=== PATIENT | female | born 1955 | race Caucasian/White ===

== ENCOUNTER 2023-08-06 17:51 | Emergency (ER) | payer MEDICARE, BC, SELFPAY ==
[2023-08-06] VITALS (32 sets, daily range): BP systolic 104–113; BP diastolic 44–69; PULSE 46–150; TEMP 36.8; O2SAT 97; BMI 22.3
--- NOTE | 2023-08-06 17:57 | XR_ITS ---
The [address] [address] Patient Name: HILARIO CHARLES MRN: [id number] date: 1955 Sex: F Assigned Patient Location: ER Current Patient Location: ER Accession/Order Number: [id number] Exam Date: 08/06/2023 19:10 Report Date: 08/06/2023 20:01 At the request of: ROMARIO LEVIN Procedure: XR chest 1V EXAM: XR chest 1V HISTORY: SOB COMPARISON: None. TECHNIQUE: Single AP radiograph of the chest FINDINGS: No pneumothorax or effusion. Patchy opacity at the right lower lobe could reflect an infectious process versus atelectasis. Normal heart size. No acute osseous abnormality. XR/XR chest 1V IMPRESSION: Patchy opacity of the right lower lobe may reflect developing infectious process or atelectasis. Electronically authenticated by: MADDY MARTINEZ Date: 08/06/2023 20:01
--- NOTE | 2023-08-06 17:57 | ECG_ITS ---
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
--- NOTE | 2023-08-06 18:01 | ED.GENADUL1 ---
HPI HPI - General Adult General Chief complaint: Upper Respiratory Infection Stated complaint: SOB Time Seen by Provider: 08/06/23 17:57 Source: patient and caregiver Mode of arrival: ambulance Limitations: no limitations History of Present Illness HPI narrative: Patient is a 68-year-old female with a history of COPD, diabetes who presents from the [facility] with concerns of altered mental status, hypotension. Patient states she lives at home until she developed a urinary tract infection and difficulty breathing. Patient reports being hospitalized at [facility] before being transferred to the [place]. Patient reports no pain or discomfort, states she is chronically short of breath. [facility] group home staff became concerned when her blood pressure was 80 systolic. Patient admits to harsh cough. She denies measurable fever. Patient is on oxygen 2 L/min chronically and has been up to 3 to To help with hypoxia. She had a ? Chest x-ray today showing multifocal infiltrates possibly viral and patient had lab work drawn but has not yet resulted. Patient is pleasant, alert and oriented to person and place and time and recent events, her blood pressure is improved after receiving a 500 mL bolus from the group home staff prior to transfer.Patient has no other concerns, reports she has a granddaughter graduating from [employer] this week. Onset (ago): day(s) Related Data Home Medications ?Medication ?Instructions ?Recorded ?Confirmed albuterol sulfate 90 mcg/actuation inhalation 08/06/23 aerosol inhaler (Ventolin HFA) alpha lipoic acid 600 mg capsule 600 mg PO DAILY 08/06/23 08/06/23 amantadine HCl 100 mg tablet mg 08/06/23 aspirin 81 mg capsule 81 mg PO DAILY 08/06/23 08/06/23 atorvastatin 40 mg tablet mg 08/06/23 calcium carbonate 600 mg-vitamin 1 tab PO DAILY 08/06/23 08/06/23 D3 5 mcg (200 unit) tablet (Calcium 600 + D(3)) cetirizine 10 mg tablet (24Hour 10 mg PO DAILY PRN allergy symptoms 08/06/23 08/06/23 Allergy) cholecalciferol (vitamin D3) 25 25 mcg PO DAILY 08/06/23 08/06/23 mcg (1,000 unit) capsule (Vitamin D3) cyclobenzaprine 10 mg tablet 10 mg PO DAILY 08/06/23 08/06/23 fluticasone fur. 100 mcg-umeclid 1 inh inhalation DAILY 08/06/23 08/06/23 62.5 mcg-vilant 25 mcg inhalat.powder (Trelegy Ellipta) furosemide 40 mg tablet 40 mg PO BID 08/06/23 08/06/23 furosemide 40 mg tablet (Lasix) 40 mg PO DAILY 08/06/23 08/06/23 hydrocodone-homatropine 5 mg-1.5 1 tab PO Q6H PRN pain 08/06/23 08/06/23 mg tablet insulin lispro 100 unit/mL 1 sliding scale dose subcut 08/06/23 08/06/23 subcutaneous pen (Humalog KwikPen USEASDIRECTD (U-100) Insulin) levetiracetam 250 mg tablet 250 mg PO BID 08/06/23 08/06/23 (Keppra) levothyroxine 150 mcg capsule 150 mcg PO DAILY 08/06/23 08/06/23 lisinopril 5 mg tablet 5 mg PO DAILY 08/06/23 08/06/23 loratadine 10 mg tablet (Allergy 10 mg PO DAILY 08/06/23 08/06/23 Relief (loratadine)) omega-3 fatty acids 1,000 mg PO DAILY 08/06/23 08/06/23 oxcarbazepine 300 mg tablet 300 mg PO TID 08/06/23 08/06/23 potassium chloride 20 mEq 20 meq PO DAILY 08/06/23 08/06/23 tablet,extended release (K-Tab) prednisone 20 mg tablet 20 mg PO DAILY 08/06/23 08/06/23 pregabalin 200 mg capsule (Lyrica) 200 mg PO TID 08/06/23 08/06/23 ropinirole 1 mg tablet 1 mg PO DAILY 08/06/23 08/06/23 umeclidinium 62.5 mcg-vilanterol 1 inh inhalation DAILY 08/06/23 08/06/23 25 mcg/actuation powdr for inhalation (Anoro Ellipta) Allergies Allergy/AdvReac Type Severity Reaction Status Date / Time Penicillins Allergy Severe Verified 08/06/23 17:57 Sulfa (Sulfonamide AdvReac Unknown Verified 08/06/23 19:01 Antibiotics) Opioid HPI Opioid Management Most Recent Opioid Data: No Data to Display Review of Systems ROS Constitutional Denies: fever or chills Eyes Denies: change in vision Ears, nose, mouth, and throat Denies: throat pain or neck pain Cardiovascular Denies: chest pain or palpitations Respiratory Reports: shortness of breath, cough and wheezing Gastrointestinal Denies: abdominal pain, nausea or vomiting Genitourinary Denies: painful urination or urinary frequency Musculoskeletal Denies: back pain, neck pain or extremity pain Integumentary/Breast Denies: rash, itching or redness Neurological Denies: headache or numbness in extremities Endocrine Denies: excessive urination Allergic/Immunologic Denies: hives Exam Narrative Exam Narrative: Nurses notes and vital signs reviewed and patient is not hypoxic on 3lpm Nasal canula. General: The patient appears well and in no apparent distress.Speaking in full sentences Patient is resting comfortably on cart. Skin: Warm, dry, no pallor noted. Head: Normocephalic, atraumatic Neck: Supple, trachea mid-line, no tenderness, no lymphadenopathy Eye: Pupils are equal, round and reactive to light, EOMI Ears, Nose, Mouth, and Throat: TM are clear, normal light reflex, oral mucosa is moist, no posterior oropharynx erythema or hypertrophy, uvula is mid-line Cardiovascular: Regular Rate and Rhythm Respiratory: Patient is in no distress, no accessory muscle use, lungs With slight expiratory wheeze , rhonci bilateral bases. Chest Wall: no tenderness, Denies pleuritic pain. Back: non-tender, no CVA tenderness Musculoskeletal: normal ROM, no tenderness, no swelling, Edema, Charcot foot noted GI: Normal bowel sounds, no tenderness to palpation, no masses appreciated. No rebound, guarding, or rigidity noted. Neurological: A&O x4 Psychiatric: Cooperative Constitutional Vital Signs, click to edit/add: Last Vital Signs Temp 98.3 F 08/06/23 17:52 Pulse 60 08/06/23 20:00 Resp 23 H 08/06/23 20:00 BP 113/54 08/06/23 18:00 Pulse Ox 97 08/06/23 18:20 O2 Del Method Nasal Cannula 08/06/23 18:15 O2 Flow Rate 2 08/06/23 18:15 Course Vital Signs Vital signs: Vital Signs Temperature 98.3 F 08/06/23 17:52 Pulse Rate 59 L 08/06/23 17:52 Respiratory Rate 20 08/06/23 17:52 Blood Pressure 104/49 08/06/23 17:52 Pulse Oximetry 97 08/06/23 17:52 Oxygen Delivery Method Room Air 08/06/23 17:52 Temperature 98.3 F 08/06/23 17:52 Pulse Rate 60 08/06/23 20:00 Respiratory Rate 23 H 08/06/23 20:00 Blood Pressure 113/54 08/06/23 18:00 Pulse Oximetry 97 08/06/23 18:20 Oxygen Delivery Method Nasal Cannula 08/06/23 18:15 Oxygen Delivery Flow Rate 2 08/06/23 18:15 Medical Decision Making MDM Narrative Medical decision making narrative: Patient presents with group home staff concerned about hypotension and bradycardia, patient's heart rate mid to upper 50s and occasionally 60. Blood pressure has improved after 500 mL IV fluid bolus. Patient is not hypoxic at current time and does not appear altered mentally. Given her recent history a sepsis lab evaluation will be checked. Patient is a full code.Patient reports she quit smoking with recent illness a few weeks ago. , She is in no distress resting semirecumbent. She denies feeling short of breath, her vitals have been stable. Unfortunately patient's kidney function appears worsened from her prior hospitalization and her calcium level appears extremely high. We are suspicious with her smoking history that there may be an underlying malignancy. Patient given 1 L IV fluids here, we repeating calcium level. Discussed case with hospitalist 8pm. who would like her calcium level improved prior to admission however I do not feel we will be able to lower it substantially just with IV hydration in the ER given her prior history of flash pulmonary edema and she may require additional long-term therapies. Patient agreeable with transfer back to [facility] and I have reached out to the hospitalist as they may be able to do dialysis or other treatments to help with her electrolyte dysfunction and further work up metabolically Spoke with Dr. AZEVEDO At [facility]. We discussed patient's elevated calcium, infiltrate on chest x-ray, IV antibiotics. Agreeable to transfer for further treatment and continuity of care. Medical Records Medical records reviewed: Yes I reviewed the patient's medical records Medical records narrative: Patient was admitted to [facility] on 07/25 and discharged on 07/29,Patient was admitted there with sepsis, COPD exacerbation, acute kidney failure, urinary retention,Achieved 3 days of IV ceftriaxone, IV Solu-Medrol, Hanson catheter, Which was able to be removed with voiding trial Was discharged to skilled facility on prednisone taper, Vital signs at discharge were pulse of 60, blood pressure 107/62. Pulse ox 94% 5.3, hemoglobin 10.7, platelets were 158. Sodium 137, potassium 3.8, carbon dioxide was 37, anion gap 8.8, BUN 24, creatinine 0.97. Lab Data Lab results reviewed: Yes I reviewed the patient's lab results Labs: Lab Results 08/06/23 08/06/23 08/06/23 Range/Units 18:19 18:21 20:12 WBC 13.7 H (4.0-11.0) 10^3/uL RBC 4.69 (4.20-5.40) 10^6/uL Hgb 13.7 (12.0-16.0) g/dL Hct 42.7 (36.0-48.0) % MCV 91.0 (81.0-99.0) fL MCH 29.2 (26.7-34.0) pg MCHC 32.1 (29.9-35.2) g/dL RDW 12.8 (11.0-15.0) % Plt Count 328 (150-450) 10^3/uL MPV 10.2 (9.5-13.5) fL Neut % (Auto) 86.5 H (43.0-75.0) % Lymph % (Auto) 7.7 L (20.5-60.0) % [place] % (Auto) 4.2 (1.7-12.0) % Eos % (Auto) 0.7 L (0.9-7.0) % Baso % (Auto) 0.4 (0.2-2.0) % Neut # (Auto) 11.8 H (1.4-6.5) 10^3/uL Lymph # (Auto) 1.1 L (1.2-3.8) 10^3/uL [place] # (Auto) 0.6 (0.3-0.8) 10^3/uL Eos # (Auto) 0.1 (0.0-0.7) 10^3/uL Baso # (Auto) 0.1 (0.0-0.1) 10^3/uL Abs Immat Gran (auto) 0.07 H (0.00-0.03) 10^3/uL Imm/Tot Granulo (auto) 0.5 (0.0-0.5) % PT 10.7 (9.0-11.6) sec INR 1.01 APTT 23.5 (22.3-36.2) sec VBG pH 7.401 (7.330-7.430) VBG pCO2 57.9 H (40.0-52.0) mmHg Sodium 133 L (136-145) mmol/L Potassium 4.5 (3.5-5.1) mmol/L Chloride 93 L (98-107) mmol/L Carbon Dioxide 35.8 H (21.0-32.0) mmol/L Anion Gap 8.7 BUN 67.0 H (7.0-18.0) mg/dL Creatinine 2.24 H (0.55-1.02) mg/dL Est GFR ( Amer) 26 L (>=60) Est GFR (Non-Af Amer) 22 L (>=60) BUN/Creatinine Ratio 29.9 Glucose 83 (74-106) mg/dL Lactate 1.4 (0.4-2.0) mmol/L Calcium 14.3 H* 12.8 H (8.5-10.1) mg/dL Total Bilirubin 0.5 (0.2-1.0) mg/dL AST 41 H (15-37) U/L ALT 96 H (14-59) U/L Alkaline Phosphatase 180 H (46-116) U/L Troponin I High Sens 34.0 (4.0-51.3) pg/mL NT-Pro-B Natriuret Pep 1103.0 H (<=900.0) pg/mL Total Protein 7.5 (6.4-8.2) g/dL Albumin 3.3 L (3.4-5.0) g/dL Globulin 4.2 g/dL Albumin/Globulin Ratio 0.8 Procalcitonin 0.08 (0.00-0.50) ng/mL Adenovirus (PCR) Not detected (NOT DETECTE) B. pertussis DNA (PCR) Not detected (NOT DETECTE) B.parapertussis DNA PCR Not detected (NOT DETECTE) C. pneumoniae DNA (PCR) Not detected (NOT DETECTE) Coronavirus Type OC43 Not detected (NOT DETECTE) Coronavirus Type HKU1 Not detected (NOT DETECTE) Coronavirus Type 229E Not detected (NOT DETECTE) Coronavirus Type NL63 Not detected (NOT DETECTE) Human Metapneumovir PCR Not detected (NOT DETECTE) Influenza Type A (PCR) Not detected (NOT DETECTE) Influenza Type B (PCR) Not detected (NOT DETECTE) M. pneumoniae (PCR) Not detected (NOT DETECTE) Parainfluenza PCR Not detected (NOT DETECTE) Parainfluenza 2 (PCR) Not detected (NOT DETECTE) Parainfluenza 3 (PCR) Not detected (NOT DETECTE) Parainfluenza 4 (PCR) Not detected (NOT DETECTE) RSV (RT-PCR) Not detected (NOT DETECTE) Entero/Rhino (PCR) Not detected (NOT DETECTE) SARS-CoV-2 (PCR) Not detected (NOT DETECTE) Imaging Data Chest x-ray: Radiologist's impression: ITS Impressions Chest X-Ray 08/06/23 17:57 IMPRESSION: Patchy opacity of the right lower lobe may reflect developing infectious process or atelectasis. Electronically authenticated by: MADDY MARTINEZ Date: 08/06/2023 20:01 ECG Data Attestation: I personally reviewed and interpreted this ECG as follows: Interpretation: EKG interpretation: Emergency Department physician interpretation, Sinus bradycardia 47, no ectopy, no ST segment elevation, normal axis. Discharge Plan Discharge Chief Complaint: Upper Respiratory Infection Clinical Impression: Acute kidney injury, COPD (chronic obstructive pulmonary disease), Hypercalcemia, Right lower lobe pneumonia, Hypotension Patient Disposition: Hospice - Medical Facility Time of Disposition Decision: 20:52 Discharge Location: [facility] Condition: Good Mode of Transportation: EMS Prescriptions / Home Meds: No Action amantadine HCl 100 mg tablet atorvastatin 40 mg tablet albuterol sulfate [Ventolin HFA] 90 mcg/actuation HFA aerosol inhaler INHALATION alpha lipoic acid 600 mg capsule 600 mg PO DAILY aspirin 81 mg capsule 81 mg PO DAILY calcium carbonate-vitamin D3 [Calcium 600 + D(3)] 600 mg-5 mcg (200 unit) tablet 1 tab PO DAILY cyclobenzaprine 10 mg tablet 10 mg PO DAILY furosemide 40 mg tablet 40 mg PO BID insulin lispro [Humalog KwikPen Insulin] 100 unit/mL insulin pen 1 sliding scale dose subcut USEASDIRECTD levetiracetam [Keppra] 250 mg tablet 250 mg PO BID levothyroxine 150 mcg capsule 150 mcg PO DAILY lisinopril 5 mg tablet 5 mg PO DAILY loratadine [Allergy Relief (loratadine)] 10 mg tablet 10 mg PO DAILY omega-3 fatty acids Capsule 1,000 mg PO DAILY oxcarbazepine 300 mg tablet 300 mg PO TID potassium chloride [K-Tab] 20 mEq tablet extended release 20 meq PO DAILY prednisone 20 mg tablet 20 mg PO DAILY Rx Instructions: days 11-21 of therapy pregabalin [Lyrica] 200 mg capsule 200 mg PO TID ropinirole 1 mg tablet 1 mg PO DAILY Trelegy Ellipta 100-62.5-25 mcg blister with device 1 inh inhalation DAILY cholecalciferol (vitamin D3) [Vitamin D3] 25 mcg (1,000 unit) capsule 25 mcg PO DAILY Anoro Ellipta 62.5-25 mcg/actuation blister with device 1 inh inhalation DAILY cetirizine [24Hour Allergy] 10 mg tablet 10 mg PO DAILY PRN (Reason: allergy symptoms) furosemide [Lasix] 40 mg tablet 40 mg PO DAILY hydrocodone-homatropine 5-1.5 mg tablet 1 tab PO Q6H PRN (Reason: pain) Print Language: Kazakh Referrals: SONG DICKENS DO [Primary Care Provider] - 1 week
[2023-08-06] MEDS: IPRATROPIUM/ALBUTEROL SULFATE 3 ML AMPUL.NEB IH (18:14)
[2023-08-06] MEDS: ALBUTEROL SULFATE 2.5 MG/3 ML VIAL NEB IH (18:15)
[2023-08-06] MEDS: 0.9 % SODIUM CHLORIDE 1,000 ML 999 ML IV (18:26)
[2023-08-06 18:40] LABS: Adenovirus NOT DETECTED (NOT DETECTE); Bordetella parapertussis NOT DETECTED (NOT DETECTE); Coronavirus 229E NOT DETECTED (NOT DETECTE); Coronavirus HKU1 NOT DETECTED (NOT DETECTE); Coronavirus NL63 NOT DETECTED (NOT DETECTE); Coronavirus OC43 NOT DETECTED (NOT DETECTE); Human Metapneumovirus NOT DETECTED (NOT DETECTE); Human Rhinovirus/Enterovirus NOT DETECTED (NOT DETECTE); Influenza A NOT DETECTED (NOT DETECTE); Influenza B NOT DETECTED (NOT DETECTE); Mycoplasma pneumoniae NOT DETECTED (NOT DETECTE); Parainfluenza Virus 1 NOT DETECTED (NOT DETECTE); Parainfluenza Virus 2 NOT DETECTED (NOT DETECTE); Parainfluenza Virus 3 NOT DETECTED (NOT DETECTE); Parainfluenza Virus 4 NOT DETECTED (NOT DETECTE); Respiratory Syncytial Virus NOT DETECTED (NOT DETECTE); SARS-CoV-2 NOT DETECTED (NOT DETECTE)
[2023-08-06 18:40] LABS: PCO2 VBG 57.9 mmHg (40.0-52.0); pH VBG 7.401 (7.330-7.430)
[2023-08-06 18:43] LABS: Basophils Absolute Auto 0.1 10^3/uL (0.0-0.1); Basophils Percent Auto 0.4 % (0.2-2.0); Eosinophils Absolute Auto 0.1 10^3/uL (0.0-0.7); Eosinophils Percent Auto 0.7 % (0.9-7.0); Hematocrit 42.7 % (36.0-48.0); Hemoglobin 13.7 g/dL (12.0-16.0); Immature Granulocytes Abs Auto 0.07 10^3/uL (0.00-0.03); Immature Granulocytes Pct Auto 0.5 % (0.0-0.5); Lymphocytes Absolute Auto 1.1 10^3/uL (1.2-3.8); Lymphocytes Percent Auto 7.7 % (20.5-60.0); Mean Corpuscular HGB Conc 32.1 g/dL (29.9-35.2); Mean Corpuscular Hemoglobin 29.2 pg (26.7-34.0); Mean Platelet Volume 10.2 fL (9.5-13.5); Monocytes Absolute Auto 0.6 10^3/uL (0.3-0.8); Monocytes Percent Auto 4.2 % (1.7-12.0); Neutrophils Absolute Auto 11.8 10^3/uL (1.4-6.5); Neutrophils Percent Auto 86.5 % (43.0-75.0); Platelet Count 328 10^3/uL (150-450); Red Blood Count 4.69 10^6/uL (4.20-5.40); Red Cell Distribution Width 12.8 % (11.0-15.0); White Blood Count 13.7 10^3/uL (4.0-11.0)
[2023-08-06 19:00] LABS: INR 1.01; Partial Thromboplastin Time 23.5 sec (22.3-36.2); Prothrombin Time 10.7 sec (9.0-11.6)
[2023-08-06 19:02] LABS: Lactate/Lactic Acid 1.4 mmol/L (0.4-2.0)
[2023-08-06 19:08] LABS: Alanine Aminotransferase 96 U/L (14-59); Albumin Globulin Ratio 0.8; Albumin Level 3.3 g/dL (3.4-5.0); Alkaline Phosphatase 180 U/L (46-116); Anion Gap 8.7; Aspartate Amino Transferase 41 U/L (15-37); BUN Creatinine Ratio 29.9; Bilirubin Total 0.5 mg/dL (0.2-1.0); Carbon Dioxide 35.8 mmol/L (21.0-32.0); Chloride 93 mmol/L (98-107); Estimated GFR (African America 26 (>=60); Estimated GFR (Non-African Ame 22 (>=60); Globulin 4.2 g/dL; Glucose 83 mg/dL (74-106); Potassium 4.5 mmol/L (3.5-5.1); Sodium 133 mmol/L (136-145); Total Protein 7.5 g/dL (6.4-8.2)
[2023-08-06 19:11] LABS: Calcium 14.3 mg/dL (8.5-10.1)
[2023-08-06 19:24] LABS: PROCALCITONIN 0.08 ng/mL (0.00-0.50)
[2023-08-06 20:28] LABS: Calcium 12.8 mg/dL (8.5-10.1)
[2023-08-06] MEDS: CEFTRIAXONE 1,000 MG in 0.9 % SODIUM CHLORIDE 50 ML 100 MG IV (21:10)
[2023-08-06] MEDS: AZITHROMYCIN 500 MG in 0.9 % SODIUM CHLORIDE 250 ML 250 MG IV (21:48)
== END 2023-08-06 22:35 | disposition short-term general hospital (02) ==
PROVIDERS: Personal Emergency Response Attendant; Emergency Provider Emergency Medicine; PCP Family Medicine
DX: J18.9 Pneumonia, unspecified organism (principal); N17.9 Acute kidney failure, unspecified; J44.0 Chronic obstructive pulmonary disease with (acute) lower respiratory infection; I95.9 Hypotension, unspecified; E83.52 Hypercalcemia; Z99.81 Dependence on supplemental oxygen; Z87.891 Personal history of nicotine dependence; Z20.822 Contact with and (suspected) exposure to COVID-19
CPT/HCPCS: 0202U; 36415; 71045; 80053; 82310; 82330; 82800; 83605; 83880; 84145; 84484; 85025; 85610; 85730; 87040; 93005; 94640; 96361; 96365; 96367; 99285; J0456

== ENCOUNTER 2023-09-13 14:58 | Outpatient (OUT) | payer MEDICARE, BC, SELFPAY ==
--- NOTE | 2023-09-13 15:06 | CT_ITS ---
The [address] [address] Patient Name: HILARIO CHARLES MRN: [id number] date: 1955 Sex: F Assigned Patient Location: CT Current Patient Location: Accession/Order Number: [id number] Exam Date: 09/13/2023 15:17 Report Date: 09/14/2023 07:32 At the request of: SONG DICKENS Procedure: CT chest wo con EXAMINATION: CT chest wo con HISTORY: Acute and Chronic Respiratory Failure With Hypoxia COMPARISON: No relevant comparison available. TECHNIQUE: Multi-planar CT images were created with IV contrast. Axial, Coronal, and Sagittal images. Dose reduction techniques were achieved by using automated exposure control and/or adjustment of mA and/or kV according to patient size and/or use of iterative reconstruction technique. FINDINGS: LUNGS: Tracheobronchial calcifications. Moderate diffuse bilateral centrilobular emphysema. Areas of soft tissue attenuation in both lung apices right greater than left. Pleural parenchymal scarring is favored. Scattered punctate pulmonary nodules, subcentimeter in size, nonspecific. PLEURA: No mass, effusion, or pneumothorax. VASCULATURE: No abnormality. NICOLE: Small calcified right hilar lymph nodes MEDIASTINUM: No pathologic lymphadenopathy CARDIAC: No enlargement or pericardial effusion Coronary arteries: Heavy calcifications AORTA: No aortic aneurysm. Moderate calcific atherosclerosis CHEST WALL: No mass or axillary adenopathy. BONES: No bone lesion or fracture. Exaggerated thoracic kyphosis. Mild diffuse degenerative changes LIMITED ABDOMEN: No suspicious findings. Limited images of the upper abdomen. OTHER: Negative. CT/CT chest wo con IMPRESSION: Moderate diffuse centrilobular emphysema Scattered subcentimeter pulmonary nodules and biapical pleural parenchymal scarring, nonspecific Electronically authenticated by: WILLIAN SWAIN Date: 09/14/2023 07:32
== END 2023-09-13 14:59 | disposition home or self-care (01) ==
LOC: CT 14:59
PROVIDERS: PCP Family Medicine; Visit Provider Family Medicine
DX: J96.21 Acute and chronic respiratory failure with hypoxia (principal); J44.1 Chronic obstructive pulmonary disease with (acute) exacerbation; J43.2 Centrilobular emphysema; R91.8 Other nonspecific abnormal finding of lung field
CPT/HCPCS: 71250

== ENCOUNTER 2023-09-15 18:51 | Inpatient (IN) | payer MEDICARE, BC, SELFPAY ==
[2023-09-15] VITALS (31 sets, daily range): BP systolic 112–141; BP diastolic 42–66; PULSE 57–131; TEMP 36.4–39.4; O2SAT 83–100; BMI 26.6; BMI 30.7
--- NOTE | 2023-09-15 18:55 | XR_ITS ---
The [place] [id number] Patient Name: HILARIO CHARLES MRN: [id number] date: 1955 Sex: F Assigned Patient Location: ED.MAIN Current Patient Location: ER Accession/Order Number: [id number] Exam Date: 09/15/2023 19:05 Report Date: 09/15/2023 19:48 At the request of: ISACC JOHNSON Procedure: XR chest 1V ONE-VIEW CHEST RADIOGRAPH, 09/15/2023 7:05 PM EDT COMPARISON: Chest, 08/06/2023. CLINICAL HISTORY: shortness of breath Findings and impression: 1. Changes of COPD with some crowding of bronchopulmonary vasculature in the mid to lower lung zones bilaterally. Minimal atelectasis seen in the left lung base. 2. Normal heart size. 3. No acute osseous abnormality. Electronically authenticated by: Ap BERNSTEIN Date: 09/15/2023 19:48
--- NOTE | 2023-09-15 18:55 | ECG_ITS ---
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
--- NOTE | 2023-09-15 18:57 | ED.SOB1 ---
HPI - SOB/Dyspnea General Chief Complaint: Fever Stated Complaint: respiratory d/t covid Time Seen by Provider: 09/15/23 18:55 Mode of arrival: ambulance History of Present Illness HPI Narrative: 68-year-old female to the emergency department chief complaint of shortness of breath. She is a resident at [facility]. She has a history of COPD. COVID-positive in the last 48 hours. She had fever today and rigors. They did not give her any antipyretics. She is normally on 3 L nasal cannula. She was saturating in the 80s on 4 L nasal cannula prompting her ED visit. EMS gave a DuoNeb treatment and Solu-Medrol in or out. Related Data Home Medications ?Medication ?Instructions ?Recorded ?Confirmed albuterol sulfate 90 mcg/actuation inhalation 08/06/23 aerosol inhaler (Ventolin HFA) alpha lipoic acid 600 mg capsule 600 mg PO DAILY 08/06/23 08/06/23 amantadine HCl 100 mg tablet mg 08/06/23 aspirin 81 mg capsule 81 mg PO DAILY 08/06/23 08/06/23 atorvastatin 40 mg tablet mg 08/06/23 calcium carbonate 600 mg-vitamin 1 tab PO DAILY 08/06/23 08/06/23 D3 5 mcg (200 unit) tablet (Calcium 600 + D(3)) cetirizine 10 mg tablet (24Hour 10 mg PO DAILY PRN allergy symptoms 08/06/23 08/06/23 Allergy) cholecalciferol (vitamin D3) 25 25 mcg PO DAILY 08/06/23 08/06/23 mcg (1,000 unit) capsule (Vitamin D3) cyclobenzaprine 10 mg tablet 10 mg PO DAILY 08/06/23 08/06/23 fluticasone fur. 100 mcg-umeclid 1 inh inhalation DAILY 08/06/23 08/06/23 62.5 mcg-vilant 25 mcg inhalat.powder (Trelegy Ellipta) furosemide 40 mg tablet 40 mg PO BID 08/06/23 08/06/23 furosemide 40 mg tablet (Lasix) 40 mg PO DAILY 08/06/23 08/06/23 hydrocodone-homatropine 5 mg-1.5 1 tab PO Q6H PRN pain 08/06/23 08/06/23 mg tablet insulin lispro 100 unit/mL 1 sliding scale dose subcut 08/06/23 08/06/23 subcutaneous pen (Humalog KwikPen USEASDIRECTD (U-100) Insulin) levetiracetam 250 mg tablet 250 mg PO BID 08/06/23 08/06/23 (Keppra) levothyroxine 150 mcg capsule 150 mcg PO DAILY 08/06/23 08/06/23 lisinopril 5 mg tablet 5 mg PO DAILY 08/06/23 08/06/23 loratadine 10 mg tablet (Allergy 10 mg PO DAILY 08/06/23 08/06/23 Relief (loratadine)) omega-3 fatty acids 1,000 mg PO DAILY 08/06/23 08/06/23 oxcarbazepine 300 mg tablet 300 mg PO TID 08/06/23 08/06/23 potassium chloride 20 mEq 20 meq PO DAILY 08/06/23 08/06/23 tablet,extended release (K-Tab) prednisone 20 mg tablet 20 mg PO DAILY 08/06/23 08/06/23 pregabalin 200 mg capsule (Lyrica) 200 mg PO TID 08/06/23 08/06/23 ropinirole 1 mg tablet 1 mg PO DAILY 08/06/23 08/06/23 umeclidinium 62.5 mcg-vilanterol 1 inh inhalation DAILY 08/06/23 08/06/23 25 mcg/actuation powdr for inhalation (Anoro Ellipta) Allergies Allergy/AdvReac Type Severity Reaction Status Date / Time Penicillins Allergy Severe Verified 08/06/23 17:57 Sulfa (Sulfonamide AdvReac Unknown Verified 08/06/23 19:01 Antibiotics) Review of Systems ROS Status of ROS 10 or more systems reviewed and unremarkable except as noted in history and below Exam Narrative Exam Narrative: VITALS: I have reviewed the triage vital signs. GENERAL: Elderly chronically ill-appearing adult female NEURO: Alert and oriented. Moves all extremities. Face is symmetric and expressive. EYES: PERRL. No scleral icterus or conjunctival injection. No discharge. HENT: Normocephalic, atraumatic. Hearing is grossly intact. Nares grossly patent and without discharge. Mucous membranes moist. NECK: No JVD. Patient moves neck without restriction. CARDIO: Rhythm regular. Normal rate. No murmur, rub, or gallop. Pulses equal bilaterally in the upper and lower extremity. No lower extremity edema. PULM: Wheezing. Rhonchi. Moderate conversational dyspnea. Mild increased work of breathing. GI/: Abdomen is soft and non-tender. Normoactive bowel sounds. EXTREMITIES: Symmetric muscle bulk. No joint swelling. No clubbing, cyanosis, or deformity. SKIN: Warm and dry. Normal turgor. No rash or lesions appreciated. PSYCH: Mood, affect, and interaction is appropriate to the setting. Constitutional Vital Signs, click to edit/add: Last Vital Signs Temp 103.0 F H 09/15/23 18:52 Pulse 88 09/15/23 18:52 Resp 18 09/15/23 18:52 BP 139/66 09/15/23 18:52 Pulse Ox 95 09/15/23 18:52 O2 Del Method Nasal Cannula 09/15/23 18:52 O2 Flow Rate 4 09/15/23 18:52 Course Vital Signs Vital signs: Vital Signs Temperature 103.0 F H 09/15/23 18:52 Pulse Rate 88 09/15/23 18:52 Respiratory Rate 18 09/15/23 18:52 Blood Pressure 139/66 09/15/23 18:52 Pulse Oximetry 95 09/15/23 18:52 Oxygen Delivery Method Nasal Cannula 09/15/23 18:52 Oxygen Delivery Flow Rate 4 09/15/23 18:52 Temperature 103.0 F H 09/15/23 18:52 Pulse Rate 88 09/15/23 18:52 Respiratory Rate 18 09/15/23 18:52 Blood Pressure 139/66 09/15/23 18:52 Pulse Oximetry 95 09/15/23 18:52 Oxygen Delivery Method Nasal Cannula 09/15/23 18:52 Oxygen Delivery Flow Rate 4 09/15/23 18:52 MDM - SOB/Dyspnea MDM Narrative Medical decision making narrative: 68-year-old female to the emergency department chief complaint of hypoxia, COVID-positive. Febrile, otherwise stable vitals. DuoNeb treatment is ordered for the patient. Septic workup is initiated. Care was signed out to Dr. Edward. Medical Records Attestation: I reviewed the patient's medical records. Discharge Plan Discharge Chief Complaint: Fever Clinical Impression: COPD (chronic obstructive pulmonary disease), Respiratory failure, COVID Patient Disposition: Still a Patient Prescriptions / Home Meds: No Action amantadine HCl 100 mg tablet atorvastatin 40 mg tablet albuterol sulfate [Ventolin HFA] 90 mcg/actuation HFA aerosol inhaler INHALATION alpha lipoic acid 600 mg capsule 600 mg PO DAILY aspirin 81 mg capsule 81 mg PO DAILY calcium carbonate-vitamin D3 [Calcium 600 + D(3)] 600 mg-5 mcg (200 unit) tablet 1 tab PO DAILY cyclobenzaprine 10 mg tablet 10 mg PO DAILY furosemide 40 mg tablet 40 mg PO BID insulin lispro [Humalog KwikPen Insulin] 100 unit/mL insulin pen 1 sliding scale dose subcut USEASDIRECTD levetiracetam [Keppra] 250 mg tablet 250 mg PO BID levothyroxine 150 mcg capsule 150 mcg PO DAILY lisinopril 5 mg tablet 5 mg PO DAILY loratadine [Allergy Relief (loratadine)] 10 mg tablet 10 mg PO DAILY omega-3 fatty acids Capsule 1,000 mg PO DAILY oxcarbazepine 300 mg tablet 300 mg PO TID potassium chloride [K-Tab] 20 mEq tablet extended release 20 meq PO DAILY prednisone 20 mg tablet 20 mg PO DAILY Rx Instructions: days 11-21 of therapy pregabalin [Lyrica] 200 mg capsule 200 mg PO TID ropinirole 1 mg tablet 1 mg PO DAILY Trelegy Ellipta 100-62.5-25 mcg blister with device 1 inh inhalation DAILY cholecalciferol (vitamin D3) [Vitamin D3] 25 mcg (1,000 unit) capsule 25 mcg PO DAILY Anoro Ellipta 62.5-25 mcg/actuation blister with device 1 inh inhalation DAILY cetirizine [24Hour Allergy] 10 mg tablet 10 mg PO DAILY PRN (Reason: allergy symptoms) furosemide [Lasix] 40 mg tablet 40 mg PO DAILY hydrocodone-homatropine 5-1.5 mg tablet 1 tab PO Q6H PRN (Reason: pain) Print Language: [place] Referrals: SONG DICKENS DO [Primary Care Provider] - 1 week
[2023-09-15 19:12] LABS: Basophils Percent Auto 0.3 % (0.2-2.0); Eosinophils Percent Auto 0.8 % (0.9-7.0); Hematocrit 32.2 % (36.0-48.0); Hemoglobin 10.3 g/dL (12.0-16.0); Immature Granulocytes Abs Auto 0.02 10^3/uL (0.00-0.03); Immature Granulocytes Pct Auto 0.6 % (0.0-0.5); Lymphocytes Absolute Auto 0.5 10^3/uL (1.2-3.8); Lymphocytes Percent Auto 12.9 % (20.5-60.0); Mean Corpuscular Hemoglobin 29.9 pg (26.7-34.0); Mean Corpuscular Volume 93.6 fL (81.0-99.0); Mean Platelet Volume 9.9 fL (9.5-13.5); Monocytes Absolute Auto 0.4 10^3/uL (0.3-0.8); Monocytes Percent Auto 11.5 % (1.7-12.0); Neutrophils Absolute Auto 2.6 10^3/uL (1.4-6.5); Neutrophils Percent Auto 73.9 % (43.0-75.0); Platelet Count 157 10^3/uL (150-450); Red Blood Count 3.44 10^6/uL (4.20-5.40); Red Cell Distribution Width 15.2 % (11.0-15.0); White Blood Count 3.6 10^3/uL (4.0-11.0)
[2023-09-15] MEDS: KETOROLAC TROMETHAMINE 30 MG/ML VIAL 15 MG IVP (19:18)
[2023-09-15] MEDS: ACETAMINOPHEN 325 MG TABLET 650 MG PO (19:18)
[2023-09-15 19:21] LABS: Alanine Aminotransferase 49 U/L (14-59); Albumin Globulin Ratio 0.9; Albumin Level 3.1 g/dL (3.4-5.0); Alkaline Phosphatase 124 U/L (46-116); Aspartate Amino Transferase 44 U/L (15-37); BUN Creatinine Ratio 22.1; Bilirubin Total 0.4 mg/dL (0.2-1.0); Calcium 7.9 mg/dL (8.5-10.1); Carbon Dioxide 33.9 mmol/L (21.0-32.0); Chloride 101 mmol/L (98-107); Estimated GFR (African America 49 (>=60); Estimated GFR (Non-African Ame 40 (>=60); Globulin 3.4 g/dL; Glucose 113 mg/dL (74-106); Potassium 3.9 mmol/L (3.5-5.1); Sodium 139 mmol/L (136-145); Total Protein 6.5 g/dL (6.4-8.2)
[2023-09-15 19:24] LABS: INR 1.01; Prothrombin Time 10.7 sec (9.0-11.6)
[2023-09-15 19:29] LABS: Troponin I High Sensitivity 21.3 pg/mL (4.0-51.3)
[2023-09-15] MEDS: IPRATROPIUM/ALBUTEROL SULFATE 3 ML AMPUL.NEB IH (19:45)
[2023-09-15 20:20] LABS: Bilirubin Urine NEGATIVE (NEGATIVE); Blood Urine NEGATIVE (NEGATIVE); Clarity Urine CLEAR (CLEAR); Color Urine LT. YELLOW (YELLOW); Glucose Urine UA NEGATIVE (NEGATIVE); Ketones Urine NEGATIVE (NEGATIVE); Leukocyte Esterase Urine NEGATIVE (NEGATIVE); Nitrite Urine NEGATIVE (NEGATIVE); Protein Urine NEGATIVE (NEG/TRACE); Urobilinogen Urine 0.2 EU/dL (0.2-1.0)
[2023-09-15 20:23] LABS: Urine Microscopic Indicated NO
--- NOTE | 2023-09-15 20:33 | PC.NURSE ---
Pulse Ox. 98-99% on 6 LPM via simple mask. Placed back on oxygen at 3 LPM/NC (home oxygen order) and pulse ox. 92%.
[2023-09-15 23:34] LABS: Lactate Dehydrogenase 251 U/L (81-234)
[2023-09-15 23:37] LABS: PROCALCITONIN 0.17 ng/mL (0.00-0.50)
[2023-09-15 23:45] LABS: C Reactive Protein 3.76 mg/dL (<=0.50)
[2023-09-15] MEDS: ALBUTEROL SULFATE 200 PUFF/6.7 GM INHALER IH (23:55)
[2023-09-16] VITALS (10 sets, daily range): BP systolic 109–130; BP diastolic 54–64; PULSE 47–75; TEMP 36–36.7; O2SAT 91–100
--- NOTE | 2023-09-16 00:27 | CT_ITS ---
[address] [address] Patient Name: HILARIO CHARLES MRN: [id number] date: 1955 Sex: F Assigned Patient Location: Current Patient Location: Accession/Order Number: [id number] Exam Date: 09/16/2023 02:18 Report Date: 09/16/2023 03:33 At the request of: MELITA MCNAIR Procedure: CT angio chest EXAM: CT angio chest HISTORY: Cold with positive. Acute hypoxic resp failure; Elev d-dimer r/o PE COMPARISON: None. TECHNIQUE: Precontrast images obtained for establishing contrast bolus. Postcontrast imaging obtained from thoracic inlet to upper abdomen with coronal and sagittal reformatted images. MIP (maximum intensity projection) images or 3D post processing was performed. On a separate workstation, 3-D reconstructions obtained of the thoracic aorta. Dose reduction techniques were achieved by using automated exposure control and/or adjustment of mA and/or kV according to patient size and/or use of iterative reconstruction technique. TECHNIQUE: 100 mL Omnipaque 350 IV. FINDINGS: Bolus opacification of the pulmonary arteries was adequate for purposes of diagnosis. There is no central, lobar, or segmental pulmonary arterial filling defect to suggest pulmonary embolus. The thoracic aorta is normal in caliber. No aneurysm or dissection. There is moderate scattered calcific plaque throughout the aortic arch scattered throughout of the descending thoracic aorta to a lesser degree extending to the upper abdominal aorta. Bilateral lung hyperinflation. COPD changes with scattered pulmonary emphysematous disease with emphysematous blebs throughout the upper lobes mostly centrilobular in nature with a few paraseptal blebs. There is biapical pleural thickening and scarring and bibasilar lung scarring with some dependent bibasilar lung atelectasis. No acute pulmonary consolidation or acute lung infiltrate. No mass or nodule. No pneumothorax or pleural effusion. There is some mild chronic interstitial changes at lung bases. No hilar or mediastinal lymphadenopathy. Cardiac chambers are normal in size. No pericardial effusion. Calcifications of mitral valve and annulus noted. Mild calcification of aortic valve. Minor scattered coronary artery calcific disease. Age-related tracheobronchial wall calcifications. No overt pulmonary venous congestion. No acute upper abdominal findings. Small hiatal hernia. No acute osseous findings. Old healed sternal body fracture. No acute fracture. No lytic or blastic bone lesion. CT/CT angio chest IMPRESSION: 1. Negative for acute PE. 2. Atherosclerotic changes of the thoracic aorta without dissection or aneurysm. 3. COPD and pulmonary emphysematous blebs with hyperinflation of lung. Dependent atelectasis. No acute consolidation or other acute or concerning lung parenchymal abnormality. Correlate for acute COPD exacerbation. 4. Other chronic findings as discussed. Electronically authenticated by: MYRON GOETZ Date: 09/16/2023 03:33
[2023-09-16] MEDS: ACETAMINOPHEN 325 MG TABLET 650 MG PO (01:00)
[2023-09-16] MEDS: 0.9 % SODIUM CHLORIDE 1,000 ML 100 ML IV (01:01)
[2023-09-16] MEDS: DEXAMETHASONE 4 MG TABLET 6 MG PO ×2 (01:02→09:42)
[2023-09-16 01:33] LABS: Adenovirus NOT DETECTED (NOT DETECTE); Bordetella parapertussis NOT DETECTED (NOT DETECTE); Coronavirus 229E NOT DETECTED (NOT DETECTE); Coronavirus HKU1 NOT DETECTED (NOT DETECTE); Coronavirus NL63 NOT DETECTED (NOT DETECTE); Coronavirus OC43 NOT DETECTED (NOT DETECTE); Human Metapneumovirus NOT DETECTED (NOT DETECTE); Human Rhinovirus/Enterovirus NOT DETECTED (NOT DETECTE); Influenza A NOT DETECTED (NOT DETECTE); Influenza B NOT DETECTED (NOT DETECTE); Mycoplasma pneumoniae NOT DETECTED (NOT DETECTE); Parainfluenza Virus 1 NOT DETECTED (NOT DETECTE); Parainfluenza Virus 2 NOT DETECTED (NOT DETECTE); Parainfluenza Virus 3 NOT DETECTED (NOT DETECTE); Parainfluenza Virus 4 NOT DETECTED (NOT DETECTE); Respiratory Syncytial Virus NOT DETECTED (NOT DETECTE)
[2023-09-16] MEDS: ROPINIROLE HCL 1 MG TABLET PO (01:43)
[2023-09-16] MEDS: PREGABALIN 100 MG CAPSULE PO ×2 (01:43→10:06)
[2023-09-16] MEDS: OXcarbazepine 150 MG TABLET PO (01:43)
[2023-09-16 02:15] LABS: SARS-CoV-2 DETECTED (NOT DETECTE)
[2023-09-16] MEDS: REMDESIVIR 200 MG in 0.9 % SODIUM CHLORIDE 250 ML 250 MG IV (02:45)
[2023-09-16 06:16] LABS: Hemoglobin 10.6 g/dL (12.0-16.0); Immature Granulocytes Abs Auto 0.01 10^3/uL (0.00-0.03); Immature Granulocytes Pct Auto 0.4 % (0.0-0.5); Lymphocytes Absolute Auto 0.5 10^3/uL (1.2-3.8); Lymphocytes Percent Auto 17.3 % (20.5-60.0); Mean Corpuscular HGB Conc 32.1 g/dL (29.9-35.2); Mean Corpuscular Hemoglobin 30.1 pg (26.7-34.0); Mean Corpuscular Volume 93.8 fL (81.0-99.0); Mean Platelet Volume 9.8 fL (9.5-13.5); Monocytes Absolute Auto 0.1 10^3/uL (0.3-0.8); Monocytes Percent Auto 4.5 % (1.7-12.0); Neutrophils Absolute Auto 2.1 10^3/uL (1.4-6.5); Neutrophils Percent Auto 77.8 % (43.0-75.0); Platelet Count 161 10^3/uL (150-450); Red Blood Count 3.52 10^6/uL (4.20-5.40); White Blood Count 2.7 10^3/uL (4.0-11.0)
[2023-09-16 06:32] LABS: PCO2 VBG 53.1 mmHg (40.0-52.0); pH VBG 7.377 (7.330-7.430)
[2023-09-16] MEDS: LEVOTHYROXINE SODIUM 75 MCG TABLET 150 MCG PO (06:33)
[2023-09-16 06:49] LABS: Troponin I High Sensitivity 18.6 pg/mL (4.0-51.3)
[2023-09-16 06:50] LABS: Alanine Aminotransferase 46 U/L (14-59); Albumin Globulin Ratio 0.9; Albumin Level 3.2 g/dL (3.4-5.0); Alkaline Phosphatase 121 U/L (46-116); Anion Gap 9.8; Aspartate Amino Transferase 45 U/L (15-37); BUN Creatinine Ratio 26.3; Bilirubin Total 0.3 mg/dL (0.2-1.0); Calcium 8.1 mg/dL (8.5-10.1); Chloride 99 mmol/L (98-107); Estimated GFR (African America 48 (>=60); Estimated GFR (Non-African Ame 39 (>=60); Globulin 3.6 g/dL; Glucose 147 mg/dL (74-106); Potassium 3.8 mmol/L (3.5-5.1); Sodium 137 mmol/L (136-145); Total Protein 6.8 g/dL (6.4-8.2)
--- NOTE | 2023-09-16 09:36 | SWNOTE1 ---
SW reached out to Carmen at [facility] and pt is there skilled. SHARON let doctor know.
[2023-09-16] MEDS: ALBUTEROL SULFATE 200 PUFF/6.7 GM INHALER IH (09:39)
[2023-09-16] MEDS: BUDESONIDE 0.5 MG/2 ML AMPULE NEB IH (09:39)
[2023-09-16] MEDS: ASPIRIN 81 MG TABLET.DR PO (09:43)
[2023-09-16] MEDS: LEVETIRACETAM 250 MG TABLET PO (09:43)
[2023-09-16] MEDS: ENOXAPARIN SODIUM 30 MG/0.3 ML SYRINGE SUBQ (09:43)
[2023-09-16] MEDS: CETIRIZINE HCL 10 MG TABLET PO (09:44)
[2023-09-16] MEDS: ATORVASTATIN CALCIUM 40 MG TABLET PO (09:44)
[2023-09-16] MEDS: TIZANIDINE HCL 4 MG TABLET PO (09:44)
[2023-09-16] MEDS: AMANTADINE HCL 100 MG CAPSULE PO (09:44)
[2023-09-16] MEDS: OXcarbazepine 300 MG TABLET 150 MG PO (10:08)
--- NOTE | 2023-09-16 10:42 | SWNOTE1 ---
SW met with pt to discuss dc needs. Pt is from [facility]. She voiced she has been there for about 7/8 weeks. She stated she just had a home visit done by [facility] and was close to discharging. She now has had a set back due to covid. She voiced she has to go back and get stronger. Pt used a wheelchair and a walker. At [facility] she has been walking with walker. Pt does wear 2 liters of oxygen at home and has an inogen. At this time pt's discharge plan is to return to [facility] once medically stable for discharge. SW to follow as needed. Important Message from Medicare reviewed and discussed with patient. Pt. verbalized understanding and signed the form. Original given to patient and copy placed in patient?s chart.
--- NOTE | 2023-09-16 10:47 | SWNOTE1 ---
Correction to previous note, pt wears 3 liters at home.
--- NOTE | 2023-09-16 11:03 | SWNOTE1 ---
SHARON spoke with case management and pt will be discharged back to [facility] today. SHARON sent email to Carmen at [facility] in regards to transport, waiting to hear back if [facility] can trasnport pt.
--- NOTE | 2023-09-16 11:20 | PM.HP ---
HPI H&P: HPI History of Present Illness Chief complaint: respiratory d/t covid Narrative: 68 y/o female to ER with SOB. History of COPD on 3 LPM currently at SNF. Recent fever and increased WOB. Positive for covid few days ago and started oral medication. Noticed increased work of breathing and SpO2 in 80s on 3 LPM and to ER. Temp 103. Respiratory panel positive for covid. Initially improved on 4 LPM then developed worsening hypoxia and placed on 6 LPM. CTA negative for PE and no infiltrate, showed chronic COPD changes. Admitted for treatment. Started remdesivir, decadron, and DuoNeb. Resumed home medication. Feels much improved this am. Chest not as tight and feels back to baseline. Back to usual 3 LPM. Opioid HPI Opioid Management Most Recent Pain and Opioid Data: Last Pain Scale 1 09/16/23 02:25 Last Pain Assessment 09/16/23 10:00 Last MAR Pain Assessment 09/16/23 02:25 Last ORT Total Score 0 09/15/23 23:48 Last ORT Risk Category Low Risk 09/15/23 23:48 Review of Systems ROS Constitutional Reports: fever, chills and fatigue Cardiovascular Denies: chest pain, palpitations or edema Respiratory Reports: shortness of breath and cough; Denies: wheezing Gastrointestinal Denies: abdominal pain, nausea, vomiting or diarrhea Genitourinary Denies: painful urination [facility] Medical History (Updated 09/16/23 @ 09:23 by Aleksandar Becerra MD) Chronic hypoxic respiratory failure ?J96.11 - Chronic respiratory failure with hypoxia (ICD-10) Acute kidney injury ?N17.9 - Acute kidney failure, unspecified (ICD-10) COPD (chronic obstructive pulmonary disease) ?J44.9 - Chronic obstructive pulmonary disease, unspecified (ICD-10) Hypercalcemia ?E83.52 - Hypercalcemia (ICD-10) Right lower lobe pneumonia ?J18.9 - Pneumonia, unspecified organism (ICD-10) Hypotension ?I95.9 - Hypotension, unspecified (ICD-10) Respiratory failure ?J96.90 - Respiratory failure, unspecified, unspecified whether with hypoxia or hypercapnia (ICD-10) Nonrheumatic aortic (valve) insufficiency ?I35.1 - Nonrheumatic aortic (valve) insufficiency (ICD-10) Nausea ?R11.0 - Nausea (ICD-10) Weakness ?R53.1 - Weakness (ICD-10) Cough ?R05.9 - Cough, unspecified (ICD-10) Wheezing ?R06.2 - Wheezing (ICD-10) Shortness of breath ?R06.02 - Shortness of breath (ICD-10) Urinary retention ?R33.9 - Retention of urine, unspecified (ICD-10) Acute respiratory distress ?R06.03 - Acute respiratory distress (ICD-10) Sleep apnea ?G47.30 - Sleep apnea, unspecified (ICD-10) Vitamin D deficiency ?E55.9 - Vitamin D deficiency, unspecified (ICD-10) Hyperlipidemia ?E78.5 - Hyperlipidemia, unspecified (ICD-10) Hypothyroidism ?E03.9 - Hypothyroidism, unspecified (ICD-10) Neuropathy ?G62.9 - Polyneuropathy, unspecified (ICD-10) Myocardial infarction type 2 ?I21.A1 - Myocardial infarction type 2 (ICD-10) Acute kidney failure ?N17.9 - Acute kidney failure, unspecified (ICD-10) Pneumonia ?J18.9 - Pneumonia, unspecified organism (ICD-10) Acute cystitis without hematuria ?N30.00 - Acute cystitis without hematuria (ICD-10) Sepsis ?A41.9 - Sepsis, unspecified organism (ICD-10) Family History (Updated 09/16/23 @ 00:14 by Johanny Berry) Mother Family history of CHF (congestive heart failure) Family history of COPD (chronic obstructive pulmonary disease) Family history of cancer Family history of hypertension Family history of myocardial infarction Social History (Updated 09/16/23 @ 00:15 by Johanny Berry) Within the past year, how often did you have a drink containing alcohol: never Score interpretation: A score less than 3 is consistent with normal alcohol consumption. Smoking status: Former smoker Non-prescribed substance use: denies use Previous occupational history: retired Highest level of school completed/degree received: some college, no degree Are you now , , , , never or living with a partner: In a typical week, how many times do you talk on the telephone with family, friends, or neighbors: 3 or more times per week How often do you get together with friends or relatives: 3 or more times per week How often do you attend taoism or church services: never Do you belong to any clubs or organizations such as taoism groups unions, fraternal or athletic groups, or school groups: no Total score: 1 Score interpretation: A score of less than or equal to 1 indicates the most socially isolated. Little interest or pleasure in doing things: not at all Feeling down, depressed, or hopeless: not at all Feel stressed/tense/nervous/anxious/difficulty sleeping: not at all Do you think of yourself as: straight/heterosexual Gender Identity: female Meds Home Medications and Allergies Home Medications ?Medication ?Instructions ?Recorded ?Confirmed ?Type albuterol sulfate 90 mcg/actuation 1 inh inhalation Q8H 08/06/23 09/15/23 History aerosol inhaler (Ventolin HFA) alpha lipoic acid 600 mg capsule 600 mg PO TID 08/06/23 09/15/23 History amantadine HCl 100 mg tablet 100 mg PO DAILY 08/06/23 09/15/23 History aspirin 81 mg capsule 81 mg PO DAILY 08/06/23 09/15/23 History atorvastatin 40 mg tablet 40 mg PO DAILY 08/06/23 09/15/23 History cetirizine 10 mg tablet (24Hour 10 mg PO DAILY allergy symptoms 08/06/23 09/15/23 History Allergy) fluticasone fur. 100 mcg-umeclid 1 inh inhalation DAILY 08/06/23 09/15/23 History 62.5 mcg-vilant 25 mcg inhalat.powder (Trelegy Ellipta) furosemide 40 mg tablet 40 mg PO BID 08/06/23 09/15/23 History furosemide 40 mg tablet (Lasix) 40 mg PO DAILY 08/06/23 09/15/23 History hydrocodone-homatropine 5 mg-1.5 1 tab PO Q6H PRN pain 08/06/23 09/15/23 History mg tablet levetiracetam 250 mg tablet 250 mg PO BID 08/06/23 09/15/23 History (Keppra) levothyroxine 150 mcg capsule 150 mcg PO DAILY 08/06/23 09/15/23 History omega-3 fatty acids 1,000 mg PO DAILY 08/06/23 09/15/23 History oxcarbazepine 300 mg tablet 150 mg PO TID 08/06/23 09/15/23 History potassium chloride 20 mEq 20 meq PO BID 08/06/23 09/15/23 History tablet,extended release (K-Tab) ropinirole 1 mg tablet 1 mg PO .q hs 08/06/23 09/16/23 History guaifenesin 600 mg tablet, 600 mg PO BID PRN cough 09/15/23 09/15/23 History extended release 12 hr (Mucinex) pregabalin 100 mg capsule (Lyrica) 100 mg PO TID 09/15/23 09/15/23 History tizanidine 4 mg capsule (Zanaflex) 4 mg PO DAILY 09/15/23 09/15/23 History acetaminophen 325 mg tablet (Aphen) 650 mg PO Q6H PRN pain 09/16/23 09/16/23 History amlodipine 5 mg tablet 5 mg PO .q am 09/16/23 09/16/23 History insulin lispro 100 unit/mL 1 sliding scale dose subcut ACHS 09/16/23 09/16/23 History subcutaneous pen (Humalog KwikPen (U-100) Insulin) molnupiravir 200 mg capsule (EUA) 800 mg PO Q12H 09/16/23 09/16/23 History (Lagevrio) prednisone 10 mg tablets in a dose 10 mg PO DAILY #39 ea 09/16/23 Rx pack Allergies Allergy/AdvReac Type Severity Reaction Status Date / Time Penicillins Allergy Severe Verified 08/06/23 17:57 Sulfa (Sulfonamide AdvReac Unknown Verified 08/06/23 19:01 Antibiotics) Exam Constitutional Vital Signs, click to edit/add: Last Vital Signs Temp 98.0 F 09/16/23 08:00 Pulse 61 09/16/23 10:00 Resp 18 09/16/23 09:40 BP 117/54 09/16/23 08:00 Pulse Ox 97 09/16/23 09:40 O2 Del Method Nasal Cannula 09/16/23 09:40 O2 Flow Rate 3 09/16/23 09:40 Documenting provider has reviewed patient's vital signs: yes Common normals: no apparent distress, oriented x3 and alert HENMT Common normals: normocephalic Eye Common normals: PERRL and EOMs intact bilaterally Respiratory Common normals: normal respiratory effort Auscultation: wheezes scattered wheezes and diminished lung sounds bilateral Cardio Common normals: regular rate, regular rhythm, no gallops, no murmurs and no rub GI Common normals: Normal to inspection, nondistended, normoactive bowel sounds present and non-tender Extremity Common normals: no pedal edema Results Labs Labs: Short CBC 09/15/23 09/16/23 Range/Units 18:52 05:59 WBC 3.6 L 2.7 L (4.0-11.0) 10^3/uL Hgb 10.3 L 10.6 L (12.0-16.0) g/dL Hct 32.2 L 33.0 L (36.0-48.0) % Plt Count 157 161 (150-450) 10^3/uL BMP 09/15/23 09/16/23 18:52 05:59 Sodium 139 137 Potassium 3.9 3.8 Chloride 101 99 Carbon Dioxide 33.9 H 32.0 BUN 29.0 H 35.0 H Creatinine 1.31 H 1.33 H Glucose 113 H 147 H Calcium 7.9 L 8.1 L Liver Function 09/15/23 09/16/23 Range/Units 18:52 05:59 Total Bilirubin 0.4 0.3 (0.2-1.0) mg/dL AST 44 H 45 H (15-37) U/L ALT 49 46 (14-59) U/L Alkaline Phosphatase 124 H 121 H (46-116) U/L Albumin 3.1 L 3.2 L (3.4-5.0) g/dL Urine 09/15/23 Range/Units 20:10 Urine Color Lt. yellow (YELLOW) Urine Clarity Clear (CLEAR) Urine pH 6.0 (5.0-9.0) Ur Specific [place] 1.010 (1.005-1.025) Urine Protein Negative (NEG/TRACE) mg/dL Urine Glucose (UA) Negative (NEGATIVE) mg/dL ABG ABG results: 09/16/23 05:59 VBG pH 7.377 VBG pCO2 53.1 H Assessment and Plan Assessment and Plan (1) COVID: (2) COPD with exacerbation: (3) Acute and chronic respiratory failure with hypoxia: (4) Type 2 diabetes mellitus: (5) Hypertension: (6) CKD stage 3b, GFR 30-44 ml/min: (7) CAD (coronary artery disease): Plan Presented with acute on chronic respiratory failure and COPD exacerbation. Patient recovered faster than anticipated. SOB much improved and back to baseline. Back to usual 3 LPM. Discharge back to SNF. Will resume medication as directed. Add prednisone tapered over 12 days. Will need to monitor BS and SpO2. Resume PT.
--- NOTE | 2023-09-16 11:22 | SWNOTE1 ---
[facility] does not have transport today. [facility] will not transport due to covid positive pt. SHARON called [facility] and pt would have to pay up front for wheelchair van. With covid and oxygen pt can go by stretcher. SHARON set up [facility] stretcher for 1:30pm. SHARON completed paperwork. SHARON let [facility] and nursing know time. SHARON sent over dc med rec to [facility] and took packet to the floor.
--- NOTE | 2023-09-16 11:23 | SWNOTE1 ---
Pt is returning to [facility] skilled.
--- NOTE | 2023-09-16 11:30 | CM.NOTE ---
10:[address] Becerra. Dr. Becerra discussed labs and CT scan results with Conchis. Conchis is currently at [facility] and on O2 at [address] Becerra asked Conchis if she feels like she is back to her baseline and she said yes and Ok with discharge back to [facility]. Plan is for discharge back to [facility] today on po steroids and resume covid med.
[2023-09-16 12:16] LABS: Glucometer 115 mg/dL (74-106)
== END 2023-09-16 14:17 | DRG 189 ==
LOC: ER 20:21 → MS 09-16 07:04
PROVIDERS: Registered Nurse; Student in an Organized Health Care Education/Training Program; Admitting Provider Family Medicine; Emergency Provider Internal Medicine; PCP Family Medicine; Visit Provider Family Medicine
DX: J96.21 Acute and chronic respiratory failure with hypoxia (principal); U07.1 COVID-19; J44.1 Chronic obstructive pulmonary disease with (acute) exacerbation; Z99.81 Dependence on supplemental oxygen; E03.9 Hypothyroidism, unspecified; E78.5 Hyperlipidemia, unspecified; I12.9 Hypertensive chronic kidney disease with stage 1 through stage 4 chronic kidney disease, or unspecified chronic kidney disease; E11.22 Type 2 diabetes mellitus with diabetic chronic kidney disease; R91.8 Other nonspecific abnormal finding of lung field; I25.2 Old myocardial infarction; Z87.01 Personal history of pneumonia (recurrent); E11.40 Type 2 diabetes mellitus with diabetic neuropathy, unspecified; N18.32 Chronic kidney disease, stage 3b; I25.10 Atherosclerotic heart disease of native coronary artery without angina pectoris; Z87.891 Personal history of nicotine dependence; Z79.82 Long term (current) use of aspirin; Z79.4 Long term (current) use of insulin; Z79.890 Hormone replacement therapy
CPT/HCPCS: 0202U; 36415; 71045; 71250; 71275; 80053; 81003; 82728; 82800; 83605; 83615; 83880; 84145; 84484; 85025; 85378; 85610; 85730; 86140; 87040; 93005; 94640; 94761; 96361; 96365; 96372; 96375; 99284; G0328; J0248; J1650; J1885; J8540; Q9967

== ENCOUNTER 2023-09-17 13:05 | Inpatient (IN) | payer MEDICARE, BC, SELFPAY ==
[2023-09-17] VITALS (23 sets, daily range): BP systolic 101–204; BP diastolic 55–111; PULSE 53–102; RESP 16; TEMP 36.5–37.3; O2SAT 84–98; BMI 30.2; BMI 23.5
--- NOTE | 2023-09-17 13:10 | XR_ITS ---
The [address] [address] Patient Name: HILARIO CHARLES MRN: [id number] date: 1955 Sex: F Assigned Patient Location: ED.MAIN Current Patient Location: ED.MAIN Accession/Order Number: [id number] Exam Date: 09/17/2023 13:22 Report Date: 09/17/2023 15:07 At the request of: SHAYY BURTON Procedure: XR chest 1V EXAM: XR chest 1V REASON FOR EXAM: sob. TECHNIQUE: Single portable view the chest. COMPARISON: [facility], most recent 09/15/2023. FINDINGS: Interval progression of bibasilar opacities, could be pneumonia or edema. Heart size is stable. No pleural effusion or pneumothorax. XR/XR chest 1V IMPRESSION: Progression of bibasilar opacities, could be edema or pneumonia Electronically authenticated by: GODWIN CHUN Date: 09/17/2023 15:07
--- NOTE | 2023-09-17 13:10 | ECG_ITS ---
The [facility] Test Date: 2023-09-17 Pat Name: HILARIO CHARLES Department: Room: - Gender: Female Acds Block 1 Operator: : 1955 Requested By: SONG DICKENS Order Number: [id number] Reading MD: ANGÉLICA LEDESMA Measurements Intervals Trilla Rate: 89 P: 90 NH: 164 QRS: 205 QRSD: 110 T: 90 QT: 348 QTc: 395 Interpretive Statements 1100 Sinus rhythm Possible lateral wall ischemia Electronically Signed On 09-18-2023 6:55:33 EDT by ANGÉLICA LEDESMA
--- NOTE | 2023-09-17 13:17 | ED.SOB1 ---
HPI - SOB/Dyspnea General Chief Complaint: Shortness of Breath/Dyspnea Stated Complaint: SHORTNESS OF BREATH Time Seen by Provider: 09/17/23 13:10 Mode of arrival: ambulance History of Present Illness HPI Narrative: The patient diagnosed with COVID-19 on Tuesday which is almost 4 days ago is coming to us with shortness of breath that has been getting worse over the last few days. The patient was found to have respiratory distress and was placed on a non rebreather by EMS ----the patient it was noted that he was just discharged yesterday from the hospital after being admitted for respiratory distress The patient also have a cough and she have a history of COPD The patient in respiratory distress upon arrival and she is tachypneic which will limit our history of present illness at the moment Related Data Home Medications ?Medication ?Instructions ?Recorded ?Confirmed albuterol sulfate 90 mcg/actuation 1 inh inhalation Q8H 08/06/23 09/15/23 aerosol inhaler (Ventolin HFA) alpha lipoic acid 600 mg capsule 600 mg PO TID 08/06/23 09/15/23 amantadine HCl 100 mg tablet 100 mg PO DAILY 08/06/23 09/15/23 aspirin 81 mg capsule 81 mg PO DAILY 08/06/23 09/15/23 atorvastatin 40 mg tablet 40 mg PO DAILY 08/06/23 09/15/23 cetirizine 10 mg tablet (24Hour 10 mg PO DAILY allergy symptoms 08/06/23 09/15/23 Allergy) fluticasone fur. 100 mcg-umeclid 1 inh inhalation DAILY 08/06/23 09/15/23 62.5 mcg-vilant 25 mcg inhalat.powder (Trelegy Ellipta) furosemide 40 mg tablet 40 mg PO BID 08/06/23 09/15/23 furosemide 40 mg tablet (Lasix) 40 mg PO DAILY 08/06/23 09/15/23 hydrocodone-homatropine 5 mg-1.5 1 tab PO Q6H PRN pain 08/06/23 09/15/23 mg tablet levetiracetam 250 mg tablet 250 mg PO BID 08/06/23 09/15/23 (Keppra) levothyroxine 150 mcg capsule 150 mcg PO DAILY 08/06/23 09/15/23 omega-3 fatty acids 1,000 mg PO DAILY 08/06/23 09/15/23 oxcarbazepine 300 mg tablet 150 mg PO TID 08/06/23 09/15/23 potassium chloride 20 mEq 20 meq PO BID 08/06/23 09/15/23 tablet,extended release (K-Tab) ropinirole 1 mg tablet 1 mg PO .q hs 08/06/23 09/16/23 guaifenesin 600 mg tablet, 600 mg PO BID PRN cough 09/15/23 09/15/23 extended release 12 hr (Mucinex) pregabalin 100 mg capsule (Lyrica) 100 mg PO TID 09/15/23 09/15/23 tizanidine 4 mg capsule (Zanaflex) 4 mg PO DAILY 09/15/23 09/15/23 acetaminophen 325 mg tablet (Aphen) 650 mg PO Q6H PRN pain 09/16/23 09/16/23 amlodipine 5 mg tablet 5 mg PO .q am 09/16/23 09/16/23 insulin lispro 100 unit/mL 1 sliding scale dose subcut ACHS 09/16/23 09/16/23 subcutaneous pen (Humalog KwikPen (U-100) Insulin) molnupiravir 200 mg capsule (EUA) 800 mg PO Q12H 09/16/23 09/16/23 (Lagevrio) Previous Rx's ?Medication ?Instructions ?Recorded prednisone 10 mg tablets in a dose 10 mg PO DAILY #39 ea 09/16/23 pack Allergies Allergy/AdvReac Type Severity Reaction Status Date / Time Penicillins Allergy Severe Verified 08/06/23 17:57 Sulfa (Sulfonamide AdvReac Unknown Verified 08/06/23 19:01 Antibiotics) Review of Systems ROS Status of ROS 10 or more systems reviewed and unremarkable except as noted in history and below PFSH [facility] Medical History (Updated 09/17/23 @ 15:13 by Mili Garcia MD) CKD stage 3b, GFR 30-44 ml/min ?N18.32 - Chronic kidney disease, stage 3b (ICD-10) CAD (coronary artery disease) ?I25.10 - Atherosclerotic heart disease of [place] coronary artery without angina pectoris (ICD-10) Hypertension ?I10 - Essential (primary) hypertension (ICD-10) Type 2 diabetes mellitus ?E11.9 - Type 2 diabetes mellitus without complications (ICD-10) Chronic hypoxic respiratory failure ?J96.11 - Chronic respiratory failure with hypoxia (ICD-10) Acute kidney injury ?N17.9 - Acute kidney failure, unspecified (ICD-10) COPD (chronic obstructive pulmonary disease) ?J44.9 - Chronic obstructive pulmonary disease, unspecified (ICD-10) Hypercalcemia ?E83.52 - Hypercalcemia (ICD-10) Right lower lobe pneumonia ?J18.9 - Pneumonia, unspecified organism (ICD-10) Hypotension ?I95.9 - Hypotension, unspecified (ICD-10) Respiratory failure ?J96.90 - Respiratory failure, unspecified, unspecified whether with hypoxia or hypercapnia (ICD-10) Nonrheumatic aortic (valve) insufficiency ?I35.1 - Nonrheumatic aortic (valve) insufficiency (ICD-10) Nausea ?R11.0 - Nausea (ICD-10) Weakness ?R53.1 - Weakness (ICD-10) Cough ?R05.9 - Cough, unspecified (ICD-10) Wheezing ?R06.2 - Wheezing (ICD-10) Shortness of breath ?R06.02 - Shortness of breath (ICD-10) Urinary retention ?R33.9 - Retention of urine, unspecified (ICD-10) Acute respiratory distress ?R06.03 - Acute respiratory distress (ICD-10) Sleep apnea ?G47.30 - Sleep apnea, unspecified (ICD-10) Vitamin D deficiency ?E55.9 - Vitamin D deficiency, unspecified (ICD-10) Hyperlipidemia ?E78.5 - Hyperlipidemia, unspecified (ICD-10) Hypothyroidism ?E03.9 - Hypothyroidism, unspecified (ICD-10) Neuropathy ?G62.9 - Polyneuropathy, unspecified (ICD-10) Myocardial infarction type 2 ?I21.A1 - Myocardial infarction type 2 (ICD-10) Acute kidney failure ?N17.9 - Acute kidney failure, unspecified (ICD-10) Pneumonia ?J18.9 - Pneumonia, unspecified organism (ICD-10) Acute cystitis without hematuria ?N30.00 - Acute cystitis without hematuria (ICD-10) Sepsis ?A41.9 - Sepsis, unspecified organism (ICD-10) Family History (Updated 09/16/23 @ 00:14 by Johanny Berry) Mother Family history of CHF (congestive heart failure) Family history of COPD (chronic obstructive pulmonary disease) Family history of cancer Family history of hypertension Family history of myocardial infarction Social History (Updated 09/16/23 @ 00:15 by Johanny Berry) Within the past year, how often did you have a drink containing alcohol: never Score interpretation: A score less than 3 is consistent with normal alcohol consumption. Smoking status: Former smoker Non-prescribed substance use: denies use Previous occupational history: retired Highest level of school completed/degree received: some college, no degree Are you now , , , , never or living with a partner: In a typical week, how many times do you talk on the telephone with family, friends, or neighbors: 3 or more times per week How often do you get together with friends or relatives: 3 or more times per week How often do you attend orthodoxy or samaritan services: never Do you belong to any clubs or organizations such as orthodoxy groups unions, [employer] or athletic groups, or school groups: no Total score: 1 Score interpretation: A score of less than or equal to 1 indicates the most socially isolated. Little interest or pleasure in doing things: not at all Feeling down, depressed, or hopeless: not at all Feel stressed/tense/nervous/anxious/difficulty sleeping: not at all Do you think of yourself as: straight/heterosexual Gender Identity: female Exam Narrative Exam Narrative: Nurses notes and vital signs reviewed and patient is not hypoxic. General: Well-appearing and in no apparent distress. Skin: Warm, dry, no pallor noted. No rash. Head: Normocephalic, atraumatic. Neck: Supple, non-tender. Eye: Pupils are equal, round and EOMI. No scleral icterus. Ears, Nose, Mouth, and Throat: TM are clear, no nasal mucosal hypertrophy. Oral mucosa is moist, no posterior oropharynx erythema, uvula is mid-line Cardiovascular: Regular Rate and Rhythm without murmur, gallop or rub. Lungs decreased air entry bilaterally and distant breathing sounds with rhonchi heard in both lower lung field The patient is leaning forward using accessory muscles Chest Wall: no tenderness Back: No midline thoracic or lumbar vertebral tenderness. No CVA tenderness Musculoskeletal: normal ROM, no calf or popliteal tenderness, no lower extremity edema/swelling GI: Abdomen is soft, non-distended. Normal bowel sounds. No masses appreciated. No tenderness to palpation. No rebound, guarding, or rigidity noted. Neurological: A&O x4. No cranial nerve dysfunction observed. No truncal ataxia. Moves all extremities. Sensation intact. Psychiatric: Cooperative and interactive. Normal mood and affect. Constitutional Vital Signs, click to edit/add: Last Vital Signs Temp 98.7 F 09/17/23 13:08 Pulse 58 L 09/17/23 15:10 Resp 17 09/17/23 15:10 BP 101/65 09/17/23 14:31 Pulse Ox 94 L 09/17/23 15:10 O2 Del Method BIPAP 09/17/23 13:40 FiO2 30 09/17/23 13:40 Course Vital Signs Vital signs: Vital Signs Temperature 98.7 F 09/17/23 13:08 Pulse Rate 102 H 09/17/23 13:08 Respiratory Rate 34 H 09/17/23 13:08 Blood Pressure 204/85 H 09/17/23 13:08 Pulse Oximetry 93 L 09/17/23 13:08 Oxygen Delivery Method Nonrebreather 09/17/23 13:08 Temperature 98.7 F 09/17/23 13:08 Pulse Rate 58 L 09/17/23 15:10 Respiratory Rate 17 09/17/23 15:10 Blood Pressure 101/65 09/17/23 14:31 Pulse Oximetry 94 L 09/17/23 15:10 Oxygen Delivery Method BIPAP 09/17/23 13:40 Fraction of Inspired Oxygen 30 09/17/23 13:40 MDM - SOB/Dyspnea MDM Narrative Medical decision making narrative: Patient EKG showed sinus rhythm with a heart rate of [address] elevation The patient CBC showed no acute pathology she is presenting to us right now again with respiratory distress she was placed on the BiPAP upon arrival The patient was feeling much better after she was on the BiPAP and she received a breathing treatment insulin withdrawal Patient had a blood culture obtained she was started on azithromycin and doxycycline The patient chest x-ray shows possible infiltrate and even with her history of COPD exacerbation she will be covered with antibiotic The patient as she is feeling much better she was changed to Vapotherm The patient case was discussed with Dr. Ray and he agrees on the above mentioned plan Patient was switched to Vapotherm 40 L at 30% and she is doing well with no distress Lab Data Labs: Lab Results 07/13/24 Range/Units 13:29 WBC 6.1 (4.0-11.0) 10^3/uL RBC 3.66 L (4.20-5.40) 10^6/uL Hgb 10.9 L (12.0-16.0) g/dL Hct 33.8 L (36.0-48.0) % MCV 92.3 (81.0-99.0) fL MCH 29.8 (26.7-34.0) pg MCHC 32.2 (29.9-35.2) g/dL RDW 14.9 (11.0-15.0) % Plt Count 188 (150-450) 10^3/uL MPV 9.7 (9.5-13.5) fL Neut % (Auto) 87.4 H (43.0-75.0) % Lymph % (Auto) 7.2 L (20.5-60.0) % [place] % (Auto) 4.7 (1.7-12.0) % Eos % (Auto) 0.0 L (0.9-7.0) % Baso % (Auto) 0.2 (0.2-2.0) % Neut # (Auto) 5.4 (1.4-6.5) 10^3/uL Lymph # (Auto) 0.4 L (1.2-3.8) 10^3/uL [place] # (Auto) 0.3 (0.3-0.8) 10^3/uL Eos # (Auto) 0.0 (0.0-0.7) 10^3/uL Baso # (Auto) 0.0 (0.0-0.1) 10^3/uL Abs Immat Gran (auto) 0.03 (0.00-0.03) 10^3/uL Imm/Tot Granulo (auto) 0.5 (0.0-0.5) % PT 10.3 (9.0-11.6) sec INR 0.97 D-Dimer 0.88 H* (<=0.59) mg/L FEU Sodium 139 (136-145) mmol/L Potassium 4.0 (3.5-5.1) mmol/L Chloride 102 (98-107) mmol/L Carbon Dioxide 28.4 (21.0-32.0) mmol/L Anion Gap 12.6 BUN 34.0 H (7.0-18.0) mg/dL Creatinine 1.23 H (0.55-1.02) mg/dL Est GFR ( Amer) 52 L (>=60) Est GFR (Non-Af Amer) 43 L (>=60) BUN/Creatinine Ratio 27.6 Glucose 124 H (74-106) mg/dL Lactate 1.4 (0.4-2.0) mmol/L Calcium 8.4 L (8.5-10.1) mg/dL Total Bilirubin 0.4 (0.2-1.0) mg/dL AST 43 H (15-37) U/L ALT 44 (14-59) U/L Alkaline Phosphatase 117 H (46-116) U/L Troponin I High Sens 43.5 (4.0-51.3) pg/mL NT-Pro-B Natriuret Pep 857.0 (<=900.0) pg/mL Total Protein 6.9 (6.4-8.2) g/dL Albumin 3.4 (3.4-5.0) g/dL Globulin 3.5 g/dL Albumin/Globulin Ratio 1.0 Discharge Plan Discharge Chief Complaint: Shortness of Breath/Dyspnea Clinical Impression: COVID-19, Asthma exacerbation in COPD, Acute respiratory distress Pneumonia Qualifiers: Pneumonia type: due to unspecified organism Laterality: bilateral Lung location: unspecified part of lung Qualified Code(s): J18.9 - Pneumonia, unspecified organism Patient Disposition: Admitted As Inpatient Time of Disposition Decision: 14:48
[2023-09-17 13:36] LABS: Basophils Percent Auto 0.2 % (0.2-2.0); Hematocrit 33.8 % (36.0-48.0); Hemoglobin 10.9 g/dL (12.0-16.0); Immature Granulocytes Abs Auto 0.03 10^3/uL (0.00-0.03); Immature Granulocytes Pct Auto 0.5 % (0.0-0.5); Lymphocytes Absolute Auto 0.4 10^3/uL (1.2-3.8); Lymphocytes Percent Auto 7.2 % (20.5-60.0); Mean Corpuscular HGB Conc 32.2 g/dL (29.9-35.2); Mean Corpuscular Hemoglobin 29.8 pg (26.7-34.0); Mean Corpuscular Volume 92.3 fL (81.0-99.0); Mean Platelet Volume 9.7 fL (9.5-13.5); Monocytes Absolute Auto 0.3 10^3/uL (0.3-0.8); Monocytes Percent Auto 4.7 % (1.7-12.0); Neutrophils Absolute Auto 5.4 10^3/uL (1.4-6.5); Neutrophils Percent Auto 87.4 % (43.0-75.0); Platelet Count 188 10^3/uL (150-450); Red Blood Count 3.66 10^6/uL (4.20-5.40); Red Cell Distribution Width 14.9 % (11.0-15.0); White Blood Count 6.1 10^3/uL (4.0-11.0)
[2023-09-17] MEDS: IPRATROPIUM/ALBUTEROL SULFATE 3 ML AMPUL.NEB IH ×2 (13:38→22:47)
[2023-09-17 13:53] LABS: INR 0.97; Prothrombin Time 10.3 sec (9.0-11.6)
[2023-09-17 13:57] LABS: Lactate/Lactic Acid 1.4 mmol/L (0.4-2.0)
[2023-09-17 14:03] LABS: Alanine Aminotransferase 44 U/L (14-59); Albumin Level 3.4 g/dL (3.4-5.0); Alkaline Phosphatase 117 U/L (46-116); Anion Gap 12.6; Aspartate Amino Transferase 43 U/L (15-37); BUN Creatinine Ratio 27.6; Bilirubin Total 0.4 mg/dL (0.2-1.0); Calcium 8.4 mg/dL (8.5-10.1); Carbon Dioxide 28.4 mmol/L (21.0-32.0); Chloride 102 mmol/L (98-107); Estimated GFR (African America 52 (>=60); Estimated GFR (Non-African Ame 43 (>=60); Globulin 3.5 g/dL; Glucose 124 mg/dL (74-106); Sodium 139 mmol/L (136-145); Total Protein 6.9 g/dL (6.4-8.2); Troponin I High Sensitivity 43.5 pg/mL (4.0-51.3)
[2023-09-17] MEDS: METHYLPREDNISOLONE SOD SUCC PF 125 MG/2 ML VIAL IVP ×2 (14:15→22:04)
[2023-09-17 14:16] LABS: D Dimer 0.88 mg/L FEU (<=0.59)
[2023-09-17] MEDS: DOXYCYCLINE HYCLATE 100 MG in 0.9 % SODIUM CHLORIDE 100 ML IV (14:46)
[2023-09-17 15:16] LABS: ABG PCO2 41.3 mmHg (35.0-45.0); Allen Test POS (POSITIVE); Base Excess ABG 1.7 mmol/L (-2.0-2.0); HCO3 ABG 26.3 mmol/L (22.0-26.0); Oxygen Saturation ABG 95.8 %; pH ABG 7.413 (7.350-7.450)
[2023-09-17 15:17] LABS: BIPAP Pressure 14/6; Fractionated Inspired Oxygen 30 %; O2 Mode BIPAP; Puncture Site R RADIAL
[2023-09-17] MEDS: AZITHROMYCIN 500 MG in 0.9 % SODIUM CHLORIDE 250 ML 250 MG IV (15:35)
--- NOTE | 2023-09-17 16:18 | P.HP_ITS ---
HPI H&P: HPI History of Present Illness Chief complaint: SOB, PNEUMONIA, COVID, RESPIRATORY DISTRESS Narrative: Patient was seen and discharged with acute COVID pneumonia recently. Patient had increasing shortness of breath. Saturations were less than 80 as reported by long term, in ER had to be placed on BiPAP to improve oxygenation. O2 saturation documented 84%. Improved on BiPAP. Rest of workup was unremarkable other than the bilateral COVID-19 pneumonia progression on chest x-ray. BNP and HST negative. I saw the patient up on the medical surgical floor, she was resting fairly comfortably in bed, cough throughout the evaluation, some mild conversational dyspnea. Patient states the cough is productive. Denies fever or chills. She does have shortness of breath with any activity. Some mild loose stools which she thinks is from the antiviral medicine she was given. Otherwise no specific complaints Opioid HPI Opioid Management Most Recent Pain and Opioid Data: Last Pain Scale 1 09/16/23 02:25 Last Pain Assessment 09/17/23 19:20 Last ORT Total Score 7 09/17/23 16:04 Last ORT Risk Category Moderate Risk 09/17/23 16:04 Review of Systems ROS Status of ROS 10 or more systems reviewed and unremark able except as noted in history and below [facility] Medical History (Updated 09/17/23 @ 15:13 by Mili Garcia MD) CKD stage 3b, GFR 30-44 ml/min ?N18.32 - Chronic kidney disease, stage 3b (ICD-10) CAD (coronary artery disease) ?I25.10 - Atherosclerotic heart disease of [place] coronary artery without angina pectoris (ICD-10) Hypertension ?I10 - Essential (primary) hypertension (ICD-10) Type 2 diabetes mellitus ?E11.9 - Type 2 diabetes mellitus without complications (ICD-10) Chronic hypoxic respiratory failure ?J96.11 - Chronic respiratory failure with hypoxia (ICD-10) Acute kidney injury ?N17.9 - Acute kidney failure, unspecified (ICD-10) COPD (chronic obstructive pulmonary disease) ?J44.9 - Chronic obstructive pulmonary disease, unspecified (ICD-10) Hypercalcemia ?E83.52 - Hypercalcemia (ICD-10) Right lower lobe pneumonia ?J18.9 - Pneumonia, unspecified organism (ICD-10) Hypotension ?I95.9 - Hypotension, unspecified (ICD-10) Respiratory failure ?J96.90 - Respiratory failure, unspecified, unspecified whether with hypoxia or hypercapnia (ICD-10) Nonrheumatic aortic (valve) insufficiency ?I35.1 - Nonrheumatic aortic (valve) insufficiency (ICD-10) Nausea ?R11.0 - Nausea (ICD-10) Weakness ?R53.1 - Weakness (ICD-10) Cough ?R05.9 - Cough, unspecified (ICD-10) Wheezing ?R06.2 - Wheezing (ICD-10) Shortness of breath ?R06.02 - Shortness of breath (ICD-10) Urinary retention ?R33.9 - Retention of urine, unspecified (ICD-10) Acute respiratory distress ?R06.03 - Acute respiratory distress (ICD-10) Sleep apnea ?G47.30 - Sleep apnea, unspecified (ICD-10) Vitamin D deficiency ?E55.9 - Vitamin D deficiency, unspecified (ICD-10) Hyperlipidemia ?E78.5 - Hyperlipidemia, unspecified (ICD-10) Hypothyroidism ?E03.9 - Hypothyroidism, unspecified (ICD-10) Neuropathy ?G62.9 - Polyneuropathy, unspecified (ICD-10) Myocardial infarction type 2 ?I21.A1 - Myocardial infarction type 2 (ICD-10) Acute kidney failure ?N17.9 - Acute kidney failure, unspecified (ICD-10) Pneumonia ?J18.9 - Pneumonia, unspecified organism (ICD-10) Acute cystitis without hematuria ?N30.00 - Acute cystitis without hematuria (ICD-10) Sepsis ?A41.9 - Sepsis, unspecified organism (ICD-10) Surgical History (Updated 09/17/23 @ 16:03 by Beatrice Hi) Hx of cholecystectomy ?Z90.49 - Acquired absence of other specified parts of digestive tract (ICD- 10) H/O foot surgery ?Z98.890 - Other specified postprocedural states (ICD-10) H/O right heart catheterization ?Z98.890 - Other specified postprocedural states (ICD-10) H/O: hysterectomy ?Z90.710 - Acquired absence of both cervix and uterus (ICD-10) Previous back surgery ?Z98.890 - Other specified postprocedural states (ICD-10) History of hip surgery ?Z98.890 - Other specified postprocedural states (ICD-10) Family History (Updated 09/16/23 @ 00:14 by Johanny Berry) Mother Family history of CHF (congestive heart failure) Family history of COPD (chronic obstructive pulmonary disease) Family history of cancer Family history of hypertension Family history of myocardial infarction Social History (Updated 09/16/23 @ 00:15 by Johanny Berry) Within the past year, how often did you have a drink containing alcohol: never Score interpretation: A score less than 3 is consistent with normal alcohol consumption. Smoking status: Former smoker Non-prescribed substance use: denies use Previous occupational history: retired Highest level of school completed/degree received: some college, no degree Are you now , , , , never or living with a partner: In a typical week, how many times do you talk on the telephone with family, friends, or neighbors: 3 or more times per week How often do you get together with friends or relatives: 3 or more times per week How often do you attend congregational or mosque services: never Do you belong to any clubs or organizations such as congregational groups unions, [employer] or athletic groups, or school groups: no Total score: 1 Score interpretation: A score of less than or equal to 1 indicates the most socially isolated. Little interest or pleasure in doing things: not at all Feeling down, depressed, or hopeless: not at all Feel stressed/tense/nervous/anxious/difficulty sleeping: not at all Do you think of yourself as: straight/heterosexual Gender Identity: female Meds Home Medications and Allergies Home Medications ?Medication ?Instructions ?Recorded ?Confirmed ?Type albuterol sulfate 90 mcg/actuation 1 inh inhalation Q8H 08/06/23 09/17/23 History aerosol inhaler (Ventolin HFA) alpha lipoic acid 600 mg capsule 600 mg PO TID 08/06/23 09/17/23 History amantadine HCl 100 mg tablet 100 mg PO DAILY 08/06/23 09/17/23 History aspirin 81 mg capsule 81 mg PO DAILY 08/06/23 09/17/23 History atorvastatin 40 mg tablet 40 mg PO DAILY 08/06/23 09/17/23 History cetirizine 10 mg tablet (24Hour 10 mg PO DAILY allergy symptoms 08/06/23 09/17/23 History Allergy) fluticasone fur. 100 mcg-umeclid 1 inh inhalation DAILY 08/06/23 09/17/23 History 62.5 mcg-vilant 25 mcg inhalat.powder (Trelegy Ellipta) furosemide 40 mg tablet 40 mg PO BID 08/06/23 09/17/23 History furosemide 40 mg tablet (Lasix) 40 mg PO DAILY 08/06/23 09/17/23 History hydrocodone-homatropine 5 mg-1.5 1 tab PO Q6H PRN pain 08/06/23 09/17/23 History mg tablet levetiracetam 250 mg tablet 250 mg PO BID 08/06/23 09/17/23 History (Keppra) levothyroxine 150 mcg capsule 150 mcg PO DAILY 08/06/23 09/17/23 History omega-3 fatty acids 1,000 mg PO DAILY 08/06/23 09/17/23 History oxcarbazepine 300 mg tablet 150 mg PO TID 08/06/23 09/17/23 History potassium chloride 20 mEq 20 meq PO BID 08/06/23 09/17/23 History tablet,extended release (K-Tab) ropinirole 1 mg tablet 1 mg PO .q hs 08/06/23 09/17/23 History guaifenesin 600 mg tablet, 600 mg PO BID PRN cough 09/15/23 09/17/23 History extended release 12 hr (Mucinex) pregabalin 100 mg capsule (Lyrica) 100 mg PO TID 09/15/23 09/17/23 History tizanidine 4 mg capsule (Zanaflex) 4 mg PO DAILY 09/15/23 09/17/23 History acetaminophen 325 mg tablet (Aphen) 650 mg PO Q6H PRN pain 09/16/23 09/17/23 History amlodipine 5 mg tablet 5 mg PO .q am 09/16/23 09/17/23 History insulin lispro 100 unit/mL 1 sliding scale dose subcut ACHS 09/16/23 09/17/23 History subcutaneous pen (Humalog KwikPen (U-100) Insulin) molnupiravir 200 mg capsule (EUA) 800 mg PO Q12H 09/16/23 09/17/23 History (Lagevrio) prednisone 10 mg tablets in a dose 10 mg PO DAILY #39 ea 09/16/23 09/17/23 Rx pack Allergies Allergy/AdvReac Type Severity Reaction Status Date / Time Penicillins Allergy Severe Verified 08/06/23 17:57 Sulfa (Sulfonamide AdvReac Unknown Verified 08/06/23 19:01 Antibiotics) Exam Constitutional Vital Signs, click to edit/add: Last Vital Signs Temp 99.2 F 09/17/23 16:04 Pulse 71 09/17/23 16:04 Resp 20 09/17/23 16:04 BP 132/62 09/17/23 16:04 Pulse Ox 98 09/17/23 16:04 O2 Del Method Vapotherm 09/17/23 16:04 O2 Flow Rate 40 09/17/23 16:04 FiO2 30 09/17/23 16:04 Documenting provider has reviewed patient's vital signs: yes Common normals: apparent distress (Mild conversational dyspnea) Chest Common normals: inspection of chest normal Respiratory Common normals: abnormal respiratory effort (Mild conversational dyspnea) Effort & inspection: abnormal respiratory pattern Auscultation: rhonchi and wheezes Cardio Common normals: no JVD, regular rate and regular rhythm GI Common normals: Normal to inspection, nondistended, normoactive bowel sounds present Extremity Common normals: normal to inspection, full ROM and no clubbing, cyanosis or edema Results Labs Labs: Short CBC 09/17/23 Range/Units 13:29 WBC 6.1 (4.0-11.0) 10^3/uL Hgb 10.9 L (12.0-16.0) g/dL Hct 33.8 L (36.0-48.0) % Plt Count 188 (150-450) 10^3/uL BMP 09/17/23 13:29 Sodium 139 Potassium 4.0 Chloride 102 Carbon Dioxide 28.4 BUN 34.0 H Creatinine 1.23 H Glucose 124 H Calcium 8.4 L Liver Function 09/17/23 Range/Units 13:29 Total Bilirubin 0.4 (0.2-1.0) mg/dL AST 43 H (15-37) U/L ALT 44 (14-59) U/L Alkaline Phosphatase 117 H (46-116) U/L Albumin 3.4 (3.4-5.0) g/dL ABG ABG results: 09/17/23 15:10 ABG pH 7.413 ABG pCO2 41.3 ABG pO2 75.0 L ABG HCO3 26.3 H ABG O2 Saturation 95.8 ABG Base Excess 1.7 Assessment and Plan Assessment and Plan (1) Pneumonia: Qualifiers: Laterality: bilateral Lung location: unspecified part of lung Pneumonia type: due to unspecified organism Qualified Code(s): J18.9 - Pneumonia, unspecified organism (2) Acute respiratory distress: (3) Asthma exacerbation in COPD: Plan Findings on admission: Sinus tachycardia, respiratory distress, uncontrolled hypertension, acute hypoxia with O2 saturation of 84% requiring BiPAP to improve O2 saturations to 90% which is resulted in acute hypoxic respiratory failure causing an acute exacerbation of COPD.. That improved throughout the breathing treatments to 94 on BiPAP. This is due to bilateral pneumonia secondary to COVID-19, white blood cell count normal but with significant left shift suggesting bacterial pattern. Bilateral pneumonia secondary to [id number], steroids, aerosol treatments, Zyrtec, Pepcid. She has been improving down to the Vapotherm, will see if she is able to maintain that overnight. Diabetes mellitus-insulin sliding scale. Likely to be elevated secondary to COVID-19 and treatment for COVID-19 Acute kidney injury persisting, baseline creatinine of 0.9, creatinine on admission 1.22 which would be 135.5% above baseline. Gentle IV fluids. Hypomagnesemia-supplement Iron deficiency anemia-monitor daily Elevated liver function test likely secondary to [id number] daily, patient without abdominal pain. She does have some loose stools. Acute diarrhea-May need treatment with Imodium, will try Levsin initially. Hypercholesterolemia-diet management and medications Hypothyroidism-TSH slightly suppressed. Continue with current dosing. Diabetic peripheral neuropathy-continue with current medications Back pain with muscle spasm-continue with home medications Admission status: Patient with failed outpatient treatment of acute COVID-19 with progressive pneumonia with bilateral infiltrates, significant hypoxia to the degree of acute hypoxic respiratory failure requiring BiPAP. Medically necessary treatment will span 2 midnights. Inpatient status.
[2023-09-17 16:41] LABS: Lactate/Lactic Acid 1.6 mmol/L (0.4-2.0)
[2023-09-17 16:46] LABS: Magnesium 1.7 mg/dL (1.8-2.4); Thyroid Stimulating Hormone 0.089 uIU/mL (0.358-3.740)
[2023-09-17] MEDS: ENOXAPARIN SODIUM 40 MG/0.4 ML SYRINGE SUBQ (17:59)
[2023-09-17] MEDS: CLINDAMYCIN PHOS 300 MG/50 ML PIGGYBACK 100 MG IV (18:00)
[2023-09-17] MEDS: INSULIN ASPART 300 UNIT/3 ML PEN SUBQ (18:19)
[2023-09-17 18:27] LABS: Glucometer 285 mg/dL (74-106)
[2023-09-17] MEDS: REMDESIVIR 200 MG in 0.9 % SODIUM CHLORIDE 250 ML 250 MG IV (19:04)
[2023-09-17] MEDS: CEFTAZIDIME 1,000 MG in 0.9 % SODIUM CHLORIDE 50 ML 100 MG IV (20:11)
[2023-09-17] MEDS: LACTATED RINGER'S SOLUTION 1,000 ML 50 ML IV (20:16)
[2023-09-17] MEDS: LEVOFLOXACIN IN DEXTROSE 5 % 750 MG/150 ML IV.SOLN 100 MG IV (20:51)
[2023-09-17] MEDS: ROPINIROLE HCL 1 MG TABLET PO (22:03)
[2023-09-17] MEDS: FAMOTIDINE/PF 20 MG/2 ML VIAL 40 MG IV (22:04)
[2023-09-17] MEDS: POTASSIUM CHLORIDE 10 MEQ ER TABLET 20 MEQ PO (22:04)
[2023-09-17] MEDS: LEVETIRACETAM 250 MG TABLET PO (22:04)
[2023-09-17] MEDS: OXcarbazepine 300 MG TABLET 150 MG PO (22:04)
[2023-09-17] MEDS: PREGABALIN 100 MG CAPSULE PO (22:04)
[2023-09-17 22:18] LABS: Glucometer 116 mg/dL (74-106)
--- NOTE | 2023-09-17 23:23 | RESP.RT ---
Titrated to 40% FiO2
[2023-09-18] VITALS (26 sets, daily range): BP systolic 118–144; BP diastolic 44–73; PULSE 50–70; TEMP 36.3–36.7; O2SAT 85–99
[2023-09-18] MEDS: MAGNESIUM OXIDE 400 MG TABLET PO ×3 (00:08→20:04)
[2023-09-18] MEDS: ALPRAZOLAM 0.5 MG TABLET PO ×3 (00:08→22:39)
[2023-09-18] MEDS: CLINDAMYCIN PHOS 300 MG/50 ML PIGGYBACK 100 MG IV ×5 (00:08→23:48)
[2023-09-18] MEDS: METHYLPREDNISOLONE SOD SUCC PF 125 MG/2 ML VIAL IVP ×4 (03:35→20:06)
[2023-09-18] MEDS: IPRATROPIUM/ALBUTEROL SULFATE 3 ML AMPUL.NEB IH ×4 (05:23→22:45)
[2023-09-18] MEDS: OXcarbazepine 300 MG TABLET 150 MG PO ×2 (05:47→13:57)
[2023-09-18] MEDS: LEVOTHYROXINE SODIUM 75 MCG TABLET 150 MCG PO (05:47)
[2023-09-18] MEDS: PREGABALIN 100 MG CAPSULE PO ×3 (05:47→22:40)
[2023-09-18 05:49] LABS: Hematocrit 34.2 % (36.0-48.0); Hemoglobin 10.9 g/dL (12.0-16.0); Immature Granulocytes Abs Auto 0.02 10^3/uL (0.00-0.03); Immature Granulocytes Pct Auto 0.5 % (0.0-0.5); Lymphocytes Absolute Auto 0.5 10^3/uL (1.2-3.8); Lymphocytes Percent Auto 13.7 % (20.5-60.0); Mean Corpuscular HGB Conc 31.9 g/dL (29.9-35.2); Mean Corpuscular Hemoglobin 29.5 pg (26.7-34.0); Mean Corpuscular Volume 92.7 fL (81.0-99.0); Mean Platelet Volume 10.3 fL (9.5-13.5); Monocytes Absolute Auto 0.1 10^3/uL (0.3-0.8); Monocytes Percent Auto 2.6 % (1.7-12.0); Neutrophils Absolute Auto 3.2 10^3/uL (1.4-6.5); Neutrophils Percent Auto 83.2 % (43.0-75.0); Platelet Count 183 10^3/uL (150-450); Red Blood Count 3.69 10^6/uL (4.20-5.40); Red Cell Distribution Width 14.8 % (11.0-15.0); White Blood Count 3.9 10^3/uL (4.0-11.0)
--- NOTE | 2023-09-18 06:10 | RESP.RT ---
Titrated to 30%
--- NOTE | 2023-09-18 06:11 | RESP.RT ---
Titrated to 30%
[2023-09-18 06:19] LABS: Alanine Aminotransferase 40 U/L (14-59); Albumin Globulin Ratio 0.9; Albumin Level 3.2 g/dL (3.4-5.0); Alkaline Phosphatase 99 U/L (46-116); Anion Gap 14.8; Aspartate Amino Transferase 36 U/L (15-37); BUN Creatinine Ratio 26.7; Bilirubin Total 0.3 mg/dL (0.2-1.0); Calcium 8.1 mg/dL (8.5-10.1); Carbon Dioxide 28.2 mmol/L (21.0-32.0); Chloride 103 mmol/L (98-107); Estimated GFR (African America 54 (>=60); Estimated GFR (Non-African Ame 44 (>=60); Globulin 3.7 g/dL; Glucose 148 mg/dL (74-106); Sodium 142 mmol/L (136-145); Total Protein 6.9 g/dL (6.4-8.2); Troponin I High Sensitivity 41.5 pg/mL (4.0-51.3)
[2023-09-18] MEDS: AMLODIPINE BESYLATE 5 MG TABLET PO (08:32)
[2023-09-18] MEDS: BENZONATATE 100 MG CAPSULE 200 MG PO ×2 (08:36→23:47)
[2023-09-18] MEDS: POTASSIUM CHLORIDE 10 MEQ ER TABLET 20 MEQ PO ×2 (08:36→20:04)
[2023-09-18] MEDS: FISH OIL 1,000 MG CAPSULE 1000 MG PO (08:36)
[2023-09-18] MEDS: CETIRIZINE HCL 10 MG TABLET PO (08:37)
[2023-09-18] MEDS: ACETAMINOPHEN 500 MG TABLET 1000 MG PO ×2 (08:37→23:47)
[2023-09-18] MEDS: ENOXAPARIN SODIUM 40 MG/0.4 ML SYRINGE SUBQ (08:38)
[2023-09-18] MEDS: FUROSEMIDE 40 MG/4 ML VIAL IVP (08:38)
[2023-09-18] MEDS: LEVETIRACETAM 250 MG TABLET PO ×2 (08:38→20:06)
[2023-09-18] MEDS: TIZANIDINE HCL 4 MG TABLET PO (08:38)
[2023-09-18] MEDS: FAMOTIDINE/PF 20 MG/2 ML VIAL 40 MG IV ×2 (08:38→20:06)
[2023-09-18] MEDS: AMANTADINE HCL 100 MG CAPSULE PO (08:40)
[2023-09-18] MEDS: ASPIRIN 81 MG TABLET.DR PO (08:40)
[2023-09-18] MEDS: ATORVASTATIN CALCIUM 40 MG TABLET PO (08:40)
[2023-09-18] MEDS: CEFTAZIDIME 1,000 MG in 0.9 % SODIUM CHLORIDE 50 ML 100 MG IV ×2 (08:47→20:02)
--- NOTE | 2023-09-18 09:20 | P.PN_ITS ---
Progress Note: Subjective Subjective Interval history: Patient seems generalized anxious, seems fairly comfortable with her breathing this morning. Exam Constitutional Vital Signs, click to edit/add: Last Vital Signs Temp 97.6 F 09/18/23 03:40 Pulse 50 L 09/18/23 07:45 Resp 18 09/18/23 05:23 BP 140/46 L 09/18/23 08:38 Pulse Ox 95 09/18/23 07:45 O2 Del Method Vapotherm 09/18/23 05:23 O2 Flow Rate 40 09/18/23 05:23 FiO2 40 09/18/23 05:23 Documenting provider has reviewed patient's vital signs: yes Common normals: apparent distress (Mild conversational dyspnea) Chest Common normals: inspection of chest normal Respiratory Common normals: abnormal respiratory effort (Mild conversational dyspnea persisting) Effort & inspection: abnormal respiratory pattern Auscultation: rhonchi (Persisting but somewhat better air movement) and wheezes (Improved today but just had breathing treatment) Cardio Common normals: no JVD, regular rate and regular rhythm GI Common normals: Normal to inspection, nondistended, normoactive bowel sounds present Extremity Common normals: normal to inspection and full ROM; clubbing, cyanosis or edema (Trace edema this morning) Progress Note: Objective Labs Labs: Short CBC 09/17/23 09/18/23 Range/Units 13:29 05:17 WBC 6.1 3.9 L (4.0-11.0) 10^3/uL Hgb 10.9 L 10.9 L (12.0-16.0) g/dL Hct 33.8 L 34.2 L (36.0-48.0) % Plt Count 188 183 (150-450) 10^3/uL BMP 09/17/23 09/18/23 13:29 05:17 Sodium 139 142 Potassium 4.0 4.0 Chloride 102 103 Carbon Dioxide 28.4 28.2 BUN 34.0 H 32.0 H Creatinine 1.23 H 1.20 H Glucose 124 H 148 H Calcium 8.4 L 8.1 L Liver Function 09/17/23 09/18/23 Range/Units 13:29 05:17 Total Bilirubin 0.4 0.3 (0.2-1.0) mg/dL AST 43 H 36 (15-37) U/L ALT 44 40 (14-59) U/L Alkaline Phosphatase 117 H 99 (46-116) U/L Albumin 3.4 3.2 L (3.4-5.0) g/dL Progress Note: A&P Assessment and Plan (1) Pneumonia: Qualifiers: Laterality: bilateral Lung location: unspecified part of lung Pneumonia type: due to unspecified organism Qualified Code(s): J18.9 - Pneumonia, unspecified organism (2) Acute respiratory distress: (3) Asthma exacerbation in COPD: Plan Findings on admission: Sinus tachycardia, respiratory distress, uncontrolled hypertension, acute hypoxia with O2 saturation of 84% requiring BiPAP to improve O2 saturations to 90% which is resulted in acute hypoxic respiratory failure causing an acute exacerbation of COPD.. That improved throughout the breathing treatments to 94 on BiPAP. This is due to bilateral pneumonia secondary to COVID-19, white blood cell count normal but with significant left shift suggesting bacterial pattern. Bilateral pneumonia secondary to [id number], steroids, aerosol treatments, Zyrtec, Pepcid. Able on Vapotherm overnight, will try to wean this morning. Diabetes mellitus-insulin sliding scale. Likely to be elevated secondary to COVID-19 and treatment for COVID-19 Acute kidney injury persisting, baseline creatinine of 0.9, creatinine on admission 1.22 which would be 135.5% above baseline. BNP now elevated so will saline lock. Hypomagnesemia-supplement Iron deficiency anemia-monitor daily stable today Elevated liver function test likely secondary to [id number] daily, patient without abdominal pain. Improved today Acute diarrhea-May need treatment with Imodium, will try Levsin initially. Hypercholesterolemia-diet management and medications Hypothyroidism-TSH slightly suppressed. Continue with current dosing. Diabetic peripheral neuropathy-continue with current medications Back pain with muscle spasm-continue with home medications History of chronic combined congestive heart failure-BNP is elevated today, give 1 dose of IV Lasix today. And saline lock. Admission status: Patient with failed outpatient treatment of acute COVID-19 with progressive pneumonia with bilateral infiltrates, significant hypoxia to the degree of acute hypoxic respiratory failure requiring BiPAP. Medically necessary treatment will span 2 midnights. Inpatient status. Likely here 2-3 more days
[2023-09-18] MEDS: BUDESONIDE 0.5 MG/2 ML AMPULE NEB IH ×2 (10:11→22:45)
[2023-09-18 10:57] LABS: Glucometer 284 mg/dL (74-106)
[2023-09-18] MEDS: INSULIN ASPART 300 UNIT/3 ML PEN SUBQ ×2 (11:30→22:36)
[2023-09-18] MEDS: OXcarbazepine 300 MG TABLET 450 MG PO (15:05)
[2023-09-18 15:56] LABS: Glucometer 127 mg/dL (74-106)
[2023-09-18] MEDS: 0.9 % SODIUM CHLORIDE 250 ML 10 ML IV (17:25)
[2023-09-18] MEDS: REMDESIVIR 100 MG in 0.9 % SODIUM CHLORIDE 100 ML 200 MG IV (18:12)
[2023-09-18 20:40] LABS: Glucometer 256 mg/dL (74-106)
[2023-09-18] MEDS: ROPINIROLE HCL 1 MG TABLET PO (22:40)
[2023-09-19] VITALS (20 sets, daily range): BP systolic 128–201; BP diastolic 67–90; PULSE 50–83; TEMP 36.3–36.9; O2SAT 77–99
[2023-09-19] MEDS: METHYLPREDNISOLONE SOD SUCC PF 125 MG/2 ML VIAL IVP (03:04)
[2023-09-19] MEDS: CLINDAMYCIN PHOS 300 MG/50 ML PIGGYBACK 100 MG IV ×3 (05:00→17:01)
[2023-09-19] MEDS: PREGABALIN 100 MG CAPSULE PO ×3 (05:01→23:36)
[2023-09-19] MEDS: IPRATROPIUM/ALBUTEROL SULFATE 3 ML AMPUL.NEB IH ×4 (05:11→23:16)
[2023-09-19 05:31] LABS: Hematocrit 29.7 % (36.0-48.0); Hemoglobin 9.6 g/dL (12.0-16.0); Immature Granulocytes Abs Auto 0.05 10^3/uL (0.00-0.03); Immature Granulocytes Pct Auto 1.5 % (0.0-0.5); Lymphocytes Absolute Auto 0.5 10^3/uL (1.2-3.8); Lymphocytes Percent Auto 16.3 % (20.5-60.0); Mean Corpuscular HGB Conc 32.3 g/dL (29.9-35.2); Mean Corpuscular Hemoglobin 29.9 pg (26.7-34.0); Mean Corpuscular Volume 92.5 fL (81.0-99.0); Mean Platelet Volume 10.1 fL (9.5-13.5); Monocytes Absolute Auto 0.2 10^3/uL (0.3-0.8); Monocytes Percent Auto 6.3 % (1.7-12.0); Neutrophils Absolute Auto 2.5 10^3/uL (1.4-6.5); Neutrophils Percent Auto 75.9 % (43.0-75.0); Platelet Count 155 10^3/uL (150-450); Red Blood Count 3.21 10^6/uL (4.20-5.40); Red Cell Distribution Width 14.8 % (11.0-15.0); White Blood Count 3.3 10^3/uL (4.0-11.0)
[2023-09-19 06:00] LABS: Alanine Aminotransferase 30 U/L (14-59); Albumin Globulin Ratio 0.9; Albumin Level 2.9 g/dL (3.4-5.0); Alkaline Phosphatase 76 U/L (46-116); Anion Gap 11.7; Aspartate Amino Transferase 30 U/L (15-37); BUN Creatinine Ratio 28.7; Bilirubin Total 0.3 mg/dL (0.2-1.0); Calcium 7.8 mg/dL (8.5-10.1); Carbon Dioxide 29.6 mmol/L (21.0-32.0); Chloride 105 mmol/L (98-107); Estimated GFR (African America >60 (>=60); Estimated GFR (Non-African Ame 50 (>=60); Globulin 3.2 g/dL; Glucose 166 mg/dL (74-106); Potassium 4.3 mmol/L (3.5-5.1); Sodium 142 mmol/L (136-145); Total Protein 6.1 g/dL (6.4-8.2); Troponin I High Sensitivity 25.7 pg/mL (4.0-51.3)
[2023-09-19] MEDS: LEVOTHYROXINE SODIUM 75 MCG TABLET 150 MCG PO (06:34)
--- NOTE | 2023-09-19 06:37 | P.PN_ITS ---
Progress Note: Subjective Subjective Interval history: Patient just returned from the bathroom when I saw her, significant conversational dyspnea, gradually recovered throughout the evaluation Exam Constitutional Vital Signs, click to edit/add: Last Vital Signs Temp 97.9 F 09/19/23 05:00 Pulse 55 L 09/19/23 06:00 Resp 18 09/19/23 05:12 BP 128/67 09/19/23 05:00 Pulse Ox 97 09/19/23 06:00 O2 Del Method Nasal Cannula 09/19/23 05:12 O2 Flow Rate 4 09/19/23 05:12 FiO2 30 09/18/23 10:13 Documenting provider has reviewed patient's vital signs: yes Common normals: apparent distress (Moderate conversational dyspnea, improved during evaluation) Chest Common normals: inspection of chest normal Respiratory Common normals: abnormal respiratory effort (Mild conversational dyspnea persisting) Effort & inspection: abnormal respiratory pattern (Tachypneic) Auscultation: rhonchi (Persisting rhonchi today unchanged from previous day) and wheezes (Improved today but just had breathing treatment) Cardio Common normals: no JVD, regular rate and regular rhythm GI Common normals: Normal to inspection, nondistended, normoactive bowel sounds present Extremity Common normals: normal to inspection and full ROM; clubbing, cyanosis or edema (Trace edema this morning) Progress Note: Objective Labs Labs: Short CBC 09/19/23 Range/Units 05:11 WBC 3.3 L (4.0-11.0) 10^3/uL Hgb 9.6 L (12.0-16.0) g/dL Hct 29.7 L (36.0-48.0) % Plt Count 155 (150-450) 10^3/uL BMP 09/18/23 09/19/23 05:17 05:11 Sodium 142 142 Potassium 4.0 4.3 Chloride 103 105 Carbon Dioxide 28.2 29.6 BUN 32.0 H 31.0 H Creatinine 1.20 H 1.08 H Glucose 148 H 166 H Calcium 8.1 L 7.8 L Liver Function 09/18/23 09/19/23 Range/Units 05:17 05:11 Total Bilirubin 0.3 0.3 (0.2-1.0) mg/dL AST 36 30 (15-37) U/L ALT 40 30 (14-59) U/L Alkaline Phosphatase 99 76 (46-116) U/L Albumin 3.2 L 2.9 L (3.4-5.0) g/dL Progress Note: A&P Assessment and Plan (1) Pneumonia: Qualifiers: Laterality: bilateral Lung location: unspecified part of lung Pneumonia type: due to unspecified organism Qualified Code(s): J18.9 - Pneumonia, unspecified organism (2) Acute respiratory distress: (3) Asthma exacerbation in COPD: Plan Findings on admission: Sinus tachycardia, respiratory distress, uncontrolled hypertension, acute hypoxia with O2 saturation of 84% requiring BiPAP to improve O2 saturations to 90% which is resulted in acute hypoxic respiratory failure causing an acute exacerbation of COPD.. That improved throughout the breathing treatments to 94 on BiPAP. This is due to bilateral pneumonia secondary to COVID-19, white blood cell count normal but with significant left shift suggesting bacterial pattern. Bilateral pneumonia secondary to [id number], steroids, aerosol treatments, Zyrtec, Pepcid. Patient has been able to be titrated down to 6 L by nasal cannula and will work on titrating that further down today. Overall improved, still with very significant dyspnea with any activity just walking to the bathroom about 15 feet, will wean steroids today Diabetes mellitus-insulin sliding scale. Likely to be elevated secondary to COVID-19 and treatment for COVID-19 Acute kidney injury persisting, baseline creatinine of 0.9, creatinine on admission 1.22 which would be 135.5% above baseline. Continues to improve, Hypomagnesemia-supplement Iron deficiency anemia-monitor daily stable today Elevated liver function test likely secondary to [id number] daily, patient without abdominal pain. Improved today Acute diarrhea-May need treatment with Imodium, will try Levsin initially. Hypercholesterolemia-diet management and medications Hypothyroidism-TSH slightly suppressed. Continue with current dosing. Diabetic peripheral neuropathy-continue with current medications Back pain with muscle spasm-continue with home medications History of chronic combined congestive heart failure-BNP is elevated today, give 1 dose of IV Lasix today. And saline lock. Admission status: Patient with failed outpatient treatment of acute COVID-19 with progressive pneumonia with bilateral infiltrates, significant hypoxia to the degree of acute hypoxic respiratory failure requiring BiPAP. Medically necessary treatment will span 2 midnights. Inpatient status. Hopeful for discharge tomorrow
[2023-09-19 07:26] LABS: Glucometer 180 mg/dL (74-106)
--- NOTE | 2023-09-19 08:06 | PM.PN ---
Progress Note: Subjective Subjective Interval history: Patient seems generalized anxious, seems fairly comfortable with her breathing this morning. Exam Constitutional Vital Signs, click to edit/add: Last Vital Signs Temp 98.0 F 09/19/23 07:33 Pulse 58 L 09/19/23 07:51 Resp 20 09/19/23 07:33 BP 182/90 H 09/19/23 07:33 Pulse Ox 89 L 09/19/23 07:33 O2 Del Method Nasal Cannula 09/19/23 05:12 O2 Flow Rate 4 09/19/23 05:12 FiO2 30 09/18/23 10:13 Progress Note: Objective Labs Labs: Short CBC 09/19/23 Range/Units 05:11 WBC 3.3 L (4.0-11.0) 10^3/uL Hgb 9.6 L (12.0-16.0) g/dL Hct 29.7 L (36.0-48.0) % Plt Count 155 (150-450) 10^3/uL BMP 09/19/23 05:11 Sodium 142 Potassium 4.3 Chloride 105 Carbon Dioxide 29.6 BUN 31.0 H Creatinine 1.08 H Glucose 166 H Calcium 7.8 L Liver Function 09/19/23 Range/Units 05:11 Total Bilirubin 0.3 (0.2-1.0) mg/dL AST 30 (15-37) U/L ALT 30 (14-59) U/L Alkaline Phosphatase 76 (46-116) U/L Albumin 2.9 L (3.4-5.0) g/dL Progress Note: A&P Assessment and Plan (1) Pneumonia: Qualifiers: Laterality: bilateral Lung location: unspecified part of lung Pneumonia type: due to unspecified organism Qualified Code(s): J18.9 - Pneumonia, unspecified organism (2) Acute respiratory distress: (3) Asthma exacerbation in COPD:
[2023-09-19] MEDS: FAMOTIDINE/PF 20 MG/2 ML VIAL 40 MG IV ×2 (08:45→21:00)
[2023-09-19] MEDS: INSULIN ASPART 300 UNIT/3 ML PEN SUBQ ×2 (08:45→12:13)
[2023-09-19] MEDS: ENOXAPARIN SODIUM 40 MG/0.4 ML SYRINGE SUBQ (08:45)
[2023-09-19] MEDS: METHYLPREDNISOLONE SOD SUCC PF 125 MG/2 ML VIAL 60 MG IVP ×3 (08:45→20:59)
[2023-09-19] MEDS: POTASSIUM CHLORIDE 10 MEQ ER TABLET 20 MEQ PO ×2 (08:46→21:00)
[2023-09-19] MEDS: AMANTADINE HCL 100 MG CAPSULE PO (08:46)
[2023-09-19] MEDS: FISH OIL 1,000 MG CAPSULE 1000 MG PO (08:46)
[2023-09-19] MEDS: LEVETIRACETAM 250 MG TABLET PO ×2 (08:46→21:00)
[2023-09-19] MEDS: ATORVASTATIN CALCIUM 40 MG TABLET PO (08:46)
[2023-09-19] MEDS: MAGNESIUM OXIDE 400 MG TABLET PO ×2 (08:46→21:00)
[2023-09-19] MEDS: TIZANIDINE HCL 4 MG TABLET PO (08:46)
[2023-09-19] MEDS: ASPIRIN 81 MG TABLET.DR PO (08:46)
[2023-09-19] MEDS: AMLODIPINE BESYLATE 5 MG TABLET PO (08:46)
[2023-09-19] MEDS: CETIRIZINE HCL 10 MG TABLET PO (08:46)
[2023-09-19] MEDS: FUROSEMIDE 40 MG/4 ML VIAL IVP (08:47)
[2023-09-19] MEDS: CEFTAZIDIME 1,000 MG in 0.9 % SODIUM CHLORIDE 50 ML 100 MG IV ×2 (08:48→20:57)
--- NOTE | 2023-09-19 08:59 | CM.NOTE ---
Rounds made with Dr. Ray. Conchis states currently uses oxygen at home- currently at [facility]. Continue with current treatment plan.
[2023-09-19] MEDS: BUDESONIDE 0.5 MG/2 ML AMPULE NEB IH ×2 (11:16→23:16)
[2023-09-19 11:18] LABS: Glucometer 263 mg/dL (74-106)
--- NOTE | 2023-09-19 11:22 | SWNOTE1 ---
SW met with pt to discuss dc needs. Pt was just discharged from hospital on Tuesday and returned. Pt voiced she was having a hard time breathing, but is feeling better right now. Pt wears chronic home oxygen, 3 liters. Pt plans on returning to [facility] at discharge and acknowledges she needs to be stronger before returning home. Pt is NOT a precert to return. SW faxed over updates to the [facility]. Important Message from Medicare reviewed and discussed with patient. Pt. verbalized understanding and signed the form. Original given to patient and copy placed in patient?s chart.
[2023-09-19] MEDS: OXcarbazepine 150 MG TABLET 450 MG PO ×2 (13:11→23:36)
[2023-09-19 16:22] LABS: Glucometer 141 mg/dL (74-106)
[2023-09-19] MEDS: 0.9 % SODIUM CHLORIDE 250 ML 10 ML IV (17:02)
[2023-09-19] MEDS: REMDESIVIR 100 MG in 0.9 % SODIUM CHLORIDE 100 ML 200 MG IV (17:28)
[2023-09-19] MEDS: GUAIFENESIN 600 MG TAB.ER.12H PO (21:00)
[2023-09-19] MEDS: ALPRAZOLAM 0.5 MG TABLET PO (21:00)
[2023-09-19] MEDS: BENZONATATE 100 MG CAPSULE 200 MG PO (21:00)
[2023-09-19] MEDS: LEVOFLOXACIN IN DEXTROSE 5 % 750 MG/150 ML IV.SOLN 50 MG IV (21:01)
[2023-09-19 21:19] LABS: Glucometer 230 mg/dL (74-106)
[2023-09-19] MEDS: ALPHA LIPOIC ACID 600 MG 600 EACH PO (23:39)
[2023-09-19] MEDS: ROPINIROLE HCL 1 MG TABLET PO (23:40)
[2023-09-20] VITALS (7 sets, daily range): BP systolic 137–182; BP diastolic 56–74; PULSE 18–69; TEMP 36.5–36.6; O2SAT 86–95
[2023-09-20] MEDS: CLINDAMYCIN PHOS 300 MG/50 ML PIGGYBACK 100 MG IV ×2 (00:34→05:07)
[2023-09-20] MEDS: METHYLPREDNISOLONE SOD SUCC PF 125 MG/2 ML VIAL 60 MG IVP (02:19)
[2023-09-20] MEDS: OXcarbazepine 150 MG TABLET 450 MG PO (05:07)
[2023-09-20] MEDS: ACETAMINOPHEN 500 MG TABLET 1000 MG PO (05:07)
[2023-09-20] MEDS: PREGABALIN 100 MG CAPSULE PO (05:07)
[2023-09-20] MEDS: ALPHA LIPOIC ACID 600 MG 600 EACH PO (05:08)
[2023-09-20] MEDS: IPRATROPIUM/ALBUTEROL SULFATE 3 ML AMPUL.NEB IH (05:12)
[2023-09-20] MEDS: LEVOTHYROXINE SODIUM 75 MCG TABLET 150 MCG PO (05:54)
[2023-09-20 08:08] LABS: Glucometer 179 mg/dL (74-106)
--- NOTE | 2023-09-20 08:15 | PC.NURSE ---
Access called for PICC 09/20/23 0801 MM
[2023-09-20] MEDS: INSULIN ASPART 300 UNIT/3 ML PEN SUBQ (08:31)
--- NOTE | 2023-09-20 08:38 | P.DS_ITS ---
DS: Providers Provider Date of admission: 09/17/23 15:40 Primary care physician: SONG DICKENS DO Consults: 09/17/23 15:56 Consult to Pharmacy Routine Consulting Provider: Reason for consultation: Please [place] me when Med Rec is Updated Has provider been notified: No Occupational Therapy Eval and Treat Routine Reason for consultation: Only if needed for Rehab Has provider been notified: No Physical Therapy Eval and Treat Routine Reason for consultation: Eval and Treat Has provider been notified: No DS: Diagnosis Discharge Diagnosis (1) Pneumonia: Qualifiers: Laterality: bilateral Lung location: unspecified part of lung Pneumonia type: due to unspecified organism Qualified Code(s): J18.9 - Pneumonia, unspecified organism (2) Acute respiratory distress: (3) Asthma exacerbation in COPD: Plan Findings on admission: Sinus tachycardia, respiratory distress, uncontrolled hypertension, acute hypoxia with O2 saturation of 84% requiring BiPAP to improve O2 saturations to 90% which is resulted in acute hypoxic respiratory failure causing an acute exacerbation of COPD.. Overall improving, not quite back to baseline, still requiring 4 L Bilateral pneumonia secondary to [id number], steroids, aerosol treatments, Zyrtec, Pepcid. Patient has been able to be titrated down to 6 L by nasal cannula and will work on titrating that further down today. Improving at time of discharge Diabetes mellitus-insulin sliding scale. Stable at the time of discharge Acute kidney injury persisting, baseline creatinine of 0.9, creatinine on admission 1.22 which would be 135.5% above baseline. Labs pending at the time of discharge Hypomagnesemia-supplement Iron deficiency anemia-monitor daily stable today L Elevated liver function test likely secondary to [id number] daily, patient without abdominal pain. Improved today Acute diarrhea-May need treatment with Imodium, will try Levsin initially. Hypercholesterolemia-diet management and medications Hypothyroidism-TSH slightly suppressed. Continue with current dosing. Diabetic peripheral neuropathy-continue with current medications Back pain with muscle spasm-continue with home medications History of chronic combined congestive heart failure-BNP is elevated today, give 1 dose of IV Lasix today. And saline lock. Admission status: Patient with failed outpatient treatment of acute COVID-19 with progressive pneumonia with bilateral infiltrates, significant hypoxia to the degree of acute hypoxic respiratory failure requiring BiPAP. Medically necessary treatment will span 2 midnights. Inpatient status. Hopeful for discharge tomorrow DS: Summary Hospital Course Hospital Course: Patient was initially treated as an inpatient for pneumonia and then developed COVID. They attempted to treat as an outpatient. Oral medications were ineffective and she became severely hypoxic, presented to emergency room with bilateral pulmonary infiltrates consistent with acute COVID-19 pneumonia but with a left shift consistent with a bacterial process. Patient was placed on IV antibiotics, IV remdesivir, steroids. Initially placed on high flow nasal cannula O2 now she is down to 4 L. This is above her baseline of 3 L. At this point she is medically stable for returning back to her rehab facility. Labs are pending this morning. But assuming no unusual findings with the labs she will be discharged to rehab today. Medications see list. Follow-up with her PCP after discharge from rehab. Status at Discharge Overall status at discharge: patient is not back to baseline Time Spent with Patient Time attestation: Total time spent providing and/or coordinating discharge services: Time spent: greater than 30 minutes Exam Constitutional Vital Signs, click to edit/add: Last Vital Signs Temp 97.7 F 09/20/23 04:00 Pulse 63 09/20/23 08:00 Resp 20 09/20/23 05:12 BP 182/74 H 09/20/23 04:00 Pulse Ox 95 09/20/23 08:00 O2 Del Method Nasal Cannula 09/20/23 04:00 O2 Flow Rate 4 09/20/23 04:00 FiO2 30 09/18/23 10:13 Documenting provider has reviewed patient's vital signs: yes Common normals: apparent distress (Moderate conversational dyspnea, improved during evaluation) Chest Common normals: inspection of chest normal Respiratory Common normals: abnormal respiratory effort (Breathing much more comfortable) Effort & inspection: normal respiratory pattern (Tachypnea resolved) Auscultation: rhonchi (Minimal rhonchi today); no wheezes Cardio Common normals: no JVD, regular rate and regular rhythm GI Common normals: Normal to inspection, nondistended, normoactive bowel sounds present Extremity Common normals: normal to inspection and full ROM; clubbing, cyanosis or edema (Trace edema this morning) DS: Data Data Completed and Pending Labs on day of discharge: Labs from last 24 hours 09/20/23 09/19/23 09/19/23 08:06 21:07 16:21 POC Glucose 179 H 230 H 141 H 09/19/23 11:16 POC Glucose 263 H Preliminary micro results at discharge 09/17/23 13:53 - Preliminary Blood NO GROWTH AT 36-48 HOURS. FINAL TO FOLLOW. 09/17/23 13:44 Blood Culture Result 1 - Preliminary Blood NO GROWTH AT 36-48 HOURS. FINAL TO FOLLOW. Discharge Plan Discharge Disposition: Xfer [facility] Discharge Medications: New cefdinir 300 mg capsule 600 mg PO DAILY 5 Days Qty: 10 0RF clindamycin HCl 300 mg capsule 300 mg PO Q6H 5 Days Qty: 20 0RF prednisone 10 mg tablet 40 mg PO DAILY Qty: 32 0RF Rx Instructions: 4/day for 3 days, 3/day for 3 days, 2/day for 3 days, 1/day for 3 days, 1/2 /day for 4 days Continued amantadine HCl 100 mg tablet 100 mg PO DAILY atorvastatin 40 mg tablet 40 mg PO DAILY alpha lipoic acid 600 mg capsule 600 mg PO TID aspirin 81 mg capsule 81 mg PO DAILY levetiracetam [Keppra] 250 mg tablet 250 mg PO BID levothyroxine 150 mcg capsule 150 mcg PO DAILY omega-3 fatty acids Capsule 1,000 mg PO DAILY oxcarbazepine 300 mg tablet 450 mg PO TID potassium chloride [K-Tab] 20 mEq tablet extended release 20 meq PO BID cetirizine [24Hour Allergy] 10 mg tablet 10 mg PO DAILY furosemide [Lasix] 40 mg tablet 40 mg PO DAILY pregabalin [Lyrica] 100 mg capsule 200 mg PO TID guaifenesin [Mucinex] 600 mg tablet extended release 12hr 600 mg PO BID PRN (Reason: cough) acetaminophen [Aphen] 325 mg tablet 650 mg PO Q6H PRN (Reason: pain) insulin lispro [Humalog KwikPen Insulin] 100 unit/mL insulin pen 1 sliding scale dose subcut ACHS Rx Instructions: 150-200=3units; 201-250=5units; 251-300=8 units; 31-350=10units; 351- 400=12units; if greater than give 15 units and call MD Print Language: Citizen [place] [employer] 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
--- NOTE | 2023-09-20 08:40 | CM.NOTE ---
Rounds made with Dr. Ray. Discharge to [facility] as before.
[2023-09-20] MEDS: ENOXAPARIN SODIUM 40 MG/0.4 ML SYRINGE SUBQ (08:46)
[2023-09-20] MEDS: ATORVASTATIN CALCIUM 40 MG TABLET PO (08:46)
[2023-09-20] MEDS: FISH OIL 1,000 MG CAPSULE 1000 MG PO (08:46)
[2023-09-20] MEDS: TIZANIDINE HCL 4 MG TABLET PO (08:46)
[2023-09-20] MEDS: ASPIRIN 81 MG TABLET.DR PO (08:46)
[2023-09-20] MEDS: CETIRIZINE HCL 10 MG TABLET PO (08:46)
[2023-09-20] MEDS: LEVETIRACETAM 250 MG TABLET PO (08:46)
[2023-09-20] MEDS: AMLODIPINE BESYLATE 5 MG TABLET PO (08:46)
[2023-09-20] MEDS: MAGNESIUM OXIDE 400 MG TABLET PO (08:46)
[2023-09-20] MEDS: POTASSIUM CHLORIDE 10 MEQ ER TABLET 20 MEQ PO (08:46)
[2023-09-20] MEDS: AMANTADINE HCL 100 MG CAPSULE PO (08:46)
[2023-09-20] MEDS: PREDNISONE 20 MG TABLET 40 MG PO (09:19)
[2023-09-20] MEDS: FAMOTIDINE 20 MG TABLET 40 MG PO (09:19)
--- NOTE | 2023-09-20 09:50 | SWNOTE1 ---
Pt is ready for discharge today. Updates sent to [facility] and will send dc med rec once completed. SW called [facility] and they are able to transport pt at 10:30am. SW called and confirmed with nurse. [facility] will be here at 10:30am. Pt is returning to [facility] skilled.
--- NOTE | 2023-09-20 09:51 | REH.PTDLY ---
Physical Therapy Daily Note PT Daily Note/Assess Start: 09/19/23 13:04 Freq: Status: Active Protocol: Document 09/20/23 09:50 NEAL (Rec: 09/20/23 09:51 NEAL [id number]) Visit Not Completed Visit Not Completed Due to: Pt refusing Other Reason Visit Not Completed Pt gathering her things into bag on bedside table. States she gets to go back to [facility] today. When asked about participating in therapy pt states I would rather wait until I get back, I do not have shoes here and I am more comfortable walking and doing exs with shoes on Physical Therapy Daily Note/Assessment Time In 09:45 Time Out 09:47
[2023-09-20 10:01] LABS: Alanine Aminotransferase 37 U/L (14-59); Albumin Level 3.4 g/dL (3.4-5.0); Alkaline Phosphatase 89 U/L (46-116); Anion Gap 12.9; Aspartate Amino Transferase 31 U/L (15-37); BUN Creatinine Ratio 26.3; Bilirubin Total 0.4 mg/dL (0.2-1.0); Calcium 8.2 mg/dL (8.5-10.1); Carbon Dioxide 27.6 mmol/L (21.0-32.0); Chloride 105 mmol/L (98-107); Estimated GFR (African America 57 (>=60); Estimated GFR (Non-African Ame 47 (>=60); Globulin 3.5 g/dL; Glucose 173 mg/dL (74-106); Potassium 4.5 mmol/L (3.5-5.1); Sodium 141 mmol/L (136-145); Total Protein 6.9 g/dL (6.4-8.2)
[2023-09-20 10:06] LABS: Hematocrit 32.1 % (36.0-48.0); Hemoglobin 10.2 g/dL (12.0-16.0); Mean Corpuscular HGB Conc 31.8 g/dL (29.9-35.2); Mean Corpuscular Hemoglobin 29.7 pg (26.7-34.0); Mean Corpuscular Volume 93.3 fL (81.0-99.0); Mean Platelet Volume 10.2 fL (9.5-13.5); Platelet Count 192 10^3/uL (150-450); Red Blood Count 3.44 10^6/uL (4.20-5.40); Red Cell Distribution Width 14.8 % (11.0-15.0); White Blood Count 4.9 10^3/uL (4.0-11.0)
[2023-09-20] MEDS: FUROSEMIDE 40 MG TABLET 80 MG PO (10:14)
[2023-09-20 10:26] LABS: Band Neutrophils Absolute 0.1 10^3/uL (0.0-0.3); Lymphocytes Absolute Manual 0.44 10^3/uL (1.20-3.80); Segmented Neut Absolute Manual 4.16 10^3/uL (1.4-6.5)
[2023-09-20 10:27] LABS: Anisocytosis 1+; Metamyelocytes Absolute Manual 0.09; Monocytes Absolute Manual 0.04 10^3/uL (0.30-0.80); Ovalocytes 1+
== END 2023-09-20 11:10 | DRG 177 ==
LOC: ER 14:48 → MS 15:44
PROVIDERS: Admitting Provider Family Medicine; Emergency Provider Emergency Medicine; PCP Family Medicine; Visit Provider Family Medicine
DX: U07.1 COVID-19 (principal); J12.82 Pneumonia due to coronavirus disease 2019; J96.01 Acute respiratory failure with hypoxia; N17.9 Acute kidney failure, unspecified; J44.1 Chronic obstructive pulmonary disease with (acute) exacerbation; J45.901 Unspecified asthma with (acute) exacerbation; J44.0 Chronic obstructive pulmonary disease with (acute) lower respiratory infection; I50.42 Chronic combined systolic (congestive) and diastolic (congestive) heart failure; I13.0 Hypertensive heart and chronic kidney disease with heart failure and stage 1 through stage 4 chronic kidney disease, or unspecified chronic kidney disease; R00.0 Tachycardia, unspecified; E83.42 Hypomagnesemia; D50.9 Iron deficiency anemia, unspecified; R79.89 Other specified abnormal findings of blood chemistry; R19.7 Diarrhea, unspecified; E78.00 Pure hypercholesterolemia, unspecified; E03.9 Hypothyroidism, unspecified; E11.42 Type 2 diabetes mellitus with diabetic polyneuropathy; M54.9 Dorsalgia, unspecified; M62.830 Muscle spasm of back; Z87.891 Personal history of nicotine dependence; N18.32 Chronic kidney disease, stage 3b; I25.10 Atherosclerotic heart disease of native coronary artery without angina pectoris; E11.22 Type 2 diabetes mellitus with diabetic chronic kidney disease; I25.2 Old myocardial infarction; Z90.49 Acquired absence of other specified parts of digestive tract; Z90.710 Acquired absence of both cervix and uterus; Z79.4 Long term (current) use of insulin; Z79.82 Long term (current) use of aspirin
CPT/HCPCS: 36415; 36600; 71045; 80053; 82805; 82948; 83605; 83735; 83880; 84436; 84443; 84484; 85007; 85025; 85027; 85378; 85610; 87040; 87045; 87046; 87070; 87205; 87427; 87493; 93005; 94640; 94660; 94667; 94668; 94761; 94799; 96361; 96365; 96366; 96367; 96368; 96372; 96375; 96376; 97161; 97165; 99291; 99292; G0328; J0248; J0456; J0713; J1650; J1940; J2919; J7512

== ENCOUNTER 2024-04-29 12:01 | Emergency (ER) | payer MEDICARE, BC, SELFPAY ==
[2024-04-29] VITALS (10 sets, daily range): BP systolic 125–172; BP diastolic 51–78; PULSE 56–85; TEMP 36.8; O2SAT 93–98; BMI 31.4
--- NOTE | 2024-04-29 12:08 | ECG_ITS ---
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
[2024-04-29 12:10] LABS: Glucometer 109 mg/dL (74-106)
--- OUTSIDE RECORDS SUMMARY | 2024-04-29 12:17 | XMS_ITS | CCD ---
Author Organization [facility] Care Team Providers Care Sales And Catering Coordinator Name Role Phone DR ANA CRISTINA HI Admitting Unavailable JAVIER, DR ANA CRISTINA Garcia Consulting Unavailable DR ANA CRISTINA HI Attending Unavailable DR NETO ARAUZ Primary Care Unavailable Buster Ramirez Consulting Unavailable Neto Arauz Unavailable DO Neto Arauz Primary Care Provider MD Nirnajan Hi Emergency Provider [phone] DO Lucian Bruno Admit Provider [phone] DO Lucian Bruno Attending Provider DO Neto Arauz Primary Care Provider [phone] MD Niranjan Hi Emergency Provider DO Lucian Bruno Admit Provider [phone] MD Ferdinand Norris Other Provider MD José Luis Fuentes Attending Provider Dr. Ferdinand Galdamez Attending Unava ilable DO Que Cam Emergency Provider [phone] DO Neto Arauz Primary Care Provider DO Neto Arauz Attending Provider Unavailable Primary Care Provider UnavailDO Neto Russell Primary Care Provider MD Saturnino Cortés Emergency Provider MD Mejia Aaron Admit Provider MD Mejia Aaron Attending Provider [phone] DO Jaylan Child Attending Provider MD Frank Hudson Admit Provider MD Frank Hudson Attending Provider MD Herrera Kern Other Provider Neto Arauz DO Primary Care Provider DO Adán Arthur Primary Care Provider [phone] DO Adán Arthur Attending Provider [phone] DO Neto Arauz Attending Provider SUSAN REYES Attending Unavailable SUSAN REYES Attending Unavailable DO Neto Arauz Primary Care Provider DO Sandor Mcduffie Emergency Provider UnaMD Mejia Jarrett Admit Provider MD Mejia Aaron Attending Provider MD Yaakov Garcia Attending Provider [phone] MD Niranjan Hi Emergency Provider Neto Arauz DO Primary Care Provider [phone] JESSICA HI Attending Unavailable NETO ARAUZ Primary Care Unavailable FERDINAND GALDAMEZ Attending Unavailable NETO ARAUZ Primary Care Unavailable Sandor Mcduffie DO Emergency Provider Unavai Neto Avila DO Primary Care Provider Mejia Aaron MD Admit Provider Yaakov Garcia MD Attending Provider Adán Arthur DO Primary Care Provider [phone] Niranjan Hi MD Emergency Provider Neto Arauz DO Attending Provider [phone] KALEIGH NATION Referring Unavailable Neto Arauz DO Primary Care Provider Kaleigh Nation APRN Attending Provider Anderson Gould DO Emergency Provider Jenny Matias DOopher Admit Provider Clarence Matias DO Attending Provider [phone] Roberto Singh MD [facility] Emergency Provider Jus Perla MD Attending Provider Anderson Carlson MD Other Provider NETO ARAUZ Primary Care Physician Neto Arauz DO Primary Care Provider Neto Arauz DO Attending Provider [phone] Kaleigh Nation APRN Attending Provider [facility], Anderson Lerma Emergency Provider Clarence Matias DO Admit Provider Clarence Matias DO Attending Provider Roberto Singh MD Other Provider [phone] [facility] Emergency Provider Jus Perla MD Attending Provider Anderson Carlson MD Other Provider Jose Min PA-C Emergency Provider Adán Arthur DO Primary Care Provider Mejia Aaron MD Admit Provider Mejia Aaron MD Attending Provider KAELYN ROY Attending Unavailable Yaakov Garcia MD Attending Provider Kaleigh Nation Admitting Unavailable Kaleigh Nation Attending Unavailable Neto Arauz Primary Care Unavailable Adán Arthur Attending Unavailable Adán Arthur Primary Care Unavailable Adán Arthur Admitting Unavailable Neto Arauz Attending Unavailable Neto Arauz Primary Care Unavailable Neto Arauz Admitting Unavailable Chela, Neto Admitting Unavailable Neto Arauz Attending Unavailable Chela, Neto Primary Care Unavailable Anna Child Consulting Unavailable Yaakov Garcia Attending Unavailable Doamekpor, Mejia E Admitting Unavailab le Kuns, Neto Primary Care Unavailable Amy Damian Consulting Unavailable Yaakov Garcia Attending Unavailable Docarlos albertoor, Mejia E Admitting Unavailab Adán Carrera Primary Care Unavailable Ciro Galdamez Consulting Unavailable Nicole, Juliana Consulting Unavailable Ferdinand Norris Consulting Unavail able Tasha Kidd Consulting Unavailable Ranjit Christianson Consulting Unavailab Jessica Alberto Consulting Unavailable Karen Johnson Consulting Unavailable Cayetano, Charlee Najeeb Consulting Unavailab emily Ferguson, Tarek Consulting Unavailable Rita Garcia Consulting Unavailable Jaylan Child Attending Unavailable Amy Damian Consulting Unavailable Mariaelenaor, Mejia E Admitting Unavailab le Chela, Neto Primary Care Unavailable Ciro Galdamez Consulting Unavailable Juliana Rivera Consulting Unavailable Ferdinand Norris Consulting Unavail able Tasha Kidd Consulting Unavailable Ranjit Christianson Consulting Unavailab Jessica Alberto Consulting Unavailable Karen Johnson Consulting Unavailable Cayetano, Charlee Najeeb Consulting Unavailab emily Ferguson, Tarek Consulting Unavailable Rita Garcia Consulting Unavailable Abbie Dumas Consulting Unavailable Frank Hudson Attending Unavailable Frank Hudson Admitting Unavailable Keena Kern Consulting Unavailable Chela, Neto Primary Care Unavailable Lindclementoom, Clarence Admitting Unavailabl e Mariah Matiaser Attending Unavailabl e Roberto Singh Consulting Unavaila ble Chela, Neto Primary Care Unavailable Jus Perla Attending Unavailable Anderson Carlson Consulting Unavailable Lindbloom, Clarence Admitting Unavailabl e Bahmans, Neto Primary Care Unavailable Niranjan Hi Admitting Unavailable Niranjan Hi Attending Unavailable Adán Arthur Primary Care Unavailable Allergies Allergy Classification Reported Allergen(s) Allergy Type Date of Onset Reaction(s) Facility Penicillins (antibiotic) (1 source) Penicillins Drug Allergy 08-18-19 24 Unknown Reaction [facility] Sulfonamides (antibiotic) (1 source) Sulfamethoxazole Drug Allergy 08-18-19 24 [facility] (19 sources) Penicillins; Translations: [PENICILLINS] Drug allergy (disorder) 01-22-20 14 Unknown Reaction [facility] Rep[facility] (1 source) Sulfonamides (Antibiotic) Drug allergy (disorder) 01-22-20 14 [facility] Repository (20 sources) Penicillin; Translations: [penicillin] Drug Allergy Unknown (qualifier value) [facility] (20 sources) Sulfamethoxazole Drug Allergy 07-25-19 24 [facility] (2 sources) Penicillins Drug Allergy 08-29-19 23 [facility] (3 sources) Sulfanilamide; Translations: [SULFANILAMIDE] Drug Allergy 06-29-19 24 [facility] Work Phone: (1 source) Penicillins Drug Allergy 08-29-19 23 [facility] (1 source) Sulfanilamide Allergy to substance 06-29-19 24 [facility] (2 sources) Sulfonamide; Translations: [sulfonamides] Drug allergy Unknown (qualifier value) [facility] (1 source) Penicillins Drug allergy (disorder) 03-15-19 25 [facility] Repository (1 source) Sulfamethoxazole Drug Allergy 03-15-19 25 [facility] Repository Medications Current Medications Medication Drug Class(es) Dates Sig (Normalized) Sig (Original) 30 ACTUAT fluticasone furoate 0.2 MG/ACTUAT / umeclidinium 0.0625 MG/ACTUAT / vilanterol 0.025 MG/ACTUAT Dry Powder Inhaler [Trelegy] (14 sources) Start: 11-18-2020 take 1 puff(s) by inhalation once daily Trelegy Ellipta 200-62.5-25 MCG/INH 1 puff Inhalation Once a day samples 14 Nov, 2020 Active Adult Aerosol Mask - (1 source) Start: 03-04-2023 Adult Aerosol Mask - 3-4 times a day with albuterol nebulizer treatment inhalation mask daily as directed for 90 days Feb, Active Albuterol (20 sources) beta2-Adrenergic Agonist Start: 03-22-2024 albuterol 90 mcg, Inhalation, Refills(s) 0 Start Date: 03/22/24 Status: Ordered Start: 11-18-2023 take 1 puff(s) by in halation every eight hours as needed for wheezing Albuterol Sulfate 90 mcg/actuation HFA aerosol inhaler Active 2 PUFF INHALATION Every 8 hours as needed for shortness of breath or wheezing November 17, 2023 11:00pm Start: 08-11-2023 take 2.5 mg by inhal ation every three hours as needed Albuterol Sulfate 2.5 mg /3 mL (0.083 %) Solution For Nebulization Active 2.5 MG INHALATION Q3H as needed for Shortness Of Breath 0 August 10, 2023 11:00pm Start: 06-24-2023 albuterol 90 m cg/actuation inhaler 3 times a day. 06/24/2023 Active Start: 06-24-2023 End: 10-11-2023 take 3 mL by inhalation three times daily Albuterol Sulfate 2.5 mg /3 mL (0.083 %) solution for nebulization Discontinued 2.5 MG INHALATION Three times daily June 23, 2023 11:00pm October 11, 2023 8:27am FreeTextSi ml Inhalation every 8 hrs; Note: Source Status: Refill; Refills: 1; Qty: 810 ml; Provider: Chela Arguello Start: 06-24-2023 take 3 mL by inhalat ion every eight hours Albuterol Sulfate Active 2.5 MG INHALATION Every 8 hours June 24, 2023 12:00am FreeTextSi ml Inhalation every 8 hrs; Note: Source Status: Refill; Refills: 1; Qty: 810 ml; Provider: Chela Arguello Start: 06-24-2023 take 3 mL by inhalat ion every eight hours Albuterol Sulfate Active MG INHALATION June 24, 2023 12:00am FreeTextSi ml Inhalation every 8 hrs; Note: Source Status: Refill; Refills: 1; Qty: 810 ml; Provider: Chela Arguello Start: 06-24-2023 End: 08-07-2023 Albuterol Sulfate (Proair Hf a) 90 mcg/actuation HFA aerosol inhaler Discontinued 1 INH INHALATION Every 6 hours June 23, 2023 11:00pm August 06, 2023 11:09pm Start: 08-28-2022 End: 11-18-2023 Start: 08-28-2022 End: 11-18-2023 take 1 puff(s) by inhalation every four hours as needed for wheezing Albuterol Sulfate 90 mcg/actuation HFA aerosol inhaler Discontinued 1 PUFF INHALATION Every 4 hours as needed for shortness of breath or wheezing June 23, 2023 11:00pm November 08, 2023 9:07am FreeTextSi puff as needed Inhalation every 4 hrs; Note: Source Status: Taking; Refills: 5; Provider: Chela Arguello Start: 06-29-2022 take 1 puff(s) by in halation every four hours as needed Albuterol Sulfate HFA 108 (90 Base) MCG/ACT 1 puff as needed Inhalation every 4 hrs Jun, Active Start: 06-29-2022 take 1 puff(s) by in halation every four hours as needed Albuterol Sulfate HFA 108 (90 Base) MCG/ACT 1 puff as needed Inhalation every 4 hrs Jun, Active Start: 06-29-2022 take 1 puff(s) by in halation every four hours as needed Albuterol Sulfate HFA 108 (90 Base) MCG/ACT 1 puff as needed Inhalation every 4 hrs Jun, Active Start: 12-31-2021 take 1 puff(s) by in halation every four hours as needed ProAir RespiClick 108 (90 Base) MCG/ACT *CATERINA* 1 puff as needed Inhalation every 4 hrs *CATERINA* Dec, Active Start: 07-19-2017 End: 06-24-2023 take 1.25 mg by inhalation every four hours as needed for wheezing Albuterol Sulfate 2.5 mg /3 mL (0.083 %) solution for nebulization Discontinued 1.25 MG INHALATION Q4H as needed for shortness of breath or wheezing July 18, 2017 11:00pm June 24, 2023 1:24pm Start: 07-19-2017 End: 08-08-2018 take 2.5 mg by inhalation four times daily Albuterol Sulfate 2.5 mg /3 mL (0.083 %) Solution For Nebulization Discontinued 2.5 MG INHALATION Four times daily - Respiratory 0 July 18, 2017 11:00pm August 08, 2018 3:34pm Start: 07-17-2017 End: 10-11-2023 Start: 07-17-2017 End: 07-19-2017 Albuterol Sulfate 2.5 mg /3 mL (0.083 %) Solution For Nebulization Discontinued 1 INH INHALATION Twice daily as needed for Shortness Of Breath July 16, 2017 11:00pm July 19, 2017 12:05pm Start: 07-17-2017 End: 08-28-2022 take 1 puff(s) by inhalation every four to six hours Albuterol Sulfate Discontinued 1 - 2 PUFF INHALATION EVERY 4-6 HOURS July 17, 2017 12:00am August 28, 2022 3:50pm albuterol (2.5 M G/3ML) 0.083% nebulizer solution every 6 (six) hours Active Albuterol Sulfat e (2.5 MG/3ML) 0.083% 3 ml Inhalation every 8 hrs for 90 days Active Albuterol Sulfat e (2.5 MG/3ML) 0.083% 3 ml as needed Inhalation every 8 hrs Active Albuterol 90 MCG/ACT (15 sources) take 1 puff(s) by in halation every four hours as needed Albuterol 90 MCG/ACT 1 puff Inhalation every 4 hrs prn for 90 days Active take 1 puff(s) by in halation every four hours as needed Albuterol 90 MCG/ACT 1 puff Inhalation every 4 hrs prn Active Alpha Lipoic Acid (1 source) Start: 03-22-2024 take 100 mg by mouth once daily Alpha Lipoic Acid 100 mg, Oral, Daily, Refills(s) 0 Start Date: 03/22/24 Status: Ordered Alpha Lipoic Acid 200 MG (7 sources) take 3 capsules by mouth three times daily Alpha Lipoic Acid 200 MG 3 capsules orally tid Active Anoro Ellipta (1 source) Start: 03-22-2024 Anoro Ellipta 1 inh, Inhalation, Refill(s) 0 Start Date: 03/22/24 Status: Ordered Anoro Ellipta 62.5-25 MCG/INH (20 sources) take 1 puff(s) by inhalation once daily Anoro Ellipta 62.5-25 MCG/INH 1 puff Inhalation Once a day for 90 days Active take 1 puff(s) by inhalation onc e daily Anoro Ellipta 62.5-25 MCG/INH 1 puff Inhalation Once a day Samples provided Active take 1 puff(s) by inhalation onc e daily Anoro Ellipta 62.5-25 MCG/INH 1 puff Inhalation Once a day Active Artificial Saliva (Biotene Dry Mouth) lozenge (1 source) Artificial Saliv a (Biotene Dry Mouth) lozenge as directed Mouth/Throat Active Aspirin (20 sources) Platelet Aggregation Inhibitor, Nonsteroidal Anti-inflammatory Drug Start: 03-22-2024 aspirin 81 mg, Chewed, Refills(s) 0 Start Date: 03/22/24 Status: Ordered Start: 07-17-2017 End: 06-24-2023 Biotene Dry Mouth - (20 sources) Biotene Dry Mout h - as directed Mouth/Throat Not-Taking Biotene Dry Mout h - as directed Mouth/Throat Active carvedilol 3.125 mg oral tablet (1 source) alpha-Adrenergic Sohail, beta-Adrenergic Sohail Start: 03-28-2024 clonazePAM 1 mg oral tablet (1 source) Benzodiazepine Start: 09-01-2022 take 1 tablet by mouth every twelve hours clonazePAM 1 MG 1 tablet Orally Twice a day for 7 days pt will use the [employer] rx card Aug, Active cyclobenzaprine hydrochloride 10 mg oral tablet (20 sources) Muscle Relaxant Start: 01-25-2024 Start: 06-24-2023 End: 08-18-2023 Start: 07-17-2017 End: 08-29-2022 12 hr dextromethorphan hydrobromide 60 mg / guaiFENesin 1200 mg extended release oral tablet (20 sources) Uncompetitive K-dqqpbl-M-aspartate Receptor Antagonist, Sigma-1 Agonist Start: 03-24-2024 Start: 06-24-2023 End: 08-07-2023 Start: 06-24-2023 End: 08-07-2023 take 1 tablet by mouth once daily as needed for cough Dextromethorphan-Guaifenesin 30-600 mg tablet extended release 12 hr Discontinued 1 TAB PO Daily as needed for cough June 23, 2023 11:00pm August 06, 2023 11:11pm FreeTextSi tablet as needed Orally dly; Note: Source Status: Taking; Provider: Chela Duque ( ) dextromethorphan -guaiFENesin (Mucinex DM) 30-600 MG 12 hr tablet every 12 (twelve) hours Active Mucinex DM 30-60 0 MG 1 tablet as needed Orally dly Active take 1 tablet by kevin th every twelve hours Mucinex DM 30-600 MG 1 tablet as needed Orally every 12 hrs Active 30 actuat fluticasone furoate 0.1 mg/actuat / umeclidinium 0.0625 mg/actuat / vilanterol 0.025 mg/actuat dry powder inhaler (18 sources) Anticholinergic, Corticosteroid, beta2-Adrenergic Agonist Start: 08-07-2023 take 1 puff(s) by inhalation once daily rhkobiolwbh-fjrtkvikw-kubkbwsk (TRELEGY-ELLIPTA) 100-62.5-25 mcg blister with device Inhale 1 puff once daily. 08/07/2023 Active Start: 08-07-2023 End: 10-05-2023 Start: 08-07-2023 End: 10-05-2023 Mvluztyufbr-Tsujbedgk-Zntjvd er (Trelegy Ellipta) 100-62.5-25 mcg blister with device Discontinued 1 INH INHALATION Daily August 06, 2023 11:00pm October 05, 2023 2:49pm Start: 08-07-2023 End: 10-05-2023 Mhybqniiign-Dwytpkobj-Vmjjyu er (Trelegy Ellipta) 100-62.5-25 mcg blister with device Discontinued 1 INH INHALATION Daily August 07, 2023 12:00am October 05, 2023 3:49pm Start: 08-07-2023 Fluticasone-Um eclidin-Vilanter (Trelegy Ellipta) 100-62.5-25 mcg blister with device Active 1 INH INHALATION Daily August 07, 2023 12:00am furosemide 40 mg oral tablet (20 sources) Loop Diuretic Start: 03-28-2024 Start: 03-24-2024 End: 03-28-2024 Start: 10-11-2023 End: 03-18-2024 Start: 06-24-2023 End: 08-18-2023 take 1 tablet by mouth twice daily Furosemide 40 mg tablet Discontinued 40 MG PO Twice daily June 23, 2023 11:00pm August 18, 2023 12:57pm On Hold: hold until follow with nephrology Start: 07-17-2017 End: 08-18-2023 Start: 07-17-2017 End: 06-24-2023 take 2 tablets by mouth once daily Furosemide (Lasix) 40 mg tablet Discontinued 80 MG PO Daily May 19, 2023 7:34am June 24, 2023 1:24pm Start: 02-14-2017 take 1 tablet by kevin th every twelve hours Furosemide 40 mg 1 tablet Orally BID for 90 days Feb, Active guaiFENesin (20 sources) Start: 03-22-2024 take 1 tablet by kevin th every twelve hours Mucinex DM 1 tab(s), Oral, q12hr, Refill(s) 0 Start Date: 03/22/24 Status: Ordered Start: 08-11-2023 End: 11-18-2023 take 1 tablet by mouth twice daily as needed for congestion, then take 1 tablet by mouth every twelve hours as needed for congestion Guaifenesin (Mucinex) 600 mg Tablet Extended Release 12hr Discontinued 600 MG PO Twice daily as needed for Congestion 0 August 10, 2023 11:00pm November 18, 2023 10:31am Start: 07-19-2017 End: 08-08-2018 HYDROcodone-Homatropine 5-1. 5 MG/5ML (20 sources) Start: 06-26-2021 HYDROcodone-Ho matropine 5-1.5 MG/5ML 5 ml Orally every 6 hrs prn Jun, Active Start: 06-26-2021 HYDROcodone-Ho matropine 5-1.5 MG/5ML 5 ml as needed Orally every 6 hrs Jun, Active Inogen Battery (8 sources) Start: 10-20-2023 Inogen Battery Active 0 .Route .MEDSUPPLY October 19, 2023 11:00pm oxygen concentrator battery Start: 10-20-2023 Inogen Battery Active 0 .Route .MEDSUPPLY October 20, 2023 12:00am oxygen concentrator battery 3 ml insulin lispro 100 unt/ml pen injector (2 sources) Insulin Analog insulin lispro ( HumaLOG KwikPen Insulin) 100 unit/mL injection Inject under the skin 3 times daily (morning, midday, late afternoon). Take as directed per insulin instructions. Active levETIRAcetam 250 mg oral tablet (20 sources) Start: 07-26-2023 End: 02-15-2024 Start: 07-26-2023 Levetiracetam Active MG PO July 26, 2023 12:00am levoFLOXacin 750 mg oral tab let (20 sources) Quinolone Antimicrobial Start: 03-28-2024 Start: 11-21-2023 End: 01-25-2024 Start: 08-11-2023 End: 08-18-2023 Start: 08-11-2023 End: 08-18-2023 Levofloxacin 750 mg tablet Discontinued 750 MG PO Every 48 hours 2 4 August 10, 2023 11:00pm August 18, 2023 12:58pm Start: 10-05-2020 End: 08-28-2022 Start: 10-05-2020 End: 08-28-2022 take 1 tablet by mouth every twenty-four hours Levofloxacin 500 mg Tablet Discontinued 500 MG PO Q24H October 04, 2020 11:00pm August 28, 2022 2:54pm Start: 07-19-2017 End: 07-24-2017 levothyroxine (20 sources) l-Thyroxine Start: 03-22-2024 take 150 ug by mouth once daily levothyroxine 150 mcg, Oral, Daily, Refills(s) 0 Start Date: 03/22/24 Status: Ordered Start: 10-16-2018 End: 06-24-2023 Start: 10-16-2018 take 1 tablet by kevin th once daily in the morning Levothyroxine Sodium 150 MCG 1 tablet on an empty stomach in the morning Orally Once a day for 90 days Oct, Active Start: 07-17-2017 End: 08-28-2022 loratadine 10 mg oral tablet (19 sources) Start: 03-22-2024 Start: 08-07-2023 End: 08-18-2023 LORazepam 0.5 mg oral tablet (12 sources) Benzodiazepine Start: 03-22-2024 End: 03-28-2024 Start: 01-09-2024 End: 03-18-2024 Start: 01-09-2024 End: 03-18-2024 take 1 tablet by mouth once daily as needed for anxiety Lorazepam 0.5 mg tablet Discontinued 0.5 MG PO Daily as needed for anxiety January 09, 2024 12:00am March 18, 2024 3:13pm take 2 tablets by mo uth every eight hours as needed LORazepam (Ativan) 0.5 mg tablet Take 2 tablets (1 mg) by mouth every 8 hours if needed for anxiety. Active 24 hr metFORMIN hydrochloride 500 mg extended release oral tablet (20 sources) Biguanide Start: 12-17-2019 take 1 tablet by mouth every twenty-four hours metFORMIN HCl 500 MG 1 tablet with a meal Orally Once a day for 90 days Jan, Active Start: 07-17-2017 End: 08-28-2022 Miscellaneous Medical Supply misc (5 sources) Start: 02-06-2024 Miscellaneous Medical Supply misc Active 0 .Route February 06, 2024 12:00am As directed Start: 01-25-2024 Miscellaneous Medical Supply misc Active 0 .Route January 25, 2024 12:00am As directed Nebulizer Accessories (Adult Aerosol Mask) misc (16 sources) Start: 06-24-2023 Nebulizer Acce ssories (Adult Aerosol Mask) misc Active 0 .Route June 23, 2023 11:00pm nebulizer Start: 06-24-2023 Nebulizer Acce ssories (Adult Aerosol Mask) misc Active 0 .Route June 24, 2023 12:00am nebulizer Start: 06-24-2023 Nebulizer Acce ssories (Adult Aerosol Mask) misc Active 0 .ROUTE June 24, 2023 12:00am Nebulizer Machine & Supplies (20 sources) Start: 05-31-2017 Nebulizer Mach ine & Supplies As directed May, Active Concho 3 1000 MG (20 sources) Concho 3 1000 MG as directed Orally Once a day Active omega 9-pit-lqi-fish oil (Fish OiL) 1,000 mg (120 mg-180 mg) capsule (2 sources) take 1 capsule by mouth once daily omega 3-cxe-mwk-fish oil (Fish OiL) 1,000 mg (120 mg-180 mg) capsule Take 1 capsule (1,000 mg) by mouth once daily. Active omega-3 acid ethyl esters (retirement) 1000 mg oral capsule (1 source) Start: 03-22-2024 omega-3 polyunsaturated fatty acids ethyl esters 1000 mg Cap 1,000 mg = 1 cap(s), Oral, Refills(s) 0 Start Date: 03/22/24 Status: Ordered Concho-3 Fatty Acids (11 sources) Start: 06-24-2023 take 1000 mg by mouth once daily Concho-3 Fatty Acids Active 1000 MG PO Daily June 24, 2023 12:00am Concho-3 Fatty Acids 1,000 mg capsule (5 sources) Start: 06-24-2023 take 1 capsule by mouth once daily Concho-3 Fatty Acids 1,000 mg capsule Active 1000 MG PO Daily June 23, 2023 11:00pm OXcarbazepine 150 mg oral tablet (20 sources) Anti-epilept ic Agent Start: 03-22-2024 take 150 mg by mouth twice daily oxcarbazepine 150 mg, Oral, BID, Refills(s) 0 Start Date: 03/22/24 Status: Ordered Start: 12-21-2023 take 1 tablet by kevin th in the morning, then take 2 tablets by mouth at bedtime OXcarbazepine (Trileptal) 300 MG tablet Indications: Neuropathy TAKE 1 AND 1/2 TABLETS BY MOUTH IN THE MORNING AND IN THE EVENING AND 2 TABLETS BY MOUTH AT BEDTIME 450 tablet 3 12/21/2023 Active Start: 08-28-2022 End: 06-24-2023 take 450 mg by mouth three times daily Oxcarbazepine Discontinued 450 MG PO Three times daily August 28, 2022 12:00am June 24, 2023 2:24pm Start: 07-17-2017 End: 06-24-2023 Start: 07-17-2017 End: 12-21-2023 Start: 07-17-2017 End: 06-24-2023 Oxcarbazepine 300 mg tablet Discontinued 450 MG PO Three times daily August 27, 2022 11:00pm June 24, 2023 1:24pm take 1.5 tablets by mouth every twenty-four hours Trileptal 300 MG 1.5 tablets Orally daily Active Oxygen (20 sources) Start: 10-11-2023 Oxygen Active 0 .Route October 11, 2023 9:39am 4L Inogen and she gets her supplies with them also Start: 10-11-2023 End: 10-11-2023 Oxygen Discontinued 0 .Route October 11, 2023 9:31am October 11, 2023 9:40am 4L Start: 10-05-2023 End: 10-11-2023 Oxygen Discontinued 0 .Route October 05, 2023 3:47pm October 11, 2023 9:32am 4L Start: 06-24-2023 End: 10-05-2023 Oxygen Discontinued 0 .Route June 24, 2023 12:00am October 05, 2023 3:49pm 2L Start: 06-24-2023 Oxygen Active 0 .ROUTE June 24, 2023 12:00am 2L oxygen 2 L per n mee canula qhs and prn Active oxygen (O2) gas therapy (2 sources) oxygen (O2) gas therapy Inhale 1 each continuously. 3 - 3.5 LP)M Active Oxygen unit (20 sources) Start: 10-11-2023 Oxygen unit Ac tive 0 .Route October 11, 2023 8:39am 4L Inogen and she gets her supplies with them also Start: 10-11-2023 End: 10-11-2023 Oxygen unit Discontinued 0 . Route October 11, 2023 8:31am October 11, 2023 8:40am 4L Start: 10-05-2023 End: 10-11-2023 Oxygen unit Discontinued 0 . Route October 05, 2023 2:47pm October 11, 2023 8:32am 4L Start: 06-24-2023 End: 10-05-2023 Oxygen unit Discontinued 0 . Route June 23, 2023 11:00pm October 05, 2023 2:49pm 2L pregabalin 200 mg oral capsule (20 sources) Start: 03-22-2024 take 200 mg by mouth three times daily Lyrica 200 mg, Oral, TID, Refills(s) 0 Start Date: 03/22/24 Status: Ordered Start: 10-11-2023 End: 01-25-2024 take 1 capsule by mouth three times daily Pregabalin (Lyrica) 200 mg capsule Active 200 MG PO Three times daily 270 90 January 25, 2024 11:27am Start: 10-11-2023 take 1 capsule by mo uth every eight hours Pregabalin (Lyrica) 200 mg capsule Active 200 MG PO Every 8 hours October 11, 2023 12:00am Start: 08-11-2023 take 1 capsule by mo uth every eight hours pregabalin (Lyrica) 100 mg capsule 1 capsule (100 mg) every 8 hours. 08/11/2023 Active Start: 08-11-2023 End: 10-11-2023 take 1 capsule by mouth three times daily Pregabalin 100 mg Capsule Discontinued 100 MG PO Three times daily 0 August 10, 2023 11:00pm October 11, 2023 8:26am Start: 07-17-2017 End: 08-11-2023 take 1 capsule by mouth three times daily Pregabalin 200 mg capsule Discontinued 200 MG PO Three times daily June 23, 2023 11:00pm August 11, 2023 12:53pm saccharomyces boulardii 250 mg oral capsule (5 sources) Start: 03-03-2024 thioctic acid 200 mg oral capsule (20 sources) Start: 08-18-2023 take 600 mg by mouth three times daily Alpha Lipoic Acid Active 600 MG PO Three times daily August 18, 2023 1:49pm Start: 06-24-2023 End: 08-18-2023 Start: 06-24-2023 End: 08-18-2023 alpha lipoic acid 200 mg cap trinity Three times daily 08/18/2023 Active Start: 06-24-2023 End: 08-18-2023 take 3 capsules by mouth three times daily Alpha Lipoic Acid 200 mg capsule Discontinued 200 MG PO Three times daily June 23, 2023 11:00pm August 18, 2023 12:59pm [employer] capsules orally tid; Note: Source Status: Continue; Provider: Chela Duque ( ) Start: 06-24-2023 take 3 capsules by m out three times daily Alpha Lipoic Acid Active 600 MG PO Three times daily June 24, 2023 12:00am [employer] capsules orally tid; Note: Source Status: Continue; Provider: Chela Duque ( ) Alpha Lipoic Aci d 200 MG capsule every 12 (twelve) hours Active take 3 capsules by m outh every eight hours Alpha Lipoic Acid 200 MG 3 capsules orally tid Active 30 actuat umeclidinium 0.0625 mg/actuat / vilanterol 0.025 mg/actuat dry powder inhaler (20 sources) Anticholinergic, beta2-Adrenergic Agonist Start: 06-24-2023 take 1 puff(s) by inhalation once daily umeclidinium-vilanteroL (Anoro Ellipta) 62.5-25 mcg/actuation blister with device Inhale 1 puff once daily. 06/24/2023 Active Start: 06-24-2023 Start: 06-24-2023 Umeclidinium-V ilanterol (Anoro Ellipta) 62.5-25 mcg/actuation blister with device Active 1 INH INHALATION Daily June 23, 2023 11:00pm Start: 05-31-2023 End: 06-24-2023 Start: 05-31-2023 End: 06-24-2023 Umeclidinium-Vilanterol (Ano ro Ellipta) 62.5-25 mcg/actuation blister with device Discontinued 1 INH INHALATION As Directed May 31, 2023 8:31am June 24, 2023 1:24pm Start: 05-31-2023 End: 06-24-2023 Umeclidinium-Vilanterol (Ano ro Ellipta) 62.5-25 mcg/actuation blister with device Discontinued 1 INH INHALATION As Directed May 31, 2023 9:31am June 24, 2023 2:24pm Start: 08-28-2022 Umeclidinium-V ilanterol 62.5-25 MCG/ACT aerosol powder As Directed 08/28/2022 Active Start: 08-28-2022 End: 05-31-2023 take 1 puff(s) by in halation once daily Anoro Ellipta 62.5-25 MCG/INH 1 puff Inhalation Once a day Active Vitamin D-3 5000 UNIT (20 sources) take 1 capsule by mo uth once daily Vitamin D-3 5000 UNIT 1 soft gel capsule Orally Once a day Active (20 sources) Start: 02-06-2024 Start: 01-25-2024 Start: 01-25-2024 Start: 01-25-2024 Start: 10-20-2023 Start: 10-11-2023 Start: 10-11-2023 End: 10-11-2023 Start: 10-11-2023 End: 01-25-2024 Start: 10-05-2023 End: 10-11-2023 Start: 08-18-2023 End: 11-18-2023 Start: 08-11-2023 End: 10-11-2023 Start: 08-11-2023 End: 11-18-2023 Start: 08-07-2023 End: 10-05-2023 Start: 07-30-2023 End: 08-07-2023 Start: 06-24-2023 Start: 06-24-2023 End: 08-11-2023 Start: 06-24-2023 End: 10-05-2023 Start: 06-24-2023 End: 08-18-2023 Start: 06-24-2023 End: 01-25-2024 Start: 06-20-2023 End: 06-24-2023 Start: 06-20-2023 End: 06-24-2023 Start: 09-02-2022 End: 06-20-2023 Start: 08-30-2022 End: 06-24-2023 Start: 08-28-2022 End: 06-20-2023 Start: 07-17-2017 End: 06-24-2023 Start: 07-17-2017 End: 08-28-2022 Start: 07-17-2017 End: 08-28-2022 Start: 07-17-2017 End: 10-05-2020 Completed/Discontinued Medications Medication Drug Class(es) Dates Sig (Normalized) Sig (Original) acetaminophen 325 mg oral capsule (17 sources) Start: 08-18-2023 End: 11-18-2023 Start: 08-18-2023 End: 11-18-2023 take 2 capsules by mouth every six hours as needed Acetaminophen 325 mg capsule Discontinued 650 MG PO Every 6 hours as needed August 17, 2023 11:00pm November 18, 2023 10:31am Start: 08-18-2023 End: 11-18-2023 take 650 mg by mouth every six hours Acetaminophen Discontinued 650 MG PO Every 6 hours August 18, 2023 12:00am November 18, 2023 11:31am acetaminophen 325 mg / HYDROcodone bitartrate 7.5 mg oral tablet (20 sources) Opioid Agonist Start: 07-17-2017 End: 10-05-2020 Albuterol Sulfate 90 mcg/actuation Hfa Aerosol Inhaler (5 sources) Start: 07-17-2017 End: 08-28-2022 take 1 puff(s) by inhalation every four to six hours as needed Albuterol Sulfate 90 mcg/actuation Hfa Aerosol Inhaler Discontinued 1 - 2 PUFF INHALATION EVERY 4-6 HOURS as needed for Shortness Of Breath July 16, 2017 11:00pm August 28, 2022 2:50pm amantadine hydrochloride 100 mg oral tablet (20 sources) Influenza A M2 Protein Inhibitor Start: 07-08-2023 End: 10-18-2023 amLODIPine 5 mg oral tablet (20 sources) Dihydropyridine Calcium Channel Sohail Start: 08-11-2023 End: 03-28-2024 Start: 07-17-2017 End: 10-05-2020 atorvastatin 40 mg oral tablet (20 sources) HMG-CoA Reductase Inhibitor Start: 08-30-2022 End: 01-25-2024 azithromycin 250 mg oral tablet (4 sources) Macrolide Antimicrobial Start: 03-03-2024 End: 03-15-2024 B-12 - up to 1000 mcg (20 sources) Start: 08-14-2013 B-12 - up to 1000 mcg Aug, 1 mL calcium carbonate 1500 mg oral tablet (20 sources) Start: 07-17-2017 End: 06-24-2023 calcium carbonate 1500 mg / cholecalciferol 200 unt oral tablet (20 sources) Vitamin D Start: 06-24-2023 End: 08-18-2023 Start: 06-24-2023 End: 08-18-2023 take 1 tablet by mouth twice daily Calcium Carbonate-Vitamin D3 600 mg-5 mcg (200 unit) tablet Discontinued 1 TAB PO Twice daily June 23, 2023 11:00pm August 18, 2023 12:57pm On Hold: Continue to hold until follow with nephrology take 1 tablet by kevin th twice daily Calcium + D 600-200 MG-UNIT 1 tablet Orally BID Active take 2 tablets by mo uth once daily Calcium + D 600-200 MG-UNIT 2 tablets Orally Once a day Active take 2 tablets by mo uth every twenty-four hours Calcium + D 600-200 MG-UNIT 2 tablets Orally Once a day Active cephalexin 500 mg oral capsu le (20 sources) Cephalosporin Antibacterial Start: 03-03-2024 End: 03-15-2024 Start: 08-10-2018 End: 10-05-2020 Start: 08-10-2018 End: 10-05-2020 take 1 capsule by mouth twice daily Cephalexin (Keflex) 500 mg capsule Discontinued 500 MG PO Twice daily 10 August 09, 2018 11:00pm October 05, 2020 3:15pm cetirizine hydrochloride 10 mg oral tablet (20 sources) Histamine-1 Receptor Antagonist Start: 06-24-2023 End: 03-24-2024 Start: 07-17-2017 End: 06-24-2023 take 1 tablet by kevin th every twenty-four hours ZyrTEC Allergy 10 MG 1 tablet Orally Once a day Active cholecalciferol 0.025 mg ora l capsule (20 sources) Vitamin D Start: 06-24-2023 End: 08-18-2023 Start: 07-17-2017 End: 06-24-2023 ciprofloxacin 500 mg oral tablet (13 sources) Quinolone Antimicrobial Start: 10-05-2023 End: 10-14-2023 Estroven (4 sources) Estroven Not-Taking Fish Gop-Jbyxa-3-Vit C-Vit E (15 sources) Start: 07-17-2017 End: 06-24-2023 take 1 tablet by mouth once daily Fish Lek-Fbpju-9-Vit C-Vit E Discontinued 1 TAB PO Daily July 17, 2017 12:00am June 24, 2023 2:24pm Start: 07-17-2017 take 1 tablet by kevin th once daily Fish Uuj-Mqqmy-8-Vit C-Vit E Active 1 TAB PO Daily July 17, 2017 12:00am Fish Lfh-Sxfdz-2-Vit C-Vit E 2,000-650-12 mg/2.5 gram Emulsion In Packet (5 sources) Start: 07-17-2017 End: 06-24-2023 take 1 tablet by mouth once daily Fish Klh-Scdkx-1-Vit C-Vit E 2,000-650-12 mg/2.5 gram Emulsion In Packet Discontinued 1 TAB PO Daily July 16, 2017 11:00pm June 24, 2023 1:24pm homatropine methylbromide 0.3 mg/ml / HYDROcodone bitartrate 1 mg/ml oral solution (20 sources) Opioid Agonist, Cholinergic Muscarinic Agonist Start: 01-25-2024 End: 03-15-2024 Start: 01-25-2024 End: 03-15-2024 Hydrocodone-Homatropine 5-1. 5 mg/5 mL syrup Discontinued 5 ML PO Every 6 hours as needed for cough 60 January 25, 2024 March 15, 2024 9:55pm Start: 10-18-2023 End: 11-21-2023 Start: 10-18-2023 End: 11-21-2023 Hydrocodone-Homatropine 5-1. 5 mg/5 mL syrup Discontinued 5 ML PO Every 6 hours as needed for cough 60 3 October 18, 2023 November 21, 2023 11:00am Start: 06-24-2023 End: 10-14-2023 Start: 06-24-2023 End: 10-14-2023 Hydrocodone-Homatropine 5-1. 5 mg/5 mL syrup Discontinued 5 ML PO Every 6 hours as needed for cough 60 July 30, 2023 October 14, 2023 9:27am Start: 03-03-2023 HYDROcodone Bi t-Homatrop MBr 5-1.5 MG/5ML 5 mL as needed Orally every 6 hrs Feb, Active Start: 06-26-2021 HYDROcodone-Ho matropine 5-1.5 MG/5ML 5 ml Orally every 6 hrs prn Jun, Active Start: 03-09-2021 HYDROcodone-Ho matropine 5-1.5 MG/5ML 5 ml Orally every 6 hrs prn Mar, Active Start: 02-19-2021 take 5 mL by mouth e very four to six hours as needed Hycodan Syrup 5mg/1.5 mg 5ml po q 4-6 hr s prn Feb, Active Start: 10-29-2019 take 5 mL by mouth e very six hours as needed Hycodan Syrup 5mg/1.5 mg 5ml po q 6 hrs prn prn Oct, Active Insulin Lispro (Humalog Kwikpen Insulin) 100 unit/mL insulin pen (14 sources) Start: 08-07-2023 End: 10-05-2023 inject 1 dose by subcutaneous injection at bedtime Insulin Lispro (Humalog Kwikpen Insulin) 100 unit/mL insulin pen Discontinued 0 sliding scale dose SUBCUT Before meals and at bedtime August 06, 2023 11:00pm October 05, 2023 2:51pm Please contact the information source for Protocol details. Start: 08-07-2023 End: 10-05-2023 inject 1 dose by subcutaneous injection at bedtime Insulin Lispro (Humalog Kwikpen Insulin) 100 unit/mL insulin pen Discontinued 0 sliding scale dose SUBCUT Before meals and at bedtime August 07, 2023 12:00am October 05, 2023 3:51pm Start: 08-07-2023 inject 1 dose by sub cutaneous injection at bedtime Insulin Lispro (Humalog Kwikpen Insulin) 100 unit/mL insulin pen Active 0 sliding scale dose SUBCUT Before meals and at bedtime August 07, 2023 12:00am lisinopril 5 mg oral tablet (20 sources) Angiotensin Converting Enzyme Inhibitor Start: 09-14-2018 End: 08-18-2023 Start: 07-17-2017 End: 08-28-2022 Start: 07-17-2017 End: 08-28-2022 take 5 mg by mouth at bedtime Lisinopril (Prinivil) 20 mg tablet Discontinued 5 MG PO Bedtime July 16, 2017 11:00pm August 28, 2022 2:54pm lovastatin 20 mg oral tablet (20 sources) HMG-CoA Reductase Inhibitor Start: 07-17-2017 End: 08-30-2022 morphine sulfate 30 mg exten ded release oral tablet (20 sources) Opioid Agonist Start: 07-17-2017 End: 10-05-2020 potassium chloride 20 meq ex tended release oral tablet (20 sources) Start: 05-11-2023 End: 03-18-2024 Start: 05-11-2023 take 1 tablet by kevin th once daily potassium chloride CR (K-Tab) 20 MEQ ER tablet Take 20 mEq by mouth Daily 05/11/2023 Active Start: 07-17-2017 End: 06-24-2023 Start: 06-27-2017 take 1 tablet by kevin th every twelve hours Potassium Chloride ER 20 MEQ 1 tablet with food Orally Twice a day Jun, Active predniSONE 10 mg oral tablet (20 sources) Start: 03-03-2024 End: 03-18-2024 Start: 11-21-2023 End: 01-25-2024 Start: 08-11-2023 End: 10-05-2023 Start: 08-11-2023 End: 10-05-2023 Prednisone 10 mg tablet Disc ontinued 10 MG PO As Directed August 10, 2023 11:00pm October 05, 2023 2:47pm see taper instructions Take 20 mg ( 2 tabs) for 3 days then Take 10 mg ( 1 tab) for 3 days to finish Start: 07-30-2023 End: 08-11-2023 Start: 07-30-2023 End: 08-07-2023 take 2 tablets by mouth once daily Prednisone 20 mg Tablet Discontinued 40 MG PO Daily July 29, 2023 11:00pm August 06, 2023 11:17pm Please contact the information source for Taper Schedule details. Start: 07-30-2023 End: 08-07-2023 take 40 mg by mouth once daily Prednisone Discontinued 40 MG PO Daily July 30, 2023 12:00am August 07, 2023 12:17am Start: 07-19-2017 End: 08-08-2018 Start: 07-19-2017 End: 08-08-2018 Prednisone 10 mg tablet Disc ontinued 10 MG PO Daily July 18, 2017 11:00pm August 08, 2018 3:34pm 4tabs x3 days, then 3tabs x3 days, then 2 tabs x3 days, then 1 tab x 3 days, then dc rOPINIRole 1 mg oral tablet (20 sources) Nonergot Dopamine Agonist Start: 07-17-2017 End: 01-25-2024 Rx Discharge Order Notice (15 sources) Start: 07-30-2023 End: 08-07-2023 Rx Discharge Order Notice Discontinued 1 EACH MISCELLANE Once July 29, 2023 11:00pm August 07, 2023 7:20am Start: 07-30-2023 End: 08-07-2023 Rx Discharge Order Notice Di scontinued 1 EACH MISCELLANE Once July 30, 2023 12:00am August 07, 2023 8:20am Start: 07-30-2023 Rx Discharge O rder Notice Active 1 EACH MISCELLANE Once July 30, 2023 12:00am Saliva Substitute Combo No.9 (Biotene Dry Mouth Oral Rinse) mouthwash (20 sources) Start: 08-18-2023 End: 11-18-2023 Saliva Substitute Combo No.9 (Biotene Dry Mouth Oral Rinse) mouthwash Discontinued 15 ML MUCOUS MEM 3 to 4 times per day as needed August 17, 2023 11:00pm November 18, 2023 10:31am swish for 15-30 secs , then spit out; do not swallow Start: 08-18-2023 End: 11-18-2023 Saliva Substitute Combo No.9 (Biotene Dry Mouth Oral Rinse) mouthwash Discontinued 15 ML MUCOUS MEM 3 to 4 times per day August 18, 2023 12:00am November 18, 2023 11:31am swish for 15-30 secs , then spit out; do not swallow Start: 08-18-2023 Saliva Substit [place] Combo No.9 (Biotene Dry Mouth Oral Rinse) mouthwash Active 15 ML MUCOUS MEM 3 to 4 times per day August 18, 2023 12:00am swish for 15-30 secs , then spit out; do not swallow Start: 06-24-2023 End: 08-18-2023 Saliva Substitute Combo No.9 (Biotene Dry Mouth Oral Rinse) mouthwash Discontinued 15 ML MUCOUS MEM 2-4 TIMES PER DAY as needed for dry mouth June 23, 2023 11:00pm August 18, 2023 12:58pm swish for 15-30 secs , then spit out; do not swallow Start: 06-24-2023 End: 08-18-2023 Saliva Substitute Combo No.9 (Biotene Dry Mouth Oral Rinse) mouthwash Discontinued 15 ML MUCOUS MEM 2-4 TIMES PER DAY June 24, 2023 12:00am August 18, 2023 1:58pm swish for 15-30 secs , then spit out; do not swallow Start: 04-19-2024 Saliva Substit [place] Combo No.9 (Biotene Dry Mouth Oral Rinse) mouthwash Active 15 ML MUCOUS MEM 2-4 TIMES PER DAY June 24, 2023 12:00am swish for 15-30 secs , then spit out; do not swallow Soy Isofla-Blk Coh[place]-Mag Bark (Estroven) 155 mg Capsule (20 sources) Start: 07-17-2017 End: 10-05-2020 take 1 capsule by mouth once daily Soy Isofla-Blk [place]-Mag Bark (Estroven) 155 mg Capsule Discontinued 155 MG PO Daily July 16, 2017 11:00pm October 05, 2020 3:16pm Start: 07-17-2017 End: 10-05-2020 take 1 capsule by mouth once daily Soy Isofla-Blk [place]-Mag Bark (Estroven) 155 mg Capsule Discontinued 155 MG PO Daily July 17, 2017 12:00am October 05, 2020 4:16pm tiZANidine 4 mg oral tablet (17 sources) Central alpha-2 Adrenergic Agonist Start: 08-18-2023 End: 11-18-2023 Varenicline (Chantix Starting ) 0.5 mg (11)- 1 mg (42) tablets,dose pack (17 sources) Start: 08-30-2022 End: 06-24-2023 take 1 tablet by mouth once Varenicline (Chantix Starting ) 0.5 mg (11)- 1 mg (42) tablets,dose pack Discontinued 0 PO .COMPLEX 53 August 29, 2022 11:00pm June 24, 2023 1:24pm orally per package directions Start: 08-30-2022 End: 06-24-2023 take 1 tablet by mouth once Varenicline (Chantix Start ) 0.5 mg (11)- 1 mg (42) tablets,dose pack Discontinued 0 PO .COMPLEX August 30, 2022 12:00am June 24, 2023 2:24pm orally per package directions Start: 08-30-2022 take 1 tablet by mouth once Va renicline (Chantix Starting ) 0.5 mg (11)- 1 mg (42) tablets,dose pack Active 0 PO .[facility] 53 August 30, 2022 12:00am orally per package directions Varenicline Tartrate (Chantix Starting Month Box) 0.5 mg (11)- 1 mg (42) tablets,dose pack (2 sources) Start: 08-30-2022 End: 06-24-2023 take 1 tablet by mouth once Varenicline Tartrate (Chantix Starting Box) 0.5 mg (11)- 1 mg (42) tablets,dose pack Discontinued 0 PO .COMPLEX 53 August 29, 2022 11:00pm June 24, 2023 1:24pm orally per package directions Problems Active Problems Problem Classification Problem Date Documented Da te Episodic/Chronic Abdominal pain (8 sources) Right flank pain; Translations: [Unspecified abdominal pain] 03-15-2024 Episodic Acute myocardial infarction (20 sources) Acute non-ST segment elevation myocardial infarction; Translations: [Non-ST elevation (NSTEMI) myocardial infarction] Onset: 10-17-2023 07-26-2023 Chronic Anxiety disorders (20 sources) Anxiety; Translations: [Anxiety disorder, unspecified] Onset: 06-29-2023 09-02-2022 Chronic Cardiac dysrhythmias (5 sources) Tachycardia, unspecified; Translations: [Tachycardia, unspecified] Onset: 02-29-2024 03-04-2024 Episodic Cataract (20 sources) Unspecified cataract; Translations: [Cataract] Onset: 01-15-2021 Resolved: 01-15-2021 Chronic Chronic obstructive pulmonary disease and bronchiectasis (20 sources) Chronic obstructive pulmonary disease, unspecified; Translations: [Chronic bronchitis] Onset: 12-30-2020 Resolved: 09-17-2021 Chronic Congestive heart failure; nonhypertensive (7 sources) Heart failure, unspecified; Translations: [Congestive heart failure, unspecified] 03-04-2024 Chronic Coronary atherosclerosis and other heart disease (20 sources) Coronary arteriosclerosis; Translations: [Atherosclerotic heart disease of [place] coronary artery without angina pectoris] Onset: 06-29-2023 Resolved: 01-06-2024 08-29-2022 Chronic Diabetes mellitus without complication (20 sources) Type 2 diabetes mellitus without complications; Translations: [Diabetes mellitus] Onset: 12-30-2020 Resolved: 09-17-2021 Chronic Diseases of white blood cells (20 sources) Leukocytosis; Translations: [Elevated white blood cell count, unspecified] Onset: 06-29-2023 07-17-2017 Chronic Disorders of lipid metabolism (20 sources) Hyperlipidemia; Translations: [Hyperlipidemia, unspecified] Onset: 12-30-2020 Resolved: 09-17-2021 Chronic E Codes: Fall (1 source) Unspecified fall, initial encounter Episodic Epilepsy; convulsions (20 sources) Seizure disorder; Translations: [Epilepsy, unspecified, not intractable, without status epilepticus] Onset: 09-17-2021 Resolved: 09-17-2021 Chronic Essential hypertension (20 sources) Essential (primary) hypertension; Translations: [Hypertensive disorder] Onset: 03-07-2008 Resolved: 09-17-2021 Chronic Immunizations and screening for infectious disease (20 sources) Needs influenza immunization; Translations: [Encounter for immunization] Onset: 12-30-2020 Resolved: 12-30-2020 Episodic Malaise and fatigue (14 sources) Weakness; Translations: [Asthenia] Onset: 12-30-2020 Resolved: 09-17-2021 Episodic Menopausal disorders (20 sources) Menopausal and female climacteric states; Translations: [Menopausal state] Onset: 10-17-2023 06-24-2023 Chronic Nutritional deficiencies (20 sources) Vitamin D deficiency; Translations: [Vitamin D deficiency, unspecified] Onset: 10-17-2023 Chronic Other aftercare (1 source) retirement (current) use of aspirin; Translations: [ACTIVITIES CONCIERGE CURRENT USE OF ASPIRIN] Onset: 03-24-2021 Episodic Other aftercare (1 source) Other shelter (current) drug therapy; Translations: [OTH ACTIVITIES CONCIERGE CURRENT DRUG THERAPY] Onset: 03-24-2021 Episodic Other aftercare (1 source) 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; Translations: [CUSTODIAL USE ORAL HYPOGLYCEMIC DX] Onset: 03-24-2021 Episodic Other aftercare (2 sources) 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; Translations: [retirement (current) use of insulin (Multi)] Onset: 01-06-2024 Episodic Other connective tissue disease (1 source) Rupture of Achilles tendon 03-22-2024 Episodic Other diseases of bladder and urethra (3 sources) Disorder of bladder; Translations: [Bladder-neck obstruction] 03-16-2024 Chronic Other diseases of bladder and urethra (4 sources) Bladder-neck obstruction; Translations: [Bladder neck obstruction] Onset: 03-15-2024 03-18-2024 Chronic Other diseases of kidney and ureters (20 sources) Renal insufficiency; Translations: [Disorder of kidney and ureter, unspecified] Episodic Other diseases of kidney and ureters (7 sources) Disorder of kidney and ureter, unspecified; Translations: [Unspecified disorder of kidney and ureter] Onset: 09-17-2021 Resolved: 09-17-2021 Episodic Other diseases of kidney and ureters (19 sources) Renal impairment; Translations: [Disorder of kidney and ureter, unspecified] Onset: 10-17-2023 06-24-2023 Episodic Other gastrointestinal disorders (20 sources) Constipation; Translations: [Constipation, unspecified] Episodic Other gastrointestinal disorders (1 source) Diarrhea, unspecified Episodic Other hematologic conditions (3 sources) Raised cardiac enzyme or marker; Translations: [Other specified abnormalities of plasma proteins] 08-28-2022 Episodic Other hematologic conditions (4 sources) Other specified abnormalities of plasma proteins; Translations: [Other abnormal blood chemistry] Onset: 02-29-2024 08-28-2022 Episodic Other hereditary and degenerative nervous system conditions (1 source) Restless legs; Translations: [Restless legs syndrome] Onset: 04-11-2023 04-11-2023 Chronic Other injuries and conditions due to external causes (20 sources) Injury of head; Translations: [Unspecified injury of head, initial encounter] Onset: 06-29-2023 10-05-2020 Episodic Other lower respiratory disease (20 sources) Hypoxia; Translations: [Hypoxemia] Onset: 10-17-2023 06-24-2023 Episodic Other lower respiratory disease (1 source) Hypoxemia Episodic Other lower respiratory disease (2 sources) Dyspnea; Translations: [Shortness of breath] 11-18-2023 Episodic Other nervous system disorders (20 sources) Neuropathy; Translations: [Polyneuropathy, unspecified] 06-20-2023 Chronic Other nervous system disorders (20 sources) Chronic pain; Translations: [Other chronic pain] Onset: 06-29-2023 09-02-2022 Chronic Other nervous system disorders (20 sources) Polyneuropathy, unspecified; Translations: [Mononeuritis of unspecified site] Onset: 12-30-2020 Resolved: 09-17-2021 Chronic Other nervous system disorders (1 source) Peripheral nerve disease ; Translations: [Polyneuropathy, unspecified] Onset: 04-11-2023 04-11-2023 Chronic Other nervous system disorders (4 sources) Unable to walk; Translations: [Difficulty in walking, not elsewhere classified] 03-15-2024 Chronic Other nervous system disorders (5 sources) Difficulty in walking, not elsewhere classified; Translations: [Difficulty in walking] Onset: 03-15-2024 03-15-2024 Chronic Other nervous system disorders (1 source) Other chronic pain; Translations: [Other chronic pain] Onset: 08-06-2023 Chronic Other nervous system disorders (2 sources) Unspecified abnormalities of gait and mobility Onset: 06-02-2021 Resolved: 06-02-2021 Episodic Other nervous system disorders (2 sources) Other abnormalities of gait and mobility; Translations: [Balance disorder] Episodic Other nervous system disorders (19 sources) Impairment of balance; Translations: [Other abnormalities of gait and mobility] Onset: 10-17-2023 06-24-2023 Episodic Other non-traumatic joint disorders (1 source) Charcot's joint of foot 03-22-2024 Chronic Other nutritional; endocrine; and metabolic disorders (18 sources) Hypercalcemia; Translations: [Hypercalcemia] Onset: 10-17-2023 08-07-2023 Chronic Other nutritional; endocrine; and metabolic disorders (12 sources) Hypercalcemia; Translations: [Hypercalcemia] Onset: 08-06-2023 08-11-2023 Chronic Other nutritional; endocrine; and metabolic disorders (5 sources) Overweight in adulthood with body mass index of 25 or more but less than 30; Translations: [Body mass index (BMI) 27.0-27.9, adult] Onset: 08-22-2023 08-22-2023 Episodic Other nutritional; endocrine; and metabolic disorders (2 sources) Body mass index (BMI) 29.0-29.9, adult; Translations: [Body mass index (BMI) 29.0-29.9, adult] Onset: 01-06-2024 Episodic Other screening for suspected conditions (not mental disorders or infectious disease) (20 sources) Abnormal arterial blood gas; Translations: [Abnormal blood-gas level] Onset: 09-17-2021 Resolved: 09-17-2021 Episodic Other upper respiratory disease (4 sources) Epistaxis; Translations: [EPISTAXIS] Onset: 03-22-2021 Episodic Residual codes; unclassified (20 sources) Sleep apnea; Translations: [Sleep apnea, unspecified] Onset: 10-17-2023 06-24-2023 Chronic Residual codes; unclassified (15 sources) Sleep apnea, unspecified; Translations: [Unspecified sleep apnea] Onset: 07-26-2023 07-30-2023 Chronic Residual codes; unclassified (19 sources) Altered mental status; Translations: [Altered mental status, unspecified] Onset: 06-29-2023 08-08-2018 Episodic Residual codes; unclassified (19 sources) Colonoscopy refused; Translations: [Procedure and treatment not carried out because of patient's decision for unspecified reasons] Onset: 10-17-2023 06-24-2023 Episodic Comment on above: 2019 Residual codes; unclassified (17 sources) History of parathyroidectomy; Translations: [Other specified postprocedural states] Onset: 10-17-2023 08-07-2023 Episodic Residual codes; unclassified (5 sources) Altered mental status, unspecified; Translations: [Altered mental status] Onset: 02-29-2024 03-04-2024 Episodic Respiratory failure; insufficiency; arrest (adult) (20 sources) Dependence on supplemental oxygen; Translations: [Dependence on supplemental oxygen] Onset: 03-24-2021 Chronic Substance-related disorders (20 sources) Tobacco user; Translations: [Nicotine dependence, cigarettes, uncomplicated] Onset: 09-17-2021 Resolved: 09-17-2021 Chronic Superficial injury; contusion (1 source) Contusion of left lower leg, initial encounter Episodic Thyroid disorders (20 sources) Hypothyroidism, unspecified; Translations: [Hypothyroidism] Onset: 02-19-2021 Resolved: 09-17-2021 Chronic Unclassified (1 source) Cough, unspecified; Translations: [Cough, unspecified] Onset: 07-26-2023 Urinary tract infections (20 sources) Urinary tract infectious disease; Translations: [Urinary tract infection, site not specified] Onset: 07-26-2023 07-26-2023 Episodic Viral infection (18 sources) COVID-19; Translations: [Pneumonia due to COVID-19 virus] Onset: 10-17-2023 10-14-2023 Episodic Past or Other Problems Problem Classification Problem Date Documented Da te Episodic/Chronic Acute and unspecified renal failure (20 sources) Injury of kidney; Translations: [Acute kidney failure, unspecified] Onset: 06-29-2023 08-08-2018 Episodic Chronic obstructive pulmonary disease and bronchiectasis (2 sources) Bronchitis, not specified as acute or chronic Onset: 02-19-2021 Resolved: 06-26-2021 Episodic Genitourinary symptoms and ill-defined conditions (20 sources) Retention of urine; Translations: [Retention of urine, unspecified] Onset: 07-26-2023 07-26-2023 Episodic Nonspecific chest pain (20 sources) Chest pain; Translations: [Chest pain, unspecified] Onset: 06-29-2023 08-28-2022 Episodic Other gastrointestinal disorders (1 source) Constipation, unspecified; Translations: [Constipation, unspecified constipation type K59.00] Onset: 12-30-2020 Resolved: 12-30-2020 Episodic Other lower respiratory disease (6 sources) Shortness of breath; Translations: [Shortness of breath] Onset: 11-18-2023 11-21-2023 Episodic Other nervous system disorders (7 sources) Nervous system symptoms; Translations: [Other abnormalities of gait and mobility] Episodic Other nervous system disorders (20 sources) Abnormal gait; Translations: [Unspecified abnormalities of gait and mobility] Onset: 04-11-2023 04-11-2023 Episodic Other nervous system disorders (1 source) Skin sensation disturbance; Translations: [Unspecified disturbances of skin sensation] Onset: 04-11-2023 04-11-2023 Episodic Other nutritional; endocrine; and metabolic disorders (2 sources) Body mass index (BMI) 27.0-27.9, adult; Translations: [Body mass index (BMI) 27.0-27.9, adult] Onset: 08-22-2023 Episodic Pneumonia (except that caused by tuberculosis or sexually transmitted disease) (20 sources) Pneumonia; Translations: [Pneumonia, unspecified organism] Onset: 10-17-2023 08-07-2023 Episodic Residual codes; unclassified (3 sources) Other specified postprocedural states; Translations: [Other postprocedural status] Onset: 08-06-2023 08-11-2023 Episodic Residual codes; unclassified (1 source) Acquired absence of other organs; Translations: [Acquired absence of other organs] Onset: 08-06-2023 Episodic Respiratory failure; insufficiency; arrest (adult) (1 source) Respiratory failure, unspecified, unspecified whether with hypoxia or hypercapnia; Translations: [Respiratory failure, unspecified, unspecified whether with hypoxia or hypercapnia] Onset: 09-26-2023 Episodic Screening and history of mental health and substance abuse codes (8 sources) Personal history of nicotine dependence; Translations: [Ex-smoker] Onset: 03-24-2021 08-22-2023 Episodic Septicemia (except in labor) (20 sources) Sepsis; Translations: [Sepsis, unspecified organism] Onset: 07-26-2023 07-26-2023 Episodic Unclassified (2 sources) Onset: 08-22-2023 Resolved: 01-06-2024 08-22-2023 Results Test Name Value Interpretation Reference Range Facility Aerobic Cultureon 03-26-2024 Aerobic Culture Normal [facility] Comment on above: Performed By: #### A ALVINA, ####[address] [place] [address] [facility] Anti-Xa UF Heparinon 025 Anti-Xa UF Heparin 0.16 [IU]/mL Low 0.30-0.70 [facility] Comment on above: Result Comment: Use the aPTT protocol when triglycerides are > 800 mg/dL, total bilirubin is > 20 mg/dL and/or patient has received a DOAC, Fondaparinux or LMWH within 72 hours AND baseline anti-Xa level is > 0.7 units/mLPERFORMED BY:[address] [place], [place] [id number] MEDICAL DIRECTORDOROTHY MENA M.D. Performed By: #### [facility] ####[address] [address] [facility] Bacteria identified Aer cx N om (Unsp spec)Ordered By: Mejia Aaron on 03-26-2024 Aerobic culture Abnormal [facility] Basic Metabolic Panelon 03-08 Anion gap [Moles/Vol] 8.5 mmol/L Normal 6.0-15.0 [facility] Comment on above: Performed By: #### C BC, BMP ####[address] [address] [facility] Calcium [Mass/Vol] 8.5 mg/dL Low 8.6-10.3 [facility] Comment on above: Performed By: #### C BC, BMP ####[address] [address] [facility] Chloride [Moles/Vol] 99 mmol/L Normal 98-107 [facility] Comment on above: Performed By: #### C BC, BMP ####[address] [address] [facility] CO2 [Moles/Vol] 38.6 mmol/L High 21.0-31.0 [facility] Comment on above: Performed By: #### C BC, BMP ####[address] [address] [facility] Creatinine [Mass/Vol] 0.96 mg/dL Normal 0.60-1.20 [facility] Comment on above: Performed By: #### C BC, BMP ####[address] [address] [facility] Creatinine Clr Calc Pharmacy 56.09 Normal [facility] Comment on above: Result Comment: PERF ORMED BY:[address] [place], [place] [phone] MEDICAL DIRECTORDOROTHY MENA M.D. Performed By: #### C BC, BMP ####[address] [address] [facility] GFR/1.73 sq M.predicted MDRD (S/P/Bld) [Vol rate/Area] mL/min/{1.73_m2} Normal [facility] Comment on above: Performed By: #### C BC, BMP ####[address] [address] [facility] Glucose [Mass/Vol] 112 mg/dL High 70-100 [facility] Comment on above: Result Comment: [facility] Glucose Reference Range is dependent on time and content of last meal. Glucose of more than 200 mg/dL in a nonstressed, ambulatory subject supports the diagnosis of Diabetes Mellitus. ADA recommended reference range Performed By: #### C LEEANN, BMP ####[facility] [address] [place] [address] [facility] Potassium [Moles/Vol] 3.1 mmol/L Low 3.5-5.1 [facility] Comment on above: Performed By: #### C LEEANN, BMP ####[facility] [place] [address] [facility] Sodium [Moles/Vol] 143 mmol/L Normal 136-145 [facility] Comment on above: Performed By: #### C LEEANN, BMP ####[facility] [place] [address] [facility] Urea nitrogen [Mass/Vol] 14 mg/dL Normal 7-25 [facility] Comment on above: Performed By: #### C LEEANN, BMP ####[facility] [id number] [facility] Basophils Auto (Bld) [#/Vol] Ordered By: Mejia Aaron on 03-26-2024 Basophils (Bld) [#/Vol] Automated basophil count 0.0-0.2 [facility] Basophils/100 WBC Auto (Bld) Ordered By: Mejia Aaron on 03-26-2024 Basophils/100 WBC (Bld) Automated basophil % . [facility] Calcium [Mass/volume] in Ser um or PlasmaOrdered By: Mejia Aaron on 03-26-2024 Calcium [Mass/Vol] Calcium [Mass/volume ] in Serum or Plasma Low 8.6-10.3 [facility] Carbon dioxide, total [Moles /volume] in Serum or PlasmaOrdered By: Mejia Aaron on 03-26-2024 CO2 [Moles/Vol] Carbon dioxide, tota l [Moles/volume] in Serum or Plasma High 21.0-31.0 [facility] Chloride [Moles/volume] in S cait or PlasmaOrdered By: Mejia Aaron on 03-26-2024 Chloride [Moles/Vol] Chloride [Moles/vol ume] in Serum or Plasma 98-107 [facility] Complete Blood Count Auto Di ffon 03-26-2024 Basophils (Bld) [#/Vol] 0.1 10*3/uL Normal 0.0-0.2 [facility] Comment on above: Result Comment: PERF ORMED BY:[address] [place], [place] [phone] MEDICAL DIRECTORDOROTHY MENA M.D. Performed By: #### C LEEANN, BMP ####[address] Basophils/100 WBC (Bld) 0.9 % Normal . [facility] Comment on above: Performed By: #### C LEEANN, BMP ####[address] Eosinophils (Bld) [#/Vol] 0.3 10*3/uL Normal 0.0-0.45 [facility] Comment on above: Performed By: #### C LEEANN, BMP ####[address] Eosinophils/100 WBC (Bld) 4.1 % Normal . [facility] Comment on above: Performed By: #### C LEEANN, BMP ####[address] Erythrocyte distribution width (RBC) [Ratio] 14.8 % Normal 11.9-15.3 [facility] Comment on above: Performed By: #### C BC, BMP ####[id number] [facility] Hematocrit (Bld) [Volume fraction] 31.5 % Low 34.0-46.4 [facility] Comment on above: Performed By: #### C BC, BMP ####[address] Hemoglobin (Bld) [Mass/Vol] 10.3 g/dL Low 11.8-15.4 [facility] Comment on above: Performed By: #### C BC, BMP ####[address] Lymphocytes (Bld) [#/Vol] 1.7 10*3/uL Normal 1.00-4.8 [facility] Comment on above: Performed By: #### C BC, BMP ####[address] Lymphocytes/100 WBC (Bld) 27.6 % Normal . [facility] Comment on above: Performed By: #### C BC, BMP ####[address] MCH (RBC) [Entitic mass] 28.2 pg Normal 24.7-34.3 [facility] Comment on above: Performed By: #### C BC, BMP ####[address] MCV (RBC) [Entitic vol] 86.2 fL Normal 80-100 [facility] Comment on above: Performed By: #### C BC, BMP ####[address] Mean Corpuscular HGB Conc 32.6 g/dL Normal 32.0-35.0 [facility] Comment on above: Performed By: #### C BC, BMP ####[address] Monocytes (Bld) [#/Vol] 0.5 10*3/uL Normal 0.0-0.8 [facility] Comment on above: Performed By: #### C BC, BMP ####[address] Monocytes/100 WBC (Bld) 7.9 % Normal . [facility] Comment on above: Performed By: #### C BC, BMP ####[address] Neutrophils (Bld) [#/Vol] 3.8 10*3/uL Normal 1.8-7.7 [facility] Comment on above: Performed By: #### C BC, BMP ####[address] [address] [facility] Neutrophils/100 WBC (Bld) 59.5 % Normal . [facility] Comment on above: Performed By: #### C BC, BMP ####[address] [place] [address] [facility] NRBC% 0.1 /100{WBC} Normal 0-0.5 [facility] Comment on above: Performed By: #### C BC, BMP ####[address] [address] [facility] Platelet mean volume (Bld) [Entitic vol] 7.4 fL Normal 6.3-10.7 [facility] Comment on above: Performed By: #### C BC, BMP ####[address] [address] [facility] Platelets (Bld) [#/Vol] 205 10*3/uL Normal 150-450 [facility] Comment on above: Performed By: #### C BC, BMP ####[address] [address] [facility] RBC (Bld) [#/Vol] 3.65 10*6/uL Normal 3.60-5.00 [facility] Comment on above: Performed By: #### C BC, BMP ####[address] [address] [facility] WBC (Bld) [#/Vol] 6.3 10*3/uL Normal 3.8-11.6 [facility] Comment on above: Performed By: #### C BC, BMP ####[id number] [facility] Creatinine [Mass/volume] in Serum or PlasmaOrdered By: Mejia Aaron on 03-26-2024 Creatinine [Mass/Vol] Creatinine [Mass/v olume] in Serum or Plasma 0.60-1.20 [facility] ECH echo transthoracicon ECH echo transthoracic Normal Th e [facility] Eosinophils Auto (Bld) [#/Vo l]Ordered By: Mejia Aaron on 03-26-2024 Eosinophils (Bld) [#/Vol] Automated eosinophil count 0.0-0.45 [facility] Eosinophils/100 WBC Auto (Bl d)Ordered By: Mejia Aaron on 03-26-2024 Eosinophils/100 WBC (Bld) Automated eosinophil % . [facility] Erythrocyte distribution wid th Auto (RBC) [Ratio]Ordered By: Mejia Aaron on 03-26-2024 Erythrocyte distribution width (RBC) [Ratio] Erythrocyte distribution width [Ratio] by Automated count 11.9-15.3 [facility] Glucose [Mass/volume] in Ser um or PlasmaOrdered By: Mejia Aaron on 03-26-2024 Glucose [Mass/Vol] Glucose [Mass/volume ] in Serum or Plasma High 70-100 [facility] Gram Stainon 03-26-2024 Microscopic observation Gram stain Nom (Unsp spec) Normal [facility] Comment on above: Performed By: #### A [facility], [facility] ####[facility] [id number] Gram stain microscopyOrdered By: Mejia Aaron on 03-26-2024 Microscopic observation Gram stain Nom (Unsp spec) Gram stain microscopy [facility] Hematocrit Auto (Bld) [Volum e fraction]Ordered By: Mejia Aaron on 03-26-2024 Hematocrit (Bld) [Volume fraction] Hematocrit [Volume Fraction] of Blood by Automated count Low 34.0-46.4 [facility] Hemoglobin [Mass/volume] in BloodOrdered By: Mejia Aaron on 03-26-2024 Hemoglobin (Bld) [Mass/Vol] Hemoglobin [Mass/volume] in Blood Low 11.8-15.4 [facility] Heparin anti-Xa unfractionat edOrdered By: Mejia Aaron on 03-26-2024 Heparin unfractionated Chromogenic method Qn (PPP) Heparin anti-Xa unfractionated Low 0.30-0.70 [facility] Leukocytes [#/volume] correc hugh for nucleated erythrocytes in Blood by Automated counOrdered By: Mejia Aaron on 03-26-2024 WBC corrected for nucl RBC Auto (Bld) [#/Vol] Leukocytes [#/volume] corrected for nucleated erythrocytes in Blood by Automated coun 3.8-11.6 [facility] Lymphocytes Auto (Bld) [#/Vo l]Ordered By: Mejia Aaron on 03-26-2024 Lymphocytes (Bld) [#/Vol] Lymphocytes [#/volume] in Blood by Automated count 1.00-4.8 [facility] Lymphocytes/100 WBC Auto (Bl d)Ordered By: Mejia Aaron on 03-26-2024 Lymphocytes/100 WBC (Bld) Lymphocytes/100 leukocytes in Blood by Automated count . [facility] MCH Auto (RBC) [Entitic mass ]Ordered By: Mejia Aaron on 03-26-2024 MCH (RBC) [Entitic mass] MCH [Entitic mass] by Automated count 24.7-34.3 [facility] MCHC Auto (RBC) [Mass/Vol]Or dered By: Mejia Aaron on 03-26-2024 MCHC (RBC) [Mass/Vol] MCHC [Mass/volume] by Automated count 32.0-35.0 [facility] MCV Auto (RBC) [Entitic vol] Ordered By: Mejia Aaron on 03-26-2024 MCV (RBC) [Entitic vol] MCV [Entitic volume] by Automated count 80-100 [facility] Monocytes Auto (Bld) [#/Vol] Ordered By: Mejia Aaron on 03-26-2024 Monocytes (Bld) [#/Vol] Automated blood monocyte count 0.0-0.8 [facility] Monocytes/100 WBC Auto (Bld) Ordered By: Mejia Aaron on 03-26-2024 Monocytes/100 WBC (Bld) Automated monocyte % . [facility] Neutrophils Auto (Bld) [#/Vo l]Ordered By: Mejia Aaron on 03-26-2024 Neutrophils (Bld) [#/Vol] Neutrophils [#/volume] in Blood by Automated count 1.8-7.7 [facility] Neutrophils/100 WBC Auto (Bl d)Ordered By: Mejia Aaron on 03-26-2024 Neutrophils/100 WBC (Bld) Automated neutrophil % . [facility] No Panel InformationOrdered By: Mejia Aaron on 03-26-2024 > 60.0 mL/Min [facility] 56.09 [facility] Nucleated erythrocytes [Pres ence] in Blood by Automated countOrdered By: Mejia Aaron on 03-26-2024 Nucleated RBC Auto Ql (Bld) Nucleated erythrocytes [Presence] in Blood by Automated count 0-0.5 [facility] Platelet mean volume Auto (B ld) [Entitic vol]Ordered By: Mejia Aaron on 03-26-2024 Platelet mean volume (Bld) [Entitic vol] Platelet mean volume [Entitic volume] in Blood by Automated count 6.3-10.7 [facility] Platelets Auto (Bld) [#/Vol] Ordered By: Mejia Aaron on 03-26-2024 Platelets (Bld) [#/Vol] Platelets [#/volume] in Blood by Automated count 150-450 [facility] Potassium [Moles/volume] in Serum or PlasmaOrdered By: Mejia Aaron on 03-26-2024 Potassium [Moles/Vol] Potassium [Moles/v olume] in Serum or Plasma Low 3.5-5.1 [facility] RBC Auto (Bld) [#/Vol]Ordere d By: Mejia Aaron on 03-26-2024 RBC (Bld) [#/Vol] Erythrocytes [#/volu me] in Blood by Automated count 3.60-5.00 [facility] Serum or plasma anion gap de terminationOrdered By: Mejia Aaron on 03-26-2024 Anion gap [Moles/Vol] Serum or plasma an ion gap determination 6.0-15.0 [facility] Sodium [Moles/volume] in Ser um or PlasmaOrdered By: Mejia Aaron on 03-26-2024 Sodium [Moles/Vol] Sodium [Moles/volume ] in Serum or Plasma 136-145 [facility] Urea nitrogen [Mass/volume] in Serum or PlasmaOrdered By: Mejia Aaron on 03-26-2024 Urea nitrogen [Mass/Vol] Urea nitrogen [Mass/volume] in Serum or Plasma 09-28 [facility] WBC Auto (Bld) [#/Vol]Ordere d By: Mejia Aaron on 03-26-2024 WBC (Bld) [#/Vol] Leukocytes [#/volume ] in Blood by Automated count 3.8-11.6 [facility] A1C with Estimated Average G pricilan 2024 Glucose [Mass/Vol] 120 mg/dL Normal [facility] Comment on above: Result Comment: PERF ORMED BY:[address] [place], [place] [phone] MEDICAL DIRECTORDOROTHY MENA M.D. Performed By: #### A 1C [facility] eA ####[address] [place] [address] [facility] HbA1c (Bld) [Mass fraction] 5.8 % High 4.3-5.6 [facility] Comment on above: Result Comment: Incr eased risk for diabetes: 5.7 - 6.4 diabetes: >6.4 glycemic control for adults with diabetes: <7.0 Performed By: #### A 1C [facility] eA ####[address] [address] [facility] Alanine aminotransferase [En zymatic activity/volume] in Serum or PlasmaOrdered By: Mejia Aaron on 2024 ALT [Catalytic activity/Vol] Alanine aminotransferase [Enzymatic activity/volume] in Serum or Plasma [facility] Albumin [Mass/volume] in Ser um or Plasma by Bromocresol green (BCG) dye binding methoOrdered By: Mejia Aaron on 2024 Albumin BCG dye [Mass/Vol] Albumin [Mass/volume] in Serum or Plasma by Bromocresol green (BCG) dye binding metho 3.5-5.7 [facility] Alkaline phosphatase [Enzyma tic activity/volume] in Serum or PlasmaOrdered By: Mejia Aaron on 2024 ALP [Catalytic activity/Vol] Alkaline phosphatase [Enzymatic activity/volume] in Serum or Plasma High 34-104 [facility] Anti-Xa UF Heparinon 025 Anti-Xa UF Heparin 0.31 [IU]/mL Normal 0.30-0.70 [facility] Comment on above: Result Comment: Use the aPTT protocol when triglycerides are > 800 mg/dL, total bilirubin is > 20 mg/dL and/or patient has received a DOAC, Fondaparinux or LMWH within 72 hours AND baseline anti-Xa level is > 0.7 units/mLPERFORMED BY:[address] [address] [place], [place] [phone] MEDICAL DIRECTORDOROTHY MENA M.D. Performed By: #### [facility] ####[address] [place] [address] [facility] Anti-Xa UF Heparin 0.24 [IU]/mL Low 0.30-0.70 [facility] Comment on above: Result Comment: Use the aPTT protocol when triglycerides are > 800 mg/dL, total bilirubin is > 20 mg/dL and/or patient has received a DOAC, Fondaparinux or LMWH within 72 hours AND baseline anti-Xa level is > 0.7 units/mLPERFORMED BY:[address] [place], [place] [phone] MEDICAL DIRECTORDOROTHY MENA M.D. Performed By: #### [facility] ####[address] [address] [facility] Aspartate aminotransferase [ Enzymatic activity/volume] in Serum or PlasmaOrdered By: Mejia Aaron on 2024 AST [Catalytic activity/Vol] Aspartate aminotransferase [Enzymatic activity/volume] in Serum or Plasma 13-39 [facility] Bilirubin.total [Mass/volume ] in Serum or PlasmaOrdered By: Mejia Aaron on 01-19-2025 Bilirubin [Mass/Vol] Bilirubin.total [Mass/volume] in Serum or Plasma 0.3-1.0 [facility] Blood estimated average gluc ose determination by estimation from glycated hemoglobinOrdered By: Mejia Aaron on 2024 Average glucose Estimated from glycated hemoglobin (Bld) [Mass/Vol] Glucose mean value [Mass/volume] in Blood Estimated from glycated hemoglobin [facility] Cholesterol [Mass/volume] in Serum or PlasmaOrdered By: Mejia Aaron on 2024 Cholesterol [Mass/Vol] Cholesterol [Mass /volume] in Serum or Plasma 140-200 [facility] Cholesterol in HDL [Mass/vol ume] in Serum or PlasmaOrdered By: Mejiasanegeta Aaron on 2024 Cholesterol in HDL [Mass/Vol] Serum or plasma high density lipoprotein (HDL) cholesterol measurement 23-92 [facility] Cholesterol in LDL Calc [Mas s/Vol]Ordered By: Mejia Aaron on 2024 Cholesterol in LDL [Mass/Vol] Cholesterol in LDL [Mass/volume] in Serum or Plasma by calculation 0-100 [facility] Cholesterol in VLDL Calc [Ma ss/Vol]Ordered By: Mejiasangeeta Aaron on 2024 Cholesterol in VLDL [Mass/Vol] Cholesterol in VLDL [Mass/volume] in Serum or Plasma by calculation [facility] Complete Blood Count Auto Di ffon 2024 Basophils (Bld) [#/Vol] 0.1 10*3/uL Normal 0.0-0.2 [facility] Comment on above: Result Comment: PERF ORMED BY:[address] [place], [place] [phone] MEDICAL DIRECTORDOROTHY MENA M.D. Performed By: #### C BC, PTT, PT ####[address] Basophils/100 WBC (Bld) 0.9 % Normal . [facility] Comment on above: Performed By: #### C BC, PTT, PT ####[address] [place] Eosinophils (Bld) [#/Vol] 0.0 10*3/uL Normal 0.0-0.45 [facility] Comment on above: Performed By: #### C BC, PTT, PT ####[address] Eosinophils/100 WBC (Bld) 0.4 % Normal . [facility] Comment on above: Performed By: #### C BC, PTT, PT ####[address] Erythrocyte distribution width (RBC) [Ratio] 15.0 % Normal 11.9-15.3 [facility] Comment on above: Performed By: #### C BC, PTT, PT ####[address] Hematocrit (Bld) [Volume fraction] 33.5 % Low 34.0-46.4 [facility] Comment on above: Performed By: #### C BC, PTT, PT ####[address] Hemoglobin (Bld) [Mass/Vol] 11.2 g/dL Low 11.8-15.4 [facility] Comment on above: Performed By: #### C BC, PTT, PT ####[address] Lymphocytes (Bld) [#/Vol] 1.3 10*3/uL Normal 1.00-4.8 [facility] Comment on above: Performed By: #### C BC, PTT, PT ####[address] Lymphocytes/100 WBC (Bld) 19.0 % Normal . [facility] Comment on above: Performed By: #### C BC, PTT, PT ####[address] MCH (RBC) [Entitic mass] 29.3 pg Normal 24.7-34.3 The [facility] Comment on above: Performed By: #### C BC, PTT, PT ####[place] [id number] [facility] MCV (RBC) [Entitic vol] 87.5 fL Normal 80-100 The [facility] Comment on above: Performed By: #### C BC, PTT, PT ####[place] [id number] [facility] Mean Corpuscular HGB Conc 33.4 g/dL Normal 32.0-35.0 The [facility] Comment on above: Performed By: #### C BC, PTT, PT ####[place] [id number] [facility] Monocytes (Bld) [#/Vol] 0.5 10*3/uL Normal 0.0-0.8 The [facility] Comment on above: Performed By: #### C BC, PTT, PT ####[place] [phone] [facility] Monocytes/100 WBC (Bld) 7.3 % Normal . The [facility] Comment on above: Performed By: #### C BC, PTT, PT ####[address] Neutrophils (Bld) [#/Vol] 5.1 10*3/uL Normal 1.8-7.7 The [facility] Comment on above: Performed By: #### C BC, PTT, PT ####[place] [id number] [facility] Neutrophils/100 WBC (Bld) 72.4 % Normal . The [facility] Comment on above: Performed By: #### C BC, PTT, PT ####[place] [id number] [facility] NRBC% 0.1 /100{WBC} Normal 0-0.5 The [facility] Comment on above: Performed By: #### C BC, PTT, PT ####[place] [phone] [facility] Platelet mean volume (Bld) [Entitic vol] 8.0 fL Normal 6.3-10.7 The [facility] Comment on above: Performed By: #### C BC, PTT, PT ####[place] [phone] [facility] Platelets (Bld) [#/Vol] 205 10*3/uL Normal 150-450 The [facility] Comment on above: Performed By: #### C BC, PTT, PT ####[place] [phone] [facility] RBC (Bld) [#/Vol] 3.83 10*6/uL Normal 3.60-5.00 The [facility] Comment on above: Performed By: #### C BC, PTT, PT ####[place] [phone] [facility] WBC (Bld) [#/Vol] 7.0 10*3/uL Normal 3.8-11.6 The [facility] Comment on above: Performed By: #### C BC, PTT, PT ####[address] Comprehensive Metabolic Pane lelia 2024 Albumin [Mass/Vol] 3.7 g/dL Normal 3.5-5.7 The [facility] Comment on above: Order Comment: FASTI NG Y Performed By: #### L IPID, CMP ####[address] Albumin/Globulin [Mass ratio] 1.5 {ratio} Normal The [facility] Comment on above: Order Comment: FASTI NG Y Performed By: #### L IPID, CMP ####[place] [id number] [facility] ALP [Catalytic activity/Vol] 125 U/L High 34-104 The [facility] Comment on above: Order Comment: FASTI NG Y Performed By: #### L IPID, CMP ####[address] ALT [Catalytic activity/Vol] 25 U/L Normal 7-52 The [facility] Comment on above: Order Comment: FASTI NG Y Performed By: #### L IPID, CMP ####[place] [address] [place] [id number] [facility] Anion gap [Moles/Vol] 10.5 mmol/L Normal 6.0-15.0 Th e [facility] Comment on above: Order Comment: FASTI NG Y Performed By: #### L IPID, CMP ####[place] [id number] [facility] AST [Catalytic activity/Vol] 23 U/L Normal 13-39 The [facility] Comment on above: Order Comment: FASTI NG Y Performed By: #### L IPID, CMP ####[place] [id number] [facility] Bilirubin [Mass/Vol] 0.4 mg/dL Normal 0.3-1.0 The [facility] Comment on above: Order Comment: FASTI NG Y Performed By: #### L IPID, CMP ####[place] [phone] [facility] Calcium [Mass/Vol] 8.7 mg/dL Normal 8.6-10.3 The [facility] Comment on above: Order Comment: FASTI NG Y Performed By: #### L IPID, CMP ####[place] [phone] [facility] Chloride [Moles/Vol] 99 mmol/L Normal 98-107 The [facility] Comment on above: Order Comment: FASTI NG Y Performed By: #### L IPID, CMP ####[place] [phone] [facility] CO2 [Moles/Vol] 38.2 mmol/L High 21.0-31.0 The [facility] Comment on above: Order Comment: FASTI NG Y Performed By: #### L IPID, CMP ####[place] [phone] [facility] Creatinine [Mass/Vol] 0.95 mg/dL Normal 0.60-1.20 The [facility] Comment on above: Order Comment: FASTI NG Y Performed By: #### L IPID, CMP ####[address] [address] [facility] Creatinine Clr Calc Pharmacy 56.88 Normal The [facility] Comment on above: Order Comment: FASTI NG Y Performed By: #### L IPID, CMP ####[place] [id number] [facility] GFR/1.73 sq M.predicted MDRD (S/P/Bld) [Vol rate/Area] mL/min/{1.73_m2} Normal The [facility] Comment on above: Order Comment: FASTI NG Y Performed By: #### L IPID, CMP ####[address] [address] [facility] Globulin (S) [Mass/Vol] 2.4 g/dL Normal The [facility] Comment on above: Order Comment: FASTI NG Y Performed By: #### L IPID, CMP ####[address] Glucose [Mass/Vol] 106 mg/dL High 70-100 The [facility] Comment on above: Order Comment: FASTI NG Y Result Comment: [facility] Glucose Reference Range is dependent on time and content of last meal. Glucose of more than 200 mg/dL in a nonstressed, ambulatory subject supports the diagnosis of Diabetes Mellitus. ADA recommended reference range Performed By: #### L IPID, CMP ####[place] [id number] [facility] Potassium [Moles/Vol] 3.7 mmol/L Normal 3.5-5.1 The [facility] Comment on above: Order Comment: FASTI NG Y Performed By: #### L IPID, CMP ####[address] [address] [facility] Protein [Mass/Vol] 6.1 g/dL Low 6.4-8.9 The [facility] Comment on above: Order Comment: FASTI NG Y Performed By: #### L IPID, CMP ####[place] [id number] [facility] Sodium [Moles/Vol] 144 mmol/L Normal 136-145 The [facility] Comment on above: Order Comment: FASTI NG Y Performed By: #### L IPID, CMP ####[facility] [id number] [place] [address] [facility] Urea nitrogen [Mass/Vol] 17 mg/dL Normal 7-25 The [facility] Comment on above: Order Comment: FASTI NG Y Performed By: #### L IPID, CMP ####[place] [address] [place] [address] [facility] ECG 12 lead ECGon 2024 ECG 12 lead ECG Normal The [facility] Globulin Calc (S) [Mass/Vol] Ordered By: Mejia Aaron on 2024 Globulin (S) [Mass/Vol] Serum globulin measurement by calculation (mass/volume) [facility] Hemoglobin A1c/Hemoglobin.to claudia in BloodOrdered By: Mejia Aaron on 2024 HbA1c (Bld) [Mass fraction] Hemoglobin A1c percentage High 4.3-5.6 [facility] INR in Platelet poor plasma by Coagulation assayOrdered By: Mejia Aaron on 2024 INR Coag (PPP) [Relative time] INR in Platelet poor plasma by Coagulation assay [facility] Lipid Panelon 2024 Cholesterol [Mass/Vol] 158 mg/dL Normal 140-200 Th e [facility] Comment on above: Order Comment: FASTI NG Y Result Comment: Chol less than 200 mg/dl low risk Chol 201-239 mg/dl borderline risk Chol 240 mg/dl and greater high risk Performed By: #### L IPID, CMP ####[facility] [place] [id number] [facility] Cholesterol in HDL [Mass/Vol] 60 mg/dL Normal 23-92 The [facility] Comment on above: Order Comment: FASTI NG Y Result Comment: HDL CHOL ATP-III CLASSIFICATION Cardiovascular Risk HDL > or equal to 60 mg/dL LOW HDL < 40 mg/dL HIGH Performed By: #### L IPID, CMP ####[facility] [id number] [place] [address] [facility] Cholesterol.total/Chol esterol in HDL [Mass ratio] 2.6 {ratio} Normal <5.0 The [facility] Comment on above: Order Comment: FASTI NG Y Result Comment: PERF ORMED BY:[address] [place], [place] [phone] MEDICAL DIRECTORDOROTHY MENA M.D. Performed By: #### L IPID, CMP ####[place] [id number] [facility] LDL Cholesterol,Calculated 77 mg/dL Normal 0-100 The [facility] Comment on above: Order Comment: FASTI NG Y Result Comment: LDL ATP III CLASSIFICATION LDL less than 100 mg/dL Optimal LDL 100-129 mg/dL Near or above optimal LDL 130-159 mg/dL Borderline high LDL 160-189 mg/dL High LDL greater than 189 mg/dL Very high Performed By: #### L IPID, CMP ####[place] [id number] [facility] Triglyceride w/Reflex 104 mg/dL Normal 0-149 The [facility] Comment on above: Order Comment: FASTI NG Y Result Comment: TRIG ATP III CLASSIFICATION TRIG less than 150 mg/dL Normal TRIG 150-199 mg/dL Borderline high TRIG 200-500 mg/dL High TRIG greater than 500 mg/dL Very high Standard traceable to the Center for Disease Conrtrol and Prevention (CDC) test method. Performed By: #### L IPID, CMP ####[place] [id number] [facility] VLDL CHOLESTEROL 20 mg/dL Normal The [facility] Comment on above: Order Comment: FASTI NG Y Performed By: #### L IPID, CMP ####[facility] [place] [address] [place] Partial Thromboplastin Timeo n 2024 aPTT Coag (Bld) [Time] 44.0 s High 25.1-36.5 Th e [facility] Comment on above: Result Comment: A he matocrit value greater than 55% may lead to inaccurate results in coagulation testing. Patients having hematocrit values >55% require a special collection tube for coagulation studies. Please contact the laboratory at [phone] for redraw instructions.PERFORMED BY:[facility] [place], [place] [phone] MEDICAL DIRECTORDOROTHY MENA M.D. Performed By: #### C BC, PTT, PT ####[facility] [place] [address] [facility] Protein [Mass/volume] in Ser um or PlasmaOrdered By: Mejia Aaron on 2024 Protein [Mass/Vol] Protein [Mass/volume ] in Serum or Plasma Low 6.4-8.9 [facility] Prothrombin Time INRon 03-25 INR Coag (PPP) [Relative time] 1.0 {INR} Normal The [facility] Comment on above: Result Comment: INR Therapeutic Range A) Pre- and Peroperative OAT started two weeks before surgery. NOT HIP SURGERY: 1.5 - 2.5 HIP SURGERY: 2 - 3 B) Primary and secondary prevention of venous THROMBOSIS: 2 - 3 C) Active venous thrombosis, pulmonary embolism and prevention of recurrent venous thrombosis: 2 - 3 D) Prevention of arterial thromboembolism including patients with mechanical heart valves: 3 - 4.5 Performed By: #### C BC, PTT, PT ####[place] [address] [place] [address] [facility] PT Coag (PPP) [Time] 11.8 s Normal 9.0-12.9 The [facility] Comment on above: Result Comment: A he matocrit value greater than 55% may lead to inaccurate results in coagulation testing. Patients having hematocrit values >55% require a special collection tube for coagulation studies. Please contact the laboratory at [phone] for redraw instructions. Performed By: #### C BC, PTT, PT ####[facility] [place] [address] [facility] Prothrombin time (PT)Ordered By: Mejia Aaron on 2024 PT Coag (PPP) [Time] Prothrombin time (PT) 9.0- 12.9 [facility] Serum or plasma albumin/glob ulin mass ratioOrdered By: Mejia Aaron on 01-19-2025 Albumin/Globulin [Mass ratio] Serum or plasma albumin/globulin mass ratio [facility] Serum or plasma total choles terol/high density lipoprotein (HDL) cholesterol mass ratOrdered By: Mejia Aaron on 2024 Cholesterol.total/Chol esterol in HDL [Mass ratio] Serum or plasma total cholesterol/high density lipoprotein (HDL) cholesterol mass rat <5.0 [facility] Triglyceride [Mass/volume] i n Serum or PlasmaOrdered By: Mejia Aaron on 2024 Triglyceride [Mass/Vol] Triglyceride [Mass/volume] in Serum or Plasma 0-149 [facility] Troponin I High Sensitivityo n 2024 Troponin I High Sensitivity 801 Off scale high 0-15 The [facility] Comment on above: Result Comment: Rosit ical Result : Called to and read back by: RODERICK HA at: 2024 06:07:32 by:[id number] The Troponin units of report have been changed to meet the Chest Pain Accreditation requirement, element EC5.M1l2. Troponin units are changed from pg/ml to ng/L. Also, the decimal is removed and results are in whole numbers.PERFORMED BY:[facility] [place] [address] [place], [place] [phone] MEDICAL DIRECTORDOROTHY MENA M.D. Performed By: #### H S TROP ####[facility] [place] [address] [facility] Troponin I.cardiac [Mass/vol ume] in Serum or Plasma by Detection limit <= 0.01 ng/Ordered By: Mejia Aaron on 2024 Troponin I.cardiac DL <= 0.01 ng/mL [Mass/Vol] Troponin I.cardiac [Mass/volume] in Serum or Plasma by Detection limit <= 0.01 ng/ Critically high 0-15 [facility] aPTT in Platelet poor plasma by Coagulation assayOrdered By: Mejia Aaron on 2024 aPTT Coag (PPP) [Time] Activated partial thromboplastin time (aPTT) in platelet poor plasma by coagulation a High 25.1-36.5 [facility] Alanine aminotransferase [En zymatic activity/volume] in Serum or PlasmaOrdered By: Jose Min on 03-24-2024 ALT [Catalytic activity/Vol] Alanine aminotransferase [Enzymatic activity/volume] in Serum or Plasma 7-52 [facility] Albumin [Mass/volume] in Ser um or Plasma by Bromocresol green (BCG) dye binding methoOrdered By: Jose Min on 03-24-2024 Albumin BCG dye [Mass/Vol] Albumin [Mass/volume] in Serum or Plasma by Bromocresol green (BCG) dye binding metho 3.5-5.7 [facility] Alkaline phosphatase [Enzyma tic activity/volume] in Serum or PlasmaOrdered By: Jose Min on 03-24-2024 ALP [Catalytic activity/Vol] Alkaline phosphatase [Enzymatic activity/volume] in Serum or Plasma High 34-104 [facility] Anti-Xa UF Heparinon 025 Anti-Xa UF Heparin 0.55 [IU]/mL Normal 0.30-0.70 The [facility] Comment on above: Result Comment: Use the aPTT protocol when triglycerides are > 800 mg/dL, total bilirubin is > 20 mg/dL and/or patient has received a DOAC, Fondaparinux or LMWH within 72 hours AND baseline anti-Xa level is > 0.7 units/mLPERFORMED BY:[place] [address] [address] [place], [place] [phone] MEDICAL DIRECTORDOROTHY MENA M.D. Performed By: #### U [facility] ####[address] [address] [facility] Anti-Xa UF Heparin <0.04 Low 0.30-0.70 [facility] Comment on above: Result Comment: Use the aPTT protocol when triglycerides are > 800 mg/dL, total bilirubin is > 20 mg/dL and/or patient has received a DOAC, Fondaparinux or LMWH within 72 hours AND baseline anti-Xa level is > 0.7 units/mLPERFORMED BY:[place] [address] [address] [place], [place] [phone] MEDICAL DIRECTORMOBRIANNA Lerma.D. Performed By: #### U FHEP ####[facility] [id number] [place] [id number] [facility] Arterial Blood Gason 025 ABG Base Excess 6.2 mmol/L High -3.0-3.0 The [facility] Comment on above: Performed By: #### A BG ####Point of Care testing, ABG Frac Inspired O2 44 % Normal The [facility] Comment on above: Performed By: #### A BG ####Point of Care testing, ABG Oxygen Content 7.1 mmol/L Normal 6.6-9.7 [facility] Comment on above: Performed By: #### A BG ####Point of Care testing, ABG Oxygen Saturation 95.9 % Normal 95.0-100.0 The [facility] Comment on above: Performed By: #### A BG ####Point of Care testing, ABG PCO2 44.6 mm[Hg] Normal 35.0-45.0 The [facility] Comment on above: Performed By: #### A BG ####Point of Care testing, ABG PH 7.46 High 7.35-7.45 The [facility] Comment on above: Performed By: #### A BG ####Point of Care testing, ABG PO2 76.9 mm[Hg] Low 80.0-100.0 The [facility] Comment on above: Performed By: #### A BG ####Point of Care testing, CO2 [Moles/Vol] 32.2 mmol/L High 23.0-27.0 [facility] Comment on above: Performed By: #### A BG ####Point of Care testing, HCO3 (Bld) [Moles/Vol] 30.8 mmol/L High 23.0-29.0 T he [facility] Comment on above: Performed By: #### A BG ####Point of Care testing, Oxygen Device Nasal Cannula Normal [facility] Comment on above: Performed By: #### A BG ####Point of Care testing, Respiratory Critical Normal [facility] Comment on above: Result Comment: Crit ical Value called on: 03/24/2024 at 14:06PERFORMED BY:[address] [place], [place] [phone] MEDICAL DIRECTORDOROTHY MENA M.D. Performed By: #### A BG ####Point of Care testing, VBG Draw Site Left Radial Normal The [facility] Comment on above: Performed By: #### A BG ####Point of Care testing, Aspartate aminotransferase [ Enzymatic activity/volume] in Serum or PlasmaOrdered By: Jose Min on 03-24-2024 AST [Catalytic activity/Vol] Aspartate aminotransferase [Enzymatic activity/volume] in Serum or Plasma 13-39 [facility] B-Type Natriuretic Peptideon 03-24-2024 Natriuretic peptide B (Bld) [Mass/Vol] 1865.0 pg/mL High 5-100 [facility] Comment on above: Result Comment: PERF ORMED BY:[address] [place]Z[place], [place] [phone] MEDICAL DIRECTORDOROTHY MENA M.D. Performed By: #### B MILITARY COMMUNICATIONS SPECIALIST, PTT, CUBLD, PT, CBC, HS TROP, CMP, CK ####[facility] [id number] [place] [address] [facility] Basophils Auto (Bld) [#/Vol] Ordered By: Jose Min on 03-24-2024 Basophils (Bld) [#/Vol] Automated basophil count 0.0-0.2 [facility] Basophils/100 WBC Auto (Bld) Ordered By: Jose Min on 03-24-2024 Basophils/100 WBC (Bld) Automated basophil % . [facility] Bilirubin.total [Mass/volume ] in Serum or PlasmaOrdered By: Jose Min on 03-24-2024 Bilirubin [Mass/Vol] Bilirubin.total [Mass/volume] in Serum or Plasma 0.3-1.0 [facility] BioFire Not Detectedon 03-24 BioFire Not Detected Not detected Normal Not Detecte The [facility] Comment on above: Result Comment: This is a duplicate RP2.1 COVID (PCR) result to be used for statistical tracking purpose only.PERFORMED BY:[address], [place] [phone] MEDICAL DIRECTORDOROTHY MENA M.D. Performed By: #### R PATY PANEL UPP., BIOFIRECOVNOTDE ####[place] [id number] [facility] Blood Cultureon 03-24-2024 Bacteria identified Cx Nom (Bld) NO GROWTH 5 DAYS PERFORMED BY: [place] [id number] PATHOLOGIST IMMIGRATION OFFICER DOROTHY MENA M.D. Normal The [facility] Comment on above: Performed By: #### B MILITARY COMMUNICATIONS SPECIALIST, PTT, CUBLD, PT, CBC, HS TROP, CMP, CK ####[place] [phone] [facility] Bacteria identified Cx Nom (Bld) NO GROWTH 5 DAYS PERFORMED BY: [address] [address] PATHOLOGIST IMMIGRATION OFFICER DOROTHY MENA M.D. Normal The [facility] Comment on above: Performed By: #### B MILITARY COMMUNICATIONS SPECIALIST, PTT, CUBLD, PT, CBC, HS TROP, CMP, CK ####[place] [phone] [facility] COVID-19 Detected/Not Detect edOrdered By: Jose Min on 03-24-2024 SARS-CoV-2 (COVID-19) RNA MITCHELL+non-probe Ql (Nph) Not detected Not Detecte [facility] CT angio chest PE protocolon 03-24-2024 CT angio chest PE protocol Normal [facility] Calcium [Mass/volume] in Ser um or PlasmaOrdered By: Jose Min on 03-24-2024 Calcium [Mass/Vol] Calcium [Mass/volume ] in Serum or Plasma Low 8.6-10.3 [facility] Carbon dioxide, total [Moles /volume] in Serum or PlasmaOrdered By: Jose Min on 03-24-2024 CO2 [Moles/Vol] Carbon dioxide, tota l [Moles/volume] in Serum or Plasma High 21.0-31.0 [facility] Chloride [Moles/volume] in S cait or PlasmaOrdered By: Jose Min on 03-24-2024 Chloride [Moles/Vol] Chloride [Moles/vol ume] in Serum or Plasma 98-107 [facility] Complete Blood Count Auto Di ffon 03-24-2024 Basophils (Bld) [#/Vol] 0.0 10*3/uL Normal 0.0-0.2 [facility] Comment on above: Result Comment: PERF ORMED BY:[address] [place], [place] [phone] MEDICAL DIRECTORDOROTHY MENA M.D. Performed By: #### B MILITARY COMMUNICATIONS SPECIALIST, PTT, CUBLD, PT, CBC, HS TROP, CMP, CK ####[address] Basophils/100 WBC (Bld) 0.7 % Normal . [facility] Comment on above: Performed By: #### B MILITARY COMMUNICATIONS SPECIALIST, PTT, CUBLD, PT, CBC, HS TROP, CMP, CK ####[address] Eosinophils (Bld) [#/Vol] 0.3 10*3/uL Normal 0.0-0.45 [facility] Comment on above: Performed By: #### B MILITARY COMMUNICATIONS SPECIALIST, PTT, CUBLD, PT, CBC, HS TROP, CMP, CK ####[place] [phone] [facility] Eosinophils/100 WBC (Bld) 4.6 % Normal . [facility] Comment on above: Performed By: #### B MILITARY COMMUNICATIONS SPECIALIST, PTT, CUBLD, PT, CBC, HS TROP, CMP, CK ####[address] Erythrocyte distribution width (RBC) [Ratio] 15.1 % Normal 11.9-15.3 [facility] Comment on above: Performed By: #### B MILITARY COMMUNICATIONS SPECIALIST, PTT, CUBLD, PT, CBC, HS TROP, CMP, CK ####[address] Hematocrit (Bld) [Volume fraction] 33.2 % Low 34.0-46.4 [facility] Comment on above: Performed By: #### B MILITARY COMMUNICATIONS SPECIALIST, PTT, CUBLD, PT, CBC, HS TROP, CMP, CK ####[address] Hemoglobin (Bld) [Mass/Vol] 11.0 g/dL Low 11.8-15.4 [facility] Comment on above: Performed By: #### B MILITARY COMMUNICATIONS SPECIALIST, PTT, CUBLD, PT, CBC, HS TROP, CMP, CK ####[address] Lymphocytes (Bld) [#/Vol] 0.7 10*3/uL Low 1.00-4.8 [facility] Comment on above: Performed By: #### B MILITARY COMMUNICATIONS SPECIALIST, PTT, CUBLD, PT, CBC, HS TROP, CMP, CK ####[address] Lymphocytes/100 WBC (Bld) 9.6 % Normal . [facility] Comment on above: Performed By: #### B MILITARY COMMUNICATIONS SPECIALIST, PTT, CUBLD, PT, CBC, HS TROP, CMP, CK ####[address] MCH (RBC) [Entitic mass] 28.5 pg Normal 24.7-34.3 [facility] Comment on above: Performed By: #### B MILITARY COMMUNICATIONS SPECIALIST, PTT, CUBLD, PT, CBC, HS TROP, CMP, CK ####[address] MCV (RBC) [Entitic vol] 86.5 fL Normal 80-100 [facility] Comment on above: Performed By: #### B MILITARY COMMUNICATIONS SPECIALIST, PTT, CUBLD, PT, CBC, HS TROP, CMP, CK ####[address] Mean Corpuscular HGB Conc 33.0 g/dL Normal 32.0-35.0 [facility] Comment on above: Performed By: #### B MILITARY COMMUNICATIONS SPECIALIST, PTT, CUBLD, PT, CBC, HS TROP, CMP, CK ####[address] Monocytes (Bld) [#/Vol] 0.4 10*3/uL Normal 0.0-0.8 [facility] Comment on above: Performed By: #### B MILITARY COMMUNICATIONS SPECIALIST, PTT, CUBLD, PT, CBC, HS TROP, CMP, CK ####[address] Monocytes/100 WBC (Bld) 17.25 % Normal 0.00-20.00 [facility] Comment on above: Performed By: #### B MILITARY COMMUNICATIONS SPECIALIST, PTT, CUBLD, PT, CBC, HS TROP, CMP, CK ####[address] Monocytes/100 WBC (Bld) 5.2 % Normal . [facility] Comment on above: Performed By: #### B MILITARY COMMUNICATIONS SPECIALIST, PTT, CUBLD, PT, CBC, HS TROP, CMP, CK ####[address] Neutrophils (Bld) [#/Vol] 5.8 10*3/uL Normal 1.8-7.7 [facility] Comment on above: Performed By: #### B MILITARY COMMUNICATIONS SPECIALIST, PTT, CUBLD, PT, CBC, HS TROP, CMP, CK ####[address] Neutrophils/100 WBC (Bld) 79.9 % Normal . [facility] Comment on above: Performed By: #### B MILITARY COMMUNICATIONS SPECIALIST, PTT, CUBLD, PT, CBC, HS TROP, CMP, CK ####[address] NRBC% 0.0 /100{WBC} Normal 0-0.5 [facility] Comment on above: Performed By: #### B MILITARY COMMUNICATIONS SPECIALIST, PTT, CUBLD, PT, CBC, HS TROP, CMP, CK ####[address] Platelet mean volume (Bld) [Entitic vol] 7.8 fL Normal 6.3-10.7 [facility] Comment on above: Performed By: #### B MILITARY COMMUNICATIONS SPECIALIST, PTT, CUBLD, PT, CBC, HS TROP, CMP, CK ####[address] Platelets (Bld) [#/Vol] 209 10*3/uL Normal 150-450 [facility] Comment on above: Performed By: #### B MILITARY COMMUNICATIONS SPECIALIST, PTT, CUBLD, PT, CBC, HS TROP, CMP, CK ####[address] RBC (Bld) [#/Vol] 3.84 10*6/uL Normal 3.60-5.00 [facility] Comment on above: Performed By: #### B MILITARY COMMUNICATIONS SPECIALIST, PTT, CUBLD, PT, CBC, HS TROP, CMP, CK ####[address] WBC (Bld) [#/Vol] 7.3 10*3/uL Normal 3.8-11.6 [facility] Comment on above: Performed By: #### B MILITARY COMMUNICATIONS SPECIALIST, PTT, CUBLD, PT, CBC, HS TROP, CMP, CK ####[address] Comprehensive Metabolic Pane lelia 03-24-2024 Albumin [Mass/Vol] 3.7 g/dL Normal 3.5-5.7 [facility] Comment on above: Performed By: #### B MILITARY COMMUNICATIONS SPECIALIST, PTT, CUBLD, PT, CBC, HS TROP, CMP, CK ####[address] Albumin/Globulin [Mass ratio] 1.4 {ratio} Normal [facility] Comment on above: Performed By: #### B MILITARY COMMUNICATIONS SPECIALIST, PTT, CUBLD, PT, CBC, HS TROP, CMP, CK ####[address] ALP [Catalytic activity/Vol] 135 U/L High 34-104 [facility] Comment on above: Performed By: #### B MILITARY COMMUNICATIONS SPECIALIST, PTT, CUBLD, PT, CBC, HS TROP, CMP, CK ####[address] ALT [Catalytic activity/Vol] 27 U/L Normal 7-52 [facility] Comment on above: Performed By: #### B MILITARY COMMUNICATIONS SPECIALIST, PTT, CUBLD, PT, CBC, HS TROP, CMP, CK ####[address] Anion gap [Moles/Vol] 8.3 mmol/L Normal 6.0-15.0 [facility] Comment on above: Performed By: #### B MILITARY COMMUNICATIONS SPECIALIST, PTT, CUBLD, PT, CBC, HS TROP, CMP, CK ####[address] AST [Catalytic activity/Vol] 27 U/L Normal 13-39 [facility] Comment on above: Performed By: #### B MILITARY COMMUNICATIONS SPECIALIST, PTT, CUBLD, PT, CBC, HS TROP, CMP, CK ####[address] Bilirubin [Mass/Vol] 0.5 mg/dL Normal 0.3-1.0 [facility] Comment on above: Performed By: #### B MILITARY COMMUNICATIONS SPECIALIST, PTT, CUBLD, PT, CBC, HS TROP, CMP, CK ####[address] Calcium [Mass/Vol] 8.3 mg/dL Low 8.6-10.3 [facility] Comment on above: Performed By: #### B MILITARY COMMUNICATIONS SPECIALIST, PTT, CUBLD, PT, CBC, HS TROP, CMP, CK ####[address] Chloride [Moles/Vol] 100 mmol/L Normal 98-107 [facility] Comment on above: Performed By: #### B MILITARY COMMUNICATIONS SPECIALIST, PTT, CUBLD, PT, CBC, HS TROP, CMP, CK ####[place] [id number] [place] [id number] [facility] CO2 [Moles/Vol] 37.6 mmol/L High 21.0-31.0 The [facility] Comment on above: Performed By: #### B MILITARY COMMUNICATIONS SPECIALIST, PTT, CUBLD, PT, CBC, HS TROP, CMP, CK ####[place] [address] Creatinine [Mass/Vol] 0.94 mg/dL Normal 0.60-1.20 [facility] Comment on above: Performed By: #### B MILITARY COMMUNICATIONS SPECIALIST, PTT, CUBLD, PT, CBC, HS TROP, CMP, CK ####[place] [address] Creatinine Clr Calc Pharmacy 58.85 Normal [facility] Comment on above: Result Comment: PERF ORMED BY:[address] [place], [place] [phone] MEDICAL DIRECTORDOROTHY MENA M.D. Performed By: #### B MILITARY COMMUNICATIONS SPECIALIST, PTT, CUBLD, PT, CBC, HS TROP, CMP, CK ####[place] [id number] [facility] GFR/1.73 sq M.predicted MDRD (S/P/Bld) [Vol rate/Area] mL/min/{1.73_m2} Normal [facility] Comment on above: Performed By: #### B MILITARY COMMUNICATIONS SPECIALIST, PTT, CUBLD, PT, CBC, HS TROP, CMP, CK ####[place] [id number] [facility] Globulin (S) [Mass/Vol] 2.7 g/dL Normal [facility] Comment on above: Performed By: #### B MILITARY COMMUNICATIONS SPECIALIST, PTT, CUBLD, PT, CBC, HS TROP, CMP, CK ####[place] [id number] [facility] Glucose [Mass/Vol] 100 mg/dL Normal 70-100 [facility] Comment on above: Result Comment: [place] Glucose Reference Range is dependent on time and content of last meal. Glucose of more than 200 mg/dL in a nonstressed, ambulatory subject supports the diagnosis of Diabetes Mellitus. ADA recommended reference range Performed By: #### B MILITARY COMMUNICATIONS SPECIALIST, PTT, CUBLD, PT, CBC, HS TROP, CMP, CK ####[address] Potassium [Moles/Vol] 3.9 mmol/L Normal 3.5-5.1 [facility] Comment on above: Performed By: #### B MILITARY COMMUNICATIONS SPECIALIST, PTT, CUBLD, PT, CBC, HS TROP, CMP, CK ####[address] Protein [Mass/Vol] 6.4 g/dL Normal 6.4-8.9 [facility] Comment on above: Performed By: #### B MILITARY COMMUNICATIONS SPECIALIST, PTT, CUBLD, PT, CBC, HS TROP, CMP, CK ####[address] Sodium [Moles/Vol] 142 mmol/L Normal 136-145 [facility] Comment on above: Performed By: #### B MILITARY COMMUNICATIONS SPECIALIST, PTT, CUBLD, PT, CBC, HS TROP, CMP, CK ####[address] Urea nitrogen [Mass/Vol] 12 mg/dL Normal 7-25 [facility] Comment on above: Performed By: #### B MILITARY COMMUNICATIONS SPECIALIST, PTT, CUBLD, PT, CBC, HS TROP, CMP, CK ####[address] Creatine Kinaseon 03-24-2024 CK [Catalytic activity/Vol] 167 U/L Normal 30-223 [facility] Comment on above: Performed By: #### B MILITARY COMMUNICATIONS SPECIALIST, PTT, CUBLD, PT, CBC, HS TROP, CMP, CK ####[address] Creatine kinase [Enzymatic a ctivity/volume] in Serum or PlasmaOrdered By: Jose Min on 03-24-2024 CK [Catalytic activity/Vol] Creatine kinase [Enzymatic activity/volume] in Serum or Plasma 30-223 [facility] Creatinine [Mass/volume] in Serum or PlasmaOrdered By: Jose Min on 03-24-2024 Creatinine [Mass/Vol] Creatinine [Mass/v olume] in Serum or Plasma 0.60-1.20 [facility] ECG 12 lead ECGon 03-24-2024 ECG 12 lead ECG Normal [facility] Eosinophils Auto (Bld) [#/Vo l]Ordered By: Jose iMn on 03-24-2024 Eosinophils (Bld) [#/Vol] Automated eosinophil count 0.0-0.45 [facility] Eosinophils/100 WBC Auto (Bl d)Ordered By: Jose Min on 03-24-2024 Eosinophils/100 WBC (Bld) Automated eosinophil % . [facility] Erythrocyte distribution wid th Auto (RBC) [Ratio]Ordered By: Jose Min on 03-24-2024 Erythrocyte distribution width (RBC) [Ratio] Erythrocyte distribution width [Ratio] by Automated count 11.9-15.3 [facility] Globulin Calc (S) [Mass/Vol] Ordered By: Jose Min on 03-24-2024 Globulin (S) [Mass/Vol] Serum globulin measurement by calculation (mass/volume) [facility] Glucose [Mass/volume] in Ser um or PlasmaOrdered By: Jose Min on 03-24-2024 Glucose [Mass/Vol] Glucose [Mass/volume ] in Serum or Plasma 70-100 [facility] Hematocrit Auto (Bld) [Volum e fraction]Ordered By: Jose Min on 03-24-2024 Hematocrit (Bld) [Volume fraction] Hematocrit [Volume Fraction] of Blood by Automated count Low 34.0-46.4 [facility] Hemoglobin [Mass/volume] in BloodOrdered By: Jose Min 03-24-2024 Hemoglobin (Bld) [Mass/Vol] Hemoglobin [Mass/volume] in Blood Low 11.8-15.4 [facility] Heparin anti-Xa unfractionat edOrdered By: Jose Min on 03-24-2024 Heparin unfractionated Chromogenic method Qn (PPP) Heparin anti-Xa unfractionated Low 0.30-0.70 [facility] INR in Platelet poor plasma by Coagulation assayOrdered By: Jose Min on 03-24-2024 INR Coag (PPP) [Relative time] INR in Platelet poor plasma by Coagulation assay [facility] Leukocytes [#/volume] correc hugh for nucleated erythrocytes in Blood by Automated counOrdered By: Jose Min on 03-24-2024 WBC corrected for nucl RBC Auto (Bld) [#/Vol] Leukocytes [#/volume] corrected for nucleated erythrocytes in Blood by Automated coun 3.8-11.6 [facility] Lymphocytes Auto (Bld) [#/Vo l]Ordered By: Jose Min on 03-24-2024 Lymphocytes (Bld) [#/Vol] Lymphocytes [#/volume] in Blood by Automated count Low 1.00-4.8 [facility] Lymphocytes/100 WBC Auto (Bl d)Ordered By: Jose Min on 03-24-2024 Lymphocytes/100 WBC (Bld) Lymphocytes/100 leukocytes in Blood by Automated count . [facility] MCH Auto (RBC) [Entitic mass ]Ordered By: Jose Min on 03-24-2024 MCH (RBC) [Entitic mass] MCH [Entitic mass] by Automated count 24.7-34.3 [facility] MCHC Auto (RBC) [Mass/Vol]Or dered By: Jose Min on 03-24-2024 MCHC (RBC) [Mass/Vol] MCHC [Mass/volume] by Automated count 32.0-35.0 [facility] MCV Auto (RBC) [Entitic vol] Ordered By: Jose Min on 03-24-2024 MCV (RBC) [Entitic vol] MCV [Entitic volume] by Automated count 80-100 [facility] Monocyte distribution width [Entitic volume] in Blood by AutomatedOrdered By: Jose Min on 03-24-2024 Monocyte distribution width Auto (Bld) [Entitic vol] Monocyte distribution width [Entitic volume] in Blood by Automated 0.00-20.00 [facility] Monocytes Auto (Bld) [#/Vol] Ordered By: Jose Min on 03-24-2024 Monocytes (Bld) [#/Vol] Automated blood monocyte count 0.0-0.8 [facility] Monocytes/100 WBC Auto (Bld) Ordered By: Jose Min on 03-24-2024 Monocytes/100 WBC (Bld) Automated monocyte % . [facility] Natriuretic peptide B [Mass/ Vol]Ordered By: Jose Min on 03-24-2024 Natriuretic peptide B (Bld) [Mass/Vol] BNP ser/plas High 5-100 [facility] Neutrophils Auto (Bld) [#/Vo l]Ordered By: Jose Min on 03-24-2024 Neutrophils (Bld) [#/Vol] Neutrophils [#/volume] in Blood by Automated count 1.8-7.7 [facility] Neutrophils/100 WBC Auto (Bl d)Ordered By: Jose Min on 03-24-2024 Neutrophils/100 WBC (Bld) Automated neutrophil % . [facility] No Panel InformationOrdered By: Jose Min on 03-24-2024 > 60.0 mL/Min [facility] 58.85 [facility] 7.46 High 7.35-7.45 [facility] 44.6 mm[Hg] 35.0-45.0 [facility] 76.9 mm[Hg] Low 80.0-100.0 [facility] 30.8 mmol/L High 23.0-29.0 [facility] 6.2 mmol/L High -3.0-3.0 [facility] 95.9 % 95.0-100.0 [facility] 7.1 mmol/L 6.6-9.7 [facility] 32.2 mmol/L High 23.0-27.0 [facility] 44 % [facility] Left radial [facility] Nasal cannula [facility] See comment [facility] Nucleated erythrocytes [Pres ence] in Blood by Automated countOrdered By: Jose Min on 03-24-2024 Nucleated RBC Auto Ql (Bld) Nucleated erythrocytes [Presence] in Blood by Automated count 0-0.5 [facility] Partial Thromboplastin Timeo n 03-24-2024 aPTT Coag (Bld) [Time] 28.4 s Normal 25.1-36.5 [facility] Comment on above: Result Comment: A he matocrit value greater than 55% may lead to inaccurate results in coagulation testing. Patients having hematocrit values >55% require a special collection tube for coagulation studies. Please contact the laboratory at [phone] for redraw instructions.PERFORMED BY:[facility]ÁN[place], [place] [phone] MEDICAL DIRECTORDOROTHY MENA M.D. Performed By: #### B MILITARY COMMUNICATIONS SPECIALIST, PTT, CUBLD, PT, CBC, HS TROP, CMP, CK ####[facility] [place] [address] [facility] Platelet mean volume Auto (B ld) [Entitic vol]Ordered By: Jose Min on 03-24-2024 Platelet mean volume (Bld) [Entitic vol] Platelet mean volume [Entitic volume] in Blood by Automated count 6.3-10.7 [facility] Platelets Auto (Bld) [#/Vol] Ordered By: Jose Min on 03-24-2024 Platelets (Bld) [#/Vol] Platelets [#/volume] in Blood by Automated count 150-450 [facility] Potassium [Moles/volume] in Serum or PlasmaOrdered By: Jose Min on 03-24-2024 Potassium [Moles/Vol] Potassium [Moles/v olume] in Serum or Plasma 3.5-5.1 [facility] Protein [Mass/volume] in Ser um or PlasmaOrdered By: Jose Min on 03-24-2024 Protein [Mass/Vol] Protein [Mass/volume ] in Serum or Plasma 6.4-8.9 [facility] Prothrombin Time INRon 03-24 INR Coag (PPP) [Relative time] 1.0 {INR} Normal [facility] Comment on above: Result Comment: INR Therapeutic Range A) Pre- and Peroperative OAT started two weeks before surgery. NOT HIP SURGERY: 1.5 - 2.5 HIP SURGERY: 2 - 3 B) Primary and secondary prevention of venous THROMBOSIS: 2 - 3 C) Active venous thrombosis, pulmonary embolism and prevention of recurrent venous thrombosis: 2 - 3 D) Prevention of arterial thromboembolism including patients with mechanical heart valves: 3 - 4.5 Performed By: #### B MILITARY COMMUNICATIONS SPECIALIST, PTT, CUBLD, PT, CBC, HS TROP, CMP, CK ####[facility] [id number] [place] [address] [facility] PT Coag (PPP) [Time] 11.4 s Normal 9.0-12.9 [facility] Comment on above: Result Comment: A he matocrit value greater than 55% may lead to inaccurate results in coagulation testing. Patients having hematocrit values >55% require a special collection tube for coagulation studies. Please contact the laboratory at [phone] for redraw instructions. Performed By: #### B MILITARY COMMUNICATIONS SPECIALIST, PTT, CUBLD, PT, CBC, HS TROP, CMP, CK ####[facility] [place] [address] [facility] Prothrombin time (PT)Ordered By: Jose Min on 03-24-2024 PT Coag (PPP) [Time] Prothrombin time (PT) 9.0- 12.9 [facility] RBC Auto (Bld) [#/Vol]Ordere d By: Jose Min on 03-24-2024 RBC (Bld) [#/Vol] Erythrocytes [#/volu me] in Blood by Automated count 3.60-5.00 [facility] Respiratory (Upper) Panel, P CRon 03-24-2024 Respiratory (Upper) Panel, PCR Normal [facility] Comment on above: Performed By: #### R PATY PANEL UPP., BIOFIRECOVNOTDE ####[facility] [place] [address] [facility] Respiratory pathogens DNA an d RNA panel - Nasopharynx by MITCHELL with non-probe detectionOrdered By: Jose iMn on 03-24-2024 Respiratory pathogens DNA and RNA panel MITCHELL+non-probe (Nph) Respiratory pathogens DNA and RNA panel - Nasopharynx by MITCHELL with non-probe detection [facility] Serum or plasma albumin/glob ulin mass ratioOrdered By: Jose Min on 03-24-2024 Albumin/Globulin [Mass ratio] Serum or plasma albumin/globulin mass ratio [facility] Serum or plasma anion gap de terminationOrdered By: Jose Min on 03-24-2024 Anion gap [Moles/Vol] Serum or plasma an ion gap determination 6.0-15.0 [facility] Sodium [Moles/volume] in Ser um or PlasmaOrdered By: Jose Min on 03-24-2024 Sodium [Moles/Vol] Sodium [Moles/volume ] in Serum or Plasma 136-145 [facility] Troponin I High Sensitivityo n 03-24-2024 Troponin I High Sensitivity 1245 Off scale high 0-15 [facility] Comment on above: Result Comment: Crit ical Result : Called to and read back by: NIR YOUSIF at: 03/24/2024 16:01:59 by:[id number] The Troponin units of report have been changed to meet the Chest Pain Accreditation requirement, element EC5.M1l2. Troponin units are changed from pg/ml to ng/L. Also, the decimal is removed and results are in whole numbers.PERFORMED BY:[facility] [place], [place] [phone] MEDICAL DIRECTORDOROTHY MENA M.D. Performed By: #### B MILITARY COMMUNICATIONS SPECIALIST, PTT, CUBLD, PT, CBC, HS TROP, CMP, CK ####[facility] [place] [address] [facility] Troponin I.cardiac [Mass/vol ume] in Serum or Plasma by Detection limit <= 0.01 ng/Ordered By: Jose Min on 03-24-2024 Troponin I.cardiac DL <= 0.01 ng/mL [Mass/Vol] Troponin I.cardiac [Mass/volume] in Serum or Plasma by Detection limit <= 0.01 ng/ Critically high 0-15 [facility] Urea nitrogen [Mass/volume] in Serum or PlasmaOrdered By: Jose Min on 03-24-2024 Urea nitrogen [Mass/Vol] Urea nitrogen [Mass/volume] in Serum or Plasma 7-25 [facility] WBC Auto (Bld) [#/Vol]Ordere d By: Jose Min on 03-24-2024 WBC (Bld) [#/Vol] Leukocytes [#/volume ] in Blood by Automated count 3.8-11.6 [facility] X-ray reportOrdered By: Yomi Simon on 03-24-2024 Study report [facility] Work Phone: XR chest 1V portableon 03-24 XR chest 1V portable Normal [facility] aPTT in Platelet poor plasma by Coagulation assayOrdered By: Jose Min on 03-24-2024 aPTT Coag (PPP) [Time] Activated partial thromboplastin time (aPTT) in platelet poor plasma by coagulation a 25.1-36.5 [facility] Ambulatory Visit Summaryon 0 03-22-2024 Ambulatory Visit Summary Ambulatory Visit Summary CONCHIS CHARLES :1955 Visit Date:03/22/2024 Ambulatory Visit Instructions Your Diagnosis Urinary retention Your Care Team Attending Physician - KAELYN ROY PA-C Primary Care Physician - NETO ARAUZ DO This Is Your Medications List albuterol alpha-lipoic acid (Alpha Lipoic Acid) amantadine amlodipine aspirin atorvastatin cyclobenzaprine dextromethorphan-guaifene sin (Mucinex DM) levetiracetam levothyroxine loratadine lorazepam (Ativan) omega-3 polyunsaturated fatty acids (omega-3 polyunsaturated fatty acids ethyl esters 1000 mg Cap) oxcarbazepine pregabalin (Lyrica) ropinirole saccharomyces boulardii lyo umeclidinium-vilanterol (Anoro Ellipta) Procedures Performed Bilateral cataracts, Charcot joint of foot, History of hip surgery, Parathyroidectomy, Partial hysterectomy, Post-surgery back pain. Discharge Vitals Temperature (Oral) 37 ???C Heart Rate (Peripheral) 70 Respiratory Rate 18 Blood Pressure 125/77 Height 163 cm Height 64 in Weight 80 kg Weight 176.37 lb BMI 30.11 Medications What How Much When Instructions Unchanged albuterol 90 Microgram Inhalation Unchanged alpha-lipoic acid (Alpha Lipoic Acid) 100 Milligram By Mouth Every day Unchanged amantadine 100 Milligram By Mouth Every day Unchanged amlodipine 5 Milligram By Mouth Every day Unchanged aspirin 81 Milligram Chewed Unchanged atorvastatin 40 Milligram By Mouth Every day Unchanged cyclobenzaprine 10 Milligram By Mouth Unchanged dextromethorphan-guaifene sin (Mucinex DM) 1 Tablets By Mouth Every 12 hours Unchanged levetiracetam 250 Milligram By Mouth 2 times a day Unchanged levothyroxine 150 Microgram By Mouth Every day Unchanged loratadine 10 Milligram By Mouth Every day Unchanged lorazepam (Ativan) 0.5 Milligram By Mouth 2 times a day Unchanged omega-3 polyunsaturated fatty acids (omega-3 polyunsaturated fatty acids ethyl esters 1000 mg Cap) 1 Capsules By Mouth Unchanged oxcarbazepine 150 Milligram By Mouth 2 times a day Unchanged pregabalin (Lyrica) 200 Milligram By Mouth 3 times a day Unchanged ropinirole 1 Milligram By Mouth Every day Unchanged saccharomyces boulardii lyo 250 Milligram By Mouth 2 times a day Unchanged umeclidinium-vilanterol (Anoro Ellipta) 1 Inhalation Inhalation Allergies penicillin (Unknown) sulfonamides (Unknown) Problems Ongoing - Any problem that you are currently receiving treatment for. Charcot joint of foot Chronic hypoxic respiratory failure COPD mixed type Diabetes Hypercalcemia Hyperlipidemia Hypothyroid Neuropathy Rupture Achilles tendon Patient Survey You may receive a survey via text or e-mail asking about your office visit. Please share your experience with us by completing your survey. We appreciate your feedback and thank you for choosing us for your care. Normal [facility] Urology Office/Clinic Noteon 03-22-2024 Urology Office/Clinic Note Urology Office/Clinic Note Chief Complaint urinary retention HPI Staff 68yr old female pt here for hospital f/u for urinary retention. Hx bladder sling by PRW 'many' years ago. [facility] 02/29/24-03/04/24 for E Coli UTI w acute metabolic encephalopathy. [facility] 03/15/24-03/18/24 with c/o inability to pass urine for 24hrs. Hanson catheter was placed due to high PVR 800mL of urine. CT wo con 03/15/24 - kidneys/ureters/bladder WNL. Dc'd to [facility] for rehab. Was in [facility] last summer too. Lived at home w in between. Has a lot of family around for help. Not sure how long she will be a [facility] this time, thinks at least a month. Pt would like hanson removed MATTHIAS. No hx patricia retention. But says for the past 1-2 mos she has noticed it taking her a lot longer to empty bladder. Will lean fwd/bend to make sure it's empty. Denies issues w baseline frequency, urgency, or leakage. Review of Systems PHQ Score Initial Depression Screen Score: 0 SCORE no fever, chills. no rash/lesions. no chest pain. no abdominal pain, nausea, vomiting. no gross hematuria. Physical Exam Vitals & Measurements T: 37 ???C(Oral) HR: 70(Peripheral) RR: 18 BP: 125/77 HT: 64 in HT: 163 cm WT: 80 kg WT: 176.37 lb BMI: 30.11 General: nontoxic, NAD Mouth: moist mucosa Lungs: on portable O2 but nonlabored breathing Cardio: regular rate, good distal perfusion Abdomen: nondistended, no suprapubic distention or tenderness, no CVA tenderness Neurologic: Grossly normal Skin: No rashes or suspicious lesions Assessment/Plan 1. Urinary retention (R33.9: Retention of urine, unspecified) Dc hanson at [facility] today. Prompt to void q2-3 hrs while awake. Document output. Perform PVR. If >300ml, perform CIC to empty bladder (pt prefers this to re-inserting the Hanson). Results for me review in 3 days. If no retention, can f/u in a few mos. Discussed importance of timed voiding during day and continuing double void maneuvers. If retention persists, will need to consider Cysto/Uros. Spoke about this today briefly but not in great detail. Would want to bring her back to go over details before scheduling. Ordered: Body Mass Index (BMI) documented 3008F Current tobacco non-user 1036F Depression Screening Negative 3352F E&M of New Patient Moderate 45-59 Min 87845 Influenza immunization status assessed 1030F Medication list documented in medical record 1159F Most recent diastolic blood pressure <80 mm Hg 3078F Patient screen for fall risk: no falls in last year or 1 fall with no injury in last year 1101F Review of all meds by a prescribing practitioner or clinical pharmacist documented in EHR 1160F Systolic BP <130 mm Hg (Most Recent) 3074F Follow-up With When Contact Information MANUELA SESAY, KAELYN Cantrell, URL [address] [place] [address] Business (1) Additional Instructions: pending results of imaging/testing, will call with next steps Patient Education Acute Urinary Retention, Female Problem List/Past Medical History Ongoing Charcot joint of foot Chronic hypoxic respiratory failure COPD mixed type Diabetes Hypercalcemia Hyperlipidemia Hypothyroid Neuropathy Rupture Achilles tendon Historical No qualifying data Procedure/Surgical History Bilateral cataracts, Charcot joint of foot, History of hip surgery, Parathyroidectomy, Partial hysterectomy, Post-surgery back pain. Medications albuterol, 90 mcg, Inhalation Alpha Lipoic Acid, 100 mg, Oral, Daily amantadine, 100 mg, Oral, Daily amlodipine, 5 mg, Oral, Daily Anoro Ellipta, 1 inh, Inhalation aspirin, 81 mg, Chewed Ativan, 0.5 mg, Oral, BID atorvastatin, 40 mg, Oral, Daily cyclobenzaprine, 10 mg, Oral levetiracetam, 250 mg, Oral, BID levothyroxine, 150 mcg, Oral, Daily loratadine, 10 mg, Oral, Daily Lyrica, 200 mg, Oral, TID Mucinex DM, 1 tab(s), Oral, q12hr omega-3 polyunsaturated fatty acids ethyl esters 1000 mg Cap, 1000 mg= 1 cap(s), Oral oxcarbazepine, 150 mg, Oral, BID ropinirole, 1 mg, Oral, Daily saccharomyces boulardii lyo, 250 mg, Oral, BID Allergies penicillin (Unknown) sulfonamides (Unknown) Social History Tobacco Former smoker, quit more than 30 days ago Tobacco Use:. Never Smokeless Tobacco Use:. Cigarettes, 03/22/2024 Family History Cancer - unknown origin: Mother and Grandparent. Diabetes mellitus type 2: Grandparent. Glaucoma: Negative: Grandparent. Heart attack: Grandparent. Heart disease: Grandparent. Liver disease: Grandparent. Immunizations Vaccine Date Status Comments influenza virus vaccine, inactivated 12/30/2020 Recorded SARS-CoV-2 (COVID-19) mRNA-1273 vaccine 07/11/2020 Recorded 2024-03-22: TPV65 SARS-CoV-2 (COVID-19) mRNA-1273 vaccine 06/13/2020 Recorded 2024-03-22: TPV65 influenza virus vaccine, inactivated 01/07/2020 Recorded influenza virus vaccine, inactivated 12/02/2015 Recorded influenza virus vaccine, inactivated 12/03/2014 Recorded pneumococcal 23-grecia (more content not included)... Normal [facility] Comment on above: Result Comment: Elec tronically Signed By: KAELYN ROY PA-C\Date and Time Signed: 03/22/24 14:16 EST Glucose Glucometer (BldC) [M ass/Vol]Ordered By: Jus Perla on 03-17-2024 Glucose [Mass/Vol] Capillary blood gluc ose measurement by glucometer (mass/volume) [facility] Glucose Poct Glucometerson 0 03-17-2024 Glucose [Mass/Vol] 118 mg/dL Normal [facility] Comment on above: Result Comment: [place] Glucose Reference Range is dependent on time and content of last meal. Glucose of more than 200 mg/dL in a nonstressed, ambulatory subject supports the diagnosis of Diabetes Mellitus.PERFORMED BY:[address] [address] [place], [place] [phone] MEDICAL DIRECTORDOROTHY MENA M.D. Performed By: #### G DOMINIC ####Point of Care testing, Basic Metabolic Panelon 03-07 Anion gap [Moles/Vol] Not performed Normal 6.0-15.0 [facility] Comment on above: Performed By: #### C BC, BMP ####[address] [address] [facility] Calcium [Mass/Vol] 8.2 mg/dL Low 8.6-10.3 [facility] Comment on above: Performed By: #### C BC, BMP ####[address] [address] [facility] Chloride [Moles/Vol] 96 mmol/L Low 98-107 [facility] Comment on above: Performed By: #### C BC, BMP ####[address] [address] [facility] CO2 [Moles/Vol] 37.3 mmol/L High 21.0-31.0 [facility] Comment on above: Performed By: #### C BC, BMP ####[address] [address] [facility] Creatinine [Mass/Vol] 1.08 mg/dL Normal 0.60-1.20 [facility] Comment on above: Performed By: #### C BC, BMP ####[address] [address] [facility] Creatinine Clr Calc Pharmacy 49.60 Normal [facility] Comment on above: Result Comment: PERF ORMED BY:[address] [place], [place] [phone] MEDICAL DIRECTORDOROTHY MENA M.D. Performed By: #### C BC, BMP ####[address] [address] [facility] Estimated GFR 55.259 mL/Min Normal [facility] Comment on above: Performed By: #### C BC, BMP ####[place] [id number] [facility] Glucose [Mass/Vol] 105 mg/dL High 70-100 [facility] Comment on above: Result Comment: [place] Glucose Reference Range is dependent on time and content of last meal. Glucose of more than 200 mg/dL in a nonstressed, ambulatory subject supports the diagnosis of Diabetes Mellitus. ADA recommended reference range Performed By: #### C BC, BMP ####[place] [id number] [facility] Potassium Normal 3.5-5.1 [facility] Comment on above: Result Comment: Spec imen hemolyzed, redraw requested Performed By: #### C BC, BMP ####[place] [id number] [facility] Sodium [Moles/Vol] 140 mmol/L Normal 136-145 [facility] Comment on above: Performed By: #### C BC, BMP ####[place] [id number] [facility] Urea nitrogen [Mass/Vol] 26 mg/dL High 7-25 [facility] Comment on above: Performed By: #### C BC, BMP ####[address] [address] [facility] Basophils Auto (Bld) [#/Vol] Ordered By: Clarence Matias on 03-16-2024 Basophils (Bld) [#/Vol] Automated basophil count 0.0-0.2 [facility] Basophils/100 WBC Auto (Bld) Ordered By: Clarence Matias on 03-16-2024 Basophils/100 WBC (Bld) Automated basophil % . [facility] Calcium [Mass/volume] in Ser um or PlasmaOrdered By: Clarence Matias on 03-16-2024 Calcium [Mass/Vol] Calcium [Mass/volume ] in Serum or Plasma Low 8.6-10.3 [facility] Carbon dioxide, total [Moles /volume] in Serum or PlasmaOrdered By: Clarence Matias on 03-16-2024 CO2 [Moles/Vol] Carbon dioxide, tota l [Moles/volume] in Serum or Plasma High 21.0-31.0 [facility] Chloride [Moles/volume] in S cait or PlasmaOrdered By: Clarence Matias on 03-16-2024 Chloride [Moles/Vol] Chloride [Moles/vol ume] in Serum or Plasma Low 98-107 [facility] Complete Blood Count Auto Di ffon 03-16-2024 Basophils (Bld) [#/Vol] 0.1 10*3/uL Normal 0.0-0.2 [facility] Comment on above: Result Comment: PERF ORMED BY:[address] [place], [place] [phone] MEDICAL DIRECTORDOROTHY MENA M.D. Performed By: #### C LEEANN, BMP ####[address] [place] [address] [facility] Basophils/100 WBC (Bld) 0.9 % Normal . [facility] Comment on above: Performed By: #### C BC, BMP ####[facility] [place] [address] [facility] Eosinophils (Bld) [#/Vol] 0.2 10*3/uL Normal 0.0-0.45 [facility] Comment on above: Performed By: #### C BC, BMP ####[place] [id number] [facility] Eosinophils/100 WBC (Bld) 2.4 % Normal . [facility] Comment on above: Performed By: #### C BC, BMP ####[place] [id number] [facility] Erythrocyte distribution width (RBC) [Ratio] 15.2 % Normal 11.9-15.3 [facility] Comment on above: Performed By: #### C BC, BMP ####[place] [id number] [facility] Hematocrit (Bld) [Volume fraction] 31.3 % Low 34.0-46.4 [facility] Comment on above: Performed By: #### C BC, BMP ####[place] [phone] [facility] Hemoglobin (Bld) [Mass/Vol] 10.4 g/dL Low 11.8-15.4 [facility] Comment on above: Performed By: #### C BC, BMP ####[address] Lymphocytes (Bld) [#/Vol] 1.3 10*3/uL Normal 1.00-4.8 [facility] Comment on above: Performed By: #### C BC, BMP ####[place] [phone] [facility] Lymphocytes/100 WBC (Bld) 17.2 % Normal . [facility] Comment on above: Performed By: #### C BC, BMP ####[place] [phone] [facility] MCH (RBC) [Entitic mass] 28.6 pg Normal 24.7-34.3 [facility] Comment on above: Performed By: #### C BC, BMP ####[place] [phone] [facility] MCV (RBC) [Entitic vol] 85.9 fL Normal 80-100 [facility] Comment on above: Performed By: #### C BC, BMP ####[address] [address] [facility] Mean Corpuscular HGB Conc 33.3 g/dL Normal 32.0-35.0 [facility] Comment on above: Performed By: #### C BC, BMP ####[address] [address] [facility] Monocytes (Bld) [#/Vol] 0.5 10*3/uL Normal 0.0-0.8 [facility] Comment on above: Performed By: #### C BC, BMP ####[address] [address] [facility] Monocytes/100 WBC (Bld) 6.5 % Normal . [facility] Comment on above: Performed By: #### C BC, BMP ####[address] [address] [facility] Neutrophils (Bld) [#/Vol] 5.6 10*3/uL Normal 1.8-7.7 [facility] Comment on above: Performed By: #### C BC, BMP ####[address] [address] [facility] Neutrophils/100 WBC (Bld) 73.0 % Normal . [facility] Comment on above: Performed By: #### C BC, BMP ####[address] [address] [facility] NRBC% 0.0 /100{WBC} Normal 0-0.5 [facility] Comment on above: Performed By: #### C BC, BMP ####[address] [address] [facility] Platelet mean volume (Bld) [Entitic vol] 7.7 fL Normal 6.3-10.7 [facility] Comment on above: Performed By: #### C BC, BMP ####[address] [address] [facility] Platelets (Bld) [#/Vol] 177 10*3/uL Normal 150-450 [facility] Comment on above: Performed By: #### C BC, BMP ####[facility] [id number] [place] [address] [facility] RBC (Bld) [#/Vol] 3.64 10*6/uL Normal 3.60-5.00 [facility] Comment on above: Performed By: #### C BC, BMP ####[facility] [id number] [place] [address] [facility] WBC (Bld) [#/Vol] 7.7 10*3/uL Normal 3.8-11.6 [facility] Comment on above: Performed By: #### C BC, BMP ####[facility] [place] [address] [facility] Creatinine [Mass/volume] in Serum or PlasmaOrdered By: Clarence Matias on 03-16-2024 Creatinine [Mass/Vol] Creatinine [Mass/v olume] in Serum or Plasma 0.60-1.20 [facility] Eosinophils Auto (Bld) [#/Vo l]Ordered By: Clarence Matias on 03-16-2024 Eosinophils (Bld) [#/Vol] Automated eosinophil count 0.0-0.45 [facility] Eosinophils/100 WBC Auto (Bl d)Ordered By: Clarence Matias on 03-16-2024 Eosinophils/100 WBC (Bld) Automated eosinophil % . [facility] Erythrocyte distribution wid th Auto (RBC) [Ratio]Ordered By: Clarence Matias on 03-16-2024 Erythrocyte distribution width (RBC) [Ratio] Erythrocyte distribution width [Ratio] by Automated count 11.9-15.3 [facility] Glucose [Mass/volume] in Ser um or PlasmaOrdered By: Clarence Matias on 03-16-2024 Glucose [Mass/Vol] Glucose [Mass/volume ] in Serum or Plasma High 70-100 [facility] Comment on above: ADA recommended refe rence rangeRandom Glucose Reference Range is dependent on time and content of last meal. Glucose of more than 200 mg/dL in a nonstressed, ambulatory subject supports the diagnosis of Diabetes Mellitus. Hematocrit Auto (Bld) [Volum e fraction]Ordered By: Clarence Matias on 03-16-2024 Hematocrit (Bld) [Volume fraction] Hematocrit [Volume Fraction] of Blood by Automated count Low 34.0-46.4 [facility] Hemoglobin [Mass/volume] in BloodOrdered By: Clarence Matias on 03-16-2024 Hemoglobin (Bld) [Mass/Vol] Hemoglobin [Mass/volume] in Blood Low 11.8-15.4 [facility] Leukocytes [#/volume] correc hugh for nucleated erythrocytes in Blood by Automated counOrdered By: Clarence Matias on 03-16-2024 WBC corrected for nucl RBC Auto (Bld) [#/Vol] Leukocytes [#/volume] corrected for nucleated erythrocytes in Blood by Automated coun 3.8-11.6 [facility] Lymphocytes Auto (Bld) [#/Vo l]Ordered By: Clarence Matias on 03-16-2024 Lymphocytes (Bld) [#/Vol] Lymphocytes [#/volume] in Blood by Automated count 1.00-4.8 [facility] Lymphocytes/100 WBC Auto (Bl d)Ordered By: Clarence Matias on 03-16-2024 Lymphocytes/100 WBC (Bld) Lymphocytes/100 leukocytes in Blood by Automated count . [facility] MCH Auto (RBC) [Entitic mass ]Ordered By: Clarence Matias on 03-16-2024 MCH (RBC) [Entitic mass] MCH [Entitic mass] by Automated count 24.7-34.3 [facility] MCHC Auto (RBC) [Mass/Vol]Or dered By: Clarence Matias on 03-16-2024 MCHC (RBC) [Mass/Vol] MCHC [Mass/volume] by Automated count 32.0-35.0 [facility] MCV Auto (RBC) [Entitic vol] Ordered By: Clarence Matias on 03-16-2024 MCV (RBC) [Entitic vol] MCV [Entitic volume] by Automated count 80-100 [facility] Monocytes Auto (Bld) [#/Vol] Ordered By: Clarence Matias on 03-16-2024 Monocytes (Bld) [#/Vol] Automated blood monocyte count 0.0-0.8 [facility] Monocytes/100 WBC Auto (Bld) Ordered By: Clarence Matias on 03-16-2024 Monocytes/100 WBC (Bld) Automated monocyte % . [facility] Neutrophils Auto (Bld) [#/Vo l]Ordered By: Clarence Matias on 03-16-2024 Neutrophils (Bld) [#/Vol] Neutrophils [#/volume] in Blood by Automated count 1.8-7.7 [facility] Neutrophils/100 WBC Auto (Bl d)Ordered By: Clarence Matias on 03-16-2024 Neutrophils/100 WBC (Bld) Automated neutrophil % . [facility] No Panel InformationOrdered By: Clarence Matias on 03-16-2024 Estimated GFR (CKD-EPI) 55.259 mL/Min [facility] Creatinine Clearance (Chem 49.60 [facility] 55.259 mL/Min [facility] 49.60 [facility] Nucleated erythrocytes [Pres ence] in Blood by Automated countOrdered By: Clarence Matias on 03-16-2024 Nucleated RBC Auto Ql (Bld) Nucleated erythrocytes [Presence] in Blood by Automated count 0-0.5 [facility] Platelet mean volume Auto (B ld) [Entitic vol]Ordered By: Clarence Matias on 03-16-2024 Platelet mean volume (Bld) [Entitic vol] Platelet mean volume [Entitic volume] in Blood by Automated count 6.3-10.7 [facility] Platelets Auto (Bld) [#/Vol] Ordered By: Clarence Matias on 03-16-2024 Platelets (Bld) [#/Vol] Platelets [#/volume] in Blood by Automated count 150-450 [facility] Potassium [Moles/volume] in Serum or PlasmaOrdered By: Neto Arauz on 03-16-2024 Potassium [Moles/Vol] Potassium [Moles/v olume] in Serum or Plasma 3.5-5.1 [facility] Comment on above: Hemolysis is present at a level that could interfere with the result.Contact lab if redraw is required RBC Auto (Bld) [#/Vol]Ordere d By: Clarence Matias on 03-16-2024 RBC (Bld) [#/Vol] Erythrocytes [#/volu me] in Blood by Automated count 3.60-5.00 [facility] Redraw Potassiumon Potassium [Moles/Vol] 4.1 mmol/L Normal 3.5-5.1 [facility] Comment on above: Result Comment: Hemo lysis is present at a level that could interfere with the result. Contact lab if redraw is requiredPERFORMED BY:[facility] [place], [place] [phone] MEDICAL DIRECTORDOROTHY MENA M.D. Performed By: #### R MEGHAN Cheek ####[facility] [place] [address] [facility] Serum or plasma anion gap de terminationOrdered By: Clarence Matias on 03-16-2024 Anion gap [Moles/Vol] Serum or plasma an ion gap determination [facility] Comment on above: Test not performed Sodium [Moles/volume] in Ser um or PlasmaOrdered By: Clarence Matias on 03-16-2024 Sodium [Moles/Vol] Sodium [Moles/volume ] in Serum or Plasma 136-145 [facility] Urea nitrogen [Mass/volume] in Serum or PlasmaOrdered By: Clarence Matias on 03-16-2024 Urea nitrogen [Mass/Vol] Urea nitrogen [Mass/volume] in Serum or Plasma High 7-25 [facility] WBC Auto (Bld) [#/Vol]Ordere d By: Clarence Matias on 03-16-2024 WBC (Bld) [#/Vol] Leukocytes [#/volume ] in Blood by Automated count 3.8-11.6 [facility] Alanine aminotransferase [En zymatic activity/volume] in Serum or PlasmaOrdered By: Jm Almaguer on 03-15-2024 ALT [Catalytic activity/Vol] Alanine aminotransferase [Enzymatic activity/volume] in Serum or Plasma 7-52 [facility] Albumin [Mass/volume] in Ser um or Plasma by Bromocresol green (BCG) dye binding methoOrdered By: Jm Almaguer on 03-15-2024 Albumin BCG dye [Mass/Vol] Albumin [Mass/volume] in Serum or Plasma by Bromocresol green (BCG) dye binding metho 3.5-5.7 [facility] Alkaline phosphatase [Enzyma tic activity/volume] in Serum or PlasmaOrdered By: Jm Almaguer on 03-15-2024 ALP [Catalytic activity/Vol] Alkaline phosphatase [Enzymatic activity/volume] in Serum or Plasma High 34-104 [facility] Appearance of UrineOrdered B y: Jm Almaguer on 03-15-2024 Appearance (U) Urine appearance Clear [facility] Aspartate aminotransferase [ Enzymatic activity/volume] in Serum or PlasmaOrdered By: Jm Almaguer on 03-15-2024 AST [Catalytic activity/Vol] Aspartate aminotransferase [Enzymatic activity/volume] in Serum or Plasma 13-39 [facility] Bacteria [Presence] in Urine by AutomatedOrdered By: Jm Almaguer on 03-15-2024 Bacteria Auto Ql (U) Bacteria [Presence] in Urine by Automated None Seen [facility] Basophils Auto (Bld) [#/Vol] Ordered By: Jm Almaguer on 03-15-2024 Basophils (Bld) [#/Vol] Automated basophil count 0.0-0.2 [facility] Basophils/100 WBC Auto (Bld) Ordered By: Jm Almaguer on 03-15-2024 Basophils/100 WBC (Bld) Automated basophil % . [facility] Bilirubin Test strip Ql (U)O rdered By: Jm Almaguer on 03-15-2024 Bilirubin Ql (U) Bilirubin.total [Presence] in Urine by Test strip Negative [facility] Bilirubin.total [Mass/volume ] in Serum or PlasmaOrdered By: Jm Almaguer on 03-15-2024 Bilirubin [Mass/Vol] Bilirubin.total [Mass/volume] in Serum or Plasma 0.3-1.[address] [facility] [address] abdomen pelvis wo conon 0 03-15-2024 CT abdomen pelvis wo con Normal [facility] Calcium [Mass/volume] in Ser um or PlasmaOrdered By: Jm Almaguer on 03-15-2024 Calcium [Mass/Vol] Calcium [Mass/volume ] in Serum or Plasma Low 8.6-10.3 [facility] Carbon dioxide, total [Moles /volume] in Serum or PlasmaOrdered By: Jm Almaguer on 03-15-2024 CO2 [Moles/Vol] Carbon dioxide, tota l [Moles/volume] in Serum or Plasma High 21.0-31.0 [facility] Chloride [Moles/volume] in S cait or PlasmaOrdered By: Jm Almaguer on 03-15-2024 Chloride [Moles/Vol] Chloride [Moles/vol ume] in Serum or Plasma Low 98-107 [facility] Color Auto (U)Ordered By: Matt Almaguer on 03-15-2024 Color (U) Color of Urine by Auto [facility] Blood Count Auto Di ffon 03-15-2024 Basophils (Bld) [#/Vol] 0.1 10*3/uL Normal 0.0-0.2 [facility] Comment on above: Result Comment: PERF ORMED BY:[address] [place], [place] [phone] MEDICAL DIRECTORDOROTHY MENA M.D. Performed By: #### C BC ####[address] Basophils/100 WBC (Bld) 0.6 % Normal . [facility] Comment on above: Performed By: #### C BC ####[address] Eosinophils (Bld) [#/Vol] 0.2 10*3/uL Normal 0.0-0.45 [facility] Comment on above: Performed By: #### C BC ####[address] Eosinophils/100 WBC (Bld) 1.8 % Normal . [facility] Comment on above: Performed By: #### C BC ####[address] [place] [address] [place] Erythrocyte distribution width (RBC) [Ratio] 15.1 % Normal 11.9-15.3 [facility] Comment on above: Performed By: #### C BC ####[address] Hematocrit (Bld) [Volume fraction] 35.0 % Normal 34.0-46.4 [facility] Comment on above: Performed By: #### C BC ####[address] Hemoglobin (Bld) [Mass/Vol] 11.5 g/dL Low 11.8-15.4 [facility] Comment on above: Performed By: #### C BC ####[address] Lymphocytes (Bld) [#/Vol] 1.3 10*3/uL Normal 1.00-4.8 [facility] Comment on above: Performed By: #### C BC ####[address] Lymphocytes/100 WBC (Bld) 13.6 % Normal . [facility] Comment on above: Performed By: #### C BC ####[address] MCH (RBC) [Entitic mass] 28.3 pg Normal 24.7-34.3 [facility] Comment on above: Performed By: #### C BC ####[address] MCV (RBC) [Entitic vol] 86.4 fL Normal 80-100 [facility] Comment on above: Performed By: #### C BC ####[address] Mean Corpuscular HGB Conc 32.8 g/dL Normal 32.0-35.0 [facility] Comment on above: Performed By: #### C BC ####[address] Monocytes (Bld) [#/Vol] 0.5 10*3/uL Normal 0.0-0.8 [facility] Comment on above: Performed By: #### C BC ####[address] Monocytes/100 WBC (Bld) 18.64 % Normal 0.00-20.00 [facility] Comment on above: Performed By: #### C BC ####[address] Monocytes/100 WBC (Bld) 5.2 % Normal . [facility] Comment on above: Performed By: #### C BC ####[address] Neutrophils (Bld) [#/Vol] 7.8 10*3/uL High 1.8-7.7 [facility] Comment on above: Performed By: #### C BC ####[address] Neutrophils/100 WBC (Bld) 78.8 % Normal . [facility] Comment on above: Performed By: #### C BC ####[address] NRBC% 0.0 /100{WBC} Normal 0-0.5 [facility] Comment on above: Performed By: #### C BC ####[address] Platelet mean volume (Bld) [Entitic vol] 7.6 fL Normal 6.3-10.7 [facility] Comment on above: Performed By: #### C BC ####[address] Platelets (Bld) [#/Vol] 199 10*3/uL Normal 150-450 [facility] Comment on above: Performed By: #### C BC ####[address] RBC (Bld) [#/Vol] 4.05 10*6/uL Normal 3.60-5.00 [facility] Comment on above: Performed By: #### C BC ####[address] WBC (Bld) [#/Vol] 9.9 10*3/uL Normal 3.8-11.6 [facility] Comment on above: Performed By: #### C BC ####[address] Comprehensive Metabolic Pane lelia 03-15-2024 Albumin [Mass/Vol] 3.9 g/dL Normal 3.5-5.7 [facility] Comment on above: Performed By: #### L IPASE, CMP ####[address] Albumin/Globulin [Mass ratio] 1.6 {ratio} Normal [facility] Comment on above: Performed By: #### L IPASE, CMP ####[address] ALP [Catalytic activity/Vol] 133 U/L High 34-104 [facility] Comment on above: Performed By: #### L IPASE, CMP ####[address] ALT [Catalytic activity/Vol] 43 U/L Normal 7-52 [facility] Comment on above: Performed By: #### L IPASE, CMP ####[address] Anion gap [Moles/Vol] 9.3 mmol/L Normal 6.0-15.0 [facility] Comment on above: Performed By: #### L IPASE, CMP ####[address] AST [Catalytic activity/Vol] 27 U/L Normal 13-39 [facility] Comment on above: Performed By: #### L IPASE, CMP ####[address] Bilirubin [Mass/Vol] 0.4 mg/dL Normal 0.3-1.0 [facility] Comment on above: Performed By: #### L IPASE, CMP ####[address] Calcium [Mass/Vol] 8.2 mg/dL Low 8.6-10.3 [facility] Comment on above: Performed By: #### L IPASE, CMP ####[address] Chloride [Moles/Vol] 97 mmol/L Low 98-107 [facility] Comment on above: Performed By: #### L IPASE, CMP ####[place] [id number] [facility] CO2 [Moles/Vol] 37.4 mmol/L High 21.0-31.0 [facility] Comment on above: Performed By: #### L IPASE, CMP ####[address] Creatinine [Mass/Vol] 1.34 mg/dL High 0.60-1.20 [facility] Comment on above: Performed By: #### L IPASE, CMP ####[address] Creatinine Clr Calc Pharmacy 39.26 Normal [facility] Group Comment on above: Performed By: #### L IPASE, CMP ####[place] [id number] [facility] Estimated GFR 42.657 mL/Min Normal [facility] Comment on above: Performed By: #### L IPASE, CMP ####[place] [id number] [facility] Globulin (S) [Mass/Vol] 2.4 g/dL Normal [facility] Comment on above: Performed By: #### L IPASE, CMP ####[place] [id number] [facility] Glucose [Mass/Vol] 92 mg/dL Normal 70-100 [facility] Comment on above: Result Comment: [place] Glucose Reference Range is dependent on time and content of last meal. Glucose of more than 200 mg/dL in a nonstressed, ambulatory subject supports the diagnosis of Diabetes Mellitus. ADA recommended reference range Performed By: #### L IPASE, CMP ####[place] [id number] Potassium [Moles/Vol] 3.7 mmol/L Normal 3.5-5.1 [facility] Comment on above: Performed By: #### L IPASE, CMP ####[address] Protein [Mass/Vol] 6.3 g/dL Low 6.4-8.9 [facility] Comment on above: Performed By: #### L IPASE, CMP ####[address] Sodium [Moles/Vol] 140 mmol/L Normal 136-145 [facility] Comment on above: Performed By: #### L IPASE, CMP ####[address] Urea nitrogen [Mass/Vol] 30 mg/dL High 7-25 [facility] Comment on above: Performed By: #### L IPASE, CMP ####[address] Creatinine [Mass/volume] in Serum or PlasmaOrdered By: Jm Almaguer on 03-15-2024 Creatinine [Mass/Vol] Creatinine [Mass/v olume] in Serum or Plasma High 0.60-1.20 [facility] Dipstick and Microscopicon 0 03-15-2024 Appearance (U) Clear Normal Clear The [facility] Comment on above: Order Comment: Name Collection Type:: Clean-Voided Midstream Performed By: #### A DDONUAPLUS ####[address] Bacteria,Urine Rare Normal None Seen [facility] Comment on above: Order Comment: Name Collection Type:: Clean-Voided Midstream Performed By: #### A DDONUAPLUS ####[address] [address] [facility] Bilirubin,Urine Negative Normal Negative [facility] Comment on above: Order Comment: Name Collection Type:: Clean-Voided Midstream Performed By: #### A DDONUAPLUS ####[address] [address] [facility] Color (U) Light-Yellow Normal Yellow The [facility] Comment on above: Order Comment: Name Collection Type:: Clean-Voided Midstream Performed By: #### A DDONUAPLUS ####[address] [address] [facility] Glucose Ql (U) Normal Normal Normal [facility] Comment on above: Order Comment: Name Collection Type:: Clean-Voided Midstream Performed By: #### A DDONUAPLUS ####[address] [address] [facility] Hyaline Casts,Urine 0 [LPF] Normal 0-8 [facility] Comment on above: Order Comment: Name Collection Type:: Clean-Voided Midstream Performed By: #### A DDONUAPLUS ####[address] [address] [facility] Ketones Ql (U) Negative Normal Negative [facility] Comment on above: Order Comment: Name Collection Type:: Clean-Voided Midstream Performed By: #### A DDONUAPLUS ####[address] [address] [facility] Leukocyte esterase Test strip Ql (U) 1+ High Negative [facility] Comment on above: Order Comment: Name Collection Type:: Clean-Voided Midstream Performed By: #### A DDONUAPLUS ####[address] [address] [facility] Mucus,Urine Rare Normal [facility] Comment on above: Order Comment: Name Collection Type:: Clean-Voided Midstream Result Comment: PERF ORMED BY:[address] [place], [place] [id number] MEDICAL DIRECTORDOROTHY MENA M.D. Performed By: #### A DDONUAPLUS ####[address] [address] [facility] Nitrite,Urine Negative Normal Negative The [facility] Comment on above: Order Comment: Name Collection Type:: Clean-Voided Midstream Performed By: #### A DDONUAPLUS ####[address] [address] [facility] Occult Blood,Urine Negative Normal Negative [facility] Comment on above: Order Comment: Name Collection Type:: Clean-Voided Midstream Result Comment: PERF ORMED BY:[address] [place], [place] [id number] MEDICAL DIRECTORDOROTHY MENA M.D. Performed By: #### A DDONUAPLUS ####[address] [address] [facility] pH (U) 5.5 [pH] Normal 5.0-9.0 [facility] Comment on above: Order Comment: Name Collection Type:: Clean-Voided Midstream Performed By: #### A DDONUAPLUS ####[address] [address] [facility] Protein,Urine Negative Normal Negative [facility] Comment on above: Order Comment: Name Collection Type:: Clean-Voided Midstream Performed By: #### A DDONUAPLUS ####[address] [address] [facility] RBC,Urine 1 [HPF] Normal 0-4 [facility] Comment on above: Order Comment: Name Collection Type:: Clean-Voided Midstream Performed By: #### A DDONUAPLUS ####[address] [address] [facility] Specificy [place],Urine 1.012 Normal 1.001-1.03 0 [facility] Comment on above: Order Comment: Name Collection Type:: Clean-Voided Midstream Performed By: #### A DDONUAPLUS ####[address] [place] [address] Squamous Epithelial Cell,Urine 1 [HPF] Normal 0-2 [facility] Comment on above: Order Comment: Name Collection Type:: Clean-Voided Midstream Performed By: #### A DDONUAPLUS ####[place] [address] Urobilinogen,Urine Normal Normal Normal [facility] Comment on above: Order Comment: Name Collection Type:: Clean-Voided Midstream Performed By: #### A DDONUAPLUS ####[place] [address] WBC CLUMP, Urine Occasional High None Seen [facility] Comment on above: Order Comment: Name Collection Type:: Clean-Voided Midstream Performed By: #### A DDONUAPLUS ####[place] [address] WBC,Urine 3 [HPF] Normal 0-4 [facility] Comment on above: Order Comment: Name Collection Type:: Clean-Voided Midstream Performed By: #### A DDONUAPLUS ####[place] [id number] [facility] ECG 12 lead ECGon 03-15-2024 ECG 12 lead ECG Normal [facility] Eosinophils Auto (Bld) [#/Vo l]Ordered By: Jm Almaguer on 03-15-2024 Eosinophils (Bld) [#/Vol] Automated eosinophil count 0.0-0.45 [facility] Eosinophils/100 WBC Auto (Bl d)Ordered By: Jm Almaguer on 03-15-2024 Eosinophils/100 WBC (Bld) Automated eosinophil % . [facility] Epithelial cells.squamous [# /area] in Urine sediment by Automated countOrdered By: Jm Almaguer on 03-15-2024 Epithelial cells.squamous Auto (Urine sed) [#/Area] Epithelial cells.squamous [#/area] in Urine sediment by Automated count 0-2 [facility] Erythrocyte distribution wid th Auto (RBC) [Ratio]Ordered By: Jm Almaguer on 03-15-2024 Erythrocyte distribution width (RBC) [Ratio] Erythrocyte distribution width [Ratio] by Automated count 11.9-15.3 [facility] Erythrocytes [#/area] in Uri ne sediment by Automated countOrdered By: Jm Almaguer on 03-15-2024 RBC Auto (Urine sed) [#/Area] Erythrocytes [#/area] in Urine sediment by Automated count 0-4 [facility] Globulin Calc (S) [Mass/Vol] Ordered By: Jm Almaguer on 03-15-2024 Globulin (S) [Mass/Vol] Serum globulin measurement by calculation (mass/volume) [facility] Glucose [Mass/volume] in Ser um or PlasmaOrdered By: Jm Almaguer on 03-15-2024 Glucose [Mass/Vol] Glucose [Mass/volume ] in Serum or Plasma 70-100 [facility] Comment on above: ADA recommended refe rence rangeRandom Glucose Reference Range is dependent on time and content of last meal. Glucose of more than 200 mg/dL in a nonstressed, ambulatory subject supports the diagnosis of Diabetes Mellitus. Glucose [Mass/volume] in Uri ne by Test stripOrdered By: Jm Almaguer on 03-15-2024 Glucose Test strip (U) [Mass/Vol] Glucose [Mass/volume] in Urine by Test strip Normal [facility] Hematocrit Auto (Bld) [Volum e fraction]Ordered By: Jm Almaguer on 03-15-2024 Hematocrit (Bld) [Volume fraction] Hematocrit [Volume Fraction] of Blood by Automated count 34.0-46.4 [facility] Hemoglobin Test strip Ql (U) Ordered By: Jm Almaguer on 03-15-2024 Hemoglobin Ql (U) Hemoglobin [Presence ] in Urine by Test strip Negative [facility] Hemoglobin [Mass/volume] in BloodOrdered By: Jm Almaguer on 03-15-2024 Hemoglobin (Bld) [Mass/Vol] Hemoglobin [Mass/volume] in Blood Low 11.8-15.4 [facility] Hyaline casts [#/area] in Ur ine sediment by Automated countOrdered By: Jm Almaguer on 03-15-2024 Hyaline casts Auto (Urine sed) [#/Area] Hyaline casts [#/area] in Urine sediment by Automated count 0-8 [facility] Ketones Test strip Ql (U)Ord ered By: Jm Almaguer on 03-15-2024 Ketones Ql (U) Ketones [Presence] i n Urine by Test strip Negative [facility] Leukocyte clumps [Presence] in Urine by AutomatedOrdered By: Jm Almaguer on 03-15-2024 Leukocyte clumps Auto Ql (U) Leukocyte clumps [Presence] in Urine by Automated High None Seen [facility] Leukocyte esterase [Presence ] in Urine by Test stripOrdered By: Jm Almaguer on 03-15-2024 Leukocyte esterase Test strip Ql (U) Leukocyte esterase [Presence] in Urine by Test strip High Negative [facility] Leukocytes [#/area] in Urine sediment by Automated countOrdered By: Jm Almaguer on 03-15-2024 WBC Auto (Urine sed) [#/Area] Leukocytes [#/area] in Urine sediment by Automated count 0-4 [facility] Leukocytes [#/volume] correc hugh for nucleated erythrocytes in Blood by Automated counOrdered By: Jm Almaguer on 03-15-2024 WBC corrected for nucl RBC Auto (Bld) [#/Vol] Leukocytes [#/volume] corrected for nucleated erythrocytes in Blood by Automated coun 3.8-11.6 [facility] Lipaseon 03-15-2024 Lipase [Catalytic activity/Vol] 27.0 U/L Normal 11.0-82.0 [facility] Comment on above: Result Comment: PERF ORMED BY:[address] [place], [place] [phone] MEDICAL DIRECTORDOROTHY MENA M.D. Performed By: #### L IPASE, CMP ####[address] [address] [facility] Lipase [Enzymatic activity/v olume] in Serum or PlasmaOrdered By: mJ Almaguer on 03-15-2024 Lipase [Catalytic activity/Vol] Lipase [Enzymatic activity/volume] in Serum or Plasma 11.0-82.0 [facility] Lymphocytes Auto (Bld) [#/Vo l]Ordered By: Jm Almaguer on 03-15-2024 Lymphocytes (Bld) [#/Vol] Lymphocytes [#/volume] in Blood by Automated count 1.00-4.8 [facility] Lymphocytes/100 WBC Auto (Bl d)Ordered By: Jm Almaguer on 03-15-2024 Lymphocytes/100 WBC (Bld) Lymphocytes/100 leukocytes in Blood by Automated count . [facility] MCH Auto (RBC) [Entitic mass ]Ordered By: Jm Almaguer on 03-15-2024 MCH (RBC) [Entitic mass] MCH [Entitic mass] by Automated count 24.7-34.3 [facility] MCHC Auto (RBC) [Mass/Vol]Or dered By: Jm Almaguer on 03-15-2024 MCHC (RBC) [Mass/Vol] MCHC [Mass/volume] by Automated count 32.0-35.0 [facility] MCV Auto (RBC) [Entitic vol] Ordered By: Jm Almaguer on 03-15-2024 MCV (RBC) [Entitic vol] MCV [Entitic volume] by Automated count 80-100 [facility] Monocyte distribution width [Entitic volume] in Blood by AutomatedOrdered By: Jm Almaguer on 03-15-2024 Monocyte distribution width Auto (Bld) [Entitic vol] Monocyte distribution width [Entitic volume] in Blood by Automated 0.00-20.00 [facility] Monocytes Auto (Bld) [#/Vol] Ordered By: Jm Almaguer on 03-15-2024 Monocytes (Bld) [#/Vol] Automated blood monocyte count 0.0-0.8 [facility] Monocytes/100 WBC Auto (Bld) Ordered By: Jm Almaguer on 03-15-2024 Monocytes/100 WBC (Bld) Automated monocyte % . [facility] Mucus [Presence] in Urine by AutomatedOrdered By: Jm Almaguer on 03-15-2024 Mucus Auto Ql (U) Mucus [Presence] in Urine by Automated [facility] Neutrophils Auto (Bld) [#/Vo l]Ordered By: Jm Almaguer on 03-15-2024 Neutrophils (Bld) [#/Vol] Neutrophils [#/volume] in Blood by Automated count High 1.8-7.7 [facility] Neutrophils/100 WBC Auto (Bl d)Ordered By: Jm Almaguer on 03-15-2024 Neutrophils/100 WBC (Bld) Automated neutrophil % . [facility] Nitrite Test strip Ql (U)Ord ered By: Jm Almaguer on 03-15-2024 Nitrite Ql (U) Nitrite [Presence] i n Urine by Test strip Negative [facility] No Panel InformationOrdered By: Jm Almaguer on 03-15-2024 Estimated GFR (CKD-EPI) 42.657 mL/Min [facility] Creatinine Clearance (Chem 39.26 [facility] Nucleated erythrocytes [Pres ence] in Blood by Automated countOrdered By: Jm Almaguer on 03-15-2024 Nucleated RBC Auto Ql (Bld) Nucleated erythrocytes [Presence] in Blood by Automated count 0-0.5 [facility] Platelet mean volume Auto (B ld) [Entitic vol]Ordered By: Jm Almaguer on 03-15-2024 Platelet mean volume (Bld) [Entitic vol] Platelet mean volume [Entitic volume] in Blood by Automated count 6.3-10.7 [facility] Platelets Auto (Bld) [#/Vol] Ordered By: Jm Almaguer on 03-15-2024 Platelets (Bld) [#/Vol] Platelets [#/volume] in Blood by Automated count 150-450 [facility] Potassium [Moles/volume] in Serum or PlasmaOrdered By: Jm Almaguer on 03-15-2024 Potassium [Moles/Vol] Potassium [Moles/v olume] in Serum or Plasma 3.5-5.1 [facility] Protein Test strip (U) [Mass /Vol]Ordered By: Jm Almaguer on 03-15-2024 Protein (U) [Mass/Vol] Protein [Mass/vol ume] in Urine by Test strip Negative [facility] Protein [Mass/volume] in Ser um or PlasmaOrdered By: Jm Almaguer on 03-15-2024 Protein [Mass/Vol] Protein [Mass/volume ] in Serum or Plasma Low 6.4-8.9 [facility] RBC Auto (Bld) [#/Vol]Ordere d By: Jm Almaguer on 03-15-2024 RBC (Bld) [#/Vol] Erythrocytes [#/volu me] in Blood by Automated count 3.60-5.00 [facility] Serum or plasma albumin/glob ulin mass ratioOrdered By: Jm Almaguer on 03-15-2024 Albumin/Globulin [Mass ratio] Serum or plasma albumin/globulin mass ratio [facility] Serum or plasma anion gap de terminationOrdered By: Jm Almaguer on 03-15-2024 Anion gap [Moles/Vol] Serum or plasma an ion gap determination 6.0-15.0 [facility] Sodium [Moles/volume] in Ser um or PlasmaOrdered By: Jm Almaguer on 03-15-2024 Sodium [Moles/Vol] Sodium [Moles/volume ] in Serum or Plasma 136-145 [facility] Specific gravity Test strip (U) [Rel density]Ordered By: Jm Almaguer on 03-15-2024 Specific gravity (U) [Rel density] Specific gravity of Urine by Test strip 1.001-1.03 0 [facility] Urea nitrogen [Mass/volume] in Serum or PlasmaOrdered By: Jm Almaguer on 03-15-2024 Urea nitrogen [Mass/Vol] Urea nitrogen [Mass/volume] in Serum or Plasma High 7-25 [facility] Urine Cultureon 03-15-2024 Bacteria identified Cx Nom (U) Normal [facility] Comment on above: Performed By: #### C UU ####[facility] [id number] [place] [id number] [facility] Urine cultureOrdered By: More Almaguer on 03-15-2024 Bacteria identified Cx Nom (U) Urine culture [facility] Urobilinogen Test strip (U) [Mass/Vol]Ordered By: Jm Almaguer on 03-15-2024 Urobilinogen (U) [Mass/Vol] Urobilinogen [Mass/volume] in Urine by Test strip Normal [facility] WBC Auto (Bld) [#/Vol]Ordere d By: Jm Almaguer on 03-15-2024 WBC (Bld) [#/Vol] Leukocytes [#/volume ] in Blood by Automated count 3.8-11.6 [facility] pH Test strip (U)Ordered By: Jm Almaguer on 03-15-2024 pH (U) pH of Urine by Test strip 5.0-9.0 [facility] Basic Metabolic Panelon 12-2 Anion gap [Moles/Vol] 12.7 mmol/L Normal 6.0-15.0 [facility] Comment on above: Performed By: #### S CAN CBC, BMP ####[place] [address] [place] [address] [facility] Calcium [Mass/Vol] 8.9 mg/dL Normal 8.6-10.3 [facility] Comment on above: Performed By: #### S CAN CBC, BMP ####[place] [address] [place] [address] [facility] Chloride [Moles/Vol] 100 mmol/L Normal 98-107 [facility] Comment on above: Performed By: #### S CAN CBC, BMP ####[place] [address] [place] [address] [facility] CO2 [Moles/Vol] 32.6 mmol/L High 21.0-31.0 [facility] Comment on above: Performed By: #### S CAN CBC, BMP ####[place] [id number] [facility] Creatinine [Mass/Vol] 1.15 mg/dL Normal 0.60-1.20 [facility] Comment on above: Performed By: #### S CAN CBC, BMP ####[address] [address] [facility] Creatinine Clr Calc Pharmacy 46.78 Normal [facility] Comment on above: Result Comment: PERF ORMED BY:[address] [place], [place] [id number] MEDICAL DIRECTORDOROTHY MENA M.D. Performed By: #### S CAN CBC, BMP ####[address] [address] [facility] Estimated GFR 51.248 mL/Min Normal [facility] Comment on above: Performed By: #### S CAN CBC, BMP ####[address] [address] [facility] Glucose [Mass/Vol] 105 mg/dL High 70-100 [facility] Comment on above: Result Comment: [place] Glucose Reference Range is dependent on time and content of last meal. Glucose of more than 200 mg/dL in a nonstressed, ambulatory subject supports the diagnosis of Diabetes Mellitus. ADA recommended reference range Performed By: #### S CAN CBC, BMP ####[facility] [id number] Potassium [Moles/Vol] 4.3 mmol/L Normal 3.5-5.1 [facility] Comment on above: Performed By: #### S CAN CBC, BMP ####[facility] [id number] Sodium [Moles/Vol] 141 mmol/L Normal 136-145 [facility] Comment on above: Performed By: #### S CAN CBC, BMP ####[facility] [id number] Urea nitrogen [Mass/Vol] 26 mg/dL High 7-25 [facility] Comment on above: Performed By: #### S CAN CBC, BMP ####[facility] [id number] Basophils Auto (Bld) [#/Vol] Ordered By: Clarence Matias on 03-04-2024 Basophils (Bld) [#/Vol] Automated basophil count 0.0-0.2 [facility] Basophils/100 WBC Auto (Bld) Ordered By: Clarence Matias on 03-04-2024 Basophils/100 WBC (Bld) Automated basophil % . [facility] Calcium [Mass/volume] in Ser um or PlasmaOrdered By: Clarence Matias on 03-04-2024 Calcium [Mass/Vol] Calcium [Mass/volume ] in Serum or Plasma 8.6-10.3 [facility] Carbon dioxide, total [Moles /volume] in Serum or PlasmaOrdered By: Clarence Matias on 03-04-2024 CO2 [Moles/Vol] Carbon dioxide, tota l [Moles/volume] in Serum or Plasma High 21.0-31.0 [facility] Chloride [Moles/volume] in S cait or PlasmaOrdered By: Clarence Matias on 03-04-2024 Chloride [Moles/Vol] Chloride [Moles/vol ume] in Serum or Plasma 98-107 [facility] Creatinine [Mass/volume] in Serum or PlasmaOrdered By: Clarence Matias on 03-04-2024 Creatinine [Mass/Vol] Creatinine [Mass/v olume] in Serum or Plasma 0.60-1.20 [facility] Eosinophils Auto (Bld) [#/Vo l]Ordered By: Clarence Matias on 03-04-2024 Eosinophils (Bld) [#/Vol] Automated eosinophil count 0.0-0.45 [facility] Eosinophils/100 WBC Auto (Bl d)Ordered By: Clarence Matias on 03-04-2024 Eosinophils/100 WBC (Bld) Automated eosinophil % . [facility] Erythrocyte distribution wid th Auto (RBC) [Ratio]Ordered By: Clarence Matias on 03-04-2024 Erythrocyte distribution width (RBC) [Ratio] Erythrocyte distribution width [Ratio] by Automated count 11.9-15.3 [facility] Erythrocyte morphology findi ng [Identifier] in BloodOrdered By: Clarence Matias on 03-04-2024 RBC morphology finding Nom (Bld) RBC morphology Normal [facility] Glucose Glucometer (BldC) [M ass/Vol]Ordered By: lCarence Matias on 03-04-2024 Glucose [Mass/Vol] Capillary blood gluc ose measurement by glucometer (mass/volume) [facility] Comment on above: Random Glucose Refer ence Range is dependent on time and content of last meal. Glucose of more than 200 mg/dL in a nonstressed, ambulatory subject supports the diagnosis of Diabetes Mellitus. Glucose Poct Glucometerson 1 05-05-2023 Commemt1 Glu2: Cleaned Meter Normal [facility] Comment on above: Result Comment: PERF ORMED BY:[place] [id number] [place] [id number] MEDICAL DIRECTORDOROTHY MENA M.D. Performed By: #### G DOMINIC ####Point of Care testing, Glucose [Mass/Vol] 208 mg/dL Normal [facility] Comment on above: Result Comment: [place] om Glucose Reference Range is dependent on time and content of last meal. Glucose of more than 200 mg/dL in a nonstressed, ambulatory subject supports the diagnosis of Diabetes Mellitus. Performed By: #### G LULS ####Point of Care testing, Commemt1 Glu2: Cleaned Meter Normal [facility] Comment on above: Result Comment: PERF ORMED BY:[facility] [place], [place] [id number] MEDICAL DIRECTORDOROTHY MENA M.D. Performed By: #### G LULS ####Point of Care testing, Glucose [Mass/Vol] 100 mg/dL Normal [facility] Comment on above: Result Comment: [place] om Glucose Reference Range is dependent on time and content of last meal. Glucose of more than 200 mg/dL in a nonstressed, ambulatory subject supports the diagnosis of Diabetes Mellitus. Performed By: #### G LULS ####Point of Care testing, Glucose [Mass/volume] in Ser um or PlasmaOrdered By: Clarence Matias on 03-04-2024 Glucose [Mass/Vol] Glucose [Mass/volume ] in Serum or Plasma High 70-100 [facility] Comment on above: ADA recommended refe rence rangeRandom Glucose Reference Range is dependent on time and content of last meal. Glucose of more than 200 mg/dL in a nonstressed, ambulatory subject supports the diagnosis of Diabetes Mellitus. Hematocrit Auto (Bld) [Volum e fraction]Ordered By: Clarence Matias on 03-04-2024 Hematocrit (Bld) [Volume fraction] Hematocrit [Volume Fraction] of Blood by Automated count Low 34.0-46.4 [facility] Hemoglobin [Mass/volume] in BloodOrdered By: Clarence Matias on 03-04-2024 Hemoglobin (Bld) [Mass/Vol] Hemoglobin [Mass/volume] in Blood Low 11.8-15.4 [facility] Leukocytes [#/volume] correc hugh for nucleated erythrocytes in Blood by Automated counOrdered By: Clarence Matias on 03-04-2024 WBC corrected for nucl RBC Auto (Bld) [#/Vol] Leukocytes [#/volume] corrected for nucleated erythrocytes in Blood by Automated coun 3.8-11.6 [facility] Lymphocytes Auto (Bld) [#/Vo l]Ordered By: Clarence Matias on 03-04-2024 Lymphocytes (Bld) [#/Vol] Lymphocytes [#/volume] in Blood by Automated count 1.00-4.8 [facility] Lymphocytes/100 WBC Auto (Bl d)Ordered By: Clarence Matias on 03-04-2024 Lymphocytes/100 WBC (Bld) Lymphocytes/100 leukocytes in Blood by Automated count . [facility] MCH Auto (RBC) [Entitic mass ]Ordered By: Clarence Matias on 03-04-2024 MCH (RBC) [Entitic mass] MCH [Entitic mass] by Automated count 24.7-34.3 [facility] MCHC Auto (RBC) [Mass/Vol]Or dered By: Clarence Matias on 03-04-2024 MCHC (RBC) [Mass/Vol] MCHC [Mass/volume] by Automated count 32.0-35.0 [facility] MCV Auto (RBC) [Entitic vol] Ordered By: Clarence Matias on 03-04-2024 MCV (RBC) [Entitic vol] MCV [Entitic volume] by Automated count 80-100 [facility] Monocytes Auto (Bld) [#/Vol] Ordered By: Clarence Matias on 03-04-2024 Monocytes (Bld) [#/Vol] Automated blood monocyte count 0.0-0.8 [facility] Monocytes/100 WBC Auto (Bld) Ordered By: Clarence Matias on 03-04-2024 Monocytes/100 WBC (Bld) Automated monocyte % . [facility] Neutrophils Auto (Bld) [#/Vo l]Ordered By: Clarence Matias on 03-04-2024 Neutrophils (Bld) [#/Vol] Neutrophils [#/volume] in Blood by Automated count 1.8-7.7 [facility] Neutrophils/100 WBC Auto (Bl d)Ordered By: Clarence Matias on 03-04-2024 Neutrophils/100 WBC (Bld) Automated neutrophil % . [facility] No Panel InformationOrdered By: Clarence Matias on 03-04-2024 Bedside Glucose Comment Glu2: cleaned meter [facility] Glu2: cleaned meter [facility] Estimated GFR (CKD-EPI) 51.248 mL/Min [facility] Creatinine Clearance (Chem 46.78 [facility] 51.248 mL/Min [facility] 46.78 [facility] Nucleated erythrocytes [Pres ence] in Blood by Automated countOrdered By: Clarence Matias on 03-04-2024 Nucleated RBC Auto Ql (Bld) Nucleated erythrocytes [Presence] in Blood by Automated count 0-0.5 [facility] Platelet adequacy [Presence] in Blood by Light microscopyOrdered By: Clarence Matias on 03-04-2024 Platelets LM Ql (Bld) Platelet adequacy [Presence] in Blood by Light microscopy Normal [facility] Platelet mean volume Auto (B ld) [Entitic vol]Ordered By: Clarence Matias on 03-04-2024 Platelet mean volume (Bld) [Entitic vol] Platelet mean volume [Entitic volume] in Blood by Automated count 6.3-10.7 [facility] Platelet morphology finding [Identifier] in BloodOrdered By: Clarence Matias on 03-04-2024 Platelet morphology finding Nom (Bld) Platelet morphology finding [Identifier] in Blood Normal [facility] Platelets Auto (Bld) [#/Vol] Ordered By: Clarence Matias on 03-04-2024 Platelets (Bld) [#/Vol] Platelets [#/volume] in Blood by Automated count 150-450 [facility] Potassium [Moles/volume] in Serum or PlasmaOrdered By: Clarence Matias on 03-04-2024 Potassium [Moles/Vol] Potassium [Moles/v olume] in Serum or Plasma 3.5-5.1 [facility] RBC Auto (Bld) [#/Vol]Ordere d By: Clarence Matias on 03-04-2024 RBC (Bld) [#/Vol] Erythrocytes [#/volu me] in Blood by Automated count 3.60-5.00 [facility] Scan and CBCon 03-04-2024 Basophils (Bld) [#/Vol] 0.0 10*3/uL Normal 0.0-0.2 [facility] Comment on above: Performed By: #### S CAN CBC, BMP ####[address] Basophils/100 WBC (Bld) 0.3 % Normal . [facility] Comment on above: Performed By: #### S CAN CBC, BMP ####[address] Eosinophils (Bld) [#/Vol] 0.0 10*3/uL Normal 0.0-0.45 [facility] Comment on above: Performed By: #### S CAN CBC, BMP ####[address] Eosinophils/100 WBC (Bld) 0.1 % Normal . [facility] Comment on above: Performed By: #### S CAN CBC, BMP ####[address] Erythrocyte distribution width (RBC) [Ratio] 14.4 % Normal 11.9-15.3 [facility] Comment on above: Performed By: #### S CAN CBC, BMP ####[address] Hematocrit (Bld) [Volume fraction] 33.7 % Low 34.0-46.4 [facility] Comment on above: Performed By: #### S CAN CBC, BMP ####[address] Hemoglobin (Bld) [Mass/Vol] 11.0 g/dL Low 11.8-15.4 [facility] Comment on above: Performed By: #### S CAN CBC, BMP ####[address] [place] [address] [place] Lymphocytes (Bld) [#/Vol] 1.5 10*3/uL Normal 1.00-4.8 [facility] Comment on above: Performed By: #### S CAN CBC, BMP ####[address] Lymphocytes/100 WBC (Bld) 18.1 % Normal . [facility] Comment on above: Performed By: #### S CAN CBC, BMP ####[address] MCH (RBC) [Entitic mass] 27.9 pg Normal 24.7-34.3 [facility] Comment on above: Performed By: #### S CAN CBC, BMP ####[address] MCV (RBC) [Entitic vol] 85.9 fL Normal 80-100 [facility] Comment on above: Performed By: #### S CAN CBC, BMP ####[address] Mean Corpuscular HGB Conc 32.5 g/dL Normal 32.0-35.0 [facility] Comment on above: Performed By: #### S CAN CBC, BMP ####[address] Monocytes (Bld) [#/Vol] 0.6 10*3/uL Normal 0.0-0.8 [facility] Comment on above: Performed By: #### S CAN CBC, BMP ####[address] Monocytes/100 WBC (Bld) 7.7 % Normal . [facility] Comment on above: Performed By: #### S CAN CBC, BMP ####[address] Neutrophils (Bld) [#/Vol] 6.2 10*3/uL Normal 1.8-7.7 [facility] Comment on above: Performed By: #### S CAN CBC, BMP ####[address] [place] [address] [facility] Neutrophils/100 WBC (Bld) 73.8 % Normal . [facility] Comment on above: Performed By: #### S CAN CBC, BMP ####[address] [place] [address] [facility] NRBC% 0.1 /100{WBC} Normal 0-0.5 [facility] Comment on above: Performed By: #### S CAN CBC, BMP ####[address] [address] [facility] Platelet Estimate Normal Normal Normal [facility] Comment on above: Performed By: #### S CAN CBC, BMP ####[address] [place] [id number] [facility] Platelet mean volume (Bld) [Entitic vol] 8.0 fL Normal 6.3-10.7 [facility] Comment on above: Performed By: #### S CAN CBC, BMP ####[place] [id number] [facility] Platelet Morphology Normal Normal Normal [facility] Comment on above: Result Comment: PERF ORMED BY:[address] [place], [place] [phone] MEDICAL DIRECTORMOBRIANNA MENA M.D. Performed By: #### S CAN CBC, BMP ####[address] [address] [facility] Platelets (Bld) [#/Vol] 195 10*3/uL Normal 150-450 [facility] Comment on above: Performed By: #### S CAN CBC, BMP ####[address] [address] [facility] RBC (Bld) [#/Vol] 3.92 10*6/uL Normal 3.60-5.00 [facility] Comment on above: Performed By: #### S CAN CBC, BMP ####[place] [id number] [facility] RBC morphology finding Nom (Bld) Normal Normal Normal [facility] Comment on above: Performed By: #### S CAN CBC, BMP ####[facility] [address]wi[address] Toxic Vacuolation Slight Normal [facility] Comment on above: Performed By: #### S CAN CBC, BMP ####[facility] [id number] [place] [id number] [facility] WBC (Bld) [#/Vol] 8.4 10*3/uL Normal 3.8-11.6 [facility] Comment on above: Performed By: #### S CAN CBC, BMP ####[facility] [id number] Serum or plasma anion gap de terminationOrdered By: Clarence Matias on 03-04-2024 Anion gap [Moles/Vol] Serum or plasma an ion gap determination 6.0-15.0 [facility] Sodium [Moles/volume] in Ser um or PlasmaOrdered By: Clarence Matias on 03-04-2024 Sodium [Moles/Vol] Sodium [Moles/volume ] in Serum or Plasma 136-145 [facility] Toxic leukocyte vacuolation detectionOrdered By: Clarence Matias on 03-04-2024 Leukocyte toxic vacuoles LM Ql (Bld) Toxic leukocyte vacuolation detection [facility] Urea nitrogen [Mass/volume] in Serum or PlasmaOrdered By: Clarence Matias on 03-04-2024 Urea nitrogen [Mass/Vol] Urea nitrogen [Mass/volume] in Serum or Plasma High 7-25 [facility] WBC Auto (Bld) [#/Vol]Ordere d By: Clarence Matias on 03-04-2024 WBC (Bld) [#/Vol] Leukocytes [#/volume ] in Blood by Automated count 3.8-11.6 [facility] Anisocytosis LM Ql (Bld)Orde red By: Clarence Matias on 03-03-2024 Anisocytosis Ql (Bld) Anisocytosis [Pres ence] in Blood by Light microscopy [facility] Basic Metabolic Panelon 02-05 Anion gap [Moles/Vol] 12.8 mmol/L Normal 6.0-15.0 [facility] Comment on above: Performed By: #### S CAN CBC, BMP ####[address] Calcium [Mass/Vol] 9.0 mg/dL Normal 8.6-10.3 [facility] Comment on above: Performed By: #### S CAN CBC, BMP ####[address] Chloride [Moles/Vol] 101 mmol/L Normal 98-107 [facility] Comment on above: Performed By: #### S CAN CBC, BMP ####[address] CO2 [Moles/Vol] 30.8 mmol/L Normal 21.0-31.0 [facility] Comment on above: Performed By: #### S CAN CBC, BMP ####[address] Creatinine [Mass/Vol] 1.27 mg/dL High 0.60-1.20 [facility] Comment on above: Performed By: #### S CAN CBC, BMP ####[address] Creatinine Clr Calc Pharmacy 42.23 Normal [facility] Comment on above: Result Comment: PERF ORMED BY:[address] [place], [place] [phone] MEDICAL DIRECTORDOROTHY MENA M.D. Performed By: #### S CAN CBC, BMP ####[phone] [facility] Estimated GFR 45.494 mL/Min Normal [facility] Comment on above: Performed By: #### S CAN CBC, BMP ####[place] [phone] [facility] Potassium [Moles/Vol] 4.6 mmol/L Normal 3.5-5.1 [facility] Comment on above: Performed By: #### S CAN CBC, BMP ####[facility] [place] [address] [facility] Sodium [Moles/Vol] 140 mmol/L Normal 136-145 [facility] Comment on above: Performed By: #### S CAN CBC, BMP ####[facility] [place] [address] [facility] Urea nitrogen [Mass/Vol] 35 mg/dL High 7-25 [facility] Comment on above: Performed By: #### S CAN CBC, BMP ####[facility] [place] [address] [facility] Glucose Poct Glucometerson 1 05-04-2023 Glucose [Mass/Vol] 180 mg/dL Normal [facility] Comment on above: Result Comment: [place] om Glucose Reference Range is dependent on time and content of last meal. Glucose of more than 200 mg/dL in a nonstressed, ambulatory subject supports the diagnosis of Diabetes Mellitus.PERFORMED BY:[address] [address], [place] [phone] MEDICAL DIRECTORDOROTHY MENA M.D. Performed By: #### G LULS ####Point of Care testing, Commemt1 Glu2: Cleaned Meter Normal [facility] Comment on above: Result Comment: PERF ORMED BY:[address] [place], [place] [phone] MEDICAL DIRECTORMOBRIANNA MENA M.D. Performed By: #### G LULS ####Point of Care testing, Glucose [Mass/Vol] 151 mg/dL High 70-100 [facility] Comment on above: Result Comment: [place] [facility] Glucose Reference Range is dependent on time and content of last meal. Glucose of more than 200 mg/dL in a nonstressed, ambulatory subject supports the diagnosis of Diabetes Mellitus. Performed By: #### G LULS ####Point of Care testing, Result Comment: [place] [facility] Glucose Reference Range is dependent on time and content of last meal. Glucose of more than 200 mg/dL in a nonstressed, ambulatory subject supports the diagnosis of Diabetes Mellitus. ADA recommended reference range Performed By: #### S CAN CBC, BMP ####[address] [address] [facility] Glucose [Mass/Vol] 222 mg/dL Normal [facility] Comment on above: Result Comment: [place] [facility] Glucose Reference Range is dependent on time and content of last meal. Glucose of more than 200 mg/dL in a nonstressed, ambulatory subject supports the diagnosis of Diabetes Mellitus.PERFORMED BY:[address] [place], [place] [phone] MEDICAL DIRECTORDOROTHY MENA M.D. Performed By: #### G LULS ####Point of Care testing, Glucose [Mass/Vol] 139 mg/dL Normal [facility] Comment on above: Result Comment: [place] [facility] Glucose Reference Range is dependent on time and content of last meal. Glucose of more than 200 mg/dL in a nonstressed, ambulatory subject supports the diagnosis of Diabetes Mellitus.PERFORMED BY:[address] [place], [place] [phone] MEDICAL DIRECTORDOROTHY MENA M.D. Performed By: #### G LULS ####Point of Care testing, Microcytes LM Ql (Bld)Ordere d By: Clarence Matias on 03-03-2024 Microcytes Ql (Bld) Microcytes [Presence ] in Blood by Light microscopy [facility] Ovalocytes [Presence] in Blo od by Light microscopyOrdered By: Clarence Matias on 03-03-2024 Ovalocytes LM Ql (Bld) Ovalocyte detection [facility] Poikilocytosis [Presence] in Blood by Light microscopyOrdered By: Clarence Matias on 03-03-2024 Poikilocytosis LM Ql (Bld) Poikilocytosis [Presence] in Blood by Light microscopy [facility] Polychromasia [Presence] in Blood by Light microscopyOrdered By: Clarence Matias on 03-03-2024 Polychromasia LM Ql (Bld) Polychromasia [Presence] in Blood by Light microscopy [facility] Scan and CBCon 03-03-2024 Anisocytosis Ql (Bld) Moderate Normal [facility] Comment on above: Performed By: #### S CAN CBC, BMP ####[address] Basophils (Bld) [#/Vol] 0.0 10*3/uL Normal 0.0-0.2 [facility] Comment on above: Performed By: #### S CAN CBC, BMP ####[place] [id number] [facility] Basophils/100 WBC (Bld) 0.2 % Normal . [facility] Comment on above: Performed By: #### S CAN CBC, BMP ####[address] Eosinophils (Bld) [#/Vol] 0.0 10*3/uL Normal 0.0-0.45 [facility] Comment on above: Performed By: #### S CAN CBC, BMP ####[address] Eosinophils/100 WBC (Bld) 0.0 % Normal . [facility] Comment on above: Performed By: #### S CAN CBC, BMP ####[address] Erythrocyte distribution width (RBC) [Ratio] 14.7 % Normal 11.9-15.3 [facility] Comment on above: Performed By: #### S CAN CBC, BMP ####[phone] [facility] Hematocrit (Bld) [Volume fraction] 32.4 % Low 34.0-46.4 [facility] Comment on above: Performed By: #### S CAN CBC, BMP ####[place] [phone] [facility] Hemoglobin (Bld) [Mass/Vol] 10.6 g/dL Low 11.8-15.4 [facility] Comment on above: Performed By: #### S CAN CBC, BMP ####[address] Lymphocytes (Bld) [#/Vol] 0.7 10*3/uL Low 1.00-4.8 [facility] Comment on above: Performed By: #### S CAN CBC, BMP ####[address] Lymphocytes/100 WBC (Bld) 6.3 % Normal . [facility] Comment on above: Performed By: #### S CAN CBC, BMP ####[address] MCH (RBC) [Entitic mass] 27.5 pg Normal 24.7-34.3 [facility] Comment on above: Performed By: #### S CAN CBC, BMP ####[address] MCV (RBC) [Entitic vol] 84.5 fL Normal 80-100 [facility] Comment on above: Performed By: #### S CAN CBC, BMP ####[address] Mean Corpuscular HGB Conc 32.6 g/dL Normal 32.0-35.0 [facility] Comment on above: Performed By: #### S CAN CBC, BMP ####[address] Microcytosis Moderate Normal [facility] Comment on above: Performed By: #### S CAN CBC, BMP ####[address] Monocytes (Bld) [#/Vol] 0.5 10*3/uL Normal 0.0-0.8 [facility] Comment on above: Performed By: #### S CAN CBC, BMP ####[address] Monocytes/100 WBC (Bld) 4.9 % Normal . [facility] Comment on above: Performed By: #### S CAN CBC, BMP ####[address] [place] [address] [facility] Neutrophils (Bld) [#/Vol] 9.9 10*3/uL High 1.8-7.7 [facility] Comment on above: Performed By: #### S CAN CBC, BMP ####[address] [place] [address] [facility] Neutrophils/100 WBC (Bld) 88.6 % Normal . [facility] Comment on above: Performed By: #### S CAN CBC, BMP ####[address] [address] [facility] NRBC% 0.1 /100{WBC} Normal 0-0.5 [facility] Comment on above: Performed By: #### S CAN CBC, BMP ####[address] [address] [facility] Ovalocytes Slight Normal [facility] Comment on above: Performed By: #### S CAN CBC, BMP ####[address] [address] [facility] Platelet Estimate Normal Normal Normal [facility] Comment on above: Performed By: #### S CAN CBC, BMP ####[address] [address] [facility] Platelet mean volume (Bld) [Entitic vol] 8.2 fL Normal 6.3-10.7 [facility] Comment on above: Performed By: #### S CAN CBC, BMP ####[address] [address] [facility] Platelet Morphology Normal Normal Normal [facility] Comment on above: Result Comment: PERF ORMED BY:[address] [place], [place] [phone] MEDICAL DIRECTORDOROTHY MENA M.D. Performed By: #### S CAN CBC, BMP ####[address] [address] [facility] Platelets (Bld) [#/Vol] 225 10*3/uL Normal 150-450 [facility] Comment on above: Performed By: #### S CAN CBC, BMP ####[address] [address] [facility] Poikilocytosis Slight Normal [facility] Comment on above: Performed By: #### S CAN CBC, BMP ####[facility] [place] [address] [facility] Polychromasia Slight Normal [facility] Comment on above: Performed By: #### S CAN CBC, BMP ####[address] [address] [facility] RBC (Bld) [#/Vol] 3.83 10*6/uL Normal 3.60-5.00 [facility] Comment on above: Performed By: #### S CAN CBC, BMP ####[address] [address] [facility] WBC (Bld) [#/Vol] 11.2 10*3/uL Normal 3.8-11.6 [facility] Comment on above: Performed By: #### S CAN CBC, BMP ####[address] [address] [facility] Basic Metabolic Panelon 12-2 Anion gap [Moles/Vol] 11.3 mmol/L Normal 6.0-15.0 [facility] Comment on above: Performed By: #### B MP, [id number] ####[address] [address] [facility] Calcium [Mass/Vol] 8.9 mg/dL Normal 8.6-10.3 [facility] Comment on above: Performed By: #### B MP, [id number] ####[address] [address] [facility] Chloride [Moles/Vol] 99 mmol/L Normal 98-107 [facility] Comment on above: Performed By: #### B MP, [id number] ####[address] [address] [facility] CO2 [Moles/Vol] 32.6 mmol/L High 21.0-31.0 [facility] Comment on above: Performed By: #### B DIANNE, [id number] ####[place] [phone] [facility] Creatinine [Mass/Vol] 1.46 mg/dL High 0.60-1.20 [facility] Comment on above: Performed By: #### B DIANNE, [id number] ####[place] [phone] [facility] Creatinine Clr Calc Pharmacy 36.73 Normal [facility] Comment on above: Performed By: #### B DIANNE, [id number] ####[address] [address] [facility] Estimated GFR 38.485 mL/Min Normal [facility] Comment on above: Performed By: #### B DIANNE, [id number] ####[place] [phone] [facility] Glucose [Mass/Vol] 157 mg/dL High 70-100 [facility] Comment on above: Result Comment: [facility] Glucose Reference Range is dependent on time and content of last meal. Glucose of more than 200 mg/dL in a nonstressed, ambulatory subject supports the diagnosis of Diabetes Mellitus. ADA recommended reference range Performed By: #### B DIANNE, [id number] ####[place] [phone] [facility] Potassium [Moles/Vol] 4.9 mmol/L Significan t change down 3.5-5.1 [facility] Comment on above: Performed By: #### B DIANNE, [id number] ####[address] [address] [facility] Sodium [Moles/Vol] 138 mmol/L Normal 136-145 [facility] Comment on above: Performed By: #### B DIANNE, [id number] ####[address] [address] [facility] Urea nitrogen [Mass/Vol] 36 mg/dL High 7-25 [facility] Comment on above: Performed By: #### B DIANNE, [id number] ####[address] [address] [facility] Complete Blood Count Auto Di ffon 03-02-2024 Basophils (Bld) [#/Vol] 0.0 10*3/uL Normal 0.0-0.2 [facility] Comment on above: Result Comment: PERF ORMED BY:[address] [place], [place] [phone] MEDICAL DIRECTORDOROTHY MENA M.D. Performed By: #### C BC ####[place] [phone] [facility] Basophils/100 WBC (Bld) 0.0 % Normal . [facility] Comment on above: Performed By: #### C BC ####[address] Eosinophils (Bld) [#/Vol] 0.0 10*3/uL Normal 0.0-0.45 [facility] Comment on above: Performed By: #### C BC ####[place] [phone] [facility] Eosinophils/100 WBC (Bld) 0.0 % Normal . [facility] Comment on above: Performed By: #### C BC ####[place] [phone] [facility] Erythrocyte distribution width (RBC) [Ratio] 14.9 % Normal 11.9-15.3 [facility] Comment on above: Performed By: #### C BC ####[place] [phone] [facility] Hematocrit (Bld) [Volume fraction] 30.5 % Low 34.0-46.4 [facility] Comment on above: Performed By: #### C BC ####[place] [phone] [facility] Hemoglobin (Bld) [Mass/Vol] 10.2 g/dL Low 11.8-15.4 [facility] Comment on above: Performed By: #### C BC ####[address] Lymphocytes (Bld) [#/Vol] 0.8 10*3/uL Low 1.00-4.8 [facility] Comment on above: Performed By: #### C BC ####[address] Lymphocytes/100 WBC (Bld) 6.0 % Normal . [facility] Comment on above: Performed By: #### C BC ####[address] MCH (RBC) [Entitic mass] 28.4 pg Normal 24.7-34.3 [facility] Comment on above: Performed By: #### C BC ####[address] MCV (RBC) [Entitic vol] 85.0 fL Normal 80-100 [facility] Comment on above: Performed By: #### C BC ####[address] Mean Corpuscular HGB Conc 33.4 g/dL Normal 32.0-35.0 [facility] Comment on above: Performed By: #### C BC ####[address] Monocytes (Bld) [#/Vol] 0.4 10*3/uL Normal 0.0-0.8 [facility] Comment on above: Performed By: #### C BC ####[address] Monocytes/100 WBC (Bld) 2.6 % Normal . [facility] Comment on above: Performed By: #### C BC ####[address] Neutrophils (Bld) [#/Vol] 12.1 10*3/uL High 1.8-7.7 [facility] Comment on above: Performed By: #### C BC ####[address] Neutrophils/100 WBC (Bld) 91.4 % Normal . [facility] Comment on above: Performed By: #### C BC ####[address] [address] [facility] NRBC% 0.0 /100{WBC} Normal 0-0.5 [facility] Comment on above: Performed By: #### C BC ####[address] [address] [facility] Platelet mean volume (Bld) [Entitic vol] 8.1 fL Normal 6.3-10.7 The [facility] Comment on above: Performed By: #### C BC ####[address] [address] [facility] Platelets (Bld) [#/Vol] 182 10*3/uL Normal 150-450 [facility] Comment on above: Performed By: #### C BC ####[place] [id number] [facility] RBC (Bld) [#/Vol] 3.59 10*6/uL Low 3.60-5.00 The [facility] Comment on above: Performed By: #### C BC ####[place] [id number] [facility] WBC (Bld) [#/Vol] 13.3 10*3/uL High 3.8-11.6 The [facility] Comment on above: Performed By: #### C BC ####[address] [address] [facility] Glucose Poct Glucometerson 1 05-03-2023 Glucose [Mass/Vol] 168 mg/dL Normal The [facility] Comment on above: Result Comment: [place] Glucose Reference Range is dependent on time and content of last meal. Glucose of more than 200 mg/dL in a nonstressed, ambulatory subject supports the diagnosis of Diabetes Mellitus.PERFORMED BY:[address] [place], [place] [phone] MEDICAL DIRECTORDOROTHY MENA M.D. Performed By: #### G LULS ####Point of Care testing, Glucose [Mass/Vol] 232 mg/dL Normal The [facility] Comment on above: Result Comment: [place] om Glucose Reference Range is dependent on time and content of last meal. Glucose of more than 200 mg/dL in a nonstressed, ambulatory subject supports the diagnosis of Diabetes Mellitus.PERFORMED BY:[place] [address] [address] H[place]ÁN[place]ZWH[place], [place] [phone] MEDICAL DIRECTORLASHAWNMUSC HEALTH FLORENCE MEDICAL CENTERAMANDA Guerrier Performed By: #### G LULS ####Point of Care testing, Glucose [Mass/Vol] 201 mg/dL Normal The [facility] Comment on above: Result Comment: [place] om Glucose Reference Range is dependent on time and content of last meal. Glucose of more than 200 mg/dL in a nonstressed, ambulatory subject supports the diagnosis of Diabetes Mellitus.PERFORMED BY:[address] HERNÁNDEZWHITEFACE, [place] [phone] MEDICAL DIRECTORLASHAWNMUSC HEALTH FLORENCE MEDICAL CENTERAMANDA Guerrier Performed By: #### G LULS ####Point of Care testing, Glucose [Mass/Vol] 146 mg/dL Normal The [facility] Comment on above: Result Comment: [place] om Glucose Reference Range is dependent on time and content of last meal. Glucose of more than 200 mg/dL in a nonstressed, ambulatory subject supports the diagnosis of Diabetes Mellitus.PERFORMED BY:[address] [address] [place] [place], [place] [phone] MEDICAL DIRECTORLASHAWNMUSC HEALTH FLORENCE MEDICAL CENTERAMANDA Guerrier Performed By: #### G LULS ####Point of Care testing, Troponin I High Sensitivityo n 03-02-2024 Troponin I High Sensitivity 81.5 pg/mL Off scale high 0.0-15.0 The [facility] Comment on above: Result Comment: Crit ical Result : Called to and read back by: APOLLO STUBBS at: 03/02/2024 06:13:38 by:GONZALOERFORMED BY:[address] [address] [address] [place], [place] [phone] MEDICAL DIRECTORDOROTHY MENA M.D. Performed By: #### H S TROP ####[address] [address] [place] [address] [facility] Troponin I.cardiac [Mass/vol ume] in Serum or Plasma by Detection limit <= 0.01 ng/Ordered By: Clarence Matias on 03-02-2024 Troponin I.cardiac DL <= 0.01 ng/mL [Mass/Vol] Troponin I.cardiac [Mass/volume] in Serum or Plasma by Detection limit <= 0.01 ng/ Critically high 0.0-15.0 [facility] Comment on above: Critical Result : Ca lled to and read back by: APOLLO STUBBS at: 03/02/2024 06:13:38 by:MLG Vitamin D 25 Hydroxy Totalon 03-02-2024 Vitamin D 25 Hydroxy Total 53.5 ng/mL Normal 30-100 The [facility] Comment on above: Result Comment: ADRI MIN D STATUS 25([place])VITAMIN D RANGE (ng/mL) Deficient <20 Insufficient 20 to <30 Sufficient 30 to 100 Reference: Frannie BAIN,Oumar NC, Radha MCGOWAN, et al. Evaluation,treatment, and prevention of vitamin D deficiency; an Endocrine Society clinical practice guideline. JCEM. 2010; 96(7):1911-30.PERFORMED BY:[address] [address] [address] [place]NDEZROB[place], [place] [phone] MEDICAL DIRECTORDOROTHY MENA M.D. Performed By: #### B MP, [id number] ####[address] [place] [address] [facility] Vitamin D+Metabolites [Mass/ volume] in Serum or PlasmaOrdered By: Clarence Matias on 03-02-2024 Vitamin D+Metabolites [Mass/Vol] Vitamin D+Metabolites [Mass/volume] in Serum or Plasma 30-100 [facility] Comment on above: VITAMIN D STATUS 25( [place])VITAMIN D RANGE (ng/mL) Deficient <20 Insufficient 20 to <30Sufficient 30 to 100Reference: Frannie MF,Oumar NC, Radha MCGOWAN, et al. Evaluation,treatment, and prevention of vitamin D deficiency; an Endocrine Society clinical practice guideline. JCEM. 2010; 96(7):1911-30. Basic Metabolic Panelon 12-2 Anion gap [Moles/Vol] 16.1 mmol/L High 6.0-15.0 Th e [facility] Comment on above: Performed By: #### H S TROP, MG, BMP, CBC ####[place] [phone] [facility] Calcium [Mass/Vol] 8.7 mg/dL Normal 8.6-10.3 The [facility] Comment on above: Performed By: #### H S TROP, MG, BMP, CBC ####[place] [phone] [facility] Chloride [Moles/Vol] 97 mmol/L Low 98-107 [facility] Comment on above: Performed By: #### H S TROP, MG, BMP, CBC ####[place] [phone] [facility] CO2 [Moles/Vol] 31.3 mmol/L High 21.0-31.0 The [facility] Comment on above: Performed By: #### H S TROP, MG, BMP, CBC ####[address] [address] [facility] Creatinine [Mass/Vol] 1.39 mg/dL High 0.60-1.20 The [facility] Comment on above: Performed By: #### H S TROP, MG, BMP, CBC ####[address] [address] [facility] Creatinine Clr Calc Pharmacy 38.30 Normal The [facility] Comment on above: Performed By: #### H S TROP, MG, BMP, CBC ####[address] [address] [facility] Estimated GFR 40.823 mL/Min Normal The [facility] Comment on above: Performed By: #### H S TROP, MG, BMP, CBC ####[place] [address] Glucose [Mass/Vol] 163 mg/dL High 70-100 The [facility] Comment on above: Result Comment: [place] Glucose Reference Range is dependent on time and content of last meal. Glucose of more than 200 mg/dL in a nonstressed, ambulatory subject supports the diagnosis of Diabetes Mellitus. ADA recommended reference range Performed By: #### H S TROP, MG, BMP, CBC ####[address] Potassium [Moles/Vol] 3.4 mmol/L Low 3.5-5.1 The [facility] Comment on above: Performed By: #### H S TROP, MG, BMP, CBC ####[address] Sodium [Moles/Vol] 141 mmol/L Normal 136-145 [facility] Comment on above: Performed By: #### H S TROP, MG, BMP, CBC ####[address] Urea nitrogen [Mass/Vol] 24 mg/dL Normal 7-25 [facility] Comment on above: Performed By: #### H S TROP, MG, BMP, CBC ####[address] Complete Blood Count Auto Di ffon 03-01-2024 Basophils (Bld) [#/Vol] 0.1 10*3/uL Normal 0.0-0.2 The [facility] Comment on above: Result Comment: PERF ORMED BY:[address] [place], [place] [phone] MEDICAL DIRECTORDOROTHY MENA M.D. Performed By: #### H S TROP, MG, BMP, CBC ####[address] Basophils/100 WBC (Bld) 0.4 % Normal . [facility] Comment on above: Performed By: #### H S TROP, MG, BMP, CBC ####[address] Eosinophils (Bld) [#/Vol] 0.0 10*3/uL Normal 0.0-0.45 [facility] Comment on above: Performed By: #### H S TROP, MG, BMP, CBC ####[address] Eosinophils/100 WBC (Bld) 0.0 % Normal . The [facility] Comment on above: Performed By: #### H S TROP, MG, BMP, CBC ####[address] Erythrocyte distribution width (RBC) [Ratio] 15.0 % Normal 11.9-15.3 The [facility] Comment on above: Performed By: #### H S TROP, MG, BMP, CBC ####[address] Hematocrit (Bld) [Volume fraction] 35.1 % Normal 34.0-46.4 The [facility] Comment on above: Performed By: #### H S TROP, MG, BMP, CBC ####[address] Hemoglobin (Bld) [Mass/Vol] 11.4 g/dL Low 11.8-15.4 The [facility] Comment on above: Performed By: #### H S TROP, MG, BMP, CBC ####[address] Lymphocytes (Bld) [#/Vol] 0.7 10*3/uL Low 1.00-4.8 [facility] Comment on above: Performed By: #### H S TROP, MG, BMP, CBC ####[address] Lymphocytes/100 WBC (Bld) 3.7 % Normal . [facility] Comment on above: Performed By: #### H S TROP, MG, BMP, CBC ####[address] MCH (RBC) [Entitic mass] 27.9 pg Normal 24.7-34.3 [facility] Comment on above: Performed By: #### H S TROP, MG, BMP, CBC ####[address] MCV (RBC) [Entitic vol] 85.8 fL Normal 80-100 [facility] Comment on above: Performed By: #### H S TROP, MG, BMP, CBC ####[address] Mean Corpuscular HGB Conc 32.5 g/dL Normal 32.0-35.0 [facility] Comment on above: Performed By: #### H S TROP, MG, BMP, CBC ####[address] Monocytes (Bld) [#/Vol] 0.8 10*3/uL Normal 0.0-0.8 [facility] Comment on above: Performed By: #### H S TROP, MG, BMP, CBC ####[address] Monocytes/100 WBC (Bld) 3.9 % Normal . [facility] Comment on above: Performed By: #### H S TROP, MG, BMP, CBC ####[address] Neutrophils (Bld) [#/Vol] 18.4 10*3/uL High 1.8-7.7 [facility] Comment on above: Performed By: #### H S TROP, MG, BMP, CBC ####[address] Neutrophils/100 WBC (Bld) 92.0 % Normal . [facility] Comment on above: Performed By: #### H S TROP, MG, BMP, CBC ####[address] NRBC% 0.0 /100{WBC} Normal 0-0.5 The [facility] Comment on above: Performed By: #### H S TROP, MG, BMP, CBC ####[place] [id number] [facility] Platelet mean volume (Bld) [Entitic vol] 7.9 fL Normal 6.3-10.7 The [facility] Comment on above: Performed By: #### H S TROP, MG, BMP, CBC ####[place] [phone] [facility] Platelets (Bld) [#/Vol] 204 10*3/uL Normal 150-450 [facility] Comment on above: Performed By: #### H S TROP, MG, BMP, CBC ####[address] RBC (Bld) [#/Vol] 4.09 10*6/uL Normal 3.60-5.00 The [facility] Comment on above: Performed By: #### H S TROP, MG, BMP, CBC ####[place] [phone] [facility] WBC (Bld) [#/Vol] 20.0 10*3/uL High 3.8-11.6 The [facility] Comment on above: Performed By: #### H S TROP, MG, BMP, CBC ####[place] [phone] [facility] ECG 12 lead ECGon 03-01-2024 ECG 12 lead ECG Normal The [facility] Glucose Poct Glucometerson 1 05-02-2023 Glucose [Mass/Vol] 147 mg/dL Normal The [facility] Comment on above: Result Comment: [facility] Glucose Reference Range is dependent on time and content of last meal. Glucose of more than 200 mg/dL in a nonstressed, ambulatory subject supports the diagnosis of Diabetes Mellitus.PERFORMED BY:[address] [place], [place] [phone] MEDICAL DIRECTORDOROTHY MENA M.D. Performed By: #### G LULS ####Point of Care testing, Commemt1 Glu2: Cleaned Meter Normal The [facility] Comment on above: Result Comment: PERF ORMED BY:[address] [place]YÓscarCecyR[place], [place] [phone] MEDICAL DIRECTORDOROTHY MENA M.D. Performed By: #### G LULS ####Point of Care testing, Glucose [Mass/Vol] 178 mg/dL Normal [facility] Comment on above: Result Comment: [place] om Glucose Reference Range is dependent on time and content of last meal. Glucose of more than 200 mg/dL in a nonstressed, ambulatory subject supports the diagnosis of Diabetes Mellitus. Performed By: #### G LULS ####Point of Care testing, Commemt1 Glu2: Cleaned Meter Normal [facility] Comment on above: Result Comment: PERF ORMED BY:[address] [place], [place] [phone] MEDICAL DIRECTORMOBRIANNA MENA M.D. Performed By: #### G LULS ####Point of Care testing, Glucose [Mass/Vol] 153 mg/dL Normal [facility] Comment on above: Result Comment: [place] om Glucose Reference Range is dependent on time and content of last meal. Glucose of more than 200 mg/dL in a nonstressed, ambulatory subject supports the diagnosis of Diabetes Mellitus. Performed By: #### G LULS ####Point of Care testing, Magnesiumon 03-01-2024 Magnesium [Mass/Vol] 1.4 mg/dL Low 1.9-2.7 [facility] Comment on above: Result Comment: PERF ORMED BY:[address] [place], [place] [phone] MEDICAL DIRECTORDOROTHY MENA M.D. Performed By: #### H S TROP, MG, BMP, CBC ####[address] [address] [facility] Magnesium [Mass/volume] in S cait or PlasmaOrdered By: Clarence Matias on 03-01-2024 Magnesium [Mass/Vol] Magnesium [Mass/vol ume] in Serum or Plasma Low 1.9-2.7 [facility] Troponin I High Sensitivityo n 03-01-2024 Troponin I High Sensitivity 149.6 pg/mL Off scale high 0.0-15.0 [facility] Comment on above: Result Comment: Crit ical Result : Called to and read back by: PRECIOUS DOUGLAS at: 03/01/2024 14:00:35 by:MLGPERFORMED BY:[address] [place], [place] [phone] MEDICAL DIRECTORDOROTHY MENA M.D. Performed By: #### H S TROP ####[place] [place] [address] [facility] Troponin I High Sensitivity 205.3 pg/mL Off scale high 0.0-15.0 [facility] Comment on above: Result Comment: Crit ical Result : Called to and read back by: APOLLO STUBBS at: 03/01/2024 06:38:06 by:DHPERFORMED BY:[address] [place], [place] [phone] MEDICAL DIRECTORDOROTHY MENA M.D. Performed By: #### H S TROP, MG, BMP, CBC ####[address] [address] [facility] XR chest 2V*on 03-01-2024 XR chest 2V* Normal [facility] Appearance of UrineOrdered B y: Anderson Gould on 02-29-2024 Appearance (U) Urine appearance Abnormal Clear [facility] Arterial Blood Gason 024 ABG Base Excess 5.5 mmol/L High -3.0-3.0 The [facility] Comment on above: Performed By: #### A BG ####Point of Care testing, ABG Frac Inspired O2 100 % Normal [facility] Comment on above: Performed By: #### A BG ####Point of Care testing, ABG Oxygen Content 8.7 mmol/L Normal 6.6-9.7 [facility] Comment on above: Performed By: #### A BG ####Point of Care testing, ABG Oxygen Saturation 99.1 % Normal 95.0-100.0 [facility] Comment on above: Performed By: #### A BG ####Point of Care testing, ABG PCO2 51.0 mm[Hg] Off scale high 35.0-45.0 The [facility] Comment on above: Performed By: #### A BG ####Point of Care testing, ABG PH 7.41 Normal 7.35-7.45 [facility] Comment on above: Performed By: #### A BG ####Point of Care testing, ABG PO2 162.2 mm[Hg] Off scale high 80.0-100.0 The [facility] Comment on above: Performed By: #### A BG ####Point of Care testing, Respiratory Critical Normal [facility] Comment on above: Result Comment: Crit ical Value called on: 02/29/2024 at 17:56PERFORMED BY:[facility] [place], [place] [phone] MEDICAL DIRECTORDOROTHY MENA M.D. Performed By: #### A BG ####Point of Care testing, VBG Draw Site Right Brachial Normal The [facility] Comment on above: Performed By: #### A BG ####Point of Care testing, Arterial Blood GasOrdered By : Anderson Gould on 02-29-2024 CO2 [Moles/Vol] 32.9 mmol/L High 23.0-27.0 [facility] Comment on above: Performed By: #### A BG ####Point of Care testing, HCO3 (Bld) [Moles/Vol] 31.4 mmol/L High 23.0-29.0 [facility] Comment on above: Performed By: #### A BG ####Point of Care testing, B-Type Natriuretic Peptideon 02-29-2024 Natriuretic peptide B (Bld) [Mass/Vol] 77.0 pg/mL Normal 5-100 [facility] Comment on above: Result Comment: PERF ORMED BY:[address] [place], [place] [phone] MEDICAL DIRECTORDOROTHY MENA M.D. Performed By: #### C UBLD, LACTIC, CK, HS TROP, BNP, CBC, PT, BMP ####[place] [phone] [facility] Bacteria [Presence] in Urine by AutomatedOrdered By: Anderson Gould on 02-29-2024 Bacteria Auto Ql (U) Bacteria [Presence] in Urine by Automated High None Seen [facility] Basic Metabolic Panelon 02-05 Anion gap [Moles/Vol] 13.4 mmol/L Normal 6.0-15.0 [facility] e [facility] Comment on above: Performed By: #### C UBLD, LACTIC, CK, HS TROP, BNP, CBC, PT, BMP ####[address] Calcium [Mass/Vol] 8.8 mg/dL Normal 8.6-10.3 [facility] Comment on above: Performed By: #### C UBLD, LACTIC, CK, HS TROP, BNP, CBC, PT, BMP ####[address] Chloride [Moles/Vol] 97 mmol/L Low 98-107 [facility] Comment on above: Performed By: #### C UBLD, LACTIC, CK, HS TROP, BNP, CBC, PT, BMP ####[place] [phone] [facility] CO2 [Moles/Vol] 34.4 mmol/L High 21.0-31.0 [facility] Comment on above: Performed By: #### C UBLD, LACTIC, CK, HS TROP, BNP, CBC, PT, BMP ####[place] [phone] [facility] Creatinine [Mass/Vol] 1.15 mg/dL Normal 0.60-1.20 [facility] Comment on above: Performed By: #### C UBLD, LACTIC, CK, HS TROP, BNP, CBC, PT, BMP ####[place] [place] [address] [facility] Creatinine Clr Calc Pharmacy 48.78 Normal [facility] Comment on above: Result Comment: PERF ORMED BY:[address] HERNÁNDEZWH[place], [place] [phone] MEDICAL DIRECTORDOROTHY MENA M.D. Performed By: #### C UBLD, LACTIC, CK, HS TROP, BNP, CBC, PT, BMP ####[address] [address] [facility] Estimated GFR 51.248 mL/Min Normal [facility] Comment on above: Performed By: #### C UBLD, LACTIC, CK, HS TROP, BNP, CBC, PT, BMP ####[place] [phone] [facility] Glucose [Mass/Vol] 191 mg/dL High 70-100 [facility] Comment on above: Result Comment: [place] Glucose Reference Range is dependent on time and content of last meal. Glucose of more than 200 mg/dL in a nonstressed, ambulatory subject supports the diagnosis of Diabetes Mellitus. ADA recommended reference range Performed By: #### C UBLD, LACTIC, CK, HS TROP, BNP, CBC, PT, BMP ####[address] [address] [facility] Potassium [Moles/Vol] 3.8 mmol/L Normal 3.5-5.1 [facility] Comment on above: Performed By: #### C UBLD, LACTIC, CK, HS TROP, BNP, CBC, PT, BMP ####[address] [address] [facility] Sodium [Moles/Vol] 141 mmol/L Normal 136-145 [facility] Comment on above: Performed By: #### C UBLD, LACTIC, CK, HS TROP, BNP, CBC, PT, BMP ####[place] [phone] [facility] Urea nitrogen [Mass/Vol] 15 mg/dL Normal 7-25 [facility] Comment on above: Performed By: #### C UBLD, LACTIC, CK, HS TROP, BNP, CBC, PT, BMP ####[address] Bilirubin Test strip Ql (U)O rdered By: Anderson Gould on 02-29-2024 Bilirubin Ql (U) Bilirubin.total [Presence] in Urine by Test strip Negative [facility] Blood Cultureon 02-29-2024 Bacteria identified Cx Nom (Bld) NO GROWTH 5 DAYS PERFORMED BY: [place] [address] PATHOLOGIST IMMIGRATION OFFICER DOROTHY MENA M.D. Normal [facility] Comment on above: Performed By: #### C UBLD, LACTIC, CK, HS TROP, BNP, CBC, PT, BMP ####[address] Bacteria identified Cx Nom (Bld) NO GROWTH 5 DAYS PERFORMED BY: [place] [address] PATHOLOGIST IMMIGRATION OFFICER DOROTHY MENA M.D. Normal [facility] Comment on above: Performed By: #### C UBLD, LACTIC, CK, HS TROP, BNP, CBC, PT, BMP ####[place] [phone] [facility] COVID Cepheid NegativeOrdere d By: Anderson Gould on 02-29-2024 SARS-CoV-2 (COVID-19) Ab IA Ql COVID Cepheid Negative [facility] Comment on above: This is a duplicate Cepheid Xpert Xpress CoV-2/Flu/RSV Plus RNA by RT-PCR result to be used for statistical tracking purpose only. SARS-CoV-2 (COVID-19) RNA MITCHELL+probe Ql (Unsp spec) COVID Cepheid Negative [facility] COVID-19 / Flu A/B / RSV PCR on 02-29-2024 SARS-CoV-2 (COVID-19) RNA MITCHELL+probe Ql (Unsp spec) Normal [facility] Comment on above: Performed By: #### C OVID19 FLU RSV, CEPHEID NEG ####[place] [phone] [facility] Cepheid COVID PCR Negativeon 02-29-2024 SARS-CoV-2 (COVID-19) RNA MITCHELL+probe Ql (Unsp spec) Negative Normal Negative [facility] Comment on above: Result Comment: This is a duplicate Cepheid Xpert Xpress CoV-2/Flu/RSV Plus RNA by RT-PCR result to be used for statistical tracking purpose only.PERFORMED BY:[address] [place], [place] [phone] MEDICAL DIRECTORDOROTHY MENA M.D. Performed By: #### C OVID19 FLU RSV, CEPHEID NEG ####[address] Color Auto (U)Ordered By: Daniel Gould on 02-29-2024 Color (U) Color of Urine by Auto Yellow [facility] Complete Blood Count Auto Di ffon 02-29-2024 Basophils (Bld) [#/Vol] 0.1 10*3/uL Normal 0.0-0.2 [facility] Comment on above: Result Comment: PERF ORMED BY:[address] [place], [place] [phone] MEDICAL DIRECTORDOROTHY MENA M.D. Performed By: #### C UBLD, LACTIC, CK, HS TROP, BNP, CBC, PT, BMP ####[place] [phone] [facility] Basophils/100 WBC (Bld) 0.3 % Normal . [facility] Comment on above: Performed By: #### C UBLD, LACTIC, CK, HS TROP, BNP, CBC, PT, BMP ####[address] Eosinophils (Bld) [#/Vol] 0.1 10*3/uL Normal 0.0-0.45 [facility] Comment on above: Performed By: #### C UBLD, LACTIC, CK, HS TROP, BNP, CBC, PT, BMP ####[address] Eosinophils/100 WBC (Bld) 0.4 % Normal . [facility] Comment on above: Performed By: #### C UBLD, LACTIC, CK, HS TROP, BNP, CBC, PT, BMP ####[address] Erythrocyte distribution width (RBC) [Ratio] 14.7 % Normal 11.9-15.3 [facility] Comment on above: Performed By: #### C UBLD, LACTIC, CK, HS TROP, BNP, CBC, PT, BMP ####[address] Hematocrit (Bld) [Volume fraction] 38.7 % Normal 34.0-46.4 [facility] Comment on above: Performed By: #### C UBLD, LACTIC, CK, HS TROP, BNP, CBC, PT, BMP ####[address] Hemoglobin (Bld) [Mass/Vol] 12.7 g/dL Normal 11.8-15.4 [facility] Comment on above: Performed By: #### C UBLD, LACTIC, CK, HS TROP, BNP, CBC, PT, BMP ####[address] Lymphocytes (Bld) [#/Vol] 1.0 10*3/uL Normal 1.00-4.8 [facility] [facility] Comment on above: Performed By: #### C UBLD, LACTIC, CK, HS TROP, BNP, CBC, PT, BMP ####[address] Lymphocytes/100 WBC (Bld) 5.4 % Normal . [facility] Comment on above: Performed By: #### C UBLD, LACTIC, CK, HS TROP, BNP, CBC, PT, BMP ####[address] MCH (RBC) [Entitic mass] 27.9 pg Normal 24.7-34.3 [facility] Comment on above: Performed By: #### C UBLD, LACTIC, CK, HS TROP, BNP, CBC, PT, BMP ####[address] MCV (RBC) [Entitic vol] 85.0 fL Normal 80-100 [facility] Comment on above: Performed By: #### C UBLD, LACTIC, CK, HS TROP, BNP, CBC, PT, BMP ####[address] Mean Corpuscular HGB Conc 32.8 g/dL Normal 32.0-35.0 [facility] Comment on above: Performed By: #### C UBLD, LACTIC, CK, HS TROP, BNP, CBC, PT, BMP ####[address] Monocytes (Bld) [#/Vol] 0.6 10*3/uL Normal 0.0-0.8 [facility] Comment on above: Performed By: #### C UBLD, LACTIC, CK, HS TROP, BNP, CBC, PT, BMP ####[address] Monocytes/100 WBC (Bld) 19.81 % Normal 0.00-20.00 [facility] Comment on above: Performed By: #### C UBLD, LACTIC, CK, HS TROP, BNP, CBC, PT, BMP ####[address] Monocytes/100 WBC (Bld) 3.5 % Normal . [facility] Comment on above: Performed By: #### C UBLD, LACTIC, CK, HS TROP, BNP, CBC, PT, BMP ####[address] Neutrophils (Bld) [#/Vol] 15.8 10*3/uL High 1.8-7.7 [facility] Comment on above: Performed By: #### C UBLD, LACTIC, CK, HS TROP, BNP, CBC, PT, BMP ####[address] Neutrophils/100 WBC (Bld) 90.4 % Normal . [facility] Comment on above: Performed By: #### C UBLD, LACTIC, CK, HS TROP, BNP, CBC, PT, BMP ####[address] NRBC% 0.0 /100{WBC} Normal 0-0.5 [facility] Comment on above: Performed By: #### C UBLD, LACTIC, CK, HS TROP, BNP, CBC, PT, BMP ####[address] Platelet mean volume (Bld) [Entitic vol] 7.7 fL Normal 6.3-10.7 [facility] Comment on above: Performed By: #### C UBLD, LACTIC, CK, HS TROP, BNP, CBC, PT, BMP ####[address] Platelets (Bld) [#/Vol] 247 10*3/uL Normal 150-450 [facility] Comment on above: Performed By: #### C UBLD, LACTIC, CK, HS TROP, BNP, CBC, PT, BMP ####[address] RBC (Bld) [#/Vol] 4.56 10*6/uL Normal 3.60-5.00 The [facility] Comment on above: Performed By: #### C UBLD, LACTIC, CK, HS TROP, BNP, CBC, PT, BMP ####[address] WBC (Bld) [#/Vol] 17.5 10*3/uL High 3.8-11.6 [facility] Comment on above: Performed By: #### C UBLD, LACTIC, CK, HS TROP, BNP, CBC, PT, BMP ####[place] [address] [facility] Creatine Kinaseon 02-29-2024 CK [Catalytic activity/Vol] 266 U/L High 30-223 [facility] Comment on above: Performed By: #### C UBLD, LACTIC, CK, HS TROP, BNP, CBC, PT, BMP ####[address] [place] [address] [facility] Creatine kinase [Enzymatic a ctivity/volume] in Serum or PlasmaOrdered By: Anderson Gould on 02-29-2024 CK [Catalytic activity/Vol] Creatine kinase [Enzymatic activity/volume] in Serum or Plasma High 30-223 [facility] Dipstick and Microscopicon 1 05-01-2023 Appearance (U) Cloudy Critically abnormal Clear [facility] Comment on above: Order Comment: Name Collection Type:: Straight Catheter Performed By: #### A DDONUAPLUS, CUU ####[address] [place] [address] [facility] Bacteria,Urine 2+ High None Seen The [facility] Comment on above: Order Comment: Name Collection Type:: Straight Catheter Performed By: #### A DDONUAPLUS, CUU ####[address] [place] [address] [place] Bilirubin,Urine Negative Normal Negative The [facility] Comment on above: Order Comment: Name Collection Type:: Straight Catheter Performed By: #### A DDONUAPLUS, CUU ####[address] [address] [facility] Color (U) Light-Yellow Normal Yellow [facility] Comment on above: Order Comment: Name Collection Type:: Straight Catheter Performed By: #### A DDONUAPLUS, CUU ####[address] [place] [address] [place] Glucose Ql (U) Normal Normal Normal [facility] Comment on above: Order Comment: Name Collection Type:: Straight Catheter Performed By: #### A DDONUAPLUS, CUU ####[address] [place] [address] [place] Hyaline Casts,Urine None Normal 0-8 [facility] Comment on above: Order Comment: Name Collection Type:: Straight Catheter Performed By: #### A DDONUAPLUS, CUU ####[address] [address] [facility] Ketones Ql (U) Negative Normal Negative [facility] Comment on above: Order Comment: Name Collection Type:: Straight Catheter Performed By: #### A DDONUAPLUS, CUU ####[address] [address] [facility] Leukocyte esterase Test strip Ql (U) 4+ High Negative [facility] Comment on above: Order Comment: Name Collection Type:: Straight Catheter Performed By: #### A DDONUAPLUS, CUU ####[address] [address] [facility] Mucus,Urine Rare Normal [facility] Comment on above: Order Comment: Name Collection Type:: Straight Catheter Result Comment: PERF ORMED BY:[place] [address] [place] [id number] MEDICAL DIRECTORDOROTHY MENA M.D. Performed By: #### A DDONUAPLUS, CUU ####[address] [address] [facility] Nitrite,Urine Positive High Negative The [facility] Comment on above: Order Comment: Name Collection Type:: Straight Catheter Performed By: #### A DDONUAPLUS, CUU ####[address] [address] [facility] Occult Blood,Urine 1+ High Negative [facility] Comment on above: Order Comment: Name Collection Type:: Straight Catheter Result Comment: PERF ORMED BY:[address] [address] [place] [id number] MEDICAL DIRECTORDOROTHY MENA M.D. Performed By: #### A DDONUAPLUS, CUU ####[address] [address] [facility] pH (U) 6.5 [pH] Normal 5.0-9.0 [facility] Comment on above: Order Comment: Name Collection Type:: Straight Catheter Performed By: #### A DDONUAPLUS, CUU ####[address] [address] [facility] Protein (U) [Mass/Vol] 70 mg/dL High Negative Th e [facility] Comment on above: Order Comment: Name Collection Type:: Straight Catheter Performed By: #### A DDONUAPLUS, CUU ####[address] [address] [facility] RBC,Urine 10 [HPF] High 0-4 [facility] Comment on above: Order Comment: Name Collection Type:: Straight Catheter Performed By: #### A DDONUAPLUS, CUU ####[address] [address] [facility] Specificy [place],Urine 1.009 Normal 1.001-1.03 0 [facility] Comment on above: Order Comment: Name Collection Type:: Straight Catheter Performed By: #### A DDONUAPLUS, CUU ####[address] [address] [facility] Squamous Epithelial Cell,Urine 1 [HPF] Normal 0-2 [facility] Comment on above: Order Comment: Name Collection Type:: Straight Catheter Performed By: #### A DDONUAPLUS, CUU ####[address] [address] [facility] Urobilinogen,Urine Normal Normal Normal [facility] Comment on above: Order Comment: Name Collection Type:: Straight Catheter Performed By: #### A DDONUAPLUS, CUU ####[address] [address] [facility] WBC CLUMP, Urine Many High None Seen The [facility] Comment on above: Order Comment: Name Collection Type:: Straight Catheter Performed By: #### A DDONUAPLUS, CUU ####[address] [address] [facility] WBC,Urine Innumerable High 0-4 [facility] Comment on above: Order Comment: Name Collection Type:: Straight Catheter Performed By: #### A DDONUAPLUS, CUU ####[facility] [id number] [id number] [facility] ECG 12 lead ECGon 02-29-2024 ECG 12 lead ECG Normal [facility] ECG 12 lead ECG Normal [facility] ECG 12 lead ECG Normal [facility] ECG 12 lead ECG Normal [facility] Epithelial cells.squamous [# /area] in Urine sediment by Automated countOrdered By: Anderson Gould on 02-29-2024 Epithelial cells.squamous Auto (Urine sed) [#/Area] Epithelial cells.squamous [#/area] in Urine sediment by Automated count 0-2 [facility] Erythrocytes [#/area] in Uri ne sediment by Automated countOrdered By: Anderson Gould on 02-29-2024 RBC Auto (Urine sed) [#/Area] Erythrocytes [#/area] in Urine sediment by Automated count High 0-4 [facility] Glucose [Mass/volume] in Uri ne by Test stripOrdered By: Anderson Gould on 02-29-2024 Glucose Test strip (U) [Mass/Vol] Glucose [Mass/volume] in Urine by Test strip Normal [facility] Hemoglobin Test strip Ql (U) Ordered By: Anderson Gould on 02-29-2024 Hemoglobin Ql (U) Hemoglobin [Presence ] in Urine by Test strip High Negative [facility] Hyaline casts [#/area] in Ur ine sediment by Automated countOrdered By: Anderson Gould on 02-29-2024 Hyaline casts Auto (Urine sed) [#/Area] Hyaline casts [#/area] in Urine sediment by Automated count 0-8 [facility] INR in Platelet poor plasma by Coagulation assayOrdered By: Anderson Gould on 02-29-2024 INR Coag (PPP) [Relative time] INR in Platelet poor plasma by Coagulation assay [facility] Comment on above: INR Therapeutic Rang e A) Pre- and Peroperative OAT started two weeks before surgery. NOT HIP SURGERY: 1.5 - 2.5 HIP SURGERY: 2 - 3B) Primary and secondary prevention of venous THROMBOSIS: 2 - 3C) Active venous thrombosis, pulmonary embolismand prevention of recurrent venous thrombosis: 2 - 3D) Prevention of arterial thromboembolismincluding patients with mechanical heart valves: 3 - 4.5 Ketones Test strip Ql (U)Ord ered By: Anderson Gould on 02-29-2024 Ketones Ql (U) Ketones [Presence] i n Urine by Test strip Negative [facility] Laboratory - Microbiology an d Antimicrobial susceptibilityOrdered By: Anderson Gould on 02-29-2024 Bacteria identified Cx Nom (Bld) NO GROWTH 5 DAYS [facility] Bacteria identified Cx Nom (Bld) NO GROWTH 5 DAYS [facility] Lactate [Moles/volume] in Se rum or PlasmaOrdered By: Anderson Gould on 02-29-2024 Lactate [Moles/Vol] Lactate [Moles/volum e] in Serum or Plasma Critically high 0.5-2.2 [facility] Comment on above: Critical Result : Ca lled to and read back by: APOLLO STUBBS at: 02/29/2024 22:53:47 by: Lactic Acidon 02-29-2024 Lactate [Moles/Vol] 2.2 mmol/L Off scale high 0.5-2.2 [facility] Comment on above: Result Comment: Crit ical Result : Called to and read back by: DIXON FELICIANO at: 02/29/2024 18:29:55 by:[id number] BY:[address] [address] [place], [place] [phone] MEDICAL DIRECTORDOROTHY MENA M.D. Performed By: #### C UBLD, LACTIC, CK, HS TROP, BNP, CBC, PT, BMP ####[address] [address] [facility] Lactic Acid Reflexon Lactic Acid Reflex 2.4 mmol/L Off scale high 0.5-2.2 [facility] Comment on above: Result Comment: Crit ical Result : Called to and read back by: APOLLO STUBBS at: 02/29/2024 22:53:47 by:DHPERFORMED BY:[address] [address] [place], [place] [phone] MEDICAL DIRECTORMOHAMED M EL-FAKHARANY M.D. Performed By: #### L ACTIC RFX ####[facility] [address] [facility] Leukocyte clumps [Presence] in Urine by AutomatedOrdered By: Anderson Gould on 02-29-2024 Leukocyte clumps Auto Ql (U) Leukocyte clumps [Presence] in Urine by Automated High None Seen [facility] Leukocyte esterase [Presence ] in Urine by Test stripOrdered By: Anderson Gould on 02-29-2024 Leukocyte esterase Test strip Ql (U) Leukocyte esterase [Presence] in Urine by Test strip High Negative [facility] Leukocytes [#/area] in Urine sediment by Automated countOrdered By: Anderson Gould on 02-29-2024 WBC Auto (Urine sed) [#/Area] Leukocytes [#/area] in Urine sediment by Automated count High 0-4 [facility] Monocyte distribution width [Entitic volume] in Blood by AutomatedOrdered By: Anderson Gould on 02-29-2024 Monocyte distribution width Auto (Bld) [Entitic vol] Monocyte distribution width [Entitic volume] in Blood by Automated 0.00-20.00 [facility] Mucus [Presence] in Urine by AutomatedOrdered By: Anderson Gould on 02-29-2024 Mucus Auto Ql (U) Mucus [Presence] in Urine by Automated [facility] Natriuretic peptide B [Mass/ Vol]Ordered By: Anderson Gould on 02-29-2024 Natriuretic peptide B (Bld) [Mass/Vol] BNP ser/plas 5-100 [facility] Nitrite Test strip Ql (U)Ord ered By: Anderson Gould on 02-29-2024 Nitrite Ql (U) Nitrite [Presence] i n Urine by Test strip High Negative [facility] No Panel InformationOrdered By: Anderson Gould on 02-29-2024 NO GROWTH 5 DAYS [facility] Arterial Blood Base Excess 5.5 mmol/L High -3.0-3.0 [facility] Arterial Blood Oxygen Content 8.7 mmol/L 6.6-9.7 [facility] Arterial Blood Oxygen Saturation 99.1 % 95.0-100.0 [facility] Arterial Blood Partial Pressure CO2 51.0 mm[Hg] Critically high 35.0-45.0 [facility] Arterial Blood Partial Pressure O2 162.2 mm[Hg] Critically high 80.0-100.0 [facility] Arterial Blood pH 7.41 7.35-7.45 [facility] Blood Gas Critical Value See comment [facility] Comment on above: Critical Value lopez d on: 02/29/2024 at 17:56 Blood Gas Sample Site Right brachial [facility] FiO2 100 % [facility] 7.41 7.35-7.45 [facility] 51.0 mm[Hg] Critically high 35.0-45.0 [facility] 162.2 mm[Hg] Critically high 80.0-100.0 [facility] 31.4 mmol/L High 23.0-29.0 [facility] 5.5 mmol/L High -3.0-3.0 [facility] 99.1 % 95.0-100.0 [facility] 8.7 mmol/L 6.6-9.7 [facility] 32.9 mmol/L High 23.0-27.0 [facility] 100 % [facility] Right brachial [facility] See comment [facility] NO GROWTH 5 DAYS [facility] Protein Test strip (U) [Mass /Vol]Ordered By: Anderson Gould on 02-29-2024 Protein (U) [Mass/Vol] Protein [Mass/vol ume] in Urine by Test strip High Negative [facility] Prothrombin Time INRon 02-28 INR Coag (PPP) [Relative time] 1.1 {INR} Normal [facility] Comment on above: Result Comment: INR Therapeutic Range A) Pre- and Peroperative OAT started two weeks before surgery. NOT HIP SURGERY: 1.5 - 2.5 HIP SURGERY: 2 - 3 B) Primary and secondary prevention of venous THROMBOSIS: 2 - 3 C) Active venous thrombosis, pulmonary embolism and prevention of recurrent venous thrombosis: 2 - 3 D) Prevention of arterial thromboembolism including patients with mechanical heart valves: 3 - 4.5PERFORMED BY:[id number] [place], [place] [phone] MEDICAL DIRECTORDOROTHY MENA M.D. Performed By: #### C UBLD, LACTIC, CK, HS TROP, BNP, CBC, PT, BMP ####[facility] [place] [address] [facility] PT Coag (PPP) [Time] 12.2 s Normal 9.0-12.9 [facility] Comment on above: Result Comment: A he matocrit value greater than 55% may lead to inaccurate results in coagulation testing. Patients having hematocrit values >55% require a special collection tube for coagulation studies. Please contact the laboratory at [phone] for redraw instructions. Performed By: #### C UBLD, LACTIC, CK, HS TROP, BNP, CBC, PT, BMP ####[facility] [place] [address] [facility] Prothrombin time (PT)Ordered By: Anderson Gould on 02-29-2024 PT Coag (PPP) [Time] Prothrombin time (PT) 9.0- 12.9 [facility] Comment on above: A hematocrit value g reater than 55% may lead to inaccurate results in coagulation testing. Patients having hematocrit values >55% require a special collection tube for coagulation studies. Please contact the laboratory at [phone] for redraw instructions. Respiratory specimen influen za A virus, influenza B virus, respiratory syncytical virOrdered By: Anderson Gould on 02-29-2024 SARS-CoV-2 (COVID-19) RNA MITCHELL+probe Ql (Unsp spec) Respiratory specimen influenza A virus, influenza B virus, respiratory syncytical vir [facility] Specific gravity Test strip (U) [Rel density]Ordered By: Anderson Gould on 02-29-2024 Specific gravity (U) [Rel density] Specific gravity of Urine by Test strip 1.001-1.03 0 [facility] Troponin I High Sensitivityo n 02-29-2024 Troponin I High Sensitivity 122.9 pg/mL Off scale high 0.0-15.0 [facility] Comment on above: Result Comment: Crit ical Result : Called to and read back by: PAMELA CHOUDHURY at: 02/29/2024 19:36:14 by:[id number] BY:[facility] [place], [place] [phone] MEDICAL DIRECTORDOROTHY MENA M.D. Performed By: #### C UBLD, LACTIC, CK, HS TROP, BNP, CBC, PT, BMP ####[facility] [id number] [place] [address] [facility] Urine Cultureon 02-29-2024 Bacteria identified Cx Nom (U) Normal [facility] Comment on above: Performed By: #### A DDONUAPLUS, CUU ####[facility] [id number] [place] [address] [facility] Urine cultureOrdered By: Corina Gould on 02-29-2024 Bacteria identified Cx Nom (U) Escherichia coli Abnormal [facility] Escherichia coli Escherichia coli Abnormal [facility] Urobilinogen Test strip (U) [Mass/Vol]Ordered By: Anderson Gould on 02-29-2024 Urobilinogen (U) [Mass/Vol] Urobilinogen [Mass/volume] in Urine by Test strip Normal [facility] XR chest 1V portableon 02-28 XR chest 1V portable Normal [facility] pH Test strip (U)Ordered By: Anderson Gould on 02-29-2024 pH (U) pH of Urine by Test strip 5.0-9.0 [facility] Arterial Blood Gason 024 ABG Base Excess 7.2 mmol/L High -3.0-3.0 [facility] Comment on above: Performed By: #### A BG ####Point of Care testing, ABG Frac Inspired O2 40 % Normal [facility] Comment on above: Performed By: #### A BG ####Point of Care testing, ABG Liter Flow 5 Normal [facility] Comment on above: Performed By: #### A BG ####Point of Care testing, ABG Oxygen Content 6.9 mmol/L Normal 6.6-9.7 [facility] Comment on above: Performed By: #### A BG ####Point of Care testing, ABG Oxygen Saturation 89.9 % Low 95.0-100.0 [facility] Comment on above: Performed By: #### A BG ####Point of Care testing, ABG PCO2 55.2 mm[Hg] Off scale high 35.0-45.0 [facility] Comment on above: Performed By: #### A BG ####Point of Care testing, ABG PH 7.40 Normal 7.35-7.45 [facility] Comment on above: Performed By: #### A BG ####Point of Care testing, ABG PO2 55.5 mm[Hg] Low 80.0-100.0 [facility] Comment on above: Performed By: #### A BG ####Point of Care testing, Oxygen Device Nasal Cannula Normal [facility] Comment on above: Performed By: #### A BG ####Point of Care testing, Respiratory Critical Normal [facility] Comment on above: Result Comment: Crit ical Value called on: 01/30/2024 at 13:53PERFORMED BY:[place] [id number] [place], [place] [phone] MEDICAL DIRECTORDOROTHY MENA M.D. Performed By: #### A BG ####Point of Care testing, VBG Draw Site Right Radial Normal [facility] Comment on above: Performed By: #### A BG ####Point of Care testing, Arterial Blood GasOrdered By : Kaleigh Nation on 01-30-2024 CO2 [Moles/Vol] 35.2 mmol/L High 23.0-27.0 [facility] Comment on above: Performed By: #### A BG ####Point of Care testing, HCO3 (Bld) [Moles/Vol] 33.5 mmol/L High 23.0-29.0 [facility] Comment on above: Performed By: #### A BG ####Point of Care testing, No Panel InformationOrdered By: Kaleigh Nation on 01-30-2024 Arterial Blood Base Excess 7.2 mmol/L High -3.0-3.0 [facility] Arterial Blood Oxygen Content 6.9 mmol/L 6.6-9.7 [facility] Arterial Blood Oxygen Saturation 89.9 % Low 95.0-100.0 [facility] Arterial Blood Partial Pressure CO2 55.2 mm[Hg] Critically high 35.0-45.0 [facility] Arterial Blood Partial Pressure O2 55.5 mm[Hg] Low 80.0-100.0 [facility] Arterial Blood pH 7.40 7.35-7.45 [facility] Blood Gas Critical Value See comment [facility] Comment on above: Critical Value lopez d on: 01/30/2024 at 13:53 Blood Gas Liter Flow 5 L/min [facility] Blood Gas Sample Site Right radial [facility] FiO2 40 % [facility] Oxygen Delivery Device Nasal cannula [facility] 7.40 7.35-7.45 [facility] 55.2 mm[Hg] Critically high 35.0-45.0 [facility] 55.5 mm[Hg] Low 80.0-100.0 [facility] 33.5 mmol/L High 23.0-29.0 [facility] 7.2 mmol/L High -3.0-3.0 [facility] 89.9 % Low 95.0-100.0 [facility] 6.9 mmol/L 6.6-9.7 [facility] 35.2 mmol/L High 23.0-27.0 [facility] 40 % [facility] 5 L/min [facility] Right radial [facility] Nasal cannula [facility] See comment [facility] HbA1c HPLC (Bld) [Mass fract ion]on 01-25-2024 HbA1c (Bld) [Mass fraction] Hemoglobin A1c/Hemoglobin.total in Blood by HPLC [facility] A1C with Estimated Average G melissa 01-23-2024 Glucose [Mass/Vol] 120 mg/dL Normal [facility] Comment on above: Result Comment: PERF ORMED BY:[facility] [place] [phone] MEDICAL DIRECTORDOROTHY MENA M.D. Performed By: #### L IPID, CMP, URMA, T4F, CBC, TSH3, A1C WT eA ####[facility] [place] [id number] [facility] HbA1c (Bld) [Mass fraction] 5.8 % High 4.3-5.6 [facility] Comment on above: Result Comment: Incr eased risk for diabetes: 5.7 - 6.4 diabetes: >6.4 glycemic control for adults with diabetes: <7.0 Performed By: #### L IPID, CMP, URMA, T4F, CBC, TSH3, A1C WT eA ####[facility] [id number] [place] [id number] [facility] Alanine aminotransferase [En zymatic activity/volume] in Serum or PlasmaOrdered By: Neto Arauz on 01-23-2024 ALT [Catalytic activity/Vol] Alanine aminotransferase [Enzymatic activity/volume] in Serum or Plasma 7-52 [facility] Albumin [Mass/volume] in Ser um or Plasma by Bromocresol green (BCG) dye binding methoOrdered By: Neto Arauz on 01-23-2024 Albumin BCG dye [Mass/Vol] Albumin [Mass/volume] in Serum or Plasma by Bromocresol green (BCG) dye binding metho 3.5-5.7 [facility] Alkaline phosphatase [Enzyma tic activity/volume] in Serum or PlasmaOrdered By: Neto Arauz on 01-23-2024 ALP [Catalytic activity/Vol] Alkaline phosphatase [Enzymatic activity/volume] in Serum or Plasma High 34-104 [facility] Aspartate aminotransferase [ Enzymatic activity/volume] in Serum or PlasmaOrdered By: Neto Arauz on 01-23-2024 AST [Catalytic activity/Vol] Aspartate aminotransferase [Enzymatic activity/volume] in Serum or Plasma 13-39 [facility] Basophils Auto (Bld) [#/Vol] Ordered By: Neto Arauz on 01-23-2024 Basophils (Bld) [#/Vol] Automated basophil count 0.0-0.2 [facility] Basophils/100 WBC Auto (Bld) Ordered By: Neto Arauz on 01-23-2024 Basophils/100 WBC (Bld) Automated basophil % . [facility] Bilirubin.total [Mass/volume ] in Serum or PlasmaOrdered By: Neto Arauz on 01-23-2024 Bilirubin [Mass/Vol] Bilirubin.total [Mass/volume] in Serum or Plasma 0.3-1.0 [facility] Blood estimated average gluc ose determination by estimation from glycated hemoglobinOrdered By: Neto Arauz on 01-23-2024 Average glucose Estimated from glycated hemoglobin (Bld) [Mass/Vol] Glucose mean value [Mass/volume] in Blood Estimated from glycated hemoglobin [facility] Calcium [Mass/volume] in Ser um or PlasmaOrdered By: Neto Arauz on 01-23-2024 Calcium [Mass/Vol] Calcium [Mass/volume ] in Serum or Plasma 8.6-10.3 [facility] Carbon dioxide, total [Moles /volume] in Serum or PlasmaOrdered By: Neto rAauz on 01-23-2024 CO2 [Moles/Vol] Carbon dioxide, tota l [Moles/volume] in Serum or Plasma High 21.0-31.0 [facility] Chloride [Moles/volume] in S cait or PlasmaOrdered By: Neto Arauz on 01-23-2024 Chloride [Moles/Vol] Chloride [Moles/vol ume] in Serum or Plasma 98-107 [facility] Cholesterol [Mass/volume] in Serum or PlasmaOrdered By: Neto Arauz on 01-23-2024 Cholesterol [Mass/Vol] Cholesterol [Mass /volume] in Serum or Plasma 140-200 [facility] Comment on above: Chol less than 200 m g/dl low riskChol 201-239 mg/dl borderline riskChol 240 mg/dl and greater high risk Cholesterol in HDL [Mass/vol ume] in Serum or PlasmaOrdered By: Neto Arauz on 01-23-2024 Cholesterol in HDL [Mass/Vol] Serum or plasma high density lipoprotein (HDL) cholesterol measurement 23-92 [facility] Comment on above: HDL CHOL ATP-III CLA SSIFICATION Cardiovascular RiskHDL > or equal to 60 mg/dL LOWHDL < 40 mg/dL HIGH Cholesterol in LDL Calc [Mas s/Vol]Ordered By: Neto Arauz on 01-23-2024 Cholesterol in LDL [Mass/Vol] Cholesterol in LDL [Mass/volume] in Serum or Plasma by calculation 0-100 [facility] Comment on above: LDL ATP III CLASSIFI CATIONLDL less than 100 mg/dL OptimalLDL 100-129 mg/dL Near or above optimalLDL 130-159 mg/dL Borderline highLDL 160-189 mg/dL HighLDL greater than 189 mg/dL Very high Cholesterol in VLDL Calc [Ma ss/Vol]Ordered By: Neto Arauz on 01-23-2024 Cholesterol in VLDL [Mass/Vol] Cholesterol in VLDL [Mass/volume] in Serum or Plasma by calculation [facility] Complete Blood Count Auto Di ffon 01-23-2024 Basophils (Bld) [#/Vol] 0.1 10*3/uL Normal 0.0-0.2 [facility] Comment on above: Result Comment: PERF ORMED BY:[address] [place], [place] [id number] MEDICAL DIRECTORDOROTHY MENA M.D. Performed By: #### L IPID, CMP, URMA, T4F, CBC, TSH3, A1C [facility] eA ####[address] Basophils/100 WBC (Bld) 0.9 % Normal . [facility] Comment on above: Performed By: #### L IPID, CMP, URMA, T4F, CBC, TSH3, A1C [facility] eA ####[address] Eosinophils (Bld) [#/Vol] 0.2 10*3/uL Normal 0.0-0.45 [facility] Comment on above: Performed By: #### L IPID, CMP, URMA, T4F, CBC, TSH3, A1C [facility] eA ####[place] [address] [place] Eosinophils/100 WBC (Bld) 2.9 % Normal . [facility] Comment on above: Performed By: #### L IPID, CMP, URMA, T4F, CBC, TSH3, A1C [facility] eA ####[address] Erythrocyte distribution width (RBC) [Ratio] 14.7 % Normal 11.9-15.3 [facility] Comment on above: Performed By: #### L IPID, CMP, URMA, T4F, CBC, TSH3, A1C [facility] eA ####[address] Hematocrit (Bld) [Volume fraction] 37.0 % Normal 34.0-46.4 [facility] Comment on above: Performed By: #### L IPID, CMP, URMA, T4F, CBC, TSH3, A1C [facility] eA ####[address] Hemoglobin (Bld) [Mass/Vol] 12.1 g/dL Normal 11.8-15.4 [facility] Comment on above: Performed By: #### L IPID, CMP, URMA, T4F, CBC, TSH3, A1C [facility] eA ####[address] Lymphocytes (Bld) [#/Vol] 1.6 10*3/uL Normal 1.00-4.8 [facility] Comment on above: Performed By: #### L IPID, CMP, URMA, T4F, CBC, TSH3, A1C [facility] eA ####[address] Lymphocytes/100 WBC (Bld) 19.4 % Normal . [facility] Comment on above: Performed By: #### L IPID, CMP, URMA, T4F, CBC, TSH3, A1C [facility] eA ####[address] MCH (RBC) [Entitic mass] 28.1 pg Normal 24.7-34.3 [facility] Comment on above: Performed By: #### L IPID, CMP, URMA, T4F, CBC, TSH3, A1C [facility] eA ####[address] MCV (RBC) [Entitic vol] 86.0 fL Normal 80-100 [facility] Comment on above: Performed By: #### L IPID, CMP, URMA, T4F, CBC, TSH3, A1C [facility] eA ####[address] Mean Corpuscular HGB Conc 32.7 g/dL Normal 32.0-35.0 [facility] Comment on above: Performed By: #### L IPID, CMP, URMA, T4F, CBC, TSH3, A1C [facility] eA ####[address] Monocytes (Bld) [#/Vol] 0.6 10*3/uL Normal 0.0-0.8 [facility] Comment on above: Performed By: #### L IPID, CMP, URMA, T4F, CBC, TSH3, A1C [facility] eA ####[address] Monocytes/100 WBC (Bld) 7.7 % Normal . [facility] Comment on above: Performed By: #### L IPID, CMP, URMA, T4F, CBC, TSH3, [address] eA ####[address] Neutrophils (Bld) [#/Vol] 5.7 10*3/uL Normal 1.8-7.7 [facility] Comment on above: Performed By: #### L IPID, CMP, URMA, T4F, CBC, TSH3, A1C [facility] eA ####[address] Neutrophils/100 WBC (Bld) 69.1 % Normal . [facility] Comment on above: Performed By: #### L IPID, CMP, URMA, T4F, CBC, TSH3, A1C [facility] eA ####[address] NRBC% 0.1 /100{WBC} Normal 0-0.5 [facility] Comment on above: Performed By: #### L IPID, CMP, URMA, T4F, CBC, TSH3, A1C [facility] eA ####[address] [address] [facility] Platelet mean volume (Bld) [Entitic vol] 8.1 fL Normal 6.3-10.7 [facility] Comment on above: Performed By: #### L IPID, CMP, URMA, T4F, CBC, TSH3, A1C [facility] eA ####[address] [address] [facility] Platelets (Bld) [#/Vol] 252 10*3/uL Normal 150-450 [facility] Comment on above: Performed By: #### L IPID, CMP, URMA, T4F, CBC, TSH3, A1C [facility] eA ####[address] [address] [facility] RBC (Bld) [#/Vol] 4.30 10*6/uL Normal 3.60-5.00 [facility] Comment on above: Performed By: #### L IPID, CMP, URMA, T4F, CBC, TSH3, A1C [facility] eA ####[address] [address] [facility] WBC (Bld) [#/Vol] 8.3 10*3/uL Normal 3.8-11.6 [facility] Comment on above: Performed By: #### L IPID, CMP, URMA, T4F, CBC, TSH3, A1C [facility] eA ####[address] [address] [facility] Comprehensive Metabolic Pane lelia 01-23-2024 Albumin [Mass/Vol] 4.0 g/dL Normal 3.5-5.7 [facility] Comment on above: Performed By: #### L IPID, CMP, URMA, T4F, CBC, TSH3, A1C [facility] eA ####[address] [place] [address] Albumin/Globulin [Mass ratio] 1.7 {ratio} Normal [facility] Comment on above: Performed By: #### L IPID, CMP, URMA, T4F, CBC, TSH3, A1C [facility] eA ####[place] [id number] [facility] ALP [Catalytic activity/Vol] 157 U/L High 34-104 [facility] Comment on above: Performed By: #### L IPID, CMP, URMA, T4F, CBC, TSH3, A1C WT eA ####[place] [id number] [facility] ALT [Catalytic activity/Vol] 19 U/L Normal 7-52 [facility] Comment on above: Performed By: #### L IPID, CMP, URMA, T4F, CBC, TSH3, A1C WT eA ####[address] Anion gap [Moles/Vol] 12.5 mmol/L Normal 6.0-15.0 [facility] Comment on above: Performed By: #### L IPID, CMP, URMA, T4F, CBC, TSH3, A1C [facility] eA ####[address] AST [Catalytic activity/Vol] 19 U/L Normal 13-39 [facility] Comment on above: Performed By: #### L IPID, CMP, URMA, T4F, CBC, TSH3, A1C [facility] eA ####[address] Bilirubin [Mass/Vol] 0.5 mg/dL Normal 0.3-1.0 [facility] Comment on above: Performed By: #### L IPID, CMP, URMA, T4F, CBC, TSH3, A1C [facility] eA ####[place] [id number] [facility] Calcium [Mass/Vol] 9.3 mg/dL Normal 8.6-10.3 [facility] Comment on above: Performed By: #### L IPID, CMP, URMA, T4F, CBC, TSH3, A1C [facility] eA ####[address] Chloride [Moles/Vol] 98 mmol/L Normal 98-107 [facility] Comment on above: Performed By: #### L IPID, CMP, URMA, T4F, CBC, TSH3, A1C [facility] eA ####[address] CO2 [Moles/Vol] 35.5 mmol/L High 21.0-31.0 [facility] Comment on above: Performed By: #### L IPID, CMP, URMA, T4F, CBC, TSH3, A1C [facility] eA ####[address] Creatinine [Mass/Vol] 1.06 mg/dL Normal 0.60-1.20 [facility] Comment on above: Performed By: #### L IPID, CMP, URMA, T4F, CBC, TSH3, A1C [facility] eA ####[address] Estimated GFR 56.514 mL/Min Normal [facility] Comment on above: Performed By: #### L IPID, CMP, URMA, T4F, CBC, TSH3, A1C [facility] eA ####[place] [id number] [facility] Globulin (S) [Mass/Vol] 2.4 g/dL Normal [facility] Comment on above: Performed By: #### L IPID, CMP, URMA, T4F, CBC, TSH3, A1C [facility] eA ####[place] [id number] [facility] Glucose [Mass/Vol] 118 mg/dL High 70-100 [facility] Comment on above: Result Comment: [place] Glucose Reference Range is dependent on time and content of last meal. Glucose of more than 200 mg/dL in a nonstressed, ambulatory subject supports the diagnosis of Diabetes Mellitus. ADA recommended reference range Performed By: #### L IPID, CMP, URMA, T4F, CBC, TSH3, A1C WT eA ####[place] [address] [place] [id number] [facility] Potassium [Moles/Vol] 4.0 mmol/L Normal 3.5-5.1 [facility] Comment on above: Performed By: #### L IPID, CMP, URMA, T4F, CBC, TSH3, A1C [facility] eA ####[place] [id number] [facility] Protein [Mass/Vol] 6.4 g/dL Normal 6.4-8.9 [facility] Comment on above: Performed By: #### L IPID, CMP, URMA, T4F, CBC, TSH3, A1C WT eA ####[place] [phone] [facility] Sodium [Moles/Vol] 142 mmol/L Normal 136-145 [facility] Comment on above: Performed By: #### L IPID, CMP, URMA, T4F, CBC, TSH3, A1C WT eA ####[place] [phone] [facility] Urea nitrogen [Mass/Vol] 16 mg/dL Normal 7-25 [facility] Comment on above: Performed By: #### L IPID, CMP, URMA, T4F, CBC, TSH3, A1C WT eA ####[place] [phone] [facility] Creatinine [Mass/volume] in Serum or PlasmaOrdered By: Neto Arauz on 01-23-2024 Creatinine [Mass/Vol] Creatinine [Mass/v olume] in Serum or Plasma 0.60-1.20 [facility] Eosinophils Auto (Bld) [#/Vo l]Ordered By: Neto Arauz on 01-23-2024 Eosinophils (Bld) [#/Vol] Automated eosinophil count 0.0-0.45 [facility] Eosinophils/100 WBC Auto (Bl d)Ordered By: Neto Arauz on 01-23-2024 Eosinophils/100 WBC (Bld) Automated eosinophil % . [facility] Erythrocyte distribution wid th Auto (RBC) [Ratio]Ordered By: Neto Arauz on 01-23-2024 Erythrocyte distribution width (RBC) [Ratio] Erythrocyte distribution width [Ratio] by Automated count 11.9-15.3 [facility] Free T4 (Free Thyroxine)on 03-24-2023 Free T4 [Mass/Vol] 0.67 ng/dL Normal 0.61-1.12 [facility] Comment on above: Performed By: #### L IPID, CMP, URMA, T4F, CBC, TSH3, [facility]C [facility] ####[facility] [id number] [place] [address] [facility] Globulin Calc (S) [Mass/Vol] Ordered By: Neto Arauz on 01-23-2024 Globulin (S) [Mass/Vol] Serum globulin measurement by calculation (mass/volume) [facility] Glucose [Mass/volume] in Ser um or PlasmaOrdered By: Neto Arauz on 01-23-2024 Glucose [Mass/Vol] Glucose [Mass/volume ] in Serum or Plasma High 70-100 [facility] Comment on above: ADA recommended refe rence rangeRandom Glucose Reference Range is dependent on time and content of last meal. Glucose of more than 200 mg/dL in a nonstressed, ambulatory subject supports the diagnosis of Diabetes Mellitus. Hematocrit Auto (Bld) [Volum e fraction]Ordered By: Neto Arauz on 01-23-2024 Hematocrit (Bld) [Volume fraction] Hematocrit [Volume Fraction] of Blood by Automated count 34.0-46.4 [facility] Hemoglobin A1c/Hemoglobin.to claudia in BloodOrdered By: Neto Arauz on 01-23-2024 HbA1c (Bld) [Mass fraction] Hemoglobin A1c percentage High 4.3-5.6 [facility] Comment on above: Increased risk for d iabetes: 5.7 - 6.4diabetes: >6.4glycemic control for adults with diabetes: <7.0 Hemoglobin [Mass/volume] in BloodOrdered By: Neto Arauz on 01-23-2024 Hemoglobin (Bld) [Mass/Vol] Hemoglobin [Mass/volume] in Blood 11.8-15.4 [facility] Leukocytes [#/volume] correc hugh for nucleated erythrocytes in Blood by Automated counOrdered By: Neto Arauz on 01-23-2024 WBC corrected for nucl RBC Auto (Bld) [#/Vol] Leukocytes [#/volume] corrected for nucleated erythrocytes in Blood by Automated coun 3.8-11.6 [facility] Lipid Panelon 01-23-2024 Cholesterol [Mass/Vol] 155 mg/dL Normal 140-200 [facility] Comment on above: Result Comment: Chol less than 200 mg/dl low risk Chol 201-239 mg/dl borderline risk Chol 240 mg/dl and greater high risk Performed By: #### L IPID, CMP, URMA, T4F, CBC, TSH3, A1C WT eA ####[facility] [place] [address] [facility] Cholesterol in HDL [Mass/Vol] 66 mg/dL Normal 23-92 [facility] Comment on above: Result Comment: HDL CHOL ATP-III CLASSIFICATION Cardiovascular Risk HDL > or equal to 60 mg/dL LOW HDL < 40 mg/dL HIGH Performed By: #### L IPID, CMP, URMA, T4F, CBC, TSH3, A1C WT eA ####[facility] [place] [address] [facility] Cholesterol.total/Chol esterol in HDL [Mass ratio] 2.3 {ratio} Normal <5.0 [facility] Comment on above: Performed By: #### L IPID, CMP, URMA, T4F, CBC, TSH3, A1C WT eA ####[facility] [place] [address] [facility] LDL Cholesterol,Calculated 67 mg/dL Normal 0-100 [facility] Comment on above: Result Comment: LDL ATP III CLASSIFICATION LDL less than 100 mg/dL Optimal LDL 100-129 mg/dL Near or above optimal LDL 130-159 mg/dL Borderline high LDL 160-189 mg/dL High LDL greater than 189 mg/dL Very high Performed By: #### L IPID, CMP, URMA, T4F, CBC, TSH3, A1C [facility] eA ####[facility] [place] [address] [facility] Triglyceride w/Reflex 110 mg/dL Normal 0-149 [facility] Comment on above: Result Comment: TRIG ATP III CLASSIFICATION TRIG less than 150 mg/dL Normal TRIG 150-199 mg/dL Borderline high TRIG 200-500 mg/dL High TRIG greater than 500 mg/dL Very high Standard traceable to the Center for Disease Conrtrol and Prevention (CDC) test method. Performed By: #### L IPID, CMP, URMA, T4F, CBC, TSH3, A1C [facility] eA ####[facility] [id number] VLDL CHOLESTEROL 22 mg/dL Normal [facility] Comment on above: Performed By: #### L IPID, CMP, URMA, T4F, CBC, TSH3, A1C [facility] eA ####[facility] [id number] Lymphocytes Auto (Bld) [#/Vo l]Ordered By: Neto Arauz on 01-23-2024 Lymphocytes (Bld) [#/Vol] Lymphocytes [#/volume] in Blood by Automated count 1.00-4.8 [facility] Lymphocytes/100 WBC Auto (Bl d)Ordered By: Neto Arauz on 01-23-2024 Lymphocytes/100 WBC (Bld) Lymphocytes/100 leukocytes in Blood by Automated count . [facility] MCH Auto (RBC) [Entitic mass ]Ordered By: Neto Arauz on 01-23-2024 MCH (RBC) [Entitic mass] MCH [Entitic mass] by Automated count 24.7-34.3 [facility] MCHC Auto (RBC) [Mass/Vol]Or dered By: Neto Arauz on 01-23-2024 MCHC (RBC) [Mass/Vol] MCHC [Mass/volume] by Automated count 32.0-35.0 [facility] MCV Auto (RBC) [Entitic vol] Ordered By: Neto Arauz on 01-23-2024 MCV (RBC) [Entitic vol] MCV [Entitic volume] by Automated count 80-100 [facility] Microalbumin [Mass/volume] i n UrineOrdered By: Neto Arauz on 01-23-2024 Albumin DL <= 20 mg/L (U) [Mass/Vol] Microalbumin [Mass/volume] in Urine High 0.0-1.8 [facility] Microalbumin, Urine (Random) on 01-23-2024 Albumin DL <= 20 mg/L (U) [Mass/Vol] 10.1 mg/dL High 0.0-1.8 [facility] Comment on above: Result Comment: PERF ORMED BY:[facility] [place], [place] [id number] MEDICAL DIRECTORDOROTHY MENA M.D. Performed By: #### L IPID, CMP, URMA, T4F, CBC, TSH3, A1C [facility] eA ####[facility] [place] [address] [facility] Monocytes Auto (Bld) [#/Vol] Ordered By: Neto Arauz on 01-23-2024 Monocytes (Bld) [#/Vol] Automated blood monocyte count 0.0-0.8 [facility] Monocytes/100 WBC Auto (Bld) Ordered By: Neto Arauz on 01-23-2024 Monocytes/100 WBC (Bld) Automated monocyte % . [facility] Neutrophils Auto (Bld) [#/Vo l]Ordered By: Neto Arauz on 01-23-2024 Neutrophils (Bld) [#/Vol] Neutrophils [#/volume] in Blood by Automated count 1.8-7.7 [facility] Neutrophils/100 WBC Auto (Bl d)Ordered By: Neto Arauz on 01-23-2024 Neutrophils/100 WBC (Bld) Automated neutrophil % . [facility] No Panel InformationOrdered By: Neto Arauz on 01-23-2024 Estimated GFR (CKD-EPI) 56.514 mL/Min [facility] Creatinine Clearance (Chem N/A [facility] 56.514 mL/Min [facility] N/A [facility] Nucleated erythrocytes [Pres ence] in Blood by Automated countOrdered By: Neto Arauz on 01-23-2024 Nucleated RBC Auto Ql (Bld) Nucleated erythrocytes [Presence] in Blood by Automated count 0-0.5 [facility] Platelet mean volume Auto (B ld) [Entitic vol]Ordered By: Neto Arauz on 01-23-2024 Platelet mean volume (Bld) [Entitic vol] Platelet mean volume [Entitic volume] in Blood by Automated count 6.3-10.7 [facility] Platelets Auto (Bld) [#/Vol] Ordered By: Neto Arauz on 01-23-2024 Platelets (Bld) [#/Vol] Platelets [#/volume] in Blood by Automated count 150-450 [facility] Potassium [Moles/volume] in Serum or PlasmaOrdered By: Neto Arauz on 01-23-2024 Potassium [Moles/Vol] Potassium [Moles/v olume] in Serum or Plasma 3.5-5.1 [facility] Protein [Mass/volume] in Ser um or PlasmaOrdered By: Neto Arauz on 01-23-2024 Protein [Mass/Vol] Protein [Mass/volume ] in Serum or Plasma 6.4-8.9 [facility] RBC Auto (Bld) [#/Vol]Ordere d By: Neto Arauz on 01-23-2024 RBC (Bld) [#/Vol] Erythrocytes [#/volu me] in Blood by Automated count 3.60-5.00 [facility] Serum or plasma albumin/glob ulin mass ratioOrdered By: Neto Arauz on 01-23-2024 Albumin/Globulin [Mass ratio] Serum or plasma albumin/globulin mass ratio [facility] Serum or plasma anion gap de terminationOrdered By: Neto Arauz on 01-23-2024 Anion gap [Moles/Vol] Serum or plasma an ion gap determination 6.0-15.0 [facility] Serum or plasma total choles terol/high density lipoprotein (HDL) cholesterol mass ratOrdered By: Neto Arauz on 01-23-2024 Cholesterol.total/Chol esterol in HDL [Mass ratio] Serum or plasma total cholesterol/high density lipoprotein (HDL) cholesterol mass rat <5.0 [facility] Sodium [Moles/volume] in Ser um or PlasmaOrdered By: Neto Arauz on 01-23-2024 Sodium [Moles/Vol] Sodium [Moles/volume ] in Serum or Plasma 136-145 [facility] Thyroid Stimulating Hormoneo n 01-23-2024 TSH Qn 0.47 m[IU]/L Normal 0.45-5.33 [facility] Comment on above: Result Comment: PERF ORMED BY:[facility] [place] [id number] MEDICAL DIRECTORDOROTHY MENA M.D. Performed By: #### L IPID, CMP, URMA, T4F, CBC, TSH3, A1C WT eA ####[facility] [place] [address] [facility] Thyrotropin [Units/volume] i n Serum or PlasmaOrdered By: Neto Arauz on 01-23-2024 TSH Qn Thyrotropin [Units/volume] in Serum or Plasma 0.45-5.33 [facility] Thyroxine (T4) free [Mass/vo lume] in Serum or PlasmaOrdered By: Neto Arauz on 01-23-2024 Free T4 [Mass/Vol] Thyroxine (T4) free [Mass/volume] in Serum or Plasma 0.61-1.12 [facility] Triglyceride [Mass/volume] i n Serum or PlasmaOrdered By: Neto Arauz on 01-23-2024 Triglyceride [Mass/Vol] Triglyceride [Mass/volume] in Serum or Plasma 0-149 [facility] Comment on above: TRIG ATP III CLASSIF ICATIONTRIG less than 150 mg/dL NormalTRIG 150-199 mg/dL Borderline highTRIG 200-500 mg/dL High TRIG greater than 500 mg/dL Very highStandard traceable to the Center for Disease Conrtrol and Prevention (CDC) test method. Urea nitrogen [Mass/volume] in Serum or PlasmaOrdered By: Neto Arauz on 01-23-2024 Urea nitrogen [Mass/Vol] Urea nitrogen [Mass/volume] in Serum or Plasma 7-25 [facility] WBC Auto (Bld) [#/Vol]Ordere d By: Neto Arauz on 01-23-2024 WBC (Bld) [#/Vol] Leukocytes [#/volume ] in Blood by Automated count 3.8-11.6 [facility] Automated basophil %Ordered By: Niranjan Hi on 11-23-2023 Basophils/100 WBC (Bld) 0.4 % Normal . [facility] Comment on above: Performed By: #### S CAN CBC, CK, BNP ####[address] Automated basophil countOrde red By: Niranjan Hi on 11-23-2023 Basophils (Bld) [#/Vol] 0.0 10*3/uL Normal 0.0-0.2 [facility] Comment on above: Performed By: #### S CAN CBC, CK, BNP ####[address] Automated blood monocyte cou ntOrdered By: Niranjan Hi on 11-23-2023 Monocytes (Bld) [#/Vol] 0.8 10*3/uL Normal 0.0-0.8 [facility] Comment on above: Performed By: #### S CAN CBC, CK, BNP ####[address] Automated eosinophil %Ordere d By: Niranjan Hi on 11-23-2023 Eosinophils/100 WBC (Bld) 1.1 % Normal . [facility] Comment on above: Performed By: #### S CAN CBC, CK, BNP ####[address] Automated eosinophil countOr dered By: Niranjan Hi on 11-23-2023 Eosinophils (Bld) [#/Vol] 0.1 10*3/uL Normal 0.0-0.45 [facility] Comment on above: Performed By: #### S CAN CBC, CK, BNP ####[address] Automated monocyte %Ordered By: Niranjan Hi on 11-23-2023 Monocytes/100 WBC (Bld) 9.1 % Normal . [facility] Comment on above: Performed By: #### S CAN CBC, CK, BNP ####[address] Automated neutrophil %Ordere d By: Niranjan Hi on 11-23-2023 Neutrophils/100 WBC (Bld) 74.7 % Normal . [facility] Comment on above: Performed By: #### S CAN CBC, CK, BNP ####[place] [address] [place] [address] [facility] BNP ser/plasOrdered By: Niranjan Hi on 11-23-2023 Natriuretic peptide B (Bld) [Mass/Vol] 114.0 pg/mL High 5-100 [facility] Comment on above: Result Comment: PERF ORMED BY:[address] [place], [place] [id number] MEDICAL DIRECTORARIE ROJO M.D. Performed By: #### S CAN CBC, CK, BNP ####[address] [place] [address] [facility] Basic Metabolic Panelon 11-05 Creatinine Clr Calc Pharmacy 48.10 Normal [facility] Comment on above: Result Comment: PERF ORMED BY:[address] [place], [place] [id number] MEDICAL DIRECTORARIE ROJO M.D. Performed By: #### B MP, HS TROP ####[address] [address] [facility] GFR/1.73 sq M.predicted MDRD (S/P/Bld) [Vol rate/Area] 54.056 mL/min/{1.73_m2} Normal [facility] Comment on above: Performed By: #### B MP, HS TROP ####[address] [address] [facility] Basophils Auto (Bld) [#/Vol] Ordered By: Niranjan Hi on 11-23-2023 Basophils (Bld) [#/Vol] Automated basophil count 0.0-0.2 [facility] Basophils/100 WBC Auto (Bld) Ordered By: Niranjan Hi on 11-23-2023 Basophils/100 WBC (Bld) Automated basophil % . [facility] Calcium [Mass/volume] in Ser um or PlasmaOrdered By: Niranjan Hi on 11-23-2023 Calcium [Mass/Vol] 7.5 mg/dL Low 8.6-10.3 [facility] Comment on above: Performed By: #### B MP, HS TROP ####[address] [place] [address] [facility] Calcium [Mass/Vol] Calcium [Mass/volume ] in Serum or Plasma Low 8.6-10.3 [facility] Carbon dioxide, total [Moles /volume] in Serum or PlasmaOrdered By: Niranjan Hi on 11-23-2023 CO2 [Moles/Vol] 30.0 mmol/L Normal 21.0-31.0 [facility] Comment on above: Performed By: #### B MP, HS TROP ####[address] [place] [address] [facility] CO2 [Moles/Vol] Carbon dioxide, tota l [Moles/volume] in Serum or Plasma 21.0-31.0 [facility] Chloride [Moles/volume] in S cait or PlasmaOrdered By: Niranjan Hi on 11-23-2023 Chloride [Moles/Vol] 102 mmol/L Normal 98-107 [facility] Comment on above: Performed By: #### B MP, HS TROP ####[address] [place] [address] [facility] Chloride [Moles/Vol] Chloride [Moles/vol ume] in Serum or Plasma 98-107 [facility] Creatine kinase [Enzymatic a ctivity/volume] in Serum or PlasmaOrdered By: Niranjan Hi on 11-23-2023 CK [Catalytic activity/Vol] 55 U/L Normal [address] [facility] Comment on above: Result Comment: PERF ORMED BY:[address] [place], [place] [phone] MEDICAL DIRECTORARIE ROJO M.D. Performed By: #### S CAN CBC, CK, BNP ####[address] [place] [address] [facility] CK [Catalytic activity/Vol] Creatine kinase [Enzymatic activity/volume] in Serum or Plasma 30- [facility] Creatinine [Mass/volume] in Serum or PlasmaOrdered By: Niranjan Hi on 11-23-2023 Creatinine [Mass/Vol] 1.10 mg/dL Normal 0.60-1.20 [facility] Comment on above: Performed By: #### B MP, HS TROP ####[facility] [id number] Creatinine [Mass/Vol] Creatinine [Mass/v olume] in Serum or Plasma 0.60-1.20 [facility] ECG 12 lead ECGon 11-23-2023 ECG 12 lead ECG Normal [facility] Eosinophils Auto (Bld) [#/Vo l]Ordered By: Niranjan Hi on 11-23-2023 Eosinophils (Bld) [#/Vol] Automated eosinophil count 0.0-0.45 [facility] Eosinophils/100 WBC Auto (Bl d)Ordered By: Niranjan Hi on 11-23-2023 Eosinophils/100 WBC (Bld) Automated eosinophil % . [facility] Erythrocyte distribution wid th Auto (RBC) [Ratio]Ordered By: Niranjan Hi on 11-23-2023 Erythrocyte distribution width (RBC) [Ratio] Erythrocyte distribution width [Ratio] by Automated count 11.9-15.3 [facility] Erythrocyte distribution wid th [Ratio] by Automated countOrdered By: Niranjan Hi on 11-23-2023 Erythrocyte distribution width (RBC) [Ratio] 13.8 % Normal 11.9-15.3 [facility] Comment on above: Performed By: #### S CAN CBC, CK, BNP ####[facility] [id number] [facility] Erythrocyte morphology findi ng [Identifier] in BloodOrdered By: Niranjan Hi on 11-23-2023 RBC morphology finding Nom (Bld) RBC morphology Normal [facility] Erythrocytes [#/volume] in B lood by Automated countOrdered By: Niranjan Hi on 11-23-2023 RBC (Bld) [#/Vol] 4.10 10*6/uL Normal 3.60-5.00 [facility] Comment on above: Performed By: #### S CAN CBC, CK, BNP ####[facility] [id number] [facility] Glucose [Mass/volume] in Ser um or PlasmaOrdered By: Niranjan Hi on 11-23-2023 Glucose [Mass/Vol] 122 mg/dL High 70-100 [facility] Comment on above: ADA recommended refe rence rangeRandom Glucose Reference Range is dependent on time and content of last meal. Glucose of more than 200 mg/dL in a nonstressed, ambulatory subject supports the diagnosis of Diabetes Mellitus. Result Comment: [place] om Glucose Reference Range is dependent on time and content of last meal. Glucose of more than 200 mg/dL in a nonstressed, ambulatory subject supports the diagnosis of Diabetes Mellitus. ADA recommended reference range Performed By: #### B MP, HS TROP ####[address] Glucose [Mass/Vol] Glucose [Mass/volume ] in Serum or Plasma [facility] 70-100 [facility] Comment on above: ADA recommended refe rence rangeRandom Glucose Reference Range is dependent on time and content of last meal. Glucose of more than 200 mg/dL in a nonstressed, ambulatory subject supports the diagnosis of Diabetes Mellitus. Hematocrit Auto (Bld) [Volum e fraction]Ordered By: Niranjan Hi on 11-23-2023 Hematocrit (Bld) [Volume fraction] Hematocrit [Volume Fraction] of Blood by Automated count 34.0-46.4 [facility] Hematocrit [Volume Fraction] of Blood by Automated countOrdered By: Niranjan Hi on 11-23-2023 Hematocrit (Bld) [Volume fraction] 36.1 % Normal 34.0-46.4 [facility] Comment on above: Performed By: #### S CAN CBC, CK, BNP ####[address] [place] [address] [facility] Hemoglobin [Mass/volume] in BloodOrdered By: Niranjan Hi on 11-23-2023 Hemoglobin (Bld) [Mass/Vol] 11.9 g/dL Normal 11.8-15.4 [facility] Comment on above: Performed By: #### S CAN CBC, CK, BNP ####[facility] [facility] Hemoglobin (Bld) [Mass/Vol] Hemoglobin [Mass/volume] in Blood 11.8-15.4 [facility] Leukocytes [#/volume] correc hugh for nucleated erythrocytes in Blood by Automated counOrdered By: Niranjan Hi on 11-23-2023 WBC corrected for nucl RBC Auto (Bld) [#/Vol] 8.9 10*3/uL 3.8-11.6 [facility] WBC corrected for nucl RBC Auto (Bld) [#/Vol] Leukocytes [#/volume] corrected for nucleated erythrocytes in Blood by Automated coun 3.8-11.6 [facility] Leukocytes [#/volume] in Blo od by Automated countOrdered By: Niranjan Hi on 11-23-2023 WBC (Bld) [#/Vol] 8.9 10*3/uL Normal 3.8-11.6 [facility] Comment on above: Performed By: #### S CAN CBC, CK, BNP ####[facility] Anq[address] Lymphocytes Auto (Bld) [#/Vo l]Ordered By: Niranjan Hi on 11-23-2023 Lymphocytes (Bld) [#/Vol] Lymphocytes [#/volume] in Blood by Automated count 1.00-4.8 [facility] Lymphocytes [#/volume] in Bl ood by Automated countOrdered By: Niranjan Hi on 11-23-2023 Lymphocytes (Bld) [#/Vol] 1.3 10*3/uL Normal 1.00-4.8 [facility] Comment on above: Performed By: #### S CAN CBC, CK, BNP ####[facility] [id number] Lymphocytes/100 WBC Auto (Bl d)Ordered By: Niranjan Hi on 11-23-2023 Lymphocytes/100 WBC (Bld) Lymphocytes/100 leukocytes in Blood by Automated count . [facility] Lymphocytes/100 leukocytes i n Blood by Automated countOrdered By: Niranjan Hi on 11-23-2023 Lymphocytes/100 WBC (Bld) 14.7 % Normal . [facility] Comment on above: Performed By: #### S CAN CBC, CK, BNP ####[facility] [id number] MCH Auto (RBC) [Entitic mass ]Ordered By: Niranjan Hi on 11-23-2023 MCH (RBC) [Entitic mass] MCH [Entitic mass] by Automated count 24.7-34.3 [facility] MCH [Entitic mass] by Automa hugh countOrdered By: Niranjan Hi on 11-23-2023 MCH (RBC) [Entitic mass] 29.1 pg Normal 24.7-34.3 [facility] Comment on above: Performed By: #### S CAN CBC, CK, BNP ####[address] MCHC Auto (RBC) [Mass/Vol]Or dered By: Niranjan Hi on 11-23-2023 MCHC (RBC) [Mass/Vol] 33.1 g/dL 32.0-35.0 [facility] MCHC (RBC) [Mass/Vol] MCHC [Mass/volume] by Automated count 32.0-35.0 [facility] MCV Auto (RBC) [Entitic vol] Ordered By: Niranjan Hi on 11-23-2023 MCV (RBC) [Entitic vol] MCV [Entitic volume] by Automated count 80-100 [facility] MCV [Entitic volume] by Auto mated countOrdered By: Niranjan Hi on 11-23-2023 MCV (RBC) [Entitic vol] 88.0 fL Normal 80-100 [facility] Comment on above: Performed By: #### S CAN CBC, CK, BNP ####[address] Monocyte distribution width [Entitic volume] in Blood by AutomatedOrdered By: Niranjan Hi on 11-23-2023 Monocyte distribution width Auto (Bld) [Entitic vol] 20.05 % High 0.00-20.00 [facility] Comment on above: For adults in ED, MD W > 20.0 may be associated with a higher risk of sepsis during the first 12 hrs of hospital admissionThe predictive value of MDW for identifying sepsis in patients with hematological abnormalities has not been established Monocyte distribution width Auto (Bld) [Entitic vol] Monocyte distribution width [Entitic volume] in Blood by Automated High 0.00-20.00 [facility] Comment on above: For adults in ED, MD W > 20.0 may be associated with a higher risk of sepsis during the first 12 hrs of hospital admissionThe predictive value of MDW for identifying sepsis in patients with hematological abnormalities has not been established Monocytes Auto (Bld) [#/Vol] Ordered By: Niranjan Hi on 11-23-2023 Monocytes (Bld) [#/Vol] Automated blood monocyte count 0.0-0.8 [facility] Monocytes/100 WBC Auto (Bld) Ordered By: Niranjan Hi on 11-23-2023 Monocytes/100 WBC (Bld) Automated monocyte % . [facility] Natriuretic peptide B [Mass/ Vol]Ordered By: Niranjan Hi on 11-23-2023 Natriuretic peptide B (Bld) [Mass/Vol] BNP ser/plas High 5-100 [facility] Neutrophils Auto (Bld) [#/Vo l]Ordered By: Niranjan Hi on 11-23-2023 Neutrophils (Bld) [#/Vol] Neutrophils [#/volume] in Blood by Automated count 1.8-7.7 [facility] Neutrophils [#/volume] in Bl ood by Automated countOrdered By: Niranjan Hi on 11-23-2023 Neutrophils (Bld) [#/Vol] 6.7 10*3/uL Normal 1.8-7.7 [facility] Comment on above: Performed By: #### S CAN CBC, CK, BNP ####[facility] [id number] [facility] Neutrophils/100 WBC Auto (Bl d)Ordered By: Niranjan Hi on 11-23-2023 Neutrophils/100 WBC (Bld) Automated neutrophil % . [facility] No Panel InformationOrdered By: Niranjan Hi on 11-23-2023 Estimated GFR (CKD-EPI) 54.056 mL/Min [facility] Creatinine Clearance (Chem 48.10 [facility] Nucleated erythrocytes [Pres ence] in Blood by Automated countOrdered By: Niranjan Hi on 11-23-2023 Nucleated RBC Auto Ql (Bld) 0.2 /100{WBC} 0-0.5 [facility] Nucleated RBC Auto Ql (Bld) Nucleated erythrocytes [Presence] in Blood by Automated count 0-0.5 [facility] Platelet adequacy [Presence] in Blood by Light microscopyOrdered By: Niranjan Hi on 11-23-2023 Platelets LM Ql (Bld) Normal Normal [facility] Platelets LM Ql (Bld) Platelet adequacy [Presence] in Blood by Light microscopy Normal [facility] Platelet mean volume Auto (B ld) [Entitic vol]Ordered By: Niranjan Hi on 11-23-2023 Platelet mean volume (Bld) [Entitic vol] Platelet mean volume [Entitic volume] in Blood by Automated count 6.3-10.7 [facility] Platelet mean volume [Entiti c volume] in Blood by Automated countOrdered By: Niranjan Hi on 11-23-2023 Platelet mean volume (Bld) [Entitic vol] 8.6 fL Normal 6.3-10.7 [facility] Comment on above: Performed By: #### S CAN CBC, CK, BNP ####[facility] [id number] [facility] Platelet morphology finding [Identifier] in BloodOrdered By: Niranjan Hi on 11-23-2023 Platelet morphology finding Nom (Bld) Normal Normal [facility] Platelet morphology finding Nom (Bld) Platelet morphology finding [Identifier] in Blood Normal [facility] Platelets Auto (Bld) [#/Vol] Ordered By: Niranjan Hi on 11-23-2023 Platelets (Bld) [#/Vol] Platelets [#/volume] in Blood by Automated count 150-450 [facility] Platelets [#/volume] in Bloo d by Automated countOrdered By: Niranjan Hi on 11-23-2023 Platelets (Bld) [#/Vol] 230 10*3/uL Normal 150-450 [facility] Comment on above: Performed By: #### S CAN CBC, CK, BNP ####[facility] [place] [address] [facility] Potassium [Moles/volume] in Serum or PlasmaOrdered By: Niranjan Hi on 11-23-2023 Potassium [Moles/Vol] 3.8 mmol/L Normal 3.5-5.1 [facility] Comment on above: Performed By: #### B MP, HS TROP ####[facility] [place] [address] [facility] Potassium [Moles/Vol] Potassium [Moles/v olume] in Serum or Plasma 3.5-5.1 [facility] RBC Auto (Bld) [#/Vol]Ordere d By: Niranjan Hi on 11-23-2023 RBC (Bld) [#/Vol] Erythrocytes [#/volu me] in Blood by Automated count 3.60-5.00 [facility] RBC morphologyOrdered By: Orly Hi on 11-23-2023 RBC morphology finding Nom (Bld) Normal Normal Normal [facility] Comment on above: Performed By: #### S CAN CBC, CK, BNP ####[address] [place] [address] [facility] Scan and CBCon 11-23-2023 Mean Corpuscular HGB Conc 33.1 g/dL Normal 32.0-35.0 [facility] Comment on above: Performed By: #### S CAN CBC, CK, BNP ####[id number] [facility] Monocytes/100 WBC (Bld) 20.05 % High 0.00-20.00 [facility] Comment on above: Result Comment: For adults in ED, MDW > 20.0 may be associated with a higher risk of sepsis during the first 12 hrs of hospital admission The predictive value of MDW for identifying sepsis in patients with hematological abnormalities has not been established Performed By: #### S CAN CBC, CK, BNP ####[address] [place] [address] [facility] NRBC% 0.2 /100{WBC} Normal 0-0.5 [facility] Comment on above: Performed By: #### S CAN CBC, CK, BNP ####[address] [place] [address] [facility] Platelet Estimate Normal Normal Normal [facility] Comment on above: Performed By: #### S CAN CBC, CK, BNP ####[address] [place] [address] [facility] Platelet Morphology Normal Normal Normal [facility] Comment on above: Result Comment: PERF ORMED BY:[address] [place], [place] [phone] MEDICAL DIRECTORARIE ROJO M.D. Performed By: #### S CAN CBC, CK, BNP ####[address] [place] [address] [facility] Serum or plasma anion gap de terminationOrdered By: Niranjan Hi on 11-23-2023 Anion gap [Moles/Vol] 12.8 mmol/L Normal 6.0-15.0 [facility] Comment on above: Performed By: #### B MP, HS TROP ####[address] [address] [facility] Anion gap [Moles/Vol] Serum or plasma an ion gap determination 6.0-15.0 [facility] Sodium [Moles/volume] in Ser um or PlasmaOrdered By: Niranjan Hi on 11-23-2023 Sodium [Moles/Vol] 141 mmol/L Normal 136-145 [facility] Comment on above: Performed By: #### B MP, HS TROP ####[address] [address] [facility] Sodium [Moles/Vol] Sodium [Moles/volume ] in Serum or Plasma 136-145 [facility] Troponin I High Sensitivityo n 11-23-2023 Troponin I High Sensitivity 16.1 pg/mL High 0.0-15.0 [facility] Comment on above: Result Comment: PERF ORMED BY:[address] [place] [place], [place] [phone] MEDICAL DIRECTORARIE ROJO M.D. Performed By: #### B MP, HS TROP ####[address] [address] [facility] Troponin I.cardiac [Mass/vol ume] in Serum or Plasma by Detection limit <= 0.01 ng/Ordered By: Niranjan Hi on 11-23-2023 Troponin I.cardiac DL <= 0.01 ng/mL [Mass/Vol] 16.1 pg/mL High 0.0-15.0 [facility] Troponin I.cardiac DL <= 0.01 ng/mL [Mass/Vol] Troponin I.cardiac [Mass/volume] in Serum or Plasma by Detection limit <= 0.01 ng/ High 0.0-15.0 [facility] Urea nitrogen [Mass/volume] in Serum or PlasmaOrdered By: Niranjan Hi on 11-23-2023 Urea nitrogen [Mass/Vol] 20 mg/dL Normal 09-28 [facility] Comment on above: Performed By: #### B MP, HS TROP ####[facility] [id number] [place] [address] [facility] Urea nitrogen [Mass/Vol] Urea nitrogen [Mass/volume] in Serum or Plasma 09-28 [facility] WBC Auto (Bld) [#/Vol]Ordere d By: Niranjan Hi on 11-23-2023 WBC (Bld) [#/Vol] Leukocytes [#/volume ] in Blood by Automated count 3.8-11.6 [facility] XR chest 1V portableon 11-22 XR chest 1V portable Normal [facility] Automated basophil %Ordered By: Mejia Aaron on 11-21-2023 Basophils/100 WBC (Bld) 0.3 % Normal . [facility] Comment on above: Performed By: #### B MP, CBC ####[facility] [address] [place] [address] [facility] Automated basophil countOrde red By: Mejia Aaron on 11-21-2023 Basophils (Bld) [#/Vol] 0.0 10*3/uL Normal 0.0-0.2 [facility] Comment on above: Result Comment: PERF ORMED BY:[address] [place], [place] [phone] MEDICAL DIRECTORARIE ROJO M.D. Performed By: #### B MP, CBC ####[facility] [address] [place] [address] [facility] Automated blood monocyte cou ntOrdered By: Mejia Aaron on 11-21-2023 Monocytes (Bld) [#/Vol] 0.3 10*3/uL Normal 0.0-0.8 [facility] Comment on above: Performed By: #### B MP, CBC ####[facility] [place] [address] [facility] Automated eosinophil %Ordere d By: Mejia Galen on 11-21-2023 Eosinophils/100 WBC (Bld) 0.1 % Normal . [facility] Comment on above: Performed By: #### B MP, CBC ####[address] [id number] [facility] Automated eosinophil countOr dered By: Mejia Galen on 11-21-2023 Eosinophils (Bld) [#/Vol] 0.0 10*3/uL Normal 0.0-0.45 [facility] Comment on above: Performed By: #### B MP, CBC ####[address] Automated monocyte %Ordered By: Mjeia Weldonpriya on 11-21-2023 Monocytes/100 WBC (Bld) 4.4 % Normal . [facility] Comment on above: Performed By: #### B MP, CBC ####[id number] [facility] Automated neutrophil %Ordere d By: Mejia Galen on 11-21-2023 Neutrophils/100 WBC (Bld) 84.5 % Normal . [facility] Comment on above: Performed By: #### B MP, CBC ####[place] [id number] [facility] Basic Metabolic Panelon 11-05 Creatinine Clr Calc Pharmacy 52.81 Normal [facility] Comment on above: Result Comment: PERF ORMED BY:[address] [place], [place] [phone] MEDICAL BIANCA ROJO M.D. Performed By: #### B MP, CBC ####[place] [id number] [facility] GFR/1.73 sq M.predicted MDRD (S/P/Bld) [Vol rate/Area] 57.160 mL/min/{1.73_m2} Normal [facility] Comment on above: Performed By: #### B MP, CBC ####[address] [place] [address] [place] Basophils Auto (Bld) [#/Vol] Ordered By: Mejia Aaron on 11-21-2023 Basophils (Bld) [#/Vol] Automated basophil count 0.0-0.2 [facility] Basophils/100 WBC Auto (Bld) Ordered By: Mejia Aaron on 11-21-2023 Basophils/100 WBC (Bld) Automated basophil % . [facility] Calcium [Mass/volume] in Ser um or PlasmaOrdered By: Mejia Aaron on 11-21-2023 Calcium [Mass/Vol] 8.7 mg/dL Normal 8.6-10.3 [facility] Comment on above: Performed By: #### B DIANNE, CBC ####[facility] [id number] [place] [address] [facility] Calcium [Mass/Vol] Calcium [Mass/volume ] in Serum or Plasma 8.6-10.3 [facility] Carbon dioxide, total [Moles /volume] in Serum or PlasmaOrdered By: Mejia Aaron on 11-21-2023 CO2 [Moles/Vol] 31.4 mmol/L High 21.0-31.0 [facility] Comment on above: Performed By: #### B MP, CBC ####[facility] [id number] [place] [address] [facility] CO2 [Moles/Vol] Carbon dioxide, tota l [Moles/volume] in Serum or Plasma High 21.0-31.0 [facility] Chloride [Moles/volume] in S cait or PlasmaOrdered By: Mejia Aaron on 11-21-2023 Chloride [Moles/Vol] 102 mmol/L Normal 98-107 [facility] Comment on above: Performed By: #### B MP, CBC ####[facility] [id number] [place] [address] [facility] Chloride [Moles/Vol] Chloride [Moles/vol ume] in Serum or Plasma 98-107 [facility] Complete Blood Count Auto Di ffon 11-21-2023 Mean Corpuscular HGB Conc 32.9 g/dL Normal 32.0-35.0 [facility] Comment on above: Performed By: #### B MP, CBC ####[facility] [id number] [place] [address] [facility] NRBC% 0.1 /100{WBC} Normal 0-0.5 [facility] Comment on above: Performed By: #### B MP, CBC ####[facility] [id number] [place] [id number] [facility] Creatinine [Mass/volume] in Serum or PlasmaOrdered By: Mejia Aaron on 11-21-2023 Creatinine [Mass/Vol] 1.05 mg/dL Normal 0.60-1.20 [facility] Comment on above: Performed By: #### B MP, CBC ####[address] Creatinine [Mass/Vol] Creatinine [Mass/v olume] in Serum or Plasma 0.60-1.20 [facility] Eosinophils Auto (Bld) [#/Vo l]Ordered By: Mejia Aaron on 11-21-2023 Eosinophils (Bld) [#/Vol] Automated eosinophil count 0.0-0.45 [facility] Eosinophils/100 WBC Auto (Bl d)Ordered By: Mejia Aaron on 11-21-2023 Eosinophils/100 WBC (Bld) Automated eosinophil % . [facility] Erythrocyte distribution wid th Auto (RBC) [Ratio]Ordered By: Mejia Aaron on 11-21-2023 Erythrocyte distribution width (RBC) [Ratio] Erythrocyte distribution width [Ratio] by Automated count 11.9-15.3 [facility] Erythrocyte distribution wid th [Ratio] by Automated countOrdered By: Mejia Aaron on 11-21-2023 Erythrocyte distribution width (RBC) [Ratio] 14.0 % Normal 11.9-15.3 [facility] Comment on above: Performed By: #### B MP, CBC ####[facility] [id number] [place] [address] [facility] Erythrocytes [#/volume] in B lood by Automated countOrdered By: Mejia Aaron on 11-21-2023 RBC (Bld) [#/Vol] 3.83 10*6/uL Normal 3.60-5.00 [facility] Comment on above: Performed By: #### B MP, CBC ####[facility] [id number] [place] [address] [facility] Glucose [Mass/volume] in Ser um or PlasmaOrdered By: Mejia Aaron on 11-21-2023 Glucose [Mass/Vol] 146 mg/dL High 70-100 [facility] Comment on above: ADA recommended refe rence rangeRandom Glucose Reference Range is dependent on time and content of last meal. Glucose of more than 200 mg/dL in a nonstressed, ambulatory subject supports the diagnosis of Diabetes Mellitus. Result Comment: [place] om Glucose Reference Range is dependent on time and content of last meal. Glucose of more than 200 mg/dL in a nonstressed, ambulatory subject supports the diagnosis of Diabetes Mellitus. ADA recommended reference range Performed By: #### B MP, CBC ####[facility] [id number] [place] [address] [facility] Glucose [Mass/Vol] Glucose [Mass/volume ] in Serum or Plasma High 70-100 [facility] Comment on above: ADA recommended refe rence rangeRandom Glucose Reference Range is dependent on time and content of last meal. Glucose of more than 200 mg/dL in a nonstressed, ambulatory subject supports the diagnosis of Diabetes Mellitus. Hematocrit Auto (Bld) [Volum e fraction]Ordered By: Mejia Aaron on 11-21-2023 Hematocrit (Bld) [Volume fraction] Hematocrit [Volume Fraction] of Blood by Automated count 34.0-46.4 [facility] Hematocrit [Volume Fraction] of Blood by Automated countOrdered By: Mejia Aaron on 11-21-2023 Hematocrit (Bld) [Volume fraction] 34.1 % Normal 34.0-46.4 [facility] Comment on above: Performed By: #### B MP, CBC ####[facility] [id number] [place] [id number] [facility] Hemoglobin [Mass/volume] in BloodOrdered By: Mejia Aaron on 11-21-2023 Hemoglobin (Bld) [Mass/Vol] 11.2 g/dL Low 11.8-15.4 [facility] Comment on above: Performed By: #### B MP, CBC ####[place] [id number] [facility] Hemoglobin (Bld) [Mass/Vol] Hemoglobin [Mass/volume] in Blood Low 11.8-15.4 [facility] Leukocytes [#/volume] correc hugh for nucleated erythrocytes in Blood by Automated counOrdered By: Mejia Aaron on 11-21-2023 WBC corrected for nucl RBC Auto (Bld) [#/Vol] 6.8 10*3/uL 3.8-11.6 [facility] WBC corrected for nucl RBC Auto (Bld) [#/Vol] Leukocytes [#/volume] corrected for nucleated erythrocytes in Blood by Automated coun 3.8-11.6 [facility] Leukocytes [#/volume] in Blo od by Automated countOrdered By: Mejia Aaron on 11-21-2023 WBC (Bld) [#/Vol] 6.8 10*3/uL Normal 3.8-11.6 [facility] Comment on above: Performed By: #### B MP, CBC ####[place] [id number] [facility] Lymphocytes Auto (Bld) [#/Vo l]Ordered By: Mejia Aaron on 11-21-2023 Lymphocytes (Bld) [#/Vol] Lymphocytes [#/volume] in Blood by Automated count Low 1.00-4.8 [facility] Lymphocytes [#/volume] in Bl ood by Automated countOrdered By: Mejia Aaron on 11-21-2023 Lymphocytes (Bld) [#/Vol] 0.7 10*3/uL Low 1.00-4.8 [facility] Comment on above: Performed By: #### B MP, CBC ####[facility] Lymphocytes/100 WBC Auto (Bl d)Ordered By: Mejia Aaron on 11-21-2023 Lymphocytes/100 WBC (Bld) Lymphocytes/100 leukocytes in Blood by Automated count . [facility] Lymphocytes/100 leukocytes i n Blood by Automated countOrdered By: Mejia Aaron on 11-21-2023 Lymphocytes/100 WBC (Bld) 10.7 % Normal . [facility] Comment on above: Performed By: #### B MP, CBC ####[facility] [id number] [place] [address] MCH Auto (RBC) [Entitic mass ]Ordered By: Mejia Aaron on 11-21-2023 MCH (RBC) [Entitic mass] MCH [Entitic mass] by Automated count 24.7-34.3 [facility] MCH [Entitic mass] by Automa hugh countOrdered By: Mejia Aaron on 11-21-2023 MCH (RBC) [Entitic mass] 29.2 pg Normal 24.7-34.3 [facility] Comment on above: Performed By: #### B MP, CBC ####[address] MCHC Auto (RBC) [Mass/Vol]Or dered By: Mejia Aaron on 11-21-2023 MCHC (RBC) [Mass/Vol] 32.9 g/dL 32.0-35.0 [facility] MCHC (RBC) [Mass/Vol] MCHC [Mass/volume] by Automated count 32.0-35.0 [facility] MCV Auto (RBC) [Entitic vol] Ordered By: Mejia Aaron on 11-21-2023 MCV (RBC) [Entitic vol] MCV [Entitic volume] by Automated count 80-100 [facility] MCV [Entitic volume] by Auto mated countOrdered By: Mejia Aaron on 11-21-2023 MCV (RBC) [Entitic vol] 89.0 fL Normal 80-100 [facility] Comment on above: Performed By: #### B MP, CBC ####[facility] [id number] [place] [address] [facility] Monocytes Auto (Bld) [#/Vol] Ordered By: Mejia Aaron on 11-21-2023 Monocytes (Bld) [#/Vol] Automated blood monocyte count 0.0-0.8 [facility] Monocytes/100 WBC Auto (Bld) Ordered By: Mejia Aaron on 11-21-2023 Monocytes/100 WBC (Bld) Automated monocyte % . [facility] Neutrophils Auto (Bld) [#/Vo l]Ordered By: Mejia Aaron on 11-21-2023 Neutrophils (Bld) [#/Vol] Neutrophils [#/volume] in Blood by Automated count 1.8-7.7 [facility] Neutrophils [#/volume] in Bl ood by Automated countOrdered By: Mejia Aaron on 11-21-2023 Neutrophils (Bld) [#/Vol] 5.8 10*3/uL Normal 1.8-7.7 [facility] Comment on above: Performed By: #### B MP, CBC ####[facility] [id number] [place] [id number] [facility] Neutrophils/100 WBC Auto (Bl d)Ordered By: Mejia Aaron on 11-21-2023 Neutrophils/100 WBC (Bld) Automated neutrophil % . [facility] No Panel InformationOrdered By: Mejia Aaron on 11-21-2023 Estimated GFR (CKD-EPI) 57.160 mL/Min [facility] Creatinine Clearance (Chem 52.81 [facility] Nucleated erythrocytes [Pres ence] in Blood by Automated countOrdered By: Mejia Aaron on 11-21-2023 Nucleated RBC Auto Ql (Bld) 0.1 /100{WBC} 0-0.5 [facility] Nucleated RBC Auto Ql (Bld) Nucleated erythrocytes [Presence] in Blood by Automated count 0-0.5 [facility] Platelet mean volume Auto (B ld) [Entitic vol]Ordered By: Mejia Aaron on 11-21-2023 Platelet mean volume (Bld) [Entitic vol] Platelet mean volume [Entitic volume] in Blood by Automated count 6.3-10.7 [facility] Platelet mean volume [Entiti c volume] in Blood by Automated countOrdered By: Mejia Aaron on 11-21-2023 Platelet mean volume (Bld) [Entitic vol] 8.8 fL Normal 6.3-10.7 [facility] Comment on above: Performed By: #### B MP, CBC ####[facility] [id number] [place] [id number] [facility] Platelets Auto (Bld) [#/Vol] Ordered By: Mejia Aaron on 11-21-2023 Platelets (Bld) [#/Vol] Platelets [#/volume] in Blood by Automated count 150-450 [facility] Platelets [#/volume] in Bloo d by Automated countOrdered By: Mejia Aaron on 11-21-2023 Platelets (Bld) [#/Vol] 204 10*3/uL Normal 150-450 [facility] Comment on above: Performed By: #### B MP, CBC ####[facility] [id number] [place] [id number] [facility] Potassium [Moles/volume] in Serum or PlasmaOrdered By: Mejia Aaron on 11-21-2023 Potassium [Moles/Vol] 4.3 mmol/L Normal 3.5-5.1 [facility] Comment on above: Performed By: #### B MP, CBC ####[facility] [id number] [place], [place] [id number] [facility] Potassium [Moles/Vol] Potassium [Moles/v olume] in Serum or Plasma 3.5-5.1 [facility] RBC Auto (Bld) [#/Vol]Ordere d By: Mejia Aaron on 11-21-2023 RBC (Bld) [#/Vol] Erythrocytes [#/volu me] in Blood by Automated count 3.60-5.00 [facility] Serum or plasma anion gap de terminationOrdered By: Mejia Aaron on 11-21-2023 Anion gap [Moles/Vol] 12.9 mmol/L Normal 6.0-15.0 [facility] Comment on above: Performed By: #### B MP, CBC ####[facility] [id number] [place] [id number] [facility] Anion gap [Moles/Vol] Serum or plasma an ion gap determination 6.0-15.0 [facility] Sodium [Moles/volume] in Ser um or PlasmaOrdered By: Mejia Aaron on 11-21-2023 Sodium [Moles/Vol] 142 mmol/L Normal 136-145 [facility] Comment on above: Performed By: #### B MP, CBC ####[facility] [id number] [place] [address] [facility] Sodium [Moles/Vol] Sodium [Moles/volume ] in Serum or Plasma 136-145 [facility] Urea nitrogen [Mass/volume] in Serum or PlasmaOrdered By: Mejia Aaron on 11-21-2023 Urea nitrogen [Mass/Vol] 30 mg/dL [address] Comment on above: Performed By: #### B MP, CBC ####[facility] [id number] [place] [address] [facility] Urea nitrogen [Mass/Vol] Urea nitrogen [Mass/volume] in Serum or Plasma [address] WBC Auto (Bld) [#/Vol]Ordere d By: Mejia Aaron on 11-21-2023 WBC (Bld) [#/Vol] Leukocytes [#/volume ] in Blood by Automated count 3.8-11.6 [facility] Activated partial thrombopla stin time (aPTT) in platelet poor plasma by coagulation aOrdered By: Mejia Aaron on 11-19-2023 aPTT Coag (PPP) [Time] 29.8 s 25.1-36.5 [facility] Comment on above: A hematocrit value g reater than 55% may lead to inaccurate results in coagulation testing. Patients having hematocrit values >55% require a special collection tube for coagulation studies. Please contact the laboratory at [phone] for redraw instructions. Alanine aminotransferase [En zymatic activity/volume] in Serum or PlasmaOrdered By: Mejia Aaron on 11-19-2023 ALT [Catalytic activity/Vol] 44 U/L Normal [facility] Comment on above: Order Comment: pt in therapy Performed By: #### C DIANNE, MG ####[place] [address] [place] [id number] [facility] ALT [Catalytic activity/Vol] Alanine aminotransferase [Enzymatic activity/volume] in Serum or Plasma [facility] Albumin [Mass/volume] in Ser um or Plasma by Bromocresol green (BCG) dye binding methoOrdered By: Mejia Aaron on 11-19-2023 Albumin BCG dye [Mass/Vol] 3.6 g/dL 3.5-5.7 [facility] Albumin BCG dye [Mass/Vol] Albumin [Mass/volume] in Serum or Plasma by Bromocresol green (BCG) dye binding metho 3.5-5.7 [facility] Alkaline phosphatase [Enzyma tic activity/volume] in Serum or PlasmaOrdered By: Mejia Aaron on 11-19-2023 ALP [Catalytic activity/Vol] 73 U/L Normal 34-104 [facility] Comment on above: Order Comment: pt in therapy Performed By: #### C DIANNE, MG ####[place] [id number] [facility] ALP [Catalytic activity/Vol] Alkaline phosphatase [Enzymatic activity/volume] in Serum or Plasma 34-104 [facility] Aspartate aminotransferase [ Enzymatic activity/volume] in Serum or PlasmaOrdered By: Mejia Aaron on 11-19-2023 AST [Catalytic activity/Vol] 67 U/L High 13- [facility] Comment on above: Order Comment: pt in therapy Performed By: #### C DIANNE, MG ####[place] [id number] [facility] AST [Catalytic activity/Vol] Aspartate aminotransferase [Enzymatic activity/volume] in Serum or Plasma High [address] Bilirubin.total [Mass/volume ] in Serum or PlasmaOrdered By: Mejia Aaron on 11-19-2023 Bilirubin [Mass/Vol] 0.4 mg/dL Normal 0.3-1.0 [facility] Comment on above: Order Comment: pt in therapy Performed By: #### C MP, MG ####[place] [id number] [facility] Bilirubin [Mass/Vol] Bilirubin.total [Mass/volume] in Serum or Plasma 0.3-1.0 [facility] Complete Blood Count Auto Di ffon 11-19-2023 Basophils (Bld) [#/Vol] 0.0 10*3/uL Normal 0.0-0.2 [facility] Comment on above: Order Comment: pt in therapy Result Comment: PERF ORMED BY:[address] [place], [place] [phone] MEDICAL DIRECTORARIE ROJO M.D. Performed By: #### P T, PTT, CBC ####[address] Basophils/100 WBC (Bld) 0.1 % Normal . [facility] Comment on above: Order Comment: pt in therapy Performed By: #### P T, PTT, CBC ####[place] [id number] [facility] Eosinophils (Bld) [#/Vol] 0.0 10*3/uL Normal 0.0-0.45 [facility] Comment on above: Order Comment: pt in therapy Performed By: #### P T, PTT, CBC ####[place] [id number] [facility] Eosinophils/100 WBC (Bld) 0.0 % Normal . [facility] Comment on above: Order Comment: pt in therapy Performed By: #### P T, PTT, CBC ####[place] [id number] [facility] Erythrocyte distribution width (RBC) [Ratio] 14.1 % Normal 11.9-15.3 [facility] Comment on above: Order Comment: pt in therapy Performed By: #### P T, PTT, CBC ####[facility] [address] Hematocrit (Bld) [Volume fraction] 34.5 % Normal 34.0-46.4 [facility] Comment on above: Order Comment: pt in therapy Performed By: #### P T, PTT, CBC ####[address] Hemoglobin (Bld) [Mass/Vol] 11.3 g/dL Low 11.8-15.4 [facility] Comment on above: Order Comment: pt in therapy Performed By: #### P T, PTT, CBC ####[address] Lymphocytes (Bld) [#/Vol] 0.7 10*3/uL Low 1.00-4.8 [facility] Comment on above: Order Comment: pt in therapy Performed By: #### P T, PTT, CBC ####[address] Lymphocytes/100 WBC (Bld) 5.5 % Normal . [facility] Comment on above: Order Comment: pt in therapy Performed By: #### P T, PTT, CBC ####[address] MCH (RBC) [Entitic mass] 29.2 pg Normal 24.7-34.3 [facility] Comment on above: Order Comment: pt in therapy Performed By: #### P T, PTT, CBC ####[address] MCV (RBC) [Entitic vol] 89.1 fL Normal 80-100 [facility] Comment on above: Order Comment: pt in therapy Performed By: #### P T, PTT, CBC ####[address] Mean Corpuscular HGB Conc 32.8 g/dL Normal 32.0-35.0 [facility] Comment on above: Order Comment: pt in therapy Performed By: #### P T, PTT, CBC ####[place] [address] [place] Monocytes (Bld) [#/Vol] 0.4 10*3/uL Normal 0.0-0.8 [facility] Comment on above: Order Comment: pt in therapy Performed By: #### P T, PTT, CBC ####[address] Monocytes/100 WBC (Bld) 3.4 % Normal . [facility] Comment on above: Order Comment: pt in therapy Performed By: #### P T, PTT, CBC ####[address] Neutrophils (Bld) [#/Vol] 11.9 10*3/uL High 1.8-7.7 [facility] Comment on above: Order Comment: pt in therapy Performed By: #### P T, PTT, CBC ####[address] Neutrophils/100 WBC (Bld) 91.0 % Normal . [facility] Comment on above: Order Comment: pt in therapy Performed By: #### P T, PTT, CBC ####[address] NRBC% 0.0 /100{WBC} Normal 0-0.5 [facility] Comment on above: Order Comment: pt in therapy Performed By: #### P T, PTT, CBC ####[address] Platelet mean volume (Bld) [Entitic vol] 8.7 fL Normal 6.3-10.7 [facility] Comment on above: Order Comment: pt in therapy Performed By: #### P T, PTT, CBC ####[place] [id number] [facility] Platelets (Bld) [#/Vol] 168 10*3/uL Normal 150-450 [facility] Comment on above: Order Comment: pt in therapy Performed By: #### P T, PTT, CBC ####[address] RBC (Bld) [#/Vol] 3.87 10*6/uL Normal 3.60-5.00 [facility] Comment on above: Order Comment: pt in therapy Performed By: #### P T, PTT, CBC ####[place] [id number] [facility] WBC (Bld) [#/Vol] 13.0 10*3/uL High 3.8-11.6 [facility] Comment on above: Order Comment: pt in therapy Performed By: #### P T, PTT, CBC ####[place] [id number] [facility] Comprehensive Metabolic Pane lelia 11-19-2023 Albumin [Mass/Vol] 3.6 g/dL Normal 3.5-5.7 [facility] Comment on above: Order Comment: pt in therapy Performed By: #### C MP, MG ####[address] Anion gap [Moles/Vol] 14.3 mmol/L Normal 6.0-15.0 [facility] Comment on above: Order Comment: pt in therapy Performed By: #### C MP, MG ####[address] Calcium [Mass/Vol] 8.8 mg/dL Normal 8.6-10.3 [facility] Comment on above: Order Comment: pt in therapy Performed By: #### C MP, MG ####[place] [id number] [facility] Chloride [Moles/Vol] 103 mmol/L Normal 98-107 [facility] Comment on above: Order Comment: pt in therapy Performed By: #### C MP, MG ####[place] [id number] [facility] CO2 [Moles/Vol] 30.6 mmol/L Normal 21.0-31.0 [facility] Comment on above: Order Comment: pt in therapy Performed By: #### C MP, MG ####[place] [id number] [place] Creatinine [Mass/Vol] 1.08 mg/dL Normal 0.60-1.20 [facility] Comment on above: Order Comment: pt in therapy Performed By: #### C MP, MG ####[place] [address] [place] [address]70 [facility] Creatinine Clr Calc Pharmacy 50.15 Normal [facility] Comment on above: Order Comment: pt in therapy Performed By: #### C MP, MG ####[place] [id number] [facility] GFR/1.73 sq M.predicted MDRD (S/P/Bld) [Vol rate/Area] 55.259 mL/min/{1.73_m2} Normal [facility] Comment on above: Order Comment: pt in therapy Performed By: #### C MP, MG ####[address] Glucose [Mass/Vol] 158 mg/dL High 70-100 [facility] Comment on above: Order Comment: pt in therapy Result Comment: [facility] Glucose Reference Range is dependent on time and content of last meal. Glucose of more than 200 mg/dL in a nonstressed, ambulatory subject supports the diagnosis of Diabetes Mellitus. ADA recommended reference range Performed By: #### C MP, MG ####[address] Potassium [Moles/Vol] 3.9 mmol/L Normal 3.5-5.1 [facility] Comment on above: Order Comment: pt in therapy Performed By: #### C MP, MG ####[address] Sodium [Moles/Vol] 144 mmol/L Normal 136-145 [facility] Comment on above: Order Comment: pt in therapy Performed By: #### C MP, MG ####[place] [id number] [facility] Urea nitrogen [Mass/Vol] 33 mg/dL High 7-25 [facility] Comment on above: Order Comment: pt in therapy Performed By: #### C MP, MG ####[facility] [id number] [place] [address] [facility] Globulin Calc (S) [Mass/Vol] Ordered By: Mejia Aaron on 11-19-2023 Globulin (S) [Mass/Vol] Serum globulin measurement by calculation (mass/volume) [facility] INR in Platelet poor plasma by Coagulation assayOrdered By: Mejia Aaron on 11-19-2023 INR Coag (PPP) [Relative time] 1.0 {INR} Normal [facility] Comment on above: INR Therapeutic Rang e A) Pre- and Peroperative OAT started two weeks before surgery. NOT HIP SURGERY: 1.5 - 2.5 HIP SURGERY: 2 - 3B) Primary and secondary prevention of venous THROMBOSIS: 2 - 3C) Active venous thrombosis, pulmonary embolismand prevention of recurrent venous thrombosis: 2 - 3D) Prevention of arterial thromboembolismincluding patients with mechanical heart valves: 3 - 4.5 Order Comment: pt in therapy Result Comment: INR Therapeutic Range A) Pre- and Peroperative OAT started two weeks before surgery. NOT HIP SURGERY: 1.5 - 2.5 HIP SURGERY: 2 - 3 B) Primary and secondary prevention of venous THROMBOSIS: 2 - 3 C) Active venous thrombosis, pulmonary embolism and prevention of recurrent venous thrombosis: 2 - 3 D) Prevention of arterial thromboembolism including patients with mechanical heart valves: 3 - 4.5 Performed By: #### P T, PTT, CBC ####[facility] [address] [place] [address] [facility] INR Coag (PPP) [Relative time] INR in Platelet poor plasma by Coagulation assay [facility] Comment on above: INR Therapeutic Rang e A) Pre- and Peroperative OAT started two weeks before surgery. NOT HIP SURGERY: 1.5 - 2.5 HIP SURGERY: 2 - 3B) Primary and secondary prevention of venous THROMBOSIS: 2 - 3C) Active venous thrombosis, pulmonary embolismand prevention of recurrent venous thrombosis: 2 - 3D) Prevention of arterial thromboembolismincluding patients with mechanical heart valves: 3 - 4.5 Magnesium [Mass/volume] in S cait or PlasmaOrdered By: Mejia Aaron on 11-19-2023 Magnesium [Mass/Vol] 2.2 mg/dL Normal 1.9-2.7 [facility] Comment on above: Order Comment: pt in therapy Result Comment: PERF ORMED BY:[place] [address] [place], [place] [phone] MEDICAL DIRECTORARIE ROJO M.D. Performed By: #### C MP, MG ####[place] [address] [place] [address] [facility] Magnesium [Mass/Vol] Magnesium [Mass/vol ume] in Serum or Plasma 1.9-2.7 [facility] Partial Thromboplastin Timeo n 11-19-2023 aPTT Coag (Bld) [Time] 29.8 s Normal 25.1-36.5 [facility] Comment on above: Order Comment: pt in therapy Result Comment: A he matocrit value greater than 55% may lead to inaccurate results in coagulation testing. Patients having hematocrit values >55% require a special collection tube for coagulation studies. Please contact the laboratory at [phone] for redraw instructions.PERFORMED BY:[place] [address] [address] [place] [phone] MEDICAL DIRECTORARIE ROJO M.D. Performed By: #### P T, PTT, CBC ####[address] [address] [facility] Protein [Mass/volume] in Ser um or PlasmaOrdered By: Mejia Aaron on 11-19-2023 Protein [Mass/Vol] 5.9 g/dL Low 6.4-8.9 [facility] Comment on above: Order Comment: pt in therapy Performed By: #### C MP, MG ####[address] [address] [facility] Protein [Mass/Vol] Protein [Mass/volume ] in Serum or Plasma Low 6.4-8.9 [facility] Prothrombin time (PT)Ordered By: Mejia Aaron on 11-19-2023 PT Coag (PPP) [Time] 12.1 s Normal 9.0-12.9 [facility] Comment on above: A hematocrit value g reater than 55% may lead to inaccurate results in coagulation testing. Patients having hematocrit values >55% require a special collection tube for coagulation studies. Please contact the laboratory at [phone] for redraw instructions. Order Comment: pt in therapy Result Comment: A he matocrit value greater than 55% may lead to inaccurate results in coagulation testing. Patients having hematocrit values >55% require a special collection tube for coagulation studies. Please contact the laboratory at [phone] for redraw instructions. Performed By: #### P T, PTT, CBC ####[place] [address] PT Coag (PPP) [Time] Prothrombin time (PT) 9.0- 12.9 [facility] Comment on above: A hematocrit value g reater than 55% may lead to inaccurate results in coagulation testing. Patients having hematocrit values >55% require a special collection tube for coagulation studies. Please contact the laboratory at [phone] for redraw instructions. Serum globulin measurement b y calculation (mass/volume)Ordered By: Mejia Aaron on 11-19-2023 Globulin (S) [Mass/Vol] 2.3 g/dL [facility] Comment on above: Order Comment: pt in therapy Performed By: #### C MP, MG ####[place] [address] Serum or plasma albumin/glob ulin mass ratioOrdered By: Mejia Aaron on 11-19-2023 Albumin/Globulin [Mass ratio] 1.6 {ratio} [facility] Comment on above: Order Comment: pt in therapy Performed By: #### C MP, MG ####[place] [address] [place] [id number] [facility] Albumin/Globulin [Mass ratio] Serum or plasma albumin/globulin mass ratio [facility] Troponin I High Sensitivityo n 11-19-2023 Troponin I High Sensitivity 204.7 pg/mL Off scale high 0.0-15.0 [facility] Comment on above: Order Comment: pt in therapy Result Comment: Crit ical Result : Called to and read back by: ZAINA MARLOW at: 11/19/2023 13:33:41 by:MLGPERFORMED BY:[facility] [place] [place], [place] [phone] MEDICAL DIRECTORARIE ROJO M.D. Performed By: #### H S TROP ####[facility] [address] [place] [address] [facility] Troponin I.cardiac [Mass/vol ume] in Serum or Plasma by Detection limit <= 0.01 ng/Ordered By: Mejia Aaron on 11-19-2023 Troponin I.cardiac DL <= 0.01 ng/mL [Mass/Vol] 204.7 pg/mL High 0.0-15.0 [facility] Comment on above: Critical Result : Ca lled to and read back by: ZAINA MARLOW at: 11/19/2023 13:33:41 by:[place] Troponin I.cardiac DL <= 0.01 ng/mL [Mass/Vol] Troponin I.cardiac [Mass/volume] in Serum or Plasma by Detection limit <= 0.01 ng/ Critically high 0.0-15.0 [facility] Comment on above: Critical Result : Ca lled to and read back by: ZAINA MARLOW at: 11/19/2023 13:33:41 by:[place] aPTT in Platelet poor plasma by Coagulation assayOrdered By: Mejia Aaron on 11-19-2023 aPTT Coag (PPP) [Time] Activated partial thromboplastin time (aPTT) in platelet poor plasma by coagulation a 25.1-36.5 [facility] Comment on above: A hematocrit value g reater than 55% may lead to inaccurate results in coagulation testing. Patients having hematocrit values >55% require a special collection tube for coagulation studies. Please contact the laboratory at [phone] for redraw instructions. Activated partial thrombopla stin time (aPTT) in platelet poor plasma by coagulation aOrdered By: Sandor Mcduffie on 11-18-2023 aPTT Coag (PPP) [Time] 31.3 s 25.1-36.5 [facility] Comment on above: A hematocrit value g reater than 55% may lead to inaccurate results in coagulation testing. Patients having hematocrit values >55% require a special collection tube for coagulation studies. Please contact the laboratory at [phone] for redraw instructions. Aerobic Cultureon 11-18-2023 Aerobic Culture Normal [facility] Comment on above: Performed By: #### G S, AERC ####[place] [address] [place] [id number] [facility] Aerobic cultureOrdered By: Adamaris rich Galen on 11-18-2023 Bacteria identified Aer cx Nom (Unsp spec) Aerobic culture [facility] Automated basophil %Ordered By: Sandor Mcduffie on 11-18-2023 Basophils/100 WBC (Bld) 0.3 % Normal . [facility] Comment on above: Performed By: #### B ILIT, PTT, CUBLD, BMP, CBC, LACTIC, PT ####[place] [phone] [facility] Automated basophil countOrde red By: Sandor Mcduffie on 11-18-2023 Basophils (Bld) [#/Vol] 0.1 10*3/uL Normal 0.0-0.2 [facility] Comment on above: Result Comment: PERF ORMED BY:[address] [place], [place] [phone] MEDICAL DIRECTORARIE ROJO M.D. Performed By: #### B ILIT, PTT, CUBLD, BMP, CBC, LACTIC, PT ####[place] [id number] [facility] Automated blood monocyte cou ntOrdered By: Sandor Mcduffie on 11-18-2023 Monocytes (Bld) [#/Vol] 1.3 10*3/uL High 0.0-0.8 [facility] Comment on above: Performed By: #### B ILIT, PTT, CUBLD, BMP, CBC, LACTIC, PT ####[place] [id number] [facility] Automated eosinophil %Ordere d By: Sandor Mcduffie on 11-18-2023 Eosinophils/100 WBC (Bld) 0.0 % Normal . [facility] Comment on above: Performed By: #### B ILIT, PTT, CUBLD, BMP, CBC, LACTIC, PT ####[place] [address] Automated eosinophil countOr dered By: Sandor Mcduffie on 11-18-2023 Eosinophils (Bld) [#/Vol] 0.0 10*3/uL Normal 0.0-0.45 [facility] Comment on above: Performed By: #### B ILIT, PTT, CUBLD, BMP, CBC, LACTIC, PT ####[place] [address] [place] [id number] [facility] Automated monocyte %Ordered By: Sandor Mcduffie on 11-18-2023 Monocytes/100 WBC (Bld) 6.4 % Normal . [facility] Comment on above: Performed By: #### B ILIT, PTT, CUBLD, BMP, CBC, LACTIC, PT ####[address] Automated neutrophil %Ordere d By: Sandor Mcduffie on 11-18-2023 Neutrophils/100 WBC (Bld) 89.3 % Normal . [facility] Comment on above: Performed By: #### B ILIT, PTT, CUBLD, BMP, CBC, LACTIC, PT ####[place] [address] [place] [id number] [facility] BNP ser/plasOrdered By: Tristen Mcduffie on 11-18-2023 Natriuretic peptide B (Bld) [Mass/Vol] 418.0 pg/mL High 5-100 [facility] Comment on above: Result Comment: PERF ORMED BY:[address] [place], [place] [phone] MEDICAL BIANCA ROJO M.D. Performed By: #### B MILITARY COMMUNICATIONS SPECIALIST, HS TROP ####[place] [phone] [facility] Bacterial blood cultureOrder ed By: Sandor Mcduffie on 11-18-2023 Bacteria identified Cx Nom (Bld) Bacterial blood culture [facility] Bacteria identified Cx Nom (Bld) Bacterial blood culture [facility] Bacteria identified Cx Nom (Bld) NO GROWTH 5 DAYS [facility] Bacteria identified Cx Nom (Bld) NO GROWTH 5 DAYS [facility] Basic Metabolic Panelon 11-05 Creatinine Clr Calc Pharmacy 41.24 Normal [facility] Comment on above: Performed By: #### B ILIT, PTT, CUBLD, BMP, CBC, LACTIC, PT ####[facility] [place] [address] [facility] GFR/1.73 sq M.predicted MDRD (S/P/Bld) [Vol rate/Area] 43.042 mL/min/{1.73_m2} Normal [facility] Comment on above: Performed By: #### B ILIT, PTT, CUBLD, BMP, CBC, LACTIC, PT ####[facility] [place] [address] [facility] Bilirubin.total [Mass/volume ] in Serum or PlasmaOrdered By: Sandor Mcduffie on 11-18-2023 Bilirubin [Mass/Vol] 1.3 mg/dL High 0.3-1.0 [facility] Comment on above: Samples from patient s who have taken Naproxen have shown spurious elevation in Total Bilirubin levels. A metabolite of Naproxen, O-desmethylnaproxen, has been shown to interfere with the Jendrassik-Grof method for measuring Total Bilirubin. Result Comment: Samp les from patients who have taken Naproxen have shown spurious elevation in Total Bilirubin levels. A metabolite of Naproxen, O-desmethylnaproxen, has been shown to interfere with the Jendrassik-Grof method for measuring Total Bilirubin.PERFORMED BY:[facility] [place], [place] [phone] MEDICAL DIRECTORARIE ROJO M.D. Performed By: #### B ILIT, PTT, CUBLD, BMP, CBC, LACTIC, PT ####[facility] [address] [place] [address] [facility] Blood Cultureon 11-18-2023 Bacteria identified Cx Nom (Bld) NO GROWTH 5 DAYS PERFORMED BY: [facility] [address] [place] [id number] PATHOLOGIST IMMIGRATION OFFICER ARIE ROJO M.D. Normal [facility] Comment on above: Performed By: #### B ILIT, PTT, CUBLD, BMP, CBC, LACTIC, PT ####[place] [address] Bacteria identified Cx Nom (Bld) NO GROWTH 5 DAYS PERFORMED BY: [facility] [address] [facility] [place] [address] PATHOLOGIST IMMIGRATION OFFICER ARIE ROJO M.D. Normal [facility] Comment on above: Performed By: #### B ILIT, PTT, CUBLD, BMP, CBC, LACTIC, PT ####[address] COVID CepheidOrdered By: Gen Mcduffie on 11-18-2023 SARS-CoV-2 (COVID-19) Ab IA Ql Negative Negative [facility] Comment on above: This is a duplicate Cepheid Xpert Xpress CoV-2/Flu/RSV Plus RNA by RT-PCR result to be used for statistical tracking purpose only. SARS-CoV-2 (COVID-19) RNA MITCHELL+probe Ql (Unsp spec) Normal [facility] Comment on above: Performed By: #### C EPHEID NEG, COVID19 FLU RSV ####[address] COVID Cepheid NegativeOrdere d By: Sandor Mcduffie on 11-18-2023 SARS-CoV-2 (COVID-19) Ab IA Ql COVID Cepheid Negative [facility] Comment on above: This is a duplicate Cepheid Xpert Xpress CoV-2/Flu/RSV Plus RNA by RT-PCR result to be used for statistical tracking purpose only. Calcium [Mass/volume] in Ser um or PlasmaOrdered By: Sandor Mcduffie on 11-18-2023 Calcium [Mass/Vol] 9.2 mg/dL Normal 8.6-10.3 [facility] Comment on above: Performed By: #### B ILIT, PTT, CUBLD, BMP, CBC, LACTIC, PT ####[address] [address] [facility] Carbon dioxide, total [Moles /volume] in Serum or PlasmaOrdered By: Sandor Mcduffie on 11-18-2023 CO2 [Moles/Vol] 28.7 mmol/L Normal 21.0-31.0 [facility] Comment on above: Performed By: #### B ILIT, PTT, CUBLD, BMP, CBC, LACTIC, PT ####[place] [phone] [facility] Cepheid COVID PCR Negativeon 11-18-2023 SARS-CoV-2 (COVID-19) RNA MITCHELL+probe Ql (Unsp spec) Negative Normal Negative [facility] Comment on above: Result Comment: This is a duplicate Cepheid Xpert Xpress CoV-2/Flu/RSV Plus RNA by RT-PCR result to be used for statistical tracking purpose only.PERFORMED BY:[address] [place], [place] [phone] MEDICAL DIRECTORARIE ROJO M.D. Performed By: #### C EPHEID NEG, COVID19 FLU RSV ####[place] [phone] [facility] Chloride [Moles/volume] in S cait or PlasmaOrdered By: Sandor Mcduffie on 11-18-2023 Chloride [Moles/Vol] 101 mmol/L Normal 98-107 [facility] Comment on above: Performed By: #### B ILIT, PTT, CUBLD, BMP, CBC, LACTIC, PT ####[place] [phone] [facility] Complete Blood Count Auto Di ffon 11-18-2023 Mean Corpuscular HGB Conc 32.7 g/dL Normal 32.0-35.0 [facility] Comment on above: Performed By: #### B ILIT, PTT, CUBLD, BMP, CBC, LACTIC, PT ####[place] [phone] [facility] Monocytes/100 WBC (Bld) 25.52 % High 0.00-20.00 [facility] Comment on above: Result Comment: For adults in ED, MDW > 20.0 may be associated with a higher risk of sepsis during the first 12 hrs of hospital admission Performed By: #### B ILIT, PTT, CUBLD, BMP, CBC, LACTIC, PT ####[place] [address] NRBC% 0.1 /100{WBC} Normal 0-0.5 [facility] Comment on above: Performed By: #### B ILIT, PTT, CUBLD, BMP, CBC, LACTIC, PT ####[place] [address] Creatinine [Mass/volume] in Serum or PlasmaOrdered By: Sandor Mcduffie on 11-18-2023 Creatinine [Mass/Vol] 1.33 mg/dL High 0.60-1.20 [facility] Comment on above: Performed By: #### B ILIT, PTT, CUBLD, BMP, CBC, LACTIC, PT ####[address] ECG 12 lead ECGon 11-18-2023 ECG 12 lead ECG Normal [facility] ECG 12 lead ECG Normal [facility] Erythrocyte distribution wid th [Ratio] by Automated countOrdered By: Sandor Mcduffie on 11-18-2023 Erythrocyte distribution width (RBC) [Ratio] 14.5 % Normal 11.9-15.3 [facility] Comment on above: Performed By: #### B ILIT, PTT, CUBLD, BMP, CBC, LACTIC, PT ####[address] Erythrocytes [#/volume] in B lood by Automated countOrdered By: Sandor Mcduffie on 11-18-2023 RBC (Bld) [#/Vol] 4.26 10*6/uL Normal 3.60-5.00 [facility] Comment on above: Performed By: #### B ILIT, PTT, CUBLD, BMP, CBC, LACTIC, PT ####[address] [place] [address] [facility] Glucose [Mass/volume] in Ser um or PlasmaOrdered By: Sandor Mcduffie on 11-18-2023 Glucose [Mass/Vol] 146 mg/dL High 70-100 [facility] Comment on above: ADA recommended refe rence rangeRandom Glucose Reference Range is dependent on time and content of last meal. Glucose of more than 200 mg/dL in a nonstressed, ambulatory subject supports the diagnosis of Diabetes Mellitus. Result Comment: [place] om Glucose Reference Range is dependent on time and content of last meal. Glucose of more than 200 mg/dL in a nonstressed, ambulatory subject supports the diagnosis of Diabetes Mellitus. ADA recommended reference range Performed By: #### B ILIT, PTT, CUBLD, BMP, CBC, LACTIC, PT ####[address] [address] [facility] Gram Stainon 11-18-2023 Microscopic observation Gram stain Nom (Unsp spec) Gram Stain Result Gram Positive Cocci RARE EPITHELIAL CELLS 2+ WHITE BLOOD CELLS PERFORMED BY: [facility] [address] [place] [address] PATHOLOGIST IMMIGRATION OFFICER ARIE ROJO M.D. Normal [facility] Comment on above: Performed By: #### G S, AERC ####[address] [address] [facility] Gram stain for investigation of transfusion reactionOrdered By: Mejia Aaron on 11-18-2023 Microscopic observation Gram stain Nom (Unsp spec) [facility] Gram stain microscopyOrdered By: Mejia Aaron on 11-18-2023 Microscopic observation Gram stain Nom (Unsp spec) Gram stain microscopy [facility] Hematocrit [Volume Fraction] of Blood by Automated countOrdered By: Sandor Mcduffie on 11-18-2023 Hematocrit (Bld) [Volume fraction] 37.6 % Normal 34.0-46.4 [facility] Comment on above: Performed By: #### B ILIT, PTT, CUBLD, BMP, CBC, LACTIC, PT ####[address] [address] [facility] Hemoglobin [Mass/volume] in BloodOrdered By: Sandor Mcduffie on 11-18-2023 Hemoglobin (Bld) [Mass/Vol] 12.3 g/dL Normal 11.8-15.4 [facility] Comment on above: Performed By: #### B ILIT, PTT, CUBLD, BMP, CBC, LACTIC, PT ####[place] [address] [place] [address] [facility] INR in Platelet poor plasma by Coagulation assayOrdered By: Sandor Mcduffie on 11-18-2023 INR Coag (PPP) [Relative time] 1.2 {INR} Normal [facility] Comment on above: INR Therapeutic Rang e A) Pre- and Peroperative OAT started two weeks before surgery. NOT HIP SURGERY: 1.5 - 2.5 HIP SURGERY: 2 - 3B) Primary and secondary prevention of venous THROMBOSIS: 2 - 3C) Active venous thrombosis, pulmonary embolismand prevention of recurrent venous thrombosis: 2 - 3D) Prevention of arterial thromboembolismincluding patients with mechanical heart valves: 3 - 4.5 Result Comment: INR Therapeutic Range A) Pre- and Peroperative OAT started two weeks before surgery. NOT HIP SURGERY: 1.5 - 2.5 HIP SURGERY: 2 - 3 B) Primary and secondary prevention of venous THROMBOSIS: 2 - 3 C) Active venous thrombosis, pulmonary embolism and prevention of recurrent venous thrombosis: 2 - 3 D) Prevention of arterial thromboembolism including patients with mechanical heart valves: 3 - 4.5 Performed By: #### B ILIT, PTT, CUBLD, BMP, CBC, LACTIC, PT ####[place] [address] [place] [address] [facility] Lactate [Moles/volume] in Se rum or PlasmaOrdered By: Sandor Mcduffie on 11-18-2023 Lactate [Moles/Vol] 1.6 mmol/L Normal 0.5-2.2 [facility] Comment on above: Result Comment: PERF ORMED BY:[address] [place], [place] [phone] MEDICAL BIANCA ROJO M.D. Performed By: #### B ILIT, PTT, CUBLD, BMP, CBC, LACTIC, PT ####[place] [address] [place] [id number] [facility] Lactate [Moles/Vol] Lactate [Moles/volum e] in Serum or Plasma 0.5-2.2 [facility] Leukocytes [#/volume] correc hugh for nucleated erythrocytes in Blood by Automated counOrdered By: Sandor Mcduffie on 11-18-2023 WBC corrected for nucl RBC Auto (Bld) [#/Vol] 20.1 10*3/uL High 3.8-11.6 [facility] Leukocytes [#/volume] in Blo od by Automated countOrdered By: Sandor Mcduffie on 11-18-2023 WBC (Bld) [#/Vol] 20.1 10*3/uL High 3.8-11.6 [facility] Comment on above: Performed By: #### B ILIT, PTT, CUBLD, BMP, CBC, LACTIC, PT ####[place] [id number] [facility] Lymphocytes [#/volume] in Bl ood by Automated countOrdered By: Sandor Mcduffie on 11-18-2023 Lymphocytes (Bld) [#/Vol] 0.8 10*3/uL Low 1.00-4.8 [facility] Comment on above: Performed By: #### B ILIT, PTT, CUBLD, BMP, CBC, LACTIC, PT ####[place] [id number] [facility] Lymphocytes/100 leukocytes i n Blood by Automated countOrdered By: Sandor Mcduffie on 11-18-2023 Lymphocytes/100 WBC (Bld) 4.0 % Normal . [facility] Comment on above: Performed By: #### B ILIT, PTT, CUBLD, BMP, CBC, LACTIC, PT ####[place] [id number] [facility] MCH [Entitic mass] by Automa hugh countOrdered By: Sandor Mcduffie on 11-18-2023 MCH (RBC) [Entitic mass] 28.9 pg Normal 24.7-34.3 [facility] Comment on above: Performed By: #### B ILIT, PTT, CUBLD, BMP, CBC, LACTIC, PT ####[place] [address] MCHC Auto (RBC) [Mass/Vol]Or dered By: Sandor Mcduffie on 11-18-2023 MCHC (RBC) [Mass/Vol] 32.7 g/dL 32.0-35.0 [facility] MCV [Entitic volume] by Auto mated countOrdered By: Sandor Mcduffie on 11-18-2023 MCV (RBC) [Entitic vol] 88.2 fL Normal 80-100 [facility] Comment on above: Performed By: #### B ILIT, PTT, CUBLD, BMP, CBC, LACTIC, PT ####[place] [address] Monocyte distribution width [Entitic volume] in Blood by AutomatedOrdered By: Sandor Mcduffie on 11-18-2023 Monocyte distribution width Auto (Bld) [Entitic vol] 25.52 % High 0.00-20.00 [facility] Comment on above: For adults in ED, MD W > 20.0 may be associated with a higher risk of sepsis during the first 12 hrs of hospital admission Monocyte distribution width Auto (Bld) [Entitic vol] Monocyte distribution width [Entitic volume] in Blood by Automated High 0.00-20.00 [facility] Comment on above: For adults in ED, MD W > 20.0 may be associated with a higher risk of sepsis during the first 12 hrs of hospital admission Natriuretic peptide B [Mass/ Vol]Ordered By: Sandor Mcduffie on 11-18-2023 Natriuretic peptide B (Bld) [Mass/Vol] BNP ser/plas High 5-100 [facility] Neutrophils [#/volume] in Bl ood by Automated countOrdered By: Sandor Mcduffie on 11-18-2023 Neutrophils (Bld) [#/Vol] 18.0 10*3/uL High 1.8-7.7 [facility] Comment on above: Performed By: #### B ILIT, PTT, CUBLD, BMP, CBC, LACTIC, PT ####[address] No Panel InformationOrdered By: Sandor Mcduffie on 11-18-2023 Estimated GFR (CKD-EPI) 43.042 mL/Min [facility] Creatinine Clearance (Chem 41.24 [facility] Nucleated erythrocytes [Pres ence] in Blood by Automated countOrdered By: Sandor Mcduffie on 11-18-2023 Nucleated RBC Auto Ql (Bld) 0.1 /100{WBC} 0-0.5 [facility] Partial Thromboplastin Timeo n 11-18-2023 aPTT Coag (Bld) [Time] 31.3 s Normal 25.1-36.5 [facility] Comment on above: Result Comment: A he matocrit value greater than 55% may lead to inaccurate results in coagulation testing. Patients having hematocrit values >55% require a special collection tube for coagulation studies. Please contact the laboratory at [phone] for redraw instructions.PERFORMED BY:[place] [address] [place], [place] [phone] MEDICAL DIRECTORARIE ROJO M.D. Performed By: #### B ILIT, PTT, CUBLD, BMP, CBC, LACTIC, PT ####[place] [id number] [facility] Platelet mean volume [Entiti c volume] in Blood by Automated countOrdered By: Sandor Mcduffie on 11-18-2023 Platelet mean volume (Bld) [Entitic vol] 8.3 fL Normal 6.3-10.7 [facility] Comment on above: Performed By: #### B ILIT, PTT, CUBLD, BMP, CBC, LACTIC, PT ####[place] [id number] [facility] Platelets [#/volume] in Bloo d by Automated countOrdered By: Sandor Mcduffie on 11-18-2023 Platelets (Bld) [#/Vol] 193 10*3/uL Normal 150-450 [facility] Comment on above: Performed By: #### B ILIT, PTT, CUBLD, BMP, CBC, LACTIC, PT ####[place] [id number] [facility] Potassium [Moles/volume] in Serum or PlasmaOrdered By: Sandor Mcduffie on 11-18-2023 Potassium [Moles/Vol] 3.3 mmol/L Low 3.5-5.1 [facility] Comment on above: Performed By: #### B ILIT, PTT, CUBLD, BMP, CBC, LACTIC, PT ####[place] [address] [place] [address] [facility] Prothrombin time (PT)Ordered By: Sandor Mcduffie on 11-18-2023 PT Coag (PPP) [Time] 14.3 s High 9.0-12.9 [facility] Comment on above: A hematocrit value g reater than 55% may lead to inaccurate results in coagulation testing. Patients having hematocrit values >55% require a special collection tube for coagulation studies. Please contact the laboratory at [phone] for redraw instructions. Result Comment: A he matocrit value greater than 55% may lead to inaccurate results in coagulation testing. Patients having hematocrit values >55% require a special collection tube for coagulation studies. Please contact the laboratory at [phone] for redraw instructions. Performed By: #### B ILIT, PTT, CUBLD, BMP, CBC, LACTIC, PT ####[place] [address] [place] [address] [facility] Respiratory specimen influen za A virus, influenza B virus, respiratory syncytical virOrdered By: Sandor Mcduffie on 11-18-2023 SARS-CoV-2 (COVID-19) RNA MITCHELL+probe Ql (Unsp spec) Respiratory specimen influenza A virus, influenza B virus, respiratory syncytical vir [facility] Serum or plasma anion gap de terminationOrdered By: Sandor Mcduffie on 11-18-2023 Anion gap [Moles/Vol] 16.6 mmol/L High 6.0-15.0 [facility] Comment on above: Performed By: #### B ILIT, PTT, CUBLD, BMP, CBC, LACTIC, PT ####[place] [address] [place] [address] [facility] Sodium [Moles/volume] in Ser um or PlasmaOrdered By: Sandor Mcduffie on 11-18-2023 Sodium [Moles/Vol] 143 mmol/L Normal 136-145 [facility] Comment on above: Performed By: #### B ILIT, PTT, CUBLD, BMP, CBC, LACTIC, PT ####[address] [address] [facility] Troponin I High Sensitivityo n 11-18-2023 Troponin I High Sensitivity 421.1 pg/mL Off scale high 0.0-15.0 [facility] Comment on above: Result Comment: Crit ical Result : Called to and read back by: EJ JOHNSON at: 11/18/2023 19:49:36 by:LFMPERFORMED BY:[address] ERNANDEZROB[place], [place] [phone] MEDICAL DIRECTORARIE ROJO M.D. Performed By: #### H S TROP ####[address] [address] [facility] Troponin I High Sensitivity 500.7 pg/mL Off scale high 0.0-15.0 [facility] Comment on above: Result Comment: Crit ical Result : Called to and read back by: CADENCE ALEXANDER at: 11/18/2023 13:19:45 by:RGPERFORMED BY:[place] [address] [address] [place], [place] [phone] MEDICAL DIRECTORARIE ROJO M.D. Performed By: #### H S TROP ####[address] [address] [facility] Troponin I High Sensitivity 311.7 pg/mL Off scale high 0.0-15.0 [facility] Comment on above: Result Comment: Crit ical Result : Called to and read back by: CHRISTOPHER NUÑEZ at: 11/18/2023 11:46:30 by:RGPERFORMED BY:[address] ERNANDEZROBERT, [place] [phone] MEDICAL DIRECTORARIE ROJO M.D. Performed By: #### B MILITARY COMMUNICATIONS SPECIALIST, HS TROP ####[place] [address] [place] [address] [facility] Troponin I.cardiac [Mass/vol ume] in Serum or Plasma by Detection limit <= 0.01 ng/Ordered By: Sandor Mcduffie on 11-18-2023 Troponin I.cardiac DL <= 0.01 ng/mL [Mass/Vol] 500.7 pg/mL High 0.0-15.0 [facility] Comment on above: Critical Result : Ca lled to and read back by: CADENCE ALEXANDER at: 11/18/2023 13:19:45 by:MARJORIE Urea nitrogen [Mass/volume] in Serum or PlasmaOrdered By: Sandor Mcduffie on 11-18-2023 Urea nitrogen [Mass/Vol] 24 mg/dL Normal 09-28 [facility] Comment on above: Performed By: #### B ILIT, PTT, CUBLD, BMP, CBC, LACTIC, PT ####[address] [address] [facility] XR chest 2V*on 11-18-2023 XR chest 2V* Normal [facility] A1C with Estimated Average G luon 10-14-2023 Glucose [Mass/Vol] 108 mg/dL Normal [facility] Comment on above: Result Comment: PERF ORMED BY:[address] [place], [place] [phone] MEDICAL DIRECTORARIE ROJO M.D. Performed By: #### C MP, LIPID, CBC, A1C WTH eA, TSH3, BNP, PTH ####[address] [place] [place] [address] [facility] Alanine aminotransferase [En zymatic activity/volume] in Serum or PlasmaOrdered By: Neto Arauz on 10-14-2023 ALT [Catalytic activity/Vol] 27 U/L Normal [facility] Comment on above: Performed By: #### C MP, LIPID, CBC, A1C WTH eA, TSH3, BNP, PTH ####[address] [address] [facility] Albumin [Mass/volume] in Ser um or Plasma by Bromocresol green (BCG) dye binding methoOrdered By: Neto Arauz on 10-14-2023 Albumin BCG dye [Mass/Vol] 4.2 g/dL 3.5-5.7 [facility] Alkaline phosphatase [Enzyma tic activity/volume] in Serum or PlasmaOrdered By: Neto Arauz on 10-14-2023 ALP [Catalytic activity/Vol] 132 U/L High 34-104 [facility] Comment on above: Performed By: #### C MP, LIPID, CBC, A1C WTH eA, TSH3, BNP, PTH ####[place] [address] Aspartate aminotransferase [ Enzymatic activity/volume] in Serum or PlasmaOrdered By: Neto Arauz on 10-14-2023 AST [Catalytic activity/Vol] 28 U/L Normal 13-39 [facility] Comment on above: Performed By: #### C MP, LIPID, CBC, A1C WTH eA, TSH3, BNP, PTH ####[address] Automated basophil %Ordered By: Neto Arauz on 10-14-2023 Basophils/100 WBC (Bld) 0.8 % Normal . [facility] Comment on above: Performed By: #### C MP, LIPID, CBC, A1C WTH eA, TSH3, BNP, PTH ####[address] Automated basophil countOrde red By: Neto Arauz on 10-14-2023 Basophils (Bld) [#/Vol] 0.0 10*3/uL Normal 0.0-0.2 [facility] Comment on above: Result Comment: PERF ORMED BY:[address] [place], [place] [phone] MEDICAL DIRECTORARIE ROJO M.D. Performed By: #### C MP, LIPID, CBC, A1C WTH eA, TSH3, BNP, PTH ####[place] [id number] [facility] Automated blood monocyte cou ntOrdered By: Neto Arauz on 10-14-2023 Monocytes (Bld) [#/Vol] 0.5 10*3/uL Normal 0.0-0.8 [facility] Comment on above: Performed By: #### C MP, LIPID, CBC, A1C WTH eA, TSH3, BNP, PTH ####[address] Automated eosinophil %Ordere d By: Neto Arauz on 10-14-2023 Eosinophils/100 WBC (Bld) 7.0 % Normal . [facility] Comment on above: Performed By: #### C MP, LIPID, CBC, A1C WTH eA, TSH3, BNP, PTH ####[address] Automated eosinophil countOr dered By: Neto Arauz on 10-14-2023 Eosinophils (Bld) [#/Vol] 0.3 10*3/uL Normal 0.0-0.45 [facility] Comment on above: Performed By: #### C MP, LIPID, CBC, A1C WTH eA, TSH3, BNP, PTH ####[address] Automated monocyte %Ordered By: Neto Arauz on 10-14-2023 Monocytes/100 WBC (Bld) 11.9 % Normal . [facility] Comment on above: Performed By: #### C MP, LIPID, CBC, A1C WTH eA, TSH3, BNP, PTH ####[address] Automated neutrophil %Ordere d By: Neto Arauz on 10-14-2023 Neutrophils/100 WBC (Bld) 59.9 % Normal . [facility] Comment on above: Performed By: #### C MP, LIPID, CBC, A1C WTH eA, TSH3, BNP, PTH ####[address] BNP ser/plasOrdered By: Lata Arauz on 10-14-2023 Natriuretic peptide B (Bld) [Mass/Vol] 31.0 pg/mL Normal 5-100 [facility] Comment on above: Result Comment: PERF ORMED BY:[address] HERNÁNDEZWH[place], [place] [phone] MEDICAL DIRECTORARIE ROJO M.D. Performed By: #### C MP, LIPID, CBC, A1C WTH eA, TSH3, BNP, PTH ####[address] [address] [facility] Bilirubin.total [Mass/volume ] in Serum or PlasmaOrdered By: Neto Arauz on 10-14-2023 Bilirubin [Mass/Vol] 0.5 mg/dL Normal 0.3-1.0 [facility] Comment on above: Performed By: #### C MP, LIPID, CBC, A1C WTH eA, TSH3, BNP, PTH ####[address] [address] [facility] Calcium [Mass/volume] in Ser um or PlasmaOrdered By: Neto Arauz on 10-14-2023 Calcium [Mass/Vol] 8.9 mg/dL Normal 8.6-10.3 [facility] Comment on above: Performed By: #### C MP, LIPID, CBC, A1C WTH eA, TSH3, BNP, PTH ####[place] [id number] [facility] Carbon dioxide, total [Moles /volume] in Serum or PlasmaOrdered By: Neto Arauz on 10-14-2023 CO2 [Moles/Vol] 35.5 mmol/L High 21.0-31.0 [facility] Comment on above: Performed By: #### C MP, LIPID, CBC, A1C WTH eA, TSH3, BNP, PTH ####[address] [address] [place] Chloride [Moles/volume] in S cait or PlasmaOrdered By: Neto Arauz on 10-14-2023 Chloride [Moles/Vol] 99 mmol/L Normal 98-107 [facility] Comment on above: Performed By: #### C MP, LIPID, CBC, A1C WTH eA, TSH3, BNP, PTH ####[address] [address] [facility] Cholesterol [Mass/volume] in Serum or PlasmaOrdered By: Neto Arauz on 10-14-2023 Cholesterol [Mass/Vol] 173 mg/dL Normal 140-200 [facility] Comment on above: Chol less than 200 m g/dl low riskChol 201-239 mg/dl borderline riskChol 240 mg/dl and greater high risk Result Comment: Chol less than 200 mg/dl low risk Chol 201-239 mg/dl borderline risk Chol 240 mg/dl and greater high risk Performed By: #### C MP, LIPID, CBC, A1C WTH eA, TSH3, BNP, PTH ####[facility] [id number] [place] [address] [facility] Cholesterol in LDL Calc [Mas s/Vol]Ordered By: Neto Arauz on 10-14-2023 Cholesterol in LDL [Mass/Vol] 91 mg/dL 0-100 [facility] Comment on above: LDL ATP III CLASSIFI CATIONLDL less than 100 mg/dL OptimalLDL 100-129 mg/dL Near or above optimalLDL 130-159 mg/dL Borderline highLDL 160-189 mg/dL HighLDL greater than 189 mg/dL Very high Cholesterol in VLDL Calc [Ma ss/Vol]Ordered By: Neto Arauz on 10-14-2023 Cholesterol in VLDL [Mass/Vol] 17 mg/dL [facility] Complete Blood Count Auto Di ffon 10-14-2023 Mean Corpuscular HGB Conc 32.6 g/dL Normal 32.0-35.0 [facility] Comment on above: Performed By: #### C MP, LIPID, CBC, A1C WTH eA, TSH3, BNP, PTH ####[facility] [id number] [place] [address] [facility] NRBC% 0.2 /100{WBC} Normal 0-0.5 [facility] Comment on above: Performed By: #### C MP, LIPID, CBC, A1C WTH eA, TSH3, BNP, PTH ####[facility] [place] [address] [facility] Comprehensive Metabolic Pane lelia 10-14-2023 Albumin [Mass/Vol] 4.2 g/dL Normal 3.5-5.7 [facility] Comment on above: Performed By: #### C MP, LIPID, CBC, A1C WTH eA, TSH3, BNP, PTH ####[place] [id number] [facility] GFR/1.73 sq M.predicted MDRD (S/P/Bld) [Vol rate/Area] 50.199 mL/min/{1.73_m2} Normal [facility] Comment on above: Performed By: #### C MP, LIPID, CBC, A1C WTH eA, TSH3, BNP, PTH ####[address] [address] [facility] Creatinine [Mass/volume] in Serum or PlasmaOrdered By: Neto Arauz on 10-14-2023 Creatinine [Mass/Vol] 1.17 mg/dL Normal 0.60-1.20 [facility] Comment on above: Performed By: #### C MP, LIPID, CBC, A1C WTH eA, TSH3, BNP, PTH ####[place] [id number] [facility] Erythrocyte distribution wid th [Ratio] by Automated countOrdered By: Neto Arauz on 10-14-2023 Erythrocyte distribution width (RBC) [Ratio] 16.7 % High 11.9-15.3 [facility] Comment on above: Performed By: #### C MP, LIPID, CBC, A1C WTH eA, TSH3, BNP, PTH ####[place] [id number] [facility] Erythrocytes [#/volume] in B lood by Automated countOrdered By: Neto Arauz on 10-14-2023 RBC (Bld) [#/Vol] 3.82 10*6/uL Normal 3.60-5.00 [facility] Comment on above: Performed By: #### C MP, LIPID, CBC, A1C WTH eA, TSH3, BNP, PTH ####[place] [phone] [facility] Glucose [Mass/volume] in Ser um or PlasmaOrdered By: Neto Arauz on 10-14-2023 Glucose [Mass/Vol] 97 mg/dL Normal 70-100 [facility] Comment on above: ADA recommended refe rence rangeRandom Glucose Reference Range is dependent on time and content of last meal. Glucose of more than 200 mg/dL in a nonstressed, ambulatory subject supports the diagnosis of Diabetes Mellitus. Result Comment: [place] om Glucose Reference Range is dependent on time and content of last meal. Glucose of more than 200 mg/dL in a nonstressed, ambulatory subject supports the diagnosis of Diabetes Mellitus. ADA recommended reference range Performed By: #### C MP, LIPID, CBC, A1C WTH eA, TSH3, BNP, PTH ####[facility] [place] [address] [facility] Glucose mean value [Mass/vol ume] in Blood Estimated from glycated hemoglobinOrdered By: Neto Arauz on 10-14-2023 Average glucose Estimated from glycated hemoglobin (Bld) [Mass/Vol] 108 mg/dL [facility] Hematocrit [Volume Fraction] of Blood by Automated countOrdered By: Neto Arauz on 10-14-2023 Hematocrit (Bld) [Volume fraction] 35.4 % Normal 34.0-46.4 [facility] Comment on above: Performed By: #### C MP, LIPID, CBC, A1C WTH eA, TSH3, BNP, PTH ####[place] [address] [place] [id number] [facility] Hemoglobin A1c percentageOrd ered By: Neto Arauz on 10-14-2023 HbA1c (Bld) [Mass fraction] 5.4 % Normal 4.3-5.6 [facility] Comment on above: Increased risk for d iabetes: 5.7 - 6.4diabetes: >6.4glycemic control for adults with diabetes: <7.0 Result Comment: Incr eased risk for diabetes: 5.7 - 6.4 diabetes: >6.4 glycemic control for adults with diabetes: <7.0 Performed By: #### C MP, LIPID, CBC, A1C WTH eA, TSH3, BNP, PTH ####[place] [address] [place] [address] [facility] Hemoglobin [Mass/volume] in BloodOrdered By: Neto Arauz on 10-14-2023 Hemoglobin (Bld) [Mass/Vol] 11.5 g/dL Low 11.8-15.4 [facility] Comment on above: Performed By: #### C MP, LIPID, CBC, A1C WTH eA, TSH3, BNP, PTH ####[facility] [id number] [place] [id number] [facility] Leukocytes [#/volume] correc hugh for nucleated erythrocytes in Blood by Automated counOrdered By: Neto Arauz on 10-14-2023 WBC corrected for nucl RBC Auto (Bld) [#/Vol] 4.3 10*3/uL 3.8-11.6 [facility] Leukocytes [#/volume] in Blo od by Automated countOrdered By: Neto Arauz on 10-14-2023 WBC (Bld) [#/Vol] 4.3 10*3/uL Normal 3.8-11.6 [facility] Comment on above: Performed By: #### C MP, LIPID, CBC, A1C WTH eA, TSH3, BNP, PTH ####[facility] [id number] [place] [id number] [facility] Lipid Panelon 10-14-2023 LDL Cholesterol,Calculated 91 mg/dL Normal 0-100 [facility] Comment on above: Result Comment: LDL ATP III CLASSIFICATION LDL less than 100 mg/dL Optimal LDL 100-129 mg/dL Near or above optimal LDL 130-159 mg/dL Borderline high LDL 160-189 mg/dL High LDL greater than 189 mg/dL Very high Performed By: #### C MP, LIPID, CBC, A1C WTH eA, TSH3, BNP, PTH ####[facility] [id number] [place] [id number] [facility] Triglyceride w/Reflex 85 mg/dL Normal 0-149 [facility] Comment on above: Result Comment: TRIG ATP III CLASSIFICATION TRIG less than 150 mg/dL Normal TRIG 150-199 mg/dL Borderline high TRIG 200-500 mg/dL High TRIG greater than 500 mg/dL Very high Standard traceable to the Center for Disease Conrtrol and Prevention (CDC) test method. Performed By: #### C MP, LIPID, CBC, A1C WTH eA, TSH3, BNP, PTH ####[facility] VLDL CHOLESTEROL 17 mg/dL Normal [facility] Comment on above: Performed By: #### C MP, LIPID, CBC, A1C WTH eA, TSH3, BNP, PTH ####[place] [address] Lymphocytes [#/volume] in Bl ood by Automated countOrdered By: Neto Arauz on 10-14-2023 Lymphocytes (Bld) [#/Vol] 0.9 10*3/uL Low 1.00-4.8 [facility] Comment on above: Performed By: #### C MP, LIPID, CBC, A1C WTH eA, TSH3, BNP, PTH ####[place] [address] Lymphocytes/100 leukocytes i n Blood by Automated countOrdered By: Neto Arauz on 10-14-2023 Lymphocytes/100 WBC (Bld) 20.4 % Normal . [facility] Comment on above: Performed By: #### C MP, LIPID, CBC, A1C WTH eA, TSH3, BNP, PTH ####[place] [address] MCH [Entitic mass] by Automa hugh countOrdered By: Neto Arauz on 10-14-2023 MCH (RBC) [Entitic mass] 30.2 pg Normal 24.7-34.3 [facility] Comment on above: Performed By: #### C MP, LIPID, CBC, A1C WTH eA, TSH3, BNP, PTH ####[address] MCHC Auto (RBC) [Mass/Vol]Or dered By: Neto Arauz on 10-14-2023 MCHC (RBC) [Mass/Vol] 32.6 g/dL 32.0-35.0 [facility] MCV [Entitic volume] by Auto mated countOrdered By: Neto Arauz on 10-14-2023 MCV (RBC) [Entitic vol] 92.6 fL Normal 80-100 [facility] Comment on above: Performed By: #### C MP, LIPID, CBC, A1C WTH eA, TSH3, BNP, PTH ####[place] [address] [place] [id number] [facility] Neutrophils [#/volume] in Bl ood by Automated countOrdered By: Neto Arauz on 10-14-2023 Neutrophils (Bld) [#/Vol] 2.6 10*3/uL Normal 1.8-7.7 [facility] Comment on above: Performed By: #### C MP, LIPID, CBC, A1C WTH eA, TSH3, BNP, PTH ####[place] [phone] [facility] No Panel InformationOrdered By: eNto Arauz on 10-14-2023 Estimated GFR (CKD-EPI) 50.199 mL/Min [facility] Creatinine Clearance (Chem N/A [facility] Nucleated erythrocytes [Pres ence] in Blood by Automated countOrdered By: Neto Arauz on 10-14-2023 Nucleated RBC Auto Ql (Bld) 0.2 /100{WBC} 0-0.5 [facility] Parathyrin.intact [Mass/volu me] in Serum or PlasmaOrdered By: Neto Arauz on 10-14-2023 Parathyrin.intact [Mass/Vol] 69.7 pg/mL [facility] Parathyroid Hormone Intacton 10-14-2023 Parathyroid Hormone Intact 69.7 pg/mL Normal [facility] Comment on above: Result Comment: PERF ORMED BY:[address] [place], [place] [phone] MEDICAL DIRECTORARIE ROJO M.D. Performed By: #### C MP, LIPID, CBC, A1C WTH eA, TSH3, BNP, PTH ####[place] [phone] [facility] Platelet mean volume [Entiti c volume] in Blood by Automated countOrdered By: Neto Arauz on 10-14-2023 Platelet mean volume (Bld) [Entitic vol] 8.1 fL Normal 6.3-10.7 [facility] Comment on above: Performed By: #### C MP, LIPID, CBC, A1C WTH eA, TSH3, BNP, PTH ####[place] [phone] [facility] Platelets [#/volume] in Bloo d by Automated countOrdered By: Neto Arauz on 10-14-2023 Platelets (Bld) [#/Vol] 191 10*3/uL Normal 150-450 [facility] Comment on above: Performed By: #### C MP, LIPID, CBC, A1C WTH eA, TSH3, BNP, PTH ####[place] [phone] [facility] Potassium [Moles/volume] in Serum or PlasmaOrdered By: Neto Arauz on 10-14-2023 Potassium [Moles/Vol] 3.6 mmol/L Normal 3.5-5.1 [facility] Comment on above: Performed By: #### C MP, LIPID, CBC, A1C WTH eA, TSH3, BNP, PTH ####[address] Protein [Mass/volume] in Ser um or PlasmaOrdered By: Neto Arauz on 10-14-2023 Protein [Mass/Vol] 6.3 g/dL Low 6.4-8.9 [facility] Comment on above: Performed By: #### C MP, LIPID, CBC, A1C WTH eA, TSH3, BNP, PTH ####[place] [phone] [facility] Serum globulin measurement b y calculation (mass/volume)Ordered By: Neto Arauz on 10-14-2023 Globulin (S) [Mass/Vol] 2.1 g/dL [facility] Comment on above: Performed By: #### C MP, LIPID, CBC, A1C WTH eA, TSH3, BNP, PTH ####[place] [phone] [facility] Serum or plasma albumin/glob ulin mass ratioOrdered By: Neto Arauz on 10-14-2023 Albumin/Globulin [Mass ratio] 2.0 {ratio} [facility] Comment on above: Performed By: #### C MP, LIPID, CBC, A1C WTH eA, TSH3, BNP, PTH ####[place] [address] Serum or plasma anion gap de terminationOrdered By: Neto Arauz on 10-14-2023 Anion gap [Moles/Vol] 11.1 mmol/L Normal 6.0-15.0 [facility] Comment on above: Performed By: #### C MP, LIPID, CBC, A1C WTH eA, TSH3, BNP, PTH ####[place] [address] Serum or plasma high density lipoprotein (HDL) cholesterol measurementOrdered By: Neto Aaruz on 10-14-2023 Cholesterol in HDL [Mass/Vol] 65 mg/dL Normal 23-92 [facility] Comment on above: HDL CHOL ATP-III CLA SSIFICATION Cardiovascular RiskHDL > or equal to 60 mg/dL LOWHDL < 40 mg/dL HIGH Result Comment: HDL CHOL ATP-III CLASSIFICATION Cardiovascular Risk HDL > or equal to 60 mg/dL LOW HDL < 40 mg/dL HIGH Performed By: #### C MP, LIPID, CBC, A1C WTH eA, TSH3, BNP, PTH ####[place] [address] Serum or plasma total choles terol/high density lipoprotein (HDL) cholesterol mass ratOrdered By: Neto Arauz on 10-14-2023 Cholesterol.total/Chol esterol in HDL [Mass ratio] 2.7 {ratio} Normal <5.0 [facility] Comment on above: Performed By: #### C MP, LIPID, CBC, A1C WTH eA, TSH3, BNP, PTH ####[address] Sodium [Moles/volume] in Ser um or PlasmaOrdered By: Neto Arauz on 10-14-2023 Sodium [Moles/Vol] 142 mmol/L Normal 136-145 [facility] Comment on above: Performed By: #### C MP, LIPID, CBC, A1C WTH eA, TSH3, BNP, PTH ####[facility] [place] [address] [facility] Thyrotropin [Units/volume] i n Serum or PlasmaOrdered By: Neto Arauz on 10-14-2023 TSH Qn 0.66 m[IU]/L Normal 0.45-5.33 [facility] Comment on above: Result Comment: PERF ORMED BY:[address] [place], [place] [phone] MEDICAL DIRECTORARIE ROJO M.D. Performed By: #### C MP, LIPID, CBC, A1C WTH eA, TSH3, BNP, PTH ####[place] [address] [place] [address] [facility] Triglyceride [Mass/volume] i n Serum or PlasmaOrdered By: Neto Arauz on 10-14-2023 Triglyceride [Mass/Vol] 85 mg/dL 0-149 [facility] Comment on above: TRIG ATP III CLASSIF ICATIONTRIG less than 150 mg/dL NormalTRIG 150-199 mg/dL Borderline highTRIG 200-500 mg/dL High TRIG greater than 500 mg/dL Very highStandard traceable to the Center for Disease Conrtrol and Prevention (CDC) test method. Urea nitrogen [Mass/volume] in Serum or PlasmaOrdered By: Neto Arauz on 10-14-2023 Urea nitrogen [Mass/Vol] 15 mg/dL Normal 7-25 [facility] Comment on above: Performed By: #### C MP, LIPID, CBC, A1C WTH eA, TSH3, BNP, PTH ####[place] [address] [place] [address] [facility] Vitamin D 25 Hydroxy Totalon 10-14-2023 Vitamin D 25 Hydroxy Total 65.2 ng/mL Normal 30-100 [facility] Comment on above: Order Comment: Reaso n for Exam Vitamin D deficiency Result Comment: ADRI MIN D STATUS 25([place])VITAMIN D RANGE (ng/mL) Deficient <20 Insufficient 20 to <30 Sufficient 30 to 100 Reference: Frannie MF,Oumar NC, Radha MCGOWAN, et al. Evaluation,treatment, and prevention of vitamin D deficiency; an Endocrine Society clinical practice guideline. JCEM. 2010; 96(7):191-.PERFORMED BY:[address] [place], [place] [phone] MEDICAL DIRECTORARIE ROJO M.D. Performed By: #### V [id number] ####[facility] [place] [address] [facility] Vitamin D+Metabolites [Mass/ volume] in Serum or PlasmaOrdered By: Neto Arauz on 10-14-2023 Vitamin D+Metabolites [Mass/Vol] 65.2 ng/mL 30-100 [facility] Comment on above: VITAMIN D STATUS 25( [place])VITAMIN D RANGE (ng/mL) Deficient <20 Insufficient 20 to <30Sufficient 30 to 100Reference: Frannie MF,Oumar JOHNSON, Radha MCGOWAN, et al. Evaluation,treatment, and prevention of vitamin D deficiency; an Endocrine Society clinical practice guideline. JCEM. 2010; 96(7):1911-. Albumin [Mass/volume] in Ser um or Plasma by Bromocresol green (BCG) dye binding methoOrdered By: Keena Kern on 08-11-2023 Albumin BCG dye [Mass/Vol] 3.5 g/dL 3.5-5.7 [facility] Calcium [Mass/volume] in Ser um or PlasmaOrdered By: Keena Kern on 08-11-2023 Calcium [Mass/Vol] 9.4 mg/dL Normal 8.6-10.3 [facility] Comment on above: Performed By: #### R ENAL ####[place] [address] [place] [address] [facility] Capillary blood glucose dilia urement by glucometer (mass/volume)Ordered By: Frank Hudson on 08-11-2023 Glucose [Mass/Vol] 91 mg/dL Normal [facility] Comment on above: Random Glucose Refer ence Range is dependent on time and content of last meal. Glucose of more than 200 mg/dL in a nonstressed, ambulatory subject supports the diagnosis of Diabetes Mellitus. Result Comment: [place] om Glucose Reference Range is dependent on time and content of last meal. Glucose of more than 200 mg/dL in a nonstressed, ambulatory subject supports the diagnosis of Diabetes Mellitus. Performed By: #### G LULS ####Point of Care testing, Carbon dioxide, total [Moles /volume] in Serum or PlasmaOrdered By: Keena Kern on 08-11-2023 CO2 [Moles/Vol] 28.1 mmol/L Normal 21.0-31.0 [facility] Comment on above: Performed By: #### R ENAL ####[address] Chloride [Moles/volume] in S cait or PlasmaOrdered By: Keena Kern on 08-11-2023 Chloride [Moles/Vol] 103 mmol/L Normal 98-107 [facility] Comment on above: Performed By: #### R ENAL ####[place] [phone] [facility] Creatinine [Mass/volume] in Serum or PlasmaOrdered By: Keena Kern on 08-11-2023 Creatinine [Mass/Vol] 1.11 mg/dL Normal 0.60-1.20 [facility] Comment on above: Performed By: #### R ENAL ####[place] [phone] [facility] Erythrocyte distribution wid th [Ratio] by Automated countOrdered By: Frank Handyr on 08-11-2023 Erythrocyte distribution width (RBC) [Ratio] 13.5 % Normal 11.9-15.3 [facility] Comment on above: Performed By: #### C BCNO ####[place] [phone] [facility] Erythrocytes [#/volume] in B lood by Automated countOrdered By: Obdarryldagood Daromar on 08-11-2023 RBC (Bld) [#/Vol] 3.55 10*6/uL Low 3.60-5.00 [facility] Comment on above: Performed By: #### C BCNO ####[place] [phone] [facility] Glucose Poct Glucometerson 0 08-11-2023 Commemt1 Glu2: Cleaned Meter Normal [facility] Comment on above: Result Comment: PERF ORMED BY:[facility] [place], [place] [phone] MEDICAL DIRECTORARIE ROJO M.D. Performed By: #### G LULS ####Point of Care testing, Commemt1 Glu2: Cleaned Meter Normal [facility] Comment on above: Result Comment: PERF ORMED BY:[place] [address] [place], [place] [phone] MEDICAL DIRECTORARIE ROJO M.D. Performed By: #### G LULS ####Point of Care testing, Glucose [Mass/Vol] 73 mg/dL Normal [facility] Comment on above: Result Comment: [place] om Glucose Reference Range is dependent on time and content of last meal. Glucose of more than 200 mg/dL in a nonstressed, ambulatory subject supports the diagnosis of Diabetes Mellitus. Performed By: #### G LULS ####Point of Care testing, Glucose [Mass/volume] in Ser um or PlasmaOrdered By: Keena Kern on 08-11-2023 Glucose [Mass/Vol] 73 mg/dL Normal 70-100 [facility] Comment on above: ADA recommended refe rence rangeRandom Glucose Reference Range is dependent on time and content of last meal. Glucose of more than 200 mg/dL in a nonstressed, ambulatory subject supports the diagnosis of Diabetes Mellitus. Result Comment: [place] Glucose Reference Range is dependent on time and content of last meal. Glucose of more than 200 mg/dL in a nonstressed, ambulatory subject supports the diagnosis of Diabetes Mellitus. ADA recommended reference range Performed By: #### R ENAL ####[facility] [address] [place] [address] [facility] Hematocrit [Volume Fraction] of Blood by Automated countOrdered By: Frank Hudson on 08-11-2023 Hematocrit (Bld) [Volume fraction] 31.3 % Low 34.0-46.4 [facility] Comment on above: Performed By: #### C BCNO ####[place] [address] Hemoglobin [Mass/volume] in BloodOrdered By: Frank Freemanomar on 08-11-2023 Hemoglobin (Bld) [Mass/Vol] 10.6 g/dL Low 11.8-15.4 [facility] Comment on above: Performed By: #### C BCNO ####[address] Hemogram CBC Without Diffon 08-11-2023 Mean Corpuscular HGB Conc 33.9 g/dL Normal 32.0-35.0 [facility] Comment on above: Performed By: #### C BCNO ####[address] WBC (Bld) [#/Vol] 7.9 10*3/uL Normal 3.8-11.6 [facility] Comment on above: Performed By: #### C BCNO ####[address] Leukocytes [#/volume] correc hugh for nucleated erythrocytes in Blood by Automated counOrdered By: Frank Freemanomar on 08-11-2023 WBC corrected for nucl RBC Auto (Bld) [#/Vol] 7.9 10*3/uL 3.8-11.6 [facility] MCH [Entitic mass] by Automa hugh countOrdered By: Frank Freemanomar on 08-11-2023 MCH (RBC) [Entitic mass] 29.9 pg Normal 24.7-34.3 [facility] Comment on above: Performed By: #### C BCNO ####[address] MCHC Auto (RBC) [Mass/Vol]Or dered By: Obdarryldagood Freemanomar on 08-11-2023 MCHC (RBC) [Mass/Vol] 33.9 g/dL 32.0-35.0 [facility] MCV [Entitic volume] by Auto mated countOrdered By: Shaunadagood Freemanomar on 08-11-2023 MCV (RBC) [Entitic vol] 88.2 fL Normal 80-100 [facility] Comment on above: Performed By: #### C BCNO ####[address] [address] [facility] No Panel InformationOrdered By: Frank Hudson on 08-11-2023 Bedside Glucose Comment Glu2: cleaned meter [facility] No Panel InformationOrdered By: Keena Kern on 08-11-2023 Estimated GFR (CKD-EPI) 53.472 mL/Min [facility] Creatinine Clearance (Chem 46.83 [facility] Phosphate [Mass/volume] in S cait or PlasmaOrdered By: Keena Kern on 08-11-2023 Phosphate [Mass/Vol] 2.4 mg/dL Low 2.5-4.5 [facility] Comment on above: Performed By: #### R ENAL ####[place] [id number] [facility] Platelet mean volume [Entiti c volume] in Blood by Automated countOrdered By: Frank Hudson on 08-11-2023 Platelet mean volume (Bld) [Entitic vol] 8.9 fL Normal 6.3-10.7 [facility] Comment on above: Result Comment: PERF ORMED BY:[address] [place], [place] [phone] MEDICAL DIRECTORARIE ROJO M.D. Performed By: #### C BCNO ####[place] [id number] [facility] Platelets [#/volume] in Bloo d by Automated countOrdered By: Frank Hudson on 08-11-2023 Platelets (Bld) [#/Vol] 168 10*3/uL Normal 150-450 [facility] Comment on above: Performed By: #### C BCNO ####[place] [id number] [facility] Potassium [Moles/volume] in Serum or PlasmaOrdered By: Keena Kern on 08-11-2023 Potassium [Moles/Vol] 3.7 mmol/L Normal 3.5-5.1 [facility] Comment on above: Performed By: #### R ENAL ####[address] [address] [facility] Renal Function Panelon 08-10 Albumin [Mass/Vol] 3.5 g/dL Normal 3.5-5.7 [facility] Comment on above: Performed By: #### R ENAL ####[place] [id number] [facility] Creatinine Clr Calc Pharmacy 46.83 Normal [facility] Comment on above: Result Comment: PERF ORMED BY:[address] [place], [place] [id number] MEDICAL DIRECTORARIE ROJO M.D. Performed By: #### R ENAL ####[address] [address] [facility] GFR/1.73 sq M.predicted MDRD (S/P/Bld) [Vol rate/Area] 53.472 mL/min/{1.73_m2} Normal [facility] Comment on above: Performed By: #### R ENAL ####[place] [id number] [facility] Serum or plasma anion gap de terminationOrdered By: Keena Kern on 08-11-2023 Anion gap [Moles/Vol] 9.6 mmol/L Normal 6.0-15.0 [facility] Comment on above: Performed By: #### R ENAL ####[address] [address] [facility] Sodium [Moles/volume] in Ser um or PlasmaOrdered By: Keena Kern on 08-11-2023 Sodium [Moles/Vol] 137 mmol/L Normal 136-145 [facility] Comment on above: Performed By: #### R ENAL ####[address] [address] [facility] Urea nitrogen [Mass/volume] in Serum or PlasmaOrdered By: Keena Kern on 08-11-2023 Urea nitrogen [Mass/Vol] 24 mg/dL Normal 7-25 [facility] Comment on above: Performed By: #### R ENAL ####[place] [phone] [facility] Alanine aminotransferase [En zymatic activity/volume] in Serum or PlasmaOrdered By: Luke Mcguire on 08-10-2023 ALT [Catalytic activity/Vol] 54 U/L High 7-52 [facility] Comment on above: Performed By: #### M G, RENAL, CMP ####[place] [phone] [facility] Alkaline phosphatase [Enzyma tic activity/volume] in Serum or PlasmaOrdered By: Luke Mcguire on 08-10-2023 ALP [Catalytic activity/Vol] 99 U/L Normal 34-104 [facility] Comment on above: Performed By: #### M G, RENAL, CMP ####[place] [phone] [facility] Aspartate aminotransferase [ Enzymatic activity/volume] in Serum or PlasmaOrdered By: Luke Mcguire on 08-10-2023 AST [Catalytic activity/Vol] 33 U/L Normal 13-39 [facility] Comment on above: Performed By: #### M G, RENAL, CMP ####[place] [phone] [facility] Automated basophil %Ordered By: Luke Mcguire on 08-10-2023 Basophils/100 WBC (Bld) 0.5 % Normal . [facility] Comment on above: Performed By: #### C BC ####[place] [phone] [facility] Automated basophil countOrde red By: Luke Mcguire on 08-10-2023 Basophils (Bld) [#/Vol] 0.0 10*3/uL Normal 0.0-0.2 [facility] Comment on above: Result Comment: PERF ORMED BY:[address] [place], [place] [phone] MEDICAL DIRECTORARIE ROJO M.D. Performed By: #### C BC ####[address] Automated blood monocyte cou ntOrdered By: Luke Mcguire on 08-10-2023 Monocytes (Bld) [#/Vol] 0.5 10*3/uL Normal 0.0-0.8 [facility] Comment on above: Performed By: #### C BC ####[address] Automated eosinophil %Ordere d By: Luke Mcguire on 08-10-2023 Eosinophils/100 WBC (Bld) 1.4 % Normal . [facility] Comment on above: Performed By: #### C BC ####[address] Automated eosinophil countOr dered By: Luke Mcguire on 08-10-2023 Eosinophils (Bld) [#/Vol] 0.1 10*3/uL Normal 0.0-0.45 [facility] Comment on above: Performed By: #### C BC ####[address] Automated monocyte %Ordered By: Luke Mcguire on 08-10-2023 Monocytes/100 WBC (Bld) 7.1 % Normal . [facility] Comment on above: Performed By: #### C BC ####[address] Automated neutrophil %Ordere d By: Luke Mcugire on 08-10-2023 Neutrophils/100 WBC (Bld) 67.7 % Normal . [facility] Comment on above: Performed By: #### C BC ####[address] Bilirubin.total [Mass/volume ] in Serum or PlasmaOrdered By: Luke Mcguire on 08-10-2023 Bilirubin [Mass/Vol] 0.5 mg/dL Normal 0.3-1.0 [facility] Comment on above: Performed By: #### M G, RENAL, CMP ####[address] chest wo conon 08-10-2023 CT chest wo con Normal [facility] Complete Blood Count Auto Di ffon 08-10-2023 Erythrocyte distribution width (RBC) [Ratio] 13.4 % Normal 11.9-15.3 [facility] Comment on above: Performed By: #### C BC ####[place] [phone] [facility] Hematocrit (Bld) [Volume fraction] 33.0 % Low 34.0-46.4 [facility] Comment on above: Performed By: #### C BC ####[place] [phone] [facility] Hemoglobin (Bld) [Mass/Vol] 10.8 g/dL Low 11.8-15.4 [facility] Comment on above: Performed By: #### C BC ####[place] [phone] [facility] MCH (RBC) [Entitic mass] 29.2 pg Normal 24.7-34.3 [facility] Comment on above: Performed By: #### C BC ####[place] [phone] [facility] MCV (RBC) [Entitic vol] 89.2 fL Normal 80-100 [facility] Comment on above: Performed By: #### C BC ####[place] [phone] [facility] Mean Corpuscular HGB Conc 32.8 g/dL Normal 32.0-35.0 [facility] Comment on above: Performed By: #### C BC ####[place] [phone] [facility] NRBC% 0.1 /100{WBC} Normal 0-0.5 [facility] Comment on above: Performed By: #### C BC ####[place] [phone] [facility] Platelet mean volume (Bld) [Entitic vol] 8.6 fL Normal 6.3-10.7 [facility] Comment on above: Performed By: #### C BC ####[address] [address] [facility] Platelets (Bld) [#/Vol] 203 10*3/uL Normal 150-450 [facility] Comment on above: Performed By: #### C BC ####[place] [address] [place] [address] [facility] RBC (Bld) [#/Vol] 3.70 10*6/uL Normal 3.60-5.00 [facility] Comment on above: Performed By: #### C BC ####[address] [address] [facility] Comprehensive Metabolic Pane lelia 08-10-2023 Albumin [Mass/Vol] 3.7 g/dL Normal 3.5-5.7 [facility] Comment on above: Performed By: #### M G, RENAL, CMP ####[place] [phone] [facility] Anion gap [Moles/Vol] 10.4 mmol/L Normal 6.0-15.0 [facility] Comment on above: Performed By: #### M G, RENAL, CMP ####[place] [phone] [facility] Calcium [Mass/Vol] 10.1 mg/dL Normal 8.6-10.3 [facility] Comment on above: Performed By: #### M G, RENAL, CMP ####[place] [phone] [facility] Chloride [Moles/Vol] 104 mmol/L Normal 98-107 [facility] Comment on above: Performed By: #### M G, RENAL, CMP ####[place] [phone] [facility] CO2 [Moles/Vol] 27.1 mmol/L Normal 21.0-31.0 [facility] Comment on above: Performed By: #### M G, RENAL, CMP ####[place] [phone] [facility] Creatinine [Mass/Vol] 1.06 mg/dL Normal 0.60-1.20 [facility] Comment on above: Performed By: #### M G, RENAL, CMP ####[place] [address] [place] [address] [facility] Creatinine Clr Calc Pharmacy 48.94 Normal [facility] Comment on above: Performed By: #### M G, RENAL, CMP ####[place] [address] [place] [address] [place] GFR/1.73 sq M.predicted MDRD (S/P/Bld) [Vol rate/Area] 56.514 mL/min/{1.73_m2} Normal [facility] Comment on above: Performed By: #### M Fabiana, RENAL, CMP ####[place] [address] [place] [address] [facility] Glucose [Mass/Vol] 80 mg/dL Normal 70-100 [facility] Comment on above: Result Comment: [place] Glucose Reference Range is dependent on time and content of last meal. Glucose of more than 200 mg/dL in a nonstressed, ambulatory subject supports the diagnosis of Diabetes Mellitus. ADA recommended reference range Performed By: #### M G, RENAL, CMP ####[address] [address] [facility] Potassium [Moles/Vol] 4.5 mmol/L Normal 3.5-5.1 [facility] Comment on above: Performed By: #### M G, RENAL, CMP ####[address] [address] [facility] Sodium [Moles/Vol] 137 mmol/L Normal 136-145 [facility] Comment on above: Performed By: #### M G, RENAL, CMP ####[place] [address] [place] [address] [facility] Urea nitrogen [Mass/Vol] 26 mg/dL High 7-25 [facility] Comment on above: Performed By: #### M G, RENAL, CMP ####[place] [address] [place] [address] [facility] Glucose Poct Glucometerson 0 08-10-2023 Glucose [Mass/Vol] 95 mg/dL Normal [facility] Comment on above: Result Comment: [place] om Glucose Reference Range is dependent on time and content of last meal. Glucose of more than 200 mg/dL in a nonstressed, ambulatory subject supports the diagnosis of Diabetes Mellitus.PERFORMED BY:[place] [address] [place], [place] [phone] MEDICAL DIRECTORARIE ROJO M.D. Performed By: #### G LULS ####Point of Care testing, Commemt1 Glu2: Cleaned Meter Normal [facility] Comment on above: Result Comment: PERF ORMED BY:[address] [place], [place] [id number] MEDICAL DIRECTORARIE ROJO M.D. Performed By: #### G LULS ####Point of Care testing, Glucose [Mass/Vol] 161 mg/dL Normal [facility] Comment on above: Result Comment: [place] om Glucose Reference Range is dependent on time and content of last meal. Glucose of more than 200 mg/dL in a nonstressed, ambulatory subject supports the diagnosis of Diabetes Mellitus. Performed By: #### G LULS ####Point of Care testing, Commemt1 Glu2: Cleaned Meter Normal [facility] Comment on above: Result Comment: PERF ORMED BY:[place] [address] [place], [place] [phone] MEDICAL DIRECTORARIE ROJO M.D. Performed By: #### G LULS ####Point of Care testing, Glucose [Mass/Vol] 116 mg/dL Normal [facility] Comment on above: Result Comment: [place] om Glucose Reference Range is dependent on time and content of last meal. Glucose of more than 200 mg/dL in a nonstressed, ambulatory subject supports the diagnosis of Diabetes Mellitus. Performed By: #### G LULS ####Point of Care testing, Leukocytes [#/volume] in Blo od by Automated countOrdered By: Luke Mcguire on 08-10-2023 WBC (Bld) [#/Vol] 7.6 10*3/uL Normal 3.8-11.6 [facility] Comment on above: Performed By: #### C BC ####[address] [address] [facility] Lymphocytes [#/volume] in Bl ood by Automated countOrdered By: Luke Mcguire on 08-10-2023 Lymphocytes (Bld) [#/Vol] 1.8 10*3/uL Normal 1.00-4.8 [facility] Comment on above: Performed By: #### C BC ####[place] [phone] [facility] Lymphocytes/100 leukocytes i n Blood by Automated countOrdered By: Luke Mcguire on 08-10-2023 Lymphocytes/100 WBC (Bld) 23.3 % Normal . [facility] Comment on above: Performed By: #### C BC ####[place] [phone] [facility] Magnesium [Mass/volume] in S cait or PlasmaOrdered By: Luke Mcguire on 08-10-2023 Magnesium [Mass/Vol] 1.7 mg/dL Low 1.9-2.7 [facility] Comment on above: Result Comment: PERF ORMED BY:[address] [place], [place] [id number] MEDICAL DIRECTORARIE ROJO M.D. Performed By: #### M G, RENAL, CMP ####[place] [phone] [facility] Neutrophils [#/volume] in Bl ood by Automated countOrdered By: Luke Mcguire on 08-10-2023 Neutrophils (Bld) [#/Vol] 5.2 10*3/uL Normal 1.8-7.7 [facility] Comment on above: Performed By: #### C BC ####[place] [phone] [facility] Nucleated erythrocytes [Pres ence] in Blood by Automated countOrdered By: Luke Mcguire on 08-10-2023 Nucleated RBC Auto Ql (Bld) 0.1 /100{WBC} 0-0.5 [facility] Protein [Mass/volume] in Ser um or PlasmaOrdered By: Luke Mcguire on 08-10-2023 Protein [Mass/Vol] 6.3 g/dL Low 6.4-8.9 [facility] Comment on above: Performed By: #### M Fabiana, RENAL, CMP ####[address] Renal Function Panelon 08-09 Phosphate [Mass/Vol] 3.0 mg/dL Normal 2.5-4.5 [facility] Comment on above: Performed By: #### M Fabiana, RENAL, CMP ####[address] Serum globulin measurement b y calculation (mass/volume)Ordered By: Luke Mcguire on 08-10-2023 Globulin (S) [Mass/Vol] 2.6 g/dL Normal [facility] Comment on above: Performed By: #### M Fabiana, RENAL, CMP ####[address] Serum or plasma albumin/glob ulin mass ratioOrdered By: Luke Mcguire on 08-10-2023 Albumin/Globulin [Mass ratio] 1.4 {ratio} Normal [facility] Comment on above: Performed By: #### M Fabiana, RENAL, CMP ####[address] Complete Blood Count Auto Di ffon 08-09-2023 Basophils (Bld) [#/Vol] 0.0 10*3/uL Normal 0.0-0.2 [facility] Comment on above: Result Comment: PERF ORMED BY:[address] [place], [place] [phone] MEDICAL DIRECTORARIE ROJO M.D. Performed By: #### C BC ####[address] Basophils/100 WBC (Bld) 0.3 % Normal . [facility] Comment on above: Performed By: #### C BC ####[address] Eosinophils (Bld) [#/Vol] 0.1 10*3/uL Normal 0.0-0.45 [facility] Comment on above: Performed By: #### C BC ####[address] Eosinophils/100 WBC (Bld) 0.7 % Normal . [facility] Comment on above: Performed By: #### C BC ####[address] Erythrocyte distribution width (RBC) [Ratio] 13.2 % Normal 11.9-15.3 [facility] Comment on above: Performed By: #### C BC ####[address] Hematocrit (Bld) [Volume fraction] 31.1 % Low 34.0-46.4 [facility] Comment on above: Performed By: #### C BC ####[address] Hemoglobin (Bld) [Mass/Vol] 10.4 g/dL Low 11.8-15.4 [facility] Comment on above: Performed By: #### C BC ####[address] Lymphocytes (Bld) [#/Vol] 1.5 10*3/uL Normal 1.00-4.8 [facility] Comment on above: Performed By: #### C BC ####[address] Lymphocytes/100 WBC (Bld) 17.7 % Normal . [facility] Comment on above: Performed By: #### C BC ####[address] MCH (RBC) [Entitic mass] 29.7 pg Normal 24.7-34.3 [facility] Comment on above: Performed By: #### C BC ####[address] MCV (RBC) [Entitic vol] 88.8 fL Normal 80-100 [facility] Comment on above: Performed By: #### C BC ####[address] Mean Corpuscular HGB Conc 33.5 g/dL Normal 32.0-35.0 [facility] Comment on above: Performed By: #### C BC ####[address] Monocytes (Bld) [#/Vol] 0.5 10*3/uL Normal 0.0-0.8 [facility] Comment on above: Performed By: #### C BC ####[address] Monocytes/100 WBC (Bld) 6.3 % Normal . [facility] Comment on above: Performed By: #### C BC ####[address] Neutrophils (Bld) [#/Vol] 6.2 10*3/uL Normal 1.8-7.7 [facility] Comment on above: Performed By: #### C BC ####[place] [phone] [facility] Neutrophils/100 WBC (Bld) 75.0 % Normal . [facility] Comment on above: Performed By: #### C BC ####[address] NRBC% 0.0 /100{WBC} Normal 0-0.5 [facility] Comment on above: Performed By: #### C BC ####[place] [phone] [facility] Platelet mean volume (Bld) [Entitic vol] 8.7 fL Normal 6.3-10.7 [facility] Comment on above: Performed By: #### C BC ####[place] [phone] [facility] Platelets (Bld) [#/Vol] 222 10*3/uL Normal 150-450 [facility] Comment on above: Performed By: #### C BC ####[address] RBC (Bld) [#/Vol] 3.51 10*6/uL Low 3.60-5.00 [facility] Comment on above: Performed By: #### C BC ####[place] [phone] [facility] WBC (Bld) [#/Vol] 8.2 10*3/uL Normal 3.8-11.6 [facility] Comment on above: Performed By: #### C BC ####[address] Comprehensive Metabolic Pane lelia 08-09-2023 Albumin [Mass/Vol] 3.6 g/dL Normal 3.5-5.7 [facility] Comment on above: Performed By: #### R ENAL, CMP, MG ####[address] Albumin/Globulin [Mass ratio] 1.6 {ratio} Normal [facility] Comment on above: Performed By: #### R ENAL, CMP, MG ####[address] ALP [Catalytic activity/Vol] 100 U/L Normal 34-104 [facility] Comment on above: Performed By: #### R ENAL, CMP, MG ####[address] ALT [Catalytic activity/Vol] 46 U/L Normal 7-52 [facility] Comment on above: Performed By: #### R ENAL, CMP, MG ####[address] Anion gap [Moles/Vol] 11.3 mmol/L Normal 6.0-15.0 [facility] Comment on above: Performed By: #### R ENAL, CMP, MG ####[address] AST [Catalytic activity/Vol] 25 U/L Normal 13-39 [facility] Comment on above: Performed By: #### R ENAL, CMP, MG ####[address] Bilirubin [Mass/Vol] 0.4 mg/dL Normal 0.3-1.0 [facility] Comment on above: Performed By: #### R ENAL, CMP, MG ####[address] Calcium [Mass/Vol] 11.0 mg/dL High 8.6-10.3 [facility] Comment on above: Performed By: #### R ENAL CMP, MG ####[address] Chloride [Moles/Vol] 102 mmol/L Normal 98-107 [facility] Comment on above: Performed By: #### R ENAL, CMP, MG ####[address] CO2 [Moles/Vol] 28.9 mmol/L Normal 21.0-31.0 [facility] Comment on above: Performed By: #### R ENAL CMP, MG ####[address] Creatinine [Mass/Vol] 1.09 mg/dL Normal 0.60-1.20 [facility] Comment on above: Performed By: #### R ENAL, CMP, MG ####[address] Creatinine Clr Calc Pharmacy 47.63 Normal [facility] Comment on above: Performed By: #### R ENAL, CMP, MG ####[address] GFR/1.73 sq M.predicted MDRD (S/P/Bld) [Vol rate/Area] 54.652 mL/min/{1.73_m2} Normal [facility] Comment on above: Performed By: #### R ENAL, CMP, MG ####[address] [place] [address] [place] Globulin (S) [Mass/Vol] 2.3 g/dL Normal [facility] Comment on above: Performed By: #### Jose SERRANO CMP, MG ####[address] Glucose [Mass/Vol] 83 mg/dL Normal 70-100 [facility] Comment on above: Result Comment: [place] om Glucose Reference Range is dependent on time and content of last meal. Glucose of more than 200 mg/dL in a nonstressed, ambulatory subject supports the diagnosis of Diabetes Mellitus. ADA recommended reference range Performed By: #### R ALLIE SERRANO, MG ####[address] Potassium [Moles/Vol] 4.2 mmol/L Normal 3.5-5.1 [facility] Comment on above: Performed By: #### Jose SERRANO CMP, MG ####[address] Protein [Mass/Vol] 5.9 g/dL Low 6.4-8.9 [facility] Comment on above: Performed By: #### Jose SERRANO CMP, MG ####[place] [phone] [facility] Sodium [Moles/Vol] 138 mmol/L Normal 136-145 [facility] Comment on above: Performed By: #### Jose SERRANO CMP, MG ####[place] [phone] [facility] Urea nitrogen [Mass/Vol] 35 mg/dL High 7-25 [facility] Comment on above: Performed By: #### R ALLIE SERRANO, MG ####[place] [phone] [facility] Glucose Poct Glucometerson 0 08-09-2023 Glucose [Mass/Vol] 114 mg/dL Normal [facility] Comment on above: Result Comment: [place] om Glucose Reference Range is dependent on time and content of last meal. Glucose of more than 200 mg/dL in a nonstressed, ambulatory subject supports the diagnosis of Diabetes Mellitus.PERFORMED BY:[address] [address] [address] [place], [place] [phone] MEDICAL DIRECTORARIE ROJO M.D. Performed By: #### G LULS ####Point of Care testing, Glucose [Mass/Vol] 129 mg/dL Normal [facility] Comment on above: Result Comment: [facility] Glucose Reference Range is dependent on time and content of last meal. Glucose of more than 200 mg/dL in a nonstressed, ambulatory subject supports the diagnosis of Diabetes Mellitus.PERFORMED BY:[address] HERNÁNDEZWH[place], [place] [phone] MEDICAL DIRECTORARIE ROJO M.D. Performed By: #### G LULS ####Point of Care testing, Glucose [Mass/Vol] 92 mg/dL Normal [facility] Comment on above: Result Comment: [facility] Glucose Reference Range is dependent on time and content of last meal. Glucose of more than 200 mg/dL in a nonstressed, ambulatory subject supports the diagnosis of Diabetes Mellitus.PERFORMED BY:[address] [place], [place] [phone] MEDICAL BIANCA ROJO M.D. Performed By: #### G LULS ####Point of Care testing, Glucose [Mass/Vol] 82 mg/dL Normal [facility] Comment on above: Result Comment: [facility] Glucose Reference Range is dependent on time and content of last meal. Glucose of more than 200 mg/dL in a nonstressed, ambulatory subject supports the diagnosis of Diabetes Mellitus.PERFORMED BY:[address] [place], [place] [phone] MEDICAL BIANCA ROJO M.D. Performed By: #### G LULS ####Point of Care testing, Magnesiumon 08-09-2023 Magnesium [Mass/Vol] 2.0 mg/dL Normal 1.9-2.7 [facility] Comment on above: Result Comment: PERF ORMED BY:[address], [place] [phone] MEDICAL DIRECTORARIE ROJO M.D. Performed By: #### R ALLIE SERRANO, MG ####[place] [phone] [facility] Renal Function Panelon 08-08 Phosphate [Mass/Vol] 4.1 mg/dL Normal 2.5-4.5 [facility] Comment on above: Performed By: #### R ALLIE SERRANO, MG ####[place] [phone] [facility] Complete Blood Count Auto Di ffon 08-08-2023 Basophils (Bld) [#/Vol] 0.0 10*3/uL Normal 0.0-0.2 [facility] Comment on above: Result Comment: PERF ORMED BY:[address] [place], [place] [phone] MEDICAL DIRECTORARIE ROJO M.D. Performed By: #### C BC ####[address] Basophils/100 WBC (Bld) 0.3 % Normal . [facility] Comment on above: Performed By: #### C BC ####[address] [address] Eosinophils (Bld) [#/Vol] 0.0 10*3/uL Normal 0.0-0.45 [facility] Comment on above: Performed By: #### C BC ####[place] [id number] [facility] Eosinophils/100 WBC (Bld) 0.4 % Normal . [facility] Comment on above: Performed By: #### C BC ####[address] Erythrocyte distribution width (RBC) [Ratio] 13.3 % Normal 11.9-15.3 [facility] Comment on above: Performed By: #### C BC ####[place] [id number] [place] Hematocrit (Bld) [Volume fraction] 30.9 % Low 34.0-46.4 [facility] Comment on above: Performed By: #### C BC ####[address] Hemoglobin (Bld) [Mass/Vol] 10.4 g/dL Low 11.8-15.4 [facility] Comment on above: Performed By: #### C BC ####[address] Lymphocytes (Bld) [#/Vol] 1.0 10*3/uL Normal 1.00-4.8 [facility] Comment on above: Performed By: #### C BC ####[address] Lymphocytes/100 WBC (Bld) 13.7 % Normal . [facility] Comment on above: Performed By: #### C BC ####[address] MCH (RBC) [Entitic mass] 30.0 pg Normal 24.7-34.3 [facility] Comment on above: Performed By: #### C BC ####[address] MCV (RBC) [Entitic vol] 88.5 fL Normal 80-100 [facility] Comment on above: Performed By: #### C BC ####[address] Mean Corpuscular HGB Conc 33.9 g/dL Normal 32.0-35.0 [facility] Comment on above: Performed By: #### C BC ####[address] Monocytes (Bld) [#/Vol] 0.4 10*3/uL Normal 0.0-0.8 [facility] Comment on above: Performed By: #### C BC ####[address] Monocytes/100 WBC (Bld) 5.3 % Normal . [facility] Comment on above: Performed By: #### C BC ####[address] [address] [facility] Neutrophils (Bld) [#/Vol] 6.0 10*3/uL Normal 1.8-7.7 [facility] Comment on above: Performed By: #### C BC ####[address] [address] [facility] Neutrophils/100 WBC (Bld) 80.3 % Normal . [facility] Comment on above: Performed By: #### C BC ####[address] [address] [facility] NRBC% 0.0 /100{WBC} Normal 0-0.5 [facility] Comment on above: Performed By: #### C BC ####[address] [address] [facility] Platelet mean volume (Bld) [Entitic vol] 8.2 fL Normal 6.3-10.7 [facility] Comment on above: Performed By: #### C BC ####[address] [address] [facility] Platelets (Bld) [#/Vol] 238 10*3/uL Normal 150-450 [facility] Comment on above: Performed By: #### C BC ####[address] [address] [facility] RBC (Bld) [#/Vol] 3.49 10*6/uL Low 3.60-5.00 [facility] Comment on above: Performed By: #### C BC ####[address] [address] [facility] WBC (Bld) [#/Vol] 7.4 10*3/uL Normal 3.8-11.6 [facility] Comment on above: Performed By: #### C BC ####[address] [address] [facility] Comprehensive Metabolic Pane lelia 08-08-2023 Albumin [Mass/Vol] 3.5 g/dL Normal 3.5-5.7 [facility] Comment on above: Performed By: #### Maliha Jung RENAL, CMP ####[address] Albumin/Globulin [Mass ratio] 1.5 {ratio} Normal [facility] Comment on above: Performed By: #### M Fabiana, RENAL, CMP ####[place] [phone] [facility] ALP [Catalytic activity/Vol] 104 U/L Normal 34-104 [facility] Comment on above: Performed By: #### Maliha Jung RENAL, CMP ####[address] ALT [Catalytic activity/Vol] 50 U/L Normal 7-52 [facility] Comment on above: Performed By: #### Maliha Jung RENAL, CMP ####[address] Anion gap [Moles/Vol] 8.4 mmol/L Normal 6.0-15.0 [facility] Comment on above: Performed By: #### Maliha Jung RENAL, CMP ####[address] AST [Catalytic activity/Vol] 25 U/L Normal 13-39 [facility] Comment on above: Performed By: #### Maliha Jung, RENAL, CMP ####[place] [phone] [facility] Bilirubin [Mass/Vol] 0.4 mg/dL Normal 0.3-1.0 [facility] Comment on above: Performed By: #### Maliha Jung RENAL, CMP ####[place] [phone] [facility] Calcium [Mass/Vol] 11.7 mg/dL High 8.6-10.3 [facility] Comment on above: Performed By: #### Maliha Jung, RENAL, CMP ####[place] [phone] [facility] Chloride [Moles/Vol] 99 mmol/L Normal 98-107 [facility] Comment on above: Performed By: #### M Fabiana, RENAL, CMP ####[address] CO2 [Moles/Vol] 31.9 mmol/L High 21.0-31.0 [facility] Comment on above: Performed By: #### M Fabiana, RENAL, CMP ####[address] Creatinine [Mass/Vol] 1.53 mg/dL High 0.60-1.20 [facility] Comment on above: Performed By: #### M Fabiana RENAL, CMP ####[address] Creatinine Clr Calc Pharmacy 35.12 Normal [facility] Comment on above: Performed By: #### M Fabiana RENAL, CMP ####[address] GFR/1.73 sq M.predicted MDRD (S/P/Bld) [Vol rate/Area] 36.382 mL/min/{1.73_m2} Normal [facility] Comment on above: Performed By: #### M Fabiana RENAL, CMP ####[address] Globulin (S) [Mass/Vol] 2.4 g/dL Normal [facility] Comment on above: Performed By: #### M Fabiana, RENAL, CMP ####[address] Glucose [Mass/Vol] 89 mg/dL Normal 70-100 [facility] Comment on above: Result Comment: [place] Glucose Reference Range is dependent on time and content of last meal. Glucose of more than 200 mg/dL in a nonstressed, ambulatory subject supports the diagnosis of Diabetes Mellitus. ADA recommended reference range Performed By: #### M G, RENAL, CMP ####[address] Potassium [Moles/Vol] 4.3 mmol/L Normal 3.5-5.1 [facility] Comment on above: Performed By: #### M G, RENAL, CMP ####[place] [address] [place] [address] [facility] Protein [Mass/Vol] 5.9 g/dL Low 6.4-8.9 [facility] Comment on above: Performed By: #### M G, RENAL, CMP ####[place] [address] [place] [address] [facility] Sodium [Moles/Vol] 135 mmol/L Low 136-145 [facility] Comment on above: Performed By: #### M G, RENAL, CMP ####[place] [phone] [facility] Urea nitrogen [Mass/Vol] 43 mg/dL High 7-25 [facility] Comment on above: Performed By: #### M Fabiana, RENAL, CMP ####[address] [address] [facility] Glucose Poct Glucometerson 0 08-08-2023 Glucose [Mass/Vol] 138 mg/dL Normal [facility] Comment on above: Result Comment: [place] om Glucose Reference Range is dependent on time and content of last meal. Glucose of more than 200 mg/dL in a nonstressed, ambulatory subject supports the diagnosis of Diabetes Mellitus.PERFORMED BY:[place] [address] [place], [place] [phone] MEDICAL DIRECTORARIE ROJO M.D. Performed By: #### G LULS ####Point of Care testing, Commemt1 Glu2: Cleaned Meter Normal [facility] Comment on above: Result Comment: PERF ORMED BY:[place] [address] [place], [place] [phone] MEDICAL DIRECTORARIE ROJO M.D. Performed By: #### G LULS ####Point of Care testing, Glucose [Mass/Vol] 129 mg/dL Normal [facility] Comment on above: Result Comment: [place] om Glucose Reference Range is dependent on time and content of last meal. Glucose of more than 200 mg/dL in a nonstressed, ambulatory subject supports the diagnosis of Diabetes Mellitus. Performed By: #### G LULS ####Point of Care testing, Commemt1 Glu2: Cleaned Meter Normal [facility] Comment on above: Result Comment: PERF ORMED BY:[place] [address] [address] [place], [place] [phone] MEDICAL DIRECTORARIE ROJO M.D. Performed By: #### G LULS ####Point of Care testing, Glucose [Mass/Vol] 111 mg/dL Normal [facility] Comment on above: Result Comment: [place] om Glucose Reference Range is dependent on time and content of last meal. Glucose of more than 200 mg/dL in a nonstressed, ambulatory subject supports the diagnosis of Diabetes Mellitus. Performed By: #### G LULS ####Point of Care testing, Glucose [Mass/Vol] 84 mg/dL Normal [facility] Comment on above: Result Comment: [place] om Glucose Reference Range is dependent on time and content of last meal. Glucose of more than 200 mg/dL in a nonstressed, ambulatory subject supports the diagnosis of Diabetes Mellitus.PERFORMED BY:[address] [place]ec[place], [place] [phone] MEDICAL DIRECTORARIE ROJO M.D. Performed By: #### G LULS ####Point of Care testing, Magnesiumon 08-08-2023 Magnesium [Mass/Vol] 1.7 mg/dL Low 1.9-2.7 [facility] Comment on above: Result Comment: PERF ORMED BY:[address] [place], [place] [phone] MEDICAL DIRECTORARIE ROJO M.D. Performed By: #### M G, RENAL, CMP ####[facility] [id number] [place] [address] [facility] Parathyroid Hormone Related Pron 08-08-2023 Parathyroid Hormone Related Pr <2.0 Normal . [facility] Comment on above: Result Comment: This test was developed and its performance characteristics determined by [facility]. It has not been cleared or approved by the Food and Drug Administration. Reference Range: All Ages: <2.0 The PTHrP assay should not be used to exclude cancer or screen tumor patients for humoral hypercalcemia of malignancy (HHM). The results should always be assessed in conjunction with the patient's medical history, clinical examination, and other findings. If test results are clinically discordant, please contact the laboratory. Performed at: [facility] [address] [place], [place] [id number] Criminal Justice Lawyer: Eleuterio Tsai MD, Phone: [phone] BY:[facility] [place], [place] [phone] MEDICAL DIRECTORARIE ROJO M.D. Performed By: #### P THRP ####[facility] , Renal Function Panelon 08-07 Phosphate [Mass/Vol] 4.0 mg/dL Normal 2.5-4.5 [facility] Comment on above: Performed By: #### M G, RENAL, CMP ####[facility] [address] [place] [address] [facility] Serum or plasma parathyroid hormone related peptide (PTHrP) measurement (moles/volumeOrdered By: Keena Kern on 08-08-2023 Parathyrin related protein [Moles/Vol] <2.0 pmol/L . [facility] Comment on above: This test was develo ped and its performance characteristicsdetermined by [facility]. It has not been cleared or approvedby the Food and Drug Administration.Reference Range:All Ages: <2.0The PTHrP assay should not be used to exclude cancer orscreen tumor patients for humoral hypercalcemia ofmalignancy (HHM). The results should always be assessed inconjunction with the patient's medical history, clinicalexamination, and other findings. If test results areclinically discordant, please contact the laboratory.Performed at: [facility] [address] [place], [place] [id number] Director: Eleuterio Tsai MD, Phone: [phone] Aerobic Cultureon 08-07-2023 Aerobic Culture Normal [facility] Comment on above: Performed By: #### A ERC, GS ####[address] [address] [facility] Bilirubin Test strip Ql (U)O rdered By: Frank Hudson on 08-07-2023 Bilirubin Ql (U) Negative Negative [facility] COVID CepheidOrdered By: Alvin Hudson on 08-07-2023 SARS-CoV-2 (COVID-19) Ab IA Ql Negative Negative [facility] Comment on above: This is a duplicate Cepheid Xpert Xpress CoV-2/Flu/RSV Plus RNA by RT-PCR result to be used for statistical tracking purpose only. SARS-CoV-2 (COVID-19) RNA MITCHELL+probe Ql (Unsp spec) Normal [facility] Comment on above: Performed By: #### C OVID19 FLU RSV, CEPHEID NEG, UA ####[place] [phone] [facility] Cepheid COVID PCR Negativeon 08-07-2023 SARS-CoV-2 (COVID-19) RNA MITCHELL+probe Ql (Unsp spec) Negative Normal Negative [facility] Comment on above: Result Comment: This is a duplicate Cepheid Xpert Xpress CoV-2/Flu/RSV Plus RNA by RT-PCR result to be used for statistical tracking purpose only.PERFORMED BY:[address] [place], [place] [phone] MEDICAL BIANCA ROJO M.D. Performed By: #### C OVID19 FLU RSV, CEPHEID NEG, UA ####[place] [phone] [facility] Color of Urine by AutoOrdere d By: Frank Hudson on 08-07-2023 Color (U) Yellow Normal Yellow [facility] Comment on above: Order Comment: Name Collection Type:: Voided Performed By: #### C OVID19 FLU RSV, CEPHEID NEG, UA ####[place] [phone] [facility] Complete Blood Count Auto Di ffon 08-07-2023 Basophils (Bld) [#/Vol] 0.0 10*3/uL Normal 0.0-0.2 [facility] Comment on above: Result Comment: PERF ORMED BY:[address] [place], [place] [phone] MEDICAL DIRECTORARIE ROJO M.D. Performed By: #### C BC, CMP, MG ####[address] Basophils/100 WBC (Bld) 0.5 % Normal . [facility] Comment on above: Performed By: #### C BC, CMP, MG ####[address] Eosinophils (Bld) [#/Vol] 0.0 10*3/uL Normal 0.0-0.45 [facility] Comment on above: Performed By: #### C BC, CMP, MG ####[address] Eosinophils/100 WBC (Bld) 0.5 % Normal . [facility] Comment on above: Performed By: #### C BC, CMP, MG ####[address] Erythrocyte distribution width (RBC) [Ratio] 13.3 % Normal 11.9-15.3 [facility] Comment on above: Performed By: #### C BC, CMP, MG ####[address] Hematocrit (Bld) [Volume fraction] 34.1 % Normal 34.0-46.4 [facility] Comment on above: Performed By: #### C BC, CMP, MG ####[address] Hemoglobin (Bld) [Mass/Vol] 11.3 g/dL Low 11.8-15.4 [facility] Comment on above: Performed By: #### C BC, CMP, MG ####[address] Lymphocytes (Bld) [#/Vol] 0.7 10*3/uL Low 1.00-4.8 [facility] Comment on above: Performed By: #### C BC, CMP, MG ####[address] Lymphocytes/100 WBC (Bld) 7.6 % Normal . [facility] Comment on above: Performed By: #### C BC, CMP, MG ####[address] MCH (RBC) [Entitic mass] 29.3 pg Normal 24.7-34.3 [facility] Comment on above: Performed By: #### C BC, CMP, MG ####[address] MCV (RBC) [Entitic vol] 88.3 fL Normal 80-100 [facility] Comment on above: Performed By: #### C BC, CMP, MG ####[address] Mean Corpuscular HGB Conc 33.2 g/dL Normal 32.0-35.0 [facility] Comment on above: Performed By: #### C BC, CMP, MG ####[address] Monocytes (Bld) [#/Vol] 0.5 10*3/uL Normal 0.0-0.8 [facility] Comment on above: Performed By: #### C BC, CMP, MG ####[address] Monocytes/100 WBC (Bld) 5.4 % Normal . [facility] Comment on above: Performed By: #### C BC, CMP, MG ####[address] Neutrophils (Bld) [#/Vol] 8.4 10*3/uL High 1.8-7.7 [facility] Comment on above: Performed By: #### C BC, CMP, MG ####[place] [address] [place] [id number] [facility] Neutrophils/100 WBC (Bld) 86.0 % Normal . [facility] Comment on above: Performed By: #### C BC, CMP, MG ####[address] [address] [place] [address] [facility] NRBC% 0.0 /100{WBC} Normal 0-0.5 [facility] Comment on above: Performed By: #### C BC, CMP, MG ####[address] [place] [address] [facility] Platelet mean volume (Bld) [Entitic vol] 8.1 fL Normal 6.3-10.7 [facility] Comment on above: Performed By: #### C BC, CMP, MG ####[place] [phone] [facility] Platelets (Bld) [#/Vol] 302 10*3/uL Normal 150-450 [facility] Comment on above: Performed By: #### C BC, CMP, MG ####[place] [phone] [facility] RBC (Bld) [#/Vol] 3.86 10*6/uL Normal 3.60-5.00 [facility] Comment on above: Performed By: #### C BC, CMP, MG ####[address] [address] [facility] WBC (Bld) [#/Vol] 9.8 10*3/uL Normal 3.8-11.6 [facility] Comment on above: Performed By: #### C BC, CMP, MG ####[place] [phone] [facility] Comprehensive Metabolic Pane lelia 08-07-2023 Albumin [Mass/Vol] 3.4 g/dL Low 3.5-5.7 [facility] Comment on above: Performed By: #### C MP, TSH3 wRFLX ####[place] [phone] [facility] Albumin/Globulin [Mass ratio] 1.4 {ratio} Normal [facility] Comment on above: Performed By: #### C DIANNE, TSH3 wRFLX ####[address] ALP [Catalytic activity/Vol] 103 U/L Normal 34-104 [facility] Comment on above: Performed By: #### C DIANNE, TSH3 wRFLX ####[address] ALT [Catalytic activity/Vol] 50 U/L Normal 7-52 [facility] Comment on above: Performed By: #### C DIANNE, TSH3 wRFLX ####[address] Anion gap [Moles/Vol] 8.7 mmol/L Normal 6.0-15.0 [facility] Comment on above: Performed By: #### C DIANNE, TSH3 wRFLX ####[address] AST [Catalytic activity/Vol] 25 U/L Normal 13-39 [facility] Comment on above: Performed By: #### C DIANNE, TSH3 wRFLX ####[address] Bilirubin [Mass/Vol] 0.4 mg/dL Normal 0.3-1.0 [facility] Comment on above: Performed By: #### C DIANNE, TSH3 wRFLX ####[address] Calcium [Mass/Vol] 12.1 mg/dL High 8.6-10.3 [facility] Comment on above: Performed By: #### C DIANNE, TSH3 wRFLX ####[address] Chloride [Moles/Vol] 99 mmol/L Normal 98-107 [facility] Comment on above: Performed By: #### C DIANNE, TSH3 wRFLX ####[address] CO2 [Moles/Vol] 31.2 mmol/L High 21.0-31.0 [facility] Comment on above: Performed By: #### C DIANNE, TSH3 wRFLX ####[place] [phone] [facility] Creatinine [Mass/Vol] 1.59 mg/dL High 0.60-1.20 [facility] Comment on above: Performed By: #### C DIANNE, TSH3 wRFLX ####[place] [phone] [facility] Creatinine Clr Calc Pharmacy 33.79 Normal [facility] Comment on above: Result Comment: PERF ORMED BY:[address] [place], [place] [phone] MEDICAL DIRECTORARIE ROJO M.D. Performed By: #### C DIANNE, TSH3 wRFLX ####[place] [phone] [facility] GFR/1.73 sq M.predicted MDRD (S/P/Bld) [Vol rate/Area] 34.741 mL/min/{1.73_m2} Normal [facility] Comment on above: Performed By: #### C DIANNE TSH3 wRFLX ####[place] [phone] [facility] Globulin (S) [Mass/Vol] 2.5 g/dL Normal [facility] Comment on above: Performed By: #### C DIANNE, TSH3 wRFLX ####[place] [phone] [facility] Glucose [Mass/Vol] 72 mg/dL Normal 70-100 [facility] Comment on above: Result Comment: [place] Glucose Reference Range is dependent on time and content of last meal. Glucose of more than 200 mg/dL in a nonstressed, ambulatory subject supports the diagnosis of Diabetes Mellitus. ADA recommended reference range Performed By: #### C DIANNE, TSH3 wRFLX ####[place] [phone] [facility] Potassium [Moles/Vol] 3.9 mmol/L Normal 3.5-5.1 [facility] Comment on above: Performed By: #### C DIANNE, TSH3 wRFLX ####[address] Protein [Mass/Vol] 5.9 g/dL Low 6.4-8.9 [facility] Comment on above: Performed By: #### C DIANNE, TSH3 wRFLX ####[address] Sodium [Moles/Vol] 135 mmol/L Low 136-145 [facility] Comment on above: Performed By: #### C DIANNE, TSH3 wRFLX ####[address] Urea nitrogen [Mass/Vol] 52 mg/dL High 7-25 [facility] Comment on above: Performed By: #### C DIANNE, TSH3 wRFLX ####[address] Albumin [Mass/Vol] 3.4 g/dL Low 3.5-5.7 [facility] Comment on above: Performed By: #### C BC, CMP, MG ####[address] Albumin/Globulin [Mass ratio] 1.4 {ratio} Normal [facility] Comment on above: Performed By: #### C BC, CMP, MG ####[address] ALP [Catalytic activity/Vol] 109 U/L High 34-104 [facility] Comment on above: Performed By: #### C BC, CMP, MG ####[place] [phone] [facility] ALT [Catalytic activity/Vol] 55 U/L High 7-52 [facility] Comment on above: Performed By: #### C BC, CMP, MG ####[address] Anion gap [Moles/Vol] 10.4 mmol/L Normal 6.0-15.0 [facility] Comment on above: Performed By: #### C BC, CMP, MG ####[address] AST [Catalytic activity/Vol] 26 U/L Normal 13-39 [facility] Comment on above: Performed By: #### C BC, CMP, MG ####[address] Bilirubin [Mass/Vol] 0.4 mg/dL Normal 0.3-1.0 [facility] Comment on above: Performed By: #### C BC, CMP, MG ####[address] Calcium [Mass/Vol] 12.6 mg/dL High 8.6-10.3 [facility] Comment on above: Performed By: #### C BC, CMP, MG ####[address] Chloride [Moles/Vol] 98 mmol/L Normal 98-107 [facility] Comment on above: Performed By: #### C BC, CMP, MG ####[address] CO2 [Moles/Vol] 29.1 mmol/L Normal 21.0-31.0 [facility] Comment on above: Performed By: #### C BC, CMP, MG ####[address] Creatinine [Mass/Vol] 1.74 mg/dL High 0.60-1.20 [facility] Comment on above: Performed By: #### C BC, CMP, MG ####[address] Creatinine Clr Calc Pharmacy 29.61 Normal [facility] Comment on above: Performed By: #### C BC, CMP, MG ####[address] GFR/1.73 sq M.predicted MDRD (S/P/Bld) [Vol rate/Area] 31.179 mL/min/{1.73_m2} Normal [facility] Comment on above: Performed By: #### C BC, CMP, MG ####[address] Globulin (S) [Mass/Vol] 2.5 g/dL Normal [facility] Comment on above: Performed By: #### C BC, CMP, MG ####[address] Glucose [Mass/Vol] 97 mg/dL Normal 70-100 [facility] Comment on above: Result Comment: [facility] Glucose Reference Range is dependent on time and content of last meal. Glucose of more than 200 mg/dL in a nonstressed, ambulatory subject supports the diagnosis of Diabetes Mellitus. ADA recommended reference range Performed By: #### C BC, CMP, MG ####[address] Potassium [Moles/Vol] 4.5 mmol/L Normal 3.5-5.1 [facility] Comment on above: Performed By: #### C BC, CMP, MG ####[address] Protein [Mass/Vol] 5.9 g/dL Low 6.4-8.9 [facility] Comment on above: Performed By: #### C BC, CMP, MG ####[address] Sodium [Moles/Vol] 133 mmol/L Low 136-145 [facility] Comment on above: Performed By: #### C BC, CMP, MG ####[place] [id number] [facility] Urea nitrogen [Mass/Vol] 57 mg/dL High 7-25 [facility] Comment on above: Performed By: #### C BC, CMP, MG ####[address] Creatinine [Mass/volume] in UrineOrdered By: Obaydah Daromar on 08-07-2023 Creatinine (U) [Mass/Vol] 46.00 mg/dL [facility] Comment on above: No reference range e stablished Creatinine, Urine (Random)on 08-07-2023 Creatinine, Urine (Random) 46.00 mg/dL Normal [facility] Comment on above: Result Comment: No r eference range established Performed By: #### U CRERosa, DAREN ####[facility] [id number] [place] [id number] [facility] Glucose Poct Glucometerson 0 08-07-2023 Glucose [Mass/Vol] 153 mg/dL Normal [facility] Comment on above: Result Comment: [facility] Glucose Reference Range is dependent on time and content of last meal. Glucose of more than 200 mg/dL in a nonstressed, ambulatory subject supports the diagnosis of Diabetes Mellitus.PERFORMED BY:[address] [place], [place] [phone] MEDICAL DIRECTORARIE ROJO M.D. Performed By: #### G LULS ####Point of Care testing, Glucose [Mass/Vol] 153 mg/dL Normal [facility] Comment on above: Result Comment: [facility] Glucose Reference Range is dependent on time and content of last meal. Glucose of more than 200 mg/dL in a nonstressed, ambulatory subject supports the diagnosis of Diabetes Mellitus.PERFORMED BY:[address] [place], [place] [phone] MEDICAL BIANCA ROJO M.D. Performed By: #### G LULS ####Point of Care testing, Glucose [Mass/Vol] 105 mg/dL Normal [facility] Comment on above: Result Comment: [facility] Glucose Reference Range is dependent on time and content of last meal. Glucose of more than 200 mg/dL in a nonstressed, ambulatory subject supports the diagnosis of Diabetes Mellitus.PERFORMED BY:[address] [place], [place] [phone] MEDICAL DIRECTORARIE ROJO M.D. Performed By: #### G LULS ####Point of Care testing, Glucose [Mass/Vol] 116 mg/dL Normal [facility] Comment on above: Result Comment: [facility] Glucose Reference Range is dependent on time and content of last meal. Glucose of more than 200 mg/dL in a nonstressed, ambulatory subject supports the diagnosis of Diabetes Mellitus.PERFORMED BY:[place] [address], [place] [phone] MEDICAL DIRECTORARIE ROJO M.D. Performed By: #### G LULS ####Point of Care testing, Gram Stainon 08-07-2023 Microscopic observation Gram stain Nom (Unsp spec) Gram Stain Result 4+ Gram Positive Bacilli 2+ White Blood Cells 1+ Epithelial Cells PERFORMED BY: [facility] [address] [address] PATHOLOGIST IMMIGRATION OFFICER ARIE ROJO M.D. Normal [facility] Comment on above: Performed By: #### A ERC, GS ####[address] [address] [facility] Gram stain for investigation of transfusion reactionOrdered By: Frank Hudson on 08-07-2023 Microscopic observation Gram stain Nom (Unsp spec) Corynebacterium striatum group Abnormal [facility] Ketones Auto test strip (U) [Mass/Vol]Ordered By: Frank Freemanomar on 08-07-2023 Ketones (U) [Mass/Vol] Negative Negative [facility] Magnesiumon 08-07-2023 Magnesium [Mass/Vol] 1.7 mg/dL Low 1.9-2.7 [facility] Comment on above: Result Comment: PERF ORMED BY:[address] [place], [place] [phone] MEDICAL DIRECTORARIE ROJO M.D. Performed By: #### C BC, CMP, MG ####[address] [address] [facility] Nitrite Test strip Ql (U)Ord ered By: Frank Hudson on 08-07-2023 Nitrite Ql (U) Negative Negative [facility] Parathyrin.intact [Mass/volu me] in Serum or PlasmaOrdered By: Obdarryldagood Freemanomar on 08-07-2023 Parathyrin.intact [Mass/Vol] 3.6 pg/mL Low [facility] Parathyroid Hormone Intacton 08-07-2023 Parathyroid Hormone Intact 3.6 pg/mL Low [facility] Comment on above: Result Comment: PERF ORMED BY:[place] [address] [place], [place] [phone] MEDICAL DIRECTORARIE ROJO M.D. Performed By: #### P TH, [id number] ####[address] [address] [facility] Protein Auto test strip (U) [Mass/Vol]Ordered By: Frank Hudson on 08-07-2023 Protein (U) [Mass/Vol] Negative Negative [facility] Sodium [Moles/volume] in Uri neOrdered By: Frank Hudson on 08-07-2023 Sodium (U) [Moles/Vol] 47 mmol/L Normal [facility] Comment on above: No reference range e stablished Result Comment: No r eference range establishedPERFORMED BY:[place] [address] [place] [place], [place] [phone] MEDICAL DIRECTORARIE ROJO M.D. Performed By: #### U CREA, DAERN ####[address] [address] [facility] Specific gravity Auto test s trip (U) [Rel density]Ordered By: darryladventhealth PeteRedOwl Analytics on 08-07-2023 Specific gravity (U) [Rel density] 1.012 1.001-1.03 0 [facility] Thyroid Stim Hormone w/Rflxo n 08-07-2023 Thyroid Stim Hormone w/Rflx 1.97 u[iU]/mL Normal 0.45-5.33 [facility] Comment on above: Result Comment: PERF ORMED BY:[address] [place], [place] [phone] MEDICAL DIRECTORARIE ROJO M.D. Performed By: #### C MP, TSH3 wRFLX ####[address] Thyrotropin [Units/volume] i n Serum or PlasmaOrdered By: Frank Hudson on 08-07-2023 TSH Qn 1.97 m[IU]/L 0.45-5.33 [facility] US renal BIon 08-07-2023 US renal BI Normal [facility] Urinalysison 08-07-2023 Appearance (U) Clear Normal Clear [facility] Comment on above: Order Comment: Name Collection Type:: Voided Performed By: #### C OVID19 FLU RSV, CEPHEID NEG, UA ####[address] Bilirubin,Urine Negative Normal Negative [facility] Comment on above: Order Comment: Name Collection Type:: Voided Performed By: #### C OVID19 FLU RSV, CEPHEID NEG, UA ####[address] Glucose Ql (U) Normal Normal Normal [facility] Comment on above: Order Comment: Name Collection Type:: Voided Performed By: #### C OVID19 FLU RSV, CEPHEID NEG, UA ####[address] Ketones Ql (U) Negative Normal Negative [facility] Comment on above: Order Comment: Name Collection Type:: Voided Performed By: #### C OVID19 FLU RSV, CEPHEID NEG, UA ####[place] [id number] [facility] Leukocyte esterase Test strip Ql (U) Negative Normal Negative [facility] Comment on above: Order Comment: Name Collection Type:: Voided Performed By: #### C OVID19 FLU RSV, CEPHEID NEG, UA ####[place] [id number] [facility] Nitrite,Urine Negative Normal Negative [facility] Comment on above: Order Comment: Name Collection Type:: Voided Performed By: #### C OVID19 FLU RSV, CEPHEID NEG, UA ####[place] [id number] [facility] Occult Blood,Urine Negative Normal Negative [facility] Comment on above: Order Comment: Name Collection Type:: Voided Result Comment: PERF ORMED BY:[address] [place], [place] [phone] MEDICAL DIRECTORARIE ROJO M.D. Performed By: #### C OVID19 FLU RSV, CEPHEID NEG, UA ####[address] Protein,Urine Negative Normal Negative [facility] Comment on above: Order Comment: Name Collection Type:: Voided Performed By: #### C OVID19 FLU RSV, CEPHEID NEG, UA ####[address] Specificy [place],Urine 1.012 Normal 1.001-1.03 0 [facility] Comment on above: Order Comment: Name Collection Type:: Voided Performed By: #### C OVID19 FLU RSV, CEPHEID NEG, UA ####[place] [id number] [facility] Urobilinogen,Urine Normal Normal Normal [facility] Comment on above: Order Comment: Name Collection Type:: Voided Performed By: #### C OVID19 FLU RSV, CEPHEID NEG, UA ####[place] [id number] [facility] Urine clarity by refractomet ry automatedOrdered By: Frank Hudson on 08-07-2023 Clarity Refractometry automated (U) Clear Clear [facility] Urine glucose measurement by automated test strip (mass/volume)Ordered By: Frank Hudson on 08-07-2023 Glucose Auto test strip (U) [Mass/Vol] Normal mg/dL Normal [facility] Urine hemoglobin detection b y automated test stripOrdered By: Frank Handyr on 08-07-2023 Hemoglobin Auto test strip Ql (U) Negative Negative [facility] Urine leukocyte esterase det ection by automated test stripOrdered By: Frank Handyr on 08-07-2023 Leukocyte esterase Auto test strip Ql (U) Negative Negative [facility] Urine pH measurement by auto mated test stripOrdered By: Frank Handyr on 08-07-2023 pH (U) 6.5 [pH] Normal 5.0-9.0 [facility] Comment on above: Order Comment: Name Collection Type:: Voided Performed By: #### C OVID19 FLU RSV, CEPHEID NEG, UA ####[place] [address] [place] [address] [facility] Urobilinogen Auto test strip (U) [Mass/Vol]Ordered By: Frank Handyr on 08-07-2023 Urobilinogen (U) [Mass/Vol] Normal mg/dL Normal [facility] Vitamin D 25 Hydroxy Totalon 08-07-2023 Vitamin D 25 Hydroxy Total 97.1 ng/mL Normal 30-100 [facility] Comment on above: Result Comment: ADRI MIN D STATUS 25([place])VITAMIN D RANGE (ng/mL) Deficient <20 Insufficient 20 to <30 Sufficient 30 to 100 Reference: Frannie MF,Oumar NC, Radha MCGOWAN, et al. Evaluation,treatment, and prevention of vitamin D deficiency; an Endocrine Society clinical practice guideline. JCEM. 2010; 96(7):1911-30.PERFORMED BY:[facility] [place], [place] [phone] MEDICAL DIRECTORARIE ROJO M.D. Performed By: #### P TH, [id number] ####[address] [address] [facility] Vitamin D+Metabolites [Mass/ volume] in Serum or PlasmaOrdered By: Frank Hudson on 08-07-2023 Vitamin D+Metabolites [Mass/Vol] 97.1 ng/mL 30-100 [facility] Comment on above: VITAMIN D STATUS 25( [place])VITAMIN D RANGE (ng/mL) Deficient <20 Insufficient 20 to <30Sufficient 30 to 100Reference: Frannie MF,Oumar NC, Radha MCGOWAN, et al. Evaluation,treatment, and prevention of vitamin D deficiency; an Endocrine Society clinical practice guideline. JCEM. 2010; 96(7):1911-30. XR chest 1V portableon 08-06 XR chest 1V portable Normal [facility] Basic Metabolic Panelon 07-06 Creatinine Clr Calc Pharmacy 53.01 Normal [facility] Comment on above: Performed By: #### C BCJODY, BMP, MG ####[place] [address] [place] [address] [facility] GFR/1.73 sq M.predicted MDRD (S/P/Bld) [Vol rate/Area] mL/min/{1.73_m2} Normal [facility] Comment on above: Performed By: #### C BCJODY, BMP, MG ####[address] [address] [facility] Calcium [Mass/volume] in Ser um or PlasmaOrdered By: Jaylan Child on 07-30-2023 Calcium [Mass/Vol] 9.0 mg/dL Normal 8.6-10.3 [facility] Comment on above: Performed By: #### C BCJODY, BMP, MG ####[address] [address] [facility] Capillary blood glucose dilia urement by glucometer (mass/volume)Ordered By: Jaylan Child on 07-30-2023 Glucose [Mass/Vol] 124 mg/dL Normal [facility] Comment on above: Random Glucose Refer ence Range is dependent on time and content of last meal. Glucose of more than 200 mg/dL in a nonstressed, ambulatory subject supports the diagnosis of Diabetes Mellitus. Result Comment: [facility] Glucose Reference Range is dependent on time and content of last meal. Glucose of more than 200 mg/dL in a nonstressed, ambulatory subject supports the diagnosis of Diabetes Mellitus.PERFORMED BY:[address] [place], [place] [phone] MEDICAL DIRECTORARIE ROJO M.D. Performed By: #### G DOMINIC ####Point of Care testing, Carbon dioxide, total [Moles /volume] in Serum or PlasmaOrdered By: Jaylan Child on 07-30-2023 CO2 [Moles/Vol] 37.0 mmol/L High 21.0-31.0 [facility] Comment on above: Performed By: #### C BCNO, BMP, MG ####[place] [address] [place] [address]70 [facility] Chloride [Moles/volume] in S cait or PlasmaOrdered By: Jaylan Child on 07-30-2023 Chloride [Moles/Vol] 95 mmol/L Low 98-107 [facility] Comment on above: Performed By: #### C BCNO, BMP, MG ####[place] [phone] [facility] Creatinine [Mass/volume] in Serum or PlasmaOrdered By: Jaylan Child on 07-30-2023 Creatinine [Mass/Vol] 0.97 mg/dL Normal 0.60-1.20 [facility] Comment on above: Performed By: #### C BCNO, BMP, MG ####[place] [phone] [facility] Erythrocyte distribution wid th [Ratio] by Automated countOrdered By: Jaylan Child on 07-30-2023 Erythrocyte distribution width (RBC) [Ratio] 13.3 % Normal 11.9-15.3 [facility] Comment on above: Performed By: #### C BCNO, BMP, MG ####[place] [id number] [facility] Erythrocytes [#/volume] in B lood by Automated countOrdered By: Jaylan Child on 07-30-2023 RBC (Bld) [#/Vol] 3.60 10*6/uL Normal 3.60-5.00 [facility] Comment on above: Performed By: #### C BCNO, BMP, MG ####[address] [place] [address] [facility] Glucose Poct Glucometerson 0 07-30-2023 Glucose [Mass/Vol] 110 mg/dL Normal [facility] Comment on above: Result Comment: [facility] Glucose Reference Range is dependent on time and content of last meal. Glucose of more than 200 mg/dL in a nonstressed, ambulatory subject supports the diagnosis of Diabetes Mellitus.PERFORMED BY:[address] [place], [place] [phone] MEDICAL DIRECTORARIE ROJO M.D. Performed By: #### G DOMINIC ####Point of Care testing, Glucose [Mass/volume] in Ser um or PlasmaOrdered By: Jaylan Child on 07-30-2023 Glucose [Mass/Vol] 103 mg/dL High 70-100 [facility] Comment on above: ADA recommended refe rence rangeRandom Glucose Reference Range is dependent on time and content of last meal. Glucose of more than 200 mg/dL in a nonstressed, ambulatory subject supports the diagnosis of Diabetes Mellitus. Result Comment: [facility] Glucose Reference Range is dependent on time and content of last meal. Glucose of more than 200 mg/dL in a nonstressed, ambulatory subject supports the diagnosis of Diabetes Mellitus. ADA recommended reference range Performed By: #### C SARAH PARSON, MG ####[place] [address] [place] [id number] [facility] Hematocrit [Volume Fraction] of Blood by Automated countOrdered By: Jaylan Child on 07-30-2023 Hematocrit (Bld) [Volume fraction] 31.7 % Low 34.0-46.4 [facility] Comment on above: Performed By: #### C SARAH PARSON, MG ####[place] [id number] [facility] Hemoglobin [Mass/volume] in BloodOrdered By: Jaylan Child on 07-30-2023 Hemoglobin (Bld) [Mass/Vol] 10.7 g/dL Low 11.8-15.4 [facility] Comment on above: Performed By: #### C BLANK BMP, MG ####[address] Hemogram CBC Without Diffon 07-30-2023 Mean Corpuscular HGB Conc 33.9 g/dL Normal 32.0-35.0 [facility] Comment on above: Performed By: #### C BLANK, BMP, MG ####[address] WBC (Bld) [#/Vol] 5.3 10*3/uL Normal 3.8-11.6 [facility] Comment on above: Performed By: #### C BLANK, BMP, MG ####[address] Leukocytes [#/volume] correc hugh for nucleated erythrocytes in Blood by Automated counOrdered By: Jaylan Child on 07-30-2023 WBC corrected for nucl RBC Auto (Bld) [#/Vol] 5.3 10*3/uL 3.8-11.6 [facility] MCH [Entitic mass] by Automa hugh countOrdered By: Jaylan Child on 07-30-2023 MCH (RBC) [Entitic mass] 29.8 pg Normal 24.7-34.3 [facility] Comment on above: Performed By: #### C SARAH PARSON, MG ####[address] MCHC Auto (RBC) [Mass/Vol]Or dered By: Jaylan Child on 07-30-2023 MCHC (RBC) [Mass/Vol] 33.9 g/dL 32.0-35.0 [facility] MCV [Entitic volume] by Auto mated countOrdered By: Jaylan Child on 07-30-2023 MCV (RBC) [Entitic vol] 88.1 fL Normal 80-100 [facility] Comment on above: Performed By: #### C BCJODY, BMP, MG ####[address] Magnesium [Mass/volume] in S cait or PlasmaOrdered By: Jaylan Child on 07-30-2023 Magnesium [Mass/Vol] 1.4 mg/dL Low 1.9-2.7 [facility] Comment on above: Result Comment: PERF ORMED BY:[place] [address] [place] [place], [place] [phone] MEDICAL DIRECTORARIE ROJO M.D. Performed By: #### C BCNO, BMP, MG ####[place] [address] [place] [address] [facility] No Panel InformationOrdered By: Jaylan Child on 07-30-2023 Estimated GFR (CKD-EPI) > 60.0 mL/Min [facility] Creatinine Clearance (Chem 53.01 [facility] Platelet mean volume [Entiti c volume] in Blood by Automated countOrdered By: Jaylan Child on 07-30-2023 Platelet mean volume (Bld) [Entitic vol] 8.3 fL Normal 6.3-10.7 [facility] Comment on above: Result Comment: PERF ORMED BY:[place] [address] [place] [place], [place] [phone] MEDICAL DIRECTORARIE ROJO M.D. Performed By: #### C BCNO, BMP, MG ####[place] [phone] [facility] Platelets [#/volume] in Bloo d by Automated countOrdered By: Jaylan Child on 07-30-2023 Platelets (Bld) [#/Vol] 158 10*3/uL Normal 150-450 [facility] Comment on above: Performed By: #### C BCNO, BMP, MG ####[place] [id number] [facility] Potassium [Moles/volume] in Serum or PlasmaOrdered By: Jaylan Child on 07-30-2023 Potassium [Moles/Vol] 3.8 mmol/L Normal 3.5-5.1 [facility] Comment on above: Performed By: #### C BCNO, BMP, MG ####[place] [phone] [facility] Serum or plasma anion gap de terminationOrdered By: Jaylan Child on 07-30-2023 Anion gap [Moles/Vol] 8.8 mmol/L Normal 6.0-15.0 [facility] Comment on above: Performed By: #### C BLANK BMP, MG ####[address] [place] [address] [facility] Sodium [Moles/volume] in Ser um or PlasmaOrdered By: Jaylan Child on 07-30-2023 Sodium [Moles/Vol] 137 mmol/L Normal 136-145 [facility] Comment on above: Performed By: #### C BLANK, SARAH, MG ####[address] [address] [facility] Urea nitrogen [Mass/volume] in Serum or PlasmaOrdered By: Jaylan Child on 07-30-2023 Urea nitrogen [Mass/Vol] 24 mg/dL Normal 7-25 [facility] Comment on above: Performed By: #### C SARAH PARSON, MG ####[address] [address] [facility] BNP ser/plasOrdered By: Ari Aaron on 07-29-2023 Natriuretic peptide B (Bld) [Mass/Vol] 253.0 pg/mL High 5-100 [facility] Comment on above: Result Comment: PERF ORMED BY:[address] [place], [place] [phone] MEDICAL DIRECTORARIE ROJO M.D. Performed By: #### B MILITARY COMMUNICATIONS SPECIALIST ####[address] [address] [facility] Basic Metabolic Panelon 07-06 Anion gap [Moles/Vol] 12.3 mmol/L Normal 6.0-15.0 [facility] Comment on above: Performed By: #### M G BMP ####[address] [address] [facility] Calcium [Mass/Vol] 9.5 mg/dL Normal 8.6-10.3 [facility] Comment on above: Performed By: #### M G, BMP ####[address] [place] [address] [facility] Chloride [Moles/Vol] 97 mmol/L Low 98-107 [facility] Comment on above: Performed By: #### M G, BMP ####[address] [place] [address] [facility] CO2 [Moles/Vol] 32.4 mmol/L High 21.0-31.0 [facility] Comment on above: Performed By: #### M G, BMP ####[address] [address] [place] [address] [facility] Creatinine [Mass/Vol] 1.08 mg/dL Normal 0.60-1.20 [facility] Comment on above: Performed By: #### Maliha G, BMP ####[address] [address] [place] [address] [facility] Creatinine Clr Calc Pharmacy 47.61 Normal [facility] Comment on above: Performed By: #### Maliha G, BMP ####[address] [address] [facility] GFR/1.73 sq M.predicted MDRD (S/P/Bld) [Vol rate/Area] 55.259 mL/min/{1.73_m2} Normal [facility] Comment on above: Performed By: #### Maliha G, BMP ####[address] [address] [facility] Glucose [Mass/Vol] 98 mg/dL Normal 70-100 [facility] Comment on above: Result Comment: [place] Glucose Reference Range is dependent on time and content of last meal. Glucose of more than 200 mg/dL in a nonstressed, ambulatory subject supports the diagnosis of Diabetes Mellitus. ADA recommended reference range Performed By: #### M G, BMP ####[facility] [place] [address] [facility] Potassium [Moles/Vol] 4.7 mmol/L Normal 3.5-5.1 [facility] Comment on above: Performed By: #### Maliha G, BMP ####[facility] [place] [address] [facility] Sodium [Moles/Vol] 137 mmol/L Normal 136-145 [facility] Comment on above: Performed By: #### M Fabiana, BMP ####[facility] [place] [address] [facility] Urea nitrogen [Mass/Vol] 21 mg/dL Normal 7-25 [facility] Comment on above: Performed By: #### M Fabiana, BMP ####[facility] [place] [address] [facility] Glucose Poct Glucometerson 0 - Glucose [Mass/Vol] 179 mg/dL Normal [facility] Comment on above: Result Comment: [facility] Glucose Reference Range is dependent on time and content of last meal. Glucose of more than 200 mg/dL in a nonstressed, ambulatory subject supports the diagnosis of Diabetes Mellitus.PERFORMED BY:[address] [place], [place] [phone] MEDICAL BIANCA ROJO M.D. Performed By: #### G LULS ####Point of Care testing, Glucose [Mass/Vol] 157 mg/dL Normal [facility] Comment on above: Result Comment: [facility] Glucose Reference Range is dependent on time and content of last meal. Glucose of more than 200 mg/dL in a nonstressed, ambulatory subject supports the diagnosis of Diabetes Mellitus.PERFORMED BY:[address] [address] [place], [place] [phone] MEDICAL BIANCA RJOO M.D. Performed By: #### G LULS ####Point of Care testing, Glucose [Mass/Vol] 91 mg/dL Normal [facility] Comment on above: Result Comment: [facility] Glucose Reference Range is dependent on time and content of last meal. Glucose of more than 200 mg/dL in a nonstressed, ambulatory subject supports the diagnosis of Diabetes Mellitus.PERFORMED BY:[address] [place]ERN[place], [place] [phone] MEDICAL BIANCA ROJO M.D. Performed By: #### G DOMINIC ####Point of Care testing, Glucose [Mass/Vol] 75 mg/dL Normal [facility] Comment on above: Result Comment: [facility] Glucose Reference Range is dependent on time and content of last meal. Glucose of more than 200 mg/dL in a nonstressed, ambulatory subject supports the diagnosis of Diabetes Mellitus.PERFORMED BY:[address] [place]scar[place]ec[place], [place] [phone] MEDICAL DIRECTORARIE ROJO M.D. Performed By: #### G DOMINIC ####Point of Care testing, Hemogram CBC Without Diffon 07-29-2023 Erythrocyte distribution width (RBC) [Ratio] 13.6 % Normal 11.9-15.3 [facility] Comment on above: Performed By: #### C BCNO ####[place] [id number] [facility] Hematocrit (Bld) [Volume fraction] 36.9 % Normal 34.0-46.4 [facility] Comment on above: Performed By: #### C BCNO ####[address] [address] [facility] Hemoglobin (Bld) [Mass/Vol] 12.4 g/dL Normal 11.8-15.4 [facility] Comment on above: Performed By: #### C BCNO ####[place] [id number] [facility] MCH (RBC) [Entitic mass] 29.9 pg Normal 24.7-34.3 [facility] Comment on above: Performed By: #### C BCNO ####[address] [address] [facility] MCV (RBC) [Entitic vol] 89.2 fL Normal 80-100 [facility] Comment on above: Performed By: #### C BCNO ####[address] [address] [facility] Mean Corpuscular HGB Conc 33.5 g/dL Normal 32.0-35.0 [facility] Comment on above: Performed By: #### C BCNO ####[address] [address] [facility] Platelet mean volume (Bld) [Entitic vol] 9.2 fL Normal 6.3-10.7 [facility] Comment on above: Result Comment: PERF ORMED BY:[place] [address] [place], [place] [phone] MEDICAL DIRECTORARIE ROJO M.D. Performed By: #### C BCNO ####[address] [address] [facility] Platelets (Bld) [#/Vol] 155 10*3/uL Normal 150-450 [facility] Comment on above: Performed By: #### C BCNO ####[address] [address] [facility] RBC (Bld) [#/Vol] 4.14 10*6/uL Normal 3.60-5.00 [facility] Comment on above: Performed By: #### C BCNO ####[address] [address] [facility] WBC (Bld) [#/Vol] 6.3 10*3/uL Normal 3.8-11.6 [facility] Comment on above: Performed By: #### C BCNO ####[address] [address] [facility] Magnesiumon 07-29-2023 Magnesium [Mass/Vol] 1.6 mg/dL Low 1.9-2.7 [facility] Comment on above: Result Comment: PERF ORMED BY:[address] [address] [place], [place] [phone] MEDICAL DIRECTORARIE ROJO M.D. Performed By: #### M G, BMP ####[address] [address] [facility] XR chest 1V portableon 07-28 XR chest 1V portable Normal [facility] Basic Metabolic Panelon 07-06 Anion gap [Moles/Vol] 13.8 mmol/L Normal 6.0-15.0 [facility] Comment on above: Performed By: #### B MP, MG ####[address] Calcium [Mass/Vol] 9.1 mg/dL Normal 8.6-10.3 [facility] Comment on above: Performed By: #### B MP, MG ####[address] Chloride [Moles/Vol] 100 mmol/L Normal 98-107 [facility] Comment on above: Performed By: #### B MP, MG ####[address] CO2 [Moles/Vol] 30.4 mmol/L Normal 21.0-31.0 [facility] Comment on above: Performed By: #### B MP, MG ####[address] Creatinine [Mass/Vol] 1.32 mg/dL High 0.60-1.20 [facility] Comment on above: Performed By: #### B MP, MG ####[address] Creatinine Clr Calc Pharmacy 39.18 Normal [facility] Comment on above: Performed By: #### B MP, MG ####[address] GFR/1.73 sq M.predicted MDRD (S/P/Bld) [Vol rate/Area] 43.434 mL/min/{1.73_m2} Normal [facility] Comment on above: Performed By: #### B MP, MG ####[address] Glucose [Mass/Vol] 114 mg/dL High 70-100 [facility] Comment on above: Result Comment: [place] Glucose Reference Range is dependent on time and content of last meal. Glucose of more than 200 mg/dL in a nonstressed, ambulatory subject supports the diagnosis of Diabetes Mellitus. ADA recommended reference range Performed By: #### B MP, MG ####[address] [address] [place] [address] [facility] Potassium [Moles/Vol] 5.2 mmol/L High 3.5-5.1 [facility] Comment on above: Performed By: #### B MP, MG ####[address] [place] [address] [facility] Sodium [Moles/Vol] 139 mmol/L Normal 136-145 [facility] Comment on above: Performed By: #### B MP, MG ####[address] [place] [address] [facility] Urea nitrogen [Mass/Vol] 32 mg/dL High 7-25 [facility] Comment on above: Performed By: #### B MP, MG ####[address] [address] [facility] Glucose Poct Glucometerson 0 07-28-2023 Glucose [Mass/Vol] 138 mg/dL Normal [facility] Comment on above: Result Comment: [place] om Glucose Reference Range is dependent on time and content of last meal. Glucose of more than 200 mg/dL in a nonstressed, ambulatory subject supports the diagnosis of Diabetes Mellitus.PERFORMED BY:[address] [address] [place], [place] [phone] MEDICAL DIRECTORARIE ROJO M.D. Performed By: #### G LULS ####Point of Care testing, Commemt1 Glu2: Cleaned Meter Normal [facility] Comment on above: Result Comment: PERF ORMED BY:[address] [address] [place], [place] [phone] MEDICAL DIRECTORARIE ROJO M.D. Performed By: #### G LULS ####Point of Care testing, Glucose [Mass/Vol] 99 mg/dL Normal [facility] Comment on above: Result Comment: [place] om Glucose Reference Range is dependent on time and content of last meal. Glucose of more than 200 mg/dL in a nonstressed, ambulatory subject supports the diagnosis of Diabetes Mellitus. Performed By: #### G LULS ####Point of Care testing, Commemt1 Glu2: Cleaned Meter Normal [facility] Comment on above: Result Comment: PERF ORMED BY:[address] [address] [address] [place]Cecy[place], [place] [phone] MEDICAL DIRECTORARIE ROJO M.D. Performed By: #### G LULS ####Point of Care testing, Glucose [Mass/Vol] 127 mg/dL Normal [facility] Comment on above: Result Comment: [place] [facility] Glucose Reference Range is dependent on time and content of last meal. Glucose of more than 200 mg/dL in a nonstressed, ambulatory subject supports the diagnosis of Diabetes Mellitus. Performed By: #### G LULS ####Point of Care testing, Commemt1 Glu2: Cleaned Meter Normal [facility] Comment on above: Result Comment: PERF ORMED BY:[address] [place], [place] [phone] MEDICAL DIRECTORARIE ROJO M.D. Performed By: #### G LULS ####Point of Care testing, Glucose [Mass/Vol] 106 mg/dL Normal [facility] Comment on above: Result Comment: [place] om Glucose Reference Range is dependent on time and content of last meal. Glucose of more than 200 mg/dL in a nonstressed, ambulatory subject supports the diagnosis of Diabetes Mellitus. Performed By: #### G LULS ####Point of Care testing, Magnesiumon 07-28-2023 Magnesium [Mass/Vol] 1.7 mg/dL Low 1.9-2.7 [facility] Comment on above: Result Comment: PERF ORMED BY:[address] [place], [place] [phone] MEDICAL DIRECTORARIE ROJO M.D. Performed By: #### B MP, MG ####[address] [address] [facility] No Panel InformationOrdered By: Jaylan Child on 07-28-2023 Bedside Glucose Comment Glu2: cleaned meter [facility] Activated partial thrombopla stin time (aPTT) in platelet poor plasma by coagulation aOrdered By: Saturnino Cortés on 07-27-2023 aPTT Coag (PPP) [Time] 25.9 s 25.1-36.5 [facility] Comment on above: A hematocrit value g reater than 55% may lead to inaccurate results in coagulation testing. Patients having hematocrit values >55% require a special collection tube for coagulation studies. Please contact the laboratory at [phone] for redraw instructions. Automated basophil %Ordered By: Saturnino Cortés on 07-27-2023 Basophils/100 WBC (Bld) 0.3 % Normal . [facility] Comment on above: Performed By: #### P TT, CBC, PT ####[address] Automated basophil countOrde red By: Saturnino Cortés on 07-27-2023 Basophils (Bld) [#/Vol] 0.0 10*3/uL Normal 0.0-0.2 [facility] Comment on above: Result Comment: PERF ORMED BY:[address] [place], [place] [phone] MEDICAL DIRECTORARIE ROJO M.D. Performed By: #### P TT, CBC, PT ####[address] Automated blood monocyte cou ntOrdered By: Saturnino Cortés on 07-27-2023 Monocytes (Bld) [#/Vol] 0.4 10*3/uL Normal 0.0-0.8 [facility] Comment on above: Performed By: #### P TT, CBC, PT ####[address] Automated eosinophil %Ordere d By: Saturnino Cortés on 07-27-2023 Eosinophils/100 WBC (Bld) 0.3 % Normal . [facility] Comment on above: Performed By: #### P TT, CBC, PT ####[place] [address] [place] Automated eosinophil countOr dered By: Saturnino Cortés on 07-27-2023 Eosinophils (Bld) [#/Vol] 0.0 10*3/uL Normal 0.0-0.45 [facility] Comment on above: Performed By: #### P TT, CBC, PT ####[address] Automated monocyte %Ordered By: Saturnino Cortés on 07-27-2023 Monocytes/100 WBC (Bld) 7.0 % Normal . [facility] Comment on above: Performed By: #### P TT, CBC, PT ####[address] Automated neutrophil %Ordere d By: Saturnino Cortés on 07-27-2023 Neutrophils/100 WBC (Bld) 80.6 % Normal . [facility] Comment on above: Performed By: #### P TT, CBC, PT ####[address] Basic Metabolic Panelon 07-06 Anion gap [Moles/Vol] 5.8 mmol/L Low 6.0-15.0 [facility] Comment on above: Performed By: #### M Fabiana, BMP ####[address] Calcium [Mass/Vol] 8.1 mg/dL Low 8.6-10.3 [facility] Comment on above: Performed By: #### M G, BMP ####[address] Chloride [Moles/Vol] 102 mmol/L Normal 98-107 [facility] Comment on above: Performed By: #### M G, BMP ####[address] CO2 [Moles/Vol] 32.6 mmol/L High 21.0-31.0 [facility] Comment on above: Performed By: #### M G, BMP ####[place] [address] [place] Creatinine [Mass/Vol] 1.52 mg/dL High 0.60-1.20 [facility] Comment on above: Performed By: #### Maliha Jung, BMP ####[place] [id number] [facility] Creatinine Clr Calc Pharmacy 32.81 Normal [facility] Comment on above: Performed By: #### Maliha Jung, BMP ####[place] [address] [place] [address] [facility] GFR/1.73 sq M.predicted MDRD (S/P/Bld) [Vol rate/Area] 36.669 mL/min/{1.73_m2} Normal [facility] Comment on above: Performed By: #### Maliha Jung, BMP ####[address] Glucose [Mass/Vol] 132 mg/dL High 70-100 [facility] Comment on above: Result Comment: [place] Glucose Reference Range is dependent on time and content of last meal. Glucose of more than 200 mg/dL in a nonstressed, ambulatory subject supports the diagnosis of Diabetes Mellitus. ADA recommended reference range Performed By: #### Maliha Jung, BMP ####[address] Potassium [Moles/Vol] 4.4 mmol/L Normal 3.5-5.1 [facility] Comment on above: Performed By: #### Maliha Jung, BMP ####[address] Sodium [Moles/Vol] 136 mmol/L Normal 136-145 [facility] Comment on above: Performed By: #### Maliha Jung, BMP ####[place] [id number] [facility] Urea nitrogen [Mass/Vol] 41 mg/dL High 7-25 [facility] Comment on above: Performed By: #### Maliha Jung, BMP ####[place] [phone] [facility] Complete Blood Count Auto Di ffon 07-27-2023 Erythrocyte distribution width (RBC) [Ratio] 13.8 % Normal 11.9-15.3 [facility] Comment on above: Performed By: #### P TT, CBC, PT ####[address] Hematocrit (Bld) [Volume fraction] 32.7 % Low 34.0-46.4 [facility] Comment on above: Performed By: #### P TT, CBC, PT ####[address] Hemoglobin (Bld) [Mass/Vol] 11.2 g/dL Low 11.8-15.4 [facility] Comment on above: Performed By: #### P TT, CBC, PT ####[address] MCH (RBC) [Entitic mass] 30.1 pg Normal 24.7-34.3 [facility] Comment on above: Performed By: #### P TT, CBC, PT ####[address] MCV (RBC) [Entitic vol] 88.1 fL Normal 80-100 [facility] Comment on above: Performed By: #### P TT, CBC, PT ####[address] Mean Corpuscular HGB Conc 34.1 g/dL Normal 32.0-35.0 [facility] Comment on above: Performed By: #### P TT, CBC, PT ####[address] NRBC% 0.1 /100{WBC} Normal 0-0.5 [facility] Comment on above: Performed By: #### P TT, CBC, PT ####[address] Platelet mean volume (Bld) [Entitic vol] 9.1 fL Normal 6.3-10.7 [facility] Comment on above: Performed By: #### P TT, CBC, PT ####[facility] [place] [address] [facility] Platelets (Bld) [#/Vol] 119 10*3/uL Low 150-450 [facility] Comment on above: Performed By: #### P TT, CBC, PT ####[address] [place] [address] [facility] RBC (Bld) [#/Vol] 3.71 10*6/uL Normal 3.60-5.00 [facility] Comment on above: Performed By: #### P TT, CBC, PT ####[address] [address] [facility] Glucose Poct Glucometerson 0 07-27-2023 Glucose [Mass/Vol] 155 mg/dL Normal [facility] Comment on above: Result Comment: [place] Glucose Reference Range is dependent on time and content of last meal. Glucose of more than 200 mg/dL in a nonstressed, ambulatory subject supports the diagnosis of Diabetes Mellitus.PERFORMED BY:[address] [place], [place] [phone] MEDICAL DIRECTORARIE ROJO M.D. Performed By: #### G LULS ####Point of Care testing, Glucose [Mass/Vol] 119 mg/dL Normal [facility] Comment on above: Result Comment: [facility] Glucose Reference Range is dependent on time and content of last meal. Glucose of more than 200 mg/dL in a nonstressed, ambulatory subject supports the diagnosis of Diabetes Mellitus.PERFORMED BY:[address] [address] [address] [place], [place] [phone] MEDICAL BIANCA ROJO M.D. Performed By: #### G LULS ####Point of Care testing, Commemt1 Glu2: Cleaned Meter Normal [facility] Comment on above: Result Comment: PERF ORMED BY:[address] [address] [address] [place], [place] [phone] MEDICAL DIRECTORARIE ROJO M.D. Performed By: #### G LULS ####Point of Care testing, Glucose [Mass/Vol] 132 mg/dL Normal [facility] Comment on above: Result Comment: [place] om Glucose Reference Range is dependent on time and content of last meal. Glucose of more than 200 mg/dL in a nonstressed, ambulatory subject supports the diagnosis of Diabetes Mellitus. Performed By: #### G LULS ####Point of Care testing, Commemt1 Glu2: Cleaned Meter Normal [facility] Comment on above: Result Comment: PERF ORMED BY:[facility] [place] [place], [place] [phone] MEDICAL DIRECTORARIE ROJO M.D. Performed By: #### G LULS ####Point of Care testing, Glucose [Mass/Vol] 113 mg/dL Normal [facility] Comment on above: Result Comment: [place] om Glucose Reference Range is dependent on time and content of last meal. Glucose of more than 200 mg/dL in a nonstressed, ambulatory subject supports the diagnosis of Diabetes Mellitus. Performed By: #### G LULS ####Point of Care testing, INR in Platelet poor plasma by Coagulation assayOrdered By: Saturnino Cortés on 07-27-2023 INR Coag (PPP) [Relative time] 0.9 {INR} Normal [facility] Comment on above: INR Therapeutic Rang e A) Pre- and Peroperative OAT started two weeks before surgery. NOT HIP SURGERY: 1.5 - 2.5 HIP SURGERY: 2 - 3B) Primary and secondary prevention of venous THROMBOSIS: 2 - 3C) Active venous thrombosis, pulmonary embolismand prevention of recurrent venous thrombosis: 2 - 3D) Prevention of arterial thromboembolismincluding patients with mechanical heart valves: 3 - 4.5 Result Comment: INR Therapeutic Range A) Pre- and Peroperative OAT started two weeks before surgery. NOT HIP SURGERY: 1.5 - 2.5 HIP SURGERY: 2 - 3 B) Primary and secondary prevention of venous THROMBOSIS: 2 - 3 C) Active venous thrombosis, pulmonary embolism and prevention of recurrent venous thrombosis: 2 - 3 D) Prevention of arterial thromboembolism including patients with mechanical heart valves: 3 - 4.5 Performed By: #### P TT, CBC, PT ####[facility] [id number] [place] [id number] [facility] Leukocytes [#/volume] in Blo od by Automated countOrdered By: Saturnino Cortés on 07-27-2023 WBC (Bld) [#/Vol] 6.1 10*3/uL Normal 3.8-11.6 [facility] Comment on above: Performed By: #### P TT, CBC, PT ####[address] Lymphocytes [#/volume] in Bl ood by Automated countOrdered By: Saturnino Benedictland on 07-27-2023 Lymphocytes (Bld) [#/Vol] 0.7 10*3/uL Low 1.00-4.8 [facility] Comment on above: Performed By: #### P TT, CBC, PT ####[address] Lymphocytes/100 leukocytes i n Blood by Automated countOrdered By: Saturnino Cortés on 07-27-2023 Lymphocytes/100 WBC (Bld) 11.8 % Normal . [facility] Comment on above: Performed By: #### P TT, CBC, PT ####[address] Magnesiumon 07-27-2023 Magnesium [Mass/Vol] 1.9 mg/dL Normal 1.9-2.7 [facility] Comment on above: Result Comment: PERF ORMED BY:[address] [place], [place] [phone] MEDICAL BIANCA ROJO M.D. Performed By: #### M G, BMP ####[address] Neutrophils [#/volume] in Bl ood by Automated countOrdered By: Saturnino Cortés on 07-27-2023 Neutrophils (Bld) [#/Vol] 4.9 10*3/uL Normal 1.8-7.7 [facility] Comment on above: Performed By: #### P TT, CBC, PT ####[address] Nucleated erythrocytes [Pres ence] in Blood by Automated countOrdered By: Saturnino Cortés on 07-27-2023 Nucleated RBC Auto Ql (Bld) 0.1 /100{WBC} 0-0.5 [facility] Partial Thromboplastin Timeo n 07-27-2023 aPTT Coag (Bld) [Time] 25.9 s Normal 25.1-36.5 [facility] Comment on above: Result Comment: A he matocrit value greater than 55% may lead to inaccurate results in coagulation testing. Patients having hematocrit values >55% require a special collection tube for coagulation studies. Please contact the laboratory at [phone] for redraw instructions.PERFORMED BY:[address] [address] [address] [place], [place] [phone] MEDICAL DIRECTORARIE ROJO M.D. Performed By: #### P TT, CBC, PT ####[facility] [id number] [place] [address] [facility] Prothrombin time (PT)Ordered By: Saturnino Cortés on 07-27-2023 PT Coag (PPP) [Time] 10.7 s Normal 9.0-12.9 [facility] Comment on above: A hematocrit value g reater than 55% may lead to inaccurate results in coagulation testing. Patients having hematocrit values >55% require a special collection tube for coagulation studies. Please contact the laboratory at [phone] for redraw instructions. Result Comment: A he matocrit value greater than 55% may lead to inaccurate results in coagulation testing. Patients having hematocrit values >55% require a special collection tube for coagulation studies. Please contact the laboratory at [phone] for redraw instructions. Performed By: #### P TT, CBC, PT ####[facility] [id number] [place] [address] [facility] Activated partial thrombopla stin time (aPTT) in platelet poor plasma by coagulation aOrdered By: Saturnino Cortés on 07-26-2023 aPTT Coag (PPP) [Time] 29.6 s 25.1-36.5 [facility] Comment on above: A hematocrit value g reater than 55% may lead to inaccurate results in coagulation testing. Patients having hematocrit values >55% require a special collection tube for coagulation studies. Please contact the laboratory at [phone] for redraw instructions. Automated basophil %Ordered By: Veronicaana paula Cortés on 07-26-2023 Basophils/100 WBC (Bld) 1.1 % Normal . [facility] Comment on above: Performed By: #### P TT, PT, CBC ####[place] [id number] [facility] Automated basophil countOrde red By: Saturnino Cortés on 07-26-2023 Basophils (Bld) [#/Vol] 0.1 10*3/uL Normal 0.0-0.2 [facility] Comment on above: Result Comment: PERF ORMED BY:[address] [place], [place] [phone] MEDICAL DIRECTORARIE ROJO M.D. Performed By: #### P TT, PT, CBC ####[address] Automated blood monocyte cou ntOrdered By: Saturnino Cortés on 07-26-2023 Monocytes (Bld) [#/Vol] 0.2 10*3/uL Normal 0.0-0.8 [facility] Comment on above: Performed By: #### P TT, PT, CBC ####[place] [phone] [facility] Automated eosinophil %Ordere d By: Saturnino Cortés on 07-26-2023 Eosinophils/100 WBC (Bld) 0.0 % Normal . [facility] Comment on above: Performed By: #### P TT, PT, CBC ####[address] Automated eosinophil countOr dered By: Saturnino Cortés on 07-26-2023 Eosinophils (Bld) [#/Vol] 0.0 10*3/uL Normal 0.0-0.45 [facility] Comment on above: Performed By: #### P TT, PT, CBC ####[place] [phone] [place] Automated monocyte %Ordered By: Saturnino Cortés on 07-26-2023 Monocytes/100 WBC (Bld) 3.2 % Normal . [facility] Comment on above: Performed By: #### P TT, PT, CBC ####[address] Automated neutrophil %Ordere d By: Saturnino Cortés on 07-26-2023 Neutrophils/100 WBC (Bld) 92.5 % Normal . [facility] Comment on above: Performed By: #### P TT, PT, CBC ####[address] Bacteria [Presence] in Urine by AutomatedOrdered By: Saturnino Cortés on 07-26-2023 Bacteria Auto Ql (U) 3+ [HPF] High None Seen [facility] Bilirubin Test strip Ql (U)O rdered By: Saturnino Cortés on 07-26-2023 Bilirubin Ql (U) Negative Negative [facility] Color of Urine by AutoOrdere d By: Saturnino Cortés on 07-26-2023 Color (U) Yellow Normal Yellow [facility] Comment on above: Order Comment: Name Collection Type:: Hanson Catheter Performed By: #### A BRENDEN GARCIAU ####[address] Complete Blood Count Auto Di ffon 07-26-2023 Mean Corpuscular HGB Conc 33.6 g/dL Normal 32.0-35.0 [facility] Comment on above: Performed By: #### P TT, PT, CBC ####[address] Monocyte Distribution Width Not performed Normal 0.00-20.00 [facility] Comment on above: Result Comment: Unab le to calculate MDW because the Absolute Monocyte Count is <0.8. Performed By: #### P TT, PT, CBC ####[address] NRBC% 0.1 /100{WBC} Normal 0-0.5 [facility] Comment on above: Performed By: #### P TT, PT, CBC ####[address] [address] [facility] Dipstick and Microscopicon 0 07-26-2023 Appearance (U) Clear Normal Clear [facility] Comment on above: Order Comment: Name Collection Type:: Hanson Catheter Performed By: #### A DDONUAPLUS, CUU ####[address] [address] [facility] Bacteria,Urine 3+ High None Seen [facility] Comment on above: Order Comment: Name Collection Type:: Hanson Catheter Performed By: #### A DDONUAPLUS, CUU ####[address] [address] [facility] Bilirubin,Urine Negative Normal Negative [facility] Comment on above: Order Comment: Name Collection Type:: Hanson Catheter Performed By: #### A DDONUAPLUS, CUU ####[address] [address] [facility] Glucose Ql (U) Normal Normal Normal [facility] Comment on above: Order Comment: Name Collection Type:: Hanson Catheter Performed By: #### A DDONUAPLUS, CUU ####[address] [address] [facility] Hyaline Casts,Urine 0-8 Normal 0-8 [facility] Comment on above: Order Comment: Name Collection Type:: Hanson Catheter Result Comment: PERF ORMED BY:[address] [place]ES[place], [place] [phone] MEDICAL BIANCA ROJO M.D. Performed By: #### A DDONUAPLUS, CUU ####[address] [address] [facility] Ketones Ql (U) Negative Normal Negative [facility] Comment on above: Order Comment: Name Collection Type:: Hanson Catheter Performed By: #### A DDONUAPLUS, CUU ####[address] [address] [facility] Leukocyte esterase Test strip Ql (U) 3+ High Negative [facility] Comment on above: Order Comment: Name Collection Type:: Hanson Catheter Performed By: #### A DDONUAPLUS, CUU ####[address] [address] [facility] Nitrite,Urine Positive High Negative [facility] Comment on above: Order Comment: Name Collection Type:: Hanson Catheter Performed By: #### A DDONUAPLUS, CUU ####[address] [address] [facility] Occult Blood,Urine Negative Normal Negative [facility] Comment on above: Order Comment: Name Collection Type:: Hanson Catheter Result Comment: PERF ORMED BY:[address] [place], [place] [phone] MEDICAL DIRECTORARIE ROJO M.D. Performed By: #### A DDONUAPLUS, CUU ####[address] Protein,Urine Trace High Negative [facility] Comment on above: Order Comment: Name Collection Type:: Hanson Catheter Performed By: #### A DDONUAPLUS, CUU ####[place] [id number] [facility] RBC,Urine 1-2 Normal 0-4 [facility] Comment on above: Order Comment: Name Collection Type:: Hanson Catheter Performed By: #### A DDONUAPLUS, CUU ####[place] [id number] [facility] Specificy [place],Urine 1.014 Normal 1.001-1.03 0 [facility] Comment on above: Order Comment: Name Collection Type:: Hanson Catheter Performed By: #### A DDONUAPLUS, CUU ####[place] [id number] [facility] Squamous Epithelial Cell,Urine None Seen Normal 0-2 [facility] Comment on above: Order Comment: Name Collection Type:: Hanson Catheter Performed By: #### A DDONUAPLUS, CUU ####[facility] [address] [place] [address] [facility] Urobilinogen,Urine Normal Normal Normal [facility] Comment on above: Order Comment: Name Collection Type:: Hanson Catheter Performed By: #### A DDONUAPLUS, CUU ####[facility] [place] [address] [facility] WBC,Urine 20-49 High 0-4 [facility] Comment on above: Order Comment: Name Collection Type:: Hanson Catheter Performed By: #### A DDONUAPLUS, CUU ####[address] [place] [address] [facility] ECH echo transthoracicon ECH echo transthoracic Normal Th e [facility] Erythrocyte distribution wid th [Ratio] by Automated countOrdered By: Saturnino Cortés on 07-26-2023 Erythrocyte distribution width (RBC) [Ratio] 13.7 % Normal 11.9-15.3 [facility] Comment on above: Performed By: #### P TT, PT, CBC ####[place] [address] Erythrocytes [#/area] in Uri ne sediment by Automated countOrdered By: Saturnino Cortés on 07-26-2023 RBC Auto (Urine sed) [#/Area] 1-2 [HPF] 0-4 [facility] Erythrocytes [#/volume] in B lood by Automated countOrdered By: Saturnino Cortés on 07-26-2023 RBC (Bld) [#/Vol] 4.17 10*6/uL Normal 3.60-5.00 [facility] Comment on above: Performed By: #### P TT, PT, CBC ####[place] [address] [place] [address] [facility] Glucose Poct Glucometerson 0 07-26-2023 Glucose [Mass/Vol] 126 mg/dL Normal [facility] Comment on above: Result Comment: [place] om Glucose Reference Range is dependent on time and content of last meal. Glucose of more than 200 mg/dL in a nonstressed, ambulatory subject supports the diagnosis of Diabetes Mellitus.PERFORMED BY:[place] [address] [place] [place], [place] [phone] MEDICAL DIRECTORARIE ROJO M.D. Performed By: #### G LULS ####Point of Care testing, Commemt1 Glu2: Cleaned Meter Normal [facility] Comment on above: Result Comment: PERF ORMED BY:[place] [address] [address] AUDREYÓscarCecyROBERTSILOAM, [place] [phone] MEDICAL DIRECTORARIE ROJO M.D. Performed By: #### G LULS ####Point of Care testing, Glucose [Mass/Vol] 141 mg/dL Normal [facility] Comment on above: Result Comment: [place] om Glucose Reference Range is dependent on time and content of last meal. Glucose of more than 200 mg/dL in a nonstressed, ambulatory subject supports the diagnosis of Diabetes Mellitus. Performed By: #### G LULS ####Point of Care testing, Commemt1 Glu2: Cleaned Meter Normal [facility] Comment on above: Result Comment: PERF ORMED BY:[place] [address] [place] CARTERCecyROB[place], [place] [phone] MEDICAL DIRECTORARIE ROJO M.D. Performed By: #### G LULS ####Point of Care testing, Glucose [Mass/Vol] 141 mg/dL Normal [facility] Comment on above: Result Comment: [place] Glucose Reference Range is dependent on time and content of last meal. Glucose of more than 200 mg/dL in a nonstressed, ambulatory subject supports the diagnosis of Diabetes Mellitus. Performed By: #### G LULS ####Point of Care testing, Commemt1 Glu2: Cleaned Meter Normal [facility] Comment on above: Result Comment: PERF ORMED BY:[place] [address] [place], [place] [phone] MEDICAL BIANCA ROJO M.D. Performed By: #### G LULS ####Point of Care testing, Glucose [Mass/Vol] 162 mg/dL Normal [facility] Comment on above: Result Comment: [facility] Glucose Reference Range is dependent on time and content of last meal. Glucose of more than 200 mg/dL in a nonstressed, ambulatory subject supports the diagnosis of Diabetes Mellitus. Performed By: #### G DOMINIC ####Point of Care testing, Hematocrit [Volume Fraction] of Blood by Automated countOrdered By: Saturnino Cortés on 07-26-2023 Hematocrit (Bld) [Volume fraction] 36.9 % Normal 34.0-46.4 [facility] Comment on above: Performed By: #### P TT, PT, CBC ####[place] [id number] [facility] Hemoglobin [Mass/volume] in BloodOrdered By: Saturnino Cortés on 07-26-2023 Hemoglobin (Bld) [Mass/Vol] 12.4 g/dL Normal 11.8-15.4 [facility] Comment on above: Performed By: #### P TT, PT, CBC ####[place] [id number] [facility] INR in Platelet poor plasma by Coagulation assayOrdered By: Saturnino Cortés on 07-26-2023 INR Coag (PPP) [Relative time] 1.0 {INR} Normal [facility] Comment on above: INR Therapeutic Rang e A) Pre- and Peroperative OAT started two weeks before surgery. NOT HIP SURGERY: 1.5 - 2.5 HIP SURGERY: 2 - 3B) Primary and secondary prevention of venous THROMBOSIS: 2 - 3C) Active venous thrombosis, pulmonary embolismand prevention of recurrent venous thrombosis: 2 - 3D) Prevention of arterial thromboembolismincluding patients with mechanical heart valves: 3 - 4.5 Result Comment: INR Therapeutic Range A) Pre- and Peroperative OAT started two weeks before surgery. NOT HIP SURGERY: 1.5 - 2.5 HIP SURGERY: 2 - 3 B) Primary and secondary prevention of venous THROMBOSIS: 2 - 3 C) Active venous thrombosis, pulmonary embolism and prevention of recurrent venous thrombosis: 2 - 3 D) Prevention of arterial thromboembolism including patients with mechanical heart valves: 3 - 4.5 Performed By: #### P TT, PT, CBC ####[place] [id number] [facility] Ketones Auto test strip (U) [Mass/Vol]Ordered By: Saturnino Cortés on 07-26-2023 Ketones (U) [Mass/Vol] Negative Negative [facility] - UrinalysisOrder ed By: Saturnino Cortés on 07-26-2023 Hyaline casts LM Ql (Urine sed) 0-8 [LPF] 0-8 [facility] Leukocytes [#/area] in Urine sediment by Automated countOrdered By: Saturnino Cortés on 07-26-2023 WBC Auto (Urine sed) [#/Area] 20-49 [HPF] High 0-4 [facility] Leukocytes [#/volume] correc hugh for nucleated erythrocytes in Blood by Automated counOrdered By: Saturnino Cortés on 07-26-2023 WBC corrected for nucl RBC Auto (Bld) [#/Vol] 6.8 10*3/uL 3.8-11.6 [facility] Leukocytes [#/volume] in Blo od by Automated countOrdered By: Saturnino Cortés on 07-26-2023 WBC (Bld) [#/Vol] 6.8 10*3/uL Normal 3.8-11.6 [facility] Comment on above: Performed By: #### P TT, PT, CBC ####[facility] [address] [place] [address] Lymphocytes [#/volume] in Bl ood by Automated countOrdered By: Saturnino Cortés on 07-26-2023 Lymphocytes (Bld) [#/Vol] 0.2 10*3/uL Low 1.00-4.8 [facility] Comment on above: Performed By: #### P TT, PT, CBC ####[facility] [address] [place] [address] [facility] Lymphocytes/100 leukocytes i n Blood by Automated countOrdered By: Saturnino Cortés on 07-26-2023 Lymphocytes/100 WBC (Bld) 3.2 % Normal . [facility] Comment on above: Performed By: #### P TT, PT, CBC ####[facility] [id number] [place], [place] [id number] [place] MCH [Entitic mass] by Automa hugh countOrdered By: Saturnino Cortés on 07-26-2023 MCH (RBC) [Entitic mass] 29.8 pg Normal 24.7-34.3 [facility] Comment on above: Performed By: #### P TT, PT, CBC ####[facility] [id number] MCHC Auto (RBC) [Mass/Vol]Or dered By: Saturnino Cortés on 07-26-2023 MCHC (RBC) [Mass/Vol] 33.6 g/dL 32.0-35.0 [facility] MCV [Entitic volume] by Auto mated countOrdered By: Saturnino Cortés on 07-26-2023 MCV (RBC) [Entitic vol] 88.6 fL Normal 80-100 [facility] Comment on above: Performed By: #### P TT, PT, CBC ####[address] Monocyte distribution width [Entitic volume] in Blood by AutomatedOrdered By: Saturnino Cortés on 07-26-2023 Monocyte distribution width Auto (Bld) [Entitic vol] Test not performed % 0.00-20.00 [facility] Comment on above: Unable to calculate MDW because the Absolute Monocyte Count is <0.8. Neutrophils [#/volume] in Bl ood by Automated countOrdered By: Saturnino Cortés on 07-26-2023 Neutrophils (Bld) [#/Vol] 6.3 10*3/uL Normal 1.8-7.7 [facility] Comment on above: Performed By: #### P TT, PT, CBC ####[facility] [id number] Nitrite Test strip Ql (U)Ord ered By: Saturnino Cortés on 07-26-2023 Nitrite Ql (U) Positive High Negative [facility] Nucleated erythrocytes [Pres ence] in Blood by Automated countOrdered By: Saturnino Cortés on 07-26-2023 Nucleated RBC Auto Ql (Bld) 0.1 /100{WBC} 0-0.5 [facility] Partial Thromboplastin Timeo n 07-26-2023 aPTT Coag (Bld) [Time] 29.5 s Normal 25.1-36.5 [facility] Comment on above: Result Comment: A he matocrit value greater than 55% may lead to inaccurate results in coagulation testing. Patients having hematocrit values >55% require a special collection tube for coagulation studies. Please contact the laboratory at [phone] for redraw instructions.PERFORMED BY:[place] [address] [address] [place], [place] [phone] MEDICAL DIRECTORARIE ROJO M.D. Performed By: #### P TT ####[address] [address] [facility] aPTT Coag (Bld) [Time] 53.6 s High 25.1-36.5 [facility] Comment on above: Order Comment: Comme nt Pt on heparin drip List the anticoagulant: HEPARIN, UNFRACTIONATED Result Comment: A he matocrit value greater than 55% may lead to inaccurate results in coagulation testing. Patients having hematocrit values >55% require a special collection tube for coagulation studies. Please contact the laboratory at [phone] for redraw instructions.PERFORMED BY:[place] [address] [place] CARTERCecy[place]OB[place], [place] [phone] MEDICAL BIANCA ROJO M.D. Performed By: #### P TT ####[address] [address] [facility] aPTT Coag (Bld) [Time] 29.6 s Normal 25.1-36.5 [facility] Comment on above: Result Comment: A he matocrit value greater than 55% may lead to inaccurate results in coagulation testing. Patients having hematocrit values >55% require a special collection tube for coagulation studies. Please contact the laboratory at [phone] for redraw instructions.PERFORMED BY:[place] [address] [address] CAR[place]CecyROBERTS[place], [place] [phone] MEDICAL BIANCA ROJO M.D. Performed By: #### P TT, PT, CBC ####[address] [address] [facility] Platelet mean volume [Entiti c volume] in Blood by Automated countOrdered By: Saturnino Cortés on 07-26-2023 Platelet mean volume (Bld) [Entitic vol] 8.9 fL Normal 6.3-10.7 [facility] Comment on above: Performed By: #### P TT, PT, CBC ####[place] [address] [place] [address] [facility] Platelets [#/volume] in Bloo d by Automated countOrdered By: Saturnino Cortés on 07-26-2023 Platelets (Bld) [#/Vol] 105 10*3/uL Low 150-450 [facility] Comment on above: Performed By: #### P TT, PT, CBC ####[place] [address] [place] [address] [facility] Protein Auto test strip (U) [Mass/Vol]Ordered By: Saturnino Cortés on 07-26-2023 Protein (U) [Mass/Vol] Trace mg/dL High Negative [facility] Prothrombin time (PT)Ordered By: Saturnino Cortés on 07-26-2023 PT Coag (PPP) [Time] 11.4 s Normal 9.0-12.9 [facility] Comment on above: A hematocrit value g reater than 55% may lead to inaccurate results in coagulation testing. Patients having hematocrit values >55% require a special collection tube for coagulation studies. Please contact the laboratory at [phone] for redraw instructions. Result Comment: A he matocrit value greater than 55% may lead to inaccurate results in coagulation testing. Patients having hematocrit values >55% require a special collection tube for coagulation studies. Please contact the laboratory at [phone] for redraw instructions. Performed By: #### P TT, PT, CBC ####[place] [address] [place] [address] [facility] Specific gravity Auto test s trip (U) [Rel density]Ordered By: Saturnino Cortés on 07-26-2023 Specific gravity (U) [Rel density] 1.014 1.001-1.03 0 [facility] Squamous epithelial cells de tection in urine sediment by light microscopyOrdered By: Saturnino Cortés on 07-26-2023 Epithelial cells.squamous LM Ql (Urine sed) None seen [HPF] 0-2 [facility] Troponin I High Sensitivityo n 07-26-2023 Troponin I High Sensitivity 109.7 pg/mL Off scale high 0.0-15.0 [facility] Comment on above: Result Comment: Crit ical Result : Called to and read back by: TRISH LUBIN at: 07/26/2023 01:25:04 by:[id number] BY:[address] ERNANDEZAL[place], [place] [phone] MEDICAL DIRECTORARIE ROJO M.D. Performed By: #### H S TROP ####[facility] [id number] [place] [address] [facility] Troponin I.cardiac [Mass/vol ume] in Serum or Plasma by Detection limit <= 0.01 ng/Ordered By: Saturnino Cortés on 07-26-2023 Troponin I.cardiac DL <= 0.01 ng/mL [Mass/Vol] 109.7 pg/mL High 0.0-15.0 [facility] Comment on above: Critical Result : Ca lled to and read back by: TRISH LUBIN at: 07/26/2023 01:25:04 by:[id number] Urine Cultureon 07-26-2023 Bacteria identified Cx Nom (U) Normal [facility] Comment on above: Performed By: #### A DDONUAPLUS, CUU ####[address] [address] [facility] Urine clarity by refractomet ry automatedOrdered By: Saturnino Cortés on 07-26-2023 Clarity Refractometry automated (U) Clear Clear [facility] Urine culture routineOrdered By: Saturnino Cortés on 07-26-2023 Bacteria identified Cx Nom (U) Escherichia coli Abnormal [facility] Urine glucose measurement by automated test strip (mass/volume)Ordered By: Saturnino Cortés on 07-26-2023 Glucose Auto test strip (U) [Mass/Vol] Normal mg/dL Normal [facility] Urine hemoglobin detection b y automated test stripOrdered By: Saturnino Cortés on 07-26-2023 Hemoglobin Auto test strip Ql (U) Negative Negative [facility] Urine leukocyte esterase det ection by automated test stripOrdered By: Saturnino Cortés on 07-26-2023 Leukocyte esterase Auto test strip Ql (U) 3+ High Negative [facility] Urine pH measurement by auto mated test stripOrdered By: Saturnino Cortés on 07-26-2023 pH (U) 5.5 [pH] Normal 5.0-9.0 [facility] Comment on above: Order Comment: Name Collection Type:: Hanson Catheter Performed By: #### A DDONUAPLUS, CUU ####[place] [address] [place] [address] [facility] Urobilinogen Auto test strip (U) [Mass/Vol]Ordered By: Saturnino Cortés on 07-26-2023 Urobilinogen (U) [Mass/Vol] Normal mg/dL Normal [facility] XR chest 1V portableon 07-25 XR chest 1V portable Normal [facility] Bacterial blood cultureOrder ed By: Saturnino Cortés on 07-25-2023 Bacteria identified Cx Nom (Bld) NO GROWTH 5 DAYS [facility] Bacteria identified Cx Nom (Bld) NO GROWTH 5 DAYS [facility] Basic Metabolic Panelon 07-06 Creatinine Clr Calc Pharmacy 27.22 Normal [facility] Comment on above: Result Comment: PERF ORMED BY:[address] [place], [place] [phone] MEDICAL DIRECTORARIE ROJO M.D. Performed By: #### C BC, HS TROP, BMP ####[place] [address] [place] [address] [facility] GFR/1.73 sq M.predicted MDRD (S/P/Bld) [Vol rate/Area] 29.936 mL/min/{1.73_m2} Normal [facility] Comment on above: Performed By: #### C BC, HS TROP, BMP ####[place] [address] [place] [address] [facility] Blood Cultureon 07-25-2023 Bacteria identified Cx Nom (Bld) NO GROWTH 5 DAYS PERFORMED BY: [facility] [address] [place] [id number] PATHOLOGIST IMMIGRATION OFFICER ARIE ROJO M.D. Normal [facility] Comment on above: Performed By: #### C UBLD ####[place] [id number] [facility] Bacteria identified Cx Nom (Bld) NO GROWTH 5 DAYS PERFORMED BY: [facility] [address] [place] [address] PATHOLOGIST IMMIGRATION OFFICER ARIE ROJO M.D. Normal [facility] Comment on above: Performed By: #### C UBLD ####[address] COVID CepheidOrdered By: Lee Benedictland on 07-25-2023 SARS-CoV-2 (COVID-19) Ab IA Ql Negative Negative [facility] Comment on above: This is a duplicate Cepheid Xpert Xpress CoV-2/Flu/RSV Plus RNA by RT-PCR result to be used for statistical tracking purpose only. SARS-CoV-2 (COVID-19) RNA MITCHELL+probe Ql (Unsp spec) Normal [facility] Comment on above: Performed By: #### C OVID19 FLU RSV, CEPHEID NEG ####[address] Calcium [Mass/volume] in Ser um or PlasmaOrdered By: Saturnino Cortés on 07-25-2023 Calcium [Mass/Vol] 8.9 mg/dL Normal 8.6-10.3 [facility] Comment on above: Performed By: #### C BC, HS TROP, BMP ####[place] [phone] [facility] Carbon dioxide, total [Moles /volume] in Serum or PlasmaOrdered By: Saturnino Cortés on 07-25-2023 CO2 [Moles/Vol] 32.3 mmol/L High 21.0-31.0 [facility] Comment on above: Performed By: #### C BC, HS TROP, BMP ####[place] [address] [place] [address] [facility] Cepheid COVID PCR Negativeon 07-25-2023 SARS-CoV-2 (COVID-19) RNA MITCHELL+probe Ql (Unsp spec) Negative Normal Negative [facility] Comment on above: Result Comment: This is a duplicate Cepheid Xpert Xpress CoV-2/Flu/RSV Plus RNA by RT-PCR result to be used for statistical tracking purpose only.PERFORMED BY:[address] [address] [address] H[place]ÁN[place], [place] [phone] MEDICAL DIRECTORARIE ROJO M.D. Performed By: #### C OVID19 FLU RSV, CEPHEID NEG ####[address] Chloride [Moles/volume] in S ciat or PlasmaOrdered By: Saturnino Cortés on 07-25-2023 Chloride [Moles/Vol] 96 mmol/L Low 98-107 [facility] Comment on above: Performed By: #### C BC, HS TROP, BMP ####[place] [phone] [facility] Complete Blood Count Auto Di ffon 07-25-2023 Basophils (Bld) [#/Vol] 0.1 10*3/uL Normal 0.0-0.2 [facility] Comment on above: Result Comment: PERF ORMED BY:[address] [address] [address] [address] [place], [place] [phone] MEDICAL DIRECTORARIE ROJO M.D. Performed By: #### C BC, HS TROP, BMP ####[place] [phone] [facility] Basophils/100 WBC (Bld) 1.4 % Normal . [facility] Comment on above: Performed By: #### C BC, HS TROP, BMP ####[place] [phone] [facility] Eosinophils (Bld) [#/Vol] 0.1 10*3/uL Normal 0.0-0.45 [facility] Comment on above: Performed By: #### C BC, HS TROP, BMP ####[place] [phone] [facility] Eosinophils/100 WBC (Bld) 0.8 % Normal . [facility] Comment on above: Performed By: #### C BC, HS TROP, BMP ####[place] [address] [facility] Erythrocyte distribution width (RBC) [Ratio] 13.6 % Normal 11.9-15.3 [facility] Comment on above: Performed By: #### C BC, HS TROP, BMP ####[place] [phone] [facility] Hematocrit (Bld) [Volume fraction] 40.3 % Normal 34.0-46.4 [facility] Comment on above: Performed By: #### C BC, HS TROP, BMP ####[place] [phone] [facility] Hemoglobin (Bld) [Mass/Vol] 13.5 g/dL Normal 11.8-15.4 [facility] Comment on above: Performed By: #### C BC, HS TROP, BMP ####[place] [phone] [facility] Lymphocytes (Bld) [#/Vol] 0.8 10*3/uL Low 1.00-4.8 [facility] Comment on above: Performed By: #### C BC, HS TROP, BMP ####[place] [phone] [facility] Lymphocytes/100 WBC (Bld) 10.7 % Normal . [facility] Comment on above: Performed By: #### C BC, HS TROP, BMP ####[place] [phone] [facility] MCH (RBC) [Entitic mass] 29.9 pg Normal 24.7-34.3 [facility] Comment on above: Performed By: #### C BC, HS TROP, BMP ####[place] [phone] [facility] MCV (RBC) [Entitic vol] 89.3 fL Normal 80-100 [facility] Comment on above: Performed By: #### C BC, HS TROP, BMP ####[place] [phone] [facility] Mean Corpuscular HGB Conc 33.4 g/dL Normal 32.0-35.0 [facility] Comment on above: Performed By: #### C BC, HS TROP, BMP ####[place] [place] [id number] [facility] Monocytes (Bld) [#/Vol] 0.6 10*3/uL Normal 0.0-0.8 [facility] Comment on above: Performed By: #### C BC, HS TROP, BMP ####[place] [id number] [facility] Monocytes/100 WBC (Bld) 27.64 % High 0.00-20.00 [facility] Comment on above: Result Comment: For adults in ED, MDW > 20.0 may be associated with a higher risk of sepsis during the first 12 hrs of hospital admission Performed By: #### C BC, HS TROP, BMP ####[place] [id number] [facility] Monocytes/100 WBC (Bld) 8.0 % Normal . [facility] Comment on above: Performed By: #### C BC, HS TROP, BMP ####[place] [id number] [facility] Neutrophils (Bld) [#/Vol] 5.8 10*3/uL Normal 1.8-7.7 [facility] Comment on above: Performed By: #### C BC, HS TROP, BMP ####[place] [id number] [facility] Neutrophils/100 WBC (Bld) 79.1 % Normal . [facility] Comment on above: Performed By: #### C BC, HS TROP, BMP ####[place] [id number] [facility] NRBC% 0.1 /100{WBC} Normal 0-0.5 [facility] Comment on above: Performed By: #### C BC, HS TROP, BMP ####[facility] [place] [address] [facility] Platelet mean volume (Bld) [Entitic vol] 9.0 fL Normal 6.3-10.7 [facility] Comment on above: Performed By: #### C BC, HS TROP, BMP ####[facility] [place] [address] [facility] Platelets (Bld) [#/Vol] 112 10*3/uL Low 150-450 [facility] Comment on above: Performed By: #### C BC, HS TROP, BMP ####[facility] [place] [address] [facility] RBC (Bld) [#/Vol] 4.51 10*6/uL Normal 3.60-5.00 [facility] Comment on above: Performed By: #### C BC, HS TROP, BMP ####[place] [address] [place] [address] [facility] WBC (Bld) [#/Vol] 7.3 10*3/uL Normal 3.8-11.6 [facility] Comment on above: Performed By: #### C BC, HS TROP, BMP ####[place] [id number] [place] [id number] [facility] Creatinine [Mass/volume] in Serum or PlasmaOrdered By: Saturnino Cortés on 07-25-2023 Creatinine [Mass/Vol] 1.80 mg/dL High 0.60-1.20 [facility] Comment on above: Performed By: #### C BC, HS TROP, BMP ####[place] [address] [place] [address] [facility] ECG 12 lead ECGon 07-25-2023 ECG 12 lead ECG Normal [facility] Glucose [Mass/volume] in Ser um or PlasmaOrdered By: Saturnino Cortés on 07-25-2023 Glucose [Mass/Vol] 146 mg/dL High 70-100 [facility] Comment on above: ADA recommended refe rence rangeRandom Glucose Reference Range is dependent on time and content of last meal. Glucose of more than 200 mg/dL in a nonstressed, ambulatory subject supports the diagnosis of Diabetes Mellitus. Result Comment: [place] Glucose Reference Range is dependent on time and content of last meal. Glucose of more than 200 mg/dL in a nonstressed, ambulatory subject supports the diagnosis of Diabetes Mellitus. ADA recommended reference range Performed By: #### C BC, HS TROP, BMP ####[facility] [address] [place] [address] [facility] Lactate [Moles/volume] in Se rum or PlasmaOrdered By: Saturnino Cortés on 07-25-2023 Lactate [Moles/Vol] 1.0 mmol/L Normal 0.5-2.2 [facility] Comment on above: Result Comment: PERF ORMED BY:[address] [place], [place] [phone] MEDICAL DIRECTORARIE ROJO M.D. Performed By: #### L ACTIC ####[facility] [place] [address] [facility] No Panel InformationOrdered By: Saturnino Cortés on 07-25-2023 Blood Gas Critical Value See comment [facility] Comment on above: Critical Value lopez d on: 07/25/2023 at 22:50 Blood Gas Sample Site Venous Fir [facility] FiO2 32 % [facility] Venous Blood Base Excess 4.2 mmol/L High -3.0-3.0 [facility] Venous Blood Oxygen Content 8.4 mmol/L 6.6-9.7 [facility] Venous Blood Oxygen Saturation 97.4 % High 73.0-76.0 [facility] Venous Blood Partial Pressure CO2 37.7 mm[Hg] Low 38.0-50.0 [facility] Venous Blood Partial Pressure O2 92.0 mm[Hg] High 35.0-45.0 [facility] Venous Blood pH 7.48 High 7.32-7.43 [facility] Estimated GFR (CKD-EPI) 29.936 mL/Min [facility] Creatinine Clearance (Chem 27.22 [facility] Potassium [Moles/volume] in Serum or PlasmaOrdered By: Saturnino Cortés on 07-25-2023 Potassium [Moles/Vol] 4.7 mmol/L Normal 3.5-5.1 [facility] Comment on above: Performed By: #### C BC, HS TROP, BMP ####[place] [id number] [place] [id number] [facility] Serum or plasma anion gap de terminationOrdered By: Saturnino Cortés on 07-25-2023 Anion gap [Moles/Vol] 12.4 mmol/L Normal 6.0-15.0 [facility] Comment on above: Performed By: #### C BC, HS TROP, BMP ####[place] [address] [place] [id number] [facility] Sodium [Moles/volume] in Ser um or PlasmaOrdered By: Saturnino Cortés on 07-25-2023 Sodium [Moles/Vol] 136 mmol/L Normal 136-145 [facility] Comment on above: Performed By: #### C BC, HS TROP, BMP ####[place] [address] [place] [id number] [facility] Troponin I High Sensitivityo n 07-25-2023 Troponin I High Sensitivity 68.6 pg/mL Off scale high 0.0-15.0 [facility] Comment on above: Result Comment: Crit ical Result : Called to and read back by: HOMERO TAYLOR at: 07/25/2023 23:37:30 by:[id number] BY:[place] [address] [place] [place], [place] [phone] MEDICAL DIRECTORARIE ROJO M.D. Performed By: #### C BC, HS TROP, BMP ####[place] [address] [place] [id number] [facility] Urea nitrogen [Mass/volume] in Serum or PlasmaOrdered By: Saturnino Cortés on 07-25-2023 Urea nitrogen [Mass/Vol] 38 mg/dL High 7-25 [facility] Comment on above: Performed By: #### C BC, HS TROP, BMP ####[place] [id number] [place] [id number] [facility] Venous Blood GasOrdered By: Saturnino Cortés on 07-25-2023 CO2 [Moles/Vol] 28.9 mmol/L Normal 24.0-29.0 [facility] Comment on above: Performed By: #### V BG ####Point of Care testing, HCO3 (Bld) [Moles/Vol] 27.7 mmol/L Normal 23.0-29.0 [facility] Comment on above: Performed By: #### V BG ####Point of Care testing, Venous Blood Gason Respiratory Critical Normal [facility] Comment on above: Result Comment: Crit ical Value called on: 07/25/2023 at 22:50PERFORMED BY:[facility] [place] [place], [place] [phone] MEDICAL DIRECTORARIE ROJO M.D. Performed By: #### V BG ####Point of Care testing, VBG Base Excess 4.2 mmol/L High -3.0-3.0 [facility] Comment on above: Performed By: #### V BG ####Point of Care testing, VBG Draw Site Venous Normal [facility] Comment on above: Performed By: #### V BG ####Point of Care testing, VBG Frac Inspired O2 32 % Normal [facility] Comment on above: Performed By: #### V BG ####Point of Care testing, VBG O2 Content 8.4 mmol/L Normal 6.6-9.7 [facility] Comment on above: Performed By: #### V BG ####Point of Care testing, VBG Oxygen Saturation 97.4 % Off scale high 73.0-76.0 [facility] Comment on above: Performed By: #### V BG ####Point of Care testing, VBG PCO2 37.7 mm[Hg] Low 38.0-50.0 [facility] Comment on above: Performed By: #### V BG ####Point of Care testing, VBG PH Venous PH 7.48 High 7.32-7.43 [facility] Comment on above: Performed By: #### V BG ####Point of Care testing, VBG PO2 92.0 mm[Hg] Off scale high 35.0-45.0 [facility] Comment on above: Performed By: #### V BG ####Point of Care testing, A1C HEMOGLOBINon 03-03-2023 HbA1c (Bld) [Mass fraction] 5.3 % [employer] [facility] FAD ? IO Other HbA1c (Bld) [Mass fraction]o n 03-03-2023 A1C HEMOGLOBIN [facility] FAD ? IO Other Alanine aminotransferase [En zymatic activity/volume] in Serum or PlasmaOrdered By: Neto Arauz on 12-13-2022 ALT [Catalytic activity/Vol] 17 U/L 7-52 [facility] Albumin [Mass/volume] in Ser um or Plasma by Bromocresol green (BCG) dye binding methoOrdered By: Neto Arauz on 12-13-2022 Albumin BCG dye [Mass/Vol] 4.3 g/dL 3.5-5.7 [facility] Alkaline phosphatase [Enzyma tic activity/volume] in Serum or PlasmaOrdered By: Neto Arauz on 12-13-2022 ALP [Catalytic activity/Vol] 111 U/L 34-104 [facility] Aspartate aminotransferase [ Enzymatic activity/volume] in Serum or PlasmaOrdered By: Neto Arauz on 12-13-2022 AST [Catalytic activity/Vol] 19 U/L 13-39 [facility] Basophils Auto (Bld) [#/Vol] Ordered By: Neto Arauz on 12-13-2022 Basophils (Bld) [#/Vol] 0.1 10*3/uL 0.0-0.2 [facility] Basophils/100 WBC Auto (Bld) Ordered By: Neto Arauz on 12-13-2022 Basophils/100 WBC (Bld) 0.9 % . [facility] Bilirubin.total [Mass/volume ] in Serum or PlasmaOrdered By: Neto Arauz on 12-13-2022 Bilirubin [Mass/Vol] 0.5 mg/dL 0.3-1.0 [facility] Calcium [Mass/volume] in Ser um or PlasmaOrdered By: Neto Arauz on 12-13-2022 Calcium [Mass/Vol] 9.7 mg/dL 8.6-10.3 [facility] Carbon dioxide, total [Moles /volume] in Serum or PlasmaOrdered By: Neto Arauz on 12-13-2022 CO2 [Moles/Vol] 39.7 mmol/L 21.0-31.0 [facility] Chloride [Moles/volume] in S cait or PlasmaOrdered By: Neto Arauz on 12-13-2022 Chloride [Moles/Vol] 99 mmol/L 98-107 [facility] Cholesterol [Mass/volume] in Serum or PlasmaOrdered By: Neto Arauz on 12-13-2022 Cholesterol [Mass/Vol] 139 mg/dL 140-200 [facility] Comment on above: Chol less than 200 m g/dl low riskChol 201-239 mg/dl borderline riskChol 240 mg/dl and greater high risk Cholesterol in LDL Calc [Mas s/Vol]Ordered By: Neto Arauz on 12-13-2022 Cholesterol in LDL [Mass/Vol] 62 mg/dL 0-100 [facility] Comment on above: LDL ATP III CLASSIFI CATIONLDL less than 100 mg/dL OptimalLDL 100-129 mg/dL Near or above optimalLDL 130-159 mg/dL Borderline highLDL 160-189 mg/dL HighLDL greater than 189 mg/dL Very high Cholesterol in VLDL Calc [Ma ss/Vol]Ordered By: Neto Arauz on 12-13-2022 Cholesterol in VLDL [Mass/Vol] 14 mg/dL [facility] Creatinine [Mass/volume] in Serum or PlasmaOrdered By: Neto Arauz on 12-13-2022 Creatinine [Mass/Vol] 1.25 mg/dL 0.60-1.20 [facility] Eosinophils Auto (Bld) [#/Vo l]Ordered By: Neto Arauz on 12-13-2022 Eosinophils (Bld) [#/Vol] 0.1 10*3/uL 0.0-0.45 [facility] Eosinophils/100 WBC Auto (Bl d)Ordered By: Neto Arauz on 12-13-2022 Eosinophils/100 WBC (Bld) 1.4 % . [facility] Erythrocyte distribution wid th Auto (RBC) [Ratio]Ordered By: Neto Arauz on 12-13-2022 Erythrocyte distribution width (RBC) [Ratio] 14.4 % 11.9-15.3 [facility] Globulin Calc (S) [Mass/Vol] Ordered By: Neto Arauz on 12-13-2022 Globulin (S) [Mass/Vol] 2.6 g/dL [facility] Glucose [Mass/volume] in Ser um or PlasmaOrdered By: Neto Arauz on 12-13-2022 Glucose [Mass/Vol] 86 mg/dL 70-100 [facility] Comment on above: ADA recommended refe rence rangeRandom Glucose Reference Range is dependent on time and content of last meal. Glucose of more than 200 mg/dL in a nonstressed, ambulatory subject supports the diagnosis of Diabetes Mellitus. Glucose mean value [Mass/vol ume] in Blood Estimated from glycated hemoglobinOrdered By: Neto Arauz on 12-13-2022 Average glucose Estimated from glycated hemoglobin (Bld) [Mass/Vol] 111 mg/dL [facility] Hematocrit Auto (Bld) [Volum e fraction]Ordered By: Neto Arauz on 12-13-2022 Hematocrit (Bld) [Volume fraction] 46.1 % 34.0-46.4 [facility] Hemoglobin A1c percentageOrd ered By: Neto Arauz on 12-13-2022 HbA1c (Bld) [Mass fraction] 5.5 % 4.3-5.6 [facility] Comment on above: Increased risk for d iabetes: 5.7 - 6.4diabetes: >6.4glycemic control for adults with diabetes: <7.0 Hemoglobin [Mass/volume] in BloodOrdered By: Neto Arauz on 12-13-2022 Hemoglobin (Bld) [Mass/Vol] 14.9 g/dL 11.8-15.4 [facility] Leukocytes [#/volume] correc hugh for nucleated erythrocytes in Blood by Automated counOrdered By: Neto Arauz on 12-13-2022 WBC corrected for nucl RBC Auto (Bld) [#/Vol] 7.4 10*3/uL 3.8-11.6 [facility] Lymphocytes Auto (Bld) [#/Vo l]Ordered By: Neto Arauz on 12-13-2022 Lymphocytes (Bld) [#/Vol] 1.5 10*3/uL 1.00-4.8 [facility] Lymphocytes/100 WBC Auto (Bl d)Ordered By: Neto Arauz on 12-13-2022 Lymphocytes/100 WBC (Bld) 20.6 % . [facility] MCH Auto (RBC) [Entitic mass ]Ordered By: Neto Arauz on 12-13-2022 MCH (RBC) [Entitic mass] 29.6 pg 24.7-34.3 [facility] MCHC Auto (RBC) [Mass/Vol]Or dered By: Neto Arauz on 12-13-2022 MCHC (RBC) [Mass/Vol] 32.4 g/dL 32.0-35.0 [facility] MCV Auto (RBC) [Entitic vol] Ordered By: Neto Arauz on 12-13-2022 MCV (RBC) [Entitic vol] 91.3 fL 80-100 [facility] Monocytes Auto (Bld) [#/Vol] Ordered By: Neto Arauz on 12-13-2022 Monocytes (Bld) [#/Vol] 0.5 10*3/uL 0.0-0.8 [facility] Monocytes/100 WBC Auto (Bld) Ordered By: Neto Arauz on 12-13-2022 Monocytes/100 WBC (Bld) 6.2 % . [facility] Neutrophils Auto (Bld) [#/Vo l]Ordered By: Neto Arauz on 12-13-2022 Neutrophils (Bld) [#/Vol] 5.2 10*3/uL 1.8-7.7 [facility] Neutrophils/100 WBC Auto (Bl d)Ordered By: Neto Arauz on 12-13-2022 Neutrophils/100 WBC (Bld) 70.9 % . [facility] No Panel InformationOrdered By: Neto Arauz on 12-13-2022 Estimated GFR (CKD-EPI) 46.657 mL/Min [facility] Creatinine Clearance (Chem N/A [facility] Nucleated erythrocytes [Pres ence] in Blood by Automated countOrdered By: Neto Arauz on 12-13-2022 Nucleated RBC Auto Ql (Bld) 0.1 /100{WBC} 0-0.5 [facility] Platelet mean volume Auto (B ld) [Entitic vol]Ordered By: Neto Arauz on 12-13-2022 Platelet mean volume (Bld) [Entitic vol] 9.7 fL 6.3-10.7 [facility] Platelets Auto (Bld) [#/Vol] Ordered By: Neto Arauz on 12-13-2022 Platelets (Bld) [#/Vol] 193 10*3/uL 150-450 [facility] Potassium [Moles/volume] in Serum or PlasmaOrdered By: Neto Arauz on 12-13-2022 Potassium [Moles/Vol] 4.3 mmol/L 3.5-5.1 [facility] Protein [Mass/volume] in Ser um or PlasmaOrdered By: Neto Arauz on 12-13-2022 Protein [Mass/Vol] 6.9 g/dL 6.4-8.9 [facility] RBC Auto (Bld) [#/Vol]Ordere d By: Neto Arauz on 12-13-2022 RBC (Bld) [#/Vol] 5.05 10*6/uL 3.60-5.00 [facility] Serum or plasma albumin/glob ulin mass ratioOrdered By: Neto Arauz on 12-13-2022 Albumin/Globulin [Mass ratio] 1.7 {ratio} [facility] Serum or plasma anion gap de terminationOrdered By: Neto Arauz on 12-13-2022 Anion gap [Moles/Vol] 8.6 mmol/L 6.0-15.0 [facility] Serum or plasma high density lipoprotein (HDL) cholesterol measurementOrdered By: Neto Arauz on 12-13-2022 Cholesterol in HDL [Mass/Vol] 62 mg/dL 23-92 [facility] Comment on above: HDL CHOL ATP-III CLA SSIFICATION Cardiovascular RiskHDL > or equal to 60 mg/dL LOWHDL < 40 mg/dL HIGH Serum or plasma total choles terol/high density lipoprotein (HDL) cholesterol mass ratOrdered By: Neto Arauz on 12-13-2022 Cholesterol.total/Chol esterol in HDL [Mass ratio] 2.2 {ratio} <5.0 [facility] Sodium [Moles/volume] in Ser um or PlasmaOrdered By: Neto Arauz on 12-13-2022 Sodium [Moles/Vol] 143 mmol/L 136-145 [facility] Thyrotropin [Units/volume] i n Serum or PlasmaOrdered By: Neto Arauz on 12-13-2022 TSH Qn 0.12 m[IU]/L 0.45-5.33 [facility] Triglyceride [Mass/volume] i n Serum or PlasmaOrdered By: Neto Arauz on 12-13-2022 Triglyceride [Mass/Vol] 74 mg/dL 0-149 [facility] Comment on above: TRIG ATP III CLASSIF ICATIONTRIG less than 150 mg/dL NormalTRIG 150-199 mg/dL Borderline highTRIG 200-500 mg/dL High TRIG greater than 500 mg/dL Very highStandard traceable to the Center for Disease Conrtrol and Prevention (CDC) test method. Urea nitrogen [Mass/volume] in Serum or PlasmaOrdered By: Neto Arauz on 12-13-2022 Urea nitrogen [Mass/Vol] 26 mg/dL 09-28 [facility] WBC Auto (Bld) [#/Vol]Ordere d By: Neto Arauz on 12-13-2022 WBC (Bld) [#/Vol] 7.4 10*3/uL 3.8-11.6 [facility] Alanine aminotransferase [En zymatic activity/volume] in Serum or PlasmaOrdered By: Que Cam on 09-02-2022 ALT [Catalytic activity/Vol] 12 U/L [facility] Albumin [Mass/volume] in Ser um or Plasma by Bromocresol green (BCG) dye binding methoOrdered By: Que Cam on 09-02-2022 Albumin BCG dye [Mass/Vol] 4.2 g/dL 3.5-5.7 [facility] Alkaline phosphatase [Enzyma tic activity/volume] in Serum or PlasmaOrdered By: Que Cam on 09-02-2022 ALP [Catalytic activity/Vol] 100 U/L 34-104 [facility] Aspartate aminotransferase [ Enzymatic activity/volume] in Serum or PlasmaOrdered By: Que Cam on 09-02-2022 AST [Catalytic activity/Vol] 18 U/L 13-39 [facility] Basophils Auto (Bld) [#/Vol] Ordered By: Que Cam on 09-02-2022 Basophils (Bld) [#/Vol] 0.1 10*3/uL 0.0-0.2 [facility] Basophils/100 WBC Auto (Bld) Ordered By: Que Cam on 09-02-2022 Basophils/100 WBC (Bld) 1.5 % . [facility] Bilirubin.total [Mass/volume ] in Serum or PlasmaOrdered By: Que Cam on 09-02-2022 Bilirubin [Mass/Vol] 0.7 mg/dL 0.3-1.0 [facility] Calcium [Mass/volume] in Ser um or PlasmaOrdered By: Que Cam on 09-02-2022 Calcium [Mass/Vol] 9.1 mg/dL 8.6-10.3 [facility] Carbon dioxide, total [Moles /volume] in Serum or PlasmaOrdered By: Que Cam on 09-02-2022 CO2 [Moles/Vol] 31.2 mmol/L 21.0-31.0 [facility] Chloride [Moles/volume] in S cait or PlasmaOrdered By: Que Cam on 09-02-2022 Chloride [Moles/Vol] 96 mmol/L 98-107 [facility] Creatinine [Mass/volume] in Serum or PlasmaOrdered By: Que Cam on 09-02-2022 Creatinine [Mass/Vol] 1.01 mg/dL 0.60-1.20 [facility] Eosinophils Auto (Bld) [#/Vo l]Ordered By: Que Cam on 09-02-2022 Eosinophils (Bld) [#/Vol] 0.1 10*3/uL 0.0-0.45 [facility] Eosinophils/100 WBC Auto (Bl d)Ordered By: Que Cam on 09-02-2022 Eosinophils/100 WBC (Bld) 1.8 % . [facility] Erythrocyte distribution wid th Auto (RBC) [Ratio]Ordered By: Que Cam on 09-02-2022 Erythrocyte distribution width (RBC) [Ratio] 13.7 % 11.9-15.3 [facility] Ethanol [Mass/volume] in Ser um or PlasmaOrdered By: Que Cam on 09-02-2022 Ethanol [Mass/Vol] mg/dL [facility] Ethanol [Mass/Vol] TNP [facility] Comment on above: Test not performed Globulin Calc (S) [Mass/Vol] Ordered By: Que Cam on 09-02-2022 Globulin (S) [Mass/Vol] 3.0 g/dL [facility] Glucose [Mass/volume] in Ser um or PlasmaOrdered By: Que Cam on 09-02-2022 Glucose [Mass/Vol] 86 mg/dL 70-100 [facility] Comment on above: ADA recommended refe rence rangeRandom Glucose Reference Range is dependent on time and content of last meal. Glucose of more than 200 mg/dL in a nonstressed, ambulatory subject supports the diagnosis of Diabetes Mellitus. Hematocrit Auto (Bld) [Volum e fraction]Ordered By: Que Cam on 09-02-2022 Hematocrit (Bld) [Volume fraction] 41.7 % 34.0-46.4 [facility] Hemoglobin [Mass/volume] in BloodOrdered By: Que Cam on 09-02-2022 Hemoglobin (Bld) [Mass/Vol] 13.9 g/dL 11.8-15.4 [facility] Leukocytes [#/volume] correc hugh for nucleated erythrocytes in Blood by Automated counOrdered By: Que Cam on 09-02-2022 WBC corrected for nucl RBC Auto (Bld) [#/Vol] 7.5 10*3/uL 3.8-11.6 [facility] Lymphocytes Auto (Bld) [#/Vo l]Ordered By: Que Cam on 09-02-2022 Lymphocytes (Bld) [#/Vol] 1.8 10*3/uL 1.00-4.8 [facility] Lymphocytes/100 WBC Auto (Bl d)Ordered By: Que Cam on 09-02-2022 Lymphocytes/100 WBC (Bld) 24.6 % . [facility] MCH Auto (RBC) [Entitic mass ]Ordered By: Que Cam on 09-02-2022 MCH (RBC) [Entitic mass] 29.9 pg 24.7-34.3 [facility] MCHC Auto (RBC) [Mass/Vol]Or dered By: Que Cam on 09-02-2022 MCHC (RBC) [Mass/Vol] 33.2 g/dL 32.0-35.0 [facility] MCV Auto (RBC) [Entitic vol] Ordered By: uQe Cam on 09-02-2022 MCV (RBC) [Entitic vol] 90.2 fL 80-100 [facility] Monocyte distribution width [Entitic volume] in Blood by AutomatedOrdered By: Que Cam on 09-02-2022 Monocyte distribution width Auto (Bld) [Entitic vol] 18.71 % 0.00-20.00 [facility] Monocytes Auto (Bld) [#/Vol] Ordered By: Que Cam on 09-02-2022 Monocytes (Bld) [#/Vol] 0.7 10*3/uL 0.0-0.8 [facility] Monocytes/100 WBC Auto (Bld) Ordered By: Que Cam on 09-02-2022 Monocytes/100 WBC (Bld) 8.7 % . [facility] Neutrophils Auto (Bld) [#/Vo l]Ordered By: Que Cam on 09-02-2022 Neutrophils (Bld) [#/Vol] 4.7 10*3/uL 1.8-7.7 [facility] Neutrophils/100 WBC Auto (Bl d)Ordered By: Que Cam on 09-02-2022 Neutrophils/100 WBC (Bld) 63.4 % . [facility] No Panel InformationOrdered By: Que Cam on 09-02-2022 Estimated GFR (CKD-EPI) > 60.0 mL/Min [facility] Creatinine Clearance (Chem 45.40 [facility] Nucleated erythrocytes [Pres ence] in Blood by Automated countOrdered By: Que Cam on 09-02-2022 Nucleated RBC Auto Ql (Bld) 0.1 /100{WBC} 0-0.5 [facility] Platelet mean volume Auto (B ld) [Entitic vol]Ordered By: Que Cam on 09-02-2022 Platelet mean volume (Bld) [Entitic vol] 7.9 fL 6.3-10.7 [facility] Platelets Auto (Bld) [#/Vol] Ordered By: Que Cam on 09-02-2022 Platelets (Bld) [#/Vol] 252 10*3/uL 150-450 [facility] Potassium [Moles/volume] in Serum or PlasmaOrdered By: Que Cam on 09-02-2022 Potassium [Moles/Vol] 3.8 mmol/L 3.5-5.1 [facility] Protein [Mass/volume] in Ser um or PlasmaOrdered By: Que Cam on 09-02-2022 Protein [Mass/Vol] 7.2 g/dL 6.4-8.9 [facility] RBC Auto (Bld) [#/Vol]Ordere d By: Que Cam on 09-02-2022 RBC (Bld) [#/Vol] 4.63 10*6/uL 3.60-5.00 [facility] Serum or plasma albumin/glob ulin mass ratioOrdered By: Que Cam on 09-02-2022 Albumin/Globulin [Mass ratio] 1.4 {ratio} [facility] Serum or plasma anion gap de terminationOrdered By: Que Cam on 09-02-2022 Anion gap [Moles/Vol] TNP [facility] Comment on above: Test not performed Sodium [Moles/volume] in Ser um or PlasmaOrdered By: Que Cam on 09-02-2022 Sodium [Moles/Vol] 137 mmol/L 136-145 [facility] Urea nitrogen [Mass/volume] in Serum or PlasmaOrdered By: Que Cam on 09-02-2022 Urea nitrogen [Mass/Vol] 13 mg/dL 7-25 [facility] WBC Auto (Bld) [#/Vol]Ordere d By: Que Cam on 09-02-2022 WBC (Bld) [#/Vol] 7.5 10*3/uL 3.8-11.6 [facility] COVID-19 SOFIAOrdered By: Gm Norris on 08-29-2022 SARS-CoV+SARS-CoV-2 (COVID-19) Ag IA.rapid Ql (Resp) Negative Negative [facility] Comment on above: This is a duplicate Diya SARS Antigen ([facility]ONT) result to be used for statistical tracking purpose only. Creatine kinase [Enzymatic a ctivity/volume] in Serum or PlasmaOrdered By: Lucian Bruno on 08-29-2022 CK [Catalytic activity/Vol] 73 U/L 30 [facility] - Microbiology an d Antimicrobial susceptibilityon 08-29-2022 SARS-CoV-2 (COVID-19) RNA MITCHELL+probe Ql (Unsp spec) [facility] [facility] [address] DO Work Phone: No Panel InformationOrdered By: Ferdinand Norris on 08-29-2022 SARS Antigen (LFIA) [facility] Troponin I.cardiac [Mass/vol ume] in Serum or Plasma by Detection limit <= 0.01 ng/Ordered By: Lucian Bruno on 08-29-2022 Troponin I.cardiac DL <= 0.01 ng/mL [Mass/Vol] 30.8 pg/mL 0.0-15.0 [facility] Alanine aminotransferase [En zymatic activity/volume] in Serum or PlasmaOrdered By: Niranjan Hi on 08-28-2022 ALT [Catalytic activity/Vol] 10 U/L 7-52 [facility] Albumin [Mass/volume] in Ser um or Plasma by Bromocresol green (BCG) dye binding methoOrdered By: Niranjan Hi on 08-28-2022 Albumin BCG dye [Mass/Vol] 4.2 g/dL 3.5-5.7 [facility] Alkaline phosphatase [Enzyma tic activity/volume] in Serum or PlasmaOrdered By: Niranjan Hi on 08-28-2022 ALP [Catalytic activity/Vol] 104 U/L 34-104 [facility] Aspartate aminotransferase [ Enzymatic activity/volume] in Serum or PlasmaOrdered By: Niranjan Hi on 08-28-2022 AST [Catalytic activity/Vol] 15 U/L 13-39 [facility] Basophils Auto (Bld) [#/Vol] Ordered By: Niranjan Hi on 08-28-2022 Basophils (Bld) [#/Vol] 0.1 10*3/uL 0.0-0.2 [facility] Basophils/100 WBC Auto (Bld) Ordered By: Niranjan Hi on 08-28-2022 Basophils/100 WBC (Bld) 0.6 % . [facility] Bilirubin.direct [Mass/volum e] in Serum or PlasmaOrdered By: Niranjan Hi on 08-28-2022 Bilirubin.direct [Mass/Vol] 0.10 mg/dL 0.03-0.18 [facility] Bilirubin.total [Mass/volume ] in Serum or PlasmaOrdered By: Niranjan Hi on 08-28-2022 Bilirubin [Mass/Vol] 0.6 mg/dL 0.3-1.0 [facility] Calcium [Mass/volume] in Ser um or PlasmaOrdered By: Niranjan Hi on 08-28-2022 Calcium [Mass/Vol] 9.1 mg/dL 8.6-10.3 [facility] Carbon dioxide, total [Moles /volume] in Serum or PlasmaOrdered By: Niranjan Hi on 08-28-2022 CO2 [Moles/Vol] 35.9 mmol/L 21.0-31.0 [facility] Chloride [Moles/volume] in S cait or PlasmaOrdered By: Niranjan Hi on 08-28-2022 Chloride [Moles/Vol] 98 mmol/L 98-107 [facility] Creatine kinase [Enzymatic a ctivity/volume] in Serum or PlasmaOrdered By: Niranjan Hi on 08-28-2022 CK [Catalytic activity/Vol] 89 U/L 30-223 [facility] Creatinine [Mass/volume] in Serum or PlasmaOrdered By: Niranjan Hi on 08-28-2022 Creatinine [Mass/Vol] 1.00 mg/dL 0.60-1.20 [facility] Eosinophils Auto (Bld) [#/Vo l]Ordered By: Niranjan Hi on 08-28-2022 Eosinophils (Bld) [#/Vol] 0.0 10*3/uL 0.0-0.45 [facility] Eosinophils/100 WBC Auto (Bl d)Ordered By: Niranjan Hi on 08-28-2022 Eosinophils/100 WBC (Bld) 0.3 % . [facility] Erythrocyte distribution wid th Auto (RBC) [Ratio]Ordered By: Niranjan Hi on 08-28-2022 Erythrocyte distribution width (RBC) [Ratio] 14.0 % 11.9-15.3 [facility] Globulin Calc (S) [Mass/Vol] Ordered By: Niranjan Hi on 08-28-2022 Globulin (S) [Mass/Vol] 3.0 g/dL [facility] Glucose [Mass/volume] in Ser um or PlasmaOrdered By: Niranjan Hi on 08-28-2022 Glucose [Mass/Vol] 93 mg/dL 70-100 [facility] Comment on above: ADA recommended refe rence rangeRandom Glucose Reference Range is dependent on time and content of last meal. Glucose of more than 200 mg/dL in a nonstressed, ambulatory subject supports the diagnosis of Diabetes Mellitus. Hematocrit Auto (Bld) [Volum e fraction]Ordered By: Niranjan Hi on 08-28-2022 Hematocrit (Bld) [Volume fraction] 43.1 % 34.0-46.4 [facility] Hemoglobin [Mass/volume] in BloodOrdered By: Niranjan Hi on 08-28-2022 Hemoglobin (Bld) [Mass/Vol] 14.1 g/dL 11.8-15.4 [facility] Leukocytes [#/volume] correc hugh for nucleated erythrocytes in Blood by Automated counOrdered By: Niranjan Hi on 08-28-2022 WBC corrected for nucl RBC Auto (Bld) [#/Vol] 8.2 10*3/uL 3.8-11.6 [facility] Lipase [Enzymatic activity/v olume] in Serum or PlasmaOrdered By: Niranjan Hi on 08-28-2022 Lipase [Catalytic activity/Vol] 59.0 U/L 11.0-82.0 [facility] Lymphocytes Auto (Bld) [#/Vo l]Ordered By: Niranjan Hi on 08-28-2022 Lymphocytes (Bld) [#/Vol] 1.1 10*3/uL 1.00-4.8 [facility] Lymphocytes/100 WBC Auto (Bl d)Ordered By: Niranjan Hi on 08-28-2022 Lymphocytes/100 WBC (Bld) 13.8 % . [facility] MCH Auto (RBC) [Entitic mass ]Ordered By: Niranjan Hi on 08-28-2022 MCH (RBC) [Entitic mass] 29.9 pg 24.7-34.3 [facility] MCHC Auto (RBC) [Mass/Vol]Or dered By: Niranjan Hi on 08-28-2022 MCHC (RBC) [Mass/Vol] 32.8 g/dL 32.0-35.0 [facility] MCV Auto (RBC) [Entitic vol] Ordered By: Niranjan Hi on 08-28-2022 MCV (RBC) [Entitic vol] 91.3 fL 80-100 [facility] Monocyte distribution width [Entitic volume] in Blood by AutomatedOrdered By: Niranjan Hi on 08-28-2022 Monocyte distribution width Auto (Bld) [Entitic vol] 15.82 % 0.00-20.00 [facility] Monocytes Auto (Bld) [#/Vol] Ordered By: Niranjan Hi on 08-28-2022 Monocytes (Bld) [#/Vol] 0.6 10*3/uL 0.0-0.8 [facility] Monocytes/100 WBC Auto (Bld) Ordered By: Niranjan Hi on 08-28-2022 Monocytes/100 WBC (Bld) 7.2 % . [facility] Neutrophils Auto (Bld) [#/Vo l]Ordered By: Niranjan Hi on 08-28-2022 Neutrophils (Bld) [#/Vol] 6.4 10*3/uL 1.8-7.7 [facility] Neutrophils/100 WBC Auto (Bl d)Ordered By: Niranjan Hi on 08-28-2022 Neutrophils/100 WBC (Bld) 78.1 % . [facility] No Panel InformationOrdered By: Niranjan Hi on 08-28-2022 Estimated GFR (CKD-EPI) > 60.0 mL/Min [facility] Creatinine Clearance (Chem 45.85 [facility] Nucleated erythrocytes [Pres ence] in Blood by Automated countOrdered By: Niranjan Hi on 08-28-2022 Nucleated RBC Auto Ql (Bld) 0.1 /100{WBC} 0-0.5 [facility] Platelet mean volume Auto (B ld) [Entitic vol]Ordered By: Niranjan Hi on 08-28-2022 Platelet mean volume (Bld) [Entitic vol] 8.5 fL 6.3-10.7 [facility] Platelets Auto (Bld) [#/Vol] Ordered By: Niranjan Hi on 08-28-2022 Platelets (Bld) [#/Vol] 238 10*3/uL 150-450 [facility] Potassium [Moles/volume] in Serum or PlasmaOrdered By: Niranjan Hi on 08-28-2022 Potassium [Moles/Vol] 3.3 mmol/L 3.5-5.1 [facility] Protein [Mass/volume] in Ser um or PlasmaOrdered By: Niranjan Hi on 08-28-2022 Protein [Mass/Vol] 7.2 g/dL 6.4-8.9 [facility] RBC Auto (Bld) [#/Vol]Ordere d By: Niranjan Hi on 08-28-2022 RBC (Bld) [#/Vol] 4.72 10*6/uL 3.60-5.00 [facility] Serum or plasma albumin/glob ulin mass ratioOrdered By: Niranjan Hi on 08-28-2022 Albumin/Globulin [Mass ratio] 1.4 {ratio} [facility] Serum or plasma anion gap de terminationOrdered By: Niranjan Hi on 08-28-2022 Anion gap [Moles/Vol] 12.4 mmol/L 6.0-15.0 [facility] Serum or plasma non-glucuron idated bilirubin measurement (mass/volume)Ordered By: Niranjan Hi on 08-28-2022 Bilirubin.indirect [Mass/Vol] 0.5 mg/dL [facility] Sodium [Moles/volume] in Ser um or PlasmaOrdered By: Niranjan Hi on 08-28-2022 Sodium [Moles/Vol] 143 mmol/L 136-145 [facility] Troponin I.cardiac [Mass/vol ume] in Serum or Plasma by Detection limit <= 0.01 ng/Ordered By: Niranjan Hi on 08-28-2022 Troponin I.cardiac DL <= 0.01 ng/mL [Mass/Vol] 33.3 pg/mL 0.0-15.0 [facility] Urea nitrogen [Mass/volume] in Serum or PlasmaOrdered By: Niranjan Hi on 08-28-2022 Urea nitrogen [Mass/Vol] 17 mg/dL 09-28 [facility] WBC Auto (Bld) [#/Vol]Ordere d By: Niranjan Hi on 08-28-2022 WBC (Bld) [#/Vol] 8.2 10*3/uL 3.8-11.6 [facility] A1C HEMOGLOBINon 06-29-2022 HbA1c (Bld) [Mass fraction] 5.0 % [facility] Other HbA1c (Bld) [Mass fraction]o n 06-29-2022 A1C HEMOGLOBIN [facility] Other A1C HEMOGLOBINon 03-04-2022 HbA1c (Bld) [Mass fraction] 4.9 % [facility] Other HbA1c (Bld) [Mass fraction]o n 03-04-2022 A1C HEMOGLOBIN [facility] Other A1C HEMOGLOBINon 09-17-2021 HbA1c (Bld) [Mass fraction] 5.1 % [facility] Other HbA1c (Bld) [Mass fraction]o n 09-17-2021 A1C HEMOGLOBIN [facility] Other CBC AUTO DIFFon 03-22-2021 BASO # 0.0 103/ul Normal 0.0-0.1 [facility] Comment on above: Performed By: #### C BC #### [facility] [address] [place] [address] Dr. Buddy Palmer Basophils/100 WBC (Bld) 0.5 % Normal 0.2-2.0 [facility] Comment on above: Performed By: #### C BC #### [facility] [address] [place] [address] Dr. Buddy Palmer EO # 0.1 103/ul Normal 0.0-0.7 [facility] Comment on above: Performed By: #### C BC #### [facility] [address] [place] [address] Dr. Buddy Palmer Eosinophils/100 WBC (Bld) 1.3 % Normal 0.9-7.0 [facility] Comment on above: Performed By: #### C BC #### [facility] [address] [place] [address] Dr. Buddy Palmer Erythrocyte distribution width (RBC) [Ratio] 13.6 % Normal 11.0-15.0 [facility] Comment on above: Performed By: #### C BC #### [facility] [address] [place] [address] Dr. Buddy Palmer Hematocrit (Bld) [Volume fraction] 46.4 % Normal 36.0-48.0 [facility] Comment on above: Performed By: #### C BC #### [facility] [address] [place] [address] Dr. Buddy Palmer Hemoglobin (Bld) [Mass/Vol] 15.1 g/dL Normal 12.0-16.0 [facility] Comment on above: Performed By: #### C BC #### [facility] [address] [place] [address] Dr. Buddy Palmer IG # 0.02 10e3/ul Normal 0.00-0.03 [facility] Comment on above: Performed By: #### C BC #### [facility] [address] [place] [address] Dr. Buddy Palmer IG % 0.3 % Normal 0.0-0.5 [facility] Comment on above: Performed By: #### C BC #### [facility] [address] [place] [address] Dr. Buddy Palmer LYMPH # 2.4 103/ul Normal 1.2-3.8 [facility] Comment on above: Performed By: #### C BC #### [facility] [address] [place] [address] Dr. Buddy Palmer Lymphocytes/100 WBC (Bld) 32.1 % Normal 20.5-60.0 [facility] Comment on above: Performed By: #### C BC #### [facility] [address] [place] [address] Dr. Buddy Palmer MANUAL DIFF REQ NO Normal [facility] Comment on above: Performed By: #### C BC #### [facility] [address] [place] [address] Dr. Buddy Palmer MCH (RBC) [Entitic mass] 30.2 pg Normal 26.7-34.0 [facility] Comment on above: Performed By: #### C BC #### [facility] [address] [place] [address] Dr. Buddy Palmer MCHC (RBC) [Mass/Vol] 32.5 g/dL Normal 29.9-35.2 [facility] Comment on above: Performed By: #### C BC #### [facility] [address] [place] [address] Dr. Buddy Palmer MCV (RBC) [Entitic vol] 92.8 fL Normal 81.0-99.0 [facility] Comment on above: Performed By: #### C BC #### [facility] [address] [place] [address] Dr. Buddy Palmer MONO # 0.5 103/ul Normal 0.3-0.8 [facility] Comment on above: Performed By: #### C BC #### [facility] [address] [place] [address] Dr. Buddy Palmer Monocytes/100 WBC (Bld) 6.1 % Normal 1.7-12.0 [facility] Comment on above: Performed By: #### C BC #### [facility] [address] [place] [address] Dr. Buddy Palmer NEUT # 4.5 103/ul Normal 1.4-6.5 [facility] Comment on above: Performed By: #### C BC #### [facility] [address] [place] [address] Dr. Buddy Palmer Neutrophils/100 WBC (Bld) 59.7 % Normal 43.0-75.0 [facility] Comment on above: Performed By: #### C BC #### [facility] [address] [address] [address] Buddy Palmer Platelet mean volume (Bld) [Entitic vol] 10.9 fL Normal 9.5-13.5 [facility] Comment on above: Performed By: #### C BC #### [facility] [address] [address] [address] Buddy Palmer PLT 207 103/ul Normal 150-450 [facility] Comment on above: Performed By: #### C BC #### [facility] [address] [address] [address] Buddy Palmer RBC 5.00 106/ul Normal 4.20-5.40 [facility] Comment on above: Performed By: #### C BC #### [facility] [address] [address] [address] Buddy Palmer WBC 7.6 103/ul Normal 4.0-11.0 [facility] Comment on above: Performed By: #### C BC #### [facility] [address] [place], [place] [id number] Dr. Buddy Palmer CT HEAD WO CONon 03-22-2021 CT HEAD WO CON CT HEAD WO CON: 03/21 11:26 PM EST CLINICAL HISTORY: 65 years old Female with HEADACHE. TECHNIQUE: CT HEAD WO CON was performed without intravenous contrast administration. Axial CT images are obtained as well as sagittal and coronal reformations. Dose reduction techniques were achieved by using automated exposure control and/or adjustment of mA and/or kV according to patient size and/or use of iterative reconstruction technique. COMPARISON: None available. FINDINGS: No intracranial hemorrhage or extra-axial fluid collection is identified. Mild cortical volume loss with prominence of the sulci, ventricles and basal cisterns is seen. Confluent hypoattenuation of the periventricular deep white matter and centrum semiovale is present most compatible with chronic small vessel ischemic disease. The pham-white matter differentiation is preserved. There is no evidence of focal mass or midline shift. No focal areas of increased attenuation are seen within the cerebral or cerebellar hemispheres. No appreciable scalp soft tissue swelling or depressed skull fractures are seen. The paranasal sinuses and mastoid air cells are normally aerated. IMPRESSION: 1. Mild cortical volume loss most prominent in the frontal distribution and chronic small vessel ischemic changes. 2. No intracranial hemorrhage, mass effect or midline shift. Electronically authenticated by: BUSTER RAMIREZ Date: 2021-03-22 00:19 Normal [facility] PROF 14(COMP METB)on 022 Albumin [Mass/Vol] 4.0 g/dL Normal 3.5-5.0 [facility] Comment on above: Performed By: #### C MP #### [facility] [address] [place] [address] Dr. Buddy Palmer Albumin/Globulin [Mass ratio] 1.0 {ratio} Normal [facility] Comment on above: Performed By: #### C MP #### [facility] [address] [place] [address] Dr. Buddy Palmer ALP [Catalytic activity/Vol] 131 U/L Critically high 38-126 [facility] Comment on above: Performed By: #### C MP #### [facility] [address] [place] [address] Dr. Buddy Palmer ALT [Catalytic activity/Vol] 22 U/L Normal 9-52 [facility] Comment on above: Performed By: #### C MP #### [facility] [address] [place] [address] Dr. Buddy Palmer Anion gap [Moles/Vol] 9.9 mmol/L Normal [facility] Comment on above: Performed By: #### C MP #### [facility] [address] [place] [address] Dr. Buddy Palmer AST [Catalytic activity/Vol] 26 U/L Normal 14-36 [facility] Comment on above: Performed By: #### C MP #### [facility] [address] [place] [address] Dr. Buddy Palmer Bilirubin [Mass/Vol] 0.4 mg/dL Normal 0.2-1.3 [facility] Comment on above: Performed By: #### C MP #### [facility] [address] [address] [address] Buddy Palmer Calcium [Mass/Vol] 9.6 mg/dL Normal 8.4-10.2 [facility] Comment on above: Performed By: #### C MP #### [facility] [address] [place] [address] Dr. Buddy Palmer Chloride [Moles/Vol] 96 mmol/L Critically low 98-107 [facility] Comment on above: Performed By: #### C MP #### [facility] [address] [address] [address] Buddy Palmer CO2 [Moles/Vol] 34.4 mmol/L Critically high 22.0-30.0 [facility] Comment on above: Performed By: #### C MP #### [facility] [address] [place] [address] Dr. Buddy Palmer Creatinine [Mass/Vol] 1.46 mg/dL Critically high 0.52-1.04 [facility] Comment on above: Performed By: #### C MP #### [facility] [address] [place] [address] Dr. Buddy Palmer EGFR-AF [place] 43 mL/min/1.73m2 Critically low >=60 [facility] Comment on above: Performed By: #### C MP #### [facility] [address] [place] [address] Dr. Buddy Palmer EGFR-NON AF [place] 36 mL/min/1.73m2 Critically low >=60 [facility] Comment on above: Performed By: #### C MP #### [facility] [address] [place] [address] Dr. Buddy Palmer Globulin (S) [Mass/Vol] 4.0 g/dL Normal [facility] Comment on above: Performed By: #### C MP #### [facility] [address] [place] [address] Dr. Buddy Palmer Glucose [Mass/Vol] 100 mg/dL Normal 74-106 [facility] Comment on above: Performed By: #### C MP #### [facility] [address] [place] [address] Dr. Buddy Palmer Potassium [Moles/Vol] 4.3 mmol/L Normal 3.4-5.0 [facility] Comment on above: Performed By: #### C MP #### [facility] [address] [place] [address] Dr. Buddy Palmer Protein [Mass/Vol] 8.0 g/dL Normal 6.1-8.2 [facility] Comment on above: Performed By: #### C MP #### [facility] [address] [address] [address] Buddy Palmer Sodium [Moles/Vol] 136 mmol/L Critically low 137-145 [facility] Comment on above: Performed By: #### C MP #### [facility] [address] [place] [address] Dr. Buddy Palmer Urea nitrogen [Mass/Vol] 31.0 mg/dL Critically high 7.0-17.0 [facility] Comment on above: Performed By: #### C MP #### [facility] [address] [place] [address] Dr. Buddy Palmer Urea nitrogen/Creatinine [Mass ratio] 21.2 mg/mg Normal [facility] Comment on above: Performed By: #### C MP #### [facility] [address] [place] [address] Dr. Buddy Palmer PROTIMEon 03-22-2021 INR Coag (PPP) [Relative time] 0.98 {INR} Normal [facility] Comment on above: Performed By: #### P T, PTT #### [facility] [address] [place] [address] Dr. Buddy Palmer INR GUIDELINES SEE BELOW Normal [facility] Comment on above: Result Comment: KEITH RED INR: 2.0 - 3.0 CONDITIONS NOT LISTED BELOW 2.5 - 3.5 FOR PROSTHETIC HEART VALVE REPLACEMENT 2.5 - 3.5 RECURRENT THROMBOSIS Performed By: #### P T, PTT #### [facility] [address] [place] [address] Dr. Buddy Palmer PT Coag (PPP) [Time] 10.6 s Normal 9.0-11.6 [facility] Comment on above: Performed By: #### P T, PTT #### [facility] [address] [id number] Buddy Palmer PTTon 03-22-2021 aPTT Coag (Bld) [Time] 28.8 s Normal 22.3-36.2 Th e [facility] Comment on above: Performed By: #### P T, PTT #### [facility] [address] [address] [address] Buddy Palmer A1C HEMOGLOBINon 01-15-2021 HbA1c (Bld) [Mass fraction] 5.1 % [employer] [facility] FAD ? [place] Other HbA1c (Bld) [Mass fraction]o n 01-15-2021 A1C HEMOGLOBIN [facility] FAD ? IO Other Vital Signs Date Time Vital Sign Value Performing Clinician Facility 03-28-2024 16:00-0500 Inhaled oxygen flow rate 5 L/min Neto Arauz DO Work Phone: [facility] 03-28-2024 15:50-0500 Body temperature 97.6 [degF] Neto Ruggieros DO Work Phone: [facility] 03-28-2024 15:50-0500 Diastolic blood pressure 59 mm[Hg] Neto Ruggieros DO Work Phone: [facility] 03-28-2024 15:50-0500 Heart rate 76 /min Neto Ruggieros DO Work Phone: [facility] 03-28-2024 15:50-0500 Respiratory rate 18 /min Neto Ruggieros DO Work Phone: [facility] 03-28-2024 15:50-0500 SaO2% (BldA) [Mass fraction] 98 % Neto Ruggieros DO Work Phone: [facility] 03-28-2024 15:50-0500 Systolic blood pressure 125 mm[Hg] Neto Ruggieros DO Work Phone: [facility] 03-28-2024 04:51-0500 Body weight 83.1 kg Netobayron Ruggieros DO Work Phone: [facility] 2024 14:43-0500 Body height 162.56 cm Neto Bahmans DO Work Phone: [facility] 03-24-2024 19:36-0500 Diastolic blood pressure 81 mm[Hg] Neto Bahmans DO Work Phone: [facility] 03-24-2024 19:36-0500 Heart rate 74 /min Netobayron Ruggieros DO Work Phone: [facility] 03-24-2024 19:36-0500 Inhaled oxygen flow rate 6 L/min Neto Ruggieros DO Work Phone: [facility] 03-24-2024 19:36-0500 Respiratory rate 20 /min Neto Ruggieros DO Work Phone: [facility] 03-24-2024 19:36-0500 SaO2% (BldA) [Mass fraction] 94 % Netobayron Ruggieros DO Work Phone: [facility] 03-24-2024 19:36-0500 Systolic blood pressure 167 mm[Hg] Neto Ruggieros DO Work Phone: [facility] 03-24-2024 16:13-0500 Body temperature 98.3 [degF] Netobayron Ruggieros DO Work Phone: [facility] 03-24-2024 13:46-0500 Body height 162.56 cm Netobayron Ruggieros DO Work Phone: [facility] 03-24-2024 13:46-0500 Body weight 85.3 kg Netobayron Ruggieros DO Work Phone: [facility] 03-22-2024 11:27-0500 Blood Pressure Location KAELYN ROY [facility] 03-22-2024 11:27-0500 Body temperature 98.6 [degF] KAELYN MANUELA [facility] 03-22-2024 11:27-0500 Diastolic blood pressure 77 mm[Hg] KAELYN MANUELA [facility] 03-22-2024 11:27-0500 Heart rate 70 /min KAELYN MANUELA [facility] 03-22-2024 11:27-0500 Respiratory rate 18 /min KAELYN MANUELA [facility] 03-22-2024 11:27-0500 Systolic blood pressure 125 mm[Hg] KAELYN MANUELA [facility] 03-18-2024 12:04-0500 Diastolic blood pressure 69 mm[Hg] Neto Arauz DO Work Phone: [facility] 03-18-2024 12:04-0500 Heart rate 67 /min Neto Ruggieros DO Work Phone: [facility] 03-18-2024 12:04-0500 Inhaled oxygen flow rate 4 L/min Neto Ruggieros DO Work Phone: [facility] 03-18-2024 12:04-0500 Respiratory rate 18 /min Neto Ruggieros DO Work Phone: [facility] 03-18-2024 12:04-0500 SaO2% (BldA) [Mass fraction] 95 % Neto Ruggieros DO Work Phone: [facility] 03-18-2024 12:04-0500 Systolic blood pressure 166 mm[Hg] Neto Ruggieros DO Work Phone: [facility] 03-18-2024 08:05-0500 Body temperature 98.2 [degF] Neto Ruggieros DO Work Phone: [facility] 03-18-2024 06:00-0500 Body weight 80.4 kg Neto Ruggieros DO Work Phone: [facility] 03-16-2024 00:31-0500 Body height 162.56 cm Neto Ruggieros DO Work Phone: [facility] 03-15-2024 23:31-0500 Diastolic blood pressure 102 mm[Hg] Neto Ruggieros DO Work Phone: [facility] 03-15-2024 23:31-0500 Heart rate 69 /min Neto Ruggieros DO Work Phone: [facility] 03-15-2024 23:31-0500 Inhaled oxygen flow rate 6 L/min Neto Ruggieros DO Work Phone: [facility] 03-15-2024 23:31-0500 Respiratory rate 28 /min Neto Ruggieros DO Work Phone: [facility] 03-15-2024 23:31-0500 SaO2% (BldA) [Mass fraction] 92 % Neto Ruggieros DO Work Phone: [facility] 03-15-2024 23:31-0500 Systolic blood pressure 145 mm[Hg] Netobayron Ruggieros DO Work Phone: [facility] 03-15-2024 16:57-0500 Body height 162.56 cm Neto Ruggieros DO Work Phone: [facility] 03-15-2024 16:57-0500 Body weight 77.11 kg Neto Ruggieros DO Work Phone: [facility] 03-15-2024 16:56-0500 Body temperature 98.1 [degF] Netobayron Ruggieros DO Work Phone: [facility] 03-04-2024 12:34-0500 Heart rate 71 /min Neto Arauz DO Work Phone: [facility] 03-04-2024 12:34-0500 Respiratory rate 20 /min Neto Arauz DO Work Phone: [facility] 03-04-2024 12:00-0500 Body temperature 98.1 [degF] Neto Arauz DO Work Phone: [facility] 03-04-2024 12:00-0500 Diastolic blood pressure 56 mm[Hg] Neto Arauz DO Work Phone: [facility] 03-04-2024 12:00-0500 Inhaled oxygen flow rate 5 L/min Neto Arauz DO Work Phone: [facility] 03-04-2024 12:00-0500 SaO2% (BldA) [Mass fraction] 97 % Neto Arauz DO Work Phone: [facility] 03-04-2024 12:00-0500 Systolic blood pressure 119 mm[Hg] Neto Arauz DO Work Phone: [facility] 03-04-2024 06:00-0500 Body weight 81.3 kg eNto Arauz DO Work Phone: [facility] 03-02-2024 01:12-0500 Inhaled oxygen concentration 35 % Neto Arauz DO Work Phone: [facility] 03-01-2024 15:08-0500 Body height 162.56 cm Neto Arauz DO Work Phone: [facility] 01-25-2024 11:16-0500 Body height 162.56 cm Sandor Mcduffie [facility] 01-25-2024 11:16-0500 Body mass index (BMI) [Ratio] 29.7 kg/m2 Sandor Mcduffie [facility] 01-25-2024 11:16-0500 Body weight 78.47 kg Sandor Mcduffie [facility] 01-25-2024 11:16-0500 Diastolic blood pressure 58 mm[Hg] Sandor Mcduffie [facility] 01-25-2024 11:16-0500 Heart rate 70 /min Sandor Mcduffie [facility] 01-25-2024 11:16-0500 Inhaled oxygen flow rate 6 L/min Sandor Mcduffie [facility] 01-25-2024 11:16-0500 SaO2% (BldA) [Mass fraction] 94 % Sandor Mcduffie [facility] 01-25-2024 11:16-0500 Systolic blood pressure 130 mm[Hg] Sandor Mcduffie [facility] 01-24-2024 10:42-0500 Body height 162.56 cm Sandor Mcduffie [facility] 01-24-2024 10:42-0500 Body mass index (BMI) [Ratio] 29.7 kg/m2 Sandor Mcduffie [facility] 01-24-2024 10:42-0500 Body temperature 97.6 [degF] Sandor Mcduffie [facility] 01-24-2024 10:42-0500 Body weight 78.47 kg Sandor Mcduffie [facility] 01-24-2024 10:42-0500 Diastolic blood pressure 67 mm[Hg] Sandor Mcduffie [facility] 01-24-2024 10:42-0500 Heart rate 68 /min Sandor Mcduffie [facility] 01-24-2024 10:42-0500 Inhaled oxygen flow rate 5 L/min Sandor Mcduffie [facility] 01-24-2024 10:42-0500 Respiratory rate 20 /min Sandor Mcduffie [facility] 01-24-2024 10:42-0500 SaO2% (BldA) [Mass fraction] 95 % Sandor Mcduffie [facility] 01-24-2024 10:42-0500 Systolic blood pressure 124 mm[Hg] Sandor Mcduffie [facility] 01-06-2024 14:11-0400 Body height 162.6 cm Ferdinand Galdamez DO Work Phone: [facility] 01-06-2024 [id number] Body mass index (BMI) [Ratio] 29.87 kg/m2 Ferdinand Galdamez DO Work Phone: [facility] 01-06-2024 [id number]:[id number] Body weight 78.93 kg Ferdinand Galdamez DO Work Phone: [facility] 01-06-2024 [id number] Diastolic blood pressure 74 mm[Hg] Ferdinand Galdamez DO Work Phone: [facility] 01-06-2024 [id number] Heart rate 68 /min Ferdinand Galdamez DO Work Phone: [facility] 01-06-2024 [id number] Systolic blood pressure 150 mm[Hg] Ferdinand Galdamez DO Work Phone: [facility] 11-24-2023 00:20-0400 Diastolic blood pressure 76 mm[Hg] DO Adánkalyn Arthur Work Phone: [facility] 11-24-2023 00:20-0400 Heart rate 62 /min DO Adánkalyn Arthur Work Phone: [facility] 11-24-2023 00:20-0400 Inhaled oxygen flow rate 4 L/min DO Adán Arthur Work Phone: [facility] 11-24-2023 00:20-0400 Respiratory rate 21 /min DO Adán Newtonring Work Phone: [facility] 11-24-2023 00:20-0400 SaO2% (BldA) [Mass fraction] 98 % DO Adán Arthur Work Phone: [facility] 11-24-2023 00:20-0400 Systolic blood pressure 158 mm[Hg] DO Adán Arthur Work Phone: [facility] 11-23-2023 19:20-0400 Body temperature 98.1 [degF] DO Adán Arthur Work Phone: [facility] 11-23-2023 19:10-0400 Body height 162.56 cm DO Adán Arthur Work Phone: [facility] 11-23-2023 19:10-0400 Body weight 78 kg DO Adán Arthur Work Phone: [facility] 11-21-2023 11:37-0400 Body temperature 97.8 [degF] DO Adán Arthur Work Phone: [facility] 11-21-2023 11:37-0400 Diastolic blood pressure 56 mm[Hg] DO Adán Arthur Work Phone: [facility] 11-21-2023 11:37-0400 Heart rate 64 /min DO Adán Arthur Work Phone: [facility] 11-21-2023 11:37-0400 Inhaled oxygen flow rate 4 L/min DO Adán Arthur Work Phone: [facility] 11-21-2023 11:37-0400 Respiratory rate 18 /min DO Adán Arthur Work Phone: [facility] 11-21-2023 11:37-0400 SaO2% (BldA) [Mass fraction] 95 % DO Adán Arthur Work Phone: [facility] 11-21-2023 11:37-0400 Systolic blood pressure 117 mm[Hg] DO Adán Arthur Work Phone: [facility] 11-21-2023 04:01-0400 Body weight 78.8 kg DO Adán Arthur Work Phone: [facility] 11-18-2023 15:34-0400 Body height 167.64 cm DO Adán Arthur Work Phone: [facility] 11-18-2023 15:00-0400 Diastolic blood pressure 58 mm[Hg] DO Adán Arthur Work Phone: [facility] 11-18-2023 15:00-0400 Heart rate 84 /min DO Adán Arthur Work Phone: [facility] 11-18-2023 15:00-0400 Respiratory rate 16 /min DO Adán Arthur Work Phone: [facility] 11-18-2023 15:00-0400 Systolic blood pressure 117 mm[Hg] DO Adán Arthur Work Phone: [facility] 11-18-2023 13:30-0400 Inhaled oxygen flow rate 4 L/min DO Adán Arhtur Work Phone: [facility] 11-18-2023 13:30-0400 SaO2% (BldA) [Mass fraction] 96 % DO Adán Arthur Work Phone: [facility] 11-18-2023 12:55-0400 Body temperature 98.9 [degF] DO Adán Arthur Work Phone: [facility] 11-18-2023 10:17-0400 Body height 167.64 cm DO Adán Newtonring Work Phone: [facility] 11-18-2023 10:17-0400 Body weight 77 kg DO Adán Newtonring Work Phone: [facility] 10-14-2023 10:32-0400 Body height 162.56 cm DO Neto Arauz Work Phone: [facility] 10-14-2023 10:32-0400 Body mass index (BMI) [Ratio] 27.6 kg/m2 DO Neot Bahmans Work Phone: [facility] 10-14-2023 10:32-0400 Body weight 73.02 kg DO Neto Bahmans Work Phone: [facility] 10-14-2023 10:32-0400 Diastolic blood pressure 60 mm[Hg] DO Neto Bahmans Work Phone: [facility] 10-14-2023 10:32-0400 Heart rate 61 /min DO Neto Arauz Work Phone: [facility] 10-14-2023 10:32-0400 Inhaled oxygen flow rate 4 L/min DO Neto Ruggieros Work Phone: [facility] 10-14-2023 10:32-0400 Respiratory rate 20 /min DO Neto Arauz Work Phone: [facility] 10-14-2023 10:32-0400 SaO2% (BldA) [Mass fraction] 98 % DO Neto Arauz Work Phone: [facility] 10-14-2023 10:32-0400 Systolic blood pressure 118 mm[Hg] DO Neto Arauz Work Phone: [facility] 10-11-2023 09:34-0400 Body height 162.56 cm DO Neto Arauz Work Phone: [facility] 10-11-2023 09:34-0400 Body mass index (BMI) [Ratio] 27.6 kg/m2 DO Neto Arauz Work Phone: [facility] 10-11-2023 09:34-0400 Body temperature 96.6 [degF] DO Neto Arauz Work Phone: [facility] 10-11-2023 09:34-0400 Body weight 73.02 kg DO Neto Arauz Work Phone: [facility] 10-11-2023 09:34-0400 Diastolic blood pressure 60 mm[Hg] DO Netobayron Ruggieros Work Phone: [facility] 10-11-2023 09:34-0400 Heart rate 64 /min DO Netobayron Ruggieros Work Phone: [facility] 10-11-2023 09:34-0400 Inhaled oxygen flow rate 4 L/min DO Netobayron Ruggieros Work Phone: [facility] 10-11-2023 09:34-0400 Respiratory rate 20 /min DO Neto Arauz Work Phone: [facility] 10-11-2023 09:34-0400 SaO2% (BldA) [Mass fraction] 98 % DO Neto Arauz Work Phone: [facility] 10-11-2023 09:34-0400 Systolic blood pressure 143 mm[Hg] DO Neto Arauz Work Phone: [facility] 08-22-2023 15:37-0400 Body height 162.6 cm Jessica Hi [employer] Work Phone: [facility] 08-22-2023 15:37-0400 Body mass index (BMI) [Ratio] 27.19 kg/m2 Jessica Hi [employer] SUPER[employer] Work Phone: [facility] 08-22-2023 15:37-0400 Body weight 71.85 kg Jessica Hi [employer] SUPERVISOR[employer] IN[employer] Work Phone: [facility] 08-22-2023 15:37-0400 Diastolic blood pressure 56 mm[Hg] Jessica Hi [employer] SUPERVISOR[employer] IN[employer] Work Phone: [facility] 08-22-2023 15:37-0400 Heart rate 60 /min Jessica Hi [employer] SUPERVISOR[employer] IN[employer] Work Phone: [facility] 08-22-2023 15:37-0400 Systolic blood pressure 106 mm[Hg] Jessica Hi [employer] SUPERVISOR[employer] IN[employer] Work Phone: [facility] 08-18-2023 13:45-0400 Body height 162.56 cm DO Neto Arauz Work Phone: [facility] 08-18-2023 13:45-0400 Body mass index (BMI) [Ratio] 27.1 kg/m2 DO Neto Arauz Work Phone: [facility] 08-18-2023 13:45-0400 Body temperature 97.4 [degF] DO Neto Kuns Work Phone: [facility] 08-18-2023 13:45-0400 Body weight 71.66 kg DO Neto Kuns Work Phone: [facility] 08-18-2023 13:45-0400 Diastolic blood pressure 65 mm[Hg] DO Neto Kuns Work Phone: [facility] 08-18-2023 13:45-0400 Heart rate 66 /min DO Neto Kuns Work Phone: [facility] 08-18-2023 13:45-0400 Inhaled oxygen flow rate 4 L/min DO Neto Kuns Work Phone: [facility] 08-18-2023 13:45-0400 Respiratory rate 20 /min DO Neto Bahmans Work Phone: [facility] 08-18-2023 13:45-0400 SaO2% (BldA) [Mass fraction] 96 % DO Neto Kuns Work Phone: [facility] 08-18-2023 13:45-0400 Systolic blood pressure 128 mm[Hg] DO Neto Kuns Work Phone: [facility] 08-11-2023 12:35-0400 Diastolic blood pressure 74 mm[Hg] DO Neto Bahmans Work Phone: [facility] 08-11-2023 12:35-0400 Heart rate 56 /min DO Neto Kuns Work Phone: [facility] 08-11-2023 12:35-0400 Inhaled oxygen flow rate 2 L/min DO Neto Kuns Work Phone: [facility] 08-11-2023 12:35-0400 Respiratory rate 21 /min DO Neto Kuns Work Phone: [facility] 08-11-2023 12:35-0400 SaO2% (BldA) [Mass fraction] 92 % DO Neto Arauz Work Phone: [facility] 08-11-2023 12:35-0400 Systolic blood pressure 148 mm[Hg] DO Neto Arauz Work Phone: [facility] 08-11-2023 08:13-0400 Body temperature 97.6 [degF] DO Neto Arauz Work Phone: [facility] 08-11-2023 06:00-0400 Body weight 75.7 kg DO Neto Arauz Work Phone: [facility] 08-08-2023 20:00-0400 Inhaled oxygen concentration 2 % DO Neto Arauz Work Phone: [facility] 08-08-2023 16:38-0400 Body height 162.56 cm DO Neto Arauz Work Phone: [facility] 07-30-2023 12:00-0400 Body temperature 97.7 [degF] DO Neto Arauz Work Phone: [facility] 07-30-2023 12:00-0400 Diastolic blood pressure 62 mm[Hg] DO Neto Arauz Work Phone: [facility] 07-30-2023 12:00-0400 Heart rate 60 /min DO Neto Arauz Work Phone: [facility] 07-30-2023 12:00-0400 Inhaled oxygen flow rate 3 L/min DO Neto Arauz Work Phone: [facility] 07-30-2023 12:00-0400 Respiratory rate 17 /min DO Neto Arauz Work Phone: [facility] 07-30-2023 12:00-0400 SaO2% (BldA) [Mass fraction] 94 % DO Neto Arauz Work Phone: [facility] 07-30-2023 12:00-0400 Systolic blood pressure 107 mm[Hg] DO Neto Arauz Work Phone: [facility] 07-30-2023 06:00-0400 Body weight 72.8 kg DO Neto Arauz Work Phone: [facility] 07-29-2023 12:17-0400 Inhaled oxygen concentration 45 % DO Neto Ruggieros Work Phone: [facility] 07-26-2023 16:17-0400 Body height 162.56 cm DO Neto Arauz Work Phone: [facility] 07-26-2023 03:44-0400 Body height 162.56 cm DO Neto Arauz Work Phone: [facility] 07-26-2023 03:44-0400 Body temperature 97.9 [degF] DO Neto Arauz Work Phone: [facility] 07-26-2023 03:44-0400 Body weight 68.8 kg DO Neto Arauz Work Phone: [facility] 07-26-2023 03:44-0400 Diastolic blood pressure 53 mm[Hg] DO Neto Arauz Work Phone: [facility] 07-26-2023 03:44-0400 Heart rate 54 /min DO Neto Arauz Work Phone: [facility] 07-26-2023 03:44-0400 Inhaled oxygen flow rate 5 L/min DO Neto Arauz Work Phone: [facility] 07-26-2023 03:44-0400 Respiratory rate 20 /min DO Neto Ruggieros Work Phone: [facility] 07-26-2023 03:44-0400 SaO2% (BldA) [Mass fraction] 97 % DO Neto Ruggieros Work Phone: [facility] 07-26-2023 03:44-0400 Systolic blood pressure 101 mm[Hg] DO Neto Arauz Work Phone: [facility] 03-03-2023 15:00-0500 Body height 162.56 cm Neto Arauz Other [employer] Other 03-03-2023 15:00-0500 Body mass index (BMI) [Ratio] 25.74 kg/m2 Neto Arauz Other [employer] Other 03-03-2023 15:00-0500 Body weight 68.04 kg Neto Arauz Other [employer] Other 03-03-2023 15:00-0500 Diastolic blood pressure 70 mm[Hg] Neto Arauz Other [employer] Other 03-03-2023 15:00-0500 Respiratory rate 16 /min Neto Arauz Other [employer] Other 03-03-2023 15:00-0500 SaO2% (BldA) [Mass fraction] 89 % Neto Arauz Other [employer] Other 03-03-2023 15:00-0500 Systolic blood pressure 116 mm[Hg] Neto Arauz Other [employer] Other 09-02-2022 20:00-0400 Diastolic blood pressure 67 mm[Hg] DO Neto Arauz Work Phone: [facility] 09-02-2022 20:00-0400 Heart rate 55 /min DO Neto Ruggieros Work Phone: [facility] 09-02-2022 20:00-0400 Inhaled oxygen flow rate 2 L/min DO Neto Arauz Work Phone: [facility] 09-02-2022 20:00-0400 SaO2% (BldA) [Mass fraction] 98 % DO Neto Kuns Work Phone: [facility] 09-02-2022 20:00-0400 Systolic blood pressure 150 mm[Hg] DO Neto Kuns Work Phone: [facility] 09-02-2022 19:00-0400 Respiratory rate 16 /min DO Neto Kuns Work Phone: [facility] 09-02-2022 16:21-0400 Body height 162.56 cm DO Neto Kuns Work Phone: [facility] 09-02-2022 16:21-0400 Body temperature 98 [degF] DO Neto Kuns Work Phone: [facility] 09-02-2022 16:21-0400 Body weight 64.86 kg DO Neto Kuns Work Phone: [facility] 08-30-2022 20:07-0400 Body temperature 97.7 [degF] DO Neto Kuns Work Phone: [facility] 08-30-2022 20:07-0400 Diastolic blood pressure 71 mm[Hg] DO Neto Kuns Work Phone: [facility] 08-30-2022 20:07-0400 Heart rate 57 /min DO Neto Kuns Work Phone: [facility] 08-30-2022 20:07-0400 Respiratory rate 20 /min DO Neto Kuns Work Phone: [facility] 08-30-2022 20:07-0400 SaO2% (BldA) [Mass fraction] 94 % DO Neto Kuns Work Phone: [facility] 08-30-2022 20:07-0400 Systolic blood pressure 117 mm[Hg] DO Neto Kuns Work Phone: [facility] 08-30-2022 19:55-0400 Inhaled oxygen flow rate 2 L/min DO Neto Bahmans Work Phone: [facility] 08-30-2022 05:12-0400 Body weight 65.9 kg DO Neto Kuns Work Phone: [facility] 08-28-2022 16:47-0400 Body height 162.56 cm DO Neto Kuns Work Phone: [facility] 08-28-2022 16:30-0400 Diastolic blood pressure 60 mm[Hg] DO Neto Kuns Work Phone: [facility] 08-28-2022 16:30-0400 Heart rate 58 /min DO Neto Kuns Work Phone: [facility] 08-28-2022 16:30-0400 Inhaled oxygen flow rate 2 L/min DO Neto Bahmans Work Phone: [facility] 08-28-2022 16:30-0400 Respiratory rate 20 /min DO Neto Bahmans Work Phone: [facility] 08-28-2022 16:30-0400 SaO2% (BldA) [Mass fraction] 99 % DO Neto Kuns Work Phone: [facility] 08-28-2022 16:30-0400 Systolic blood pressure 128 mm[Hg] DO Neto Kuns Work Phone: [facility] 08-28-2022 13:39-0400 Body temperature 97.6 [degF] DO Neto Kuns Work Phone: [facility] 08-28-2022 12:25-0400 Body height 162.56 cm DO Neto Kuns Work Phone: [facility] 08-28-2022 12:25-0400 Body weight 64.86 kg DO Neto Kuns Work Phone: [facility] 06-29-2022 15:15-0400 Body height 162.56 cm Neto Chela Other [employer] Other 06-29-2022 15:15-0400 Diastolic blood pressure 48 mm[Hg] Neto Arauz Other [employer] Other 06-29-2022 15:15-0400 Respiratory rate 20 /min Neto Arauz Other [employer] Other 06-29-2022 15:15-0400 SaO2% (BldA) [Mass fraction] 86 % Neto Arauz Other [employer] Other 06-29-2022 15:15-0400 Systolic blood pressure 108 mm[Hg] Neto Arauz Other [employer] Other 03-04-2022 15:45-0500 Body height 162.56 cm Neto Arauz Other [employer] Other 03-04-2022 15:45-0500 Body mass index (BMI) [Ratio] 24.71 kg/m2 Neto Arauz Other [employer] Other 03-04-2022 15:45-0500 Body weight 65.32 kg Neto Arauz Other [employer] Other 03-04-2022 15:45-0500 Diastolic blood pressure 56 mm[Hg] Neto Arauz Other [employer] Other 03-04-2022 15:45-0500 Respiratory rate 16 /min Neto Arauz Other [employer] Other 03-04-2022 15:45-0500 SaO2% (BldA) [Mass fraction] 91 % Neto Bahmanduyen Other [employer] Other 03-04-2022 15:45-0500 Systolic blood pressure 126 mm[Hg] Neto Arauz Other [employer] Other 12-31-2021 15:15-0400 Body height 162.56 cm Neto Arauz Other [employer] Other 12-31-2021 15:15-0400 Diastolic blood pressure 74 mm[Hg] Neto Arauz Other [employer] Other 12-31-2021 15:15-0400 Respiratory rate 16 /min Neto Arauz Other [employer] Other 12-31-2021 15:15-0400 SaO2% (BldA) [Mass fraction] 85 % Neto Bahmanduyen Other [employer] Other 12-31-2021 15:15-0400 Systolic blood pressure 118 mm[Hg] Neto Arauz Other [employer] Other 09-17-2021 15:45-0400 Body height 162.56 cm Neto Arauz Other [employer] Other 09-17-2021 15:45-0400 Body mass index (BMI) [Ratio] 25.06 kg/m2 Neto Arauz Other [employer] Other 09-17-2021 15:45-0400 Body weight 66.23 kg Neto Arauz Other [employer] Other 09-17-2021 15:45-0400 Diastolic blood pressure 60 mm[Hg] Neto Arauz Other [employer] Other 09-17-2021 15:45-0400 Respiratory rate 18 /min Neto Arauz Other [employer] Other 09-17-2021 15:45-0400 SaO2% (BldA) [Mass fraction] 87 % Neto Arauz Other [employer] Other 09-17-2021 15:45-0400 Systolic blood pressure 112 mm[Hg] Neto Arauz Other [employer] Other 06-02-2021 16:00-0400 Body height 162.56 cm Neto Arauz Other [employer] Other 06-02-2021 16:00-0400 Body mass index (BMI) [Ratio] 25.74 kg/m2 Neto Arauz Other [employer] Other 06-02-2021 16:00-0400 Body weight 68.04 kg Neto Arauz Other [employer] Other 06-02-2021 16:00-0400 Diastolic blood pressure 70 mm[Hg] Neto Arauz Other [employer] Other 06-02-2021 16:00-0400 Respiratory rate 16 /min Neto Arauz Other [employer] Other 06-02-2021 16:00-0400 SaO2% (BldA) [Mass fraction] 85 % Neto Arauz Other [employer] Other 06-02-2021 16:00-0400 Systolic blood pressure 110 mm[Hg] Neto Arauz Other [employer] Other 02-19-2021 15:45-0500 Body height 162.56 cm Neto Arauz Other [employer] Other 02-19-2021 15:45-0500 Body mass index (BMI) [Ratio] 25.74 kg/m2 Neto Arauz Other [employer] Other 02-19-2021 15:45-0500 Body weight 68.04 kg Neto Arauz Other [employer] Other 02-19-2021 15:45-0500 Diastolic blood pressure 66 mm[Hg] Neto Arauz Other [employer] Other 02-19-2021 15:45-0500 Respiratory rate 20 /min Neto Arauz Other [employer] Other 02-19-2021 15:45-0500 SaO2% (BldA) [Mass fraction] 92 % Neto Arauz Other [employer] Other 02-19-2021 15:45-0500 Systolic blood pressure 110 mm[Hg] Neto Arauz Other [employer] Other 01-15-2021 15:15-0500 Body height 162.56 cm Neto Arauz Other [employer] Other 01-15-2021 15:15-0500 Body mass index (BMI) [Ratio] 26.09 kg/m2 Neto Arauz Other [employer] Other 01-15-2021 15:15-0500 Body weight 68.95 kg Neto Arauz Other [employer] Other 01-15-2021 15:15-0500 Diastolic blood pressure 70 mm[Hg] Neto Chela Other [employer] Other 01-15-2021 15:15-0500 Respiratory rate 16 /min Neto Chela Other [employer] Other 01-15-2021 15:15-0500 SaO2% (BldA) [Mass fraction] 91 % Neto Arauz Other [employer] Other 01-15-2021 15:15-0500 Systolic blood pressure 114 mm[Hg] Netobayron Arauz Other [employer] Other 12-30-2020 16:00-0400 Body height Neto Arauz Other [employer] Other 12-30-2020 16:00-0400 Body mass index (BMI) [Ratio] 25.98 kg/m2 Netobayron Ruggieroduyen Other [employer] Other 12-30-2020 16:00-0400 Body weight 68.68 kg Netoabyron Arauz Other [employer] Other 12-30-2020 16:00-0400 Diastolic blood pressure 58 mm[Hg] Neto Ruggieros Other [employer] Other 12-30-2020 16:00-0400 Respiratory rate 20 /min Neto Arauz Other [employer] [facility] ? [facility] Other 12-30-2020 16:00-0400 SaO2% (BldA) [Mass fraction] 88 % Neto Arauz Other [employer] Other 12-30-2020 16:00-0400 Systolic blood pressure 110 mm[Hg] Neto Arauz Other [facility] ? [facility] Other Encounters Encounter Date Encounter Type Care Provider Facility Start: 03-24-2024 End: 03-28-2024 Evaluation and management of inpatient Neto Arauz DO Work Phone: [facility] Work Phone: Start: 03-24-2024 End: 03-28-2024 Neto Arauz DO Work Phone: [facility] [place] [facility] Work Phone: Start: 03-22-2024 End: 03-22-2024 ambulatory KAELYN ROY Facility:[facility] Start: 03-22-2024 End: 03-22-2024 Patient encounter procedure KAELYN ROY [facility] Start: 03-21-2024 ambulatory KAELYN ROY Facility : [facility] Start: 03-15-2024 End: 03-18-2024 ambulatory Jus Perla Facility:[facility] Start: 03-15-2024 End: 03-18-2024 Evaluation and management of inpatient Neto Arauz DO Work Phone: [facility] [place] [facility] Work Phone: Start: 03-15-2024 End: 03-18-2024 observation encounter Neto Arauz DO Work Phone: [facility] Work Phone: Start: 03-15-2024 End: 03-18-2024 Neto Arauz DO Work Phone: [facility] [place] [facility] Work Phone: Start: 03-01-2024 Non-patient / Non-visit Neto Arauz DO Work Phone[facility] Work Phone: Start: 03-01-2024 Neto Arauz DO Work Phone: [facility] Work Phone: Start: 02-29-2024 End: 03-04-2024 Evaluation and management of inpatient Neto Arauz DO Work Phone: [facility] [place] [facility] Work Phone: Start: 02-29-2024 End: 03-04-2024 Neto Arauz DO Work Phone: [facility] [place] [facility] Work Phone: Start: 02-03-2024 ambulatory KALEIGH Lerma RIOS [facility] Start: 01-30-2024 End: 01-30-2024 Patient encounter procedure Neto Arauz DO Work Phone: [facility] [employer] Work Phone: Start: 01-30-2024 End: 01-30-2024 Neto Arauz DO Work Phone: [facility] [employer] Work Phone: Start: 01-30-2024 End: 01-30-2024 ambulatory Kaleigh Rios Facility:[facility] Start: 01-25-2024 End: 01-25-2024 ambulatory Sandor Mcduffie DO [facility] Work Phone: Start: 01-25-2024 End: 01-25-2024 Patient encounter procedure Sandor Mcduffie DO [facility] Work Phone: Start: 01-25-2024 End: 01-25-2024 Neto Arauz DO Work Phone: [facility] Work Phone: Start: 01-24-2024 End: 01-24-2024 ambulatory Sandor Mcduffie DO [facility] Work Phone: Start: 01-24-2024 End: 01-24-2024 Patient encounter procedure Sandor Mcduffie DO [facility] Pulmonary Disease Work Phone: Start: 01-24-2024 End: 01-24-2024 Neto Arauz DO Work Phone: [facility] Work Phone: Start: 01-23-2024 End: 01-23-2024 Patient encounter procedure Sandor Mcduffie DO [facility] Work Phone: Start: 01-23-2024 End: 01-23-2024 Neto Arauz DO Work Phone: [facility] Work Phone: Start: 01-23-2024 End: 01-23-2024 ambulatory Sandor Mcduffie DO [facility] Work Phone: Start: 01-16-2024 Non-patient / Non-visit Neto Arauz DO Work Phone: [facility] Medicine T[facility] Work Phone: Start: 01-16-2024 Neto Arauz DO Work Phone: [facility] Family Medicine T[facility] Work Phone: Start: 01-06-2024 End: 01-06-2024 Office outpatient visit 15 minutes Ferdinand Galdamez DO Work Phone: [facility] Comment on above: Essential hypertensi on; Mixed hyperlipidemia; Chronic obstructive pulmonary disease, unspecified COPD type (Multi); Type 2 diabetes mellitus without complication, with long-term current use of insulin (Multi); BMI 29.0-29.9,adult; Former smoker Start: 01-06-2024 End: 01-06-2024 ambulatory [facility] Ambulatory Start: 12-20-2023 End: 12-21-2023 Refill Nicole Sparks MILITARY COMMUNICATIONS SPECIALIST Work Phone: [facility] [address] Comment on above: Neuropathy Start: 11-23-2023 End: 11-24-2023 Emergency department patient visit DO Adán Arthur Work Phone: [facility] Work Phone: Start: 11-23-2023 Non-patient / Non-visit DO Robert iel Arthur Work Phone: [facility] Work Phone: Start: 11-19-2023 Non-patient / Non-visit DO Robert iel Arthur Work Phone: [facility] Work Phone: Start: 11-18-2023 End: 11-21-2023 Evaluation and management of inpatient DO Adán Arthur Work Phone: [facility] [place] [facility] Work Phone: Start: 10-27-2023 Non-patient / Non-visit DO Robert iel Arthur Work Phone: [facility] Work Phone: Start: 10-18-2023 Non-patient / Non-visit DO Robert iel Arthur Work Phone: [facility] Work Phone: Start: 10-17-2023 End: 10-17-2023 ambulatory SUSAN REYES Not Available Start: 10-14-2023 End: 10-14-2023 Patient encounter procedure DO Neto Arauz Work Phone: [facility] Work Phone: Start: 10-14-2023 End: 10-14-2023 ambulatory DO Neto Arauz Work Phone: [facility] Work Phone: Start: 10-14-2023 End: 10-14-2023 ambulatory DO Neto Arauz Work Phone: [facility] Work Phone: Start: 10-14-2023 End: 10-14-2023 Patient encounter procedure DO Neto Arauz Work Phone: [facility] T[facility] Work Phone: Start: 10-11-2023 End: 10-11-2023 ambulatory DO Neto Arauz Work Phone: [facility] Work Phone: Start: 10-11-2023 End: 10-11-2023 Patient encounter procedure DO Neto Arauz Work Phone: [facility] Pul[facility] Disease Work Phone: Start: 10-05-2023 Non-patient / Non-visit DO José Ruggieros Work Phone: [facility] Work Phone: Start: 09-26-2023 Non-patient / Non-visit DO José Ruggieros Work Phone: [facility] Pul[facility] Disease Work Phone: Start: 09-26-2023 End: 09-26-2023 Patient encounter procedure DO Neto Arauz Work Phone: [facility]-Respiratory Therapy Work Phone: Start: 09-26-2023 End: 09-26-2023 ambulatory DO Neto Arauz Work Phone: [facility] Work Phone: Start: 08-22-2023 End: 08-22-2023 Office outpatient visit 15 minutes Jessica Hi MEAT SUPERVISOR-ELECTRONICS INSTALLER Work Phone: [facility] Comment on above: Coronary artery dise ase involving [place] coronary artery of [place] heart without angina pectoris (Primary Dx); Essential hypertension; Mixed hyperlipidemia; Diabetes mellitus type II, non insulin dependent (Multi); BMI 27.0-27.9,adult; Chronic obstructive pulmonary disease, unspecified COPD type (Multi); Former smoker Start: 08-22-2023 End: 08-22-2023 ambulatory JESSICA [facility] Ambulatory Start: 08-18-2023 End: 08-18-2023 ambulatory DO Neto Arauz Work Phone: [facility] Work Phone: Start: 08-18-2023 End: 08-18-2023 Patient encounter procedure DO Neto Arauz Work Phone: [facility] Work Phone: Start: 08-07-2023 End: 08-11-2023 Non-patient / Non-visit DO Neto Arauz Work Phone: [facility] Work Phone: Start: 08-06-2023 End: 08-11-2023 Evaluation and management of inpatient DO Neto Arauz Work Phone: [facility] [place] [facility] Work Phone: Start: 07-26-2023 End: 07-30-2023 Evaluation and management of inpatient DO Neto Arauz Work Phone: [facility] [place] [facility] Work Phone: Start: 06-29-2023 End: 06-29-2023 ambulatory SUSAN REYES Not Available Start: 06-24-2023 Non-patient / Non-visit DO José Arauz Work Phone: [facility] [employer] Work Phone: Start: 04-10-2023 Chart abstracting Susan stovall MD Work Phone: [facility] 210 Start: 03-03-2023 End: 03-03-2023 ambulatory Neto Arauz Other [employer] Other Start: 03-03-2023 Office outpatient vi sit 25 minutes Netobayron Arauz [facility] Start: 03-03-2023 Telephone encounter Neto Arauz [facility] Start: 02-22-2023 End: 02-22-2023 ambulatory Neto Arauz Other [facility] ? [facility] Other Start: 02-22-2023 Telephone encounter Neto Arauz [facility] Start: 02-15-2023 End: 02-15-2023 ambulatory Neto Arauz Other [employer] [employer] Other Start: 02-15-2023 Telephone encounter Neto Arauz [facility] Start: 01-03-2023 End: 01-03-2023 ambulatory Neto Arauz Other [employer] [employer] Other Start: 01-03-2023 Telephone encounter Neto Arauz [facility] Start: 12-13-2022 End: 12-13-2022 ambulatory DO Neto Arauz Work Phone: [facility] Work Phone: Start: 12-13-2022 End: 12-13-2022 Patient encounter procedure DO Neto Arauz Work Phone: [facility] Work Phone: Start: 09-02-2022 Chart Update Ferdinand garcia MD Work Phone: [facility] [address] DO Work Phone: Start: 09-02-2022 End: 09-02-2022 Emergency department patient visit DO Neto Arauz Work Phone: [facility] Work Phone: Start: 09-01-2022 End: 09-01-2022 ambulatory Neto Arauz Other [facility] ? [facility] Other Start: 09-01-2022 Telephone encounter Neto Bahmanduyen [facility] Medicine T[facility] Start: 08-31-2022 End: 08-31-2022 ambulatory Netobayron Arauz Other [facility] ? [facility] Other Start: 08-31-2022 Telephone encounter Neto Chela [facility] Tiller Start: 08-30-2022 Telephone encounter Neto Bahmanduyen [facility] Tiller Start: 08-30-2022 End: 08-30-[address] Galdamez [facility] ? IO Other Start: 08-29-[address] Ferdinand Galdamez [facility]:[id number] Start: 08-28-2022 End: 08-30-2022 Evaluation and management of inpatient DO Neto Arauz Work Phone: [facility] [place] [facility] Work Phone: Start: 08-28-2022 Evaluation and management of inpatient DO Neto Arauz Work Phone: [facility] [place] [facility] Work Phone: Start: 08-28-2022 observation encounter DO Neto Arauz Work Phone: [facility] Work Phone: Start: 08-25-2022 End: 08-25-2022 ambulatory Neto Arauz Other [facility] ? IO Other Start: 08-25-2022 Telephone encounter Netobayron Arauz [facility] Start: 08-11-2022 End: 08-11-2022 ambulatory Netobayron Arauz Other [employer] Other Start: 08-11-2022 Telephone encounter Neto Arauz [facility] Start: 06-29-2022 End: 06-29-2022 ambulatory Netobayron Arauz Other [employer] Other Start: 06-29-2022 Office outpatient vi sit 25 minutes Neto Arauz [facility] Start: 06-24-2022 End: 06-24-2022 ambulatory Netobayron Arauz Other [employer] Other Start: 06-24-2022 Telephone encounter Netobayron Arauz [facility] Start: 06-18-2022 End: 06-18-2022 ambulatory Netobayron Arauz Other [employer] Other Start: 06-18-2022 Telephone encounter Neto Arauz [facility] Start: 03-23-2022 End: 03-23-2022 ambulatory Netobayron Arauz Other [employer] Other Start: 03-23-2022 Telephone encounter Netobayron Arauz [facility] Start: 03-19-2022 End: 03-19-2022 ambulatory Netobayron Arauz Other [employer] Other Start: 03-19-2022 Telephone encounter Neto Arauz [facility] Start: 03-15-2022 End: 03-15-2022 ambulatory Netobayron Arauz Other [employer] Other Start: 03-15-2022 Telephone encounter Netobayron Arauz [facility] Start: 03-12-2022 End: 03-12-2022 ambulatory Neto Ruggieros Other [employer] Other Start: 03-12-2022 Telephone encounter Neto Ruggieros [facility] Start: 03-08-2022 End: 03-08-2022 ambulatory Netobayron Ruggieros Other [employer] Other Start: 03-08-2022 Telephone encounter Netobayron Ruggieros [facility] Start: 03-04-2022 End: 03-04-2022 ambulatory Neto aBhmans Other [employer] Other Start: 03-04-2022 Office outpatient vi sit 25 minutes Neto Bahmans [facility] Start: 02-18-2022 End: 02-18-2022 ambulatory Neto Bahmans Other [employer] Other Start: 02-18-2022 Telephone encounter Neto Ruggieros [facility] Start: 01-22-2022 End: 01-22-2022 ambulatory Netobayron Ruggieros Other [employer] Other Start: 01-22-2022 Telephone encounter Neto Ruggieros [facility] Start: 12-31-2021 End: 12-31-2021 ambulatory Neotbayron Ruggieros Other [employer] Other Start: 12-31-2021 Office outpatient vi sit 25 minutes Neto Bahmans [facility] Start: 12-07-2021 End: 12-07-2021 ambulatory Netobayron Ruggieros Other [employer] Other Start: 12-07-2021 Telephone encounter Netobayron Ruggieros [facility] Start: 09-23-2021 End: 09-23-2021 ambulatory Netobayron Ruggieros Other [employer] Other Start: 09-23-2021 Telephone encounter Neto Ruggieros [facility] Start: 09-17-2021 End: 09-17-2021 ambulatory Neto Ruggieros Other [employer] Other Start: 09-17-2021 Office outpatient vi sit 25 minutes Netobayron Ruggieros [facility] Start: 09-08-2021 End: 09-08-2021 ambulatory Neto Ruggieros Other [employer] Other Start: 09-08-2021 Telephone encounter Neto Ruggieros [facility] Start: 06-26-2021 End: 06-26-2021 ambulatory Netobayron Ruggieros Other [employer] Other Start: 06-26-2021 Telephone encounter Neto Ruggieros [facility] Start: 06-19-2021 End: 06-19-2021 ambulatory Netobayron Ruggieros Other [employer] Other Start: 06-19-2021 Telephone encounter Netobayron Ruggieros [facility] Start: 06-02-2021 End: 06-02-2021 ambulatory Netobayron Ruggieros Other [employer] Other Start: 06-02-2021 Office outpatient vi sit 25 minutes Netobayron Ruggieros [facility] Start: 05-08-2021 End: 05-08-2021 ambulatory Netobayron Ruggieros Other [employer] Other Start: 05-08-2021 Telephone encounter Netobayron Ruggieros [facility] Start: 03-22-2021 End: 03-22-[address] ANA CRISTINA [facility] Facility: Start: 02-19-2021 End: 02-19-2021 ambulatory Neto Arauz Other [employer] Other Start: 02-19-2021 Office outpatient vi sit 25 minutes Neto Arauz [facility] Tiller Start: 01-26-2021 End: 01-26-2021 ambulatory Neto Arauz Other [employer] Other Start: 01-26-2021 Telephone encounter Neto Arauz [facility] Start: 01-15-2021 End: 01-15-2021 ambulatory Neto Arauz Other [employer] Other Start: 01-15-2021 Office outpatient vi sit 25 minutes Neto Arauz [facility] Tiller Start: 12-30-2020 Office outpatient vi sit 25 minutes Neto Arauz [facility] Tiller Start: 12-30-2020 Telephone encounter Neto Arauz [facility] Procedures Date Procedure Procedure Detail Performing Clinician Start: 03-26-2024 Aerobic microbial culture Neto Arauz DO Work Phone: Start: 03-26-2024 Gram stain microscopy B danyel Arauz DO Work Phone: Start: 03-24-2024 CT angiography of thorax Neto Arauz DO Work Phone: Start: 03-24-2024 Respiratory pathogen s DNA and RNA panel - Nasopharynx by MITCHELL with non-probe detection Neto Arauz DO Work Phone: Start: 03-24-2024 Plain chest X-ray Neto Arauz DO Work Phone: Start: 03-15-2024 CT of abdomen and pe lvis without contrast Neto Arauz DO Work Phone: Start: 03-15-2024 Urine culture Neto geller DO Work Phone: Start: 03-01-2024 Plain chest X-ray Neto Arauz DO Work Phone: Start: 02-29-2024 Plain chest X-ray Neto Arauz DO Work Phone: Start: 02-29-2024 Bacteria identified in Blood by Culture Neto Arauz DO Work Phone: Start: 02-29-2024 Urine culture Neto geller DO Work Phone: Start: 02-29-2024 End: 02-29-2024 Viral nucleic acid assay Neto Arauz DO Work Phone: Start: 02-29-2024 Neto Arauz DO Work Phone: Start: 11-23-2023 Plain chest X-ray DO Amos Arthur Work Phone: Start: 11-18-2023 Aerobic microbial culture Sandor Mcduffie DO Start: 11-18-2023 Blood culture for ba cteria, including anaerobic screen DO Adán Arthur Work Phone: Start: 11-18-2023 Gram stain microscopy Maliha lucio Reta DO Start: 11-18-2023 Investigation of tra nsfusion reaction DO Adán Arthur Work Phone: Start: 11-18-2023 SARS-CoV-2, Influenz a & RSV (PCR) DO Adán Arthur Work Phone: Start: 11-18-2023 Viral nucleic acid assay Sandor Mcduffie DO Start: 11-18-2023 Plain chest X-ray DO Amos Arthur Work Phone: Start: 08-10-2023 CT of chest without contrast DO Neto Arauz Work Phone: Start: 08-07-2023 Investigation of tra nsfusion reaction DO Neto Arauz Work Phone: Start: 08-07-2023 SARS-CoV-2, Influenz a & RSV (PCR) DO Neto Arauz Work Phone: Start: 08-07-2023 Ultrasonography of b ilateral kidneys DO Neto Arauz Work Phone: Start: 08-07-2023 Plain chest X-ray DO Clark Arauz Work Phone: Start: 07-29-2023 Plain chest X-ray DO Clark Arauz Work Phone: Start: 07-26-2023 Urine culture DO Neto Arauz Work Phone: Start: 07-25-2023 Plain chest X-ray DO Clark Arauz Work Phone: Start: 07-25-2023 Blood culture for ba cteria, including anaerobic screen DO Neto Arauz Work Phone: Start: 07-25-2023 SARS-CoV-2, Influenz a & RSV (PCR) DO Neto Arauz Work Phone: Start: 08-30-2022 [facility] COR Angio DO Marco Arauz Work Phone: Start: 08-29-2022 SARS Antigen (LFIA) DO Neto Arauz Work Phone: Start: 08-28-2022 Plain chest X-ray DO Clark Arauz Work Phone: Bilateral cataracts (disorder) KAELYN ROY Charcot's joint of f oot (disorder) KAELYN ROY History of operative procedure on hip KAELYNFELICIA ROY Parathyroidectomy KAELYN JOHNSON Partial hysterectomy CAROLINA SAWYERRY Post-surgery back pa in (finding) KAELYN ROY Plan of Treatment Date Care Activity Detail Author Start: 03-28-2024 [facility] Start: 2024 aPTT in Platelet poor plasma by Coagulation assay [facility] Start: 2024 Comprehensive metabolic 2000 panel - Serum or Plasma [facility] Start: 2024 End: 2024 [facility] Start: 03-24-2024 [facility] Start: 03-24-2024 Physical therapy procedure [facility] Start: 03-24-2024 Referral to storage architect [facility] Start: 03-24-2024 Referral to occupational therapist [facility] Start: 03-24-2024 [facility] Start: 03-24-2024 Hospital admission [facility] Start: 03-24-2024 End: 03-24-2024 [facility] Start: 03-18-2024 [facility] Start: 03-16-2024 Referral to urologist [facility] Start: 03-16-2024 End: 03-16-2024 [facility] Start: 03-15-2024 Hospital admission [facility] Start: 03-15-2024 [facility] Start: 03-15-2024 Referral to urologist [facility] Start: 03-15-2024 Urine culture [facility] Start: 03-15-2024 Bacteria identified in Urine by Culture Urine Culture [facility] Start: 03-04-2024 [facility] Start: 03-02-2024 [facility] Start: 02-29-2024 Consultation [facility] Start: 02-29-2024 Hospital admission [facility] Start: 02-13-2024 End: 02-13-2024 Patient encounter procedure 02/13/2024 10:40 AM EST Office Visit [facility] [address] [place] [address] Susan Reyes MD [address] [place] [address] [facility] Start: 11-21-2023 [facility] Start: 11-18-2023 Bacteria identified in Blood by Culture [facility] Start: 11-18-2023 Blood culture for bacteria, including anaerobic screen Blood Culture [facility] Start: 11-18-2023 Hospital admission [facility] Start: 11-06-2023 COVID-19 Vaccine () COVID-19 Vaccine () [facility] Start: 11-06-2023 Influenza vaccination [facility] Start: 10-14-2023 Comprehensive metabolic 2000 panel - Serum or Plasma [facility] Start: 10-14-2023 [facility] Start: 08-11-2023 [facility] Start: 08-07-2023 Hospital admission [facility] Start: 08-07-2023 Referral to first aid trainer [facility] Start: 07-30-2023 [facility] Start: 07-29-2023 [facility] Start: 07-28-2023 [facility] Start: 07-27-2023 aPTT in Platelet poor plasma by Coagulation assay [facility] Start: 07-27-2023 [facility] Start: 07-26-2023 [facility] Start: 07-26-2023 Physical therapy procedure [facility] Start: 07-26-2023 Referral to occupational therapist [facility] Start: 07-26-2023 Referral to speech and language therapy service [facility] Start: 07-26-2023 [facility] Start: 07-26-2023 Sleep disorder assessment [facility] Start: 07-26-2023 End: 07-26-2023 [facility] Start: 07-26-2023 Hospital admission [facility] Start: 07-25-2023 Plain chest X-ray XR chest 1V portable [facility] Start: 07-25-2023 XR Chest Single view [facility] Start: 07-25-2023 Bacteria identified in Blood by Culture Blood Culture [facility] Start: 07-25-2023 Blood culture for bacteria, including anaerobic screen Blood Culture [facility] Start: 04-11-2023 End: 04-11-2023 Patient encounter procedure 04/11/2023 1:40 PM EST Office Visit [facility] [address] [place] [address] Susan Reyes MD [address], [place] [address] [facility] Start: 11-05-2022 COVID-19 Vaccine ( season) COVID-19 Vaccine ( season) [facility] Start: 11-05-2022 Influenza vaccination Influenza Vaccine (#1) [facility] Start: 08-30-2022 [facility] Start: 08-29-2022 [facility] Start: 08-29-2022 Referral to storage architect [facility] Start: 08-29-2022 [facility] Start: 08-28-2022 [facility] Start: 08-28-2022 Hospital admission [facility] Start: 08-28-2022 End: 08-28-2022 [facility] Start: 11-19-2021 Pneumococcal Vaccine: 65+ Years (2 - PCV) Pneumococcal Vaccine: 65+ Years (2 - PCV) [facility] Start: 11-19-2021 Pneumococcal Vaccine: 65+ Years (2 of 2 - PCV) Pneumococcal Vaccine: 65+ Years (2 of 2 - PCV) [facility] Start: 10-06-2015 Pneumococcal Vaccine: 65+ Years (2 of 2 - PCV) Pneumococcal Vaccine: 65+ Years (2 of 2 - PCV) [facility] Start: 2013 RSV High Risk: (Elderly (60+) or Population) (1 - Risk 60-74 years 1-dose series) RSV High Risk: (Elderly (60+) or Population) (1 - Risk 60-74 years 1-dose series) [facility] Start: 2013 RSV patients and/or patients aged 60+ years (1 - 1-dose 60+ series) RSV patients and/or patients aged 60+ years (1 - 1-dose 60+ series) [facility] Start: 2003 Zoster Vaccines (1 of 2) Zoster Vaccines (1 of 2) [facility] Start: 1993 Screening for malignant neoplasm of breast Mammogram [facility] Start: 1975 DTaP/Tdap/Td Vaccines (1 - Tdap) DTaP/Tdap/Td Vaccines (1 - Tdap) [facility] Start: 1972 Urine screening for protein Diabetes: Urine Protein Screening [facility] Start: 1971 Hepatitis C screening Hepatitis C Screening [facility] Start: 1963 Diabetic foot examination Diabetes: Foot Exam [facility] Start: 1963 Glaucoma screening Diabetes: Retinopathy Screening [facility] Start: 1953 Hemoglobin A1c measurement Diabetes: Hemoglobin A1C [facility] Start: 1953 Lipid panel Lipid Panel [facility] Start: 1953 Medicare Annual Wellness Visit Medicare Annual Wellness Visit (AWV) [facility] Start: 1953 Screening for malignant neoplasm of colon [facility] Start: 1953 Screening for osteoporosis Bone Density Scan [facility] Start: 1953 Thyroid stimulating hormone measurement TSH Level [facility] Albumin/Globulin ratio [facility] Anion gap measurement [facility] Anion gap measurement [facility] Basophils [#/volume] in Blood by Automated count [facility] Basophils [#/volume] in Blood by Automated count [facility] Basophils/100 leukoc ytes in Blood by Automated count [facility] Basophils/100 leukoc ytes in Blood by Automated count [facility] Calculated LDL cholesterol level [facility] Cholesterol.total/Ch olest martine in HDL [Mass Ratio] in Serum or Plasma [facility] Eosinophils/100 leukocytes in Blood by Automated count [facility] Eosinophils/100 leukocytes in Blood by Automated count [facility] Erythrocyte distribu tion width [Ratio] by Automated count [facility] Erythrocyte distribu tion width [Ratio] by Automated count [facility] Erythrocytes [#/volu me] in Blood [facility] Erythrocytes [#/volu me] in Blood [facility] Gas panel - Arterial blood [facility] Globulin [Mass/volum e] in Serum [facility] Glucose measurement estimated from glycated hemoglobin [facility] Hematocrit [Volume Fraction] of Blood [facility] Hematocrit [Volume Fraction] of Blood [facility] Hemoglobin [Mass/vol ume] in Blood [facility] Hemoglobin [Mass/vol ume] in Blood [facility] Leukocytes [#/volume ] corrected for nucleated erythrocytes in Blood by Automated coun [facility] Leukocytes [#/volume ] corrected for nucleated erythrocytes in Blood by Automated coun [facility] Leukocytes [#/volume ] in Blood [facility] Leukocytes [#/volume ] in Blood [facility] Lymphocytes [#/volum e] in Blood by Automated count [facility] Lymphocytes [#/volum e] in Blood by Automated count [facility] Lymphocytes/100 leukocytes in Blood by Automated count [facility] Lymphocytes/100 leukocytes in Blood by Automated count [facility] MCH [Entitic mass] b y Automated count [facility] MCH [Entitic mass] b y Automated count [facility] MCHC [Mass/volume] b y Automated count [facility] MCHC [Mass/volume] b y Automated count [facility] MCV [Entitic volume] by Automated count [facility] MCV [Entitic volume] by Automated count [facility] Monocytes [#/volume] in Blood by Automated count [facility] Monocytes [#/volume] in Blood by Automated count [facility] Monocytes/100 leukoc ytes in Blood by Automated count [facility] Monocytes/100 leukoc ytes in Blood by Automated count [facility] Neutrophils [#/volum e] in Blood by Automated count [facility] Neutrophils [#/volum e] in Blood by Automated count [facility] Neutrophils/100 leukocytes in Blood by Automated count [facility] Neutrophils/100 leukocytes in Blood by Automated count [facility] Nucleated erythrocyt es [Presence] in Blood by Automated count [facility] Nucleated erythrocyt es [Presence] in Blood by Automated count [facility] Parathyrin related protein [Moles/volume] in Serum or Plasma [facility] Patient Education [facility] Work Phone: Patient referral [facility] Work Phone: Platelet mean volume [Entitic volume] in Blood by Automated count [facility] Platelet mean volume [Entitic volume] in Blood by Automated count [facility] Platelets [#/volume] in Blood [facility] Platelets [#/volume] in Blood [facility] Urine culture [facility] VLDL cholesterol measurement [facility] Immunizations Immunization Date Immunization Notes Care Provider Fa cility 01-20-2022 influenza virus vaccine, unspecified formulation Susan Reyes MD Work Phone: [facility] 12-30-2020 influenza, high dose seasonal, preservative-free Neto Bahmans Other [facility] ? [place] Other 12-30-2020 influenza virus vaccine, unspecified formulation DO Neto Arauz Work Phone: [facility] 07-11-2020 SARS-CoV-2 (COVID-19 ) mRNA-1273 vaccine KAELYN ROY [facility] Comment on above: Result Comment: 2024: [id number] 06-13-2020 SARS-CoV-2 (COVID-19 ) mRNA-1273 vaccine KAELYN ROY [facility] Comment on above: Result Comment: 2024: [id number] 01-07-2020 influenza, high dose seasonal, preservative-free Ento Kuns Other [facility] ? [place] Other 01-07-2020 influenza virus vaccine, unspecified formulation DO Neto Arauz Work Phone: [facility] 12-02-2015 influenza, injectabl e, quadrivalent, contains preservative Neto Kuns Other [facility] ? [place] Other 12-02-2015 influenza virus vaccine, unspecified formulation KAELYN ROY [facility] 12-02-2015 influenza, injectabl e, quadrivalent, preservative free DO Neto Arauz Work Phone: [facility] 12-03-2014 influenza, high dose seasonal, preservative-free Neto Arauz Other [employer] [facility] ? [place] Other 12-03-2014 influenza virus vaccine, unspecified formulation DO Neto Arauz Work Phone: [facility] 10-05-2014 pneumococcal polysaccharide vaccine, 23 valent Neto Arauz Other [facility] 08-14-2013 B-12 - up to 1000 mcg Neto Arauz Other [facility] ? [place] Other Payers Date Payer Category Payer Self-pay [id number] 2019 [facility] Subscriber Plan / Payer (Effective 2019-Present) Name: Conchis Charles Relation to Subscriber: Self Name: Conchis Charles Payer ID: Not on file Type: Not on file Address: [address] [place] [id number] 2019 [facility] [id number] 2019 Unknown 2019 [facility] [id number] 2005 Medicare [id number] [id number] 1959 Medicare [id number] 1959 Unknown [id number] 1953 Unknown [id number] 2.16.840.1.120538.3.57 9.2.593 1953 Unknown [id number] 2.16.840.1.549820.3.57 9.2.356 1953 Unknown [id number] 2.16.840.1.441831.3.57 9.2.356 1953 Unknown [id number] 2.16.840.1.098421.3.57 9.2.1259 1953 Unknown [id number] 2.16.840.1.314906.3.57 9.2.1259 1953 Unknown [id number] 2.16.840.1.080447.3.57 9.2.1244 1953 Unknown [id number] 2.16.840.1.966448.3.57 9.2.1244 1953 Unknown [id number] 2.16.840.1.006090.3.57 9.2.727 Medicare Medicare Nonpatient [id number] 2A [id number] Medicare [id number] Private Health Insurance [employer] MCR PFFS [id number] Unknown HCAP/HFA/FAP Active [id number] 2 [id number] Unknown [id number] 2.16.840.1.192263.3.57 9.2.531 Unknown [id number] 2.16.840.1.143034.3.57 9.2.531 Unknown [id number] 2.16.840.1.407037.3.57 9.2.531 Unknown [id number] 2.16.840.1.101002.3.57 9.2.531 Unknown [id number] 2.16.840.1.462288.3.57 9.2.531 Unknown [id number] 2.16.840.1.772918.3.57 9.2.531 Unknown [id number] 2.16.840.1.049533.3.57 9.2.531 Unknown [id number] 2.16.840.1.641210.3.57 9.2.531 Unknown [id number] 2.16.840.1.471856.3.57 9.2.531 Unknown [id number] 2.16.840.1.245494.3.57 9.2.531 Unknown [id number] 2.16.840.1.099821.3.57 9.2.531 Social History Date Type Detail Facility Unknown if ever smoked [facility] Other Start: 08-22-2023 End: 01-06-2024 Sex Assigned At [facility] Start: 08-28-2022 End: 07-26-2023 Tobacco smoking status MAIS Smoker (finding) [facility] Start: 1955 Sex Assigned At Female F [facility] Start: 04-11-2023 Tobacco smoking stat us RUST Smokes tobacco daily [facility] History of tobacco use Cigarette Smoker [facility] Start: 04-11-2023 Tobacco Comment 11-20 cigarettes a d ay [facility] Start: 1955 Sex Assigned At Not on file [facility] Start: 08-07-2023 End: 2024 Tobacco smoking status MAIS Ex-smoker (finding) [facility] Start: 08-22-2023 Tobacco use and exposure Smokeless tobacco non-user [facility] Work Phone: Start: 08-22-2023 End: 01-06-2024 Alcoholic beverage intake Lifetime non-drinker (finding) [facility] Work Phone: Start: 08-22-2023 End: 01-06-2024 History of Social function [facility] Work Phone: Start: 08-12-2023 End: 01-06-2024 Exposure to SARS-CoV-2 (event) Not sure [facility] Start: 06-29-2023 Gender identity Identifies as female gender (finding) [facility] Start: 01-24-2024 End: 03-28-2024 Sex Female (finding) [facility] Tobacco smoking status Never [facility] Medical Equipment Procedure Code Equipment Code Equipment Origin al Text Equipment Identifier Dates Start: 09-14-2012 Blood Sugar Diagnostic (Blood Glucose Test) strip Start: 06-24-2023 Blood Sugar Diagnostic (Blood Glucose Test) strip Start: 06-24-2023 Blood Sugar Diagnostic (Blood Glucose Test) strip Start: 06-24-2023 Blood Sugar Diagnostic (Blood Glucose Test) strip Start: 06-24-2023 Blood Sugar Diagnostic (Blood Glucose Test) strip Start: 06-24-2023 Blood Sugar Diagnostic (Blood Glucose Test) strip Start: 06-24-2023 Blood Sugar Diagnostic (Blood Glucose Test) strip Start: 06-24-2023 Blood Sugar Diagnostic (Blood Glucose Test) strip Start: 06-24-2023 Blood Sugar Diagnostic (Blood Glucose Test) strip Start: 06-24-2023 Blood Sugar Diagnostic (Blood Glucose Test) strip Start: 06-24-2023 Blood Sugar Diagnostic (Blood Glucose Test) strip Start: 06-24-2023 Blood Sugar Diagnostic (Blood Glucose Test) strip Start: 06-24-2023 Blood Sugar Diagnostic (Blood Glucose Test) strip Start: 06-24-2023 Blood Sugar Diagnostic (Blood Glucose Test) strip Start: 01-25-2024 Blood Sugar Diagnostic (Blood Glucose Test) strip Start: 06-24-2023 End: 01-25-2024 Blood Sugar Diagnostic (Blood Glucose Test) strip Start: 01-25-2024 Blood Sugar Diagnostic (Blood Glucose Test) strip Start: 06-24-2023 End: 01-25-2024 Blood Sugar Diagnostic (Blood Glucose Test) strip Start: 01-25-2024 Blood Sugar Diagnostic (Blood Glucose Test) strip Start: 06-24-2023 End: 01-25-2024 Goals Date Patient Goal Desired Activity /State Functional Status Date Assessment Result Facility 03-28-2024 Functional status Patient is Pro gressing Toward [facility] Work Phone: 03-22-2024 Functional Status N/A [facility] 03-18-2024 Functional status Patient is Pro gressing Toward [facility] Work Phone: 03-04-2024 Functional status Patient at Baseline [facility] Work Phone: 11-21-2023 Functional status Patient at Baseline [facility] Work Phone: 08-06-2023 Functional status Patient is Pro gressing Toward [facility] Work Phone: 07-30-2023 Functional status Patient is Pro gressing Toward [facility] Work Phone: 07-26-2023 Functional status Patient is Pro gressing Toward [facility] Work Phone: 08-30-2022 Functional status Patient at Baseline [facility] Work Phone: Mental Status Date Assessment Result Facility 03-28-2024 Cognitive function Patient at Baseline [facility] Work Phone: 03-18-2024 Cognitive function Patient is Pr ogressing Toward [facility] Work Phone: 03-04-2024 Cognitive function Patient at Baseline [facility] Work Phone: 11-21-2023 Cognitive function Cognitive Sta tus Patient at Baseline [facility] Work Phone: 08-06-2023 Cognitive function Cognitive Sta tus Patient is Progressing Toward [facility] Work Phone: 07-30-2023 Cognitive function Cognitive Sta tus Patient at Baseline [facility] Work Phone: 07-26-2023 Cognitive function Cognitive Sta tus Patient is Progressing Toward [facility] Work Phone: 08-30-2022 Cognitive function Cognitive Sta tus Patient at Baseline [facility] Work Phone: Clinical Notes 08-01-2013 to 03-28-2024 Note Date & Type Note Facility 03-28-2024 Progress note Note Date/Time March 28, 2024 12:00am [facility] [address] [place] [address] Hospitalist Progress Note Signed Patient: Conchis Charles MR#: [id number] 826 : 1955 Acct:[id number] Age/Sex: 69 / F Adm Date: 5 Loc: Room: [address] [place] [address] Type: ADM IN Attending Dr: Yaakov Garcia MD Copies to: ~ Date of Service: 03/27/2024 Subjective Subjective Narrative: Assessment And Plan 68F PMH of COPD on chronic 5 L nasal cannula O2, DM, hypothyroidism, who presents with shortness of breath and increased swelling in her legs. Volume Overload Acute HFrEF takotsubo cardiomyopathy BNP up to 1800 Echo shows EF 40%, mild diastolic dysfunction.moderate to severe degree of hypokinesis of the mid to distal anteroseptal wall apex and distal inferolateral wall. Regional motion abnormality suspicious of stress cardiomyopathy or apical ballooning syndrome she was started on IV Lasix then switched to oral i called the RN that work with cardiology team and updated about echo results who said cardiology sign off the patient type II WA NSTEMI ruled out She was started on heparin drip; She was evaluated by cardiology Elevated troponin is likely type II WA given the patient's fairly negative cath only 2 years Acute on chronic hypoxic respiratory failure COPD Hypoxia at baseline, she has cough which also chronic for her The patient is afebrile with no leukocytosis . She required up to 6L of O2 . ABG shows no hypercapnia . metabolic acidosis appear to be chronic blood culture negative so far Septum Cx negative so far Chest CTA is negative for central to segmental branch pulmonary emboli. chronicemphysematous changes with scattered bronchial wall thickening, , small effusions, greatest in the right with bibasilar atelectasis. mild interstitial edema may suggest point of interstitial pulmonary edema. hiatal hernia. Hypoxia is likely due to HF rather to be due to COPD exacerbation continue breathing Tx Bacterial respiratory infection Today her sputum culture came back GNR. this may contribute to her HF exacerbation Favor starting Levaquin PO (PNC allergy) for now LINTERVAL HPI: As Above, Pt resting in bed. feeling the same . chroic cough Denies any chest pain. still having SOB Chronic diseases: Unless mentioned Above, Essential home medications have been continued. DVT Px: Addressed Disposition: To be determined Plan of care Discussed with: the medical team, the patient L Exam Physical Exam Vital Signs: Temp Pulse Resp BP Pulse Ox O2 Del Method O2 Flow Rate 36.9 C 78 20 119/58 L 99 Nasal Cannula 4 03/27/24 08:00 03/27/24 12:05 03/27/24 12:05 03/27/24 08:00 03/27/24 08:00 03/27/24 08:00 03/27/24 08:00 Narrative: GEN: NAD, Cooperative NECK: ? JVD LUNGS: diminished breathing sounds no wheezing or crackles . normal respiratoryeffort CV: nl S1 S2; no M/R/G ABD: Soft, ND, NT, + BS EXT: No peripheral edema, No calf muscle tenderness NEURO: ? FND. PSYCH: nl affect, AOx3 Objective Lab Results 03/26/24 05:20 03/26/24 05:20 Microbiology Results Microbiology 03/26/24 10:50 Sputum - Expectorated Aerobic Culture - Preliminary Gram Negative Bacilli 03/26/24 10:50 Sputum - Expectorated Gram Stain - Final 03/24/24 14:24 Blood - Left Antecubital Blood Culture - Preliminary No Growth 2 Days 03/24/24 14:31 Blood - Right Antecubital Blood Culture - Preliminary No Growth 2 Days Meds Allergies and Active Meds Allergies Penicillins Allergy (Unknown, Verified 03/15/24 16:57) Unknown Reaction sulfamethoxazole Allergy (Unknown, Verified 03/15/24 16:57) hives Active Meds: Active Medications Generic Name Dose Route Start Last Admin Trade Name Freq PRN Reason Stop Dose Admin Acetaminophen 650 mg 03/24/24 19:07 Acetaminophen 325 Mg Tablet PO 03/24/25 19:06 Q6HR PRN Pain Scale 1 - 3 or fever Albuterol 2.5 mg 03/24/24 21:44 03/26/24 02:58 Albuterol Neb 2.5 Mg/3 Ml Vial.Neb INHALATION 03/24/25 21:43 2.5 mg Q3H PRN Administration Shortness Of Breath Albuterol/Ipratropium 3 ml 03/24/24 22:30 03/27/24 12:05 Ipratropium/Albuterol 0.5-3 Mg 3 Ml Ampul.Neb INHALATION 03/24/25 22:29 3 ml QID.RESP ANUSHA Administration Amantadine HCl 100 mg 03/25/24 09:00 03/27/24 08:18 Amantadine 100 Mg Capsule PO 03/25/25 08:59 100 mg DAILY ANUSHA Administration Amlodipine Besylate 5 mg 03/24/24 22:30 03/26/24 22:41 Amlodipine 5 Mg Tablet PO 03/24/25 22:29 5 mg HS ANUSHA Administration Aspirin 81 mg 03/25/24 09:00 03/27/24 08:18 Aspirin 81 Mg Tab.Chew PO 03/25/25 08:59 81 mg DAILY ANUSHA Administration Atorvastatin Calcium 40 mg 03/24/24 22:00 03/26/24 22:42 Atorvastatin 40 Mg Tablet PO 03/24/25 21:59 40 mg HS ANUSHA Administration Budesonide 0.5 mg 03/26/24 09:00 03/27/24 07:41 Budesonide 0.5 Mg/2 Ml Ampul.Neb INHALATION 03/26/25 08:59 0.5 mg BID ANUSHA Administration Furosemide 20 mg 03/27/24 08:00 03/27/24 08:18 Furosemide 40 Mg/4 Ml Vial IV-PUSH 03/27/25 07:59 20 mg BID@0800,1600 ANUSHA Administration Guaifenesin 600 mg 03/26/24 21:00 03/27/24 08:18 Guaifenesin 600 Mg Tab.Er.12h PO 03/26/25 20:59 600 mg BID ANUSHA Administration Magnesium Sulfate 2 gm in 50 mls @ 25 mls/hr 03/24/24 19:07 Magnesium Sulf 2gm-*Swfi* IV 03/24/25 19:06 DAILY PRN Magnesium Level < 1.7 Levetiracetam 250 mg 03/24/24 22:30 03/27/24 08:18 Levetiracetam 250 Mg Tablet PO 03/24/25 22:29 250 mg BID ANUSHA Administration Levothyroxine Sodium 150 mcg 03/25/24 06:30 03/27/24 05:45 Levothyroxine 150 Mcg Tablet PO 03/25/25 06:29 150 mcg DAILY.0630 ANUSHA Administration Loratadine 10 mg 03/25/24 09:00 03/27/24 08:18 Loratadine 10 Mg Tablet PO 03/25/25 08:59 10 mg DAILY ANUSHA Administration Lorazepam 0.5 mg 03/24/24 21:44 03/24/24 23:47 Lorazepam 0.5 Mg Tablet PO 09/20/24 21:43 0.5 mg BID PRN Administration anxiety Ondansetron HCl 4 mg 03/24/24 19:07 Ondansetron 4 Mg/2 Ml Vial IV-PUSH 03/24/25 19:06 Q6H PRN Nausea And Vomiting Oxcarbazepine 450 mg 03/25/24 16:45 03/27/24 08:18 Oxcarbazepine 150 Mg Tablet PO 03/25/25 16:44 450 mg TID ANUSHA Administration Potassium Chloride 40 meq 03/24/24 19:07 Potassium Chloride Er 20 Meq Tab.Er.Prt PO 03/24/25 19:06 DAILY PRN Hypokalemia Pregabalin 200 mg 03/25/24 09:00 03/27/24 08:18 Pregabalin 100 Mg Capsule PO 09/21/24 08:59 200 mg TID ANUSHA Administration Ropinirole HCl 1 mg 03/24/24 22:30 03/26/24 22:41 Ropinirole 1 Mg Tablet PO 03/24/25 22:29 1 mg QHS ANUSHA Administration Saccharomyces Boulardii 250 mg 03/25/24 08:00 03/27/24 08:18 Saccharomyces Boulardii 250 Mg Capsule PO 03/25/25 07:59 250 mg BID.WITH.MEALS ANUSHA Administration Sodium Chloride 0 ml 03/24/24 13:52 03/24/24 17:41 Sodium Chloride 0.9 % 10 Ml Syringe IV-PUSH 03/24/25 13:51 10 ml PRN PRN Administration Flush A&P - Hospitalist Assessment/Plan (1) Acute on chronic respiratory failure: Plan Documented By: Yaakov Garcia MD 03/27/24 1223 Signed By: <Electronically signed by Yaakov Garcia MD> 03/28/24 0000 [facility] Work Phone: 1(200) 938-595601-21-2025 Progress note Author Yaakov Garcia [facility] Note Date/Time March 27, 2024 2 :24am [facility] [address] [place] [address] Hospitalist Progress Note Signed Patient: Conchis Charles MR#: [id number] 826 : 1955 Acct:[id number] Age/Sex: 69 / F Adm Date: 5 Loc: Room: [address] [place] [address] Type: ADM IN Attending Dr: Yaakov Garcia MD Copies to: ~ Date of Service: 03/26/2024 Subjective Subjective Narrative: Assessment And Plan 68F PMH of COPD on chronic 5 L nasal cannula O2, DM, hypothyroidism, who presents with shortness of breath and increased swelling in her legs. Volume Overload Acute HFrEF BNP up to 1800 Echo shows EF 40%, mild diastolic dysfunction.moderate to severe degree of hypokinesis of the mid to distal anteroseptal wall apex and distal inferolateral wall. Regional motion abnormality suspicious of stress cardiomyopathy or apical ballooning syndrome IV Lasix to 20 mg BID Strict intake and output and daily weights cardiology recommendation appreciated Elevated troponin, Likely type II WA Higher suspicion for type II WA given the patient's fairly negative cath only 2 years ago. Discontinue heparin drip Acute on chronic hypoxic respiratory failure COPD Hypoxia at baseline, she has cough which also chronic for her The patient is afebrile with no leukocytosis . She required up to 6L of O2 . ABG shows no hypercapnia . metabolic acidosis appear to be chronic blood culture negative so far Septum Cx negative so far Chest CTA is negative for central to segmental branch pulmonary emboli. chronicemphysematous changes with scattered bronchial wall thickening, , small effusions, greatest in the right with bibasilar atelectasis. mild interstitial edema may suggest point of interstitial pulmonary edema. hiatal hernia. Hypoxia is likely due to HF rather to be due to COPD exacerbation continue breathing Tx LINTERVAL HPI: As Above, Pt resting in bed. feeling the same . Denies any chest pain. still having SOB , leg swelling is better Chronic diseases: Unless mentioned Above, Essential home medications have been continued. DVT Px: Addressed Disposition: To be determined Plan of care Discussed with: the medical team, the patient L Exam Physical Exam Vital Signs: Temp Pulse Resp BP Pulse Ox O2 Del Method O2 Flow Rate 36.8 C 69 20 130/63 96 Nasal Cannula 4 03/26/24 12:00 03/26/24 16:08 03/26/24 16:08 03/26/24 12:00 03/26/24 12:00 03/26/24 16:09 03/26/24 16:09 Narrative: GEN: NAD, Cooperative NECK: ? JVD LUNGS: diminished breathing sounds no wheezing or crackles . normal respiratoryeffort CV: nl S1 S2; no M/R/G ABD: Soft, ND, NT, + BS EXT: No peripheral edema, No calf muscle tenderness NEURO: ? FND. PSYCH: nl affect, AOx3 Objective Lab Results 03/26/24 05:20 03/26/24 05:20 Microbiology Results Microbiology 03/24/24 14:24 Blood - Left Antecubital Blood Culture - Preliminary No Growth 2 Days 03/24/24 14:31 Blood - Right Antecubital Blood Culture - Preliminary No Growth 2 Days 03/26/24 10:50 Sputum - Expectorated Gram Stain - Final Meds Allergies and Active Meds Allergies Penicillins Allergy (Unknown, Verified 03/15/24 16:57) Unknown Reaction sulfamethoxazole Allergy (Unknown, Verified 03/15/24 16:57) hives Active Meds: Active Medications Generic Name Dose Route Start Last Admin Trade Name Freq PRN Reason Stop Dose Admin Acetaminophen 650 mg 03/24/24 19:07 Acetaminophen 325 Mg Tablet PO 03/24/25 19:06 Q6HR PRN Pain Scale 1 - 3 or fever Albuterol 2.5 mg 03/24/24 21:44 03/26/24 02:58 Albuterol Neb 2.5 Mg/3 Ml Vial.Neb INHALATION 03/24/25 21:43 2.5 mg Q3H PRN Administration Shortness Of Breath Albuterol/Ipratropium 3 ml 03/24/24 22:30 03/26/24 16:07 Ipratropium/Albuterol 0.5-3 Mg 3 Ml Ampul.Neb INHALATION 03/24/25 22:29 3 ml QID.RESP ANUSHA Administration Amantadine HCl 100 mg 03/25/24 09:00 03/26/24 10:40 Amantadine 100 Mg Capsule PO 03/25/25 08:59 100 mg DAILY ANUSHA Administration Amlodipine Besylate 5 mg 03/24/24 22:30 03/25/24 21:57 Amlodipine 5 Mg Tablet PO 03/24/25 22:29 5 mg HS ANUSHA Administration Aspirin 81 mg 03/25/24 09:00 03/26/24 10:39 Aspirin 81 Mg Tab.Chew PO 03/25/25 08:59 81 mg DAILY ANUSHA Administration Atorvastatin Calcium 40 mg 03/24/24 22:00 03/25/24 21:57 Atorvastatin 40 Mg Tablet PO 03/24/25 21:59 40 mg HS ANUSHA Administration Budesonide 0.5 mg 03/26/24 09:00 03/26/24 08:36 Budesonide 0.5 Mg/2 Ml Ampul.Neb INHALATION 03/26/25 08:59 0.5 mg BID ANUSHA Administration Furosemide 40 mg 03/25/24 08:00 03/26/24 10:40 Furosemide 40 Mg/4 Ml Vial IV-PUSH 03/25/25 07:59 40 mg BID@0800,1600 ANUSHA Administration Heparin Sodium (Porcine) 2,000 unit 03/24/24 16:29 Heparin *Protocol Bolus* 5,000 Unit/Ml Vial IV-PUSH 03/24/25 16:28 PROTOCOL PRN Anti-Xa < 0.1 or aPTT < 40 Heparin Sodium/Sodium Chloride 25,000 unit in 250 mls @ 9.98 mls/hr 03/24/24 16:30 03/26/24 10:42 Heparin IV 03/24/25 16:29 15.7 unit/kg/hr .Q24H ANUSHA 13.39 mls/hr Titration Protocol 11.7 UNIT/KG/HR Magnesium Sulfate 2 gm in 50 mls @ 25 mls/hr 03/24/24 19:07 Magnesium Sulf 2gm-*Swfi* IV 03/24/25 19:06 DAILY PRN Magnesium Level < 1.7 Levetiracetam 250 mg 03/24/24 22:30 03/26/24 10:39 Levetiracetam 250 Mg Tablet PO 03/24/25 22:29 250 mg BID ANUSHA Administration Levothyroxine Sodium 150 mcg 03/25/24 06:30 03/26/24 05:49 Levothyroxine 150 Mcg Tablet PO 03/25/25 06:29 150 mcg DAILY.0630 ANUSHA Administration Loratadine 10 mg 03/25/24 09:00 03/26/24 10:40 Loratadine 10 Mg Tablet PO 03/25/25 08:59 10 mg DAILY ANUSHA Administration Lorazepam 0.5 mg 03/24/24 21:44 03/24/24 23:47 Lorazepam 0.5 Mg Tablet PO 09/20/24 21:43 0.5 mg BID PRN Administration anxiety Miscellaneous Information 1 each 03/24/24 16:29 Consult To Pharmacy MISCELLANE 03/24/25 16:28 .PHACONSULT PRN ZEdson.Pharmacy Consult Protocol Ondansetron HCl 4 mg 03/24/24 19:07 Ondansetron 4 Mg/2 Ml Vial IV-PUSH 03/24/25 19:06 Q6H PRN Nausea And Vomiting Oxcarbazepine 450 mg 03/25/24 16:45 03/26/24 13:50 Oxcarbazepine 150 Mg Tablet PO 03/25/25 16:44 450 mg TID ANUSHA Administration Potassium Chloride 40 meq 03/24/24 19:07 Potassium Chloride Er 20 Meq Tab.Er.Prt PO 03/24/25 19:06 DAILY PRN Hypokalemia Pregabalin 200 mg 03/25/24 09:00 03/26/24 13:50 Pregabalin 100 Mg Capsule PO 09/21/24 08:59 200 mg TID ANUSHA Administration Ropinirole HCl 1 mg 03/24/24 22:30 03/25/24 21:57 Ropinirole 1 Mg Tablet PO 03/24/25 22:29 1 mg QHS ANUSHA Administration Saccharomyces Boulardii 250 mg 03/25/24 08:00 03/26/24 10:40 Saccharomyces Boulardii 250 Mg Capsule PO 03/25/25 07:59 250 mg BID.WITH.MEALS ANUSHA Administration Sodium Chloride 0 ml 03/24/24 13:52 03/24/24 17:41 Sodium Chloride 0.9 % 10 Ml Syringe IV-PUSH 01/18/26 13:51 10 ml PRN PRN Administration Flush A&P - Hospitalist Assessment/Plan (1) Acute on chronic respiratory failure: Plan Documented By: Yaakov Garcia MD 03/26/24 1630 Signed By: <Electronically signed by Yaakov Garcia MD> 03/27/24 0224 [facility] Work Phone: 1(401) 632-722301-20-2025 Progress note Author Mejia Aaron [facility] Note Date/Time 2024 1 0:36pm [facility] [address] [place] [address] Hospitalist Progress Note Signed Patient: Conchis Charles MR#: [id number] : 1955 Acct:[id number] Age/Sex: 69 / F Adm Date: 5 Loc: Room: [address] [place] [address] Type: ADM IN Attending Dr: Mejia Aaron MD Copies to: ~ Date of Service: 2024 Subjective Subjective Narrative: No acute events noted overnight. Patient does remain on 6 L nasal cannula oxygen. Breathing reasonably comfortably at this time. Denies any fever/chills, chest pain, nausea/vomiting or other symptoms. Exam Physical Exam Vital Signs: Temp Pulse Resp BP Pulse Ox O2 Del Method O2 Flow Rate 97.7 F 65 18 168/70 H 100 Nasal Cannula 5 03/25/24 20:00 03/25/24 20:00 03/25/24 20:00 03/25/24 20:00 03/25/24 20:00 03/25/24 20:00 03/25/24 20:00 Narrative: Constitutional: Elderly, obese WF, resting in chair at bedside, breathing reasonably comfortably HEENT: Moist mucous membranes, neck supple Cardiovascular: RRR, no M/R/G, normal S1 and S2, no JVD Respiratory: Lungs clear to auscultation bilaterally, no wheezes, rales or rhonchi. Extremely diminished throughout GI: Soft, NTND, normoactive bowel sounds : Deferred Neuro: AAO x3, no focal deficits. CN III-XII grossly intact, Strength 5/5 throughout Extremities: No clubbing, cyanosis or edema Psych: Patient calm, cooperative and conversant Objective Lab Results 03/25/24 05:17 03/25/24 05:17 Microbiology Results Microbiology 03/24/24 14:31 Blood - Right Antecubital Blood Culture - Preliminary No Growth 1 Day 03/24/24 14:24 Blood - Left Antecubital Blood Culture - Preliminary No Growth 1 Day Meds Allergies and Active Meds Allergies Penicillins Allergy (Unknown, Verified 03/15/24 16:57) Unknown Reaction sulfamethoxazole Allergy (Unknown, Verified 03/15/24 16:57) hives Active Meds: Active Medications Generic Name Dose Route Start Last Admin Trade Name Freq PRN Reason Stop Dose Admin Acetaminophen 650 mg 03/24/24 19:07 Acetaminophen 325 Mg Tablet PO 03/24/25 19:06 Q6HR PRN Pain Scale 1 - 3 or fever Albuterol 2.5 mg 03/24/24 21:44 Albuterol Neb 2.5 Mg/3 Ml Vial.Neb INHALATION 03/24/25 21:43 Q3H PRN Shortness Of Breath Albuterol/Ipratropium 3 ml 03/24/24 22:30 03/25/24 19:02 Ipratropium/Albuterol 0.5-3 Mg 3 Ml Ampul.Neb INHALATION 03/24/25 22:29 3 ml QID.RESP ANUSHA Administration Amantadine HCl 100 mg 03/25/24 09:00 03/25/24 09:52 Amantadine 100 Mg Capsule PO 03/25/25 08:59 100 mg DAILY ANUSHA Administration Amlodipine Besylate 5 mg 03/24/24 22:30 03/25/24 21:57 Amlodipine 5 Mg Tablet PO 03/24/25 22:29 5 mg HS ANUSHA Administration Aspirin 81 mg 03/25/24 09:00 03/25/24 09:52 Aspirin 81 Mg Tab.Chew PO 03/25/25 08:59 81 mg DAILY ANUSHA Administration Atorvastatin Calcium 40 mg 03/24/24 22:00 03/25/24 21:57 Atorvastatin 40 Mg Tablet PO 03/24/25 21:59 40 mg HS ANUSHA Administration Furosemide 40 mg 03/25/24 08:00 03/25/24 16:42 Furosemide 40 Mg/4 Ml Vial IV-PUSH 03/25/25 07:59 40 mg BID@0800,1600 ANUSHA Administration Heparin Sodium (Porcine) 2,000 unit 03/24/24 16:29 Heparin *Protocol Bolus* 5,000 Unit/Ml Vial IV-PUSH 03/24/25 16:28 PROTOCOL PRN Anti-Xa < 0.1 or aPTT < 40 Heparin Sodium/Sodium Chloride 25,000 unit in 250 mls @ 9.98 mls/hr 03/24/24 16:30 03/25/24 19:40 Heparin IV 03/24/25 16:29 12.7 unit/kg/hr .Q24H ANUSHA 10.83 mls/hr Administration Protocol 11.7 UNIT/KG/HR Magnesium Sulfate 2 gm in 50 mls @ 25 mls/hr 03/24/24 19:07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 (21.0-31.0) H 03/24/24 14:31 Anion Gap 8.3 mEq/L (6.0-15.0) 03/24/24 14:31 BUN 12 mg/dL (7-25) 03/24/24 14:31 Creatinine 0.94 mg/dL (0.60-1.20) 03/24/24 14:31 Est GFR (CKD-EPI) > 60.0 mL/Min 03/24/24 14:31 Glucose 100 mg/dL (70-100) 03/24/24 14:31 Calcium 8.3 mg/dL (8.6-10.3) L 03/24/24 14:31 Total Bilirubin 0.5 mg/dl (0.3-1.0) 03/24/24 14:31 AST 27 U/L (13-39) 03/24/24 14:31 ALT 27 U/L (7-52) 03/24/24 14:31 Alkaline Phosphatase 135 U/L (34-104) H 03/24/24 14:31 Total Creatine Kinase 167 U/L (30-223) 03/24/24 14:31 Troponin I High Sens 1245 ng/L (0-15) H* 03/24/24 14:31 B-Natriuretic Peptide 1865.0 pg/mL (5-100) H 03/24/24 14:31 Total Protein 6.4 gm/dL (6.4-8.9) 03/24/24 14:31 Albumin 3.7 gm/dL (3.5-5.7) 03/24/24 14:31 Globulin 2.7 gm/dL 03/24/24 14:31 Albumin/Globulin Ratio 1.4 03/24/24 14:31 COVID-19 Clin Com Not detected (Not Detecte) 03/24/24 14:16 Microbiology Results Micro: Microbiology - Results from entire visit 03/24/24 14:16 Nasopharyngeal Respiratory Panel (PCR) - Final ABG Interpretation ABG results: 03/24/24 14:04 ABG pH 7.46 H ABG pCO2 44.6 ABG pO2 76.9 L ABG HCO3 30.8 H ABG Total CO2 32.2 H ABG O2 Saturation 95.9 ABG O2 Content 7.1 ABG Base Excess 6.2 H Assessment & Plan Assessment/Plan (1) Acute on chronic respiratory failure: Plan Elevated troponin Acute coronary syndrome versus type II WA Volume overload Patient presents with T wave inversions in inferior lateral leads. She has beenat longterm over the past 5 days after recent hospitalization here and has been so hypoxic that she has had to complete her physical therapy in her room as opposed to the separate PT workspace at the facility. Lasix was stoppedduring last hospitalization due to UMM. She did have cardiac catheterization [id number] which showed only very minimal coronary artery disease. She also had admissions in the past with her pulmonary issues causing elevated troponins. I suspect that patient had her furosemide stopped during last hospitalization, andthis may have put her into a volume overloaded and more hypoxic state now. She is demonstrated as 5 kg above previous weight chest few days ago. -Diuresis with IV Lasix twice daily 40 mg -Consult cardiology for their assessment, trend troponin and EKGs -Monitor on progressive care unit -Strict intake and output and daily weights Acute on chronic hypoxic respiratory failure COPD on chronic 5 L nasal cannula O2 Likely OHS Respiratory status already somewhat improved on the time of my assessment. Patient had received 1 dose of IV Lasix. Story does not sound quite consistent with exacerbation of her COPD. Sounds more consistent with volume overload. Chest CT does demonstrate evidence of interstitial edema -Diuresis as above -Wean O2 back down to baseline if tolerated -Hold on further antibiotic therapy at this time; focus on attempting to make patient more euvolemic Other chronic medical conditions noted below, continue home regimens unless otherwise specified: DM type II Obesity Hypothyroidism Previous bladder sling operation and recent hospitalization for urinary retention CODE STATUS: Full code IP vs OBS Justification Based on differential dx, clinical care plan, and risk of adverse events, if untreated, in my clinical judgement this patient requires an acute care setting as: INPATIENT because of an expectation of an over 2 midnight stay. Estimated length of stay (# of days): 3 Documented By: Mejia Aaron MD 5 [id number] Signed By: <Electronically signed by Mejia Aaron MD> 03/24/24 2142 [facility] Work Phone: [phone] 105-814201-18-2025 [facility] Work Phone: [phone] 298-192001-16-2025 Hospital Discharge instructions Patient Education 03/22/2024 14:15:20 Acute Urinary Retention, Female Acute Urinary Retention, Female Acute urinary retention is a condition in which a person is unable to pass urine or can only pass alittle urine. This condition can happen suddenly and last for a short time. If left untreated, it can become long-term (chronic) and result in kidney damage or other serious complications. What are the causes? This condition may be caused by: Obstruction or narrowing of the tube that drains the bladder (urethra). This may be caused by surgery, problems with nearby organs, or injury to the bladder or urethra. Problems with the nerves in the bladder. Pelvic organ prolapse. Tumors in the area of the pelvis, bladder, or urethra. Vaginal childbirth. Bladder or urinary tract infection. Constipation. Certain medicines. What increases the risk? This condition is more likely to develop in women over age 50. Other chronic health conditions can increase the risk of acute urinary retention. These include: Diseases such as multiple sclerosis. Spinal cord injuries. Diabetes. Degenerative cognitive conditions, such as delirium or dementia. Psychological conditions. A woman may hold her urine due to trauma or because she does not want to use the bathroom. History of preexisting urinary retention. History of prior pelvic surgery, incontinence surgery, or radical pelvic surgery. What are the signs or symptoms? Symptoms of this condition include: Trouble urinating. Pain in the lower abdomen. How is this diagnosed? This condition is diagnosed based on a physical exam and your medical history. You may also have other tests, including: An ultrasound of the bladder or kidneys or both. Blood tests. A urine analysis. Additional tests may be needed, such as a CT scan, MRI, and kidney or bladder function tests. How is this treated? Treatment for this condition may include: Medicines. Placing a thin, sterile tube (catheter) into the bladder to drain urine out of the body. This is called an indwelling urinary catheter. After it is inserted, the catheter is held in place with a small balloon that is filled with sterile water. Urine drains from the catheter into a collection bag outside of the body. Behavioral therapy. Treatment for other conditions. If needed, you may be treated in the hospital for kidney function problems or to manage other complications. Follow these instructions at home: Medicines Take tdmq-hqf-fatbnox and prescription medicines only as told by your health care provider. Avoid certain medicines, such as decongestants, antihistamines, and some prescription medicines. Do not take any medicine unless your health care provider approves. If you were prescribed an antibiotic medicine, take it as told by your health care provider. Do notstop using the antibiotic even if you start to feel better. General instructions Do not use any products that contain nicotine or tobacco. These products include cigarettes, chewing tobacco, and vaping devices, such as e-cigarettes. If you need help quitting, ask your health careprovider. Drink enough fluid to keep your urine pale yellow. If you have an indwelling urinary catheter, follow the instructions from your health care provider. Monitor any changes in your symptoms. Tell your health care provider about any changes. If instructed, monitor your blood pressure at home. Report changes as told by your health care provider. Keep all follow-up visits. This is important. Contact a health care provider if: You have uncomfortable bladder contractions that you cannot control (spasms). You leak urine with the spasms. Get help right away if: You have chills or a fever. You have blood in your urine. You have a catheter and the following happens: ?Your catheter stops draining urine. ?Your catheter falls out. Summary Acute urinary retention is a condition in which a person is unable to pass urine or can only pass alittle urine. If left untreated, this can result in kidney damage or other serious complications. One cause of this condition may be obstruction or narrowing of the tube that drains the bladder (urethra). This may be caused by surgery, problems with nearby organs, or injury to the bladder or urethra. Treatment may include medicines and placement of an indwelling urinary catheter. Monitor any changes in your symptoms. Tell your health care provider about any changes. This information is not intended to replace advice given to you by your health care provider. Make sure you discuss any questions you have with your health care provider. Document Revised: 11/12/2020 Document Reviewed: 11/12/2020 [employer] Patient Education 2023 [employer]. Follow Up Care 03/21/2024 15:25:20 With:MANUELA SESAY, KAELYN Cantrell, URL Address: [address] [place] [address] Business (1) When: Unknown Comments:pending results of imaging/testing, will call with next steps [facility] 01-16-2025 NotePatient Education Obstetrics and Gynecology Acute Urinary Retention, Female Acute urinary retention is a condition in which a person is unable to pass urine or can only pass alittle urine. This condition can happen suddenly and last for a short time. If left untreated, it can become long-term (chronic) and result in kidney damage or other serious complications. What are the causes? This condition may be caused by: ??? Obstruction or narrowing of the tube that drains the bladder (urethra). This may be caused by surgery, problems with nearby organs, or injury to the bladder or urethra. ??? Problems with the nerves in the bladder. ??? Pelvic organ prolapse. ??? Tumors in the area of the pelvis, bladder, or urethra. ??? Vaginal childbirth. ??? Bladder or urinary tract infection. ??? Constipation. ??? Certain medicines. What increases the risk? This condition is more likely to develop in women over age 50. Other chronic health conditions can increase the risk of acute urinary retention. These include: ??? Diseases such as multiple sclerosis. ??? Spinal cord injuries. ??? Diabetes. ??? Degenerative cognitive conditions, such as delirium or dementia. ??? Psychological conditions. A woman may hold her urine due to trauma or because she does not wantto use the bathroom. ??? History of preexisting urinary retention. ??? History of prior pelvic surgery, incontinence surgery, or radical pelvic surgery. What are the signs or symptoms? Symptoms of this condition include: ??? Trouble urinating. ??? Pain in the lower abdomen. How is this diagnosed? This condition is diagnosed based on a physical exam and your medical history. You may also have other tests, including: ??? An ultrasound of the bladder or kidneys or both. ??? Blood tests. ??? A urine analysis. ??? Additional tests may be needed, such as a CT scan, MRI, and kidney or bladder function tests. How is this treated? Treatment for this condition may include: ??? Medicines. ??? Placing a thin, sterile tube (catheter) into the bladder to drain urine out of the body. This is called an indwelling urinary catheter. After it is inserted, the catheter is held in place with a small balloon that is filled with sterile water. Urine drains from the catheter into a collection bag outside of the body. ??? Behavioral therapy. ??? Treatment for other conditions. If needed, you may be treated in the hospital for kidney function problems or to manage other complications. Follow these instructions at home: Medicines ??? Take dtht-kda-ocqqwtc and prescription medicines only as told by your health care provider. Avoid certain medicines, such as decongestants, antihistamines, and some prescription medicines. Do nottake any medicine unless your health care provider approves. ??? If you were prescribed an antibiotic medicine, take it as told by your health care provider. Donot stop using the antibiotic even if you start to feel better. General instructions ??? Do not use any products that contain nicotine or tobacco. These products include cigarettes, chewing tobacco, and vaping devices, such as e-cigarettes. If you need help quitting, ask your health care provider. ??? Drink enough fluid to keep your urine pale yellow. ??? If you have an indwelling urinary catheter, follow the instructions from your health care provider. ??? Monitor any changes in your symptoms. Tell your health care provider about any changes. ??? If instructed, monitor your blood pressure at home. Report changes as told by your health care provider. ??? Keep all follow-up visits. This is important. Contact a health care provider if: ??? You have uncomfortable bladder contractions that you cannot control (spasms). ??? You leak urine with the spasms. Get help right away if: ??? You have chills or a fever. ??? You have blood in your urine. ??? You have a catheter and the following happens: ? Your catheter stops draining urine. ? Your catheter falls out. Summary ??? Acute urinary retention is a condition in which a person is unable to pass urine or can only pass a little urine. If left untreated, this can result in kidney damage or other serious complications. ??? One cause of this condition may be obstruction or narrowing of the tube that drains the bladder(urethra). This may be caused by surgery, problems with nearby organs, or injury to the bladder or urethra. ??? Treatment may include medicines and placement of an indwelling urinary catheter. ??? Monitor any changes in your symptoms. Tell your health care provider about any changes. This information is not intended to replace advice given to you by your health care provider. Make sure you discuss any questions you have with your health care provider. Document Revised: 11/12/2020 Document Reviewed: 11/12/2020 [employer] Patient Education ? 2023 [employer] 03-18-2024 Hospital Discharge instructions Additional Instructions Shelter Facility to manage care: - Full code - PT/OT eval and treat - Routine vital signs - Oxygen at 4-5L per nasal cannula, titrate as needed to keep pox > 90% - Maintain indwelling hanson catheter to drainage or leg bag, routine care per protocol dx acute urinary retention - will need Urology follow-up within 3-[address] Carlson - Daily weight in AM - Built up utensils with every meal [facility] Work Phone: 1(450) 889-511701-11-2025 Progress note Author Jus Perla [facility] Note Date/Time March 17, 2024 9 :51pm [facility] [address] [place], [place] [id number] Hospitalist Progress Note Signed Patient: Conchis Charles MR#: [id number] 826 : 1955 Acct:[id number] Age/Sex: 68 / F Adm Date: 5 Loc: Room: [address] [place] [address] Type: ADM INOo Attending Dr: Jus Perla MD Copies to: ~ Date of Service: 03/17/2024 Subjective Subjective Narrative: Hanson catheter remains in place, no complaints at this time, open to placement to SNF. Exam Physical Exam Vital Signs: Temp Pulse Resp BP Pulse Ox O2 Del Method O2 Flow Rate 98.5 F 68 18 125/67 95 Nasal Cannula 5 03/17/24 08:34 03/17/24 08:51 03/17/24 08:51 03/17/24 08:34 03/17/24 08:34 03/17/24 08:34 03/17/24 08:34 Narrative: General: cooperative and comfortable Orientation: alert, awake and oriented x3 Head: normal to inspection Neck: normal visual inspection Cardio: no JVD, regular rate, regular rhythm Chest palpation & inspection: normal inspection of the chest Resp Effort & Inspection: normal respiratory effort Abd: soft, non-tender, non-distended, hanson catheter in place Extremities: Warm well perfused, no edema Objective Lab Results 03/16/24 05:11 03/16/24 08:34 Meds Allergies and Active Meds Allergies Penicillins Allergy (Unknown, Verified 03/15/24 16:57) Unknown Reaction sulfamethoxazole Allergy (Unknown, Verified 03/15/24 16:57) hives Active Meds: Active Medications Generic Name Dose Route Start Last Admin Trade Name Freq PRN Reason Stop Dose Admin Acetaminophen 650 mg 03/15/24 21:53 Acetaminophen 325 Mg Tablet PO 03/15/25 21:52 Q4H PRN Pain Scale 1 - 3 or fever Albuterol 2.5 mg 03/15/24 21:53 Albuterol Neb 2.5 Mg/3 Ml Vial.Neb INHALATION 03/15/25 21:52 Q3H PRN Cough/Wheeze Albuterol/Ipratropium 3 ml 03/16/24 08:00 03/17/24 08:49 Ipratropium/Albuterol 0.5-3 Mg 3 Ml Ampul.Neb INHALATION 03/16/25 07:59 3 ml QID.RESP ANUSHA Administration Amantadine HCl 100 mg 03/16/24 09:00 03/17/24 08:38 Amantadine 100 Mg Capsule PO 03/16/25 08:59 100 mg DAILY ANUSHA Administration Amlodipine Besylate 5 mg 03/16/24 01:30 03/16/24 22:01 Amlodipine 5 Mg Tablet PO 03/16/25 01:29 5 mg HS ANUSHA Administration Atorvastatin Calcium 40 mg 03/16/24 01:30 03/16/24 22:02 Atorvastatin 40 Mg Tablet PO 03/16/25 01:29 40 mg HS ANUSHA Administration Cyclobenzaprine HCl 10 mg 03/16/24 00:44 03/16/24 01:38 Cyclobenzaprine 10 Mg Tablet PO 03/16/25 00:43 10 mg QHS PRN Administration Spasms Enoxaparin Sodium 40 mg 03/16/24 10:00 03/16/24 10:28 Enoxaparin 40 Mg/0.4 Ml Syringe SUBCUT 03/16/25 09:59 40 mg DAILY@10 ANUSHA Administration Levetiracetam 250 mg 03/16/24 01:30 03/17/24 08:38 Levetiracetam 250 Mg Tablet PO 03/16/25 01:29 250 mg BID ANUSHA Administration Levothyroxine Sodium 150 mcg 03/16/24 06:30 03/17/24 06:04 Levothyroxine 150 Mcg Tablet PO 03/16/25 06:29 150 mcg DAILY.0630 ANUSHA Administration Lorazepam 0.5 mg 03/16/24 00:45 Lorazepam 0.5 Mg Tablet PO 09/12/24 00:44 DAILY PRN anxiety Oxcarbazepine 450 mg 03/16/24 01:30 03/17/24 08:38 Oxcarbazepine 150 Mg Tablet PO 03/16/25 01:29 450 mg TID ANUSHA Administration Potassium Chloride 20 meq 03/15/24 21:53 Potassium Chloride Er 20 Meq Tab.Er.Prt PO 03/15/25 21:52 DAILY PRN Hypokalemia Potassium Chloride 40 meq 03/15/24 21:53 Potassium Chloride Er 20 Meq Tab.Er.Prt PO 03/15/25 21:52 DAILY PRN Hypokalemia Prednisone 10 mg 03/16/24 09:00 03/17/24 08:38 Prednisone 10 Mg Tablet PO 03/18/24 08:59 10 mg DAILY ANUSHA Administration Pregabalin 100 mg 03/16/24 01:30 03/17/24 08:38 Pregabalin 100 Mg Capsule PO 09/12/24 01:29 100 mg TID ANUSHA Administration Ropinirole HCl 1 mg 03/16/24 01:30 03/16/24 22:02 Ropinirole 1 Mg Tablet PO 03/16/25 01:29 1 mg QHS ANUSHA Administration Sodium Chloride 0 ml 03/15/24 16:55 Sodium Chloride 0.9 % 10 Ml Syringe IV-PUSH 03/15/25 16:54 PRN PRN Flush A&P - Hospitalist Assessment/Plan (1) Bladder obstruction: (2) Inability to walk: (3) Smoker: (4) Sleep apnea: (5) COPD (chronic obstructive pulmonary disease): (6) Diabetes: (7) Hypothyroidism: (8) Chronic hypoxic respiratory failure: Plan Assessment: Acute bladder retention/inability to void urine. The etiology of the retention of urine in her bladder somewhat unclear. Recent E. coli complicated urinary tract infection, diagnosed and treated beginning 02/29/2024; considered to be fully treated Long-term problems: COPD. Chronic hypoxic respiratory failure on 4 to 5 L nasal cannula at baseline Diabetes mellitus type 2, with good control with hemoglobin A1c of 5.8, Tobacco use disorder. Hypothyroidism. Sleep apnea. Plan: Placement of patient in observation status. Consult to urology remains in place given remaining inpatient for placement She is finishing a prednisone taper and needs about 2 more days of 10 mg and then she has done with her prednisone taper for her recent COPD exacerbation. Diet: regular Daily Labs: CBC, BMP Lines/Drains: PIV, hanson d1 DVT ppx: Lovenox Code status: Full Status: observation/inpatient --> TBD Discussed with patient at bedside. All questions answered. In agreement with theabove plan. Jus Perla MD Internal Medicine Hospitalist Attending Physician Documented By: Jus Perla MD 03/17/24 0977 Signed By: <Electronically signed by Jus Perla MD> 03/17/24 3531 [facility] Work Phone: 1(614) 164-711801-11-[address] [address] Hospitalist Progress Note Signed Patient: Conchis Charles MR#: [id number] 826 : 1955 Acct:[id number] Age/Sex: 68 / F Adm Date: 5 Loc: 3T Room: [address] [place] [address] Type: ADM INOo Attending Dr: Jus Perla MD Copies to: ~ Date of Service: 03/17/2024 Subjective Subjective Narrative: Hanson catheter remains in place, no complaints at this time, open to placement to SNF. Exam Physical Exam Vital Signs: Temp Pulse Resp BP Pulse Ox O2 Del Method O2 Flow Rate 98.5 F 68 18 125/67 95 Nasal Cannula 5 03/17/24 08:34 03/17/24 08:51 03/17/24 08:51 03/17/24 08:34 03/17/24 08:34 03/17/24 08:34 03/17/24 08:34 Narrative: General: cooperative and comfortable Orientation: alert, awake and oriented x3 Head: normal to inspection Neck: normal visual inspection Cardio: no JVD, regular rate, regular rhythm Chest palpation & inspection: normal inspection of the chest Resp Effort & Inspection: normal respiratory effort Abd: soft, non-tender, non-distended, hanson catheter in place Extremities: Warm well perfused, no edema Objective Lab Results 03/16/24 05:11 03/16/24 08:34 Meds Allergies and Active Meds Allergies Penicillins Allergy (Unknown, Verified 03/15/24 16:57) Unknown Reaction sulfamethoxazole Allergy (Unknown, Verified 03/15/24 16:57) hives Active Meds: Active Medications Generic Name Dose Route Start Last Admin Trade Name Freq PRN Reason Stop Dose Admin Acetaminophen 650 mg 03/15/24 21:53 Acetaminophen 325 Mg Tablet PO 03/15/25 21:52 Q4H PRN Pain Scale 1 - 3 or fever Albuterol 2.5 mg 03/15/24 21:53 Albuterol Neb 2.5 Mg/3 Ml Vial.Neb INHALATION 03/15/25 21:52 Q3H PRN Cough/Wheeze Albuterol/Ipratropium 3 ml 03/16/24 08:00 03/17/24 08:49 Ipratropium/Albuterol 0.5-3 Mg 3 Ml Ampul.Neb INHALATION 03/16/25 07:59 3 ml QID.RESP ANUSHA Administration Amantadine HCl 100 mg 03/16/24 09:00 03/17/24 08:38 Amantadine 100 Mg Capsule PO 03/16/25 08:59 100 mg DAILY ANUSHA Administration Amlodipine Besylate 5 mg 03/16/24 01:30 03/16/24 22:01 Amlodipine 5 Mg Tablet PO 03/16/25 01:29 5 mg HS ANUSHA Administration Atorvastatin Calcium 40 mg 03/16/24 01:30 03/16/24 22:02 Atorvastatin 40 Mg Tablet PO 03/16/25 01:29 40 mg HS ANUSHA Administration Cyclobenzaprine HCl 10 mg 03/16/24 00:44 03/16/24 01:38 Cyclobenzaprine 10 Mg Tablet PO 03/16/25 00:43 10 mg QHS PRN Administration Spasms Enoxaparin Sodium 40 mg 03/16/24 10:00 03/16/24 10:28 Enoxaparin 40 Mg/0.4 Ml Syringe SUBCUT 03/16/25 09:59 40 mg DAILY@10 ANUSHA Administration Levetiracetam 250 mg 03/16/24 01:30 03/17/24 08:38 Levetiracetam 250 Mg Tablet PO 03/16/25 01:29 250 mg BID ANUSHA Administration Levothyroxine Sodium 150 mcg 03/16/24 06:30 03/17/24 06:04 Levothyroxine 150 Mcg Tablet PO 03/16/25 06:29 150 mcg DAILY.0630 ANUSHA Administration Lorazepam 0.5 mg 03/16/24 00:45 Lorazepam 0.5 Mg Tablet PO 09/12/24 00:44 DAILY PRN anxiety Oxcarbazepine 450 mg 03/16/24 01:30 03/17/24 08:38 Oxcarbazepine 150 Mg Tablet PO 03/16/25 01:29 450 mg TID ANUSHA Administration Potassium Chloride 20 meq 03/15/24 21:53 Potassium Chloride Er 20 Meq Tab.Er.Prt PO 03/15/25 21:52 DAILY PRN Hypokalemia Potassium Chloride 40 meq 03/15/24 21:53 Potassium Chloride Er 20 Meq Tab.Er.Prt PO 03/15/25 21:52 DAILY PRN Hypokalemia Prednisone 10 mg 03/16/24 09:00 03/17/24 08:38 Prednisone 10 Mg Tablet PO 03/18/24 08:59 10 mg DAILY ANUSHA Administration Pregabalin 100 mg 03/16/24 01:30 03/17/24 08:38 Pregabalin 100 Mg Capsule PO 09/12/24 01:29 100 mg TID ANUSHA Administration Ropinirole HCl 1 mg 03/16/24 01:30 03/16/24 22:02 Ropinirole 1 Mg Tablet PO 03/16/25 01:29 1 mg QHS ANUSHA Administration Sodium Chloride 0 ml 03/15/24 16:55 Sodium Chloride 0.9 % 10 Ml Syringe IV-PUSH 03/15/25 16:54 PRN PRN Flush A&P - Hospitalist Assessment/Plan (1) Bladder obstruction: (2) Inability to walk: (3) Smoker: (4) Sleep apnea: (5) COPD (chronic obstructive pulmonary disease): (6) Diabetes: (7) Hypothyroidism: (8) Chronic hypoxic respiratory failure: Plan Assessment: Acute bladder retention/inability to void urine. The etiology of the retention of urine in her bladder somewhat unclear. Recent E. coli complicated urinary tract infection, diagnosed and treated beginning 02/29/2024; considered to be fully treated Long-term problems: COPD. Chronic hypoxic respiratory failure on 4 to 5 L nasal cannula at baseline Diabetes mellitus type 2, with good control with hemoglobin A1c of 5.8, Tobacco use disorder. Hypothyroidism. Sleep apnea. Plan: Placement of patient in observation status. Consult to urology remains in place given remaining inpatient for placement She is finishing a prednisone taper and needs about 2 more days of 10 mg and then she has done withher prednisone taper for her recent COPD exacerbation. Diet: regular Daily Labs: CBC, BMP Lines/Drains: PIV, hanson d1 DVT ppx: Lovenox Code status: Full Status: observation/inpatient --> TBD Discussed with patient at bedside. All questions answered. In agreement with theabove plan. Jus Perla MD Internal Medicine Hospitalist Attending Physician Documented By: Jus Perla MD 03/17/24 0959 Signed By: 03/17/24 2151 [facility]01-10-2025 Progress note Author Jus Perla [facility] Note Date/Time March 16, 2024 4 :13pm [facility] [address] [place] [address] Hospitalist Progress Note Signed Patient: Conchis Charles MR#: [id number] 826 : 1955 Acct:[id number] Age/Sex: 68 / F Adm Date: 5 Loc: 3T Room: [address] [place] [address] Type: ADM INOo Attending Dr: Jus Perla MD Copies to: ~ Date of Service: 03/16/2024 Subjective Subjective Narrative: Admitted overnight for urinary retention, feels improved at present, no complaints, no shortness of breath. Exam Physical Exam Vital Signs: Temp Pulse Resp BP Pulse Ox O2 Del Method O2 Flow Rate 97.7 F 53 L 18 118/66 100 Nasal Cannula 5 03/16/24 08:00 03/16/24 08:00 03/16/24 08:00 03/16/24 08:00 03/16/24 08:00 03/16/24 08:27 03/16/24 08:27 Narrative: General: cooperative and comfortable Orientation: alert, awake and oriented x3 Head: normal to inspection Neck: normal visual inspection Cardio: no JVD, regular rate, regular rhythm Chest palpation & inspection: normal inspection of the chest Resp Effort & Inspection: normal respiratory effort Abd: soft, non-tender, non-distended, hanson catheter in place Extremities: Warm well perfused, no edema Objective Lab Results 03/16/24 05:11 03/16/24 08:34 Meds Allergies and Active Meds Allergies Penicillins Allergy (Unknown, Verified 03/15/24 16:57) Unknown Reaction sulfamethoxazole Allergy (Unknown, Verified 03/15/24 16:57) hives Active Meds: Active Medications Generic Name Dose Route Start Last Admin Trade Name Freq PRN Reason Stop Dose Admin Acetaminophen 650 mg 03/15/24 21:53 Acetaminophen 325 Mg Tablet PO 03/15/25 21:52 Q4H PRN Pain Scale 1 - 3 or fever Albuterol 2.5 mg 03/15/24 21:53 Albuterol Neb 2.5 Mg/3 Ml Vial.Neb INHALATION 03/15/25 21:52 Q3H PRN Cough/Wheeze Albuterol/Ipratropium 3 ml 03/16/24 08:00 03/16/24 09:26 Ipratropium/Albuterol 0.5-3 Mg 3 Ml Ampul.Neb INHALATION 03/16/25 07:59 3 ml QID.RESP ANUSHA Administration Amantadine HCl 100 mg 03/16/24 09:00 03/16/24 08:07 Amantadine 100 Mg Capsule PO 03/16/25 08:59 100 mg DAILY ANUSHA Administration Amlodipine Besylate 5 mg 03/16/24 01:30 03/16/24 01:39 Amlodipine 5 Mg Tablet PO 03/16/25 01:29 5 mg HS ANUSHA Administration Atorvastatin Calcium 40 mg 03/16/24 01:30 03/16/24 01:40 Atorvastatin 40 Mg Tablet PO 03/16/25 01:29 40 mg HS ANUSHA Administration Cyclobenzaprine HCl 10 mg 03/16/24 00:44 03/16/24 01:38 Cyclobenzaprine 10 Mg Tablet PO 03/16/25 00:43 10 mg QHS PRN Administration Spasms Enoxaparin Sodium 40 mg 03/16/24 10:00 Enoxaparin 40 Mg/0.4 Ml Syringe SUBCUT 03/16/25 09:59 DAILY@10 ANUSHA Levetiracetam 250 mg 03/16/24 01:30 03/16/24 08:07 Levetiracetam 250 Mg Tablet PO 03/16/25 01:29 250 mg BID ANUSHA Administration Levothyroxine Sodium 150 mcg 03/16/24 06:30 03/16/24 05:32 Levothyroxine 150 Mcg Tablet PO 03/16/25 06:29 150 mcg DAILY.0630 ANUSHA Administration Lorazepam 0.5 mg 03/16/24 00:45 Lorazepam 0.5 Mg Tablet PO 09/12/24 00:44 DAILY PRN anxiety Oxcarbazepine 450 mg 03/16/24 01:30 03/16/24 08:07 Oxcarbazepine 150 Mg Tablet PO 03/16/25 01:29 450 mg TID ANUSHA Administration Potassium Chloride 20 meq 03/15/24 21:53 Potassium Chloride Er 20 Meq Tab.Er.Prt PO 03/15/25 21:52 DAILY PRN Hypokalemia Potassium Chloride 40 meq 03/15/24 21:53 Potassium Chloride Er 20 Meq Tab.Er.Prt PO 03/15/25 21:52 DAILY PRN Hypokalemia Prednisone 10 mg 03/16/24 09:00 03/16/24 08:07 Prednisone 10 Mg Tablet PO 03/18/24 08:59 10 mg DAILY ANUSHA Administration Pregabalin 100 mg 03/16/24 01:30 03/16/24 08:07 Pregabalin 100 Mg Capsule PO 09/12/24 01:29 100 mg TID NAUSHA Administration Ropinirole HCl 1 mg 03/16/24 01:30 03/16/24 01:38 Ropinirole 1 Mg Tablet PO 03/16/25 01:29 1 mg QHS ANUSHA Administration Sodium Chloride 0 ml 03/15/24 16:55 Sodium Chloride 0.9 % 10 Ml Syringe IV-PUSH 03/15/25 16:54 PRN PRN Flush A&P - Hospitalist Assessment/Plan (1) Bladder obstruction: (2) Inability to walk: (3) Smoker: (4) Sleep apnea: (5) COPD (chronic obstructive pulmonary disease): (6) Diabetes: (7) Hypothyroidism: (8) Chronic hypoxic respiratory failure: Plan Assessment: Acute bladder retention/inability to void urine. The etiology of the retention of urine in her bladder somewhat unclear. Recent E. coli complicated urinary tract infection, diagnosed and treated beginning 02/29/2024; I consider this to be fully treated and I doubt that she has a new urinary tract infection at this time. Long-term problems: COPD. Chronic hypoxic respiratory failure on 4 to 5 L nasal cannula at baseline Diabetes mellitus type 2, with good control with hemoglobin A1c of 5.8, Tobacco use disorder. Hypothyroidism. Sleep apnea. Plan: Placement of patient in observation status. Consult to urology. She is finishing a prednisone taper and needs about 2 more days of 10 mg and then she has done with her prednisone taper for her recent COPD exacerbation. Diet: regular Daily Labs: CBC, BMP Lines/Drains: PIV, hanson d1 DVT ppx: Lovenox Code status: Full Status: observation/inpatient --> TBD Discussed with patient at bedside. All questions answered. In agreement with theabove plan. Jus Perla MD Internal Medicine Hospitalist Attending Physician Documented By: Jus Perla MD 03/16/24 0942 Signed By: <Electronically signed by Jus Perla MD> 03/16/24 2564 [facility] Work Phone: [phone]) 424-645001-10-2025 [place] [address] Hospitalist Progress Note Signed Patient: Conchis Charles MR#: [id number] 826 : 1955 Acct:[id number] Age/Sex: 68 / F Adm Date: 5 Loc: 3T Room: [address] [place] [address] Type: ADM INOo Attending Dr: Jus Perla MD Copies to: ~ Date of Service: 03/16/2024 Subjective Subjective Narrative: Admitted overnight for urinary retention, feels improved at present, no complaints, no shortness ofbreath. Exam Physical Exam Vital Signs: Temp Pulse Resp BP Pulse Ox O2 Del Method O2 Flow Rate 97.7 F 53 L 18 118/66 100 Nasal Cannula 5 03/16/24 08:00 03/16/24 08:00 03/16/24 08:00 03/16/24 08:00 03/16/24 08:00 03/16/24 08:27 03/16/24 08:27 Narrative: General: cooperative and comfortable Orientation: alert, awake and oriented x3 Head: normal to inspection Neck: normal visual inspection Cardio: no JVD, regular rate, regular rhythm Chest palpation & inspection: normal inspection of the chest Resp Effort & Inspection: normal respiratory effort Abd: soft, non-tender, non-distended, hanson catheter in place Extremities: Warm well perfused, no edema Objective Lab Results 03/16/24 05:11 03/16/24 08:34 Meds Allergies and Active Meds Allergies Penicillins Allergy (Unknown, Verified 03/15/24 16:57) Unknown Reaction sulfamethoxazole Allergy (Unknown, Verified 03/15/24 16:57) hives Active Meds: Active Medications Generic Name Dose Route Start Last Admin Trade Name Freq PRN Reason Stop Dose Admin Acetaminophen 650 mg 03/15/24 21:53 Acetaminophen 325 Mg Tablet PO 03/15/25 21:52 Q4H PRN Pain Scale 1 - 3 or fever Albuterol 2.5 mg 03/15/24 21:53 Albuterol Neb 2.5 Mg/3 Ml Vial.Neb INHALATION 03/15/25 21:52 Q3H PRN Cough/Wheeze Albuterol/Ipratropium 3 ml 03/16/24 08:00 03/16/24 09:26 Ipratropium/Albuterol 0.5-3 Mg 3 Ml Ampul.Neb INHALATION 03/16/25 07:59 3 ml QID.RESP ANUSHA Administration Amantadine HCl 100 mg 03/16/24 09:00 03/16/24 08:07 Amantadine 100 Mg Capsule PO 03/16/25 08:59 100 mg DAILY ANUSHA Administration Amlodipine Besylate 5 mg 03/16/24 01:30 03/16/24 01:39 Amlodipine 5 Mg Tablet PO 03/16/25 01:29 5 mg HS ANUSHA Administration Atorvastatin Calcium 40 mg 03/16/24 01:30 03/16/24 01:40 Atorvastatin 40 Mg Tablet PO 03/16/25 01:29 40 mg HS ANUSHA Administration Cyclobenzaprine HCl 10 mg 03/16/24 00:44 03/16/24 01:38 Cyclobenzaprine 10 Mg Tablet PO 03/16/25 00:43 10 mg QHS PRN Administration Spasms Enoxaparin Sodium 40 mg 03/16/24 10:00 Enoxaparin 40 Mg/0.4 Ml Syringe SUBCUT 03/16/25 09:59 DAILY@10 ANUSHA Levetiracetam 250 mg 03/16/24 01:30 03/16/24 08:07 Levetiracetam 250 Mg Tablet PO 03/16/25 01:29 250 mg BID ANUSHA Administration Levothyroxine Sodium 150 mcg 03/16/24 06:30 03/16/24 05:32 Levothyroxine 150 Mcg Tablet PO 03/16/25 06:29 150 mcg DAILY.0630 ANUSHA Administration Lorazepam 0.5 mg 03/16/24 00:45 Lorazepam 0.5 Mg Tablet PO 09/12/24 00:44 DAILY PRN anxiety Oxcarbazepine 450 mg 03/16/24 01:30 03/16/24 08:07 Oxcarbazepine 150 Mg Tablet PO 03/16/25 01:29 450 mg TID ANUSHA Administration Potassium Chloride 20 meq 03/15/24 21:53 Potassium Chloride Er 20 Meq Tab.Er.Prt PO 03/15/25 21:52 DAILY PRN Hypokalemia Potassium Chloride 40 meq 03/15/24 21:53 Potassium Chloride Er 20 Meq Tab.Er.Prt PO 03/15/25 21:52 DAILY PRN Hypokalemia Prednisone 10 mg 03/16/24 09:00 03/16/24 08:07 Prednisone 10 Mg Tablet PO 03/18/24 08:59 10 mg DAILY ANUSHA Administration Pregabalin 100 mg 03/16/24 01:30 03/16/24 08:07 Pregabalin 100 Mg Capsule PO 09/12/24 01:29 100 mg TID ANUSHA Administration Ropinirole HCl 1 mg 03/16/24 01:30 03/16/24 01:38 Ropinirole 1 Mg Tablet PO 03/16/25 01:29 1 mg QHS ANUSHA Administration Sodium Chloride 0 ml 03/15/24 16:55 Sodium Chloride 0.9 % 10 Ml Syringe IV-PUSH 03/15/25 16:54 PRN PRN Flush A&P - Hospitalist Assessment/Plan (1) Bladder obstruction: (2) Inability to walk: (3) Smoker: (4) Sleep apnea: (5) COPD (chronic obstructive pulmonary disease): (6) Diabetes: (7) Hypothyroidism: (8) Chronic hypoxic respiratory failure: Plan Assessment: Acute bladder retention/inability to void urine. The etiology of the retention of urine in her bladder somewhat unclear. Recent E. coli complicated urinary tract infection, diagnosed and treated beginning 02/29/2024; I consider this to be fully treated and I doubt that she has a new urinary tract infection at this time. Long-term problems: COPD. Chronic hypoxic respiratory failure on 4 to 5 L nasal cannula at baseline Diabetes mellitus type 2, with good control with hemoglobin A1c of 5.8, Tobacco use disorder. Hypothyroidism. Sleep apnea. Plan: Placement of patient in observation status. Consult to urology. She is finishing a prednisone taper and needs about 2 more days of 10 mg and then she has done withher prednisone taper for her recent COPD exacerbation. Diet: regular Daily Labs: CBC, BMP Lines/Drains: PIV, hanson d1 DVT ppx: Lovenox Code status: Full Status: observation/inpatient --> TBD Discussed with patient at bedside. All questions answered. In agreement with theabove plan. Jus Perla MD Internal Medicine Hospitalist Attending Physician Documented By: Jus Perla MD 03/16/24 0942 Signed By: 03/16/24 1613 [facility]01-10-2025 History and physical note Author Clarence Matias [facility] Note Date/Time March 16, 2024 1 2:54am [facility] [address] [place] [address] Hospitalist H&P Signed Patient: Conchis Charles MR#: [id number] 826 : 1955 Acct:[id number] Age/Sex: 68 / F Adm Date: 5 Loc: Room: 0X8859-2 Type: ADM INOo Attending Dr: Clarence Matias DO Copies to: Neto Arauz,DO Clarence Matias, DO~ HPI DATE OF EXAMINATION: 03/15/24 CHIEF COMPLAINT: Unable to pass urine HISTORY OF PRESENT ILLNESS: This is a 68-year-old woman who came to the emergency room on the evening of March 15, with report that she was been unable to pass urine for about 24 hours. She began noticing problems the evening before when she went togo sit on the toilet and could not pass any urine. She went to bed at nighttime. She woke up this morning having pain in the right lower quadrant. She tried to get up out of bed and was so weak that she could barely walk around. She was lying down flat and told her that something was wrong and that she would need to get medical attention and so EMS was summoned and brought her to the hospital at about 5 PM. In the emergency room on lab work her creatinine is gone up a little bit going from 1.15 up to 1.34. A bladder scan showed high volume of urine in the bladderso Hanson catheter was placed. After that she had a good release of about 800 mLof urine which is clear and yellow and not purulent and not having any blood. Because of her complaints of abdominal pain a CT scan of her abdomen pelvis was done to rule out pyelonephritis and this came back showing no acute changes. The patient was recently hospitalized from February 28 through March 04 (under my care) where she presented to the hospital with 24 hours of encephalopathy and she did not remember anything there had been going on for 24 hours and she was found to have a urinary tract infection. Secondary problem was that she had an exacerbation of her chronic obstructive pulmonary disease. At baseline she needs 4 to 5 L of oxygen nasal cannula and chest turns up to 6 Lby nasal cannula with any physical activity. At home she been getting a very minimal amount of physical activity, needing her to push her in a wheelchair to the edge of the step so she can go up and down a couple steps and then use a wheelchair to get her to the door of the car. The patient reports that after getting out of the hospital a couple weeks ago her breathing did gradually get better. She completed antibiotics with urinary tract infection; at that time she grew E. coli which was multidrug sensitive. She is on the last couple days of a prednisone taper, taking just 10 mg prednisone for her COPD. She says that her breathing has been good. At home she was having a mild amount of diarrhea from the antibiotics and she denies anyproblems with constipation. Before these episodes she really did not have any problems with urinary tract infections. She says that many years ago urology with Dr. Carlson treated her with a bladder sling operation. Review of Systems Review of Systems Review of systems: 10 systems are reviewed and are negative except as mentioned elsewhere in the documentation. [facility] Medical History (Updated 03/16/24 @ 00:52 by Clarence Matias DO) Chronic hypoxic respiratory failure Charcot joint of foot Bilateral Hypercalcemia Hypothyroidism Hyperlipidemia Rupture Achilles tendon Left foot rupture with repair Right foot Achilles cut due to charcot foot Feeling of incomplete bladder emptying COPD (chronic obstructive pulmonary disease) Neuropathy Diabetes Surgical History Previous back surgery History of parathyroidectomy Status post right foot surgery Charcot foot Status post laser cataract surgery of both eyes History of hip surgery H/O thyroidectomy H/O: hysterectomy still has ovaries Family History Father Pneumonia Grandparent Liver disease Maternal Grand Father Maternal Grand Father Grandparent Cancer Maternal Grand Mother Maternal Grand Mother Grandparent Myocardial infarction Legacy FamHx Relation: Paternal Grand Father Paternal Grand Father Heart disease Paternal Grand Father Grandparent Paternal Grand Mother Diabetes Paternal Grand Mother Mother Cancer Legacy FamHx Problem: Diagnosed with Cancer Social History Smoking Status: Former smoker Tobacco Type: cigarettes Substance Use Type: None Substance Abuse Comment: denies illegal drug use. 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 and Allergies Allergies Penicillins Allergy (Unknown, Verified 03/15/24 16:57) Unknown Reaction sulfamethoxazole Allergy (Unknown, Verified 03/15/24 16:57) hives Home Medications aspirin 81 mg chewable tablet 1 tab PO DAILY 06/24/23 [History Confirmed 03/15/24] cetirizine 10 mg tablet (Zyrtec) 10 mg PO DAILY 06/24/23 [History Confirmed 03/15/24] levothyroxine 150 mcg tablet 150 mcg PO DAILY 06/24/23 [History Confirmed 03/15/24] nebulizer accessories (Adult Aerosol Mask) 06/24/23 [History Confirmed 01/24/24] omega-3 fatty acids 1,000 mg capsule 1,000 mg PO DAILY 06/24/23 [History Confirmed 03/15/24] oxcarbazepine 300 mg tablet (Trileptal) 450 mg PO TID 06/24/23 [History Confirmed 03/15/24] umeclidinium 62.5 mcg-vilanterol 25 mcg/actuation powdr for inhalation (Anoro Ellipta) 1 inh inhalation HS 06/24/23 [History Confirmed 03/16/24] albuterol sulfate 2.5 mg/3 mL (0.083 %) solution for nebulization 2.5 mg (3 mL) inhalation Q3H PRN Shortness Of Breath #0 mL 08/11/23 [Rx Confirmed 03/15/24] alpha lipoic acid 200 mg capsule 200 mg PO DAILY 08/18/23 [History Confirmed 03/15/24] Oxygen 10/11/23 [History Confirmed 01/24/24] amantadine HCl 100 mg tablet 100 mg PO DAILY #90 tabs 10/18/23 [Rx Confirmed 03/15/24] furosemide 40 mg tablet 40 mg PO DAILY #90 tabs 10/18/23 [Rx Confirmed 03/15/24] potassium chloride 20 mEq tablet,extended release 20 meq PO BID 90 days #180 tabs 10/18/23 [Rx Confirmed 03/15/24] Inogen Battery #1 ea 10/20/23 [Rx Confirmed 01/24/24] albuterol sulfate 90 mcg/actuation aerosol inhaler 2 puff inhalation Q8HR PRN shortness of breath or wheezing 11/18/23 [History Confirmed 03/15/24] lorazepam 0.5 mg tablet 0.5 mg PO DAILY PRN anxiety 30 days #30 tabs 01/09/24 [Rx Confirmed 03/15/24] atorvastatin 40 mg tablet 40 mg PO HS #90 tabs 01/25/24 [Rx Confirmed 03/15/24] blood sugar diagnostic (Blood Glucose Test strips) #50 ea 01/25/24 [Rx Confirmed 01/25/24] cyclobenzaprine 10 mg tablet 10 mg PO QHS PRN Spasms 90 days #90 tabs 01/25/24 [Rx Confirmed 03/15/24] miscellaneous medical supply #1 ea 01/25/24 [Rx Confirmed 01/25/24] pregabalin 200 mg capsule (Lyrica) 200 mg PO TID 90 days #270 caps 01/25/24 [Rx Confirmed 03/16/24] ropinirole 1 mg tablet 1 mg PO QHS 90 days #90 tabs 01/25/24 [Rx Confirmed 03/16/24] miscellaneous medical supply #1 ea 02/06/24 [Rx] levetiracetam 250 mg tablet 250 mg PO BID 30 days #60 tabs 02/15/24 [Rx Confirmed 03/15/24] amlodipine 5 mg tablet 5 mg PO HS 02/29/24 [History Confirmed 03/15/24] Saccharomyces boulardii 250 mg capsule 250 mg PO BID.WITH.MEALS 15 days #30 caps03/03/24 [Rx Confirmed 03/16/24] prednisone 10 mg tablet See Taper PO DAILY #17 tabs 03/03/24 [Rx Confirmed 03/15/24] Exam Physical Exam Vital Signs: Temp Pulse Resp BP Pulse Ox O2 Del Method O2 Flow Rate 98.3 F 69 20 170/73 H 95 Nasal Cannula 5 03/16/24 00:31 03/16/24 00:31 03/16/24 00:31 03/16/24 00:31 03/16/24 00:31 03/16/24 00:03/16/24 00:31 Narrative: GEN: Awake, alert, oriented x 3. Head: Normal Cephalic, Atraumatic. Eyes: Conjunctiva and sclera clear bilaterally. Nose: External nose and nares normal bilaterally. Mouth: Lips and tongue normal. Neck: No JVD. No thyromegaly. No lymphadenopathy. Lungs: Clear to auscultation bilaterally, no wheezing, no crackles. Heart: Regular rate and rhythm, no murmurs, rubs, or gallops. Abdomen: Soft, normal bowel sounds, no rigidity, guarding, or acute peritoneal signs. Extremities: No swelling or cords in the calves bilaterally, no edema in the ankles bilaterally. Skin: No systemic rashes or lesions. Psychiatric: Calm. Conversant. Cooperative. Urine in the Hanson collection system is clear and yellow. No blood at all. No signs of purulence. Very good volume of urine in the Hanson collection system (my estimation is 900 mL to 1000 mL.) Results - Hospitalist H&P Lab Results Labs: Laboratory Last Values Corrected WBC 9.9 X10E3/uL (3.8-11.6) 03/15/24 20:23 Uncorrected WBC Count 9.9 x10E3/uL (3.8-11.6) 03/15/24 20:23 RBC 4.05 x10E6/uL (3.60-5.00) 03/15/24 20:23 Hgb 11.5 g/dL (11.8-15.4) L 03/15/24 20:23 Hct 35.0 % (34.0-46.4) 03/15/24 20:23 MCV 86.4 fl (80-100) 03/15/24 20:23 MCH 28.3 pg (24.7-34.3) 03/15/24 20:23 MCHC 32.8 g/dL (32.0-35.0) 03/15/24 20:23 RDW 15.1 % (11.9-15.3) 03/15/24 20:23 Plt Count 199 x10E3/uL (150-450) 03/15/24 20:23 MPV 7.6 fl (6.3-10.7) 03/15/24 20:23 Neut % (Auto) 78.8 % (.) 03/15/24 20:23 Lymph % (Auto) 13.6 % (.) 03/15/24 20:23 Toole % (Auto) 5.2 % (.) 03/15/24 20:23 Eos % (Auto) 1.8 % (.) 03/15/24 20: Baso % (Auto) 0.6 % (.) 03/15/24 20:23 Nucleat RBC Rel Count 0.0 /100 WBC (0-0.5) 03/15/24 20:23 Neut # (Auto) 7.8 x10E3/uL (1.8-7.7) H 03/15/24 20:23 Lymph # (Auto) 1.3 x10E3/uL (1.00-4.8) 03/15/24 20:23 Toole # (Auto) 0.5 x10E3/uL (0.0-0.8) 03/15/24 20:23 Eos # (Auto) 0.2 x10E3/uL (0.0-0.45) 03/15/24 20:23 Baso # (Auto) 0.1 x10E3/uL (0.0-0.2) 03/15/24 20:23 Monocyte Dist Width 18.64 % (0.00-20.00) 03/15/24 20:23 PHA Creatinine Clear 39.26 03/15/24 20:20 Sodium 140 mmol/L (136-145) 03/15/24 20:20 Potassium 3.7 mmol/L (3.5-5.1) 03/15/24 20:20 Chloride 97 mmol/L (98-107) L 03/15/24 20:20 Carbon Dioxide 37.4 mmol/L (21.0-31.0) H 03/15/24 20:20 Anion Gap 9.3 mEq/L (6.0-15.0) 03/15/24 20:20 BUN 30 mg/dL (7-25) H 03/15/24 20:20 Creatinine 1.34 mg/dL (0.60-1.20) H 03/15/24 20:20 Est GFR (CKD-EPI) 42.657 mL/Min 03/15/24 20:20 Glucose 92 mg/dL (70-100) 03/15/24 20:20 Calcium 8.2 mg/dL (8.6-10.3) L 03/15/24 20:20 Total Bilirubin 0.4 mg/dl (0.3-1.0) 03/15/24 20:20 AST 27 U/L (13-39) 03/15/24 20:20 ALT 43 U/L (7-52) 03/15/24 20:20 Alkaline Phosphatase 133 U/L (34-104) H 03/15/24 20:20 Total Protein 6.3 gm/dL (6.4-8.9) L 03/15/24 20:20 Albumin 3.9 gm/dL (3.5-5.7) 03/15/24 20:20 Globulin 2.4 gm/dL 03/15/24 20:20 Albumin/Globulin Ratio 1.6 03/15/24 20:20 Lipase 27.0 U/L (11.0-82.0) 03/15/24 20:20 Urine Color Light-yellow (Yellow) 03/15/24 18:10 Urine Appearance Clear (Clear) 03/15/24 18:10 Urine pH 5.5 (5.0-9.0) 03/15/24 18:10 Ur Specific [place] 1.012 (1.001-1.030) 03/15/24 18:10 Urine Protein Negative mg/dL (Negative) 03/15/24 18:10 Urine Glucose (UA) Normal mg/dL (Normal) 03/15/24 18:10 Urine Ketones Negative (Negative) 03/15/24 18:10 Urine Occult Blood Negative (Negative) 03/15/24 18:10 Urine Nitrite Negative (Negative) 03/15/24 18:10 Urine Bilirubin Negative (Negative) 03/15/24 18:10 Urine Urobilinogen Normal mg/dL (Normal) 03/15/24 18:10 Ur Leukocyte Esterase 1+ (Negative) H 03/15/24 18:10 Urine RBC 1-2 /HPF (0-4) 03/15/24 18:10 Urine WBC 3-4 /HPF (0-4) 03/15/24 18:10 Urine WBC Clumps Occasional /LPF (None Seen) H 03/15/24 18:10 Ur Squamous Epith Cells 1-2 /HPF (0-2) 03/15/24 18:10 Urine Bacteria Rare /HPF (None Seen) 03/15/24 18:10 Hyaline Casts 0-8 /LPF (0-8) 03/15/24 18:10 Urine Mucus Rare /LPF 03/15/24 18:10 Assessment & Plan Assessment/Plan (1) Bladder obstruction: (2) Inability to walk: (3) Smoker: (4) Sleep apnea: (5) COPD (chronic obstructive pulmonary disease): (6) Diabetes: (7) Hypothyroidism: (8) Chronic hypoxic respiratory failure: Plan Assessment: Acute bladder retention/inability to void urine. The etiology of the retention of urine in her bladder somewhat unclear. Recent E. coli complicated urinary tract infection, diagnosed and treated beginning 02/29/2024; I consider this to be fully treated and I doubt that she has a new urinary tract infection at this time. Long-term problems: COPD. Chronic hypoxic respiratory failure on 4 to 5 L oxamide nasal cannula at the time. Diabetes mellitus type 2, with good control with hemoglobin A1c of 5.8, Tobacco use disorder. Hypothyroidism. Sleep apnea. Plan: Placement of patient in observation status. Consult to urology. She is finishing a prednisone taper and needs about 2 more days of 10 mg and then she has done with her prednisone taper for her recent COPD exacerbation. A consult to physical therapy and Occupational Therapy in the morning. She was already working on getting started with home health services and home physical therapy to strengthen her at home. IP vs OBS Justification Based on differential dx, clinical care plan, and risk of adverse events, if untreated, in my clinical judgement this patient requires an acute care setting as: OBSERVATION because of an expectation of an under 2 midnight stay. Estimated length of stay (# of days): 2 Documented By: Clarence Matias DO [id number] Signed By: <Electronically signed by Clarence Matias DO> 03/16/24 0054 [facility] Work Phone: 1(676) 832-481401-10-2025 History and physical [place] [id number] Hospitalist H&P Signed Patient: Conchis Charles MR#: [id number] : 1955 Acct:[id number] Age/Sex: 68 / F Adm Date: 5 Loc: Room: [address] [place] [address] Type: ADM INOo Attending Dr: Clarence Matias DO Copies to: DO Clarence Monzon DO~ HPI DATE OF EXAMINATION: 03/15/24 CHIEF COMPLAINT: Unable to pass urine HISTORY OF PRESENT ILLNESS: This is a 68-year-old woman who came to the emergency room on the evening of March 15, with report that she was been unable to pass urine for about 24 hours. She began noticing problems the evening before when she went togo sit on the toilet and could not pass any urine. She went to bed at nighttime. She woke up this morning having pain in the right lower quadrant. She tried to get up out of bed and was so weak that she could barely walk around. She was lying down flat and told her that something was wrong and that she would need to get medical attention and so EMS was summoned and brought her to the hospital at about 5 PM. In the emergency room on lab work her creatinine is gone up a little bit going from 1.15 up to 1.34. A bladder scan showed high volume of urine in the bladderso Hanson catheter was placed. After that she had a good release of about 800 mLof urine which is clear and yellow and not purulent and not having any blood. Because of her complaints of abdominal pain a CT scan of her abdomen pelvis was doneto rule out pyelonephritis and this came back showing no acute changes. The patient was recently hospitalized from February 28 through March 04 (under my care) where she presented to the hospital with 24 hours of encephalopathy and she did not remember anything there had been going on for 24 hours and she was found to have a urinary tract infection. Secondary problem was that she had an exacerbation of her chronic obstructive pulmonary disease. At baseline she needs 4 to 5 L of oxygen nasal cannula and chest turns up to 6 Lby nasal cannula with any physical activity. At home she been getting a very minimal amount of physical activity, needing her to push her in a wheelchair to the edge of the step so she can go up and down a couple steps and then usea wheelchair to get her to the door of the car. The patient reports that after getting out of the hospital a couple weeks ago her breathing did gradually get better. She completed antibiotics with urinary tract infection; at that time she grew E. coli which was multidrug sensitive. She is on the last couple days of a prednisone taper, taking just 10 mg prednisone for her COPD. She says that her breathing has been good. At home she was having amild amount of diarrhea from the antibiotics and she denies anyproblems with constipation. Before these episodes she really did not have any problems with urinary tract infections. She says that many years ago urology with Dr. Carlson treated her with a bladder sling operation. Review of Systems Review of Systems Review of systems: 10 systems are reviewed and are negative except as mentioned elsewhere in the documentation. PMFSH Medical History (Updated 03/16/24 @ 00:52 by Clarence Matias DO) Chronic hypoxic respiratory failure Charcot joint of foot Bilateral Hypercalcemia Hypothyroidism Hyperlipidemia Rupture Achilles tendon Left foot rupture with repair Right foot Achilles cut due to charcot foot Feeling of incomplete bladder emptying COPD (chronic obstructive pulmonary disease) Neuropathy Diabetes Surgical History Previous back surgery History of parathyroidectomy Status post right foot surgery Charcot foot Status post laser cataract surgery of both eyes History of hip surgery H/O thyroidectomy H/O: hysterectomy still has ovaries Family History Father Pneumonia Grandparent Liver disease Maternal Grand Father Maternal Grand Father Grandparent Cancer Maternal Grand Mother Maternal Grand Mother Grandparent Myocardial infarction Legacy FamHx Relation: Paternal Grand Father Paternal Grand Father Heart disease Paternal Grand Father Grandparent Paternal Grand Mother Diabetes Paternal Grand Mother Mother Cancer Legacy FamHx Problem: Diagnosed with Cancer Social History Smoking Status: Former smoker Tobacco Type: cigarettes Substance Use Type: None Substance Abuse Comment: denies illegal drug use. 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 and Allergies Allergies Penicillins Allergy (Unknown, Verified 03/15/24 16:57) Unknown Reaction sulfamethoxazole Allergy (Unknown, Verified 03/15/24 16:57) hives Home Medications aspirin 81 mg chewable tablet 1 tab PO DAILY 06/24/23 [History Confirmed 03/15/24] cetirizine 10 mg tablet (Zyrtec) 10 mg PO DAILY 06/24/23 [History Confirmed 03/15/24] levothyroxine 150 mcg tablet 150 mcg PO DAILY 06/24/23 [History Confirmed 03/15/24] nebulizer accessories (Adult Aerosol Mask) 06/24/23 [History Confirmed 01/24/24] omega-3 fatty acids 1,000 mg capsule 1,000 mg PO DAILY 06/24/23 [History Confirmed 03/15/24] oxcarbazepine 300 mg tablet (Trileptal) 450 mg PO TID 06/24/23 [History Confirmed 03/15/24] umeclidinium 62.5 mcg-vilanterol 25 mcg/actuation powdr for inhalation (Anoro Ellipta) 1 inh inhalation HS 06/24/23 [History Confirmed 03/16/24] albuterol sulfate 2.5 mg/3 mL (0.083 %) solution for nebulization 2.5 mg (3 mL) inhalation Q3H PRN Shortness Of Breath #0 mL 08/11/23 [Rx Confirmed 03/15/24] alpha lipoic acid 200 mg capsule 200 mg PO DAILY 08/18/23 [History Confirmed 03/15/24] Oxygen 10/11/23 [History Confirmed 01/24/24] amantadine HCl 100 mg tablet 100 mg PO DAILY #90 tabs 10/18/23 [Rx Confirmed 03/15/24] furosemide 40 mg tablet 40 mg PO DAILY #90 tabs 10/18/23 [Rx Confirmed 03/15/24] potassium chloride 20 mEq tablet,extended release 20 meq PO BID 90 days #180 tabs 10/18/23 [Rx Confirmed 03/15/24] Inogen Battery #1 ea 10/20/23 [Rx Confirmed 01/24/24] albuterol sulfate 90 mcg/actuation aerosol inhaler 2 puff inhalation Q8HR PRN shortness of breath or wheezing 11/18/23 [History Confirmed 03/15/24] lorazepam 0.5 mg tablet 0.5 mg PO DAILY PRN anxiety 30 days #30 tabs 01/09/24 [Rx Confirmed 03/15/24] atorvastatin 40 mg tablet 40 mg PO HS #90 tabs 01/25/24 [Rx Confirmed 03/15/24] blood sugar diagnostic (Blood Glucose Test strips) #50 ea 01/25/24 [Rx Confirmed 01/25/24] cyclobenzaprine 10 mg tablet 10 mg PO QHS PRN Spasms 90 days #90 tabs 01/25/24 [Rx Confirmed 03/15/24] miscellaneous medical supply #1 ea 01/25/24 [Rx Confirmed 01/25/24] pregabalin 200 mg capsule (Lyrica) 200 mg PO TID 90 days #270 caps 01/25/24 [Rx Confirmed 03/16/24] ropinirole 1 mg tablet 1 mg PO QHS 90 days #90 tabs 01/25/24 [Rx Confirmed 03/16/24] miscellaneous medical supply #1 ea 02/06/24 [Rx] levetiracetam 250 mg tablet 250 mg PO BID 30 days #60 tabs 02/15/24 [Rx Confirmed 03/15/24] amlodipine 5 mg tablet 5 mg PO HS 02/29/24 [History Confirmed 03/15/24] Saccharomyces boulardii 250 mg capsule 250 mg PO BID.WITH.MEALS 15 days #30 caps03/03/24 [Rx Confirmed 03/16/24] prednisone 10 mg tablet See Taper PO DAILY #17 tabs 03/03/24 [Rx Confirmed 03/15/24] Exam Physical Exam Vital Signs: Temp Pulse Resp BP Pulse Ox O2 Del Method O2 Flow Rate 98.3 F 69 20 170/73 H 95 Nasal Cannula 5 03/16/24 00:31 03/16/24 00:31 03/16/24 00:31 03/16/24 00:31 03/16/24 00:31 03/16/24 00:31 03/16/24 00:31 Narrative: GEN: Awake, alert, oriented x 3. Head: Normal Cephalic, Atraumatic. Eyes: Conjunctiva and sclera clear bilaterally. Nose: External nose and nares normal bilaterally. Mouth: Lips and tongue normal. Neck: No JVD. No thyromegaly. No lymphadenopathy. Lungs: Clear to auscultation bilaterally, no wheezing, no crackles. Heart: Regular rate and rhythm, no murmurs, rubs, or gallops. Abdomen: Soft, normal bowel sounds, no rigidity, guarding, or acute peritoneal signs. Extremities: No swelling or cords in the calves bilaterally, no edema in the ankles bilaterally. Skin: No systemic rashes or lesions. Psychiatric: Calm. Conversant. Cooperative. Urine in the Hanson collection system is clear and yellow. No blood at all. No signs of purulence. Very good volume of urine in the Hanson collection system (my estimation is 900 mL to 1000 mL.) Results - Hospitalist H&P Lab Results Labs: Laboratory Last Values Corrected WBC 9.9 X10E3/uL (3.8-11.6) 03/15/24 20:23 Uncorrected WBC Count 9.9 x10E3/uL (3.8-11.6) 03/15/24 20:23 RBC 4.05 x10E6/uL (3.60-5.00) 03/15/24 20:23 Hgb 11.5 g/dL (11.8-15.4) L 03/15/24 20: Hct 35.0 % (34.0-46.4) 03/15/24 20: MCV 86.4 fl (80-100) 03/15/24 20: MCH 28.3 pg (24.7-34.3) 03/15/24 20: MCHC 32.8 g/dL (32.0-35.0) 03/15/24 20: RDW 15.1 % (11.9-15.3) 03/15/24 20: Plt Count 199 x10E3/uL (150-450) 03/15/24: MPV 7.6 fl (6.3-10.7) 03/15/24 20: Neut % (Auto) 78.8 % (.) 03/15/24 20: Lymph % (Auto) 13.6 % (.) 03/15/24 20: [place]ole % (Auto) 5.2 % (.) 03/15/24 20: Eos % (Auto) 1.8 % (.) 03/15/24 20: Baso % (Auto) 0.6 % (.) 03/15/24: Nucleat RBC Rel Count 0.0 /100 WBC (0-0.5) 03/15/24: Neut # (Auto) 7.8 x10E3/uL (1.8-7.7) H 03/15/24 20: Lymph # (Auto) 1.3 x10E3/uL (1.00-4.8) 03/15/24 20: [place]ole # (Auto) 0.5 x10E3/uL (0.0-0.8) 03/15/24 20: Eos # (Auto) 0.2 x10E3/uL (0.0-0.45) 03/15/24: Baso # (Auto) 0.1 x10E3/uL (0.0-0.2) 03/15/24 20: Monocyte Dist Width 18.64 % (0.00-20.00) 03/15/24 20: PHA Creatinine Clear 39.26 03/15/24 20:20 Sodium 140 mmol/L (136-145) 03/15/24 20:20 Potassium 3.7 mmol/L (3.5-5.1) 03/15/24 20:20 Chloride 97 mmol/L (98-107) L 03/15/24 20:20 Carbon Dioxide 37.4 mmol/L (21.0-31.0) H 03/15/24 20:20 Anion Gap 9.3 mEq/L (6.0-15.0) 03/15/24 20:20 BUN 30 mg/dL (7-25) H 03/15/24 20:20 Creatinine 1.34 mg/dL (0.60-1.20) H 03/15/24 20:20 Est GFR (CKD-EPI) 42.657 mL/Min 03/15/24 20:20 Glucose 92 mg/dL (70-100) 03/15/24 20:20 Calcium 8.2 mg/dL (8.6-10.3) L 03/15/24 20:20 Total Bilirubin 0.4 mg/dl (0.3-1.0) 03/15/24 20:20 AST 27 U/L (13-39) 03/15/24 20:20 ALT 43 U/L (7-52) 03/15/24 20:20 Alkaline Phosphatase 133 U/L (34-104) H 03/15/24 20:20 Total Protein 6.3 gm/dL (6.4-8.9) L 03/15/24 20:20 Albumin 3.9 gm/dL (3.5-5.7) 03/15/24 20:20 Globulin 2.4 gm/dL 03/15/24 20:20 Albumin/Globulin Ratio 1.6 03/15/24 20:20 Lipase 27.0 U/L (11.0-82.0) 03/15/24 20:20 Urine Color Light-yellow (Yellow) 03/15/24 18:10 Urine Appearance Clear (Clear) 03/15/24 18:10 Urine pH 5.5 (5.0-9.0) 03/15/24 18:10 Ur Specific [place] 1.012 (1.001-1.030) 03/15/24 18:10 Urine Protein Negative mg/dL (Negative) 03/15/24 18:10 Urine Glucose (UA) Normal mg/dL (Normal) 03/15/24 18:10 Urine Ketones Negative (Negative) 03/15/24 18:10 Urine Occult Blood Negative (Negative) 03/15/24 18:10 Urine Nitrite Negative (Negative) 03/15/24 18:10 Urine Bilirubin Negative (Negative) 03/15/24 18:10 Urine Urobilinogen Normal mg/dL (Normal) 03/15/24 18:10 Ur Leukocyte Esterase 1+ (Negative) H 03/15/24 18:10 Urine RBC 1-2 /HPF (0-4) 03/15/24 18:10 Urine WBC 3-4 /HPF (0-4) 03/15/24 18:10 Urine WBC Clumps Occasional /LPF (None Seen) H 03/15/24 18:10 Ur Squamous Epith Cells 1-2 /HPF (0-2) 03/15/24 18:10 Urine Bacteria Rare /HPF (None Seen) 03/15/24 18:10 Hyaline Casts 0-8 /LPF (0-8) 03/15/24 18:10 Urine Mucus Rare /LPF 03/15/24 18:10 Assessment & Plan Assessment/Plan (1) Bladder obstruction: (2) Inability to walk: (3) Smoker: (4) Sleep apnea: (5) COPD (chronic obstructive pulmonary disease): (6) Diabetes: (7) Hypothyroidism: (8) Chronic hypoxic respiratory failure: Plan Assessment: Acute bladder retention/inability to void urine. The etiology of the retention of urine in her bladder somewhat unclear. Recent E. coli complicated urinary tract infection, diagnosed and treated beginning 02/29/2024; I consider this to be fully treated and I doubt that she has a new urinary tract infection at this time. Long-term problems: COPD. Chronic hypoxic respiratory failure on 4 to 5 L oxamide nasal cannula at the time. Diabetes mellitus type 2, with good control with hemoglobin A1c of 5.8, Tobacco use disorder. Hypothyroidism. Sleep apnea. Plan: Placement of patient in observation status. Consult to urology. She is finishing a prednisone taper and needs about 2 more days of 10 mg and then she has done withher prednisone taper for her recent COPD exacerbation. A consult to physical therapy and Occupational Therapy in the morning. She was already working on getting started with home health services and home physical therapy to strengthen her at home. IP vs OBS Justification Based on differential dx, clinical care plan, and risk of adverse events, if untreated, in my clinical judgement this patient requires an acute care setting as: OBSERVATION because of an expectation of an under 2 midnight stay. Estimated length of stay (# of days): 2 Documented By: Clarence Matias DO 2129 Signed By: 03/16/24 0054 [facility]01-09-2025 Radiology Diagnostic study note [facility] [employer] [address] [place] [address] CT Scan Report Signed Patient: Conchis Charles MR#: [id number] : 1955 Acct:[id number] Age/Sex: 68 / F ADM Date: 5 Loc: ER Room: Type: [facility] ER Attending Dr: Copies to: Jm Almaguer DO~ Ordering Provider: Jm Almaguer DO Date of Service: 03/15/24 CT/CT abdomen pelvis wo con: r flank pain CT abdomen pelvis wo con 03/15/2024 7:09 PM SIGNS AND SYMPTOMS: Right flank pain with difficulty urinating TECHNIQUE: Multidetector ct axial images of the abdomen and pelvis were obtainedwithout IV contrast. Multiplanar reformats were performed and reviewed to further define anatomy and possible pathology. CT was performed with one or more of the following dose reduction techniques: Automated exposure control, adjustment of the mA and/or kV according to patient size, or use of iterative reconstructiontechnique. COMPARISON: None. FINDINGS: Lower Chest: Emphysematous changes are noted with interstitial prominence. Dependent atelectasis orscarring is also noted. ABDOMEN: Liver: Within normal limits. Bile Ducts: Normal caliber. Gallbladder: '. Pancreas: Within normal limits. Spleen: Within normal limits. Adrenals: Within normal limits. Kidneys: Within normal limits. Pelvis: Reproductive Organs: No pelvic masses. Ureters: Within normal limits. Bladder: Within normal limits. Bowel: Normal caliber. There is a normal appendix in the right lower quadrant. Mesenteric Lymph Nodes: No enlarged mesenteric lymph nodes. Peritoneum: No ascites or free air, no fluid collection. Vessels: Atherosclerotic changes are noted in the abdominal aorta and its branches. Retroperitoneum: Within normal limits. Abdominal Wall: Within normal limits. Bones: Degenerative changes are noted in the thoracolumbar spine with a dextro convex curvature. Degenerative changes are noted in the hips. CT/CT abdomen pelvis wo con IMPRESSION: No bowel obstruction or obstructive uropathy. No free fluid or free air. There is a normal appendix in the right lower quadrant. Impression dictated by: Ana Cristina Hathaway M.D.03/15/2024 7:46 PM Dictation Location: RADIO-PC-17 Transcribed By: GUILLERMINA 03/15/241945 Dictated By: Ana Cristina Hathaway II, MD 03/15/241935 Signed By: 03/15/241945 [facility] Work Phone: [phone]) 845-869311-20-2024 Evaluation note* Author [facility] Authored January 25, 2024 12:19pm 3 months, Sooner if needed, ER if concerns. The above note was written by Nova Rucker LPN, acting as human recorder, note dictated by Dr. Neto Arauz. [facility] Work Phone: 1(873) 204-648211-01-2024 History of Present illness Narrative* Ferdinand Galdamez, DO - 01/06/2024 2:10 PM EDT Subjective Conchis Charles is a 68 y.o. female Chief Complaint Follow-up 68-year-old female returns after hospitalization for noncardiac related issues at [facility], primarily for COPD exacerbation and chest discomfort. Heart catheterization from a year ago and current echocardiogram are reviewed and noted to have minimal coronary disease and normal left ventricular function. She has underlying severe COPD, oxygen dependent, has quit tobacco use now x 6 months but still exposed to secondhand smoke from her . She has hypertension now on amlodipine only (lisinopril discontinued by primary care). She has insulin requiring diabetes, ambulates primarily via motorized scooter due to her COPD. There is no previous true myocardial infarction, no history of revascularization. Recommendations: Continue routine primary care follow-up, cardiology be available as needed Review of Systems Cardiovascular: Positive for chest pain and leg swelling. All other systems reviewed and are negative. Vitals: 01/06/24 1411 BP: 150/74 BP Location: Left arm Patient Position: Sitting Pulse: 68 Weight: 78.9 kg (174 lb) Height: 1.626 m (5' 4 ) Objective Physical Exam Constitutional: Appearance: Normal appearance. HENT: Nose: Nose normal. Neck: Vascular: No carotid bruit. Cardiovascular: Rate and Rhythm: Normal rate. Pulses: Normal pulses. Heart sounds: Normal heart sounds. Pulmonary: Effort: Pulmonary effort is normal. Breath sounds: Wheezing present. Abdominal: General: Bowel sounds are normal. Palpations: Abdomen is soft. Musculoskeletal: General: Normal range of motion. Cervical back: Normal range of motion. Right lower leg: No edema. Left lower leg: No edema. Skin: General: Skin is warm and dry. Neurological: General: No focal deficit present. Mental Status: She is alert. Psychiatric: Mood and Affect: Mood normal. Behavior: Behavior normal. Thought Content: Thought content normal. Judgment: Judgment normal. Allergies Penicillins and Sulfanilamide Current Medications Current Outpatient Medications: acetaminophen (Tylenol) 325 mg capsule, 1 capsule (325 mg) every 6 hours if needed., Disp: , Rfl: albuterol 2.5 mg /3 mL (0.083 %) nebulizer solution, every 4 hours if needed., Disp: , Rfl: albuterol 90 mcg/actuation inhaler, 3 times a day., Disp: , Rfl: alpha lipoic acid 200 mg capsule, Three times daily, Disp: , Rfl: amantadine (Symmetrel) 100 mg tablet, 1 tablet (100 mg)., Disp: , Rfl: amLODIPine (Norvasc) 5 mg tablet, 1 tablet (5 mg) once daily., Disp: , Rfl: aspirin 81 mg chewable tablet, 1 tablet (81 mg) once daily., Disp: , Rfl: atorvastatin (Lipitor) 40 mg tablet, 1 tablet (40 mg) once daily., Disp: , Rfl: cetirizine (ZyrTEC) 10 mg tablet, 1 tablet (10 mg) once daily., Disp: , Rfl: mvwpllnzdvf-ikimlsbef-zwwpexlb (TRELEGY-ELLIPTA) 100-62.5-25 mcg blister with device, Inhale 1 puffonce daily., Disp: , Rfl: furosemide (Lasix) 40 mg tablet, Take 1 tablet (40 mg) by mouth once daily., Disp: , Rfl: guaiFENesin (Mucinex) 600 mg 12 hr tablet, Take 1 tablet (600 mg) by mouth 2 times a day. Do not crush, chew, or split., Disp: , Rfl: hydrocodone-homatropine (Hycodan) 5-1.5 mg/5 mL syrup, Take 5 mL by mouth if needed for cough., Disp: , Rfl: insulin lispro (HumaLOG KwikPen Insulin) 100 unit/mL injection, Inject under the skin 3 times daily(morning, midday, late afternoon). Take as directed per insulin instructions., Disp: , Rfl: levETIRAcetam (Keppra) 250 mg tablet, 1 tablet (250 mg) 2 times a day., Disp: , Rfl: levothyroxine (Synthroid, Levoxyl) 150 mcg tablet, 1 tablet (150 mcg) early in the morning.., Disp:, Rfl: lisinopril 5 mg tablet, Take 1 tablet (5 mg) by mouth if needed., Disp: , Rfl: LORazepam (Ativan) 0.5 mg tablet, Take 2 tablets (1 mg) by mouth every 8 hours if needed for anxiety., Disp: , Rfl: omega 4-tep-ytd-fish oil (Fish OiL) 1,000 mg (120 mg-180 mg) capsule, Take 1 capsule (1,000 mg) by mouth once daily., Disp: , Rfl: OXcarbazepine (Trileptal) 300 mg tablet, Three times daily, Disp: , Rfl: oxygen (O2) gas therapy, Inhale 1 each continuously. 3 - 3.5 LP)M, Disp: , Rfl: potassium chloride CR 20 mEq ER tablet, 1 tablet (20 mEq) 2 times a day., Disp: , Rfl: pregabalin (Lyrica) 100 mg capsule, 1 capsule (100 mg) every 8 hours., Disp: , Rfl: rOPINIRole (Requip) 1 mg tablet, 1 tablet (1 mg) once daily at bedtime., Disp: , Rfl: tiZANidine (Zanaflex) 4 mg tablet, 1 tablet (4 mg) once daily at bedtime., Disp: , Rfl: umeclidinium-vilanteroL (Anoro Ellipta) 62.5-25 mcg/actuation blister with device, Inhale 1 puff once daily., Disp: , Rfl: Assessment/Plan 1. Essential hypertension 2. Mixed hyperlipidemia 3. Chronic obstructive pulmonary disease, unspecified COPD type (Multi) 4. Type 2 diabetes mellitus without complication, with long-term current use of insulin (Multi) 5. BMI 29.0-29.9,adult 6. Former smoker Scribe Attestation By signing my name below, I, Shana Galvez LPN , Scribe attest that this documentation has been prepared under the direction and in the presence of Wilfredo Galdamez DO. Provider Attestation - Scribe documentation All medical record entries made by the Scribe were at my direction and personally dictated by me. Ihave reviewed the chart and agree that the record accurately reflects my personal performance of the history, physical exam, discussion and plan. documented in [facility] [place] Work Phone: 1(363) 771-993711-01-2024 Instructions* Patient Instructions* Shana Stinson LPN - 01/06/2024 2:10 PM EDT Please bring all medicines, vitamins, and herbal supplements with you when you come to the office. Prescriptions will not be filled unless you are compliant with your follow up appointments or have a follow up appointment scheduled as per instruction of your physician. Refills should be requested at the time of your visit. BMI was above normal measurement. Current weight: 78.9 kg (174 lb) Weight change since last visit (-) denotes wt loss 15.6 lbs Weight loss needed to achieve BMI 25: 28.7 Lbs Weight loss needed to achieve BMI 30: -0.4 Lbs Provided instructions on dietary changes Provided instructions on exercise. Follow up ordered as needed only * Attachments The following attachments cannot be sent through Care Everywhere. * DASH Diet (Ukrainian) documented in this [facility] Work Phone: [phone] Progress note Author Mejia Aaron [facility] November 20, 2023 2:14pm Note Date/Time November 20, 2023 12:52pm [facility] [address] [place] [address] Hospitalist Progress Note Signed Patient: Conchis Charles MR#: [id number] 826 : 1955 Acct:[id number] Age/Sex: 68 / F Adm Date: 4 Loc: Room: [address] [place] [address] Type: ADM IN Attending Dr: Mejia Aaron MD Copies to: ~ Date of Service: 11/20/2023 Subjective Subjective Narrative: Patient states she is feeling better today. She is tolerating her PT/OT, eating , and sleeping well. She is breathing comfortably, still complains of productivecough. She states she takes Anoro and cough syrup at home which helps with nightcoughs. Exam Physical Exam Vital Signs: Temp Pulse Resp BP Pulse Ox O2 Del Method O2 Flow Rate 97.8 F 66 18 116/68 96 Nasal Cannula 4 11/20/23 08:00 11/20/23 10:06 11/20/23 10:06 11/20/23 08:00 11/20/23 10:06 11/20/23 10:06 11/20/23 10:06 Narrative: GENERAL: Alert, oriented, appears stated age, mildly uncomfortable HEENT: NC/AT, EOMI, PERRL, conjunctiva clear CARDIOVASCULAR: Regular rate and regular rhythm, no murmurs/rubs/gallops RESPIRATORY: 4L via NC, scattered wheezing ABDOMEN: Soft, non-tender, non-distended, normal bowel sounds BACK: No midline or paraspinal tenderness EXTREMITIES: moving all extremities well. Well-perfused. Sensation intact. No edema SKIN: Intact, no rash, no trauma NEURO: Cranial nerves grossly intact, no focal neurologic signs PSYCHIATRIC: Good eye contact, appropriate mood and affect, cooperative Objective Lab Results 11/19/23 12:11 11/19/23 12:11 Microbiology Results Microbiology 11/18/23 10:50 Blood - Right Forearm Blood Culture - Preliminary No Growth 2 Days 11/18/23 10:24 Blood - Right Antecubital Blood Culture - Preliminary No Growth 2 Days 11/18/23 21:30 Sputum - Expectorated Aerobic Culture - Preliminary 11/18/23 21:30 Sputum - Expectorated Gram Stain - Final Meds Allergies and Active Meds Allergies Penicillins Allergy (Unknown, Verified 11/18/23 16:01) Unknown Reaction sulfamethoxazole Allergy (Unknown, Verified 11/18/23 16:01) hives Active Meds: Active Medications Generic Name Dose Route Start Last Admin Trade Name Freq PRN Reason Stop Dose Admin Acetaminophen 650 mg 11/18/23 17:10 Acetaminophen 325 Mg Tablet PO 11/17/24 17:09 Q6HR PRN Pain Scale 1 - 3 or fever Hydrocodone Bitart/Acetaminophen 1 tab 11/18/23 17:18 Hydrocodone/Acetaminophen 5-325 Mg Tablet PO Q8H PRN Pain Albuterol/Ipratropium 3 ml 11/18/23 20:00 11/20/23 10:04 Ipratropium/Albuterol 0.5-3 Mg 3 Ml Ampul.Neb INHALATION 11/17/24 19:59 3 ml QID.RESP ANUSHA Administration Alprazolam 0.25 mg 11/18/23 22:04 11/18/23 22:54 Alprazolam 0.25 Mg Tablet PO 05/16/24 22:03 0.25 mg Q6H PRN Administration Anxiety Amantadine HCl 100 mg 11/19/23 09:00 11/20/23 09:29 Amantadine 100 Mg Capsule PO 11/18/24 08:59 100 mg DAILY ANUSHA Administration Amlodipine Besylate 5 mg 11/19/23 09:00 11/20/23 09:30 Amlodipine 5 Mg Tablet PO 11/18/24 08:59 5 mg DAILY ANUSHA Administration Aspirin 81 mg 11/19/23 09:00 11/20/23 09:30 Aspirin 81 Mg Tab.Chew PO 11/18/24 08:59 81 mg DAILY ANUSHA Administration Atorvastatin Calcium 40 mg 11/18/23 22:00 11/19/23 21:22 Atorvastatin 40 Mg Tablet PO 11/17/24 21:59 Not Given HS [facility] Enoxaparin Sodium 40 mg 11/19/23 11:15 11/20/23 09:30 Enoxaparin 40 Mg/0.4 Ml Syringe SUBCUT 11/18/24 11:14 40 mg DAILY@1000 ANUSHA Administration Furosemide 40 mg 11/19/23 09:00 11/20/23 09:30 Furosemide 40 Mg Tablet PO 11/18/24 08:59 40 mg DAILY ANUSHA Administration Magnesium Sulfate 2 gm in 50 mls @ 25 mls/hr 11/18/23 17:14 Magnesium Sulf 2gm-*Swfi* IV 11/17/24 17:13 DAILY PRN Magnesium Level < 1.7 Levetiracetam 250 mg 11/18/23 21:00 11/20/23 09:30 Levetiracetam 250 Mg Tablet PO 11/17/24 20:59 250 mg BID ANUSHA Administration Levofloxacin 750 mg 11/20/23 09:00 11/20/23 09:30 Levofloxacin 750 Mg Tablet PO 750 mg Q48HR ANUSHA Administration Levothyroxine Sodium 150 mcg 11/19/23 09:00 11/20/23 09:30 Levothyroxine 150 Mcg Tablet PO 11/18/24 08:59 150 mcg DAILY ANUSHA Administration Loratadine 10 mg 11/19/23 09:00 11/20/23 09:29 Loratadine 10 Mg Tablet PO 11/18/24 08:59 10 mg DAILY ANUSHA Administration Methylprednisolone Sodium Succinate 40 mg 11/18/23 22:00 11/20/23 05:49 Methylprednisolone Sod Succ/Pf 40 Mg/Ml (1ml) Vial IV-PUSH 11/17/24 21:59 40 mg Q8HR ANUSHA Administration Ondansetron HCl 4 mg 11/18/23 17:14 Ondansetron 4 Mg/2 Ml Vial IV-PUSH 11/17/24 17:13 Q6H PRN Nausea And Vomiting Oxcarbazepine 450 mg 11/18/23 22:00 11/20/23 09:30 Oxcarbazepine 150 Mg Tablet PO 11/17/24 21:59 450 mg TID ANUSHA Administration Potassium Chloride 40 meq 11/18/23 17:14 11/18/23 21:54 Potassium Chloride Er 20 Meq Tab.Er.Prt PO 11/17/24 17:13 40 meq DAILY PRN Administration Hypokalemia Pregabalin 200 mg 11/18/23 22:11/20/23 09:30 Pregabalin 100 Mg Capsule PO 05/16/24 22:14 200 mg TID ANUSHA Administration Ropinirole HCl 1 mg 11/18/23 22:00 11/19/23 21:22 Ropinirole 1 Mg Tablet PO 11/17/24 21:59 Not Given QHS ANUSHA Sodium Chloride 0 ml 11/18/23 10:16 11/18/23 10:56 Sodium Chloride 0.9 % 10 Ml Syringe IV-PUSH 11/17/24 10:15 10 ml PRN PRN Administration Flush Sodium Chloride 0 ml 11/18/23 22:00 11/20/23 05:49 Sodium Chloride 0.9 % 10 Ml Syringe IV-PUSH 11/17/24 21:59 10 ml QSHIFT ANUSHA Administration A&P - Hospitalist Assessment/Plan (1) COPD (chronic obstructive pulmonary disease): (2) Shortness of breath: (3) Diabetes: (4) Oxygen dependent: (5) Elevated troponin: Plan # COPD exacerbation # Community-Acquired Pneumonia # Sepsis -Respiratory status shows continued improvement. Patient has been weaned down close to her level of nasal cannula O2. WBC, neutrophils trending down. Chest x-ray does demonstrate interstitial prominence and hazy airspace opacities bilaterally -Continue Levaquin for pneumonia coverage, bronchodilators -Monitor CBC closely -Blood cultures show no growth. -Follow-up sputum culture, acapella, breathing treatments -Maintain on 4 L nasal cannula oxygen # Elevated troponin - Concern for type 2 demand ischemia vs ACS. Much higher suspicion for demand ischemia given patient's hypoxia and likely infection. Troponin down trended - EKG 1 LAFB, J point in AVL, rate related diffuse ST depressions. EKG [address] - Appreciate cardiology input, no concern for ACS. # Peripheral neuropathy - Continue Lyrica # Physical deconditioning- Plan for PT/OT assessment Other chronic medical conditions noted below, continue home regimens unless otherwise specified: Hypothyroidism Hyperlipidemia CODE STATUS: Full code DVT prophylaxis: Lovenox Dr. Aaron Attestation: Patient was personally seen by me on the day of encounter. I reviewed her history and performed galvan elements of exam and formulated the plan of care and confirmed the resident's note above. Plan of care reflects my direct input. Documented By: Mejia Aaron MD 4 1059 Signed By: <Electronically signed by Mejia Aaron MD> 11/20/23 1414 <Electronically signed by RES Meng Eng> 11/20/23 [address] [facility] Work Phone: [phone]) [phone] Consult note Author Anna Child [facility] November 19, 2023 6:50pm Note Date/Time November 19, 2023 6:51pm [facility] [address] [place] [address] Cardiology Consult Note Signed Patient: Conchis Charles MR#: [id number] 826 : 1955 Acct:[id number] Age/Sex: 68 / F Adm Date: 4 Loc: Room: [address] [place] [address] Type: ADM IN Attending Dr: Mejia Aaron MD Copies to: DO Mejia Monzon MD Linda Njoroge, MD~ Cardiology HPI History of Present Illness Consult Date: 11/19/23 Reason for Consult: Elevated troponin HPI: Ms. Charles is a 68 year old female with past medical history significant for COPD,DM 2, hyperlipidemia who presented with 2-day history of worsening dyspnea and was found to have community-acquired pneumonia. Cardiology was consulted for elevated troponin: 500--421--204. EKG on arrival showed sinus tachycardia with first-degree AV block with diffuse ST depressions in the setting of hypoxia. Repeat EKG today shows normal sinus rhythm with no ischemic changes. She complains of chest pain that is pleuritic and related to her cough. Notably shehad similar presentation in July 2023 as well as August 2022 at which point she hada left heart cath that showed minimal coronary artery disease. Review of Systems Review of Systems All other systems reviewed & are negative unless noted below or in HPI [facility] Medical History (Updated 11/18/23 @ 16:43 by Meng Eng DO, RES) Charcot joint of foot Bilateral Pneumonia Hypercalcemia Hypothyroidism Hyperlipidemia Rupture Achilles tendon Left foot rupture with repair Right foot Achilles cut due to charcot foot Feeling of incomplete bladder emptying COPD (chronic obstructive pulmonary disease) Neuropathy Diabetes Surgical History (Updated 09/13/24 @ 16:06 by Elizabeth Bowles RN) History of parathyroidectomy Status post right foot surgery Charcot foot Status post laser cataract surgery of both eyes History of hip surgery H/O thyroidectomy H/O: hysterectomy Family History Father Pneumonia Grandparent Liver disease Maternal Grand Father Maternal Grand Father Grandparent Cancer Maternal Grand Mother Maternal Grand Mother Grandparent Myocardial infarction Legacy FamHx Relation: Paternal Grand Father Paternal Grand Father Heart disease Paternal Grand Father Grandparent Paternal Grand Mother Diabetes Paternal Grand Mother Mother Cancer Legacy FamHx Problem: Diagnosed with Cancer Social History Smoking Status: Former smoker Tobacco Type: cigarettes Substance Use Type: None Substance Abuse Comment: denies illegal drug use. 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 and Allergies Allergies Penicillins Allergy (Unknown, Verified 11/18/23 16:01) Unknown Reaction sulfamethoxazole Allergy (Unknown, Verified 11/18/23 16:01) hives Home Medications aspirin 81 mg chewable tablet 1 tab PO DAILY 06/24/23 [History Confirmed 11/18/23] blood sugar diagnostic (Blood Glucose Test strips) 06/24/23 [History Confirmed 11/18/23] cetirizine 10 mg tablet (Zyrtec) 10 mg PO DAILY 06/24/23 [History Confirmed 11/18/23] levothyroxine 150 mcg tablet 150 mcg PO DAILY 06/24/23 [History Confirmed 11/18/23] nebulizer accessories (Adult Aerosol Mask) 06/24/23 [History Confirmed 11/18/23] omega-3 fatty acids 1,000 mg capsule 1,000 mg PO DAILY 06/24/23 [History Confirmed 11/18/23] oxcarbazepine 300 mg tablet (Trileptal) 450 mg PO TID 06/24/23 [History Confirmed 11/18/23] umeclidinium 62.5 mcg-vilanterol 25 mcg/actuation powdr for inhalation (Anoro Ellipta) 1 inh inhalation DAILY 06/24/23 [History Confirmed 11/18/23] levetiracetam 250 mg tablet 250 mg PO BID 07/26/23 [History Confirmed 11/18/23] albuterol sulfate 2.5 mg/3 mL (0.083 %) solution for nebulization 2.5 mg (3 mL) inhalation Q3H PRN Shortness Of Breath #0 mL 08/11/23 [Rx Confirmed 11/18/23] ropinirole 1 mg tablet 1 mg PO QHS #14 tabs 08/11/23 [Rx Confirmed 11/18/23] alpha lipoic acid 200 mg capsule 600 mg PO TID 08/18/23 [History Confirmed 11/18/23] Oxygen 10/11/23 [History Confirmed 11/18/23] pregabalin 200 mg capsule (Lyrica) 200 mg PO TID 10/11/23 [History Confirmed 11/18/23] amantadine HCl 100 mg tablet 100 mg PO DAILY #90 tabs 10/18/23 [Rx Confirmed 11/18/23] amlodipine 5 mg tablet 5 mg PO DAILY #90 tabs 10/18/23 [Rx Confirmed 11/18/23] furosemide 40 mg tablet 40 mg PO DAILY #90 tabs 10/18/23 [Rx Confirmed 11/18/23] hydrocodone-homatropine 5 mg-1.5 mg/5 mL oral syrup 5 ml PO Q6HR PRN cough 3 days #60 mL 10/18/23 [Rx Confirmed 11/18/23] potassium chloride 20 mEq tablet,extended release 20 meq PO BID 90 days #180 tabs 10/18/23 [Rx Confirmed 11/18/23] Inogen Battery #1 ea 10/20/23 [Rx Confirmed 11/18/23] atorvastatin 40 mg tablet 40 mg PO HS #90 tabs 11/08/23 [Rx Confirmed 11/18/23] albuterol sulfate 90 mcg/actuation aerosol inhaler 2 puff inhalation Q8HR PRN shortness of breath or wheezing 11/18/23 [History Confirmed 11/18/23] Exam Physical Exam Vital Signs: Temp Pulse Resp BP Pulse Ox O2 Del Method O2 Flow Rate 97.7 F 63 18 120/75 97 Nasal Cannula 4 11/19/23 18:36 11/19/23 18:36 11/19/23 18:36 11/19/23 18:36 11/19/23 18:36 11/19/23 18:36 11/19/23 16:13 Narrative: GEN: AAOx3. No acute distress. Neck: No JVD. Lungs: Scattered rhonchi bilaterally Heart: Regular rate and rhythm. Normal S1 and S2. No murmurs or rubs appreciated. Abdomen: Soft, nontender, nondistended, bowel sounds present. Extremities: No BLE edema. Neuro: AAOx3. No focal deficits. Results - Cardiology Labs 11/19/23 12:11 11/19/23 12:11 Lab results: Cardiac Enzymes 11/19/23 Range/Units 12:11 AST 67 H (13-39) U/L CBC 11/19/23 Range/Units 12:11 RBC 3.87 (3.60-5.00) X10E6/uL Hgb 11.3 L (11.8-15.4) g/dL Hct 34.5 (34.0-46.4) % Plt Count 168 (150-450) x10E3/uL Neut # (Auto) 11.9 H (1.8-7.7) x10E3/uL Lymph # (Auto) 0.7 L (1.00-4.8) x10E3/uL Toole # (Auto) 0.4 (0.0-0.8) x10E3/uL Eos # (Auto) 0.0 (0.0-0.45) x10E3/uL Baso # (Auto) 0.0 (0.0-0.2) x10E3/uL Comprehensive Metabolic Panel 11/19/23 Range/Units 12:11 Sodium 144 (136-145) mmol/L Potassium 3.9 (3.5-5.1) mmol/L Chloride 103 (98-107) mmol/L Carbon Dioxide 30.6 (21.0-31.0) mmol/L BUN 33 H (7-25) mg/dL Creatinine 1.08 (0.60-1.20) mg/dL Glucose 158 H (70-100) mg/dL Calcium 8.8 (8.6-10.3) mg/dL AST 67 H (13-39) U/L ALT 44 (7-52) U/L Alkaline Phosphatase 73 (34-104) U/L Total Protein 5.9 L (6.4-8.9) gm/dL Albumin 3.6 (3.5-5.7) gm/dL Intake and Output 11/19/23 11/19/23 11/19/23 07:59 15:59 23:59 Intake Total 250 / 250 Output Total 0 / 0 Balance 250 / 250 Intake: Oral 250 / 250 Output: Stool 0 / 0 Other: # Incontinent Voids 3 # Bowel Movements 0 Weight 74.9 kg Date of Last Bowel Movement 11/18/23 11/18/23 Patient Weight 11/19/23 23:59 Weight 74.9 kg Lab 11/18/23 11/19/23 10:24 12:11 PT 14.3 H 12.1 INR 1.2 1.0 APTT 31.3 29.8 A&P - Cardiology (1) Pneumonia: Code(s): J18.9 - Pneumonia, unspecified organism (2) Shortness of breath: Code(s): R06.02 - Shortness of breath (3) Acute exacerbation of chronic obstructive pulmonary disease: Code(s): J44.1 - Chronic obstructive pulmonary disease with (acute) exacerbation (4) Elevated troponin: Code(s): R79.89 - Other specified abnormal findings of blood chemistry (5) COPD (chronic obstructive pulmonary disease): Qualifiers: COPD type: emphysema Emphysema type: unspecified Qualified Code(s): J43.9 - Emphysema, unspecified Code(s): J44.9 - Chronic obstructive pulmonary disease, unspecified (6) CAP (community acquired pneumonia): Code(s): J18.9 - Pneumonia, unspecified organism Plan Assessment: Non-ACS troponin elevation in the setting of pneumonia Community-acquired pneumonia COPD Recommendations: -No concern for ACS. Ischemic changes are likely in the setting of hypoxia which have now resolved. No indication for ischemic evaluation. -Continue management of pneumonia per primary team. -Follow-up with [facility] cardiology as scheduled -Will sign off. Please call with questions. Documented By: Anna Child MD 11/19/23 3133 Signed By: <Electronically signed by Anna Child MD> 11/19/23 [address] [facility] Work Phone: [phone] 198-787209-14-2024 Progress note Author Mejia Aaron [facility] November 19, 2023 11:18am Note Date/Time November 19, 2023 10:57am [facility] [address] [place] [address] Hospitalist Progress Note Signed Patient: Conchis Charles MR#: [id number] 826 : 1955 Acct:[id number] Age/Sex: 68 / F Adm Date: 4 Loc: 3T Room: [address] [place] [address] Type: ADM IN Attending Dr: Mejia Aaron MD Copies to: ~ Date of Service: 11/19/2023 Subjective Subjective Narrative: Respiratory status significantly improved today. Patient denies any fever/chillovernight. She is breathing comfortably on her home level of nasal cannula O2. She does still have cough with sputum production, but the sputum is clearing up. Exam Physical Exam Vital Signs: Temp Pulse Resp BP Pulse Ox O2 Del Method O2 Flow Rate 98.6 F 56 L 20 116/67 100 Nasal Cannula 4 11/19/23 08:00 11/19/23 08:00 11/19/23 08:00 11/19/23 08:00 11/19/23 08:00 11/19/23 08:00 11/19/23 08:00 Narrative: Constitutional: Frail, elderly WF, resting in bed in no acute distress HEENT: Moist mucous membranes, neck supple, no JVD Cardiovascular: RRR, no M/R/G, normal S1 and S2 Respiratory: Diminished throughout, no wheezes, rales or rhonchi GI: Soft, NTND, NABS : Deferred Extremities: No clubbing, cyanosis or edema Neuro: AO x 3, no focal deficits Skin: No rashes or lesions noted upon anterior inspection Psych: Calm, cooperative and conversant Objective Lab Results 11/18/23 10:24 11/18/23 10:24 Microbiology Results Microbiology 11/18/23 10:50 Blood - Right Forearm Blood Culture - Preliminary No Growth 1 Day 11/18/23 10:24 Blood - Right Antecubital Blood Culture - Preliminary No Growth 1 Day 11/18/23 21:30 Sputum - Expectorated Gram Stain - Final 11/18/23 11:13 Nasopharyngeal SARS-CoV-2, Influenza & RSV (PCR) - Final Meds Allergies and Active Meds Allergies Penicillins Allergy (Unknown, Verified 11/18/23 16:01) Unknown Reaction sulfamethoxazole Allergy (Unknown, Verified 11/18/23 16:01) hives Active Meds: Active Medications Generic Name Dose Route Start Last Admin Trade Name Freq PRN Reason Stop Dose Admin Acetaminophen 650 mg 11/18/23 17:10 Acetaminophen 325 Mg Tablet PO 11/17/24 17:09 Q6HR PRN Pain Scale 1 - 3 or fever Hydrocodone Bitart/Acetaminophen 1 tab 11/18/23 17:18 Hydrocodone/Acetaminophen 5-325 Mg Tablet PO Q8H PRN Pain Albuterol/Ipratropium 3 ml 11/18/23 20:00 11/19/23 07:46 Ipratropium/Albuterol 0.5-3 Mg 3 Ml Ampul.Neb INHALATION 11/17/24 19:59 3 ml QID.RESP ANUSHA Administration Alprazolam 0.25 mg 11/18/23 22:04 11/18/23 22:54 Alprazolam 0.25 Mg Tablet PO 05/16/24 22:03 0.25 mg Q6H PRN Administration Anxiety Amantadine HCl 100 mg 11/19/23 09:00 11/19/23 09:41 Amantadine 100 Mg Capsule PO 11/18/24 08:59 100 mg DAILY ANUSHA Administration Amlodipine Besylate 5 mg 11/19/23 09:00 11/19/23 09:41 Amlodipine 5 Mg Tablet PO 11/18/24 08:59 5 mg DAILY ANUSHA Administration Aspirin 81 mg 11/19/23 09:00 11/19/23 09:41 Aspirin 81 Mg Tab.Chew PO 11/18/24 08:59 81 mg DAILY ANUSHA Administration Atorvastatin Calcium 40 mg 11/18/23 22:00 11/18/23 21:39 Atorvastatin 40 Mg Tablet PO 11/17/24 21:59 40 mg HS ANUSHA Administration Furosemide 40 mg 11/19/23 09:00 11/19/23 09:41 Furosemide 40 Mg Tablet PO 11/18/24 08:59 40 mg DAILY ANUSHA Administration Magnesium Sulfate 2 gm in 50 mls @ 25 mls/hr 11/18/23 17:14 Magnesium Sulf 2gm-*Swfi* IV 11/17/24 17:13 DAILY PRN Magnesium Level < 1.7 Levetiracetam 250 mg 11/18/23 21:00 11/19/23 09:41 Levetiracetam 250 Mg Tablet PO 11/17/24 20:59 250 mg BID ANUSHA Administration Levofloxacin 750 mg 11/20/23 09:00 Levofloxacin 750 Mg Tablet PO Q48HR ANUSHA Levothyroxine Sodium 150 mcg 11/19/23 09:00 11/19/23 09:41 Levothyroxine 150 Mcg Tablet PO 11/18/24 08:59 150 mcg DAILY ANUSHA Administration Loratadine 10 mg 11/19/23 09:00 11/19/23 09:41 Loratadine 10 Mg Tablet PO 11/18/24 08:59 10 mg DAILY ANUSHA Administration Methylprednisolone Sodium Succinate 40 mg 11/18/23 22:00 11/19/23 05:17 Methylprednisolone Sod Succ/Pf 40 Mg/Ml (1ml) Vial IV-PUSH 11/17/24 21:59 40 mg Q8HR ANUSHA Administration Ondansetron HCl 4 mg 11/18/23 17:14 Ondansetron 4 Mg/2 Ml Vial IV-PUSH 11/17/24 17:13 Q6H PRN Nausea And Vomiting Oxcarbazepine 450 mg 11/18/23 22:00 11/19/23 09:41 Oxcarbazepine 150 Mg Tablet PO 11/17/24 21:59 450 mg TID ANUSHA Administration Potassium Chloride 40 meq 11/18/23 17:14 11/18/23 21:54 Potassium Chloride Er 20 Meq Tab.Er.Prt PO 11/17/24 17:13 40 meq DAILY PRN Administration Hypokalemia Pregabalin 200 mg 11/18/23 22:15 11/19/23 09:41 Pregabalin 100 Mg Capsule PO 05/16/24 22:14 200 mg TID ANUSHA Administration Ropinirole HCl 1 mg 11/18/23 22:00 11/18/23 21:38 Ropinirole 1 Mg Tablet PO 11/17/24 21:59 1 mg QHS ANUSHA Administration Sodium Chloride 0 ml 11/18/23 10:16 11/18/23 10:56 Sodium Chloride 0.9 % 10 Ml Syringe IV-PUSH 11/17/24 10:15 10 ml PRN PRN Administration Flush Sodium Chloride 0 ml 11/18/23 22:00 11/19/23 05:18 Sodium Chloride 0.9 % 10 Ml Syringe IV-PUSH 11/17/24 21:59 20 ml QSHIFT ANUSHA Administration A&P - Hospitalist Assessment/Plan (1) COPD (chronic obstructive pulmonary disease): (2) Shortness of breath: (3) Diabetes: (4) Oxygen dependent: (5) Elevated troponin: Plan # COPD exacerbation # Community-Acquired Pneumonia # Sepsis Respiratory status significantly improved. Patient has been weaned down close to her level of nasal cannula O2. Labs pending at the time of my assessment. Chest x- ray does demonstrate interstitial prominence and hazy airspace opacitiesbilaterally -Continue Levaquin for pneumonia coverage, bronchodilators -Monitor CBC closely -Follow-up sputum culture, acapella, breathing treatments -Maintain on 4 L nasal cannula oxygen # Elevated troponin - Concern for type 2 demand ischemia vs ACS. Much higher suspicion for demand ischemia given patient's hypoxia and likely infection. Troponin down trended - EKG 1 LAFB, J point in AVL, rate related diffuse ST depressions. EKG [address] -Continue to trend troponins -Consult cardiology given the level of troponin elevation, but will continue treatment for pneumonia and COPD exacerbation # Peripheral neuropathy - Continue Lyrica # Physical deconditioning- Plan for PT/OT assessment Other chronic medical conditions noted below, continue home regimens unless otherwise specified: Hypothyroidism Hyperlipidemia CODE STATUS: Full code DVT prophylaxis: Lovenox Documented By: Mejia Aaron MD 4 1056 Signed By: <Electronically signed by Mejia Aaron MD> 11/19/23 4[address] [facility] Work Phone: [phone] 449-668909-13-2024 History and physical note Author Mejia Aaron [facility] November 18, 2023 9:23pm Note Date/Time November 18, 2023 6:26pm [facility] [address] [place] [address] Hospitalist H&P Signed with Addenda Patient: Conchis Charles MR#: [id number] 826 : 1955 Acct:[id number] Age/Sex: 68 / F Adm Date: 4 Loc: Room: [address] [place] [address] Type: ADM IN Attending Dr: Mejia Aaron MD Copies to: DO Mejia Monzon MD~ ADDENDUM1 Dr. Aaron Attestation: Patient was personally seen by me on the day of encounter. I reviewed her history and performed galvan elements of exam and formulated the plan of care and confirmed the resident's note below. Plan of care reflects my direct input. Continue with DuoNebs, steroids, Levaquin. Monitor respiratory status closely. Continue home medications otherwise and wean down to home level of O2 Addendum Documented By: Mejia Aaron MD 11/18/232122 Addendum Signed By: <Electronically signed by Mejia Aaron MD> 11/18/232122 HPI DATE OF EXAMINATION: 11/18/23 CHIEF COMPLAINT: SOB HISTORY OF PRESENT ILLNESS: Patient is 68-year-old female with history of COPD, diabetes, hyperlipidemia presenting with 2 days of worsening shortness of breath. She states it is present at baseline. She reports that she has a chronic cough that has recently worsened and changed colors from green to brown. She also reports 1 episode of diarrhea last night in bed. She has been in and out of the hospital and to [facility] in [place] for the past 2 and half months, she has also been hospitalized for COVID-related pneumonia. She has also been admitted previouslyfor COPD exacerbations. For her COPD, she does 2-3 nebulizer treatments per day and Anoro at bedtime, but she has not taken her medication in 2 days. She says she has not smoked in 17 weeks. She does not report any improvement with the steroids, antibiotics, and breathing treatment performed in the ER, but was weaned from a 10 L mask down to her home 4 L nasal cannula oxygen. Review of Systems Constitutional Constitutional: Reports malaise Eyes Eyes: Reports system reviewed and no additional complaints, except as documented ENT Ears, Nose, Mouth, and Throat: Reports system reviewed and no additional complaints, except as documented Cardiovascular Cardiovascular: Denies chest pain and Denies leg edema Respiratory Respiratory: Reports change in phlegm color (green to brown), Reports cough and Reports dyspnea Gastrointestinal Gastrointestinal: Reports loose stools Genitourinary Genitourinary: Reports system reviewed and no additional complaints, except as documented Musculoskeletal Musculoskeletal: Reports system reviewed and no additional complaints, except asdocumented Integumentary/Breasts Skin/Breast: Reports system reviewed and no additional complaints, except as documented Neurologic Neurologic: Reports system reviewed and no additional complaints, except as documented Psychiatric Psychiatric: Reports system reviewed and no additional complaints, except as documented Endocrine Endocrine: Reports system reviewed and no additional complaints, except as documented Hematologic/Lymphatic Hematologic/Lymphatic: Reports system reviewed and no additional complaints, except as documented Allergic/Immunologic Allergic/Immunologic: Reports system reviewed and no additional complaints, except as documented [facility] Medical History (Updated 11/18/23 @ 16:43 by Meng Eng DO, RES) Charcot joint of foot Bilateral Pneumonia Hypercalcemia Hypothyroidism Hyperlipidemia Rupture Achilles tendon Left foot rupture with repair Right foot Achilles cut due to charcot foot Feeling of incomplete bladder emptying COPD (chronic obstructive pulmonary disease) Neuropathy Diabetes Surgical History (Updated 11/18/23 @ 16:06 by Elizabeth Bowles RN) History of parathyroidectomy Status post right foot surgery Charcot foot Status post laser cataract surgery of both eyes History of hip surgery H/O thyroidectomy H/O: hysterectomy Family History Father Pneumonia Grandparent Liver disease Maternal Grand Father Maternal Grand Father Grandparent Cancer Maternal Grand Mother Maternal Grand Mother Grandparent Myocardial infarction Legacy FamHx Relation: Paternal Grand Father Paternal Grand Father Heart disease Paternal Grand Father Grandparent Paternal Grand Mother Diabetes Paternal Grand Mother Mother Cancer Legacy FamHx Problem: Diagnosed with Cancer Social History Smoking Status: Former smoker Tobacco Type: cigarettes Substance Use Type: None Substance Abuse Comment: denies illegal drug use. 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 and Allergies Allergies Penicillins Allergy (Unknown, Verified 11/18/23 16:01) Unknown Reaction sulfamethoxazole Allergy (Unknown, Verified 11/18/23 16:01) hives Home Medications aspirin 81 mg chewable tablet 1 tab PO DAILY 06/24/23 [History Confirmed 11/18/23] blood sugar diagnostic (Blood Glucose Test strips) 06/24/23 [History Confirmed 11/18/23] cetirizine 10 mg tablet (Zyrtec) 10 mg PO DAILY 06/24/23 [History Confirmed 11/18/23] levothyroxine 150 mcg tablet 150 mcg PO DAILY 06/24/23 [History Confirmed 11/18/23] nebulizer accessories (Adult Aerosol Mask) 06/24/23 [History Confirmed 11/18/23] omega-3 fatty acids 1,000 mg capsule 1,000 mg PO DAILY 06/24/23 [History Confirmed 11/18/23] oxcarbazepine 300 mg tablet (Trileptal) 450 mg PO TID 06/24/23 [History Confirmed 11/18/23] umeclidinium 62.5 mcg-vilanterol 25 mcg/actuation powdr for inhalation (Anoro Ellipta) 1 inh inhalation DAILY 06/24/23 [History Confirmed 11/18/23] levetiracetam 250 mg tablet 250 mg PO BID 07/26/23 [History Confirmed 11/18/23] albuterol sulfate 2.5 mg/3 mL (0.083 %) solution for nebulization 2.5 mg (3 mL) inhalation Q3H PRN Shortness Of Breath #0 mL 08/11/23 [Rx Confirmed 11/18/23] ropinirole 1 mg tablet 1 mg PO QHS #14 tabs 08/11/23 [Rx Confirmed 11/18/23] alpha lipoic acid 200 mg capsule 600 mg PO TID 08/18/23 [History Confirmed 11/18/23] Oxygen 10/11/23 [History Confirmed 11/18/23] pregabalin 200 mg capsule (Lyrica) 200 mg PO Q8HR 10/11/23 [History Confirmed 11/18/23] amantadine HCl 100 mg tablet 100 mg PO DAILY #90 tabs 10/18/23 [Rx Confirmed 11/18/23] amlodipine 5 mg tablet 5 mg PO DAILY #90 tabs 10/18/23 [Rx Confirmed 11/18/23] furosemide 40 mg tablet 40 mg PO DAILY #90 tabs 10/18/23 [Rx Confirmed 11/18/23] hydrocodone-homatropine 5 mg-1.5 mg/5 mL oral syrup 5 ml PO Q6HR PRN cough 3 days #60 mL 10/18/23 [Rx Confirmed 11/18/23] potassium chloride 20 mEq tablet,extended release 20 meq PO BID 90 days #180 tabs 10/18/23 [Rx Confirmed 11/18/23] Inogen Battery #1 ea 10/20/23 [Rx Confirmed 11/18/23] atorvastatin 40 mg tablet 40 mg PO HS #90 tabs 11/08/23 [Rx Confirmed 11/18/23] albuterol sulfate 90 mcg/actuation aerosol inhaler 2 puff inhalation Q8HR PRN shortness of breath or wheezing 11/18/23 [History Confirmed 11/18/23] Exam Physical Exam Vital Signs: Temp Pulse Resp BP Pulse Ox O2 Del Method O2 Flow Rate 98.3 F 77 18 122/73 98 Nasal Cannula 4 11/18/23 15:34 11/18/23 15:34 11/18/23 15:34 11/18/23 15:34 11/18/23 15:34 11/18/23 15:34 11/18/23 15:34 Narrative: GENERAL: Alert, oriented, appears stated age, in moderate distress HEENT: NC/AT, EOMI, PERRL, conjunctiva clear CARDIOVASCULAR: Regular rate and regular rhythm, no murmurs/rubs/gallops RESPIRATORY: 4L via NC, scattered wheezing ABDOMEN: Soft, non-tender, non-distended, normal bowel sounds BACK: No midline or paraspinal tenderness EXTREMITIES: moving all extremities well. Well-perfused. Sensation intact. No edema SKIN: Intact, no rash, no trauma NEURO: Cranial nerves grossly intact, no focal neurologic signs PSYCHIATRIC: Good eye contact, appropriate mood and affect, cooperative Results - Hospitalist H&P Lab Results Labs: Laboratory Last Values Corrected WBC 20.1 X10E3/uL (3.8-11.6) H 11/18/23 10:24 Uncorrected WBC Count 20.1 x10E3/uL (3.8-11.6) H 11/18/23 10:24 RBC 4.26 X10E6/uL (3.60-5.00) 11/18/23 10:24 Hgb 12.3 g/dL (11.8-15.4) 11/18/23 10:24 Hct 37.6 % (34.0-46.4) 11/18/23 10:24 MCV 88.2 fl (80-100) 11/18/23 10:24 MCH 28.9 pg (24.7-34.3) 11/18/23 10:24 MCHC 32.7 g/dL (32.0-35.0) 11/18/23 10:24 RDW 14.5 % (11.9-15.3) 11/18/23 10:24 Plt Count 193 x10E3/uL (150-450) 11/18/23 10:24 MPV 8.3 fl (6.3-10.7) 11/18/23 10:24 Neut % (Auto) 89.3 % (.) 11/18/23 10:24 Lymph % (Auto) 4.0 % (.) 11/18/23 10:24 Toole % (Auto) 6.4 % (.) 11/18/23 10:24 Eos % (Auto) 0.0 % (.) 11/18/23 10:24 Baso % (Auto) 0.3 % (.) 11/18/23 10:24 Nucleat RBC Rel Count 0.1 /100 WBC (0-0.5) 11/18/23 10:24 Neut # (Auto) 18.0 x10E3/uL (1.8-7.7) H 11/18/23 10:24 Lymph # (Auto) 0.8 x10E3/uL (1.00-4.8) L 11/18/23 10:24 Toole # (Auto) 1.3 x10E3/uL (0.0-0.8) H 11/18/23 10:24 Eos # (Auto) 0.0 x10E3/uL (0.0-0.45) 11/18/23 10:24 Baso # (Auto) 0.1 x10E3/uL (0.0-0.2) 11/18/23 10:24 Monocyte Dist Width 25.52 % (0.00-20.00) H 11/18/23 10:24 PT 14.3 Seconds (9.0-12.9) H 11/18/23 10:24 INR 1.2 11/18/23 10:24 APTT 31.3 Seconds (25.1-36.5) 11/18/23 10:24 PHA Creatinine Clear 41.24 11/18/23 10:24 Sodium 143 mmol/L (136-145) 11/18/23 10:24 Potassium 3.3 mmol/L (3.5-5.1) L 11/18/23 10:24 Chloride 101 mmol/L (98-107) 11/18/23 10:24 Carbon Dioxide 28.7 mmol/L (21.0-31.0) 11/18/23 10:24 Anion Gap 16.6 mEq/L (6.0-15.0) H 11/18/23 10:24 BUN 24 mg/dL (7-25) 11/18/23 10:24 Creatinine 1.33 mg/dL (0.60-1.20) H 11/18/23 10:24 Est GFR (CKD-EPI) 43.042 mL/Min 11/18/23 10:24 Glucose 146 mg/dL (70-100) H 11/18/23 10:24 Lactic Acid 1.6 mmol/L (0.5-2.2) 11/18/23 10:24 Calcium 9.2 mg/dL (8.6-10.3) 11/18/23 10:24 Total Bilirubin 1.3 mg/dl (0.3-1.0) H 11/18/23 10:24 Troponin I High Sens 500.7 pg/mL (0.0-15.0) H* 11/18/23 12:35 B-Natriuretic Peptide 418.0 pg/mL (5-100) H 11/18/23 10:24 SARS-CoV-2 Rap RNA(RT-PCR) Negative (Negative) 11/18/23 11:13 Microbiology Results Micro: Microbiology - Results from entire visit 11/18/23 11:13 Nasopharyngeal SARS-CoV-2, Influenza & RSV (PCR) - Final Assessment & Plan Assessment/Plan (1) COPD (chronic obstructive pulmonary disease): (2) Shortness of breath: (3) Diabetes: (4) Oxygen dependent: (5) Elevated troponin: Plan # COPD exacerbation # Community-Acquired Pneumonia - Concern for pneumonia vs COPD exacerbation - In the ER the patient received fluids, Tylenol for fever, Levaquin for pneumonia coverage, 2 breathing treatments. COVID negative. - WBC 20.1, Neutrophils 18, BNP 418 - Chest x-ray shows chronic interstitial prominence with hazy airspace opacitiesbilaterally. No acute cardiopulmonary pathology noted. - Continue levaquin - Ordered sputum culture, acapella, breathing treatments # Elevated troponin - Concern for type 2 demand ischemia vs ACS. Much higher suspicion for demand ischemia given patient's hypoxia and likely infection. - Initial troponin 311.7, redraw 2 hours later was 500.7 - EKG 1 LAFB, jpoint in AVL, rate related diffuse ST depressions. EKG [address] depressions. # Peripheral neuropathy - Continue Lyrica Other chronic medical conditions noted below, continue home regimens unless otherwise specified: Hypothyroidism Hyperlipidemia Diabetes mellitus type 2 CODE STATUS: Full code IP vs OBS Justification Based on differential dx, clinical care plan, and risk of adverse events, if untreated, in my clinical judgement this patient requires an acute care setting as: INPATIENT because of an expectation of an over 2 midnight stay. Estimated length of stay (# of days): 2 Documented By: Mejia Aaron MD [id number] Signed By: <Electronically signed by Mejia Aaron MD> 11/18/230 <Electronically signed by DO ELZA Eng> 11/18/23 1825 [facility] Work Phone: 1(534) 227-497809-13-2024 Evaluation note* Diagnosis Onset Date Resolution Status Admit Date Acute exacerbation of chroni c obstructive pulmonary disease acute Se ptember 2023 2:31pm CAP (community acquired pneumonia) acute November 18, 2023 2:31pm COPD (chronic obstructive pulmonary disease) acute November 2:31pm Diabetes acute November 2:31pm Elevated troponin acute Septemb er 2023 2:31pm Oxygen dependent acute Septembe r 2023 2:31pm Sepsis resolved November 2:31pm Pneumonia deleted November 2:31pm Shortness of breath deleted Septe mber 2023 2:31pm [facility] Work Phone: 1([phone]) 185-932409-13-2024 Evaluation note* Diagnosis Onset Date Resolution Status Admit Date Acute exacerbation of chroni c obstructive pulmonary disease acute Se ptember 2023 2:31pm CAP (community acquired pneumonia) acute November 18, 2023 2:31pm COPD (chronic obstructive pulmonary disease) acute November 2:31pm Diabetes acute November 2:31pm Elevated troponin acute Septemb er 2023 2:31pm Oxygen dependent acute Septembe r 2023 2:31pm Sepsis resolved November 2:31pm Pneumonia deleted November 2:31pm Shortness of breath deleted Septe mber 2023 2:31pm COPD (chronic obstructive pulmonary disease) acute January 10:39am Oxygen dependent acute January 24, 2024 10:39am [facility] Work Phone: 1(502) 480-952309-13-2024 Evaluation note* Diagnosis Onset Date Resolution Status Admit Date Acute exacerbation of chroni c obstructive pulmonary disease acute Se ptember 2023 2:31pm CAP (community acquired pneumonia) acute November 18, 2023 2:31pm COPD (chronic obstructive pulmonary disease) acute November 2:31pm Diabetes acute November 2:31pm Elevated troponin acute Septemb er 2023 2:31pm Oxygen dependent acute Septembe r 2023 2:31pm Sepsis resolved November 2:31pm Pneumonia deleted November 2:31pm Shortness of breath deleted Sept mber 2023 2:31pm Chronic respiratory failure with hypoxia, on home O2 therapy acute January 23, 2 024 10:39am COPD (chronic obstructive pulmonary disease) acute January 10:39am Oxygen dependent acute January 24, 2024 10:39am Chronic respiratory failure with hypoxia, on home O2 therapy acute January 24, 024 10:32am COPD (chronic obstructive pulmonary disease) acute January 10:32am Diabetes acute January 25, 2024 10:32am Neuropathy acute January 25, 2024 10:32am Nicotine dependence acute 2023 10:32am Oxygen dependent acute January 25, 2024 10:32am [facility] Work Phone: 1(465) 370-816806-17-2024 Evaluation + Plan note* Assessment & Plan Note - MADELINE Coates - 08/22/2023 3:53 PM EDTAssociated Problem(s): Former smoker Has been able to abstain for 5 weeks [facility] Work Phone: [phone]) 737-525406-17-2024 Miscellaneous Notes* Assessment & Plan Note - MADELINE Coates - 08/22/2023 3:53 PM EDTAssociated Problem(s): Former smoker Has been able to abstain for 5 weeks [facility] [place] Work Phone: 1([phone]) 290-913706-17-2024 History of Present illness Narrative* MADELINE Coates - 08/22/2023 3:30 PM EDT Chief Complaint I am slowly recovering Reason for Visit Patient presents to the office today for outpatient follow-up for hospital follow-up. This is initial in clinic evaluation at [facility]. Presents today in wheelchair for ease of transport, is currently at SNF undergoing physical therapy. Accompanied by spouse History of Present Illness Patient was recently hospitalized at [facility]. The patient was seen in Cardiology consult with subsequent cardiovascular management by [facility]. Hospitalization records have been reviewed. Reason for Cardiology Consultation: Trivial elevated troponin in the setting of COPD, sepsis Consulting Social Psychologist: Dr. Galdamez Cardiovascular testing: Unremarkable echocardiogram Changes to cardiovascular medical regimen at time of discharge: No changes to cardiovascular medication Discharge disposition: SNF for comprehensive rehabilitation program. Patient is a very pleasant 68-year-old female who presents to the office today in a wheelchair, utilizing oxygen treatment. She is completing a comprehensive rehabilitation program at [facility] and reportedly was up ambulating for the first time yesterday. She is making slow but steady recovery. Her recent hospitalization was due to COPD, cystitis, sepsis and UMM. She was felt to have a type II non-STEMI in the setting of myocardial mismatch. She was then readmitted due to UMM, reportedly saw nephrology as an outpatient last week and creatinine was down to 0.9. From a cardiovascular standpoint August 2022 cardiac cath with minimal coronary artery disease, LVEF 65%. Her July 2023 inpatient echocardiogram showed LVEF 60 to 65% with no evidence of wall motion abnormality. She has no history of arrhythmia. There is no indication for additional cardiovascular testing or workup at recent hospital discharge. From a risk factor standpoint blood pressure is optimally controlled, treated hyperlipidemia and reports currently is only on insulin due to steroid use. She has a trace of left lower extremity edema due to history of Charcot. Patient reports that overall has no complaint(s) of chest pain, chest pressure/discomfort, exertional chest pressure/discomfort, and near-syncope Review of Systems Constitutional: Positive for malaise/fatigue. Cardiovascular: Negative for chest pain, dyspnea on exertion, irregular heartbeat, leg swelling, near-syncope, orthopnea, palpitations, paroxysmal nocturnal dyspnea and syncope. Respiratory: Positive for cough. Visit Vitals BP 106/56 (BP Location: Left arm, Patient Position: Sitting) Pulse 60 Ht 1.626 m (5' 4 ) Wt 71.8 kg (158 lb 6.4 oz) BMI 27.19 kg/m Smoking Status Former BSA 1.8 m Physical Exam Vitals and nursing note reviewed. HENT: Head: Normocephalic. Cardiovascular: Rate and Rhythm: Normal rate and regular rhythm. Heart sounds: Normal heart sounds. Comments: Trace edema left ankle Pulmonary: Effort: Pulmonary effort is normal. Breath sounds: Examination of the left-lower field reveals rhonchi. Rhonchi present. Abdominal: Palpations: Abdomen is soft. Musculoskeletal: Right lower leg: No edema. Left lower leg: No edema. Skin: General: Skin is warm and dry. Neurological: General: No focal deficit present. Mental Status: She is alert. Psychiatric: Mood and Affect: Mood normal. Behavior: Behavior normal. Allergies Allergen Reactions Penicillins Unknown Other Reaction(s): Unknown, Unknown Reaction Sulfanilamide Rash Other Reaction(s): Unknown Current Outpatient Medications Medication Instructions acetaminophen (TYLENOL) 325 mg, Every 6 hours PRN albuterol 2.5 mg /3 mL (0.083 %) nebulizer solution Every 4 hours PRN albuterol 90 mcg/actuation inhaler 3 times daily RT alpha lipoic acid 200 mg capsule Three times daily amantadine (SYMMETREL) 100 mg amLODIPine (NORVASC) 5 mg, Daily aspirin 81 mg chewable tablet 1 tablet, Daily atorvastatin (LIPITOR) 40 mg, Daily cetirizine (ZYRTEC) 10 mg, Daily jbipwigzpqi-bfbvzizpg-rzhjmhml (TRELEGY-ELLIPTA) 100-62.5-25 mcg blister with device 1 puff, inhalation, Daily furosemide (LASIX) 40 mg, oral, Daily guaiFENesin (MUCINEX) 600 mg, oral, 2 times daily, Do not crush, chew, or split. hydrocodone-homatropine (Hycodan) 5-1.5 mg/5 mL syrup 5 mL, oral, As needed insulin lispro (HumaLOG KwikPen Insulin) 100 unit/mL injection subcutaneous, 3 times daily (morning, midday, late afternoon), Take as directed per insulin instructions. levETIRAcetam (KEPPRA) 250 mg, 2 times daily levothyroxine (SYNTHROID, LEVOXYL) 150 mcg, Daily lisinopril 5 mg, oral, As needed omega 2-ymt-smd-fish oil (Fish OiL) 1,000 mg (120 mg-180 mg) capsule 1 capsule, oral, Daily OXcarbazepine (Trileptal) 300 mg tablet Three times daily oxygen (O2) gas therapy 1 each, inhalation, Continuous, 3 - 3.5 LP)M potassium chloride CR 20 mEq ER tablet 20 mEq, 2 times daily pregabalin (Lyrica) 100 mg capsule 1 capsule, Every 8 hours rOPINIRole (REQUIP) 1 mg, Nightly tiZANidine (ZANAFLEX) 4 mg, Nightly umeclidinium-vilanteroL (Anoro Ellipta) 62.5-25 mcg/actuation blister with device 1 puff, inhalation, Daily Assessment: A 68-year-old female with minimal coronary artery disease, normal LVEF remains stable from a cardiovascular standpoint. Noncardiac hospitalization with incidental finding type II NSTEMI due to myocardial mismatch. No indication for additional testing at this time. Problem List Items Addressed This Visit Coronary artery disease involving [place] coronary artery of [place] heart without angina pectoris - Primary Relevant Medications amLODIPine (Norvasc) 5 mg tablet Essential hypertension Mixed hyperlipidemia Diabetes mellitus type II, non insulin dependent (Multi) COPD (chronic obstructive pulmonary disease) (Multi) Former smoker Has been able to abstain for 5 weeks BMI 27.0-27.9,adult Plan: Through informed decision making process incorporating patients unique circumstances, the followingtreatment plan will be initiated: 1. Prescription drug management of cardiovascular medication for efficacy, adherence to treatment, side effect assessment and polypharmacy. Current treatment clinically warranted and to continue without modifications. 2. Return for follow-up; in the interim, contact the office if new symptoms arise. NOHC as needed Jessica Hi MSN, MEAT SUPERVISOR-ELECTRONICS INSTALLER, PMHNP-[facility] Please excuse any errors in grammar or translation related to this dictation. Voice recognition software was utilized to prepare this document. documented in [facility] encounter[facility] [place] Work Phone: [phone]) 151-574806-17-2024 Instructions* Patient Instructions* MADELINE Coates - 08/22/2023 3:30 PM EDT Please bring all medicines, vitamins, and herbal supplements with you when you come to the office. Prescriptions will not be filled unless you are compliant with your follow up appointments or have a follow up appointment scheduled as per instruction of your physician. Refills should be requested at the time of your visit. Fall Prevention Education Given PLAN: Through informed decision making process incorporating patients unique circumstances, the followingtreatment plan will be initiated: 1. Prescription drug management of cardiovascular medication for efficacy, adherence to treatment, side effect assessment and polypharmacy. Current treatment clinically warranted and to continue without modifications. 2. Return for follow-up; in the interim, contact the office if new symptoms arise. NOHC as needed [facility] Work Phone: [phone]) 251-279006-05-2024 Progress note Author Frank Hudson [facility] August 10, 2023 3:30pm Note Date/Time August 10, 2023 3:25p maliha [facility] [address] [place] [address] Hospitalist Progress Note Signed Patient: Conchis Charles MR#: [id number] : 1955 Acct:[id number] Age/Sex: 68 / F Adm Date: 4 Loc: 4 Room: 2R5755-5 Type: ADM IN Attending Dr: Frank Hudson MD Copies to: ~ Date of Service: 08/10/2023 Subjective Subjective Narrative: Patient was seen and evaluated at bedside. She reports cough with sputum production greenish color as also told nephrology team. Afebrile here, no leukocytosis, hemoglobin stable. Calcium level is stable at 10.1. Kidney function improving. Sputum culture positive noted and reviewed. switched AB to Levaquin for better coverage. Denies chest pain, nausea, vomiting or diarrhea. Gets anxious per staff, added Xanax to help with her anxiety in acute inpatient settings. She still on oxygen 4 L here, usually on 2 L chronically at home. weanoff as tolerated. Exam Physical Exam Vital Signs: Temp Pulse Resp BP Pulse Ox O2 Del Method O2 Flow Rate 98.1 F 62 16 139/77 96 Nasal Cannula 4 08/10/23 15:06 08/10/23 15:06 08/10/23 15:06 08/10/23 15:08/10/23 15:08/10/23 15:08/10/23 15:06 FiO2 2 08/08/23 20:00 Narrative: Const General: cooperative HEENT normal oropharyngeal mucosa without any ulcers or exudates Eyes: Conjunctiva normal Pulmonary Auscultation: Diminished breath sounds on lung bases , no crackles, no wheezes Cardiovascular Rate: normal Rhythm: regular rhythm Heart Sounds: S1 normal, S2 normal and no murmurs GI Inspection: non-distended Palpation: soft, not firm and nontender. No rigidity or rebound. Deferred Neuro General: alert, awake and oriented x3. No obvious new focal deficit Musculoskeletal: normal range of motion Extrem General: no cyanosis, no pedal edema Psych Appearance: appropriate affect. Grossly normal Objective Lab Results 08/10/23 05:51 08/10/23 05:51 Meds Allergies and Active Meds Allergies Penicillins Allergy (Unknown, Verified 07/25/23 21:44) Unknown Reaction sulfamethoxazole Allergy (Unknown, Verified 07/25/23 21:44) hives Active Meds: Active Medications Generic Name Dose Route Start Last Admin Trade Name Freq PRN Reason Stop Dose Admin Acetaminophen 650 mg 08/07/23 00:37 08/09/23 23:44 Acetaminophen 325 Mg Tablet PO 08/06/24 00:36 650 mg Q6HR PRN Administration Pain Scale 1 - 3 or fever Albuterol 1 puff 08/07/23 00:41 08/10/23 02:23 Albuterol Hfa 60 Puff/8 Gram Inhaler INHALATION 08/06/24 00:40 1 puff Q4HR PRN Administration shortness of breath or wheezing Albuterol 2.5 mg 08/10/23 12:31 Albuterol Neb 2.5 Mg/3 Ml Vial.Neb INHALATION 08/09/24 12:30 Q3H PRN Shortness Of Breath Albuterol/Ipratropium 3 ml 08/07/23 08:00 08/10/23 11:52 Ipratropium/Albuterol 0.5-3 Mg 3 Ml Ampul.Neb INHALATION 08/06/24 07:59 3 ml QID.RESP ANUSHA Administration Alprazolam 0.5 mg 08/10/23 11:18 Alprazolam 0.5 Mg Tablet PO 02/06/24 11:17 Q8H PRN anxiety Amantadine HCl 100 mg 08/07/23 09:00 08/10/23 08:07 Amantadine 100 Mg Capsule PO 08/06/24 08:59 100 mg DAILY ANUSHA Administration Amlodipine Besylate 5 mg 08/08/23 11:40 08/10/23 08:07 Amlodipine 5 Mg Tablet PO 08/07/24 11:39 5 mg DAILY ANUSHA Administration Aspirin 81 mg 08/07/23 09:00 08/10/23 08:06 Aspirin 81 Mg Tab.Chew PO 08/06/24 08:59 81 mg DAILY ANUSHA Administration Atorvastatin Calcium 40 mg 08/07/23 09:00 08/10/23 08:07 Atorvastatin 40 Mg Tablet PO 08/06/24 08:59 40 mg DAILY ANUSHA Administration Dextrose 0 gm 08/07/23 00:43 Dextrose 50% In Water 25 Gm/50 Ml Syringe IV-PUSH 08/06/24 00:42 PRN PRN Hypoglycemia Glucose 0 gm 08/07/23 00:43 Dextrose 40% Gel 15 Gm Tube PO 08/06/24 00:42 PRN PRN Hypoglycemia Guaifenesin 600 mg 08/10/23 11:18 Guaifenesin 600 Mg Tab.Er.12h PO 08/09/24 11:17 BID PRN Congestion Heparin Sodium (Porcine) 5,000 unit 08/07/23 06:00 08/10/23 13:24 Heparin 5,000 Unit/Ml Vial SUBCUT 08/06/24 05:59 5,000 unit Q8HR ANUSHA Administration Levofloxacin 750 mg in 150 mls @ 100 mls/hr 08/10/23 11:30 08/10/23 12:43 Levaquin IV 100 mls/hr Q48H ANUSHA Administration Insulin Aspart 0 units 08/07/23 08:00 08/10/23 12:47 Insulin Aspart 300 Units/3 Ml Insuln.Pen SUBCUT 08/06/24 07:59 Not Given TID.WM.HS [facility] Protocol Levetiracetam 250 mg 08/07/23 09:00 08/10/23 08:11 Levetiracetam 250 Mg Tablet PO 08/06/24 08:59 250 mg BID ANUSHA Administration Levothyroxine Sodium 150 mcg 08/07/23 06:30 08/10/23 06:15 Levothyroxine 150 Mcg Tablet PO 08/06/24 06:29 150 mcg DAILY@0630 ANUSHA Administration Oxcarbazepine 450 mg 08/07/23 09:00 08/10/23 13:24 Oxcarbazepine 150 Mg Tablet PO 08/06/24 08:59 450 mg TID ANUSHA Administration Prednisone 30 mg 08/07/23 09:00 08/10/23 08:07 Prednisone 20 Mg Tablet PO 08/21/23 08:59 30 mg DAILY ANUSHA Administration Taper Pregabalin 100 mg 08/08/23 14:00 08/10/23 13:24 Pregabalin 100 Mg Capsule PO 02/04/24 13:59 100 mg TID ANUSHA Administration Prochlorperazine Edisylate 5 mg 08/07/23 00:37 Prochlorperazine Edisylate 10 Mg/2 Ml Vial IV-PUSH 08/06/24 00:36 Q4H PRN Nausea And Vomiting Ropinirole HCl 1 mg 08/10/23 22:00 Ropinirole 1 Mg Tablet PO 08/09/24 21:59 QHS [facility] A&P - Hospitalist Assessment/Plan (1) UMM (acute kidney injury): Plan: Acute kidney injury is improving along with hypercalcemia improving Nephrology input noted and appreciated Calcium is down to 10.1 TSH is within normal limits PTH RP pending Fluid/diuretics management per nephro (2) Hypercalcemia: Plan: Hypercalcemia has improved to 10.1 Continue to monitor Repeat labs for tomorrow order (3) Pneumonia: Plan: Bacterial pneumonia with acute COPD exacerbation present on admission Sputum culture noted for corynebacterium striatum. Patient allergic to penicillin hence we switch to Levaquin for better coverage. On prednisone taper, DuoNebs, Albuterol, for COPD exacerbation Continue with breathing treatment and wean O2 as tolerated On baseline 2 L nasal cannula Breathing treatment CT chest wo contrast ordered. Will follow. (4) COPD exacerbation: Plan: On prednisone taper, DuoNebs, Albuterol PRN, for COPD exacerbation added Mucinex as needed Plan Plan discussed with patient at bedside. All questions answered. Documented By: Frank Hudson MD 08/10/23 15 16 Signed By: <Electronically signed by Frank Hudson MD> 08/10/23 [address] [facility] Work Phone: [phone] 840-815106-05-2024 Progress note Author Joni Davila [facility] August 10, 2023 1:46pm Note Date/Time August 10, 2023 1:46p [facility] ENTER [address] [place] [address] Nephrology Progress Note Signed Patient: Conchis Charles MR#: [id number] 826 : 1955 Acct:[id number] Age/Sex: 68 / F Adm Date: 4 Loc: Room: [address] [place] [address] Type: ADM IN Attending Dr: Frank Hudson MD Copies to: ~ Date of Service: 08/10/2023 Subjective Subjective Narrative: Ms. Charles is a 68-year-old white male was transferred from [facility] for UMM and hypercalcemia creatinine 2.2, BUN 67 and calcium 14.2 mg/dL. Patient has baseline creatinine around 1 mg/dL. The patient was just discharged from [facility] on July 29 after short admission for COPD exacerbation and pneumonia. During that admission she had UMM related to urine retention that improved after insertion of Hanson catheter that was removed at the time of discharge withsuccessful void trial. Initially she was on IV fluid however it was complicatedby CHF and she was given furosemide before discharge. [facility] 0.9 and calcium 9 mg/dL. Patient presented to [place] with generalized weakness, general compartments, shortness of breath and suspected pneumonia. Chest x-ray was concerning for infiltrate for which she was treated with Rocephin and azithromycin. Creatinine was found to be 2.2 mg/dL and calcium was elevated 14.2 as stated above. Patient has been on calcium and vitamin D supplements s/p parathyroidectomy that was held on admission. Patient was started on IV fluid normal saline. Today calcium is down to 12.1 mg/dL and creatinine is down to 1.59 mg/dL. Nephrology was consulted for hypercalcemia and UMM. Chart was reviewed. Patient has intermittent episodes of hypo and hypercalcemiasince 2018. She has thyroidectomy with parathyroidectomy and she has been on calcium and vitamin D. 25-hydroxy vitamin D on admission was in the upper rangeof normal 98 and intact PTH low at 3.6 pg/mL reflecting the parathyroidectomy. Patient stated that she still has generalized weakness. No shortness of breath. No cough, fever or chills. No nausea or vomiting. Lab today showed WBCs count 9.8, Hemoglobin 11.3, sodium 135, potassium 3.9, carbon oxide 31.2, BUN 52 and creatinine down to 1.59 mg/dL. Calcium 12.1 and magnesium 1.7. Albumin 3.4 g/dL. Urine analysis showed clear urine. COVID-19 was negative on admission. Bilateral kidney ultrasound showed no evidence of hydronephrosis or kidney stones. Chest x-ray showed improving airspace opacities with no infiltrate or congestion. Interval history: Patient was seen and examined in her room. Patient is complaining of breathing difficulty and cough productive of greenish sputum. Nasal cannula is up to 5 L/min. Patient continues to be on normal saline 75 cc/h Patient is being treated for COPD exacerbation with antibiotics and prednisone. Blood pressure is slightly better this morning. Remains on Norvasc 5 mg p.o. daily yesterday. Home lisinopril and Lasix remain on hold due to UMM at admission Lab from this morning revealed stable serum creatinine around 1.0 mg deciliter, calcium down to 10.1 milligrams deciliter Last echocardiogram revealed normal ejection fraction 60 to 65% Denied chest pain. No nausea no vomiting Exam Physical Exam Vital Signs: Temp Pulse Resp BP Pulse Ox O2 Del Method O2 Flow Rate 98.0 F 52 L 16 125/61 93 L Nasal Cannula 4 08/10/23 12:46 08/10/23 12:46 08/10/23 12:46 08/10/23 12:46 08/10/23 12:46 08/10/23 12:46 08/10/23 12:46 FiO2 2 08/08/23 20:00 Narrative: General: No acute distress Head :atraumatic normocephalic Eyes: PERRLA. Neck: no JVD no bruit. Heart: S1-S2. RRR Respiratory: Decreased breath sounds over both lung bases. No wheezing. No crackles Abdomen: Soft, positive bowel sounds,no tenderness. Neurology: Awake alert oriented x3. No focal deficits Extremity. No cyanosis. No edema Skin: No skin rash Objective Intake and Output I&O: Intake & Output 08/07/23 08/08/23 08/09/23 08/10/23 23:59 23:59 23:59 23:59 Intake Total 3650 / 3650 4250 / 4250 2009 1550 / 1550 Output Total 1200 / 1200 650 / 650 Balance 2450 / 2450 3600 / 3600 2009 1550 / 1550 Weight 177 lb 7.554 oz 165 lb 5.547 oz 165 lb 2.02 oz 165 lb 12.602 oz Meds and Allergies Meds: Active Medications Acetaminophen (Acetaminophen 325 Mg Tablet) 650 mg PO Q6HR PRN PRN Reason: Pain Scale 1 - 3 or fever Stop: 08/06/24 00:36 Last Admin: 08/09/23 23:44 Dose: 650 mg Albuterol (Albuterol Hfa 60 Puff/8 Gram Inhaler) 1 puff INHALATION Q4HR PRN PRN Reason: shortness of breath or wheezing Stop: 08/06/24 00:40 Last Admin: 08/10/23 02:23 Dose: 1 puff Albuterol (Albuterol Neb 2.5 Mg/3 Ml Vial.Neb) 2.5 mg INHALATION Q3H PRN PRN Reason: Shortness Of Breath Stop: 08/09/24 12:30 Albuterol/Ipratropium (Ipratropium/Albuterol 0.5-3 Mg 3 Ml Ampul.Neb) 3 ml INHALATION QID.RESP ANUSHA Stop: 08/06/24 07:59 Last Admin: 08/10/23 11:52 Dose: 3 ml Alprazolam (Alprazolam 0.5 Mg Tablet) 0.5 mg PO Q8H PRN PRN Reason: anxiety Stop: 02/06/24 11:17 Amantadine HCl (Amantadine 100 Mg Capsule) 100 mg PO DAILY [facility] Stop: 08/06/24 08:59 Last Admin: 08/10/23 08:07 Dose: 100 mg Amlodipine Besylate (Amlodipine 5 Mg Tablet) 5 mg PO DAILY [facility] Stop: 08/07/24 11:39 Last Admin: 08/10/23 08:07 Dose: 5 mg Aspirin (Aspirin 81 Mg Tab.Chew) 81 mg PO DAILY [facility] Stop: 08/06/24 08:59 Last Admin: 08/10/23 08:06 Dose: 81 mg Atorvastatin Calcium (Atorvastatin 40 Mg Tablet) 40 mg PO DAILY [facility] Stop: 08/06/24 08:59 Last Admin: 08/10/23 08:07 Dose: 40 mg Dextrose (Dextrose 50% In Water 25 Gm/50 Ml Syringe) 0 gm IV-PUSH PRN PRN PRN Reason: Hypoglycemia Stop: 08/06/24 00:42 Glucose (Dextrose 40% Gel 15 Gm Tube) 0 gm PO PRN PRN PRN Reason: Hypoglycemia Stop: 08/06/24 00:42 Guaifenesin (Guaifenesin 600 Mg Tab.Er.12h) 600 mg PO BID PRN PRN Reason: Congestion Stop: 08/09/24 11:17 Heparin Sodium (Porcine) (Heparin 5,000 Unit/Ml Vial) 5,000 unit SUBCUT Q8HR [facility] Stop: 08/06/24 05:59 Last Admin: 08/10/23 13:24 Dose: 5,000 unit Levofloxacin (Levaquin) 750 mg in 150 mls @ 100 mls/hr IV Q48H [facility] Last Admin: 08/10/23 12:43 Dose: 100 mls/hr Insulin Aspart (Insulin Aspart 300 Units/3 Ml Insuln.Pen) 0 units SUBCUT TID..[facility]; Protocol Stop: 08/06/24 07:59 Last Admin: 08/10/23 12:47 Dose: Not Given Levetiracetam (Levetiracetam 250 Mg Tablet) 250 mg PO BID [facility] Stop: 08/06/24 08:59 Last Admin: 08/10/23 08:11 Dose: 250 mg Levothyroxine Sodium (Levothyroxine 150 Mcg Tablet) 150 mcg PO DAILY@0630 [facility] Stop: 08/06/24 06:29 Last Admin: 08/10/23 06:15 Dose: 150 mcg Oxcarbazepine (Oxcarbazepine 150 Mg Tablet) 450 mg PO TID [facility] Stop: 08/06/24 08:59 Last Admin: 08/10/23 13:24 Dose: 450 mg Prednisone (Prednisone 20 Mg Tablet) 30 mg PO DAILY [facility]; Taper Stop: 08/21/23 08:59 Last Admin: 08/10/23 08:07 Dose: 30 mg Pregabalin (Pregabalin 100 Mg Capsule) 100 mg PO TID [facility] Stop: 02/04/24 13:59 Last Admin: 08/10/23 13:24 Dose: 100 mg Prochlorperazine Edisylate (Prochlorperazine Edisylate 10 Mg/2 Ml Vial) 5 mg IV- PUSH Q4H PRN PRN Reason: Nausea And Vomiting Stop: 08/06/24 00:36 Ropinirole HCl (Ropinirole 1 Mg Tablet) 1 mg PO QHS [facility] Stop: 08/09/24 21:59 Allergies Penicillins Allergy (Unknown, Verified 07/25/23 21:44) Unknown Reaction sulfamethoxazole Allergy (Unknown, Verified 07/25/23 21:44) hives Results - Nephrology Labs 08/10/23 05:51 08/10/23 05:51 Labs: 08/10/23 05:51 BUN 26 H Creatinine 1.06 Phosphorus 3.0 Albumin 3.7 Radiology Impressions Impressions - last 24 hours: Any impression(s) listed above is documentation that was entered by the reading physician into a diagnostic report(s) for Conchis Charles. I have reviewed the report(s) and am incorporating any findings in the treatment plan of this patient where applicable. A&P - Nephrology Assessment/Plan (1) Hypercalcemia: Assessment/Problem Details: Patient presented with hypercalcemia 40 mg/dL while she was on vitamin D and calcium supplement. 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 Although the patient has COPD, chest x-ray showed no evidence of masses. She has no significant weight loss or hemoptysis to suggest cancer. Patient had episodes of hypercalcemia and hypercalcemia in the past. (2) UMM (acute kidney injury): Assessment/Problem Details: Patient had UMM with admission possibly related to decreased oral intake after recent hospitalization and not feeling well. She denies any nausea or vomiting. Patient has been on furosemide this currently on hold. (3) COPD (chronic obstructive pulmonary disease): Assessment/Problem Details: Patient has a history of COPD on oxygen, prednisone and inhalers at home. Patient is a former smoker. (4) History of parathyroidectomy: Assessment/Problem Details: Patient initial parathyroidectomy possibly inadvertent removal at the time of thyroidectomy for thyrotoxicosis. Patient has been on calcium and vitamin D supplement. Plan * Kidney function and total calcium level continues to improve with holding home calcium and vitamin D supplements and with intravascular volume expansion with normal saline. TSH is within normal limit. PTH related peptide still pending * Will stop IV fluid and give the patient 1 dose of Lasix 20 mg IV for worsening breathing and hypoxia. Will do CT chest without contrast * Continue holding home lisinopril. Continue amlodipine 5 mg p.o. daily. Might have to increase the dose to 10 mg p.o. daily with higher blood pressure * Patient currently on ceftriaxone and doxycycline for presumed pneumonia. Patient also on prednisone for COPD exacerbation * Monitor renal panel daily to adjust treatment as indicated. . Documented By: Joni Davila MD 08/10/231343 Signed By: <Electronically signed by Joni Davila MD> 08/10/23 [address] [facility] Work Phone: [phone] Progress note Author Luke Mcguire [facility] August 09, 2023 2:19pm Note Date/Time August 09, 2023 2:16p m [facility] ENTER [address] [place] [address] Hospitalist Progress Note Signed Patient: Conchis Charles MR#: [id number] 826 : 1955 Acct:[id number] Age/Sex: 68 / F Adm Date: 4 Loc: 4P Room: [address] [place] [address] Type: ADM IN Attending Dr: Luke Mcguire MD Copies to: ~ Date of Service: 08/09/2023 Subjective Subjective Narrative: Patient reports around 12:30 AM she got short of breath and woke up and requireda breathing treatment. Oxygen bumped up to 3 L. Calcium level improved to 11. No swelling noted. Getting short of breath with minimal exertion. Sputum culture positive and antibiotic switched to oral Doxy Exam Physical Exam Vital Signs: Temp Pulse Resp BP Pulse Ox O2 Del Method O2 Flow Rate 36.2 C L 65 24 159/64 H 95 Nasal Cannula 4 08/09/23 11:57 08/09/23 11:57 08/09/23 11:57 08/09/23 11:57 08/09/23 11:57 08/09/23 11:57 08/09/23 11:57 FiO2 2 08/08/23 20:00 Narrative: General: In mild distress, alert. On 3 L nasal cannula HEENT: PERRLA, and intact and normocephalic Neck: Normal to inspection Lungs: Mildly increased work of breathing and bilateral expiratory wheezing noted Cardiac: Regular rate and rhythm Abdomen: Soft, nontender, positive bowel sounds Genitourinary: Deferred Skin: Intact Hematology: No petechiae or excessive ecchymosis Musculoskeletal: Without significant trauma Neurological: Alert awake oriented, no focal deficit, cranial nerves grossly intact Psych: No suicidal ideation or homicidal ideation Objective Lab Results 08/09/23 04:57 08/09/23 04:57 Microbiology Results Microbiology 08/07/23 01:50 Sputum - Expectorated Aerobic Culture - Final Corynebacterium striatum group 08/07/23 01:50 Sputum - Expectorated Gram Stain - Final Meds Allergies and Active Meds Allergies Penicillins Allergy (Unknown, Verified 07/25/23 21:44) Unknown Reaction sulfamethoxazole Allergy (Unknown, Verified 07/25/23 21:44) hives Active Meds: Active Medications Generic Name Dose Route Start Last Admin Trade Name Freq PRN Reason Stop Dose Admin Acetaminophen 650 mg 08/07/23 00:37 08/09/23 08:49 Acetaminophen 325 Mg Tablet PO 08/06/24 00:36 650 mg Q6HR PRN Administration Pain Scale 1 - 3 or fever Albuterol 1 puff 08/07/23 00:41 08/09/23 10:59 Albuterol Hfa 60 Puff/8 Gram Inhaler INHALATION 08/06/24 00:40 1 puff Q4HR PRN Administration shortness of breath or wheezing Albuterol/Ipratropium 3 ml 08/07/23 08:00 08/09/23 11:32 Ipratropium/Albuterol 0.5-3 Mg 3 Ml Ampul.Neb INHALATION 08/06/24 07:59 3 ml QID.RESP ANUSHA Administration Amantadine HCl 100 mg 08/07/23 09:00 08/09/23 08:45 Amantadine 100 Mg Capsule PO 08/06/24 08:59 100 mg DAILY ANUSHA Administration Amlodipine Besylate 5 mg 08/08/23 11:40 08/09/23 08:49 Amlodipine 5 Mg Tablet PO 08/07/24 11:39 5 mg DAILY ANUSHA Administration Aspirin 81 mg 08/07/23 09:00 08/09/23 08:46 Aspirin 81 Mg Tab.Chew PO 08/06/24 08:59 81 mg DAILY ANUSHA Administration Atorvastatin Calcium 40 mg 08/07/23 09:00 08/09/23 08:46 Atorvastatin 40 Mg Tablet PO 08/06/24 08:59 40 mg DAILY ANUSHA Administration Dextrose 0 gm 08/07/23 00:43 Dextrose 50% In Water 25 Gm/50 Ml Syringe IV-PUSH 08/06/24 00:42 PRN PRN Hypoglycemia Doxycycline Hyclate 100 mg 08/09/23 21:00 Doxycycline Hyclate 100 Mg Tablet PO 08/14/23 20:59 BID ANUSHA Glucose 0 gm 08/07/23 00:43 Dextrose 40% Gel 15 Gm Tube PO 08/06/24 00:42 PRN PRN Hypoglycemia Heparin Sodium (Porcine) 5,000 unit 08/07/23 06:00 08/09/23 09:03 Heparin 5,000 Unit/Ml Vial SUBCUT 08/06/24 05:59 5,000 unit Q8HR ANUSHA Administration Sodium Chloride 1,000 mls @ 75 mls/hr 08/07/23 03:15 08/09/23 02:23 0.9% Sodium Chloride 1,000 Ml IV 08/06/24 03:14 75 mls/hr .[id number] ANUSHA Administration Insulin Aspart 0 units 08/07/23 08:00 08/09/23 12:00 Insulin Aspart 300 Units/3 Ml Insuln.Pen SUBCUT 08/06/24 07:59 Not Given TID.WM.HS [facility] Protocol Levetiracetam 250 mg 08/07/23 09:00 08/09/23 08:49 Levetiracetam 250 Mg Tablet PO 08/06/24 08:59 250 mg BID ANUSHA Administration Levothyroxine Sodium 150 mcg 08/07/23 06:30 08/09/23 06:00 Levothyroxine 150 Mcg Tablet PO 08/06/24 06:29 150 mcg DAILY@0630 ANUSHA Administration Oxcarbazepine 450 mg 08/07/23 09:00 08/09/23 08:47 Oxcarbazepine 150 Mg Tablet PO 08/06/24 08:59 450 mg TID ANUSHA Administration Prednisone 30 mg 08/07/23 09:00 08/09/23 08:47 Prednisone 20 Mg Tablet PO 08/21/23 08:59 30 mg DAILY ANUSHA Administration Taper Pregabalin 100 mg 08/08/23 14:00 08/09/23 08:46 Pregabalin 100 Mg Capsule PO 02/04/24 13:59 100 mg TID ANUSHA Administration Prochlorperazine Edisylate 5 mg 08/07/23 00:37 Prochlorperazine Edisylate 10 Mg/2 Ml Vial IV-PUSH 08/06/24 00:36 Q4H PRN Nausea And Vomiting Ropinirole HCl 1 mg 08/08/23 15:00 08/09/23 08:49 Ropinirole 1 Mg Tablet PO 08/07/24 14:59 1 mg DAILY ANUSHA Administration A&P - Hospitalist Assessment/Plan (1) UMM (acute kidney injury): Plan: Acute kidney injury is improving along with hypercalcemia improving Nephrology consultation is noted and appreciated Calcium is down to 11 Will continue with fluids for 1 more day TSH is within normal limits PTH RP pending Continue with fluids at 75 cc an hour (2) Hypercalcemia: Plan: Hypercalcemia has improved to 11.0 Will continue with IV fluids Will monitor Continue to hold Lasix for now Repeat labs for tomorrow order (3) Pneumonia: Plan: Bacterial pneumonia with COPD exacerbation present on admission Sputum culture noted for corynebacterium striatum. Patient allergic to penicillin hence we will do doxycycline for 5 more days On prednisone taper for COPD exacerbation Continue with breathing treatment and wean O2 as tolerated On baseline 2 L nasal cannula Breathing treatment Plan Plan discussed with patient at bedside High Level of MDM based on above issue and discussing plan This note is created using voice recognition software. All efforts were made tominimize errors, if they are is due to touch up carver. Luke Mcguire MD Hospitalist Documented By: Luke Mcguire MD 08/09/231413 Signed By: <Electronically signed by Luke Mcguire MD> 08/09/23 [address] [facility] Work Phone: 1(273) 233-238606-04-2024 Progress note Author Joni Davila [facility] August 09, 2023 11:08am Note Date/Time August 09, 2023 11:08 am [facility] [address] [place] [address] Nephrology Progress Note Signed Patient: Conchis Charles MR#: [id number] 826 : 1955 Acct:[id number] Age/Sex: 68 / F Adm Date: 4 Loc: Room: [address] [place] [address] Type: ADM IN Attending Dr: Luke Mcguire MD Copies to: ~ Date of Service: 08/09/2023 Subjective Subjective Narrative: Ms. Charles is a 68-year-old white male was transferred from [facility] for UMM and hypercalcemia creatinine 2.2, BUN 67 and calcium 14.2 mg/dL. Patient has baseline creatinine around 1 mg/dL. The patient was just discharged from [facility] on July 29 after short admission for COPD exacerbation and pneumonia. During that admission she had UMM related to urine retention that improved after insertion of Hanson catheter that was removed at the time of discharge withsuccessful void trial. Initially she was on IV fluid however it was complicatedby CHF and she was given furosemide before discharge. [facility] 0.9 and calcium 9 mg/dL. Patient presented to [place] with generalized weakness, general compartments, shortness of breath and suspected pneumonia. Chest x-ray was concerning for infiltrate for which she was treated with Rocephin and azithromycin. Creatinine was found to be 2.2 mg/dL and calcium was elevated 14.2 as stated above. Patient has been on calcium and vitamin D supplements s/p parathyroidectomy that was held on admission. Patient was started on IV fluid normal saline. Today calcium is down to 12.1 mg/dL and creatinine is down to 1.59 mg/dL. Nephrology was consulted for hypercalcemia and UMM. Chart was reviewed. Patient has intermittent episodes of hypo and hypercalcemiasince 2018. She has thyroidectomy with parathyroidectomy and she has been on calcium and vitamin D. 25-hydroxy vitamin D on admission was in the upper rangeof normal 98 and intact PTH low at 3.6 pg/mL reflecting the parathyroidectomy. Patient stated that she still has generalized weakness. No shortness of breath. No cough, fever or chills. No nausea or vomiting. Lab today showed WBCs count 9.8, Hemoglobin 11.3, sodium 135, potassium 3.9, carbon oxide 31.2, BUN 52 and creatinine down to 1.59 mg/dL. Calcium 12.1 and magnesium 1.7. Albumin 3.4 g/dL. Urine analysis showed clear urine. COVID-19 was negative on admission. Bilateral kidney ultrasound showed no evidence of hydronephrosis or kidney stones. Chest x-ray showed improving airspace opacities with no infiltrate or congestion. Interval history: Patient was seen and examined in her room. Nasal cannula is up to 4 L/min. Patient is being treated for COPD exacerbation with antibiotics and prednisone. Noted high blood pressure. Patient started onNorvasc 5 mg p.o. daily yesterday. Home lisinopril and Lasix remain on hold dueto UMM at admission Remains on normal saline 75 cc/h. Lab from this morning revealed serum creatinine down to 1.09 mg deciliter, calcium down to 11.0 mg/dL. Magnesium level is up to normal at 2.0 mg deciliter after 2 g magnesium sulfate IV yesterday Last echocardiogram revealed normal ejection fraction 60 to 65% Denied chest pain. No nausea no vomiting Exam Physical Exam Vital Signs: Temp Pulse Resp BP Pulse Ox O2 Del Method O2 Flow Rate 97.0 F L 61 20 158/70 H 97 Nasal Cannula 4 08/09/23 08:00 08/09/23 09:56 08/09/23 09:56 08/09/23 08:00 08/09/23 09:56 08/09/23 09:56 08/09/23 09:56 FiO2 2 08/08/23 20:00 Narrative: General: No acute distress Head :atraumatic normocephalic Eyes: PERRLA. Neck: no JVD no bruit. Heart: S1-S2. RRR Respiratory: Decreased breath sounds over both lung bases. No wheezing. No crackles Abdomen: Soft, positive bowel sounds,no tenderness. Neurology: Awake alert oriented x3. No focal deficits Extremity. No cyanosis. No edema Skin: No skin rash Objective Intake and Output I&O: Intake & Output 08/06/23 08/07/23 08/08/23 08/09/23 23:59 23:59 23:59 23:59 Intake Total 3650 / 3650 4250 / 4250 340 / 340 Output Total 1200 / 1200 650 / 650 Balance 2450 / 2450 3600 / 3600 340 / 340 Weight 162 lb 11.218 oz 177 lb 7.554 oz 165 lb 5.547 oz 165 lb 2.02 oz Meds and Allergies Meds: Active Medications Acetaminophen (Acetaminophen 325 Mg Tablet) 650 mg PO Q6HR PRN PRN Reason: Pain Scale 1 - 3 or fever Stop: 08/06/24 00:36 Last Admin: 08/09/23 08:49 Dose: 650 mg Albuterol (Albuterol Hfa 60 Puff/8 Gram Inhaler) 1 puff INHALATION Q4HR PRN PRN Reason: shortness of breath or wheezing Stop: 08/06/24 00:40 Last Admin: 08/09/23 10:59 Dose: 1 puff Albuterol/Ipratropium (Ipratropium/Albuterol 0.5-3 Mg 3 Ml Ampul.Neb) 3 ml INHALATION QID.RESP ANUSHA Stop: 08/06/24 07:59 Last Admin: 08/09/23 08:14 Dose: 3 ml Amantadine HCl (Amantadine 100 Mg Capsule) 100 mg PO DAILY [facility] Stop: 08/06/24 08:59 Last Admin: 08/09/23 08:45 Dose: 100 mg Amlodipine Besylate (Amlodipine 5 Mg Tablet) 5 mg PO DAILY [facility] [facility] Stop: 08/07/24 11:39 Last Admin: 08/09/23 08:49 Dose: 5 mg Aspirin (Aspirin 81 Mg Tab.Chew) 81 mg PO DAILY [facility] Stop: 08/06/24 08:59 Last Admin: 08/09/23 08:46 Dose: 81 mg Atorvastatin Calcium (Atorvastatin 40 Mg Tablet) 40 mg PO DAILY [facility] Stop: 08/06/24 08:59 Last Admin: 08/09/23 08:46 Dose: 40 mg Dextrose (Dextrose 50% In Water 25 Gm/50 Ml Syringe) 0 gm IV-PUSH PRN PRN PRN Reason: Hypoglycemia Stop: 08/06/24 00:42 Glucose (Dextrose 40% Gel 15 Gm Tube) 0 gm PO PRN PRN PRN Reason: Hypoglycemia Stop: 08/06/24 00:42 Heparin Sodium (Porcine) (Heparin 5,000 Unit/Ml Vial) 5,000 unit SUBCUT Q8HR [facility] Stop: 08/06/24 05:59 Last Admin: 08/09/23 09:03 Dose: 5,000 unit Ceftriaxone Sodium (Rocephin) 1 gm in 50 mls @ 100 mls/hr IV Q24H [facility] Last Admin: 08/09/23 09:10 Dose: 100 mls/hr Doxycycline Hyclate (Doxy 100) 100 mg in 100 mls @ 100 mls/hr IV Q12H [facility] Last Admin: 08/09/23 09:45 Dose: 100 mls/hr Sodium Chloride (0.9% Sodium Chloride 1,000 Ml) 1,000 mls @ 75 mls/hr IV .[id number] [facility] Stop: 08/06/24 03:14 Last Admin: 08/09/23 02:23 Dose: 75 mls/hr Insulin Aspart (Insulin Aspart 300 Units/3 Ml Insuln.Pen) 0 units SUBCUT TID.[facility]; Protocol Stop: 08/06/24 07:59 Last Admin: 08/09/23 08:44 Dose: Not Given Levetiracetam (Levetiracetam 250 Mg Tablet) 250 mg PO BID [facility] Stop: 08/06/24 08:59 Last Admin: 08/09/23 08:49 Dose: 250 mg Levothyroxine Sodium (Levothyroxine 150 Mcg Tablet) 150 mcg PO DAILY@0630 [facility] Stop: 08/06/24 06:29 Last Admin: 08/09/23 06:00 Dose: 150 mcg Oxcarbazepine (Oxcarbazepine 150 Mg Tablet) 450 mg PO TID [facility] Stop: 08/06/24 08:59 Last Admin: 08/09/23 08:47 Dose: 450 mg Prednisone (Prednisone 20 Mg Tablet) 30 mg PO DAILY [facility]; Taper Stop: 08/21/23 08:59 Last Admin: 08/09/23 08:47 Dose: 30 mg Pregabalin (Pregabalin 100 Mg Capsule) 100 mg PO TID [facility] Stop: 02/04/24 13:59 Last Admin: 08/09/23 08:46 Dose: 100 mg Prochlorperazine Edisylate (Prochlorperazine Edisylate 10 Mg/2 Ml Vial) 5 mg IV- PUSH Q4H PRN PRN Reason: Nausea And Vomiting Stop: 08/06/24 00:36 Ropinirole HCl (Ropinirole 1 Mg Tablet) 1 mg PO DAILY [facility] Stop: 08/07/24 14:59 Last Admin: 08/09/23 08:49 Dose: 1 mg Allergies Penicillins Allergy (Unknown, Verified 07/25/23 21:44) Unknown Reaction sulfamethoxazole Allergy (Unknown, Verified 07/25/23 21:44) hives Results - Nephrology Labs 08/09/23 04:57 08/09/23 04:57 Labs: 08/09/23 04:57 BUN 35 H Creatinine 1.09 Phosphorus 4.1 Albumin 3.6 Radiology Impressions Impressions - last 24 hours: Any impression(s) listed above is documentation that was entered by the reading physician into a diagnostic report(s) for Conchis Charles. I have reviewed the report(s) and am incorporating any findings in the treatment plan of this patient where applicable. A&P - Nephrology Assessment/Plan (1) Hypercalcemia: Assessment/Problem Details: Patient presented with hypercalcemia 40 mg/dL while she was on vitamin D and calcium supplement. 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 Although the patient has COPD, chest x-ray showed no evidence of masses. She has no significant weight loss or hemoptysis to suggest cancer. Patient had episodes of hypercalcemia and hypercalcemia in the past. (2) UMM (acute kidney injury): Assessment/Problem Details: Patient had UMM with admission possibly related to decreased oral intake after recent hospitalization and not feeling well. She denies any nausea or vomiting. Patient has been on furosemide this currently on hold. (3) COPD (chronic obstructive pulmonary disease): Assessment/Problem Details: Patient has a history of COPD on oxygen, prednisone and inhalers at home. Patient is a former smoker. (4) History of parathyroidectomy: Assessment/Problem Details: Patient initial parathyroidectomy possibly inadvertent removal at the time of thyroidectomy for thyrotoxicosis. Patient has been on calcium and vitamin D supplement. Plan * Kidney function and total calcium level continues to improve with holding home calcium and vitamin D supplements and with intravascular volume expansion with normal saline. TSH is within normal limit. PTH related peptide still pending * Will continue IV fluid at 75 cc/h. Continue holding home Lasix * Continue holding home lisinopril. Continue amlodipine 5 mg p.o. daily. Might have to increase the dose to 10 mg p.o. daily with higher blood pressure * Patient currently on ceftriaxone and doxycycline for presumed pneumonia. Patient also on prednisone for COPD exacerbation * Monitor renal panel daily to adjust IV fluid and diuretics as indicated. . Documented By: Joni Davila MD 08/09/23 110 Signed By: <Electronically signed by Joni Davila MD> 08/09/23 1108 [facility] Work Phone: 1(819) 824-162306-03-2024 Progress note Author Luke Mcguire [facility] August 08, 2023 2:59pm Note Date/Time August 08, 2023 3:00p [facility] ENTER [address] [place] [address] Hospitalist Progress Note Signed Patient: Conchis Charles MR#: [id number] 826 : 1955 Acct:[id number] Age/Sex: 68 / F Adm Date: 4 Loc: 4 Room: 8V5740-0 Type: ADM IN Attending Dr: Luke Mcguire MD Copies to: ~ Date of Service: 08/08/2023 Subjective Subjective Narrative: Patient had finality 3 bowel movement yesterday and 2 since midnight. Feeling better. Down to 2 L nasal cannula. Calcium is down to 11.7 Exam Physical Exam Vital Signs: Temp Pulse Resp BP Pulse Ox O2 Del Method O2 Flow Rate 36.7 C 59 L 17 145/72 H 97 Nasal Cannula 2 08/08/23 12:00 08/08/23 12:08/08/23 12:00 08/08/23 12:00 08/08/23 12:00 08/08/23 12:00 08/08/23 12:00 FiO2 2 08/08/23 08:00 Narrative: General: Not in acute distress, alert. On 2 L nasal cannula HEENT: PERRLA, and intact and normocephalic Neck: Normal to inspection Lungs: Clear to auscultation, work of breathing within normal limit Cardiac: Regular rate and rhythm Abdomen: Soft, nontender, positive bowel sounds Genitourinary: Deferred Skin: Intact Hematology: No petechiae or excessive ecchymosis Musculoskeletal: Without significant trauma Neurological: Alert awake oriented, no focal deficit, cranial nerves grossly intact Psych: No suicidal ideation or homicidal ideation Objective Lab Results 08/08/23 04:35 08/08/23 04:35 Microbiology Results Microbiology 08/07/23 01:50 Sputum - Expectorated Aerobic Culture - Preliminary Corynebacterium striatum group 08/07/23 01:50 Sputum - Expectorated Gram Stain - Final Imaging I have reviewed the image and/or report and agree with the impression Meds Allergies and Active Meds Allergies Penicillins Allergy (Unknown, Verified 07/25/23 21:44) Unknown Reaction sulfamethoxazole Allergy (Unknown, Verified 07/25/23 21:44) hives Active Meds: Active Medications Generic Name Dose Route Start Last Admin Trade Name Freq PRN Reason Stop Dose Admin Acetaminophen 650 mg 08/07/23 00:37 08/08/23 01:18 Acetaminophen 325 Mg Tablet PO 08/06/24 00:36 650 mg Q6HR PRN Administration Pain Scale 1 - 3 or fever Albuterol 1 puff 08/07/23 00:41 Albuterol Hfa 60 Puff/8 Gram Inhaler INHALATION 08/06/24 00:40 Q4HR PRN shortness of breath or wheezing Albuterol/Ipratropium 3 ml 08/07/23 08:00 08/08/23 11:11 Ipratropium/Albuterol 0.5-3 Mg 3 Ml Ampul.Neb INHALATION 08/06/24 07:59 3 ml QID.RESP [facility] Administration Amantadine HCl 100 mg 08/07/23 09:00 08/08/23 08:13 Amantadine 100 Mg Capsule PO 08/06/24 08:59 100 mg DAILY [facility] Administration Amlodipine Besylate 5 mg 08/08/23 11:40 08/08/23 12:37 Amlodipine 5 Mg Tablet PO 08/07/24 11:39 5 mg DAILY [facility] Administration Aspirin 81 mg 08/07/23 09:00 08/08/23 08:12 Aspirin 81 Mg Tab.Chew PO 08/06/24 08:59 81 mg DAILY [facility] Administration Atorvastatin Calcium 40 mg 08/07/23 09:00 08/08/23 08:12 Atorvastatin 40 Mg Tablet PO 08/06/24 08:59 40 mg DAILY [facility] Administration Dextrose 0 gm 08/07/23 00:43 Dextrose 50% In Water 25 Gm/50 Ml Syringe IV-PUSH 08/06/24 00:42 PRN PRN Hypoglycemia Glucose 0 gm 08/07/23 00:43 Dextrose 40% Gel 15 Gm Tube PO 08/06/24 00:42 PRN PRN Hypoglycemia Heparin Sodium (Porcine) 5,000 unit 08/07/23 06:00 08/08/23 13:55 Heparin 5,000 Unit/Ml Vial SUBCUT 08/06/24 05:59 5,000 unit Q8HR [facility] Administration Ceftriaxone Sodium 1 gm in 50 mls @ 100 mls/hr 08/07/23 10:00 08/08/23 09:24 Rocephin IV 100 mls/hr Q24H [facility] Administration Doxycycline Hyclate 100 mg in 100 mls @ 100 mls/hr 08/07/23 10:30 08/08/23 10:32 Doxy 100 IV 100 mls/hr Q12H [facility] Administration Sodium Chloride 1,000 mls @ 75 mls/hr 08/07/23 03:15 08/08/23 09:11 0.9% Sodium Chloride 1,000 Ml IV 08/06/24 03:14 75 mls/hr .[id number] [facility] Administration Insulin Aspart 0 units 08/07/23 08:00 08/08/23 12:04 Insulin Aspart 300 Units/3 Ml Insuln.Pen SUBCUT 08/06/24 07:59 Not Given TID.WM.HS [facility] Protocol Levetiracetam 250 mg 08/07/23 09:00 08/08/23 08:13 Levetiracetam 250 Mg Tablet PO 08/06/24 08:59 250 mg BID [facility] Administration Levothyroxine Sodium 150 mcg 08/07/23 06:30 08/08/23 06:11 Levothyroxine 150 Mcg Tablet PO 08/06/24 06:29 Not Given DAILY@0630 [facility] Oxcarbazepine 450 mg 08/07/23 09:00 08/08/23 13:54 Oxcarbazepine 150 Mg Tablet PO 08/06/24 08:59 450 mg TID [facility] Administration Prednisone 40 mg 08/07/23 09:00 08/08/23 08:11 Prednisone 20 Mg Tablet PO 08/21/23 08:59 40 mg DAILY [facility] Administration Taper Pregabalin 100 mg 08/08/23 14:00 08/08/23 14:03 Pregabalin 100 Mg Capsule PO 02/04/24 13:59 100 mg TID [facility] Administration Prochlorperazine Edisylate 5 mg 08/07/23 00:37 Prochlorperazine Edisylate 10 Mg/2 Ml Vial IV-PUSH 08/06/24 00:36 Q4H PRN Nausea And Vomiting Ropinirole HCl 1 mg 08/08/23 15:00 Ropinirole 1 Mg Tablet PO 08/07/24 14:59 DAILY [facility] A&P - Hospitalist Assessment/Plan (1) UMM (acute kidney injury): Plan: Acute kidney injury is improving along with hypercalcemia improving Nephrology consultation is noted and appreciated TSH is within normal limits PTH RP pending Continue with fluids at 75 cc an hour (2) Hypercalcemia: Plan: Hypercalcemia has improved to 11.7 Will continue with IV fluids Will monitor Continue to hold Lasix for now Repeat labs for tomorrow order (3) Pneumonia: Plan: On 2 L nasal cannula with history of chronic hypoxemic respiratory failure. Wason 4 L nasal cannula consistent with acute on chronic hypercapnic respiratory failure Continue with doxycycline and ceftriaxone for suspected bacterial pneumonia Breathing treatment Plan Discharge planning Documented By: Luke Mcguire MD 08/08/23 1456 Signed By: <Electronically signed by Luke Mcguire MD> 08/08/23 1459 [facility] Work Phone: 1(322) 691-838506-03-2024 Progress note Author Joni Davila [facility] August 08, 2023 11:38am Note Date/Time August 08, 2023 11:38 am [facility] [address] [place], [place] [id number] Nephrology Progress Note Signed Patient: Conchis Charles MR#: [id number] 826 : 1955 Acct:[id number] Age/Sex: 68 / F Adm Date: 4 Loc: 4 Room: 2Y5974-8 Type: ADM IN Attending Dr: Luke Mcguire MD Copies to: ~ Date of Service: 08/08/2023 Subjective Subjective Narrative: Ms. Charles is a 68-year-old white male was transferred from [facility] for UMM and hypercalcemia creatinine 2.2, BUN 67 and calcium 14.2 mg/dL. Patient has baseline creatinine around 1 mg/dL. The patient was just discharged from [facility] on July 29 after short admission for COPD exacerbation and pneumonia. During that admission she had UMM related to urine retention that improved after insertion of Hanson catheter that was removed at the time of discharge withsuccessful void trial. Initially she was on IV fluid however it was complicatedby CHF and she was given furosemide before discharge. [facility] 0.9 and calcium 9 mg/dL. Patient presented to [place] with generalized weakness, general compartments, shortness of breath and suspected pneumonia. Chest x-ray was concerning for infiltrate for which she was treated with Rocephin and azithromycin. Creatinine was found to be 2.2 mg/dL and calcium was elevated 14.2 as stated above. Patient has been on calcium and vitamin D supplements s/p parathyroidectomy that was held on admission. Patient was started on IV fluid normal saline. Today calcium is down to 12.1 mg/dL and creatinine is down to 1.59 mg/dL. Nephrology was consulted for hypercalcemia and UMM. Chart was reviewed. Patient has intermittent episodes of hypo and hypercalcemiasince 2018. She has thyroidectomy with parathyroidectomy and she has been on calcium and vitamin D. 25-hydroxy vitamin D on admission was in the upper rangeof normal 98 and intact PTH low at 3.6 pg/mL reflecting the parathyroidectomy. Patient stated that she still has generalized weakness. No shortness of breath. No cough, fever or chills. No nausea or vomiting. Lab today showed WBCs count 9.8, Hemoglobin 11.3, sodium 135, potassium 3.9, carbon oxide 31.2, BUN 52 and creatinine down to 1.59 mg/dL. Calcium 12.1 and magnesium 1.7. Albumin 3.4 g/dL. Urine analysis showed clear urine. COVID-19 was negative on admission. Bilateral kidney ultrasound showed no evidence of hydronephrosis or kidney stones. Chest x-ray showed improving airspace opacities with no infiltrate or congestion. Interval history: Patient was seen and examined in her room. She started to have diarrhea this morning. Denied worsening breathing. Continues to be on 2 L nasal cannula. Remains on normal saline 75 cc/h. Lab from this morning revealed serum creatinine down to 1.5 mg deciliter, calcium down to 11.7 mg/dL. Patient is about 2.3 L negative and fluid balance. Patient made 1.2 L urine output yesterday. Home Lasix remains on hold. Last echocardiogram revealed normal ejection fraction 60 to 65% Denied chest pain. No cough. No nausea no vomiting Exam Physical Exam Vital Signs: Temp Pulse Resp BP Pulse Ox O2 Del Method O2 Flow Rate 98.1 F 52 L 20 168/70 H 95 Nasal Cannula 2 08/08/23 08:14 08/08/23 11:19 08/08/23 11:19 08/08/23 08:14 08/08/23 08:14 08/08/23 08:14 08/08/23 08:14 FiO2 2 08/08/23 08:00 Narrative: General: No acute distress Head :atraumatic normocephalic Eyes: PERRLA. Neck: no JVD no bruit. Heart: S1-S2. RRR Respiratory: Decreased breath sounds over both lung bases. No wheezing. No crackles Abdomen: Soft, positive bowel sounds,no tenderness. Neurology: Awake alert oriented x3. No focal deficits Extremity. No cyanosis. No edema Skin: No skin rash Objective Intake and Output I&O: Intake & Output 08/05/23 08/06/23 08/07/23 08/08/23 23:59 23:59 23:59 23:59 Intake Total 3650 / 3650 2400 / 2400 Output Total 1200 / 1200 650 / 650 Balance 2450 / 2450 1750 / 1750 Weight 162 lb 11.218 oz 177 lb 7.554 oz 165 lb 5.547 oz Meds and Allergies Meds: Active Medications Acetaminophen (Acetaminophen 325 Mg Tablet) 650 mg PO Q6HR PRN PRN Reason: Pain Scale 1 - 3 or fever Stop: 08/06/24 00:36 Last Admin: 08/08/23 01:18 Dose: 650 mg Albuterol (Albuterol Hfa 60 Puff/8 Gram Inhaler) 1 puff INHALATION Q4HR PRN PRN Reason: shortness of breath or wheezing Stop: 08/06/24 00:40 Albuterol/Ipratropium (Ipratropium/Albuterol 0.5-3 Mg 3 Ml Ampul.Neb) 3 ml INHALATION QID.RESP [facility] Stop: 08/06/24 07:59 Last Admin: 08/08/23 11:11 Dose: 3 ml Amantadine HCl (Amantadine 100 Mg Capsule) 100 mg PO DAILY [facility] Stop: 08/06/24 08:59 Last Admin: 08/08/23 08:13 Dose: 100 mg Aspirin (Aspirin 81 Mg Tab.Chew) 81 mg PO DAILY [facility] Stop: 08/06/24 08:59 Last Admin: 08/08/23 08:12 Dose: 81 mg Atorvastatin Calcium (Atorvastatin 40 Mg Tablet) 40 mg PO DAILY [facility] Stop: 08/06/24 08:59 Last Admin: 08/08/23 08:12 Dose: 40 mg Dextrose (Dextrose 50% In Water 25 Gm/50 Ml Syringe) 0 gm IV-PUSH PRN PRN PRN Reason: Hypoglycemia Stop: 08/06/24 00:42 Glucose (Dextrose 40% Gel 15 Gm Tube) 0 gm PO PRN PRN PRN Reason: Hypoglycemia Stop: 08/06/24 00:42 Heparin Sodium (Porcine) (Heparin 5,000 Unit/Ml Vial) 5,000 unit SUBCUT Q8HR [facility] Stop: 08/06/24 05:59 Last Admin: 08/08/23 05:21 Dose: 5,000 unit Ceftriaxone Sodium (Rocephin) 1 gm in 50 mls @ 100 mls/hr IV Q24H [facility] Last Admin: 08/08/23 09:24 Dose: 100 mls/hr Doxycycline Hyclate (Doxy 100) 100 mg in 100 mls @ 100 mls/hr IV Q12H [facility] Last Admin: 08/08/23 10:32 Dose: 100 mls/hr Sodium Chloride (0.9% Sodium Chloride 1,000 Ml) 1,000 mls @ 75 mls/hr IV .[id number] [facility] Stop: 08/06/24 03:14 Last Admin: 08/08/23 09:11 Dose: 75 mls/hr Insulin Aspart (Insulin Aspart 300 Units/3 Ml Insuln.Pen) 0 units SUBCUT TID.WM.HS [facility]; Protocol Stop: 08/06/24 07:59 Last Admin: 08/08/23 08:11 Dose: Not Given Levetiracetam (Levetiracetam 250 Mg Tablet) 250 mg PO BID [facility] Stop: 08/06/24 08:59 Last Admin: 08/08/23 08:13 Dose: 250 mg Levothyroxine Sodium (Levothyroxine 150 Mcg Tablet) 150 mcg PO DAILY@0630 [facility] Stop: 08/06/24 06:29 Last Admin: 08/08/23 06:11 Dose: Not Given Oxcarbazepine (Oxcarbazepine 150 Mg Tablet) 450 mg PO TID [facility] Stop: 08/06/24 08:59 Last Admin: 08/08/23 08:13 Dose: 450 mg Prednisone (Prednisone 20 Mg Tablet) 40 mg PO DAILY [facility]; Taper Stop: 08/21/23 08:59 Last Admin: 08/08/23 08:11 Dose: 40 mg Pregabalin (Pregabalin 100 Mg Capsule) 200 mg PO TID [facility] Stop: 08/06/24 21:59 Last Admin: 08/08/23 08:12 Dose: 200 mg Prochlorperazine Edisylate (Prochlorperazine Edisylate 10 Mg/2 Ml Vial) 5 mg IV- PUSH Q4H PRN PRN Reason: Nausea And Vomiting Stop: 08/06/24 00:36 Allergies Penicillins Allergy (Unknown, Verified 07/25/23 21:44) Unknown Reaction sulfamethoxazole Allergy (Unknown, Verified 07/25/23 21:44) hives Results - Nephrology Labs 08/08/23 04:35 08/08/23 04:35 Labs: 08/08/23 04:35 BUN 43 H Creatinine 1.53 H Phosphorus 4.0 Albumin 3.5 Radiology Impressions Impressions - last 24 hours: Any impression(s) listed above is documentation that was entered by the reading physician into a diagnostic report(s) for Conchis Charles. I have reviewed the report(s) and am incorporating any findings in the treatment plan of this patient where applicable. A&P - Nephrology Assessment/Plan (1) Hypercalcemia: Assessment/Problem Details: Patient presented with hypercalcemia 40 mg/dL while she was on vitamin D and calcium supplement. 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 Although the patient has COPD, chest x-ray showed no evidence of masses. She has no significant weight loss or hemoptysis to suggest cancer. Patient had episodes of hypercalcemia and hypercalcemia in the past. (2) UMM (acute kidney injury): Assessment/Problem Details: Patient had UMM with admission possibly related to decreased oral intake after recent hospitalization and not feeling well. She denies any nausea or vomiting. Patient has been on furosemide this currently on hold. (3) COPD (chronic obstructive pulmonary disease): Assessment/Problem Details: Patient has a history of COPD on oxygen, prednisone and inhalers at home. Patient is a former smoker. (4) History of parathyroidectomy: Assessment/Problem Details: Patient initial parathyroidectomy possibly inadvertent removal at the time of thyroidectomy for thyrotoxicosis. Patient has been on calcium and vitamin D supplement. Plan * Total calcium level continues to improve with holding home calcium and vitamin D supplements. * Will continue IV fluid at 75 cc/h. Continue holding home Lasix * Patient currently on ceftriaxone and doxycycline for presumed pneumonia. * Noted slightly elevated blood pressure. I will start amlodipine 5 mg p.o. daily * Will give the patient magnesium sulfate 2 g for magnesium level of 1.7 dL. Will avoid oral magnesium due to diarrhea. Check magnesium level in a.m. * TSH within normal limit. PTH related peptide is still pending. * Monitor renal panel daily to adjust IV fluid and diuretics as indicated. . Documented By: Joni Davila MD 08/08/23 113 Signed By: <Electronically signed by Joni Davila MD> 08/08/23 1131 [facility] Work Phone: 1(280) 958-787606-02-2024 Progress note Author Ash Alvarenga [facility] August 07, 2023 4:27pm Note Date/Time August 07, 2023 4:27p maliha [facility] [address] [place] [address] Hospitalist Progress Note Signed Patient: Conchis Charles MR#: [id number] 826 : 1955 Acct:[id number] Age/Sex: 68 / F Adm Date: 4 Loc: 4 Room: [address] [place] [address] Type: ADM IN Attending Dr: Ash Alvarenga MD Copies to: ~ Date of Service: 08/07/2023 Subjective Subjective Narrative: Patient was seen at bedside. She was actually sitting on the couch comfortably. She has multiple areas of bruising because of IV insertion during immediate last admission plus now. She had tremor probably from hypercalcemia which is much better now. She is asking for pregabalin which she takes for her restless leg syndrome. ON ADMISSION: Patient is a 68 year old F who was transferred from [facility] here for UMM and hypercalcemia and suspected pneumonia. She was recently discharged from our facility after was treated for acute on chronic COPD exacerbation, she did have UMM and urinary retention on admission as well she was treated with 3 days of Rocephin IV Hanson catheter was placed initially for retention. 2 days later patient passed voiding trial and Hanson catheter remained out. Patient was discharged from our facility with normal kidney function. She is on DILMA inhibitor and Lasix at home. At [place], found to have BUN 67, Cr 2.2, Calcium elevated at 14.2. K around 4.5. Reported to have leukocytosis around 13 and their CXR showing concerns for infiltrates for which they treated with IV Rocephin and IV azithromycin. Since pt was recently discharged from here and patient preference, they transferred here for that and nephrology evaluation. BPstable on arrival 120s/50s, HR in 50s, patient appears coherent, AAOx3. She doesreport generalized weakness and jerky movements over the past 5 days, states shewas not able to reach her cup of water and hold it, however does not appear to have any focal weakness or neuro deficits. She does report nausea and poor appetite and not drinking enough water, she is on ACEI and Lasix from her med list. She does take vitamin D and Ca supplements since her parathyroid was removed in the past. Patient was admitted here for further evaluation and management. Exam Physical Exam Vital Signs: Temp Pulse Resp BP Pulse Ox O2 Del Method O2 Flow Rate 97.6 F 54 L 16 116/61 93 L Nasal Cannula 2 08/07/23 15:27 08/07/23 15:27 08/07/23 15:27 08/07/23 15:27 08/07/23 15:27 08/07/23 15:27 08/07/23 15:27 FiO2 2 08/07/23 08:00 Const General: cooperative and no acute distress Orientation: alert, awake and oriented x3 HEENT Head: normocephalic and atraumatic Face and sinus: normal facial exam and sinuses nontender Mouth: oral mucosae normal Eyes Conjunctivae: conjunctivae normal Sclera: sclerae normal Neck Thyroid: thyroid normal Carotids: normal carotid upstroke Lymphatic: no lymphadenopathy noted Resp Effort & Inspection: normal respiratory effort, able to speak in complete sentences and symmetric chest movement Auscultation: clear to auscultation bilaterally Cardio Palpation: normal PMI Rate: regular rate Rhythm: regular rhythm Heart Sounds: S1 normal and S2 normal Pulses: dorsalis pedis present GI Palpation: soft and no hepatosplenomegaly Auscultation: normal bowel sounds Objective Lab Results 08/07/23 00:58 08/07/23 08:42 Microbiology Results Microbiology 08/07/23 01:50 Nasopharyngeal SARS-CoV-2, Influenza & RSV (PCR) - Final 08/07/23 01:50 Sputum - Expectorated Gram Stain - Final Meds Allergies and Active Meds Allergies Penicillins Allergy (Unknown, Verified 07/25/23 21:44) Unknown Reaction sulfamethoxazole Allergy (Unknown, Verified 07/25/23 21:44) hives Active Meds: Active Medications Generic Name Dose Route Start Last Admin Trade Name Freq PRN Reason Stop Dose Admin Acetaminophen 650 mg 08/07/23 00:37 08/07/23 04:15 Acetaminophen 325 Mg Tablet PO 08/06/24 00:36 650 mg Q6HR PRN Administration Pain Scale 1 - 3 or fever Albuterol 1 puff 08/07/23 00:41 Albuterol Hfa 60 Puff/8 Gram Inhaler INHALATION 08/06/24 00:40 Q4HR PRN shortness of breath or wheezing Albuterol/Ipratropium 3 ml 08/07/23 08:00 08/07/23 13:23 Ipratropium/Albuterol 0.5-3 Mg 3 Ml Ampul.Neb INHALATION 08/06/24 07:59 3 ml QID.RESP ANUSHA Administration Amantadine HCl 100 mg 08/07/23 09:00 08/07/23 09:45 Amantadine 100 Mg Capsule PO 08/06/24 08:59 100 mg DAILY ANUSHA Administration Aspirin 81 mg 08/07/23 09:00 08/07/23 09:47 Aspirin 81 Mg Tab.Chew PO 08/06/24 08:59 81 mg DAILY ANUSHA Administration Atorvastatin Calcium 40 mg 08/07/23 09:00 08/07/23 09:47 Atorvastatin 40 Mg Tablet PO 08/06/24 08:59 40 mg DAILY ANUSHA Administration Dextrose 0 gm 08/07/23 00:43 Dextrose 50% In Water 25 Gm/50 Ml Syringe IV-PUSH 08/06/24 00:42 PRN PRN Hypoglycemia Glucose 0 gm 08/07/23 00:43 Dextrose 40% Gel 15 Gm Tube PO 08/06/24 00:42 PRN PRN Hypoglycemia Heparin Sodium (Porcine) 5,000 unit 08/07/23 06:00 08/07/23 13:46 Heparin 5,000 Unit/Ml Vial SUBCUT 08/06/24 05:59 5,000 unit Q8HR ANUSHA Administration Ceftriaxone Sodium 1 gm in 50 mls @ 100 mls/hr 08/07/23 10:00 08/07/23 09:48 Rocephin IV 100 mls/hr Q24H AUNSHA Administration Doxycycline Hyclate 100 mg in 100 mls @ 100 mls/hr 08/07/23 10:30 08/07/23 10:44 Doxy 100 IV 100 mls/hr Q12H ANUSHA Administration Sodium Chloride 1,000 mls @ 75 mls/hr 08/07/23 03:15 08/07/23 13:45 0.9% Sodium Chloride 1,000 Ml IV 08/06/24 03:14 75 mls/hr .[id number] ANUSHA Administration Insulin Aspart 0 units 08/07/23 08:00 08/07/23 13:28 Insulin Aspart 300 Units/3 Ml Insuln.Pen SUBCUT 08/06/24 07:59 Not Given TID.WM.HS [facility] Protocol Levetiracetam 250 mg 08/07/23 09:00 08/07/23 09:46 Levetiracetam 250 Mg Tablet PO 08/06/24 08:59 250 mg BID ANUSHA Administration Levothyroxine Sodium 150 mcg 08/07/23 06:30 08/07/23 06:01 Levothyroxine 150 Mcg Tablet PO 08/06/24 06:29 150 mcg DAILY@0630 ANUSHA Administration Oxcarbazepine 450 mg 08/07/23 09:00 08/07/23 13:46 Oxcarbazepine 150 Mg Tablet PO 08/06/24 08:59 450 mg TID ANUSHA Administration Prednisone 40 mg 08/07/23 09:00 08/07/23 09:45 Prednisone 20 Mg Tablet PO 08/21/23 08:59 40 mg DAILY ANUSHA Administration Taper Prochlorperazine Edisylate 5 mg 08/07/23 00:37 Prochlorperazine Edisylate 10 Mg/2 Ml Vial IV-PUSH 08/06/24 00:36 Q4H PRN Nausea And Vomiting A&P - Hospitalist Assessment/Plan (1) UMM (acute kidney injury): (2) Hypercalcemia: (3) Pneumonia: Plan PLAN FOR TODAY: 08/07/2023 UMM likely secondary to volume depletion due to poor oral intake and being on diuretics Hypercalcemia in the setting of UMM and being on Ca and Vit D supplements (Hx ofparathyroidectomy) -Afebrile here -Check repeat CBC, CMP now and repeat in am. -Cr at [place] 2.2, BUN 67, Ca 14.2. K 4.5. -Check UA -Gentle IV hydration as directed -Avoid ACEI, ARB for now -Hold Vit D and Ca supplements -Check kidney and bladder ultrasound -Optimized electrolytes to keep K>4, Mg>2, P>3 -Insulin sliding scare for her DM. -Avoid nephrotoxic medications -Appreciate consult recommendation by nephrology Suspected pneumonia -Continue antibiotics for now with IV Rocephin and IV doxy Home medications resumed as appropriate: Added pregabalin Diet: carb consistent DVT ppx: SCD, heparin Code status: Full Documented By: Ash Alvarnega MD 08/07/23 1620 Signed By: <Electronically signed by Ash Alvarenga MD> 08/07/23 1627 [facility] Work Phone: 1([phone] 293-380706-02-2024 Consult note Author Keena Kern [facility] August 07, 2023 12:43pm Note Date/Time August 07, 2023 12:20 pm [facility] [address] [place], [place] [id number] Nephrology Consult Note Signed Patient: Conchis Charles MR#: [id number] : 1955 Acct:[id number] Age/Sex: 68 / F Adm Date: 4 Loc: Room: [address] [place] [address] Type: ADM IN Attending Dr: Ash Alvarenga MD Copies to: DO Keena Monzon MD Mushtaq Mahmood, MD~ Providers Consult Date: 08/07/23 Requesting Provider: Ash Alvarenga MD Primary Care Provider: Neto Arauz DO HPI Reason for Consult: Hypercalcemia and UMM on admission History of Present Illness: Ms. Charles is a 68-year-old white male was transferred from [facility] for UMM and hypercalcemia creatinine 2.2, BUN 67 and calcium 14.2 mg/dL. Patient has baseline creatinine around 1 mg/dL. The patient was just discharged from [facility] on July 29 after short admission for COPD exacerbation and pneumonia. During that admission she had UMM related to urine retention that improved after insertion of Hanson catheter that was removed at the time of discharge withsuccessful void trial. Initially she was on IV fluid however it was complicatedby CHF and she was given furosemide before discharge. [facility] 0.9 and calcium 9 mg/dL. Patient presented to [facility] with generalized weakness, general compartments, shortness of breath and suspected pneumonia. Chest x-ray was concerning for infiltrate for which she was treated with Rocephin and azithromycin. Creatinine was found to be 2.2 mg/dL and calcium was elevated 14.2 as stated above. Patient has been on calcium and vitamin D supplements s/p parathyroidectomy that was held on admission. Patient was started on IV fluid normal saline. Today calcium is down to 12.1 mg/dL and creatinine is down to 1.59 mg/dL. Nephrology was consulted for hypercalcemia and UMM. Chart was reviewed. Patient has intermittent episodes of hypo and hypercalcemiasince 2018. She has thyroidectomy with parathyroidectomy and she has been on calcium and vitamin D. 25-hydroxy vitamin D on admission was in the upper rangeof normal 98 and intact PTH low at 3.6 pg/mL reflecting the parathyroidectomy. Patient stated that she still has generalized weakness. No shortness of breath. No cough, fever or chills. No nausea or vomiting. Lab today showed WBCs count 9.8, Hemoglobin 11.3, sodium 135, potassium 3.9, carbon oxide 31.2, BUN 52 and creatinine down to 1.59 mg/dL. Calcium 12.1 and magnesium 1.7. Albumin 3.4 g/dL. Urine analysis showed clear urine. COVID-19 was negative on admission. Bilateral kidney ultrasound showed no evidence of hydronephrosis or kidney stones. Chest x-ray showed improving airspace opacities with no infiltrate or congestion. Review of Systems Review of Systems All other systems reviewed & are negative unless noted below or in HPI [facility] Medical History Diabetes Hypothyroidism Hyperlipidemia Rupture Achilles tendon both feet Feeling of incomplete bladder emptying Neuropathy Diabetes COPD (chronic obstructive pulmonary disease) Surgical History Status post right foot surgery Status post laser cataract surgery of both eyes History of hip surgery H/O thyroidectomy H/O: hysterectomy Family History Father Pneumonia Grandparent Liver disease Legacy FamHx Relation: Maternal Grand Father Legacy FamHx Relation: Maternal Grand Father Grandparent Cancer Legacy FamHx Relation: Maternal Grand Mother; Legacy FamHx Problem: Diagnosed with Cancer Legacy FamHx Relation: Maternal Grand Mother Grandparent Myocardial infarction Legacy FamHx Relation: Paternal Grand Father Legacy FamHx Relation: Paternal Grand Father Heart disease Legacy FamHx Relation: Paternal Grand Father Grandparent Legacy FamHx Relation: Paternal Grand Mother Diabetes Legacy FamHx Relation: Paternal Grand Mother Grandparent Cancer Legacy FamHx Relation: Maternal Grand Mother Grandparent Diabetes Legacy FamHx Relation: Paternal Grand Mother Mother Cancer Legacy FamHx Problem: Diagnosed with Cancer Social History Smoking Status: Former smoker Tobacco Type: cigars Substance Use Type: None Substance Abuse Comment: denies illegal drug use. 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 & Allergies Allergies Penicillins Allergy (Unknown, Verified 07/25/23 21:44) Unknown Reaction sulfamethoxazole Allergy (Unknown, Verified 07/25/23 21:44) hives Home Medications Oxygen 06/24/23 [History Confirmed 08/07/23] albuterol sulfate 2.5 mg/3 mL (0.083 %) solution for nebulization 2.5 mg inhalation TID 06/24/23 [History Confirmed 08/07/23] albuterol sulfate 90 mcg/actuation aerosol inhaler 1 puff inhalation Q4HR PRN shortness of breath or wheezing 06/24/23 [History Confirmed 08/07/23] alpha lipoic acid 200 mg capsule 200 mg PO TID 06/24/23 [History Confirmed 08/07/23] aspirin 81 mg chewable tablet 1 tab PO DAILY 06/24/23 [History Confirmed 08/07/23] atorvastatin 40 mg tablet 40 mg PO HS 06/24/23 [History Confirmed 08/07/23] blood sugar diagnostic (Blood Glucose Test strips) 06/24/23 [History Confirmed 08/07/23] calcium carbonate 600 mg-vitamin D3 5 mcg (200 unit) tablet 1 tab PO BID 06/24/23 [History Confirmed 08/07/23] cetirizine 10 mg tablet (Zyrtec) 10 mg PO DAILY 06/24/23 [History Confirmed 08/07/23] cholecalciferol (vitamin D3) 25 mcg (1,000 unit) capsule 1,000 unit PO DAILY 06/24/23 [History Confirmed 08/07/23] cyclobenzaprine 10 mg tablet 10 mg PO HS muscle spasm 06/24/23 [History Confirmed 08/07/23] furosemide 40 mg tablet 40 mg PO BID 06/24/23 [History Confirmed 08/07/23] levothyroxine 150 mcg tablet 150 mcg PO DAILY 06/24/23 [History Confirmed 08/07/23] lisinopril 5 mg tablet 5 mg PO DAILY 06/24/23 [History Confirmed 08/07/23] nebulizer accessories (Adult Aerosol Mask) 06/24/23 [History Confirmed 08/07/23] omega-3 fatty acids 1,000 mg capsule 1,000 mg PO DAILY 06/24/23 [History Confirmed 08/07/23] oxcarbazepine 300 mg tablet (Trileptal) 450 mg PO TID 06/24/23 [History Confirmed 08/07/23] potassium chloride 20 mEq tablet,extended release 20 meq PO BID 06/24/23 [History Confirmed 08/07/23] pregabalin 200 mg capsule 200 mg PO TID 06/24/23 [History Confirmed 08/07/23] ropinirole 1 mg tablet 1 mg PO DAILY 06/24/23 [History Confirmed 08/07/23] saliva substitute combo no.9 (Biotene Dry Mouth Oral Rinse mouthwash) 15 ml mucous membrane BID-QID PRN dry mouth 06/24/23 [History Confirmed 08/07/23] umeclidinium 62.5 mcg-vilanterol 25 mcg/actuation powdr for inhalation (Anoro Ellipta) 1 inh inhalation DAILY 06/24/23 [History Confirmed 08/07/23] amantadine HCl 100 mg tablet 100 mg PO DAILY 07/26/23 [History Confirmed 08/07/23] levetiracetam 250 mg tablet 250 mg PO BID 07/26/23 [History Confirmed 08/07/23] hydrocodone-homatropine 5 mg-1.5 mg/5 mL oral syrup 5 ml PO Q6HR PRN cough 3 days #60 mL 07/30/23 [Rx Confirmed 08/07/23] fluticasone fur. 100 mcg-umeclid 62.5 mcg-vilant 25 mcg inhalat.powder (Trelegy Ellipta) 1 inh inhalation DAILY 08/07/23 [History Confirmed 08/07/23] insulin lispro 100 unit/mL subcutaneous pen (Humalog KwikPen (U-100) Insulin) See Protocol subcut ACHS 08/07/23 [History Confirmed 08/07/23] loratadine 10 mg capsule 10 mg PO DAILY 08/07/23 [History Confirmed 08/07/23] prednisone 20 mg tablet 20 mg PO DAILY 08/07/23 [History Confirmed 08/07/23] Active Medications: Active Medications Acetaminophen (Acetaminophen 325 Mg Tablet) 650 mg PO Q6HR PRN PRN Reason: Pain Scale 1 - 3 or fever Stop: 08/06/24 00:36 Last Admin: 08/07/23 04:15 Dose: 650 mg Albuterol (Albuterol Hfa 60 Puff/8 Gram Inhaler) 1 puff INHALATION Q4HR PRN PRN Reason: shortness of breath or wheezing Stop: 08/06/24 00:40 Albuterol/Ipratropium (Ipratropium/Albuterol 0.5-3 Mg 3 Ml Ampul.Neb) 3 ml INHALATION QID.RESP ANUSHA Stop: 08/06/24 07:59 Last Admin: 08/07/23 08:18 Dose: 3 ml Amantadine HCl (Amantadine 100 Mg Capsule) 100 mg PO DAILY ANUSHA Stop: 08/06/24 08:59 Last Admin: 08/07/23 09:45 Dose: 100 mg Aspirin (Aspirin 81 Mg Tab.Chew) 81 mg PO DAILY [facility] Stop: 08/06/24 08:59 Last Admin: 08/07/23 09:47 Dose: 81 mg Atorvastatin Calcium (Atorvastatin 40 Mg Tablet) 40 mg PO DAILY [facility] Stop: 08/06/24 08:59 Last Admin: 08/07/23 09:47 Dose: 40 mg Dextrose (Dextrose 50% In Water 25 Gm/50 Ml Syringe) 0 gm IV-PUSH PRN PRN PRN Reason: Hypoglycemia Stop: 08/06/24 00:42 Glucose (Dextrose 40% Gel 15 Gm Tube) 0 gm PO PRN PRN PRN Reason: Hypoglycemia Stop: 08/06/24 00:42 Heparin Sodium (Porcine) (Heparin 5,000 Unit/Ml Vial) 5,000 unit SUBCUT Q8HR [facility] Stop: 08/06/24 05:59 Last Admin: 08/07/23 06:01 Dose: 5,000 unit Ceftriaxone Sodium (Rocephin) 1 gm in 50 mls @ 100 mls/hr IV Q24H [facility] Last Admin: 08/07/23 09:48 Dose: 100 mls/hr Doxycycline Hyclate (Doxy 100) 100 mg in 100 mls @ 100 mls/hr IV Q12H [facility] Last Admin: 08/07/23 10:44 Dose: 100 mls/hr Sodium Chloride (0.9% Sodium Chloride 1,000 Ml) 1,000 mls @ 100 mls/hr IV .[id number] Stop: 08/06/24 03:14 Last Admin: 08/07/23 04:05 Dose: 100 mls/hr Insulin Aspart (Insulin Aspart 300 Units/3 Ml Insuln.Pen) 0 units SUBCUT TID..[facility]; Protocol Stop: 08/06/24 07:59 Last Admin: 08/07/23 09:44 Dose: Not Given Levetiracetam (Levetiracetam 250 Mg Tablet) 250 mg PO BID [facility] Stop: 08/06/24 08:59 Last Admin: 08/07/23 09:46 Dose: 250 mg Levothyroxine Sodium (Levothyroxine 150 Mcg Tablet) 150 mcg PO DAILY@0630 [facility] Stop: 08/06/24 06:29 Last Admin: 08/07/23 06:01 Dose: 150 mcg Oxcarbazepine (Oxcarbazepine 150 Mg Tablet) 450 mg PO TID [facility] Stop: 08/06/24 08:59 Last Admin: 08/07/23 09:47 Dose: 450 mg Prednisone (Prednisone 20 Mg Tablet) 40 mg PO DAILY [facility]; Taper Stop: 08/21/23 08:59 Last Admin: 08/07/23 09:45 Dose: 40 mg Prochlorperazine Edisylate (Prochlorperazine Edisylate 10 Mg/2 Ml Vial) 5 mg IV- PUSH Q4H PRN PRN Reason: Nausea And Vomiting Stop: 08/06/24 00:36 Exam Physical Exam Vital Signs: Temp Pulse Resp BP Pulse Ox O2 Del Method O2 Flow Rate 36.4 C L 54 L 12 102/44 L 93 L Nasal Cannula 2 08/07/23 11:15 08/07/23 11:15 08/07/23 11:15 08/07/23 11:15 08/07/23 11:15 08/07/23 11:15 08/07/23 11:15 FiO2 2 08/07/23 08:00 Narrative: Constitutional: Appears comfortable and not in distress HEENT: No pallor or Jaundice Cardiovascular: RRR, normal S1-S2, no gallop or rub, No JVD Respiratory: Good bilateral air entry no wheezing or crackles Gastrointestinal: Soft, non tender, positive bowel sounds Extremities: No edema Skin: No rashes or bruises Musculoskeletal: No joints swellings or inflammation Neurology: Awake, alert, oriented ?3, No focal motor or sensory deficits Psych: Normal mood and affect Results - Nephrology Labs 08/07/23 00:58 08/07/23 08:42 Labs: 08/07/23 08/07/23 08/07/23 00:58 01:50 08:42 BUN 57 H 52 H Creatinine 1.74 H 1.59 H Albumin 3.4 L 3.4 L 25-OH Vitamin D Total 97.1 PTH Intact 3.6 L Urine Color Yellow Urine Appearance Clear Urine pH 6.5 Ur Specific [place] 1.012 Urine Protein Negative Urine Glucose (UA) Normal Urine Ketones Negative Urine Occult Blood Negative Urine Nitrite Negative Ur Leukocyte Esterase Negative Abnormal lab results 3 08/07/23 08/07/23 Range/Units 00:58 08:42 Hgb 11.3 L (11.8-15.4) g/dL Neut # (Auto) 8.4 H (1.8-7.7) x10E3/uL Lymph # (Auto) 0.7 L (1.00-4.8) x10E3/uL Sodium 133 L 135 L (136-145) mmol/L Carbon Dioxide 31.2 H (21.0-31.0) mmol/L BUN 57 H 52 H (7-25) mg/dL Creatinine 1.74 H 1.59 H (0.60-1.20) mg/dL Calcium 12.6 H 12.1 H (8.6-10.3) mg/dL Magnesium 1.7 L (1.9-2.7) mg/dL ALT 55 H (7-52) U/L Alkaline Phosphatase 109 H (34-104) U/L Total Protein 5.9 L 5.9 L (6.4-8.9) gm/dL Albumin 3.4 L 3.4 L (3.5-5.7) gm/dL PTH Intact 3.6 L (12-88) pg/mL Radiology Impressions Impressions - last 24 hours: Impressions Chest X-Ray 08/07/23 00:45 IMPRESSION: Improving airspace opacities are noted near the lung bases. Impression dictated by: Ana Cristina Hathaway M.D.08/07/2023 8:17 AM Dictation Location: [place] [address] Renal Ultrasound 08/07/23 05:00 IMPRESSION: No hydronephrosis or mass. Impression dictated by: Ana Cristina Hathaway M.D.08/07/2023 10:27 AM Dictation Location: [place] [address] Any impression(s) listed above is documentation that was entered by the reading physician into a diagnostic report(s) for Conchis Charles. I have reviewed the report(s) and am incorporating any findings in the treatment plan of this patient where applicable. A&P - Nephrology Assessment/Plan (1) Hypercalcemia: Assessment/Problem Details: Patient presented with hypercalcemia 40 mg/dL while she was on vitamin D and calcium supplement. 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 Although the patient has COPD, chest x-ray showed no evidence of masses. She has no significant weight loss or hemoptysis to suggest cancer. Patient had episodes of hypercalcemia and hypercalcemia in the past. (2) UMM (acute kidney injury): Assessment/Problem Details: Patient had UMM with admission possibly related to decreased oral intake after recent hospitalization and not feeling well. She denies any nausea or vomiting. Patient has been on furosemide this currently on hold. (3) COPD (chronic obstructive pulmonary disease): Assessment/Problem Details: Patient has a history of COPD on oxygen, prednisone and inhalers at home. Patient is a former smoker. (4) History of parathyroidectomy: Assessment/Problem Details: Patient initial parathyroidectomy possibly inadvertent removal at the time of thyroidectomy for thyrotoxicosis. Patient has been on calcium and vitamin D supplement. Plan * Vitamin D and calcium supplements are on hold on admission. * Will decrease IV fluid normal saline to 75 cc/h and will hold after 24 hours since patient developed pulmonary edema during last admission. Oral furosemide still on hold that can be restarted later on after resolution of UMM. * Patient currently on ceftriaxone and doxycycline for presumed pneumonia. * To complete the workup of hypercalcemia, I am going to check TSH, T3 and T4 at the patient currently on thyroxine and hyper hyroidism can cause hypercalcemia. Will also check intact PTH?RP for possibility of occult malignancy considering her history of COPD. * Monitor renal panel daily to adjust IV fluid and diuretics as indicated. I appreciate this consultation and will be happy to follow the patient with you during hospital stay. This document was dictated utilizing computerized voice recognition technology. Errors in grammar, spelling, and or syntax may be noted. The creator of this document does not proofread for this. Documented By: Keena Kern MD 08/07/23 1218 Signed By: <Electronically signed by MD Keena Kern> 08/07/23 3160 [facility] Work Phone: 1(494) 336-162806-02-2024 History and physical note Author Frank Hudson [facility] August 07, 2023 1:15am Note Date/Time August 07, 2023 12:45 am [facility] [address] [place] [address] Hospitalist H&P Signed Patient: Conchis Charles MR#: [id number] : 1955 Acct:[id number] Age/Sex: 68 / F Adm Date: 4 Loc: Room: [address] [place] [address] Type: ADM IN Attending Dr: Frank Hudson MD Copies to: Neto Arauz,DO Frank Hudson MD~ HPI DATE OF EXAMINATION: 08/07/23 CHIEF COMPLAINT: Weakness HISTORY OF PRESENT ILLNESS: Patient is a 68 year old F who was transferred from [facility] here for UMM and hypercalcemia and suspected pneumonia. She was recently discharged from our facility after was treated for acute on chronic COPD exacerbation, she did have UMM and urinary retention on admission as well she was treated with 3 days of Rocephin IV Hanson catheter was placed initially for retention. 2 days later patient passed voiding trial and Hanson catheter remained out. Patient was discharged from our facility with normal kidney function. She is on DILMA inhibitor and Lasix at home. At [place], found to have BUN 67, Cr 2.2, Calcium elevated at 14.2. K around 4.5. Reported to have leukocytosis around 13 and their CXR showing concerns for infiltrates for which they treated with IV Rocephin and IV azithromycin. Since pt was recently discharged from here and patient preference, they transferred here for that and nephrology evaluation. BPstable on arrival 120s/50s, HR in 50s, patient appears coherent, AAOx3. She doesreport generalized weakness and jerky movements over the past 5 days, states shewas not able to reach her cup of water and hold it, however does not appear to have any focal weakness or neuro deficits. She does report nausea and poor appetite and not drinking enough water, she is on ACEI and Lasix from her med list. She does take vitamin D and Ca supplements since her parathyroid was removed in the past. Patient was admitted here for further evaluation and management. Review of Systems Review of Systems Review of systems: 10 systems are reviewed and are negative except as mentioned elsewhere in the documentation [facility] Medical History Diabetes Hypothyroidism Hyperlipidemia Rupture Achilles tendon both feet Feeling of incomplete bladder emptying Neuropathy Diabetes COPD (chronic obstructive pulmonary disease) Surgical History Status post right foot surgery Status post laser cataract surgery of both eyes History of hip surgery H/O thyroidectomy H/O: hysterectomy Family History Father Pneumonia Grandparent Liver disease Legacy FamHx Relation: Maternal Grand Father Legacy FamHx Relation: Maternal Grand Father Grandparent Cancer Legacy FamHx Relation: Maternal Grand Mother; Legacy FamHx Problem: Diagnosed with Cancer Legacy FamHx Relation: Maternal Grand Mother Grandparent Myocardial infarction Legacy FamHx Relation: Paternal Grand Father Legacy FamHx Relation: Paternal Grand Father Heart disease Legacy FamHx Relation: Paternal Grand Father Grandparent Legacy FamHx Relation: Paternal Grand Mother Diabetes Legacy FamHx Relation: Paternal Grand Mother Grandparent Cancer Legacy FamHx Relation: Maternal Grand Mother Grandparent Diabetes Legacy FamHx Relation: Paternal Grand Mother Mother Cancer Legacy FamHx Problem: Diagnosed with Cancer Social History Smoking Status: Former smoker Tobacco Type: cigars Substance Use Type: None Substance Abuse Comment: denies illegal drug use. 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 and Allergies Allergies Penicillins Allergy (Unknown, Verified 07/25/23 21:44) Unknown Reaction sulfamethoxazole Allergy (Unknown, Verified 07/25/23 21:44) hives Home Medications Oxygen 06/24/23 [History Confirmed 08/07/23] albuterol sulfate 2.5 mg/3 mL (0.083 %) solution for nebulization 2.5 mg inhalation Q8HR 06/24/23 [History Confirmed 08/07/23] albuterol sulfate 90 mcg/actuation aerosol inhaler 1 puff inhalation Q4HR PRN shortness of breath or wheezing 06/24/23 [History Confirmed 08/07/23] alpha lipoic acid 200 mg capsule 200 mg PO DAILY 06/24/23 [History Confirmed 08/07/23] aspirin 81 mg chewable tablet 1 tab PO DAILY 06/24/23 [History Confirmed 08/07/23] atorvastatin 40 mg tablet 40 mg PO DAILY 06/24/23 [History Confirmed 08/07/23] blood sugar diagnostic (Blood Glucose Test strips) 06/24/23 [History Confirmed 08/07/23] calcium carbonate 600 mg-vitamin D3 5 mcg (200 unit) tablet 1 tab PO BID 06/24/23 [History Confirmed 08/07/23] cetirizine 10 mg tablet (Zyrtec) 10 mg PO DAILY 06/24/23 [History Confirmed 08/07/23] cholecalciferol (vitamin D3) 25 mcg (1,000 unit) capsule 1,000 unit PO DAILY 06/24/23 [History Confirmed 08/07/23] cyclobenzaprine 10 mg tablet 10 mg PO .PRN PRN muscle spasm 06/24/23 [History Confirmed 08/07/23] furosemide 40 mg tablet 40 mg PO BID 06/24/23 [History Confirmed 08/07/23] levothyroxine 150 mcg tablet 150 mcg PO DAILY 06/24/23 [History Confirmed 08/07/23] lisinopril 5 mg tablet 5 mg PO DAILY 06/24/23 [History Confirmed 08/07/23] nebulizer accessories (Adult Aerosol Mask) 06/24/23 [History Confirmed 08/07/23] omega-3 fatty acids 1,000 mg capsule 1,000 mg PO DAILY 06/24/23 [History Confirmed 08/07/23] oxcarbazepine 300 mg tablet (Trileptal) 450 mg PO TID 06/24/23 [History Confirmed 08/07/23] potassium chloride 20 mEq tablet,extended release 20 meq PO BID 06/24/23 [History Confirmed 08/07/23] pregabalin 200 mg capsule 200 mg PO TID 06/24/23 [History Confirmed 08/07/23] ropinirole 1 mg tablet 1 mg PO DAILY 06/24/23 [History Confirmed 08/07/23] saliva substitute combo no.9 (Biotene Dry Mouth Oral Rinse mouthwash) 15 ml mucous membrane BID-QID PRN dry mouth 06/24/23 [History Confirmed 08/07/23] umeclidinium 62.5 mcg-vilanterol 25 mcg/actuation powdr for inhalation (Anoro Ellipta) 1 inh inhalation DAILY 06/24/23 [History Confirmed 08/07/23] amantadine HCl 100 mg tablet 100 mg PO DAILY 07/26/23 [History Confirmed 08/07/23] levetiracetam 250 mg tablet 250 mg PO BID 07/26/23 [History Confirmed 08/07/23] Rx Discharge Order Notice 1 ea miscellaneous ONCE #1 100 g 07/30/23 [Rx] hydrocodone-homatropine 5 mg-1.5 mg/5 mL oral syrup 5 ml PO Q6HR PRN cough 3 days #60 mL 07/30/23 [Rx Confirmed 08/07/23] insulin lispro 100 unit/mL subcutaneous pen (Humalog KwikPen (U-100) Insulin) 1 sliding scale dose subcut DIRECTED 08/07/23 [History Confirmed 08/07/23] prednisone 20 mg tablet 20 mg PO DAILY 08/07/23 [History Confirmed 08/07/23] Exam Physical Exam Vital Signs: Temp Pulse Resp BP Pulse Ox O2 Del Method O2 Flow Rate 97.7 F 51 L 16 122/56 L 99 Nasal Cannula 2 08/06/23 23:43 08/06/23 23:43 08/06/23 23:43 08/06/23 23:43 08/06/23 23:43 08/07/23 00:40 08/07/23 00:40 Narrative: Const General: cooperative, appears volume depleted HEENT dry oropharyngeal mucosa without any ulcers or exudates Eyes: Conjunctiva normal Pulmonary Auscultation: Diminished breath sounds, no crackles, no wheezes Cardiovascular Rate: Bradycardic Rhythm: regular rhythm Heart Sounds: S1 normal, S2 normal and no murmurs GI Inspection: non-distended Palpation: soft, not firm and nontender. No rigidity or rebound. Deferred Neuro General: alert, awake and oriented x3. No obvious new focal deficit Musculoskeletal: normal range of motion Extrem General: no cyanosis, no pedal edema, dry skin Psych Appearance: appropriate affect. Grossly normal Assessment & Plan Assessment/Plan (1) UMM (acute kidney injury): (2) Hypercalcemia: (3) Pneumonia: Plan UMM likely secondary to volume depletion due to poor oral intake and being on diuretics Hypercalcemia in the setting of UMM and being on Ca and Vit D supplements (Hx ofparathyroidectomy) -Afebrile here -Check repeat CBC, CMP now and repeat in am. -Cr at [place] 2.2, BUN 67, Ca 14.2. K 4.5. -Check UA -Gentle IV hydration as directed -Avoid ACEI, ARB for now -Hold Vit D and Ca supplements -Check urine electrolytes -Calculate FENa -Check kidney and bladder ultrasound -Check bladder scan, Had urinary retention on previous admission and required Hanson. If retaining, Hanson will be inserted. -Optimized electrolytes to keep K>4, Mg>2, P>3 -Insulin sliding scare for her DM. -Avoid nephrotoxic medications -Nephrology consult Suspected pneumonia -Pt reports some cough but minimal sputum production, mostly at night. -Repeat CXR here -Sputum cx -Continue antibiotics for now with IV Rocephin and IV doxy Home medications resumed as appropriate Diet: carb consistent DVT ppx: SCD, heparin Code status: Full Status: inpatient Discussed with patient at bedside. All questions answered. In agreement with theabove plan Frank Chu MD Internal Medicine Hospitalist Attending Physician IP vs OBS Justification Based on differential dx, clinical care plan, and risk of adverse events, if untreated, in my clinical judgement this patient requires an acute care setting as: INPATIENT because of an expectation of an over 2 midnight stay. Estimated length of stay (# of days): 3 Documented By: Frank Hudson MD 08/07/23 00 45 Signed By: <Electronically signed by Frank Hudson MD> 08/07/23 0115 [facility] Work Phone: 1(420) 964-467305-24-2024 Progress note Author Jaylan Child [facility] July 29, 2023 1:09pm Note Date/Time July 29, 2023 1:09p maliha [facility] [address] [place] [address] Hospitalist Progress Note Signed Patient: Conchis Charles MR#: [id number] 826 : 1955 Acct:[id number] Age/Sex: 68 / F Adm Date: 4 Loc: Room: [address] [place] [address] Type: ADM IN Attending Dr: Jaylan Child DO Copies to: ~ Date of Service: 07/29/2023 Subjective Subjective Narrative: Seen and evaluated, patient currently sitting up in the bed. Overnight events reviewed, patient went into flash pulmonary edema in middle the night due to herLasix being held for UMM and dehydration on admission. Patient was placed on high flow nasal cannula and this was titrated down to 4 L nasal cannula, patientis currently below her baseline as far as her respiration status goes. Exam Physical Exam Vital Signs: Temp Pulse Resp BP Pulse Ox O2 Del Method O2 Flow Rate 98.4 F 59 L 22 128/64 98 High Flow 35 07/29/23 11:25 07/29/23 12:17 07/29/23 12:17 07/29/23 11:25 07/29/23 12:17 07/29/23 11:25 07/29/23 12:17 FiO2 45 07/29/23 12:17 Narrative: General: Awake alert, no acute distress HEENT: head atraumatic, normocephalic, moist mucous membranes Neck: supple no masses, no lymphadenopathy CVS: regular rate and rhythm, no murmurs or gallops Respiratory: Coarse breath sounds heard throughout GI: soft, nondistended, nontender, positive bowel sounds with no organomegaly Extremity: moves all extremities, no restrictions of movements, no calf tenderness, no edema Neuro: AOx3, CN II-VII intact. Moves all extremities in all planes of motion. Skin: dry, intact no rashes or lesions Objective Lab Results 07/29/23 05:21 07/29/23 05:21 Microbiology Results Microbiology 07/25/23 23:07 Blood - Left Hand Blood Culture - Preliminary No Growth 3 Days 07/25/23 21:57 Blood - Right Antecubital Blood Culture - Preliminary No Growth 3 Days Meds Allergies and Active Meds Allergies Penicillins Allergy (Unknown, Verified 07/25/23 21:44) Unknown Reaction sulfamethoxazole Allergy (Unknown, Verified 07/25/23 21:44) hives Active Meds: Active Medications Generic Name Dose Route Start Last Admin Trade Name Freq PRN Reason Stop Dose Admin Acetaminophen 650 mg 07/26/23 05:16 07/28/23 00:36 Acetaminophen 325 Mg Tablet PO 07/25/24 05:15 650 mg Q6HR PRN Administration Pain Scale 1 - 3 or fever Albuterol 1 puff 07/26/23 12:55 Albuterol Hfa 60 Puff/8 Gram Inhaler INHALATION 07/25/24 12:54 Q4HR PRN shortness of breath or wheezing Albuterol/Ipratropium 3 ml 07/26/23 08:00 07/29/23 12:17 Ipratropium/Albuterol 0.5-3 Mg 3 Ml Ampul.Neb INHALATION 07/25/24 07:59 3 ml QID.RESP ANUSHA Administration Amantadine HCl 100 mg 07/27/23 09:00 07/29/23 09:46 Amantadine 100 Mg Capsule PO 07/26/24 08:59 100 mg DAILY ANUSHA Administration Aspirin 81 mg 07/27/23 09:00 07/29/23 09:47 Aspirin 81 Mg Tab.Chew PO 07/26/24 08:59 81 mg DAILY ANUSHA Administration Atorvastatin Calcium 40 mg 07/26/23 22:00 07/28/23 21:18 Atorvastatin 40 Mg Tablet PO 07/25/24 21:59 40 mg QHS ANUSHA Administration Calcium Carbonate 1 tab 07/26/23 21:00 07/29/23 09:46 Calcium Carbonate/Vitamin D3 500 Mg/200 Unit Tablet PO 07/25/24 20:59 1 tab BID ANUSHA Administration Cyclobenzaprine HCl 10 mg 07/26/23 22:00 07/28/23 21:18 Cyclobenzaprine 10 Mg Tablet PO 07/25/24 21:59 10 mg QHS ANUSHA Administration Dextrose 0 gm 07/26/23 07:58 Dextrose 50% In Water 25 Gm/50 Ml Syringe IV-PUSH 07/25/24 07:57 PRN PRN Hypoglycemia Fish Oil 1,000 mg 07/27/23 09:00 07/29/23 09:46 Concho-3/Fish Oil 1,000 Mg Capsule PO 07/26/24 08:59 1,000 mg DAILY ANUSHA Administration Furosemide 20 mg 07/29/23 15:00 Furosemide 20 Mg/2 Ml Vial IV-PUSH 07/29/23 15:01 ONCE ONE Furosemide 40 mg 07/29/23 21:00 Furosemide 40 Mg Tablet PO 07/28/24 20:59 BID ANUSHA Glucose 0 gm 07/26/23 07:58 Dextrose 40% Gel 15 Gm Tube PO 07/25/24 07:57 PRN PRN Hypoglycemia Guaifenesin/Dextromethorphan 1 tab 07/26/23 12:55 Guaif/Dextromethorphan 600-30mg Tab.Er.12h PO 07/25/24 12:54 DAILY PRN cough Hydrocodone Bit/Homatropine Methylb 5 ml 07/26/23 12:55 Hydrocodone/Homatropine Syrup 5 Ml Syrup PO Q6HR PRN cough Insulin Aspart 0 units 07/26/23 08:00 07/29/23 12:47 Insulin Aspart 300 Units/3 Ml Insuln.Pen SUBCUT 07/25/24 07:59 Not Given TID.WM.[facility] Protocol Levetiracetam 250 mg 07/26/23 21:00 07/29/23 09:46 Levetiracetam 250 Mg Tablet PO 07/25/24 20:59 250 mg BID ANUSHA Administration Levothyroxine Sodium 150 mcg 07/27/23 06:30 07/29/23 05:43 Levothyroxine 150 Mcg Tablet PO 07/26/24 06:29 150 mcg DAILY@0630 ANUSHA Administration Lisinopril 5 mg 07/30/23 09:00 Lisinopril 5 Mg Tablet PO 07/29/24 08:59 DAILY ANUSHA Loratadine 10 mg 07/27/23 09:00 07/29/23 09:47 Loratadine 10 Mg Tablet PO 07/26/24 08:59 10 mg DAILY ANUSHA Administration Alpha Lipoic Acid 600 mg 07/26/23 14:00 07/29/23 08:54 200 Mg Capsule PO 07/25/24 13:59 Not Given TID ANUSHA Ondansetron HCl 4 mg 07/26/23 05:16 Ondansetron 4 Mg/2 Ml Vial IV-PUSH 07/25/24 05:15 Q8H PRN Nausea And Vomiting Oxcarbazepine 450 mg 07/26/23 14:00 07/29/23 09:51 Oxcarbazepine 150 Mg Tablet PO 07/25/24 13:59 450 mg TID ANUSHA Administration Potassium Chloride 20 meq 07/26/23 21:00 07/29/23 09:58 Potassium Chloride Er 20 Meq Tab.Er.Prt PO 07/25/24 20:59 Not Given BID ANUSHA Prednisone 40 mg 07/29/23 09:00 07/29/23 09:47 Prednisone 20 Mg Tablet PO 08/14/23 08:59 40 mg DAILY ANUSHA Administration Taper Pregabalin 100 mg 07/29/23 13:05 Pregabalin 100 Mg Capsule PO 01/23/24 13:59 TID ANUSHA Ropinirole HCl 1 mg 07/26/23 22:00 07/28/23 21:17 Ropinirole 1 Mg Tablet PO 07/25/24 21:59 1 mg QHS ANUSHA Administration Sodium Chloride 0 ml 07/25/23 21:43 07/28/23 10:19 Sodium Chloride 0.9 % 10 Ml Syringe IV-PUSH 07/24/24 21:42 10 ml PRN PRN Administration Flush Sodium Chloride 0 ml 07/26/23 06:00 07/29/23 05:43 Sodium Chloride 0.9 % 10 Ml Syringe IV-PUSH 07/25/24 05:59 Not Given QSHIFT ANUSHA Vitamin D 25 mcg 07/27/23 09:00 07/29/23 09:47 Cholecalciferol 25 Mcg (1,000 Units) Tablet PO 07/26/24 08:59 25 mcg DAILY ANUSHA Administration A&P - Hospitalist Assessment/Plan (1) Sepsis: (2) COPD exacerbation: (3) Acute kidney failure: (4) Urinary retention: (5) Type 2 WA (myocardial infarction): (6) Smoker: (7) Sleep apnea: (8) Hypothyroidism: (9) Hyperlipidemia: Plan Flash pulmonary edema ? Patient received 1 dose of IV Lasix 40 mg this morning at 4 AM, her hyponasal cannula was quickly titrated down to nasal cannula and she is currently saturating well on 4 L ? Her baseline is 2 L ? Will have another dose of 20 mg IV push Lasix this afternoon with plans to resume her normal dose of 40 mg p.o. twice daily starting tomorrow Sepsis Acute cystitis Etiology appears to be UTI versus respiratory infection -Will need 3 days total of ceftriaxone ?She has been afebrile since admission -Urine culture shows pansensitive E. coli ?Resolved COPD exacerbation Acute on chronic hypoxic respiratory failure -Initiate prednisone taper ?40 mg for 4 days, titrate down 10 mg every 4 days until 0 -Supplemental O2 as needed -DuoNejulianna scheduled -Vp Site on smoking cessation UMM ? Held home dose of Lasix and lisinopril, creatinine has trended and is now normal ? UMM resolved ? Continue Lyrica at her home dose of 200 mg 3 times daily, resume home dose of Lasix 40 twice daily and lisinopril 5 mg daily tomorrow Troponin elevation ?Discontinue heparin GTT, troponin elevation likely secondary to sepsis and demand ischemia -Echocardiogram shows EF of 65% with trivial valvular arctic stenosis -No intervention per cardiology Urinary retention Found upon admission to the medical floor. Hanson catheter placed -Hanson catheter removed on July 26 CODE STATUS: Full code Anticipate discharge to SNF tomorrow, this was explained to the patient and she is agreeable to the plan Documented By: Jaylan Child DO 07/29/23 1306 Signed By: <Electronically signed by Jaylan Child DO> 07/29/23 1309 [facility] Work Phone: 1(291) 762-289505-23-2024 Progress note Author Jaylan Child [facility] July 28, 2023 12:06pm Note Date/Time July 28, 2023 12:03 pm [facility] [address] [place] [address] Hospitalist Progress Note Signed Patient: Conchis Charles MR#: [id number] 826 : 1955 Acct:[id number] Age/Sex: 68 / F Adm Date: 4 Loc: Room: [address] [place] [address] Type: ADM IN Attending Dr: Jaylan Child DO Copies to: ~ Date of Service: 07/28/2023 Subjective Subjective Narrative: Seen and evaluated, patient currently laying in bed, she sits up and states she is still feeling a little bit weak but overall feels she is breathing back to her baseline. Exam Physical Exam Vital Signs: Temp Pulse Resp BP Pulse Ox O2 Del Method O2 Flow Rate 97.5 F L 60 18 114/58 L 93 L Nasal Cannula 3 07/28/23 11:26 07/28/23 11:26 07/28/23 11:07/28/23 11:07/28/23 11:07/28/23 11:07/28/23 11:26 FiO2 5 07/26/23 04:00 Narrative: General: Awake alert, no acute distress HEENT: head atraumatic, normocephalic, moist mucous membranes Neck: supple no masses, no lymphadenopathy CVS: regular rate and rhythm, no murmurs or gallops Respiratory: Diffuse expiratory wheezes noted, rhonchi noted on the right upper lobe GI: soft, nondistended, nontender, positive bowel sounds with no organomegaly Extremity: moves all extremities, no restrictions of movements, no calf tenderness, no edema Neuro: AOx3, CN II-VII intact. Moves all extremities in all planes of motion. Skin: dry, intact no rashes or lesions Objective Lab Results 07/27/23 05:18 07/28/23 04:50 Microbiology Results Microbiology 07/26/23 04:29 Urine - Hanson Catheter Urine Culture - Final Escherichia coli 07/25/23 23:07 Blood - Left Hand Blood Culture - Preliminary No Growth 2 Days 07/25/23 21:57 Blood - Right Antecubital Blood Culture - Preliminary No Growth 2 Days Meds Allergies and Active Meds Allergies Penicillins Allergy (Unknown, Verified 07/25/23 21:44) Unknown Reaction sulfamethoxazole Allergy (Unknown, Verified 07/25/23 21:44) hives Active Meds: Active Medications Generic Name Dose Route Start Last Admin Trade Name Jakobq PRN Reason Stop Dose Admin Acetaminophen 650 mg 07/26/23 05:16 07/28/23 00:36 Acetaminophen 325 Mg Tablet PO 07/25/24 05:15 650 mg Q6HR PRN Administration Pain Scale 1 - 3 or fever Albuterol 1 puff 07/26/23 12:55 Albuterol Hfa 60 Puff/8 Gram Inhaler INHALATION 07/25/24 12:54 Q4HR PRN shortness of breath or wheezing Albuterol/Ipratropium 3 ml 07/26/23 08:00 07/28/23 11:51 Ipratropium/Albuterol 0.5-3 Mg 3 Ml Ampul.Neb INHALATION 07/25/24 07:59 3 ml QID.RESP ANUSHA Administration Amantadine HCl 100 mg 07/27/23 09:00 07/28/23 08:18 Amantadine 100 Mg Capsule PO 07/26/24 08:59 100 mg DAILY ANUSHA Administration Aspirin 81 mg 07/27/23 09:00 07/28/23 08:16 Aspirin 81 Mg Tab.Chew PO 07/26/24 08:59 81 mg DAILY ANUSHA Administration Atorvastatin Calcium 40 mg 07/26/23 22:00 07/27/23 21:13 Atorvastatin 40 Mg Tablet PO 07/25/24 21:59 Not Given QHS ANUSHA Calcium Carbonate 1 tab 07/26/23 21:00 07/28/23 08:16 Calcium Carbonate/Vitamin D3 500 Mg/200 Unit Tablet PO 07/25/24 20:59 1 tab BID ANUSHA Administration Cyclobenzaprine HCl 10 mg 07/26/23 22:00 07/27/23 21:13 Cyclobenzaprine 10 Mg Tablet PO 07/25/24 21:59 Not Given QHS ANUSHA Dextrose 0 gm 07/26/23 07:58 Dextrose 50% In Water 25 Gm/50 Ml Syringe IV-PUSH 07/25/24 07:57 PRN PRN Hypoglycemia Fish Oil 1,000 mg 07/27/23 09:00 07/28/23 08:16 Concho-3/Fish Oil 1,000 Mg Capsule PO 07/26/24 08:59 1,000 mg DAILY ANUSHA Administration Glucose 0 gm 07/26/23 07:58 Dextrose 40% Gel 15 Gm Tube PO 07/25/24 07:57 PRN PRN Hypoglycemia Guaifenesin/Dextromethorphan 1 tab 07/26/23 12:55 Guaif/Dextromethorphan 600-30mg Tab.Er.12h PO 07/25/24 12:54 DAILY PRN cough Hydrocodone Bit/Homatropine Methylb 5 ml 07/26/23 12:55 Hydrocodone/Homatropine Syrup 5 Ml Syrup PO Q6HR PRN cough Ceftriaxone Sodium 1 gm in 50 mls @ 100 mls/hr 07/26/23 22:00 07/27/23 21:38 Rocephin IV 07/28/23 22:29 Infused Q24H ANUSHA Infusion Azithromycin 500 mg in 250 mls @ 250 mls/hr 07/26/23 09:00 07/28/23 09:54 Zithromax IV 07/29/23 09:59 Infused Q24H ANUSHA Infusion Insulin Aspart 0 units 07/26/23 08:00 07/28/23 09:08 Insulin Aspart 300 Units/3 Ml Insuln.Pen SUBCUT 07/25/24 07:59 Not Given TID.WM.[facility] Protocol Levetiracetam 250 mg 07/26/23 21:00 07/28/23 08:18 Levetiracetam 250 Mg Tablet PO 07/25/24 20:59 250 mg BID ANUSHA Administration Levothyroxine Sodium 150 mcg 07/27/23 06:30 07/28/23 05:45 Levothyroxine 150 Mcg Tablet PO 07/26/24 06:29 Not Given DAILY@0630 ANUSHA Loratadine 10 mg 07/27/23 09:00 07/28/23 08:17 Loratadine 10 Mg Tablet PO 07/26/24 08:59 10 mg DAILY ANUSHA Administration Methylprednisolone Sodium Succinate 20 mg 07/26/23 09:00 07/28/23 08:18 Methylprednisolone Sod Succ/Pf 40 Mg/Ml (1ml) Vial IV-PUSH 07/25/24 08:59 20 mg Q12HR ANUSHA Administration Alpha Lipoic Acid 600 mg 07/26/23 14:00 07/28/23 09:09 200 Mg Capsule PO 07/25/24 13:59 Not Given TID ANUSHA Ondansetron HCl 4 mg 07/26/23 05:16 Ondansetron 4 Mg/2 Ml Vial IV-PUSH 07/25/24 05:15 Q8H PRN Nausea And Vomiting Oxcarbazepine 450 mg 07/26/23 14:00 07/28/23 08:17 Oxcarbazepine 150 Mg Tablet PO 07/25/24 13:59 450 mg TID ANUSHA Administration Potassium Chloride 20 meq 07/26/23 21:00 07/28/23 09:09 Potassium Chloride Er 20 Meq Tab.Er.Prt PO 07/25/24 20:59 Not Given BID ANUSHA Pregabalin 100 mg 07/27/23 14:00 07/28/23 08:18 Pregabalin 100 Mg Capsule PO 01/23/24 13:59 100 mg TID ANUSHA Administration Ropinirole HCl 1 mg 07/26/23 22:00 07/27/23 20:59 Ropinirole 1 Mg Tablet PO 07/25/24 21:59 1 mg QHS ANUSHA Administration Sodium Chloride 0 ml 07/25/23 21:43 07/28/23 10:19 Sodium Chloride 0.9 % 10 Ml Syringe IV-PUSH 07/24/24 21:42 10 ml PRN PRN Administration Flush Sodium Chloride 0 ml 07/26/23 06:00 07/28/23 05:45 Sodium Chloride 0.9 % 10 Ml Syringe IV-PUSH 07/25/24 05:59 Not Given QSHIFT ANUSHA Vitamin D 25 mcg 07/27/23 09:00 07/28/23 08:16 Cholecalciferol 25 Mcg (1,000 Units) Tablet PO 07/26/24 08:59 25 mcg DAILY ANUSHA Administration A&P - Hospitalist Assessment/Plan (1) Sepsis: (2) COPD exacerbation: (3) Acute kidney failure: (4) Urinary retention: (5) Type 2 WA (myocardial infarction): (6) Smoker: (7) Sleep apnea: (8) Hypothyroidism: (9) Hyperlipidemia: Plan Sepsis Acute cystitis Etiology appears to be UTI versus respiratory infection -Will need 3 days total of ceftriaxone ?She has been afebrile since admission -Urine culture shows pansensitive E. coli COPD exacerbation Acute on chronic hypoxic respiratory failure -Initiate prednisone taper ?40 mg for 4 days, titrate down 10 mg every 4 days until 0 -Supplemental O2 as needed -DuoNebs scheduled -Vp Site on smoking cessation Troponin elevation ?Discontinue heparin GTT, troponin elevation likely secondary to sepsis and demand ischemia -Echocardiogram shows EF of 65% with trivial valvular arctic stenosis -No intervention per cardiology Urinary retention Found upon admission to the medical floor. Hanson catheter placed -Hanson catheter removed on July 26 CODE STATUS: Full code Documented By: Jaylan Child DO 07/28/23 1200 Signed By: <Electronically signed by Jaylan Child DO> 07/28/23 1206 [facility] Work Phone: 1(479) 286-429105-22-2024 Progress note Author Jaylan Child [facility] July 27, 2023 12:42pm Note Date/Time July 27, 2023 12:42 pm [facility] [address] [place] [address] Hospitalist Progress Note Signed Patient: Best,Conchis M MR#: [id number] 826 : 1955 Acct:[id number] Age/Sex: 68 / F Adm Date: 4 Loc: 4 Room: [address] [place] [address] Type: ADM IN Attending Dr: Jaylan Child DO Copies to: ~ Date of Service: 07/27/2023 Subjective Subjective Narrative: Seen and evaluated, patient currently sitting up in bed and does endorse feelingmuch better though she still feels quite weak Exam Physical Exam Vital Signs: Temp Pulse Resp BP Pulse Ox O2 Del Method O2 Flow Rate 97.7 F 49 L 16 99/61 L 100 Nasal Cannula 2 07/27/23 07:52 07/27/23 08:17 07/27/23 08:17 07/27/23 07:52 07/27/23 08:00 07/27/23 08:00 07/27/23 08:21 FiO2 5 07/26/23 04:00 Narrative: General: Awake alert, no acute distress HEENT: head atraumatic, normocephalic, moist mucous membranes Neck: supple no masses, no lymphadenopathy CVS: regular rate and rhythm, no murmurs or gallops Respiratory: Diffuse expiratory wheezes noted, rhonchi noted on the right upper lobe GI: soft, nondistended, nontender, positive bowel sounds with no organomegaly Extremity: moves all extremities, no restrictions of movements, no calf tenderness, no edema Neuro: AOx3, CN II-VII intact. Moves all extremities in all planes of motion. Skin: dry, intact no rashes or lesions Objective Lab Results 07/27/23 05:18 07/27/23 05:18 Microbiology Results Microbiology 07/26/23 04:29 Urine - Hanson Catheter Urine Culture - Preliminary Gram Negative Bacilli 07/25/23 23:07 Blood - Left Hand Blood Culture - Preliminary No Growth 1 Day 07/25/23 21:57 Blood - Right Antecubital Blood Culture - Preliminary No Growth 1 Day Meds Allergies and Active Meds Allergies Penicillins Allergy (Unknown, Verified 07/25/23 21:44) Unknown Reaction sulfamethoxazole Allergy (Unknown, Verified 07/25/23 21:44) hives Active Meds: Active Medications Generic Name Dose Route Start Last Admin Trade Name Freq PRN Reason Stop Dose Admin Acetaminophen 650 mg 07/26/23 05:16 Acetaminophen 325 Mg Tablet PO 07/25/24 05:15 Q6HR PRN Pain Scale 1 - 3 or fever Albuterol 1 puff 07/26/23 12:55 Albuterol Hfa 60 Puff/8 Gram Inhaler INHALATION 07/25/24 12:54 Q4HR PRN shortness of breath or wheezing Albuterol/Ipratropium 3 ml 07/26/23 08:00 07/27/23 08:17 Ipratropium/Albuterol 0.5-3 Mg 3 Ml Ampul.Neb INHALATION 07/25/24 07:59 3 ml QID.RESP ANUSHA Administration Amantadine HCl 100 mg 07/27/23 09:00 07/27/23 08:35 Amantadine 100 Mg Capsule PO 07/26/24 08:59 100 mg DAILY ANUSHA Administration Aspirin 81 mg 07/27/23 09:00 07/27/23 08:34 Aspirin 81 Mg Tab.Chew PO 07/26/24 08:59 81 mg DAILY ANUSHA Administration Atorvastatin Calcium 40 mg 07/26/23 22:00 07/26/23 21:49 Atorvastatin 40 Mg Tablet PO 07/25/24 21:59 40 mg QHS ANUSHA Administration Calcium Carbonate 1 tab 07/26/23 21:00 07/27/23 08:34 Calcium Carbonate/Vitamin D3 500 Mg/200 Unit Tablet PO 07/25/24 20:59 1 tab BID ANUSHA Administration Cyclobenzaprine HCl 10 mg 07/26/23 22:00 07/27/23 06:37 Cyclobenzaprine 10 Mg Tablet PO 07/25/24 21:59 Not Given QHS ANUSHA Dextrose 0 gm 07/26/23 07:58 Dextrose 50% In Water 25 Gm/50 Ml Syringe IV-PUSH 07/25/24 07:57 PRN PRN Hypoglycemia Fish Oil 1,000 mg 07/27/23 09:00 07/27/23 08:35 Concho-3/Fish Oil 1,000 Mg Capsule PO 07/26/24 08:59 1,000 mg DAILY ANUSHA Administration Glucose 0 gm 07/26/23 07:58 Dextrose 40% Gel 15 Gm Tube PO 07/25/24 07:57 PRN PRN Hypoglycemia Guaifenesin/Dextromethorphan 1 tab 07/26/23 12:55 Guaif/Dextromethorphan 600-30mg Tab.Er.12h PO 07/25/24 12:54 DAILY PRN cough Hydrocodone Bit/Homatropine Methylb 5 ml 07/26/23 12:55 Hydrocodone/Homatropine Syrup 5 Ml Syrup PO Q6HR PRN cough Ceftriaxone Sodium 1 gm in 50 mls @ 100 mls/hr 07/26/23 22:00 07/26/23 22:00 Rocephin IV Infused Q24H ANUSHA Infusion Azithromycin 500 mg in 250 mls @ 250 mls/hr 07/26/23 09:00 07/27/23 09:35 Zithromax IV Infused Q24H ANUSHA Infusion Insulin Aspart 0 units 07/26/23 08:00 07/27/23 12:17 Insulin Aspart 300 Units/3 Ml Insuln.Pen SUBCUT 07/25/24 07:59 Not Given TID.WM.HS ANUSHA Protocol Levetiracetam 250 mg 07/26/23 21:00 07/27/23 08:40 Levetiracetam 250 Mg Tablet PO 07/25/24 20:59 250 mg BID ANUSHA Administration Levothyroxine Sodium 150 mcg 07/27/23 06:30 07/27/23 06:43 Levothyroxine 150 Mcg Tablet PO 07/26/24 06:29 150 mcg DAILY@0630 ANUSHA Administration Loratadine 10 mg 07/27/23 09:00 07/27/23 08:35 Loratadine 10 Mg Tablet PO 07/26/24 08:59 10 mg DAILY ANUSHA Administration Methylprednisolone Sodium Succinate 20 mg 07/26/23 09:00 07/27/23 08:34 Methylprednisolone Sod Succ/Pf 40 Mg/Ml (1ml) Vial IV-PUSH 07/25/24 08:59 20 mg Q12HR ANUSHA Administration Alpha Lipoic Acid 600 mg 07/26/23 14:00 07/27/23 08:33 200 Mg Capsule PO 07/25/24 13:59 Not Given TID ANUSHA Ondansetron HCl 4 mg 07/26/23 05:16 Ondansetron 4 Mg/2 Ml Vial IV-PUSH 07/25/24 05:15 Q8H PRN Nausea And Vomiting Oxcarbazepine 450 mg 07/26/23 14:00 07/27/23 08:35 Oxcarbazepine 150 Mg Tablet PO 07/25/24 13:59 450 mg TID ANUSHA Administration Potassium Chloride 20 meq 07/26/23 21:00 07/27/23 08:35 Potassium Chloride Er 20 Meq Tab.Er.Prt PO 07/25/24 20:59 20 meq BID ANUSHA Administration Pregabalin 200 mg 07/26/23 18:00 07/27/23 08:35 Pregabalin 100 Mg Capsule PO 07/25/24 17:59 200 mg TID ANUSHA Administration Ropinirole HCl 1 mg 07/26/23 22:00 07/26/23 21:49 Ropinirole 1 Mg Tablet PO 07/25/24 21:59 1 mg QHS ANUSHA Administration Sodium Chloride 0 ml 07/25/23 21:43 07/27/23 08:36 Sodium Chloride 0.9 % 10 Ml Syringe IV-PUSH 07/24/24 21:42 10 ml PRN PRN Administration Flush Sodium Chloride 0 ml 07/26/23 06:00 07/27/23 06:43 Sodium Chloride 0.9 % 10 Ml Syringe IV-PUSH 07/25/24 05:59 10 ml QSHIFT ANUSHA Administration Vitamin D 25 mcg 07/27/23 09:00 07/27/23 08:35 Cholecalciferol 25 Mcg (1,000 Units) Tablet PO 07/26/24 08:59 25 mcg DAILY ANUSHA Administration A&P - Hospitalist Assessment/Plan (1) Sepsis: (2) COPD exacerbation: (3) Acute kidney failure: (4) Urinary retention: (5) Type 2 WA (myocardial infarction): (6) Smoker: (7) Sleep apnea: (8) Hypothyroidism: (9) Hyperlipidemia: Plan Sepsis Acute cystitis Etiology appears to be UTI versus respiratory infection -Will need 3 days total of ceftriaxone ?She has been afebrile since admission -Urine culture shows gram-negative bacilli, species pending COPD exacerbation Acute on chronic hypoxic respiratory failure -Initiate prednisone taper ?40 mg for 4 days, titrate down 10 mg every 4 days until 0 -Supplemental O2 as needed -DuoNebs scheduled -Vp Site on smoking cessation Troponin elevation ?Discontinue heparin GTT, troponin elevation likely secondary to sepsis and demand ischemia -Echocardiogram shows EF of 65% with trivial valvular arctic stenosis -No intervention per cardiology Urinary retention Found upon admission to the medical floor. Hanson catheter placed -Plan to attempt trial of void today CODE STATUS: Full code Documented By: Jaylan Child DO 07/27/23 1238 Signed By: <Electronically signed by Jyalan Child DO> 07/27/23 1242 [facility] Work Phone: 1([phone]) 290-361605-21-2024 Consult note Author Ciro Galdamez [facility] July 26, 2023 12:58pm Note Date/Time July 26, 2023 12:17 pm [facility] [address] [place] [address] Cardiology Consult Note Signed Patient: Conchis Charles MR#: [id number] 826 : 1955 Acct:[id number] Age/Sex: 68 / F Adm Date: 4 Loc: Room: [address] [place] [address] Type: ADM IN Attending Dr: Jaylan Child DO Copies to: DO Jaylan Monzon DO W Scott Sheldon, DO~ Cardiology HPI History of Present Illness Consult Date: 07/26/23 Reason for Consult: Elevated troponins HPI: Ms. Charles is a 68 year old female seen in cardiology consultation at request the hospitalist and in conjunction with first-year medical safety director Dr. Ramsey for mildly elevated troponin., We have evaluated, examined and interviewed the patient concurrently, I agree with her interpretation of data, and current management and review of the echocardiogram at bedside as well as catheterization performed 11 months ago. Patient states that she felt and was unable to get up with assistance, so she called for help. She states she has been having severe shortness of breath for the past few months, states it has been worse during the past week. Patient is currently on home oxygen, she states she has dyspnea with very mild exertion currently. Patient currently denies any chest pain, arm pain. She endorses dyspnea with exertion. Patient is current smoker. Cardiac catheterization most recently was done on 08/30/22, which showed minimal coronary artery disease, normal L ventricular function, and EF of 65%. 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 Initial troponin was 68.6, this morning at 109.7. Pressures are soft. She is satting comfortably on NC 2L O2. Echo was reviewed at bedside which revealed normal L/R ventricular function. Given current non-cardiac issues including COPD, acute cystitis, etiology of slightly elevated troponin appears to be likely type 2 event secondary to demandischemia. Thank you for the consult will be signing off. There is no evidence of true ACS, minor troponin elevation is likely secondary to noncardiac issues with minimal troponin elevation. Review of Systems Review of Systems All other systems reviewed & are negative unless noted below or in HPI [facility] Medical History (Updated 07/26/23 @ 12:57 by Ciro Galdamez DO) Rupture Achilles tendon both feet Feeling of incomplete bladder emptying Neuropathy Diabetes COPD (chronic obstructive pulmonary disease) Surgical History Status post right foot surgery Status post laser cataract surgery of both eyes History of hip surgery H/O thyroidectomy H/O: hysterectomy Family History Father Pneumonia Grandparent Liver disease Legacy FamHx Relation: Maternal Grand Father Legacy FamHx Relation: Maternal Grand Father Grandparent Cancer Legacy FamHx Relation: Maternal Grand Mother; Legacy FamHx Problem: Diagnosed with Cancer Legacy FamHx Relation: Maternal Grand Mother Grandparent Myocardial infarction Legacy FamHx Relation: Paternal Grand Father Legacy FamHx Relation: Paternal Grand Father Heart disease Legacy FamHx Relation: Paternal Grand Father Grandparent Legacy FamHx Relation: Paternal Grand Mother Diabetes Legacy FamHx Relation: Paternal Grand Mother Grandparent Cancer Legacy FamHx Relation: Maternal Grand Mother Grandparent Diabetes Legacy FamHx Relation: Paternal Grand Mother Mother Cancer Legacy FamHx Problem: Diagnosed with Cancer Social History Smoking Status: Current every day smoker Tobacco Type: cigarettes Substance Use Type: None Substance Abuse Comment: denies illegal drug use. 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 and Allergies Allergies Penicillins Allergy (Unknown, Verified 07/25/23 21:44) Unknown Reaction sulfamethoxazole Allergy (Unknown, Verified 07/25/23 21:44) hives Home Medications Oxygen 06/24/23 [History Confirmed 07/26/23] albuterol sulfate 2.5 mg/3 mL (0.083 %) solution for nebulization 2.5 mg inhalation Q8HR 06/24/23 [History Confirmed 07/26/23] albuterol sulfate 90 mcg/actuation aerosol inhaler 1 puff inhalation Q4HR PRN shortness of breath or wheezing 06/24/23 [History Confirmed 07/26/23] albuterol sulfate 90 mcg/actuation aerosol inhaler (ProAir HFA) 1 inh [id number] 06/24/23 [History Confirmed 07/26/23] alpha lipoic acid 200 mg capsule 600 mg PO TID 06/24/23 [History Confirmed 07/26/23] aspirin 81 mg chewable tablet 1 tab PO DAILY 06/24/23 [History Confirmed 07/26/23] atorvastatin 40 mg tablet 40 mg PO DAILY 06/24/23 [History Confirmed 07/26/23] blood sugar diagnostic (Blood Glucose Test strips) 06/24/23 [History Confirmed 07/26/23] calcium carbonate 600 mg-vitamin D3 5 mcg (200 unit) tablet 1 tab PO BID 06/24/23 [History Confirmed 07/26/23] cetirizine 10 mg tablet (Zyrtec) 10 mg PO DAILY 06/24/23 [History Confirmed 07/26/23] cholecalciferol (vitamin D3) 25 mcg (1,000 unit) capsule 1,000 unit PO DAILY 06/24/23 [History Confirmed 07/26/23] cyclobenzaprine 10 mg tablet 10 mg PO QHS 06/24/23 [History Confirmed 07/26/23] dextromethorphan-guaifenesin 30 mg-600 mg tablet extended [id number] hr 1 tab PO DAILY PRN cough 06/24/23 [History Confirmed 07/26/23] furosemide 40 mg tablet 40 mg PO BID 06/24/23 [History Confirmed 07/26/23] hydrocodone-homatropine 5 mg-1.5 mg/5 mL oral syrup 5 ml PO Q6HR PRN cough 06/24/23 [History Confirmed 07/26/23] levothyroxine 150 mcg tablet 150 mcg PO DAILY 06/24/23 [History Confirmed 07/26/23] lisinopril 5 mg tablet 5 mg PO DAILY 06/24/23 [History Confirmed 07/26/23] nebulizer accessories (Adult Aerosol Mask) 06/24/23 [History Confirmed 07/26/23] omega-3 fatty acids 1,000 mg capsule 1,000 mg PO DAILY 06/24/23 [History Confirmed 07/26/23] oxcarbazepine 300 mg tablet (Trileptal) 450 mg PO TID 06/24/23 [History Confirmed 07/26/23] potassium chloride 20 mEq tablet,extended release 20 meq PO BID 06/24/23 [History Confirmed 07/26/23] pregabalin 200 mg capsule 200 mg PO TID 06/24/23 [History Confirmed 07/26/23] ropinirole 1 mg tablet 1 mg PO DAILY 06/24/23 [History Confirmed 07/26/23] saliva substitute combo no.9 (Biotene Dry Mouth Oral Rinse mouthwash) 15 ml mucous membrane BID-QID PRN dry mouth 06/24/23 [History Confirmed 07/26/23] umeclidinium 62.5 mcg-vilanterol 25 mcg/actuation powdr for inhalation (Anoro Ellipta) 1 inh inhalation DAILY 06/24/23 [History Confirmed 07/26/23] amantadine HCl 100 mg tablet 100 mg PO DAILY 07/26/23 [History Confirmed 07/26/23] levetiracetam 250 mg tablet 250 mg PO DAILY 07/26/23 [History Confirmed 07/26/23] Exam Physical Exam Vital Signs: Temp Pulse Resp BP Pulse Ox O2 Del Method O2 Flow Rate 97.5 F L 46 L 18 96/61 L 96 Nasal Cannula 2 07/26/23 07:40 07/26/23 08:44 07/26/23 08:44 07/26/23 07:40 07/26/23 08:40 07/26/23 08:40 07/26/23 08:40 FiO2 5 07/26/23 04:00 Const General: cooperative and frail appearing Nutritional Appearance: average body habitus Neck Neck: full ROM Chest Chest palpation & inspection: normal inspection of the chest Resp Effort & Inspection: able to speak in complete sentences and symmetric chest movement Cardio Rate: regular rate Rhythm: regular rhythm AGAPITO Risk Score AGAPITO Risk Score Predictor Historical: Age > 65 Years Old and 3 or more Risk Factors: FHx,HTN,elevated cholesterol,DM,active smoker Presentation: Increased Cardiac Marker Score Risk Score (0-7): 3 Results: 3 Results - Cardiology Labs 07/26/23 02:02 07/25/23 21:54 Lab results: CBC 05/20/24 05/21/24 Range/Units 21:54 02:02 RBC 4.51 4.17 (3.60-5.00) X10E6/uL Hgb 13.5 12.4 (11.8-15.4) g/dL Hct 40.3 36.9 (34.0-46.4) % Plt Count 112 L 105 L (150-450) x10E3/uL Neut # (Auto) 5.8 6.3 (1.8-7.7) x10E3/uL Lymph # (Auto) 0.8 L 0.2 L (1.00-4.8) x10E3/uL Toole # (Auto) 0.6 0.2 (0.0-0.8) x10E3/uL Eos # (Auto) 0.1 0.0 (0.0-0.45) x10E3/uL Baso # (Auto) 0.1 0.1 (0.0-0.2) x10E3/uL Comprehensive Metabolic Panel 07/25/23 Range/Units 21:54 Sodium 136 (136-145) mmol/L Potassium 4.7 (3.5-5.1) mmol/L Chloride 96 L (98-107) mmol/L Carbon Dioxide 32.3 H (21.0-31.0) mmol/L BUN 38 H (7-25) mg/dL Creatinine 1.80 H (0.60-1.20) mg/dL Glucose 146 H (70-100) mg/dL Calcium 8.9 (8.6-10.3) mg/dL Intake and Output 07/25/23 07/26/23 07/26/23 23:59 07:59 15:59 Intake Total 1100 / 1100 0 / 0 Output Total 950 / 950 Balance 1100 / 1100 -950 / -950 Intake: IV 1100 / 1100 Magnesium Sulf 2Gm-*Swfi* 2 gm 50 / 50 In 50 ml @ 200 mls/hr IV ONCE ONE Rx#:[id number] Sodium Chloride 0.9% 1,000 ml 1 1000 / 1000 ,000 ml @ 999 mls/hr IV .Q1H1M ONE Rx#:[id number] cefTRIAXone 2GM-*NS* 2 gm In 50 50 / 50 ml @ 100 mls/hr IV ONCE ONE Rx #:[id number] Oral 0 / 0 Output: Urine Amount (Catheter) 950 / 950 Urethral (Hanson) 950 / 950 Other: Weight 70.7 kg 68.8 kg Patient Weight 07/26/23 23:59 Weight 68.8 kg Lab 07/26/23 07/26/23 02:02 08:13 PT 11.4 INR 1.0 APTT 29.6 53.6 H EKG Interpretations EKG EKG results cardiology: sinus rhythm Blocks, axis, hypertrophy, ST abn AV and intraventricular conduction: intraventricular conduction delay A&P - Cardiology (1) Type 2 WA (myocardial infarction): Code(s): I21.A1 - Myocardial infarction type 2 (2) COPD exacerbation: Code(s): J44.1 - Chronic obstructive pulmonary disease with (acute) exacerbation (3) Smoker: Code(s): F17.200 - Nicotine dependence, unspecified, uncomplicated (4) Diabetes: Code(s): E11.9 - Type 2 diabetes mellitus without complications (5) Acute kidney failure: Code(s): N17.9 - Acute kidney failure, unspecified (6) UTI (urinary tract infection): Code(s): N39.0 - Urinary tract infection, site not specified Plan See above Documented By: Ciro Galdamez DO 07/26/23 1003 Signed By: <Electronically signed by Ciro Galdamez DO> 07/26/23 0030 [facility] Work Phone: 1(443) 391-503805-21-2024 Progress note Author Jaylan Child [facility] July 26, 2023 12:37pm Note Date/Time July 26, 2023 12:37 pm [facility] [address] [place] [address] Hospitalist Progress Note Signed Patient: Conchis Charles MR#: [id number] 826 : 1955 Acct:[id number] Age/Sex: 68 / F Adm Date: 4 Loc: Room: [address] [place] [address] Type: ADM IN Attending Dr: Jaylan Child DO Copies to: ~ Date of Service: 07/26/2023 Subjective Subjective Narrative: Seen and evaluated, patient currently sitting up in the chair and she is alert and oriented by 3 right now. She does recall being quite confused as yesterday and says this has been happening for a while now where she had a lot of confusion. I did let her know that she has a urinary tract infection and likelyCOPD this patient, there is always a possibility for pneumonia but on exam she is quite wheezy and I am favoring UTI with COPD at this point in time. Therapy has been ordered, patient states she is not interested in going to a SNF at thispoint in time and says that she does have help at home, I did encourage her to reconsider throughout her admission. Exam Physical Exam Vital Signs: Temp Pulse Resp BP Pulse Ox O2 Del Method O2 Flow Rate 97.5 F L 46 L 18 96/61 L 96 Nasal Cannula 2 07/26/23 07:40 07/26/23 08:44 07/26/23 08:44 07/26/23 07:40 07/26/23 08:40 07/26/23 08:40 07/26/23 08:40 FiO2 5 07/26/23 04:00 Narrative: General: Awake alert, no acute distress HEENT: head atraumatic, normocephalic, moist mucous membranes Neck: supple no masses, no lymphadenopathy CVS: regular rate and rhythm, no murmurs or gallops Respiratory: Diffuse expiratory wheezes noted, rhonchi noted on the right upper lobe GI: soft, nondistended, nontender, positive bowel sounds with no organomegaly Extremity: moves all extremities, no restrictions of movements, no calf tenderness, no edema Neuro: AOx3, CN II-VII intact. Moves all extremities in all planes of motion. Skin: dry, intact no rashes or lesions Objective Lab Results 07/26/23 02:02 07/25/23 21:54 Microbiology Results Microbiology 07/25/23 21:50 Nasopharyngeal SARS-CoV-2, Influenza & RSV (PCR) - Final Meds Allergies and Active Meds Allergies Penicillins Allergy (Unknown, Verified 07/25/23 21:44) Unknown Reaction sulfamethoxazole Allergy (Unknown, Verified 07/25/23 21:44) hives Active Meds: Active Medications Generic Name Dose Route Start Last Admin Trade Name Freq PRN Reason Stop Dose Admin Acetaminophen 650 mg 07/26/23 05:16 Acetaminophen 325 Mg Tablet PO 07/25/24 05:15 Q6HR PRN Pain Scale 1 - 3 or fever Albuterol/Ipratropium 3 ml 07/26/23 08:00 07/26/23 11:37 Ipratropium/Albuterol 0.5-3 Mg 3 Ml Ampul.Neb INHALATION 07/25/24 07:59 3 ml QID.RESP ANUSHA Administration Dextrose 0 gm 07/26/23 07:58 Dextrose 50% In Water 25 Gm/50 Ml Syringe IV-PUSH 07/25/24 07:57 PRN PRN Hypoglycemia Glucose 0 gm 07/26/23 07:58 Dextrose 40% Gel 15 Gm Tube PO 07/25/24 07:57 PRN PRN Hypoglycemia Ceftriaxone Sodium 1 gm in 50 mls @ 100 mls/hr 07/26/23 22:00 Rocephin IV Q24H ANUSHA Azithromycin 500 mg in 250 mls @ 250 mls/hr 07/26/23 09:00 07/26/23 08:45 Zithromax IV 250 mls/hr Q24H ANUSHA Administration Insulin Aspart 0 units 07/26/23 08:00 07/26/23 12:16 Insulin Aspart 300 Units/3 Ml Insuln.Pen SUBCUT 07/25/24 07:59 Not Given TID.WM.HS [facility] Protocol Methylprednisolone Sodium Succinate 20 mg 07/26/23 09:00 07/26/23 08:45 Methylprednisolone Sod Succ/Pf 40 Mg/Ml (1ml) Vial IV-PUSH 07/25/24 08:59 20 mg Q12HR ANUSHA Administration Ondansetron HCl 4 mg 07/26/23 05:16 Ondansetron 4 Mg/2 Ml Vial IV-PUSH 07/25/24 05:15 Q8H PRN Nausea And Vomiting Potassium Chloride 40 meq 07/26/23 05:16 Potassium Chloride Er 20 Meq Tab.Er.Prt PO 07/25/24 05:15 DAILY PRN Hypokalemia Sodium Chloride 0 ml 07/25/23 21:43 Sodium Chloride 0.9 % 10 Ml Syringe IV-PUSH 07/24/24 21:42 PRN PRN Flush Sodium Chloride 0 ml 07/26/23 06:00 07/26/23 07:55 Sodium Chloride 0.9 % 10 Ml Syringe IV-PUSH 07/25/24 05:59 Not Given QSHIFT [facility] A&P - Hospitalist Assessment/Plan (1) Sepsis: (2) COPD exacerbation: (3) Acute kidney failure: (4) Urinary retention: (5) Type 2 WA (myocardial infarction): (6) Smoker: (7) Sleep apnea: (8) Hypothyroidism: (9) Hyperlipidemia: Plan Sepsis Acute cystitis Etiology appears to be UTI versus respiratory infection -Start IV ceftriaxone ?She has been afebrile since admission -Follow-up urine, blood cultures COPD exacerbation Acute on chronic hypoxic respiratory failure -IV Solu-Medrol -Supplemental O2 as needed -DuoNebs scheduled -Vp Site on smoking cessation Troponin elevation ?Discontinue heparin GTT, troponin elevation likely secondary to sepsis and demand ischemia -Check echocardiogram -Consult cardiology for their assessment Urinary retention Found upon admission to the medical floor. Hanson catheter placed -Maintain Hanson for now, plan for trial of void tomorrow CODE STATUS: Full code Documented By: Jaylan Child DO 07/26/23 1234 Signed By: <Electronically signed by Jaylan Child DO> 07/26/23 1237 [facility] Work Phone: 1(955) 706-717305-21-2024 History and physical note Author Mejia Aaron [facility] July 26, 2023 8:13am Note Date/Time July 26, 2023 7:44a m [facility] [address] [place] [address] Hospitalist H&P Signed Patient: Conchis Charles MR#: [id number] 826 : 1955 Acct:[id number] Age/Sex: 68 / F Adm Date: 4 Loc: Room: [address] [place] [address] Type: ADM IN Attending Dr: Jaylan Child DO Copies to: DO Mejia Monzon MD Shawn J Warner, ~ HPI DATE OF EXAMINATION: 07/26/23 CHIEF COMPLAINT: Shortness of breath HISTORY OF PRESENT ILLNESS: Ms. Charles is a 76-year-old female with PMH of COPD, tobacco abuse, DM type II, HTN, peripheral neuropathy, cognitive impairment at baseline who presents to theemergency department with shortness of breath x 1 week. History obtained largely via physician and nursing signout, given patient unable to appropriatelyanswer questions on my assessment at bedside. Patient normally wears 2 L nasal cannula oxygen at home, but has been increasing it to 4 L, but patient was still short of breath. She has been having somewhat more productive cough as well. Patient presented in respiratory distress. Lab work was noteworthy for UMM with creatinine of 1.8 from previous 1.2, troponin elevation from 68 up to 109.7. Patient was recommended for hospitalization per ED attending. Patient did spike temperature of up to 103.1 in the ED. She was started on IV ceftriaxone. Case was discussed between myself and ED attending and patient wasadmitted to hospitalist service for further management. Upon arrival to the progressive care unit, bladder scan performed and patient had greater than 1 L of urine present in the bladder upon Hanson insertion. Review of Systems Review of Systems Review of systems: 10 point ROS reviewed and is negative except for that which is noted above in [facility] Medical History (Updated 07/26/23 @ 08:06 by Mejia Aaron MD) Rupture Achilles tendon both feet Feeling of incomplete bladder emptying Neuropathy Diabetes COPD (chronic obstructive pulmonary disease) Surgical History Status post right foot surgery Status post laser cataract surgery of both eyes History of hip surgery H/O thyroidectomy H/O: hysterectomy Family History Father Pneumonia Grandparent Liver disease Legacy FamHx Relation: Maternal Grand Father Legacy FamHx Relation: Maternal Grand Father Grandparent Cancer Legacy FamHx Relation: Maternal Grand Mother; Legacy FamHx Problem: Diagnosed with Cancer Legacy FamHx Relation: Maternal Grand Mother Grandparent Myocardial infarction Legacy FamHx Relation: Paternal Grand Father Legacy FamHx Relation: Paternal Grand Father Heart disease Legacy FamHx Relation: Paternal Grand Father Grandparent Legacy FamHx Relation: Paternal Grand Mother Diabetes Legacy FamHx Relation: Paternal Grand Mother Grandparent Cancer Legacy FamHx Relation: Maternal Grand Mother Grandparent Diabetes Legacy FamHx Relation: Paternal Grand Mother Mother Cancer Legacy FamHx Problem: Diagnosed with Cancer Social History Smoking Status: Current every day smoker Tobacco Type: cigarettes Substance Use Type: None Substance Abuse Comment: denies illegal drug use. 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 and Allergies Allergies Penicillins Allergy (Unknown, Verified 07/25/23 21:44) Unknown Reaction sulfamethoxazole Allergy (Unknown, Verified 07/25/23 21:44) hives Home Medications Oxygen 06/24/23 [History Confirmed 06/24/23] albuterol sulfate 2.5 mg/3 mL (0.083 %) solution for nebulization mg inhalation 06/24/23 [History Confirmed 06/24/23] albuterol sulfate 90 mcg/actuation aerosol inhaler 1 puff inhalation Q4HR 06/24/23 [History Confirmed 06/24/23] albuterol sulfate 90 mcg/actuation aerosol inhaler (ProAir HFA) 1 inh [id number] 06/24/23 [History Confirmed 06/24/23] alpha lipoic acid 200 mg capsule mg PO 06/24/23 [History Confirmed 06/24/23] aspirin 81 mg chewable tablet 1 tab PO DAILY 06/24/23 [History Confirmed 06/24/23] atorvastatin 40 mg tablet 40 mg PO DAILY 06/24/23 [History Confirmed 07/26/23] blood sugar diagnostic (Blood Glucose Test strips) 06/24/23 [History Confirmed 06/24/23] calcium carbonate 600 mg-vitamin D3 5 mcg (200 unit) tablet 1 tab PO BID 06/24/23 [History Confirmed 06/24/23] cetirizine 10 mg tablet (Zyrtec) 10 mg PO DAILY 06/24/23 [History Confirmed 06/24/23] cholecalciferol (vitamin D3) 25 mcg (1,000 unit) capsule 1,000 unit PO DAILY 06/24/23 [History Confirmed 06/24/23] cyclobenzaprine 10 mg tablet 10 mg PO QHS 06/24/23 [History Confirmed 06/24/23] dextromethorphan-guaifenesin 30 mg-600 mg tablet extended [id number] hr tab PO 06/24/23 [History Confirmed 06/24/23] furosemide 40 mg tablet 40 mg PO BID 06/24/23 [History Confirmed 07/26/23] hydrocodone-homatropine 5 mg-1.5 mg/5 mL oral syrup 5 ml PO Q6HR 06/24/23 [History Confirmed 06/24/23] levothyroxine 150 mcg tablet 150 mcg PO DAILY 06/24/23 [History Confirmed 07/26/23] lisinopril 5 mg tablet 5 mg PO DAILY 06/24/23 [History Confirmed 07/26/23] nebulizer accessories (Adult Aerosol Mask) 06/24/23 [History Confirmed 06/24/23] omega-3 fatty acids 1,000 mg capsule 1,000 mg PO DAILY 06/24/23 [History Confirmed 06/24/23] oxcarbazepine 300 mg tablet (Trileptal) 300 mg PO 06/24/23 [History Confirmed 06/24/23] potassium chloride 20 mEq tablet,extended release 20 meq PO BID 06/24/23 [History Confirmed 06/24/23] pregabalin 200 mg capsule 200 mg PO TID 06/24/23 [History Confirmed 07/26/23] ropinirole 1 mg tablet 1 mg PO DAILY 06/24/23 [History Confirmed 06/24/23] saliva substitute combo no.9 (Biotene Dry Mouth Oral Rinse mouthwash) 15 ml mucous membrane BID-QID PRN 06/24/23 [History Confirmed 06/24/23] umeclidinium 62.5 mcg-vilanterol 25 mcg/actuation powdr for inhalation (Anoro Ellipta) 1 inh inhalation DAILY 06/24/23 [History Confirmed 07/26/23] amantadine HCl 100 mg tablet 100 mg PO DAILY 07/26/23 [History Confirmed 07/26/23] levetiracetam 250 mg tablet mg PO 07/26/23 [History] Exam Physical Exam Vital Signs: Temp Pulse Resp BP Pulse Ox O2 Del Method O2 Flow Rate 97.5 F L 49 L 17 96/61 L 93 L Nasal Cannula 2 07/26/23 07:40 07/26/23 07:40 07/26/23 07:40 07/26/23 07:40 07/26/23 07:40 07/26/23 07:40 07/26/23 07:40 Narrative: Constitutional: Elderly WF, resting in bed, mainly snoring during my assessment HEENT: Dry mucous membranes, neck supple Cardiovascular: RRR, no M/R/G Respiratory: Diminished throughout GI: Soft, NTND, NABS : Deferred Extremities: No clubbing, cyanosis or edema Neuro: AAO x 0. Patient is significantly sleepy during my assessment and cannot awaken easily to follow commands Skin: No rashes or lesions noted upon anterior inspection Psych: Difficult to arouse and sleepy during my assessment Results - Hospitalist H&P Lab Results Labs: Laboratory Last Values Corrected WBC 6.8 X10E3/uL (3.8-11.6) 07/26/23 02:02 Uncorrected WBC Count 6.8 x10E3/uL (3.8-11.6) 07/26/23 02:02 RBC 4.17 X10E6/uL (3.60-5.00) 07/26/23 02:02 Hgb 12.4 g/dL (11.8-15.4) 07/26/23 02:02 Hct 36.9 % (34.0-46.4) 07/26/23 02:02 MCV 88.6 fl (80-100) 07/26/23 02:02 MCH 29.8 pg (24.7-34.3) 07/26/23 02:02 MCHC 33.6 g/dL (32.0-35.0) 07/26/23 02:02 RDW 13.7 % (11.9-15.3) 07/26/23 02:02 Plt Count 105 x10E3/uL (150-450) L 07/26/23 02:02 MPV 8.9 fl (6.3-10.7) 07/26/23 02:02 Neut % (Auto) 92.5 % (.) 07/26/23 02:02 Lymph % (Auto) 3.2 % (.) 07/26/23 02:02 Toole % (Auto) 3.2 % (.) 07/26/23 02:02 Eos % (Auto) 0.0 % (.) 07/26/23 02:02 Baso % (Auto) 1.1 % (.) 07/26/23 02:02 Nucleat RBC Rel Count 0.1 /100 WBC (0-0.5) 07/26/23 02:02 Neut # (Auto) 6.3 x10E3/uL (1.8-7.7) 07/26/23 02:02 Lymph # (Auto) 0.2 x10E3/uL (1.00-4.8) L 07/26/23 02:02 Toole # (Auto) 0.2 x10E3/uL (0.0-0.8) 07/26/23 02:02 Eos # (Auto) 0.0 x10E3/uL (0.0-0.45) 07/26/23 02:02 Baso # (Auto) 0.1 x10E3/uL (0.0-0.2) 07/26/23 02:02 Monocyte Dist Width Test not performed % (0.00-20.00) 07/26/23 02:02 PT 11.4 Seconds (9.0-12.9) 07/26/23 02:02 INR 1.0 07/26/23 02:02 APTT 29.6 Seconds (25.1-36.5) 07/26/23 02:02 Sample Site Venous 07/25/23 22:48 VBG pH 7.48 (7.32-7.43) H 07/25/23 22:48 VBG pCO2 37.7 mmHg (38.0-50.0) L 07/25/23 22:48 VBG pO2 92.0 mmHg (35.0-45.0) H* 07/25/23 22:48 VBG HCO3 27.7 mmol/L (23.0-29.0) 07/25/23 22:48 VBG Total CO2 28.9 mmol/L (24.0-29.0) 07/25/23 22:48 VBG O2 Saturation 97.4 % (73.0-76.0) H* 07/25/23 22:48 VBG O2 Content 8.4 mmol/L (6.6-9.7) 07/25/23 22:48 VBG Base Excess 4.2 mmol/L (-3.0-3.0) H 07/25/23 22:48 FiO2 32 % 07/25/23 22:48 Critical Value 07/25/23 22:48 PHA Creatinine Clear 27.22 07/25/23 21:54 Sodium 136 mmol/L (136-145) 07/25/23 21:54 Potassium 4.7 mmol/L (3.5-5.1) 07/25/23 21:54 Chloride 96 mmol/L (98-107) L 07/25/23 21:54 Carbon Dioxide 32.3 mmol/L (21.0-31.0) H 07/25/23 21:54 Anion Gap 12.4 mEq/L (6.0-15.0) 07/25/23 21:54 BUN 38 mg/dL (7-25) H 07/25/23 21:54 Creatinine 1.80 mg/dL (0.60-1.20) H 07/25/23 21:54 Est GFR (CKD-EPI) 29.936 mL/Min 07/25/23 21:54 Glucose 146 mg/dL (70-100) H 07/25/23 21:54 Lactic Acid 1.0 mmol/L (0.5-2.2) 07/25/23 23:02 Calcium 8.9 mg/dL (8.6-10.3) 07/25/23 21:54 Troponin I High Sens 109.7 pg/mL (0.0-15.0) H* 07/26/23 00:25 Urine Color Yellow (Yellow) 07/26/23 04:29 Urine Appearance Clear (Clear) 07/26/23 04:29 Urine pH 5.5 (5.0-9.0) 07/26/23 04:29 Ur Specific [place] 1.014 (1.001-1.030) 07/26/23 04:29 Urine Protein Trace mg/dL (Negative) H 07/26/23 04:29 Urine Glucose (UA) Normal mg/dL (Normal) 07/26/23 04:29 Urine Ketones Negative (Negative) 07/26/23 04:29 Urine Occult Blood Negative (Negative) 07/26/23 04:29 Urine Nitrite Positive (Negative) H 07/26/23 04:29 Urine Bilirubin Negative (Negative) 07/26/23 04:29 Urine Urobilinogen Normal mg/dL (Normal) 07/26/23 04:29 Ur Leukocyte Esterase 3+ (Negative) H 07/26/23 04:29 Urine RBC 1-2 /HPF (0-4) 07/26/23 04:29 Urine WBC 20-49 /HPF (0-4) H 07/26/23 04:29 Ur Squamous Epith Cells None seen /HPF (0-2) 07/26/23 04:29 Urine Bacteria 3+ /HPF (None Seen) H 07/26/23 04:29 Hyaline Casts 0-8 /LPF (0-8) 07/26/23 04:29 SARS-CoV-2 Rap RNA(RT-PCR) Negative (Negative) 07/25/23 21:50 Microbiology Results Micro: Microbiology - Results from entire visit 07/25/23 21:50 Nasopharyngeal SARS-CoV-2, Influenza & RSV (PCR) - Final ABG Interpretation ABG results: 07/25/23 22:48 VBG pH 7.48 H VBG pCO2 37.7 L VBG pO2 92.0 H* VBG HCO3 27.7 VBG Total CO2 28.9 VBG O2 Saturation 97.4 H* VBG Base Excess 4.2 H Assessment & Plan Assessment/Plan (1) Sepsis: (2) COPD exacerbation: (3) Acute kidney failure: (4) Urinary retention: (5) Type 2 WA (myocardial infarction): (6) Smoker: (7) Sleep apnea: (8) Hypothyroidism: (9) Hyperlipidemia: Plan Sepsis Acute cystitis Etiology appears to be UTI versus respiratory infection -Start IV ceftriaxone and azithromycin -Monitor fever curve, WBC, other sepsis parameters -Follow-up urine, blood cultures COPD exacerbation Acute on chronic hypoxic respiratory failure -IV Solu-Medrol -Supplemental O2 as needed -Janie scheduled -Vp Site on smoking cessation Troponin elevation ED staff concern for NSTEMI and placed on heparin drip. May be more of demand ischemia related to patient's sepsis and acute on chronic respiratory issues -Check echocardiogram -Holding on IV diuretics at this time -Consult cardiology for their assessment -Maintaining heparin drip at this time Urinary retention Found upon admission to the medical floor. Hanson catheter placed -Maintain Hanson for now CODE STATUS: Full code IP vs OBS Justification Based on differential dx, clinical care plan, and risk of adverse events, if untreated, in my clinical judgement this patient requires an acute care setting as: INPATIENT because of an expectation of an over 2 midnight stay. Estimated length of stay (# of days): 3 Documented By: Mejia Aaron MD 4 [id number] Signed By: <Electronically signed by Mejia Aaron MD> 07/26/23 0813 [facility] Work Phone: 1(357) 872-610312-28-2023 Evaluation note* Encounter Date Diagnosis Assessment Notes Treatment Notes Treatment Clinical Notes Feb, COPD exacerbation (ICD-10 - J44.1) [facility] Other 12-28-2023 Evaluation note* Encounter Date Diagnosis Assessment Notes Treatment Notes Treatment Clinical Notes Feb, Hypertension (ICD-10 - I10) Labs reviewed with patient, continue with the above medications. Feb, Hypothyroidism (ICD-10 - E03.9) Feb, Other hyperlipidemia (ICD-10 - E78.49) Feb, COPD exacerbation (ICD-10 - J44.1) Oxygen saturation at 89% at rest on 2L. She states that it does drop into the low 80's and 70's when she is ambulating. She complains of severe fatigue. She appears cyanotic. Current COPD treatment includes her oxygen, Anoro, albuterol nebs and albuterol HFA. Wheezing auscultated today and she does have a cough however that is not . Discussed the severity of her lung disease as she appears to be more and more cyanotic every visit. I stongly encouraged smoking cessation. I also would like her to start doing breathing treatments up to 2-3 times a day, she states that she has not been doing these on a regular basis only occasionally. She admits to increased confusion intermittently. Spouse states that he will find her at their kitchen table asleep without her 02, she will be confused and mumbling, 02 will be in the 70's. Will arrange for her to use the mask for her nebulizer vs tubing as she states that she can inhale the treatment better. To be sure she is getting the most out of her treatments I did provide her with a new machine today as hers is very old. Again strongly reiterated smoking cessation, increase breathing treatments as discussed and offered referral to rabbet operator. She declined the referral. Feb, Diarrhea, unspecified type (ICD-10 - R19.7) Encouraged patient to call if persists. Feb, Fall, initial encounter (ICD-10 - W19.XXXA) Large area of echymosis noted all down her left leg. She states that she was walking with her walker, tripped and her legs turned to jello . Feb, Traumatic ecchymosis of multiple sites of left lower extremity, initial encounter (ICD-10 - S80.12XA) She does have stages of bruising on her left leg. Range of motion is good, she is able to bear weight and walk but does spend most of her time in her wheelchair. Feb, Diabetes (ICD-10 - E11.9) Last a1c was 5.5% however patient states that her sugars have increased to 160's. A1c today was 5.3%. Has been off the metformin for months. She is to remain off of the metformin, however still strongly encouraged her to continue monitoring her blood sugars daily. Feb, Renal insufficiency (ICD-10 - N28.9) Encouraged patient to increase her water intake. She states that she drinks one bottle of water a day therefore encouraged her to double that. Feb, Oxygen dependent (ICD-10 - Z99.81) Encouraged patient to continue wearing o2 at all times. Offered referral to rabbet operator however she refused. Feb, Cigarette nicotine dependence with nicotine-induced disorder (ICD-10 - F17.219) Feb, Weakness (ICD-10 - R53.1) Patient encouraged to continue working with physical therapy. She admits that she does not do the exercises that are recommended, therefore strongly encouraged her to do these on the days that therapist is not there. Feb, Vitamin D deficiency (ICD-10 - E55.9) Lab ordered Feb, Hypoxia (ICD-10 - R09.02) Discussed at length with patient that her weakness and episodes of confusion are most definitely multifactorial. Her neurological condition, medications and hypoxia all can affect her mental status. Feb, Neuropathy (ICD-10 - G62.9) Has scheduled follow up with neurolgist in March. Long standing history of diabetic neuropathy. Currently blood glucose levels are controlled and A1c is stable. Feb, Seizure disorder (ICD-10 - G40.909) Follows with neurologist. [facility] Other 12-19-2023 Evaluation note* Encounter Date Diagnosis Assessment Notes Treatment Notes Treatment Clinical Notes Feb, Chronic obstructive pulmonary disease, unspecified COPD type (ICD-10 - J44.9) [facility] Other 12-12-2023 Evaluation note* Encounter Date Diagnosis Assessment Notes Treatment Notes Treatment Clinical Notes Feb, Hypertension (ICD-10 - I10) CancelRx Response got Denied on 2023-02-15 16:12:39 for 'Potassium Chloride ER 20 MEQ Tablet Extended Release'Pharmacy Notes: Prescription not found. Contact Pharmacy by other means [facility] [place] Other 10-30-2023 Evaluation note* Encounter Date Diagnosis Assessment Notes Treatment Notes Treatment Clinical Notes Dec, Hypothyroidism (ICD-10 - E03.9) [facility] [place] Other 06-28-2023 Evaluation note* Encounter Date Diagnosis Assessment Notes Treatment Notes Treatment Clinical Notes Aug, Neuropathy (ICD-10 - G62.9) [facility] [place] Other [facility] Progress note Author José Luis Fuentes [facility] August 30, 2022 1:33pm Note Date/Time August 30, 2022 1:34 pm [facility] [address] [place] [address] Hospitalist Progress Note Signed Patient: Conchis Charles MR#: [id number] 826 : 1955 Acct:[id number] Age/Sex: 67 / F Adm Date: 3 Loc: Room: [address] [place] [address] Type: ADM IN Attending Dr: José Luis Fuentes MD Copies to: ~ Date of Service: 08/30/2022 Subjective Subjective Narrative: Patient is resting in bed. She has no complaints. She had a little bit of chest pain earlier this morning. None at the moment. Lungs diminished bilaterally. No wheezing. Heart is regular Abdomen soft Neurological nonfocal Assessment and plan: 1. Chest pain rule out ACS Patient was seen by cardiology, will undergo coronary angiogram today. Discussed at length the importance of tobacco cessation. Patient stated that she was held by some purple pill in the past. We will attempt to identify whether this was Chantix or some other drug. Will prescribe at time of discharge along with nicotine patches. Chronic problems COPD Chronic neuropathy Hypertension Diabetes Exam Physical Exam Vital Signs: Temp Pulse Resp BP Pulse Ox O2 Del Method O2 Flow Rate 97.8 F 50 L 17 94/52 L 99 Nasal Cannula 2 08/30/22 11:49 08/30/22 11:49 08/30/22 11:49 08/30/22 11:49 08/30/22 11:49 08/30/22 11:49 08/30/22 11:49 Objective Lab Results 08/28/22 14:08 08/28/22 14:08 Microbiology Results Microbiology 08/29/22 19:00 Nasal SARS Antigen (LFIA) - Final Meds Allergies and Active Meds Allergies Penicillins Allergy (Verified 08/28/22 12:22) Unknown Reaction Active Meds: Active Medications Generic Name Dose Route Start Last Admin Trade Name Chitra PRN Reason Stop Dose Admin Albuterol 1.25 mg 08/28/22 18:39 Albuterol Neb 2.5 Mg/3 Ml Vial.Neb INHALATION 08/28/23 18:38 Q4H PRN shortness of breath or wheezing Albuterol 1 puff 08/28/22 18:39 Albuterol Hfa 60 Puff/8 Gram Inhaler INHALATION 08/28/23 18:38 Q4H PRN shortness of breath Albuterol/Ipratropium 3 ml 08/28/22 20:00 08/30/22 11:42 Ipratropium/Albuterol 0.5-3 Mg 3 Ml Ampul.Neb INHALATION 08/28/23 19:59 3 ml QID.RESP ANUSHA Administration Aspirin 81 mg 08/29/22 09:00 08/30/22 06:35 Aspirin 81 Mg Tab.Chew PO 08/29/23 08:59 81 mg DAILY ANUSHA Administration Atorvastatin Calcium 5 mg 08/29/22 09:00 08/29/22 08:48 Atorvastatin 10 Mg Tablet PO 08/29/23 08:59 5 mg DAILY ANUSHA Administration Calcium Carbonate 500 mg 08/28/22 21:00 08/29/22 21:31 Calcium Carbonate 500 Mg Tablet PO 08/28/23 20:59 500 mg BID ANUSHA Administration Enoxaparin Sodium 40 mg 08/29/22 10:00 08/29/22 08:49 Enoxaparin 40 Mg/0.4 Ml Syringe SUBCUT 08/29/23 09:59 40 mg DAILY@10 ANUSHA Administration Fish Oil 1,000 mg 08/29/22 09:00 08/29/22 08:48 [place]cho-3/Fish Oil 1,000 Mg Capsule PO 08/29/23 08:59 1,000 mg DAILY ANUSHA Administration Furosemide 80 mg 08/29/22 09:00 08/29/22 08:49 Furosemide 80 Mg Tablet PO 08/29/23 08:59 80 mg DAILY ANUSHA Administration Levothyroxine Sodium 150 mcg 08/29/22 06:30 08/30/22 06:35 Levothyroxine 150 Mcg Tablet PO 08/29/23 06:29 150 mcg DAILY@0630 ANUSHA Administration Lisinopril 5 mg 08/28/22 22:00 08/29/22 21:31 Lisinopril 5 Mg Tablet PO 08/28/23 21:59 5 mg HS ANUSHA Administration Loratadine 10 mg 08/29/22 09:00 08/30/22 06:34 Loratadine 10 Mg Tablet PO 08/29/23 08:59 10 mg DAILY ANUSHA Administration Miscellaneous Information 1 each 08/29/22 16:12 Consult To Pharmacy MISCELLANE 08/29/23 16:11 .JESÚS BRASHER.Pharmacy Consult Protocol Oxcarbazepine 450 mg 08/28/22 22:00 08/30/22 06:35 Oxcarbazepine 150 Mg Tablet PO 08/28/23 21:59 450 mg TID ANUSHA Administration Potassium Chloride 20 meq 08/28/22 21:00 08/30/22 06:35 Potassium Chloride Er 20 Meq Tab.Er.Prt PO 08/28/23 20:59 20 meq BID ANUSHA Administration Potassium Chloride 40 meq 08/29/22 16:12 Potassium Chloride Er 20 Meq Tab.Er.Prt PO STAT PRN Hypokalemia Pregabalin 100 mg 08/28/22 22:00 08/30/22 06:35 Pregabalin 100 Mg Capsule PO 08/28/23 21:59 100 mg TID ANUSHA Administration Ropinirole HCl 1 mg 08/28/22 22:00 08/29/22 21:31 Ropinirole 0.5 Mg Tablet PO 08/28/23 21:59 1 mg HS ANUSHA Administration Sodium Chloride 0 ml 08/28/22 12:22 Sodium Chloride 0.9 % 10 Ml Syringe IV-PUSH 08/28/23 12:21 PRN PRN Flush Sodium Chloride 0 ml 08/29/22 16:12 Sodium Chloride 0.9 % 10 Ml Syringe IV-PUSH 08/29/23 16:11 PRN PRN Flush Vitamin D 125 mcg 08/29/22 09:00 08/29/22 08:49 Cholecalciferol 125 Mcg (5,000 Units) Capsule PO 08/29/23 08:59 125 mcg DAILY ANUSHA Administration Documented By: José Luis Fuentes MD 08/30/22 1331 Signed By: <Electronically signed by José Luis Fuentes MD> 08/30/223 [facility] Work Phone: 1(264) 350-911906-26-2023 Evaluation note* Encounter Date Diagnosis Assessment Notes Treatment Notes Treatment Clinical Notes Aug, Neuropathy (ICD-10 - G62.9) [facility] Other 06-26-2023 Hospital Discharge instructionsAmbulatory Orders* Initiate Home Health Time Frame: 08/30/22, Location: Determined By Patient Additional Instructions Continue use of oxygen as per chronic orders. PT to eval and treat. DISCHARGE INSTRUCTIONS FOR CARDIAC CEMENT FITTINGS MAKER PHONE NUMBER OF YOUR PHYSICIAN: [phone] PROCEDURE: Heart Cath The following instructions have been prepared to help you care for yourself, or be cared for upon your return home. 1. You were given conscious sedation. Do not operate a vehicle, power tools, make important decisions, or drink alcohol for 24 hours. You might be drowsy or light headed. Return to the Emergency Room if you have trouble breathing, walking or nausea and vomiting. 2. FOR BLEEDING: Apply continuous pressure to the site and call 911. 3. Operative Site Care: Keep the dressing clean and dry. You may change the dressing only if soiled or wet. You may remove the dressing the following morning. You may wash over the puncture site in the shower. If the puncture site is at the wrist no soaking for 3 days. Some bruising or slight swelling may be present. -Signs of infection are redness, warmth, swelling, getting more sore, colored drainage, fever or chills. -Should the arm or leg become cold, numb, blue or white, call the storage architect immediately. 4. ACTIVITY: You are advised to go directly home from the hospital. Restrict your activities for the rest of the day. Resume light or normal activities tomorrow. Do not engage in any activity that will stress the puncture site. Avoid heavy lifting (over 15 lbs.), straining or bending at the catheter site for 48 hours after discharge. If the puncture site is at the wrist do not manipulate wrist for 24 hours and no lifting more than 3 lbs for 3 days. 5. DIET:You may eat your regular diet when you desire. 6. MEDICATIONS: Resume your daily prescription schedule. Prescriptions may be sent with you if needed. Use as directed. When taking pain medications, you may experience dizziness or drowsiness. Do not drink alcohol or drive when taking pain medications. 7. If you should experience episodes of angina e.g. chest discomfort, heaviness, tightness, pressure, burning, with or without radiation to the neck, jaws, arms, or back- Use 1 Nitrostat under your tongue every 5-10 minutes, and up to 3 tablets. If no relief- Call 911 and go to the nearest Emergency Room. -Notify the office for recurrent angina, chest pain or other concerns. You may NOT drive yourself home! Follow the medication instructions provided on your discharge. If the dosages and instructions on this sheet differ from the dosage and instructions on the bottle, follow the instructions on the bottle. [facility] is not responsible for incorrect prescription information provided by the patient during their visit. Do not stop your medications without consulting your health care provider. Please take the list with you to your next doctor's appointment.[facility] Work Phone: [phone]) 936-253706-25-2023 Consult note Author Ferdinand Norris [facility] August 29, 2022 4:12pm Note Date/Time August 29, 2022 4:12 pm [facility] [address] [place] [address] Cardiology Consult Note Signed Patient: Conchis Charles MR#: [id number] 826 : 1955 Acct:[id number] Age/Sex: 67 / F Adm Date: 3 Loc: Room: [address] [place] [address] Type: ADM INOo Attending Dr: Lucian Bruno DO Copies to: DO Lucian Monzon DO William Patrick McGuinn, MD~ Cardiology HPI History of Present Illness Consult Date: 08/29/22 Reason for Consult: Abnormal EKG, troponin elevation HPI: Ms. Charles is a 67 year old female seen for the above She is individual came to the hospital for noncardiac complaints. They revolve around pain management and peripheral neuropathy. She was found, though, have significant ST-T wave changes suggesting inferolateral ischemia. Concomitant with that there were troponin elevations. The patient had an angiogram about 17 or 18 years ago. At that time she did have single-vessel coronary disease. Over the ensuing 18 years she continues tosmoke and was not seen by a storage architect on a regular basis. Risk factor management was suboptimal. She is significantly limited by her neuropathy. She can only walk from room to room and even that is with difficulty. Because of this she does not develop significant aerobic workload to precipitate reliable cardiac symptomatology. She does acknowledge shortness of breath with mild exertion which she thought was predominantly due to COPD She has a history of tobacco use, hyperlipidemia, diabetes, but no elevated blood pressure. Family history is vague. Review of Systems Review of Systems All other systems reviewed & are negative unless noted below or in HPI Constitutional Constitutional: Reports system reviewed and no additional complaints, except as documented Eyes Eyes: Reports system reviewed and no additional complaints, except as documented ENT Ears, Nose, Mouth, and Throat: Reports system reviewed and no additional complaints, except as documented Cardiovascular Cardiovascular: Reports as per HPI Respiratory Respiratory: Reports system reviewed and no additional complaints, except as documented Gastrointestinal Gastrointestinal: Reports system reviewed and no additional complaints, except as documented Genitourinary Genitourinary: Reports system reviewed and no additional complaints, except as documented Musculoskeletal Musculoskeletal: Reports system reviewed and no additional complaints, except asdocumented Integumentary/Breasts Skin/Breast: Reports system reviewed and no additional complaints, except as documented Neurologic Neurologic: Reports system reviewed and no additional complaints, except as documented Psychiatric Psychiatric: Reports system reviewed and no additional complaints, except as documented Endocrine Endocrine: Reports system reviewed and no additional complaints, except as documented Hematologic/Lymphatic Hematologic/Lymphatic: Reports system reviewed and no additional complaints, except as documented Allergic/Immunologic Allergic/Immunologic: Reports system reviewed and no additional complaints, except as documented PMFSH Vaccinated for COVID-19?: Yes Medical History (Updated 08/29/22 @ 16:11 by Ferdinand Norris MD) COPD (chronic obstructive pulmonary disease) Diabetes Neuropathy Surgical History H/O thyroidectomy H/O: hysterectomy History of hip surgery Social History Smoking Status: Current every day smoker Tobacco Type: cigars Substance Use Type: None Substance Abuse Comment: denies illegal drug use. 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 and Allergies Allergies Penicillins Allergy (Verified 08/28/22 12:22) Unknown Reaction Home Medications aspirin 81 mg chewable tablet 81 mg PO DAILY 07/17/17 [History Confirmed 08/28/22] calcium carbonate 600 mg calcium (1,500 mg) tablet (Calcium) 600 mg PO BID 07/17/17 [History Confirmed 08/28/22] cetirizine 10 mg capsule (Zyrtec) 10 mg PO DAILY 07/17/17 [History Confirmed 08/28/22] fish [id number] C-vit E 2,000 mg-650 mg-12 mg/2.5 g emulsion packt 1 tab PO DAILY 07/17/17 [History Confirmed 08/28/22] furosemide 40 mg tablet (Lasix) 80 mg PO DAILY 07/17/17 [History Confirmed 08/28/22] potassium chloride 20 mEq tablet,extended release(part/cryst) 20 meq PO BID 07/17/17 [History Confirmed 08/28/22] ropinirole 1 mg tablet 1 mg PO HS 07/17/17 [History Confirmed 08/28/22] albuterol sulfate 2.5 mg/3 mL (0.083 %) solution for nebulization 1.25 mg (1.5 mL) inhalation Q4H PRN shortness of breath or wheezing #1 mL 07/19/17 [Rx Confirmed 08/28/22] cholecalciferol (vitamin D3) 125 mcg (5,000 unit) tablet (Vitamin D3) 5,000 unitPO DAILY ##0 07/19/17 [Rx Confirmed 08/28/22] albuterol sulfate 90 mcg/actuation aerosol inhaler (Ventolin HFA) 1 puff inhalation Q4H PRN shortness of breath 08/28/22 [History Confirmed 08/28/22] levothyroxine 150 mcg tablet 150 mcg PO DAILY 08/28/22 [History Confirmed 08/28/22] lisinopril 5 mg tablet 5 mg PO HS 08/28/22 [History Confirmed 08/28/22] lovastatin 20 mg tablet 20 mg PO DAILY 08/28/22 [History Confirmed 08/28/22] oxcarbazepine 300 mg tablet 450 mg PO TID 08/28/22 [History Confirmed 08/28/22] pregabalin 200 mg capsule 200 mg PO TID 08/28/22 [History Confirmed 08/28/22] umeclidinium 62.5 mcg-vilanterol 25 mcg/actuation powdr for inhalation (Anoro Ellipta) 1 inh inhalation DIRECTED 08/28/22 [History Confirmed 08/28/22] Exam Physical Exam Vital Signs: Temp Pulse Resp BP Pulse Ox O2 Del Method O2 Flow Rate 97.6 F 54 L 16 100/56 L 96 Nasal Cannula 2 08/29/22 08:00 08/29/22 12:10 08/29/22 12:10 08/29/22 12:00 08/29/22 12:00 08/29/22 12:00 08/29/22 12:00 HEENT Head: normal to inspection Ears: hearing grossly normal bilaterally Nose: external nose normal and nares normal Face and sinus: normal facial exam Mouth: oral mucosae normal and tongue normal Eyes Conjunctivae: conjunctivae normal Sclera: sclerae normal Neck Neck: normal visual inspection Carotids: normal carotid upstroke Lymphatic: no lymphadenopathy noted Chest Chest palpation & inspection: normal inspection of the chest Resp Effort & Inspection: normal respiratory effort Auscultation: clear to auscultation bilaterally Cardio Rate: regular rate Rhythm: regular rhythm Heart Sounds: S1 normal and S2 normal GI Inspection: normal to inspection Palpation: soft Skin General: no rashes or lesions noted Neuro General: patient alert, patient awake and patient oriented x3 Cognition: normal cognition Motor: muscle tone normal throughout Sensory Exam: no sensory deficits noted Results Labs 08/28/22 14:08 08/28/22 14:08 Lab results: Cardiac Enzymes 08/28/22 08/28/22 08/29/22 Range/Units 17:01 23:25 07:49 Total Creatine Kinase 92 87 73 (30-223) U/L Intake and Output 08/29/22 08/29/22 08/29/22 07:59 15:59 23:59 Intake Total 700 / 1200 500 / 1200 Balance 700 / 1200 500 / 1200 Intake: Oral 700 / 1200 500 / 1200 Other: # Unmeasured Voids 1 1 Weight 65.8 kg Date of Last Bowel Movement 08/27/22 08/27/22 Patient Weight 08/29/22 23:59 Weight 65.8 kg A&P - Cardiology (1) Coronary artery disease: Assessment/Problem Details: Patient had proven coronary disease and angiogram about 17 or 18 years ago. There is significant potential for progression particularly in view of the fact she has had poor risk factor modification. Code(s): I25.10 - Atherosclerotic heart disease of [place] coronary artery without angina pectoris (2) Anginal equivalent: Assessment/Problem Details: An element of her dyspnea could in fact be anginal equivalent dyspnea. Because of this I believe further evaluation is warranted. Code(s): I20.8 - Other forms of angina pectoris (3) Elevated troponin: Assessment/Problem Details: Bone elevation suggest underlying ischemia. Code(s): R77.8 - Other specified abnormalities of plasma proteins (4) Abnormal EKG: Assessment/Problem Details: EKG is significantly changed from 2 years ago. She now has inferolateral changes suggestive of ischemia. Code(s): R94.31 - Abnormal electrocardiogram [ECG] [EKG] Plan N.p.o. after midnight except for meds. We will anticipate and plan for cardiac catheterization Tuesday with Dr. Galdamez. Documented By: Ferdinand Norris MD [id number] Signed By: <Electronically signed by MD Ferdinand Norris> 08/29/22 9[address] [facility] Work Phone: 1(638) 523-919506-25-2023 Progress note Author Lucian Bruno [facility] August 29, 2022 2:42pm Note Date/Time August 29, 2022 2:42 pm [facility] [address] [place] [address] Hospitalist Progress Note Signed Patient: Conchis Charles MR#: [id number] 826 : 1955 Acct:[id number] Age/Sex: 67 / F Adm Date: 3 Loc: Room: [address] [place] [address] Type: ADM INOo Attending Dr: Lucian Bruno DO Copies to: ~ Date of Service: 08/29/2022 Subjective Subjective Narrative: I personally saw and examined the patient at the bedside this afternoon. She isalert and oriented x3 and remains on 2 L nasal cannula. Troponin levels have remained flat. Physical Examination: GENERAL APPEARANCE: Alert, up in bed AAOx3, frail newly female with, pulmonary cachexia apparent HEENT: NCAT, MMM NECK: Neck soft w/o masses, no JVD CARDIAC: Normal S1 and S2. No S3, S4 or murmurs. LUNGS: Clear to auscultation bilaterally. no wheeze/rhonchi/rales ABDOMEN: Positive bowel sounds. Soft, nontender. No guarding or signs of an acute abdomen MUSCULOSKELETAL: No joint erythema or tenderness. EXTREMITIES: No clubbing, cyanosis or edema PSYCHIATRIC: Appropriate mood and affect Assessment and plan: 1. Chest pain rule out ACS Patient's troponin levels remained low level elevated but not increasing. An EKG performed this afternoon when compared to yesterday's shows some continued Twave inversion in the anterior, inferior and lateral leads. This is somewhat changed in appearance from yesterday's EKG and that the depth of T wave inversions has improved. Echocardiogram could not be performed today and patient expresses significant concern regarding family history of CAD. She does report some exertional chest discomfort and tachycardia. Given the scenario we will keep the patient overnight, she will remain on telemetry and echocardiogramcan be performed tomorrow. We will have cardiology evaluate the patient prior to likely discharge. 2. Chronic neuropathy Resume the patient's home Trileptal and Lyrica 3. COPD Continue 2 L nasal cannula that she is on at baseline. Exam Physical Exam Vital Signs: Temp Pulse Resp BP Pulse Ox O2 Del Method O2 Flow Rate 97.6 F 54 L 16 100/56 L 96 Nasal Cannula 2 08/29/22 08:00 08/29/22 12:10 08/29/22 12:10 08/29/22 12:00 08/29/22 12:00 08/29/22 12:00 08/29/22 12:00 Objective Lab Results 08/28/22 14:08 08/28/22 14:08 Meds Allergies and Active Meds Allergies Penicillins Allergy (Verified 08/28/22 12:22) Unknown Reaction Active Meds: Active Medications Generic Name Dose Route Start Last Admin Trade Name Freq PRN Reason Stop Dose Admin Albuterol 1.25 mg 08/28/22 18:39 Albuterol Neb 2.5 Mg/3 Ml Vial.Neb INHALATION 08/28/23 18:38 Q4H PRN shortness of breath or wheezing Albuterol 1 puff 08/28/22 18:39 Albuterol Hfa 60 Puff/8 Gram Inhaler INHALATION 08/28/23 18:38 Q4H PRN shortness of breath Albuterol/Ipratropium 3 ml 08/28/22 20:00 08/29/22 12:11 Ipratropium/Albuterol 0.5-3 Mg 3 Ml Ampul.Neb INHALATION 08/28/23 19:59 3 ml QID.RESP ANUSHA Administration Aspirin 81 mg 08/29/22 09:00 08/29/22 08:49 Aspirin 81 Mg Tab.Chew PO 08/29/23 08:59 81 mg DAILY ANUSHA Administration Atorvastatin Calcium 5 mg 08/29/22 09:00 08/29/22 08:48 Atorvastatin 10 Mg Tablet PO 08/29/23 08:59 5 mg DAILY ANUSHA Administration Calcium Carbonate 500 mg 08/28/22 21:00 08/29/22 08:46 Calcium Carbonate 500 Mg Tablet PO 08/28/23 20:59 500 mg BID ANUSHA Administration Cyclobenzaprine HCl 10 mg 08/28/22 19:03 Cyclobenzaprine 10 Mg Tablet PO 08/28/23 19:02 DAILY PRN Sleep Enoxaparin Sodium 40 mg 08/29/22 10:00 08/29/22 08:49 Enoxaparin 40 Mg/0.4 Ml Syringe SUBCUT 08/29/23 09:59 40 mg DAILY@10 ANUSHA Administration Fish Oil 1,000 mg 08/29/22 09:00 08/29/22 08:48 [place]-3/Fish Oil 1,000 Mg Capsule PO 08/29/23 08:59 1,000 mg DAILY ANUSHA Administration Furosemide 80 mg 08/29/22 09:00 08/29/22 08:49 Furosemide 80 Mg Tablet PO 08/29/23 08:59 80 mg DAILY ANUSHA Administration Levothyroxine Sodium 150 mcg 08/29/22 06:30 08/29/22 05:45 Levothyroxine 150 Mcg Tablet PO 08/29/23 06:29 150 mcg DAILY@0630 ANUSHA Administration Lisinopril 5 mg 08/28/22 22:00 08/28/22 21:05 Lisinopril 5 Mg Tablet PO 08/28/23 21:59 5 mg HS ANUSHA Administration Loratadine 10 mg 08/29/22 09:00 08/29/22 08:49 Loratadine 10 Mg Tablet PO 08/29/23 08:59 10 mg DAILY ANUSHA Administration Oxcarbazepine 450 mg 08/28/22 22:00 08/29/22 13:55 Oxcarbazepine 150 Mg Tablet PO 08/28/23 21:59 450 mg TID ANUSHA Administration Potassium Chloride 20 meq 08/28/22 21:00 08/29/22 08:48 Potassium Chloride Er 20 Meq Tab.Er.Prt PO 08/28/23 20:59 20 meq BID ANUSHA Administration Pregabalin 100 mg 08/28/22 22:00 08/29/22 13:55 Pregabalin 100 Mg Capsule PO 08/28/23 21:59 100 mg TID ANUSHA Administration Ropinirole HCl 1 mg 08/28/22 22:00 08/28/22 21:06 Ropinirole 0.5 Mg Tablet PO 08/28/23 21:59 1 mg HS ANUSHA Administration Sodium Chloride 0 ml 08/28/22 12:22 Sodium Chloride 0.9 % 10 Ml Syringe IV-PUSH 08/28/23 12:21 PRN PRN Flush Vitamin D 125 mcg 08/29/22 09:00 08/29/22 08:49 Cholecalciferol 125 Mcg (5,000 Units) Capsule PO 08/29/23 08:59 125 mcg DAILY ANUSHA Administration Documented By: Lucian Bruno DO 08/29/22 14 34 Signed By: <Electronically signed by Lucian Bruno DO> 08/29/22 1442 [facility] Work Phone: [phone]) 392-914606-24-2023 History and physical note Author Lucian Bruno [facility] August 28, 2022 7:39pm Note Date/Time August 28, 2022 7:32 pm [facility] [address] [place] [address] Hospitalist H&P Signed Patient: Conchis Charles MR#: [id number] 826 : 1955 Acct:[id number] Age/Sex: 67 / F Adm Date: 3 Loc: Room: [address] [place] [address] Type: ADM INOo Attending Dr: Lucian Bruno DO Copies to: DO Lucian Monzon DO~ HPI DATE OF EXAMINATION: 08/28/22 CHIEF COMPLAINT: Chronic pain HISTORY OF PRESENT ILLNESS: This patient is a very pleasant 67-year-old female with a history of neuropathy but she reports being diagnosed with almost 20 years ago. She takes Lyrica 3 times daily but states her prescription ran out and she has not due for refill until September 08. She has had progressing generalized neuropathic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 Confirmed 07/26/23] albuterol sulfate 2.5 mg/3 mL (0.083 %) solution for nebulization 2.5 mg inhalation Q8HR 06/24/23 [History Confirmed 07/26/23] albuterol sulfate 90 mcg/actuation aerosol inhaler 1 puff inhalation Q4HR PRN shortness of breath or wheezing 06/24/23 [History Confirmed 07/26/23] albuterol sulfate 90 mcg/actuation aerosol inhaler (ProAir HFA) 1 inh [id number] 06/24/23 [History Confirmed 07/26/23] alpha lipoic acid 200 mg capsule 600 mg PO TID 06/24/23 [History Confirmed 07/26/23] aspirin 81 mg chewable tablet 1 tab PO DAILY 06/24/23 [History Confirmed 07/26/23] atorvastatin 40 mg tablet 40 mg PO DAILY 06/24/23 [History Confirmed 07/26/23] blood sugar diagnostic (Blood Glucose Test strips) 06/24/23 [History Confirmed 07/26/23] calcium carbonate 600 mg-vitamin D3 5 mcg (200 unit) tablet 1 tab PO BID 06/24/23 [History Confirmed 07/26/23] cetirizine 10 mg tablet (Zyrtec) 10 mg PO DAILY 06/24/23 [History Confirmed 07/26/23] cholecalciferol (vitamin D3) 25 mcg (1,000 unit) capsule 1,000 unit PO DAILY 06/24/23 [History Confirmed 07/26/23] cyclobenzaprine 10 mg tablet 10 mg PO QHS 06/24/23 [History Confirmed 07/26/23] dextromethorphan-guaifenesin 30 mg-600 mg tablet extended [id number] hr 1 tab PO DAILY PRN cough 06/24/23 [History Confirmed 07/26/23] furosemide 40 mg tablet 40 mg PO BID 06/24/23 [History Confirmed 07/26/23] hydrocodone-homatropine 5 mg-1.5 mg/5 mL oral syrup 5 ml PO Q6HR PRN cough 06/24/23 [History Confirmed 07/26/23] levothyroxine 150 mcg tablet 150 mcg PO DAILY 06/24/23 [History Confirmed 07/26/23] lisinopril 5 mg tablet 5 mg PO DAILY 06/24/23 [History Confirmed 07/26/23] nebulizer accessories (Adult Aerosol Mask) 06/24/23 [History Confirmed 07/26/23] omega-3 fatty acids 1,000 mg capsule 1,000 mg PO DAILY 06/24/23 [History Confirmed 07/26/23] oxcarbazepine 300 mg tablet (Trileptal) 450 mg PO TID 06/24/23 [History Confirmed 07/26/23] potassium chloride 20 mEq tablet,extended release 20 meq PO BID 06/24/23 [History Confirmed 07/26/23] pregabalin 200 mg capsule 200 mg PO TID 06/24/23 [History Confirmed 07/26/23] ropinirole 1 mg tablet 1 mg PO DAILY 06/24/23 [History Confirmed 07/26/23] saliva substitute combo no.9 (Biotene Dry Mouth Oral Rinse mouthwash) 15 ml mucous membrane BID-QID PRN dry mouth 06/24/23 [History Confirmed 07/26/23] umeclidinium 62.5 mcg-vilanterol 25 mcg/actuation powdr for inhalation (Anoro Ellipta) 1 inh inhalation DAILY 06/24/23 [History Confirmed 07/26/23] amantadine HCl 100 mg tablet 100 mg PO DAILY 07/26/23 [History Confirmed 07/26/23] levetiracetam 250 mg tablet 250 mg PO DAILY 07/26/23 [History Confirmed 07/26/23] Exam Physical Exam Vital Signs: Temp Pulse Resp BP Pulse Ox O2 Del Method O2 Flow Rate 97.5 F L 46 L 18 96/61 L 96 Nasal Cannula 2 07/26/23 07:40 07/26/23 08:44 07/26/23 08:44 07/26/23 07:40 07/26/23 08:40 07/26/23 08:40 07/26/23 08:40 FiO2 5 07/26/23 04:00 Const General: cooperative and frail appearing Nutritional Appearance: average body habitus Neck Neck: full ROM Chest Chest palpation & inspection: normal inspection of the chest Resp Effort & Inspection: able to speak in complete sentences and symmetric chest movement Cardio Rate: regular rate Rhythm: regular rhythm AGAPITO Risk Score AGAPITO Risk Score Predictor Historical: Age > 65 Years Old and 3 or more Risk Factors: FHx,HTN,elevated cholesterol,DM,active smoker Presentation: Increased Cardiac Marker Score Risk Score (0-7): 3 Results: 3 Results - Cardiology Labs 07/26/23 02:02 07/25/23 21:54 Lab results: CBC 07/25/23 07/26/23 Range/Units 21:54 02:02 RBC 4.51 4.17 (3.60-5.00) X10E6/uL Hgb 13.5 12.4 (11.8-15.4) g/dL Hct 40.3 36.9 (34.0-46.4) % Plt Count 112 L 105 L (150-450) x10E3/uL Neut # (Auto) 5.8 6.3 (1.8-7.7) x10E3/uL Lymph # (Auto) 0.8 L 0.2 L (1.00-4.8) x10E3/uL Toole # (Auto) 0.6 0.2 (0.0-0.8) x10E3/uL Eos # (Auto) 0.1 0.0 (0.0-0.45) x10E3/uL Baso # (Auto) 0.1 0.1 (0.0-0.2) x10E3/uL Comprehensive Metabolic Panel 07/25/23 Range/Units 21:54 Sodium 136 (136-145) mmol/L Potassium 4.7 (3.5-5.1) mmol/L Chloride 96 L (98-107) mmol/L Carbon Dioxide 32.3 H (21.0-31.0) mmol/L BUN 38 H (7-25) mg/dL Creatinine 1.80 H (0.60-1.20) mg/dL Glucose 146 H (70-100) mg/dL Calcium 8.9 (8.6-10.3) mg/dL Intake and Output 07/25/23 07/26/23 07/26/23 23:59 07:59 15:59 Intake Total 1100 / 1100 0 / 0 Output Total 950 / 950 Balance 1100 / 1100 -950 / -950 Intake: IV 1100 / 1100 Magnesium Sulf 2Gm-*Swfi* 2 gm 50 / 50 In 50 ml @ 200 mls/hr IV ONCE ONE Rx#:[id number] Sodium Chloride 0.9% 1,000 ml 1 1000 / 1000 ,000 ml @ 999 mls/hr IV .Q1H1M ONE Rx#:[id number] cefTRIAXone 2GM-*NS* 2 gm In 50 50 / 50 ml @ 100 mls/hr IV ONCE ONE Rx #:[id number] Oral 0 / 0 Output: Urine Amount (Catheter) 950 / 950 Urethral (Hanson) 950 / 950 Other: Weight 70.7 kg 68.8 kg Patient Weight 07/26/23 23:59 Weight 68.8 kg Lab 07/26/23 07/26/23 02:02 08:13 PT 11.4 INR 1.0 APTT 29.6 53.6 H EKG Interpretations EKG EKG results cardiology: sinus rhythm Blocks, axis, hypertrophy, ST abn AV and intraventricular conduction: intraventricular conduction delay A&P - Cardiology (1) Type 2 WA (myocardial infarction): Code(s): I21.A1 - Myocardial infarction type 2 (2) COPD exacerbation: Code(s): J44.1 - Chronic obstructive pulmonary disease with (acute) exacerbation (3) Smoker: Code(s): F17.200 - Nicotine dependence, unspecified, uncomplicated (4) Diabetes: Code(s): E11.9 - Type 2 diabetes mellitus without complications (5) Acute kidney failure: Code(s): N17.9 - Acute kidney failure, unspecified (6) UTI (urinary tract infection): Code(s): N39.0 - Urinary tract infection, site not specified Plan See above Documented By: Ciro Galdamez DO 07/26/23 1003 Signed By: <Electronically signed by Ciro Galdamez, > 07/26/23 1258 [facility] Work Phone: Evaluation + Plan note No data available for this section [facility] evaluation noteNo InformationNort [employer] Other Evaluation note* Diagnosis Onset Date Resolution Status Acute electrocardiogram changes acute Chest pain acute Elevated troponin acute [facility] Work Phone: Evaluation note* Diagnosis Onset Date Resolution Status Abnormal EKG acute Acute electrocardiogram changes acute Anginal equivalent acute Chest pain acute Coronary artery disease acut e Elevated troponin acute [facility] Work Phone: Evaluation noteNo assessment information available [facility] Work Phone: Evaluwggmu note* Diagnosis Onset Date Resolution Status Acute exacerbation of chroni c obstructive pulmonary disease acute Acute kidney failure acute Acute non-ST elevation myocardial infarction (NSTEMI) acute [facility] Work Phone: Evaluation note* Diagnosis Onset Date Resolution Status COPD exacerbation acute Acute kidney failure acute Acute non-ST elevation myocardial infarction (NSTEMI) acute Diabetes acute Hyperlipidemia acute Hypothyroidism acute Sepsis acute Sleep apnea acute Smoker acute Type 2 WA (myocardial infarction) acute Urinary retention acute UTI (urinary tract infection) acute [facility] Work Phone: Evaluation note* Diagnosis Onset Date Resolution Status Sleep apnea acute Smoker acute COPD exacerbation resolved Acute kidney failure resolve d Acute non-ST elevation myocardial infarction (NSTEMI) resolved Sepsis resolved Type 2 WA (myocardial infarction) resolved Urinary retention resolved UTI (urinary tract infection) resolved UMM (acute kidney injury) ac [place] COPD (chronic obstructive pulmonary disease) acute COPD exacerbation acute History of parathyroidectomy acute Hypercalcemia acute Pneumonia acute [facility] Work Phone: Evaluation note* Diagnosis Coronary artery disease involving [place] coronary artery of [place] heart without angina pectoris- Primary Essential hypertension Unspecified essential hypertension Mixed hyperlipidemia Diabetes mellitus type II, non insulin dependent (Multi) Type II or unspecified type diabetes mellitus without mention of complication, not stated as uncontrolled BMI 27.0-27.9,adult Chronic obstructive pulmonary disease, unspecified COPD type (Multi) Former smoker Personal history of tobacco use, presenting hazards to health documented in this encounter [facility] Work Phone: Evaluation note* Diagnosis Onset Date Resolution Status Sleep apnea acute Smoker acute COPD exacerbation resolved Acute kidney failure resolve d Acute non-ST elevation myocardial infarction (NSTEMI) resolved Sepsis resolved Type 2 WA (myocardial infarction) resolved Urinary retention resolved UTI (urinary tract infection) resolved UMM (acute kidney injury) re solved UMM (acute kidney injury) re solved [facility] Work Phone: Evaluation note* Diagnosis Onset Date Resolution Status Sleep apnea acute Smoker acute COPD exacerbation resolved Acute kidney failure resolve d Acute non-ST elevation myocardial infarction (NSTEMI) resolved Sepsis resolved Type 2 WA (myocardial infarction) resolved Urinary retention resolved UTI (urinary tract infection) resolved UMM (acute kidney injury) re solved UMM (acute kidney injury) re solved COPD (chronic obstructive pulmonary disease) acute Oxygen dependent acute [facility] Work Phone: Evaluation note* Diagnosis Onset Date Resolution Status Hypothyroidism acute Sleep apnea acute Smoker acute COPD exacerbation resolved Acute kidney failure resolve d Acute non-ST elevation myocardial infarction (NSTEMI) resolved Sepsis resolved Type 2 WA (myocardial infarction) resolved Urinary retention resolved UTI (urinary tract infection) resolved Hypercalcemia acute UMM (acute kidney injury) re solved Hypercalcemia acute UMM (acute kidney injury) re solved COPD (chronic obstructive pulmonary disease) acute Oxygen dependent acute COPD (chronic obstructive pulmonary disease) acute Hypercalcemia acute Hypothyroidism acute Other hyperlipidemia acute Pneumonia due to COVID-19 virus acute Renal insufficiency acute [facility] Work Phone: Evaluation note* Diagnosis Onset Date Resolution Status Hypothyroidism acute Sleep apnea acute Smoker acute COPD exacerbation resolved Acute kidney failure resolve d Acute non-ST elevation myocardial infarction (NSTEMI) resolved Sepsis resolved Type 2 WA (myocardial infarction) resolved Urinary retention resolved UTI (urinary tract infection) resolved Hypercalcemia acute UMM (acute kidney injury) re solved Hypercalcemia acute UMM (acute kidney injury) re solved COPD (chronic obstructive pulmonary disease) acute Oxygen dependent acute COPD (chronic obstructive pulmonary disease) acute Hypercalcemia acute Hypothyroidism acute Neuropathy acute Nicotine dependence acute Other hyperlipidemia acute Pneumonia due to COVID-19 virus acute Renal insufficiency acute [facility] Work Phone: Evaluation note* Diagnosis Onset Date Resolution Status COPD (chronic obstructive pulmonary disease) acute Oxygen dependent acute COPD (chronic obstructive pulmonary disease) acute Hypercalcemia acute Hypothyroidism acute Neuropathy acute Nicotine dependence acute Other hyperlipidemia acute Pneumonia due to COVID-19 virus acute Renal insufficiency acute Acute exacerbation of chroni c obstructive pulmonary disease acute CAP (community acquired pneumonia) acute Elevated troponin acute Sepsis acute [facility] Work Phone: Evaluation note* Diagnosis Onset Date Resolution Status COPD (chronic obstructive pulmonary disease) acute Oxygen dependent acute COPD (chronic obstructive pulmonary disease) acute Hypercalcemia acute Hypothyroidism acute Neuropathy acute Nicotine dependence acute Other hyperlipidemia acute Pneumonia due to COVID-19 virus acute Renal insufficiency acute Acute exacerbation of chroni c obstructive pulmonary disease acute CAP (community acquired pneumonia) acute COPD (chronic obstructive pulmonary disease) acute Diabetes acute Elevated troponin acute Oxygen dependent acute Pneumonia acute Sepsis acute Shortness of breath acute [facility] Work Phone: Evaluation note* Diagnosis Neuropathy Mononeuritis of unspecified site [facility] Diagnosis Coronary artery disease involving [place] coronary artery of [place] heart without angina pectoris- Primary Essential hypertension Unspecified essential hypertension Mixed hyperlipidemia Diabetes mellitus type II, non insulin dependent (Multi) Type II or unspecified type diabetes mellitus without mention of complication, not stated as uncontrolled BMI 27.0-27.9,adult Chronic obstructive pulmonary disease, unspecified COPD type (Multi) Former smoker Personal history of tobacco use, presenting hazards to health Essential hypertension Unspecified essential hypertension Mixed hyperlipidemia Chronic obstructive pulmonary disease, unspecified COPD type (Multi) Type 2 diabetes mellitus without complication, with long-term current use of insulin (Multi) BMI 29.0-29.9,adult Former smoker Personal history of tobacco use, presenting hazards to health documented in this encounter [facility] Work Phone: History and physical note Author Mejia Aaron [facility] July 26, 2023 8:13am Note Date/Time July 26, 2023 7:44a m [facility] [address] [place] [address] Hospitalist H&P Signed Patient: Conchis Charles MR#: [id number] 826 : 1955 Acct:[id number] Age/Sex: 68 / F Adm Date: 4 Loc: Room: [address] [place] [address] Type: ADM IN Attending Dr: Jaylan Child DO Copies to: DO Mejia Monzon MD Shawn J Warner, DO~ HPI DATE OF EXAMINATION: 07/26/23 CHIEF COMPLAINT: Shortness of breath HISTORY OF PRESENT ILLNESS: Ms. Charles is a 76-year-old female with PMH of COPD, tobacco abuse, DM type II, HTN, peripheral neuropathy, cognitive impairment at baseline who presents to theemergency department with shortness of breath x 1 week. History obtained largely via physician and nursing signout, given patient unable to appropriatelyanswer questions on my assessment at bedside. Patient normally wears 2 L nasal cannula oxygen at home, but has been increasing it to 4 L, but patient was still short of breath. She has been having somewhat more productive cough as well. Patient presented in respiratory distress. Lab work was noteworthy for UMM with creatinine of 1.8 from previous 1.2, troponin elevation from 68 up to 109.7. Patient was recommended for hospitalization per ED attending. Patient did spike temperature of up to 103.1 in the ED. She was started on IV ceftriaxone. Case was discussed between myself and ED attending and patient wasadmitted to hospitalist service for further management. Upon arrival to the progressive care unit, bladder scan performed and patient had greater than 1 L of urine present in the bladder upon Hanson insertion. Review of Systems Review of Systems Review of systems: 10 point ROS reviewed and is negative except for that which is noted above in [facility] Medical History (Updated 07/26/23 @ 08:06 by Mejia Aaron MD) Rupture Achilles tendon both feet Feeling of incomplete bladder emptying Neuropathy Diabetes COPD (chronic obstructive pulmonary disease) Surgical History Status post right foot surgery Status post laser cataract surgery of both eyes History of hip surgery H/O thyroidectomy H/O: hysterectomy Family History Father Pneumonia Grandparent Liver disease Legacy FamHx Relation: Maternal Grand Father Legacy FamHx Relation: Maternal Grand Father Grandparent Cancer Legacy FamHx Relation: Maternal Grand Mother; Legacy FamHx Problem: Diagnosed with Cancer Legacy FamHx Relation: Maternal Grand Mother Grandparent Myocardial infarction Legacy FamHx Relation: Paternal Grand Father Legacy FamHx Relation: Paternal Grand Father Heart disease Legacy FamHx Relation: Paternal Grand Father Grandparent Legacy FamHx Relation: Paternal Grand Mother Diabetes Legacy FamHx Relation: Paternal Grand Mother Grandparent Cancer Legacy FamHx Relation: Maternal Grand Mother Grandparent Diabetes Legacy FamHx Relation: Paternal Grand Mother Mother Cancer Legacy FamHx Problem: Diagnosed with Cancer Social History Smoking Status: Current every day smoker Tobacco Type: cigarettes Substance Use Type: None Substance Abuse Comment: denies illegal drug use. 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 and Allergies Allergies Penicillins Allergy (Unknown, Verified 07/25/23 21:44) Unknown Reaction sulfamethoxazole Allergy (Unknown, Verified 07/25/23 21:44) hives Home Medications Oxygen 06/24/23 [History Confirmed 06/24/23] albuterol sulfate 2.5 mg/3 mL (0.083 %) solution for nebulization mg inhalation 06/24/23 [History Confirmed 06/24/23] albuterol sulfate 90 mcg/actuation aerosol inhaler 1 puff inhalation Q4HR 06/24/23 [History Confirmed 06/24/23] albuterol sulfate 90 mcg/actuation aerosol inhaler (ProAir HFA) 1 inh [id number] 06/24/23 [History Confirmed 06/24/23] alpha lipoic acid 200 mg capsule mg PO 06/24/23 [History Confirmed 06/24/23] aspirin 81 mg chewable tablet 1 tab PO DAILY 06/24/23 [History Confirmed 06/24/23] atorvastatin 40 mg tablet 40 mg PO DAILY 06/24/23 [History Confirmed 07/26/23] blood sugar diagnostic (Blood Glucose Test strips) 06/24/23 [History Confirmed 06/24/23] calcium carbonate 600 mg-vitamin D3 5 mcg (200 unit) tablet 1 tab PO BID 06/24/23 [History Confirmed 06/24/23] cetirizine 10 mg tablet (Zyrtec) 10 mg PO DAILY 06/24/23 [History Confirmed 06/24/23] cholecalciferol (vitamin D3) 25 mcg (1,000 unit) capsule 1,000 unit PO DAILY 06/24/23 [History Confirmed 06/24/23] cyclobenzaprine 10 mg tablet 10 mg PO QHS 06/24/23 [History Confirmed 06/24/23] dextromethorphan-guaifenesin 30 mg-600 mg tablet extended [id number] hr tab PO 06/24/23 [History Confirmed 06/24/23] furosemide 40 mg tablet 40 mg PO BID 06/24/23 [History Confirmed 07/26/23] hydrocodone-homatropine 5 mg-1.5 mg/5 mL oral syrup 5 ml PO Q6HR 06/24/23 [History Confirmed 06/24/23] levothyroxine 150 mcg tablet 150 mcg PO DAILY 06/24/23 [History Confirmed 07/26/23] lisinopril 5 mg tablet 5 mg PO DAILY 06/24/23 [History Confirmed 07/26/23] nebulizer accessories (Adult Aerosol Mask) 06/24/23 [History Confirmed 06/24/23] omega-3 fatty acids 1,000 mg capsule 1,000 mg PO DAILY 06/24/23 [History Confirmed 06/24/23] oxcarbazepine 300 mg tablet (Trileptal) 300 mg PO 06/24/23 [History Confirmed 06/24/23] potassium chloride 20 mEq tablet,extended release 20 meq PO BID 06/24/23 [History Confirmed 06/24/23] pregabalin 200 mg capsule 200 mg PO TID 06/24/23 [History Confirmed 07/26/23] ropinirole 1 mg tablet 1 mg PO DAILY 06/24/23 [History Confirmed 06/24/23] saliva substitute combo no.9 (Biotene Dry Mouth Oral Rinse mouthwash) 15 ml mucous membrane BID-QID PRN 06/24/23 [History Confirmed 06/24/23] umeclidinium 62.5 mcg-vilanterol 25 mcg/actuation powdr for inhalation (Anoro Ellipta) 1 inh inhalation DAILY 06/24/23 [History Confirmed 07/26/23] amantadine HCl 100 mg tablet 100 mg PO DAILY 07/26/23 [History Confirmed 07/26/23] levetiracetam 250 mg tablet mg PO 07/26/23 [History] Exam Physical Exam Vital Signs: Temp Pulse Resp BP Pulse Ox O2 Del Method O2 Flow Rate 97.5 F L 49 L 17 96/61 L 93 L Nasal Cannula 2 07/26/23 07:40 07/26/23 07:40 07/26/23 07:40 07/26/23 07:40 07/26/23 07:40 07/26/23 07:40 07/26/23 07:40 Narrative: Constitutional: Elderly WF, resting in bed, mainly snoring during my assessment HEENT: Dry mucous membranes, neck supple Cardiovascular: RRR, no M/R/G Respiratory: Diminished throughout GI: Soft, NTND, NABS : Deferred Extremities: No clubbing, cyanosis or edema Neuro: AAO x 0. Patient is significantly sleepy during my assessment and cannot awaken easily to follow commands Skin: No rashes or lesions noted upon anterior inspection Psych: Difficult to arouse and sleepy during my assessment Results - Hospitalist H&P Lab Results Labs: Laboratory Last Values Corrected WBC 6.8 X10E3/uL (3.8-11.6) 07/26/23 02:02 Uncorrected WBC Count 6.8 x10E3/uL (3.8-11.6) 07/26/23 02:02 RBC 4.17 X10E6/uL (3.60-5.00) 07/26/23 02:02 Hgb 12.4 g/dL (11.8-15.4) 07/26/23 02:02 Hct 36.9 % (34.0-46.4) 07/26/23 02:02 MCV 88.6 fl (80-100) 07/26/23 02:02 MCH 29.8 pg (24.7-34.3) 07/26/23 02:02 MCHC 33.6 g/dL (32.0-35.0) 07/26/23 02:02 RDW 13.7 % (11.9-15.3) 07/26/23 02:02 Plt Count 105 x10E3/uL (150-450) L 07/26/23 02:02 MPV 8.9 fl (6.3-10.7) 07/26/23 02:02 Neut % (Auto) 92.5 % (.) 07/26/23 02:02 Lymph % (Auto) 3.2 % (.) 07/26/23 02:02 Toole % (Auto) 3.2 % (.) 07/26/23 02:02 Eos % (Auto) 0.0 % (.) 07/26/23 02:02 Baso % (Auto) 1.1 % (.) 07/26/23 02:02 Nucleat RBC Rel Count 0.1 /100 WBC (0-0.5) 07/26/23 02:02 Neut # (Auto) 6.3 x10E3/uL (1.8-7.7) 07/26/23 02:02 Lymph # (Auto) 0.2 x10E3/uL (1.00-4.8) L 07/26/23 02:02 Toole # (Auto) 0.2 x10E3/uL (0.0-0.8) 07/26/23 02:02 Eos # (Auto) 0.0 x10E3/uL (0.0-0.45) 07/26/23 02:02 Baso # (Auto) 0.1 x10E3/uL (0.0-0.2) 07/26/23 02:02 Monocyte Dist Width Test not performed % (0.00-20.00) 07/26/23 02:02 PT 11.4 Seconds (9.0-12.9) 07/26/23 02:02 INR 1.0 05/21/24 02:02 APTT 29.6 Seconds (25.1-36.5) 07/26/23 02:02 Sample Site Venous 07/25/23 22:48 VBG pH 7.48 (7.32-7.43) H 07/25/23 22:48 VBG pCO2 37.7 mmHg (38.0-50.0) L 07/25/23 22:48 VBG pO2 92.0 mmHg (35.0-45.0) H* 07/25/23 22:48 VBG HCO3 27.7 mmol/L (23.0-29.0) 07/25/23 22:48 VBG Total CO2 28.9 mmol/L (24.0-29.0) 07/25/23 22:48 VBG O2 Saturation 97.4 % (73.0-76.0) H* 07/25/23 22:48 VBG O2 Content 8.4 mmol/L (6.6-9.7) 07/25/23 22:48 VBG Base Excess 4.2 mmol/L (-3.0-3.0) H 07/25/23 22:48 FiO2 32 % 07/25/23 22:48 Critical Value 07/25/23 22:48 PHA Creatinine Clear 27.22 07/25/23 21:54 Sodium 136 mmol/L (136-145) 07/25/23 21:54 Potassium 4.7 mmol/L (3.5-5.1) 07/25/23 21:54 Chloride 96 mmol/L (98-107) L 07/25/23 21:54 Carbon Dioxide 32.3 mmol/L (21.0-31.0) H 07/25/23 21:54 Anion Gap 12.4 mEq/L (6.0-15.0) 07/25/23 21:54 BUN 38 mg/dL (7-25) H 07/25/23 21:54 Creatinine 1.80 mg/dL (0.60-1.20) H 07/25/23 21:54 Est GFR (CKD-EPI) 29.936 mL/Min 07/25/23 21:54 Glucose 146 mg/dL (70-100) H 07/25/23 21:54 Lactic Acid 1.0 mmol/L (0.5-2.2) 07/25/23 23:02 Calcium 8.9 mg/dL (8.6-10.3) 07/25/23 21:54 Troponin I High Sens 109.7 pg/mL (0.0-15.0) H* 07/26/23 00:25 Urine Color Yellow (Yellow) 07/26/23 04:29 Urine Appearance Clear (Clear) 07/26/23 04:29 Urine pH 5.5 (5.0-9.0) 07/26/23 04:29 Ur Specific [place] 1.014 (1.001-1.030) 07/26/23 04:29 Urine Protein Trace mg/dL (Negative) H 07/26/23 04:29 Urine Glucose (UA) Normal mg/dL (Normal) 07/26/23 04: Urine Ketones Negative (Negative) 07/26/23 04:29 Urine Occult Blood Negative (Negative) 07/26/23 04:29 Urine Nitrite Positive (Negative) H 07/26/23 04:29 Urine Bilirubin Negative (Negative) 07/26/23 04:29 Urine Urobilinogen Normal mg/dL (Normal) 07/26/23 04:29 Ur Leukocyte Esterase 3+ (Negative) H 07/26/23 04:29 Urine RBC 1-2 /HPF (0-4) 07/26/23 04:29 Urine WBC 20-49 /HPF (0-4) H 07/26/23 04:29 Ur Squamous Epith Cells None seen /HPF (0-2) 07/26/23 04:29 Urine Bacteria 3+ /HPF (None Seen) H 07/26/23 04:29 Hyaline Casts 0-8 /LPF (0-8) 07/26/23 04:29 SARS-CoV-2 Rap RNA(RT-PCR) Negative (Negative) 07/25/23 21:50 Microbiology Results Micro: Microbiology - Results from entire visit 07/25/23 21:50 Nasopharyngeal SARS-CoV-2, Influenza & RSV (PCR) - Final ABG Interpretation ABG results: 07/25/23 22:48 VBG pH 7.48 H VBG pCO2 37.7 L VBG pO2 92.0 H* VBG HCO3 27.7 VBG Total CO2 28.9 VBG O2 Saturation 97.4 H* VBG Base Excess 4.2 H Assessment & Plan Assessment/Plan (1) Sepsis: (2) COPD exacerbation: (3) Acute kidney failure: (4) Urinary retention: (5) Type 2 WA (myocardial infarction): (6) Smoker: (7) Sleep apnea: (8) Hypothyroidism: (9) Hyperlipidemia: Plan Sepsis Acute cystitis Etiology appears to be UTI versus respiratory infection -Start IV ceftriaxone and azithromycin -Monitor fever curve, WBC, other sepsis parameters -Follow-up urine, blood cultures COPD exacerbation Acute on chronic hypoxic respiratory failure -IV Solu-Medrol -Supplemental O2 as needed -DuoNebs scheduled -Vp Site on smoking cessation Troponin elevation ED staff concern for NSTEMI and placed on heparin drip. May be more of demand ischemia related to patient's sepsis and acute on chronic respiratory issues -Check echocardiogram -Holding on IV diuretics at this time -Consult cardiology for their assessment -Maintaining heparin drip at this time Urinary retention Found upon admission to the medical floor. Hanson catheter placed -Maintain Hanson for now CODE STATUS: Full code IP vs OBS Justification Based on differential dx, clinical care plan, and risk of adverse events, if untreated, in my clinical judgement this patient requires an acute care setting as: INPATIENT because of an expectation of an over 2 midnight stay. Estimated length of stay (# of days): 3 Documented By: Mejia Aaron MD 4 [id number] Signed By: <Electronically signed by Mejia Aaron MD> 07/26/23 0813 [facility] Work Phone: Hospital Discharge instructions Additional Instructions Follow-up with your primary care doctor Return to ED if develop worsening [facility] Work Phone: Hospital Discharge instructions Additional Instructions Shelter Facility to manage care: - Full code - PT/OT eval and treat - Routine vital signs - Fingerstick blood sugar ACHS - Intermittent feeding supervision - Oxygen at 3L per nasal cannula, titrate as needed to keep pox > 90% [facility] Work Phone: Hospital Discharge instructions Additional Instructions Continue current meds Follow-up with your private physician [facility] if [facility] are [facility] Work Phone: Hospital Discharge instructions Additional Instructions SNF TO MANAGE: PT/OT to eval and treat Monitor VS per protocol Monitor daily weights Monitor Respiratory and Cardiac assessments--Respiratory failure, COPD, CHF Monitor Cardiac assessment--Elevated troponin Oxygen currently at 5l per NC Maintain high risk fall precautions Please follow and provide education on CHF instructions [facility] Work [facility] Progress note Author Jaylan Child [facility] July 26, 2023 12:37pm Note Date/Time July 26, 2023 12:37 pm [facility] [address] [place] [address] Hospitalist Progress Note Signed Patient: Conchis Charles MR#: [id number] 826 : 1955 Acct:[id number] Age/Sex: 68 / F Adm Date: 4 Loc: Room: [address] [place] [address] Type: ADM IN Attending Dr: Jaylan Child DO Copies to: ~ Date of Service: 07/26/2023 Subjective Subjective Narrative: Seen and evaluated, patient currently sitting up in the chair and she is alert and oriented by 3 right now. She does recall being quite confused as yesterday and says this has been happening for a while now where she had a lot of confusion. I did let her know that she has a urinary tract infection and likelyCOPD this patient, there is always a possibility for pneumonia but on exam she is quite wheezy and I am favoring UTI with COPD at this point in time. Therapy has been ordered, patient states she is not interested in going to a SNF at thispoint in time and says that she does have help at home, I did encourage her to reconsider throughout her admission. Exam Physical Exam Vital Signs: Temp Pulse Resp BP Pulse Ox O2 Del Method O2 Flow Rate 97.5 F L 46 L 18 96/61 L 96 Nasal Cannula 2 07/26/23 07:40 07/26/23 08:44 07/26/23 08:44 07/26/23 07:40 07/26/23 08:40 07/26/23 08:40 07/26/23 08:40 FiO2 5 07/26/23 04:00 Narrative: General: Awake alert, no acute distress HEENT: head atraumatic, normocephalic, moist mucous membranes Neck: supple no masses, no lymphadenopathy CVS: regular rate and rhythm, no murmurs or gallops Respiratory: Diffuse expiratory wheezes noted, rhonchi noted on the right upper lobe GI: soft, nondistended, nontender, positive bowel sounds with no organomegaly Extremity: moves all extremities, no restrictions of movements, no calf tenderness, no edema Neuro: AOx3, CN II-VII intact. Moves all extremities in all planes of motion. Skin: dry, intact no rashes or lesions Objective Lab Results 07/26/23 02:02 07/25/23 21:54 Microbiology Results Microbiology 07/25/23 21:50 Nasopharyngeal SARS-CoV-2, Influenza & RSV (PCR) - Final Meds Allergies and Active Meds Allergies Penicillins Allergy (Unknown, Verified 07/25/23 21:44) Unknown Reaction sulfamethoxazole Allergy (Unknown, Verified 07/25/23 21:44) hives Active Meds: Active Medications Generic Name Dose Route Start Last Admin Trade Name Jakobq PRN Reason Stop Dose Admin Acetaminophen 650 mg 07/26/23 05:16 Acetaminophen 325 Mg Tablet PO 07/25/24 05:15 Q6HR PRN Pain Scale 1 - 3 or fever Albuterol/Ipratropium 3 ml 07/26/23 08:00 07/26/23 11:37 Ipratropium/Albuterol 0.5-3 Mg 3 Ml Ampul.Neb INHALATION 07/25/24 07:59 3 ml QID.RESP ANUSHA Administration Dextrose 0 gm 07/26/23 07:58 Dextrose 50% In Water 25 Gm/50 Ml Syringe IV-PUSH 07/25/24 07:57 PRN PRN Hypoglycemia Glucose 0 gm 07/26/23 07:58 Dextrose 40% Gel 15 Gm Tube PO 07/25/24 07:57 PRN PRN Hypoglycemia Ceftriaxone Sodium 1 gm in 50 mls @ 100 mls/hr 07/26/23 22:00 Rocephin IV Q24H ANUSHA Azithromycin 500 mg in 250 mls @ 250 mls/hr 07/26/23 09:00 07/26/23 08:45 Zithromax IV 250 mls/hr Q24H ANUSHA Administration Insulin Aspart 0 units 07/26/23 08:00 07/26/23 12:16 Insulin Aspart 300 Units/3 Ml Insuln.Pen SUBCUT 07/25/24 07:59 Not Given TID.WM.HS ANUSHA Protocol Methylprednisolone Sodium Succinate 20 mg 07/26/23 09:00 07/26/23 08:45 Methylprednisolone Sod Succ/Pf 40 Mg/Ml (1ml) Vial IV-PUSH 07/25/24 08:59 20 mg Q12HR ANUSHA Administration Ondansetron HCl 4 mg 07/26/23 05:16 Ondansetron 4 Mg/2 Ml Vial IV-PUSH 07/25/24 05:15 Q8H PRN Nausea And Vomiting Potassium Chloride 40 meq 07/26/23 05:16 Potassium Chloride Er 20 Meq Tab.Er.Prt PO 07/25/24 05:15 DAILY PRN Hypokalemia Sodium Chloride 0 ml 07/25/23 21:43 Sodium Chloride 0.9 % 10 Ml Syringe IV-PUSH 07/24/24 21:42 PRN PRN Flush Sodium Chloride 0 ml 07/26/23 06:00 07/26/23 07:55 Sodium Chloride 0.9 % 10 Ml Syringe IV-PUSH 07/25/24 05:59 Not Given QSHIFT ANUSHA A&P - Hospitalist Assessment/Plan (1) Sepsis: (2) COPD exacerbation: (3) Acute kidney failure: (4) Urinary retention: (5) Type 2 WA (myocardial infarction): (6) Smoker: (7) Sleep apnea: (8) Hypothyroidism: (9) Hyperlipidemia: Plan Sepsis Acute cystitis Etiology appears to be UTI versus respiratory infection -Start IV ceftriaxone ?She has been afebrile since admission -Follow-up urine, blood cultures COPD exacerbation Acute on chronic hypoxic respiratory failure -IV Solu-Medrol -Supplemental O2 as needed -DuoNebs scheduled -Vp Site on smoking cessation Troponin elevation ?Discontinue heparin GTT, troponin elevation likely secondary to sepsis and demand ischemia -Check echocardiogram -Consult cardiology for their assessment Urinary retention Found upon admission to the medical floor. Hanson catheter placed -Maintain Hanson for now, plan for trial of void tomorrow CODE STATUS: Full code Documented By: Jaylan Child DO 07/26/23 1234 Signed By: <Electronically signed by Jaylan Child, > 07/26/23 1237 [facility] Work Phone: Progress note Author Jaylan Child [facility] July 27, 2023 12:42pm Note Date/Time July 27, 2023 12:42 pm [facility] [address] [place] [address] Hospitalist Progress Note Signed Patient: Conchis Charles MR#: [id number] 826 : 1955 Acct:[id number] Age/Sex: 68 / F Adm Date: 4 Loc: Room: [address] [place] [address] Type: ADM IN Attending Dr: Jaylan Child DO Copies to: ~ Date of Service: 07/27/2023 Subjective Subjective Narrative: Seen and evaluated, patient currently sitting up in bed and does endorse feelingmuch better though she still feels quite weak Exam Physical Exam Vital Signs: Temp Pulse Resp BP Pulse Ox O2 Del Method O2 Flow Rate 97.7 F 49 L 16 99/61 L 100 Nasal Cannula 2 07/27/23 07:52 07/27/23 08:17 07/27/23 08:17 07/27/23 07:52 07/27/23 08:00 07/27/23 08:00 07/27/23 08:21 FiO2 5 07/26/23 04:00 Narrative: General: Awake alert, no acute distress HEENT: head atraumatic, normocephalic, moist mucous membranes Neck: supple no masses, no lymphadenopathy CVS: regular rate and rhythm, no murmurs or gallops Respiratory: Diffuse expiratory wheezes noted, rhonchi noted on the right upper lobe GI: soft, nondistended, nontender, positive bowel sounds with no organomegaly Extremity: moves all extremities, no restrictions of movements, no calf tenderness, no edema Neuro: AOx3, CN II-VII intact. Moves all extremities in all planes of motion. Skin: dry, intact no rashes or lesions Objective Lab Results 07/27/23 05:18 07/27/23 05:18 Microbiology Results Microbiology 07/26/23 04:29 Urine - Hanson Catheter Urine Culture - Preliminary Gram Negative Bacilli 07/25/23 23:07 Blood - Left Hand Blood Culture - Preliminary No Growth 1 Day 07/25/23 21:57 Blood - Right Antecubital Blood Culture - Preliminary No Growth 1 Day Meds Allergies and Active Meds Allergies Penicillins Allergy (Unknown, Verified 07/25/23 21:44) Unknown Reaction sulfamethoxazole Allergy (Unknown, Verified 07/25/23 21:44) hives Active Meds: Active Medications Generic Name Dose Route Start Last Admin Trade Name Freq PRN Reason Stop Dose Admin Acetaminophen 650 mg 07/26/23 05:16 Acetaminophen 325 Mg Tablet PO 07/25/24 05:15 Q6HR PRN Pain Scale 1 - 3 or fever Albuterol 1 puff 07/26/23 12:55 Albuterol Hfa 60 Puff/8 Gram Inhaler INHALATION 07/25/24 12:54 Q4HR PRN shortness of breath or wheezing Albuterol/Ipratropium 3 ml 07/26/23 08:00 07/27/23 08:17 Ipratropium/Albuterol 0.5-3 Mg 3 Ml Ampul.Neb INHALATION 07/25/24 07:59 3 ml QID.RESP ANUSHA Administration Amantadine HCl 100 mg 07/27/23 09:00 07/27/23 08:35 Amantadine 100 Mg Capsule PO 07/26/24 08:59 100 mg DAILY ANUSHA Administration Aspirin 81 mg 07/27/23 09:00 07/27/23 08:34 Aspirin 81 Mg Tab.Chew PO 07/26/24 08:59 81 mg DAILY ANUSHA Administration Atorvastatin Calcium 40 mg 07/26/23 22:00 07/26/23 21:49 Atorvastatin 40 Mg Tablet PO 07/25/24 21:59 40 mg QHS ANUSHA Administration Calcium Carbonate 1 tab 07/26/23 21:00 07/27/23 08:34 Calcium Carbonate/Vitamin D3 500 Mg/200 Unit Tablet PO 07/25/24 20:59 1 tab BID ANUSHA Administration Cyclobenzaprine HCl 10 mg 07/26/23 22:00 07/27/23 06:37 Cyclobenzaprine 10 Mg Tablet PO 07/25/24 21:59 Not Given QHS ANUSHA Dextrose 0 gm 07/26/23 07:58 Dextrose 50% In Water 25 Gm/50 Ml Syringe IV-PUSH 07/25/24 07:57 PRN PRN Hypoglycemia Fish Oil 1,000 mg 07/27/23 09:00 07/27/23 08:35 [place]-3/Fish Oil 1,000 Mg Capsule PO 07/26/24 08:59 1,000 mg DAILY ANUSHA Administration Glucose 0 gm 07/26/23 07:58 Dextrose 40% Gel 15 Gm Tube PO 07/25/24 07:57 PRN PRN Hypoglycemia Guaifenesin/Dextromethorphan 1 tab 07/26/23 12:55 Guaif/Dextromethorphan 600-30mg Tab.Er.12h PO 07/25/24 12:54 DAILY PRN cough Hydrocodone Bit/Homatropine Methylb 5 ml 07/26/23 12:55 Hydrocodone/Homatropine Syrup 5 Ml Syrup PO Q6HR PRN cough Ceftriaxone Sodium 1 gm in 50 mls @ 100 mls/hr 07/26/23 22:00 07/26/23 22:00 Rocephin IV Infused Q24H ANUSHA Infusion Azithromycin 500 mg in 250 mls @ 250 mls/hr 07/26/23 09:00 07/27/23 09:35 Zithromax IV Infused Q24H ANUSHA Infusion Insulin Aspart 0 units 07/26/23 08:00 07/27/23 12:17 Insulin Aspart 300 Units/3 Ml Insuln.Pen SUBCUT 07/25/24 07:59 Not Given TID.WM.HS ANUSHA Protocol Levetiracetam 250 mg 07/26/23 21:00 07/27/23 08:40 Levetiracetam 250 Mg Tablet PO 07/25/24 20:59 250 mg BID ANUSHA Administration Levothyroxine Sodium 150 mcg 07/27/23 06:30 07/27/23 06:43 Levothyroxine 150 Mcg Tablet PO 07/26/24 06:29 150 mcg DAILY@0630 ANUSHA Administration Loratadine 10 mg 07/27/23 09:00 07/27/23 08:35 Loratadine 10 Mg Tablet PO 07/26/24 08:59 10 mg DAILY ANUSHA Administration Methylprednisolone Sodium Succinate 20 mg 07/26/23 09:00 07/27/23 08:34 Methylprednisolone Sod Succ/Pf 40 Mg/Ml (1ml) Vial IV-PUSH 07/25/24 08:59 20 mg Q12HR ANUSHA Administration Alpha Lipoic Acid 600 mg 07/26/23 14:00 07/27/23 08:33 200 Mg Capsule PO 07/25/24 13:59 Not Given TID ANUSHA Ondansetron HCl 4 mg 07/26/23 05:16 Ondansetron 4 Mg/2 Ml Vial IV-PUSH 07/25/24 05:15 Q8H PRN Nausea And Vomiting Oxcarbazepine 450 mg 07/26/23 14:00 07/27/23 08:35 Oxcarbazepine 150 Mg Tablet PO 07/25/24 13:59 450 mg TID ANUSHA Administration Potassium Chloride 20 meq 07/26/23 21:00 07/27/23 08:35 Potassium Chloride Er 20 Meq Tab.Er.Prt PO 07/25/24 20:59 20 meq BID ANUSHA Administration Pregabalin 200 mg 07/26/23 18:00 07/27/23 08:35 Pregabalin 100 Mg Capsule PO 07/25/24 17:59 200 mg TID ANUSHA Administration Ropinirole HCl 1 mg 07/26/23 22:00 07/26/23 21:49 Ropinirole 1 Mg Tablet PO 07/25/24 21:59 1 mg QHS ANUSHA Administration Sodium Chloride 0 ml 07/25/23 21:43 07/27/23 08:36 Sodium Chloride 0.9 % 10 Ml Syringe IV-PUSH 07/24/24 21:42 10 ml PRN PRN Administration Flush Sodium Chloride 0 ml 07/26/23 06:00 07/27/23 06:43 Sodium Chloride 0.9 % 10 Ml Syringe IV-PUSH 07/25/24 05:59 10 ml QSHIFT ANUSHA Administration Vitamin D 25 mcg 07/27/23 09:00 07/27/23 08:35 Cholecalciferol 25 Mcg (1,000 Units) Tablet PO 07/26/24 08:59 25 mcg DAILY ANUSHA Administration A&P - Hospitalist Assessment/Plan (1) Sepsis: (2) COPD exacerbation: (3) Acute kidney failure: (4) Urinary retention: (5) Type 2 WA (myocardial infarction): (6) Smoker: (7) Sleep apnea: (8) Hypothyroidism: (9) Hyperlipidemia: Plan Sepsis Acute cystitis Etiology appears to be UTI versus respiratory infection -Will need 3 days total of ceftriaxone ?She has been afebrile since admission -Urine culture shows gram-negative bacilli, species pending COPD exacerbation Acute on chronic hypoxic respiratory failure -Initiate prednisone taper ?40 mg for 4 days, titrate down 10 mg every 4 days until 0 -Supplemental O2 as needed -Janie scheduled -Vp Site on smoking cessation Troponin elevation ?Discontinue heparin GTT, troponin elevation likely secondary to sepsis and demand ischemia -Echocardiogram shows EF of 65% with trivial valvular arctic stenosis -No intervention per cardiology Urinary retention Found upon admission to the medical floor. Hanson catheter placed -Plan to attempt trial of void today CODE STATUS: Full code Documented By: Jaylan Child DO 07/27/23 1238 Signed By: <Electronically signed by Jaylan Child DO> 07/27/23 1242 [facility] Work Phone: Progress note Author Jaylan Child [facility] July 28, 2023 12:06pm Note Date/Time July 28, 2023 12:03 pm [facility] [address] [place] [address] Hospitalist Progress Note Signed Patient: Conchis Charles MR#: [id number] 826 : 1955 Acct:[id number] Age/Sex: 68 / F Adm Date: 4 Loc: Room: [address] [place] [address] Type: ADM IN Attending Dr: Jaylan Child DO Copies to: ~ Date of Service: 07/28/2023 Subjective Subjective Narrative: Seen and evaluated, patient currently laying in bed, she sits up and states she is still feeling a little bit weak but overall feels she is breathing back to her baseline. Exam Physical Exam Vital Signs: Temp Pulse Resp BP Pulse Ox O2 Del Method O2 Flow Rate 97.5 F L 60 18 114/58 L 93 L Nasal Cannula 3 07/28/23 11:07/28/23 11:07/28/23 11:07/28/23 11:07/28/23 11:07/28/23 11:07/28/23 11: FiO2 5 07/26/23 04:00 Narrative: General: Awake alert, no acute distress HEENT: head atraumatic, normocephalic, moist mucous membranes Neck: supple no masses, no lymphadenopathy CVS: regular rate and rhythm, no murmurs or gallops Respiratory: Diffuse expiratory wheezes noted, rhonchi noted on the right upper lobe GI: soft, nondistended, nontender, positive bowel sounds with no organomegaly Extremity: moves all extremities, no restrictions of movements, no calf tenderness, no edema Neuro: AOx3, CN II-VII intact. Moves all extremities in all planes of motion. Skin: dry, intact no rashes or lesions Objective Lab Results 07/27/23 05:18 07/28/23 04:50 Microbiology Results Microbiology 07/26/23 04:29 Urine - Hanson Catheter Urine Culture - Final Escherichia coli 07/25/23 23:07 Blood - Left Hand Blood Culture - Preliminary No Growth 2 Days 07/25/23 21:57 Blood - Right Antecubital Blood Culture - Preliminary No Growth 2 Days Meds Allergies and Active Meds Allergies Penicillins Allergy (Unknown, Verified 07/25/23 21:44) Unknown Reaction sulfamethoxazole Allergy (Unknown, Verified 07/25/23 21:44) hives Active Meds: Active Medications Generic Name Dose Route Start Last Admin Trade Name Freq PRN Reason Stop Dose Admin Acetaminophen 650 mg 07/26/23 05:16 07/28/23 00:36 Acetaminophen 325 Mg Tablet PO 07/25/24 05:15 650 mg Q6HR PRN Administration Pain Scale 1 - 3 or fever Albuterol 1 puff 07/26/23 12:55 Albuterol Hfa 60 Puff/8 Gram Inhaler INHALATION 07/25/24 12:54 Q4HR PRN shortness of breath or wheezing Albuterol/Ipratropium 3 ml 07/26/23 08:00 07/28/23 11:51 Ipratropium/Albuterol 0.5-3 Mg 3 Ml Ampul.Neb INHALATION 07/25/24 07:59 3 ml QID.RESP ANUSHA Administration Amantadine HCl 100 mg 07/27/23 09:00 07/28/23 08:18 Amantadine 100 Mg Capsule PO 07/26/24 08:59 100 mg DAILY ANUSHA Administration Aspirin 81 mg 07/27/23 09:00 07/28/23 08:16 Aspirin 81 Mg Tab.Chew PO 07/26/24 08:59 81 mg DAILY ANUSHA Administration Atorvastatin Calcium 40 mg 07/26/23 22:00 07/27/23 21:13 Atorvastatin 40 Mg Tablet PO 07/25/24 21:59 Not Given QHS ANUSHA Calcium Carbonate 1 tab 07/26/23 21:00 07/28/23 08:16 Calcium Carbonate/Vitamin D3 500 Mg/200 Unit Tablet PO 07/25/24 20:59 1 tab BID ANUSHA Administration Cyclobenzaprine HCl 10 mg 07/26/23 22:00 07/27/23 21:13 Cyclobenzaprine 10 Mg Tablet PO 07/25/24 21:59 Not Given QHS ANUSHA Dextrose 0 gm 07/26/23 07:58 Dextrose 50% In Water 25 Gm/50 Ml Syringe IV-PUSH 07/25/24 07:57 PRN PRN Hypoglycemia Fish Oil 1,000 mg 07/27/23 09:00 07/28/23 08:16 Concho-3/Fish Oil 1,000 Mg Capsule PO 07/26/24 08:59 1,000 mg DAILY ANUSHA Administration Glucose 0 gm 07/26/23 07:58 Dextrose 40% Gel 15 Gm Tube PO 07/25/24 07:57 PRN PRN Hypoglycemia Guaifenesin/Dextromethorphan 1 tab 07/26/23 12:55 Guaif/Dextromethorphan 600-30mg Tab.Er.12h PO 07/25/24 12:54 DAILY PRN cough Hydrocodone Bit/Homatropine Methylb 5 ml 07/26/23 12:55 Hydrocodone/Homatropine Syrup 5 Ml Syrup PO Q6HR PRN cough Ceftriaxone Sodium 1 gm in 50 mls @ 100 mls/hr 07/26/23 22:00 07/27/23 21:38 Rocephin IV 07/28/23 22:29 Infused Q24H ANUSHA Infusion Azithromycin 500 mg in 250 mls @ 250 mls/hr 07/26/23 09:00 07/28/23 09:54 Zithromax IV 07/29/23 09:59 Infused Q24H ANUSHA Infusion Insulin Aspart 0 units 07/26/23 08:00 07/28/23 09:08 Insulin Aspart 300 Units/3 Ml Insuln.Pen SUBCUT 07/25/24 07:59 Not Given TID.WM.HS [facility] Protocol Levetiracetam 250 mg 07/26/23 21:00 07/28/23 08:18 Levetiracetam 250 Mg Tablet PO 07/25/24 20:59 250 mg BID ANUSHA Administration Levothyroxine Sodium 150 mcg 07/27/23 06:30 07/28/23 05:45 Levothyroxine 150 Mcg Tablet PO 07/26/24 06:29 Not Given DAILY@0630 ANUSHA Loratadine 10 mg 07/27/23 09:00 07/28/23 08:17 Loratadine 10 Mg Tablet PO 07/26/24 08:59 10 mg DAILY ANUSHA Administration Methylprednisolone Sodium Succinate 20 mg 07/26/23 09:00 07/28/23 08:18 Methylprednisolone Sod Succ/Pf 40 Mg/Ml (1ml) Vial IV-PUSH 07/25/24 08:59 20 mg Q12HR ANUSHA Administration Alpha Lipoic Acid 600 mg 07/26/23 14:00 07/28/23 09:09 200 Mg Capsule PO 07/25/24 13:59 Not Given TID ANUSHA Ondansetron HCl 4 mg 07/26/23 05:16 Ondansetron 4 Mg/2 Ml Vial IV-PUSH 07/25/24 05:15 Q8H PRN Nausea And Vomiting Oxcarbazepine 450 mg 07/26/23 14:00 07/28/23 08:17 Oxcarbazepine 150 Mg Tablet PO 07/25/24 13:59 450 mg TID ANUSHA Administration Potassium Chloride 20 meq 07/26/23 21:00 07/28/23 09:09 Potassium Chloride Er 20 Meq Tab.Er.Prt PO 07/25/24 20:59 Not Given BID ANUSHA Pregabalin 100 mg 07/27/23 14:00 07/28/23 08:18 Pregabalin 100 Mg Capsule PO 01/23/24 13:59 100 mg TID ANUSHA Administration Ropinirole HCl 1 mg 07/26/23 22:00 07/27/23 20:59 Ropinirole 1 Mg Tablet PO 07/25/24 21:59 1 mg QHS ANUSHA Administration Sodium Chloride 0 ml 07/25/23 21:43 07/28/23 10:19 Sodium Chloride 0.9 % 10 Ml Syringe IV-PUSH 07/24/24 21:42 10 ml PRN PRN Administration Flush Sodium Chloride 0 ml 07/26/23 06:00 07/28/23 05:45 Sodium Chloride 0.9 % 10 Ml Syringe IV-PUSH 07/25/24 05:59 Not Given QSHIFT ANUSHA Vitamin D 25 mcg 07/27/23 09:00 07/28/23 08:16 Cholecalciferol 25 Mcg (1,000 Units) Tablet PO 07/26/24 08:59 25 mcg DAILY ANUSHA Administration A&P - Hospitalist Assessment/Plan (1) Sepsis: (2) COPD exacerbation: (3) Acute kidney failure: (4) Urinary retention: (5) Type 2 WA (myocardial infarction): (6) Smoker: (7) Sleep apnea: (8) Hypothyroidism: (9) Hyperlipidemia: Plan Sepsis Acute cystitis Etiology appears to be UTI versus respiratory infection -Will need 3 days total of ceftriaxone ?She has been afebrile since admission -Urine culture shows pansensitive E. coli COPD exacerbation Acute on chronic hypoxic respiratory failure -Initiate prednisone taper ?40 mg for 4 days, titrate down 10 mg every 4 days until 0 -Supplemental O2 as needed -DuoNebs scheduled -Vp Site on smoking cessation Troponin elevation ?Discontinue heparin GTT, troponin elevation likely secondary to sepsis and demand ischemia -Echocardiogram shows EF of 65% with trivial valvular arctic stenosis -No intervention per cardiology Urinary retention Found upon admission to the medical floor. Hanson catheter placed -Hanson catheter removed on July 26 CODE STATUS: Full code Documented By: Jaylan Child DO 07/28/23 1200 Signed By: <Electronically signed by Jaylan Child DO> 07/28/23 1206 [facility] Work Phone: Progress note Author Jaylan Child [facility] July 29, 2023 1:09pm Note Date/Time July 29, 2023 1:09p maliha [facility] [address] [place] [address] Hospitalist Progress Note Signed Patient: Conchis Charles MR#: [id number] 826 : 1955 Acct:[id number] Age/Sex: 68 / F Adm Date: 4 Loc: Room: [address] [place] [address] Type: ADM IN Attending Dr: Jaylan Child DO Copies to: ~ Date of Service: 07/29/2023 Subjective Subjective Narrative: Seen and evaluated, patient currently sitting up in the bed. Overnight events reviewed, patient went into flash pulmonary edema in middle the night due to herLasix being held for UMM and dehydration on admission. Patient was placed on high flow nasal cannula and this was titrated down to 4 L nasal cannula, patientis currently below her baseline as far as her respiration status goes. Exam Physical Exam Vital Signs: Temp Pulse Resp BP Pulse Ox O2 Del Method O2 Flow Rate 98.4 F 59 L 22 128/64 98 High Flow 35 07/29/23 11:25 07/29/23 12:17 07/29/23 12:17 07/29/23 11:25 07/29/23 12:17 07/29/23 11:25 07/29/23 12:17 FiO2 45 07/29/23 12:17 Narrative: General: Awake alert, no acute distress HEENT: head atraumatic, normocephalic, moist mucous membranes Neck: supple no masses, no lymphadenopathy CVS: regular rate and rhythm, no murmurs or gallops Respiratory: Coarse breath sounds heard throughout GI: soft, nondistended, nontender, positive bowel sounds with no organomegaly Extremity: moves all extremities, no restrictions of movements, no calf tenderness, no edema Neuro: AOx3, CN II-VII intact. Moves all extremities in all planes of motion. Skin: dry, intact no rashes or lesions Objective Lab Results 07/29/23 05:21 07/29/23 05:21 Microbiology Results Microbiology 07/25/23 23:07 Blood - Left Hand Blood Culture - Preliminary No Growth 3 Days 07/25/23 21:57 Blood - Right Antecubital Blood Culture - Preliminary No Growth 3 Days Meds Allergies and Active Meds Allergies Penicillins Allergy (Unknown, Verified 07/25/23 21:44) Unknown Reaction sulfamethoxazole Allergy (Unknown, Verified 07/25/23 21:44) hives Active Meds: Active Medications Generic Name Dose Route Start Last Admin Trade Name Freq PRN Reason Stop Dose Admin Acetaminophen 650 mg 07/26/23 05:16 07/28/23 00:36 Acetaminophen 325 Mg Tablet PO 07/25/24 05:15 650 mg Q6HR PRN Administration Pain Scale 1 - 3 or fever Albuterol 1 puff 07/26/23 12:55 Albuterol Hfa 60 Puff/8 Gram Inhaler INHALATION 07/25/24 12:54 Q4HR PRN shortness of breath or wheezing Albuterol/Ipratropium 3 ml 07/26/23 08:00 07/29/23 12:17 Ipratropium/Albuterol 0.5-3 Mg 3 Ml Ampul.Neb INHALATION 07/25/24 07:59 3 ml QID.RESP ANUSHA Administration Amantadine HCl 100 mg 07/27/23 09:00 07/29/23 09:46 Amantadine 100 Mg Capsule PO 07/26/24 08:59 100 mg DAILY ANUSHA Administration Aspirin 81 mg 07/27/23 09:00 07/29/23 09:47 Aspirin 81 Mg Tab.Chew PO 07/26/24 08:59 81 mg DAILY ANUSHA Administration Atorvastatin Calcium 40 mg 07/26/23 22:00 07/28/23 21:18 Atorvastatin 40 Mg Tablet PO 07/25/24 21:59 40 mg QHS ANUSHA Administration Calcium Carbonate 1 tab 07/26/23 21:00 07/29/23 09:46 Calcium Carbonate/Vitamin D3 500 Mg/200 Unit Tablet PO 07/25/24 20:59 1 tab BID ANUHSA Administration Cyclobenzaprine HCl 10 mg 07/26/23 22:00 07/28/23 21:18 Cyclobenzaprine 10 Mg Tablet PO 07/25/24 21:59 10 mg QHS ANUSHA Administration Dextrose 0 gm 07/26/23 07:58 Dextrose 50% In Water 25 Gm/50 Ml Syringe IV-PUSH 07/25/24 07:57 PRN PRN Hypoglycemia Fish Oil 1,000 mg 07/27/23 09:00 07/29/23 09:46 Concho-3/Fish Oil 1,000 Mg Capsule PO 07/26/24 08:59 1,000 mg DAILY ANUSHA Administration Furosemide 20 mg 07/29/23 15:00 Furosemide 20 Mg/2 Ml Vial IV-PUSH 07/29/23 15:01 ONCE ONE Furosemide 40 mg 07/29/23 21:00 Furosemide 40 Mg Tablet PO 07/28/24 20:59 BID ANUSHA Glucose 0 gm 07/26/23 07:58 Dextrose 40% Gel 15 Gm Tube PO 07/25/24 07:57 PRN PRN Hypoglycemia Guaifenesin/Dextromethorphan 1 tab 07/26/23 12:55 Guaif/Dextromethorphan 600-30mg Tab.Er.12h PO 07/25/24 12:54 DAILY PRN cough Hydrocodone Bit/Homatropine Methylb 5 ml 07/26/23 12:55 Hydrocodone/Homatropine Syrup 5 Ml Syrup PO Q6HR PRN cough Insulin Aspart 0 units 07/26/23 08:00 07/29/23 12:47 Insulin Aspart 300 Units/3 Ml Insuln.Pen SUBCUT 07/25/24 07:59 Not Given TID.WM.HS [facility] Protocol Levetiracetam 250 mg 07/26/23 21:00 07/29/23 09:46 Levetiracetam 250 Mg Tablet PO 07/25/24 20:59 250 mg BID ANUSHA Administration Levothyroxine Sodium 150 mcg 07/27/23 06:30 07/29/23 05:43 Levothyroxine 150 Mcg Tablet PO 07/26/24 06:29 150 mcg DAILY@0630 ANUSHA Administration Lisinopril 5 mg 07/30/23 09:00 Lisinopril 5 Mg Tablet PO 07/29/24 08:59 DAILY ANUSHA Loratadine 10 mg 07/27/23 09:00 07/29/23 09:47 Loratadine 10 Mg Tablet PO 07/26/24 08:59 10 mg DAILY ANUSHA Administration Alpha Lipoic Acid 600 mg 07/26/23 14:00 07/29/23 08:54 200 Mg Capsule PO 07/25/24 13:59 Not Given TID ANUSHA Ondansetron HCl 4 mg 07/26/23 05:16 Ondansetron 4 Mg/2 Ml Vial IV-PUSH 07/25/24 05:15 Q8H PRN Nausea And Vomiting Oxcarbazepine 450 mg 07/26/23 14:00 07/29/23 09:51 Oxcarbazepine 150 Mg Tablet PO 07/25/24 13:59 450 mg TID ANUSHA Administration Potassium Chloride 20 meq 07/26/23 21:00 07/29/23 09:58 Potassium Chloride Er 20 Meq Tab.Er.Prt PO 07/25/24 20:59 Not Given BID ANUSHA Prednisone 40 mg 07/29/23 09:00 07/29/23 09:47 Prednisone 20 Mg Tablet PO 08/14/23 08:59 40 mg DAILY ANUSHA Administration Taper Pregabalin 100 mg 07/29/23 13:05 Pregabalin 100 Mg Capsule PO 01/23/24 13:59 TID ANUSHA Ropinirole HCl 1 mg 07/26/23 22:00 07/28/23 21:17 Ropinirole 1 Mg Tablet PO 07/25/24 21:59 1 mg QHS ANUSHA Administration Sodium Chloride 0 ml 07/25/23 21:43 07/28/23 10:19 Sodium Chloride 0.9 % 10 Ml Syringe IV-PUSH 07/24/24 21:42 10 ml PRN PRN Administration Flush Sodium Chloride 0 ml 07/26/23 06:00 07/29/23 05:43 Sodium Chloride 0.9 % 10 Ml Syringe IV-PUSH 07/25/24 05:59 Not Given QSHIFT ANUSHA Vitamin D 25 mcg 07/27/23 09:00 07/29/23 09:47 Cholecalciferol 25 Mcg (1,000 Units) Tablet PO 07/26/24 08:59 25 mcg DAILY ANUSHA Administration A&P - Hospitalist Assessment/Plan (1) Sepsis: (2) COPD exacerbation: (3) Acute kidney failure: (4) Urinary retention: (5) Type 2 WA (myocardial infarction): (6) Smoker: (7) Sleep apnea: (8) Hypothyroidism: (9) Hyperlipidemia: Plan Flash pulmonary edema ? Patient received 1 dose of IV Lasix 40 mg this morning at 4 AM, her hyponasal cannula was quickly titrated down to nasal cannula and she is currently saturating well on 4 L ? Her baseline is 2 L ? Will have another dose of 20 mg IV push Lasix this afternoon with plans to resume her normal dose of 40 mg p.o. twice daily starting tomorrow Sepsis Acute cystitis Etiology appears to be UTI versus respiratory infection -Will need 3 days total of ceftriaxone ?She has been afebrile since admission -Urine culture shows pansensitive E. coli ?Resolved COPD exacerbation Acute on chronic hypoxic respiratory failure -Initiate prednisone taper ?40 mg for 4 days, titrate down 10 mg every 4 days until 0 -Supplemental O2 as needed -Janie scheduled -Vp Site on smoking cessation UMM ? Held home dose of Lasix and lisinopril, creatinine has trended and is now normal ? UMM resolved ? Continue Lyrica at her home dose of 200 mg 3 times daily, resume home dose of Lasix 40 twice daily and lisinopril 5 mg daily tomorrow Troponin elevation ?Discontinue heparin GTT, troponin elevation likely secondary to sepsis and demand ischemia -Echocardiogram shows EF of 65% with trivial valvular arctic stenosis -No intervention per cardiology Urinary retention Found upon admission to the medical floor. Hanson catheter placed -Hanson catheter removed on July 26 CODE STATUS: Full code Anticipate discharge to SNF tomorrow, this was explained to the patient and she is agreeable to the plan Documented By: Jaylan Child DO 07/29/23 1306 Signed By: <Electronically signed by Jaylan Child, > 07/29/23 1309 [facility] Work Phone: Progress note Author Joni Garciaalva [facility] August 11, 2023 1:37pm Note Date/Time August 11, 2023 1:37p m [facility] [address] [place] [address] Nephrology Progress Note Signed Patient: Conchis Charles MR#: [id number] 826 : 1955 Acct:[id number] Age/Sex: 68 / F Adm Date: 4 Loc: Room: 6P0186-1 Type: ADM IN Attending Dr: Frank Hudson MD Copies to: ~ Date of Service: 08/11/2023 Subjective Subjective Narrative: Ms. Charles is a 68-year-old white male was transferred from [facility] for UMM and hypercalcemia creatinine 2.2, BUN 67 and calcium 14.2 mg/dL. Patient has baseline creatinine around 1 mg/dL. The patient was just discharged from [facility] on July 29 after short admission for COPD exacerbation and pneumonia. During that admission she had UMM related to urine retention that improved after insertion of Hanson catheter that was removed at the time of discharge withsuccessful void trial. Initially she was on IV fluid however it was complicatedby CHF and she was given furosemide before discharge. [facility] 0.9 and calcium 9 mg/dL. Patient presented to [place] with generalized weakness, general compartments, shortness of breath and suspected pneumonia. Chest x-ray was concerning for infiltrate for which she was treated with Rocephin and azithromycin. Creatinine was found to be 2.2 mg/dL and calcium was elevated 14.2 as stated above. Patient has been on calcium and vitamin D supplements s/p parathyroidectomy that was held on admission. Patient was started on IV fluid normal saline. Today calcium is down to 12.1 mg/dL and creatinine is down to 1.59 mg/dL. Nephrology was consulted for hypercalcemia and UMM. Chart was reviewed. Patient has intermittent episodes of hypo and hypercalcemiasince 2018. She has thyroidectomy with parathyroidectomy and she has been on calcium and vitamin D. 25-hydroxy vitamin D on admission was in the upper rangeof normal 98 and intact PTH low at 3.6 pg/mL reflecting the parathyroidectomy. Patient stated that she still has generalized weakness. No shortness of breath. No cough, fever or chills. No nausea or vomiting. Lab today showed WBCs count 9.8, Hemoglobin 11.3, sodium 135, potassium 3.9, carbon oxide 31.2, BUN 52 and creatinine down to 1.59 mg/dL. Calcium 12.1 and magnesium 1.7. Albumin 3.4 g/dL. Urine analysis showed clear urine. COVID-19 was negative on admission. Bilateral kidney ultrasound showed no evidence of hydronephrosis or kidney stones. Chest x-ray showed improving airspace opacities with no infiltrate or congestion. Interval history: Patient was seen and examined in her room. Patient stated her breathing is better but continues to have exertional dyspnea. Continues to require nasal cannula at 5 L/min Patient is being treated for COPD exacerbation with antibiotics and prednisone. Blood pressure is well-controlled. Remains on Norvasc 5 mg p.o. daily yesterday. Home lisinopril and Lasix remain on hold due to UMM at admission Patient was given 1 dose of Lasix yesterday. She noticed higher urine output Lab from this morning revealed stable serum creatinine around 1.0 mg deciliter, calcium down to 9.4 milligrams deciliter Last echocardiogram revealed normal ejection fraction 60 to 65% Denied chest pain. No nausea no vomiting Exam Physical Exam Vital Signs: Temp Pulse Resp BP Pulse Ox O2 Del Method O2 Flow Rate 97.6 F 58 L 19 152/65 H 99 Nasal Cannula 4 08/11/23 08:13 08/11/23 12:10 08/11/23 12:10 08/11/23 08:13 08/11/23 08:13 08/11/23 08:13 08/11/23 08:13 FiO2 2 08/08/23 20:00 Narrative: General: No acute distress Head :atraumatic normocephalic Eyes: PERRLA. Neck: no JVD no bruit. Heart: S1-S2. RRR Respiratory: Decreased breath sounds over both lung bases. No wheezing. No crackles Abdomen: Soft, positive bowel sounds,no tenderness. Neurology: Awake alert oriented x3. No focal deficits Extremity. No cyanosis. No edema Skin: No skin rash Objective Intake and Output I&O: Intake & Output 08/08/23 08/09/23 08/10/23 08/11/23 23:59 23:59 23:59 23:59 Intake Total 4250 / 4250 2009 1650 / 1650 Output Total 650 / 650 1475 / 1475 Balance 3600 / 3600 2009 175 / 175 Weight 165 lb 5.547 oz 165 lb 2.02 oz 165 lb 12.602 oz 166 lb 14.239 oz Meds and Allergies Meds: Active Medications Acetaminophen (Acetaminophen 325 Mg Tablet) 650 mg PO Q6HR PRN PRN Reason: Pain Scale 1 - 3 or fever Stop: 08/06/24 00:36 Last Admin: 08/10/23 16:54 Dose: 650 mg Albuterol (Albuterol Hfa 60 Puff/8 Gram Inhaler) 1 puff INHALATION Q4HR PRN PRN Reason: shortness of breath or wheezing Stop: 08/06/24 00:40 Last Admin: 08/10/23 02:23 Dose: 1 puff Albuterol (Albuterol Neb 2.5 Mg/3 Ml Vial.Neb) 2.5 mg INHALATION Q3H PRN PRN Reason: Shortness Of Breath Stop: 08/09/24 12:30 Last Admin: 08/11/23 00:38 Dose: 2.5 mg Albuterol/Ipratropium (Ipratropium/Albuterol 0.5-3 Mg 3 Ml Ampul.Neb) 3 ml INHALATION QID.RESP ANUSHA Stop: 08/06/24 07:59 Last Admin: 08/11/23 11:17 Dose: 3 ml Alprazolam (Alprazolam 0.5 Mg Tablet) 0.5 mg PO Q8H PRN PRN Reason: anxiety Stop: 02/06/24 11:17 Last Admin: 08/11/23 01:34 Dose: 0.5 mg Amantadine HCl (Amantadine 100 Mg Capsule) 100 mg PO DAILY ANUSHA Stop: 08/06/24 08:59 Last Admin: 08/11/23 09:52 Dose: 100 mg Amlodipine Besylate (Amlodipine 5 Mg Tablet) 5 mg PO DAILY [facility] Stop: 08/07/24 11:39 Last Admin: 08/11/23 09:52 Dose: 5 mg Aspirin (Aspirin 81 Mg Tab.Chew) 81 mg PO DAILY [facility] Stop: 08/06/24 08:59 Last Admin: 08/11/23 09:53 Dose: 81 mg Atorvastatin Calcium (Atorvastatin 40 Mg Tablet) 40 mg PO DAILY [facility] Stop: 08/06/24 08:59 Last Admin: 08/11/23 09:52 Dose: 40 mg Dextrose (Dextrose 50% In Water 25 Gm/50 Ml Syringe) 0 gm IV-PUSH PRN PRN PRN Reason: Hypoglycemia Stop: 08/06/24 00:42 Glucose (Dextrose 40% Gel 15 Gm Tube) 0 gm PO PRN PRN PRN Reason: Hypoglycemia Stop: 08/06/24 00:42 Guaifenesin (Guaifenesin 600 Mg Tab.Er.12h) 600 mg PO BID PRN PRN Reason: Congestion Stop: 08/09/24 11:17 Last Admin: 08/10/23 16:54 Dose: 600 mg Heparin Sodium (Porcine) (Heparin 5,000 Unit/Ml Vial) 5,000 unit SUBCUT Q8HR [facility] Stop: 08/06/24 05:59 Last Admin: 08/11/23 08:09 Dose: 5,000 unit Levofloxacin (Levaquin) 750 mg in 150 mls @ 100 mls/hr IV Q48H [facility] Last Admin: 08/10/23 12:43 Dose: 100 mls/hr Insulin Aspart (Insulin Aspart 300 Units/3 Ml Insuln.Pen) 0 units SUBCUT TID..[facility]; Protocol Stop: 08/06/24 07:59 Last Admin: 08/11/23 09:28 Dose: Not Given Levetiracetam (Levetiracetam 250 Mg Tablet) 250 mg PO BID [facility] Stop: 08/06/24 08:59 Last Admin: 08/11/23 09:53 Dose: 250 mg Levothyroxine Sodium (Levothyroxine 150 Mcg Tablet) 150 mcg PO DAILY@0630 [facility] Stop: 08/06/24 06:29 Last Admin: 08/11/23 08:07 Dose: 150 mcg Oxcarbazepine (Oxcarbazepine 150 Mg Tablet) 450 mg PO TID [facility] Stop: 08/06/24 08:59 Last Admin: 08/11/23 09:53 Dose: 450 mg Prednisone (Prednisone 20 Mg Tablet) 30 mg PO DAILY ANUSHA; Taper Stop: 08/21/23 08:59 Last Admin: 08/11/23 09:53 Dose: 30 mg Pregabalin (Pregabalin 100 Mg Capsule) 100 mg PO TID ANUSHA Stop: 02/06/24 21:59 Last Admin: 08/11/23 09:53 Dose: 100 mg Prochlorperazine Edisylate (Prochlorperazine Edisylate 10 Mg/2 Ml Vial) 5 mg IV- PUSH Q4H PRN PRN Reason: Nausea And Vomiting Stop: 08/06/24 00:36 Ropinirole HCl (Ropinirole 1 Mg Tablet) 1 mg PO QHS ANUSHA Stop: 08/09/24 21:59 Last Admin: 08/10/23 22:30 Dose: 1 mg Allergies Penicillins Allergy (Unknown, Verified 07/25/23 21:44) Unknown Reaction sulfamethoxazole Allergy (Unknown, Verified 07/25/23 21:44) hives Results - Nephrology Labs 08/11/23 04:50 08/11/23 04:50 Labs: 08/11/23 04:50 BUN 24 Creatinine 1.11 Phosphorus 2.4 L Albumin 3.5 Radiology Impressions Impressions - last 24 hours: Impressions Chest CT 08/10/23 09:22 IMPRESSION: Small bilateral pleural effusions are redemonstrated with dependent atelectasis. Emphysematous changes are noted. Additional chronic findings are noted as above. Impression dictated by: Ana Cristina Hathaway M.D.08/10/2023 5:45 PM Dictation Location: [place] [address] Any impression(s) listed above is documentation that was entered by the reading physician into a diagnostic report(s) for Conchis Charles. I have reviewed the report(s) and am incorporating any findings in the treatment plan of this patient where applicable. A&P - Nephrology Assessment/Plan (1) Hypercalcemia: Assessment/Problem Details: Patient presented with hypercalcemia 40 mg/dL while she was on vitamin D and calcium supplement. 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 Although the patient has COPD, chest x-ray showed no evidence of masses. She has no significant weight loss or hemoptysis to suggest cancer. Patient had episodes of hypercalcemia and hypercalcemia in the past. (2) UMM (acute kidney injury): Assessment/Problem Details: Patient had UMM with admission possibly related to decreased oral intake after recent hospitalization and not feeling well. She denies any nausea or vomiting. Patient has been on furosemide this currently on hold. (3) COPD (chronic obstructive pulmonary disease): Assessment/Problem Details: Patient has a history of COPD on oxygen, prednisone and inhalers at home. Patient is a former smoker. (4) History of parathyroidectomy: Assessment/Problem Details: Patient initial parathyroidectomy possibly inadvertent removal at the time of thyroidectomy for thyrotoxicosis. Patient has been on calcium and vitamin D supplement. Plan * Kidney function recovered to baseline. * Total calcium level improved to normal level with holding home calcium and vitamin D. Patient is currently off IV fluid. TSH is within normal limit. PTH related peptide still pendingt * Continue holding home lisinopril. Continue amlodipine 5 mg p.o. daily. It is expected for the blood pressure to improve with tapering dose of prednisone might have to increase the dose to 10 mg p.o. daily with higher blood pressure * Patient currently on ceftriaxone and doxycycline for presumed pneumonia. Patient also on prednisone for COPD exacerbation as per hospitalist team * Monitor renal panel daily to adjust treatment as indicated. . Documented By: Joni Davila MD 08/11/23 1334 Signed By: <Electronically signed by Joni Davila MD> 08/11/23 1337 [facility] Work Phone: Progress note No data available for this section [facility] Summary Purpose Family History No Family History Records Found Relationship Condition Age at Onset Recorded Date/T cl father Unknown Pneumonia Unknown grandparent Liver disease Unknown Unknown grandparent Malignant neoplasm Unknown grandparent Myocardial infarction Unknown Heart disease Unknown grandparent Unknown Diabetes mellitus Unknown grandparent Diabetes mellitus Unknown Not Specified Unknown Malignant neoplasm Unknown Relationship Condition Age at Onset Recorded Date/T cl father Unknown Pneumonia Unknown grandparent Liver disease Unknown Unknown grandparent Malignant neoplasm Unknown grandparent Myocardial infarction Unknown Heart disease Unknown grandparent Unknown Diabetes mellitus Unknown grandparent Diabetes mellitus Unknown mother Unknown Malignant neoplasm Unknown Relationship Condition Age at Onset Recorded Date/T cl father Unknown Pneumonia Unknown grandparent Liver disease Unknown Unknown grandparent Malignant neoplasm Unknown grandparent Myocardial infarction Unknown Heart disease Unknown grandparent Unknown Diabetes mellitus Unknown mother Unknown Malignant neoplasm Unknown Advance Directives No Advanced Directives Records Found Advance Directive Response Recorded Date/ Time Advance Directives Yes February 07, 2017 12:06pm Advance Directive Response Recorded Date/ Time Advance Directives Yes February 07, 2017 11:06am Chief Complaint and Reason for Visit Chief Complaint vomiting,confusion Reason for Visit Acute electrocardiog shay changes Chest pain Elevated troponin Chief Complaint vomiting,confusion Reason for Visit Abnormal EKG Acute electrocardiogram changes Anginal equivalent Chest pain Coronary artery disease Elevated troponin Chief Complaint vomiting,confusion pain and anxiety. Reason for Visit Abnormal EKG Acute electrocardiogram changes Anginal equivalent Chest pain Coronary artery disease Elevated troponin Chief Complaint g62.9 j44.9 e78.5 e1 1.9 Chief Complaint Amb Documentation sob Reason for Visit Acute exacerbation o f chronic obstructive pulmonary disease Acute kidney failure Acute non-ST elevation myocardial infarction (NSTEMI) Chief Complaint Amb Documentation sob Reason for Visit COPD exacerbation Acute kidney failure Acute non-ST elevation myocardial infarction (NSTEMI) Diabetes Hyperlipidemia Hypothyroidism Sepsis Sleep apnea Smoker Type 2 [place] (myocardial infarction) Urinary retention UTI (urinary tract infection) Chief Complaint Amb Documentation sob Hypercalcemia UMM pneumonia Hypercalcemia UMM pneumonia Reason for Visit Sleep apnea Smoker COPD exacerbation Acute kidney failure Acute non-ST elevation myocardial infarction (NSTEMI) Sepsis Type 2 [place] (myocardial infarction) Urinary retention UTI (urinary tract infection) UMM (acute kidney injury) COPD (chronic obstructive pulmonary disease) COPD exacerbation History of parathyroidectomy Hypercalcemia Pneumonia Chief Complaint Amb Documentation sob Hypercalcemia UMM pneumonia Hypercalcemia UMM pneumonia RENAL HOSP F/U Reason for Visit Sleep apnea Smoker COPD exacerbation Acute kidney failure Acute non-ST elevation myocardial infarction (NSTEMI) Sepsis Type 2 [place] (myocardial infarction) Urinary retention UTI (urinary tract infection) UMM (acute kidney injury) COPD (chronic obstructive pulmonary disease) COPD exacerbation History of parathyroidectomy Hypercalcemia Pneumonia Chief Complaint sob Hypercalcemia UMM pneumonia Hypercalcemia UMM pneumonia RENAL HOSP F/U j96.21 j44.1 j96.21 j44.1 Reason for Visit Sleep apnea Smoker COPD exacerbation Acute kidney failure Acute non-ST elevation myocardial infarction (NSTEMI) Sepsis Type 2 [place] (myocardial infarction) Urinary retention UTI (urinary tract infection) UMM (acute kidney injury) UMM (acute kidney injury) Chief Complaint sob Hypercalcemia UMM pneumonia Hypercalcemia UMM pneumonia RENAL HOSP F/U j96.21 j44.1 j96.21 j44.1 Amb Documentation Ref: Dr. Garcia COPD and SOB Reason for Visit Sleep apnea Smoker COPD exacerbation Acute kidney failure Acute non-ST elevation myocardial infarction (NSTEMI) Sepsis Type 2 [place] (myocardial infarction) Urinary retention UTI (urinary tract infection) UMM (acute kidney injury) UMM (acute kidney injury) COPD (chronic obstructive pulmonary disease) Oxygen dependent Chief Complaint sob Hypercalcemia UMM pneumonia Hypercalcemia UMM pneumonia RENAL HOSP F/U j96.21 j44.1 j96.21 j44.1 Amb Documentation Ref: Dr. Garcia COPD and SOB Hosp/SNF f/u Reason for Visit Hypothyroidism Sleep apnea Smoker COPD exacerbation Acute kidney failure Acute non-ST elevation myocardial infarction (NSTEMI) Sepsis Type 2 [place] (myocardial infarction) Urinary retention UTI (urinary tract infection) Hypercalcemia UMM (acute kidney injury) Hypercalcemia UMM (acute kidney injury) COPD (chronic obstructive pulmonary disease) Oxygen dependent COPD (chronic obstructive pulmonary disease) Hypercalcemia Hypothyroidism Other hyperlipidemia Pneumonia due to COVID-19 virus Renal insufficiency Chief Complaint sob Hypercalcemia UMM pneumonia Hypercalcemia UMM pneumonia RENAL HOSP F/U j96.21 j44.1 j96.21 j44.1 Amb Documentation Ref: Dr. Garcia COPD and SOB Hosp/SNF f/u E11.9 J44.9 N28.9 E78.49 I50.9 E55.9 Reason for Visit Hypothyroidism Sleep apnea Smoker COPD exacerbation Acute kidney failure Acute non-ST elevation myocardial infarction (NSTEMI) Sepsis Type 2 [place] (myocardial infarction) Urinary retention UTI (urinary tract infection) Hypercalcemia UMM (acute kidney injury) Hypercalcemia UMM (acute kidney injury) COPD (chronic obstructive pulmonary disease) Oxygen dependent COPD (chronic obstructive pulmonary disease) Hypercalcemia Hypothyroidism Neuropathy Nicotine dependence Other hyperlipidemia Pneumonia due to COVID-19 virus Renal insufficiency Chief Complaint j96.21 j44.1 j96.21 j44.1 Amb Documentation Ref: Dr. Garcia COPD and SOB Hosp/SNF f/u E11.9 J44.9 N28.9 E78.49 I50.9 E55.9 Amb Documentation Diff breathing Reason for Visit COPD (chronic obstru ctive pulmonary disease) Oxygen dependent COPD (chronic obstructive pulmonary disease) Hypercalcemia Hypothyroidism Neuropathy Nicotine dependence Other hyperlipidemia Pneumonia due to COVID-19 virus Renal insufficiency Acute exacerbation of chronic obstructive pulmonary disease CAP (community acquired pneumonia) Elevated troponin Sepsis Chief Complaint j96.21 j44.1 j96.21 j44.1 Amb Documentation Ref: Dr. Arthur- COPD and SOB Hosp/SNF f/u E11.9 J44.9 N28.9 E78.49 I50.9 E55.9 Amb Documentation Diff breathing Diff breathing Reason for Visit COPD (chronic obstru ctive pulmonary disease) Oxygen dependent COPD (chronic obstructive pulmonary disease) Hypercalcemia Hypothyroidism Neuropathy Nicotine dependence Other hyperlipidemia Pneumonia due to COVID-19 virus Renal insufficiency Acute exacerbation of chronic obstructive pulmonary disease CAP (community acquired pneumonia) COPD (chronic obstructive pulmonary disease) Diabetes Elevated troponin Oxygen dependent Pneumonia Sepsis Shortness of breath Chief Complaint j96.21 j44.1 j96.21 j44.1 Amb Documentation Ref: Dr. Arthur- COPD and SOB Hosp/SNF f/u E11.9 J44.9 N28.9 E78.49 I50.9 E55.9 Amb Documentation Diff breathing Diff breathing Amb Documentation sob Reason for Visit COPD (chronic obstru ctive pulmonary disease) Oxygen dependent COPD (chronic obstructive pulmonary disease) Hypercalcemia Hypothyroidism Neuropathy Nicotine dependence Other hyperlipidemia Pneumonia due to COVID-19 virus Renal insufficiency Acute exacerbation of chronic obstructive pulmonary disease CAP (community acquired pneumonia) COPD (chronic obstructive pulmonary disease) Diabetes Elevated troponin Oxygen dependent Pneumonia Sepsis Shortness of breath Chief Complaint Admit Date Diff breathing November 18, 2023 2:31pm Diff breathing November 19, 2023 6:43pm Amb Documentation November 23, 2023 1:46pm sob November 23, 2023 7:07pm Reason for Visit Admit Date Acute exacerbation of chroni c obstructive pulmonary disease November 18, 2023 2:31pm CAP (community acquired pneumonia) Septe mbmatt 2023 2:31pm COPD (chronic obstructive pulmonary dise ase) November 18, 2023 2:31pm Diabetes November 18, 2023 2:31pm Elevated troponin November 18, 2023 2:31pm Oxygen dependent November 18, 2023 2:31pm Sepsis November 18, 2023 2:31pm Pneumonia November 18, 2023 2:31pm Shortness of breath November 18, 2023 2:31pm Chief Complaint Admit Date Diff breathing November 18, 2023 2:31pm Diff breathing November 19, 2023 6:43pm Amb Documentation November 23, 2023 1:46pm sob November 23, 2023 7:07pm H mo f/u COPD January 24, 2024 10:39am Reason for Visit Admit Date Acute exacerbation of chroni c obstructive pulmonary disease November 18, 2023 2:31pm CAP (community acquired pneumonia) Septe mber 2023 2:31pm COPD (chronic obstructive pulmonary dise ase) November 18, 2023 2:31pm Diabetes November 18, 2023 2:31pm Elevated troponin November 18, 2023 2:31pm Oxygen dependent November 18, 2023 2:31pm Sepsis November 18, 2023 2:31pm Pneumonia November 18, 2023 2:31pm Shortness of breath November 18, 2023 2:31pm COPD (chronic obstructive pulmonary dise ase) January 24, 2024 10:39am Oxygen dependent January 24, 2024 10:39am Chief Complaint Admit Date Diff breathing November 18, 2023 2:31pm Diff breathing November 19, 2023 6:43pm Amb Documentation November 23, 2023 1:46pm sob November 23, 2023 7:07pm H mo f/u COPD January 24, 2024 10:39am Hosp/Romeo f/u/HOSP BED DOCUMENTATION January 25, 2024 10:32am Reason for Visit Admit Date Acute exacerbation of chroni c obstructive pulmonary disease November 18, 2023 2:31pm CAP (community acquired pneumonia) [facility] [place] 2023 2:31pm COPD (chronic obstructive pulmonary dise ase) November 18, 2023 2:31pm Diabetes November 18, 2023 2:31pm Elevated troponin November 18, 2023 2:31pm Oxygen dependent November 18, 2023 2:31pm Sepsis November 18, 2023 2:31pm Pneumonia November 18, 2023 2:31pm Shortness of breath November 18, 2023 2:31pm Chronic respiratory failure with hypoxia, on home O2 therapy January 24, 2024 10:39am COPD (chronic obstructive pulmonary dise ase) January 24, 2024 10:39am Oxygen dependent January 24, 2024 10:39am Chronic respiratory failure with hypoxia, on home O2 therapy January 25, 2024 10:32am COPD (chronic obstructive pulmonary dise ase) January 25, 2024 10:32am Diabetes January 25, 2024 10:32am Neuropathy January 25, 2024 10:32am Nicotine dependence January 25, 2024 10:32am Oxygen dependent January 25, 2024 10:32am Chief Complaint Admit Date E03.9 E78.49 E11.9 January 23, 2024 8:43am H mo f/u COPD January 24, 2024 10:39am Hosp/Romeo f/u/HOSP BED DOCUMENTATION January 25, 2024 10:32am j43.9 j96.11 z99.81 January 30, 2024 1:25pm ams, difficulty breathing February 29, 2024 8:18pm ams, difficulty breathing March 01, 2024 8:54am Trouble urinating March 15, 2024 9: 22pm Reason for Visit Admit Date Chronic respiratory failure with hypoxia, on home O2 therapy January 24, 2024 10:39am COPD (chronic obstructive pulmonary dise ase) January 24, 2024 10:39am Oxygen dependent January 24, 2024 10:39am Chronic respiratory failure with hypoxia, on home O2 therapy January 25, 2024 10:32am COPD (chronic obstructive pulmonary dise ase) January 25, 2024 10:32am Diabetes January 25, 2024 10:32am Neuropathy January 25, 2024 10:32am Nicotine dependence January 25, 2024 10:32am Oxygen dependent January 25, 2024 10:32am Chronic respiratory failure with hypoxia, on home O2 therapy February 29, 2024 8:18pm COPD (chronic obstructive pulmonary dise ase) February 29, 2024 8:18pm Diabetes February 29, 2024 8:18pm Sleep apnea February 29, 2024 8:18pm Smoker February 29, 2024 8:18pm HTN (hypertension) February 29, 2024 8:18pm Acute cystitis with positive culture, wi thout hematuria February 29, 2024 8:18pm Acute on chronic hypoxic respiratory ortega lure February 29, 2024 8:18pm Acute exacerbation of chroni c obstructive pulmonary disease February 29, 2024 8:18pm Acute UTI February 29, 2024 8:18pm Altered mental status, unspecified Decem 2023 8:18pm CAP (community acquired pneumonia) Decem 2023 8:18pm CHF (congestive heart failure) February 29, 2024 8:18pm Elevated troponin February 29, 2024 8:18pm Hyperthyroidism February 29, 2024 8:18pm Leukocytosis February 29, 2024 8:18pm Tachycardia February 29, 2024 8:18pm Acute kidney injury March 15, 2024 9: 22pm Inability to walk March 15, 2024 9: 22pm Right flank pain March 15, 2024 9: 22pm Weakness March 15, 2024 9: 22pm Reason for Visit Admit Date Chronic respiratory failure with hypoxia, on home O2 therapy January 24, 2024 10:39am COPD (chronic obstructive pulmonary dise ase) January 24, 2024 10:39am Oxygen dependent January 24, 2024 10:39am Chronic respiratory failure with hypoxia, on home O2 therapy January 25, 2024 10:32am COPD (chronic obstructive pulmonary dise ase) January 25, 2024 10:32am Diabetes January 25, 2024 10:32am Neuropathy January 25, 2024 10:32am Nicotine dependence January 25, 2024 10:32am Oxygen dependent January 25, 2024 10:32am Chronic respiratory failure with hypoxia, on home O2 therapy February 29, 2024 8:18pm COPD (chronic obstructive pulmonary dise ase) February 29, 2024 8:18pm Diabetes February 29, 2024 8:18pm Sleep apnea February 29, 2024 8:18pm Smoker February 29, 2024 8:18pm HTN (hypertension) February 29, 2024 8:18pm Acute cystitis with positive culture, [facility] hematuria February 29, 2024 8:18pm Acute on chronic hypoxic respiratory ortega lure February 29, 2024 8:18pm Acute exacerbation of chroni c obstructive pulmonary disease February 29, 2024 8:18pm Acute UTI February 29, 2024 8:18pm Altered mental status, unspecified Decem 2023 8:18pm CAP (community acquired pneumonia) Decem 2023 8:18pm CHF (congestive heart failure) February 29, 2024 8:18pm Elevated troponin Tom 25th, 2024 8:18pm Hyperthyroidism February 29, 2024 8:18pm Leukocytosis February 29, 2024 8:18pm Tachycardia February 29, 2024 8:18pm Acute kidney injury March 15, 2024 9: 22pm Bladder obstruction March 15, 2024 9: 22pm Chronic hypoxic respiratory failure Emanuel meraz 2024 9:22pm COPD (chronic obstructive pulmonary dise ase) March 15, 2024 9:22pm Diabetes March 15, 2024 9: 22pm Hypothyroidism March 15, 2024 9: 22pm Inability to walk March 15, 2024 9: 22pm Right flank pain March 15, 2024 9: 22pm Sleep apnea March 15, 2024 9: 22pm Smoker March 15, 2024 9: 22pm Weakness March 15, 2024 9: 22pm Chief Complaint Admit Date E03.9 E78.49 E11.9 January 23, 2024 8:43am H mo f/u COPD January 24, 2024 10:39am Hosp/Romeo f/u/HOSP BED DOCUMENTATION January 25, 2024 10:32am j43.9 j96.11 z99.81 January 30, 2024 1:25pm ams, difficulty breathing February 29, 2024 8:18pm ams, difficulty breathing March 01, 2024 8:54am Trouble urinating March 15, 2024 9: 22pm shortness of breath March 24, 2024 6 :20pm Reason for Visit Admit Date Chronic respiratory failure with hypoxia, on home O2 therapy January 24, 2024 10:39am COPD (chronic obstructive pulmonary dise ase) January 24, 2024 10:39am Oxygen dependent January 24, 2024 10:39am Chronic respiratory failure with hypoxia, on home O2 therapy January 25, 2024 10:32am COPD (chronic obstructive pulmonary dise ase) January 25, 2024 10:32am Diabetes January 25, 2024 10:32am Neuropathy January 25, 2024 10:32am Nicotine dependence January 25, 2024 10:32am Oxygen dependent January 25, 2024 10:32am Chronic respiratory failure with hypoxia, on home O2 therapy February 29, 2024 8:18pm COPD (chronic obstructive pulmonary dise ase) February 29, 2024 8:18pm Diabetes February 29, 2024 8:18pm HTN (hypertension) February 29, 2024 8:18pm Acute cystitis with positive culture, wi thout hematuria February 29, 2024 8:18pm Acute on chronic hypoxic respiratory ortega lure February 29, 2024 8:18pm Sleep apnea February 29, 2024 8:18pm Smoker February 29, 2024 8:18pm Acute exacerbation of chroni c obstructive pulmonary disease February 29, 2024 8:18pm Acute UTI February 29, 2024 8:18pm Altered mental status, unspecified Decem 2023 8:18pm CAP (community acquired pneumonia) Decem 2023 8:18pm CHF (congestive heart failure) February 29, 2024 8:18pm Elevated troponin February 29, 2024 8:18pm Hyperthyroidism February 29, 2024 8:18pm Leukocytosis February 29, 2024 8:18pm Tachycardia February 29, 2024 8:18pm Bladder obstruction March 15, 2024 9: 22pm Chronic hypoxic respiratory failure Emanuelparker meraz 2024 9:22pm COPD (chronic obstructive pulmonary dise ase) March 15, 2024 9:22pm Diabetes March 15, 2024 9: 22pm Hypothyroidism March 15, 2024 9: 22pm Acute kidney injury March 15, 2024 9: 22pm Inability to walk March 15, 2024 9: 22pm Right flank pain March 15, 2024 9: 22pm Sleep apnea March 15, 2024 9: 22pm Smoker March 15, 2024 9: 22pm Weakness March 15, 2024 9: 22pm Abnormal EKG March 24, 2024 6 :20pm Acute electrocardiogram changes March 24, 2024 6:20pm Acute exacerbation of CHF (congestive he art failure) March 24, 2024 6:20pm Acute non-ST elevation myocardial infarc tion (NSTEMI) March 24, 2024 6:20pm Acute on chronic respiratory failure Abram bahman 2024 6:20pm COPD exacerbation March 24, 2024 6 :20pm Coronary artery disease March 24 6:20pm Elevated troponin I level March 24, 2024 6:20pm HTN (hypertension) March 24, 2024 6 :20pm Additional Source Comments INFORMATION SOURCE (unrecogn ized section and content) DATE CREATED AUTHOR 03/24/2021 [facility] DATE CREATED AUTHOR AUTHOR'S ORGANIZ ATION 09/01/2022 [facility] DATE CREATED AUTHOR AUTHOR'S ORGANIZ ATION 10/18/2023 [facility] EPIC DATE CREATED AUTHOR AUTHOR'S ORGANIZ ATION 01/08/2024 [facility] DATE CREATED AUTHOR AUTHOR'S ORGANIZ ATION 02/05/2024 [facility] DATE CREATED AUTHOR AUTHOR'S ORGANIZ ATION 03/24/2024 [facility] ical Center DATE CREATED AUTHOR AUTHOR'S ORGANIZ ATION 03/30/2024 [facility] REASON FOR VISIT (unrecogniz ed section and content) Reason Comments Follow-up [facility] 07/27/23 Reason Comments Med Refill Reason Comments Follow-up [facility] 11/20 Care Teams (unrecognized sec tion and content) Team Status: Active Member Role Status Dates Adán Arthur , DO Primary Care Provider Active Team Status: Active Member Role Status Dates Neto Arauz DO Primary Care Provide r, Attending Provider Active Start: January 16, 2024 Team Status: Inactive Member Role Status Dates Neto Arauz DO Primary Care Provide r, Attending Provider Active Start: January 23, 2024 End: January 23, 2024 Team Status: Inactive Member Role Status Dates JESSE Rainey Attending Provider Active Start: January 24, 2024 End: January 24, 2024 Neto Arauz DO Primary Care Provider Active Sta rt: January 24, 2024 End: January 24, 2024 Team Status: Inactive Member Role Status Dates Neto Arauz DO Primary Care Provide r, Attending Provider Active Start: January 25, 2024 End: January 25, 2024 Team Status: Inactive Member Role Status Dates Neto Arauz DO Primary Care Provider Active Sta rt: January 30, 2024 End: January 30, 2024 JESSE Rainey Attending Provider Active Start: January 30, 2024 End: January 30, 2024 Team Status: Inactive Member Role Status Dates Anderson Gould DO Emergency Provider Active St art: February 29, 2024 End: March 04, 2024 Neto Arauz DO Primary Care Provider Active Sta rt: February 29, 2024 End: March 04, 2024 Clarence Matias , Admit Provider , Attending Provider Active Start: February 29, 2024 End: March 04, 2024 Roberto Singh MD Other Provider Active Start: February 29, 2024 End: March 04, 2024 Team Status: Active Member Role Status Dates Anderson Gould DO Emergency Provider Active St art: March 01, 2024 Neto Arauz DO Primary Care Provider Active Sta rt: March 01, 2024 Clarence Matias DO Admit Provider , Other Provider Active Start: March 01, 2024 Roberto Singh MD Attending Pr ovider, Other Provider Active Start: March 01, 2024 Team Status: Inactive Member Role Status Dates Neto Arauz DO Primary Care Provider Active Sta rt: March 15, 2024 End: March 18, 2024 Jm Almaguer DO Emergency Provider Active Sta rt: March 15, 2024 End: March 18, 2024 Clarence Matias DO Admit Provider Active Start: March 15, 2024 End: March 18, 2024 Jus Perla MD Attending Provider Active Star t: March 15, 2024 End: March 18, 2024 Anderson Carlson MD Other Provider Active Start: March 15, 2024 End: March 18, 2024 Team Status: Active Member Role Status Dates Jose Min PA-C Emergency Provider Active Start: March 24, 2024 Adán Arthur DO Primary Care Provider Active Start: March 24, 2024 Mejia Aaron MD Admit Provide r, Attending Provider Active Start: March 24, 2024 Team Status: Active Member Role Status Dates Neto Arauz DO Primary Care Provider Active Team Status: Active Member Role Status Dates Neto Arauz DO Primary Care Provide r, Attending Provider Active Start: October 27, 2023 Team Status: Inactive Member Role Status Dates Sandor Mcduffie DO Emergency Provider Active Start: November 18, 2023 End: November 21, 2023 Neto Arauz DO Primary Care Provider Active Sta rt: November 18, 2023 End: November 21, 2023 Martin Lemon DO RES Active Sta rt: November 18, 2023 End: November 21, 2023 Mejia Aaron MD Admit Provider Active Start: November 18, 2023 End: November 21, 2023 Yaakov Garcia MD Attending Provider Active St art: November 18, 2023 End: November 21, 2023 Team Status: Active Member Role Status Dates Sandor Mcduffie DO Emergency Provider Active Start: November 19, 2023 Neto Arauz DO Primary Care Provider Active Sta rt: November 19, 2023 Martin Lemon DO RES Active Sta rt: November 19, 2023 Mejia Aaron MD Admit Provide r, Other Provider Active Start: November 19, 2023 Anna Child MD Attending Provider Active Sta rt: November 19, 2023 Team Status: Active Member Role Status Dates Neto Arauz DO Primary Care Provider Active Sta rt: November 23, 2023 Nova Rucker LPN Attending Provider Active Sta rt: November 23, 2023 Team Status: Inactive Member Role Status Dates Adán Arthur DO Primary Care Provider Active Start: November 23, 2023 End: November 24, 2023 Niranjan Hi MD Emergency Provider Active Star t: November 23, 2023 End: November 24, 2023 Team Status: Inactive Member Role Status Dates Adán Arthur DO Primary Care Provi sal, Attending Provider Active Start: September 26, 2023 End: September 26, 2023 Team Status: Active Member Role Status Dates Adná Arthur DO Primary Care Provi sal, Other Provider Active Start: September 26, 2023 Roberto Singh MD Attending Provider Active Start: September 26, 2023 Team Status: Active Member Role Status Dates Adán Arthur DO Primary Care Provider Active Start: October 05, 2023 Nova Rucker LPN Attending Provider Active Sta rt: October 05, 2023 Team Status: Inactive Member Role Status Dates Kaleigh Nation APRN [facility] Attending Provider Active Start: October 11, 2023 End: October 11, 2023 Adán Arthur DO Referring Provider Active Start: October 11, 2023 End: October 11, 2023 Neto Arauz DO Primary Care Provider Active Sta rt: October 11, 2023 End: October 11, 2023 [employer] [facility] Active Start: October 102023 End: October 11, 2023 Team Status: Inactive Member Role Status Dates Neto Arauz DO Primary Care Provide r, Attending Provider Active Start: October 14, 2023 End: October 14, 2023 Team Status: Active Member Role Status Dates Neto Arauz DO Primary Care Provider Active Sta rt: October 18, 2023 ALEXANDRA King Attending Provider Active Start: October 18, 2023 Team Status: Inactive Member Role Status Dates Neto Arauz DO Primary Care Provider Active Sta rt: July 26, 2023 End: July 30, 2023 Saturnino Cortés MD Emergency Provider Active Start: July 26, 2023 End: July 30, 2023 Mejia Aaron MD Admit Provider Active Start: July 26, 2023 End: July 30, 2023 Jaylan Child DO Attending Provider Active St art: July 26, 2023 End: July 30, 2023 Team Status: Inactive Member Role Status Dates Neto Arauz DO Primary Care Provider Active Sta rt: August 06, 2023 End: August 11, 2023 Frank Hudson MD Admit Provider, A ttending Provider Active Start: August 06, 2023 End: August 11, 2023 Keena Kern MD Other Provider Active Start: 2023 End: August 11, 2023 Team Status: Active Member Role Status Dates Neto Arauz DO Primary Care Provider Active Sta rt: August 07, 2023 End: August 11, 2023 Frank Hudson MD Admit Provider Active Sta rt: August 07, 2023 End: August 11, 2023 Ash Alvarenga MD Other Provider Active Start : August 07, 2023 End: August 11, 2023 Keena Kern MD Attending Provider, Other Provider Active Start: August 07, 2023 End: August 11, 2023 Team Status: Inactive Member Role Status Dates Neto Arauz DO Primary Care Provider Active Sta rt: August 18, 2023 End: August 18, 2023 Keena Kern MD Attending Provider Active Star t: August 18, 2023 End: August 18, 2023 Team Status: Active Member Role Status Dates Neto Arauz DO Primary Care Provider Active Sta rt: June 24, 2023 Nova Veverka , [employer] Attending Provider Active Sta rt: June 24, 2023 Team Status: Active Member Role Status Dates Neto Arauz DO Primary Care Provider Active Sta rt: July 26, 2023 Saturnino Cortés MD Emergency Provider Active Start: July 26, 2023 Mejia Aaron MD Admit Provide r, Attending Provider Active Start: July 26, 2023 Team Status: Inactive Member Role Status Dates Neto Arauz DO Primary Care Provider Active Niranjan Hi MD Emergency Provider Active Lucian Bruno DO Admit Provider Active Ferdinand Norris MD Other Provider Active José Luis Fuentes MD Attending Provider Active Team Status: Active Member Role Status Dates Neto Arauz DO Primary Care Provider Active Niranjan Hi MD Emergency Provider Active Lucian Bruno , DO Admit Provider, Attending Provider Active Team Status: Inactive Member Role Status Dates Neto Arauz DO Primary Care Provider Active Que Cam , DO Emergency Provider Active Team Status: Inactive Member Role Status Dates Neto Arauz DO Primary Care Provider, Attending Provi sal Active Team Status: Active Member Role Status Dates Neto Arauz DO Primary Care Provider Active Sta rt: August 07, 2023 Frank Hudson MD Admit Provider Active Sta rt: August 07, 2023 Ash Alvarenga MD Other Provider Active Start : August 07, 2023 Keena Kern MD Attending Provider, Other Provider Active Start: August 07, 2023 Sales And Catering Coordinator Relationship Specialty Start Date End Date Neto Arauz DO [facility] [place] [address] [place] [address] PCP - General Family Medicine 08/22/23 Team Status: Active Member Role Status Dates Neto Arauz DO Primary Care Provide r, Attending Provider Active Start: October 14, 2023 Team Status: Active Member Role Status Dates Sandor Mcduffie DO Emergency Provider Active Start: November 18, 2023 Neto Arauz DO Primary Care Provider Active Sta rt: November 18, 2023 Martin Lemon DO RES Active Sta rt: November 18, 2023 Mejia Aaron MD Admit Provide r, Attending Provider Active Start: November 18, 2023 Sales And Catering Coordinator Relationship Specialty Start Date End Date Neto Arauz DO [address] [place] [address] PCP - General Family Medicine 08/22/23 Team Status: Active Member Role Status Dates Neto Arauz DO Primary Care Provider Active Sta rt: March 15, 2024 Jm Almaguer DO Emergency Provider Active Sta rt: March 15, 2024 Clarence Matias DO Admit Provider , Attending Provider Active Start: March 15, 2024 Team Status: Inactive Member Role Status Dates Jose Min PA-C Emergency Provider Active Start: March 24, 2024 End: March 28, 2024 Aádn Arthur DO Primary Care Provider Active Start: March 24, 2024 End: March 28, 2024 Mejia Aaron MD Admit Provider Active Start: March 24, 2024 End: March 28, 2024 Yaakov Garcia MD Attending Provider Active St art: March 24, 2024 End: March 28, 2024 Goals (unrecognized section and content) Goals may be documented in a n alternate section FOR RECORDS PERTAINING TO PATIENTS WHO ARE OR HAVE BEEN ENROLLED IN A CHEMICAL DEPENDENCY/SUBSTANCEABUSE PROGRAM, SOME INFORMATION MAY BE OMITTED. This clinical summary was aggregated from multiple sources. Caution should be exercised in using it in the provision of clinical care. This summary normalizes information from multiple sources, and as a consequence, information in this document may materially change the coding, format and clinical context of patient data. In addition, data may be omitted in some cases. CLINICAL DECISIONS SHOULD BE BASED ON THE PRIMARY CLINICAL RECORDS. [employer] [facility]. provides no warranty or guarantee of the accuracy or completeness of information in this document.
[2024-04-29 12:22] LABS: Basophils Absolute Auto 0.1 10^3/uL (0.0-0.1); Basophils Percent Auto 0.5 % (0.2-2.0); Eosinophils Absolute Auto 0.2 10^3/uL (0.0-0.7); Eosinophils Percent Auto 1.8 % (0.9-7.0); Hematocrit 36.9 % (36.0-48.0); Hemoglobin 11.9 g/dL (12.0-16.0); Immature Granulocytes Abs Auto 0.02 10^3/uL (0.00-0.03); Immature Granulocytes Pct Auto 0.2 % (0.0-0.5); Lymphocytes Absolute Auto 1.4 10^3/uL (1.2-3.8); Lymphocytes Percent Auto 14.4 % (20.5-60.0); Mean Corpuscular HGB Conc 32.2 g/dL (29.9-35.2); Mean Corpuscular Hemoglobin 28.9 pg (26.7-34.0); Mean Corpuscular Volume 89.6 fL (81.0-99.0); Mean Platelet Volume 9.5 fL (9.5-13.5); Monocytes Absolute Auto 0.9 10^3/uL (0.3-0.8); Monocytes Percent Auto 8.6 % (1.7-12.0); Neutrophils Absolute Auto 7.3 10^3/uL (1.4-6.5); Neutrophils Percent Auto 74.5 % (43.0-75.0); Platelet Count 267 10^3/uL (150-450); Red Blood Count 4.12 10^6/uL (4.20-5.40); Red Cell Distribution Width 13.3 % (11.0-15.0); White Blood Count 9.8 10^3/uL (4.0-11.0)
[2024-04-29 12:50] LABS: Anion Gap 7.4; BUN Creatinine Ratio 11.6; Calcium 8.8 mg/dL (8.5-10.1); Carbon Dioxide 35.8 mmol/L (21.0-32.0); Chloride 101 mmol/L (98-107); Estimated GFR (African America >60 (>=60 mL/min/1.73m^2); Estimated GFR (Non-African Ame 58 (>=60 mL/min/1.73m^2); Glucose 99 mg/dL (74-106); Potassium 3.2 mmol/L (3.5-5.1); Sodium 141 mmol/L (136-145); Troponin I High Sensitivity 34.1 pg/mL (4.0-51.3)
[2024-04-29] MEDS: ASPIRIN 81 MG TAB.CHEW PO (12:50)
[2024-04-29] MEDS: NITROGLYCERIN 0.4 MG BOTTLE PO (12:50)
[2024-04-29] MEDS: POTASSIUM CHLORIDE 10 MEQ ER TABLET 40 MEQ PO (13:42)
--- NOTE | 2024-04-29 13:49 | ED.CHESTPAI1 ---
HPI - Chest Pain General Chief Complaint: Shortness of Breath/Dyspnea Stated Complaint: WEAKNESS Time Seen by Provider: 04/29/24 12:08 Source: patient Mode of arrival: ambulance History of Present Illness HPI narrative: cc - chest pain and SOB Patient complained of chest pain and some increased shortness of breath after breakfast today. Patient normally wears 6 L/min nasal cannula oxygen due to her underlying diagnosis of COPD. She also has coronary artery disease and acute kidney disease. She complained of chest pain they sent her [facility] She told me that she is taking Cipro but is not sure what it is for. She thought that she might have had the flu or COVID but tested negative for both. She is not sure if the Cipro supposed take care of that Related Data Home Medications ?Medication ?Instructions ?Recorded ?Confirmed alpha lipoic acid 600 mg capsule 600 mg PO TID 08/06/23 09/17/23 amantadine HCl 100 mg tablet 100 mg PO DAILY 08/06/23 09/17/23 aspirin 81 mg capsule 81 mg PO DAILY 08/06/23 09/17/23 atorvastatin 40 mg tablet 40 mg PO DAILY 08/06/23 09/17/23 cetirizine 10 mg tablet (24Hour 10 mg PO DAILY allergy symptoms 08/06/23 09/17/23 Allergy) furosemide 40 mg tablet (Lasix) 40 mg PO DAILY 08/06/23 09/17/23 levetiracetam 250 mg tablet 250 mg PO BID 08/06/23 09/17/23 (Keppra) levothyroxine 150 mcg capsule 150 mcg PO DAILY 08/06/23 09/17/23 omega-3 fatty acids 1,000 mg PO DAILY 08/06/23 09/17/23 oxcarbazepine 300 mg tablet 450 mg PO TID 08/06/23 09/18/23 potassium chloride 20 mEq 20 meq PO BID 08/06/23 09/17/23 tablet,extended release (K-Tab) guaifenesin 600 mg tablet, 600 mg PO BID PRN cough 09/15/23 09/17/23 extended release 12 hr (Mucinex) pregabalin 100 mg capsule (Lyrica) 200 mg PO TID 09/15/23 09/18/23 acetaminophen 325 mg tablet (Aphen) 650 mg PO Q6H PRN pain 09/16/23 09/17/23 insulin lispro 100 unit/mL 1 sliding scale dose subcut ACHS 09/16/23 09/17/23 subcutaneous pen (Humalog KwikPen (U-100) Insulin) Previous Rx's ?Medication ?Instructions ?Recorded cefdinir 300 mg capsule 600 mg (2 x 300 mg) PO DAILY 5 09/20/23 days #10 caps clindamycin HCl 300 mg capsule 300 mg PO Q6H 5 days #20 caps 09/20/23 prednisone 10 mg tablet 40 mg (4 x 10 mg) PO DAILY #32 tabs 09/20/23 levofloxacin 750 mg tablet 750 mg PO DAILY 5 days #5 tabs 04/29/24 Allergies Allergy/AdvReac Type Severity Reaction Status Date / Time Penicillins Allergy Severe Verified 08/06/23 17:57 Sulfa (Sulfonamide AdvReac Unknown Verified 08/06/23 19:01 Antibiotics) [facility] Medical History (Updated 04/29/24 @ 13:53 by Cristino Sharma) Chronic kidney disease ?N18.9 - Chronic kidney disease, unspecified (ICD-10) Pneumonia ?J18.9 - Pneumonia, unspecified organism (ICD-10) Acute respiratory distress ?R06.03 - Acute respiratory distress (ICD-10) Asthma exacerbation in COPD ?J44.1 - Chronic obstructive pulmonary disease with (acute) exacerbation (ICD-10) ?J45.901 - Unspecified asthma with (acute) exacerbation (ICD-10) COVID-19 ?U07.1 - COVID-19 (ICD-10) CKD stage 3b, GFR 30-44 ml/min ?N18.32 - Chronic kidney disease, stage 3b (ICD-10) CAD (coronary artery disease) ?I25.10 - Atherosclerotic heart disease of [place] coronary artery without angina pectoris (ICD-10) Hypertension ?I10 - Essential (primary) hypertension (ICD-10) Type 2 diabetes mellitus ?E11.9 - Type 2 diabetes mellitus without complications (ICD-10) Chronic hypoxic respiratory failure ?J96.11 - Chronic respiratory failure with hypoxia (ICD-10) Acute kidney injury ?N17.9 - Acute kidney failure, unspecified (ICD-10) COPD (chronic obstructive pulmonary disease) ?J44.9 - Chronic obstructive pulmonary disease, unspecified (ICD-10) Hypercalcemia ?E83.52 - Hypercalcemia (ICD-10) Right lower lobe pneumonia ?J18.9 - Pneumonia, unspecified organism (ICD-10) Hypotension ?I95.9 - Hypotension, unspecified (ICD-10) Respiratory failure ?J96.90 - Respiratory failure, unspecified, unspecified whether with hypoxia or hypercapnia (ICD-10) Nonrheumatic aortic (valve) insufficiency ?I35.1 - Nonrheumatic aortic (valve) insufficiency (ICD-10) Nausea ?R11.0 - Nausea (ICD-10) Weakness ?R53.1 - Weakness (ICD-10) Cough ?R05.9 - Cough, unspecified (ICD-10) Wheezing ?R06.2 - Wheezing (ICD-10) Shortness of breath ?R06.02 - Shortness of breath (ICD-10) Urinary retention ?R33.9 - Retention of urine, unspecified (ICD-10) Acute respiratory distress ?R06.03 - Acute respiratory distress (ICD-10) Sleep apnea ?G47.30 - Sleep apnea, unspecified (ICD-10) Vitamin D deficiency ?E55.9 - Vitamin D deficiency, unspecified (ICD-10) Hyperlipidemia ?E78.5 - Hyperlipidemia, unspecified (ICD-10) Hypothyroidism ?E03.9 - Hypothyroidism, unspecified (ICD-10) Neuropathy ?G62.9 - Polyneuropathy, unspecified (ICD-10) Myocardial infarction type 2 ?I21.A1 - Myocardial infarction type 2 (ICD-10) Acute kidney failure ?N17.9 - Acute kidney failure, unspecified (ICD-10) Pneumonia ?J18.9 - Pneumonia, unspecified organism (ICD-10) Acute cystitis without hematuria ?N30.00 - Acute cystitis without hematuria (ICD-10) Sepsis ?A41.9 - Sepsis, unspecified organism (ICD-10) Surgical History (Updated 09/17/23 @ 16:03 by Beatrice Hi) Hx of cholecystectomy ?Z90.49 - Acquired absence of other specified parts of digestive tract (ICD-10) H/O foot surgery ?Z98.890 - Other specified postprocedural states (ICD-10) H/O right heart catheterization ?Z98.890 - Other specified postprocedural states (ICD-10) H/O: hysterectomy ?Z90.710 - Acquired absence of both cervix and uterus (ICD-10) Previous back surgery ?Z98.890 - Other specified postprocedural states (ICD-10) History of hip surgery ?Z98.890 - Other specified postprocedural states (ICD-10) Family History (Updated 09/16/23 @ 00:14 by Johanny Berry) Mother Family history of CHF (congestive heart failure) Family history of COPD (chronic obstructive pulmonary disease) Family history of cancer Family history of hypertension Family history of myocardial infarction Social History (Updated 09/16/23 @ 00:15 by Johanny Berry) Within the past year, how often did you have a drink containing alcohol: never Score interpretation: A score less than 3 is consistent with normal alcohol consumption. Smoking status: Former smoker Non-prescribed substance use: denies use Previous occupational history: retired Highest level of school completed/degree received: some college, no degree Are you now , , , , never or living with a partner: In a typical week, how many times do you talk on the telephone with family, friends, or neighbors: 3 or more times per week How often do you get together with friends or relatives: 3 or more times per week How often do you attend mandaeism or lutheran services: never Do you belong to any clubs or organizations such as mandaeism groups unions, fraNeedly or athletic groups, or school groups: no Total score: 1 Score interpretation: A score of less than or equal to 1 indicates the most socially isolated. Little interest or pleasure in doing things: not at all Feeling down, depressed, or hopeless: not at all Feel stressed/tense/nervous/anxious/difficulty sleeping: not at all Do you think of yourself as: straight/heterosexual Gender Identity: female Exam Narrative Exam Narrative: Nurses notes and vital signs reviewed and patient is not hypoxic. afebrile General: Well-appearing and in no apparent distress. Skin: Warm, dry, no pallor noted. No rash. Head: Normocephalic, atraumatic. Eye: Pupils are equal, round and EOMI. No scleral icterus. Ears, Nose, Mouth, and Throat: TM are not visible bilaterally due to cerumen. no posterior oropharynx erythema or nasal mucosal hypertrophy, uvula is mid-line Oral mucosa is moist Cardiovascular: Regular Rate and Rhythm without murmur, gallop or rub. Respiratory: No accessory muscle use or respiratory distress. Lungs with bibasilar rhonchi as well as right sided Rales Musculoskeletal: normal ROM, no calf or popliteal tenderness, no lower extremity edema/swelling GI: Abdomen is soft, non-distended. Normal bowel sounds. No tenderness to palpation. No rebound, guarding, or rigidity noted. Neurological: A&O x4. No cranial nerve dysfunction observed. No truncal ataxia. Moves all extremities. Sensation intact. Psychiatric: Cooperative and interactive. Normal mood and affect. Constitutional Vital Signs, click to edit/add: Last Vital Signs Temp 98.2 F 04/29/24 12:03 Pulse 64 04/29/24 13:00 Resp 19 04/29/24 13:00 BP 125/51 04/29/24 12:54 Pulse Ox 93 L 04/29/24 13:00 O2 Del Method Nasal Cannula 04/29/24 12:03 O2 Flow Rate 6 04/29/24 12:03 Course Vital Signs Vital signs: Vital Signs Temperature 98.2 F 04/29/24 12:03 Pulse Rate 85 04/29/24 12:03 Respiratory Rate 26 H 04/29/24 12:03 Blood Pressure 172/78 H 04/29/24 12:03 Pulse Oximetry 93 L 04/29/24 12:03 Oxygen Delivery Method Nasal Cannula 04/29/24 12:03 Oxygen Delivery Flow Rate 6 04/29/24 12:03 Temperature 98.2 F 04/29/24 12:03 Pulse Rate 64 04/29/24 13:00 Respiratory Rate 19 04/29/24 13:00 Blood Pressure 125/51 04/29/24 12:54 Pulse Oximetry 93 L 04/29/24 13:00 Oxygen Delivery Method Nasal Cannula 04/29/24 12:03 Oxygen Delivery Flow Rate 6 04/29/24 12:03 MDM - Chest Pain MDM Narrative Medical decision making narrative: Patient was placed on school lunch monitor and EKG obtained. Blood drawn and sent for evaluation. White blood cell count normal at 9.8. BMP is unremarkable except for minimally decreased potassium 3.2. Troponin negative at 34 and BNP negative at 762. X-ray per radiologist = diffuse bilateral interstitial infiltrates, more prominent on the right side. Suspicious for infectious processes etiology. Underlying CHF is suspected. Patient is allergic to penicillin and sulfa [facility] for Levaquin with the first dose being given in the emergency department before discharge. Lab Data Attestation: I reviewed the patient's lab results. Labs: Lab Results 04/29/24 04/29/24 Range/Units 12:08 12:10 WBC 9.8 (4.0-11.0) 10^3/uL RBC 4.12 L (4.20-5.40) 10^6/uL Hgb 11.9 L (12.0-16.0) g/dL Hct 36.9 (36.0-48.0) % MCV 89.6 (81.0-99.0) fL MCH 28.9 (26.7-34.0) pg MCHC 32.2 (29.9-35.2) g/dL RDW 13.3 (11.0-15.0) % Plt Count 267 (150-450) 10^3/uL MPV 9.5 (9.5-13.5) fL Neut % (Auto) 74.5 (43.0-75.0) % Lymph % (Auto) 14.4 L (20.5-60.0) % [place] % (Auto) 8.6 (1.7-12.0) % Eos % (Auto) 1.8 (0.9-7.0) % Baso % (Auto) 0.5 (0.2-2.0) % Neut # (Auto) 7.3 H (1.4-6.5) 10^3/uL Lymph # (Auto) 1.4 (1.2-3.8) 10^3/uL [place] # (Auto) 0.9 H (0.3-0.8) 10^3/uL Eos # (Auto) 0.2 (0.0-0.7) 10^3/uL Baso # (Auto) 0.1 (0.0-0.1) 10^3/uL Abs Immat Gran (auto) 0.02 (0.00-0.03) 10^3/uL Imm/Tot Granulo (auto) 0.2 (0.0-0.5) % Sodium 141 (136-145) mmol/L Potassium 3.2 L (3.5-5.1) mmol/L Chloride 101 (98-107) mmol/L Carbon Dioxide 35.8 H (21.0-32.0) mmol/L Anion Gap 7.4 BUN 11.0 (7.0-18.0) mg/dL Creatinine 0.95 (0.55-1.02) mg/dL Est GFR ( Amer) >60 (>=60 mL/min/1.73m^2) Est GFR (Non-Af Amer) 58 L (>=60 mL/min/1.73m^2) BUN/Creatinine Ratio 11.6 Glucose 99 (74-106) mg/dL Calcium 8.8 (8.5-10.1) mg/dL Troponin I High Sens 34.1 (4.0-51.3) pg/mL NT-Pro-B Natriuret Pep 762.0 (<=900.0) pg/mL POC Glucose 109 H (74-106) mg/dL ECG Data Attestation: I personally reviewed and interpreted this ECG as follows: Interpretation: EKG interpretation: Emergency Department physician interpretation. Normal sinus rhythm at 59bpm. Nonspecific ST-T wave changes. no ST segment elevation or depression. Discharge Plan Discharge Chief Complaint: Shortness of Breath/Dyspnea Clinical Impression: Bilateral interstitial pneumonia, Acute infective exacerbation of chronic obstructive airway disease Patient Disposition: Home, Self-Care Time of Disposition Decision: 13:53 Prescriptions / Home Meds: New levofloxacin 750 mg tablet 750 mg PO DAILY 5 Days Qty: 5 0RF No Action amantadine HCl 100 mg tablet 100 mg PO DAILY atorvastatin 40 mg tablet 40 mg PO DAILY alpha lipoic acid 600 mg capsule 600 mg PO TID aspirin 81 mg capsule 81 mg PO DAILY levetiracetam [Keppra] 250 mg tablet 250 mg PO BID levothyroxine 150 mcg capsule 150 mcg PO DAILY omega-3 fatty acids Capsule 1,000 mg PO DAILY oxcarbazepine 300 mg tablet 450 mg PO TID potassium chloride [K-Tab] 20 mEq tablet extended release 20 meq PO BID cetirizine [24Hour Allergy] 10 mg tablet 10 mg PO DAILY furosemide [Lasix] 40 mg tablet 40 mg PO DAILY pregabalin [Lyrica] 100 mg capsule 200 mg PO TID guaifenesin [Mucinex] 600 mg tablet extended release 12hr 600 mg PO BID PRN (Reason: cough) acetaminophen [Aphen] 325 mg tablet 650 mg PO Q6H PRN (Reason: pain) insulin lispro [Humalog KwikPen Insulin] 100 unit/mL insulin pen 1 sliding scale dose subcut ACHS Rx Instructions: 150-200=3units; 201-250=5units; 251-300=8 units; 31-350=10units; 351-400=12units; if greater than give 15 units and call cefdinir 300 mg capsule 600 mg PO DAILY 5 Days Qty: 10 0RF clindamycin HCl 300 mg capsule 300 mg PO Q6H 5 Days Qty: 20 0RF prednisone 10 mg tablet 40 mg PO DAILY Qty: 32 0RF Rx Instructions: 4/day for 3 days, 3/day for 3 days, 2/day for 3 days, 1/day for 3 days, 1/2 /day for 4 days Print Language: Serbian Instructions: COPD (Chronic Obstructive Pulmonary Disease) (ED), Bacterial Pneumonia (ED) Referrals: SONG DICKENS DO [Primary Care Provider] - 1 week
[2024-04-29 14:32] LABS: Troponin I High Sensitivity 39.2 pg/mL (4.0-51.3)
[2024-04-29] MEDS: IPRATROPIUM/ALBUTEROL SULFATE 3 ML AMPUL.NEB IH (16:20)
[2024-04-29] MEDS: ACETAMINOPHEN 500 MG TABLET 1000 MG PO (17:22)
== END 2024-04-29 17:47 | disposition home or self-care (01) ==
PROVIDERS: Emergency Provider Emergency Medicine; PCP Family Medicine
DX: J84.9 Interstitial pulmonary disease, unspecified (principal); J44.1 Chronic obstructive pulmonary disease with (acute) exacerbation; R07.89 Other chest pain; R06.02 Shortness of breath; Z99.81 Dependence on supplemental oxygen
CPT/HCPCS: 36415; 71045; 80048; 82948; 83880; 84484; 85025; 93005; 94640; 99285

== ENCOUNTER 2024-05-06 12:39 | Emergency (ER) | payer MEDICARE, BC, SELFPAY ==
[2024-05-06 12:39] VITALS: BP 166/54; PULSE 74; TEMP 37.1; O2SAT 93; BMI 30.7
--- NOTE | 2024-05-06 12:47 | CT_ITS ---
The [address] [address] Patient Name: HILARIO CHARLES MRN: [id number] date: 1955 Sex: F Assigned Patient Location: ER Current Patient Location: ER Accession/Order Number: [id number] Exam Date: 05/06/2024 13:24 Report Date: 05/06/2024 13:26 At the request of: NOÉ BLACKMAN Procedure: CT cervical spine wo con CT CERVICAL SPINE WITHOUT CONTRAST WITH 3D RECONSTRUCTIONS: CLINICAL HISTORY: Posterior Neck and shoulder pain for 2 days. No known injury. COMPARISON: None TECHNIQUE: Spiral axial unenhanced images were obtained through the cervical spine. Sagittal, coronal and 3D volume-rendered reconstructions were also reviewed. This CT exam was performed using one or more following dose reduction techniques: Automated exposure control, adjustment of the mA and/or kV according to patient size, or use of iterative reconstruction technique. FINDINGS: No fracture. Moderate severe spondylosis C4-T2 with associated scattered endplate, uncovertebral and facet joint degenerative changes. No prevertebral soft tissue swelling is seen. Visualized lung apices demonstrate emphysematous changes and bibasilar scarring. CT/CT cervical spine wo con IMPRESSION: NO CERVICAL SPINE FRACTURE. MODERATELY SEVERE SPONDYLOSIS C4-T2. EMPHYSEMA. Impression dictated by: Rizwan Crump Jr. DCecyOCecy05/06/2024 1:26 PM Dictation Location: [employer] Electronically authenticated by: [id number] Y Date: 05/06/2024 13:26
--- OUTSIDE RECORDS SUMMARY | 2024-05-06 12:47 | XMS_ITS | CCD ---
Author Organization [facility] Care Team Providers Care Inside Polisher Name Role Phone DR ANA CRISTINA HI Admitting Unavailable JAVIER, DR ANA CRISTINA Garcia Consulting Unavailable DR ANA CRISTINA HI Attending Unavailable DR NETO ARAUZ Primary Care Unavailable Buster Ramirez Consulting Unavailable Neto Arauz Unavailable DO Neto Arauz Primary Care Provider MD Niranjan Hi Emergency Provider DO Lucian Bruno Admit Provider DO Lucian Bruno Attending Provider [phone] DO Neto Arauz Primary Care Provider MD Niranjan Hi Emergency Provider [phone] DO Lucian Bruno Admit Provider MD Ferdinand Norris Other Provider MD José Luis Fuentes Attending Provider [phone] Dr. Ferdinand Galdamez Attending Unava ilable DO Que Cam Emergency Provider DO Neto Arauz Primary Care Provider DO Neto Arauz Attending Provider Unavailable Primary Care Provider Unavailmiles e DO Neto Arauz Primary Care Provider MD Saturnino Cortés Emergency Provider [phone] MD Mejia Aaron Admit Provider MD Mejia Aaron Attending Provider [phone] DO Jaylan Child Attending Provider [phone] MD Frank Hudson Admit Provider MD Frank Hudson Attending Provider MD Herrera Kern Other Provider Neto Arauz DO Primary Care Provider DO Adán Arthur Primary Care Provider [phone] DO Adán Arthur Attending Provider [phone] DO Neto Arauz Attending Provider [phone] SUSAN REYES Attending Unavailable SUSAN REYES Attending Unavailable DO Neto Arauz Primary Care Provider DO Sandor Mcduffie Emergency Provider UnaMD Mejia Jarrett Admit Provider MD Mejia Aaron Attending Provider MD Yaakov Garcia Attending Provider [phone] MD Niranjan Hi Emergency Provider Neto Arauz DO Primary Care Provider [phone] JESSICA HI Attending Unavailable NETO ARAUZ Primary Care Unavailable FERDINAND GALDAMEZ Attending Unavailable NETO ARAUZ Primary Care Unavailable Sandor Mcduffie DO Emergency Provider Unavai Neto Avila DO Primary Care Provider [phone] Mejia Aaron MD Admit Provider Yaakov Garcia MD Attending Provider Adán Arthur DO Primary Care Provider Niranjan Hi MD Emergency Provider Neto Arauz DO Attending Provider [phone] KALEIGH NATION Referring Unavailable Neto Arauz DO Primary Care Provider [phone] Kaleigh Nation APRN Attending Provider [phone] Anderson Gould DO Emergency Provider Jenny Matias DOopher Admit Provider Clarence Matias DO Attending Provider Roberto Singh MD Other Provider [phone] [facility] Jus Perla MD Attending Provider [phone] Anderson Carlson MD Other Provider NETO ARAUZ Primary Care Physician Neto Arauz DO Primary Care Provider Neto Arauz DO Attending Provider [phone] Kaleigh Nation APRN Attending Provider [phone] [facility] Anderson Lerma Emergency Provider Clarence Matias DO Admit Provider Clarence Matias DO Attending Provider Roberto Singh MD Other Provider [facility] Emergency Provider [phone] Jus Perla MD Attending Provider [phone] Anderson Carlson MD Other Provider [phone] Jose Min PA-C Emergency Provider [phone] Adán Arthur DO Primary Care Provider [phone] Mejia Aaron MD Admit Provider Mejia Aaron MD Attending Provider [phone] KAELYN ROY Attending Unavailable Yaakov Garcia MD Attending Provider Kaleigh Nation Admitting Unavailable Kaleigh Nation Attending Unavailable Neto Arauz Primary Care Unavailable dAán Arthur Attending Unavailable Adán Arthur Primary Care [...] Penicillins Drug Allergy 08-18-19 24 Unknown Reaction [facility] Sulfonamides (antibiotic) (1 source) Sulfamethoxazole Drug Allergy 08-18-19 24 [facility] (19 sources) Penicillins; Translations: [PENICILLINS] Drug allergy (disorder) 01-22-20 14 Unknown Reaction [facility] (1 source) Sulfonamides (Antibiotic) Drug allergy (disorder) 01-22-20 14 [facility] (20 sources) Penicillin; Translations: [penicillin] Drug Allergy Unknown (qualifier value) [facility] (20 sources) Sulfamethoxazole Drug Allergy 07-25-19 24 [facility] (2 sources) Penicillins Drug Allergy 08-29-19 23 [facility] (3 sources) Sulfanilamide; Translations: [SULFANILAMIDE] Drug Allergy 06-29-19 24 [facility] Work Phone: (1 source) Penicillins Drug Allergy 08-29-19 23 [facility] (1 source) Sulfanilamide Allergy to substance 06-29-19 24 [facility] (2 sources) Sulfonamide; Translations: [sulfonamides] Drug allergy Unknown (qualifier value) [facility] (1 source) Penicillins Drug allergy (disorder) 03-15-19 25 [facility] (1 source) Sulfamethoxazole Drug Allergy 03-15-19 25 [facility] Medications Current Medications Medication Drug Class(es) [...] for 7 days pt will use the [facility] rx card Aug, Active cyclobenzaprine hydrochloride 10 mg oral tablet (20 sources) Muscle Relaxant Start: 01-25-2024 Start: 06-24-2023 End: 08-18-2023 Start: 07-17-2017 End: 08-29-2022 12 hr dextromethorphan hydrobromide 60 mg / guaiFENesin 1200 mg extended release oral tablet (20 sources) Uncompetitive D-rqckyt-T-aspartate Receptor Antagonist, Sigma-1 Agonist Start: 03-24-2024 Start: [...] take 1 puff(s) by inhalation once daily qdpbhucsrpe-sokgwtvou-bxletcio (TRELEGY-ELLIPTA) 100-62.5-25 mcg blister with device Inhale 1 puff once daily. 08/07/2023 Active Start: 08-07-2023 End: 10-05-2023 Start: 08-07-2023 End: 10-05-2023 Aizzclssmmi-Zlvndqtcc-Vbwxzb er (Trelegy Ellipta) 100-62.5-25 mcg blister with device Discontinued 1 INH INHALATION Daily August 06, 2023 11:00pm October 05, 2023 2:49pm Start: 08-07-2023 End: 10-05-2023 Ucwndrzecca-Ddzrnedwf-Fxacgz er (Trelegy Ellipta) 100-62.5-25 mcg blister with [...] ine & Supplies As directed May, Active Pierz 3 1000 MG (20 sources) Pierz 3 1000 MG as directed Orally Once a day Active omega 2-paw-utc-fish oil (Fish OiL) 1,000 mg (120 mg-180 mg) capsule (2 sources) take 1 capsule by mouth once daily omega 6-eqp-rwe-fish oil (Fish OiL) 1,000 mg (120 mg-180 mg) capsule Take 1 capsule (1,000 mg) by mouth once daily. Active omega-3 acid ethyl esters (chcf) 1000 mg oral capsule (1 source) Start: 03-22-2024 omega-3 polyunsaturated fatty acids ethyl esters 1000 mg Cap 1,000 mg = 1 cap(s), Oral, Refills(s) 0 Start Date: 03/22/24 Status: Ordered Pierz-3 Fatty Acids (11 sources) Start: 06-24-2023 take 1000 mg by mouth once daily Pierz-3 Fatty Acids Active 1000 MG PO Daily June 24, 2023 12:00am Pierz-3 Fatty Acids 1,000 mg capsule (5 sources) Start: 06-24-2023 take 1 capsule by mouth once daily Pierz-3 Fatty Acids 1,000 mg capsule Active 1000 [...] 10-14-2023 Estroven (4 sources) Estroven Not-Taking Fish Xwf-Lthnk-6-Vit C-Vit E (15 sources) Start: 07-17-2017 End: 06-24-2023 take 1 tablet by mouth once daily Fish Izv-Mktar-5-Vit C-Vit E Discontinued 1 TAB PO Daily July 17, 2017 12:00am June 24, 2023 2:24pm Start: 07-17-2017 take 1 tablet by kevin th once daily Fish Cqq-Ooyjl-9-Vit C-Vit E Active 1 TAB PO Daily July 17, 2017 12:00am Fish Avl-Jtpbt-1-Vit C-Vit E 2,000-650-12 mg/2.5 gram Emulsion In Packet (5 sources) Start: 07-17-2017 End: 06-24-2023 take 1 tablet by mouth once daily Fish Noo-Lsxix-4-Vit C-Vit E 2,000-650-12 mg/2.5 gram Emulsion In [...] do not swallow Start: 08-18-2023 Saliva Substit kristofer Combo No.9 (Biotene Dry Mouth Oral Rinse) [...] do not swallow Start: 04-19-2024 Saliva Substit kristofer Combo No.9 (Biotene Dry Mouth Oral Rinse) [...] mg (42) tablets,dose pack Active 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] Onset: 03-24-2021 Episodic Other aftercare (1 source) [facility] (current) use of oral hypoglycemic drugs; Translations: [CORRECTION USE ORAL HYPOGLYCEMIC DX] Onset: 03-24-2021 Episodic Other aftercare (2 sources) 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; Translations: [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 (Multi)] Onset: 01-06-2024 [...] Aerobic Cultureon 03-26-2024 Aerobic Culture Normal [facility] Comment on above: Performed By: #### A ALVINA, ####[id number] [place] [address] [facility] Anti-Xa UF Heparinon 025 Anti-Xa UF Heparin 0.16 [IU]/mL Low 0.30-0.70 [facility] Comment on above: Result Comment: Use the aPTT protocol when triglycerides are > 800 mg/dL, total bilirubin is > 20 mg/dL and/or patient has received a DOAC, Fondaparinux or LMWH within 72 hours AND baseline anti-Xa level is > 0.7 units/mLPERFORMED BY:[address] [place], [place] [id number] MEDICAL DIRECTORDOROTHY MENA M.D. Performed By: #### [facility] ####[address] [address] [facility] Bacteria identified Aer cx N om (Unsp spec)Ordered By: Mejia Aaron on 03-26-2024 Aerobic culture Abnormal [facility] Basic Metabolic Panelon 03-08 Anion gap [Moles/Vol] 8.5 mmol/L Normal 6.0-15.0 [facility] Comment on above: Performed By: #### C BC, BMP ####[address] [address] [facility] Calcium [Mass/Vol] 8.5 mg/dL Low 8.6-10.3 [facility] Comment on above: Performed By: #### C BC, BMP ####[address] [address] [facility] Chloride [Moles/Vol] 99 mmol/L Normal 98-107 [facility] Comment on above: Performed By: #### C BC, BMP ####[address] [address] [facility] CO2 [Moles/Vol] 38.6 mmol/L High 21.0-31.0 The [facility] Comment on above: Performed By: #### C BC, BMP ####[address] [address] [facility] Creatinine [Mass/Vol] 0.96 mg/dL Normal 0.60-1.20 [facility] Comment on above: Performed By: #### C BC, BMP ####[address] [address] [facility] Creatinine Clr Calc Pharmacy 56.09 Normal [facility] Comment on above: Result Comment: PERF ORMED BY:[address] [place], [place] [phone] MEDICAL DIRECTORDOROTHY MENA M.D. Performed By: #### C BC, BMP ####[address] [address] [facility] GFR/1.73 sq M.predicted MDRD (S/P/Bld) [Vol rate/Area] mL/min/{1.73_m2} Normal [facility] Comment on above: Performed By: #### C BC, BMP ####[address] [address] [facility] Glucose [Mass/Vol] 112 mg/dL High 70-100 [facility] Comment on above: Result Comment: [facility] Glucose Reference Range is dependent on time and content of last meal. Glucose of more than 200 mg/dL in a nonstressed, ambulatory subject supports the diagnosis of Diabetes Mellitus. ADA recommended reference range Performed By: #### C LEEANN, BMP ####[facility] [address] [place] [address] [facility] Potassium [Moles/Vol] 3.1 mmol/L Low 3.5-5.1 [facility] Comment on above: Performed By: #### C LEEANN, BMP ####[facility] [place] [address] [facility] Sodium [Moles/Vol] 143 mmol/L Normal 136-145 [facility] Comment on above: Performed By: #### C LEEANN, BMP ####[facility] [place] [address] [facility] Urea nitrogen [Mass/Vol] 14 mg/dL Normal 7-25 [facility] Comment on above: Performed By: #### C LEEANN, BMP ####[facility] [id number] [facility] Basophils Auto (Bld) [#/Vol] Ordered By: Mejia Aaron on 03-26-2024 Basophils (Bld) [#/Vol] Automated basophil count 0.0-0.2 [facility] Basophils/100 WBC Auto (Bld) Ordered By: Mejia Aaron on 03-26-2024 Basophils/100 WBC (Bld) Automated basophil % . [facility] Calcium [Mass/volume] in Ser um or PlasmaOrdered By: Mejia Aaron on 03-26-2024 Calcium [Mass/Vol] Calcium [Mass/volume ] in Serum or Plasma Low 8.6-10.3 [facility] Carbon dioxide, total [Moles /volume] in Serum or PlasmaOrdered By: Mejia Aaron on 03-26-2024 CO2 [Moles/Vol] Carbon dioxide, tota l [Moles/volume] in Serum or Plasma High 21.0-31.0 [facility] Chloride [Moles/volume] in S cait or PlasmaOrdered By: Mejia Aaron on 03-26-2024 Chloride [Moles/Vol] Chloride [Moles/vol ume] in Serum or Plasma 98-107 [facility] Complete Blood Count Auto Di ffon 03-26-2024 Basophils (Bld) [#/Vol] 0.1 10*3/uL Normal 0.0-0.2 [facility] Comment on above: Result Comment: PERF ORMED BY:[address] [place], [place] [id number] MEDICAL DIRECTORDOROTHY MENA M.D. Performed By: #### C LEEANN, BMP ####[address] Basophils/100 WBC (Bld) 0.9 % Normal . [facility] Comment on above: Performed By: #### C LEEANN, BMP ####[address] Eosinophils (Bld) [#/Vol] 0.3 10*3/uL Normal 0.0-0.45 [facility] Comment on above: Performed By: #### C LEEANN, BMP ####[address] Eosinophils/100 WBC (Bld) 4.1 % Normal . [facility] Comment on above: Performed By: #### C LEEANN, BMP ####[address] Erythrocyte distribution width (RBC) [Ratio] 14.8 % Normal 11.9-15.3 [facility] Comment on above: Performed By: #### C BC, BMP ####[id number] [facility] Hematocrit (Bld) [Volume fraction] 31.5 % Low 34.0-46.4 [facility] Comment on above: Performed By: #### C BC, BMP ####[address] Hemoglobin (Bld) [Mass/Vol] 10.3 g/dL Low 11.8-15.4 [facility] Comment on above: Performed By: #### C BC, BMP ####[address] Lymphocytes (Bld) [#/Vol] 1.7 10*3/uL Normal 1.00-4.8 [facility] Comment on above: Performed By: #### C BC, BMP ####[address] Lymphocytes/100 WBC (Bld) 27.6 % Normal . [facility] Comment on above: Performed By: #### C BC, BMP ####[address] MCH (RBC) [Entitic mass] 28.2 pg Normal 24.7-34.3 [facility] Comment on above: Performed By: #### C BC, BMP ####[address] MCV (RBC) [Entitic vol] 86.2 fL Normal 80-100 [facility] Comment on above: Performed By: #### C BC, BMP ####[address] Mean Corpuscular HGB Conc 32.6 g/dL Normal 32.0-35.0 [facility] Comment on above: Performed By: #### C BC, BMP ####[address] Monocytes (Bld) [#/Vol] 0.5 10*3/uL Normal 0.0-0.8 [facility] Comment on above: Performed By: #### C BC, BMP ####[address] Monocytes/100 WBC (Bld) 7.9 % Normal . [facility] Comment on above: Performed By: #### C BC, BMP ####[address] Neutrophils (Bld) [#/Vol] 3.8 10*3/uL Normal 1.8-7.7 [facility] Comment on above: Performed By: #### C BC, BMP ####[address] [address] [facility] Neutrophils/100 WBC (Bld) 59.5 % Normal . [facility] Comment on above: Performed By: #### C BC, BMP ####[id number] [place] [address] [facility] NRBC% 0.1 /100{WBC} Normal 0-0.5 [facility] Comment on above: Performed By: #### C BC, BMP ####[address] [address] [facility] Platelet mean volume (Bld) [Entitic vol] 7.4 fL Normal 6.3-10.7 [facility] Comment on above: Performed By: #### C BC, BMP ####[address] [address] [facility] Platelets (Bld) [#/Vol] 205 10*3/uL Normal 150-450 [facility] Comment on above: Performed By: #### C BC, BMP ####[address] [address] [facility] RBC (Bld) [#/Vol] 3.65 10*6/uL Normal 3.60-5.00 [facility] Comment on above: Performed By: #### C BC, BMP ####[address] [address] [facility] WBC (Bld) [#/Vol] 6.3 10*3/uL Normal 3.8-11.6 [facility] Comment on above: Performed By: #### C BC, BMP ####[id number] [facility] Creatinine [Mass/volume] in Serum or PlasmaOrdered By: Mejia Aaron on 03-26-2024 Creatinine [Mass/Vol] Creatinine [Mass/v olume] in Serum or Plasma 0.60-1.20 [facility] ECH echo transthoracicon ECH echo transthoracic Normal Th e [facility] Eosinophils Auto (Bld) [#/Vo l]Ordered By: Mejia Aaron on 03-26-2024 Eosinophils (Bld) [#/Vol] Automated eosinophil count 0.0-0.45 [facility] Eosinophils/100 WBC Auto (Bl d)Ordered By: Mejia Aaron on 03-26-2024 Eosinophils/100 WBC (Bld) Automated eosinophil % . [facility] Erythrocyte distribution wid th Auto (RBC) [Ratio]Ordered By: Mejia Aaron on 03-26-2024 Erythrocyte distribution width (RBC) [Ratio] Erythrocyte distribution width [Ratio] by Automated count 11.9-15.3 [facility] Glucose [Mass/volume] in Ser um or PlasmaOrdered By: Mejia Aaron on 03-26-2024 Glucose [Mass/Vol] Glucose [Mass/volume ] in Serum or Plasma High 70-100 [facility] Gram Stainon 03-26-2024 Microscopic observation Gram stain Nom (Unsp spec) Normal [facility] Comment on above: Performed By: #### A BANNER, GS ####[facility] [id number] Gram stain microscopyOrdered By: Mejia Aaron on 03-26-2024 Microscopic observation Gram stain Nom (Unsp spec) Gram stain microscopy [facility] Hematocrit Auto (Bld) [Volum e fraction]Ordered By: Mejia Aaron on 03-26-2024 Hematocrit (Bld) [Volume fraction] Hematocrit [Volume Fraction] of Blood by Automated count Low 34.0-46.4 [facility] Hemoglobin [Mass/volume] in BloodOrdered By: Mejia Aaron on 03-26-2024 Hemoglobin (Bld) [Mass/Vol] Hemoglobin [Mass/volume] in Blood Low 11.8-15.4 [facility] Heparin anti-Xa unfractionat edOrdered By: Mejia Aaron on 03-26-2024 Heparin unfractionated Chromogenic method Qn (PPP) Heparin anti-Xa unfractionated Low 0.30-0.70 [facility] Leukocytes [#/volume] correc hugh for nucleated erythrocytes in Blood by Automated counOrdered By: Mejia Aaron on 03-26-2024 WBC corrected for nucl RBC Auto (Bld) [#/Vol] Leukocytes [#/volume] corrected for nucleated erythrocytes in Blood by Automated coun 3.8-11.6 [facility] Lymphocytes Auto (Bld) [#/Vo l]Ordered By: Mejia Aaron on 03-26-2024 Lymphocytes (Bld) [#/Vol] Lymphocytes [#/volume] in Blood by Automated count 1.00-4.8 [facility] Lymphocytes/100 WBC Auto (Bl d)Ordered By: Mejia Aaron on 03-26-2024 Lymphocytes/100 WBC (Bld) Lymphocytes/100 leukocytes in Blood by Automated count . [facility] MCH Auto (RBC) [Entitic mass ]Ordered By: Mejia Aaron on 03-26-2024 MCH (RBC) [Entitic mass] MCH [Entitic mass] by Automated count 24.7-34.3 [facility] MCHC Auto (RBC) [Mass/Vol]Or dered By: Mejia Aaron on 03-26-2024 MCHC (RBC) [Mass/Vol] MCHC [Mass/volume] by Automated count 32.0-35.0 [facility] MCV Auto (RBC) [Entitic vol] Ordered By: Mejia Aaron on 03-26-2024 MCV (RBC) [Entitic vol] MCV [Entitic volume] by Automated count 80-100 [facility] Monocytes Auto (Bld) [#/Vol] Ordered By: Mejia Aaron on 03-26-2024 Monocytes (Bld) [#/Vol] Automated blood monocyte count 0.0-0.8 [facility] Monocytes/100 WBC Auto (Bld) Ordered By: Mejia Aaron on 03-26-2024 Monocytes/100 WBC (Bld) Automated monocyte % . [facility] Neutrophils Auto (Bld) [#/Vo l]Ordered By: Mejia Aaron on 03-26-2024 Neutrophils (Bld) [#/Vol] Neutrophils [#/volume] in Blood by Automated count 1.8-7.7 [facility] Neutrophils/100 WBC Auto (Bl d)Ordered By: Mejia Aaron on 03-26-2024 Neutrophils/100 WBC (Bld) Automated neutrophil % . [facility] No Panel InformationOrdered By: Mejia Aaron on 03-26-2024 > 60.0 mL/Min [facility] 56.09 [facility] Nucleated erythrocytes [Pres ence] in Blood by Automated countOrdered By: Mejia Aaron on 03-26-2024 Nucleated RBC Auto Ql (Bld) Nucleated erythrocytes [Presence] in Blood by Automated count 0-0.5 [facility] Platelet mean volume Auto (B ld) [Entitic vol]Ordered By: Mejia Aaron on 03-26-2024 Platelet mean volume (Bld) [Entitic vol] Platelet mean volume [Entitic volume] in Blood by Automated count 6.3-10.7 [facility] Platelets Auto (Bld) [#/Vol] Ordered By: Mejia Aaron on 03-26-2024 Platelets (Bld) [#/Vol] Platelets [#/volume] in Blood by Automated count 150-450 [facility] Potassium [Moles/volume] in Serum or PlasmaOrdered By: Mejia Aaron on 03-26-2024 Potassium [Moles/Vol] Potassium [Moles/v olume] in Serum or Plasma Low 3.5-5.1 [facility] RBC Auto (Bld) [#/Vol]Ordere d By: Mejia Aaron on 03-26-2024 RBC (Bld) [#/Vol] Erythrocytes [#/volu me] in Blood by Automated count 3.60-5.00 [facility] Serum or plasma anion gap de terminationOrdered By: Mejia Aaron on 03-26-2024 Anion gap [Moles/Vol] Serum or plasma an ion gap determination 6.0-15.0 [facility] Sodium [Moles/volume] in Ser um or PlasmaOrdered By: Mejia Aaron on 03-26-2024 Sodium [Moles/Vol] Sodium [Moles/volume ] in Serum or Plasma 136-145 [facility] Urea nitrogen [Mass/volume] in Serum or PlasmaOrdered By: Mejia Aaron on 03-26-2024 Urea nitrogen [Mass/Vol] Urea nitrogen [Mass/volume] in Serum or Plasma 09-28 [facility] WBC Auto (Bld) [#/Vol]Ordere d By: Mejia Aaron on 03-26-2024 WBC (Bld) [#/Vol] Leukocytes [#/volume ] in Blood by Automated count 3.8-11.6 [facility] A1C with Estimated Average G pricilan 2024 Glucose [Mass/Vol] 120 mg/dL Normal [facility] Comment on above: Result Comment: PERF ORMED BY:[address] [place], [place] [id number] MEDICAL DIRECTORDOROTHY MENA M.D. Performed By: #### A [facility]C [facility] eA ####[id number] [place] [address] [facility] HbA1c (Bld) [Mass fraction] 5.8 % High 4.3-5.6 [facility] Comment on above: Result Comment: Incr eased risk for diabetes: 5.7 - 6.4 diabetes: >6.4 glycemic control for adults with diabetes: <7.0 Performed By: #### A 1C [facility] eA ####[address] [address] [facility] Alanine aminotransferase [En zymatic activity/volume] in Serum or PlasmaOrdered By: Mejia Aaron on 2024 ALT [Catalytic activity/Vol] Alanine aminotransferase [Enzymatic activity/volume] in Serum or Plasma [facility] Albumin [Mass/volume] in Ser um or Plasma by Bromocresol green (BCG) dye binding methoOrdered By: Mejia Aaron on 2024 Albumin BCG dye [Mass/Vol] Albumin [Mass/volume] in Serum or Plasma by Bromocresol green (BCG) dye binding metho 3.5-5.7 [facility] Alkaline phosphatase [Enzyma tic activity/volume] in Serum or PlasmaOrdered By: Mejia Aaron on 2024 ALP [Catalytic activity/Vol] Alkaline phosphatase [Enzymatic activity/volume] in Serum or Plasma High 34-104 [facility] Anti-Xa UF Heparinon 025 Anti-Xa UF Heparin 0.31 [IU]/mL Normal 0.30-0.70 [facility] Comment on above: Result Comment: Use the aPTT protocol when triglycerides are > 800 mg/dL, total bilirubin is > 20 mg/dL and/or patient has received a DOAC, Fondaparinux or LMWH within 72 hours AND baseline anti-Xa level is > 0.7 units/mLPERFORMED BY:[address] [address] [address] [place], [place] [phone] MEDICAL DIRECTORDOROTHY MENA M.D. Performed By: #### [facility] ####[id number] [place] [address] [facility] Anti-Xa UF Heparin 0.24 [IU]/mL Low 0.30-0.70 [facility] Comment on above: Result Comment: Use the aPTT protocol when triglycerides are > 800 mg/dL, total bilirubin is > 20 mg/dL and/or patient has received a DOAC, Fondaparinux or LMWH within 72 hours AND baseline anti-Xa level is > 0.7 units/mLPERFORMED BY:[address] [place], [place] [phone] MEDICAL DIRECTORDOROTHY MENA M.D. Performed By: #### [facility] ####[address] [address] [facility] Aspartate aminotransferase [ Enzymatic activity/volume] in Serum or PlasmaOrdered By: Mejia Aaron on 2024 AST [Catalytic activity/Vol] Aspartate aminotransferase [Enzymatic activity/volume] in Serum or Plasma 13-39 [facility] Bilirubin.total [Mass/volume ] in Serum or PlasmaOrdered By: Mejia Aaron on 01-19-2025 Bilirubin [Mass/Vol] Bilirubin.total [Mass/volume] in Serum or Plasma 0.3-1.0 [facility] Blood estimated average gluc ose determination by estimation from glycated hemoglobinOrdered By: Mejia Aaron on 2024 Average glucose Estimated from glycated hemoglobin (Bld) [Mass/Vol] Glucose mean value [Mass/volume] in Blood Estimated from glycated hemoglobin [facility] Cholesterol [Mass/volume] in Serum or PlasmaOrdered By: Mejia Aaron on 2024 Cholesterol [Mass/Vol] Cholesterol [Mass /volume] in Serum or Plasma 140-200 [facility] Cholesterol in HDL [Mass/vol ume] in Serum or PlasmaOrdered By: Mejiasangeeta Aaron on 2024 Cholesterol in HDL [Mass/Vol] Serum or plasma high density lipoprotein (HDL) cholesterol measurement 23-92 [facility] Cholesterol in LDL Calc [Mas s/Vol]Ordered By: Mejia Aaron on 2024 Cholesterol in LDL [Mass/Vol] Cholesterol in LDL [Mass/volume] in Serum or Plasma by calculation 0-100 [facility] Cholesterol in VLDL Calc [Ma ss/Vol]Ordered By: Mejiasangeeta Aaron on 2024 Cholesterol in VLDL [Mass/Vol] Cholesterol in VLDL [Mass/volume] in Serum or Plasma by calculation [facility] Complete Blood Count Auto Di ffon 2024 Basophils (Bld) [#/Vol] 0.1 10*3/uL Normal 0.0-0.2 [facility] Comment on above: Result Comment: PERF ORMED BY:[address] [place], [place] [phone] MEDICAL DIRECTORDOROTHY MENA M.D. Performed By: #### C BC, PTT, PT ####[address] Basophils/100 WBC (Bld) 0.9 % Normal . [facility] Comment on above: Performed By: #### C BC, PTT, PT ####[place] [address] [address] Eosinophils (Bld) [#/Vol] 0.0 10*3/uL Normal 0.0-0.45 [facility] Comment on above: Performed By: #### C BC, PTT, PT ####[address] Eosinophils/100 WBC (Bld) 0.4 % Normal . [facility] Comment on above: Performed By: #### C BC, PTT, PT ####[address] Erythrocyte distribution width (RBC) [Ratio] 15.0 % Normal 11.9-15.3 [facility] Comment on above: Performed By: #### C BC, PTT, PT ####[address] Hematocrit (Bld) [Volume fraction] 33.5 % Low 34.0-46.4 [facility] Comment on above: Performed By: #### C BC, PTT, PT ####[address] Hemoglobin (Bld) [Mass/Vol] 11.2 g/dL Low 11.8-15.4 [facility] Comment on above: Performed By: #### C BC, PTT, PT ####[address] Lymphocytes (Bld) [#/Vol] 1.3 10*3/uL Normal 1.00-4.8 [facility] Comment on above: Performed By: #### C BC, PTT, PT ####[address] Lymphocytes/100 WBC (Bld) 19.0 % Normal . [facility] Comment on above: Performed By: #### C BC, PTT, PT ####[address] MCH (RBC) [Entitic mass] 29.3 pg Normal 24.7-34.3 [facility] Comment on above: Performed By: #### C BC, PTT, PT ####[place] [id number] [facility] MCV (RBC) [Entitic vol] 87.5 fL Normal 80-100 [facility] Comment on above: Performed By: #### C BC, PTT, PT ####[place] [id number] [facility] Mean Corpuscular HGB Conc 33.4 g/dL Normal 32.0-35.0 [facility] Comment on above: Performed By: #### C BC, PTT, PT ####[place] [id number] [facility] Monocytes (Bld) [#/Vol] 0.5 10*3/uL Normal 0.0-0.8 [facility] Comment on above: Performed By: #### C BC, PTT, PT ####[place] [id number] [facility] Monocytes/100 WBC (Bld) 7.3 % Normal . [facility] Comment on above: Performed By: #### C BC, PTT, PT ####[address] Neutrophils (Bld) [#/Vol] 5.1 10*3/uL Normal 1.8-7.7 [facility] Comment on above: Performed By: #### C BC, PTT, PT ####[place] [id number] [facility] Neutrophils/100 WBC (Bld) 72.4 % Normal . [facility] Comment on above: Performed By: #### C BC, PTT, PT ####[place] [id number] [facility] NRBC% 0.1 /100{WBC} Normal 0-0.5 [facility] Comment on above: Performed By: #### C BC, PTT, PT ####[place] [id number] [facility] Platelet mean volume (Bld) [Entitic vol] 8.0 fL Normal 6.3-10.7 The [facility] Comment on above: Performed By: #### C BC, PTT, PT ####[place] [id number] [facility] Platelets (Bld) [#/Vol] 205 10*3/uL Normal 150-450 [facility] Comment on above: Performed By: #### C BC, PTT, PT ####[place] [id number] [facility] RBC (Bld) [#/Vol] 3.83 10*6/uL Normal 3.60-5.00 The [facility] Comment on above: Performed By: #### C BC, PTT, PT ####[place] [id number] [facility] WBC (Bld) [#/Vol] 7.0 10*3/uL Normal 3.8-11.6 [facility] Comment on above: Performed By: #### C BC, PTT, PT ####[address] Comprehensive Metabolic Pane lelia 2024 Albumin [Mass/Vol] 3.7 g/dL Normal 3.5-5.7 [facility] Comment on above: Order Comment: FASTI NG Y Performed By: #### L IPID, CMP ####[address] Albumin/Globulin [Mass ratio] 1.5 {ratio} Normal [facility] Comment on above: Order Comment: FASTI NG Y Performed By: #### L IPID, CMP ####[place] [id number] [facility] ALP [Catalytic activity/Vol] 125 U/L High 34-104 [facility] Comment on above: Order Comment: FASTI NG Y Performed By: #### L IPID, CMP ####[address] ALT [Catalytic activity/Vol] 25 U/L Normal 7-52 [facility] Comment on above: Order Comment: FASTI NG Y Performed By: #### L IPID, CMP ####[address] [place] [id number] [facility] Anion gap [Moles/Vol] 10.5 mmol/L Normal 6.0-15.0 Th e [facility] Comment on above: Order Comment: FASTI NG Y Performed By: #### L IPID, CMP ####[place] [id number] [facility] AST [Catalytic activity/Vol] 23 U/L Normal 13-39 [facility] Comment on above: Order Comment: FASTI NG Y Performed By: #### L IPID, CMP ####[place] [id number] [facility] Bilirubin [Mass/Vol] 0.4 mg/dL Normal 0.3-1.0 [facility] Comment on above: Order Comment: FASTI NG Y Performed By: #### L IPID, CMP ####[place] [id number] [facility] Calcium [Mass/Vol] 8.7 mg/dL Normal 8.6-10.3 [facility] Comment on above: Order Comment: FASTI NG Y Performed By: #### L IPID, CMP ####[place] [id number] [facility] Chloride [Moles/Vol] 99 mmol/L Normal 98-107 [facility] Comment on above: Order Comment: FASTI NG Y Performed By: #### L IPID, CMP ####[place] [id number] [facility] CO2 [Moles/Vol] 38.2 mmol/L High 21.0-31.0 The [facility] Comment on above: Order Comment: FASTI NG Y Performed By: #### L IPID, CMP ####[place] [id number] [facility] Creatinine [Mass/Vol] 0.95 mg/dL Normal 0.60-1.20 [facility] Comment on above: Order Comment: FASTI NG Y Performed By: #### L IPID, CMP ####[address] [address] [facility] Creatinine Clr Calc Pharmacy 56.88 Normal [facility] Comment on above: Order Comment: FASTI NG Y Performed By: #### L IPID, CMP ####[place] [id number] [facility] GFR/1.73 sq M.predicted MDRD (S/P/Bld) [Vol rate/Area] mL/min/{1.73_m2} Normal [facility] Comment on above: Order Comment: FASTI NG Y Performed By: #### L IPID, CMP ####[address] [address] [facility] Globulin (S) [Mass/Vol] 2.4 g/dL Normal [facility] Comment on above: Order Comment: FASTI NG Y Performed By: #### L IPID, CMP ####[address] Glucose [Mass/Vol] 106 mg/dL High 70-100 [facility] Comment on above: Order Comment: FASTI NG Y Result Comment: [facility] Glucose Reference Range is dependent on time and content of last meal. Glucose of more than 200 mg/dL in a nonstressed, ambulatory subject supports the diagnosis of Diabetes Mellitus. ADA recommended reference range Performed By: #### L IPID, CMP ####[place] [id number] [facility] Potassium [Moles/Vol] 3.7 mmol/L Normal 3.5-5.1 [facility] Comment on above: Order Comment: FASTI NG Y Performed By: #### L IPID, CMP ####[address] [address] [facility] Protein [Mass/Vol] 6.1 g/dL Low 6.4-8.9 [facility] Comment on above: Order Comment: FASTI NG Y Performed By: #### L IPID, CMP ####[place] [id number] [facility] Sodium [Moles/Vol] 144 mmol/L Normal 136-145 [facility] Comment on above: Order Comment: FASTI NG Y Performed By: #### L IPID, CMP ####[facility] [address] [place] [address] [facility] Urea nitrogen [Mass/Vol] 17 mg/dL Normal 7-25 [facility] Comment on above: Order Comment: FASTI NG Y Performed By: #### L IPID, CMP ####[address] [place] [address] [facility] ECG 12 lead ECGon 2024 ECG 12 lead ECG Normal The [facility] Globulin Calc (S) [Mass/Vol] Ordered By: Mejia Aaron on 2024 Globulin (S) [Mass/Vol] Serum globulin measurement by calculation (mass/volume) [facility] Hemoglobin A1c/Hemoglobin.to claudia in BloodOrdered By: Mejia Aaron on 2024 HbA1c (Bld) [Mass fraction] Hemoglobin A1c percentage High 4.3-5.6 [facility] INR in Platelet poor plasma by Coagulation assayOrdered By: Mejia Aaron on 2024 INR Coag (PPP) [Relative time] INR in Platelet poor plasma by Coagulation assay [facility] Lipid Panelon 2024 Cholesterol [Mass/Vol] 158 mg/dL Normal 140-200 [facility] Comment on above: Order Comment: FASTI NG Y Result Comment: Chol less than 200 mg/dl low risk Chol 201-239 mg/dl borderline risk Chol 240 mg/dl and greater high risk Performed By: #### L IPID, CMP ####[facility] [place] [id number] [facility] Cholesterol in HDL [Mass/Vol] 60 mg/dL Normal 23-92 [facility] Comment on above: Order Comment: FASTI NG Y Result Comment: HDL CHOL ATP-III CLASSIFICATION Cardiovascular Risk HDL > or equal to 60 mg/dL LOW HDL < 40 mg/dL HIGH Performed By: #### L IPID, CMP ####[facility] [address] [place] [address] [facility] Cholesterol.total/Chol esterol in HDL [Mass ratio] 2.6 {ratio} Normal <5.0 [facility] Comment on above: Order Comment: FASTI NG Y Result Comment: PERF ORMED BY:[address] [place], [place] [phone] MEDICAL DIRECTORDOROTHY MENA M.D. Performed By: #### L IPID, CMP ####[place] [id number] [facility] LDL Cholesterol,Calculated 77 mg/dL Normal 0-100 [facility] Comment on above: Order Comment: FASTI NG Y Result Comment: LDL ATP III CLASSIFICATION LDL less than 100 mg/dL Optimal LDL 100-129 mg/dL Near or above optimal LDL 130-159 mg/dL Borderline high LDL 160-189 mg/dL High LDL greater than 189 mg/dL Very high Performed By: #### L IPID, CMP ####[place] [id number] [facility] Triglyceride w/Reflex 104 mg/dL Normal 0-149 [facility] Comment on above: Order Comment: FASTI NG Y Result Comment: TRIG ATP III CLASSIFICATION TRIG less than 150 mg/dL Normal TRIG 150-199 mg/dL Borderline high TRIG 200-500 mg/dL High TRIG greater than 500 mg/dL Very high Standard traceable to the Center for Disease Conrtrol and Prevention (CDC) test method. Performed By: #### L IPID, CMP ####[place] [id number] [facility] VLDL CHOLESTEROL 20 mg/dL Normal [facility] Comment on above: Order Comment: FASTI NG Y Performed By: #### L IPID, CMP ####[facility] [place] [address] [place] Partial Thromboplastin Timeo n 2024 aPTT Coag (Bld) [Time] 44.0 s High 25.1-36.5 Th e [facility] Comment on above: Result Comment: A he matocrit value greater than 55% may lead to inaccurate results in coagulation testing. Patients having hematocrit values >55% require a special collection tube for coagulation studies. Please contact the laboratory at [phone] for redraw instructions.PERFORMED BY:[facility] [place], [place] [phone] MEDICAL DIRECTORDOROTHY MENA M.D. Performed By: #### C BC, PTT, PT ####[facility] [place] [address] [facility] Protein [Mass/volume] in Ser um or PlasmaOrdered By: Mejia Araon on 2024 Protein [Mass/Vol] Protein [Mass/volume ] in Serum or Plasma Low 6.4-8.9 [facility] Prothrombin Time INRon 03-25 INR Coag (PPP) [Relative time] 1.0 {INR} Normal [facility] Comment on above: Result Comment: [...] Performed By: #### C BC, PTT, PT ####[address] [place] [address] [facility] PT Coag (PPP) [Time] 11.8 s Normal 9.0-12.9 [facility] Comment on above: Result Comment: A he matocrit value greater than 55% may lead to inaccurate results in coagulation testing. Patients having hematocrit values >55% require a special collection tube for coagulation studies. Please contact the laboratory at [phone] for redraw instructions. Performed By: #### C BC, PTT, PT ####[facility] [place] [address] [facility] Prothrombin time (PT)Ordered By: Mejia Aaron on 2024 PT Coag (PPP) [Time] Prothrombin time (PT) 9.0- 12.9 [facility] Serum or plasma albumin/glob ulin mass ratioOrdered By: Mejia Aaron on 01-19-2025 Albumin/Globulin [Mass ratio] Serum or plasma albumin/globulin mass ratio [facility] Serum or plasma total choles terol/high density lipoprotein (HDL) cholesterol mass ratOrdered By: Mejia Aaron on 2024 Cholesterol.total/Chol esterol in HDL [Mass ratio] Serum or plasma total cholesterol/high density lipoprotein (HDL) cholesterol mass rat <5.0 [facility] Triglyceride [Mass/volume] i n Serum or PlasmaOrdered By: Mejia Aaron on 2024 Triglyceride [Mass/Vol] Triglyceride [Mass/volume] in Serum or Plasma 0-149 [facility] Troponin I High Sensitivityo n 2024 Troponin I High Sensitivity 801 Off scale high 0-15 [facility] Comment on above: Result Comment: Rosit ical Result : Called to and read back by: RODERICK HA at: 2024 06:07:32 by:[id number] The Troponin units of report have been changed to meet the Chest Pain Accreditation requirement, element EC5.M1l2. Troponin units are changed from pg/ml to ng/L. Also, the decimal is removed and results are in whole numbers.PERFORMED BY:[facility] [place] [address] [place], [place] [phone] MEDICAL DIRECTORDOROTHY MENA M.D. Performed By: #### H S TROP ####[facility] [place] [address] [facility] Troponin I.cardiac [Mass/vol ume] in Serum or Plasma by Detection limit <= 0.01 ng/Ordered By: Mejia Aaron on 2024 Troponin I.cardiac DL <= 0.01 ng/mL [Mass/Vol] Troponin I.cardiac [Mass/volume] in Serum or Plasma by Detection limit <= 0.01 ng/ Critically high 0-15 [facility] aPTT in Platelet poor plasma by Coagulation assayOrdered By: Mejia Aaron on 2024 aPTT Coag (PPP) [Time] Activated partial thromboplastin time (aPTT) in platelet poor plasma by coagulation a High 25.1-36.5 [facility] Alanine aminotransferase [En zymatic activity/volume] in Serum or PlasmaOrdered By: Jose Min on 03-24-2024 ALT [Catalytic activity/Vol] Alanine aminotransferase [Enzymatic activity/volume] in Serum or Plasma 7-52 [facility] Albumin [Mass/volume] in Ser um or Plasma by Bromocresol green (BCG) dye binding methoOrdered By: Jose Min on 03-24-2024 Albumin BCG dye [Mass/Vol] Albumin [Mass/volume] in Serum or Plasma by Bromocresol green (BCG) dye binding metho 3.5-5.7 [facility] Alkaline phosphatase [Enzyma tic activity/volume] in Serum or PlasmaOrdered By: Jose Min on 03-24-2024 ALP [Catalytic activity/Vol] Alkaline phosphatase [Enzymatic activity/volume] in Serum or Plasma High 34-104 [facility] Anti-Xa UF Heparinon 025 Anti-Xa UF Heparin 0.55 [IU]/mL Normal 0.30-0.70 [facility] Comment on above: Result Comment: Use the aPTT protocol when triglycerides are > 800 mg/dL, total bilirubin is > 20 mg/dL and/or patient has received a DOAC, Fondaparinux or LMWH within 72 hours AND baseline anti-Xa level is > 0.7 units/mLPERFORMED BY:[address] [place], [place] [phone] MEDICAL DIRECTORDOROTHY MENA M.D. Performed By: #### U [facility] ####[address] [address] [facility] Anti-Xa UF Heparin <0.04 Low 0.30-0.70 [facility] Comment on above: Result Comment: Use the aPTT protocol when triglycerides are > 800 mg/dL, total bilirubin is > 20 mg/dL and/or patient has received a DOAC, Fondaparinux or LMWH within 72 hours AND baseline anti-Xa level is > 0.7 units/mLPERFORMED BY:[address] [place], [place] [phone] MEDICAL DIRECTORMOBRIANNA Lerma.D. Performed By: #### U FHEP ####[facility] [id number] [place] [id number] [facility] Arterial Blood Gason 025 ABG Base Excess 6.2 mmol/L High -3.0-3.0 [facility] Comment on above: Performed By: #### A BG ####Point of Care testing, ABG Frac Inspired O2 44 % Normal [facility] Comment on above: Performed By: #### A BG ####Point of Care testing, ABG Oxygen Content 7.1 mmol/L Normal 6.6-9.7 [facility] Comment on above: Performed By: #### A BG ####Point of Care testing, ABG Oxygen Saturation 95.9 % Normal 95.0-100.0 [facility] Comment on above: Performed By: #### A BG ####Point of Care testing, ABG PCO2 44.6 mm[Hg] Normal 35.0-45.0 [facility] Comment on above: Performed By: #### A BG ####Point of Care testing, ABG PH 7.46 High 7.35-7.45 [facility] Comment on above: Performed By: #### A BG ####Point of Care testing, ABG PO2 76.9 mm[Hg] Low 80.0-100.0 [facility] Comment on above: Performed By: #### A BG ####Point of Care testing, CO2 [Moles/Vol] 32.2 mmol/L High 23.0-27.0 [facility] Comment on above: Performed By: #### A BG ####Point of Care testing, HCO3 (Bld) [Moles/Vol] 30.8 mmol/L High 23.0-29.0 T [facility] Comment on above: Performed By: #### A BG ####Point of Care testing, Oxygen Device Nasal Cannula Normal [facility] Comment on above: Performed By: #### A BG ####Point of Care testing, Respiratory Critical Normal [facility] Comment on above: Result Comment: Crit ical Value called on: 03/24/2024 at 14:06PERFORMED BY:[address] [place], [place] [phone] MEDICAL DIRECTORDOROTHY MENA M.D. Performed By: #### A BG ####Point of Care testing, VBG Draw Site Left Radial Normal [facility] Comment on above: Performed By: #### A BG ####Point of Care testing, Aspartate aminotransferase [ Enzymatic activity/volume] in Serum or PlasmaOrdered By: Jose Min on 03-24-2024 AST [Catalytic activity/Vol] Aspartate aminotransferase [Enzymatic activity/volume] in Serum or Plasma 13-39 [facility] B-Type Natriuretic Peptideon 03-24-2024 Natriuretic peptide B (Bld) [Mass/Vol] 1865.0 pg/mL High 5-100 [facility] Comment on above: Result Comment: PERF ORMED BY:[address] [place], [place] [phone] MEDICAL DIRECTORDOROTHY MENA M.D. Performed By: #### B PROCEDURES RN, PTT, CUBLD, PT, CBC, HS TROP, CMP, CK ####[facility] [address] [place] [address] [facility] Basophils Auto (Bld) [#/Vol] Ordered By: Jose Min on 03-24-2024 Basophils (Bld) [#/Vol] Automated basophil count 0.0-0.2 [facility] Basophils/100 WBC Auto (Bld) Ordered By: Jose Min on 03-24-2024 Basophils/100 WBC (Bld) Automated basophil % . [facility] Bilirubin.total [Mass/volume ] in Serum or PlasmaOrdered By: Jose Min on 03-24-2024 Bilirubin [Mass/Vol] Bilirubin.total [Mass/volume] in Serum or Plasma 0.3-1.0 [facility] BioFire Not Detectedon 03-24 BioFire Not Detected Not detected Normal Not Detecte [facility] Comment on above: Result Comment: This is a duplicate RP2.1 COVID (PCR) result to be used for statistical tracking purpose only.PERFORMED BY:[address]LE[address], [place] [phone] MEDICAL DIRECTORDOROTHY MENA M.D. Performed By: #### R PATY PANEL UPP., BIOFIRECOVNOTDE ####[place] [id number] [facility] Blood Cultureon 03-24-2024 Bacteria identified Cx Nom (Bld) NO GROWTH 5 DAYS PERFORMED BY: [place] [id number] PATHOLOGIST [employer]VERTISING [employer] WORKER DOROTHY MENA M.D. Normal [facility] Comment on above: Performed By: #### B PROCEDURES RN, PTT, CUBLD, PT, CBC, HS TROP, CMP, CK ####[place] [id number] [facility] Bacteria identified Cx Nom (Bld) NO GROWTH 5 DAYS PERFORMED BY: [address] [address] PATHOLOGIST ADVERTISING LAYOUT WORKER DOROTHY MENA M.D. Normal [facility] Comment on above: Performed By: #### B PROCEDURES RN, PTT, CUBLD, PT, CBC, HS TROP, CMP, CK ####[place] [id number] [facility] COVID-19 Detected/Not Detect edOrdered By: Jose Min on 03-24-2024 SARS-CoV-2 (COVID-19) RNA MITCHELL+non-probe Ql (Nph) Not detected Not Detecte [facility] CT angio chest PE protocolon 03-24-2024 CT angio chest PE protocol Normal [facility] Calcium [Mass/volume] in Ser um or PlasmaOrdered By: Jose Min on 03-24-2024 Calcium [Mass/Vol] Calcium [Mass/volume ] in Serum or Plasma Low 8.6-10.3 [facility] Carbon dioxide, total [Moles /volume] in Serum or PlasmaOrdered By: Jose Min on 03-24-2024 CO2 [Moles/Vol] Carbon dioxide, tota l [Moles/volume] in Serum or Plasma High 21.0-31.0 [facility] Chloride [Moles/volume] in S cait or PlasmaOrdered By: Jose Min on 03-24-2024 Chloride [Moles/Vol] Chloride [Moles/vol ume] in Serum or Plasma 98-107 [facility] Complete Blood Count Auto Di ffon 03-24-2024 Basophils (Bld) [#/Vol] 0.0 10*3/uL Normal 0.0-0.2 [facility] Comment on above: Result Comment: PERF ORMED BY:[address] [place], [place] [phone] MEDICAL DIRECTORDOROTHY MENA M.D. Performed By: #### B PROCEDURES RN, PTT, CUBLD, PT, CBC, HS TROP, CMP, CK ####[address] Basophils/100 WBC (Bld) 0.7 % Normal . [facility] Comment on above: Performed By: #### B PROCEDURES RN, PTT, CUBLD, PT, CBC, HS TROP, CMP, CK ####[address] Eosinophils (Bld) [#/Vol] 0.3 10*3/uL Normal 0.0-0.45 [facility] Comment on above: Performed By: #### B PROCEDURES RN, PTT, CUBLD, PT, CBC, HS TROP, CMP, CK ####[place] [id number] [facility] Eosinophils/100 WBC (Bld) 4.6 % Normal . [facility] Comment on above: Performed By: #### B PROCEDURES RN, PTT, CUBLD, PT, CBC, HS TROP, CMP, CK ####[address] Erythrocyte distribution width (RBC) [Ratio] 15.1 % Normal 11.9-15.3 [facility] Comment on above: Performed By: #### B PROCEDURES RN, PTT, CUBLD, PT, CBC, HS TROP, CMP, CK ####[address] Hematocrit (Bld) [Volume fraction] 33.2 % Low 34.0-46.4 [facility] Comment on above: Performed By: #### B PROCEDURES RN, PTT, CUBLD, PT, CBC, HS TROP, CMP, CK ####[address] Hemoglobin (Bld) [Mass/Vol] 11.0 g/dL Low 11.8-15.4 [facility] Comment on above: Performed By: #### B PROCEDURES RN, PTT, CUBLD, PT, CBC, HS TROP, CMP, CK ####[address] Lymphocytes (Bld) [#/Vol] 0.7 10*3/uL Low 1.00-4.8 [facility] Comment on above: Performed By: #### B PROCEDURES RN, PTT, CUBLD, PT, CBC, HS TROP, CMP, CK ####[address] Lymphocytes/100 WBC (Bld) 9.6 % Normal . [facility] Comment on above: Performed By: #### B PROCEDURES RN, PTT, CUBLD, PT, CBC, HS TROP, CMP, CK ####[address] MCH (RBC) [Entitic mass] 28.5 pg Normal 24.7-34.3 [facility] Comment on above: Performed By: #### B PROCEDURES RN, PTT, CUBLD, PT, CBC, HS TROP, CMP, CK ####[address] MCV (RBC) [Entitic vol] 86.5 fL Normal 80-100 [facility] Comment on above: Performed By: #### B PROCEDURES RN, PTT, CUBLD, PT, CBC, HS TROP, CMP, CK ####[address] Mean Corpuscular HGB Conc 33.0 g/dL Normal 32.0-35.0 [facility] Comment on above: Performed By: #### B PROCEDURES RN, PTT, CUBLD, PT, CBC, HS TROP, CMP, CK ####[address] Monocytes (Bld) [#/Vol] 0.4 10*3/uL Normal 0.0-0.8 [facility] Comment on above: Performed By: #### B PROCEDURES RN, PTT, CUBLD, PT, CBC, HS TROP, CMP, CK ####[address] Monocytes/100 WBC (Bld) 17.25 % Normal 0.00-20.00 [facility] Comment on above: Performed By: #### B PROCEDURES RN, PTT, CUBLD, PT, CBC, HS TROP, CMP, CK ####[address] Monocytes/100 WBC (Bld) 5.2 % Normal . [facility] Comment on above: Performed By: #### B PROCEDURES RN, PTT, CUBLD, PT, CBC, HS TROP, CMP, CK ####[address] Neutrophils (Bld) [#/Vol] 5.8 10*3/uL Normal 1.8-7.7 [facility] Comment on above: Performed By: #### B PROCEDURES RN, PTT, CUBLD, PT, CBC, HS TROP, CMP, CK ####[address] Neutrophils/100 WBC (Bld) 79.9 % Normal . [facility] Comment on above: Performed By: #### B PROCEDURES RN, PTT, CUBLD, PT, CBC, HS TROP, CMP, CK ####[address] NRBC% 0.0 /100{WBC} Normal 0-0.5 [facility] Comment on above: Performed By: #### B PROCEDURES RN, PTT, CUBLD, PT, CBC, HS TROP, CMP, CK ####[address] Platelet mean volume (Bld) [Entitic vol] 7.8 fL Normal 6.3-10.7 [facility] Comment on above: Performed By: #### B PROCEDURES RN, PTT, CUBLD, PT, CBC, HS TROP, CMP, CK ####[address] Platelets (Bld) [#/Vol] 209 10*3/uL Normal 150-450 [facility] Comment on above: Performed By: #### B PROCEDURES RN, PTT, CUBLD, PT, CBC, HS TROP, CMP, CK ####[address] RBC (Bld) [#/Vol] 3.84 10*6/uL Normal 3.60-5.00 [facility] Comment on above: Performed By: #### B PROCEDURES RN, PTT, CUBLD, PT, CBC, HS TROP, CMP, CK ####[address] WBC (Bld) [#/Vol] 7.3 10*3/uL Normal 3.8-11.6 [facility] Comment on above: Performed By: #### B PROCEDURES RN, PTT, CUBLD, PT, CBC, HS TROP, CMP, CK ####[address] Comprehensive Metabolic Pane lelia 03-24-2024 Albumin [Mass/Vol] 3.7 g/dL Normal 3.5-5.7 [facility] Comment on above: Performed By: #### B PROCEDURES RN, PTT, CUBLD, PT, CBC, HS TROP, CMP, CK ####[address] Albumin/Globulin [Mass ratio] 1.4 {ratio} Normal [facility] Comment on above: Performed By: #### B PROCEDURES RN, PTT, CUBLD, PT, CBC, HS TROP, CMP, CK ####[address] ALP [Catalytic activity/Vol] 135 U/L High 34-104 [facility] Comment on above: Performed By: #### B PROCEDURES RN, PTT, CUBLD, PT, CBC, HS TROP, CMP, CK ####[address] ALT [Catalytic activity/Vol] 27 U/L Normal 7-52 [facility] Comment on above: Performed By: #### B PROCEDURES RN, PTT, CUBLD, PT, CBC, HS TROP, CMP, CK ####[address] Anion gap [Moles/Vol] 8.3 mmol/L Normal 6.0-15.0 [facility] Comment on above: Performed By: #### B PROCEDURES RN, PTT, CUBLD, PT, CBC, HS TROP, CMP, CK ####[address] AST [Catalytic activity/Vol] 27 U/L Normal 13-39 [facility] Comment on above: Performed By: #### B PROCEDURES RN, PTT, CUBLD, PT, CBC, HS TROP, CMP, CK ####[address] Bilirubin [Mass/Vol] 0.5 mg/dL Normal 0.3-1.0 [facility] Comment on above: Performed By: #### B PROCEDURES RN, PTT, CUBLD, PT, CBC, HS TROP, CMP, CK ####[address] Calcium [Mass/Vol] 8.3 mg/dL Low 8.6-10.3 [facility] Comment on above: Performed By: #### B PROCEDURES RN, PTT, CUBLD, PT, CBC, HS TROP, CMP, CK ####[address] Chloride [Moles/Vol] 100 mmol/L Normal 98-107 [facility] Comment on above: Performed By: #### B PROCEDURES RN, PTT, CUBLD, PT, CBC, HS TROP, CMP, CK ####[place] [id number] [place] [id number] [facility] CO2 [Moles/Vol] 37.6 mmol/L High 21.0-31.0 [facility] Comment on above: Performed By: #### B PROCEDURES RN, PTT, CUBLD, PT, CBC, HS TROP, CMP, CK ####[place] [id number] Creatinine [Mass/Vol] 0.94 mg/dL Normal 0.60-1.20 [facility] Comment on above: Performed By: #### B PROCEDURES RN, PTT, CUBLD, PT, CBC, HS TROP, CMP, CK ####[place] [id number] Creatinine Clr Calc Pharmacy 58.85 Normal [facility] Comment on above: Result Comment: PERF ORMED BY:[address] [place], [place] [phone] MEDICAL DIRECTORDOROTHY MENA M.D. Performed By: #### B PROCEDURES RN, PTT, CUBLD, PT, CBC, HS TROP, CMP, CK ####[place] [id number] [facility] GFR/1.73 sq M.predicted MDRD (S/P/Bld) [Vol rate/Area] mL/min/{1.73_m2} Normal [facility] Comment on above: Performed By: #### B PROCEDURES RN, PTT, CUBLD, PT, CBC, HS TROP, CMP, CK ####[place] [id number] [facility] Globulin (S) [Mass/Vol] 2.7 g/dL Normal [facility] Comment on above: Performed By: #### B PROCEDURES RN, PTT, CUBLD, PT, CBC, HS TROP, CMP, CK ####[place] [id number] [facility] Glucose [Mass/Vol] 100 mg/dL Normal 70-100 [facility] Comment on above: Result Comment: [facility] Glucose Reference Range is dependent on time and content of last meal. Glucose of more than 200 mg/dL in a nonstressed, ambulatory subject supports the diagnosis of Diabetes Mellitus. ADA recommended reference range Performed By: #### B PROCEDURES RN, PTT, CUBLD, PT, CBC, HS TROP, CMP, CK ####[address] Potassium [Moles/Vol] 3.9 mmol/L Normal 3.5-5.1 [facility] Comment on above: Performed By: #### B PROCEDURES RN, PTT, CUBLD, PT, CBC, HS TROP, CMP, CK ####[address] Protein [Mass/Vol] 6.4 g/dL Normal 6.4-8.9 [facility] Comment on above: Performed By: #### B PROCEDURES RN, PTT, CUBLD, PT, CBC, HS TROP, CMP, CK ####[address] Sodium [Moles/Vol] 142 mmol/L Normal 136-145 [facility] Comment on above: Performed By: #### B PROCEDURES RN, PTT, CUBLD, PT, CBC, HS TROP, CMP, CK ####[address] Urea nitrogen [Mass/Vol] 12 mg/dL Normal 7-25 [facility] Comment on above: Performed By: #### B PROCEDURES RN, PTT, CUBLD, PT, CBC, HS TROP, CMP, CK ####[address] Creatine Kinaseon 03-24-2024 CK [Catalytic activity/Vol] 167 U/L Normal 30-223 [facility] Comment on above: Performed By: #### B PROCEDURES RN, PTT, CUBLD, PT, CBC, HS TROP, CMP, CK ####[address] Creatine kinase [Enzymatic a ctivity/volume] in Serum or PlasmaOrdered By: Jose Min on 03-24-2024 CK [Catalytic activity/Vol] Creatine kinase [Enzymatic activity/volume] in Serum or Plasma 30-223 [facility] Creatinine [Mass/volume] in Serum or PlasmaOrdered By: Jose Min on 03-24-2024 Creatinine [Mass/Vol] Creatinine [Mass/v olume] in Serum or Plasma 0.60-1.20 [facility] ECG 12 lead ECGon 03-24-2024 ECG 12 lead ECG Normal [facility] Eosinophils Auto (Bld) [#/Vo l]Ordered By: Jose Min on 03-24-2024 Eosinophils (Bld) [#/Vol] Automated eosinophil count 0.0-0.45 [facility] Eosinophils/100 WBC Auto (Bl d)Ordered By: Jose Min on 03-24-2024 Eosinophils/100 WBC (Bld) Automated eosinophil % . [facility] Erythrocyte distribution wid th Auto (RBC) [Ratio]Ordered By: Jose Min on 03-24-2024 Erythrocyte distribution width (RBC) [Ratio] Erythrocyte distribution width [Ratio] by Automated count 11.9-15.3 [facility] Globulin Calc (S) [Mass/Vol] Ordered By: Jose Min on 03-24-2024 Globulin (S) [Mass/Vol] Serum globulin measurement by calculation (mass/volume) [facility] Glucose [Mass/volume] in Ser um or PlasmaOrdered By: Jose Min on 03-24-2024 Glucose [Mass/Vol] Glucose [Mass/volume ] in Serum or Plasma 70-100 [facility] Hematocrit Auto (Bld) [Volum e fraction]Ordered By: Jose Min on 03-24-2024 Hematocrit (Bld) [Volume fraction] Hematocrit [Volume Fraction] of Blood by Automated count Low 34.0-46.4 [facility] Hemoglobin [Mass/volume] in BloodOrdered By: Jose Min 03-24-2024 Hemoglobin (Bld) [Mass/Vol] Hemoglobin [Mass/volume] in Blood Low 11.8-15.4 [facility] Heparin anti-Xa unfractionat edOrdered By: Jose Min on 03-24-2024 Heparin unfractionated Chromogenic method Qn (PPP) Heparin anti-Xa unfractionated Low 0.30-0.70 [facility] INR in Platelet poor plasma by Coagulation assayOrdered By: Jose Min on 03-24-2024 INR Coag (PPP) [Relative time] INR in Platelet poor plasma by Coagulation assay [facility] Leukocytes [#/volume] correc hugh for nucleated erythrocytes in Blood by Automated counOrdered By: Jose Min on 03-24-2024 WBC corrected for nucl RBC Auto (Bld) [#/Vol] Leukocytes [#/volume] corrected for nucleated erythrocytes in Blood by Automated coun 3.8-11.6 [facility] Lymphocytes Auto (Bld) [#/Vo l]Ordered By: Jose Min on 03-24-2024 Lymphocytes (Bld) [#/Vol] Lymphocytes [#/volume] in Blood by Automated count Low 1.00-4.8 [facility] Lymphocytes/100 WBC Auto (Bl d)Ordered By: Jose Min on 03-24-2024 Lymphocytes/100 WBC (Bld) Lymphocytes/100 leukocytes in Blood by Automated count . [facility] MCH Auto (RBC) [Entitic mass ]Ordered By: Jose Min on 03-24-2024 MCH (RBC) [Entitic mass] MCH [Entitic mass] by Automated count 24.7-34.3 [facility] MCHC Auto (RBC) [Mass/Vol]Or dered By: Jose Min on 03-24-2024 MCHC (RBC) [Mass/Vol] MCHC [Mass/volume] by Automated count 32.0-35.0 [facility] MCV Auto (RBC) [Entitic vol] Ordered By: Jose Min on 03-24-2024 MCV (RBC) [Entitic vol] MCV [Entitic volume] by Automated count 80-100 [facility] Monocyte distribution width [Entitic volume] in Blood by AutomatedOrdered By: Jose Min on 03-24-2024 Monocyte distribution width Auto (Bld) [Entitic vol] Monocyte distribution width [Entitic volume] in Blood by Automated 0.00-20.00 [facility] Monocytes Auto (Bld) [#/Vol] Ordered By: Jose Min on 03-24-2024 Monocytes (Bld) [#/Vol] Automated blood monocyte count 0.0-0.8 [facility] Monocytes/100 WBC Auto (Bld) Ordered By: Jose Min on 03-24-2024 Monocytes/100 WBC (Bld) Automated monocyte % . [facility] Natriuretic peptide B [Mass/ Vol]Ordered By: Jose Min on 03-24-2024 Natriuretic peptide B (Bld) [Mass/Vol] BNP ser/plas High 5-100 [facility] Neutrophils Auto (Bld) [#/Vo l]Ordered By: Jose Min on 03-24-2024 Neutrophils (Bld) [#/Vol] Neutrophils [#/volume] in Blood by Automated count 1.8-7.7 [facility] Neutrophils/100 WBC Auto (Bl d)Ordered By: Jose Min on 03-24-2024 Neutrophils/100 WBC (Bld) Automated neutrophil % . [facility] No Panel InformationOrdered By: Jose Min on 03-24-2024 > 60.0 mL/Min [facility] 58.85 [facility] 7.46 High 7.35-7.45 [facility] 44.6 mm[Hg] 35.0-45.0 [facility] 76.9 mm[Hg] Low 80.0-100.0 [facility] 30.8 mmol/L High 23.0-29.0 [facility] 6.2 mmol/L High -3.0-3.0 [facility] 95.9 % 95.0-100.0 [facility] 7.1 mmol/L 6.6-9.7 [facility] 32.2 mmol/L High 23.0-27.0 [facility] 44 % [facility] Left radial [facility] Nasal cannula [facility] See comment [facility] Nucleated erythrocytes [Pres ence] in Blood by Automated countOrdered By: Jose Min on 03-24-2024 Nucleated RBC Auto Ql (Bld) Nucleated erythrocytes [Presence] in Blood by Automated count 0-0.5 [facility] Partial Thromboplastin Timeo n 03-24-2024 aPTT Coag (Bld) [Time] 28.4 s Normal 25.1-36.5 [facility] Comment on above: Result Comment: A he matocrit value greater than 55% may lead to inaccurate results in coagulation testing. Patients having hematocrit values >55% require a special collection tube for coagulation studies. Please contact the laboratory at [phone] for redraw instructions.PERFORMED BY:[facility] [place], [place] [phone] MEDICAL DIRECTORDOROTHY MENA M.D. Performed By: #### B PROCEDURES RN, PTT, CUBLD, PT, CBC, HS TROP, CMP, CK ####[facility] [place] [address] [facility] Platelet mean volume Auto (B ld) [Entitic vol]Ordered By: Jose Min on 03-24-2024 Platelet mean volume (Bld) [Entitic vol] Platelet mean volume [Entitic volume] in Blood by Automated count 6.3-10.7 [facility] Platelets Auto (Bld) [#/Vol] Ordered By: Jose Min on 03-24-2024 Platelets (Bld) [#/Vol] Platelets [#/volume] in Blood by Automated count 150-450 [facility] Potassium [Moles/volume] in Serum or PlasmaOrdered By: Jose Min on 03-24-2024 Potassium [Moles/Vol] Potassium [Moles/v olume] in Serum or Plasma 3.5-5.1 [facility] Protein [Mass/volume] in Ser um or PlasmaOrdered By: Jose Min on 03-24-2024 Protein [Mass/Vol] Protein [Mass/volume ] in Serum or Plasma 6.4-8.9 [facility] Prothrombin Time INRon 03-24 INR Coag (PPP) [Relative time] 1.0 {INR} Normal [facility] Comment on above: Result Comment: [...] 3 - 4.5 Performed By: #### B PROCEDURES RN, PTT, CUBLD, PT, CBC, HS TROP, CMP, CK ####[facility] [address] [place] [address] [facility] PT Coag (PPP) [Time] 11.4 s Normal 9.0-12.9 [facility] Comment on above: Result Comment: A he matocrit value greater than 55% may lead to inaccurate results in coagulation testing. Patients having hematocrit values >55% require a special collection tube for coagulation studies. Please contact the laboratory at [phone] for redraw instructions. Performed By: #### B PROCEDURES RN, PTT, CUBLD, PT, CBC, HS TROP, CMP, CK ####[facility] [place] [address] [facility] Prothrombin time (PT)Ordered By: Jose Min on 03-24-2024 PT Coag (PPP) [Time] Prothrombin time (PT) 9.0- 12.9 [facility] RBC Auto (Bld) [#/Vol]Ordere d By: Jose Min on 03-24-2024 RBC (Bld) [#/Vol] Erythrocytes [#/volu me] in Blood by Automated count 3.60-5.00 [facility] Respiratory (Upper) Panel, P CRon 03-24-2024 Respiratory (Upper) Panel, PCR Normal [facility] Comment on above: Performed By: #### R PATY PANEL UPP., BIOFIRECOVNOTDE ####[facility] [place] [address] [facility] Respiratory pathogens DNA an d RNA panel - Nasopharynx by MITCHELL with non-probe detectionOrdered By: Jose Min on 03-24-2024 Respiratory pathogens DNA and RNA panel MITCHELL+non-probe (Nph) Respiratory pathogens DNA and RNA panel - Nasopharynx by MITCHELL with non-probe detection [facility] Serum or plasma albumin/glob ulin mass ratioOrdered By: Jose Min on 03-24-2024 Albumin/Globulin [Mass ratio] Serum or plasma albumin/globulin mass ratio [facility] Serum or plasma anion gap de terminationOrdered By: Jose Min on 03-24-2024 Anion gap [Moles/Vol] Serum or plasma an ion gap determination 6.0-15.0 [facility] Sodium [Moles/volume] in Ser um or PlasmaOrdered By: Jose Min on 03-24-2024 Sodium [Moles/Vol] Sodium [Moles/volume ] in Serum or Plasma 136-145 [facility] Troponin I High Sensitivityo n 03-24-2024 Troponin I High Sensitivity 1245 Off scale high 0-15 [facility] Comment on above: Result Comment: Crit ical Result : Called to and read back by: NIR YOUSIF at: 03/24/2024 16:01:59 by:[id number] The Troponin units of report have been changed to meet the Chest Pain Accreditation requirement, element EC5.M1l2. Troponin units are changed from pg/ml to ng/L. Also, the decimal is removed and results are in whole numbers.PERFORMED BY:[facility] [place], [place] [phone] MEDICAL DIRECTORDOROTHY MENA M.D. Performed By: #### B PROCEDURES RN, PTT, CUBLD, PT, CBC, HS TROP, CMP, CK ####[facility] [place] [address] [facility] Troponin I.cardiac [Mass/vol ume] in Serum or Plasma by Detection limit <= 0.01 ng/Ordered By: Jose Min on 03-24-2024 Troponin I.cardiac DL <= 0.01 ng/mL [Mass/Vol] Troponin I.cardiac [Mass/volume] in Serum or Plasma by Detection limit <= 0.01 ng/ Critically high 0-15 [facility] Urea nitrogen [Mass/volume] in Serum or PlasmaOrdered By: Jose Min on 03-24-2024 Urea nitrogen [Mass/Vol] Urea nitrogen [Mass/volume] in Serum or Plasma 7-25 [facility] WBC Auto (Bld) [#/Vol]Ordere d By: Jose Min on 03-24-2024 WBC (Bld) [#/Vol] Leukocytes [#/volume ] in Blood by Automated count 3.8-11.6 [facility] X-ray reportOrdered By: Yomi Simon on 03-24-2024 Study report [facility] Work Phone: XR chest 1V portableon 03-24 XR chest 1V portable Normal [facility] aPTT in Platelet poor plasma by Coagulation assayOrdered By: Jose Min on 03-24-2024 aPTT Coag (PPP) [Time] Activated partial thromboplastin time (aPTT) in platelet poor plasma by coagulation a 25.1-36.5 [facility] Ambulatory Visit Summaryon 0 03-22-2024 Ambulatory Visit [...] for choosing us for your care. Normal [facility] Urology Office/Clinic Noteon 03-22-2024 Urology Office/Clinic Note Urology Office/Clinic Note Chief Complaint urinary retention HPI Staff 68yr old female pt here for hospital f/u for urinary retention. Hx bladder sling by PRW 'many' years ago. [facility] 02/29/24-03/04/24 for E Coli UTI w acute metabolic encephalopathy. [facility] 03/15/24-03/18/24 with c/o inability to pass urine for 24hrs. Hanson catheter was placed due to high PVR 800mL of urine. CT wo con 03/15/24 - kidneys/ureters/bladder WNL. Dc'd to [facility] for rehab. Was in [facility] last summer too. Lived at home w in between. Has a lot of family around for help. Not sure how long she will be a [facility] this time, thinks at least a month. [...] E&M of New Patient Moderate 45-59 Min 14587 Influenza immunization status assessed 1030F Medication list [...] Contact Information MANUELA SESAY, KAELYN Cantrell, [address] [place] [address] Business (1) Additional Instructions: pending [...] pneumococcal 23-grecia (more content not included)... Normal [facility] Comment on above: Result Comment: Elec tronically Signed By: KAELYN ROY PA-C\Date and Time Signed: 03/22/24 14:16 EST Glucose Glucometer (BldC) [M ass/Vol]Ordered By: Jus Perla on 03-17-2024 Glucose [Mass/Vol] Capillary blood gluc ose measurement by glucometer (mass/volume) [facility] Glucose Poct Glucometerson 0 03-17-2024 Glucose [Mass/Vol] 118 mg/dL Normal [facility] Comment on above: Result Comment: [facility] Glucose Reference Range is dependent on time and content of last meal. Glucose of more than 200 mg/dL in a nonstressed, ambulatory subject supports the diagnosis of Diabetes Mellitus.PERFORMED BY:[place] [address] [place], [place] [phone] MEDICAL DIRECTORDOROTHY MENA M.D. Performed By: #### G DOMINIC ####Point of Care testing, Basic Metabolic Panelon 03-07 Anion gap [Moles/Vol] Not performed Normal 6.0-15.0 [facility] Comment on above: Performed By: #### C BC, BMP ####[address] [address] [facility] Calcium [Mass/Vol] 8.2 mg/dL Low 8.6-10.3 [facility] Comment on above: Performed By: #### C BC, BMP ####[address] [address] [facility] Chloride [Moles/Vol] 96 mmol/L Low 98-107 [facility] Comment on above: Performed By: #### C BC, BMP ####[address] [address] [facility] CO2 [Moles/Vol] 37.3 mmol/L High 21.0-31.0 [facility] Comment on above: Performed By: #### C BC, BMP ####[address] [address] [facility] Creatinine [Mass/Vol] 1.08 mg/dL Normal 0.60-1.20 [facility] Comment on above: Performed By: #### C BC, BMP ####[address] [address] [facility] Creatinine Clr Calc Pharmacy 49.60 Normal [facility] Comment on above: Result Comment: PERF ORMED BY:[address] [place], [place] [phone] MEDICAL DIRECTORDOROTHY MENA M.D. Performed By: #### C BC, BMP ####[address] [address] [facility] Estimated GFR 55.259 mL/Min Normal [facility] Comment on above: Performed By: #### C BC, BMP ####[place] [id number] [facility] Glucose [Mass/Vol] 105 mg/dL High 70-100 [facility] Comment on above: Result Comment: [facility] Glucose Reference Range is dependent on time and content of last meal. Glucose of more than 200 mg/dL in a nonstressed, ambulatory subject supports the diagnosis of Diabetes Mellitus. ADA recommended reference range Performed By: #### C BC, BMP ####[place] [id number] [facility] Potassium Normal 3.5-5.1 [facility] Comment on above: Result Comment: Spec imen hemolyzed, redraw requested Performed By: #### C BC, BMP ####[place] [id number] [facility] Sodium [Moles/Vol] 140 mmol/L Normal 136-145 [facility] Comment on above: Performed By: #### C BC, BMP ####[place] [id number] [facility] Urea nitrogen [Mass/Vol] 26 mg/dL High 7-25 [facility] Comment on above: Performed By: #### C BC, BMP ####[address] [address] [facility] Basophils Auto (Bld) [#/Vol] Ordered By: Clarence Matias on 03-16-2024 Basophils (Bld) [#/Vol] Automated basophil count 0.0-0.2 [facility] Basophils/100 WBC Auto (Bld) Ordered By: Clarence Matias on 03-16-2024 Basophils/100 WBC (Bld) Automated basophil % . [facility] Calcium [Mass/volume] in Ser um or PlasmaOrdered By: Clarence Matias on 03-16-2024 Calcium [Mass/Vol] Calcium [Mass/volume ] in Serum or Plasma Low 8.6-10.3 [facility] Carbon dioxide, total [Moles /volume] in Serum or PlasmaOrdered By: Clarence Matias on 03-16-2024 CO2 [Moles/Vol] Carbon dioxide, tota l [Moles/volume] in Serum or Plasma High 21.0-31.0 [facility] Chloride [Moles/volume] in S cait or PlasmaOrdered By: Clarence Matias on 03-16-2024 Chloride [Moles/Vol] Chloride [Moles/vol ume] in Serum or Plasma Low 98-107 [facility] Complete Blood Count Auto Di ffon 03-16-2024 Basophils (Bld) [#/Vol] 0.1 10*3/uL Normal 0.0-0.2 [facility] Comment on above: Result Comment: PERF ORMED BY:[address] [place], [place] [id number] MEDICAL DIRECTORDOROTHY MENA M.D. Performed By: #### C LEEANN, BMP ####[place] [id number] [place] [address] [facility] Basophils/100 WBC (Bld) 0.9 % Normal . [facility] Comment on above: Performed By: #### C BC, BMP ####[facility] [place] [address] [facility] Eosinophils (Bld) [#/Vol] 0.2 10*3/uL Normal 0.0-0.45 [facility] Comment on above: Performed By: #### C BC, BMP ####[place] [id number] [facility] Eosinophils/100 WBC (Bld) 2.4 % Normal . [facility] Comment on above: Performed By: #### C BC, BMP ####[place] [id number] [facility] Erythrocyte distribution width (RBC) [Ratio] 15.2 % Normal 11.9-15.3 [facility] Comment on above: Performed By: #### C BC, BMP ####[place] [id number] [facility] Hematocrit (Bld) [Volume fraction] 31.3 % Low 34.0-46.4 [facility] Comment on above: Performed By: #### C BC, BMP ####[place] [id number] [facility] Hemoglobin (Bld) [Mass/Vol] 10.4 g/dL Low 11.8-15.4 [facility] Comment on above: Performed By: #### C BC, BMP ####[address] Lymphocytes (Bld) [#/Vol] 1.3 10*3/uL Normal 1.00-4.8 [facility] Comment on above: Performed By: #### C BC, BMP ####[place] [id number] [facility] Lymphocytes/100 WBC (Bld) 17.2 % Normal . [facility] Comment on above: Performed By: #### C BC, BMP ####[place] [id number] [facility] MCH (RBC) [Entitic mass] 28.6 pg Normal 24.7-34.3 [facility] Comment on above: Performed By: #### C BC, BMP ####[place] [id number] [facility] MCV (RBC) [Entitic vol] 85.9 fL Normal 80-100 [facility] Comment on above: Performed By: #### C BC, BMP ####[address] [address] [facility] Mean Corpuscular HGB Conc 33.3 g/dL Normal 32.0-35.0 [facility] Comment on above: Performed By: #### C BC, BMP ####[address] [address] [facility] Monocytes (Bld) [#/Vol] 0.5 10*3/uL Normal 0.0-0.8 [facility] Comment on above: Performed By: #### C BC, BMP ####[address] [address] [facility] Monocytes/100 WBC (Bld) 6.5 % Normal . [facility] Comment on above: Performed By: #### C BC, BMP ####[address] [address] [facility] Neutrophils (Bld) [#/Vol] 5.6 10*3/uL Normal 1.8-7.7 [facility] Comment on above: Performed By: #### C BC, BMP ####[address] [address] [facility] Neutrophils/100 WBC (Bld) 73.0 % Normal . [facility] Comment on above: Performed By: #### C BC, BMP ####[address] [address] [facility] NRBC% 0.0 /100{WBC} Normal 0-0.5 [facility] Comment on above: Performed By: #### C BC, BMP ####[address] [address] [facility] Platelet mean volume (Bld) [Entitic vol] 7.7 fL Normal 6.3-10.7 [facility] Comment on above: Performed By: #### C BC, BMP ####[address] [address] [facility] Platelets (Bld) [#/Vol] 177 10*3/uL Normal 150-450 [facility] Comment on above: Performed By: #### C BC, BMP ####[facility] [address] [place] [address] [facility] RBC (Bld) [#/Vol] 3.64 10*6/uL Normal 3.60-5.00 [facility] Comment on above: Performed By: #### C BC, BMP ####[facility] [address] [place] [address] [facility] WBC (Bld) [#/Vol] 7.7 10*3/uL Normal 3.8-11.6 [facility] Comment on above: Performed By: #### C BC, BMP ####[facility] [place] [address] [facility] Creatinine [Mass/volume] in Serum or PlasmaOrdered By: Clarence Matias on 03-16-2024 Creatinine [Mass/Vol] Creatinine [Mass/v olume] in Serum or Plasma 0.60-1.20 [facility] Eosinophils Auto (Bld) [#/Vo l]Ordered By: Clarence Matias on 03-16-2024 Eosinophils (Bld) [#/Vol] Automated eosinophil count 0.0-0.45 [facility] Eosinophils/100 WBC Auto (Bl d)Ordered By: Clarence Matias on 03-16-2024 Eosinophils/100 WBC (Bld) Automated eosinophil % . [facility] Erythrocyte distribution wid th Auto (RBC) [Ratio]Ordered By: Clarence Matias on 03-16-2024 Erythrocyte distribution width (RBC) [Ratio] Erythrocyte distribution width [Ratio] by Automated count 11.9-15.3 [facility] Glucose [Mass/volume] in Ser um or PlasmaOrdered By: Clarence Matias on 03-16-2024 Glucose [Mass/Vol] Glucose [Mass/volume ] in Serum or Plasma High 70-100 [facility] Comment on above: ADA recommended refe rence rangeRandom Glucose Reference Range is dependent on time and content of last meal. Glucose of more than 200 mg/dL in a nonstressed, ambulatory subject supports the diagnosis of Diabetes Mellitus. Hematocrit Auto (Bld) [Volum e fraction]Ordered By: Clarence Matias on 03-16-2024 Hematocrit (Bld) [Volume fraction] Hematocrit [Volume Fraction] of Blood by Automated count Low 34.0-46.4 [facility] Hemoglobin [Mass/volume] in BloodOrdered By: Clarence Matias on 03-16-2024 Hemoglobin (Bld) [Mass/Vol] Hemoglobin [Mass/volume] in Blood Low 11.8-15.4 [facility] Leukocytes [#/volume] correc hugh for nucleated erythrocytes in Blood by Automated counOrdered By: Clarence Matias on 03-16-2024 WBC corrected for nucl RBC Auto (Bld) [#/Vol] Leukocytes [#/volume] corrected for nucleated erythrocytes in Blood by Automated coun 3.8-11.6 [facility] Lymphocytes Auto (Bld) [#/Vo l]Ordered By: Clarence Matias on 03-16-2024 Lymphocytes (Bld) [#/Vol] Lymphocytes [#/volume] in Blood by Automated count 1.00-4.8 [facility] Lymphocytes/100 WBC Auto (Bl d)Ordered By: Clarence Matias on 03-16-2024 Lymphocytes/100 WBC (Bld) Lymphocytes/100 leukocytes in Blood by Automated count . [facility] MCH Auto (RBC) [Entitic mass ]Ordered By: Clarence Matias on 03-16-2024 MCH (RBC) [Entitic mass] MCH [Entitic mass] by Automated count 24.7-34.3 [facility] MCHC Auto (RBC) [Mass/Vol]Or dered By: Clarence Matias on 03-16-2024 MCHC (RBC) [Mass/Vol] MCHC [Mass/volume] by Automated count 32.0-35.0 [facility] MCV Auto (RBC) [Entitic vol] Ordered By: Clarence Matias on 03-16-2024 MCV (RBC) [Entitic vol] MCV [Entitic volume] by Automated count 80-100 [facility] Monocytes Auto (Bld) [#/Vol] Ordered By: Clarence Matias on 03-16-2024 Monocytes (Bld) [#/Vol] Automated blood monocyte count 0.0-0.8 [facility] Monocytes/100 WBC Auto (Bld) Ordered By: Clarence Matias on 03-16-2024 Monocytes/100 WBC (Bld) Automated monocyte % . [facility] Neutrophils Auto (Bld) [#/Vo l]Ordered By: Clarence Matias on 03-16-2024 Neutrophils (Bld) [#/Vol] Neutrophils [#/volume] in Blood by Automated count 1.8-7.7 [facility] Neutrophils/100 WBC Auto (Bl d)Ordered By: Clarence Matias on 03-16-2024 Neutrophils/100 WBC (Bld) Automated neutrophil % . [facility] No Panel InformationOrdered By: Clarence Matias on 03-16-2024 Estimated GFR (CKD-EPI) 55.259 mL/Min [facility] Creatinine Clearance (Chem 49.60 [facility] 55.259 mL/Min [facility] 49.60 [facility] Nucleated erythrocytes [Pres ence] in Blood by Automated countOrdered By: Clarence Matias on 03-16-2024 Nucleated RBC Auto Ql (Bld) Nucleated erythrocytes [Presence] in Blood by Automated count 0-0.5 [facility] Platelet mean volume Auto (B ld) [Entitic vol]Ordered By: Clarence Matias on 03-16-2024 Platelet mean volume (Bld) [Entitic vol] Platelet mean volume [Entitic volume] in Blood by Automated count 6.3-10.7 [facility] Platelets Auto (Bld) [#/Vol] Ordered By: Clarence Matias on 03-16-2024 Platelets (Bld) [#/Vol] Platelets [#/volume] in Blood by Automated count 150-450 [facility] Potassium [Moles/volume] in Serum or PlasmaOrdered By: Neto Arauz on 03-16-2024 Potassium [Moles/Vol] Potassium [Moles/v olume] in Serum or Plasma 3.5-5.1 [facility] Comment on above: Hemolysis is present at a level that could interfere with the result.Contact lab if redraw is required RBC Auto (Bld) [#/Vol]Ordere d By: Clarence Matias on 03-16-2024 RBC (Bld) [#/Vol] Erythrocytes [#/volu me] in Blood by Automated count 3.60-5.00 [facility] Redraw Potassiumon Potassium [Moles/Vol] 4.1 mmol/L Normal 3.5-5.1 [facility] Comment on above: Result Comment: Hemo lysis is present at a level that could interfere with the result. Contact lab if redraw is requiredPERFORMED BY:[facility] [place], [place] [phone] MEDICAL DIRECTORDOROTHY MENA M.D. Performed By: #### R MEGHAN Cheek ####[facility] [place] [address] [facility] Serum or plasma anion gap de terminationOrdered By: Clarence Matias on 03-16-2024 Anion gap [Moles/Vol] Serum or plasma an ion gap determination [facility] Comment on above: Test not performed Sodium [Moles/volume] in Ser um or PlasmaOrdered By: Clarence Matias on 03-16-2024 Sodium [Moles/Vol] Sodium [Moles/volume ] in Serum or Plasma 136-145 [facility] Urea nitrogen [Mass/volume] in Serum or PlasmaOrdered By: Clarence Matias on 03-16-2024 Urea nitrogen [Mass/Vol] Urea nitrogen [Mass/volume] in Serum or Plasma High 7-25 [facility] WBC Auto (Bld) [#/Vol]Ordere d By: Clarence Matias on 03-16-2024 WBC (Bld) [#/Vol] Leukocytes [#/volume ] in Blood by Automated count 3.8-11.6 [facility] Alanine aminotransferase [En zymatic activity/volume] in Serum or PlasmaOrdered By: Jm Almaguer on 03-15-2024 ALT [Catalytic activity/Vol] Alanine aminotransferase [Enzymatic activity/volume] in Serum or Plasma 7-52 [facility] Albumin [Mass/volume] in Ser um or Plasma by Bromocresol green (BCG) dye binding methoOrdered By: Jm Almaguer on 03-15-2024 Albumin BCG dye [Mass/Vol] Albumin [Mass/volume] in Serum or Plasma by Bromocresol green (BCG) dye binding metho 3.5-5.7 [facility] Alkaline phosphatase [Enzyma tic activity/volume] in Serum or PlasmaOrdered By: Jm Almaguer on 03-15-2024 ALP [Catalytic activity/Vol] Alkaline phosphatase [Enzymatic activity/volume] in Serum or Plasma High 34-104 [facility] Appearance of UrineOrdered B y: Jm Almaguer on 03-15-2024 Appearance (U) Urine appearance Clear [facility] Aspartate aminotransferase [ Enzymatic activity/volume] in Serum or PlasmaOrdered By: Jm Almaguer on 03-15-2024 AST [Catalytic activity/Vol] Aspartate aminotransferase [Enzymatic activity/volume] in Serum or Plasma 13-39 [facility] Bacteria [Presence] in Urine by AutomatedOrdered By: Jm Almaguer on 03-15-2024 Bacteria Auto Ql (U) Bacteria [Presence] in Urine by Automated None Seen [facility] Basophils Auto (Bld) [#/Vol] Ordered By: Jm Almaguer on 03-15-2024 Basophils (Bld) [#/Vol] Automated basophil count 0.0-0.2 [facility] Basophils/100 WBC Auto (Bld) Ordered By: Jm Almaguer on 03-15-2024 Basophils/100 WBC (Bld) Automated basophil % . [facility] Bilirubin Test strip Ql (U)O rdered By: Jm Almaguer on 03-15-2024 Bilirubin Ql (U) Bilirubin.total [Presence] in Urine by Test strip Negative [facility] Bilirubin.total [Mass/volume ] in Serum or PlasmaOrdered By: Jm Almaguer on 03-15-2024 Bilirubin [Mass/Vol] Bilirubin.total [Mass/volume] in Serum or Plasma 0.3-1.[address] [facility] [address] abdomen pelvis wo conon 0 03-15-2024 CT abdomen pelvis wo con Normal [facility] Calcium [Mass/volume] in Ser um or PlasmaOrdered By: Jm Almaguer on 03-15-2024 Calcium [Mass/Vol] Calcium [Mass/volume ] in Serum or Plasma Low 8.6-10.3 [facility] Carbon dioxide, total [Moles /volume] in Serum or PlasmaOrdered By: Jm Almaguer on 03-15-2024 CO2 [Moles/Vol] Carbon dioxide, tota l [Moles/volume] in Serum or Plasma High 21.0-31.0 [facility] Chloride [Moles/volume] in S cait or PlasmaOrdered By: Jm Almaguer on 03-15-2024 Chloride [Moles/Vol] Chloride [Moles/vol ume] in Serum or Plasma Low 98-107 [facility] Color Auto (U)Ordered By: Matt Almaguer on 03-15-2024 Color (U) Color of Urine by Auto Yellow [facility] Blood Count Auto Di ffon 03-15-2024 Basophils (Bld) [#/Vol] 0.1 10*3/uL Normal 0.0-0.2 [facility] Comment on above: Result Comment: PERF ORMED BY:[address] [place], [place] [phone] MEDICAL DIRECTORDOROTHY MENA M.D. Performed By: #### C BC ####[address] Basophils/100 WBC (Bld) 0.6 % Normal . [facility] Comment on above: Performed By: #### C BC ####[address] Eosinophils (Bld) [#/Vol] 0.2 10*3/uL Normal 0.0-0.45 [facility] Comment on above: Performed By: #### C BC ####[address] Eosinophils/100 WBC (Bld) 1.8 % Normal . [facility] Comment on above: Performed By: #### C BC ####[address] [place] [address] [place] Erythrocyte distribution width (RBC) [Ratio] 15.1 % Normal 11.9-15.3 [facility] Comment on above: Performed By: #### C BC ####[address] Hematocrit (Bld) [Volume fraction] 35.0 % Normal 34.0-46.4 [facility] Comment on above: Performed By: #### C BC ####[address] Hemoglobin (Bld) [Mass/Vol] 11.5 g/dL Low 11.8-15.4 [facility] Comment on above: Performed By: #### C BC ####[address] Lymphocytes (Bld) [#/Vol] 1.3 10*3/uL Normal 1.00-4.8 [facility] Comment on above: Performed By: #### C BC ####[address] Lymphocytes/100 WBC (Bld) 13.6 % Normal . [facility] Comment on above: Performed By: #### C BC ####[address] MCH (RBC) [Entitic mass] 28.3 pg Normal 24.7-34.3 [facility] Comment on above: Performed By: #### C BC ####[address] MCV (RBC) [Entitic vol] 86.4 fL Normal 80-100 [facility] Comment on above: Performed By: #### C BC ####[address] Mean Corpuscular HGB Conc 32.8 g/dL Normal 32.0-35.0 [facility] Comment on above: Performed By: #### C BC ####[address] Monocytes (Bld) [#/Vol] 0.5 10*3/uL Normal 0.0-0.8 [facility] Comment on above: Performed By: #### C BC ####[address] Monocytes/100 WBC (Bld) 18.64 % Normal 0.00-20.00 [facility] Comment on above: Performed By: #### C BC ####[address] Monocytes/100 WBC (Bld) 5.2 % Normal . [facility] Comment on above: Performed By: #### C BC ####[address] Neutrophils (Bld) [#/Vol] 7.8 10*3/uL High 1.8-7.7 [facility] Comment on above: Performed By: #### C BC ####[address] Neutrophils/100 WBC (Bld) 78.8 % Normal . [facility] Comment on above: Performed By: #### C BC ####[address] NRBC% 0.0 /100{WBC} Normal 0-0.5 [facility] Comment on above: Performed By: #### C BC ####[address] Platelet mean volume (Bld) [Entitic vol] 7.6 fL Normal 6.3-10.7 [facility] Comment on above: Performed By: #### C BC ####[address] Platelets (Bld) [#/Vol] 199 10*3/uL Normal 150-450 [facility] Comment on above: Performed By: #### C BC ####[address] RBC (Bld) [#/Vol] 4.05 10*6/uL Normal 3.60-5.00 [facility] Comment on above: Performed By: #### C BC ####[address] WBC (Bld) [#/Vol] 9.9 10*3/uL Normal 3.8-11.6 [facility] Comment on above: Performed By: #### C BC ####[address] Comprehensive Metabolic Pane lelia 03-15-2024 Albumin [Mass/Vol] 3.9 g/dL Normal 3.5-5.7 [facility] Comment on above: Performed By: #### L IPASE, CMP ####[address] Albumin/Globulin [Mass ratio] 1.6 {ratio} Normal [facility] Comment on above: Performed By: #### L IPASE, CMP ####[address] ALP [Catalytic activity/Vol] 133 U/L High 34-104 [facility] Comment on above: Performed By: #### L IPASE, CMP ####[address] ALT [Catalytic activity/Vol] 43 U/L Normal 7-52 [facility] Comment on above: Performed By: #### L IPASE, CMP ####[address] Anion gap [Moles/Vol] 9.3 mmol/L Normal 6.0-15.0 [facility] Comment on above: Performed By: #### L IPASE, CMP ####[address] AST [Catalytic activity/Vol] 27 U/L Normal 13-39 [facility] Comment on above: Performed By: #### L IPASE, CMP ####[address] Bilirubin [Mass/Vol] 0.4 mg/dL Normal 0.3-1.0 [facility] Comment on above: Performed By: #### L IPASE, CMP ####[address] Calcium [Mass/Vol] 8.2 mg/dL Low 8.6-10.3 [facility] Comment on above: Performed By: #### L IPASE, CMP ####[address] Chloride [Moles/Vol] 97 mmol/L Low 98-107 [facility] Comment on above: Performed By: #### L IPASE, CMP ####[place] [id number] [facility] CO2 [Moles/Vol] 37.4 mmol/L High 21.0-31.0 [facility] Comment on above: Performed By: #### L IPASE, CMP ####[address] Creatinine [Mass/Vol] 1.34 mg/dL High 0.60-1.20 [facility] Comment on above: Performed By: #### L IPASE, CMP ####[address] Creatinine Clr Calc Pharmacy 39.26 Normal [facility] Comment on above: Performed By: #### L IPASE, CMP ####[place] [id number] [facility] Estimated GFR 42.657 mL/Min Normal [facility] Comment on above: Performed By: #### L IPASE, CMP ####[place] [id number] [facility] Globulin (S) [Mass/Vol] 2.4 g/dL Normal [facility] Comment on above: Performed By: #### L IPASE, CMP ####[place] [id number] [facility] Glucose [Mass/Vol] 92 mg/dL Normal 70-100 [facility] Comment on above: Result Comment: [facility] Glucose Reference Range is dependent on time and content of last meal. Glucose of more than 200 mg/dL in a nonstressed, ambulatory subject supports the diagnosis of Diabetes Mellitus. ADA recommended reference range Performed By: #### L IPASE, CMP ####[place] [id number] Potassium [Moles/Vol] 3.7 mmol/L Normal 3.5-5.1 [facility] Comment on above: Performed By: #### L IPASE, CMP ####[address] Protein [Mass/Vol] 6.3 g/dL Low 6.4-8.9 [facility] Comment on above: Performed By: #### L IPASE, CMP ####[address] Sodium [Moles/Vol] 140 mmol/L Normal 136-145 [facility] Comment on above: Performed By: #### L IPASE, CMP ####[address] Urea nitrogen [Mass/Vol] 30 mg/dL High 7-25 [facility] Comment on above: Performed By: #### L IPASE, CMP ####[address] Creatinine [Mass/volume] in Serum or PlasmaOrdered By: Jm Almaguer on 03-15-2024 Creatinine [Mass/Vol] Creatinine [Mass/v olume] in Serum or Plasma High 0.60-1.20 [facility] Dipstick and Microscopicon 0 03-15-2024 Appearance (U) Clear Normal Clear [facility] Comment on above: Order Comment: Name Collection Type:: Clean-Voided Midstream Performed By: #### A DDONUAPLUS ####[address] Bacteria,Urine Rare Normal None Seen [facility] Comment on above: Order Comment: Name Collection Type:: Clean-Voided Midstream Performed By: #### A DDONUAPLUS ####[address] [address] [facility] Bilirubin,Urine Negative Normal Negative [facility] Comment on above: Order Comment: Name Collection Type:: Clean-Voided Midstream Performed By: #### A DDONUAPLUS ####[address] [address] [facility] Color (U) Light-Yellow Normal Yellow [facility] Comment on above: Order Comment: Name Collection Type:: Clean-Voided Midstream Performed By: #### A DDONUAPLUS ####[address] [address] [facility] Glucose Ql (U) Normal Normal Normal [facility] Comment on above: Order Comment: Name Collection Type:: Clean-Voided Midstream Performed By: #### A DDONUAPLUS ####[address] [address] [facility] Hyaline Casts,Urine 0 [LPF] Normal 0-8 [facility] Comment on above: Order Comment: Name Collection Type:: Clean-Voided Midstream Performed By: #### A DDONUAPLUS ####[address] [address] [facility] Ketones Ql (U) Negative Normal Negative [facility] Comment on above: Order Comment: Name Collection Type:: Clean-Voided Midstream Performed By: #### A DDONUAPLUS ####[address] [address] [facility] Leukocyte esterase Test strip Ql (U) 1+ High Negative [facility] Comment on above: Order Comment: Name Collection Type:: Clean-Voided Midstream Performed By: #### A DDONUAPLUS ####[address] [address] [facility] Mucus,Urine Rare Normal [facility] [facility] Comment on above: Order Comment: Name Collection Type:: Clean-Voided Midstream Result Comment: PERF ORMED BY:[address] [place], [place] [id number] MEDICAL DIRECTORDOROTHY MENA M.D. Performed By: #### A DDONUAPLUS ####[address] [address] [facility] Nitrite,Urine Negative Normal Negative [facility] Comment on above: Order Comment: Name Collection Type:: Clean-Voided Midstream Performed By: #### A DDONUAPLUS ####[address] [address] [facility] Occult Blood,Urine Negative Normal Negative [facility] Comment on above: Order Comment: Name Collection Type:: Clean-Voided Midstream Result Comment: PERF ORMED BY:[address] [place], [place] [id number] MEDICAL DIRECTORDOROTHY MENA M.D. Performed By: #### A DDONUAPLUS ####[address] [address] [facility] pH (U) 5.5 [pH] Normal 5.0-9.0 [facility] Comment on above: Order Comment: Name Collection Type:: Clean-Voided Midstream Performed By: #### A DDONUAPLUS ####[address] [address] [facility] Protein,Urine Negative Normal Negative [facility] Comment on above: Order Comment: Name Collection Type:: Clean-Voided Midstream Performed By: #### A DDONUAPLUS ####[address] [address] [facility] RBC,Urine 1 [HPF] Normal 0-4 [facility] Comment on above: Order Comment: Name Collection Type:: Clean-Voided Midstream Performed By: #### A DDONUAPLUS ####[address] [address] [facility] Specificy Morton,Urine 1.012 Normal 1.001-1.03 0 [facility] Comment on above: Order Comment: Name Collection Type:: Clean-Voided Midstream Performed By: #### A DDONUAPLUS ####[address] [place] [address] Squamous Epithelial Cell,Urine 1 [HPF] Normal 0-2 [facility] Comment on above: Order Comment: Name Collection Type:: Clean-Voided Midstream Performed By: #### A DDONUAPLUS ####[place] [id number] Urobilinogen,Urine Normal Normal Normal [facility] Comment on above: Order Comment: Name Collection Type:: Clean-Voided Midstream Performed By: #### A DDONUAPLUS ####[place] [id number] WBC CLUMP, Urine Occasional High None Seen [facility] Comment on above: Order Comment: Name Collection Type:: Clean-Voided Midstream Performed By: #### A DDONUAPLUS ####[place] [id number] WBC,Urine 3 [HPF] Normal 0-4 [facility] Comment on above: Order Comment: Name Collection Type:: Clean-Voided Midstream Performed By: #### A DDONUAPLUS ####[place] [id number] [facility] ECG 12 lead ECGon 03-15-2024 ECG 12 lead ECG Normal The [facility] Eosinophils Auto (Bld) [#/Vo l]Ordered By: Jm Almaguer on 03-15-2024 Eosinophils (Bld) [#/Vol] Automated eosinophil count 0.0-0.45 [facility] Eosinophils/100 WBC Auto (Bl d)Ordered By: Jm Almaguer on 03-15-2024 Eosinophils/100 WBC (Bld) Automated eosinophil % . [facility] Epithelial cells.squamous [# /area] in Urine sediment by Automated countOrdered By: Jm Almaguer on 03-15-2024 Epithelial cells.squamous Auto (Urine sed) [#/Area] Epithelial cells.squamous [#/area] in Urine sediment by Automated count 0-2 [facility] Erythrocyte distribution wid th Auto (RBC) [Ratio]Ordered By: Jm Almaguer on 03-15-2024 Erythrocyte distribution width (RBC) [Ratio] Erythrocyte distribution width [Ratio] by Automated count 11.9-15.3 [facility] Erythrocytes [#/area] in Uri ne sediment by Automated countOrdered By: Jm Almaguer on 03-15-2024 RBC Auto (Urine sed) [#/Area] Erythrocytes [#/area] in Urine sediment by Automated count 0-4 [facility] Globulin Calc (S) [Mass/Vol] Ordered By: Jm Almaguer on 03-15-2024 Globulin (S) [Mass/Vol] Serum globulin measurement by calculation (mass/volume) [facility] Glucose [Mass/volume] in Ser um or PlasmaOrdered By: Jm Almaguer on 03-15-2024 Glucose [Mass/Vol] Glucose [Mass/volume ] in Serum or Plasma 70-100 [facility] Comment on above: ADA recommended refe rence rangeRandom Glucose Reference Range is dependent on time and content of last meal. Glucose of more than 200 mg/dL in a nonstressed, ambulatory subject supports the diagnosis of Diabetes Mellitus. Glucose [Mass/volume] in Uri ne by Test stripOrdered By: Jm Almaguer on 03-15-2024 Glucose Test strip (U) [Mass/Vol] Glucose [Mass/volume] in Urine by Test strip Normal [facility] Hematocrit Auto (Bld) [Volum e fraction]Ordered By: Jm Almaguer on 03-15-2024 Hematocrit (Bld) [Volume fraction] Hematocrit [Volume Fraction] of Blood by Automated count 34.0-46.4 [facility] Hemoglobin Test strip Ql (U) Ordered By: Jm Almaguer on 03-15-2024 Hemoglobin Ql (U) Hemoglobin [Presence ] in Urine by Test strip Negative [facility] Hemoglobin [Mass/volume] in BloodOrdered By: Jm Almaguer on 03-15-2024 Hemoglobin (Bld) [Mass/Vol] Hemoglobin [Mass/volume] in Blood Low 11.8-15.4 [facility] Hyaline casts [#/area] in Ur ine sediment by Automated countOrdered By: Jm Almaguer on 03-15-2024 Hyaline casts Auto (Urine sed) [#/Area] Hyaline casts [#/area] in Urine sediment by Automated count 0-8 [facility] Ketones Test strip Ql (U)Ord ered By: mJ Almaguer on 03-15-2024 Ketones Ql (U) Ketones [Presence] i n Urine by Test strip Negative [facility] Leukocyte clumps [Presence] in Urine by AutomatedOrdered By: Jm Almaguer on 03-15-2024 Leukocyte clumps Auto Ql (U) Leukocyte clumps [Presence] in Urine by Automated High None Seen [facility] Leukocyte esterase [Presence ] in Urine by Test stripOrdered By: Jm Almaguer on 03-15-2024 Leukocyte esterase Test strip Ql (U) Leukocyte esterase [Presence] in Urine by Test strip High Negative [facility] Leukocytes [#/area] in Urine sediment by Automated countOrdered By: Jm Almaguer on 03-15-2024 WBC Auto (Urine sed) [#/Area] Leukocytes [#/area] in Urine sediment by Automated count 0-4 [facility] Leukocytes [#/volume] correc hugh for nucleated erythrocytes in Blood by Automated counOrdered By: Jm Almaguer on 03-15-2024 WBC corrected for nucl RBC Auto (Bld) [#/Vol] Leukocytes [#/volume] corrected for nucleated erythrocytes in Blood by Automated coun 3.8-11.6 [facility] Lipaseon 03-15-2024 Lipase [Catalytic activity/Vol] 27.0 U/L Normal 11.0-82.0 [facility] Comment on above: Result Comment: PERF ORMED BY:[address] [place], [place] [phone] MEDICAL DIRECTORDOROTHY MENA M.D. Performed By: #### L IPASE, CMP ####[address] [address] [facility] Lipase [Enzymatic activity/v olume] in Serum or PlasmaOrdered By: Jm Almaguer on 03-15-2024 Lipase [Catalytic activity/Vol] Lipase [Enzymatic activity/volume] in Serum or Plasma 11.0-82.0 [facility] Lymphocytes Auto (Bld) [#/Vo l]Ordered By: Jm Almaguer on 03-15-2024 Lymphocytes (Bld) [#/Vol] Lymphocytes [#/volume] in Blood by Automated count 1.00-4.8 [facility] Lymphocytes/100 WBC Auto (Bl d)Ordered By: Jm Almageur on 03-15-2024 Lymphocytes/100 WBC (Bld) Lymphocytes/100 leukocytes in Blood by Automated count . [facility] MCH Auto (RBC) [Entitic mass ]Ordered By: Jm Almaguer on 03-15-2024 MCH (RBC) [Entitic mass] MCH [Entitic mass] by Automated count 24.7-34.3 [facility] MCHC Auto (RBC) [Mass/Vol]Or dered By: Jm Almaguer on 03-15-2024 MCHC (RBC) [Mass/Vol] MCHC [Mass/volume] by Automated count 32.0-35.0 [facility] MCV Auto (RBC) [Entitic vol] Ordered By: Jm Almaguer on 03-15-2024 MCV (RBC) [Entitic vol] MCV [Entitic volume] by Automated count 80-100 [facility] Monocyte distribution width [Entitic volume] in Blood by AutomatedOrdered By: Jm Almaguer on 03-15-2024 Monocyte distribution width Auto (Bld) [Entitic vol] Monocyte distribution width [Entitic volume] in Blood by Automated 0.00-20.00 [facility] Monocytes Auto (Bld) [#/Vol] Ordered By: Jm Almaguer on 03-15-2024 Monocytes (Bld) [#/Vol] Automated blood monocyte count 0.0-0.8 [facility] Monocytes/100 WBC Auto (Bld) Ordered By: Jm Almaguer on 03-15-2024 Monocytes/100 WBC (Bld) Automated monocyte % . [facility] Mucus [Presence] in Urine by AutomatedOrdered By: Jm Almaguer on 03-15-2024 Mucus Auto Ql (U) Mucus [Presence] in Urine by Automated [facility] Neutrophils Auto (Bld) [#/Vo l]Ordered By: Jm Almaguer on 03-15-2024 Neutrophils (Bld) [#/Vol] Neutrophils [#/volume] in Blood by Automated count High 1.8-7.7 [facility] Neutrophils/100 WBC Auto (Bl d)Ordered By: Jm Almaguer on 03-15-2024 Neutrophils/100 WBC (Bld) Automated neutrophil % . [facility] Nitrite Test strip Ql (U)Ord ered By: Jm Almaguer on 03-15-2024 Nitrite Ql (U) Nitrite [Presence] i n Urine by Test strip Negative [facility] No Panel InformationOrdered By: Jm Almaguer on 03-15-2024 Estimated GFR (CKD-EPI) 42.657 mL/Min [facility] Creatinine Clearance (Chem 39.26 [facility] Nucleated erythrocytes [Pres ence] in Blood by Automated countOrdered By: Jm Almaguer on 03-15-2024 Nucleated RBC Auto Ql (Bld) Nucleated erythrocytes [Presence] in Blood by Automated count 0-0.5 [facility] Platelet mean volume Auto (B ld) [Entitic vol]Ordered By: Jm Almaguer on 03-15-2024 Platelet mean volume (Bld) [Entitic vol] Platelet mean volume [Entitic volume] in Blood by Automated count 6.3-10.7 [facility] Platelets Auto (Bld) [#/Vol] Ordered By: Jm Almaguer on 03-15-2024 Platelets (Bld) [#/Vol] Platelets [#/volume] in Blood by Automated count 150-450 [facility] Potassium [Moles/volume] in Serum or PlasmaOrdered By: Jm Almaguer on 03-15-2024 Potassium [Moles/Vol] Potassium [Moles/v olume] in Serum or Plasma 3.5-5.1 [facility] Protein Test strip (U) [Mass /Vol]Ordered By: Jm Almaguer on 03-15-2024 Protein (U) [Mass/Vol] Protein [Mass/vol ume] in Urine by Test strip Negative [facility] Protein [Mass/volume] in Ser um or PlasmaOrdered By: Jm Almaguer on 03-15-2024 Protein [Mass/Vol] Protein [Mass/volume ] in Serum or Plasma Low 6.4-8.9 [facility] RBC Auto (Bld) [#/Vol]Ordere d By: Jm Almaguer on 03-15-2024 RBC (Bld) [#/Vol] Erythrocytes [#/volu me] in Blood by Automated count 3.60-5.00 [facility] Serum or plasma albumin/glob ulin mass ratioOrdered By: Jm Almaguer on 03-15-2024 Albumin/Globulin [Mass ratio] Serum or plasma albumin/globulin mass ratio [facility] Serum or plasma anion gap de terminationOrdered By: Jm Almaguer on 03-15-2024 Anion gap [Moles/Vol] Serum or plasma an ion gap determination 6.0-15.0 [facility] Sodium [Moles/volume] in Ser um or PlasmaOrdered By: Jm Almaguer on 03-15-2024 Sodium [Moles/Vol] Sodium [Moles/volume ] in Serum or Plasma 136-145 [facility] Specific gravity Test strip (U) [Rel density]Ordered By: Jm Almaguer on 03-15-2024 Specific gravity (U) [Rel density] Specific gravity of Urine by Test strip 1.001-1.03 0 [facility] Urea nitrogen [Mass/volume] in Serum or PlasmaOrdered By: Jm Almaguer on 03-15-2024 Urea nitrogen [Mass/Vol] Urea nitrogen [Mass/volume] in Serum or Plasma High 7-25 [facility] Urine Cultureon 03-15-2024 Bacteria identified Cx Nom (U) Normal [facility] Comment on above: Performed By: #### C UU ####[facility] [id number] [place] [id number] [facility] Urine cultureOrdered By: More Almaguer on 03-15-2024 Bacteria identified Cx Nom (U) Urine culture [facility] Urobilinogen Test strip (U) [Mass/Vol]Ordered By: Jm Almaguer on 03-15-2024 Urobilinogen (U) [Mass/Vol] Urobilinogen [Mass/volume] in Urine by Test strip Normal [facility] WBC Auto (Bld) [#/Vol]Ordere d By: Jm Almaguer on 03-15-2024 WBC (Bld) [#/Vol] Leukocytes [#/volume ] in Blood by Automated count 3.8-11.6 [facility] pH Test strip (U)Ordered By: Jm Almaguer on 03-15-2024 pH (U) pH of Urine by Test strip 5.0-9.0 [facility] Basic Metabolic Panelon 12-2 Anion gap [Moles/Vol] 12.7 mmol/L Normal 6.0-15.0 [facility] Comment on above: Performed By: #### S CAN CBC, BMP ####[place] [id number] [place] [address] [facility] Calcium [Mass/Vol] 8.9 mg/dL Normal 8.6-10.3 [facility] Comment on above: Performed By: #### S CAN CBC, BMP ####[place] [id number] [place] [address] [facility] Chloride [Moles/Vol] 100 mmol/L Normal 98-107 [facility] Comment on above: Performed By: #### S CAN CBC, BMP ####[place] [id number] [place] [address] [facility] CO2 [Moles/Vol] 32.6 mmol/L High 21.0-31.0 [facility] Comment on above: Performed By: #### S CAN CBC, BMP ####[place] [id number] [facility] Creatinine [Mass/Vol] 1.15 mg/dL Normal 0.60-1.20 [facility] Comment on above: Performed By: #### S CAN CBC, BMP ####[address] [address] [facility] Creatinine Clr Calc Pharmacy 46.78 Normal [facility] Comment on above: Result Comment: PERF ORMED BY:[address] [place], [place] [phone] MEDICAL DIRECTORDOROTHY MENA M.D. Performed By: #### S CAN CBC, BMP ####[address] [address] [facility] Estimated GFR 51.248 mL/Min Normal [facility] Comment on above: Performed By: #### S CAN CBC, BMP ####[address] [address] [facility] Glucose [Mass/Vol] 105 mg/dL High 70-100 [facility] Comment on above: Result Comment: [place] Glucose Reference Range is dependent on time and content of last meal. Glucose of more than 200 mg/dL in a nonstressed, ambulatory subject supports the diagnosis of Diabetes Mellitus. ADA recommended reference range Performed By: #### S CAN CBC, BMP ####[facility] [id number] Potassium [Moles/Vol] 4.3 mmol/L Normal 3.5-5.1 [facility] Comment on above: Performed By: #### S CAN CBC, BMP ####[facility] [id number] Sodium [Moles/Vol] 141 mmol/L Normal 136-145 [facility] Comment on above: Performed By: #### S CAN CBC, BMP ####[facility] [id number] Urea nitrogen [Mass/Vol] 26 mg/dL High 7-25 [facility] Comment on above: Performed By: #### S CAN CBC, BMP ####[facility] [id number] Basophils Auto (Bld) [#/Vol] Ordered By: Clarence Matias on 03-04-2024 Basophils (Bld) [#/Vol] Automated basophil count 0.0-0.2 [facility] Basophils/100 WBC Auto (Bld) Ordered By: Clarence Matias on 03-04-2024 Basophils/100 WBC (Bld) Automated basophil % . [facility] Calcium [Mass/volume] in Ser um or PlasmaOrdered By: Clarence Matias on 03-04-2024 Calcium [Mass/Vol] Calcium [Mass/volume ] in Serum or Plasma 8.6-10.3 [facility] Carbon dioxide, total [Moles /volume] in Serum or PlasmaOrdered By: Clarence Matias on 03-04-2024 CO2 [Moles/Vol] Carbon dioxide, tota l [Moles/volume] in Serum or Plasma High 21.0-31.0 [facility] Chloride [Moles/volume] in S cait or PlasmaOrdered By: Clarence Matias on 03-04-2024 Chloride [Moles/Vol] Chloride [Moles/vol ume] in Serum or Plasma 98-107 [facility] Creatinine [Mass/volume] in Serum or PlasmaOrdered By: Clarence Matias on 03-04-2024 Creatinine [Mass/Vol] Creatinine [Mass/v olume] in Serum or Plasma 0.60-1.20 [facility] Eosinophils Auto (Bld) [#/Vo l]Ordered By: Clarence Matias on 03-04-2024 Eosinophils (Bld) [#/Vol] Automated eosinophil count 0.0-0.45 [facility] Eosinophils/100 WBC Auto (Bl d)Ordered By: Clarence Matias on 03-04-2024 Eosinophils/100 WBC (Bld) Automated eosinophil % . [facility] Erythrocyte distribution wid th Auto (RBC) [Ratio]Ordered By: Clarence Matias on 03-04-2024 Erythrocyte distribution width (RBC) [Ratio] Erythrocyte distribution width [Ratio] by Automated count 11.9-15.3 [facility] Erythrocyte morphology findi ng [Identifier] in BloodOrdered By: Clarence Matias on 03-04-2024 RBC morphology finding Nom (Bld) RBC morphology Normal [facility] Glucose Glucometer (BldC) [M ass/Vol]Ordered By: Clarence Matias on 03-04-2024 Glucose [Mass/Vol] Capillary blood gluc ose measurement by glucometer (mass/volume) [facility] Comment on above: Random Glucose Refer ence Range is dependent on time and content of last meal. Glucose of more than 200 mg/dL in a nonstressed, ambulatory subject supports the diagnosis of Diabetes Mellitus. Glucose Poct Glucometerson 1 05-05-2023 Commemt1 Glu2: Cleaned Meter Normal [facility] Comment on above: Result Comment: PERF ORMED BY:[place] [address] [place], [place] [id number] MEDICAL DIRECTORDOROTHY MENA M.D. Performed By: #### G DOMINIC ####Point of Care testing, Glucose [Mass/Vol] 208 mg/dL Normal [facility] Comment on above: Result Comment: [facility] om Glucose Reference Range is dependent on time and content of last meal. Glucose of more than 200 mg/dL in a nonstressed, ambulatory subject supports the diagnosis of Diabetes Mellitus. Performed By: #### G LULS ####Point of Care testing, Commemt1 Glu2: Cleaned Meter Normal [facility] Comment on above: Result Comment: PERF ORMED BY:[facility] [place], [place] [phone] MEDICAL DIRECTORDOROTHY MENA M.D. Performed By: #### G LULS ####Point of Care testing, Glucose [Mass/Vol] 100 mg/dL Normal [facility] Comment on above: Result Comment: [place] om Glucose Reference Range is dependent on time and content of last meal. Glucose of more than 200 mg/dL in a nonstressed, ambulatory subject supports the diagnosis of Diabetes Mellitus. Performed By: #### G LULS ####Point of Care testing, Glucose [Mass/volume] in Ser um or PlasmaOrdered By: Clarence Matias on 03-04-2024 Glucose [Mass/Vol] Glucose [Mass/volume ] in Serum or Plasma High 70-100 [facility] Comment on above: ADA recommended refe rence rangeRandom Glucose Reference Range is dependent on time and content of last meal. Glucose of more than 200 mg/dL in a nonstressed, ambulatory subject supports the diagnosis of Diabetes Mellitus. Hematocrit Auto (Bld) [Volum e fraction]Ordered By: Clarence Matias on 03-04-2024 Hematocrit (Bld) [Volume fraction] Hematocrit [Volume Fraction] of Blood by Automated count Low 34.0-46.4 [facility] Hemoglobin [Mass/volume] in BloodOrdered By: Clarence Matias on 03-04-2024 Hemoglobin (Bld) [Mass/Vol] Hemoglobin [Mass/volume] in Blood Low 11.8-15.4 [facility] Leukocytes [#/volume] correc hugh for nucleated erythrocytes in Blood by Automated counOrdered By: Clarence Matias on 03-04-2024 WBC corrected for nucl RBC Auto (Bld) [#/Vol] Leukocytes [#/volume] corrected for nucleated erythrocytes in Blood by Automated coun 3.8-11.6 [facility] Lymphocytes Auto (Bld) [#/Vo l]Ordered By: Clarence Matias on 03-04-2024 Lymphocytes (Bld) [#/Vol] Lymphocytes [#/volume] in Blood by Automated count 1.00-4.8 [facility] Lymphocytes/100 WBC Auto (Bl d)Ordered By: Clarence Matias on 03-04-2024 Lymphocytes/100 WBC (Bld) Lymphocytes/100 leukocytes in Blood by Automated count . [facility] MCH Auto (RBC) [Entitic mass ]Ordered By: Clarence Mtaias on 03-04-2024 MCH (RBC) [Entitic mass] MCH [Entitic mass] by Automated count 24.7-34.3 [facility] MCHC Auto (RBC) [Mass/Vol]Or dered By: Clarence Matias on 03-04-2024 MCHC (RBC) [Mass/Vol] MCHC [Mass/volume] by Automated count 32.0-35.0 [facility] MCV Auto (RBC) [Entitic vol] Ordered By: Clarence Matias on 03-04-2024 MCV (RBC) [Entitic vol] MCV [Entitic volume] by Automated count 80-100 [facility] Monocytes Auto (Bld) [#/Vol] Ordered By: Clarence Matias on 03-04-2024 Monocytes (Bld) [#/Vol] Automated blood monocyte count 0.0-0.8 [facility] Monocytes/100 WBC Auto (Bld) Ordered By: Clarence Matias on 03-04-2024 Monocytes/100 WBC (Bld) Automated monocyte % . [facility] Neutrophils Auto (Bld) [#/Vo l]Ordered By: Clarence Matias on 03-04-2024 Neutrophils (Bld) [#/Vol] Neutrophils [#/volume] in Blood by Automated count 1.8-7.7 [facility] Neutrophils/100 WBC Auto (Bl d)Ordered By: Clarence Matias on 03-04-2024 Neutrophils/100 WBC (Bld) Automated neutrophil % . [facility] No Panel InformationOrdered By: Clarence Matias on 03-04-2024 Bedside Glucose Comment Glu2: cleaned meter [facility] Glu2: cleaned meter [facility] Estimated GFR (CKD-EPI) 51.248 mL/Min [facility] Creatinine Clearance (Chem 46.78 [facility] 51.248 mL/Min [facility] 46.78 [facility] Nucleated erythrocytes [Pres ence] in Blood by Automated countOrdered By: Clarence Matias on 03-04-2024 Nucleated RBC Auto Ql (Bld) Nucleated erythrocytes [Presence] in Blood by Automated count 0-0.5 [facility] Platelet adequacy [Presence] in Blood by Light microscopyOrdered By: Clarence Matias on 03-04-2024 Platelets LM Ql (Bld) Platelet adequacy [Presence] in Blood by Light microscopy Normal [facility] Platelet mean volume Auto (B ld) [Entitic vol]Ordered By: Clarence Matias on 03-04-2024 Platelet mean volume (Bld) [Entitic vol] Platelet mean volume [Entitic volume] in Blood by Automated count 6.3-10.7 [facility] Platelet morphology finding [Identifier] in BloodOrdered By: Clarence Matias on 03-04-2024 Platelet morphology finding Nom (Bld) Platelet morphology finding [Identifier] in Blood Normal [facility] Platelets Auto (Bld) [#/Vol] Ordered By: Clarence Matias on 03-04-2024 Platelets (Bld) [#/Vol] Platelets [#/volume] in Blood by Automated count 150-450 [facility] Potassium [Moles/volume] in Serum or PlasmaOrdered By: Clarence Matias on 03-04-2024 Potassium [Moles/Vol] Potassium [Moles/v olume] in Serum or Plasma 3.5-5.1 [facility] RBC Auto (Bld) [#/Vol]Ordere d By: Clarence Matias on 03-04-2024 RBC (Bld) [#/Vol] Erythrocytes [#/volu me] in Blood by Automated count 3.60-5.00 [facility] Scan and CBCon 03-04-2024 Basophils (Bld) [#/Vol] 0.0 10*3/uL Normal 0.0-0.2 [facility] Comment on above: Performed By: #### S CAN CBC, BMP ####[address] Basophils/100 WBC (Bld) 0.3 % Normal . [facility] Comment on above: Performed By: #### S CAN CBC, BMP ####[address] Eosinophils (Bld) [#/Vol] 0.0 10*3/uL Normal 0.0-0.45 [facility] Comment on above: Performed By: #### S CAN CBC, BMP ####[address] Eosinophils/100 WBC (Bld) 0.1 % Normal . [facility] Comment on above: Performed By: #### S CAN CBC, BMP ####[address] Erythrocyte distribution width (RBC) [Ratio] 14.4 % Normal 11.9-15.3 [facility] Comment on above: Performed By: #### S CAN CBC, BMP ####[address] Hematocrit (Bld) [Volume fraction] 33.7 % Low 34.0-46.4 [facility] Comment on above: Performed By: #### S CAN CBC, BMP ####[address] Hemoglobin (Bld) [Mass/Vol] 11.0 g/dL Low 11.8-15.4 [facility] Comment on above: Performed By: #### S CAN CBC, BMP ####[address] [place] [address] [place] Lymphocytes (Bld) [#/Vol] 1.5 10*3/uL Normal 1.00-4.8 [facility] Comment on above: Performed By: #### S CAN CBC, BMP ####[address] Lymphocytes/100 WBC (Bld) 18.1 % Normal . [facility] Comment on above: Performed By: #### S CAN CBC, BMP ####[address] MCH (RBC) [Entitic mass] 27.9 pg Normal 24.7-34.3 [facility] Comment on above: Performed By: #### S CAN CBC, BMP ####[address] MCV (RBC) [Entitic vol] 85.9 fL Normal 80-100 [facility] Comment on above: Performed By: #### S CAN CBC, BMP ####[address] Mean Corpuscular HGB Conc 32.5 g/dL Normal 32.0-35.0 [facility] Comment on above: Performed By: #### S CAN CBC, BMP ####[address] Monocytes (Bld) [#/Vol] 0.6 10*3/uL Normal 0.0-0.8 [facility] Comment on above: Performed By: #### S CAN CBC, BMP ####[address] Monocytes/100 WBC (Bld) 7.7 % Normal . [facility] Comment on above: Performed By: #### S CAN CBC, BMP ####[address] Neutrophils (Bld) [#/Vol] 6.2 10*3/uL Normal 1.8-7.7 [facility] Comment on above: Performed By: #### S CAN CBC, BMP ####[id number] [place] [address] [facility] Neutrophils/100 WBC (Bld) 73.8 % Normal . [facility] Comment on above: Performed By: #### S CAN CBC, BMP ####[id number] [place] [address] [facility] NRBC% 0.1 /100{WBC} Normal 0-0.5 The [facility] Comment on above: Performed By: #### S CAN CBC, BMP ####[address] [address] [facility] Platelet Estimate Normal Normal Normal The [facility] Comment on above: Performed By: #### S CAN CBC, BMP ####[id number] [place] [id number] [facility] Platelet mean volume (Bld) [Entitic vol] 8.0 fL Normal 6.3-10.7 The [facility] Comment on above: Performed By: #### S CAN CBC, BMP ####[address] [id number] [facility] Platelet Morphology Normal Normal Normal The [facility] Comment on above: Result Comment: PERF ORMED BY:[address] [place], [place] [phone] MEDICAL DIRECTORMOBRIANNA MENA M.D. Performed By: #### S CAN CBC, BMP ####[address] [address] [facility] Platelets (Bld) [#/Vol] 195 10*3/uL Normal 150-450 [facility] Comment on above: Performed By: #### S CAN CBC, BMP ####[address] [address] [facility] RBC (Bld) [#/Vol] 3.92 10*6/uL Normal 3.60-5.00 [facility] Comment on above: Performed By: #### S CAN CBC, BMP ####[id number] [facility] RBC morphology finding Nom (Bld) Normal Normal Normal [facility] Comment on above: Performed By: #### S CAN CBC, BMP ####[facility] Afs[address] Toxic Vacuolation Slight Normal [facility] Comment on above: Performed By: #### S CAN CBC, BMP ####[facility] Cnp8986 [place] [id number] [facility] WBC (Bld) [#/Vol] 8.4 10*3/uL Normal 3.8-11.6 The [facility] Comment on above: Performed By: #### S CAN CBC, BMP ####[facility] Apf8498 [address] Serum or plasma anion gap de terminationOrdered By: Clarence Matias on 03-04-2024 Anion gap [Moles/Vol] Serum or plasma an ion gap determination 6.0-15.0 [facility] Sodium [Moles/volume] in Ser um or PlasmaOrdered By: Clarence Matias on 03-04-2024 Sodium [Moles/Vol] Sodium [Moles/volume ] in Serum or Plasma 136-145 [facility] Toxic leukocyte vacuolation detectionOrdered By: Clarence Matias on 03-04-2024 Leukocyte toxic vacuoles LM Ql (Bld) Toxic leukocyte vacuolation detection [facility] Urea nitrogen [Mass/volume] in Serum or PlasmaOrdered By: Clarence Matias on 03-04-2024 Urea nitrogen [Mass/Vol] Urea nitrogen [Mass/volume] in Serum or Plasma High 7-25 [facility] WBC Auto (Bld) [#/Vol]Ordere d By: Clarence Matias on 03-04-2024 WBC (Bld) [#/Vol] Leukocytes [#/volume ] in Blood by Automated count 3.8-11.6 [facility] Anisocytosis LM Ql (Bld)Orde red By: Clarence Matias on 03-03-2024 Anisocytosis Ql (Bld) Anisocytosis [Pres ence] in Blood by Light microscopy [facility] Basic Metabolic Panelon 02-05 Anion gap [Moles/Vol] 12.8 mmol/L Normal 6.0-15.0 Th e [facility] Comment on above: Performed By: #### S CAN CBC, BMP ####[id number] Calcium [Mass/Vol] 9.0 mg/dL Normal 8.6-10.3 [facility] Comment on above: Performed By: #### S CAN CBC, BMP ####[address] Chloride [Moles/Vol] 101 mmol/L Normal 98-107 [facility] Comment on above: Performed By: #### S CAN CBC, BMP ####[address] CO2 [Moles/Vol] 30.8 mmol/L Normal 21.0-31.0 The [facility] Comment on above: Performed By: #### S CAN CBC, BMP ####[address] Creatinine [Mass/Vol] 1.27 mg/dL High 0.60-1.20 [facility] Comment on above: Performed By: #### S CAN CBC, BMP ####[address] Creatinine Clr Calc Pharmacy 42.23 Normal [facility] Comment on above: Result Comment: PERF ORMED BY:[address] [place], [place] [phone] MEDICAL DIRECTORDOROTHY MENA M.D. Performed By: #### S CAN CBC, BMP ####[address] [place] [id number] [facility] Estimated GFR 45.494 mL/Min Normal The [facility] Comment on above: Performed By: #### S CAN CBC, BMP ####[place] [id number] [facility] Potassium [Moles/Vol] 4.6 mmol/L Normal 3.5-5.1 [facility] Comment on above: Performed By: #### S CAN CBC, BMP ####[facility] [place] [address] [facility] Sodium [Moles/Vol] 140 mmol/L Normal 136-145 [facility] Comment on above: Performed By: #### S CAN CBC, BMP ####[facility] [place] [address] [facility] Urea nitrogen [Mass/Vol] 35 mg/dL High 7-25 [facility] Comment on above: Performed By: #### S CAN CBC, BMP ####[facility] [place] [address] [facility] Glucose Poct Glucometerson 1 05-04-2023 Glucose [Mass/Vol] 180 mg/dL Normal The [facility] Comment on above: Result Comment: [facility] om Glucose Reference Range is dependent on time and content of last meal. Glucose of more than 200 mg/dL in a nonstressed, ambulatory subject supports the diagnosis of Diabetes Mellitus.PERFORMED BY:[address] [address]REYÓscarCecyR[place], [place] [id number] MEDICAL DIRECTORDOROTHY MENA M.D. Performed By: #### G LULS ####Point of Care testing, Commemt1 Glu2: Cleaned Meter Normal The [facility] Comment on above: Result Comment: PERF ORMED BY:[address] [place], [place] [phone] MEDICAL DIRECTORMOBRIANNA MENA M.D. Performed By: #### G LULS ####Point of Care testing, Glucose [Mass/Vol] 151 mg/dL High 70-100 The [facility] Comment on above: Result Comment: [facility] om Glucose Reference Range is dependent on time and content of last meal. Glucose of more than 200 mg/dL in a nonstressed, ambulatory subject supports the diagnosis of Diabetes Mellitus. Performed By: #### G LULS ####Point of Care testing, Result Comment: [facility] om Glucose Reference Range is dependent on time and content of last meal. Glucose of more than 200 mg/dL in a nonstressed, ambulatory subject supports the diagnosis of Diabetes Mellitus. ADA recommended reference range Performed By: #### S CAN CBC, BMP ####[address] [address] [facility] Glucose [Mass/Vol] 222 mg/dL Normal The [facility] Comment on above: Result Comment: [facility] om Glucose Reference Range is dependent on time and content of last meal. Glucose of more than 200 mg/dL in a nonstressed, ambulatory subject supports the diagnosis of Diabetes Mellitus.PERFORMED BY:[address] [place], [place] [phone] MEDICAL DIRECTORDOROTHY MENA M.D. Performed By: #### G LULS ####Point of Care testing, Glucose [Mass/Vol] 139 mg/dL Normal The [facility] Comment on above: Result Comment: [facility] om Glucose Reference Range is dependent on time and content of last meal. Glucose of more than 200 mg/dL in a nonstressed, ambulatory subject supports the diagnosis of Diabetes Mellitus.PERFORMED BY:[address] [place], [place] [phone] MEDICAL DIRECTORDOROTHY MENA M.D. Performed By: #### G LULS ####Point of Care testing, Microcytes LM Ql (Bld)Ordere d By: Clarence Matias on 03-03-2024 Microcytes Ql (Bld) Microcytes [Presence ] in Blood by Light microscopy [facility] Ovalocytes [Presence] in Blo od by Light microscopyOrdered By: Clarence Matias on 03-03-2024 Ovalocytes LM Ql (Bld) Ovalocyte detection [facility] Poikilocytosis [Presence] in Blood by Light microscopyOrdered By: Clarence Matias on 03-03-2024 Poikilocytosis LM Ql (Bld) Poikilocytosis [Presence] in Blood by Light microscopy [facility] Polychromasia [Presence] in Blood by Light microscopyOrdered By: Clarence Matias on 03-03-2024 Polychromasia LM Ql (Bld) Polychromasia [Presence] in Blood by Light microscopy [facility] Scan and CBCon 03-03-2024 Anisocytosis Ql (Bld) Moderate Normal [facility] Comment on above: Performed By: #### S CAN CBC, BMP ####[address] Basophils (Bld) [#/Vol] 0.0 10*3/uL Normal 0.0-0.2 [facility] Comment on above: Performed By: #### S CAN CBC, BMP ####[address] [id number] [facility] Basophils/100 WBC (Bld) 0.2 % Normal . [facility] Comment on above: Performed By: #### S CAN CBC, BMP ####[address] Eosinophils (Bld) [#/Vol] 0.0 10*3/uL Normal 0.0-0.45 [facility] Comment on above: Performed By: #### S CAN CBC, BMP ####[address] Eosinophils/100 WBC (Bld) 0.0 % Normal . [facility] Comment on above: Performed By: #### S CAN CBC, BMP ####[address] Erythrocyte distribution width (RBC) [Ratio] 14.7 % Normal 11.9-15.3 [facility] Comment on above: Performed By: #### S CAN CBC, BMP ####[address] [id number] [facility] Hematocrit (Bld) [Volume fraction] 32.4 % Low 34.0-46.4 [facility] Comment on above: Performed By: #### S CAN CBC, BMP ####[address] [id number] [facility] Hemoglobin (Bld) [Mass/Vol] 10.6 g/dL Low 11.8-15.4 [facility] Comment on above: Performed By: #### S CAN CBC, BMP ####[address] Lymphocytes (Bld) [#/Vol] 0.7 10*3/uL Low 1.00-4.8 [facility] Comment on above: Performed By: #### S CAN CBC, BMP ####[address] Lymphocytes/100 WBC (Bld) 6.3 % Normal . [facility] Comment on above: Performed By: #### S CAN CBC, BMP ####[address] MCH (RBC) [Entitic mass] 27.5 pg Normal 24.7-34.3 [facility] Comment on above: Performed By: #### S CAN CBC, BMP ####[address] MCV (RBC) [Entitic vol] 84.5 fL Normal 80-100 [facility] Comment on above: Performed By: #### S CAN CBC, BMP ####[address] Mean Corpuscular HGB Conc 32.6 g/dL Normal 32.0-35.0 [facility] Comment on above: Performed By: #### S CAN CBC, BMP ####[address] Microcytosis Moderate Normal The [facility] Comment on above: Performed By: #### S CAN CBC, BMP ####[address] Monocytes (Bld) [#/Vol] 0.5 10*3/uL Normal 0.0-0.8 [facility] Comment on above: Performed By: #### S CAN CBC, BMP ####[address] Monocytes/100 WBC (Bld) 4.9 % Normal . [facility] Comment on above: Performed By: #### S CAN CBC, BMP ####[address] [place] [address] [facility] Neutrophils (Bld) [#/Vol] 9.9 10*3/uL High 1.8-7.7 [facility] Comment on above: Performed By: #### S CAN CBC, BMP ####[address] [place] [address] [facility] Neutrophils/100 WBC (Bld) 88.6 % Normal . [facility] Comment on above: Performed By: #### S CAN CBC, BMP ####[address] [address] [facility] NRBC% 0.1 /100{WBC} Normal 0-0.5 [facility] Comment on above: Performed By: #### S CAN CBC, BMP ####[address] [address] [facility] Ovalocytes Slight Normal [facility] Comment on above: Performed By: #### S CAN CBC, BMP ####[address] [address] [facility] Platelet Estimate Normal Normal Normal The [facility] Comment on above: Performed By: #### S CAN CBC, BMP ####[address] [address] [facility] Platelet mean volume (Bld) [Entitic vol] 8.2 fL Normal 6.3-10.7 The [facility] Comment on above: Performed By: #### S CAN CBC, BMP ####[address] [address] [facility] Platelet Morphology Normal Normal Normal The [facility] Comment on above: Result Comment: PERF ORMED BY:[address] [place], [place] [phone] MEDICAL DIRECTORDOROTHY MENA M.D. Performed By: #### S CAN CBC, BMP ####[address] [address] [facility] Platelets (Bld) [#/Vol] 225 10*3/uL Normal 150-450 [facility] Comment on above: Performed By: #### S CAN CBC, BMP ####[address] [address] [facility] Poikilocytosis Slight Normal The [facility] Comment on above: Performed By: #### S CAN CBC, BMP ####[facility] [place] [address] [facility] Polychromasia Slight Normal The [facility] Comment on above: Performed By: #### S CAN CBC, BMP ####[address] [address] [facility] RBC (Bld) [#/Vol] 3.83 10*6/uL Normal 3.60-5.00 The [facility] Comment on above: Performed By: #### S CAN CBC, BMP ####[address] [address] [facility] WBC (Bld) [#/Vol] 11.2 10*3/uL Normal 3.8-11.6 [facility] Comment on above: Performed By: #### S CAN CBC, BMP ####[address] [address] [facility] Basic Metabolic Panelon 12-2 Anion gap [Moles/Vol] 11.3 mmol/L Normal 6.0-15.0 [facility] Comment on above: Performed By: #### B MP, [id number] ####[address] [address] [facility] Calcium [Mass/Vol] 8.9 mg/dL Normal 8.6-10.3 [facility] Comment on above: Performed By: #### B MP, [id number] ####[address] [address] [facility] Chloride [Moles/Vol] 99 mmol/L Normal 98-107 [facility] Comment on above: Performed By: #### B MP, [id number] ####[address] [address] [facility] CO2 [Moles/Vol] 32.6 mmol/L High 21.0-31.0 The [facility] Comment on above: Performed By: #### B DIANNE, [id number] ####[place] [id number] [facility] Creatinine [Mass/Vol] 1.46 mg/dL High 0.60-1.20 [facility] Comment on above: Performed By: #### B DIANNE, [id number] ####[place] [id number] [facility] Creatinine Clr Calc Pharmacy 36.73 Normal [facility] Comment on above: Performed By: #### B DIANNE, [id number] ####[address] [address] [facility] Estimated GFR 38.485 mL/Min Normal The [facility] Comment on above: Performed By: #### B DIANNE, [id number] ####[address] [id number] [facility] Glucose [Mass/Vol] 157 mg/dL High 70-100 [facility] Comment on above: Result Comment: [facility] Glucose Reference Range is dependent on time and content of last meal. Glucose of more than 200 mg/dL in a nonstressed, ambulatory subject supports the diagnosis of Diabetes Mellitus. ADA recommended reference range Performed By: #### B DIANNE, [id number] ####[address] [id number] [facility] Potassium [Moles/Vol] 4.9 mmol/L Significan t change down 3.5-5.1 [facility] Comment on above: Performed By: #### B DIANNE, [id number] ####[address] [address] [facility] Sodium [Moles/Vol] 138 mmol/L Normal 136-145 [facility] Comment on above: Performed By: #### B DIANNE, [id number] ####[address] [address] [facility] Urea nitrogen [Mass/Vol] 36 mg/dL High 7-25 [facility] Comment on above: Performed By: #### B DIANNE, [id number] ####[address] [address] [facility] Complete Blood Count Auto Di ffon 03-02-2024 Basophils (Bld) [#/Vol] 0.0 10*3/uL Normal 0.0-0.2 [facility] Comment on above: Result Comment: PERF ORMED BY:[address] [place], [place] [phone] MEDICAL DIRECTORDOROTHY MENA M.D. Performed By: #### C BC ####[address] [id number] [facility] Basophils/100 WBC (Bld) 0.0 % Normal . [facility] Comment on above: Performed By: #### C BC ####[address] Eosinophils (Bld) [#/Vol] 0.0 10*3/uL Normal 0.0-0.45 [facility] Comment on above: Performed By: #### C BC ####[address] [id number] [facility] Eosinophils/100 WBC (Bld) 0.0 % Normal . [facility] Comment on above: Performed By: #### C BC ####[address] [id number] [facility] Erythrocyte distribution width (RBC) [Ratio] 14.9 % Normal 11.9-15.3 [facility] Comment on above: Performed By: #### C BC ####[place] [id number] [facility] Hematocrit (Bld) [Volume fraction] 30.5 % Low 34.0-46.4 [facility] Comment on above: Performed By: #### C BC ####[place] [id number] [facility] Hemoglobin (Bld) [Mass/Vol] 10.2 g/dL Low 11.8-15.4 [facility] Comment on above: Performed By: #### C BC ####[address] Lymphocytes (Bld) [#/Vol] 0.8 10*3/uL Low 1.00-4.8 [facility] Comment on above: Performed By: #### C BC ####[address] Lymphocytes/100 WBC (Bld) 6.0 % Normal . [facility] Comment on above: Performed By: #### C BC ####[address] MCH (RBC) [Entitic mass] 28.4 pg Normal 24.7-34.3 [facility] Comment on above: Performed By: #### C BC ####[address] MCV (RBC) [Entitic vol] 85.0 fL Normal 80-100 [facility] Comment on above: Performed By: #### C BC ####[address] Mean Corpuscular HGB Conc 33.4 g/dL Normal 32.0-35.0 [facility] Comment on above: Performed By: #### C BC ####[address] Monocytes (Bld) [#/Vol] 0.4 10*3/uL Normal 0.0-0.8 [facility] Comment on above: Performed By: #### C BC ####[address] Monocytes/100 WBC (Bld) 2.6 % Normal . [facility] Comment on above: Performed By: #### C BC ####[address] Neutrophils (Bld) [#/Vol] 12.1 10*3/uL High 1.8-7.7 [facility] Comment on above: Performed By: #### C BC ####[address] Neutrophils/100 WBC (Bld) 91.4 % Normal . [facility] Comment on above: Performed By: #### C BC ####[address] [address] [facility] NRBC% 0.0 /100{WBC} Normal 0-0.5 [facility] Comment on above: Performed By: #### C BC ####[address] [address] [facility] Platelet mean volume (Bld) [Entitic vol] 8.1 fL Normal 6.3-10.7 The [facility] Comment on above: Performed By: #### C BC ####[address] [address] [facility] Platelets (Bld) [#/Vol] 182 10*3/uL Normal 150-450 [facility] Comment on above: Performed By: #### C BC ####[place] [id number] [facility] RBC (Bld) [#/Vol] 3.59 10*6/uL Low 3.60-5.00 [facility] Comment on above: Performed By: #### C BC ####[place] [id number] [facility] WBC (Bld) [#/Vol] 13.3 10*3/uL High 3.8-11.6 [facility] Comment on above: Performed By: #### C BC ####[address] [address] [facility] Glucose Poct Glucometerson 1 05-03-2023 Glucose [Mass/Vol] 168 mg/dL Normal [facility] Comment on above: Result Comment: [facility] Glucose Reference Range is dependent on time and content of last meal. Glucose of more than 200 mg/dL in a nonstressed, ambulatory subject supports the diagnosis of Diabetes Mellitus.PERFORMED BY:[address] [place], [place] [phone] MEDICAL DIRECTORDOROTHY MENA M.D. Performed By: #### G LULS ####Point of Care testing, Glucose [Mass/Vol] 232 mg/dL Normal The [facility] Comment on above: Result Comment: [facility] om Glucose Reference Range is dependent on time and content of last meal. Glucose of more than 200 mg/dL in a nonstressed, ambulatory subject supports the diagnosis of Diabetes Mellitus.PERFORMED BY:[address] [address] [address] [place]ÁN[place], [place] [phone] MEDICAL DIRECTORLASHAWNFORMERLY SELF MEMORIAL HOSPITALAMANDA Guerrier Performed By: #### G LULS ####Point of Care testing, Glucose [Mass/Vol] 201 mg/dL Normal The [facility] Comment on above: Result Comment: [facility] om Glucose Reference Range is dependent on time and content of last meal. Glucose of more than 200 mg/dL in a nonstressed, ambulatory subject supports the diagnosis of Diabetes Mellitus.PERFORMED BY:[address] HERNÁNDEZNORTH ADAMS, [place] [phone] MEDICAL DIRECTORLASHAWNFORMERLY SELF MEMORIAL HOSPITALAMANDA Guerrier Performed By: #### G LULS ####Point of Care testing, Glucose [Mass/Vol] 146 mg/dL Normal The [facility] Comment on above: Result Comment: [facility] om Glucose Reference Range is dependent on time and content of last meal. Glucose of more than 200 mg/dL in a nonstressed, ambulatory subject supports the diagnosis of Diabetes Mellitus.PERFORMED BY:[address] [address] [address] [place]ER[place], [place] [phone] MEDICAL DIRECTORLASHAWNFORMERLY SELF MEMORIAL HOSPITALAMANDA Guerrier Performed By: #### G LULS ####Point of Care testing, Troponin I High Sensitivityo n 03-02-2024 Troponin I High Sensitivity 81.5 pg/mL Off scale high 0.0-15.0 [facility] Comment on above: Result Comment: Crit ical Result : Called to and read back by: APOLLO STUBBS at: 03/02/2024 06:13:38 by:GONZALOERFORMED BY:[address] [address] [address] HERRERADANIEL[place], [place] [phone] MEDICAL DIRECTORDOROTHY MENA M.D. Performed By: #### H S TROP ####[id number] [place] [address] [facility] Troponin I.cardiac [Mass/vol ume] in Serum or Plasma by Detection limit <= 0.01 ng/Ordered By: Clarence Matias on 03-02-2024 Troponin I.cardiac DL <= 0.01 ng/mL [Mass/Vol] Troponin I.cardiac [Mass/volume] in Serum or Plasma by Detection limit <= 0.01 ng/ Critically high 0.0-15.0 [facility] Comment on above: Critical Result : Ca lled to and read back by: APOLLO STUBBS at: 03/02/2024 06:13:38 by:MLG Vitamin D 25 Hydroxy Totalon 03-02-2024 Vitamin D 25 Hydroxy Total 53.5 ng/mL Normal 30-100 [facility] Comment on above: Result Comment: ADRI MIN D STATUS 25(OH)VITAMIN D RANGE (ng/mL) Deficient <20 Insufficient 20 to <30 Sufficient 30 to 100 Reference: Frannie BAIN,Oumar NC, Radha MCGOWAN, et al. Evaluation,treatment, and prevention of vitamin D deficiency; an Endocrine Society clinical practice guideline. JCEM. 2010; 96(7):1911-30.PERFORMED BY:[address] [place] [place], [place] [phone] MEDICAL DIRECTORDOROTHY MENA M.D. Performed By: #### B MP, [id number] ####[id number] [place] [address] [facility] Vitamin D+Metabolites [Mass/ volume] in Serum or PlasmaOrdered By: Clarence Matias on 03-02-2024 Vitamin D+Metabolites [Mass/Vol] Vitamin D+Metabolites [Mass/volume] in Serum or Plasma 30-100 [facility] Comment on above: VITAMIN D STATUS 25( [place])VITAMIN D RANGE (ng/mL) Deficient <20 Insufficient 20 to <30Sufficient 30 to 100Reference: Frannie MF,Oumar NC, Radha MCGOWAN, et al. Evaluation,treatment, and prevention of vitamin D deficiency; an Endocrine Society clinical practice guideline. JCEM. 2010; 96(7):1911-30. Basic Metabolic Panelon 12-2 Anion gap [Moles/Vol] 16.1 mmol/L High 6.0-15.0 [facility] e [facility] Comment on above: Performed By: #### H S TROP, MG, BMP, CBC ####[id number] [facility] Calcium [Mass/Vol] 8.7 mg/dL Normal 8.6-10.3 [facility] Comment on above: Performed By: #### H S TROP, MG, BMP, CBC ####[id number] [facility] Chloride [Moles/Vol] 97 mmol/L Low 98-107 [facility] Comment on above: Performed By: #### H S TROP, MG, BMP, CBC ####[id number] [facility] CO2 [Moles/Vol] 31.3 mmol/L High 21.0-31.0 [facility] Comment on above: Performed By: #### H S TROP, MG, BMP, CBC ####[address] [address] [facility] Creatinine [Mass/Vol] 1.39 mg/dL High 0.60-1.20 [facility] Comment on above: Performed By: #### H S TROP, MG, BMP, CBC ####[address] [address] [facility] Creatinine Clr Calc Pharmacy 38.30 Normal [facility] Comment on above: Performed By: #### H S TROP, MG, BMP, CBC ####[address] [address] [facility] Estimated GFR 40.823 mL/Min Normal [facility] Comment on above: Performed By: #### H S TROP, MG, BMP, CBC ####[address] Glucose [Mass/Vol] 163 mg/dL High 70-100 The [facility] Comment on above: Result Comment: [facility] Glucose Reference Range is dependent on time and content of last meal. Glucose of more than 200 mg/dL in a nonstressed, ambulatory subject supports the diagnosis of Diabetes Mellitus. ADA recommended reference range Performed By: #### H S TROP, MG, BMP, CBC ####[address] Potassium [Moles/Vol] 3.4 mmol/L Low 3.5-5.1 [facility] Comment on above: Performed By: #### H S TROP, MG, BMP, CBC ####[address] Sodium [Moles/Vol] 141 mmol/L Normal 136-145 [facility] Comment on above: Performed By: #### H S TROP, MG, BMP, CBC ####[address] Urea nitrogen [Mass/Vol] 24 mg/dL Normal 7-25 [facility] Comment on above: Performed By: #### H S TROP, MG, BMP, CBC ####[address] Complete Blood Count Auto Di ffon 03-01-2024 Basophils (Bld) [#/Vol] 0.1 10*3/uL Normal 0.0-0.2 [facility] Comment on above: Result Comment: PERF ORMED BY:[address] [place], [place] [phone] MEDICAL DIRECTORDOROTHY MENA M.D. Performed By: #### H S TROP, MG, BMP, CBC ####[address] Basophils/100 WBC (Bld) 0.4 % Normal . [facility] Comment on above: Performed By: #### H S TROP, MG, BMP, CBC ####[address] Eosinophils (Bld) [#/Vol] 0.0 10*3/uL Normal 0.0-0.45 [facility] Comment on above: Performed By: #### H S TROP, MG, BMP, CBC ####[address] Eosinophils/100 WBC (Bld) 0.0 % Normal . [facility] Comment on above: Performed By: #### H S TROP, MG, BMP, CBC ####[address] Erythrocyte distribution width (RBC) [Ratio] 15.0 % Normal 11.9-15.3 [facility] Comment on above: Performed By: #### H S TROP, MG, BMP, CBC ####[address] Hematocrit (Bld) [Volume fraction] 35.1 % Normal 34.0-46.4 [facility] Comment on above: Performed By: #### H S TROP, MG, BMP, CBC ####[address] Hemoglobin (Bld) [Mass/Vol] 11.4 g/dL Low 11.8-15.4 [facility] Comment on above: Performed By: #### H S TROP, MG, BMP, CBC ####[address] Lymphocytes (Bld) [#/Vol] 0.7 10*3/uL Low 1.00-4.8 [facility] Comment on above: Performed By: #### H S TROP, MG, BMP, CBC ####[address] Lymphocytes/100 WBC (Bld) 3.7 % Normal . [facility] Comment on above: Performed By: #### H S TROP, MG, BMP, CBC ####[address] MCH (RBC) [Entitic mass] 27.9 pg Normal 24.7-34.3 [facility] Comment on above: Performed By: #### H S TROP, MG, BMP, CBC ####[address] MCV (RBC) [Entitic vol] 85.8 fL Normal 80-100 [facility] Comment on above: Performed By: #### H S TROP, MG, BMP, CBC ####[address] Mean Corpuscular HGB Conc 32.5 g/dL Normal 32.0-35.0 [facility] Comment on above: Performed By: #### H S TROP, MG, BMP, CBC ####[address] Monocytes (Bld) [#/Vol] 0.8 10*3/uL Normal 0.0-0.8 [facility] Comment on above: Performed By: #### H S TROP, MG, BMP, CBC ####[address] Monocytes/100 WBC (Bld) 3.9 % Normal . [facility] Comment on above: Performed By: #### H S TROP, MG, BMP, CBC ####[address] Neutrophils (Bld) [#/Vol] 18.4 10*3/uL High 1.8-7.7 [facility] Comment on above: Performed By: #### H S TROP, MG, BMP, CBC ####[address] Neutrophils/100 WBC (Bld) 92.0 % Normal . [facility] Comment on above: Performed By: #### H S TROP, MG, BMP, CBC ####[address] NRBC% 0.0 /100{WBC} Normal 0-0.5 [facility] Comment on above: Performed By: #### H S TROP, MG, BMP, CBC ####[id number] [facility] Platelet mean volume (Bld) [Entitic vol] 7.9 fL Normal 6.3-10.7 The [facility] Comment on above: Performed By: #### H S TROP, MG, BMP, CBC ####[id number] [facility] Platelets (Bld) [#/Vol] 204 10*3/uL Normal 150-450 [facility] Comment on above: Performed By: #### H S TROP, MG, BMP, CBC ####[address] RBC (Bld) [#/Vol] 4.09 10*6/uL Normal 3.60-5.00 The [facility] Comment on above: Performed By: #### H S TROP, MG, BMP, CBC ####[id number] [facility] WBC (Bld) [#/Vol] 20.0 10*3/uL High 3.8-11.6 [facility] Comment on above: Performed By: #### H S TROP, MG, BMP, CBC ####[id number] [facility] ECG 12 lead ECGon 03-01-2024 ECG 12 lead ECG Normal The [facility] Glucose Poct Glucometerson 1 05-02-2023 Glucose [Mass/Vol] 147 mg/dL Normal The [facility] Comment on above: Result Comment: [facility] Glucose Reference Range is dependent on time and content of last meal. Glucose of more than 200 mg/dL in a nonstressed, ambulatory subject supports the diagnosis of Diabetes Mellitus.PERFORMED BY:[address] [place], [place] [phone] MEDICAL DIRECTORDOROTHY MENA M.D. Performed By: #### G LULS ####Point of Care testing, Commemt1 Glu2: Cleaned Meter Normal [facility] Comment on above: Result Comment: PERF ORMED BY:[address] [place]ec[place], [place] [phone] MEDICAL DIRECTORDOROTHY MENA M.D. Performed By: #### G LULS ####Point of Care testing, Glucose [Mass/Vol] 178 mg/dL Normal The [facility] Comment on above: Result Comment: [facility] om Glucose Reference Range is dependent on time and content of last meal. Glucose of more than 200 mg/dL in a nonstressed, ambulatory subject supports the diagnosis of Diabetes Mellitus. Performed By: #### G LULS ####Point of Care testing, Commemt1 Glu2: Cleaned Meter Normal [facility] Comment on above: Result Comment: PERF ORMED BY:[address] [place], [place] [phone] MEDICAL DIRECTORMOBRIANNA MENA M.D. Performed By: #### G LULS ####Point of Care testing, Glucose [Mass/Vol] 153 mg/dL Normal [facility] Comment on above: Result Comment: [facility] om Glucose Reference Range is dependent on time and content of last meal. Glucose of more than 200 mg/dL in a nonstressed, ambulatory subject supports the diagnosis of Diabetes Mellitus. Performed By: #### G LULS ####Point of Care testing, Magnesiumon 03-01-2024 Magnesium [Mass/Vol] 1.4 mg/dL Low 1.9-2.7 [facility] Comment on above: Result Comment: PERF ORMED BY:[address] [place], [place] [phone] MEDICAL DIRECTORDOROTHY MENA M.D. Performed By: #### H S TROP, MG, BMP, CBC ####[address] [address] [facility] Magnesium [Mass/volume] in S cait or PlasmaOrdered By: Clarence Matias on 03-01-2024 Magnesium [Mass/Vol] Magnesium [Mass/vol ume] in Serum or Plasma Low 1.9-2.7 [facility] Troponin I High Sensitivityo n 03-01-2024 Troponin I High Sensitivity 149.6 pg/mL Off scale high 0.0-15.0 [facility] Comment on above: Result Comment: Crit ical Result : Called to and read back by: PRECIOUS DOUGLAS at: 03/01/2024 14:00:35 by:MLGPERFORMED BY:[address] [place], [place] [phone] MEDICAL DIRECTORDOROTHY MENA M.D. Performed By: #### H S TROP ####[id number] [place] [address] [facility] Troponin I High Sensitivity 205.3 pg/mL Off scale high 0.0-15.0 [facility] Comment on above: Result Comment: Crit ical Result : Called to and read back by: APOLLO STUBBS at: 03/01/2024 06:38:06 by:DHPERFORMED BY:[address] [place], [place] [phone] MEDICAL DIRECTORDOROTHY MENA M.D. Performed By: #### H S TROP, MG, BMP, CBC ####[address] [address] [facility] XR chest 2V*on 03-01-2024 XR chest 2V* Normal The [facility] Appearance of UrineOrdered B y: Anderson Gould on 02-29-2024 Appearance (U) Urine appearance Abnormal Clear [facility] Arterial Blood Gason 024 ABG Base Excess 5.5 mmol/L High -3.0-3.0 The [facility] Comment on above: Performed By: #### A BG ####Point of Care testing, ABG Frac Inspired O2 100 % Normal [facility] Comment on above: Performed By: #### A BG ####Point of Care testing, ABG Oxygen Content 8.7 mmol/L Normal 6.6-9.7 [facility] Comment on above: Performed By: #### A BG ####Point of Care testing, ABG Oxygen Saturation 99.1 % Normal 95.0-100.0 [facility] Comment on above: Performed By: #### A BG ####Point of Care testing, ABG PCO2 51.0 mm[Hg] Off scale high 35.0-45.0 [facility] Comment on above: Performed By: #### A BG ####Point of Care testing, ABG PH 7.41 Normal 7.35-7.45 [facility] Comment on above: Performed By: #### A BG ####Point of Care testing, ABG PO2 162.2 mm[Hg] Off scale high 80.0-100.0 The [facility] Comment on above: Performed By: #### A BG ####Point of Care testing, Respiratory Critical Normal [facility] Comment on above: Result Comment: Crit ical Value called on: 02/29/2024 at 17:56PERFORMED BY:[facility] [place], [place] [phone] MEDICAL DIRECTORDOROTHY MENA M.D. Performed By: #### A BG ####Point of Care testing, VBG Draw Site Right Brachial Normal [facility] Comment on above: Performed By: #### A BG ####Point of Care testing, Arterial Blood GasOrdered By : Anderson Gould on 02-29-2024 CO2 [Moles/Vol] 32.9 mmol/L High 23.0-27.0 [facility] Comment on above: Performed By: #### A BG ####Point of Care testing, HCO3 (Bld) [Moles/Vol] 31.4 mmol/L High 23.0-29.0 [facility] Comment on above: Performed By: #### A BG ####Point of Care testing, B-Type Natriuretic Peptideon 02-29-2024 Natriuretic peptide B (Bld) [Mass/Vol] 77.0 pg/mL Normal 5-100 [facility] Comment on above: Result Comment: PERF ORMED BY:[address] [place], [place] [phone] MEDICAL DIRECTORDOROTHY MENA M.D. Performed By: #### C UBLD, LACTIC, CK, HS TROP, BNP, CBC, PT, BMP ####[id number] [facility] Bacteria [Presence] in Urine by AutomatedOrdered By: Anderson Gould on 02-29-2024 Bacteria Auto Ql (U) Bacteria [Presence] in Urine by Automated High None Seen [facility] Basic Metabolic Panelon 02-05 Anion gap [Moles/Vol] 13.4 mmol/L Normal 6.0-15.0 Th e [facility] Comment on above: Performed By: #### C UBLD, LACTIC, CK, HS TROP, BNP, CBC, PT, BMP ####[address] Calcium [Mass/Vol] 8.8 mg/dL Normal 8.6-10.3 [facility] Comment on above: Performed By: #### C UBLD, LACTIC, CK, HS TROP, BNP, CBC, PT, BMP ####[address] Chloride [Moles/Vol] 97 mmol/L Low 98-107 [facility] Comment on above: Performed By: #### C UBLD, LACTIC, CK, HS TROP, BNP, CBC, PT, BMP ####[id number] [facility] CO2 [Moles/Vol] 34.4 mmol/L High 21.0-31.0 [facility] Comment on above: Performed By: #### C UBLD, LACTIC, CK, HS TROP, BNP, CBC, PT, BMP ####[id number] [facility] Creatinine [Mass/Vol] 1.15 mg/dL Normal 0.60-1.20 [facility] Comment on above: Performed By: #### C UBLD, LACTIC, CK, HS TROP, BNP, CBC, PT, BMP ####[address] [place] [address] [facility] Creatinine Clr Calc Pharmacy 48.78 Normal [facility] Comment on above: Result Comment: PERF ORMED BY:[address] HERNÁNDEZNORTH [place], [place] [phone] MEDICAL DIRECTORDOROTHY MEAN M.D. Performed By: #### C UBLD, LACTIC, CK, HS TROP, BNP, CBC, PT, BMP ####[address] [address] [facility] Estimated GFR 51.248 mL/Min Normal The [facility] Comment on above: Performed By: #### C UBLD, LACTIC, CK, HS TROP, BNP, CBC, PT, BMP ####[id number] [facility] Glucose [Mass/Vol] 191 mg/dL High 70-100 [facility] Comment on above: Result Comment: [facility] Glucose Reference Range is dependent on time and content of last meal. Glucose of more than 200 mg/dL in a nonstressed, ambulatory subject supports the diagnosis of Diabetes Mellitus. ADA recommended reference range Performed By: #### C UBLD, LACTIC, CK, HS TROP, BNP, CBC, PT, BMP ####[address] [address] [facility] Potassium [Moles/Vol] 3.8 mmol/L Normal 3.5-5.1 [facility] Comment on above: Performed By: #### C UBLD, LACTIC, CK, HS TROP, BNP, CBC, PT, BMP ####[address] [address] [facility] Sodium [Moles/Vol] 141 mmol/L Normal 136-145 [facility] Comment on above: Performed By: #### C UBLD, LACTIC, CK, HS TROP, BNP, CBC, PT, BMP ####[id number] [facility] Urea nitrogen [Mass/Vol] 15 mg/dL Normal 7-25 [facility] Comment on above: Performed By: #### C UBLD, LACTIC, CK, HS TROP, BNP, CBC, PT, BMP ####[address] Bilirubin Test strip Ql (U)O rdered By: Anderson Gould on 02-29-2024 Bilirubin Ql (U) Bilirubin.total [Presence] in Urine by Test strip Negative [facility] Blood Cultureon 02-29-2024 Bacteria identified Cx Nom (Bld) NO GROWTH 5 DAYS PERFORMED BY: [place] [address] PATHOLOGIST [employer] DOROTHY MENA M.D. Normal [facility] Comment on above: Performed By: #### C UBLD, LACTIC, CK, HS TROP, BNP, CBC, PT, BMP ####[address] Bacteria identified Cx Nom (Bld) NO GROWTH 5 DAYS PERFORMED BY: [place] [address] PATHOLOGIST ADVERTISING LAY[employer] WORKER DOROTHY MENA M.D. Normal [facility] Comment on above: Performed By: #### C UBLD, LACTIC, CK, HS TROP, BNP, CBC, PT, BMP ####[id number] [facility] COVID Cepheid NegativeOrdere d By: Anderson Gould on 02-29-2024 SARS-CoV-2 (COVID-19) Ab IA Ql COVID Cepheid Negative [facility] Comment on above: This is a duplicate Cepheid Xpert Xpress CoV-2/Flu/RSV Plus RNA by RT-PCR result to be used for statistical tracking purpose only. SARS-CoV-2 (COVID-19) RNA MITCHELL+probe Ql (Unsp spec) COVID Cepheid Negative [facility] COVID-19 / Flu A/B / RSV PCR on 02-29-2024 SARS-CoV-2 (COVID-19) RNA MITCHELL+probe Ql (Unsp spec) Normal [facility] Comment on above: Performed By: #### C OVID19 FLU RSV, CEPHEID NEG ####[id number] [facility] Cepheid COVID PCR Negativeon 02-29-2024 SARS-CoV-2 (COVID-19) RNA MITCHELL+probe Ql (Unsp spec) Negative Normal Negative [facility] Comment on above: Result Comment: This is a duplicate Cepheid Xpert Xpress CoV-2/Flu/RSV Plus RNA by RT-PCR result to be used for statistical tracking purpose only.PERFORMED BY:[address] [place], [place] [phone] MEDICAL DIRECTORDOROTHY MENA M.D. Performed By: #### C OVID19 FLU RSV, CEPHEID NEG ####[address] Color Auto (U)Ordered By: Daniel Gould on 02-29-2024 Color (U) Color of Urine by Auto Yellow [facility] Complete Blood Count Auto Di ffon 02-29-2024 Basophils (Bld) [#/Vol] 0.1 10*3/uL Normal 0.0-0.2 [facility] Comment on above: Result Comment: PERF ORMED BY:[address] [place], [place] [phone] MEDICAL DIRECTORDOROTHY MENA M.D. Performed By: #### C UBLD, LACTIC, CK, HS TROP, BNP, CBC, PT, BMP ####[place] [id number] [facility] Basophils/100 WBC (Bld) 0.3 % Normal . [facility] Comment on above: Performed By: #### C UBLD, LACTIC, CK, HS TROP, BNP, CBC, PT, BMP ####[address] Eosinophils (Bld) [#/Vol] 0.1 10*3/uL Normal 0.0-0.45 [facility] Comment on above: Performed By: #### C UBLD, LACTIC, CK, HS TROP, BNP, CBC, PT, BMP ####[address] Eosinophils/100 WBC (Bld) 0.4 % Normal . [facility] Comment on above: Performed By: #### C UBLD, LACTIC, CK, HS TROP, BNP, CBC, PT, BMP ####[address] Erythrocyte distribution width (RBC) [Ratio] 14.7 % Normal 11.9-15.3 [facility] Comment on above: Performed By: #### C UBLD, LACTIC, CK, HS TROP, BNP, CBC, PT, BMP ####[address] Hematocrit (Bld) [Volume fraction] 38.7 % Normal 34.0-46.4 [facility] Comment on above: Performed By: #### C UBLD, LACTIC, CK, HS TROP, BNP, CBC, PT, BMP ####[address] Hemoglobin (Bld) [Mass/Vol] 12.7 g/dL Normal 11.8-15.4 [facility] Comment on above: Performed By: #### C UBLD, LACTIC, CK, HS TROP, BNP, CBC, PT, BMP ####[address] Lymphocytes (Bld) [#/Vol] 1.0 10*3/uL Normal 1.00-4.8 [facility] Comment on above: Performed By: #### C UBLD, LACTIC, CK, HS TROP, BNP, CBC, PT, BMP ####[address] Lymphocytes/100 WBC (Bld) 5.4 % Normal . [facility] Comment on above: Performed By: #### C UBLD, LACTIC, CK, HS TROP, BNP, CBC, PT, BMP ####[address] MCH (RBC) [Entitic mass] 27.9 pg Normal 24.7-34.3 [facility] Comment on above: Performed By: #### C UBLD, LACTIC, CK, HS TROP, BNP, CBC, PT, BMP ####[address] MCV (RBC) [Entitic vol] 85.0 fL Normal 80-100 [facility] Comment on above: Performed By: #### C UBLD, LACTIC, CK, HS TROP, BNP, CBC, PT, BMP ####[address] Mean Corpuscular HGB Conc 32.8 g/dL Normal 32.0-35.0 [facility] Comment on above: Performed By: #### C UBLD, LACTIC, CK, HS TROP, BNP, CBC, PT, BMP ####[address] Monocytes (Bld) [#/Vol] 0.6 10*3/uL Normal 0.0-0.8 [facility] Comment on above: Performed By: #### C UBLD, LACTIC, CK, HS TROP, BNP, CBC, PT, BMP ####[address] Monocytes/100 WBC (Bld) 19.81 % Normal 0.00-20.00 [facility] Comment on above: Performed By: #### C UBLD, LACTIC, CK, HS TROP, BNP, CBC, PT, BMP ####[address] Monocytes/100 WBC (Bld) 3.5 % Normal . [facility] Comment on above: Performed By: #### C UBLD, LACTIC, CK, HS TROP, BNP, CBC, PT, BMP ####[address] Neutrophils (Bld) [#/Vol] 15.8 10*3/uL High 1.8-7.7 [facility] Comment on above: Performed By: #### C UBLD, LACTIC, CK, HS TROP, BNP, CBC, PT, BMP ####[address] Neutrophils/100 WBC (Bld) 90.4 % Normal . [facility] Comment on above: Performed By: #### C UBLD, LACTIC, CK, HS TROP, BNP, CBC, PT, BMP ####[address] NRBC% 0.0 /100{WBC} Normal 0-0.5 [facility] Comment on above: Performed By: #### C UBLD, LACTIC, CK, HS TROP, BNP, CBC, PT, BMP ####[address] Platelet mean volume (Bld) [Entitic vol] 7.7 fL Normal 6.3-10.7 [facility] Comment on above: Performed By: #### C UBLD, LACTIC, CK, HS TROP, BNP, CBC, PT, BMP ####[address] Platelets (Bld) [#/Vol] 247 10*3/uL Normal 150-450 [facility] Comment on above: Performed By: #### C UBLD, LACTIC, CK, HS TROP, BNP, CBC, PT, BMP ####[address] RBC (Bld) [#/Vol] 4.56 10*6/uL Normal 3.60-5.00 [facility] Comment on above: Performed By: #### C UBLD, LACTIC, CK, HS TROP, BNP, CBC, PT, BMP ####[address] WBC (Bld) [#/Vol] 17.5 10*3/uL High 3.8-11.6 [facility] Comment on above: Performed By: #### C UBLD, LACTIC, CK, HS TROP, BNP, CBC, PT, BMP ####[place] [address] [facility] Creatine Kinaseon 02-29-2024 CK [Catalytic activity/Vol] 266 U/L High 30-223 [facility] Comment on above: Performed By: #### C UBLD, LACTIC, CK, HS TROP, BNP, CBC, PT, BMP ####[id number] [place] [address] [facility] [facility] Creatine kinase [Enzymatic a ctivity/volume] in Serum or PlasmaOrdered By: Anderson Gould on 02-29-2024 CK [Catalytic activity/Vol] Creatine kinase [Enzymatic activity/volume] in Serum or Plasma High 30-223 [facility] Dipstick and Microscopicon 1 05-01-2023 Appearance (U) Cloudy Critically abnormal Clear [facility] Comment on above: Order Comment: Name Collection Type:: Straight Catheter Performed By: #### A DDONUAPLUS, CUU ####[id number] [place] [address] [facility] Bacteria,Urine 2+ High None Seen The [facility] Comment on above: Order Comment: Name Collection Type:: Straight Catheter Performed By: #### A DDONUAPLUS, CUU ####[id number] [place] [address] [place] Bilirubin,Urine Negative Normal Negative The [facility] Comment on above: Order Comment: Name Collection Type:: Straight Catheter Performed By: #### A DDONUAPLUS, CUU ####[address] [address] [facility] Color (U) Light-Yellow Normal Yellow The [facility] Comment on above: Order Comment: Name Collection Type:: Straight Catheter Performed By: #### A DDONUAPLUS, CUU ####[address] [place] [address] [place] Glucose Ql (U) Normal Normal Normal [facility] Comment on above: Order Comment: Name Collection Type:: Straight Catheter Performed By: #### A DDONUAPLUS, CUU ####[address] [place] [address] [place] Hyaline Casts,Urine None Normal 0-8 [facility] Comment on above: Order Comment: Name Collection Type:: Straight Catheter Performed By: #### A DDONUAPLUS, CUU ####[address] [address] [facility] Ketones Ql (U) Negative Normal Negative [facility] Comment on above: Order Comment: Name Collection Type:: Straight Catheter Performed By: #### A DDONUAPLUS, CUU ####[address] [address] [facility] Leukocyte esterase Test strip Ql (U) 4+ High Negative [facility] Comment on above: Order Comment: Name Collection Type:: Straight Catheter Performed By: #### A DDONUAPLUS, CUU ####[address] [address] [facility] Mucus,Urine Rare Normal [facility] Comment on above: Order Comment: Name Collection Type:: Straight Catheter Result Comment: PERF ORMED BY:[address] [address] [place] [place] [id number] MEDICAL DIRECTORDOROTHY MENA M.D. Performed By: #### A DDONUAPLUS, CUU ####[address] [address] [facility] Nitrite,Urine Positive High Negative The [facility] Comment on above: Order Comment: Name Collection Type:: Straight Catheter Performed By: #### A DDONUAPLUS, CUU ####[address] [address] [facility] Occult Blood,Urine 1+ High Negative [facility] Comment on above: Order Comment: Name Collection Type:: Straight Catheter Result Comment: PERF ORMED BY:[address] [address] [place] [id number] MEDICAL DIRECTORDOROTHY MENA M.D. Performed By: #### A DDONUAPLUS, CUU ####[address] [address] [facility] pH (U) 6.5 [pH] Normal 5.0-9.0 [facility] Comment on above: Order Comment: Name Collection Type:: Straight Catheter Performed By: #### A DDONUAPLUS, CUU ####[address] [address] [facility] Protein (U) [Mass/Vol] 70 mg/dL High Negative Th e [facility] Comment on above: Order Comment: Name Collection Type:: Straight Catheter Performed By: #### A DDONUAPLUS, CUU ####[address] [address] [facility] RBC,Urine 10 [HPF] High 0-4 [facility] Comment on above: Order Comment: Name Collection Type:: Straight Catheter Performed By: #### A DDONUAPLUS, CUU ####[address] [address] [facility] Specificy Morton,Urine 1.009 Normal 1.001-1.03 0 [facility] Comment on above: Order Comment: Name Collection Type:: Straight Catheter Performed By: #### A DDONUAPLUS, CUU ####[address] [address] [facility] Squamous Epithelial Cell,Urine 1 [HPF] Normal 0-2 [facility] Comment on above: Order Comment: Name Collection Type:: Straight Catheter Performed By: #### A DDONUAPLUS, CUU ####[address] [address] [facility] Urobilinogen,Urine Normal Normal Normal The [facility] Comment on above: Order Comment: Name Collection Type:: Straight Catheter Performed By: #### A DDONUAPLUS, CUU ####[address] [address] [facility] WBC CLUMP, Urine Many High None Seen The [facility] Comment on above: Order Comment: Name Collection Type:: Straight Catheter Performed By: #### A DDONUAPLUS, CUU ####[address] [address] [facility] WBC,Urine Innumerable High 0-4 [facility] Comment on above: Order Comment: Name Collection Type:: Straight Catheter Performed By: #### A DDONUAPLUS, CUU ####[facility] [id number] [facility] ECG 12 lead ECGon 02-29-2024 [...] in Urine sediment by Automated count 0-2 [facility] Erythrocytes [#/area] in Uri ne sediment by Automated countOrdered By: Anderson Gould on 02-29-2024 RBC Auto (Urine sed) [#/Area] Erythrocytes [#/area] in Urine sediment by Automated count High 0-4 [facility] Glucose [Mass/volume] in Uri ne by Test stripOrdered By: Anderson Gould on 02-29-2024 Glucose Test strip (U) [Mass/Vol] Glucose [Mass/volume] in Urine by Test strip Normal [facility] Hemoglobin Test strip Ql (U) Ordered By: Anderson Gould on 02-29-2024 Hemoglobin Ql (U) Hemoglobin [Presence ] in Urine by Test strip High Negative [facility] Hyaline casts [#/area] in Ur ine sediment by Automated countOrdered By: Anderson Gould on 02-29-2024 Hyaline casts Auto (Urine sed) [#/Area] Hyaline casts [#/area] in Urine sediment by Automated count 0-8 [facility] INR in Platelet poor plasma by Coagulation assayOrdered By: Anderson Gould on 02-29-2024 INR Coag (PPP) [Relative time] INR in Platelet poor plasma by Coagulation assay [facility] Comment on above: INR Therapeutic Rang e [...] i n Urine by Test strip Negative [facility] Laboratory - Microbiology an d Antimicrobial susceptibilityOrdered By: Anderson Gould on 02-29-2024 Bacteria identified Cx Nom (Bld) NO GROWTH 5 DAYS [facility] Bacteria identified Cx Nom (Bld) NO GROWTH 5 DAYS [facility] Lactate [Moles/volume] in Se rum or PlasmaOrdered By: Anderson Gould on 02-29-2024 Lactate [Moles/Vol] Lactate [Moles/volum e] in Serum or Plasma Critically high 0.5-2.2 [facility] Comment on above: Critical Result : Ca lled to and read back by: APOLLO STUBBS at: 02/29/2024 22:53:47 by: Lactic Acidon 02-29-2024 Lactate [Moles/Vol] 2.2 mmol/L Off scale high 0.5-2.2 [facility] Comment on above: Result Comment: Crit ical Result : Called to and read back by: DIXON FELICIANO at: 02/29/2024 18:29:55 by:[id number] BY:[address] [address] [place], [place] [id number] MEDICAL DIRECTORDOROTHY MENA M.D. Performed By: #### C UBLD, LACTIC, CK, HS TROP, BNP, CBC, PT, BMP ####[address] [address] [facility] Lactic Acid Reflexon Lactic Acid Reflex 2.4 mmol/L Off scale high 0.5-2.2 [facility] Comment on above: Result Comment: Crit ical Result : Called to and read back by: APOLLO STUBBS at: 02/29/2024 22:53:47 by:DHPERFORMED BY:[address] [address] [place], [place] [id number] MEDICAL DIRECTORMOHAMED M EL-FAKHARANY M.D. Performed By: #### L ACTIC RFX ####[facility] [id number] [facility] Leukocyte clumps [Presence] in Urine by AutomatedOrdered By: Anderson Gould on 02-29-2024 Leukocyte clumps Auto Ql (U) Leukocyte clumps [Presence] in Urine by Automated High None Seen [facility] Leukocyte esterase [Presence ] in Urine by Test stripOrdered By: Anderson Gould on 02-29-2024 Leukocyte esterase Test strip Ql (U) Leukocyte esterase [Presence] in Urine by Test strip High Negative [facility] Leukocytes [#/area] in Urine sediment by Automated countOrdered By: Anderson Gould on 02-29-2024 WBC Auto (Urine sed) [#/Area] Leukocytes [#/area] in Urine sediment by Automated count High 0-4 [facility] Monocyte distribution width [Entitic volume] in Blood by AutomatedOrdered By: Anderson Gould on 02-29-2024 Monocyte distribution width Auto (Bld) [Entitic vol] Monocyte distribution width [Entitic volume] in Blood by Automated 0.00-20.00 [facility] Mucus [Presence] in Urine by AutomatedOrdered By: Anderson Gould on 02-29-2024 Mucus Auto Ql (U) Mucus [Presence] in Urine by Automated [facility] Natriuretic peptide B [Mass/ Vol]Ordered By: Anderson Gould on 02-29-2024 Natriuretic peptide B (Bld) [Mass/Vol] BNP ser/plas 5-100 [facility] Nitrite Test strip Ql (U)Ord ered By: Anderson Gould on 02-29-2024 Nitrite Ql (U) Nitrite [Presence] i n Urine by Test strip High Negative [facility] No Panel InformationOrdered By: Anderson Gould on 02-29-2024 NO GROWTH 5 DAYS [facility] Arterial Blood Base Excess 5.5 mmol/L High -3.0-3.0 [facility] Arterial Blood Oxygen Content 8.7 mmol/L 6.6-9.7 [facility] Arterial Blood Oxygen Saturation 99.1 % 95.0-100.0 [facility] Arterial Blood Partial Pressure CO2 51.0 mm[Hg] Critically high 35.0-45.0 [facility] Arterial Blood Partial Pressure O2 162.2 mm[Hg] Critically high 80.0-100.0 [facility] Arterial Blood pH 7.41 7.35-7.45 [facility] Blood Gas Critical Value See comment [facility] Comment on above: Critical Value lopez d on: 02/29/2024 at 17:56 Blood Gas Sample Site Right brachial [facility] FiO2 100 % [facility] 7.41 7.35-7.45 [facility] 51.0 mm[Hg] Critically high 35.0-45.0 [facility] 162.2 mm[Hg] Critically high 80.0-100.0 [facility] 31.4 mmol/L High 23.0-29.0 [facility] 5.5 mmol/L High -3.0-3.0 [facility] 99.1 % 95.0-100.0 [facility] 8.7 mmol/L 6.6-9.7 [facility] 32.9 mmol/L High 23.0-27.0 [facility] 100 % [facility] Right brachial [facility] See comment [facility] NO GROWTH 5 DAYS [facility] Protein Test strip (U) [Mass /Vol]Ordered By: Anderson Gould on 02-29-2024 Protein (U) [Mass/Vol] Protein [Mass/vol ume] in Urine by Test strip High Negative [facility] Prothrombin Time INRon 02-28 INR Coag (PPP) [Relative time] 1.1 {INR} Normal [facility] Comment on above: Result Comment: [...] with mechanical heart valves: 3 - 4.5PERFORMED BY:[address] [place] [place], [place] [phone] MEDICAL DIRECTORDOROTHY MENA M.D. Performed By: #### C UBLD, LACTIC, CK, HS TROP, BNP, CBC, PT, BMP ####[facility] [place] [address] [facility] PT Coag (PPP) [Time] 12.2 s Normal 9.0-12.9 [facility] Comment on above: Result Comment: A he matocrit value greater than 55% may lead to inaccurate results in coagulation testing. Patients having hematocrit values >55% require a special collection tube for coagulation studies. Please contact the laboratory at [phone] for redraw instructions. Performed By: #### C UBLD, LACTIC, CK, HS TROP, BNP, CBC, PT, BMP ####[facility] [place] [address] [facility] Prothrombin time (PT)Ordered By: Anderson Gould on 02-29-2024 PT Coag (PPP) [Time] Prothrombin time (PT) 9.0- 12.9 [facility] Comment on above: A hematocrit value g reater than 55% may lead to inaccurate results in coagulation testing. Patients having hematocrit values >55% require a special collection tube for coagulation studies. Please contact the laboratory at [phone] for redraw instructions. Respiratory specimen influen za A virus, influenza B virus, respiratory syncytical virOrdered By: Anderson Gould on 02-29-2024 SARS-CoV-2 (COVID-19) RNA MITCHELL+probe Ql (Unsp spec) Respiratory specimen influenza A virus, influenza B virus, respiratory syncytical vir [facility] Specific gravity Test strip (U) [Rel density]Ordered By: Anderosn Gould on 02-29-2024 Specific gravity (U) [Rel density] Specific gravity of Urine by Test strip 1.001-1.03 0 [facility] Troponin I High Sensitivityo n 02-29-2024 Troponin I High Sensitivity 122.9 pg/mL Off scale high 0.0-15.0 [facility] Comment on above: Result Comment: Crit ical Result : Called to and read back by: PAMELA CHOUDHURY at: 02/29/2024 19:36:14 by:[id number] BY:[facility] [place], [place] [id number] MEDICAL DIRECTORDOROTHY MENA M.D. Performed By: #### C UBLD, LACTIC, CK, HS TROP, BNP, CBC, PT, BMP ####[facility] [id number] [place] [address] [facility] Urine Cultureon 02-29-2024 Bacteria identified Cx Nom (U) Normal [facility] Comment on above: Performed By: #### A DDONUAPLUS, CUU ####[facility] [id number] [place] [address] [facility] Urine cultureOrdered By: Corina Gould on 02-29-2024 Bacteria identified Cx Nom (U) Escherichia coli Abnormal [facility] Escherichia coli Escherichia coli Abnormal [facility] Urobilinogen Test strip (U) [Mass/Vol]Ordered By: Anderson Gould on 02-29-2024 Urobilinogen (U) [Mass/Vol] Urobilinogen [Mass/volume] in Urine by Test strip Normal [facility] XR chest 1V portableon 02-28 XR chest 1V portable Normal [facility] pH Test strip (U)Ordered By: Anderson Gould on 02-29-2024 pH (U) pH of Urine by Test strip 5.0-9.0 [facility] Arterial Blood Gason 024 ABG Base Excess 7.2 mmol/L High -3.0-3.0 [facility] Comment on above: Performed By: #### A BG ####Point of Care testing, ABG Frac Inspired O2 40 % Normal [facility] Comment on above: Performed By: #### A BG ####Point of Care testing, ABG Liter Flow 5 Normal [facility] Comment on above: Performed By: #### A BG ####Point of Care testing, ABG Oxygen Content 6.9 mmol/L Normal 6.6-9.7 [facility] Comment on above: Performed By: #### A BG ####Point of Care testing, ABG Oxygen Saturation 89.9 % Low 95.0-100.0 [facility] Comment on above: Performed By: #### A BG ####Point of Care testing, ABG PCO2 55.2 mm[Hg] Off scale high 35.0-45.0 [facility] Comment on above: Performed By: #### A BG ####Point of Care testing, ABG PH 7.40 Normal 7.35-7.45 [facility] Comment on above: Performed By: #### A BG ####Point of Care testing, ABG PO2 55.5 mm[Hg] Low 80.0-100.0 [facility] Comment on above: Performed By: #### A BG ####Point of Care testing, Oxygen Device Nasal Cannula Normal [facility] Comment on above: Performed By: #### A BG ####Point of Care testing, Respiratory Critical Normal [facility] Comment on above: Result Comment: Crit ical Value called on: 01/30/2024 at 13:53PERFORMED BY:[address] [place] [place], [place] [id number] MEDICAL DIRECTORDOROTHY MENA M.D. Performed By: #### A BG ####Point of Care testing, VBG Draw Site Right Radial Normal [facility] Comment on above: Performed By: #### A BG ####Point of Care testing, Arterial Blood GasOrdered By : Kaleigh Nation on 01-30-2024 CO2 [Moles/Vol] 35.2 mmol/L High 23.0-27.0 [facility] Comment on above: Performed By: #### A BG ####Point of Care testing, HCO3 (Bld) [Moles/Vol] 33.5 mmol/L High 23.0-29.0 [facility] Comment on above: Performed By: #### A BG ####Point of Care testing, No Panel InformationOrdered By: Kaleigh Nation on 01-30-2024 Arterial Blood Base Excess 7.2 mmol/L High -3.0-3.0 [facility] Arterial Blood Oxygen Content 6.9 mmol/L 6.6-9.7 [facility] Arterial Blood Oxygen Saturation 89.9 % Low 95.0-100.0 [facility] Arterial Blood Partial Pressure CO2 55.2 mm[Hg] Critically high 35.0-45.0 [facility] Arterial Blood Partial Pressure O2 55.5 mm[Hg] Low 80.0-100.0 [facility] Arterial Blood pH 7.40 7.35-7.45 [facility] Blood Gas Critical Value See comment [facility] Comment on above: Critical Value lopez d on: 01/30/2024 at 13:53 Blood Gas Liter Flow 5 L/min [facility] Blood Gas Sample Site Right radial [facility] FiO2 40 % [facility] Oxygen Delivery Device Nasal cannula [facility] 7.40 7.35-7.45 [facility] 55.2 mm[Hg] Critically high 35.0-45.0 [facility] 55.5 mm[Hg] Low 80.0-100.0 [facility] 33.5 mmol/L High 23.0-29.0 [facility] 7.2 mmol/L High -3.0-3.0 [facility] 89.9 % Low 95.0-100.0 [facility] 6.9 mmol/L 6.6-9.7 [facility] 35.2 mmol/L High 23.0-27.0 [facility] 40 % [facility] 5 L/min [facility] Right radial [facility] Nasal cannula [facility] See comment [facility] HbA1c HPLC (Bld) [Mass fract ion]on 01-25-2024 HbA1c (Bld) [Mass fraction] Hemoglobin A1c/Hemoglobin.total in Blood by HPLC [facility] A1C with Estimated Average G melissa 01-23-2024 Glucose [Mass/Vol] 120 mg/dL Normal [facility] Comment on above: Result Comment: PERF ORMED BY:[facility] [place] [place] [phone] MEDICAL DIRECTORDOROTHY MENA M.D. Performed By: #### L IPID, CMP, URMA, T4F, CBC, TSH3, A1C WT eA ####[id number] [facility] HbA1c (Bld) [Mass fraction] 5.8 % High 4.3-5.6 [facility] Comment on above: Result Comment: Incr eased risk for diabetes: 5.7 - 6.4 diabetes: >6.4 glycemic control for adults with diabetes: <7.0 Performed By: #### L IPID, CMP, URMA, T4F, CBC, TSH3, A1C WT eA ####[facility] [id number] [id number] [facility] Alanine aminotransferase [En zymatic activity/volume] in Serum or PlasmaOrdered By: Neto Arauz on 01-23-2024 ALT [Catalytic activity/Vol] Alanine aminotransferase [Enzymatic activity/volume] in Serum or Plasma 7-52 [facility] Albumin [Mass/volume] in Ser um or Plasma by Bromocresol green (BCG) dye binding methoOrdered By: Neto Arauz on 01-23-2024 Albumin BCG dye [Mass/Vol] Albumin [Mass/volume] in Serum or Plasma by Bromocresol green (BCG) dye binding metho 3.5-5.7 [facility] Alkaline phosphatase [Enzyma tic activity/volume] in Serum or PlasmaOrdered By: Neto Arauz on 01-23-2024 ALP [Catalytic activity/Vol] Alkaline phosphatase [Enzymatic activity/volume] in Serum or Plasma High 34-104 [facility] Aspartate aminotransferase [ Enzymatic activity/volume] in Serum or PlasmaOrdered By: Neto Arauz on 01-23-2024 AST [Catalytic activity/Vol] Aspartate aminotransferase [Enzymatic activity/volume] in Serum or Plasma 13-39 [facility] Basophils Auto (Bld) [#/Vol] Ordered By: Neto Arauz on 01-23-2024 Basophils (Bld) [#/Vol] Automated basophil count 0.0-0.2 [facility] Basophils/100 WBC Auto (Bld) Ordered By: Neto Arauz on 01-23-2024 Basophils/100 WBC (Bld) Automated basophil % . [facility] Bilirubin.total [Mass/volume ] in Serum or PlasmaOrdered By: Neto Arauz on 01-23-2024 Bilirubin [Mass/Vol] Bilirubin.total [Mass/volume] in Serum or Plasma 0.3-1.0 [facility] Blood estimated average gluc ose determination by estimation from glycated hemoglobinOrdered By: Neto Arauz on 01-23-2024 Average glucose Estimated from glycated hemoglobin (Bld) [Mass/Vol] Glucose mean value [Mass/volume] in Blood Estimated from glycated hemoglobin [facility] Calcium [Mass/volume] in Ser um or PlasmaOrdered By: Neto Arauz on 01-23-2024 Calcium [Mass/Vol] Calcium [Mass/volume ] in Serum or Plasma 8.6-10.3 [facility] Carbon dioxide, total [Moles /volume] in Serum or PlasmaOrdered By: Neto Arauz on 01-23-2024 CO2 [Moles/Vol] Carbon dioxide, tota l [Moles/volume] in Serum or Plasma High 21.0-31.0 [facility] Chloride [Moles/volume] in S cait or PlasmaOrdered By: Neto Arauz on 01-23-2024 Chloride [Moles/Vol] Chloride [Moles/vol ume] in Serum or Plasma 98-107 [facility] Cholesterol [Mass/volume] in Serum or PlasmaOrdered By: Neto Arauz on 01-23-2024 Cholesterol [Mass/Vol] Cholesterol [Mass /volume] in Serum or Plasma 140-200 [facility] Comment on above: Chol less than 200 m g/dl low riskChol 201-239 mg/dl borderline riskChol 240 mg/dl and greater high risk Cholesterol in HDL [Mass/vol ume] in Serum or PlasmaOrdered By: Neto Arauz on 01-23-2024 Cholesterol in HDL [Mass/Vol] Serum or plasma high density lipoprotein (HDL) cholesterol measurement 23-92 [facility] Comment on above: HDL CHOL ATP-III CLA SSIFICATION Cardiovascular RiskHDL > or equal to 60 mg/dL LOWHDL < 40 mg/dL HIGH Cholesterol in LDL Calc [Mas s/Vol]Ordered By: Neto Arauz on 01-23-2024 Cholesterol in LDL [Mass/Vol] Cholesterol in LDL [Mass/volume] in Serum or Plasma by calculation 0-100 [facility] Comment on above: LDL ATP III CLASSIFI CATIONLDL less than 100 mg/dL OptimalLDL 100-129 mg/dL Near or above optimalLDL 130-159 mg/dL Borderline highLDL 160-189 mg/dL HighLDL greater than 189 mg/dL Very high Cholesterol in VLDL Calc [Ma ss/Vol]Ordered By: Neto Arauz on 01-23-2024 Cholesterol in VLDL [Mass/Vol] Cholesterol in VLDL [Mass/volume] in Serum or Plasma by calculation [facility] Complete Blood Count Auto Di ffon 01-23-2024 Basophils (Bld) [#/Vol] 0.1 10*3/uL Normal 0.0-0.2 [facility] Comment on above: Result Comment: PERF ORMED BY:[address] [place], [place] [id number] MEDICAL DIRECTORDOROTHY MENA M.D. Performed By: #### L IPID, CMP, URMA, T4F, CBC, TSH3, A1C [facility] eA ####[address] Basophils/100 WBC (Bld) 0.9 % Normal . [facility] Comment on above: Performed By: #### L IPID, CMP, URMA, T4F, CBC, TSH3, A1C [facility] eA ####[address] Eosinophils (Bld) [#/Vol] 0.2 10*3/uL Normal 0.0-0.45 [facility] Comment on above: Performed By: #### L IPID, CMP, URMA, T4F, CBC, TSH3, A1C [facility] eA ####[place] [address] [place] Eosinophils/100 WBC (Bld) 2.9 % Normal . [facility] Comment on above: Performed By: #### L IPID, CMP, URMA, T4F, CBC, TSH3, A1C [facility] eA ####[address] Erythrocyte distribution width (RBC) [Ratio] 14.7 % Normal 11.9-15.3 [facility] Comment on above: Performed By: #### L IPID, CMP, URMA, T4F, CBC, TSH3, A1C [facility] eA ####[address] Hematocrit (Bld) [Volume fraction] 37.0 % Normal 34.0-46.4 [facility] Comment on above: Performed By: #### L IPID, CMP, URMA, T4F, CBC, TSH3, A1C [facility] eA ####[address] Hemoglobin (Bld) [Mass/Vol] 12.1 g/dL Normal 11.8-15.4 [facility] Comment on above: Performed By: #### L IPID, CMP, URMA, T4F, CBC, TSH3, A1C [facility] eA ####[address] Lymphocytes (Bld) [#/Vol] 1.6 10*3/uL Normal 1.00-4.8 [facility] Comment on above: Performed By: #### L IPID, CMP, URMA, T4F, CBC, TSH3, A1C WTH eA ####[address] Lymphocytes/100 WBC (Bld) 19.4 % Normal . [facility] Comment on above: Performed By: #### L IPID, CMP, URMA, T4F, CBC, TSH3, A1C WT eA ####[address] MCH (RBC) [Entitic mass] 28.1 pg Normal 24.7-34.3 [facility] Comment on above: Performed By: #### L IPID, CMP, URMA, T4F, CBC, TSH3, A1C WTH eA ####[address] MCV (RBC) [Entitic vol] 86.0 fL Normal 80-100 [facility] Comment on above: Performed By: #### L IPID, CMP, URMA, T4F, CBC, TSH3, A1C [facility] eA ####[address] Mean Corpuscular HGB Conc 32.7 g/dL Normal 32.0-35.0 [facility] Comment on above: Performed By: #### L IPID, CMP, URMA, T4F, CBC, TSH3, A1C [facility] eA ####[address] Monocytes (Bld) [#/Vol] 0.6 10*3/uL Normal 0.0-0.8 [facility] Comment on above: Performed By: #### L IPID, CMP, URMA, T4F, CBC, TSH3, A1C [facility] eA ####[address] Monocytes/100 WBC (Bld) 7.7 % Normal . [facility] Comment on above: Performed By: #### L IPID, CMP, URMA, T4F, CBC, TSH3, [address] eA ####[address] Neutrophils (Bld) [#/Vol] 5.7 10*3/uL Normal 1.8-7.7 [facility] Comment on above: Performed By: #### L IPID, CMP, URMA, T4F, CBC, TSH3, A1C [facility] eA ####[address] Neutrophils/100 WBC (Bld) 69.1 % Normal . [facility] Comment on above: Performed By: #### L IPID, CMP, URMA, T4F, CBC, TSH3, A1C [facility] eA ####[address] NRBC% 0.1 /100{WBC} Normal 0-0.5 [facility] Comment on above: Performed By: #### L IPID, CMP, URMA, T4F, CBC, TSH3, A1C [facility] eA ####[address] [address] [facility] Platelet mean volume (Bld) [Entitic vol] 8.1 fL Normal 6.3-10.7 [facility] Comment on above: Performed By: #### L IPID, CMP, URMA, T4F, CBC, TSH3, A1C [facility] eA ####[address] [address] [facility] Platelets (Bld) [#/Vol] 252 10*3/uL Normal 150-450 [facility] Comment on above: Performed By: #### L IPID, CMP, URMA, T4F, CBC, TSH3, A1C WTH eA ####[address] [address] [facility] RBC (Bld) [#/Vol] 4.30 10*6/uL Normal 3.60-5.00 [facility] Comment on above: Performed By: #### L IPID, CMP, URMA, T4F, CBC, TSH3, A1C WTH eA ####[address] [address] [facility] WBC (Bld) [#/Vol] 8.3 10*3/uL Normal 3.8-11.6 [facility] Comment on above: Performed By: #### L IPID, CMP, URMA, T4F, CBC, TSH3, A1C WTH eA ####[address] [address] [facility] Comprehensive Metabolic Pane lelia 01-23-2024 Albumin [Mass/Vol] 4.0 g/dL Normal 3.5-5.7 [facility] Comment on above: Performed By: #### L IPID, CMP, URMA, T4F, CBC, TSH3, A1C WTH eA ####[address] [place] [address] Albumin/Globulin [Mass ratio] 1.7 {ratio} Normal [facility] Comment on above: Performed By: #### L IPID, CMP, URMA, T4F, CBC, TSH3, A1C [facility] eA ####[place] [id number] [facility] ALP [Catalytic activity/Vol] 157 U/L High 34-104 [facility] Comment on above: Performed By: #### L IPID, CMP, URMA, T4F, CBC, TSH3, A1C WT eA ####[place] [id number] [facility] ALT [Catalytic activity/Vol] 19 U/L Normal 7-52 [facility] Comment on above: Performed By: #### L IPID, CMP, URMA, T4F, CBC, TSH3, A1C WT eA ####[address] Anion gap [Moles/Vol] 12.5 mmol/L Normal 6.0-15.0 [facility] Comment on above: Performed By: #### L IPID, CMP, URMA, T4F, CBC, TSH3, A1C [facility] eA ####[address] AST [Catalytic activity/Vol] 19 U/L Normal 13-39 [facility] Comment on above: Performed By: #### L IPID, CMP, URMA, T4F, CBC, TSH3, A1C [facility] eA ####[address] Bilirubin [Mass/Vol] 0.5 mg/dL Normal 0.3-1.0 [facility] Comment on above: Performed By: #### L IPID, CMP, URMA, T4F, CBC, TSH3, A1C [facility] eA ####[place] [id number] [facility] Calcium [Mass/Vol] 9.3 mg/dL Normal 8.6-10.3 [facility] Comment on above: Performed By: #### L IPID, CMP, URMA, T4F, CBC, TSH3, A1C WTH eA ####[address] Chloride [Moles/Vol] 98 mmol/L Normal 98-107 [facility] Comment on above: Performed By: #### L IPID, CMP, URMA, T4F, CBC, TSH3, A1C WTH eA ####[address] CO2 [Moles/Vol] 35.5 mmol/L High 21.0-31.0 [facility] Comment on above: Performed By: #### L IPID, CMP, URMA, T4F, CBC, TSH3, A1C WTH eA ####[address] Creatinine [Mass/Vol] 1.06 mg/dL Normal 0.60-1.20 [facility] Comment on above: Performed By: #### L IPID, CMP, URMA, T4F, CBC, TSH3, A1C WTH eA ####[address] Estimated GFR 56.514 mL/Min Normal [facility] Comment on above: Performed By: #### L IPID, CMP, URMA, T4F, CBC, TSH3, A1C WTH eA ####[place] [id number] [facility] Globulin (S) [Mass/Vol] 2.4 g/dL Normal [facility] Comment on above: Performed By: #### L IPID, CMP, URMA, T4F, CBC, TSH3, A1C WTH eA ####[place] [id number] [facility] Glucose [Mass/Vol] 118 mg/dL High 70-100 [facility] Comment on above: Result Comment: [place] Glucose Reference Range is dependent on time and content of last meal. Glucose of more than 200 mg/dL in a nonstressed, ambulatory subject supports the diagnosis of Diabetes Mellitus. ADA recommended reference range Performed By: #### L IPID, CMP, URMA, T4F, CBC, TSH3, A1C WT eA ####[place] [id number] [place] [id number] [facility] Potassium [Moles/Vol] 4.0 mmol/L Normal 3.5-5.1 [facility] Comment on above: Performed By: #### L IPID, CMP, URMA, T4F, CBC, TSH3, A1C WTH eA ####[place] [id number] [facility] Protein [Mass/Vol] 6.4 g/dL Normal 6.4-8.9 [facility] Comment on above: Performed By: #### L IPID, CMP, URMA, T4F, CBC, TSH3, A1C WT eA ####[place] [id number] [facility] Sodium [Moles/Vol] 142 mmol/L Normal 136-145 [facility] Comment on above: Performed By: #### L IPID, CMP, URMA, T4F, CBC, TSH3, A1C WT eA ####[place] [id number] [facility] Urea nitrogen [Mass/Vol] 16 mg/dL Normal 7-25 [facility] Comment on above: Performed By: #### L IPID, CMP, URMA, T4F, CBC, TSH3, A1C WT eA ####[place] [id number] [facility] Creatinine [Mass/volume] in Serum or PlasmaOrdered By: Neto Arauz on 01-23-2024 Creatinine [Mass/Vol] Creatinine [Mass/v olume] in Serum or Plasma 0.60-1.20 [facility] Eosinophils Auto (Bld) [#/Vo l]Ordered By: Neto Arauz on 01-23-2024 Eosinophils (Bld) [#/Vol] Automated eosinophil count 0.0-0.45 [facility] Eosinophils/100 WBC Auto (Bl d)Ordered By: Neto Arauz on 01-23-2024 Eosinophils/100 WBC (Bld) Automated eosinophil % . [facility] Erythrocyte distribution wid th Auto (RBC) [Ratio]Ordered By: Neto Arauz on 01-23-2024 Erythrocyte distribution width (RBC) [Ratio] Erythrocyte distribution width [Ratio] by Automated count 11.9-15.3 [facility] Free T4 (Free Thyroxine)on 03-24-2023 Free T4 [Mass/Vol] 0.67 ng/dL Normal 0.61-1.12 [facility] Comment on above: Performed By: #### L IPID, CMP, URMA, T4F, CBC, TSH3, [facility] ####[facility] [id number] [place] [address] [facility] Globulin Calc (S) [Mass/Vol] Ordered By: Neto Arauz on 01-23-2024 Globulin (S) [Mass/Vol] Serum globulin measurement by calculation (mass/volume) [facility] Glucose [Mass/volume] in Ser um or PlasmaOrdered By: Neto Arauz on 01-23-2024 Glucose [Mass/Vol] Glucose [Mass/volume ] in Serum or Plasma High 70-100 [facility] Comment on above: ADA recommended refe rence rangeRandom Glucose Reference Range is dependent on time and content of last meal. Glucose of more than 200 mg/dL in a nonstressed, ambulatory subject supports the diagnosis of Diabetes Mellitus. Hematocrit Auto (Bld) [Volum e fraction]Ordered By: Neto Arauz on 01-23-2024 Hematocrit (Bld) [Volume fraction] Hematocrit [Volume Fraction] of Blood by Automated count 34.0-46.4 [facility] Hemoglobin A1c/Hemoglobin.to claudia in BloodOrdered By: Neto Arauz on 01-23-2024 HbA1c (Bld) [Mass fraction] Hemoglobin A1c percentage High 4.3-5.6 [facility] Comment on above: Increased risk for d iabetes: 5.7 - 6.4diabetes: >6.4glycemic control for adults with diabetes: <7.0 Hemoglobin [Mass/volume] in BloodOrdered By: Neto Arauz on 01-23-2024 Hemoglobin (Bld) [Mass/Vol] Hemoglobin [Mass/volume] in Blood 11.8-15.4 [facility] Leukocytes [#/volume] correc hugh for nucleated erythrocytes in Blood by Automated counOrdered By: Neto Arauz on 01-23-2024 WBC corrected for nucl RBC Auto (Bld) [#/Vol] Leukocytes [#/volume] corrected for nucleated erythrocytes in Blood by Automated coun 3.8-11.6 [facility] Lipid Panelon 01-23-2024 Cholesterol [Mass/Vol] 155 mg/dL Normal 140-200 Th [facility] Comment on above: Result Comment: Chol less than 200 mg/dl low risk Chol 201-239 mg/dl borderline risk Chol 240 mg/dl and greater high risk Performed By: #### L IPID, CMP, URMA, T4F, CBC, TSH3, A1C WT eA ####[facility] [place] [address] [facility] Cholesterol in HDL [Mass/Vol] 66 mg/dL Normal 23-92 [facility] Comment on above: Result Comment: HDL CHOL ATP-III CLASSIFICATION Cardiovascular Risk HDL > or equal to 60 mg/dL LOW HDL < 40 mg/dL HIGH Performed By: #### L IPID, CMP, URMA, T4F, CBC, TSH3, A1C WT eA ####[facility] [place] [address] [facility] Cholesterol.total/Chol esterol in HDL [Mass ratio] 2.3 {ratio} Normal <5.0 [facility] Comment on above: Performed By: #### L IPID, CMP, URMA, T4F, CBC, TSH3, A1C WT eA ####[facility] [place] [address] [facility] LDL Cholesterol,Calculated 67 mg/dL Normal 0-100 [facility] Comment on above: Result Comment: LDL ATP III CLASSIFICATION LDL less than 100 mg/dL Optimal LDL 100-129 mg/dL Near or above optimal LDL 130-159 mg/dL Borderline high LDL 160-189 mg/dL High LDL greater than 189 mg/dL Very high Performed By: #### L IPID, CMP, URMA, T4F, CBC, TSH3, A1C WTH eA ####[facility] [place] [address] [facility] Triglyceride w/Reflex 110 mg/dL Normal 0-149 [facility] Comment on above: Result Comment: TRIG ATP III CLASSIFICATION TRIG less than 150 mg/dL Normal TRIG 150-199 mg/dL Borderline high TRIG 200-500 mg/dL High TRIG greater than 500 mg/dL Very high Standard traceable to the Center for Disease Conrtrol and Prevention (CDC) test method. Performed By: #### L IPID, CMP, URMA, T4F, CBC, TSH3, A1C [facility] eA ####[facility] [id number] VLDL CHOLESTEROL 22 mg/dL Normal [facility] Comment on above: Performed By: #### L IPID, CMP, URMA, T4F, CBC, TSH3, A1C [facility] eA ####[facility] [id number] Lymphocytes Auto (Bld) [#/Vo l]Ordered By: Neto Arauz on 01-23-2024 Lymphocytes (Bld) [#/Vol] Lymphocytes [#/volume] in Blood by Automated count 1.00-4.8 [facility] Lymphocytes/100 WBC Auto (Bl d)Ordered By: Neto Arauz on 01-23-2024 Lymphocytes/100 WBC (Bld) Lymphocytes/100 leukocytes in Blood by Automated count . [facility] MCH Auto (RBC) [Entitic mass ]Ordered By: Neto Arauz on 01-23-2024 MCH (RBC) [Entitic mass] MCH [Entitic mass] by Automated count 24.7-34.3 [facility] MCHC Auto (RBC) [Mass/Vol]Or dered By: Neto Arauz on 01-23-2024 MCHC (RBC) [Mass/Vol] MCHC [Mass/volume] by Automated count 32.0-35.0 [facility] MCV Auto (RBC) [Entitic vol] Ordered By: Neto Arauz on 01-23-2024 MCV (RBC) [Entitic vol] MCV [Entitic volume] by Automated count 80-100 [facility] Microalbumin [Mass/volume] i n UrineOrdered By: Neto Arauz on 01-23-2024 Albumin DL <= 20 mg/L (U) [Mass/Vol] Microalbumin [Mass/volume] in Urine High 0.0-1.8 [facility] Microalbumin, Urine (Random) on 01-23-2024 Albumin DL <= 20 mg/L (U) [Mass/Vol] 10.1 mg/dL High 0.0-1.8 [facility] Comment on above: Result Comment: PERF ORMED BY:[facility] [place], [place] [id number] MEDICAL DIRECTORDOROTHY MENA M.D. Performed By: #### L IPID, CMP, URMA, T4F, CBC, TSH3, A1C WTH eA ####[facility] [place] [address] [facility] Monocytes Auto (Bld) [#/Vol] Ordered By: Neto Arauz on 01-23-2024 Monocytes (Bld) [#/Vol] Automated blood monocyte count 0.0-0.8 [facility] Monocytes/100 WBC Auto (Bld) Ordered By: Neto Arauz on 01-23-2024 Monocytes/100 WBC (Bld) Automated monocyte % . [facility] Neutrophils Auto (Bld) [#/Vo l]Ordered By: Neto Arauz on 01-23-2024 Neutrophils (Bld) [#/Vol] Neutrophils [#/volume] in Blood by Automated count 1.8-7.7 [facility] Neutrophils/100 WBC Auto (Bl d)Ordered By: Neto Arauz on 01-23-2024 Neutrophils/100 WBC (Bld) Automated neutrophil % . [facility] No Panel InformationOrdered By: Neto Arauz on 01-23-2024 Estimated GFR (CKD-EPI) 56.514 mL/Min [facility] Creatinine Clearance (Chem N/A [facility] 56.514 mL/Min [facility] N/A [facility] Nucleated erythrocytes [Pres ence] in Blood by Automated countOrdered By: Neto Arauz on 01-23-2024 Nucleated RBC Auto Ql (Bld) Nucleated erythrocytes [Presence] in Blood by Automated count 0-0.5 [facility] Platelet mean volume Auto (B ld) [Entitic vol]Ordered By: Neto Arauz on 01-23-2024 Platelet mean volume (Bld) [Entitic vol] Platelet mean volume [Entitic volume] in Blood by Automated count 6.3-10.7 [facility] Platelets Auto (Bld) [#/Vol] Ordered By: Neto Arauz on 01-23-2024 Platelets (Bld) [#/Vol] Platelets [#/volume] in Blood by Automated count 150-450 [facility] Potassium [Moles/volume] in Serum or PlasmaOrdered By: Neto Arauz on 01-23-2024 Potassium [Moles/Vol] Potassium [Moles/v olume] in Serum or Plasma 3.5-5.1 [facility] Protein [Mass/volume] in Ser um or PlasmaOrdered By: Neto Arauz on 01-23-2024 Protein [Mass/Vol] Protein [Mass/volume ] in Serum or Plasma 6.4-8.9 [facility] RBC Auto (Bld) [#/Vol]Ordere d By: Neto Arauz on 01-23-2024 RBC (Bld) [#/Vol] Erythrocytes [#/volu me] in Blood by Automated count 3.60-5.00 [facility] Serum or plasma albumin/glob ulin mass ratioOrdered By: Neto Arauz on 01-23-2024 Albumin/Globulin [Mass ratio] Serum or plasma albumin/globulin mass ratio [facility] Serum or plasma anion gap de terminationOrdered By: Neto Arauz on 01-23-2024 Anion gap [Moles/Vol] Serum or plasma an ion gap determination 6.0-15.0 [facility] Serum or plasma total choles terol/high density lipoprotein (HDL) cholesterol mass ratOrdered By: Neto Arauz on 01-23-2024 Cholesterol.total/Chol esterol in HDL [Mass ratio] Serum or plasma total cholesterol/high density lipoprotein (HDL) cholesterol mass rat <5.0 [facility] Sodium [Moles/volume] in Ser um or PlasmaOrdered By: Neto Arauz on 01-23-2024 Sodium [Moles/Vol] Sodium [Moles/volume ] in Serum or Plasma 136-145 [facility] Thyroid Stimulating Hormoneo n 01-23-2024 TSH Qn 0.47 m[IU]/L Normal 0.45-5.33 [facility] Comment on above: Result Comment: PERF ORMED BY:[facility] [place], [place] [phone] MEDICAL DIRECTORDOROTHY MENA M.D. Performed By: #### L IPID, CMP, URMA, T4F, CBC, TSH3, A1C WT eA ####[facility] [place] [address] [facility] Thyrotropin [Units/volume] i n Serum or PlasmaOrdered By: Neto Arauz on 01-23-2024 TSH Qn Thyrotropin [Units/volume] in Serum or Plasma 0.45-5.33 [facility] Thyroxine (T4) free [Mass/vo lume] in Serum or PlasmaOrdered By: Neto Arauz on 01-23-2024 Free T4 [Mass/Vol] Thyroxine (T4) free [Mass/volume] in Serum or Plasma 0.61-1.12 [facility] Triglyceride [Mass/volume] i n Serum or PlasmaOrdered By: Neto Arauz on 01-23-2024 Triglyceride [Mass/Vol] Triglyceride [Mass/volume] in Serum or Plasma 0-149 [facility] Comment on above: TRIG ATP III CLASSIF ICATIONTRIG less than 150 mg/dL NormalTRIG 150-199 mg/dL Borderline highTRIG 200-500 mg/dL High TRIG greater than 500 mg/dL Very highStandard traceable to the Center for Disease Conrtrol and Prevention (CDC) test method. Urea nitrogen [Mass/volume] in Serum or PlasmaOrdered By: Neto Arauz on 01-23-2024 Urea nitrogen [Mass/Vol] Urea nitrogen [Mass/volume] in Serum or Plasma 7-25 [facility] WBC Auto (Bld) [#/Vol]Ordere d By: Neto Arauz on 01-23-2024 WBC (Bld) [#/Vol] Leukocytes [#/volume ] in Blood by Automated count 3.8-11.6 [facility] Automated basophil %Ordered By: Niranjan Hi on 11-23-2023 Basophils/100 WBC (Bld) 0.4 % Normal . [facility] Comment on above: Performed By: #### S CAN CBC, CK, BNP ####[address] Automated basophil countOrde red By: Niranjan Hi on 11-23-2023 Basophils (Bld) [#/Vol] 0.0 10*3/uL Normal 0.0-0.2 [facility] Comment on above: Performed By: #### S CAN CBC, CK, BNP ####[address] Automated blood monocyte cou ntOrdered By: Niranjan Hi on 11-23-2023 Monocytes (Bld) [#/Vol] 0.8 10*3/uL Normal 0.0-0.8 [facility] Comment on above: Performed By: #### S CAN CBC, CK, BNP ####[address] Automated eosinophil %Ordere d By: Niranjan Hi on 11-23-2023 Eosinophils/100 WBC (Bld) 1.1 % Normal . [facility] Comment on above: Performed By: #### S CAN CBC, CK, BNP ####[address] Automated eosinophil countOr dered By: Niranjan Hi on 11-23-2023 Eosinophils (Bld) [#/Vol] 0.1 10*3/uL Normal 0.0-0.45 [facility] Comment on above: Performed By: #### S CAN CBC, CK, BNP ####[address] Automated monocyte %Ordered By: Niranjan Hi on 11-23-2023 Monocytes/100 WBC (Bld) 9.1 % Normal . [facility] Comment on above: Performed By: #### S CAN CBC, CK, BNP ####[address] Automated neutrophil %Ordere d By: Niranjan Hi on 11-23-2023 Neutrophils/100 WBC (Bld) 74.7 % Normal . [facility] Comment on above: Performed By: #### S CAN CBC, CK, BNP ####[place] [id number] [place] [address] [facility] BNP ser/plasOrdered By: Niranjan Hi on 11-23-2023 Natriuretic peptide B (Bld) [Mass/Vol] 114.0 pg/mL High 5-100 [facility] Comment on above: Result Comment: PERF ORMED BY:[address] [place], [place] [phone] MEDICAL DIRECTORARIE ROJO M.D. Performed By: #### S CAN CBC, CK, BNP ####[place] [id number] [place] [address] [facility] Basic Metabolic Panelon 11-05 Creatinine Clr Calc Pharmacy 48.10 Normal [facility] Comment on above: Result Comment: PERF ORMED BY:[address] [place], [place] [phone] MEDICAL DIRECTORARIE ROJO M.D. Performed By: #### B MP, HS TROP ####[address] [address] [facility] GFR/1.73 sq M.predicted MDRD (S/P/Bld) [Vol rate/Area] 54.056 mL/min/{1.73_m2} Normal [facility] Comment on above: Performed By: #### B MP, HS TROP ####[address] [address] [facility] Basophils Auto (Bld) [#/Vol] Ordered By: Niranjan Hi on 11-23-2023 Basophils (Bld) [#/Vol] Automated basophil count 0.0-0.2 [facility] Basophils/100 WBC Auto (Bld) Ordered By: Niranjan Hi on 11-23-2023 Basophils/100 WBC (Bld) Automated basophil % . [facility] Calcium [Mass/volume] in Ser um or PlasmaOrdered By: Niranjan Hi on 11-23-2023 Calcium [Mass/Vol] 7.5 mg/dL Low 8.6-10.3 [facility] Comment on above: Performed By: #### B MP, HS TROP ####[id number] [place] [address] [facility] Calcium [Mass/Vol] Calcium [Mass/volume ] in Serum or Plasma Low 8.6-10.3 [facility] Carbon dioxide, total [Moles /volume] in Serum or PlasmaOrdered By: Niranjan Hi on 11-23-2023 CO2 [Moles/Vol] 30.0 mmol/L Normal 21.0-31.0 [facility] Comment on above: Performed By: #### B MP, HS TROP ####[id number] [place] [address] [facility] CO2 [Moles/Vol] Carbon dioxide, tota l [Moles/volume] in Serum or Plasma 21.0-31.0 [facility] Chloride [Moles/volume] in S cait or PlasmaOrdered By: Niranjan Hi on 11-23-2023 Chloride [Moles/Vol] 102 mmol/L Normal 98-107 [facility] Comment on above: Performed By: #### B MP, HS TROP ####[id number] [place] [address] [facility] Chloride [Moles/Vol] Chloride [Moles/vol ume] in Serum or Plasma 98-107 [facility] Creatine kinase [Enzymatic a ctivity/volume] in Serum or PlasmaOrdered By: Niranjan Hi on 11-23-2023 CK [Catalytic activity/Vol] 55 U/L Normal [id number] [facility] Comment on above: Result Comment: PERF ORMED BY:[address] [place], [place] [phone] MEDICAL DIRECTORARIE ROJO M.D. Performed By: #### S CAN CBC, CK, BNP ####[place] [id number] [place] [address] [facility] CK [Catalytic activity/Vol] Creatine kinase [Enzymatic activity/volume] in Serum or Plasma 30- [facility] Creatinine [Mass/volume] in Serum or PlasmaOrdered By: Niranjan Hi on 11-23-2023 Creatinine [Mass/Vol] 1.10 mg/dL Normal 0.60-1.20 [facility] Comment on above: Performed By: #### B MP, HS TROP ####[facility] [id number] Creatinine [Mass/Vol] Creatinine [Mass/v olume] in Serum or Plasma 0.60-1.20 [facility] ECG 12 lead ECGon 11-23-2023 ECG 12 lead ECG Normal [facility] Eosinophils Auto (Bld) [#/Vo l]Ordered By: Niranjan Hi on 11-23-2023 Eosinophils (Bld) [#/Vol] Automated eosinophil count 0.0-0.45 [facility] Eosinophils/100 WBC Auto (Bl d)Ordered By: Niranjan Hi on 11-23-2023 Eosinophils/100 WBC (Bld) Automated eosinophil % . [facility] Erythrocyte distribution wid th Auto (RBC) [Ratio]Ordered By: Niranjan Hi on 11-23-2023 Erythrocyte distribution width (RBC) [Ratio] Erythrocyte distribution width [Ratio] by Automated count 11.9-15.3 [facility] Erythrocyte distribution wid th [Ratio] by Automated countOrdered By: Niranjan Hi on 11-23-2023 Erythrocyte distribution width (RBC) [Ratio] 13.8 % Normal 11.9-15.3 [facility] Comment on above: Performed By: #### S CAN CBC, CK, BNP ####[facility] [id number] [place] [id number] [facility] Erythrocyte morphology findi ng [Identifier] in BloodOrdered By: Niranjan Hi on 11-23-2023 RBC morphology finding Nom (Bld) RBC morphology Normal [facility] Erythrocytes [#/volume] in B lood by Automated countOrdered By: Niranjan Hi on 11-23-2023 RBC (Bld) [#/Vol] 4.10 10*6/uL Normal 3.60-5.00 [facility] Comment on above: Performed By: #### S CAN CBC, CK, BNP ####[facility] [id number] [place] [id number] [place] [facility] Glucose [Mass/volume] in Ser um or PlasmaOrdered By: Niranjan Hi on 11-23-2023 Glucose [Mass/Vol] 122 mg/dL High 70-100 [facility] Comment on above: ADA recommended refe rence rangeRandom Glucose Reference Range is dependent on time and content of last meal. Glucose of more than 200 mg/dL in a nonstressed, ambulatory subject supports the diagnosis of Diabetes Mellitus. Result Comment: [place] om Glucose Reference Range is dependent on time and content of last meal. Glucose of more than 200 mg/dL in a nonstressed, ambulatory subject supports the diagnosis of Diabetes Mellitus. ADA recommended reference range Performed By: #### B MP, HS TROP ####[place] [id number] Glucose [Mass/Vol] Glucose [Mass/volume ] in Serum or Plasma [facility] 70-100 [facility] Comment on above: ADA recommended refe rence rangeRandom Glucose Reference Range is dependent on time and content of last meal. Glucose of more than 200 mg/dL in a nonstressed, ambulatory subject supports the diagnosis of Diabetes Mellitus. Hematocrit Auto (Bld) [Volum e fraction]Ordered By: Niranjan Hi on 11-23-2023 Hematocrit (Bld) [Volume fraction] Hematocrit [Volume Fraction] of Blood by Automated count 34.0-46.4 [facility] Hematocrit [Volume Fraction] of Blood by Automated countOrdered By: Niranjan Hi on 11-23-2023 Hematocrit (Bld) [Volume fraction] 36.1 % Normal 34.0-46.4 [facility] Comment on above: Performed By: #### S CAN CBC, CK, BNP ####[place] [id number] [place] [id number] [facility] Hemoglobin [Mass/volume] in BloodOrdered By: Niranjan Hi on 11-23-2023 Hemoglobin (Bld) [Mass/Vol] 11.9 g/dL Normal 11.8-15.4 [facility] Comment on above: Performed By: #### S CAN CBC, CK, BNP ####[facility] [place] [id number] [facility] Hemoglobin (Bld) [Mass/Vol] Hemoglobin [Mass/volume] in Blood 11.8-15.4 [facility] Leukocytes [#/volume] correc hugh for nucleated erythrocytes in Blood by Automated counOrdered By: Niranjan Hi on 11-23-2023 WBC corrected for nucl RBC Auto (Bld) [#/Vol] 8.9 10*3/uL 3.8-11.6 [facility] WBC corrected for nucl RBC Auto (Bld) [#/Vol] Leukocytes [#/volume] corrected for nucleated erythrocytes in Blood by Automated coun 3.8-11.6 [facility] Leukocytes [#/volume] in Blo od by Automated countOrdered By: Niranjan Hi on 11-23-2023 WBC (Bld) [#/Vol] 8.9 10*3/uL Normal 3.8-11.6 [facility] Comment on above: Performed By: #### S CAN CBC, CK, BNP ####[facility] [id number] Lymphocytes Auto (Bld) [#/Vo l]Ordered By: Niranjan Hi on 11-23-2023 Lymphocytes (Bld) [#/Vol] Lymphocytes [#/volume] in Blood by Automated count 1.00-4.8 [facility] Lymphocytes [#/volume] in Bl ood by Automated countOrdered By: Niranjan Hi on 11-23-2023 Lymphocytes (Bld) [#/Vol] 1.3 10*3/uL Normal 1.00-4.8 [facility] Comment on above: Performed By: #### S CAN CBC, CK, BNP ####[facility] [id number] [address] Lymphocytes/100 WBC Auto (Bl d)Ordered By: Niranjan Hi on 11-23-2023 Lymphocytes/100 WBC (Bld) Lymphocytes/100 leukocytes in Blood by Automated count . [facility] Lymphocytes/100 leukocytes i n Blood by Automated countOrdered By: Niranjan Hi on 11-23-2023 Lymphocytes/100 WBC (Bld) 14.7 % Normal . [facility] Comment on above: Performed By: #### S CAN CBC, CK, BNP ####[facility] [id number] [address] MCH Auto (RBC) [Entitic mass ]Ordered By: Niranjan Hi on 11-23-2023 MCH (RBC) [Entitic mass] MCH [Entitic mass] by Automated count 24.7-34.3 [facility] MCH [Entitic mass] by Automa hugh countOrdered By: Niranjan Hi on 11-23-2023 MCH (RBC) [Entitic mass] 29.1 pg Normal 24.7-34.3 [facility] Comment on above: Performed By: #### S CAN CBC, CK, BNP ####[address] MCHC Auto (RBC) [Mass/Vol]Or dered By: Niranjan Hi on 11-23-2023 MCHC (RBC) [Mass/Vol] 33.1 g/dL 32.0-35.0 [facility] MCHC (RBC) [Mass/Vol] MCHC [Mass/volume] by Automated count 32.0-35.0 [facility] MCV Auto (RBC) [Entitic vol] Ordered By: Niranjan Hi on 11-23-2023 MCV (RBC) [Entitic vol] MCV [Entitic volume] by Automated count 80-100 [facility] MCV [Entitic volume] by Auto mated countOrdered By: Niranjan Hi on 11-23-2023 MCV (RBC) [Entitic vol] 88.0 fL Normal 80-100 [facility] Comment on above: Performed By: #### S CAN CBC, CK, BNP ####[address] Monocyte distribution width [Entitic volume] in Blood by AutomatedOrdered By: Niranjan Hi on 11-23-2023 Monocyte distribution width Auto (Bld) [Entitic vol] 20.05 % High 0.00-20.00 [facility] Comment on above: For adults in ED, MD W > 20.0 may be associated with a higher risk of sepsis during the first 12 hrs of hospital admissionThe predictive value of MDW for identifying sepsis in patients with hematological abnormalities has not been established Monocyte distribution width Auto (Bld) [Entitic vol] Monocyte distribution width [Entitic volume] in Blood by Automated High 0.00-20.00 [facility] Comment on above: For adults in ED, MD W > 20.0 may be associated with a higher risk of sepsis during the first 12 hrs of hospital admissionThe predictive value of MDW for identifying sepsis in patients with hematological abnormalities has not been established Monocytes Auto (Bld) [#/Vol] Ordered By: Niranjan Hi on 11-23-2023 Monocytes (Bld) [#/Vol] Automated blood monocyte count 0.0-0.8 [facility] Monocytes/100 WBC Auto (Bld) Ordered By: Niranjan Hi on 11-23-2023 Monocytes/100 WBC (Bld) Automated monocyte % . [facility] Natriuretic peptide B [Mass/ Vol]Ordered By: Niranjan Hi on 11-23-2023 Natriuretic peptide B (Bld) [Mass/Vol] BNP ser/plas High 5-100 [facility] Neutrophils Auto (Bld) [#/Vo l]Ordered By: Niranjan Hi on 11-23-2023 Neutrophils (Bld) [#/Vol] Neutrophils [#/volume] in Blood by Automated count 1.8-7.7 [facility] Neutrophils [#/volume] in Bl ood by Automated countOrdered By: Niranjan Hi on 11-23-2023 Neutrophils (Bld) [#/Vol] 6.7 10*3/uL Normal 1.8-7.7 [facility] Comment on above: Performed By: #### S CAN CBC, CK, BNP ####[facility] [id number] [place] [id number] [facility] Neutrophils/100 WBC Auto (Bl d)Ordered By: Niranjan Hi on 11-23-2023 Neutrophils/100 WBC (Bld) Automated neutrophil % . [facility] No Panel InformationOrdered By: Niranjan Hi on 11-23-2023 Estimated GFR (CKD-EPI) 54.056 mL/Min [facility] Creatinine Clearance (Chem 48.10 [facility] Nucleated erythrocytes [Pres ence] in Blood by Automated countOrdered By: Niranjan Hi on 11-23-2023 Nucleated RBC Auto Ql (Bld) 0.2 /100{WBC} 0-0.5 [facility] Nucleated RBC Auto Ql (Bld) Nucleated erythrocytes [Presence] in Blood by Automated count 0-0.5 [facility] Platelet adequacy [Presence] in Blood by Light microscopyOrdered By: Niranjan Hi on 11-23-2023 Platelets LM Ql (Bld) Normal Normal [facility] Platelets LM Ql (Bld) Platelet adequacy [Presence] in Blood by Light microscopy Normal [facility] Platelet mean volume Auto (B ld) [Entitic vol]Ordered By: Niranjan Hi on 11-23-2023 Platelet mean volume (Bld) [Entitic vol] Platelet mean volume [Entitic volume] in Blood by Automated count 6.3-10.7 [facility] Platelet mean volume [Entiti c volume] in Blood by Automated countOrdered By: Niranjan Hi on 11-23-2023 Platelet mean volume (Bld) [Entitic vol] 8.6 fL Normal 6.3-10.7 [facility] Comment on above: Performed By: #### S CAN CBC, CK, BNP ####[facility] [id number] [place] [id number] [facility] Platelet morphology finding [Identifier] in BloodOrdered By: Niranjan Hi on 11-23-2023 Platelet morphology finding Nom (Bld) Normal Normal [facility] Platelet morphology finding Nom (Bld) Platelet morphology finding [Identifier] in Blood Normal [facility] Platelets Auto (Bld) [#/Vol] Ordered By: Niranjan Hi on 11-23-2023 Platelets (Bld) [#/Vol] Platelets [#/volume] in Blood by Automated count 150-450 [facility] Platelets [#/volume] in Bloo d by Automated countOrdered By: Niranjan Hi on 11-23-2023 Platelets (Bld) [#/Vol] 230 10*3/uL Normal 150-450 [facility] Comment on above: Performed By: #### S CAN CBC, CK, BNP ####[facility] [place] [address] [facility] Potassium [Moles/volume] in Serum or PlasmaOrdered By: Niranjan Hi on 11-23-2023 Potassium [Moles/Vol] 3.8 mmol/L Normal 3.5-5.1 [facility] Comment on above: Performed By: #### B MP, HS TROP ####[facility] [place] [address] [facility] Potassium [Moles/Vol] Potassium [Moles/v olume] in Serum or Plasma 3.5-5.1 [facility] RBC Auto (Bld) [#/Vol]Ordere d By: Niranjan Hi on 11-23-2023 RBC (Bld) [#/Vol] Erythrocytes [#/volu me] in Blood by Automated count 3.60-5.00 [facility] RBC morphologyOrdered By: Orly Hi on 11-23-2023 RBC morphology finding Nom (Bld) Normal Normal Normal [facility] Comment on above: Performed By: #### S CAN CBC, CK, BNP ####[place] [address] [place] [address] [facility] Scan and CBCon 11-23-2023 Mean Corpuscular HGB Conc 33.1 g/dL Normal 32.0-35.0 [facility] Comment on above: Performed By: #### S CAN CBC, CK, BNP ####[place] [id number] [facility] Monocytes/100 WBC (Bld) 20.05 % High 0.00-20.00 [facility] Comment on above: Result Comment: For adults in ED, MDW > 20.0 may be associated with a higher risk of sepsis during the first 12 hrs of hospital admission The predictive value of MDW for identifying sepsis in patients with hematological abnormalities has not been established Performed By: #### S CAN CBC, CK, BNP ####[place] [address] [place] [address] [facility] NRBC% 0.2 /100{WBC} Normal 0-0.5 [facility] Comment on above: Performed By: #### S CAN CBC, CK, BNP ####[place] [address] [place] [address] [facility] Platelet Estimate Normal Normal Normal [facility] Comment on above: Performed By: #### S CAN CBC, CK, BNP ####[place] [address] [place] [address] [facility] Platelet Morphology Normal Normal Normal [facility] Comment on above: Result Comment: PERF ORMED BY:[place] [address] [place], [place] [phone] MEDICAL DIRECTORARIE ROJO M.D. Performed By: #### S CAN CBC, CK, BNP ####[place] [address] [place] [address] [facility] Serum or plasma anion gap de terminationOrdered By: Niranjan Hi on 11-23-2023 Anion gap [Moles/Vol] 12.8 mmol/L Normal 6.0-15.0 [facility] Comment on above: Performed By: #### B MP, HS TROP ####[address] [address] [facility] Anion gap [Moles/Vol] Serum or plasma an ion gap determination 6.0-15.0 [facility] Sodium [Moles/volume] in Ser um or PlasmaOrdered By: Niranjan Hi on 11-23-2023 Sodium [Moles/Vol] 141 mmol/L Normal 136-145 [facility] Comment on above: Performed By: #### B MP, HS TROP ####[address] [address] [facility] Sodium [Moles/Vol] Sodium [Moles/volume ] in Serum or Plasma 136-145 [facility] Troponin I High Sensitivityo n 11-23-2023 Troponin I High Sensitivity 16.1 pg/mL High 0.0-15.0 [facility] Comment on above: Result Comment: PERF ORMED BY:[place] [address] [place] [place], [place] [phone] MEDICAL DIRECTORARIE ROJO M.D. Performed By: #### B MP, HS TROP ####[address] [address] [facility] Troponin I.cardiac [Mass/vol ume] in Serum or Plasma by Detection limit <= 0.01 ng/Ordered By: Niranjan Hi on 11-23-2023 Troponin I.cardiac DL <= 0.01 ng/mL [Mass/Vol] 16.1 pg/mL High 0.0-15.0 [facility] Troponin I.cardiac DL <= 0.01 ng/mL [Mass/Vol] Troponin I.cardiac [Mass/volume] in Serum or Plasma by Detection limit <= 0.01 ng/ High 0.0-15.0 [facility] Urea nitrogen [Mass/volume] in Serum or PlasmaOrdered By: Niranjan Hi on 11-23-2023 Urea nitrogen [Mass/Vol] 20 mg/dL Normal 09-28 [facility] Comment on above: Performed By: #### B MP, HS TROP ####[facility] [id number] [place] [id number] [facility] Urea nitrogen [Mass/Vol] Urea nitrogen [Mass/volume] in Serum or Plasma 09-28 [facility] WBC Auto (Bld) [#/Vol]Ordere d By: Niranjan Hi on 11-23-2023 WBC (Bld) [#/Vol] Leukocytes [#/volume ] in Blood by Automated count 3.8-11.6 [facility] XR chest 1V portableon 11-22 XR chest 1V portable Normal [facility] Automated basophil %Ordered By: Mejia Aaron on 11-21-2023 Basophils/100 WBC (Bld) 0.3 % Normal . [facility] Comment on above: Performed By: #### B MP, CBC ####[facility] [id number] [place] [id number] [facility] Automated basophil countOrde red By: Mejia Aaron on 11-21-2023 Basophils (Bld) [#/Vol] 0.0 10*3/uL Normal 0.0-0.2 [facility] Comment on above: Result Comment: PERF ORMED BY:[address] [place], [place] [phone] MEDICAL DIRECTORARIE ROJO M.D. Performed By: #### B MP, CBC ####[facility] [id number] [place] [address] [facility] Automated blood monocyte cou ntOrdered By: Mejia Aaron on 11-21-2023 Monocytes (Bld) [#/Vol] 0.3 10*3/uL Normal 0.0-0.8 [facility] Comment on above: Performed By: #### B MP, CBC ####[facility] [place] [address] [facility] Automated eosinophil %Ordere d By: Mejia Galen on 11-21-2023 Eosinophils/100 WBC (Bld) 0.1 % Normal . [facility] Comment on above: Performed By: #### B MP, CBC ####[place] [id number] [facility] Automated eosinophil countOr dered By: Mejia Galen on 11-21-2023 Eosinophils (Bld) [#/Vol] 0.0 10*3/uL Normal 0.0-0.45 [facility] Comment on above: Performed By: #### B MP, CBC ####[address] Automated monocyte %Ordered By: Mejia Weldonpriya on 11-21-2023 Monocytes/100 WBC (Bld) 4.4 % Normal . [facility] Comment on above: Performed By: #### B MP, CBC ####[place] [id number] [facility] Automated neutrophil %Ordere d By: Mejia Galen on 11-21-2023 Neutrophils/100 WBC (Bld) 84.5 % Normal . [facility] Comment on above: Performed By: #### B MP, CBC ####[place] [id number] [facility] Basic Metabolic Panelon 11-05 Creatinine Clr Calc Pharmacy 52.81 Normal [facility] Comment on above: Result Comment: PERF ORMED BY:[address] [place], [place] [phone] MEDICAL BIANCA ROJO M.D. Performed By: #### B MP, CBC ####[place] [id number] [facility] GFR/1.73 sq M.predicted MDRD (S/P/Bld) [Vol rate/Area] 57.160 mL/min/{1.73_m2} Normal [facility] Comment on above: Performed By: #### B MP, CBC ####[place] [address] [place] [address] [place] Basophils Auto (Bld) [#/Vol] Ordered By: Mejia Aaron on 11-21-2023 Basophils (Bld) [#/Vol] Automated basophil count 0.0-0.2 [facility] Basophils/100 WBC Auto (Bld) Ordered By: Mejia Aaron on 11-21-2023 Basophils/100 WBC (Bld) Automated basophil % . [facility] Calcium [Mass/volume] in Ser um or PlasmaOrdered By: Mejia Aaron on 11-21-2023 Calcium [Mass/Vol] 8.7 mg/dL Normal 8.6-10.3 [facility] Comment on above: Performed By: #### B DIANNE, CBC ####[facility] [id number] [place] [id number] [facility] Calcium [Mass/Vol] Calcium [Mass/volume ] in Serum or Plasma 8.6-10.3 [facility] Carbon dioxide, total [Moles /volume] in Serum or PlasmaOrdered By: Mejia Aaron on 11-21-2023 CO2 [Moles/Vol] 31.4 mmol/L High 21.0-31.0 [facility] Comment on above: Performed By: #### B MP, CBC ####[facility] [address] [place] [id number] [facility] CO2 [Moles/Vol] Carbon dioxide, tota l [Moles/volume] in Serum or Plasma High 21.0-31.0 [facility] Chloride [Moles/volume] in S cait or PlasmaOrdered By: Mejia Aaron on 11-21-2023 Chloride [Moles/Vol] 102 mmol/L Normal 98-107 [facility] Comment on above: Performed By: #### B MP, CBC ####[facility] [id number] [place] [address] [facility] Chloride [Moles/Vol] Chloride [Moles/vol ume] in Serum or Plasma 98-107 [facility] Complete Blood Count Auto Di ffon 11-21-2023 Mean Corpuscular HGB Conc 32.9 g/dL Normal 32.0-35.0 [facility] Comment on above: Performed By: #### B MP, CBC ####[facility] [id number] [place] [id number] [facility] NRBC% 0.1 /100{WBC} Normal 0-0.5 [facility] Comment on above: Performed By: #### B MP, CBC ####[facility] [id number] [place] [id number] [facility] Creatinine [Mass/volume] in Serum or PlasmaOrdered By: Mejia Aaron on 11-21-2023 Creatinine [Mass/Vol] 1.05 mg/dL Normal 0.60-1.20 [facility] Comment on above: Performed By: #### B MP, CBC ####[address] Creatinine [Mass/Vol] Creatinine [Mass/v olume] in Serum or Plasma 0.60-1.20 [facility] Eosinophils Auto (Bld) [#/Vo l]Ordered By: Mejia Aaron on 11-21-2023 Eosinophils (Bld) [#/Vol] Automated eosinophil count 0.0-0.45 [facility] Eosinophils/100 WBC Auto (Bl d)Ordered By: Mejia Aaron on 11-21-2023 Eosinophils/100 WBC (Bld) Automated eosinophil % . [facility] Erythrocyte distribution wid th Auto (RBC) [Ratio]Ordered By: Mejia Aaron on 11-21-2023 Erythrocyte distribution width (RBC) [Ratio] Erythrocyte distribution width [Ratio] by Automated count 11.9-15.3 [facility] Erythrocyte distribution wid th [Ratio] by Automated countOrdered By: Mejia Aaron on 11-21-2023 Erythrocyte distribution width (RBC) [Ratio] 14.0 % Normal 11.9-15.3 [facility] Comment on above: Performed By: #### B MP, CBC ####[facility] Leo[address] [place] [id number] [facility] Erythrocytes [#/volume] in B lood by Automated countOrdered By: Mejia Aaron on 11-21-2023 RBC (Bld) [#/Vol] 3.83 10*6/uL Normal 3.60-5.00 [facility] Comment on above: Performed By: #### B MP, CBC ####[facility] Ois[address]74 [place] [id number] [facility] Glucose [Mass/volume] in Ser um or PlasmaOrdered By: Mejia Aaron on 11-21-2023 Glucose [Mass/Vol] 146 mg/dL High 70-100 [facility] Comment on above: ADA recommended refe rence rangeRandom Glucose Reference Range is dependent on time and content of last meal. Glucose of more than 200 mg/dL in a nonstressed, ambulatory subject supports the diagnosis of Diabetes Mellitus. Result Comment: [place] [facility] Glucose Reference Range is dependent on time and content of last meal. Glucose of more than 200 mg/dL in a nonstressed, ambulatory subject supports the diagnosis of Diabetes Mellitus. ADA recommended reference range Performed By: #### B MP, CBC ####[facility] [id number] [place] [id number] [facility] Glucose [Mass/Vol] Glucose [Mass/volume ] in Serum or Plasma High 70-100 [facility] Comment on above: ADA recommended refe rence rangeRandom Glucose Reference Range is dependent on time and content of last meal. Glucose of more than 200 mg/dL in a nonstressed, ambulatory subject supports the diagnosis of Diabetes Mellitus. Hematocrit Auto (Bld) [Volum e fraction]Ordered By: Mejia Aaron on 11-21-2023 Hematocrit (Bld) [Volume fraction] Hematocrit [Volume Fraction] of Blood by Automated count 34.0-46.4 [facility] Hematocrit [Volume Fraction] of Blood by Automated countOrdered By: Mejia Aaron on 11-21-2023 Hematocrit (Bld) [Volume fraction] 34.1 % Normal 34.0-46.4 [facility] Comment on above: Performed By: #### B MP, CBC ####[facility] [id number] [place] [id number] [facility] Hemoglobin [Mass/volume] in BloodOrdered By: Mejia Aaron on 11-21-2023 Hemoglobin (Bld) [Mass/Vol] 11.2 g/dL Low 11.8-15.4 [facility] Comment on above: Performed By: #### B MP, CBC ####[place] [id number] [facility] Hemoglobin (Bld) [Mass/Vol] Hemoglobin [Mass/volume] in Blood Low 11.8-15.4 [facility] Leukocytes [#/volume] correc hugh for nucleated erythrocytes in Blood by Automated counOrdered By: Mejia Aaron on 11-21-2023 WBC corrected for nucl RBC Auto (Bld) [#/Vol] 6.8 10*3/uL 3.8-11.6 [facility] WBC corrected for nucl RBC Auto (Bld) [#/Vol] Leukocytes [#/volume] corrected for nucleated erythrocytes in Blood by Automated coun 3.8-11.6 [facility] Leukocytes [#/volume] in Blo od by Automated countOrdered By: Mejia Aaron on 11-21-2023 WBC (Bld) [#/Vol] 6.8 10*3/uL Normal 3.8-11.6 [facility] Comment on above: Performed By: #### B MP, CBC ####[place] [id number] [facility] Lymphocytes Auto (Bld) [#/Vo l]Ordered By: eMjia Aaron on 11-21-2023 Lymphocytes (Bld) [#/Vol] Lymphocytes [#/volume] in Blood by Automated count Low 1.00-4.8 [facility] Lymphocytes [#/volume] in Bl ood by Automated countOrdered By: Mejia Aaron on 11-21-2023 Lymphocytes (Bld) [#/Vol] 0.7 10*3/uL Low 1.00-4.8 [facility] Comment on above: Performed By: #### B MP, CBC ####[facility] Lymphocytes/100 WBC Auto (Bl d)Ordered By: Mejia Aaron on 11-21-2023 Lymphocytes/100 WBC (Bld) Lymphocytes/100 leukocytes in Blood by Automated count . [facility] Lymphocytes/100 leukocytes i n Blood by Automated countOrdered By: Mejia Aaron on 11-21-2023 Lymphocytes/100 WBC (Bld) 10.7 % Normal . [facility] Comment on above: Performed By: #### B MP, CBC ####[facility] [id number] [place] [address] MCH Auto (RBC) [Entitic mass ]Ordered By: Mejia Aaron on 11-21-2023 MCH (RBC) [Entitic mass] MCH [Entitic mass] by Automated count 24.7-34.3 [facility] MCH [Entitic mass] by Automa hugh countOrdered By: Mejia Aaron on 11-21-2023 MCH (RBC) [Entitic mass] 29.2 pg Normal 24.7-34.3 [facility] Comment on above: Performed By: #### B MP, CBC ####[address] MCHC Auto (RBC) [Mass/Vol]Or dered By: Mejia Aaron on 11-21-2023 MCHC (RBC) [Mass/Vol] 32.9 g/dL 32.0-35.0 [facility] MCHC (RBC) [Mass/Vol] MCHC [Mass/volume] by Automated count 32.0-35.0 [facility] MCV Auto (RBC) [Entitic vol] Ordered By: Mejia Aaron on 11-21-2023 MCV (RBC) [Entitic vol] MCV [Entitic volume] by Automated count 80-100 [facility] MCV [Entitic volume] by Auto mated countOrdered By: Mejia Aaron on 11-21-2023 MCV (RBC) [Entitic vol] 89.0 fL Normal 80-100 [facility] Comment on above: Performed By: #### B MP, CBC ####[facility] [id number] [place] [address] [facility] Monocytes Auto (Bld) [#/Vol] Ordered By: Mejia Aaron on 11-21-2023 Monocytes (Bld) [#/Vol] Automated blood monocyte count 0.0-0.8 [facility] Monocytes/100 WBC Auto (Bld) Ordered By: Mejia Aaron on 11-21-2023 Monocytes/100 WBC (Bld) Automated monocyte % . [facility] Neutrophils Auto (Bld) [#/Vo l]Ordered By: Mejia Aaron on 11-21-2023 Neutrophils (Bld) [#/Vol] Neutrophils [#/volume] in Blood by Automated count 1.8-7.7 [facility] Neutrophils [#/volume] in Bl ood by Automated countOrdered By: Mejia Aaron on 11-21-2023 Neutrophils (Bld) [#/Vol] 5.8 10*3/uL Normal 1.8-7.7 [facility] Comment on above: Performed By: #### B MP, CBC ####[facility] [id number] [place] [id number] [facility] Neutrophils/100 WBC Auto (Bl d)Ordered By: Mejia Aaron on 11-21-2023 Neutrophils/100 WBC (Bld) Automated neutrophil % . [facility] No Panel InformationOrdered By: Mejia Aaron on 11-21-2023 Estimated GFR (CKD-EPI) 57.160 mL/Min [facility] Creatinine Clearance (Chem 52.81 [facility] Nucleated erythrocytes [Pres ence] in Blood by Automated countOrdered By: Mejia Aaron on 11-21-2023 Nucleated RBC Auto Ql (Bld) 0.1 /100{WBC} 0-0.5 [facility] Nucleated RBC Auto Ql (Bld) Nucleated erythrocytes [Presence] in Blood by Automated count 0-0.5 [facility] Platelet mean volume Auto (B ld) [Entitic vol]Ordered By: Mejia Aaron on 11-21-2023 Platelet mean volume (Bld) [Entitic vol] Platelet mean volume [Entitic volume] in Blood by Automated count 6.3-10.7 [facility] Platelet mean volume [Entiti c volume] in Blood by Automated countOrdered By: Mejia Aaron on 11-21-2023 Platelet mean volume (Bld) [Entitic vol] 8.8 fL Normal 6.3-10.7 [facility] Comment on above: Performed By: #### B MP, CBC ####[facility] [id number] [place] [id number] [facility] Platelets Auto (Bld) [#/Vol] Ordered By: Mejia Aaron on 11-21-2023 Platelets (Bld) [#/Vol] Platelets [#/volume] in Blood by Automated count 150-450 [facility] Platelets [#/volume] in Bloo d by Automated countOrdered By: Mejia Aaron on 11-21-2023 Platelets (Bld) [#/Vol] 204 10*3/uL Normal 150-450 [facility] Comment on above: Performed By: #### B MP, CBC ####[facility] [id number] [place] [id number] [facility] Potassium [Moles/volume] in Serum or PlasmaOrdered By: Mejia Aaron on 11-21-2023 Potassium [Moles/Vol] 4.3 mmol/L Normal 3.5-5.1 [facility] Comment on above: Performed By: #### B MP, CBC ####[facility] [id number] [place], [place] [id number] [facility] Potassium [Moles/Vol] Potassium [Moles/v olume] in Serum or Plasma 3.5-5.1 [facility] RBC Auto (Bld) [#/Vol]Ordere d By: Mejia Aaron on 11-21-2023 RBC (Bld) [#/Vol] Erythrocytes [#/volu me] in Blood by Automated count 3.60-5.00 [facility] Serum or plasma anion gap de terminationOrdered By: Mejia Aaron on 11-21-2023 Anion gap [Moles/Vol] 12.9 mmol/L Normal 6.0-15.0 [facility] Comment on above: Performed By: #### B MP, CBC ####[facility] [id number] [place] [id number] [facility] Anion gap [Moles/Vol] Serum or plasma an ion gap determination 6.0-15.0 [facility] Sodium [Moles/volume] in Ser um or PlasmaOrdered By: Mejia Aaron on 11-21-2023 Sodium [Moles/Vol] 142 mmol/L Normal 136-145 [facility] Comment on above: Performed By: #### B MP, CBC ####[facility] [id number] [place] [address] [facility] Sodium [Moles/Vol] Sodium [Moles/volume ] in Serum or Plasma 136-145 [facility] Urea nitrogen [Mass/volume] in Serum or PlasmaOrdered By: Mejia Aaron on 11-21-2023 Urea nitrogen [Mass/Vol] 30 mg/dL [address] Comment on above: Performed By: #### B MP, CBC ####[facility] [id number] [place] [address] [facility] Urea nitrogen [Mass/Vol] Urea nitrogen [Mass/volume] in Serum or Plasma [address] WBC Auto (Bld) [#/Vol]Ordere d By: Mejia Aaron on 11-21-2023 WBC (Bld) [#/Vol] Leukocytes [#/volume ] in Blood by Automated count 3.8-11.6 [facility] Activated partial thrombopla stin time (aPTT) in platelet poor plasma by coagulation aOrdered By: Mejia Aaron on 11-19-2023 aPTT Coag (PPP) [Time] 29.8 s 25.1-36.5 [facility] Comment on above: A hematocrit value g reater than 55% may lead to inaccurate results in coagulation testing. Patients having hematocrit values >55% require a special collection tube for coagulation studies. Please contact the laboratory at [phone] for redraw instructions. Alanine aminotransferase [En zymatic activity/volume] in Serum or PlasmaOrdered By: Mejia Aaron on 11-19-2023 ALT [Catalytic activity/Vol] 44 U/L Normal [facility] Comment on above: Order Comment: pt in therapy Performed By: #### C DIANNE, MG ####[place] [id number] [place] [id number] [facility] ALT [Catalytic activity/Vol] Alanine aminotransferase [Enzymatic activity/volume] in Serum or Plasma [facility] Albumin [Mass/volume] in Ser um or Plasma by Bromocresol green (BCG) dye binding methoOrdered By: Mejia Aaron on 11-19-2023 Albumin BCG dye [Mass/Vol] 3.6 g/dL 3.5-5.7 [facility] Albumin BCG dye [Mass/Vol] Albumin [Mass/volume] in Serum or Plasma by Bromocresol green (BCG) dye binding metho 3.5-5.7 [facility] Alkaline phosphatase [Enzyma tic activity/volume] in Serum or PlasmaOrdered By: Mejia Aaron on 11-19-2023 ALP [Catalytic activity/Vol] 73 U/L Normal 34-104 [facility] Comment on above: Order Comment: pt in therapy Performed By: #### C DIANNE, MG ####[place] [id number] [facility] ALP [Catalytic activity/Vol] Alkaline phosphatase [Enzymatic activity/volume] in Serum or Plasma 34-104 [facility] Aspartate aminotransferase [ Enzymatic activity/volume] in Serum or PlasmaOrdered By: Mejia Aaron on 11-19-2023 AST [Catalytic activity/Vol] 67 U/L High 13- [facility] Comment on above: Order Comment: pt in therapy Performed By: #### C DIANNE, MG ####[place] [id number] [facility] AST [Catalytic activity/Vol] Aspartate aminotransferase [Enzymatic activity/volume] in Serum or Plasma High [address] Bilirubin.total [Mass/volume ] in Serum or PlasmaOrdered By: Mejia Aaron on 11-19-2023 Bilirubin [Mass/Vol] 0.4 mg/dL Normal 0.3-1.0 [facility] Comment on above: Order Comment: pt in therapy Performed By: #### C MP, MG ####[place] [id number] [facility] Bilirubin [Mass/Vol] Bilirubin.total [Mass/volume] in Serum or Plasma 0.3-1.0 [facility] Complete Blood Count Auto Di ffon 11-19-2023 Basophils (Bld) [#/Vol] 0.0 10*3/uL Normal 0.0-0.2 [facility] Comment on above: Order Comment: pt in therapy Result Comment: PERF ORMED BY:[address] [place], [place] [phone] MEDICAL DIRECTORARIE ROJO M.D. Performed By: #### P T, PTT, CBC ####[address] Basophils/100 WBC (Bld) 0.1 % Normal . [facility] Comment on above: Order Comment: pt in therapy Performed By: #### P T, PTT, CBC ####[place] [id number] [facility] Eosinophils (Bld) [#/Vol] 0.0 10*3/uL Normal 0.0-0.45 [facility] Comment on above: Order Comment: pt in therapy Performed By: #### P T, PTT, CBC ####[place] [id number] [facility] Eosinophils/100 WBC (Bld) 0.0 % Normal . [facility] Comment on above: Order Comment: pt in therapy Performed By: #### P T, PTT, CBC ####[place] [id number] [facility] Erythrocyte distribution width (RBC) [Ratio] 14.1 % Normal 11.9-15.3 [facility] Comment on above: Order Comment: pt in therapy Performed By: #### P T, PTT, CBC ####[place] [address] Hematocrit (Bld) [Volume fraction] 34.5 % Normal 34.0-46.4 [facility] Comment on above: Order Comment: pt in therapy Performed By: #### P T, PTT, CBC ####[address] Hemoglobin (Bld) [Mass/Vol] 11.3 g/dL Low 11.8-15.4 [facility] Comment on above: Order Comment: pt in therapy Performed By: #### P T, PTT, CBC ####[address] Lymphocytes (Bld) [#/Vol] 0.7 10*3/uL Low 1.00-4.8 [facility] Comment on above: Order Comment: pt in therapy Performed By: #### P T, PTT, CBC ####[address] Lymphocytes/100 WBC (Bld) 5.5 % Normal . [facility] Comment on above: Order Comment: pt in therapy Performed By: #### P T, PTT, CBC ####[address] MCH (RBC) [Entitic mass] 29.2 pg Normal 24.7-34.3 [facility] Comment on above: Order Comment: pt in therapy Performed By: #### P T, PTT, CBC ####[address] MCV (RBC) [Entitic vol] 89.1 fL Normal 80-100 [facility] Comment on above: Order Comment: pt in therapy Performed By: #### P T, PTT, CBC ####[address] Mean Corpuscular HGB Conc 32.8 g/dL Normal 32.0-35.0 [facility] Comment on above: Order Comment: pt in therapy Performed By: #### P T, PTT, CBC ####[place] [address] [place] Monocytes (Bld) [#/Vol] 0.4 10*3/uL Normal 0.0-0.8 [facility] Comment on above: Order Comment: pt in therapy Performed By: #### P T, PTT, CBC ####[address] Monocytes/100 WBC (Bld) 3.4 % Normal . [facility] Comment on above: Order Comment: pt in therapy Performed By: #### P T, PTT, CBC ####[address] Neutrophils (Bld) [#/Vol] 11.9 10*3/uL High 1.8-7.7 [facility] Comment on above: Order Comment: pt in therapy Performed By: #### P T, PTT, CBC ####[address] Neutrophils/100 WBC (Bld) 91.0 % Normal . [facility] Comment on above: Order Comment: pt in therapy Performed By: #### P T, PTT, CBC ####[address] NRBC% 0.0 /100{WBC} Normal 0-0.5 [facility] Comment on above: Order Comment: pt in therapy Performed By: #### P T, PTT, CBC ####[address] Platelet mean volume (Bld) [Entitic vol] 8.7 fL Normal 6.3-10.7 [facility] Comment on above: Order Comment: pt in therapy Performed By: #### P T, PTT, CBC ####[place] [id number] [facility] Platelets (Bld) [#/Vol] 168 10*3/uL Normal 150-450 [facility] Comment on above: Order Comment: pt in therapy Performed By: #### P T, PTT, CBC ####[address] RBC (Bld) [#/Vol] 3.87 10*6/uL Normal 3.60-5.00 [facility] Comment on above: Order Comment: pt in therapy Performed By: #### P T, PTT, CBC ####[place] [id number] [facility] WBC (Bld) [#/Vol] 13.0 10*3/uL High 3.8-11.6 [facility] Comment on above: Order Comment: pt in therapy Performed By: #### P T, PTT, CBC ####[place] [id number] [facility] Comprehensive Metabolic Pane lelia 11-19-2023 Albumin [Mass/Vol] 3.6 g/dL Normal 3.5-5.7 [facility] Comment on above: Order Comment: pt in therapy Performed By: #### C MP, MG ####[address] Anion gap [Moles/Vol] 14.3 mmol/L Normal 6.0-15.0 [facility] Comment on above: Order Comment: pt in therapy Performed By: #### C MP, MG ####[address] Calcium [Mass/Vol] 8.8 mg/dL Normal 8.6-10.3 [facility] Comment on above: Order Comment: pt in therapy Performed By: #### C MP, MG ####[place] [id number] [facility] Chloride [Moles/Vol] 103 mmol/L Normal 98-107 [facility] Comment on above: Order Comment: pt in therapy Performed By: #### C MP, MG ####[place] [id number] [facility] CO2 [Moles/Vol] 30.6 mmol/L Normal 21.0-31.0 [facility] Comment on above: Order Comment: pt in therapy Performed By: #### C MP, MG ####[place] [id number] [place] Creatinine [Mass/Vol] 1.08 mg/dL Normal 0.60-1.20 [facility] Comment on above: Order Comment: pt in therapy Performed By: #### C MP, MG ####[place] [address] [place] [id number] [facility] Creatinine Clr Calc Pharmacy 50.15 Normal [facility] Comment on above: Order Comment: pt in therapy Performed By: #### C MP, MG ####[place] [id number] [facility] GFR/1.73 sq M.predicted MDRD (S/P/Bld) [Vol rate/Area] 55.259 mL/min/{1.73_m2} Normal [facility] Comment on above: Order Comment: pt in therapy Performed By: #### C MP, MG ####[address] Glucose [Mass/Vol] 158 mg/dL High 70-100 [facility] Comment on above: Order Comment: pt in therapy Result Comment: [facility] Glucose Reference Range is dependent on time and content of last meal. Glucose of more than 200 mg/dL in a nonstressed, ambulatory subject supports the diagnosis of Diabetes Mellitus. ADA recommended reference range Performed By: #### C MP, MG ####[address] Potassium [Moles/Vol] 3.9 mmol/L Normal 3.5-5.1 [facility] Comment on above: Order Comment: pt in therapy Performed By: #### C MP, MG ####[address] Sodium [Moles/Vol] 144 mmol/L Normal 136-145 [facility] Comment on above: Order Comment: pt in therapy Performed By: #### C MP, MG ####[place] [id number] [facility] Urea nitrogen [Mass/Vol] 33 mg/dL High 7-25 [facility] Comment on above: Order Comment: pt in therapy Performed By: #### C MP, MG ####[facility] [id number] [place] [address] [facility] Globulin Calc (S) [Mass/Vol] Ordered By: Mejia Aaron on 11-19-2023 Globulin (S) [Mass/Vol] Serum globulin measurement by calculation (mass/volume) [facility] INR in Platelet poor plasma by Coagulation assayOrdered By: Mejia Aaron on 11-19-2023 INR Coag (PPP) [Relative time] 1.0 {INR} Normal [facility] Comment on above: INR Therapeutic Rang e [...] Performed By: #### P T, PTT, CBC ####[facility] [id number] [place] [address] [facility] INR Coag (PPP) [Relative time] INR in Platelet poor plasma by Coagulation assay [facility] Comment on above: INR Therapeutic Rang e [...] 11-19-2023 Magnesium [Mass/Vol] 2.2 mg/dL Normal 1.9-2.7 [facility] Comment on above: Order Comment: pt in therapy Result Comment: PERF ORMED BY:[place] [address] [place], [place] [phone] MEDICAL DIRECTORARIE ROJO M.D. Performed By: #### C MP, MG ####[place] [id number] [place] [address] [facility] Magnesium [Mass/Vol] Magnesium [Mass/vol ume] in Serum or Plasma 1.9-2.7 [facility] Partial Thromboplastin Timeo n 11-19-2023 aPTT Coag (Bld) [Time] 29.8 s Normal 25.1-36.5 [facility] Comment on above: Order Comment: pt in therapy Result Comment: A he matocrit value greater than 55% may lead to inaccurate results in coagulation testing. Patients having hematocrit values >55% require a special collection tube for coagulation studies. Please contact the laboratory at [phone] for redraw instructions.PERFORMED BY:[place] [address] [place], [place] [phone] MEDICAL DIRECTORARIE ROJO M.D. Performed By: #### P T, PTT, CBC ####[address] [address] [facility] Protein [Mass/volume] in Ser um or PlasmaOrdered By: Mejia Aaron on 11-19-2023 Protein [Mass/Vol] 5.9 g/dL Low 6.4-8.9 [facility] Comment on above: Order Comment: pt in therapy Performed By: #### C MP, MG ####[address] [address] [facility] Protein [Mass/Vol] Protein [Mass/volume ] in Serum or Plasma Low 6.4-8.9 [facility] Prothrombin time (PT)Ordered By: Mejia Aaron on 11-19-2023 PT Coag (PPP) [Time] 12.1 s Normal 9.0-12.9 [facility] Comment on above: A hematocrit value g reater than 55% may lead to inaccurate results in coagulation testing. Patients having hematocrit values >55% require a special collection tube for coagulation studies. Please contact the laboratory at [phone] for redraw instructions. Order Comment: pt in therapy Result Comment: A he matocrit value greater than 55% may lead to inaccurate results in coagulation testing. Patients having hematocrit values >55% require a special collection tube for coagulation studies. Please contact the laboratory at [phone] for redraw instructions. Performed By: #### P T, PTT, CBC ####[place] [id number] PT Coag (PPP) [Time] Prothrombin time (PT) 9.0- 12.9 [facility] Comment on above: A hematocrit value g reater than 55% may lead to inaccurate results in coagulation testing. Patients having hematocrit values >55% require a special collection tube for coagulation studies. Please contact the laboratory at [phone] for redraw instructions. Serum globulin measurement b y calculation (mass/volume)Ordered By: Mejia Aaron on 11-19-2023 Globulin (S) [Mass/Vol] 2.3 g/dL [facility] Comment on above: Order Comment: pt in therapy Performed By: #### C MP, MG ####[place] [id number] Serum or plasma albumin/glob ulin mass ratioOrdered By: Mejia Aaron on 11-19-2023 Albumin/Globulin [Mass ratio] 1.6 {ratio} [facility] Comment on above: Order Comment: pt in therapy Performed By: #### C MP, MG ####[place] [id number] [place] [id number] [facility] Albumin/Globulin [Mass ratio] Serum or plasma albumin/globulin mass ratio [facility] Troponin I High Sensitivityo n 11-19-2023 Troponin I High Sensitivity 204.7 pg/mL Off scale high 0.0-15.0 [facility] Comment on above: Order Comment: pt in therapy Result Comment: Crit ical Result : Called to and read back by: ZAINA MARLOW at: 11/19/2023 13:33:41 by:MLGPERFORMED BY:[facility] [place], [place] [phone] MEDICAL DIRECTORARIE ROJO M.D. Performed By: #### H S TROP ####[facility] [id number] [place] [address] [facility] Troponin I.cardiac [Mass/vol ume] in Serum or Plasma by Detection limit <= 0.01 ng/Ordered By: Mejia Aaron on 11-19-2023 Troponin I.cardiac DL <= 0.01 ng/mL [Mass/Vol] 204.7 pg/mL High 0.0-15.0 [facility] Comment on above: Critical Result : Ca lled to and read back by: ZAINA MARLOW at: 11/19/2023 13:33:41 by:LISSETTE Troponin I.cardiac DL <= 0.01 ng/mL [Mass/Vol] Troponin I.cardiac [Mass/volume] in Serum or Plasma by Detection limit <= 0.01 ng/ Critically high 0.0-15.0 [facility] Comment on above: Critical Result : Ca lled to and read back by: ZAINA MARLOW at: 11/19/2023 13:33:41 by:LISSETTE aPTT in Platelet poor plasma by Coagulation assayOrdered By: Mejia Aaron on 11-19-2023 aPTT Coag (PPP) [Time] Activated partial thromboplastin time (aPTT) in platelet poor plasma by coagulation a 25.1-36.5 [facility] Comment on above: A hematocrit value g reater than 55% may lead to inaccurate results in coagulation testing. Patients having hematocrit values >55% require a special collection tube for coagulation studies. Please contact the laboratory at [phone] for redraw instructions. Activated partial thrombopla stin time (aPTT) in platelet poor plasma by coagulation aOrdered By: Sandor Mcduffie on 11-18-2023 aPTT Coag (PPP) [Time] 31.3 s 25.1-36.5 [facility] Comment on above: A hematocrit value g reater than 55% may lead to inaccurate results in coagulation testing. Patients having hematocrit values >55% require a special collection tube for coagulation studies. Please contact the laboratory at [phone] for redraw instructions. Aerobic Cultureon 11-18-2023 Aerobic Culture Normal [facility] Comment on above: Performed By: #### G S, AERC ####[place] [address] [place] [id number] [facility] Aerobic cultureOrdered By: Adamaris rich Galen on 11-18-2023 Bacteria identified Aer cx Nom (Unsp spec) Aerobic culture [facility] Automated basophil %Ordered By: Sandor Mcduffie on 11-18-2023 Basophils/100 WBC (Bld) 0.3 % Normal . [facility] Comment on above: Performed By: #### B ILIT, PTT, CUBLD, BMP, CBC, LACTIC, PT ####[place] [id number] [facility] Automated basophil countOrde red By: Sandor Mcduffie on 11-18-2023 Basophils (Bld) [#/Vol] 0.1 10*3/uL Normal 0.0-0.2 [facility] Comment on above: Result Comment: PERF ORMED BY:[address] [place], [place] [phone] MEDICAL DIRECTORARIE ROJO M.D. Performed By: #### B ILIT, PTT, CUBLD, BMP, CBC, LACTIC, PT ####[place] [id number] [facility] Automated blood monocyte cou ntOrdered By: Sandor Mcduffie on 11-18-2023 Monocytes (Bld) [#/Vol] 1.3 10*3/uL High 0.0-0.8 [facility] Comment on above: Performed By: #### B ILIT, PTT, CUBLD, BMP, CBC, LACTIC, PT ####[place] [id number] [facility] Automated eosinophil %Ordere d By: Sandor Mcduffie on 11-18-2023 Eosinophils/100 WBC (Bld) 0.0 % Normal . [facility] Comment on above: Performed By: #### B ILIT, PTT, CUBLD, BMP, CBC, LACTIC, PT ####[place] [id number] Automated eosinophil countOr dered By: Sandor Mcduffie on 11-18-2023 Eosinophils (Bld) [#/Vol] 0.0 10*3/uL Normal 0.0-0.45 [facility] Comment on above: Performed By: #### B ILIT, PTT, CUBLD, BMP, CBC, LACTIC, PT ####[place] [address] [place] [id number] [facility] Automated monocyte %Ordered By: Sandor Mcduffie on 11-18-2023 Monocytes/100 WBC (Bld) 6.4 % Normal . [facility] Comment on above: Performed By: #### B ILIT, PTT, CUBLD, BMP, CBC, LACTIC, PT ####[address] Automated neutrophil %Ordere d By: Sandor Mcduffie on 11-18-2023 Neutrophils/100 WBC (Bld) 89.3 % Normal . [facility] Comment on above: Performed By: #### B ILIT, PTT, CUBLD, BMP, CBC, LACTIC, PT ####[place] [address] [place] [id number] [facility] BNP ser/plasOrdered By: Tristen Mcduffie on 11-18-2023 Natriuretic peptide B (Bld) [Mass/Vol] 418.0 pg/mL High 5-100 [facility] Comment on above: Result Comment: PERF ORMED BY:[address] [place], [place] [phone] MEDICAL BIANCA ROJO M.D. Performed By: #### B PROCEDURES RN, HS TROP ####[place] [id number] [facility] Bacterial blood cultureOrder ed By: Sandor Mcduffie on 11-18-2023 Bacteria identified Cx Nom (Bld) Bacterial blood culture [facility] Bacteria identified Cx Nom (Bld) Bacterial blood culture [facility] Bacteria identified Cx Nom (Bld) NO GROWTH 5 DAYS [facility] Bacteria identified Cx Nom (Bld) NO GROWTH 5 DAYS [facility] Basic Metabolic Panelon 11-05 Creatinine Clr Calc Pharmacy 41.24 Normal [facility] Comment on above: Performed By: #### B ILIT, PTT, CUBLD, BMP, CBC, LACTIC, PT ####[facility] [place] [address] [facility] GFR/1.73 sq M.predicted MDRD (S/P/Bld) [Vol rate/Area] 43.042 mL/min/{1.73_m2} Normal [facility] Comment on above: Performed By: #### B ILIT, PTT, CUBLD, BMP, CBC, LACTIC, PT ####[facility] [place] [id number] [facility] Bilirubin.total [Mass/volume ] in Serum or PlasmaOrdered By: Sandor Mcduffie on 11-18-2023 Bilirubin [Mass/Vol] 1.3 mg/dL High 0.3-1.0 [facility] Comment on above: Samples from patient s [...] the Jendrassik-Grof method for measuring Total Bilirubin.PERFORMED BY:[facility] [place], [place] [phone] MEDICAL DIRECTORARIE ROJO M.D. Performed By: #### B ILIT, PTT, CUBLD, BMP, CBC, LACTIC, PT ####[facility] [id number] [place] [address] [facility] Blood Cultureon 11-18-2023 Bacteria identified Cx Nom (Bld) NO GROWTH 5 DAYS PERFORMED BY: [facility] [address] [place] [id number] PATHOLOGIST ADVERTISING LAYOUT WORKER ARIE ROJO M.D. Normal [facility] Comment on above: Performed By: #### B ILIT, PTT, CUBLD, BMP, CBC, LACTIC, PT ####[place] [place] [id number] Bacteria identified Cx Nom (Bld) NO GROWTH 5 DAYS PERFORMED BY: [facility] [address] [facility] [place] [address] PATHOLOGIST ADVERTISING LAYOUT WORKER ARIE ROJO M.D. Normal [facility] Comment on above: Performed By: #### B ILIT, PTT, CUBLD, BMP, CBC, LACTIC, PT ####[address] COVID CepheidOrdered By: Gen Mcduffie on 11-18-2023 SARS-CoV-2 (COVID-19) Ab IA Ql Negative Negative [facility] Comment on above: This is a duplicate Cepheid Xpert Xpress CoV-2/Flu/RSV Plus RNA by RT-PCR result to be used for statistical tracking purpose only. SARS-CoV-2 (COVID-19) RNA MITCHELL+probe Ql (Unsp spec) Normal [facility] Comment on above: Performed By: #### C EPHEID NEG, COVID19 FLU RSV ####[address] COVID Cepheid NegativeOrdere d By: Sandor Mcduffie on 11-18-2023 SARS-CoV-2 (COVID-19) Ab IA Ql COVID Cepheid Negative [facility] Comment on above: This is a duplicate Cepheid Xpert Xpress CoV-2/Flu/RSV Plus RNA by RT-PCR result to be used for statistical tracking purpose only. Calcium [Mass/volume] in Ser um or PlasmaOrdered By: Sandor Mcduffie on 11-18-2023 Calcium [Mass/Vol] 9.2 mg/dL Normal 8.6-10.3 [facility] Comment on above: Performed By: #### B ILIT, PTT, CUBLD, BMP, CBC, LACTIC, PT ####[address] [address] [facility] Carbon dioxide, total [Moles /volume] in Serum or PlasmaOrdered By: Sandor Mcduffie on 11-18-2023 CO2 [Moles/Vol] 28.7 mmol/L Normal 21.0-31.0 [facility] Comment on above: Performed By: #### B ILIT, PTT, CUBLD, BMP, CBC, LACTIC, PT ####[place] [id number] [facility] Cepheid COVID PCR Negativeon 11-18-2023 SARS-CoV-2 (COVID-19) RNA MITCHELL+probe Ql (Unsp spec) Negative Normal Negative [facility] Comment on above: Result Comment: This is a duplicate Cepheid Xpert Xpress CoV-2/Flu/RSV Plus RNA by RT-PCR result to be used for statistical tracking purpose only.PERFORMED BY:[address] [place], [place] [phone] MEDICAL DIRECTORARIE ROJO M.D. Performed By: #### C EPHEID NEG, COVID19 FLU RSV ####[place] [id number] [facility] Chloride [Moles/volume] in S cait or PlasmaOrdered By: Sandor Mcduffie on 11-18-2023 Chloride [Moles/Vol] 101 mmol/L Normal 98-107 [facility] Comment on above: Performed By: #### B ILIT, PTT, CUBLD, BMP, CBC, LACTIC, PT ####[place] [id number] [facility] Complete Blood Count Auto Di ffon 11-18-2023 Mean Corpuscular HGB Conc 32.7 g/dL Normal 32.0-35.0 [facility] Comment on above: Performed By: #### B ILIT, PTT, CUBLD, BMP, CBC, LACTIC, PT ####[place] [id number] [facility] Monocytes/100 WBC (Bld) 25.52 % High 0.00-20.00 [facility] Comment on above: Result Comment: For adults in ED, MDW > 20.0 may be associated with a higher risk of sepsis during the first 12 hrs of hospital admission Performed By: #### B ILIT, PTT, CUBLD, BMP, CBC, LACTIC, PT ####[place] [id number] [address] NRBC% 0.1 /100{WBC} Normal 0-0.5 [facility] Comment on above: Performed By: #### B ILIT, PTT, CUBLD, BMP, CBC, LACTIC, PT ####[place] [id number] Creatinine [Mass/volume] in Serum or PlasmaOrdered By: Sandor Mcduffie on 11-18-2023 Creatinine [Mass/Vol] 1.33 mg/dL High 0.60-1.20 [facility] Comment on above: Performed By: #### B ILIT, PTT, CUBLD, BMP, CBC, LACTIC, PT ####[address] ECG 12 lead ECGon 11-18-2023 ECG 12 lead ECG Normal [facility] ECG 12 lead ECG Normal [facility] Erythrocyte distribution wid th [Ratio] by Automated countOrdered By: Sandor Mcduffie on 11-18-2023 Erythrocyte distribution width (RBC) [Ratio] 14.5 % Normal 11.9-15.3 [facility] Comment on above: Performed By: #### B ILIT, PTT, CUBLD, BMP, CBC, LACTIC, PT ####[address] Erythrocytes [#/volume] in B lood by Automated countOrdered By: Sandor Mcduffie on 11-18-2023 RBC (Bld) [#/Vol] 4.26 10*6/uL Normal 3.60-5.00 [facility] Comment on above: Performed By: #### B ILIT, PTT, CUBLD, BMP, CBC, LACTIC, PT ####[address] [place] [address] [facility] Glucose [Mass/volume] in Ser um or PlasmaOrdered By: Sandor Mcduffie on 11-18-2023 Glucose [Mass/Vol] 146 mg/dL High 70-100 [facility] Comment on above: ADA recommended refe rence rangeRandom Glucose Reference Range is dependent on time and content of last meal. Glucose of more than 200 mg/dL in a nonstressed, ambulatory subject supports the diagnosis of Diabetes Mellitus. Result Comment: [place] om Glucose Reference Range is dependent on time and content of last meal. Glucose of more than 200 mg/dL in a nonstressed, ambulatory subject supports the diagnosis of Diabetes Mellitus. ADA recommended reference range Performed By: #### B ILIT, PTT, CUBLD, BMP, CBC, LACTIC, PT ####[address] [address] [facility] Gram Stainon 11-18-2023 Microscopic observation Gram stain Nom (Unsp spec) Gram Stain Result Gram Positive Cocci RARE EPITHELIAL CELLS 2+ WHITE BLOOD CELLS PERFORMED BY: [facility] [address] [place] [address] PATHOLOGIST ADVERTISING LAYOUT WORKER ARIE ROJO M.D. Normal [facility] Comment on above: Performed By: #### G S, AERC ####[address] [address] [facility] Gram stain for investigation of transfusion reactionOrdered By: Mejia Aaron on 11-18-2023 Microscopic observation Gram stain Nom (Unsp spec) [facility] Gram stain microscopyOrdered By: Mejia Aaron on 11-18-2023 Microscopic observation Gram stain Nom (Unsp spec) Gram stain microscopy [facility] Hematocrit [Volume Fraction] of Blood by Automated countOrdered By: Sandor Mcduffie on 11-18-2023 Hematocrit (Bld) [Volume fraction] 37.6 % Normal 34.0-46.4 [facility] Comment on above: Performed By: #### B ILIT, PTT, CUBLD, BMP, CBC, LACTIC, PT ####[address] [address] [facility] Hemoglobin [Mass/volume] in BloodOrdered By: Sandor Mcduffie on 11-18-2023 Hemoglobin (Bld) [Mass/Vol] 12.3 g/dL Normal 11.8-15.4 [facility] Comment on above: Performed By: #### B ILIT, PTT, CUBLD, BMP, CBC, LACTIC, PT ####[place] [id number] [place] [address] [facility] INR in Platelet poor plasma by Coagulation assayOrdered By: Sandor Mcduffie on 11-18-2023 INR Coag (PPP) [Relative time] 1.2 {INR} Normal [facility] Comment on above: INR Therapeutic Rang e [...] ILIT, PTT, CUBLD, BMP, CBC, LACTIC, PT ####[place] [id number] [place] [address] [facility] Lactate [Moles/volume] in Se rum or PlasmaOrdered By: Sandor Mcduffie on 11-18-2023 Lactate [Moles/Vol] 1.6 mmol/L Normal 0.5-2.2 [facility] Comment on above: Result Comment: PERF ORMED BY:[address] [place], [place] [phone] MEDICAL BIANCA ROJO M.D. Performed By: #### B ILIT, PTT, CUBLD, BMP, CBC, LACTIC, PT ####[place] [id number] [place] [id number] [facility] Lactate [Moles/Vol] Lactate [Moles/volum e] in Serum or Plasma 0.5-2.2 [facility] Leukocytes [#/volume] correc hugh for nucleated erythrocytes in Blood by Automated counOrdered By: Sandor Mcduffie on 11-18-2023 WBC corrected for nucl RBC Auto (Bld) [#/Vol] 20.1 10*3/uL High 3.8-11.6 [facility] Leukocytes [#/volume] in Blo od by Automated countOrdered By: Sandor Mcduffie on 11-18-2023 WBC (Bld) [#/Vol] 20.1 10*3/uL High 3.8-11.6 [facility] Comment on above: Performed By: #### B ILIT, PTT, CUBLD, BMP, CBC, LACTIC, PT ####[place] [id number] [facility] Lymphocytes [#/volume] in Bl ood by Automated countOrdered By: Sandor Mcduffie on 11-18-2023 Lymphocytes (Bld) [#/Vol] 0.8 10*3/uL Low 1.00-4.8 [facility] Comment on above: Performed By: #### B ILIT, PTT, CUBLD, BMP, CBC, LACTIC, PT ####[place] [id number] [facility] Lymphocytes/100 leukocytes i n Blood by Automated countOrdered By: Sandor Mcduffie on 11-18-2023 Lymphocytes/100 WBC (Bld) 4.0 % Normal . [facility] Comment on above: Performed By: #### B ILIT, PTT, CUBLD, BMP, CBC, LACTIC, PT ####[place] [id number] [facility] MCH [Entitic mass] by Automa hugh countOrdered By: Sandor Mcduffie on 11-18-2023 MCH (RBC) [Entitic mass] 28.9 pg Normal 24.7-34.3 [facility] Comment on above: Performed By: #### B ILIT, PTT, CUBLD, BMP, CBC, LACTIC, PT ####[place] [id number] MCHC Auto (RBC) [Mass/Vol]Or dered By: Sandor Mcduffie on 11-18-2023 MCHC (RBC) [Mass/Vol] 32.7 g/dL 32.0-35.0 [facility] MCV [Entitic volume] by Auto mated countOrdered By: Sandor Mcduffie on 11-18-2023 MCV (RBC) [Entitic vol] 88.2 fL Normal 80-100 [facility] Comment on above: Performed By: #### B ILIT, PTT, CUBLD, BMP, CBC, LACTIC, PT ####[place] [id number] Monocyte distribution width [Entitic volume] in Blood by AutomatedOrdered By: Sandor Mcduffie on 11-18-2023 Monocyte distribution width Auto (Bld) [Entitic vol] 25.52 % High 0.00-20.00 [facility] Comment on above: For adults in ED, MD W > 20.0 may be associated with a higher risk of sepsis during the first 12 hrs of hospital admission Monocyte distribution width Auto (Bld) [Entitic vol] Monocyte distribution width [Entitic volume] in Blood by Automated High 0.00-20.00 [facility] Comment on above: For adults in ED, MD W > 20.0 may be associated with a higher risk of sepsis during the first 12 hrs of hospital admission Natriuretic peptide B [Mass/ Vol]Ordered By: Sandor Mcduffie on 11-18-2023 Natriuretic peptide B (Bld) [Mass/Vol] BNP ser/plas High 5-100 [facility] Neutrophils [#/volume] in Bl ood by Automated countOrdered By: Sandor Mcduffie on 11-18-2023 Neutrophils (Bld) [#/Vol] 18.0 10*3/uL High 1.8-7.7 [facility] Comment on above: Performed By: #### B ILIT, PTT, CUBLD, BMP, CBC, LACTIC, PT ####[address] No Panel InformationOrdered By: Sandor Mcduffie on 11-18-2023 Estimated GFR (CKD-EPI) 43.042 mL/Min [facility] Creatinine Clearance (Chem 41.24 [facility] Nucleated erythrocytes [Pres ence] in Blood by Automated countOrdered By: Sandor Mcduffie on 11-18-2023 Nucleated RBC Auto Ql (Bld) 0.1 /100{WBC} 0-0.5 [facility] Partial Thromboplastin Timeo n 11-18-2023 aPTT Coag (Bld) [Time] 31.3 s Normal 25.1-36.5 [facility] Comment on above: Result Comment: A he matocrit value greater than 55% may lead to inaccurate results in coagulation testing. Patients having hematocrit values >55% require a special collection tube for coagulation studies. Please contact the laboratory at [phone] for redraw instructions.PERFORMED BY:[place] [address] [place] [place], [place] [phone] MEDICAL DIRECTORARIE ROJO M.D. Performed By: #### B ILIT, PTT, CUBLD, BMP, CBC, LACTIC, PT ####[place] [id number] [facility] Platelet mean volume [Entiti c volume] in Blood by Automated countOrdered By: Sandor Mcduffie on 11-18-2023 Platelet mean volume (Bld) [Entitic vol] 8.3 fL Normal 6.3-10.7 [facility] Comment on above: Performed By: #### B ILIT, PTT, CUBLD, BMP, CBC, LACTIC, PT ####[place] [id number] [facility] Platelets [#/volume] in Bloo d by Automated countOrdered By: Sandor Mcduffie on 11-18-2023 Platelets (Bld) [#/Vol] 193 10*3/uL Normal 150-450 [facility] Comment on above: Performed By: #### B ILIT, PTT, CUBLD, BMP, CBC, LACTIC, PT ####[place] [id number] [facility] Potassium [Moles/volume] in Serum or PlasmaOrdered By: Sandor Mcduffie on 11-18-2023 Potassium [Moles/Vol] 3.3 mmol/L Low 3.5-5.1 [facility] Comment on above: Performed By: #### B ILIT, PTT, CUBLD, BMP, CBC, LACTIC, PT ####[place] [id number] [place] [address] [facility] Prothrombin time (PT)Ordered By: Sandor Mcduffie on 11-18-2023 PT Coag (PPP) [Time] 14.3 s High 9.0-12.9 [facility] Comment on above: A hematocrit value g reater than 55% may lead to inaccurate results in coagulation testing. Patients having hematocrit values >55% require a special collection tube for coagulation studies. Please contact the laboratory at [phone] for redraw instructions. Result Comment: A he matocrit value greater than 55% may lead to inaccurate results in coagulation testing. Patients having hematocrit values >55% require a special collection tube for coagulation studies. Please contact the laboratory at [phone] for redraw instructions. Performed By: #### B ILIT, PTT, CUBLD, BMP, CBC, LACTIC, PT ####[place] [address] [place] [address] [facility] Respiratory specimen influen za A virus, influenza B virus, respiratory syncytical virOrdered By: Sandor Mcduffie on 11-18-2023 SARS-CoV-2 (COVID-19) RNA MITCHELL+probe Ql (Unsp spec) Respiratory specimen influenza A virus, influenza B virus, respiratory syncytical vir [facility] Serum or plasma anion gap de terminationOrdered By: Sandor Mcduffie on 11-18-2023 Anion gap [Moles/Vol] 16.6 mmol/L High 6.0-15.0 [facility] Comment on above: Performed By: #### B ILIT, PTT, CUBLD, BMP, CBC, LACTIC, PT ####[place] [id number] [place] [address] [facility] Sodium [Moles/volume] in Ser um or PlasmaOrdered By: Sandor Mcduffie on 11-18-2023 Sodium [Moles/Vol] 143 mmol/L Normal 136-145 [facility] Comment on above: Performed By: #### B ILIT, PTT, CUBLD, BMP, CBC, LACTIC, PT ####[address] [address] [facility] Troponin I High Sensitivityo n 11-18-2023 Troponin I High Sensitivity 421.1 pg/mL Off scale high 0.0-15.0 [facility] Comment on above: Result Comment: Crit ical Result : Called to and read back by: EJ JOHNSON at: 11/18/2023 19:49:36 by:LFMPERFORMED BY:[address] ERNANDEZROBERTDANIELS, [place] [phone] MEDICAL DIRECTORARIE ROJO M.D. Performed By: #### H S TROP ####[address] [address] [facility] Troponin I High Sensitivity 500.7 pg/mL Off scale high 0.0-15.0 [facility] Comment on above: Result Comment: Crit ical Result : Called to and read back by: CADENCE ALEXANDER at: 11/18/2023 13:19:45 by:RGPERFORMED BY:[place] [address] [address] [place], [place] [phone] MEDICAL DIRECTORARIE ROJO M.D. Performed By: #### H S TROP ####[address] [address] [facility] Troponin I High Sensitivity 311.7 pg/mL Off scale high 0.0-15.0 [facility] Comment on above: Result Comment: Crit ical Result : Called to and read back by: CHRISTOPHER NUÑEZ at: 11/18/2023 11:46:30 by:RGPERFORMED BY:[address] ERNANDEZROBERT, [place] [phone] MEDICAL DIRECTORARIE ROJO M.D. Performed By: #### B PROCEDURES RN, HS TROP ####[place] [address] [place] [address] [facility] Troponin I.cardiac [Mass/vol ume] in Serum or Plasma by Detection limit <= 0.01 ng/Ordered By: Sandor Mcduffie on 11-18-2023 Troponin I.cardiac DL <= 0.01 ng/mL [Mass/Vol] 500.7 pg/mL High 0.0-15.0 [facility] Comment on above: Critical Result : Ca lled to and read back by: CADENCE ALEXANDER at: 11/18/2023 13:19:45 by:MARJORIE Urea nitrogen [Mass/volume] in Serum or PlasmaOrdered By: Sandor Mcduffie on 11-18-2023 Urea nitrogen [Mass/Vol] 24 mg/dL Normal 09-28 [facility] Comment on above: Performed By: #### B ILIT, PTT, CUBLD, BMP, CBC, LACTIC, PT ####[address] [address] [facility] XR chest 2V*on 11-18-2023 XR chest 2V* Normal [facility] A1C with Estimated Average G luon 10-14-2023 Glucose [Mass/Vol] 108 mg/dL Normal [facility] Comment on above: Result Comment: PERF ORMED BY:[address] [place], [place] [phone] MEDICAL DIRECTORARIE ROJO M.D. Performed By: #### C MP, LIPID, CBC, A1C WTH eA, TSH3, BNP, PTH ####[place] [address] [place] [address] [facility] Alanine aminotransferase [En zymatic activity/volume] in Serum or PlasmaOrdered By: Neto Arauz on 10-14-2023 ALT [Catalytic activity/Vol] 27 U/L Normal [facility] Comment on above: Performed By: #### C MP, LIPID, CBC, A1C WTH eA, TSH3, BNP, PTH ####[address] [address] [facility] Albumin [Mass/volume] in Ser um or Plasma by Bromocresol green (BCG) dye binding methoOrdered By: Neto Arauz on 10-14-2023 Albumin BCG dye [Mass/Vol] 4.2 g/dL 3.5-5.7 [facility] Alkaline phosphatase [Enzyma tic activity/volume] in Serum or PlasmaOrdered By: Neto Arauz on 10-14-2023 ALP [Catalytic activity/Vol] 132 U/L High 34-104 [facility] Comment on above: Performed By: #### C MP, LIPID, CBC, A1C WTH eA, TSH3, BNP, PTH ####[place] [id number] Aspartate aminotransferase [ Enzymatic activity/volume] in Serum or PlasmaOrdered By: Neto Arauz on 10-14-2023 AST [Catalytic activity/Vol] 28 U/L Normal 13-39 [facility] Comment on above: Performed By: #### C MP, LIPID, CBC, A1C WTH eA, TSH3, BNP, PTH ####[address] Automated basophil %Ordered By: Neto Arauz on 10-14-2023 Basophils/100 WBC (Bld) 0.8 % Normal . [facility] Comment on above: Performed By: #### C MP, LIPID, CBC, A1C WTH eA, TSH3, BNP, PTH ####[address] Automated basophil countOrde red By: Neto Arauz on 10-14-2023 Basophils (Bld) [#/Vol] 0.0 10*3/uL Normal 0.0-0.2 [facility] Comment on above: Result Comment: PERF ORMED BY:[address] [place], [place] [phone] MEDICAL DIRECTORARIE RJOO M.D. Performed By: #### C MP, LIPID, CBC, A1C WTH eA, TSH3, BNP, PTH ####[place] [id number] [facility] Automated blood monocyte cou ntOrdered By: Neto Arauz on 10-14-2023 Monocytes (Bld) [#/Vol] 0.5 10*3/uL Normal 0.0-0.8 [facility] Comment on above: Performed By: #### C MP, LIPID, CBC, A1C WTH eA, TSH3, BNP, PTH ####[address] Automated eosinophil %Ordere d By: Neto Arauz on 10-14-2023 Eosinophils/100 WBC (Bld) 7.0 % Normal . [facility] Comment on above: Performed By: #### C MP, LIPID, CBC, A1C WTH eA, TSH3, BNP, PTH ####[address] Automated eosinophil countOr dered By: Neto Arauz on 10-14-2023 Eosinophils (Bld) [#/Vol] 0.3 10*3/uL Normal 0.0-0.45 [facility] Comment on above: Performed By: #### C MP, LIPID, CBC, A1C WTH eA, TSH3, BNP, PTH ####[address] Automated monocyte %Ordered By: Neto Arauz on 10-14-2023 Monocytes/100 WBC (Bld) 11.9 % Normal . [facility] Comment on above: Performed By: #### C MP, LIPID, CBC, A1C WTH eA, TSH3, BNP, PTH ####[address] Automated neutrophil %Ordere d By: Neto Arauz on 10-14-2023 Neutrophils/100 WBC (Bld) 59.9 % Normal . [facility] Comment on above: Performed By: #### C MP, LIPID, CBC, A1C WTH eA, TSH3, BNP, PTH ####[address] BNP ser/plasOrdered By: Lata Arauz on 10-14-2023 Natriuretic peptide B (Bld) [Mass/Vol] 31.0 pg/mL Normal 5-100 [facility] Comment on above: Result Comment: PERF ORMED BY:[address] HERNÁNDEZNORTH [place]AMS, [place] [phone] MEDICAL DIRECTORARIE ROJO M.D. Performed By: #### C MP, LIPID, CBC, A1C WTH eA, TSH3, BNP, PTH ####[address] [address] [facility] Bilirubin.total [Mass/volume ] in Serum or PlasmaOrdered By: Neto Arauz on 10-14-2023 Bilirubin [Mass/Vol] 0.5 mg/dL Normal 0.3-1.0 [facility] Comment on above: Performed By: #### C MP, LIPID, CBC, A1C WTH eA, TSH3, BNP, PTH ####[address] [address] [facility] Calcium [Mass/volume] in Ser um or PlasmaOrdered By: Neto Arauz on 10-14-2023 Calcium [Mass/Vol] 8.9 mg/dL Normal 8.6-10.3 [facility] Comment on above: Performed By: #### C MP, LIPID, CBC, A1C WTH eA, TSH3, BNP, PTH ####[place] [id number] [facility] Carbon dioxide, total [Moles /volume] in Serum or PlasmaOrdered By: Neto Arauz on 10-14-2023 CO2 [Moles/Vol] 35.5 mmol/L High 21.0-31.0 [facility] Comment on above: Performed By: #### C MP, LIPID, CBC, A1C WTH eA, TSH3, BNP, PTH ####[address] [address] [place] Chloride [Moles/volume] in S cait or PlasmaOrdered By: Neto Arauz on 10-14-2023 Chloride [Moles/Vol] 99 mmol/L Normal 98-107 [facility] Comment on above: Performed By: #### C MP, LIPID, CBC, A1C WTH eA, TSH3, BNP, PTH ####[address] [address] [facility] Cholesterol [Mass/volume] in Serum or PlasmaOrdered By: Neto Arauz on 10-14-2023 Cholesterol [Mass/Vol] 173 mg/dL Normal 140-200 [facility] Comment on above: Chol less than 200 m g/dl low riskChol 201-239 mg/dl borderline riskChol 240 mg/dl and greater high risk Result Comment: Chol less than 200 mg/dl low risk Chol 201-239 mg/dl borderline risk Chol 240 mg/dl and greater high risk Performed By: #### C MP, LIPID, CBC, A1C WTH eA, TSH3, BNP, PTH ####[facility] [address] [place] [address] [facility] Cholesterol in LDL Calc [Mas s/Vol]Ordered By: Neto Arauz on 10-14-2023 Cholesterol in LDL [Mass/Vol] 91 mg/dL 0-100 [facility] Comment on above: LDL ATP III CLASSIFI CATIONLDL less than 100 mg/dL OptimalLDL 100-129 mg/dL Near or above optimalLDL 130-159 mg/dL Borderline highLDL 160-189 mg/dL HighLDL greater than 189 mg/dL Very high Cholesterol in VLDL Calc [Ma ss/Vol]Ordered By: Neto Arauz on 10-14-2023 Cholesterol in VLDL [Mass/Vol] 17 mg/dL [facility] Complete Blood Count Auto Di ffon 10-14-2023 Mean Corpuscular HGB Conc 32.6 g/dL Normal 32.0-35.0 [facility] Comment on above: Performed By: #### C MP, LIPID, CBC, A1C WTH eA, TSH3, BNP, PTH ####[facility] [address] [place] [address] [facility] NRBC% 0.2 /100{WBC} Normal 0-0.5 [facility] Comment on above: Performed By: #### C MP, LIPID, CBC, A1C WTH eA, TSH3, BNP, PTH ####[facility] [place] [address] [facility] Comprehensive Metabolic Pane lelia 10-14-2023 Albumin [Mass/Vol] 4.2 g/dL Normal 3.5-5.7 [facility] Comment on above: Performed By: #### C MP, LIPID, CBC, A1C WTH eA, TSH3, BNP, PTH ####[place] [id number] [facility] GFR/1.73 sq M.predicted MDRD (S/P/Bld) [Vol rate/Area] 50.199 mL/min/{1.73_m2} Normal [facility] Comment on above: Performed By: #### C MP, LIPID, CBC, A1C WTH eA, TSH3, BNP, PTH ####[address] [address] [facility] Creatinine [Mass/volume] in Serum or PlasmaOrdered By: Neto Arauz on 10-14-2023 Creatinine [Mass/Vol] 1.17 mg/dL Normal 0.60-1.20 [facility] Comment on above: Performed By: #### C MP, LIPID, CBC, A1C WTH eA, TSH3, BNP, PTH ####[place] [id number] [facility] Erythrocyte distribution wid th [Ratio] by Automated countOrdered By: Neto Arauz on 10-14-2023 Erythrocyte distribution width (RBC) [Ratio] 16.7 % High 11.9-15.3 [facility] Comment on above: Performed By: #### C MP, LIPID, CBC, A1C WTH eA, TSH3, BNP, PTH ####[place] [id number] [facility] Erythrocytes [#/volume] in B lood by Automated countOrdered By: Neto Arauz on 10-14-2023 RBC (Bld) [#/Vol] 3.82 10*6/uL Normal 3.60-5.00 [facility] Comment on above: Performed By: #### C MP, LIPID, CBC, A1C WTH eA, TSH3, BNP, PTH ####[place] [id number] [facility] Glucose [Mass/volume] in Ser um or PlasmaOrdered By: Neto Arauz on 10-14-2023 Glucose [Mass/Vol] 97 mg/dL Normal 70-100 [facility] Comment on above: ADA recommended refe rence rangeRandom Glucose Reference Range is dependent on time and content of last meal. Glucose of more than 200 mg/dL in a nonstressed, ambulatory subject supports the diagnosis of Diabetes Mellitus. Result Comment: [place] om Glucose Reference Range is dependent on time and content of last meal. Glucose of more than 200 mg/dL in a nonstressed, ambulatory subject supports the diagnosis of Diabetes Mellitus. ADA recommended reference range Performed By: #### C MP, LIPID, CBC, A1C WTH eA, TSH3, BNP, PTH ####[facility] [place] [address] [facility] Glucose mean value [Mass/vol ume] in Blood Estimated from glycated hemoglobinOrdered By: Neto Arauz on 10-14-2023 Average glucose Estimated from glycated hemoglobin (Bld) [Mass/Vol] 108 mg/dL [facility] Hematocrit [Volume Fraction] of Blood by Automated countOrdered By: Neto Arauz on 10-14-2023 Hematocrit (Bld) [Volume fraction] 35.4 % Normal 34.0-46.4 [facility] Comment on above: Performed By: #### C MP, LIPID, CBC, A1C WTH eA, TSH3, BNP, PTH ####[place] [id number] [place] [id number] [facility] Hemoglobin A1c percentageOrd ered By: Neto Arauz on 10-14-2023 HbA1c (Bld) [Mass fraction] 5.4 % Normal 4.3-5.6 [facility] Comment on above: Increased risk for d iabetes: 5.7 - 6.4diabetes: >6.4glycemic control for adults with diabetes: <7.0 Result Comment: Incr eased risk for diabetes: 5.7 - 6.4 diabetes: >6.4 glycemic control for adults with diabetes: <7.0 Performed By: #### C MP, LIPID, CBC, A1C WTH eA, TSH3, BNP, PTH ####[address] [place] [address] [facility] Hemoglobin [Mass/volume] in BloodOrdered By: Neto Arauz on 10-14-2023 Hemoglobin (Bld) [Mass/Vol] 11.5 g/dL Low 11.8-15.4 [facility] Comment on above: Performed By: #### C MP, LIPID, CBC, A1C WTH eA, TSH3, BNP, PTH ####[facility] [id number] [place] [id number] [facility] Leukocytes [#/volume] correc hugh for nucleated erythrocytes in Blood by Automated counOrdered By: Neto Arauz on 10-14-2023 WBC corrected for nucl RBC Auto (Bld) [#/Vol] 4.3 10*3/uL 3.8-11.6 [facility] Leukocytes [#/volume] in Blo od by Automated countOrdered By: Neto Arauz on 10-14-2023 WBC (Bld) [#/Vol] 4.3 10*3/uL Normal 3.8-11.6 [facility] Comment on above: Performed By: #### C MP, LIPID, CBC, A1C WTH eA, TSH3, BNP, PTH ####[facility] [id number] [place] [id number] [facility] Lipid Panelon 10-14-2023 LDL Cholesterol,Calculated 91 mg/dL Normal 0-100 [facility] Comment on above: Result Comment: LDL ATP III CLASSIFICATION LDL less than 100 mg/dL Optimal LDL 100-129 mg/dL Near or above optimal LDL 130-159 mg/dL Borderline high LDL 160-189 mg/dL High LDL greater than 189 mg/dL Very high Performed By: #### C MP, LIPID, CBC, A1C WTH eA, TSH3, BNP, PTH ####[facility] [id number] [place] [id number] [facility] Triglyceride w/Reflex 85 mg/dL Normal 0-149 [facility] Comment on above: Result Comment: TRIG ATP III CLASSIFICATION TRIG less than 150 mg/dL Normal TRIG 150-199 mg/dL Borderline high TRIG 200-500 mg/dL High TRIG greater than 500 mg/dL Very high Standard traceable to the Center for Disease Conrtrol and Prevention (CDC) test method. Performed By: #### C MP, LIPID, CBC, A1C WTH eA, TSH3, BNP, PTH ####[facility] VLDL CHOLESTEROL 17 mg/dL Normal [facility] Comment on above: Performed By: #### C MP, LIPID, CBC, A1C WTH eA, TSH3, BNP, PTH ####[place] [id number] Lymphocytes [#/volume] in Bl ood by Automated countOrdered By: Neto Arauz on 10-14-2023 Lymphocytes (Bld) [#/Vol] 0.9 10*3/uL Low 1.00-4.8 [facility] Comment on above: Performed By: #### C MP, LIPID, CBC, A1C WTH eA, TSH3, BNP, PTH ####[place] [id number] Lymphocytes/100 leukocytes i n Blood by Automated countOrdered By: Neto Arauz on 10-14-2023 Lymphocytes/100 WBC (Bld) 20.4 % Normal . [facility] Comment on above: Performed By: #### C MP, LIPID, CBC, A1C WTH eA, TSH3, BNP, PTH ####[place] [id number] MCH [Entitic mass] by Automa hugh countOrdered By: Neto Arauz on 10-14-2023 MCH (RBC) [Entitic mass] 30.2 pg Normal 24.7-34.3 [facility] Comment on above: Performed By: #### C MP, LIPID, CBC, A1C WTH eA, TSH3, BNP, PTH ####[address] MCHC Auto (RBC) [Mass/Vol]Or dered By: Neto Arauz on 10-14-2023 MCHC (RBC) [Mass/Vol] 32.6 g/dL 32.0-35.0 [facility] MCV [Entitic volume] by Auto mated countOrdered By: Neto Arauz on 10-14-2023 MCV (RBC) [Entitic vol] 92.6 fL Normal 80-100 [facility] Comment on above: Performed By: #### C MP, LIPID, CBC, A1C WTH eA, TSH3, BNP, PTH ####[place] [id number] [place] [id number] [facility] Neutrophils [#/volume] in Bl ood by Automated countOrdered By: Neto Arauz on 10-14-2023 Neutrophils (Bld) [#/Vol] 2.6 10*3/uL Normal 1.8-7.7 [facility] Comment on above: Performed By: #### C MP, LIPID, CBC, A1C WTH eA, TSH3, BNP, PTH ####[place] [id number] [facility] No Panel InformationOrdered By: Neto Arauz on 10-14-2023 Estimated GFR (CKD-EPI) 50.199 mL/Min [facility] Creatinine Clearance (Chem N/A [facility] Nucleated erythrocytes [Pres ence] in Blood by Automated countOrdered By: Neto Arauz on 10-14-2023 Nucleated RBC Auto Ql (Bld) 0.2 /100{WBC} 0-0.5 [facility] Parathyrin.intact [Mass/volu me] in Serum or PlasmaOrdered By: Neto Arauz on 10-14-2023 Parathyrin.intact [Mass/Vol] 69.7 pg/mL [facility] Parathyroid Hormone Intacton 10-14-2023 Parathyroid Hormone Intact 69.7 pg/mL Normal [facility] Comment on above: Result Comment: PERF ORMED BY:[address] [place], [place] [id number] MEDICAL DIRECTORARIE ROJO M.D. Performed By: #### C MP, LIPID, CBC, A1C WTH eA, TSH3, BNP, PTH ####[place] [id number] [facility] Platelet mean volume [Entiti c volume] in Blood by Automated countOrdered By: Neto Arauz on 10-14-2023 Platelet mean volume (Bld) [Entitic vol] 8.1 fL Normal 6.3-10.7 [facility] Comment on above: Performed By: #### C MP, LIPID, CBC, A1C WTH eA, TSH3, BNP, PTH ####[place] [id number] [facility] Platelets [#/volume] in Bloo d by Automated countOrdered By: Neto Arauz on 10-14-2023 Platelets (Bld) [#/Vol] 191 10*3/uL Normal 150-450 [facility] Comment on above: Performed By: #### C MP, LIPID, CBC, A1C WTH eA, TSH3, BNP, PTH ####[place] [id number] [facility] Potassium [Moles/volume] in Serum or PlasmaOrdered By: Neto Arauz on 10-14-2023 Potassium [Moles/Vol] 3.6 mmol/L Normal 3.5-5.1 [facility] Comment on above: Performed By: #### C MP, LIPID, CBC, A1C WTH eA, TSH3, BNP, PTH ####[address] Protein [Mass/volume] in Ser um or PlasmaOrdered By: Neto Arauz on 10-14-2023 Protein [Mass/Vol] 6.3 g/dL Low 6.4-8.9 [facility] Comment on above: Performed By: #### C MP, LIPID, CBC, A1C WTH eA, TSH3, BNP, PTH ####[place] [id number] [facility] Serum globulin measurement b y calculation (mass/volume)Ordered By: Neto Arauz on 10-14-2023 Globulin (S) [Mass/Vol] 2.1 g/dL [facility] Comment on above: Performed By: #### C MP, LIPID, CBC, A1C WTH eA, TSH3, BNP, PTH ####[place] [id number] [facility] Serum or plasma albumin/glob ulin mass ratioOrdered By: Neto Arauz on 10-14-2023 Albumin/Globulin [Mass ratio] 2.0 {ratio} [facility] Comment on above: Performed By: #### C MP, LIPID, CBC, A1C WTH eA, TSH3, BNP, PTH ####[place] [id number] Serum or plasma anion gap de terminationOrdered By: Neto Arauz on 10-14-2023 Anion gap [Moles/Vol] 11.1 mmol/L Normal 6.0-15.0 [facility] Comment on above: Performed By: #### C MP, LIPID, CBC, A1C WTH eA, TSH3, BNP, PTH ####[place] [id number] Serum or plasma high density lipoprotein (HDL) cholesterol measurementOrdered By: Neto Arauz on 10-14-2023 Cholesterol in HDL [Mass/Vol] 65 mg/dL Normal 23-92 [facility] Comment on above: HDL CHOL ATP-III CLA SSIFICATION Cardiovascular RiskHDL > or equal to 60 mg/dL LOWHDL < 40 mg/dL HIGH Result Comment: HDL CHOL ATP-III CLASSIFICATION Cardiovascular Risk HDL > or equal to 60 mg/dL LOW HDL < 40 mg/dL HIGH Performed By: #### C MP, LIPID, CBC, A1C WTH eA, TSH3, BNP, PTH ####[place] [id number] Serum or plasma total choles terol/high density lipoprotein (HDL) cholesterol mass ratOrdered By: Neto Arauz on 10-14-2023 Cholesterol.total/Chol esterol in HDL [Mass ratio] 2.7 {ratio} Normal <5.0 [facility] Comment on above: Performed By: #### C MP, LIPID, CBC, A1C WTH eA, TSH3, BNP, PTH ####[address] Sodium [Moles/volume] in Ser um or PlasmaOrdered By: Neto Arauz on 10-14-2023 Sodium [Moles/Vol] 142 mmol/L Normal 136-145 [facility] Comment on above: Performed By: #### C MP, LIPID, CBC, A1C WTH eA, TSH3, BNP, PTH ####[facility] [place] [address] [facility] Thyrotropin [Units/volume] i n Serum or PlasmaOrdered By: Neto Arauz on 10-14-2023 TSH Qn 0.66 m[IU]/L Normal 0.45-5.33 [facility] Comment on above: Result Comment: PERF ORMED BY:[address] [place], [place] [phone] MEDICAL DIRECTORARIE ROJO M.D. Performed By: #### C MP, LIPID, CBC, A1C WTH eA, TSH3, BNP, PTH ####[place] [place] [address] [facility] Triglyceride [Mass/volume] i n Serum or PlasmaOrdered By: Neto Arauz on 10-14-2023 Triglyceride [Mass/Vol] 85 mg/dL 0-149 [facility] Comment on above: TRIG ATP III CLASSIF ICATIONTRIG less than 150 mg/dL NormalTRIG 150-199 mg/dL Borderline highTRIG 200-500 mg/dL High TRIG greater than 500 mg/dL Very highStandard traceable to the Center for Disease Conrtrol and Prevention (CDC) test method. Urea nitrogen [Mass/volume] in Serum or PlasmaOrdered By: Neto Arauz on 10-14-2023 Urea nitrogen [Mass/Vol] 15 mg/dL Normal 7-25 [facility] Comment on above: Performed By: #### C MP, LIPID, CBC, A1C WTH eA, TSH3, BNP, PTH ####[place] [address] [place] [address] [facility] Vitamin D 25 Hydroxy Totalon 10-14-2023 Vitamin D 25 Hydroxy Total 65.2 ng/mL Normal 30-100 [facility] Comment on above: Order Comment: Reaso n for Exam Vitamin D deficiency Result Comment: ADRI MIN D STATUS 25(OH)VITAMIN D RANGE (ng/mL) Deficient <20 Insufficient 20 to <30 Sufficient 30 to 100 Reference: Frannie MF,Oumar NC, Radha MCGOWAN, et al. Evaluation,treatment, and prevention of vitamin D deficiency; an Endocrine Society clinical practice guideline. JCEM. 2010; 96(7):191-.PERFORMED BY:[address] [place], [place] [phone] MEDICAL DIRECTORARIE ROJO M.D. Performed By: #### V [id number] ####[facility] [place] [address] [facility] Vitamin D+Metabolites [Mass/ volume] in Serum or PlasmaOrdered By: Neto Arauz on 10-14-2023 Vitamin D+Metabolites [Mass/Vol] 65.2 ng/mL 30-100 [facility] Comment on above: VITAMIN D STATUS 25( [...] Albumin BCG dye [Mass/Vol] 3.5 g/dL 3.5-5.7 [facility] Calcium [Mass/volume] in Ser um or PlasmaOrdered By: Keena Kern on 08-11-2023 Calcium [Mass/Vol] 9.4 mg/dL Normal 8.6-10.3 [facility] Comment on above: Performed By: #### R ENAL ####[place] [address] [place] [address] [facility] Capillary blood glucose dilia urement by glucometer (mass/volume)Ordered By: Frank Hudson on 08-11-2023 Glucose [Mass/Vol] 91 mg/dL Normal [facility] Comment on above: Random Glucose Refer ence Range is dependent on time and content of last meal. Glucose of more than 200 mg/dL in a nonstressed, ambulatory subject supports the diagnosis of Diabetes Mellitus. Result Comment: [place] om Glucose Reference Range is dependent on time and content of last meal. Glucose of more than 200 mg/dL in a nonstressed, ambulatory subject supports the diagnosis of Diabetes Mellitus. Performed By: #### G LULS ####Point of Care testing, Carbon dioxide, total [Moles /volume] in Serum or PlasmaOrdered By: Keena Kren on 08-11-2023 CO2 [Moles/Vol] 28.1 mmol/L Normal 21.0-31.0 [facility] Comment on above: Performed By: #### R ENAL ####[address] Chloride [Moles/volume] in S cait or PlasmaOrdered By: Keena Kern on 08-11-2023 Chloride [Moles/Vol] 103 mmol/L Normal 98-107 [facility] Comment on above: Performed By: #### R ENAL ####[place] [id number] [facility] Creatinine [Mass/volume] in Serum or PlasmaOrdered By: Keena Kern on 08-11-2023 Creatinine [Mass/Vol] 1.11 mg/dL Normal 0.60-1.20 [facility] Comment on above: Performed By: #### R ENAL ####[place] [id number] [facility] Erythrocyte distribution wid th [Ratio] by Automated countOrdered By: Frank Handyr on 08-11-2023 Erythrocyte distribution width (RBC) [Ratio] 13.5 % Normal 11.9-15.3 [facility] Comment on above: Performed By: #### C BCNO ####[place] [id number] [facility] Erythrocytes [#/volume] in B lood by Automated countOrdered By: Obdarryldagood Daromar on 08-11-2023 RBC (Bld) [#/Vol] 3.55 10*6/uL Low 3.60-5.00 [facility] Comment on above: Performed By: #### C BCNO ####[place] [id number] [facility] Glucose Poct Glucometerson 0 08-11-2023 Commemt1 Glu2: Cleaned Meter Normal [facility] Comment on above: Result Comment: PERF ORMED BY:[facility] [place], [place] [phone] MEDICAL DIRECTORARIE ROJO M.D. Performed By: #### G LULS ####Point of Care testing, Commemt1 Glu2: Cleaned Meter Normal [facility] Comment on above: Result Comment: PERF ORMED BY:[place] [address] [place], [place] [phone] MEDICAL DIRECTORARIE ROJO M.D. Performed By: #### G LULS ####Point of Care testing, Glucose [Mass/Vol] 73 mg/dL Normal [facility] Comment on above: Result Comment: [place] om Glucose Reference Range is dependent on time and content of last meal. Glucose of more than 200 mg/dL in a nonstressed, ambulatory subject supports the diagnosis of Diabetes Mellitus. Performed By: #### G LULS ####Point of Care testing, Glucose [Mass/volume] in Ser um or PlasmaOrdered By: Keena Kern on 08-11-2023 Glucose [Mass/Vol] 73 mg/dL Normal 70-100 [facility] Comment on above: ADA recommended refe rence rangeRandom Glucose Reference Range is dependent on time and content of last meal. Glucose of more than 200 mg/dL in a nonstressed, ambulatory subject supports the diagnosis of Diabetes Mellitus. Result Comment: [place] Glucose Reference Range is dependent on time and content of last meal. Glucose of more than 200 mg/dL in a nonstressed, ambulatory subject supports the diagnosis of Diabetes Mellitus. ADA recommended reference range Performed By: #### R ENAL ####[facility] [id number] [place] [address] [facility] Hematocrit [Volume Fraction] of Blood by Automated countOrdered By: Frank Hudson on 08-11-2023 Hematocrit (Bld) [Volume fraction] 31.3 % Low 34.0-46.4 [facility] Comment on above: Performed By: #### C BCNO ####[place] [id number] Hemoglobin [Mass/volume] in BloodOrdered By: Frank Freemanomar on 08-11-2023 Hemoglobin (Bld) [Mass/Vol] 10.6 g/dL Low 11.8-15.4 [facility] Comment on above: Performed By: #### C BCNO ####[address] Hemogram CBC Without Diffon 08-11-2023 Mean Corpuscular HGB Conc 33.9 g/dL Normal 32.0-35.0 [facility] Comment on above: Performed By: #### C BCNO ####[address] WBC (Bld) [#/Vol] 7.9 10*3/uL Normal 3.8-11.6 [facility] Comment on above: Performed By: #### C BCNO ####[address] Leukocytes [#/volume] correc hugh for nucleated erythrocytes in Blood by Automated counOrdered By: Frank Freemanomar on 08-11-2023 WBC corrected for nucl RBC Auto (Bld) [#/Vol] 7.9 10*3/uL 3.8-11.6 [facility] MCH [Entitic mass] by Automa hugh countOrdered By: Frank Freemanomar on 08-11-2023 MCH (RBC) [Entitic mass] 29.9 pg Normal 24.7-34.3 [facility] Comment on above: Performed By: #### C BCNO ####[address] MCHC Auto (RBC) [Mass/Vol]Or dered By: Obdarryldagood Freemanomar on 08-11-2023 MCHC (RBC) [Mass/Vol] 33.9 g/dL 32.0-35.0 [facility] MCV [Entitic volume] by Auto mated countOrdered By: Shaunadagood Freemanomar on 08-11-2023 MCV (RBC) [Entitic vol] 88.2 fL Normal 80-100 [facility] Comment on above: Performed By: #### C BCNO ####[address] [address] [facility] No Panel InformationOrdered By: Frank Hudson on 08-11-2023 Bedside Glucose Comment Glu2: cleaned meter [facility] No Panel InformationOrdered By: Keena Kern on 08-11-2023 Estimated GFR (CKD-EPI) 53.472 mL/Min [facility] Creatinine Clearance (Chem 46.83 [facility] Phosphate [Mass/volume] in S cait or PlasmaOrdered By: Keena Kern on 08-11-2023 Phosphate [Mass/Vol] 2.4 mg/dL Low 2.5-4.5 [facility] Comment on above: Performed By: #### R ENAL ####[place] [id number] [facility] Platelet mean volume [Entiti c volume] in Blood by Automated countOrdered By: Frank Hudson on 08-11-2023 Platelet mean volume (Bld) [Entitic vol] 8.9 fL Normal 6.3-10.7 [facility] Comment on above: Result Comment: PERF ORMED BY:[address] [place], [place] [phone] MEDICAL DIRECTORARIE ROJO M.D. Performed By: #### C BCNO ####[place] [id number] [facility] Platelets [#/volume] in Bloo d by Automated countOrdered By: Frank Hudson on 08-11-2023 Platelets (Bld) [#/Vol] 168 10*3/uL Normal 150-450 [facility] Comment on above: Performed By: #### C BCNO ####[place] [id number] [facility] Potassium [Moles/volume] in Serum or PlasmaOrdered By: Keena Kern on 08-11-2023 Potassium [Moles/Vol] 3.7 mmol/L Normal 3.5-5.1 [facility] Comment on above: Performed By: #### R ENAL ####[address] [address] [facility] Renal Function Panelon 08-10 Albumin [Mass/Vol] 3.5 g/dL Normal 3.5-5.7 [facility] Comment on above: Performed By: #### R ENAL ####[place] [id number] [facility] Creatinine Clr Calc Pharmacy 46.83 Normal [facility] Comment on above: Result Comment: PERF ORMED BY:[address] [place], [place] [phone] MEDICAL DIRECTORARIE ROJO M.D. Performed By: #### R ENAL ####[address] [address] [facility] GFR/1.73 sq M.predicted MDRD (S/P/Bld) [Vol rate/Area] 53.472 mL/min/{1.73_m2} Normal [facility] Comment on above: Performed By: #### R ENAL ####[place] [id number] [facility] Serum or plasma anion gap de terminationOrdered By: Keena Kern on 08-11-2023 Anion gap [Moles/Vol] 9.6 mmol/L Normal 6.0-15.0 [facility] Comment on above: Performed By: #### R ENAL ####[address] [address] [facility] Sodium [Moles/volume] in Ser um or PlasmaOrdered By: Keena Kern on 08-11-2023 Sodium [Moles/Vol] 137 mmol/L Normal 136-145 [facility] Comment on above: Performed By: #### R ENAL ####[address] [address] [facility] Urea nitrogen [Mass/volume] in Serum or PlasmaOrdered By: Keena Kern on 08-11-2023 Urea nitrogen [Mass/Vol] 24 mg/dL Normal 7-25 [facility] Comment on above: Performed By: #### R ENAL ####[place] [id number] [facility] Alanine aminotransferase [En zymatic activity/volume] in Serum or PlasmaOrdered By: Luke Mcguire on 08-10-2023 ALT [Catalytic activity/Vol] 54 U/L High 7-52 [facility] Comment on above: Performed By: #### M G, RENAL, CMP ####[place] [id number] [facility] Alkaline phosphatase [Enzyma tic activity/volume] in Serum or PlasmaOrdered By: Luke Mcguire on 08-10-2023 ALP [Catalytic activity/Vol] 99 U/L Normal 34-104 [facility] Comment on above: Performed By: #### M G, RENAL, CMP ####[place] [id number] [facility] Aspartate aminotransferase [ Enzymatic activity/volume] in Serum or PlasmaOrdered By: Luke Mcguire on 08-10-2023 AST [Catalytic activity/Vol] 33 U/L Normal 13-39 [facility] Comment on above: Performed By: #### M G, RENAL, CMP ####[place] [id number] [facility] Automated basophil %Ordered By: Luke Mcguire on 08-10-2023 Basophils/100 WBC (Bld) 0.5 % Normal . [facility] Comment on above: Performed By: #### C BC ####[place] [id number] [facility] Automated basophil countOrde red By: Luke Mcguire on 08-10-2023 Basophils (Bld) [#/Vol] 0.0 10*3/uL Normal 0.0-0.2 [facility] Comment on above: Result Comment: PERF ORMED BY:[address] [place], [place] [phone] MEDICAL DIRECTORARIE ROJO M.D. Performed By: #### C BC ####[address] Automated blood monocyte cou ntOrdered By: Luke Mcguire on 08-10-2023 Monocytes (Bld) [#/Vol] 0.5 10*3/uL Normal 0.0-0.8 [facility] Comment on above: Performed By: #### C BC ####[address] Automated eosinophil %Ordere d By: Luke Mcguire on 08-10-2023 Eosinophils/100 WBC (Bld) 1.4 % Normal . [facility] Comment on above: Performed By: #### C BC ####[address] Automated eosinophil countOr dered By: Luke Mcguire on 08-10-2023 Eosinophils (Bld) [#/Vol] 0.1 10*3/uL Normal 0.0-0.45 [facility] Comment on above: Performed By: #### C BC ####[address] Automated monocyte %Ordered By: Luke Mcguire on 08-10-2023 Monocytes/100 WBC (Bld) 7.1 % Normal . [facility] Comment on above: Performed By: #### C BC ####[address] Automated neutrophil %Ordere d By: Luke Mcguire on 08-10-2023 Neutrophils/100 WBC (Bld) 67.7 % Normal . [facility] Comment on above: Performed By: #### C BC ####[address] Bilirubin.total [Mass/volume ] in Serum or PlasmaOrdered By: Luke Mcguire on 08-10-2023 Bilirubin [Mass/Vol] 0.5 mg/dL Normal 0.3-1.0 [facility] Comment on above: Performed By: #### M G, RENAL, CMP ####[address] chest wo conon 08-10-2023 CT chest wo con Normal [facility] Complete Blood Count Auto Di ffon 08-10-2023 Erythrocyte distribution width (RBC) [Ratio] 13.4 % Normal 11.9-15.3 [facility] Comment on above: Performed By: #### C BC ####[place] [id number] [facility] Hematocrit (Bld) [Volume fraction] 33.0 % Low 34.0-46.4 [facility] Comment on above: Performed By: #### C BC ####[place] [id number] [facility] Hemoglobin (Bld) [Mass/Vol] 10.8 g/dL Low 11.8-15.4 [facility] Comment on above: Performed By: #### C BC ####[place] [id number] [facility] MCH (RBC) [Entitic mass] 29.2 pg Normal 24.7-34.3 [facility] Comment on above: Performed By: #### C BC ####[place] [id number] [facility] MCV (RBC) [Entitic vol] 89.2 fL Normal 80-100 [facility] Comment on above: Performed By: #### C BC ####[place] [id number] [facility] Mean Corpuscular HGB Conc 32.8 g/dL Normal 32.0-35.0 [facility] Comment on above: Performed By: #### C BC ####[place] [id number] [facility] NRBC% 0.1 /100{WBC} Normal 0-0.5 The [facility] Comment on above: Performed By: #### C BC ####[place] [id number] [facility] Platelet mean volume (Bld) [Entitic vol] 8.6 fL Normal 6.3-10.7 The [facility] Comment on above: Performed By: #### C BC ####[address] [address] [facility] Platelets (Bld) [#/Vol] 203 10*3/uL Normal 150-450 The [facility] Comment on above: Performed By: #### C BC ####[place] [address] [place] [address] [facility] RBC (Bld) [#/Vol] 3.70 10*6/uL Normal 3.60-5.00 The [facility] Comment on above: Performed By: #### C BC ####[address] [address] [facility] Comprehensive Metabolic Pane lelia 08-10-2023 Albumin [Mass/Vol] 3.7 g/dL Normal 3.5-5.7 The [facility] Comment on above: Performed By: #### M G, RENAL, CMP ####[place] [id number] [facility] Anion gap [Moles/Vol] 10.4 mmol/L Normal 6.0-15.0 [facility] Comment on above: Performed By: #### M G, RENAL, CMP ####[place] [id number] [facility] Calcium [Mass/Vol] 10.1 mg/dL Normal 8.6-10.3 The [facility] Comment on above: Performed By: #### M G, RENAL, CMP ####[place] [id number] [facility] Chloride [Moles/Vol] 104 mmol/L Normal 98-107 The [facility] Comment on above: Performed By: #### M G, RENAL, CMP ####[place] [id number] [facility] CO2 [Moles/Vol] 27.1 mmol/L Normal 21.0-31.0 The [facility] Comment on above: Performed By: #### M G, RENAL, CMP ####[place] [id number] [facility] Creatinine [Mass/Vol] 1.06 mg/dL Normal 0.60-1.20 The [facility] Comment on above: Performed By: #### M G, RENAL, CMP ####[place] [address] [place] [address] [facility] Creatinine Clr Calc Pharmacy 48.94 Normal The [facility] Comment on above: Performed By: #### M G, RENAL, CMP ####[place] [address] [place] [address] [place] GFR/1.73 sq M.predicted MDRD (S/P/Bld) [Vol rate/Area] 56.514 mL/min/{1.73_m2} Normal The [facility] Comment on above: Performed By: #### M Fabiana, RENAL, CMP ####[place] [place] [address] [facility] Glucose [Mass/Vol] 80 mg/dL Normal 70-100 The [facility] Comment on above: Result Comment: [facility] Glucose Reference Range is dependent on time and content of last meal. Glucose of more than 200 mg/dL in a nonstressed, ambulatory subject supports the diagnosis of Diabetes Mellitus. ADA recommended reference range Performed By: #### M G, RENAL, CMP ####[address] [address] [facility] Potassium [Moles/Vol] 4.5 mmol/L Normal 3.5-5.1 The [facility] Comment on above: Performed By: #### M G, RENAL, CMP ####[address] [address] [facility] Sodium [Moles/Vol] 137 mmol/L Normal 136-145 The [facility] Comment on above: Performed By: #### M G, RENAL, CMP ####[place] [address] [place] [address] [facility] Urea nitrogen [Mass/Vol] 26 mg/dL High 7-25 The [facility] Comment on above: Performed By: #### M G, RENAL, CMP ####[place] [address] [place] [address] [facility] Glucose Poct Glucometerson 0 08-10-2023 Glucose [Mass/Vol] 95 mg/dL Normal The [facility] Comment on above: Result Comment: [facility] om Glucose Reference Range is dependent on time and content of last meal. Glucose of more than 200 mg/dL in a nonstressed, ambulatory subject supports the diagnosis of Diabetes Mellitus.PERFORMED BY:[place] [address] [place], [place] [phone] MEDICAL DIRECTORARIE ROJO M.D. Performed By: #### G LULS ####Point of Care testing, Commemt1 Glu2: Cleaned Meter Normal The [facility] Comment on above: Result Comment: PERF ORMED BY:[address] [place], [place] [phone] MEDICAL DIRECTORARIE ROJO M.D. Performed By: #### G LULS ####Point of Care testing, Glucose [Mass/Vol] 161 mg/dL Normal The [facility] Comment on above: Result Comment: [facility] om Glucose Reference Range is dependent on time and content of last meal. Glucose of more than 200 mg/dL in a nonstressed, ambulatory subject supports the diagnosis of Diabetes Mellitus. Performed By: #### G LULS ####Point of Care testing, Commemt1 Glu2: Cleaned Meter Normal The [facility] Comment on above: Result Comment: PERF ORMED BY:[place] [address] [place], [place] [phone] MEDICAL DIRECTORARIE ROJO M.D. Performed By: #### G LULS ####Point of Care testing, Glucose [Mass/Vol] 116 mg/dL Normal The [facility] Comment on above: Result Comment: [facility] om Glucose Reference Range is dependent on time and content of last meal. Glucose of more than 200 mg/dL in a nonstressed, ambulatory subject supports the diagnosis of Diabetes Mellitus. Performed By: #### G LULS ####Point of Care testing, Leukocytes [#/volume] in Blo od by Automated countOrdered By: Luke Mcguire on 08-10-2023 WBC (Bld) [#/Vol] 7.6 10*3/uL Normal 3.8-11.6 [facility] Comment on above: Performed By: #### C BC ####[address] [address] [facility] Lymphocytes [#/volume] in Bl ood by Automated countOrdered By: Luke Mcguire on 08-10-2023 Lymphocytes (Bld) [#/Vol] 1.8 10*3/uL Normal 1.00-4.8 [facility] Comment on above: Performed By: #### C BC ####[place] [id number] [facility] Lymphocytes/100 leukocytes i n Blood by Automated countOrdered By: Luke Mcguire on 08-10-2023 Lymphocytes/100 WBC (Bld) 23.3 % Normal . [facility] Comment on above: Performed By: #### C BC ####[place] [id number] [facility] Magnesium [Mass/volume] in S cait or PlasmaOrdered By: Luke Mcguire on 08-10-2023 Magnesium [Mass/Vol] 1.7 mg/dL Low 1.9-2.7 [facility] Comment on above: Result Comment: PERF ORMED BY:[address] [place], [place] [phone] MEDICAL DIRECTORARIE ROJO M.D. Performed By: #### M G, RENAL, CMP ####[place] [id number] [facility] Neutrophils [#/volume] in Bl ood by Automated countOrdered By: Luke Mcguire on 08-10-2023 Neutrophils (Bld) [#/Vol] 5.2 10*3/uL Normal 1.8-7.7 [facility] Comment on above: Performed By: #### C BC ####[place] [id number] [facility] Nucleated erythrocytes [Pres ence] in Blood by Automated countOrdered By: Luke Mcguire on 08-10-2023 Nucleated RBC Auto Ql (Bld) 0.1 /100{WBC} 0-0.5 [facility] Protein [Mass/volume] in Ser um or PlasmaOrdered By: Luke Mcguire on 08-10-2023 Protein [Mass/Vol] 6.3 g/dL Low 6.4-8.9 [facility] Comment on above: Performed By: #### M Fabiana, RENAL, CMP ####[address] Renal Function Panelon 08-09 Phosphate [Mass/Vol] 3.0 mg/dL Normal 2.5-4.5 The [facility] Comment on above: Performed By: #### M Fabiana, RENAL, CMP ####[address] Serum globulin measurement b y calculation (mass/volume)Ordered By: Luke Mcguire on 08-10-2023 Globulin (S) [Mass/Vol] 2.6 g/dL Normal [facility] Comment on above: Performed By: #### M Fabiana, RENAL, CMP ####[address] Serum or plasma albumin/glob ulin mass ratioOrdered By: Luke Mcguire on 08-10-2023 Albumin/Globulin [Mass ratio] 1.4 {ratio} Normal [facility] Comment on above: Performed By: #### M Fabiana, RENAL, CMP ####[address] Complete Blood Count Auto Di ffon 08-09-2023 Basophils (Bld) [#/Vol] 0.0 10*3/uL Normal 0.0-0.2 The [facility] Comment on above: Result Comment: PERF ORMED BY:[address] [place], [place] [phone] MEDICAL DIRECTORARIE ROJO M.D. Performed By: #### C BC ####[address] Basophils/100 WBC (Bld) 0.3 % Normal . [facility] Comment on above: Performed By: #### C BC ####[address] Eosinophils (Bld) [#/Vol] 0.1 10*3/uL Normal 0.0-0.45 The [facility] Comment on above: Performed By: #### C BC ####[address] Eosinophils/100 WBC (Bld) 0.7 % Normal . [facility] Comment on above: Performed By: #### C BC ####[address] Erythrocyte distribution width (RBC) [Ratio] 13.2 % Normal 11.9-15.3 The [facility] Comment on above: Performed By: #### C BC ####[address] Hematocrit (Bld) [Volume fraction] 31.1 % Low 34.0-46.4 [facility] Comment on above: Performed By: #### C BC ####[address] Hemoglobin (Bld) [Mass/Vol] 10.4 g/dL Low 11.8-15.4 The [facility] Comment on above: Performed By: #### C BC ####[address] Lymphocytes (Bld) [#/Vol] 1.5 10*3/uL Normal 1.00-4.8 The [facility] Comment on above: Performed By: #### C BC ####[address] Lymphocytes/100 WBC (Bld) 17.7 % Normal . [facility] Comment on above: Performed By: #### C BC ####[address] MCH (RBC) [Entitic mass] 29.7 pg Normal 24.7-34.3 The [facility] Comment on above: Performed By: #### C BC ####[address] MCV (RBC) [Entitic vol] 88.8 fL Normal 80-100 [facility] Comment on above: Performed By: #### C BC ####[address] Mean Corpuscular HGB Conc 33.5 g/dL Normal 32.0-35.0 The [facility] Comment on above: Performed By: #### C BC ####[address] Monocytes (Bld) [#/Vol] 0.5 10*3/uL Normal 0.0-0.8 [facility] Comment on above: Performed By: #### C BC ####[address] Monocytes/100 WBC (Bld) 6.3 % Normal . [facility] Comment on above: Performed By: #### C BC ####[address] Neutrophils (Bld) [#/Vol] 6.2 10*3/uL Normal 1.8-7.7 The [facility] Comment on above: Performed By: #### C BC ####[place] [id number] [facility] Neutrophils/100 WBC (Bld) 75.0 % Normal . The [facility] Comment on above: Performed By: #### C BC ####[address] NRBC% 0.0 /100{WBC} Normal 0-0.5 The [facility] Comment on above: Performed By: #### C BC ####[place] [id number] [facility] Platelet mean volume (Bld) [Entitic vol] 8.7 fL Normal 6.3-10.7 The [facility] Comment on above: Performed By: #### C BC ####[place] [id number] [facility] Platelets (Bld) [#/Vol] 222 10*3/uL Normal 150-450 [facility] Comment on above: Performed By: #### C BC ####[address] RBC (Bld) [#/Vol] 3.51 10*6/uL Low 3.60-5.00 The [facility] Comment on above: Performed By: #### C BC ####[place] [id number] [facility] WBC (Bld) [#/Vol] 8.2 10*3/uL Normal 3.8-11.6 The [facility] Comment on above: Performed By: #### C BC ####[address] Comprehensive Metabolic Pane lelia 08-09-2023 Albumin [Mass/Vol] 3.6 g/dL Normal 3.5-5.7 The [facility] Comment on above: Performed By: #### R ENAL, CMP, MG ####[address] Albumin/Globulin [Mass ratio] 1.6 {ratio} Normal The [facility] Comment on above: Performed By: #### R ENAL, CMP, MG ####[address] ALP [Catalytic activity/Vol] 100 U/L Normal 34-104 [facility] Comment on above: Performed By: #### R ENAL, CMP, MG ####[address] ALT [Catalytic activity/Vol] 46 U/L Normal 7-52 [facility] Comment on above: Performed By: #### R ENAL, CMP, MG ####[address] Anion gap [Moles/Vol] 11.3 mmol/L Normal 6.0-15.0 Th e [facility] Comment on above: Performed By: #### R ENAL, CMP, MG ####[address] AST [Catalytic activity/Vol] 25 U/L Normal 13-39 [facility] Comment on above: Performed By: #### R ENAL, CMP, MG ####[address] Bilirubin [Mass/Vol] 0.4 mg/dL Normal 0.3-1.0 The [facility] Comment on above: Performed By: #### R ENAL, CMP, MG ####[address] Calcium [Mass/Vol] 11.0 mg/dL High 8.6-10.3 The [facility] Comment on above: Performed By: #### R ENAL CMP, MG ####[address] Chloride [Moles/Vol] 102 mmol/L Normal 98-107 [facility] Comment on above: Performed By: #### R ENAL, CMP, MG ####[address] CO2 [Moles/Vol] 28.9 mmol/L Normal 21.0-31.0 The [facility] Comment on above: Performed By: #### R ENAL CMP, MG ####[address] Creatinine [Mass/Vol] 1.09 mg/dL Normal 0.60-1.20 The [facility] Comment on above: Performed By: #### R ENAL, CMP, MG ####[address] Creatinine Clr Calc Pharmacy 47.63 Normal The [facility] Comment on above: Performed By: #### R ENAL, CMP, MG ####[address] GFR/1.73 sq M.predicted MDRD (S/P/Bld) [Vol rate/Area] 54.652 mL/min/{1.73_m2} Normal The [facility] Comment on above: Performed By: #### R ENAL, CMP, MG ####[address] [place] [address] [place] Globulin (S) [Mass/Vol] 2.3 g/dL Normal The [facility] Comment on above: Performed By: #### Jose SERRANO CMP, MG ####[address] Glucose [Mass/Vol] 83 mg/dL Normal 70-100 The [facility] Comment on above: Result Comment: [facility] om Glucose Reference Range is dependent on time and content of last meal. Glucose of more than 200 mg/dL in a nonstressed, ambulatory subject supports the diagnosis of Diabetes Mellitus. ADA recommended reference range Performed By: #### R ALLIE SERRANO, MG ####[address] Potassium [Moles/Vol] 4.2 mmol/L Normal 3.5-5.1 The [facility] Comment on above: Performed By: #### Jose SERRANO CMP, MG ####[address] Protein [Mass/Vol] 5.9 g/dL Low 6.4-8.9 The [facility] Comment on above: Performed By: #### Jose SERRANO CMP, MG ####[place] [id number] [facility] Sodium [Moles/Vol] 138 mmol/L Normal 136-145 [facility] Comment on above: Performed By: #### Jose SERRANO CMP, MG ####[place] [id number] [facility] Urea nitrogen [Mass/Vol] 35 mg/dL High 7-25 The [facility] Comment on above: Performed By: #### R ALLIE SERRANO, MG ####[place] [id number] [facility] Glucose Poct Glucometerson 0 08-09-2023 Glucose [Mass/Vol] 114 mg/dL Normal The [facility] Comment on above: Result Comment: [facility] om Glucose Reference Range is dependent on time and content of last meal. Glucose of more than 200 mg/dL in a nonstressed, ambulatory subject supports the diagnosis of Diabetes Mellitus.PERFORMED BY:[address] [address] [address] [place], [place] [phone] MEDICAL DIRECTORARIE ROJO M.D. Performed By: #### G LULS ####Point of Care testing, Glucose [Mass/Vol] 129 mg/dL Normal [facility] Comment on above: Result Comment: [facility] Glucose Reference Range is dependent on time and content of last meal. Glucose of more than 200 mg/dL in a nonstressed, ambulatory subject supports the diagnosis of Diabetes Mellitus.PERFORMED BY:[address] HERNÁNDEZNORTH [place], [place] [phone] MEDICAL DIRECTORARIE ROJO M.D. Performed By: #### G LULS ####Point of Care testing, Glucose [Mass/Vol] 92 mg/dL Normal The [facility] Comment on above: Result Comment: [facility] Glucose Reference Range is dependent on time and content of last meal. Glucose of more than 200 mg/dL in a nonstressed, ambulatory subject supports the diagnosis of Diabetes Mellitus.PERFORMED BY:[address] [place], [place] [phone] MEDICAL BIANCA ROJO M.D. Performed By: #### G LULS ####Point of Care testing, Glucose [Mass/Vol] 82 mg/dL Normal The [facility] Comment on above: Result Comment: [facility] Glucose Reference Range is dependent on time and content of last meal. Glucose of more than 200 mg/dL in a nonstressed, ambulatory subject supports the diagnosis of Diabetes Mellitus.PERFORMED BY:[address] [place], [place] [phone] MEDICAL BIANCA ROJO M.D. Performed By: #### G LULS ####Point of Care testing, Magnesiumon 08-09-2023 Magnesium [Mass/Vol] 2.0 mg/dL Normal 1.9-2.7 The [facility] Comment on above: Result Comment: PERF ORMED BY:[address], [place] [phone] MEDICAL DIRECTORARIE ROJO M.D. Performed By: #### R ALLIE SERRANO, MG ####[place] [id number] [facility] Renal Function Panelon 08-08 Phosphate [Mass/Vol] 4.1 mg/dL Normal 2.5-4.5 The [facility] Comment on above: Performed By: #### R ALLIE SERRANO, MG ####[place] [id number] [facility] Complete Blood Count Auto Di ffon 08-08-2023 Basophils (Bld) [#/Vol] 0.0 10*3/uL Normal 0.0-0.2 The [facility] Comment on above: Result Comment: PERF ORMED BY:[address] HERNÁNDEZNOR[place], [place] [phone] MEDICAL DIRECTORARIE ROJO M.D. Performed By: #### C BC ####[address] Basophils/100 WBC (Bld) 0.3 % Normal . [facility] Comment on above: Performed By: #### C BC ####[address] Eosinophils (Bld) [#/Vol] 0.0 10*3/uL Normal 0.0-0.45 [facility] Comment on above: Performed By: #### C BC ####[place] [id number] [facility] Eosinophils/100 WBC (Bld) 0.4 % Normal . [facility] Comment on above: Performed By: #### C BC ####[address] Erythrocyte distribution width (RBC) [Ratio] 13.3 % Normal 11.9-15.3 [facility] Comment on above: Performed By: #### C BC ####[place] [id number] [place] Hematocrit (Bld) [Volume fraction] 30.9 % Low 34.0-46.4 The [facility] Comment on above: Performed By: #### C BC ####[address] Hemoglobin (Bld) [Mass/Vol] 10.4 g/dL Low 11.8-15.4 The [facility] Comment on above: Performed By: #### C BC ####[address] Lymphocytes (Bld) [#/Vol] 1.0 10*3/uL Normal 1.00-4.8 [facility] Comment on above: Performed By: #### C BC ####[address] Lymphocytes/100 WBC (Bld) 13.7 % Normal . The [facility] Comment on above: Performed By: #### C BC ####[address] MCH (RBC) [Entitic mass] 30.0 pg Normal 24.7-34.3 [facility] Comment on above: Performed By: #### C BC ####[address] MCV (RBC) [Entitic vol] 88.5 fL Normal 80-100 The [facility] Comment on above: Performed By: #### C BC ####[address] Mean Corpuscular HGB Conc 33.9 g/dL Normal 32.0-35.0 [facility] Comment on above: Performed By: #### C BC ####[address] Monocytes (Bld) [#/Vol] 0.4 10*3/uL Normal 0.0-0.8 [facility] Comment on above: Performed By: #### C BC ####[address] Monocytes/100 WBC (Bld) 5.3 % Normal . [facility] Comment on above: Performed By: #### C BC ####[address] [address] [facility] Neutrophils (Bld) [#/Vol] 6.0 10*3/uL Normal 1.8-7.7 [facility] Comment on above: Performed By: #### C BC ####[address] [address] [facility] Neutrophils/100 WBC (Bld) 80.3 % Normal . [facility] Comment on above: Performed By: #### C BC ####[address] [address] [facility] NRBC% 0.0 /100{WBC} Normal 0-0.5 The [facility] Comment on above: Performed By: #### C BC ####[address] [address] [facility] Platelet mean volume (Bld) [Entitic vol] 8.2 fL Normal 6.3-10.7 The [facility] Comment on above: Performed By: #### C BC ####[address] [address] [facility] Platelets (Bld) [#/Vol] 238 10*3/uL Normal 150-450 [facility] Comment on above: Performed By: #### C BC ####[address] [address] [facility] RBC (Bld) [#/Vol] 3.49 10*6/uL Low 3.60-5.00 The [facility] Comment on above: Performed By: #### C BC ####[address] [address] [facility] WBC (Bld) [#/Vol] 7.4 10*3/uL Normal 3.8-11.6 [facility] Comment on above: Performed By: #### C BC ####[address] [address] [facility] Comprehensive Metabolic Pane lelia 08-08-2023 Albumin [Mass/Vol] 3.5 g/dL Normal 3.5-5.7 The [facility] Comment on above: Performed By: #### Maliha Jung RENAL, CMP ####[address] Albumin/Globulin [Mass ratio] 1.5 {ratio} Normal [facility] Comment on above: Performed By: #### M Fabiana, RENAL, CMP ####[place] [id number] [facility] ALP [Catalytic activity/Vol] 104 U/L Normal 34-104 [facility] Comment on above: Performed By: #### Maliha Jung RENAL, CMP ####[address] ALT [Catalytic activity/Vol] 50 U/L Normal 7-52 [facility] Comment on above: Performed By: #### Maliha Jugn RENAL, CMP ####[address] Anion gap [Moles/Vol] 8.4 mmol/L Normal 6.0-15.0 [facility] Comment on above: Performed By: #### Maliha Jung RENAL, CMP ####[address] AST [Catalytic activity/Vol] 25 U/L Normal 13-39 [facility] Comment on above: Performed By: #### Maliha Jung, RENAL, CMP ####[place] [id number] [facility] Bilirubin [Mass/Vol] 0.4 mg/dL Normal 0.3-1.0 [facility] Comment on above: Performed By: #### Maliha Jung RENAL, CMP ####[place] [id number] [facility] Calcium [Mass/Vol] 11.7 mg/dL High 8.6-10.3 [facility] Comment on above: Performed By: #### Maliha Jung, RENAL, CMP ####[place] [id number] [facility] Chloride [Moles/Vol] 99 mmol/L Normal 98-107 [facility] Comment on above: Performed By: #### M Fabiana, RENAL, CMP ####[address] CO2 [Moles/Vol] 31.9 mmol/L High 21.0-31.0 The [facility] Comment on above: Performed By: #### M Fabiana, RENAL, CMP ####[address] Creatinine [Mass/Vol] 1.53 mg/dL High 0.60-1.20 [facility] Comment on above: Performed By: #### M Fabiana RENAL, CMP ####[address] Creatinine Clr Calc Pharmacy 35.12 Normal [facility] Comment on above: Performed By: #### M Fabiana RENAL, CMP ####[address] GFR/1.73 sq M.predicted MDRD (S/P/Bld) [Vol rate/Area] 36.382 mL/min/{1.73_m2} Normal The [facility] Comment on above: Performed By: #### M Fabiana RENAL, CMP ####[address] Globulin (S) [Mass/Vol] 2.4 g/dL Normal The [facility] Comment on above: Performed By: #### M Fabiana, RENAL, CMP ####[address] Glucose [Mass/Vol] 89 mg/dL Normal 70-100 The [facility] Comment on above: Result Comment: [facility] Glucose Reference Range is dependent on time and content of last meal. Glucose of more than 200 mg/dL in a nonstressed, ambulatory subject supports the diagnosis of Diabetes Mellitus. ADA recommended reference range Performed By: #### M G, RENAL, CMP ####[address] Potassium [Moles/Vol] 4.3 mmol/L Normal 3.5-5.1 [facility] Comment on above: Performed By: #### M G, RENAL, CMP ####[id number] [place] [address] [facility] Protein [Mass/Vol] 5.9 g/dL Low 6.4-8.9 The [facility] Comment on above: Performed By: #### M G, RENAL, CMP ####[address] [place] [address] [facility] Sodium [Moles/Vol] 135 mmol/L Low 136-145 The [facility] Comment on above: Performed By: #### M G, RENAL, CMP ####[id number] [facility] Urea nitrogen [Mass/Vol] 43 mg/dL High 7-25 [facility] Comment on above: Performed By: #### M Fabiana, RENAL, CMP ####[address] [address] [facility] Glucose Poct Glucometerson 0 08-08-2023 Glucose [Mass/Vol] 138 mg/dL Normal The [facility] Comment on above: Result Comment: [facility] om Glucose Reference Range is dependent on time and content of last meal. Glucose of more than 200 mg/dL in a nonstressed, ambulatory subject supports the diagnosis of Diabetes Mellitus.PERFORMED BY:[address] [address] [place], [place] [phone] MEDICAL DIRECTORARIE ROJO M.D. Performed By: #### G LULS ####Point of Care testing, Commemt1 Glu2: Cleaned Meter Normal The [facility] Comment on above: Result Comment: PERF ORMED BY:[address] [place], [place] [phone] MEDICAL DIRECTORARIE ROJO M.D. Performed By: #### G LULS ####Point of Care testing, Glucose [Mass/Vol] 129 mg/dL Normal The [facility] Comment on above: Result Comment: [facility] om Glucose Reference Range is dependent on time and content of last meal. Glucose of more than 200 mg/dL in a nonstressed, ambulatory subject supports the diagnosis of Diabetes Mellitus. Performed By: #### G LULS ####Point of Care testing, Commemt1 Glu2: Cleaned Meter Normal The [facility] Comment on above: Result Comment: PERF ORMED BY:[address]Cecy[place], [place] [phone] MEDICAL DIRECTORARIE ROJO M.D. Performed By: #### G LULS ####Point of Care testing, Glucose [Mass/Vol] 111 mg/dL Normal The [facility] Comment on above: Result Comment: [facility] om Glucose Reference Range is dependent on time and content of last meal. Glucose of more than 200 mg/dL in a nonstressed, ambulatory subject supports the diagnosis of Diabetes Mellitus. Performed By: #### G LULS ####Point of Care testing, Glucose [Mass/Vol] 84 mg/dL Normal The [facility] Comment on above: Result Comment: [facility] om Glucose Reference Range is dependent on time and content of last meal. Glucose of more than 200 mg/dL in a nonstressed, ambulatory subject supports the diagnosis of Diabetes Mellitus.PERFORMED BY:[address] [place]YÓscarCecyROBERT[place], [place] [phone] MEDICAL DIRECTORARIE ROJO M.D. Performed By: #### G LULS ####Point of Care testing, Magnesiumon 08-08-2023 Magnesium [Mass/Vol] 1.7 mg/dL Low 1.9-2.7 The [facility] Comment on above: Result Comment: PERF ORMED BY:[address] [place], [place] [phone] MEDICAL DIRECTORARIE ROJO M.D. Performed By: #### M G, RENAL, CMP ####[facility] [address] [facility] [place] [address] [facility] Parathyroid Hormone Related Pron 08-08-2023 Parathyroid Hormone Related Pr <2.0 Normal . [facility] Comment on above: Result Comment: [...] discordant, please contact the laboratory. Performed at: [facility] [address] [place], [place] [id number] Information Security Analyst: Eleuterio Tsai MD, Phone: [phone] BY:[facility] [place], [place] [phone] MEDICAL DIRECTORARIE ROJO M.D. Performed By: #### P THRP ####[facility] , Renal Function Panelon 08-07 Phosphate [Mass/Vol] 4.0 mg/dL Normal 2.5-4.5 [facility] Comment on above: Performed By: #### M G, RENAL, CMP ####[facility] [address] [place] [address] [facility] Serum or plasma parathyroid hormone related peptide (PTHrP) measurement (moles/volumeOrdered By: Keena Kern on 08-08-2023 Parathyrin related protein [Moles/Vol] <2.0 pmol/L . [facility] Comment on above: This test was develo [...] contact the laboratory.Performed at: [facility] [address] [place], [place] [id number] Director: Eleuterio Tsai MD, Phone: [phone] Aerobic Cultureon 08-07-2023 Aerobic Culture Normal The [facility] Comment on above: Performed By: #### A ERC, GS ####[address] [address] [facility] Bilirubin Test strip Ql (U)O rdered By: Frank Hudson on 08-07-2023 Bilirubin Ql (U) Negative Negative [facility] COVID CepheidOrdered By: Alvin Hudson on 08-07-2023 SARS-CoV-2 (COVID-19) Ab IA Ql Negative Negative [facility] Comment on above: This is a duplicate Cepheid Xpert Xpress CoV-2/Flu/RSV Plus RNA by RT-PCR result to be used for statistical tracking purpose only. SARS-CoV-2 (COVID-19) RNA MITCHELL+probe Ql (Unsp spec) Normal [facility] Comment on above: Performed By: #### C OVID19 FLU RSV, CEPHEID NEG, UA ####[id number] [facility] Cepheid COVID PCR Negativeon 08-07-2023 SARS-CoV-2 (COVID-19) RNA MITCHELL+probe Ql (Unsp spec) Negative Normal Negative [facility] Comment on above: Result Comment: This is a duplicate Cepheid Xpert Xpress CoV-2/Flu/RSV Plus RNA by RT-PCR result to be used for statistical tracking purpose only.PERFORMED BY:[address] [place], [place] [phone] MEDICAL BIANCA ROJO M.D. Performed By: #### C OVID19 FLU RSV, CEPHEID NEG, UA ####[id number] [facility] Color of Urine by AutoOrdere d By: Frank Hudson on 08-07-2023 Color (U) Yellow Normal Yellow [facility] Comment on above: Order Comment: Name Collection Type:: Voided Performed By: #### C OVID19 FLU RSV, CEPHEID NEG, UA ####[id number] [facility] Complete Blood Count Auto Di ffon 08-07-2023 Basophils (Bld) [#/Vol] 0.0 10*3/uL Normal 0.0-0.2 [facility] Comment on above: Result Comment: PERF ORMED BY:[address] [place], [place] [phone] MEDICAL DIRECTORARIE ROJO M.D. Performed By: #### C BC, CMP, MG ####[address] Basophils/100 WBC (Bld) 0.5 % Normal . [facility] Comment on above: Performed By: #### C BC, CMP, MG ####[address] Eosinophils (Bld) [#/Vol] 0.0 10*3/uL Normal 0.0-0.45 [facility] Comment on above: Performed By: #### C BC, CMP, MG ####[address] Eosinophils/100 WBC (Bld) 0.5 % Normal . [facility] Comment on above: Performed By: #### C BC, CMP, MG ####[address] Erythrocyte distribution width (RBC) [Ratio] 13.3 % Normal 11.9-15.3 [facility] Comment on above: Performed By: #### C BC, CMP, MG ####[address] Hematocrit (Bld) [Volume fraction] 34.1 % Normal 34.0-46.4 [facility] Comment on above: Performed By: #### C BC, CMP, MG ####[address] Hemoglobin (Bld) [Mass/Vol] 11.3 g/dL Low 11.8-15.4 [facility] Comment on above: Performed By: #### C BC, CMP, MG ####[address] Lymphocytes (Bld) [#/Vol] 0.7 10*3/uL Low 1.00-4.8 [facility] Comment on above: Performed By: #### C BC, CMP, MG ####[address] Lymphocytes/100 WBC (Bld) 7.6 % Normal . [facility] Comment on above: Performed By: #### C BC, CMP, MG ####[address] MCH (RBC) [Entitic mass] 29.3 pg Normal 24.7-34.3 [facility] Comment on above: Performed By: #### C BC, CMP, MG ####[address] MCV (RBC) [Entitic vol] 88.3 fL Normal 80-100 [facility] Comment on above: Performed By: #### C BC, CMP, MG ####[address] Mean Corpuscular HGB Conc 33.2 g/dL Normal 32.0-35.0 [facility] Comment on above: Performed By: #### C BC, CMP, MG ####[address] Monocytes (Bld) [#/Vol] 0.5 10*3/uL Normal 0.0-0.8 [facility] Comment on above: Performed By: #### C BC, CMP, MG ####[address] Monocytes/100 WBC (Bld) 5.4 % Normal . [facility] Comment on above: Performed By: #### C BC, CMP, MG ####[address] Neutrophils (Bld) [#/Vol] 8.4 10*3/uL High 1.8-7.7 [facility] Comment on above: Performed By: #### C BC, CMP, MG ####[address] [place] [id number] [facility] Neutrophils/100 WBC (Bld) 86.0 % Normal . [facility] Comment on above: Performed By: #### C BC, CMP, MG ####[address] [place] [address] [facility] NRBC% 0.0 /100{WBC} Normal 0-0.5 The [facility] Comment on above: Performed By: #### C BC, CMP, MG ####[address] [place] [address] [facility] Platelet mean volume (Bld) [Entitic vol] 8.1 fL Normal 6.3-10.7 The [facility] Comment on above: Performed By: #### C BC, CMP, MG ####[id number] [facility] Platelets (Bld) [#/Vol] 302 10*3/uL Normal 150-450 [facility] Comment on above: Performed By: #### C BC, CMP, MG ####[id number] [facility] RBC (Bld) [#/Vol] 3.86 10*6/uL Normal 3.60-5.00 The [facility] Comment on above: Performed By: #### C BC, CMP, MG ####[address] [address] [facility] WBC (Bld) [#/Vol] 9.8 10*3/uL Normal 3.8-11.6 [facility] Comment on above: Performed By: #### C BC, CMP, MG ####[id number] [facility] Comprehensive Metabolic Pane lelia 08-07-2023 Albumin [Mass/Vol] 3.4 g/dL Low 3.5-5.7 [facility] Comment on above: Performed By: #### C MP, TSH3 wRFLX ####[id number] [facility] Albumin/Globulin [Mass ratio] 1.4 {ratio} Normal [facility] Comment on above: Performed By: #### C DIANNE, TSH3 wRFLX ####[address] ALP [Catalytic activity/Vol] 103 U/L Normal 34-104 [facility] Comment on above: Performed By: #### C DIANNE, TSH3 wRFLX ####[address] ALT [Catalytic activity/Vol] 50 U/L Normal 7-52 [facility] Comment on above: Performed By: #### C DIANNE, TSH3 wRFLX ####[address] Anion gap [Moles/Vol] 8.7 mmol/L Normal 6.0-15.0 [facility] Comment on above: Performed By: #### C DIANNE, TSH3 wRFLX ####[address] AST [Catalytic activity/Vol] 25 U/L Normal 13-39 [facility] Comment on above: Performed By: #### C DIANNE, TSH3 wRFLX ####[address] Bilirubin [Mass/Vol] 0.4 mg/dL Normal 0.3-1.0 [facility] Comment on above: Performed By: #### C DIANNE, TSH3 wRFLX ####[address] Calcium [Mass/Vol] 12.1 mg/dL High 8.6-10.3 [facility] Comment on above: Performed By: #### C DIANNE, TSH3 wRFLX ####[address] Chloride [Moles/Vol] 99 mmol/L Normal 98-107 [facility] Comment on above: Performed By: #### C DIANNE, TSH3 wRFLX ####[address] CO2 [Moles/Vol] 31.2 mmol/L High 21.0-31.0 The [facility] Comment on above: Performed By: #### C DIANNE, TSH3 wRFLX ####[id number] [facility] Creatinine [Mass/Vol] 1.59 mg/dL High 0.60-1.20 [facility] Comment on above: Performed By: #### C DIANNE, TSH3 wRFLX ####[id number] [facility] Creatinine Clr Calc Pharmacy 33.79 Normal [facility] Comment on above: Result Comment: PERF ORMED BY:[address] [place], [place] [phone] MEDICAL DIRECTORARIE ROJO M.D. Performed By: #### C DIANNE, TSH3 wRFLX ####[id number] [facility] GFR/1.73 sq M.predicted MDRD (S/P/Bld) [Vol rate/Area] 34.741 mL/min/{1.73_m2} Normal The [facility] Comment on above: Performed By: #### C DIANNE TSH3 wRFLX ####[id number] [facility] Globulin (S) [Mass/Vol] 2.5 g/dL Normal [facility] Comment on above: Performed By: #### C DIANNE, TSH3 wRFLX ####[id number] [facility] Glucose [Mass/Vol] 72 mg/dL Normal 70-100 [facility] Comment on above: Result Comment: [facility] Glucose Reference Range is dependent on time and content of last meal. Glucose of more than 200 mg/dL in a nonstressed, ambulatory subject supports the diagnosis of Diabetes Mellitus. ADA recommended reference range Performed By: #### C DIANNE, TSH3 wRFLX ####[id number] [facility] Potassium [Moles/Vol] 3.9 mmol/L Normal 3.5-5.1 [facility] Comment on above: Performed By: #### C DIANNE, TSH3 wRFLX ####[address] Protein [Mass/Vol] 5.9 g/dL Low 6.4-8.9 [facility] Comment on above: Performed By: #### C DIANNE, TSH3 wRFLX ####[address] Sodium [Moles/Vol] 135 mmol/L Low 136-145 [facility] Comment on above: Performed By: #### C DIANNE, TSH3 wRFLX ####[address] Urea nitrogen [Mass/Vol] 52 mg/dL High 7-25 [facility] Comment on above: Performed By: #### C DIANNE, TSH3 wRFLX ####[address] Albumin [Mass/Vol] 3.4 g/dL Low 3.5-5.7 [facility] Comment on above: Performed By: #### C BC, CMP, MG ####[address] Albumin/Globulin [Mass ratio] 1.4 {ratio} Normal [facility] Comment on above: Performed By: #### C BC, CMP, MG ####[address] ALP [Catalytic activity/Vol] 109 U/L High 34-104 [facility] Comment on above: Performed By: #### C BC, CMP, MG ####[address] [id number] [facility] ALT [Catalytic activity/Vol] 55 U/L High 7-52 [facility] Comment on above: Performed By: #### C BC, CMP, MG ####[address] Anion gap [Moles/Vol] 10.4 mmol/L Normal 6.0-15.0 Th e [facility] Comment on above: Performed By: #### C BC, CMP, MG ####[address] AST [Catalytic activity/Vol] 26 U/L Normal 13-39 [facility] Comment on above: Performed By: #### C BC, CMP, MG ####[address] Bilirubin [Mass/Vol] 0.4 mg/dL Normal 0.3-1.0 [facility] Comment on above: Performed By: #### C BC, CMP, MG ####[address] Calcium [Mass/Vol] 12.6 mg/dL High 8.6-10.3 [facility] Comment on above: Performed By: #### C BC, CMP, MG ####[address] Chloride [Moles/Vol] 98 mmol/L Normal 98-107 [facility] Comment on above: Performed By: #### C BC, CMP, MG ####[address] CO2 [Moles/Vol] 29.1 mmol/L Normal 21.0-31.0 The [facility] Comment on above: Performed By: #### C BC, CMP, MG ####[address] Creatinine [Mass/Vol] 1.74 mg/dL High 0.60-1.20 [facility] Comment on above: Performed By: #### C BC, CMP, MG ####[address] Creatinine Clr Calc Pharmacy 29.61 Normal [facility] Comment on above: Performed By: #### C BC, CMP, MG ####[address] GFR/1.73 sq M.predicted MDRD (S/P/Bld) [Vol rate/Area] 31.179 mL/min/{1.73_m2} Normal The [facility] Comment on above: Performed By: #### C BC, CMP, MG ####[address] Globulin (S) [Mass/Vol] 2.5 g/dL Normal [facility] Comment on above: Performed By: #### C BC, CMP, MG ####[address] Glucose [Mass/Vol] 97 mg/dL Normal 70-100 [facility] Comment on above: Result Comment: [facility] Glucose Reference Range is dependent on time and content of last meal. Glucose of more than 200 mg/dL in a nonstressed, ambulatory subject supports the diagnosis of Diabetes Mellitus. ADA recommended reference range Performed By: #### C BC, CMP, MG ####[address] Potassium [Moles/Vol] 4.5 mmol/L Normal 3.5-5.1 [facility] Comment on above: Performed By: #### C BC, CMP, MG ####[address] Protein [Mass/Vol] 5.9 g/dL Low 6.4-8.9 [facility] Comment on above: Performed By: #### C BC, CMP, MG ####[address] Sodium [Moles/Vol] 133 mmol/L Low 136-145 [facility] Comment on above: Performed By: #### C BC, CMP, MG ####[place] [id number] [facility] Urea nitrogen [Mass/Vol] 57 mg/dL High 7-25 [facility] Comment on above: Performed By: #### C BC, CMP, MG ####[address] Creatinine [Mass/volume] in UrineOrdered By: Obaydah Daromar on 08-07-2023 Creatinine (U) [Mass/Vol] 46.00 mg/dL [facility] Comment on above: No reference range e stablished Creatinine, Urine (Random)on 08-07-2023 Creatinine, Urine (Random) 46.00 mg/dL Normal [facility] Comment on above: Result Comment: No r eference range established Performed By: #### U CRERosa, DAREN ####[facility] [address] [place] [address] [facility] Glucose Poct Glucometerson 0 08-07-2023 Glucose [Mass/Vol] 153 mg/dL Normal [facility] Comment on above: Result Comment: [facility] Glucose Reference Range is dependent on time and content of last meal. Glucose of more than 200 mg/dL in a nonstressed, ambulatory subject supports the diagnosis of Diabetes Mellitus.PERFORMED BY:[address] [place], [place] [phone] MEDICAL DIRECTORARIE ROJO M.D. Performed By: #### G LULS ####Point of Care testing, Glucose [Mass/Vol] 153 mg/dL Normal [facility] Comment on above: Result Comment: [facility] Glucose Reference Range is dependent on time and content of last meal. Glucose of more than 200 mg/dL in a nonstressed, ambulatory subject supports the diagnosis of Diabetes Mellitus.PERFORMED BY:[address] [place], [place] [phone] MEDICAL BIANCA ROJO M.D. Performed By: #### G LULS ####Point of Care testing, Glucose [Mass/Vol] 105 mg/dL Normal [facility] Comment on above: Result Comment: [facility] Glucose Reference Range is dependent on time and content of last meal. Glucose of more than 200 mg/dL in a nonstressed, ambulatory subject supports the diagnosis of Diabetes Mellitus.PERFORMED BY:[address] [place], [place] [phone] MEDICAL DIRECTORARIE ROJO M.D. Performed By: #### G LULS ####Point of Care testing, Glucose [Mass/Vol] 116 mg/dL Normal [facility] Comment on above: Result Comment: [facility] Glucose Reference Range is dependent on time and content of last meal. Glucose of more than 200 mg/dL in a nonstressed, ambulatory subject supports the diagnosis of Diabetes Mellitus.PERFORMED BY:[address], [place] [phone] MEDICAL DIRECTORARIE ROJO M.D. Performed By: #### G LULS ####Point of Care testing, Gram Stainon 08-07-2023 Microscopic observation Gram stain Nom (Unsp spec) Gram Stain Result 4+ Gram Positive Bacilli 2+ White Blood Cells 1+ Epithelial Cells PERFORMED BY: [facility] [address] [place] [address] PATHOLOGIST ADVERTISING LAYOUT WORKER ARIE ROJO M.D. Normal [facility] Comment on above: Performed By: #### A ERC, GS ####[address] [address] [facility] Gram stain for investigation of transfusion reactionOrdered By: Frank Hudson on 08-07-2023 Microscopic observation Gram stain Nom (Unsp spec) Corynebacterium striatum group Abnormal [facility] Ketones Auto test strip (U) [Mass/Vol]Ordered By: Frank Freemanomar on 08-07-2023 Ketones (U) [Mass/Vol] Negative Negative [facility] Magnesiumon 08-07-2023 Magnesium [Mass/Vol] 1.7 mg/dL Low 1.9-2.7 [facility] Comment on above: Result Comment: PERF ORMED BY:[address] [place], [place] [phone] MEDICAL DIRECTORARIE ROJO M.D. Performed By: #### C BC, CMP, MG ####[address] [address] [facility] Nitrite Test strip Ql (U)Ord ered By: Frank Hudson on 08-07-2023 Nitrite Ql (U) Negative Negative [facility] Parathyrin.intact [Mass/volu me] in Serum or PlasmaOrdered By: Obdarryldagood Freemanomar on 08-07-2023 Parathyrin.intact [Mass/Vol] 3.6 pg/mL Low [facility] Parathyroid Hormone Intacton 08-07-2023 Parathyroid Hormone Intact 3.6 pg/mL Low [facility] Comment on above: Result Comment: PERF ORMED BY:[address] [address] [address] [place], [place] [phone] MEDICAL DIRECTORARIE ROJO M.D. Performed By: #### P TH, [id number] ####[address] [address] [facility] Protein Auto test strip (U) [Mass/Vol]Ordered By: Frank Hudson on 08-07-2023 Protein (U) [Mass/Vol] Negative Negative [facility] Sodium [Moles/volume] in Uri neOrdered By: Frank Hudson on 08-07-2023 Sodium (U) [Moles/Vol] 47 mmol/L Normal [facility] Comment on above: No reference range e stablished Result Comment: No r eference range establishedPERFORMED BY:[address] [address] [place] [place], [place] [phone] MEDICAL DIRECTORARIE ROJO M.D. Performed By: #### U CREA, DAREN ####[address] [address] [facility] Specific gravity Auto test s trip (U) [Rel density]Ordered By: darrylformerly [facility] PeteKartoonArt on 08-07-2023 Specific gravity (U) [Rel density] 1.012 1.001-1.03 0 [facility] Thyroid Stim Hormone w/Rflxo n 08-07-2023 Thyroid Stim Hormone w/Rflx 1.97 u[iU]/mL Normal 0.45-5.33 [facility] Comment on above: Result Comment: PERF ORMED BY:[address] [place], [place] [phone] MEDICAL DIRECTORARIE ROJO M.D. Performed By: #### C MP, TSH3 wRFLX ####[address] Thyrotropin [Units/volume] i n Serum or PlasmaOrdered By: Frank Hudson on 08-07-2023 TSH Qn 1.97 m[IU]/L 0.45-5.33 [facility] US renal BIon 08-07-2023 US renal BI Normal [facility] Urinalysison 08-07-2023 Appearance (U) Clear Normal Clear [facility] Comment on above: Order Comment: Name Collection Type:: Voided Performed By: #### C OVID19 FLU RSV, CEPHEID NEG, UA ####[address] Bilirubin,Urine Negative Normal Negative [facility] Comment on above: Order Comment: Name Collection Type:: Voided Performed By: #### C OVID19 FLU RSV, CEPHEID NEG, UA ####[address] Glucose Ql (U) Normal Normal Normal [facility] Comment on above: Order Comment: Name Collection Type:: Voided Performed By: #### C OVID19 FLU RSV, CEPHEID NEG, UA ####[address] Ketones Ql (U) Negative Normal Negative [facility] Comment on above: Order Comment: Name Collection Type:: Voided Performed By: #### C OVID19 FLU RSV, CEPHEID NEG, UA ####[place] [id number] [facility] Leukocyte esterase Test strip Ql (U) Negative Normal Negative [facility] Comment on above: Order Comment: Name Collection Type:: Voided Performed By: #### C OVID19 FLU RSV, CEPHEID NEG, UA ####[place] [id number] [facility] Nitrite,Urine Negative Normal Negative [facility] Comment on above: Order Comment: Name Collection Type:: Voided Performed By: #### C OVID19 FLU RSV, CEPHEID NEG, UA ####[place] [id number] [facility] Occult Blood,Urine Negative Normal Negative [facility] Comment on above: Order Comment: Name Collection Type:: Voided Result Comment: PERF ORMED BY:[address] [place], [place] [phone] MEDICAL DIRECTORARIE ROJO M.D. Performed By: #### C OVID19 FLU RSV, CEPHEID NEG, UA ####[address] Protein,Urine Negative Normal Negative [facility] Comment on above: Order Comment: Name Collection Type:: Voided Performed By: #### C OVID19 FLU RSV, CEPHEID NEG, UA ####[address] Specificy [place],Urine 1.012 Normal 1.001-1.03 0 [facility] Comment on above: Order Comment: Name Collection Type:: Voided Performed By: #### C OVID19 FLU RSV, CEPHEID NEG, UA ####[place] [id number] [facility] Urobilinogen,Urine Normal Normal Normal [facility] Comment on above: Order Comment: Name Collection Type:: Voided Performed By: #### C OVID19 FLU RSV, CEPHEID NEG, UA ####[place] [id number] [facility] Urine clarity by refractomet ry automatedOrdered By: Frank Hudson on 08-07-2023 Clarity Refractometry automated (U) Clear Clear [facility] Urine glucose measurement by automated test strip (mass/volume)Ordered By: Frank Hudson on 08-07-2023 Glucose Auto test strip (U) [Mass/Vol] Normal mg/dL Normal [facility] Urine hemoglobin detection b y automated test stripOrdered By: Frank Handyr on 08-07-2023 Hemoglobin Auto test strip Ql (U) Negative Negative [facility] Urine leukocyte esterase det ection by automated test stripOrdered By: Frank Handyr on 08-07-2023 Leukocyte esterase Auto test strip Ql (U) Negative Negative [facility] Urine pH measurement by auto mated test stripOrdered By: rFank Handyr on 08-07-2023 pH (U) 6.5 [pH] Normal 5.0-9.0 [facility] Comment on above: Order Comment: Name Collection Type:: Voided Performed By: #### C OVID19 FLU RSV, CEPHEID NEG, UA ####[id number] [place] [address] [facility] Urobilinogen Auto test strip (U) [Mass/Vol]Ordered By: Frank Handyr on 08-07-2023 Urobilinogen (U) [Mass/Vol] Normal mg/dL Normal [facility] Vitamin D 25 Hydroxy Totalon 08-07-2023 Vitamin D 25 Hydroxy Total 97.1 ng/mL Normal 30-100 [facility] Comment on above: Result Comment: ADRI MIN D STATUS 25(OH)VITAMIN D RANGE (ng/mL) Deficient <20 Insufficient 20 to <30 Sufficient 30 to 100 Reference: Frannie MF,Oumar NC, Radha MCGOWAN, et al. Evaluation,treatment, and prevention of vitamin D deficiency; an Endocrine Society clinical practice guideline. JCEM. 2010; 96(7):1911-30.PERFORMED BY:[facility] [place], [place] [phone] MEDICAL DIRECTORARIE ROJO M.D. Performed By: #### P TH, [id number] ####[address] [address] [facility] Vitamin D+Metabolites [Mass/ volume] in Serum or PlasmaOrdered By: Frank Hudson on 08-07-2023 Vitamin D+Metabolites [Mass/Vol] 97.1 ng/mL 30-100 [facility] Comment on above: VITAMIN D STATUS 25( [place])VITAMIN D RANGE (ng/mL) Deficient <20 Insufficient 20 to <30Sufficient 30 to 100Reference: Frannie MF,Oumar NC, Radha MCGOWAN, et al. Evaluation,treatment, and prevention of vitamin D deficiency; an Endocrine Society clinical practice guideline. JCEM. 2010; 96(7):1911-30. XR chest 1V portableon 08-06 XR chest 1V portable Normal [facility] Basic Metabolic Panelon 07-06 Creatinine Clr Calc Pharmacy 53.01 Normal [facility] Comment on above: Performed By: #### C BCJODY, BMP, MG ####[place] [place] [address] [facility] GFR/1.73 sq M.predicted MDRD (S/P/Bld) [Vol rate/Area] mL/min/{1.73_m2} Normal [facility] Comment on above: Performed By: #### C BCJODY, BMP, MG ####[address] [address] [facility] Calcium [Mass/volume] in Ser um or PlasmaOrdered By: Jaylan Child on 07-30-2023 Calcium [Mass/Vol] 9.0 mg/dL Normal 8.6-10.3 [facility] Comment on above: Performed By: #### C BCJODY, BMP, MG ####[address] [address] [facility] Capillary blood glucose dilia urement by glucometer (mass/volume)Ordered By: Jaylan Child on 07-30-2023 Glucose [Mass/Vol] 124 mg/dL Normal [facility] Comment on above: Random Glucose Refer ence Range is dependent on time and content of last meal. Glucose of more than 200 mg/dL in a nonstressed, ambulatory subject supports the diagnosis of Diabetes Mellitus. Result Comment: [facility] om Glucose Reference Range is dependent on time and content of last meal. Glucose of more than 200 mg/dL in a nonstressed, ambulatory subject supports the diagnosis of Diabetes Mellitus.PERFORMED BY:[address] [place], [place] [phone] MEDICAL DIRECTORARIE ROJO M.D. Performed By: #### G DOMINIC ####Point of Care testing, Carbon dioxide, total [Moles /volume] in Serum or PlasmaOrdered By: Jaylan Child on 07-30-2023 CO2 [Moles/Vol] 37.0 mmol/L High 21.0-31.0 [facility] Comment on above: Performed By: #### C BCNO, BMP, MG ####[place] [address] [place] [id number] [facility] Chloride [Moles/volume] in S cait or PlasmaOrdered By: Jaylan Child on 07-30-2023 Chloride [Moles/Vol] 95 mmol/L Low 98-107 [facility] Comment on above: Performed By: #### C BCNO, BMP, MG ####[place] [id number] [facility] Creatinine [Mass/volume] in Serum or PlasmaOrdered By: Jaylan Child on 07-30-2023 Creatinine [Mass/Vol] 0.97 mg/dL Normal 0.60-1.20 [facility] Comment on above: Performed By: #### C BCNO, BMP, MG ####[place] [id number] [facility] Erythrocyte distribution wid th [Ratio] by Automated countOrdered By: Jaylan Child on 07-30-2023 Erythrocyte distribution width (RBC) [Ratio] 13.3 % Normal 11.9-15.3 [facility] Comment on above: Performed By: #### C BCNO, BMP, MG ####[place] [id number] [facility] Erythrocytes [#/volume] in B lood by Automated countOrdered By: Jaylan Child on 07-30-2023 RBC (Bld) [#/Vol] 3.60 10*6/uL Normal 3.60-5.00 [facility] Comment on above: Performed By: #### C BCNO, BMP, MG ####[address] [place] [address] [facility] Glucose Poct Glucometerson 0 07-30-2023 Glucose [Mass/Vol] 110 mg/dL Normal [facility] Comment on above: Result Comment: [facility] Glucose Reference Range is dependent on time and content of last meal. Glucose of more than 200 mg/dL in a nonstressed, ambulatory subject supports the diagnosis of Diabetes Mellitus.PERFORMED BY:[address] [place], [place] [phone] MEDICAL DIRECTORARIE ROJO M.D. Performed By: #### G DOMINIC ####Point of Care testing, Glucose [Mass/volume] in Ser um or PlasmaOrdered By: Jaylan Child on 07-30-2023 Glucose [Mass/Vol] 103 mg/dL High 70-100 [facility] Comment on above: ADA recommended refe rence rangeRandom Glucose Reference Range is dependent on time and content of last meal. Glucose of more than 200 mg/dL in a nonstressed, ambulatory subject supports the diagnosis of Diabetes Mellitus. Result Comment: [facility] Glucose Reference Range is dependent on time and content of last meal. Glucose of more than 200 mg/dL in a nonstressed, ambulatory subject supports the diagnosis of Diabetes Mellitus. ADA recommended reference range Performed By: #### C SARAH PARSON, MG ####[place] [address] [place] [id number] [facility] Hematocrit [Volume Fraction] of Blood by Automated countOrdered By: Jaylan Child on 07-30-2023 Hematocrit (Bld) [Volume fraction] 31.7 % Low 34.0-46.4 [facility] Comment on above: Performed By: #### C SARAH PARSON, MG ####[place] [id number] [facility] Hemoglobin [Mass/volume] in BloodOrdered By: Jaylan Child on 07-30-2023 Hemoglobin (Bld) [Mass/Vol] 10.7 g/dL Low 11.8-15.4 [facility] Comment on above: Performed By: #### C BLANK BMP, MG ####[address] Hemogram CBC Without Diffon 07-30-2023 Mean Corpuscular HGB Conc 33.9 g/dL Normal 32.0-35.0 [facility] Comment on above: Performed By: #### C BLANK, BMP, MG ####[address] WBC (Bld) [#/Vol] 5.3 10*3/uL Normal 3.8-11.6 [facility] Comment on above: Performed By: #### C BLANK, BMP, MG ####[address] Leukocytes [#/volume] correc hugh for nucleated erythrocytes in Blood by Automated counOrdered By: Jaylan Child on 07-30-2023 WBC corrected for nucl RBC Auto (Bld) [#/Vol] 5.3 10*3/uL 3.8-11.6 [facility] MCH [Entitic mass] by Automa hugh countOrdered By: Jaylan Child on 07-30-2023 MCH (RBC) [Entitic mass] 29.8 pg Normal 24.7-34.3 [facility] Comment on above: Performed By: #### C SARAH PARSON, MG ####[address] MCHC Auto (RBC) [Mass/Vol]Or dered By: Jaylan Child on 07-30-2023 MCHC (RBC) [Mass/Vol] 33.9 g/dL 32.0-35.0 [facility] MCV [Entitic volume] by Auto mated countOrdered By: Jaylan Child on 07-30-2023 MCV (RBC) [Entitic vol] 88.1 fL Normal 80-100 [facility] Comment on above: Performed By: #### C BCJODY, BMP, MG ####[address] Magnesium [Mass/volume] in S cait or PlasmaOrdered By: Jaylan Child on 07-30-2023 Magnesium [Mass/Vol] 1.4 mg/dL Low 1.9-2.7 [facility] Comment on above: Result Comment: PERF ORMED BY:[place] [address] [place], [place] [phone] MEDICAL DIRECTORARIE ROJO M.D. Performed By: #### C BCNO, BMP, MG ####[address] [place] [place] [address] [facility] No Panel InformationOrdered By: Jaylan Child on 07-30-2023 Estimated GFR (CKD-EPI) > 60.0 mL/Min [facility] Creatinine Clearance (Chem 53.01 [facility] Platelet mean volume [Entiti c volume] in Blood by Automated countOrdered By: Jaylan Child on 07-30-2023 Platelet mean volume (Bld) [Entitic vol] 8.3 fL Normal 6.3-10.7 [facility] Comment on above: Result Comment: PERF ORMED BY:[address] [place], [place] [phone] MEDICAL DIRECTORARIE ROJO M.D. Performed By: #### C BCNO, BMP, MG ####[place] [id number] [facility] Platelets [#/volume] in Bloo d by Automated countOrdered By: Jaylan Child on 07-30-2023 Platelets (Bld) [#/Vol] 158 10*3/uL Normal 150-450 [facility] Comment on above: Performed By: #### C BCNO, BMP, MG ####[place] [id number] [facility] Potassium [Moles/volume] in Serum or PlasmaOrdered By: Jaylan Child on 07-30-2023 Potassium [Moles/Vol] 3.8 mmol/L Normal 3.5-5.1 [facility] Comment on above: Performed By: #### C BCNO, BMP, MG ####[place] [id number] [facility] Serum or plasma anion gap de terminationOrdered By: Jaylan Child on 07-30-2023 Anion gap [Moles/Vol] 8.8 mmol/L Normal 6.0-15.0 [facility] Comment on above: Performed By: #### C BLANK BMP, MG ####[address] [place] [place] [address] [facility] Sodium [Moles/volume] in Ser um or PlasmaOrdered By: Jaylan Child on 07-30-2023 Sodium [Moles/Vol] 137 mmol/L Normal 136-145 [facility] Comment on above: Performed By: #### C BLANK, SARAH, MG ####[address] [address] [facility] Urea nitrogen [Mass/volume] in Serum or PlasmaOrdered By: Jaylan Child on 07-30-2023 Urea nitrogen [Mass/Vol] 24 mg/dL Normal 7-25 [facility] Comment on above: Performed By: #### C SARAH PARSON, MG ####[address] [address] [facility] BNP ser/plasOrdered By: Ari Aaorn on 07-29-2023 Natriuretic peptide B (Bld) [Mass/Vol] 253.0 pg/mL High 5-100 [facility] Comment on above: Result Comment: PERF ORMED BY:[address] [place], [place] [phone] MEDICAL DIRECTORARIE ROJO M.D. Performed By: #### B PROCEDURES RN ####[address] [address] [facility] Basic Metabolic Panelon 07-06 Anion gap [Moles/Vol] 12.3 mmol/L Normal 6.0-15.0 e [facility] Comment on above: Performed By: #### M G BMP ####[address] [address] [facility] Calcium [Mass/Vol] 9.5 mg/dL Normal 8.6-10.3 [facility] Comment on above: Performed By: #### M G, BMP ####[address] [place] [place] [address] [facility] Chloride [Moles/Vol] 97 mmol/L Low 98-107 [facility] Comment on above: Performed By: #### M G, BMP ####[address] [place] [place] [address] [facility] CO2 [Moles/Vol] 32.4 mmol/L High 21.0-31.0 [facility] Comment on above: Performed By: #### M G, BMP ####[address] [place] [place] [address] [facility] Creatinine [Mass/Vol] 1.08 mg/dL Normal 0.60-1.20 [facility] Comment on above: Performed By: #### Maliha G, BMP ####[address] [place] [place] [address] [facility] Creatinine Clr Calc Pharmacy 47.61 Normal [facility] Comment on above: Performed By: #### Maliha G, BMP ####[address] [address] [facility] GFR/1.73 sq M.predicted MDRD (S/P/Bld) [Vol rate/Area] 55.259 mL/min/{1.73_m2} Normal [facility] Comment on above: Performed By: #### Maliha G, BMP ####[address] [address] [facility] Glucose [Mass/Vol] 98 mg/dL Normal 70-100 [facility] Comment on above: Result Comment: [facility] Glucose Reference Range is dependent on time and content of last meal. Glucose of more than 200 mg/dL in a nonstressed, ambulatory subject supports the diagnosis of Diabetes Mellitus. ADA recommended reference range Performed By: #### M G, BMP ####[facility] [place] [address] [facility] Potassium [Moles/Vol] 4.7 mmol/L Normal 3.5-5.1 [facility] Comment on above: Performed By: #### Maliha G, BMP ####[facility] [place] [address] [facility] Sodium [Moles/Vol] 137 mmol/L Normal 136-145 [facility] Comment on above: Performed By: #### M Fabiana, BMP ####[facility] [place] [address] [facility] Urea nitrogen [Mass/Vol] 21 mg/dL Normal 7-25 [facility] Comment on above: Performed By: #### M Fabiana, BMP ####[facility] [place] [address] [facility] Glucose Poct Glucometerson 0 - Glucose [Mass/Vol] 179 mg/dL Normal [facility] Comment on above: Result Comment: [facility] Glucose Reference Range is dependent on time and content of last meal. Glucose of more than 200 mg/dL in a nonstressed, ambulatory subject supports the diagnosis of Diabetes Mellitus.PERFORMED BY:[address] [place], [place] [phone] MEDICAL BIANCA ROJO M.D. Performed By: #### G LULS ####Point of Care testing, Glucose [Mass/Vol] 157 mg/dL Normal [facility] Comment on above: Result Comment: [facility] Glucose Reference Range is dependent on time and content of last meal. Glucose of more than 200 mg/dL in a nonstressed, ambulatory subject supports the diagnosis of Diabetes Mellitus.PERFORMED BY:[address] [place], [place] [phone] MEDICAL BIANCA ROJO M.D. Performed By: #### G LULS ####Point of Care testing, Glucose [Mass/Vol] 91 mg/dL Normal [facility] Comment on above: Result Comment: [facility] Glucose Reference Range is dependent on time and content of last meal. Glucose of more than 200 mg/dL in a nonstressed, ambulatory subject supports the diagnosis of Diabetes Mellitus.PERFORMED BY:[address] [place], [place] [phone] MEDICAL BIANCA ROJO M.D. Performed By: #### G DOMINIC ####Point of Care testing, Glucose [Mass/Vol] 75 mg/dL Normal [facility] Comment on above: Result Comment: [facility] Glucose Reference Range is dependent on time and content of last meal. Glucose of more than 200 mg/dL in a nonstressed, ambulatory subject supports the diagnosis of Diabetes Mellitus.PERFORMED BY:[address] [place], [place] [phone] MEDICAL DIRECTORARIE ROJO M.D. Performed By: #### G DOMINIC ####Point of Care testing, Hemogram CBC Without Diffon 07-29-2023 Erythrocyte distribution width (RBC) [Ratio] 13.6 % Normal 11.9-15.3 [facility] Comment on above: Performed By: #### C BCNO ####[place] [id number] [facility] Hematocrit (Bld) [Volume fraction] 36.9 % Normal 34.0-46.4 [facility] Comment on above: Performed By: #### C BCNO ####[address] [address] [facility] Hemoglobin (Bld) [Mass/Vol] 12.4 g/dL Normal 11.8-15.4 [facility] Comment on above: Performed By: #### C BCNO ####[place] [id number] [facility] MCH (RBC) [Entitic mass] 29.9 pg Normal 24.7-34.3 [facility] Comment on above: Performed By: #### C BCNO ####[address] [address] [facility] MCV (RBC) [Entitic vol] 89.2 fL Normal 80-100 [facility] Comment on above: Performed By: #### C BCNO ####[address] [address] [facility] Mean Corpuscular HGB Conc 33.5 g/dL Normal 32.0-35.0 [facility] Comment on above: Performed By: #### C BCNO ####[address] [address] [facility] Platelet mean volume (Bld) [Entitic vol] 9.2 fL Normal 6.3-10.7 [facility] Comment on above: Result Comment: PERF ORMED BY:[address] [address] [place], [place] [phone] MEDICAL DIRECTORARIE ROJO M.D. Performed By: #### C BCNO ####[address] [address] [facility] Platelets (Bld) [#/Vol] 155 10*3/uL Normal 150-450 [facility] Comment on above: Performed By: #### C BCNO ####[address] [address] [facility] RBC (Bld) [#/Vol] 4.14 10*6/uL Normal 3.60-5.00 [facility] Comment on above: Performed By: #### C BCNO ####[address] [address] [facility] WBC (Bld) [#/Vol] 6.3 10*3/uL Normal 3.8-11.6 [facility] Comment on above: Performed By: #### C BCNO ####[address] [address] [facility] Magnesiumon 07-29-2023 Magnesium [Mass/Vol] 1.6 mg/dL Low 1.9-2.7 [facility] Comment on above: Result Comment: PERF ORMED BY:[address] [address] [place] [phone] MEDICAL DIRECTORARIE ROJO M.D. Performed By: #### M G, BMP ####[address] [address] [facility] XR chest 1V portableon 07-28 XR chest 1V portable Normal [facility] Basic Metabolic Panelon 07-06 Anion gap [Moles/Vol] 13.8 mmol/L Normal 6.0-15.0 [facility] Comment on above: Performed By: #### B MP, MG ####[address] Calcium [Mass/Vol] 9.1 mg/dL Normal 8.6-10.3 [facility] Comment on above: Performed By: #### B MP, MG ####[address] Chloride [Moles/Vol] 100 mmol/L Normal 98-107 [facility] Comment on above: Performed By: #### B MP, MG ####[address] CO2 [Moles/Vol] 30.4 mmol/L Normal 21.0-31.0 [facility] Comment on above: Performed By: #### B MP, MG ####[address] Creatinine [Mass/Vol] 1.32 mg/dL High 0.60-1.20 [facility] Comment on above: Performed By: #### B MP, MG ####[address] Creatinine Clr Calc Pharmacy 39.18 Normal [facility] Comment on above: Performed By: #### B MP, MG ####[address] GFR/1.73 sq M.predicted MDRD (S/P/Bld) [Vol rate/Area] 43.434 mL/min/{1.73_m2} Normal [facility] Comment on above: Performed By: #### B MP, MG ####[address] Glucose [Mass/Vol] 114 mg/dL High 70-100 [facility] Comment on above: Result Comment: [facility] Glucose Reference Range is dependent on time and content of last meal. Glucose of more than 200 mg/dL in a nonstressed, ambulatory subject supports the diagnosis of Diabetes Mellitus. ADA recommended reference range Performed By: #### B MP, MG ####[address] [place] [address] [facility] Potassium [Moles/Vol] 5.2 mmol/L High 3.5-5.1 [facility] Comment on above: Performed By: #### B MP, MG ####[address] [place] [address] [facility] Sodium [Moles/Vol] 139 mmol/L Normal 136-145 [facility] Comment on above: Performed By: #### B MP, MG ####[address] [place] [address] [facility] Urea nitrogen [Mass/Vol] 32 mg/dL High 7-25 [facility] Comment on above: Performed By: #### B MP, MG ####[address] [address] [facility] Glucose Poct Glucometerson 0 07-28-2023 Glucose [Mass/Vol] 138 mg/dL Normal [facility] Comment on above: Result Comment: [facility] Glucose Reference Range is dependent on time and content of last meal. Glucose of more than 200 mg/dL in a nonstressed, ambulatory subject supports the diagnosis of Diabetes Mellitus.PERFORMED BY:[address] [address] [place], [place] [phone] MEDICAL DIRECTORARIE ROJO M.D. Performed By: #### G LULS ####Point of Care testing, Commemt1 Glu2: Cleaned Meter Normal [facility] Comment on above: Result Comment: PERF ORMED BY:[address] [address] [place], [place] [phone] MEDICAL DIRECTORARIE ROJO M.D. Performed By: #### G LULS ####Point of Care testing, Glucose [Mass/Vol] 99 mg/dL Normal [facility] Comment on above: Result Comment: [place] om Glucose Reference Range is dependent on time and content of last meal. Glucose of more than 200 mg/dL in a nonstressed, ambulatory subject supports the diagnosis of Diabetes Mellitus. Performed By: #### G LULS ####Point of Care testing, Commemt1 Glu2: Cleaned Meter Normal The [facility] Comment on above: Result Comment: PERF ORMED BY:[place] [address] [place] AUDREYÓscarCecyROBERTDANIELS, [place] [phone] MEDICAL DIRECTORARIE ROJO M.D. Performed By: #### G LULS ####Point of Care testing, Glucose [Mass/Vol] 127 mg/dL Normal [facility] Comment on above: Result Comment: [place] om Glucose Reference Range is dependent on time and content of last meal. Glucose of more than 200 mg/dL in a nonstressed, ambulatory subject supports the diagnosis of Diabetes Mellitus. Performed By: #### G LULS ####Point of Care testing, Commemt1 Glu2: Cleaned Meter Normal The [facility] Comment on above: Result Comment: PERF ORMED BY:[address] [place], [place] [phone] MEDICAL DIRECTORARIE ROJO M.D. Performed By: #### G LULS ####Point of Care testing, Glucose [Mass/Vol] 106 mg/dL Normal The [facility] Comment on above: Result Comment: [place] om Glucose Reference Range is dependent on time and content of last meal. Glucose of more than 200 mg/dL in a nonstressed, ambulatory subject supports the diagnosis of Diabetes Mellitus. Performed By: #### G LULS ####Point of Care testing, Magnesiumon 07-28-2023 Magnesium [Mass/Vol] 1.7 mg/dL Low 1.9-2.7 The [facility] Comment on above: Result Comment: PERF ORMED BY:[address] [place], [place] [phone] MEDICAL DIRECTORARIE ROJO M.D. Performed By: #### B MP, MG ####[address] [address] [facility] No Panel InformationOrdered By: Jaylan Child on 07-28-2023 Bedside Glucose Comment Glu2: cleaned meter [facility] Activated partial thrombopla stin time (aPTT) in platelet poor plasma by coagulation aOrdered By: Saturnino Cortés on 07-27-2023 aPTT Coag (PPP) [Time] 25.9 s 25.1-36.5 [facility] Comment on above: A hematocrit value g reater than 55% may lead to inaccurate results in coagulation testing. Patients having hematocrit values >55% require a special collection tube for coagulation studies. Please contact the laboratory at [phone] for redraw instructions. Automated basophil %Ordered By: Saturnino Cortés on 07-27-2023 Basophils/100 WBC (Bld) 0.3 % Normal . [facility] Comment on above: Performed By: #### P TT, CBC, PT ####[address] Automated basophil countOrde red By: Saturnino Cortés on 07-27-2023 Basophils (Bld) [#/Vol] 0.0 10*3/uL Normal 0.0-0.2 [facility] Comment on above: Result Comment: PERF ORMED BY:[address] [place], [place] [phone] MEDICAL DIRECTORARIE ROJO M.D. Performed By: #### P TT, CBC, PT ####[address] Automated blood monocyte cou ntOrdered By: Saturnino Cortés on 07-27-2023 Monocytes (Bld) [#/Vol] 0.4 10*3/uL Normal 0.0-0.8 [facility] Comment on above: Performed By: #### P TT, CBC, PT ####[address] Automated eosinophil %Ordere d By: Saturnino Cortés on 07-27-2023 Eosinophils/100 WBC (Bld) 0.3 % Normal . [facility] Comment on above: Performed By: #### P TT, CBC, PT ####[place] [address] [place] Automated eosinophil countOr dered By: Saturnino Cortés on 07-27-2023 Eosinophils (Bld) [#/Vol] 0.0 10*3/uL Normal 0.0-0.45 [facility] Comment on above: Performed By: #### P TT, CBC, PT ####[address] Automated monocyte %Ordered By: Saturnino Cortés on 07-27-2023 Monocytes/100 WBC (Bld) 7.0 % Normal . [facility] Comment on above: Performed By: #### P TT, CBC, PT ####[address] Automated neutrophil %Ordere d By: Saturnino Cortés on 07-27-2023 Neutrophils/100 WBC (Bld) 80.6 % Normal . [facility] Comment on above: Performed By: #### P TT, CBC, PT ####[address] Basic Metabolic Panelon 07-06 Anion gap [Moles/Vol] 5.8 mmol/L Low 6.0-15.0 [facility] Comment on above: Performed By: #### M Fabiana, BMP ####[address] Calcium [Mass/Vol] 8.1 mg/dL Low 8.6-10.3 [facility] Comment on above: Performed By: #### M G, BMP ####[address] Chloride [Moles/Vol] 102 mmol/L Normal 98-107 [facility] Comment on above: Performed By: #### M G, BMP ####[address] CO2 [Moles/Vol] 32.6 mmol/L High 21.0-31.0 The [facility] Comment on above: Performed By: #### M G, BMP ####[place] [address] [place] Creatinine [Mass/Vol] 1.52 mg/dL High 0.60-1.20 [facility] Comment on above: Performed By: #### Maliha Jung, BMP ####[place] [id number] [facility] Creatinine Clr Calc Pharmacy 32.81 Normal [facility] Comment on above: Performed By: #### Maliha Jung, BMP ####[place] [id number] [place] [id number] [facility] GFR/1.73 sq M.predicted MDRD (S/P/Bld) [Vol rate/Area] 36.669 mL/min/{1.73_m2} Normal The [facility] Comment on above: Performed By: #### Maliha Jung, BMP ####[address] Glucose [Mass/Vol] 132 mg/dL High 70-100 [facility] Comment on above: Result Comment: [facility] Glucose Reference Range is dependent on time and content of last meal. Glucose of more than 200 mg/dL in a nonstressed, ambulatory subject supports the diagnosis of Diabetes Mellitus. ADA recommended reference range Performed By: #### Maliha Jung, BMP ####[address] Potassium [Moles/Vol] 4.4 mmol/L Normal 3.5-5.1 [facility] Comment on above: Performed By: #### Maliha Jung, BMP ####[address] Sodium [Moles/Vol] 136 mmol/L Normal 136-145 [facility] Comment on above: Performed By: #### Maliha Jung, BMP ####[place] [id number] [facility] Urea nitrogen [Mass/Vol] 41 mg/dL High 7-25 [facility] Comment on above: Performed By: #### Maliha Jung, BMP ####[place] [id number] [facility] Complete Blood Count Auto Di ffon 07-27-2023 Erythrocyte distribution width (RBC) [Ratio] 13.8 % Normal 11.9-15.3 [facility] Comment on above: Performed By: #### P TT, CBC, PT ####[address] Hematocrit (Bld) [Volume fraction] 32.7 % Low 34.0-46.4 [facility] Comment on above: Performed By: #### P TT, CBC, PT ####[address] Hemoglobin (Bld) [Mass/Vol] 11.2 g/dL Low 11.8-15.4 [facility] Comment on above: Performed By: #### P TT, CBC, PT ####[address] MCH (RBC) [Entitic mass] 30.1 pg Normal 24.7-34.3 [facility] Comment on above: Performed By: #### P TT, CBC, PT ####[address] MCV (RBC) [Entitic vol] 88.1 fL Normal 80-100 [facility] Comment on above: Performed By: #### P TT, CBC, PT ####[address] Mean Corpuscular HGB Conc 34.1 g/dL Normal 32.0-35.0 [facility] Comment on above: Performed By: #### P TT, CBC, PT ####[address] NRBC% 0.1 /100{WBC} Normal 0-0.5 The [facility] Comment on above: Performed By: #### P TT, CBC, PT ####[address] Platelet mean volume (Bld) [Entitic vol] 9.1 fL Normal 6.3-10.7 The [facility] Comment on above: Performed By: #### P TT, CBC, PT ####[facility] [place] [address] [facility] Platelets (Bld) [#/Vol] 119 10*3/uL Low 150-450 [facility] Comment on above: Performed By: #### P TT, CBC, PT ####[place] [address] [place] [address] [facility] RBC (Bld) [#/Vol] 3.71 10*6/uL Normal 3.60-5.00 [facility] Comment on above: Performed By: #### P TT, CBC, PT ####[address] [address] [facility] Glucose Poct Glucometerson 0 07-27-2023 Glucose [Mass/Vol] 155 mg/dL Normal [facility] Comment on above: Result Comment: [facility] Glucose Reference Range is dependent on time and content of last meal. Glucose of more than 200 mg/dL in a nonstressed, ambulatory subject supports the diagnosis of Diabetes Mellitus.PERFORMED BY:[address] [place], [place] [phone] MEDICAL DIRECTORARIE ROJO M.D. Performed By: #### G LULS ####Point of Care testing, Glucose [Mass/Vol] 119 mg/dL Normal [facility] Comment on above: Result Comment: [facility] Glucose Reference Range is dependent on time and content of last meal. Glucose of more than 200 mg/dL in a nonstressed, ambulatory subject supports the diagnosis of Diabetes Mellitus.PERFORMED BY:[place] [address] [place], [place] [phone] MEDICAL BIANCA ROJO M.D. Performed By: #### G LULS ####Point of Care testing, Commemt1 Glu2: Cleaned Meter Normal [facility] Comment on above: Result Comment: PERF ORMED BY:[address] [address] [address] ERNANDEZROBERTDANIELS, [place] [phone] MEDICAL DIRECTORARIE ROJO M.D. Performed By: #### G LULS ####Point of Care testing, Glucose [Mass/Vol] 132 mg/dL Normal [facility] Comment on above: Result Comment: [place] om Glucose Reference Range is dependent on time and content of last meal. Glucose of more than 200 mg/dL in a nonstressed, ambulatory subject supports the diagnosis of Diabetes Mellitus. Performed By: #### G LULS ####Point of Care testing, Commemt1 Glu2: Cleaned Meter Normal [facility] Comment on above: Result Comment: PERF ORMED BY:[facility] [place] [place], [place] [phone] MEDICAL DIRECTORARIE ROJO M.D. Performed By: #### G LULS ####Point of Care testing, Glucose [Mass/Vol] 113 mg/dL Normal [facility] Comment on above: Result Comment: [place] om Glucose Reference Range is dependent on time and content of last meal. Glucose of more than 200 mg/dL in a nonstressed, ambulatory subject supports the diagnosis of Diabetes Mellitus. Performed By: #### G LULS ####Point of Care testing, INR in Platelet poor plasma by Coagulation assayOrdered By: Saturnino Cortés on 07-27-2023 INR Coag (PPP) [Relative time] 0.9 {INR} Normal [facility] Comment on above: INR Therapeutic Rang e [...] Performed By: #### P TT, CBC, PT ####[facility] [address] [place] [id number] [facility] Leukocytes [#/volume] in Blo od by Automated countOrdered By: Saturnino Cortés on 07-27-2023 WBC (Bld) [#/Vol] 6.1 10*3/uL Normal 3.8-11.6 [facility] Comment on above: Performed By: #### P TT, CBC, PT ####[address] Lymphocytes [#/volume] in Bl ood by Automated countOrdered By: Saturnino [place]land on 07-27-2023 Lymphocytes (Bld) [#/Vol] 0.7 10*3/uL Low 1.00-4.8 [facility] Comment on above: Performed By: #### P TT, CBC, PT ####[address] Lymphocytes/100 leukocytes i n Blood by Automated countOrdered By: Sautrnino Cortés on 07-27-2023 Lymphocytes/100 WBC (Bld) 11.8 % Normal . [facility] Comment on above: Performed By: #### P TT, CBC, PT ####[address] Magnesiumon 07-27-2023 Magnesium [Mass/Vol] 1.9 mg/dL Normal 1.9-2.7 [facility] Comment on above: Result Comment: PERF ORMED BY:[address] [place], [place] [phone] MEDICAL BIANCA ROJO M.D. Performed By: #### M G, BMP ####[address] Neutrophils [#/volume] in Bl ood by Automated countOrdered By: Saturnino Cortés on 07-27-2023 Neutrophils (Bld) [#/Vol] 4.9 10*3/uL Normal 1.8-7.7 [facility] Comment on above: Performed By: #### P TT, CBC, PT ####[address] Nucleated erythrocytes [Pres ence] in Blood by Automated countOrdered By: Saturnino Cortés on 07-27-2023 Nucleated RBC Auto Ql (Bld) 0.1 /100{WBC} 0-0.5 [facility] Partial Thromboplastin Timeo n 07-27-2023 aPTT Coag (Bld) [Time] 25.9 s Normal 25.1-36.5 Th e [facility] Comment on above: Result Comment: A he matocrit value greater than 55% may lead to inaccurate results in coagulation testing. Patients having hematocrit values >55% require a special collection tube for coagulation studies. Please contact the laboratory at [phone] for redraw instructions.PERFORMED BY:[place] [address] [place], [place] [phone] MEDICAL DIRECTORARIE ROJO M.D. Performed By: #### P TT, CBC, PT ####[facility] [address] [place] [address] [facility] Prothrombin time (PT)Ordered By: Saturnino Cortés on 07-27-2023 PT Coag (PPP) [Time] 10.7 s Normal 9.0-12.9 [facility] Comment on above: A hematocrit value g reater than 55% may lead to inaccurate results in coagulation testing. Patients having hematocrit values >55% require a special collection tube for coagulation studies. Please contact the laboratory at [phone] for redraw instructions. Result Comment: A he matocrit value greater than 55% may lead to inaccurate results in coagulation testing. Patients having hematocrit values >55% require a special collection tube for coagulation studies. Please contact the laboratory at [phone] for redraw instructions. Performed By: #### P TT, CBC, PT ####[facility] [address] [place] [address] [facility] Activated partial thrombopla stin time (aPTT) in platelet poor plasma by coagulation aOrdered By: Saturnino Cortés on 07-26-2023 aPTT Coag (PPP) [Time] 29.6 s 25.1-36.5 [facility] Comment on above: A hematocrit value g reater than 55% may lead to inaccurate results in coagulation testing. Patients having hematocrit values >55% require a special collection tube for coagulation studies. Please contact the laboratory at [phone] for redraw instructions. Automated basophil %Ordered By: Veronicaana paula Cortés on 07-26-2023 Basophils/100 WBC (Bld) 1.1 % Normal . [facility] Comment on above: Performed By: #### P TT, PT, CBC ####[place] [id number] [facility] Automated basophil countOrde red By: Saturnino Cortés on 07-26-2023 Basophils (Bld) [#/Vol] 0.1 10*3/uL Normal 0.0-0.2 [facility] Comment on above: Result Comment: PERF ORMED BY:[address] [place], [place] [phone] MEDICAL DIRECTORARIE ROJO M.D. Performed By: #### P TT, PT, CBC ####[address] Automated blood monocyte cou ntOrdered By: Saturnino Cortés on 07-26-2023 Monocytes (Bld) [#/Vol] 0.2 10*3/uL Normal 0.0-0.8 [facility] Comment on above: Performed By: #### P TT, PT, CBC ####[place] [id number] [facility] Automated eosinophil %Ordere d By: Saturnino Cortés on 07-26-2023 Eosinophils/100 WBC (Bld) 0.0 % Normal . [facility] Comment on above: Performed By: #### P TT, PT, CBC ####[address] Automated eosinophil countOr dered By: Saturnino Cortés on 07-26-2023 Eosinophils (Bld) [#/Vol] 0.0 10*3/uL Normal 0.0-0.45 [facility] Comment on above: Performed By: #### P TT, PT, CBC ####[place] [id number] [place] Automated monocyte %Ordered By: Saturnino Cortés on 07-26-2023 Monocytes/100 WBC (Bld) 3.2 % Normal . [facility] Comment on above: Performed By: #### P TT, PT, CBC ####[address] Automated neutrophil %Ordere d By: Saturnino Cortés on 07-26-2023 Neutrophils/100 WBC (Bld) 92.5 % Normal . [facility] Comment on above: Performed By: #### P TT, PT, CBC ####[address] Bacteria [Presence] in Urine by AutomatedOrdered By: Saturnino Cortés on 07-26-2023 Bacteria Auto Ql (U) 3+ [HPF] High None Seen [facility] Bilirubin Test strip Ql (U)O rdered By: Saturnino Cortés on 07-26-2023 Bilirubin Ql (U) Negative Negative [facility] Color of Urine by AutoOrdere d By: Saturnino Cortés on 07-26-2023 Color (U) Yellow Normal Yellow [facility] Comment on above: Order Comment: Name Collection Type:: Hanson Catheter Performed By: #### A BRENDEN GARCIAU ####[address] Complete Blood Count Auto Di ffon 07-26-2023 Mean Corpuscular HGB Conc 33.6 g/dL Normal 32.0-35.0 [facility] Comment on above: Performed By: #### P TT, PT, CBC ####[address] Monocyte Distribution Width Not performed Normal 0.00-20.00 [facility] Comment on above: Result Comment: Unab le to calculate MDW because the Absolute Monocyte Count is <0.8. Performed By: #### P TT, PT, CBC ####[address] NRBC% 0.1 /100{WBC} Normal 0-0.5 [facility] Comment on above: Performed By: #### P TT, PT, CBC ####[address] [address] [facility] Dipstick and Microscopicon 0 07-26-2023 Appearance (U) Clear Normal Clear [facility] Comment on above: Order Comment: Name Collection Type:: Hanson Catheter Performed By: #### A DDONUAPLUS, CUU ####[address] [address] [facility] Bacteria,Urine 3+ High None Seen [facility] Comment on above: Order Comment: Name Collection Type:: Hanson Catheter Performed By: #### A DDONUAPLUS, CUU ####[address] [address] [facility] Bilirubin,Urine Negative Normal Negative The [facility] Comment on above: Order Comment: Name Collection Type:: Hanson Catheter Performed By: #### A DDONUAPLUS, CUU ####[address] [address] [facility] Glucose Ql (U) Normal Normal Normal [facility] Comment on above: Order Comment: Name Collection Type:: Hanson Catheter Performed By: #### A DDONUAPLUS, CUU ####[address] [address] [facility] Hyaline Casts,Urine 0-8 Normal 0-8 [facility] Comment on above: Order Comment: Name Collection Type:: Hanson Catheter Result Comment: PERF ORMED BY:[address] [place], [place] [phone] MEDICAL BIANCA ROJO M.D. Performed By: #### A DDONUAPLUS, CUU ####[address] [address] [facility] Ketones Ql (U) Negative Normal Negative [facility] Comment on above: Order Comment: Name Collection Type:: Hanson Catheter Performed By: #### A DDONUAPLUS, CUU ####[address] [address] [facility] Leukocyte esterase Test strip Ql (U) 3+ High Negative [facility] Comment on above: Order Comment: Name Collection Type:: Hanson Catheter Performed By: #### A DDONUAPLUS, CUU ####[address] [address] [facility] Nitrite,Urine Positive High Negative [facility] Comment on above: Order Comment: Name Collection Type:: Hanson Catheter Performed By: #### A DDONUAPLUS, CUU ####[address] [address] [facility] Occult Blood,Urine Negative Normal Negative [facility] Comment on above: Order Comment: Name Collection Type:: Hanson Catheter Result Comment: PERF ORMED BY:[address] [place], [place] [phone] MEDICAL DIRECTORARIE ROJO M.D. Performed By: #### A DDONUAPLUS, CUU ####[address] Protein,Urine Trace High Negative [facility] Comment on above: Order Comment: Name Collection Type:: Hanson Catheter Performed By: #### A DDONUAPLUS, CUU ####[place] [id number] [facility] RBC,Urine 1-2 Normal 0-4 [facility] Comment on above: Order Comment: Name Collection Type:: Hanson Catheter Performed By: #### A DDONUAPLUS, CUU ####[place] [id number] [facility] Specificy Morton,Urine 1.014 Normal 1.001-1.03 0 [facility] Comment on above: Order Comment: Name Collection Type:: Hanson Catheter Performed By: #### A DDONUAPLUS, CUU ####[place] [id number] [facility] Squamous Epithelial Cell,Urine None Seen Normal 0-2 [facility] Comment on above: Order Comment: Name Collection Type:: Hanson Catheter Performed By: #### A DDONUAPLUS, CUU ####[facility] [address] [place] [address] [facility] Urobilinogen,Urine Normal Normal Normal [facility] Comment on above: Order Comment: Name Collection Type:: Hanson Catheter Performed By: #### A DDONUAPLUS, CUU ####[facility] [place] [address] [facility] WBC,Urine 20-49 High 0-4 [facility] Comment on above: Order Comment: Name Collection Type:: Hanson Catheter Performed By: #### A DDONUAPLUS, CUU ####[place] [address] [place] [address] [facility] ECH echo transthoracicon ECH echo transthoracic Normal Th e [facility] Erythrocyte distribution wid th [Ratio] by Automated countOrdered By: Saturnino Cortés on 07-26-2023 Erythrocyte distribution width (RBC) [Ratio] 13.7 % Normal 11.9-15.3 [facility] Comment on above: Performed By: #### P TT, PT, CBC ####[place] [id number] Erythrocytes [#/area] in Uri ne sediment by Automated countOrdered By: Saturnino Cortés on 07-26-2023 RBC Auto (Urine sed) [#/Area] 1-2 [HPF] 0-4 [facility] Erythrocytes [#/volume] in B lood by Automated countOrdered By: Saturnino Cortés on 07-26-2023 RBC (Bld) [#/Vol] 4.17 10*6/uL Normal 3.60-5.00 [facility] Comment on above: Performed By: #### P TT, PT, CBC ####[place] [address] [place] [id number] [facility] Glucose Poct Glucometerson 0 07-26-2023 Glucose [Mass/Vol] 126 mg/dL Normal [facility] Comment on above: Result Comment: [facility] om Glucose Reference Range is dependent on time and content of last meal. Glucose of more than 200 mg/dL in a nonstressed, ambulatory subject supports the diagnosis of Diabetes Mellitus.PERFORMED BY:[place] [address] [place], [place] [phone] MEDICAL DIRECTORARIE ROJO M.D. Performed By: #### G LULS ####Point of Care testing, Commemt1 Glu2: Cleaned Meter Normal [facility] Comment on above: Result Comment: PERF ORMED BY:[place] [address] [address] AUDREYÓscarCecyROBERTDANIELS, [place] [phone] MEDICAL DIRECTORARIE ROJO M.D. Performed By: #### G LULS ####Point of Care testing, Glucose [Mass/Vol] 141 mg/dL Normal [facility] Comment on above: Result Comment: [facility] [facility] Glucose Reference Range is dependent on time and content of last meal. Glucose of more than 200 mg/dL in a nonstressed, ambulatory subject supports the diagnosis of Diabetes Mellitus. Performed By: #### G LULS ####Point of Care testing, Commemt1 Glu2: Cleaned Meter Normal [facility] Comment on above: Result Comment: PERF ORMED BY:[place] [address] [place], [place] [phone] MEDICAL DIRECTORARIE ROJO M.D. Performed By: #### G LULS ####Point of Care testing, Glucose [Mass/Vol] 141 mg/dL Normal [facility] Comment on above: Result Comment: [place] om Glucose Reference Range is dependent on time and content of last meal. Glucose of more than 200 mg/dL in a nonstressed, ambulatory subject supports the diagnosis of Diabetes Mellitus. Performed By: #### G LULS ####Point of Care testing, Commemt1 Glu2: Cleaned Meter Normal [facility] Comment on above: Result Comment: PERF ORMED BY:[place] [address] [place] [place], [place] [phone] MEDICAL BIANCA ROJO M.D. Performed By: #### G LULS ####Point of Care testing, Glucose [Mass/Vol] 162 mg/dL Normal [facility] Comment on above: Result Comment: [facility] Glucose Reference Range is dependent on time and content of last meal. Glucose of more than 200 mg/dL in a nonstressed, ambulatory subject supports the diagnosis of Diabetes Mellitus. Performed By: #### G DOMINIC ####Point of Care testing, Hematocrit [Volume Fraction] of Blood by Automated countOrdered By: Saturnino Cortés on 07-26-2023 Hematocrit (Bld) [Volume fraction] 36.9 % Normal 34.0-46.4 [facility] Comment on above: Performed By: #### P TT, PT, CBC ####[place] [id number] [facility] Hemoglobin [Mass/volume] in BloodOrdered By: Saturnino Cortés on 07-26-2023 Hemoglobin (Bld) [Mass/Vol] 12.4 g/dL Normal 11.8-15.4 [facility] Comment on above: Performed By: #### P TT, PT, CBC ####[place] [id number] [facility] INR in Platelet poor plasma by Coagulation assayOrdered By: Saturnino Cortés on 07-26-2023 INR Coag (PPP) [Relative time] 1.0 {INR} Normal [facility] Comment on above: INR Therapeutic Rang e [...] Performed By: #### P TT, PT, CBC ####[place] [id number] [facility] Ketones Auto test strip (U) [Mass/Vol]Ordered By: Saturnino Cortés on 07-26-2023 Ketones (U) [Mass/Vol] Negative Negative [facility] - UrinalysisOrder ed By: Saturnino Cortés on 07-26-2023 Hyaline casts LM Ql (Urine sed) 0-8 [LPF] 0-8 [facility] Leukocytes [#/area] in Urine sediment by Automated countOrdered By: Saturnino Cortés on 07-26-2023 WBC Auto (Urine sed) [#/Area] 20-49 [HPF] High 0-4 [facility] Leukocytes [#/volume] correc hugh for nucleated erythrocytes in Blood by Automated counOrdered By: Saturnino Cortés on 07-26-2023 WBC corrected for nucl RBC Auto (Bld) [#/Vol] 6.8 10*3/uL 3.8-11.6 [facility] Leukocytes [#/volume] in Blo od by Automated countOrdered By: Saturnino Cortés on 07-26-2023 WBC (Bld) [#/Vol] 6.8 10*3/uL Normal 3.8-11.6 [facility] Comment on above: Performed By: #### P TT, PT, CBC ####[facility] [id number] [place] [address] Lymphocytes [#/volume] in Bl ood by Automated countOrdered By: Saturnino Cortés on 07-26-2023 Lymphocytes (Bld) [#/Vol] 0.2 10*3/uL Low 1.00-4.8 [facility] Comment on above: Performed By: #### P TT, PT, CBC ####[facility] [id number] [place] [id number] [facility] Lymphocytes/100 leukocytes i n Blood by Automated countOrdered By: Saturnino Cortés on 07-26-2023 Lymphocytes/100 WBC (Bld) 3.2 % Normal . [facility] Comment on above: Performed By: #### P TT, PT, CBC ####[facility] [id number] [place], [place] [id number] [place] MCH [Entitic mass] by Automa hugh countOrdered By: Saturnino Cortés on 07-26-2023 MCH (RBC) [Entitic mass] 29.8 pg Normal 24.7-34.3 [facility] Comment on above: Performed By: #### P TT, PT, CBC ####[facility] [id number] MCHC Auto (RBC) [Mass/Vol]Or dered By: Saturnino Cortés on 07-26-2023 MCHC (RBC) [Mass/Vol] 33.6 g/dL 32.0-35.0 [facility] MCV [Entitic volume] by Auto mated countOrdered By: Saturnino Cortés on 07-26-2023 MCV (RBC) [Entitic vol] 88.6 fL Normal 80-100 [facility] Comment on above: Performed By: #### P TT, PT, CBC ####[address] Monocyte distribution width [Entitic volume] in Blood by AutomatedOrdered By: Saturnino Cortés on 07-26-2023 Monocyte distribution width Auto (Bld) [Entitic vol] Test not performed % 0.00-20.00 [facility] Comment on above: Unable to calculate MDW because the Absolute Monocyte Count is <0.8. Neutrophils [#/volume] in Bl ood by Automated countOrdered By: Saturnino Cortés on 07-26-2023 Neutrophils (Bld) [#/Vol] 6.3 10*3/uL Normal 1.8-7.7 [facility] Comment on above: Performed By: #### P TT, PT, CBC ####[facility] [id number] Nitrite Test strip Ql (U)Ord ered By: Saturnino Cortés on 07-26-2023 Nitrite Ql (U) Positive High Negative [facility] Nucleated erythrocytes [Pres ence] in Blood by Automated countOrdered By: Saturnino Cortés on 07-26-2023 Nucleated RBC Auto Ql (Bld) 0.1 /100{WBC} 0-0.5 [facility] Partial Thromboplastin Timeo n 07-26-2023 aPTT Coag (Bld) [Time] 29.5 s Normal 25.1-36.5 Th [facility] Comment on above: Result Comment: A he matocrit value greater than 55% may lead to inaccurate results in coagulation testing. Patients having hematocrit values >55% require a special collection tube for coagulation studies. Please contact the laboratory at [phone] for redraw instructions.PERFORMED BY:[place] [address] [place], [place] [phone] MEDICAL DIRECTORARIE ROJO M.D. Performed By: #### P TT ####[address] [address] [facility] aPTT Coag (Bld) [Time] 53.6 s High 25.1-36.5 Th e [facility] Comment on above: Order Comment: Comme nt Pt on heparin drip List the anticoagulant: HEPARIN, UNFRACTIONATED Result Comment: A he matocrit value greater than 55% may lead to inaccurate results in coagulation testing. Patients having hematocrit values >55% require a special collection tube for coagulation studies. Please contact the laboratory at [phone] for redraw instructions.PERFORMED BY:[place] [address] [place], [place] [phone] MEDICAL BIANCA ROJO M.D. Performed By: #### P TT ####[address] [address] [facility] aPTT Coag (Bld) [Time] 29.6 s Normal 25.1-36.5 Th e [facility] Comment on above: Result Comment: A he matocrit value greater than 55% may lead to inaccurate results in coagulation testing. Patients having hematocrit values >55% require a special collection tube for coagulation studies. Please contact the laboratory at [phone] for redraw instructions.PERFORMED BY:[place] [address] [place], [place] [phone] MEDICAL BIANCA ROJO M.D. Performed By: #### P TT, PT, CBC ####[address] [address] [facility] Platelet mean volume [Entiti c volume] in Blood by Automated countOrdered By: Saturnino Cortés on 07-26-2023 Platelet mean volume (Bld) [Entitic vol] 8.9 fL Normal 6.3-10.7 [facility] Comment on above: Performed By: #### P TT, PT, CBC ####[place] [address] [place] [id number] [facility] Platelets [#/volume] in Bloo d by Automated countOrdered By: Saturnino Cortés on 07-26-2023 Platelets (Bld) [#/Vol] 105 10*3/uL Low 150-450 [facility] Comment on above: Performed By: #### P TT, PT, CBC ####[place] [address] [place] [id number] [facility] Protein Auto test strip (U) [Mass/Vol]Ordered By: Saturnino Cortés on 07-26-2023 Protein (U) [Mass/Vol] Trace mg/dL High Negative [facility] Prothrombin time (PT)Ordered By: Saturnino Cortés on 07-26-2023 PT Coag (PPP) [Time] 11.4 s Normal 9.0-12.9 [facility] Comment on above: A hematocrit value g reater than 55% may lead to inaccurate results in coagulation testing. Patients having hematocrit values >55% require a special collection tube for coagulation studies. Please contact the laboratory at [phone] for redraw instructions. Result Comment: A he matocrit value greater than 55% may lead to inaccurate results in coagulation testing. Patients having hematocrit values >55% require a special collection tube for coagulation studies. Please contact the laboratory at [phone] for redraw instructions. Performed By: #### P TT, PT, CBC ####[place] [address] [place] [id number] [facility] Specific gravity Auto test s trip (U) [Rel density]Ordered By: Saturnino Cortés on 07-26-2023 Specific gravity (U) [Rel density] 1.014 1.001-1.03 0 [facility] Squamous epithelial cells de tection in urine sediment by light microscopyOrdered By: Saturnino Cortés on 07-26-2023 Epithelial cells.squamous LM Ql (Urine sed) None seen [HPF] 0-2 [facility] Troponin I High Sensitivityo n 07-26-2023 Troponin I High Sensitivity 109.7 pg/mL Off scale high 0.0-15.0 [facility] Comment on above: Result Comment: Crit ical Result : Called to and read back by: TRISH LUBIN at: 07/26/2023 01:25:04 by:[id number] BY:[address] [place]RNANDEZLEONA, [place] [phone] MEDICAL DIRECTORARIE ROJO M.D. Performed By: #### H S TROP ####[facility] [id number] [place] [address] [facility] Troponin I.cardiac [Mass/vol ume] in Serum or Plasma by Detection limit <= 0.01 ng/Ordered By: Saturnino Cortés on 07-26-2023 Troponin I.cardiac DL <= 0.01 ng/mL [Mass/Vol] 109.7 pg/mL High 0.0-15.0 [facility] Comment on above: Critical Result : Ca lled to and read back by: TRISH LUBIN at: 07/26/2023 01:25:04 by:[id number] Urine Cultureon 07-26-2023 Bacteria identified Cx Nom (U) Normal [facility] Comment on above: Performed By: #### A DDONUAPLUS, CUU ####[address] [address] [facility] Urine clarity by refractomet ry automatedOrdered By: Saturnino Cortés on 07-26-2023 Clarity Refractometry automated (U) Clear Clear [facility] Urine culture routineOrdered By: Saturnino Cortés on 07-26-2023 Bacteria identified Cx Nom (U) Escherichia coli Abnormal [facility] Urine glucose measurement by automated test strip (mass/volume)Ordered By: Saturnino Cortés on 07-26-2023 Glucose Auto test strip (U) [Mass/Vol] Normal mg/dL Normal [facility] Urine hemoglobin detection b y automated test stripOrdered By: Saturnino Cortés on 07-26-2023 Hemoglobin Auto test strip Ql (U) Negative Negative [facility] Urine leukocyte esterase det ection by automated test stripOrdered By: Saturnino Cortés on 07-26-2023 Leukocyte esterase Auto test strip Ql (U) 3+ High Negative [facility] Urine pH measurement by auto mated test stripOrdered By: Saturnino Cortés on 07-26-2023 pH (U) 5.5 [pH] Normal 5.0-9.0 [facility] Comment on above: Order Comment: Name Collection Type:: Hanson Catheter Performed By: #### A DDONUAPLUS, CUU ####[place] [address] [place] [address] [facility] Urobilinogen Auto test strip (U) [Mass/Vol]Ordered By: Saturnino Cortés on 07-26-2023 Urobilinogen (U) [Mass/Vol] Normal mg/dL Normal [facility] XR chest 1V portableon 07-25 XR chest 1V portable Normal [facility] Bacterial blood cultureOrder ed By: Saturnino Cortés on 07-25-2023 Bacteria identified Cx Nom (Bld) NO GROWTH 5 DAYS [facility] Bacteria identified Cx Nom (Bld) NO GROWTH 5 DAYS [facility] Basic Metabolic Panelon 07-06 Creatinine Clr Calc Pharmacy 27.22 Normal [facility] Comment on above: Result Comment: PERF ORMED BY:[address] [place], [place] [phone] MEDICAL DIRECTORARIE ROJO M.D. Performed By: #### C BC, HS TROP, BMP ####[place] [address] [place] [address] [facility] GFR/1.73 sq M.predicted MDRD (S/P/Bld) [Vol rate/Area] 29.936 mL/min/{1.73_m2} Normal [facility] Comment on above: Performed By: #### C BC, HS TROP, BMP ####[place] [address] [place] [address] [facility] Blood Cultureon 07-25-2023 Bacteria identified Cx Nom (Bld) NO GROWTH 5 DAYS PERFORMED BY: [facility] [address] [place] [id number] PATHOLOGIST [employer]VERTISING [employer] WORKER ARIE ROJO M.D. Normal [facility] Comment on above: Performed By: #### C UBLD ####[place] [id number] [facility] Bacteria identified Cx Nom (Bld) NO GROWTH 5 DAYS PERFORMED BY: [facility] [address] [place] [address] PATHOLOGIST ADVERTISING LAYOUT WORKER ARIE ROJO M.D. Normal [facility] Comment on above: Performed By: #### C UBLD ####[address] COVID CepheidOrdered By: Lee Benedictland on 07-25-2023 SARS-CoV-2 (COVID-19) Ab IA Ql Negative Negative [facility] Comment on above: This is a duplicate Cepheid Xpert Xpress CoV-2/Flu/RSV Plus RNA by RT-PCR result to be used for statistical tracking purpose only. SARS-CoV-2 (COVID-19) RNA MITCHELL+probe Ql (Unsp spec) Normal [facility] Comment on above: Performed By: #### C OVID19 FLU RSV, CEPHEID NEG ####[address] Calcium [Mass/volume] in Ser um or PlasmaOrdered By: Saturnino Cortés on 07-25-2023 Calcium [Mass/Vol] 8.9 mg/dL Normal 8.6-10.3 [facility] Comment on above: Performed By: #### C BC, HS TROP, BMP ####[place] [id number] [facility] Carbon dioxide, total [Moles /volume] in Serum or PlasmaOrdered By: Saturnino Cortés on 07-25-2023 CO2 [Moles/Vol] 32.3 mmol/L High 21.0-31.0 [facility] Comment on above: Performed By: #### C BC, HS TROP, BMP ####[place] [address] [place] [id number] [facility] Cepheid COVID PCR Negativeon 07-25-2023 SARS-CoV-2 (COVID-19) RNA MITCHELL+probe Ql (Unsp spec) Negative Normal Negative [facility] Comment on above: Result Comment: This is a duplicate Cepheid Xpert Xpress CoV-2/Flu/RSV Plus RNA by RT-PCR result to be used for statistical tracking purpose only.PERFORMED BY:[place] [address] [place], [place] [phone] MEDICAL DIRECTORARIE ROJO M.D. Performed By: #### C OVID19 FLU RSV, CEPHEID NEG ####[address] Chloride [Moles/volume] in S cait or PlasmaOrdered By: Saturnino Cortés on 07-25-2023 Chloride [Moles/Vol] 96 mmol/L Low 98-107 [facility] Comment on above: Performed By: #### C BC, HS TROP, BMP ####[place] [id number] [facility] Complete Blood Count Auto Di ffon 07-25-2023 Basophils (Bld) [#/Vol] 0.1 10*3/uL Normal 0.0-0.2 [facility] Comment on above: Result Comment: PERF ORMED BY:[address] [place], [place] [phone] MEDICAL DIRECTORARIE ROJO M.D. Performed By: #### C BC, HS TROP, BMP ####[place] [id number] [facility] Basophils/100 WBC (Bld) 1.4 % Normal . [facility] Comment on above: Performed By: #### C BC, HS TROP, BMP ####[place] [id number] [facility] Eosinophils (Bld) [#/Vol] 0.1 10*3/uL Normal 0.0-0.45 [facility] Comment on above: Performed By: #### C BC, HS TROP, BMP ####[place] [id number] [facility] Eosinophils/100 WBC (Bld) 0.8 % Normal . [facility] Comment on above: Performed By: #### C BC, HS TROP, BMP ####[place] [id number] [facility] Erythrocyte distribution width (RBC) [Ratio] 13.6 % Normal 11.9-15.3 [facility] Comment on above: Performed By: #### C BC, HS TROP, BMP ####[place] [id number] [facility] Hematocrit (Bld) [Volume fraction] 40.3 % Normal 34.0-46.4 [facility] Comment on above: Performed By: #### C BC, HS TROP, BMP ####[place] [id number] [facility] Hemoglobin (Bld) [Mass/Vol] 13.5 g/dL Normal 11.8-15.4 [facility] Comment on above: Performed By: #### C BC, HS TROP, BMP ####[place] [id number] [facility] Lymphocytes (Bld) [#/Vol] 0.8 10*3/uL Low 1.00-4.8 [facility] Comment on above: Performed By: #### C BC, HS TROP, BMP ####[place] [id number] [facility] Lymphocytes/100 WBC (Bld) 10.7 % Normal . [facility] Comment on above: Performed By: #### C BC, HS TROP, BMP ####[place] [id number] [facility] MCH (RBC) [Entitic mass] 29.9 pg Normal 24.7-34.3 [facility] Comment on above: Performed By: #### C BC, HS TROP, BMP ####[place] [id number] [facility] MCV (RBC) [Entitic vol] 89.3 fL Normal 80-100 [facility] Comment on above: Performed By: #### C BC, HS TROP, BMP ####[place] [id number] [facility] Mean Corpuscular HGB Conc 33.4 g/dL Normal 32.0-35.0 [facility] Comment on above: Performed By: #### C BC, HS TROP, BMP ####[place] [id number] [facility] Monocytes (Bld) [#/Vol] 0.6 10*3/uL Normal 0.0-0.8 [facility] Comment on above: Performed By: #### C BC, HS TROP, BMP ####[place] [id number] [facility] Monocytes/100 WBC (Bld) 27.64 % High 0.00-20.00 [facility] Comment on above: Result Comment: For adults in ED, MDW > 20.0 may be associated with a higher risk of sepsis during the first 12 hrs of hospital admission Performed By: #### C BC, HS TROP, BMP ####[place] [id number] [facility] Monocytes/100 WBC (Bld) 8.0 % Normal . [facility] Comment on above: Performed By: #### C BC, HS TROP, BMP ####[place] [id number] [facility] Neutrophils (Bld) [#/Vol] 5.8 10*3/uL Normal 1.8-7.7 [facility] Comment on above: Performed By: #### C BC, HS TROP, BMP ####[place] [id number] [facility] Neutrophils/100 WBC (Bld) 79.1 % Normal . [facility] Comment on above: Performed By: #### C BC, HS TROP, BMP ####[place] [id number] [facility] NRBC% 0.1 /100{WBC} Normal 0-0.5 [facility] Comment on above: Performed By: #### C BC, HS TROP, BMP ####[facility] [place] [address] [facility] Platelet mean volume (Bld) [Entitic vol] 9.0 fL Normal 6.3-10.7 [facility] Comment on above: Performed By: #### C BC, HS TROP, BMP ####[facility] [place] [address] [facility] Platelets (Bld) [#/Vol] 112 10*3/uL Low 150-450 [facility] Comment on above: Performed By: #### C BC, HS TROP, BMP ####[facility] [place] [address] [facility] RBC (Bld) [#/Vol] 4.51 10*6/uL Normal 3.60-5.00 [facility] Comment on above: Performed By: #### C BC, HS TROP, BMP ####[place] [address] [place] [address] [facility] WBC (Bld) [#/Vol] 7.3 10*3/uL Normal 3.8-11.6 [facility] Comment on above: Performed By: #### C BC, HS TROP, BMP ####[place] [address] [place] [id number] [facility] Creatinine [Mass/volume] in Serum or PlasmaOrdered By: Saturnino Cortés on 07-25-2023 Creatinine [Mass/Vol] 1.80 mg/dL High 0.60-1.20 [facility] Comment on above: Performed By: #### C BC, HS TROP, BMP ####[place] [address] [place] [address] [facility] ECG 12 lead ECGon 07-25-2023 ECG 12 lead ECG Normal [facility] Glucose [Mass/volume] in Ser um or PlasmaOrdered By: Saturnino Cortés on 07-25-2023 Glucose [Mass/Vol] 146 mg/dL High 70-100 [facility] Comment on above: ADA recommended refe rence rangeRandom Glucose Reference Range is dependent on time and content of last meal. Glucose of more than 200 mg/dL in a nonstressed, ambulatory subject supports the diagnosis of Diabetes Mellitus. Result Comment: [facility] Glucose Reference Range is dependent on time and content of last meal. Glucose of more than 200 mg/dL in a nonstressed, ambulatory subject supports the diagnosis of Diabetes Mellitus. ADA recommended reference range Performed By: #### C BC, HS TROP, BMP ####[facility] [address] [place] [address] [facility] Lactate [Moles/volume] in Se rum or PlasmaOrdered By: Saturnino Cortés on 07-25-2023 Lactate [Moles/Vol] 1.0 mmol/L Normal 0.5-2.2 [facility] Comment on above: Result Comment: PERF ORMED BY:[address] [place], [place] [phone] MEDICAL DIRECTORARIE ROJO M.D. Performed By: #### L ACTIC ####[facility] [place] [address] [facility] No Panel InformationOrdered By: Saturnino Cortés on 07-25-2023 Blood Gas Critical Value See comment [facility] Comment on above: Critical Value lopez d on: 07/25/2023 at 22:50 Blood Gas Sample Site Venous Fir [facility] FiO2 32 % [facility] Venous Blood Base Excess 4.2 mmol/L High -3.0-3.0 [facility] Venous Blood Oxygen Content 8.4 mmol/L 6.6-9.7 [facility] Venous Blood Oxygen Saturation 97.4 % High 73.0-76.0 [facility] Venous Blood Partial Pressure CO2 37.7 mm[Hg] Low 38.0-50.0 [facility] Venous Blood Partial Pressure O2 92.0 mm[Hg] High 35.0-45.0 [facility] Venous Blood pH 7.48 High 7.32-7.43 [facility] Estimated GFR (CKD-EPI) 29.936 mL/Min [facility] Creatinine Clearance (Chem 27.22 [facility] Potassium [Moles/volume] in Serum or PlasmaOrdered By: Saturnino Cortés on 07-25-2023 Potassium [Moles/Vol] 4.7 mmol/L Normal 3.5-5.1 [facility] Comment on above: Performed By: #### C BC, HS TROP, BMP ####[place] [address] [place] [id number] [facility] Serum or plasma anion gap de terminationOrdered By: Saturnino Cortés on 07-25-2023 Anion gap [Moles/Vol] 12.4 mmol/L Normal 6.0-15.0 [facility] Comment on above: Performed By: #### C BC, HS TROP, BMP ####[place] [address] [place] [id number] [facility] Sodium [Moles/volume] in Ser um or PlasmaOrdered By: Saturnino Cortés on 07-25-2023 Sodium [Moles/Vol] 136 mmol/L Normal 136-145 [facility] Comment on above: Performed By: #### C BC, HS TROP, BMP ####[place] [address] [place] [id number] [facility] Troponin I High Sensitivityo n 07-25-2023 Troponin I High Sensitivity 68.6 pg/mL Off scale high 0.0-15.0 [facility] Comment on above: Result Comment: Crit ical Result : Called to and read back by: HOMERO TAYLOR at: 07/25/2023 23:37:30 by:[id number] BY:[address] [address] [place], [place] [phone] MEDICAL DIRECTORARIE ROJO M.D. Performed By: #### C BC, HS TROP, BMP ####[place] [address] [place] [id number] [facility] Urea nitrogen [Mass/volume] in Serum or PlasmaOrdered By: Saturnino Cortés on 07-25-2023 Urea nitrogen [Mass/Vol] 38 mg/dL High 7-25 [facility] Comment on above: Performed By: #### C BC, HS TROP, BMP ####[place] [address] [place] [id number] [facility] Venous Blood GasOrdered By: Saturnino Cortés on 07-25-2023 CO2 [Moles/Vol] 28.9 mmol/L Normal 24.0-29.0 [facility] Comment on above: Performed By: #### V BG ####Point of Care testing, HCO3 (Bld) [Moles/Vol] 27.7 mmol/L Normal 23.0-29.0 [facility] Comment on above: Performed By: #### V BG ####Point of Care testing, Venous Blood Gason Respiratory Critical Normal [facility] Comment on above: Result Comment: Crit ical Value called on: 07/25/2023 at 22:50PERFORMED BY:[facility] [place], [place] [phone] MEDICAL DIRECTORARIE ROJO M.D. Performed By: #### V BG ####Point of Care testing, VBG Base Excess 4.2 mmol/L High -3.0-3.0 [facility] Comment on above: Performed By: #### V BG ####Point of Care testing, VBG Draw Site Venous Normal [facility] Comment on above: Performed By: #### V BG ####Point of Care testing, VBG Frac Inspired O2 32 % Normal [facility] Comment on above: Performed By: #### V BG ####Point of Care testing, VBG O2 Content 8.4 mmol/L Normal 6.6-9.7 [facility] Comment on above: Performed By: #### V BG ####Point of Care testing, VBG Oxygen Saturation 97.4 % Off scale high 73.0-76.0 [facility] Comment on above: Performed By: #### V BG ####Point of Care testing, VBG PCO2 37.7 mm[Hg] Low 38.0-50.0 [facility] Comment on above: Performed By: #### V BG ####Point of Care testing, VBG PH Venous PH 7.48 High 7.32-7.43 [facility] Comment on above: Performed By: #### V BG ####Point of Care testing, VBG PO2 92.0 mm[Hg] Off scale high 35.0-45.0 [facility] Comment on above: Performed By: #### V BG ####Point of Care testing, A1C HEMOGLOBINon 03-03-2023 HbA1c (Bld) [Mass fraction] 5.3 % [facility] [employer] Other HbA1c (Bld) [Mass fraction]o n 03-03-2023 A1C HEMOGLOBIN [facility] [employer] Other Alanine aminotransferase [En zymatic activity/volume] in Serum or PlasmaOrdered By: Neto Arauz on 12-13-2022 ALT [Catalytic activity/Vol] 17 U/L 7-52 [facility] Albumin [Mass/volume] in Ser um or Plasma by Bromocresol green (BCG) dye binding methoOrdered By: Neto Arauz on 12-13-2022 Albumin BCG dye [Mass/Vol] 4.3 g/dL 3.5-5.7 [facility] Alkaline phosphatase [Enzyma tic activity/volume] in Serum or PlasmaOrdered By: Neto Arauz on 12-13-2022 ALP [Catalytic activity/Vol] 111 U/L 34-104 [facility] Aspartate aminotransferase [ Enzymatic activity/volume] in Serum or PlasmaOrdered By: Neto Arauz on 12-13-2022 AST [Catalytic activity/Vol] 19 U/L 13-39 [facility] Basophils Auto (Bld) [#/Vol] Ordered By: Neto Arauz on 12-13-2022 Basophils (Bld) [#/Vol] 0.1 10*3/uL 0.0-0.2 [facility] Basophils/100 WBC Auto (Bld) Ordered By: Neto Arauz on 12-13-2022 Basophils/100 WBC (Bld) 0.9 % . [facility] Bilirubin.total [Mass/volume ] in Serum or PlasmaOrdered By: Neto Arauz on 12-13-2022 Bilirubin [Mass/Vol] 0.5 mg/dL 0.3-1.0 [facility] Calcium [Mass/volume] in Ser um or PlasmaOrdered By: Neto Arauz on 12-13-2022 Calcium [Mass/Vol] 9.7 mg/dL 8.6-10.3 [facility] Carbon dioxide, total [Moles /volume] in Serum or PlasmaOrdered By: Neto Arauz on 12-13-2022 CO2 [Moles/Vol] 39.7 mmol/L 21.0-31.0 [facility] Chloride [Moles/volume] in S cait or PlasmaOrdered By: Neto Arauz on 12-13-2022 Chloride [Moles/Vol] 99 mmol/L 98-107 [facility] Cholesterol [Mass/volume] in Serum or PlasmaOrdered By: Neto Arauz on 12-13-2022 Cholesterol [Mass/Vol] 139 mg/dL 140-200 [facility] Comment on above: Chol less than 200 m g/dl low riskChol 201-239 mg/dl borderline riskChol 240 mg/dl and greater high risk Cholesterol in LDL Calc [Mas s/Vol]Ordered By: Neto Arauz on 12-13-2022 Cholesterol in LDL [Mass/Vol] 62 mg/dL 0-100 [facility] Comment on above: LDL ATP III CLASSIFI CATIONLDL less than 100 mg/dL OptimalLDL 100-129 mg/dL Near or above optimalLDL 130-159 mg/dL Borderline highLDL 160-189 mg/dL HighLDL greater than 189 mg/dL Very high Cholesterol in VLDL Calc [Ma ss/Vol]Ordered By: Neto Arauz on 12-13-2022 Cholesterol in VLDL [Mass/Vol] 14 mg/dL [facility] Creatinine [Mass/volume] in Serum or PlasmaOrdered By: Neto Arauz on 12-13-2022 Creatinine [Mass/Vol] 1.25 mg/dL 0.60-1.20 [facility] Eosinophils Auto (Bld) [#/Vo l]Ordered By: Neto Arauz on 12-13-2022 Eosinophils (Bld) [#/Vol] 0.1 10*3/uL 0.0-0.45 [facility] Eosinophils/100 WBC Auto (Bl d)Ordered By: Neto Arauz on 12-13-2022 Eosinophils/100 WBC (Bld) 1.4 % . [facility] Erythrocyte distribution wid th Auto (RBC) [Ratio]Ordered By: Neto Arauz on 12-13-2022 Erythrocyte distribution width (RBC) [Ratio] 14.4 % 11.9-15.3 [facility] Globulin Calc (S) [Mass/Vol] Ordered By: Neto Arauz on 12-13-2022 Globulin (S) [Mass/Vol] 2.6 g/dL [facility] Glucose [Mass/volume] in Ser um or PlasmaOrdered By: Neto Arauz on 12-13-2022 Glucose [Mass/Vol] 86 mg/dL 70-100 [facility] Comment on above: ADA recommended refe [...] from glycated hemoglobin (Bld) [Mass/Vol] 111 mg/dL [facility] Hematocrit Auto (Bld) [Volum e fraction]Ordered By: Neto Arauz on 12-13-2022 Hematocrit (Bld) [Volume fraction] 46.1 % 34.0-46.4 [facility] Hemoglobin A1c percentageOrd ered By: Neto Arauz on 12-13-2022 HbA1c (Bld) [Mass fraction] 5.5 % 4.3-5.6 [facility] Comment on above: Increased risk for d iabetes: 5.7 - 6.4diabetes: >6.4glycemic control for adults with diabetes: <7.0 Hemoglobin [Mass/volume] in BloodOrdered By: Neto Arauz on 12-13-2022 Hemoglobin (Bld) [Mass/Vol] 14.9 g/dL 11.8-15.4 [facility] Leukocytes [#/volume] correc hugh for nucleated erythrocytes in Blood by Automated counOrdered By: Neto Arauz on 12-13-2022 WBC corrected for nucl RBC Auto (Bld) [#/Vol] 7.4 10*3/uL 3.8-11.6 [facility] Lymphocytes Auto (Bld) [#/Vo l]Ordered By: Neto Arauz on 12-13-2022 Lymphocytes (Bld) [#/Vol] 1.5 10*3/uL 1.00-4.8 [facility] Lymphocytes/100 WBC Auto (Bl d)Ordered By: Neto Arauz on 12-13-2022 Lymphocytes/100 WBC (Bld) 20.6 % . [facility] MCH Auto (RBC) [Entitic mass ]Ordered By: Neto Arauz on 12-13-2022 MCH (RBC) [Entitic mass] 29.6 pg 24.7-34.3 [facility] MCHC Auto (RBC) [Mass/Vol]Or dered By: Neto Arauz on 12-13-2022 MCHC (RBC) [Mass/Vol] 32.4 g/dL 32.0-35.0 [facility] MCV Auto (RBC) [Entitic vol] Ordered By: Neto Arauz on 12-13-2022 MCV (RBC) [Entitic vol] 91.3 fL 80-100 [facility] Monocytes Auto (Bld) [#/Vol] Ordered By: Neto Arauz on 12-13-2022 Monocytes (Bld) [#/Vol] 0.5 10*3/uL 0.0-0.8 [facility] Monocytes/100 WBC Auto (Bld) Ordered By: Neto Arauz on 12-13-2022 Monocytes/100 WBC (Bld) 6.2 % . [facility] Neutrophils Auto (Bld) [#/Vo l]Ordered By: Neto Arauz on 12-13-2022 Neutrophils (Bld) [#/Vol] 5.2 10*3/uL 1.8-7.7 [facility] Neutrophils/100 WBC Auto (Bl d)Ordered By: Neto Arauz on 12-13-2022 Neutrophils/100 WBC (Bld) 70.9 % . [facility] No Panel InformationOrdered By: Neto Arauz on 12-13-2022 Estimated GFR (CKD-EPI) 46.657 mL/Min [facility] Creatinine Clearance (Chem N/A [facility] Nucleated erythrocytes [Pres ence] in Blood by Automated countOrdered By: Neto Arauz on 12-13-2022 Nucleated RBC Auto Ql (Bld) 0.1 /100{WBC} 0-0.5 [facility] Platelet mean volume Auto (B ld) [Entitic vol]Ordered By: Neto Arauz on 12-13-2022 Platelet mean volume (Bld) [Entitic vol] 9.7 fL 6.3-10.7 [facility] Platelets Auto (Bld) [#/Vol] Ordered By: Neto Arauz on 12-13-2022 Platelets (Bld) [#/Vol] 193 10*3/uL 150-450 [facility] Potassium [Moles/volume] in Serum or PlasmaOrdered By: Neto Arauz on 12-13-2022 Potassium [Moles/Vol] 4.3 mmol/L 3.5-5.1 [facility] Protein [Mass/volume] in Ser um or PlasmaOrdered By: Neto Arauz on 12-13-2022 Protein [Mass/Vol] 6.9 g/dL 6.4-8.9 [facility] RBC Auto (Bld) [#/Vol]Ordere d By: Neto Arauz on 12-13-2022 RBC (Bld) [#/Vol] 5.05 10*6/uL 3.60-5.00 [facility] Serum or plasma albumin/glob ulin mass ratioOrdered By: Neto Arauz on 12-13-2022 Albumin/Globulin [Mass ratio] 1.7 {ratio} [facility] Serum or plasma anion gap de terminationOrdered By: Neto Arauz on 12-13-2022 Anion gap [Moles/Vol] 8.6 mmol/L 6.0-15.0 [facility] Serum or plasma high density lipoprotein (HDL) cholesterol measurementOrdered By: Neto Arauz on 12-13-2022 Cholesterol in HDL [Mass/Vol] 62 mg/dL 23-92 [facility] Comment on above: HDL CHOL ATP-III CLA SSIFICATION Cardiovascular RiskHDL > or equal to 60 mg/dL LOWHDL < 40 mg/dL HIGH Serum or plasma total choles terol/high density lipoprotein (HDL) cholesterol mass ratOrdered By: Neto Arauz on 12-13-2022 Cholesterol.total/Chol esterol in HDL [Mass ratio] 2.2 {ratio} <5.0 [facility] Sodium [Moles/volume] in Ser um or PlasmaOrdered By: Neto Arauz on 12-13-2022 Sodium [Moles/Vol] 143 mmol/L 136-145 [facility] Thyrotropin [Units/volume] i n Serum or PlasmaOrdered By: Neto Arauz on 12-13-2022 TSH Qn 0.12 m[IU]/L 0.45-5.33 [facility] Triglyceride [Mass/volume] i n Serum or PlasmaOrdered By: Neto Arauz on 12-13-2022 Triglyceride [Mass/Vol] 74 mg/dL 0-149 [facility] Comment on above: TRIG ATP III CLASSIF ICATIONTRIG less than 150 mg/dL NormalTRIG 150-199 mg/dL Borderline highTRIG 200-500 mg/dL High TRIG greater than 500 mg/dL Very highStandard traceable to the Center for Disease Conrtrol and Prevention (CDC) test method. Urea nitrogen [Mass/volume] in Serum or PlasmaOrdered By: Neto Arauz on 12-13-2022 Urea nitrogen [Mass/Vol] 26 mg/dL 09-28 [facility] WBC Auto (Bld) [#/Vol]Ordere d By: Neto Arauz on 12-13-2022 WBC (Bld) [#/Vol] 7.4 10*3/uL 3.8-11.6 [facility] Alanine aminotransferase [En zymatic activity/volume] in Serum or PlasmaOrdered By: Que Cam on 09-02-2022 ALT [Catalytic activity/Vol] 12 U/L [facility] Albumin [Mass/volume] in Ser um or Plasma by Bromocresol green (BCG) dye binding methoOrdered By: Que Cam on 09-02-2022 Albumin BCG dye [Mass/Vol] 4.2 g/dL 3.5-5.7 [facility] Alkaline phosphatase [Enzyma tic activity/volume] in Serum or PlasmaOrdered By: Que Cam on 09-02-2022 ALP [Catalytic activity/Vol] 100 U/L 34-104 [facility] Aspartate aminotransferase [ Enzymatic activity/volume] in Serum or PlasmaOrdered By: Que Cam on 09-02-2022 AST [Catalytic activity/Vol] 18 U/L 13-39 [facility] Basophils Auto (Bld) [#/Vol] Ordered By: Que Cam on 09-02-2022 Basophils (Bld) [#/Vol] 0.1 10*3/uL 0.0-0.2 [facility] Basophils/100 WBC Auto (Bld) Ordered By: Que Cam on 09-02-2022 Basophils/100 WBC (Bld) 1.5 % . [facility] Bilirubin.total [Mass/volume ] in Serum or PlasmaOrdered By: Que Cam on 09-02-2022 Bilirubin [Mass/Vol] 0.7 mg/dL 0.3-1.0 [facility] Calcium [Mass/volume] in Ser um or PlasmaOrdered By: Que Cam on 09-02-2022 Calcium [Mass/Vol] 9.1 mg/dL 8.6-10.3 [facility] Carbon dioxide, total [Moles /volume] in Serum or PlasmaOrdered By: Que Cam on 09-02-2022 CO2 [Moles/Vol] 31.2 mmol/L 21.0-31.0 [facility] Chloride [Moles/volume] in S cait or PlasmaOrdered By: Que Cam on 09-02-2022 Chloride [Moles/Vol] 96 mmol/L 98-107 [facility] Creatinine [Mass/volume] in Serum or PlasmaOrdered By: Que Cam on 09-02-2022 Creatinine [Mass/Vol] 1.01 mg/dL 0.60-1.20 [facility] Eosinophils Auto (Bld) [#/Vo l]Ordered By: Que Cam on 09-02-2022 Eosinophils (Bld) [#/Vol] 0.1 10*3/uL 0.0-0.45 [facility] Eosinophils/100 WBC Auto (Bl d)Ordered By: Que Cam on 09-02-2022 Eosinophils/100 WBC (Bld) 1.8 % . [facility] Erythrocyte distribution wid th Auto (RBC) [Ratio]Ordered By: Que Cam on 09-02-2022 Erythrocyte distribution width (RBC) [Ratio] 13.7 % 11.9-15.3 [facility] Ethanol [Mass/volume] in Ser um or PlasmaOrdered By: Que Cam on 09-02-2022 Ethanol [Mass/Vol] mg/dL [facility] Ethanol [Mass/Vol] TNP [facility] Comment on above: Test not performed Globulin Calc (S) [Mass/Vol] Ordered By: Que Cam on 09-02-2022 Globulin (S) [Mass/Vol] 3.0 g/dL [facility] Glucose [Mass/volume] in Ser um or PlasmaOrdered By: Que Cam on 09-02-2022 Glucose [Mass/Vol] 86 mg/dL 70-100 [facility] Comment on above: ADA recommended refe rence rangeRandom Glucose Reference Range is dependent on time and content of last meal. Glucose of more than 200 mg/dL in a nonstressed, ambulatory subject supports the diagnosis of Diabetes Mellitus. Hematocrit Auto (Bld) [Volum e fraction]Ordered By: Que Cam on 09-02-2022 Hematocrit (Bld) [Volume fraction] 41.7 % 34.0-46.4 [facility] Hemoglobin [Mass/volume] in BloodOrdered By: Que Cam on 09-02-2022 Hemoglobin (Bld) [Mass/Vol] 13.9 g/dL 11.8-15.4 [facility] Leukocytes [#/volume] correc hugh for nucleated erythrocytes in Blood by Automated counOrdered By: Que Cam on 09-02-2022 WBC corrected for nucl RBC Auto (Bld) [#/Vol] 7.5 10*3/uL 3.8-11.6 [facility] Lymphocytes Auto (Bld) [#/Vo l]Ordered By: Que Cam on 09-02-2022 Lymphocytes (Bld) [#/Vol] 1.8 10*3/uL 1.00-4.8 [facility] Lymphocytes/100 WBC Auto (Bl d)Ordered By: Que Cam on 09-02-2022 Lymphocytes/100 WBC (Bld) 24.6 % . [facility] MCH Auto (RBC) [Entitic mass ]Ordered By: Que Cam on 09-02-2022 MCH (RBC) [Entitic mass] 29.9 pg 24.7-34.3 [facility] MCHC Auto (RBC) [Mass/Vol]Or dered By: Que Cam on 09-02-2022 MCHC (RBC) [Mass/Vol] 33.2 g/dL 32.0-35.0 [facility] MCV Auto (RBC) [Entitic vol] Ordered By: Que Cam on 09-02-2022 MCV (RBC) [Entitic vol] 90.2 fL 80-100 [facility] Monocyte distribution width [Entitic volume] in Blood by AutomatedOrdered By: Que Cam on 09-02-2022 Monocyte distribution width Auto (Bld) [Entitic vol] 18.71 % 0.00-20.00 [facility] Monocytes Auto (Bld) [#/Vol] Ordered By: Que Cam on 09-02-2022 Monocytes (Bld) [#/Vol] 0.7 10*3/uL 0.0-0.8 [facility] Monocytes/100 WBC Auto (Bld) Ordered By: Que Cam on 09-02-2022 Monocytes/100 WBC (Bld) 8.7 % . [facility] Neutrophils Auto (Bld) [#/Vo l]Ordered By: Que Cam on 09-02-2022 Neutrophils (Bld) [#/Vol] 4.7 10*3/uL 1.8-7.7 [facility] Neutrophils/100 WBC Auto (Bl d)Ordered By: Que Cam on 09-02-2022 Neutrophils/100 WBC (Bld) 63.4 % . [facility] No Panel InformationOrdered By: Que Cam on 09-02-2022 Estimated GFR (CKD-EPI) > 60.0 mL/Min [facility] Creatinine Clearance (Chem 45.40 [facility] Nucleated erythrocytes [Pres ence] in Blood by Automated countOrdered By: Que Cam on 09-02-2022 Nucleated RBC Auto Ql (Bld) 0.1 /100{WBC} 0-0.5 [facility] Platelet mean volume Auto (B ld) [Entitic vol]Ordered By: Que Cam on 09-02-2022 Platelet mean volume (Bld) [Entitic vol] 7.9 fL 6.3-10.7 [facility] Platelets Auto (Bld) [#/Vol] Ordered By: Que Cam on 09-02-2022 Platelets (Bld) [#/Vol] 252 10*3/uL 150-450 [facility] Potassium [Moles/volume] in Serum or PlasmaOrdered By: Que Cam on 09-02-2022 Potassium [Moles/Vol] 3.8 mmol/L 3.5-5.1 [facility] Protein [Mass/volume] in Ser um or PlasmaOrdered By: Que Cam on 09-02-2022 Protein [Mass/Vol] 7.2 g/dL 6.4-8.9 [facility] RBC Auto (Bld) [#/Vol]Ordere d By: Que Cam on 09-02-2022 RBC (Bld) [#/Vol] 4.63 10*6/uL 3.60-5.00 [facility] Serum or plasma albumin/glob ulin mass ratioOrdered By: Que Cam on 09-02-2022 Albumin/Globulin [Mass ratio] 1.4 {ratio} [facility] Serum or plasma anion gap de terminationOrdered By: Que Cam on 09-02-2022 Anion gap [Moles/Vol] TNP [facility] Comment on above: Test not performed Sodium [Moles/volume] in Ser um or PlasmaOrdered By: Que Cam on 09-02-2022 Sodium [Moles/Vol] 137 mmol/L 136-145 [facility] Urea nitrogen [Mass/volume] in Serum or PlasmaOrdered By: Que Cam on 09-02-2022 Urea nitrogen [Mass/Vol] 13 mg/dL 7-25 [facility] WBC Auto (Bld) [#/Vol]Ordere d By: Que Cam on 09-02-2022 WBC (Bld) [#/Vol] 7.5 10*3/uL 3.8-11.6 [facility] COVID-19 SOFIAOrdered By: Gm Norris on 08-29-2022 SARS-CoV+SARS-CoV-2 (COVID-19) Ag IA.rapid Ql (Resp) Negative Negative [facility] Comment on above: This is a duplicate Diya SARS Antigen (LAMONT) result to be used for statistical tracking purpose only. Creatine kinase [Enzymatic a ctivity/volume] in Serum or PlasmaOrdered By: Lucian Bruno on 08-29-2022 CK [Catalytic activity/Vol] 73 U/L 30 [facility] - Microbiology an d Antimicrobial susceptibilityon 08-29-2022 SARS-CoV-2 (COVID-19) RNA MITCHELL+probe Ql (Unsp spec) [facility] y [address] DO Work Phone: No Panel InformationOrdered By: Ferdinand Norris on 08-29-2022 SARS Antigen (LFIA) [facility] Troponin I.cardiac [Mass/vol ume] in Serum or Plasma by Detection limit <= 0.01 ng/Ordered By: Lucian Bruno on 08-29-2022 Troponin I.cardiac DL <= 0.01 ng/mL [Mass/Vol] 30.8 pg/mL 0.0-15.0 [facility] Alanine aminotransferase [En zymatic activity/volume] in Serum or PlasmaOrdered By: Niranjan Hi on 08-28-2022 ALT [Catalytic activity/Vol] 10 U/L 7-52 [facility] Albumin [Mass/volume] in Ser um or Plasma by Bromocresol green (BCG) dye binding methoOrdered By: Niranjan Hi on 08-28-2022 Albumin BCG dye [Mass/Vol] 4.2 g/dL 3.5-5.7 [facility] Alkaline phosphatase [Enzyma tic activity/volume] in Serum or PlasmaOrdered By: Niranjan Hi on 08-28-2022 ALP [Catalytic activity/Vol] 104 U/L 34-104 [facility] Aspartate aminotransferase [ Enzymatic activity/volume] in Serum or PlasmaOrdered By: Niranjan Hi on 08-28-2022 AST [Catalytic activity/Vol] 15 U/L 13-39 [facility] Basophils Auto (Bld) [#/Vol] Ordered By: Niranjan Hi on 08-28-2022 Basophils (Bld) [#/Vol] 0.1 10*3/uL 0.0-0.2 [facility] Basophils/100 WBC Auto (Bld) Ordered By: Niranjan Hi on 08-28-2022 Basophils/100 WBC (Bld) 0.6 % . [facility] Bilirubin.direct [Mass/volum e] in Serum or PlasmaOrdered By: Niranjan Hi on 08-28-2022 Bilirubin.direct [Mass/Vol] 0.10 mg/dL 0.03-0.18 [facility] Bilirubin.total [Mass/volume ] in Serum or PlasmaOrdered By: Niranjan Hi on 08-28-2022 Bilirubin [Mass/Vol] 0.6 mg/dL 0.3-1.0 [facility] Calcium [Mass/volume] in Ser um or PlasmaOrdered By: Niranjan Hi on 08-28-2022 Calcium [Mass/Vol] 9.1 mg/dL 8.6-10.3 [facility] Carbon dioxide, total [Moles /volume] in Serum or PlasmaOrdered By: Niranjan Hi on 08-28-2022 CO2 [Moles/Vol] 35.9 mmol/L 21.0-31.0 [facility] Chloride [Moles/volume] in S cait or PlasmaOrdered By: Niranjan Hi on 08-28-2022 Chloride [Moles/Vol] 98 mmol/L 98-107 [facility] Creatine kinase [Enzymatic a ctivity/volume] in Serum or PlasmaOrdered By: Niranjan Hi on 08-28-2022 CK [Catalytic activity/Vol] 89 U/L 30-223 [facility] Creatinine [Mass/volume] in Serum or PlasmaOrdered By: Niranjan Hi on 08-28-2022 Creatinine [Mass/Vol] 1.00 mg/dL 0.60-1.20 [facility] Eosinophils Auto (Bld) [#/Vo l]Ordered By: Niranjan Hi on 08-28-2022 Eosinophils (Bld) [#/Vol] 0.0 10*3/uL 0.0-0.45 [facility] Eosinophils/100 WBC Auto (Bl d)Ordered By: Niranjan Hi on 08-28-2022 Eosinophils/100 WBC (Bld) 0.3 % . [facility] Erythrocyte distribution wid th Auto (RBC) [Ratio]Ordered By: Niranjan Hi on 08-28-2022 Erythrocyte distribution width (RBC) [Ratio] 14.0 % 11.9-15.3 [facility] Globulin Calc (S) [Mass/Vol] Ordered By: Niranjan Hi on 08-28-2022 Globulin (S) [Mass/Vol] 3.0 g/dL [facility] Glucose [Mass/volume] in Ser um or PlasmaOrdered By: Niranjan Hi on 08-28-2022 Glucose [Mass/Vol] 93 mg/dL 70-100 [facility] Comment on above: ADA recommended refe rence rangeRandom Glucose Reference Range is dependent on time and content of last meal. Glucose of more than 200 mg/dL in a nonstressed, ambulatory subject supports the diagnosis of Diabetes Mellitus. Hematocrit Auto (Bld) [Volum e fraction]Ordered By: Niranjan Hi on 08-28-2022 Hematocrit (Bld) [Volume fraction] 43.1 % 34.0-46.4 [facility] Hemoglobin [Mass/volume] in BloodOrdered By: Niranjan Hi on 08-28-2022 Hemoglobin (Bld) [Mass/Vol] 14.1 g/dL 11.8-15.4 [facility] Leukocytes [#/volume] correc hugh for nucleated erythrocytes in Blood by Automated counOrdered By: Niranjan Hi on 08-28-2022 WBC corrected for nucl RBC Auto (Bld) [#/Vol] 8.2 10*3/uL 3.8-11.6 [facility] Lipase [Enzymatic activity/v olume] in Serum or PlasmaOrdered By: Niranjan Hi on 08-28-2022 Lipase [Catalytic activity/Vol] 59.0 U/L 11.0-82.0 [facility] Lymphocytes Auto (Bld) [#/Vo l]Ordered By: Niranjan Hi on 08-28-2022 Lymphocytes (Bld) [#/Vol] 1.1 10*3/uL 1.00-4.8 [facility] Lymphocytes/100 WBC Auto (Bl d)Ordered By: Niranjan Hi on 08-28-2022 Lymphocytes/100 WBC (Bld) 13.8 % . [facility] MCH Auto (RBC) [Entitic mass ]Ordered By: Niranjan Hi on 08-28-2022 MCH (RBC) [Entitic mass] 29.9 pg 24.7-34.3 [facility] MCHC Auto (RBC) [Mass/Vol]Or dered By: Niranjan Hi on 08-28-2022 MCHC (RBC) [Mass/Vol] 32.8 g/dL 32.0-35.0 [facility] MCV Auto (RBC) [Entitic vol] Ordered By: Niranjan Hi on 08-28-2022 MCV (RBC) [Entitic vol] 91.3 fL 80-100 [facility] Monocyte distribution width [Entitic volume] in Blood by AutomatedOrdered By: Niranjan Hi on 08-28-2022 Monocyte distribution width Auto (Bld) [Entitic vol] 15.82 % 0.00-20.00 [facility] Monocytes Auto (Bld) [#/Vol] Ordered By: Niranjan Hi on 08-28-2022 Monocytes (Bld) [#/Vol] 0.6 10*3/uL 0.0-0.8 [facility] Monocytes/100 WBC Auto (Bld) Ordered By: Niranjan Hi on 08-28-2022 Monocytes/100 WBC (Bld) 7.2 % . [facility] Neutrophils Auto (Bld) [#/Vo l]Ordered By: Niranjan Hi on 08-28-2022 Neutrophils (Bld) [#/Vol] 6.4 10*3/uL 1.8-7.7 [facility] Neutrophils/100 WBC Auto (Bl d)Ordered By: Niranjan Hi on 08-28-2022 Neutrophils/100 WBC (Bld) 78.1 % . [facility] No Panel InformationOrdered By: Niranjan Hi on 08-28-2022 Estimated GFR (CKD-EPI) > 60.0 mL/Min [facility] Creatinine Clearance (Chem 45.85 [facility] Nucleated erythrocytes [Pres ence] in Blood by Automated countOrdered By: Niranjan Hi on 08-28-2022 Nucleated RBC Auto Ql (Bld) 0.1 /100{WBC} 0-0.5 [facility] Platelet mean volume Auto (B ld) [Entitic vol]Ordered By: Niranjan Hi on 08-28-2022 Platelet mean volume (Bld) [Entitic vol] 8.5 fL 6.3-10.7 [facility] Platelets Auto (Bld) [#/Vol] Ordered By: Niranjan Hi on 08-28-2022 Platelets (Bld) [#/Vol] 238 10*3/uL 150-450 [facility] Potassium [Moles/volume] in Serum or PlasmaOrdered By: Niranjan Hi on 08-28-2022 Potassium [Moles/Vol] 3.3 mmol/L 3.5-5.1 [facility] Protein [Mass/volume] in Ser um or PlasmaOrdered By: Niranjan Hi on 08-28-2022 Protein [Mass/Vol] 7.2 g/dL 6.4-8.9 [facility] RBC Auto (Bld) [#/Vol]Ordere d By: Niranjan Hi on 08-28-2022 RBC (Bld) [#/Vol] 4.72 10*6/uL 3.60-5.00 [facility] Serum or plasma albumin/glob ulin mass ratioOrdered By: Niranjan Hi on 08-28-2022 Albumin/Globulin [Mass ratio] 1.4 {ratio} [facility] Serum or plasma anion gap de terminationOrdered By: Niranjan Hi on 08-28-2022 Anion gap [Moles/Vol] 12.4 mmol/L 6.0-15.0 [facility] Serum or plasma non-glucuron idated bilirubin measurement (mass/volume)Ordered By: Niranjan Hi on 08-28-2022 Bilirubin.indirect [Mass/Vol] 0.5 mg/dL [facility] Sodium [Moles/volume] in Ser um or PlasmaOrdered By: Niranjan Hi on 08-28-2022 Sodium [Moles/Vol] 143 mmol/L 136-145 [facility] Troponin I.cardiac [Mass/vol ume] in Serum or Plasma by Detection limit <= 0.01 ng/Ordered By: Niranjan Hi on 08-28-2022 Troponin I.cardiac DL <= 0.01 ng/mL [Mass/Vol] 33.3 pg/mL 0.0-15.0 [facility] Urea nitrogen [Mass/volume] in Serum or PlasmaOrdered By: Niranjan Hi on 08-28-2022 Urea nitrogen [Mass/Vol] 17 mg/dL 09-28 [facility] WBC Auto (Bld) [#/Vol]Ordere d By: Niranjan Hi on 08-28-2022 WBC (Bld) [#/Vol] 8.2 10*3/uL 3.8-11.6 [facility] A1C HEMOGLOBINon 06-29-2022 HbA1c (Bld) [Mass fraction] 5.0 % [employer] Other HbA1c (Bld) [Mass fraction]o n 06-29-2022 A1C HEMOGLOBIN [employer] Other A1C HEMOGLOBINon 03-04-2022 HbA1c (Bld) [Mass fraction] 4.9 % [employer] Other HbA1c (Bld) [Mass fraction]o n 03-04-2022 A1C HEMOGLOBIN [employer] Other A1C HEMOGLOBINon 09-17-2021 HbA1c (Bld) [Mass fraction] 5.1 % [employer] Other HbA1c (Bld) [Mass fraction]o n 09-17-2021 A1C HEMOGLOBIN [employer] Other CBC AUTO DIFFon 03-22-2021 BASO # 0.0 103/ul Normal 0.0-0.1 [facility] Comment on above: Performed By: #### C BC #### [facility] [address] [place] [address] Dr. Buddy Palmer Basophils/100 WBC (Bld) 0.5 % Normal 0.2-2.0 [facility] Comment on above: Performed By: #### C BC #### [facility] [address] [place] [address] Dr. Buddy Palmer EO # 0.1 103/ul Normal 0.0-0.7 [facility] Comment on above: Performed By: #### C BC #### [facility] [address] [place] [address] Dr. Buddy Palmer Eosinophils/100 WBC (Bld) 1.3 % Normal 0.9-7.0 [facility] Comment on above: Performed By: #### C BC #### [facility] [address] [place] [address] Dr. Buddy Palmer Erythrocyte distribution width (RBC) [Ratio] 13.6 % Normal 11.0-15.0 [facility] Comment on above: Performed By: #### C BC #### [facility] [address] [place] [address] Dr. Buddy Palmer Hematocrit (Bld) [Volume fraction] 46.4 % Normal 36.0-48.0 [facility] Comment on above: Performed By: #### C BC #### [facility] [address] [place] [address] Dr. Buddy Palmer Hemoglobin (Bld) [Mass/Vol] 15.1 g/dL Normal 12.0-16.0 [facility] Comment on above: Performed By: #### C BC #### [facility] [address] [place] [address] Dr. Buddy Palmer IG # 0.02 10e3/ul Normal 0.00-0.03 [facility] Comment on above: Performed By: #### C BC #### [facility] [address] [place] [address] Dr. Buddy Palmer IG % 0.3 % Normal 0.0-0.5 [facility] Comment on above: Performed By: #### C BC #### [facility] [address] [place] [address] Dr. Buddy Palmer LYMPH # 2.4 103/ul Normal 1.2-3.8 [facility] Comment on above: Performed By: #### C BC #### [facility] [address] [place] [address] Dr. Buddy Palmer Lymphocytes/100 WBC (Bld) 32.1 % Normal 20.5-60.0 [facility] Comment on above: Performed By: #### C BC #### [facility] [address] [place] [address] Dr. Buddy Palmer MANUAL DIFF REQ NO Normal [facility] Comment on above: Performed By: #### C BC #### [facility] [address] [place] [address] Dr. Buddy Palmer MCH (RBC) [Entitic mass] 30.2 pg Normal 26.7-34.0 [facility] Comment on above: Performed By: #### C BC #### [facility] [address] [place] [address] Dr. Buddy Palmer MCHC (RBC) [Mass/Vol] 32.5 g/dL Normal 29.9-35.2 [facility] Comment on above: Performed By: #### C BC #### [facility] [address] [place] [address] Dr. Buddy Palmer MCV (RBC) [Entitic vol] 92.8 fL Normal 81.0-99.0 [facility] Comment on above: Performed By: #### C BC #### [facility] [address] [place] [address] Dr. Buddy Palmer MONO # 0.5 103/ul Normal 0.3-0.8 [facility] Comment on above: Performed By: #### C BC #### [facility] [address] [place] [address] Dr. Buddy Palmer Monocytes/100 WBC (Bld) 6.1 % Normal 1.7-12.0 [facility] Comment on above: Performed By: #### C BC #### [facility] [address] [place] [address] Dr. Buddy Palmer NEUT # 4.5 103/ul Normal 1.4-6.5 [facility] Comment on above: Performed By: #### C BC #### [facility] [address] [place] [address] Dr. Buddy Palmer Neutrophils/100 WBC (Bld) 59.7 % Normal 43.0-75.0 [facility] Comment on above: Performed By: #### C BC #### [facility] [address] [address] [address] Buddy Palmer Platelet mean volume (Bld) [Entitic vol] 10.9 fL Normal 9.5-13.5 [facility] Comment on above: Performed By: #### C BC #### [facility] [address] [address] [address] Buddy Palmer PLT 207 103/ul Normal 150-450 [facility] Comment on above: Performed By: #### C BC #### [facility] [address] [address] [address] Buddy Palmer RBC 5.00 106/ul Normal 4.20-5.40 [facility] Comment on above: Performed By: #### C BC #### [facility] [address] [address] [address] Buddy Palmer WBC 7.6 103/ul Normal 4.0-11.0 [facility] Comment on above: Performed By: #### C BC #### [facility] [address] [place], [place] [id number] Dr. Buddy Palmer CT HEAD WO CONon [...] BUSTER RAMIREZ Date: 2021-03-22 00:19 Normal [facility] PROF 14(COMP METB)on 022 Albumin [Mass/Vol] 4.0 g/dL Normal 3.5-5.0 [facility] Comment on above: Performed By: #### C MP #### [facility] [address] [place] [address] Dr. Buddy Palmer Albumin/Globulin [Mass ratio] 1.0 {ratio} Normal [facility] Comment on above: Performed By: #### C MP #### [facility] [address] [place] [address] Dr. Buddy Palmer ALP [Catalytic activity/Vol] 131 U/L Critically high 38-126 [facility] Comment on above: Performed By: #### C MP #### [facility] [address] [place] [address] Dr. Buddy Palmer ALT [Catalytic activity/Vol] 22 U/L Normal 9-52 [facility] Comment on above: Performed By: #### C MP #### [facility] [address] [place] [address] Dr. Buddy Palmer Anion gap [Moles/Vol] 9.9 mmol/L Normal [facility] Comment on above: Performed By: #### C MP #### [facility] [address] [place] [address] Dr. Buddy Palmer AST [Catalytic activity/Vol] 26 U/L Normal 14-36 [facility] Comment on above: Performed By: #### C MP #### [facility] [address] [place] [address] Dr. Buddy Palmer Bilirubin [Mass/Vol] 0.4 mg/dL Normal 0.2-1.3 [facility] Comment on above: Performed By: #### C MP #### [facility] [address] [address] [address] Buddy Palmer Calcium [Mass/Vol] 9.6 mg/dL Normal 8.4-10.2 [facility] Comment on above: Performed By: #### C MP #### [facility] [address] [place] [address] Dr. Buddy Palmer Chloride [Moles/Vol] 96 mmol/L Critically low 98-107 [facility] Comment on above: Performed By: #### C MP #### [facility] [address] [address] [address] Buddy Palmer CO2 [Moles/Vol] 34.4 mmol/L Critically high 22.0-30.0 [facility] Comment on above: Performed By: #### C MP #### [facility] [address] [place] [address] Dr. Buddy Palmer Creatinine [Mass/Vol] 1.46 mg/dL Critically high 0.52-1.04 [facility] Comment on above: Performed By: #### C MP #### [facility] [address] [place] [address] Dr. Buddy Palmer EGFR-AF MALAYSIAN 43 mL/min/1.73m2 Critically low >=60 [facility] Comment on above: Performed By: #### C MP #### [facility] [address] [place] [address] Dr. Buddy Palmer EGFR-NON AF MALAYSIAN 36 mL/min/1.73m2 Critically low >=60 [facility] Comment on above: Performed By: #### C MP #### [facility] [address] [place] [address] Dr. Buddy Palmer Globulin (S) [Mass/Vol] 4.0 g/dL Normal [facility] Comment on above: Performed By: #### C MP #### [facility] [address] [place] [address] Dr. Buddy Palmer Glucose [Mass/Vol] 100 mg/dL Normal 74-106 [facility] Comment on above: Performed By: #### C MP #### [facility] [address] [place] [address] Dr. Buddy Palmer Potassium [Moles/Vol] 4.3 mmol/L Normal 3.4-5.0 [facility] Comment on above: Performed By: #### C MP #### [facility] [address] [place] [address] Dr. Buddy Palmer Protein [Mass/Vol] 8.0 g/dL Normal 6.1-8.2 [facility] Comment on above: Performed By: #### C MP #### [facility] [address] [address] [address] Buddy Palmer Sodium [Moles/Vol] 136 mmol/L Critically low 137-145 [facility] Comment on above: Performed By: #### C MP #### [facility] [address] [place] [address] Dr. Buddy Palmer Urea nitrogen [Mass/Vol] 31.0 mg/dL Critically high 7.0-17.0 [facility] Comment on above: Performed By: #### C MP #### [facility] [address] [place] [address] Dr. Buddy Palmer Urea nitrogen/Creatinine [Mass ratio] 21.2 mg/mg Normal [facility] Comment on above: Performed By: #### C MP #### [facility] [address] [place] [address] Dr. Buddy Palmer PROTIMEon 03-22-2021 INR Coag (PPP) [Relative time] 0.98 {INR} Normal [facility] Comment on above: Performed By: #### P T, PTT #### [facility] [address] [place] [address] Dr. Buddy Palmer INR GUIDELINES SEE BELOW Normal [facility] Comment on above: Result Comment: KEITH RED INR: 2.0 - 3.0 CONDITIONS NOT LISTED BELOW 2.5 - 3.5 FOR PROSTHETIC HEART VALVE REPLACEMENT 2.5 - 3.5 RECURRENT THROMBOSIS Performed By: #### P T, PTT #### [facility] [address] [place] [address] Dr. Buddy Palmer PT Coag (PPP) [Time] 10.6 s Normal 9.0-11.6 [facility] Comment on above: Performed By: #### P T, PTT #### [facility] [address] [id number] Buddy Palmer PTTon 03-22-2021 aPTT Coag (Bld) [Time] 28.8 s Normal 22.3-36.2 [facility] Comment on above: Performed By: #### P T, PTT #### [facility] [address] [address] [address] Buddy Palmer A1C HEMOGLOBINon 01-15-2021 HbA1c (Bld) [Mass fraction] 5.1 % [facility] [employer] Other HbA1c (Bld) [Mass fraction]o n 01-15-2021 A1C HEMOGLOBIN [facility] [employer] Other Vital Signs Date Time Vital Sign Value Performing Clinician Facility 03-28-2024 16:00-0500 Inhaled oxygen flow rate 5 L/min Neto Arauz DO Work Phone: [facility] 03-28-2024 15:50-0500 Body temperature 97.6 [degF] Neto Ruggieros DO Work Phone: [facility] 03-28-2024 15:50-0500 Diastolic blood pressure 59 mm[Hg] Neto Ruggieros DO Work Phone: [facility] 03-28-2024 15:50-0500 Heart rate 76 /min Neto Ruggieros DO Work Phone: [facility] 03-28-2024 15:50-0500 Respiratory rate 18 /min Neto Ruggieros DO Work Phone: [facility] 03-28-2024 15:50-0500 SaO2% (BldA) [Mass fraction] 98 % Neto Ruggieros DO Work Phone: [facility] 03-28-2024 15:50-0500 Systolic blood pressure 125 mm[Hg] Neto Ruggieros DO Work Phone: [facility] 03-28-2024 04:51-0500 Body weight 83.1 kg Netobayron Ruggieros DO Work Phone: [facility] 2024 14:43-0500 Body height 162.56 cm Neto Bahmans DO Work Phone: [facility] 03-24-2024 19:36-0500 Diastolic blood pressure 81 mm[Hg] Neto Bahmans DO Work Phone: [facility] 03-24-2024 19:36-0500 Heart rate 74 /min Netobayron Ruggieros DO Work Phone: [facility] 03-24-2024 19:36-0500 Inhaled oxygen flow rate 6 L/min Neto Ruggieros DO Work Phone: [facility] 03-24-2024 19:36-0500 Respiratory rate 20 /min Neto Ruggieros DO Work Phone: [facility] 03-24-2024 19:36-0500 SaO2% (BldA) [Mass fraction] 94 % Netobayron Ruggieros DO Work Phone: [facility] 03-24-2024 19:36-0500 Systolic blood pressure 167 mm[Hg] Neto Ruggieros DO Work Phone: [facility] 03-24-2024 16:13-0500 Body temperature 98.3 [degF] Netobayron Ruggieros DO Work Phone: [facility] 03-24-2024 13:46-0500 Body height 162.56 cm Netobayron Ruggieros DO Work Phone: [facility] 03-24-2024 13:46-0500 Body weight 85.3 kg Netobayron Ruggieros DO Work Phone: [facility] 03-22-2024 11:27-0500 Blood Pressure Location KAELYN ROY [facility] 03-22-2024 11:27-0500 Body temperature 98.6 [degF] KAELYN MANUELA [facility] 03-22-2024 11:27-0500 Diastolic blood pressure 77 mm[Hg] KAELYN MANUEAL [facility] 03-22-2024 11:27-0500 Heart rate 70 /min KAELYN MANUELA [facility] 03-22-2024 11:27-0500 Respiratory rate 18 /min KAELYN MANUELA [facility] 03-22-2024 11:27-0500 Systolic blood pressure 125 mm[Hg] KAELYN MANUELA [facility] 03-18-2024 12:04-0500 Diastolic blood pressure 69 mm[Hg] Neto Arauz DO Work Phone: [facility] 03-18-2024 12:04-0500 Heart rate 67 /min Neto Ruggieros DO Work Phone: [facility] 03-18-2024 12:04-0500 Inhaled oxygen flow rate 4 L/min Neto Ruggieros DO Work Phone: [facility] 03-18-2024 12:04-0500 Respiratory rate 18 /min Neto Ruggieros DO Work Phone: [facility] 03-18-2024 12:04-0500 SaO2% (BldA) [Mass fraction] 95 % Neto Ruggieros DO Work Phone: [facility] 03-18-2024 12:04-0500 Systolic blood pressure 166 mm[Hg] Neto Ruggieros DO Work Phone: [facility] 03-18-2024 08:05-0500 Body temperature 98.2 [degF] Neto Ruggieros DO Work Phone: [facility] 03-18-2024 06:00-0500 Body weight 80.4 kg Neto Ruggieros DO Work Phone: [facility] 03-16-2024 00:31-0500 Body height 162.56 cm Neto Ruggieros DO Work Phone: [facility] 03-15-2024 23:31-0500 Diastolic blood pressure 102 mm[Hg] Neto Ruggieros DO Work Phone: [facility] 03-15-2024 23:31-0500 Heart rate 69 /min Neto Ruggieros DO Work Phone: [facility] 03-15-2024 23:31-0500 Inhaled oxygen flow rate 6 L/min Neto Ruggieros DO Work Phone: [facility] 03-15-2024 23:31-0500 Respiratory rate 28 /min Neto Ruggieros DO Work Phone: [facility] 03-15-2024 23:31-0500 SaO2% (BldA) [Mass fraction] 92 % Neto Ruggieros DO Work Phone: [facility] 03-15-2024 23:31-0500 Systolic blood pressure 145 mm[Hg] Netobayron Ruggieros DO Work Phone: [facility] 03-15-2024 16:57-0500 Body height 162.56 cm Neto Ruggieros DO Work Phone: [facility] 03-15-2024 16:57-0500 Body weight 77.11 kg Neto Ruggieros DO Work Phone: [facility] 03-15-2024 16:56-0500 Body temperature 98.1 [degF] Netobayron Ruggieros DO Work Phone: [facility] 03-04-2024 12:34-0500 Heart rate 71 /min Neto Arauz DO Work Phone: [facility] 03-04-2024 12:34-0500 Respiratory rate 20 /min Neto Arauz DO Work Phone: [facility] 03-04-2024 12:00-0500 Body temperature 98.1 [degF] Neto Arauz DO Work Phone: [facility] 03-04-2024 12:00-0500 Diastolic blood pressure 56 mm[Hg] Neto Arauz DO Work Phone: [facility] 03-04-2024 12:00-0500 Inhaled oxygen flow rate 5 L/min Neto Arauz DO Work Phone: [facility] 03-04-2024 12:00-0500 SaO2% (BldA) [Mass fraction] 97 % Neto Arauz DO Work Phone: [facility] 03-04-2024 12:00-0500 Systolic blood pressure 119 mm[Hg] Neto Arauz DO Work Phone: [facility] 03-04-2024 06:00-0500 Body weight 81.3 kg Neto Arauz DO Work Phone: [facility] 03-02-2024 01:12-0500 Inhaled oxygen concentration 35 % Neto Arauz DO Work Phone: [facility] 03-01-2024 15:08-0500 Body height 162.56 cm Neto Arauz DO Work Phone: [facility] 01-25-2024 11:16-0500 Body height 162.56 cm Sandor Mcduffie [facility] 01-25-2024 11:16-0500 Body mass index (BMI) [Ratio] 29.7 kg/m2 Sandor Mcduffie [facility] 01-25-2024 11:16-0500 Body weight 78.47 kg Sandor Mcduffie [facility] 01-25-2024 11:16-0500 Diastolic blood pressure 58 mm[Hg] Sandor Mcduffie [facility] 01-25-2024 11:16-0500 Heart rate 70 /min Sandor Mcduffie [facility] 01-25-2024 11:16-0500 Inhaled oxygen flow rate 6 L/min Sandor Mcduffie [facility] 01-25-2024 11:16-0500 SaO2% (BldA) [Mass fraction] 94 % Sandor Mcduffie [facility] 01-25-2024 11:16-0500 Systolic blood pressure 130 mm[Hg] Sandor Mcduffie [facility] 01-24-2024 10:42-0500 Body height 162.56 cm Sandor Mcduffie [facility] 01-24-2024 10:42-0500 Body mass index (BMI) [Ratio] 29.7 kg/m2 Sandor Mcduffie [facility] 01-24-2024 10:42-0500 Body temperature 97.6 [degF] Sandor Mcduffie [facility] 01-24-2024 10:42-0500 Body weight 78.47 kg Sandor Mcduffie [facility] 01-24-2024 10:42-0500 Diastolic blood pressure 67 mm[Hg] Sandor Mcduffie [facility] 01-24-2024 10:42-0500 Heart rate 68 /min Sandor Mcduffie [facility] 01-24-2024 10:42-0500 Inhaled oxygen flow rate 5 L/min Sandor Mcduffie [facility] 01-24-2024 10:42-0500 Respiratory rate 20 /min Sandor Mcduffie [facility] 01-24-2024 10:42-0500 SaO2% (BldA) [Mass fraction] 95 % Sandor Mcduffie [facility] 01-24-2024 10:42-0500 Systolic blood pressure 124 mm[Hg] Sandor Mcduffie [facility] 01-06-2024 14:11-0400 Body height 162.6 cm Ferdinand Galdamez DO Work Phone: [facility] 01-06-2024 [id number] Body mass index (BMI) [Ratio] 29.87 kg/m2 Ferdinand Galdamez DO Work Phone: [facility] 01-06-2024 14:11040 Body weight 78.93 kg Ferdinand Galdamez DO Work Phone: [facility] 01-06-2024 [id number] Diastolic blood pressure 74 mm[Hg] Ferdinand Galdamez DO Work Phone: [facility] 01-06-2024 [id number]:[id number] Heart rate 68 /min Ferdinand Galdamez DO Work Phone: [facility] 01-06-2024 [id number] Systolic blood pressure 150 mm[Hg] Ferdinand Galdamez DO Work Phone: [facility] 11-24-2023 00:20-0400 Diastolic blood pressure 76 mm[Hg] DO Adánkalyn Arthur Work Phone: [facility] 11-24-2023 00:20-0400 Heart rate 62 /min DO Adánkalyn Arthur Work Phone: [facility] 11-24-2023 00:20-0400 Inhaled oxygen flow rate 4 L/min DO Adán Arthur Work Phone: [facility] 11-24-2023 00:20-0400 Respiratory rate 21 /min DO Adán Newtonring Work Phone: [facility] 11-24-2023 00:20-0400 SaO2% (BldA) [Mass fraction] 98 % DO Adán Arthur Work Phone: [facility] 11-24-2023 00:20-0400 Systolic blood pressure 158 mm[Hg] DO Adán Arthur Work Phone: [facility] 11-23-2023 19:20-0400 Body temperature 98.1 [degF] DO Adán Arthur Work Phone: [facility] 11-23-2023 19:10-0400 Body height 162.56 cm DO Adán Arthur Work Phone: [facility] 11-23-2023 19:10-0400 Body weight 78 kg DO Adán Arthur Work Phone: [facility] 11-21-2023 11:37-0400 Body temperature 97.8 [degF] DO Adán Arthur Work Phone: [facility] 11-21-2023 11:37-0400 Diastolic blood pressure 56 mm[Hg] DO Adán Arthur Work Phone: [facility] 11-21-2023 11:37-0400 Heart rate 64 /min DO Adán Arthur Work Phone: [facility] 11-21-2023 11:37-0400 Inhaled oxygen flow rate 4 L/min DO Adán Arthur Work Phone: [facility] 11-21-2023 11:37-0400 Respiratory rate 18 /min DO Adán Arthur Work Phone: [facility] 11-21-2023 11:37-0400 SaO2% (BldA) [Mass fraction] 95 % DO Adná Arthur Work Phone: [facility] 11-21-2023 11:37-0400 Systolic blood pressure 117 mm[Hg] DO Adán Arthur Work Phone: [facility] 11-21-2023 04:01-0400 Body weight 78.8 kg DO Adán Arthur Work Phone: [facility] 11-18-2023 15:34-0400 Body height 167.64 cm DO Adán Arthur Work Phone: [facility] 11-18-2023 15:00-0400 Diastolic blood pressure 58 mm[Hg] DO Adán Arthur Work Phone: [facility] 11-18-2023 15:00-0400 Heart rate 84 /min DO Adán Arthur Work Phone: [facility] 11-18-2023 15:00-0400 Respiratory rate 16 /min DO Adán Arthur Work Phone: [facility] 11-18-2023 15:00-0400 Systolic blood pressure 117 mm[Hg] DO Adán Arthur Work Phone: [facility] 11-18-2023 13:30-0400 Inhaled oxygen flow rate 4 L/min DO Adán Arthur Work Phone: [facility] 11-18-2023 13:30-0400 SaO2% (BldA) [Mass fraction] 96 % DO Adán Arthur Work Phone: [facility] 11-18-2023 12:55-0400 Body temperature 98.9 [degF] DO Adán Arthur Work Phone: [facility] 11-18-2023 10:17-0400 Body height 167.64 cm DO Adán Newtonring Work Phone: [facility] 11-18-2023 10:17-0400 Body weight 77 kg DO Adán Newtonring Work Phone: [facility] 10-14-2023 10:32-0400 Body height 162.56 cm DO Neto Arauz Work Phone: [facility] 10-14-2023 10:32-0400 Body mass index (BMI) [Ratio] 27.6 kg/m2 DO Neto Bahmans Work Phone: [facility] 10-14-2023 10:32-0400 Body weight 73.02 kg DO Neto Bahmans Work Phone: [facility] 10-14-2023 10:32-0400 Diastolic blood pressure 60 mm[Hg] DO Neto Bahmans Work Phone: [facility] 10-14-2023 10:32-0400 Heart rate 61 /min DO Neto Arauz Work Phone: [facility] 10-14-2023 10:32-0400 Inhaled oxygen flow rate 4 L/min DO Neto Ruggieros Work Phone: [facility] 10-14-2023 10:32-0400 Respiratory rate 20 /min DO Neto Arauz Work Phone: [facility] 10-14-2023 10:32-0400 SaO2% (BldA) [Mass fraction] 98 % DO Neto Arauz Work Phone: [facility] 10-14-2023 10:32-0400 Systolic blood pressure 118 mm[Hg] DO Neto Arauz Work Phone: [facility] 10-11-2023 09:34-0400 Body height 162.56 cm DO Neto Arauz Work Phone: [facility] 10-11-2023 09:34-0400 Body mass index (BMI) [Ratio] 27.6 kg/m2 DO Neto Arauz Work Phone: [facility] 10-11-2023 09:34-0400 Body temperature 96.6 [degF] DO Neto Arauz Work Phone: [facility] 10-11-2023 09:34-0400 Body weight 73.02 kg DO Neto Arauz Work Phone: [facility] 10-11-2023 09:34-0400 Diastolic blood pressure 60 mm[Hg] DO Netobayron Ruggieros Work Phone: [facility] 10-11-2023 09:34-0400 Heart rate 64 /min DO Netobayron Ruggieros Work Phone: [facility] 10-11-2023 09:34-0400 Inhaled oxygen flow rate 4 L/min DO Netobayron Ruggieros Work Phone: [facility] 10-11-2023 09:34-0400 Respiratory rate 20 /min DO Neto Arauz Work Phone: [facility] 10-11-2023 09:34-0400 SaO2% (BldA) [Mass fraction] 98 % DO Neto Arauz Work Phone: [facility] 10-11-2023 09:34-0400 Systolic blood pressure 143 mm[Hg] DO Neto Arauz Work Phone: [facility] 08-22-2023 15:37-0400 Body height 162.6 cm Jessica Hi [employer] Work Phone: [facility] 08-22-2023 15:37-0400 Body mass index (BMI) [Ratio] 27.19 kg/m2 Jessica Hi [employer] Work Phone: [facility] 08-22-2023 15:37-0400 Body weight 71.85 kg Jessica Hi [employer] Work Phone: [facility] 08-22-2023 15:37-0400 Diastolic blood pressure 56 mm[Hg] Jessica Hi [employer] Work Phone: [facility] 08-22-2023 15:37-0400 Heart rate 60 /min Jessica iH [employer] Work Phone: [facility] 08-22-2023 15:37-0400 Systolic blood pressure 106 mm[Hg] Jessica Hi [employer] Work Phone: [facility] 08-18-2023 13:45-0400 Body height 162.56 cm DO Neto Arauz Work Phone: [facility] 08-18-2023 13:45-0400 Body mass index (BMI) [Ratio] 27.1 kg/m2 DO Neto Arauz Work Phone: [facility] 08-18-2023 13:45-0400 Body temperature 97.4 [degF] DO Neto Kuns Work Phone: [facility] 08-18-2023 13:45-0400 Body weight 71.66 kg DO Neto Kuns Work Phone: [facility] 08-18-2023 13:45-0400 Diastolic blood pressure 65 mm[Hg] DO Neto Kuns Work Phone: [facility] 08-18-2023 13:45-0400 Heart rate 66 /min DO Neto Kuns Work Phone: [facility] 08-18-2023 13:45-0400 Inhaled oxygen flow rate 4 L/min DO Neto Kuns Work Phone: [facility] 08-18-2023 13:45-0400 Respiratory rate 20 /min DO Neto Bahmans Work Phone: [facility] 08-18-2023 13:45-0400 SaO2% (BldA) [Mass fraction] 96 % DO Neto Kuns Work Phone: [facility] 08-18-2023 13:45-0400 Systolic blood pressure 128 mm[Hg] DO Neto Kuns Work Phone: [facility] 08-11-2023 12:35-0400 Diastolic blood pressure 74 mm[Hg] DO Neto Bahmans Work Phone: [facility] 08-11-2023 12:35-0400 Heart rate 56 /min DO Neto Kuns Work Phone: [facility] 08-11-2023 12:35-0400 Inhaled oxygen flow rate 2 L/min DO Neto Kuns Work Phone: [facility] 08-11-2023 12:35-0400 Respiratory rate 21 /min DO Neto Kuns Work Phone: [facility] 08-11-2023 12:35-0400 SaO2% (BldA) [Mass fraction] 92 % DO Neto Arauz Work Phone: [facility] 08-11-2023 12:35-0400 Systolic blood pressure 148 mm[Hg] DO Neto Arauz Work Phone: [facility] 08-11-2023 08:13-0400 Body temperature 97.6 [degF] DO Neto Arauz Work Phone: [facility] 08-11-2023 06:00-0400 Body weight 75.7 kg DO Neto Arauz Work Phone: [facility] 08-08-2023 20:00-0400 Inhaled oxygen concentration 2 % DO Neto Arauz Work Phone: [facility] 08-08-2023 16:38-0400 Body height 162.56 cm DO Neto Arauz Work Phone: [facility] 07-30-2023 12:00-0400 Body temperature 97.7 [degF] DO Neto Arauz Work Phone: [facility] 07-30-2023 12:00-0400 Diastolic blood pressure 62 mm[Hg] DO Neto Arauz Work Phone: [facility] 07-30-2023 12:00-0400 Heart rate 60 /min DO Neto Arauz Work Phone: [facility] 07-30-2023 12:00-0400 Inhaled oxygen flow rate 3 L/min DO Neto Arauz Work Phone: [facility] 07-30-2023 12:00-0400 Respiratory rate 17 /min DO Neto Arauz Work Phone: [facility] 07-30-2023 12:00-0400 SaO2% (BldA) [Mass fraction] 94 % DO Neto Arauz Work Phone: [facility] 07-30-2023 12:00-0400 Systolic blood pressure 107 mm[Hg] DO Neto Arauz Work Phone: [facility] 07-30-2023 06:00-0400 Body weight 72.8 kg DO Neto Arauz Work Phone: [facility] 07-29-2023 12:17-0400 Inhaled oxygen concentration 45 % DO Neto Ruggieros Work Phone: [facility] 07-26-2023 16:17-0400 Body height 162.56 cm DO Neto Arauz Work Phone: [facility] 07-26-2023 03:44-0400 Body height 162.56 cm DO Neto Arauz Work Phone: [facility] 07-26-2023 03:44-0400 Body temperature 97.9 [degF] DO Neto Arauz Work Phone: [facility] 07-26-2023 03:44-0400 Body weight 68.8 kg DO Neto Arauz Work Phone: [facility] 07-26-2023 03:44-0400 Diastolic blood pressure 53 mm[Hg] DO Neto Arauz Work Phone: [facility] 07-26-2023 03:44-0400 Heart rate 54 /min DO Neto Arauz Work Phone: [facility] 07-26-2023 03:44-0400 Inhaled oxygen flow rate 5 L/min DO Neto Arauz Work Phone: [facility] 07-26-2023 03:44-0400 Respiratory rate 20 /min DO Neto Ruggieros Work Phone: [facility] 07-26-2023 03:44-0400 SaO2% (BldA) [Mass fraction] 97 % DO Neto Ruggieros Work Phone: [facility] 07-26-2023 03:44-0400 Systolic blood pressure 101 mm[Hg] DO Neto Arauz Work Phone: [facility] 03-03-2023 15:00-0500 Body height 162.56 cm Neto Arauz Other [employer] Other 03-03-2023 15:00-0500 Body mass index (BMI) [Ratio] 25.74 kg/m2 Neto Arauz Other [employer] Other 03-03-2023 15:00-0500 Body weight 68.04 kg Neto Arauz Other [employer] Other 03-03-2023 15:00-0500 Diastolic blood pressure 70 mm[Hg] Neto Arauz Other [employer] Other 03-03-2023 15:00-0500 Respiratory rate 16 /min Neto Arauz Other [employer] Other 03-03-2023 15:00-0500 SaO2% (BldA) [Mass fraction] 89 % Neto Arauz Other [employer] Other 03-03-2023 15:00-0500 Systolic blood pressure 116 mm[Hg] Neto Arauz Other [employer] Other 09-02-2022 20:00-0400 Diastolic blood pressure 67 mm[Hg] DO Neto Arauz Work Phone: [facility] 09-02-2022 20:00-0400 Heart rate 55 /min DO Neto Ruggieros Work Phone: [facility] 09-02-2022 20:00-0400 Inhaled oxygen flow rate 2 L/min DO Neto Arauz Work Phone: [facility] 09-02-2022 20:00-0400 SaO2% (BldA) [Mass fraction] 98 % DO Neto Kuns Work Phone: [facility] 09-02-2022 20:00-0400 Systolic blood pressure 150 mm[Hg] DO Neto Kuns Work Phone: [facility] 09-02-2022 19:00-0400 Respiratory rate 16 /min DO Neto Kuns Work Phone: [facility] 09-02-2022 16:21-0400 Body height 162.56 cm DO Neto Kuns Work Phone: [facility] 09-02-2022 16:21-0400 Body temperature 98 [degF] DO Neto Kuns Work Phone: [facility] 09-02-2022 16:21-0400 Body weight 64.86 kg DO Neto Kuns Work Phone: [facility] 08-30-2022 20:07-0400 Body temperature 97.7 [degF] DO Neto Kuns Work Phone: [facility] 08-30-2022 20:07-0400 Diastolic blood pressure 71 mm[Hg] DO Neto Kuns Work Phone: [facility] 08-30-2022 20:07-0400 Heart rate 57 /min DO Neto Kuns Work Phone: [facility] 08-30-2022 20:07-0400 Respiratory rate 20 /min DO Neto Kuns Work Phone: [facility] 08-30-2022 20:07-0400 SaO2% (BldA) [Mass fraction] 94 % DO Neto Kuns Work Phone: [facility] 08-30-2022 20:07-0400 Systolic blood pressure 117 mm[Hg] DO Neto Kuns Work Phone: [facility] 08-30-2022 19:55-0400 Inhaled oxygen flow rate 2 L/min DO Neto Bahmans Work Phone: [facility] 08-30-2022 05:12-0400 Body weight 65.9 kg DO Neto Kuns Work Phone: [facility] 08-28-2022 16:47-0400 Body height 162.56 cm DO Neto Kuns Work Phone: [facility] 08-28-2022 16:30-0400 Diastolic blood pressure 60 mm[Hg] DO Neto Kuns Work Phone: [facility] 08-28-2022 16:30-0400 Heart rate 58 /min DO Neto Kuns Work Phone: [facility] 08-28-2022 16:30-0400 Inhaled oxygen flow rate 2 L/min DO Neto Bahmans Work Phone: [facility] 08-28-2022 16:30-0400 Respiratory rate 20 /min DO Neto Bahmans Work Phone: [facility] 08-28-2022 16:30-0400 SaO2% (BldA) [Mass fraction] 99 % DO Neto Kuns Work Phone: [facility] 08-28-2022 16:30-0400 Systolic blood pressure 128 mm[Hg] DO Neto Kuns Work Phone: [facility] 08-28-2022 13:39-0400 Body temperature 97.6 [degF] DO Neto Kuns Work Phone: [facility] 08-28-2022 12:25-0400 Body height 162.56 cm DO Neto Kuns Work Phone: [facility] 08-28-2022 12:25-0400 Body weight 64.86 kg DO Neto Kuns Work Phone: [facility] 06-29-2022 15:15-0400 Body height 162.56 cm Neto Chela Other [employer] Other 06-29-2022 15:15-0400 Diastolic blood pressure 48 mm[Hg] Neto Arauz Other [employer] Other 06-29-2022 15:15-0400 Respiratory rate 20 /min Neto Arauz Other [employer] Other 06-29-2022 15:15-0400 SaO2% (BldA) [Mass fraction] 86 % Neto Arauz Other [employer] Other 06-29-2022 15:15-0400 Systolic blood pressure 108 mm[Hg] Neto Arauz Other [employer] Other 03-04-2022 15:45-0500 Body height 162.56 cm Neto Arauz Other [employer] Other 03-04-2022 15:45-0500 Body mass index (BMI) [Ratio] 24.71 kg/m2 Neto Arauz Other [employer] Other 03-04-2022 15:45-0500 Body weight 65.32 kg Neto Arauz Other [employer] Other 03-04-2022 15:45-0500 Diastolic blood pressure 56 mm[Hg] Neto Arauz Other [employer] Other 03-04-2022 15:45-0500 Respiratory rate 16 /min Neto Arauz Other [employer] Other 03-04-2022 15:45-0500 SaO2% (BldA) [Mass fraction] 91 % Neto Bahmanduyen Other [employer] Other 03-04-2022 15:45-0500 Systolic blood pressure 126 mm[Hg] Neto Arauz Other [employer] Other 12-31-2021 15:15-0400 Body height 162.56 cm Neto Arauz Other [employer] Other 12-31-2021 15:15-0400 Diastolic blood pressure 74 mm[Hg] Neto Arauz Other [employer] Other 12-31-2021 15:15-0400 Respiratory rate 16 /min Neto Arauz Other [employer] Other 12-31-2021 15:15-0400 SaO2% (BldA) [Mass fraction] 85 % Neto Bahmanduyen Other [employer] Other 12-31-2021 15:15-0400 Systolic blood pressure 118 mm[Hg] Neto Arauz Other [employer] Other 09-17-2021 15:45-0400 Body height 162.56 cm Neto Arauz Other [employer] Other 09-17-2021 15:45-0400 Body mass index (BMI) [Ratio] 25.06 kg/m2 Neto Arauz Other [employer] Other 09-17-2021 15:45-0400 Body weight 66.23 kg Neto Arauz Other [employer] Other 09-17-2021 15:45-0400 Diastolic blood pressure 60 mm[Hg] Neto Arauz Other [employer] Other 09-17-2021 15:45-0400 Respiratory rate 18 /min Neto Arauz Other [employer] Other 09-17-2021 15:45-0400 SaO2% (BldA) [Mass fraction] 87 % Neto Arauz Other [employer] Other 09-17-2021 15:45-0400 Systolic blood pressure 112 mm[Hg] Neto Arauz Other [employer] Other 06-02-2021 16:00-0400 Body height 162.56 cm Neto Arauz Other [employer] Other 06-02-2021 16:00-0400 Body mass index (BMI) [Ratio] 25.74 kg/m2 Neto Arauz Other [employer] Other 06-02-2021 16:00-0400 Body weight 68.04 kg Neto Arauz Other [employer] Other 06-02-2021 16:00-0400 Diastolic blood pressure 70 mm[Hg] Neto Arauz Other [employer] Other 06-02-2021 16:00-0400 Respiratory rate 16 /min Neto Arauz Other [employer] Other 06-02-2021 16:00-0400 SaO2% (BldA) [Mass fraction] 85 % Neto Arauz Other [employer] Other 06-02-2021 16:00-0400 Systolic blood pressure 110 mm[Hg] Neto Arauz Other [employer] Other 02-19-2021 15:45-0500 Body height 162.56 cm Neto Arauz Other [employer] Other 02-19-2021 15:45-0500 Body mass index (BMI) [Ratio] 25.74 kg/m2 Neto Arauz Other [employer] Other 02-19-2021 15:45-0500 Body weight 68.04 kg Neto Arauz Other [employer] Other 02-19-2021 15:45-0500 Diastolic blood pressure 66 mm[Hg] Neto Arauz Other [employer] Other 02-19-2021 15:45-0500 Respiratory rate 20 /min Neto Arauz Other [employer] Other 02-19-2021 15:45-0500 SaO2% (BldA) [Mass fraction] 92 % Neto Arauz Other [employer] Other 02-19-2021 15:45-0500 Systolic blood pressure 110 mm[Hg] Neto Arauz Other [employer] Other 01-15-2021 15:15-0500 Body height 162.56 cm Neto Arauz Other [employer] Other 01-15-2021 15:15-0500 Body mass index (BMI) [Ratio] 26.09 kg/m2 Neto Arauz Other [employer] Other 01-15-2021 15:15-0500 Body weight 68.95 kg Neto Arauz Other [employer] Other 01-15-2021 15:15-0500 Diastolic blood pressure 70 mm[Hg] Neto Chela Other [employer] Other 01-15-2021 15:15-0500 Respiratory rate 16 /min Neto Chela Other [employer] Other 01-15-2021 15:15-0500 SaO2% (BldA) [Mass fraction] 91 % Neto Arauz Other [employer] Other 01-15-2021 15:15-0500 Systolic blood pressure 114 mm[Hg] Netobayron Arauz Other [employer] Other 12-30-2020 16:00-0400 Body height Neto Arauz Other [employer] Other 12-30-2020 16:00-0400 Body mass index (BMI) [Ratio] 25.98 kg/m2 Netobayron Ruggieroduyen Other [employer] Other 12-30-2020 16:00-0400 Body weight 68.68 kg Netobayron Arauz Other [employer] Other 12-30-2020 16:00-0400 Diastolic blood pressure 58 mm[Hg] Neto Ruggieros Other [employer] Other 12-30-2020 16:00-0400 Respiratory rate 20 /min Neto Arauz Other [facility] [employer] Other 12-30-2020 16:00-0400 SaO2% (BldA) [Mass fraction] 88 % Neto Arauz Other [employer] Other 12-30-2020 16:00-0400 Systolic blood pressure 110 mm[Hg] Neto Arauz Other [facility] [employer] Other Encounters Encounter Date Encounter Type Care Provider Facility Start: 03-24-2024 End: 03-28-2024 Evaluation and management of inpatient Neto Arauz DO Work Phone: [facility] Work Phone: Start: 03-24-2024 End: 03-28-2024 Neto Arauz DO Work Phone: [facility] Work Phone: Start: 03-22-2024 End: 03-22-2024 ambulatory KAELYN ROY Facility:[facility] Start: 03-22-2024 End: 03-22-2024 Patient encounter procedure KAELYN ROY [facility] Start: 03-21-2024 ambulatory KAELYN ROY Facility : [place] Start: 03-15-2024 End: 03-18-2024 ambulatory Jus Perla Facility:[facility] Start: 03-15-2024 End: 03-18-2024 Evaluation and management of inpatient Neto Arauz DO Work Phone: [facility] Work Phone: Start: 03-15-2024 End: 03-18-2024 observation encounter Neto Arauz DO Work Phone: [facility] Work Phone: Start: 03-15-2024 End: 03-18-2024 Neto Arauz DO Work Phone: [facility] Work Phone: Start: 03-01-2024 Non-patient / Non-visit Neto Arauz DO [facility] Phone[facility] Work Phone: Start: 03-01-2024 Neto Arauz DO Work Phone: [facility] Work Phone: Start: 02-29-2024 End: 03-04-2024 Evaluation and management of inpatient Neto Arauz DO Work Phone: [facility] Work Phone: Start: 02-29-2024 End: 03-04-2024 Neto Arauz DO Work Phone: [facility] Work Phone: Start: 02-03-2024 ambulatory KALEIGH Lerma RIOS [facility] Start: 01-30-2024 End: 01-30-2024 Patient encounter procedure Neto Arauz DO Work Phone: [facility] [place] Work Phone: Start: 01-30-2024 End: 01-30-2024 Neto Arauz DO Work Phone: [facility] [place] Work Phone: Start: 01-30-2024 End: 01-30-2024 ambulatory Kaleigh Rios Facility:[facility] Start: 01-25-2024 End: 01-25-2024 ambulatory Sandor Mcduffie DO [facility] Work Phone: Start: 01-25-2024 End: 01-25-2024 Patient encounter procedure Sandor Mcduffie DO [facility] Work Phone: Start: 01-25-2024 End: 01-25-2024 Neto Arauz DO Work Phone: [facility] [place] Work Phone: Start: 01-24-2024 End: 01-24-2024 ambulatory Sandor Mcduffie DO [facility] Work Phone: Start: 01-24-2024 End: 01-24-2024 Patient encounter procedure Sandor Mcduffie DO [facility] Work Phone: Start: 01-24-2024 End: 01-24-2024 Neto Arauz DO Work Phone: [facility] Work Phone: Start: 01-23-2024 End: 01-23-2024 Patient encounter procedure Sandor Mcduffie DO [facility] [place] Work Phone: Start: 01-23-2024 End: 01-23-2024 Neto Arauz DO Work Phone: [facility] [place] Work Phone: Start: 01-23-2024 End: 01-23-2024 ambulatory Sandor Mcduffie DO [facility] Work Phone: Start: 01-16-2024 Non-patient / Non-visit Neto Arauz DO Work Phone: [facility] [place] Work Phone: Start: 01-16-2024 Neto Arauz DO Work Phone: [facility] [place] Work Phone: Start: 01-06-2024 End: 01-06-2024 Office outpatient visit 15 minutes Ferdinand Galdamez DO Work Phone: [facility] Comment on above: Essential hypertensi on; Mixed hyperlipidemia; Chronic obstructive pulmonary disease, unspecified COPD type (Multi); Type 2 diabetes mellitus without complication, with long-term current use of insulin (Multi); BMI 29.0-29.9,adult; Former smoker Start: 01-06-2024 End: 01-06-2024 ambulatory [facility] Start: 12-20-2023 End: 12-21-2023 Refill Nicole Sparks PROCEDURES RN Work Phone: [facility] Comment on above: Neuropathy Start: 11-23-2023 End: 11-24-2023 Emergency department patient visit DO Adán Arthur Work Phone: [facility]Emer[facility] Work Phone: Start: 11-23-2023 Non-patient / Non-visit DO Robert iel Arthur Work Phone: [facility] Work Phone: Start: 11-19-2023 Non-patient / Non-visit DO Robert iel Arthur Work Phone: [facility] Work Phone: Start: 11-18-2023 End: 11-21-2023 Evaluation and management of inpatient DO Adán Arthur Work Phone: [facility] Work Phone: Start: 10-27-2023 Non-patient / Non-visit DO Robert iel Arthur Work Phone: [facility] [place] Work Phone: Start: 10-18-2023 Non-patient / Non-visit DO Robert iel Arthur Work Phone: [facility] [place] Work Phone: Start: 10-17-2023 End: 10-17-2023 ambulatory USSAN REYES Not Available Start: 10-14-2023 End: 10-14-2023 Patient encounter procedure DO Neto Arauz Work Phone: [facility] [place] Work Phone: Start: 10-14-2023 End: 10-14-2023 ambulatory DO Neto Arauz Work Phone: [facility] Work Phone: Start: 10-14-2023 End: 10-14-2023 ambulatory DO Neto Arauz Work Phone: [facility] Work Phone: Start: 10-14-2023 End: 10-14-2023 Patient encounter procedure DO Neto Arauz Work Phone: [facility] [place] Work Phone: Start: 10-11-2023 End: 10-11-2023 ambulatory DO Neto Arauz Work Phone: [facility] Work Phone: Start: 10-11-2023 End: 10-11-2023 Patient encounter procedure DO Neto Arauz Work Phone: [facility] Work Phone: Start: 10-05-2023 Non-patient / Non-visit DO José Ruggieros Work Phone: [facility] [place] Work Phone: Start: 09-26-2023 Non-patient / Non-visit DO José Ruggieros Work Phone: [facility] Work Phone: Start: 09-26-2023 End: 09-26-2023 Patient encounter procedure DO Neto Arauz Work Phone: [facility]Res[facility] Work Phone: Start: 09-26-2023 End: 09-26-2023 ambulatory DO Neto Arauz Work Phone: [facility] Work Phone: Start: 08-22-2023 End: 08-22-2023 Office outpatient visit 15 minutes Jessica Hi [employer] Work Phone: [facility] Comment on above: Coronary artery dise ase involving [place] coronary artery of [place] heart without angina pectoris (Primary Dx); Essential hypertension; Mixed hyperlipidemia; Diabetes mellitus type II, non insulin dependent (Multi); BMI 27.0-27.9,adult; Chronic obstructive pulmonary disease, unspecified COPD type (Multi); Former smoker Start: 08-22-2023 End: 08-22-2023 ambulatory JESSICA [facility] Ambulatory Start: 08-18-2023 End: 08-18-2023 ambulatory DO Neto Arauz Work Phone: [facility] Work Phone: Start: 08-18-2023 End: 08-18-2023 Patient encounter procedure DO Neto Arauz Work Phone: [facility] Work Phone: Start: 08-07-2023 End: 08-11-2023 Non-patient / Non-visit DO Neto Arauz Work Phone: [facility] Work Phone: Start: 08-06-2023 End: 08-11-2023 Evaluation and management of inpatient DO Neto Arauz Work Phone: [facility] Work Phone: Start: 07-26-2023 End: 07-30-2023 Evaluation and management of inpatient DO Neto Arauz Work Phone: [facility] Work Phone: Start: 06-29-2023 End: 06-29-2023 ambulatory SUSAN REYES Not Available Start: 06-24-2023 Non-patient / Non-visit DO José Arauz Work Phone: [facility] [employer] Work Phone: Start: 04-10-2023 Chart abstracting Susan stovall MD Work Phone: [facility] [address] Start: 03-03-2023 End: 03-03-2023 ambulatory Neto Arauz Other [employer] Other Start: 03-03-2023 Office outpatient vi sit 25 minutes Netobayron Arauz [facility] [place] Start: 03-03-2023 Telephone encounter Neto Arauz [facility] [place] Start: 02-22-2023 End: 02-22-2023 ambulatory Neto Arauz Other [facility] [employer] Other Start: 02-22-2023 Telephone encounter Neto Arauz [facility] [place] Start: 02-15-2023 End: 02-15-2023 ambulatory Neto Arauz Other [employer] Other Start: 02-15-2023 Telephone encounter Neto Arauz [facility] Start: 01-03-2023 End: 01-03-2023 ambulatory Neto Arauz Other [employer] Other Start: 01-03-2023 Telephone encounter Neto Arauz [facility] [place] Start: 12-13-2022 End: 12-13-2022 ambulatory DO Neto Arauz Work Phone: [facility] Work Phone: Start: 12-13-2022 End: 12-13-2022 Patient encounter procedure DO Neto Arauz Work Phone: [facility] [place] Work Phone: Start: 09-02-2022 Chart Update Ferdinand garcia MD Work Phone: [facility] [address] DO Work Phone: Start: 09-02-2022 End: 09-02-2022 Emergency department patient visit DO Neto Arauz Work Phone: [facility]Emergency [facility] Work Phone: Start: 09-01-2022 End: 09-01-2022 ambulatory Neto Arauz Other [facility] [employer] Other Start: 09-01-2022 Telephone encounter Neto Bahmanduyen [facility] [place] Start: 08-31-2022 End: 08-31-2022 ambulatory Netobayron Arauz Other [facility] [employer] Other Start: 08-31-2022 Telephone encounter Neto Chela [facility] [place] Start: 08-30-2022 Telephone encounter Neto Bahmanduyen [facility] [place] Start: 08-30-2022 End: 08-30-[address] Ferdinand Galdamez [facility] [employer] Other Start: 08-29-[address] Ferdinand Galdamez [facility]:[id number] Start: 08-28-2022 End: 08-30-2022 Evaluation and management of inpatient DO Neto Arauz Work Phone: [facility] Work Phone: Start: 08-28-2022 Evaluation and management of inpatient DO Neto Arauz Work Phone: [facility] Work Phone: Start: 08-28-2022 observation encounter DO Neto Arauz Work Phone: [facility] Work Phone: Start: 08-25-2022 End: 08-25-2022 ambulatory Neto Arauz Other [facility] [employer] Other Start: 08-25-2022 Telephone encounter Netobayron Arauz [facility] [place] Start: 08-11-2022 End: 08-11-2022 ambulatory Netobayron Arauz Other [employer] Other Start: 08-11-2022 Telephone encounter eNto Arauz [facility] [place] Start: 06-29-2022 End: 06-29-2022 ambulatory Netobayron Arauz Other [employer] Other Start: 06-29-2022 Office outpatient vi sit 25 minutes Neto Arauz [facility] [place] Start: 06-24-2022 End: 06-24-2022 ambulatory Netobayron Arauz Other [employer] Other Start: 06-24-2022 Telephone encounter Netobayron Arauz [facility] [place] Start: 06-18-2022 End: 06-18-2022 ambulatory Netobayron Arauz Other [employer] Other Start: 06-18-2022 Telephone encounter Neto Arauz [facility] [place] Start: 03-23-2022 End: 03-23-2022 ambulatory Netobayron Arauz Other [employer] Other Start: 03-23-2022 Telephone encounter Netobayron Arauz [facility] [place] Start: 03-19-2022 End: 03-19-2022 ambulatory Netobayron Arauz Other [employer] Other Start: 03-19-2022 Telephone encounter Neto Arauz [facility] [place] Start: 03-15-2022 End: 03-15-2022 ambulatory Netobayron Arauz Other [employer] Other Start: 03-15-2022 Telephone encounter Netobayron Arauz [facility] [place] Start: 03-12-2022 End: 03-12-2022 ambulatory Neto Ruggieros Other [employer] Other Start: 03-12-2022 Telephone encounter Neto Ruggieros [facility] Start: 03-08-2022 End: 03-08-2022 ambulatory Netobayron Ruggieros Other [employer] Other Start: 03-08-2022 Telephone encounter Netobayron Ruggieros [facility] Start: 03-04-2022 End: 03-04-2022 ambulatory Neto Bahmans Other [employer] Other Start: 03-04-2022 Office outpatient vi sit 25 minutes Neto Bahmans [facility] [place] Start: 02-18-2022 End: 02-18-2022 ambulatory Neto Bahmans Other [facility] Other Start: 02-18-2022 Telephone encounter Neto Ruggieros [facility] [place] Start: 01-22-2022 End: 01-22-2022 ambulatory Netobayron Ruggieros Other [facility] Other Start: 01-22-2022 Telephone encounter Neto Ruggieros [facility] [place] Start: 12-31-2021 End: 12-31-2021 ambulatory Netobayron Ruggieros Other [employer] Other Start: 12-31-2021 Office outpatient vi sit 25 minutes Neto Bahmans [facility] [place] Start: 12-07-2021 End: 12-07-2021 ambulatory Netobayron Ruggieros Other [employer] Other Start: 12-07-2021 Telephone encounter Netobayron Ruggieros [facility] Start: 09-23-2021 End: 09-23-2021 ambulatory Netobayron Ruggieros Other [facility] Other Start: 09-23-2021 Telephone encounter Neto Ruggieros [facility] Start: 09-17-2021 End: 09-17-2021 ambulatory Neto Ruggieros Other [facility] Other Start: 09-17-2021 Office outpatient vi sit 25 minutes Netobayron Ruggieros [facility] Start: 09-08-2021 End: 09-08-2021 ambulatory Neto Ruggieros Other [employer] Other Start: 09-08-2021 Telephone encounter Neto Ruggieros [facility] Start: 06-26-2021 End: 06-26-2021 ambulatory Netobayron Ruggieros Other [employer] Other Start: 06-26-2021 Telephone encounter Neto Ruggieros [facility] Start: 06-19-2021 End: 06-19-2021 ambulatory Netobayron Ruggieros Other [employer] Other Start: 06-19-2021 Telephone encounter Netobayron Ruggieros [facility] Start: 06-02-2021 End: 06-02-2021 ambulatory Netobayron Ruggieros Other [employer] Other Start: 06-02-2021 Office outpatient vi sit 25 minutes Netobayron Ruggieros [facility] Start: 05-08-2021 End: 05-08-2021 ambulatory Netobayron Ruggieros Other [facility] Other Start: 05-08-2021 Telephone encounter Netobayron Ruggieros [facility] Start: 03-22-2021 End: 03-22-[address] ANA CRISTINA [facility] Facility: Start: 02-19-2021 End: 02-19-2021 ambulatory Neto Arauz Other [facility] Other Start: 02-19-2021 Office outpatient vi sit 25 minutes Neto Arauz [facility] Start: 01-26-2021 End: 01-26-2021 ambulatory Neto Arauz Other [facility] Other Start: 01-26-2021 Telephone encounter Neto Arauz [facility] Start: 01-15-2021 End: 01-15-2021 ambulatory Neto Arauz Other [facility] Other Start: 01-15-2021 Office outpatient vi sit 25 minutes Neto Arauz [facility] Start: 12-30-2020 Office outpatient vi sit 25 minutes Neto Arauz [facility] Start: 12-30-2020 Telephone encounter Neto Arauz [facility] Procedures Date Procedure Procedure Detail Performing [...] Work Phone: Start: 02-29-2024 Plain chest X-ray Neot Arauz DO Work Phone: Start: 02-29-2024 Bacteria [...] Date Care Activity Detail Author Start: 03-28-2024 [facility] Start: 2024 aPTT in Platelet poor plasma by Coagulation assay [facility] Start: 2024 Comprehensive metabolic 2000 panel - Serum or Plasma [facility] Start: 2024 End: 2024 [facility] Start: 03-24-2024 [facility] Start: 03-24-2024 Physical therapy procedure [facility] Start: 03-24-2024 Referral to chief ultrasound technologist [place] Start: 03-24-2024 Referral to occupational therapist [facility] Start: 03-24-2024 [facility] Start: 03-24-2024 Hospital admission [facility] Start: 03-24-2024 End: 03-24-2024 [facility] Start: 03-18-2024 [facility] Start: 03-16-2024 Referral to urologist [facility] Start: 03-16-2024 End: 03-16-2024 [facility] Start: 03-15-2024 Hospital admission [facility] Start: 03-15-2024 [facility] Start: 03-15-2024 Referral to urologist [facility] Start: 03-15-2024 Urine culture [facility] Start: 03-15-2024 Bacteria identified in Urine by Culture Urine Culture [facility] Start: 03-04-2024 [facility] Start: 03-02-2024 [facility] Start: 02-29-2024 Consultation [facility] Start: 02-29-2024 Hospital admission [facility] Start: 02-13-2024 End: 02-13-2024 Patient encounter procedure 02/13/2024 10:40 AM EST Office Visit [facility] [address] [place] [address] Susan Reyes MD [address] [place] [address] [facility] Start: 11-21-2023 [facility] Start: 11-18-2023 Bacteria identified in Blood by Culture [facility] Start: 11-18-2023 Blood culture for bacteria, including anaerobic screen Blood Culture [facility] Start: 11-18-2023 Hospital admission [facility] Start: 11-06-2023 COVID-19 Vaccine () COVID-19 Vaccine () 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 [place] Start: 07-30-2023 [facility] Start: 07-29-2023 [facility] Start: 07-28-2023 [facility] Start: 07-27-2023 aPTT in Platelet poor plasma by Coagulation assay [facility] Start: 07-27-2023 [facility] Start: 07-26-2023 [facility] Start: 07-26-2023 Physical therapy procedure [facility] Start: 07-26-2023 Referral to occupational therapist [facility] Start: 07-26-2023 Referral to speech and language therapy service [facility] Start: 07-26-2023 [facility] Start: 07-26-2023 Sleep disorder assessment [facility] Start: 07-26-2023 End: 07-26-2023 [facility] Start: 07-26-2023 Hospital admission [facility] Start: 07-25-2023 Plain chest X-ray XR chest 1V portable [facility] Start: 07-25-2023 XR Chest Single view [facility] Start: 07-25-2023 Bacteria identified in Blood by Culture Blood Culture [facility] Start: 07-25-2023 Blood culture for bacteria, including anaerobic screen Blood Culture [facility] Start: 04-11-2023 End: 04-11-2023 Patient encounter procedure 04/11/2023 1:40 PM EST Office Visit [facility] [address] [place] [address] Susan Reyes MD [address], [place] [address] [facility] Start: 11-05-2022 COVID-19 Vaccine ( season) COVID-19 Vaccine ( season) [facility] Start: 11-05-2022 Influenza vaccination Influenza Vaccine (#1) [facility] Start: 08-30-2022 [facility] Start: 08-29-2022 [facility] Start: 08-29-2022 Referral to chief ultrasound technologist [place] Start: 08-29-2022 [facility] Start: 08-28-2022 [facility] Start: 08-28-2022 Hospital admission [facility] Start: 08-28-2022 End: 08-28-2022 [facility] Start: 11-19-2021 Pneumococcal Vaccine: 65+ Years (2 - PCV) Pneumococcal Vaccine: 65+ Years (2 - PCV) [facility] Start: 11-19-2021 Pneumococcal Vaccine: 65+ Years (2 of 2 - PCV) Pneumococcal Vaccine: 65+ Years (2 of 2 - PCV) [facility] Start: 10-06-2015 Pneumococcal Vaccine: 65+ Years (2 of 2 - PCV) Pneumococcal Vaccine: 65+ Years (2 of 2 - PCV) [facility] Start: 2013 RSV High Risk: (Elderly (60+) or Population) (1 - Risk 60-74 years 1-dose series) RSV High Risk: (Elderly (60+) or Population) (1 - Risk 60-74 years 1-dose series) [facility] Start: 2013 RSV patients and/or patients aged 60+ years (1 - 1-dose 60+ series) RSV patients and/or patients aged 60+ years (1 - 1-dose 60+ series) [facility] Start: 2003 Zoster Vaccines (1 of 2) Zoster Vaccines (1 of 2) [facility] Start: 1993 Screening for malignant neoplasm of breast Mammogram [facility] Start: 1975 DTaP/Tdap/Td Vaccines (1 - Tdap) DTaP/Tdap/Td Vaccines (1 - Tdap) [facility] Start: 1972 Urine screening for protein Diabetes: Urine Protein Screening [facility] Start: 1971 Hepatitis C screening Hepatitis C Screening [facility] Start: 1963 Diabetic foot examination Diabetes: Foot Exam [facility] Start: 1963 Glaucoma screening Diabetes: Retinopathy Screening [facility] Start: 1953 Hemoglobin A1c measurement Diabetes: Hemoglobin A1C [facility] Start: 1953 Lipid panel Lipid Panel [facility] Start: 1953 Medicare Annual Wellness Visit Medicare Annual Wellness Visit (AWV) [facility] Start: 1953 Screening for malignant neoplasm of colon [facility] Start: 1953 Screening for osteoporosis Bone Density Scan [facility] Start: 1953 Thyroid stimulating hormone measurement TSH Level [facility] Albumin/Globulin ratio [facility] Anion gap measurement [facility] Anion gap measurement [facility] Basophils [#/volume] in Blood by Automated count [facility] Basophils [#/volume] in Blood by Automated count [facility] Basophils/100 leukoc ytes in Blood by Automated count [facility] Basophils/100 leukoc ytes in Blood by Automated count [facility] Calculated LDL cholesterol level [facility] Cholesterol.total/Ch olest martine in HDL [Mass Ratio] in Serum or Plasma [facility] Eosinophils/100 leukocytes in Blood by Automated count [facility] Eosinophils/100 leukocytes in Blood by Automated count [facility] Erythrocyte distribu tion width [Ratio] by Automated count [facility] Erythrocyte distribu tion width [Ratio] by Automated count [facility] Erythrocytes [#/volu me] in Blood [facility] Erythrocytes [#/volu me] in Blood [facility] Gas panel - Arterial blood [facility] Globulin [Mass/volum e] in Serum [facility] Glucose measurement estimated from glycated hemoglobin [facility] Hematocrit [Volume Fraction] of Blood [facility] Hematocrit [Volume Fraction] of Blood [facility] Hemoglobin [Mass/vol ume] in Blood [facility] Hemoglobin [Mass/vol ume] in Blood [facility] Leukocytes [#/volume ] corrected for nucleated erythrocytes in Blood by Automated coun [facility] Leukocytes [#/volume ] corrected for nucleated erythrocytes in Blood by Automated coun [facility] Leukocytes [#/volume ] in Blood [facility] Leukocytes [#/volume ] in Blood [facility] Lymphocytes [#/volum e] in Blood by Automated count [facility] Lymphocytes [#/volum e] in Blood by Automated count [facility] Lymphocytes/100 leukocytes in Blood by Automated count [facility] Lymphocytes/100 leukocytes in Blood by Automated count [facility] MCH [Entitic mass] b y Automated count [facility] MCH [Entitic mass] b y Automated count [facility] MCHC [Mass/volume] b y Automated count [facility] MCHC [Mass/volume] b y Automated count [facility] MCV [Entitic volume] by Automated count [facility] MCV [Entitic volume] by Automated count [facility] Monocytes [#/volume] in Blood by Automated count [facility] Monocytes [#/volume] in Blood by Automated count [facility] Monocytes/100 leukoc ytes in Blood by Automated count [facility] Monocytes/100 leukoc ytes in Blood by Automated count [facility] Neutrophils [#/volum e] in Blood by Automated count [facility] Neutrophils [#/volum e] in Blood by Automated count [facility] Neutrophils/100 leukocytes in Blood by Automated count [facility] Neutrophils/100 leukocytes in Blood by Automated count [facility] Nucleated erythrocyt es [Presence] in Blood by Automated count [facility] Nucleated erythrocyt es [Presence] in Blood by Automated count [facility] Parathyrin related protein [Moles/volume] in Serum or Plasma [facility] Patient Education [facility] Work Phone: Patient referral [facility] Work Phone: Platelet mean volume [Entitic volume] in Blood by Automated count [facility] Platelet mean volume [Entitic volume] in Blood by Automated count [facility] Platelets [#/volume] in Blood [facility] Platelets [#/volume] in Blood [facility] Urine culture [facility] VLDL cholesterol measurement [facility] Immunizations Immunization Date Immunization Notes Care Provider Fa cility 01-20-2022 influenza virus vaccine, unspecified formulation Susan Reyes MD Work Phone: [facility] 12-30-2020 influenza, high dose seasonal, preservative-free Neto Bahmans Other [facility] [employer] Other 12-30-2020 influenza virus vaccine, unspecified formulation DO Neto Arauz Work Phone: [facility] 07-11-2020 SARS-CoV-2 (COVID-19 ) mRNA-1273 vaccine KAELYN ROY [facility] Comment on above: Result Comment: 2024: [id number] 06-13-2020 SARS-CoV-2 (COVID-19 ) mRNA-1273 vaccine KAELYN ROY [facility] Comment on above: Result Comment: 2024: [id number] 01-07-2020 influenza, high dose seasonal, preservative-free Neto Kuns Other [facility] [employer] Other 01-07-2020 influenza virus vaccine, unspecified formulation DO Neto Arauz Work Phone: [facility] 12-02-2015 influenza, injectabl e, quadrivalent, contains preservative Neto Kuns Other [facility] [employer] Other 12-02-2015 influenza virus vaccine, unspecified formulation KAELYN ROY [facility] 12-02-2015 influenza, injectabl e, quadrivalent, preservative free DO Neto Arauz Work Phone: [facility] 12-03-2014 influenza, high dose seasonal, preservative-free Neto Arauz Other [facility] [employer] Other 12-03-2014 influenza virus vaccine, unspecified formulation DO Neto Arauz Work Phone: [facility] 10-05-2014 pneumococcal polysaccharide vaccine, 23 valent Neto Arauz Other [facility] 08-14-2013 B-12 - up to 1000 mcg Neto Arauz Other [facility] [employer] Other Payers Date Payer Category Payer Self-pay [id number] 2019 [facility] Subscriber Plan / Payer (Effective 2019-Present) Name: Conchis Charles Relation to Subscriber: Self Name: Conchis Charles Payer ID: Not on file Type: Not on file Address: [address] [place] [id number] 2019 [facility] Care [facility] [id number] 2019 Unknown 2019 [facility] [id number] 2005 Medicare [id number] [id number] 1959 Medicare [id number] 1959 Unknown [id number] 1953 Unknown [id number] 2.16.840.1.254675.3.57 9.2.593 1953 Unknown [id number] 2.16.840.1.940107.3.57 9.2.356 1953 Unknown [id number] 2.16.840.1.522162.3.57 9.2.356 1953 Unknown [id number] 2.16.840.1.843991.3.57 9.2.1259 1953 Unknown [id number] 2.16.840.1.878823.3.57 9.2.1259 1953 Unknown [id number] 2.16.840.1.567613.3.57 9.2.1244 1953 Unknown [id number] 2.16.840.1.641860.3.57 9.2.1244 1953 Unknown [id number] 2.16.840.1.114165.3.57 9.2.727 Medicare Medicare Nonpatient [id number] Medicare [id number] Private Health Insurance [employer] MCR PFFS [id number] Unknown HCAP/HFA/FAP Active [id number] 2 [id number] Unknown [id number] 2.16.840.1.812576.3.57 9.2.531 Unknown [id number] 2.16.840.1.226280.3.57 9.2.531 Unknown [id number] 2.16.840.1.769798.3.57 9.2.531 Unknown [id number] 2.16.840.1.136230.3.57 9.2.531 Unknown [id number] 2.16.840.1.912474.3.57 9.2.531 Unknown [id number] 2.16.840.1.033488.3.57 9.2.531 Unknown [id number] 2.16.840.1.011384.3.57 9.2.531 Unknown [id number] 2.16.840.1.742102.3.57 9.2.531 Unknown [id number] 2.16.840.1.113332.3.57 9.2.531 Unknown [id number] 2.16.840.1.602243.3.57 9.2.531 Unknown [id number] 2.16.840.1.900548.3.57 9.2.531 Social History Date Type Detail Facility Unknown if ever smoked [employer] Other Start: 08-22-2023 End: 01-06-2024 Sex Assigned At [facility] Start: 08-28-2022 End: 07-26-2023 Tobacco smoking status CAIS Smoker (finding) [facility] Start: 1955 Sex Assigned At Female F [facility] Start: 04-11-2023 Tobacco smoking stat us [facility] Smokes tobacco daily [facility] History of tobacco use Cigarette Smoker [facility] Start: 04-11-2023 Tobacco Comment 11-20 cigarettes a d ay [facility] Start: 1955 Sex Assigned At Not on file [facility] Start: 08-07-2023 End: 2024 Tobacco smoking status CAIS Ex-smoker (finding) [facility] Start: 08-22-2023 Tobacco use and exposure Smokeless tobacco non-user [facility] Work Phone: Start: 08-22-2023 End: 01-06-2024 Alcoholic beverage intake Lifetime non-drinker (finding) [facility] Work Phone: Start: 08-22-2023 End: 01-06-2024 History of Social function [facility] Work Phone: Start: 08-12-2023 End: 01-06-2024 Exposure to SARS-CoV-2 (event) Not sure [facility] Start: 06-29-2023 Gender identity Identifies as female gender (finding) [facility] Start: 01-24-2024 End: 03-28-2024 Sex Female (finding) [facility] Tobacco smoking status Never [facility] Medical Equipment Procedure Code Equipment Code [...] status Patient is Pro gressing Toward Baseline [facility] Work Phone: 03-22-2024 Functional Status N/A [facility] 03-18-2024 Functional status Patient is Pro gressing Toward Baseline [facility] Work Phone: 03-04-2024 Functional status Patient at Baseline [facility] Work Phone: 11-21-2023 Functional status Patient at Baseline [facility] Work Phone: 08-06-2023 Functional status Patient is Pro gressing Toward Baseline [facility] Work Phone: 07-30-2023 Functional status Patient is Pro gressing Toward Baseline [facility] Work Phone: 07-26-2023 Functional status Patient is Pro gressing Toward Baseline [facility] Work Phone: 08-30-2022 Functional status Patient at Baseline [facility] Work Phone: Mental Status Date Assessment Result Facility 03-28-2024 Cognitive function Patient at Baseline [facility] Work Phone: 03-18-2024 Cognitive function Patient is Pr ogressing Toward Baseline [facility] Work Phone: 03-04-2024 Cognitive function Patient at Baseline [facility] Work Phone: 11-21-2023 Cognitive function Cognitive Sta tus Patient at Baseline [facility] Work Phone: 08-06-2023 Cognitive function Cognitive Sta tus Patient is Progressing Toward [facility] Work Phone: 07-30-2023 Cognitive function Cognitive Sta tus Patient at Baseline [facility] Work Phone: 07-26-2023 Cognitive function Cognitive Sta tus Patient is Progressing Toward Baseline [facility] Work Phone: 08-30-2022 Cognitive function Cognitive Sta tus Patient at Baseline [facility] Work Phone: Clinical Notes 08-01-2013 to 03-28-2024 Note Date & Type Note Facility 03-28-2024 Progress note Note Date/Time March 28, 2024 12:00am [facility] [address] [place] [address] Hospitalist Progress Note Signed Patient: Conchis Charles MR#: [id number] 826 : 1955 Acct:[id number] Age/Sex: 69 / F Adm Date: 5 Loc: Room: [address] [place] [address] Type: ADM IN Attending Dr: Yaakov Garcia [...] cardiology sign off the patient type II PA NSTEMI ruled out She was started on heparin drip; She was evaluated by cardiology Elevated troponin is likely type II PA given the patient's fairly negative cath only [...] signed by Yaakov Garcia MD> 03/28/24 0000 [facility] Work Phone: 1(392) 758-745601-21-2025 Progress note Author Yaakov Garcia [facility] Note Date/Time March 27, 2024 2 :24am [facility] [address] [place] [address] Hospitalist Progress Note Signed Patient: Conchis Charles MR#: [id number] 826 : 1955 Acct:[id number] Age/Sex: 69 / F Adm Date: 5 Loc: Room: [address] [place] [address] Type: ADM IN Attending Dr: Yaakov Garcia [...] recommendation appreciated Elevated troponin, Likely type II PA Higher suspicion for type II PA given the patient's fairly negative cath only [...] Tablet PO 03/24/25 22:29 5 mg HS NAUSHA Administration Aspirin 81 mg 03/25/24 09:00 03/26/24 [...] signed by Yaakov Garcia MD> 03/27/24 0224 [facility] Work Phone: 1(277) 778-251801-20-2025 Progress note Author Mejia Aaron [facility] Note Date/Time 2024 1 0:36pm [facility] [address] [place] [address] Hospitalist Progress Note Signed Patient: Conchis Charles MR#: [id number] 826 : 1955 Acct:[id number] Age/Sex: 69 / F Adm Date: 5 Loc: Room: [address] [place] [address] Type: ADM IN Attending Dr: Mejia Aaron [...] failure: Plan Elevated troponin, Likely type II PA Volume Overload Higher suspicion for type II PA given patient's fairly negative cath only 2 [...] Full code Documented By: Mejia Aaron MD 3 [id number] Signed By: <Electronically signed by Mejia Aaron MD> 03/25/249 [facility] Work Phone: 1(659) 777-704101-19-2025 Consult note Author Juliana Rivera [facility] Note Date/Time 2024 1 :18pm [facility] [address] [place] [address] Cardiology Consult Note Signed Patient: Conchis Charles MR#: [id number] 826 : 1955 Acct:[id number] Age/Sex: 69 / F Adm Date: Loc: Room: [address] [place] [address] Type: ADM IN Attending Dr: Mejia Araon MD Copies to: Adán Arthur, MD Juliana [...] per nasal cannula. She was at the [facility] from recent admission to the hospital recently, [...] being on high flow oxygen at the retirement. Her chest x-ray was abnormal and demonstrated [...] review of system are unremarkable or normal [facility] Medical History Chronic hypoxic respiratory failure Charcot [...] # (Auto) 0.7 L 1.3 (1.00-4.8) x10E3/uL Ware # (Auto) 0.4 0.5 (0.0-0.8) x10E3/uL Eos [...] ml @ 250 mls/hr IV ONCE ONE Rx#:[id number] Magnesium Sulf 2Gm-*Swfi* 2 gm 50 / 50 In 50 ml @ 25 mls/hr IV ONCE ONE Rx#:[id number] Oral 150 / 150 Output: Urine 750 [...] Code(s): I25.10 - Atherosclerotic heart disease of [place] coronary artery without angina pectoris (3) Abnormal [...] - Essential (primary) hypertension Documented By: Juliana Rivera MD, [facility] 5 1310 Signed By: <Electronically signed by [facility] Juliana Rivera> 03/25/24 1318 [facility] Work Phone: 1([phone]) 254-720901-18-2025 History and physical note Author Mejia Aaron [facility] Note Date/Time March 24, 2024 9 :42pm [facility] [address] [place] [address] Hospitalist H&P Signed Patient: Conchis Charles MR#: [id number] 826 : 1955 Acct:[id number] Age/Sex: 68 / F Adm Date: 5 Loc: Room: [address] [place] [address] Type: ADM IN Attending Dr: Mejia Aaron [...] days ago, and was sent to the [facility] facility. She states that while there she [...] inability to urinate. She notes that her fpc facility gave her 1 dose of IV Lasix yesterday due to concern ofher having more swelling in her legs and more dyspnea and hypoxia. In the emergency department, patient maintained on 6 L nasal cannula oxygen. A8kjbpkerfpsa were maintained in the low 90s. Patient [...] that which is noted above in HPI [facility] Medical History (Updated 03/24/24 @ 21:42 by [...] % (Auto) 9.6 % (.) 03/24/24 14:31 Ware % (Auto) 5.2 % (.) 03/24/24 14: Eos % (Auto) 4.6 % (.) 03/24/24 14: Baso % (Auto) 0.7 % (.) 03/24/24 14: Nucleat RBC Rel Count 0.0 /100 WBC (0-0.5) 03/24/24 14: Neut # (Auto) 5.8 x10E3/uL (1.8-7.7) 03/24/24 14: Lymph # (Auto) 0.7 x10E3/uL (1.00-4.8) L 03/24/24 14: Ware # (Auto) 0.4 x10E3/uL (0.0-0.8) 03/24/24 14: [...] troponin Acute coronary syndrome versus type II PA Volume overload Patient presents with T wave inversions in inferior lateral leads. She has beenat fpc over the past 5 days after recent hospitalization here and has been so hypoxic that she has had to complete her physical therapy in her room as opposed to the separate PT workspace at the facility. Lasix was stoppedduring last hospitalization due to UMM. She did have cardiac catheterization [id number] which showed only very minimal coronary artery [...] signed by Mejia Aaron MD> 03/24/24 2142 [facility] Work Phone: 1([phone] 269-554801-18-2025 [facility] Work Phone: 1([phone]) [phone] Hospital Discharge instructions Patient Education 03/22/2024 14:15:20 [...] Follow these instructions at home: Medicines Take gwrp-rtu-brkqtiw and prescription medicines only as told by [...] provider. Document Revised: 11/12/2020 Document Reviewed: 11/12/2020 [employer] Patient Education 2023 [employer]. Follow Up Care 03/21/2024 15:25:20 With:MANUELA SESAY, KAELYN Cantrell, URL Address: [address] [place] [place] [address] Business (1) When: Unknown Comments:pending results of imaging/testing, will call with next steps [facility] 01-16-2025 NotePatient Education Obstetrics and Gynecology [...] these instructions at home: Medicines ??? Take ssdb-uqd-rwogmsv and prescription medicines only as told by [...] provider. Document Revised: 11/12/2020 Document Reviewed: 11/12/2020 [employer] Patient Education ? 2023 [employer].[facility] 03-18-2024 Hospital Discharge instructions Additional Instructions [facility] Facility to manage care: - Full code [...] - Built up utensils with every meal [facility] Work Phone: 1([phone]) 379-394501-11-2025 Progress note Author Jus Perla [facility] Note Date/Time March 17, 2024 9 :51pm [facility] [address] [place], [place] [address] Hospitalist Progress Note Signed Patient: Conchis Charles MR#: [id number] 826 : 1955 Acct:[id number] Age/Sex: 68 / F Adm Date: 5 Loc: Room: [address] [place] [address] Type: ADM INOo Attending Dr: Jus Perla [...] Physician Documented By: Jus Perla MD 03/17/24 0905 Signed By: <Electronically signed by Jus Perla MD> 03/17/24 2595 [facility] Work Phone: [phone] 250-139601-11-[address] [address] Hospitalist Progress Note Signed Patient: Conchis Charles MR#: [id number] 826 : 1955 Acct:[id number] Age/Sex: 68 / F Adm Date: 5 Loc: 3T Room: [address] [place] [address] Type: ADM INOo Attending Dr: Jus Perla [...] Tablet PO 03/18/24 08:59 10 mg DAILY ANUSAH Administration Pregabalin 100 mg 03/16/24 01:30 03/17/24 [...] MD 03/17/24 0959 Signed By: 03/17/24 2151 [facility]01-10-2025 Progress note Author Jus Perla [facility] Note Date/Time March 16, 2024 4 :13pm [facility] [address] [place] [address] Hospitalist Progress Note Signed Patient: Conchis Charles MR#: [id number] 826 : 1955 Acct:[id number] Age/Sex: 68 / F Adm Date: 5 Loc: 3T Room: [address] [place] [address] Type: ADM INOo Attending Dr: Jus Perla [...] <Electronically signed by Jus Perla MD> 03/16/24 0317 [facility] Work Phone: [phone] 291-356701-10-2025 [place] [address] Hospitalist Progress Note Signed Patient: Conchis Charles MR#: [id number] 826 : 1955 Acct:[id number] Age/Sex: 68 / F Adm Date: 5 Loc: 3T Room: [address] [place] [address] Type: ADM INOo Attending Dr: Jus Perla [...] MD 03/16/24 0942 Signed By: 03/16/24 1613 [facility]01-10-2025 History and physical note Author Clarence Matias [facility] Note Date/Time March 16, 2024 1 2:54am [facility] [address] [place] [address] Hospitalist H&P Signed Patient: Conchis Charles MR#: [id number] 826 : 1955 Acct:[id number] Age/Sex: 68 / F Adm Date: 5 Loc: Room: 2Q9669-7 Type: ADM INOo Attending Dr: Clarence Matias [...] except as mentioned elsewhere in the documentation. [facility] Medical History (Updated 03/16/24 @ 00:52 by [...] % (Auto) 13.6 % (.) 03/15/24 20:23 Ware % (Auto) 5.2 % (.) 03/15/24 20:23 Eos % (Auto) 1.8 % (.) 03/15/24 20: Baso % (Auto) 0.6 % (.) 03/15/24 20:23 Nucleat RBC Rel Count 0.0 /100 WBC (0-0.5) 03/15/24 20:23 Neut # (Auto) 7.8 x10E3/uL (1.8-7.7) H 03/15/24 20:23 Lymph # (Auto) 1.3 x10E3/uL (1.00-4.8) 03/15/24 20:23 Ware # (Auto) 0.5 x10E3/uL (0.0-0.8) 03/15/24 20:23 [...] pH 5.5 (5.0-9.0) 03/15/24 18:10 Ur Specific Morton 1.012 (1.001-1.030) 03/15/24 18:10 Urine Protein Negative [...] signed by Clarence Matias DO> 03/16/24 0054 [facility] Work Phone: 1([phone] 426-899301-10-2025 History and physical [place] [id number] Hospitalist H&P Signed Patient: Conchis Charles MR#: [id number] 826 : 1955 Acct:[id number] Age/Sex: 68 / F Adm Date: 5 Loc: Room: [address] [place] [address] Type: ADM INOo Attending Dr: Clarence Matias [...] % (Auto) 13.6 % (.) 03/15/24 20: Ware % (Auto) 5.2 % (.) 03/15/24 20: Eos % (Auto) 1.8 % (.) 03/15/24 20: Baso % (Auto) 0.6 % (.) 03/15/24: Nucleat RBC Rel Count 0.0 /100 WBC (0-0.5) 03/15/24: Neut # (Auto) 7.8 x10E3/uL (1.8-7.7) H 03/15/24 20: Lymph # (Auto) 1.3 x10E3/uL (1.00-4.8) 03/15/24 20: Ware # (Auto) 0.5 x10E3/uL (0.0-0.8) 03/15/24 20: [...] pH 5.5 (5.0-9.0) 03/15/24 18:10 Ur Specific Morton 1.012 (1.001-1.030) 03/15/24 18:10 Urine Protein Negative [...] Matias DO 2129 Signed By: 03/16/24 0054 [facility]01-09-2025 Radiology Diagnostic study note [facility] Main [place] [address] [place] [address] CT Scan Report Signed Patient: Conchis Charles MR#: [id number] 826 : 1955 Acct:[id number] Age/Sex: 68 / F ADM Date: 5 Loc: ER Room: Type: [facility] ER Attending Dr: Copies to: Jm Almaguer [...] Hathaway II, MD 03/15/241935 Signed By: 03/15/241945 [facility] Work Phone: 1([phone]) 558-400411-20-2024 Evaluation note* Author Nova [facility] Authored January 25, 2024 12:19pm 3 months, Sooner if needed, ER if concerns. The above note was written by Nova Rucker LPN, acting as human recorder, note dictated by Dr. Neto Arauz. [facility] Work Phone: 1([phone]) 616-306811-01-2024 History of Present illness Narrative* Ferdinand Galdamez, DO - 01/06/2024 2:10 PM EDT Subjective Conchis Charles is a 68 y.o. female Chief Complaint Follow-up 68-year-old female returns after hospitalization for noncardiac related issues at [facility], primarily for COPD exacerbation and chest [...] (10 mg) once daily., Disp: , Rfl: fndnlmexzfv-whpqtiyjl-lhxojdnb (TRELEGY-ELLIPTA) 100-62.5-25 mcg blister with device, Inhale [...] needed for anxiety., Disp: , Rfl: omega 9-tvu-ktp-fish oil (Fish OiL) 1,000 mg (120 mg-180 [...] exam, discussion and plan. documented in [facility] Work Phone: 1([phone]) 970-101211-01-2024 Instructions* Patient Instructions* Shana Stinson LPN - [...] sent through Care Everywhere. * DASH Diet (Yakut) documented in this [facility] Work Phone: 1([phone]) 775-642109-15-2024 Progress note Author Mejia Aaron [facility] November 20, 2023 2:14pm Note Date/Time November 20, 2023 12:52pm [facility] [address] [place] [address] Hospitalist Progress Note Signed Patient: Conchis Charles MR#: [id number] 826 : 1955 Acct:[id number] Age/Sex: 68 / F Adm Date: 4 Loc: Room: [address] [place] [address] Type: ADM IN Attending Dr: Mejia Aaron [...] Tablet PO 11/17/24 21:59 Not Given HS [facility] Enoxaparin Sodium 40 mg 11/19/23 11:15 [...] signed by RES Meng Eng> 11/20/23 1252 [facility] Work Phone: 1([phone]) 740-591309-14-2024 Consult note Author Anna Child [facility] November 19, 2023 6:50pm Note Date/Time November 19, 2023 6:51pm [facility] [address] [place] [address] Cardiology Consult Note Signed Patient: Conchis Charles MR#: [id number] 826 : 1955 Acct:[id number] Age/Sex: 68 / F Adm Date: 4 Loc: Room: [address] [place] [address] Type: ADM IN Attending Dr: Mejia Aaron [...] negative unless noted below or in HPI [facility] Medical History (Updated 11/18/23 @ 16:43 by [...] Lymph # (Auto) 0.7 L (1.00-4.8) x10E3/uL Ware # (Auto) 0.4 (0.0-0.8) x10E3/uL Eos # [...] of pneumonia per primary team. -Follow-up with [facility] cardiology as scheduled -Will sign off. Please call with questions. Documented By: Anna Child MD 11/19/23 4565 Signed By: <Electronically signed by Anna Child MD> 11/19/23 8650 [facility] Work Phone: 1(453) 565-486409-14-2024 Progress note Author Mejia Aaron [facility] November 19, 2023 11:18am Note Date/Time November 19, 2023 10:57am [facility] [address] [place] [address] Hospitalist Progress Note Signed Patient: Conchis Charles MR#: [id number] 826 : 1955 Acct:[id number] Age/Sex: 68 / F Adm Date: 4 Loc: 3T Room: [address] [place] [address] Type: ADM IN Attending Dr: Mejia Aaron [...] <Electronically signed by Mejia Aaron MD> 11/19/23 2045 [facility] Work Phone: 1([phone]) 950-841909-13-2024 History and physical note Author Mejia Aaron [facility] November 18, 2023 9:23pm Note Date/Time November 18, 2023 6:26pm [facility] [address] [place] [address] Hospitalist H&P Signed with Addenda Patient: Conchis Charles MR#: [id number] 826 : 1955 Acct:[id number] Age/Sex: 68 / F Adm Date: 4 Loc: Room: [address] [place] [address] Type: ADM IN Attending Dr: Mejia Aaron [...] out of the hospital and to [facility] in [place] for the past 2 and half months, [...] and no additional complaints, except as documented [facility] Medical History (Updated 11/18/23 @ 16:43 by [...] % (Auto) 4.0 % (.) 11/18/23 10:24 Ware % (Auto) 6.4 % (.) 11/18/23 10:24 Eos % (Auto) 0.0 % (.) 11/18/23 10:24 Baso % (Auto) 0.3 % (.) 11/18/23 10:24 Nucleat RBC Rel Count 0.1 /100 WBC (0-0.5) 11/18/23 10:24 Neut # (Auto) 18.0 x10E3/uL (1.8-7.7) H 11/18/23 10:24 Lymph # (Auto) 0.8 x10E3/uL (1.00-4.8) L 11/18/23 10:24 Ware # (Auto) 1.3 x10E3/uL (0.0-0.8) H 11/18/23 [...] signed by DO ELZA Eng> 11/18/23 1825 [facility] Work Phone: 1([phone]) 494-187909-13-2024 Evaluation note* Diagnosis Onset Date Resolution Status [...] of breath deleted Septe mber 2023 2:31pm [facility] Work Phone: 1([phone]) 691-928509-13-2024 Evaluation note* Diagnosis Onset Date Resolution Status [...] Oxygen dependent acute January 24, 2024 10:39am [facility] Work Phone: 1([phone]) 948-572609-13-2024 Evaluation note* Diagnosis Onset Date Resolution Status [...] Oxygen dependent acute January 25, 2024 10:32am [facility] Work Phone: 1([phone] 298-948806-17-2024 Evaluation + Plan note* Assessment & Plan Note - MADELINE Coates - 08/22/2023 3:53 PM EDTAssociated Problem(s): Former smoker Has been able to abstain for [address] [facility] Work Phone: [phone] Miscellaneous Notes* Assessment & Plan Note - MADELINE Coates - 08/22/2023 3:53 PM EDTAssociated Problem(s): Former smoker Has been able to abstain for 5 weeks documented in [facility] Work Phone: [phone] 204-137906-17-2024 History of Present illness Narrative* MADELINE Coates - 08/22/2023 3:30 PM EDT Chief Complaint I am slowly recovering Reason for Visit Patient presents to the office today for outpatient follow-up for hospital follow-up. This is initial in clinic evaluation at [facility]. Presents today in wheelchair for ease of transport, is currently at SNF undergoing physical therapy. Accompanied by spouse History of Present Illness Patient was recently hospitalized at [facility]. The patient was seen in Cardiology consult with subsequent cardiovascular management by [facility]. Hospitalization records have been reviewed. 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 Galdamez Cardiovascular testing: Unremarkable echocardiogram Changes to cardiovascular medical regimen at time of discharge: No changes to cardiovascular medication Discharge disposition: SNF for comprehensive rehabilitation program. Patient is a very pleasant 68-year-old female who presents to the office today in a wheelchair, utilizing oxygen treatment. She is completing a comprehensive rehabilitation program at [facility] and reportedly was up ambulating for the [...] mg, Daily cetirizine (ZYRTEC) 10 mg, Daily csnloobszpy-wocdkquoy-fepklgdm (TRELEGY-ELLIPTA) 100-62.5-25 mcg blister with device 1 [...] lisinopril 5 mg, oral, As needed omega 7-cgd-sqf-fish oil (Fish OiL) 1,000 mg (120 mg-180 [...] Addressed This Visit Coronary artery disease involving [place] coronary artery of [place] heart without angina pectoris - Primary Relevant [...] arise. [facility] as needed Jessica Hi MSN, COMPONENT ASSEMBLER-SUPERVISOR [employer], PMHNP-[facility] Please excuse any errors in grammar or translation related to this dictation. Voice recognition software was utilized to prepare this document. documented in this encounterMer[facility] Work Phone: [phone]) 542-735706-17-2024 Instructions* Patient Instructions* MADELINE Coates - 08/22/2023 [...] arise. [facility] as needed [facility] in [facility]Un[facility] Work Phone: 1([phone]) 564-907406-05-2024 Progress note Author Frank Hudson [facility] August 10, 2023 3:30pm Note Date/Time August 10, 2023 3:25p maliha [facility] [address] [place] [address] Hospitalist Progress Note Signed Patient: Conchis Charles MR#: [id number] 826 : 1955 Acct:[id number] Age/Sex: 68 / F Adm Date: 4 Loc: 4 Room: [id number] Type: ADM IN Attending Dr: Frank Hudson [...] Insuln.Pen SUBCUT 08/06/24 07:59 Not Given TID.WM.HS [facility] Protocol Levetiracetam 250 mg 08/07/23 09:00 [...] 1 Mg Tablet PO 08/09/24 21:59 QHS [facility] A&P - Hospitalist Assessment/Plan (1) UMM [...] <Electronically signed by Frank Hudson MD> 08/10/23 9761 [facility] Work Phone: 1([phone]) 482-220806-05-2024 Progress note Author Joni Davila [facility] August 10, 2023 1:46pm Note Date/Time August 10, 2023 1:46p [facility] [address] [place] [address] Nephrology Progress Note Signed Patient: Conchis Charles MR#: [id number] 826 : 1955 Acct:[id number] Age/Sex: 68 / F Adm Date: 4 Loc: Room: [address] [place] [address] Type: ADM IN Attending Dr: Frank Hudson MD Copies to: ~ Date of Service: 08/10/2023 Subjective Subjective Narrative: Ms. Charles is a 68-year-old white male was transferred from [facility] for UMM and hypercalcemia creatinine 2.2, BUN 67 and calcium 14.2 mg/dL. Patient has baseline creatinine around 1 mg/dL. The patient was just discharged from [facility] on July 29 after short admission for COPD exacerbation and pneumonia. During that admission she had UMM related to urine retention that improved after insertion of Hanson catheter that was removed at the time of discharge withsuccessful void trial. Initially she was on IV fluid however it was complicatedby CHF and she was given furosemide before discharge. [facility] 0.9 and calcium 9 mg/dL. Patient presented to [place] with generalized weakness, general compartments, shortness of [...] 100 Mg Capsule) 100 mg PO DAILY [facility] Stop: 08/06/24 08:59 Last Admin: 08/10/23 08:07 Dose: 100 mg Amlodipine Besylate (Amlodipine 5 Mg Tablet) 5 mg PO DAILY [facility] Stop: 08/07/24 11:39 Last Admin: 08/10/23 08:07 Dose: 5 mg Aspirin (Aspirin 81 Mg Tab.Chew) 81 mg PO DAILY [facility] Stop: 08/06/24 08:59 Last Admin: 08/10/23 08:06 Dose: 81 mg Atorvastatin Calcium (Atorvastatin 40 Mg Tablet) 40 mg PO DAILY [facility] Stop: 08/06/24 08:59 Last Admin: 08/10/23 [...] 5,000 Unit/Ml Vial) 5,000 unit SUBCUT Q8HR [facility] Stop: 08/06/24 05:59 Last Admin: 08/10/23 13:24 Dose: 5,000 unit Levofloxacin (Levaquin) 750 mg in 150 mls @ 100 mls/hr IV Q48H [facility] Last Admin: 08/10/23 12:43 Dose: 100 mls/hr Insulin Aspart (Insulin Aspart 300 Units/3 Ml Insuln.Pen) 0 units SUBCUT TID..[facility]; Protocol Stop: 08/06/24 07:59 Last Admin: 08/10/23 12:47 Dose: Not Given Levetiracetam (Levetiracetam 250 Mg Tablet) 250 mg PO BID [facility] Stop: 08/06/24 08:59 Last Admin: 08/10/23 08:11 Dose: 250 mg Levothyroxine Sodium (Levothyroxine 150 Mcg Tablet) 150 mcg PO DAILY@0630 [facility] Stop: 08/06/24 06:29 Last Admin: 08/10/23 06:15 Dose: 150 mcg Oxcarbazepine (Oxcarbazepine 150 Mg Tablet) 450 mg PO TID [facility] Stop: 08/06/24 08:59 Last Admin: 08/10/23 13:24 Dose: 450 mg Prednisone (Prednisone 20 Mg Tablet) 30 mg PO DAILY [facility]; Taper Stop: 08/21/23 08:59 Last Admin: 08/10/23 08:07 Dose: 30 mg Pregabalin (Pregabalin 100 Mg Capsule) 100 mg PO TID [facility] Stop: 02/04/24 13:59 Last Admin: 08/10/23 13:24 Dose: 100 mg Prochlorperazine Edisylate (Prochlorperazine Edisylate 10 Mg/2 Ml Vial) 5 mg IV- PUSH Q4H PRN PRN Reason: Nausea And Vomiting Stop: 08/06/24 00:36 Ropinirole HCl (Ropinirole 1 Mg Tablet) 1 mg PO QHS [facility] Stop: 08/09/24 21:59 Allergies Penicillins Allergy [...] <Electronically signed by Joni Davila MD> 08/10/23 1348 [facility] Work Phone: 1(141) 478-635606-04-2024 Progress note Author uLke Mcguire [facility] August 09, 2023 2:19pm Note Date/Time August 09, 2023 2:16p m [facility] [address] [place] [address] Hospitalist Progress Note Signed Patient: Conchis Charles MR#: [id number] 826 : 1955 Acct:[id number] Age/Sex: 68 / F Adm Date: 4 Loc: 4P Room: [address] [place] [address] Type: ADM IN Attending Dr: Luke Mcguire [...] 1,000 Ml IV 08/06/24 03:14 75 mls/hr .[id number] ANUSHA Administration Insulin Aspart 0 units 08/07/23 [...] 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 Luke Mcguire MD Hospitalist Documented By: Luke Mcguire MD 08/09/231413 Signed By: <Electronically signed by Luke Mcguire MD> 08/09/23 9822 [facility] Work Phone: 1(677) 426-760106-04-2024 Progress note Author Join Davila [facility] August 09, 2023 11:08am Note Date/Time August 09, 2023 11:08 am [facility] [address] [place] [address] Nephrology Progress Note Signed Patient: Conchis Charles MR#: [id number] 826 : 1955 Acct:[id number] Age/Sex: 68 / F Adm Date: 4 Loc: Room: [address] [place] [address] Type: ADM IN Attending Dr: Luke Mcguire MD Copies to: ~ Date of Service: 08/09/2023 Subjective Subjective Narrative: Ms. Charles is a 68-year-old white male was transferred from [facility] for UMM and hypercalcemia creatinine 2.2, BUN 67 and calcium 14.2 mg/dL. Patient has baseline creatinine around 1 mg/dL. The patient was just discharged from [facility] on July 29 after short admission for COPD exacerbation and pneumonia. During that admission she had UMM related to urine retention that improved after insertion of Hanson catheter that was removed at the time of discharge withsuccessful void trial. Initially she was on IV fluid however it was complicatedby CHF and she was given furosemide before discharge. [facility] 0.9 and calcium 9 mg/dL. Patient presented to [place] with generalized weakness, general compartments, shortness of [...] 100 Mg Capsule) 100 mg PO DAILY [facility] Stop: 08/06/24 08:59 Last Admin: 08/09/23 08:45 Dose: 100 mg Amlodipine Besylate (Amlodipine 5 Mg Tablet) 5 mg PO DAILY [facility] Stop: 08/07/24 11:39 Last Admin: 08/09/23 08:49 Dose: 5 mg Aspirin (Aspirin 81 Mg Tab.Chew) 81 mg PO DAILY [facility] Stop: 08/06/24 08:59 Last Admin: 08/09/23 08:46 Dose: 81 mg Atorvastatin Calcium (Atorvastatin 40 Mg Tablet) 40 mg PO DAILY [facility] Stop: 08/06/24 08:59 Last Admin: 08/09/23 08:46 Dose: 40 mg Dextrose (Dextrose 50% In Water 25 Gm/50 Ml Syringe) 0 gm IV-PUSH PRN PRN PRN Reason: Hypoglycemia Stop: 08/06/24 00:42 Glucose (Dextrose 40% Gel 15 Gm Tube) 0 gm PO PRN PRN PRN Reason: Hypoglycemia Stop: 08/06/24 00:42 Heparin Sodium (Porcine) (Heparin 5,000 Unit/Ml Vial) 5,000 unit SUBCUT Q8HR [facility] Stop: 08/06/24 05:59 Last Admin: 08/09/23 09:03 Dose: 5,000 unit Ceftriaxone Sodium (Rocephin) 1 gm in 50 mls @ 100 mls/hr IV Q24H [facility] Last Admin: 08/09/23 09:10 Dose: 100 mls/hr Doxycycline Hyclate (Doxy 100) 100 mg in 100 mls @ 100 mls/hr IV Q12H [facility] Last Admin: 08/09/23 09:45 Dose: 100 mls/hr Sodium Chloride (0.9% Sodium Chloride 1,000 Ml) 1,000 mls @ 75 mls/hr IV .[id number] [facility] Stop: 08/06/24 03:14 Last Admin: 08/09/23 02:23 Dose: 75 mls/hr Insulin Aspart (Insulin Aspart 300 Units/3 Ml Insuln.Pen) 0 units SUBCUT TID.WM.[facility]; Protocol Stop: 08/06/24 07:59 Last Admin: 08/09/23 08:44 Dose: Not Given Levetiracetam (Levetiracetam 250 Mg Tablet) 250 mg PO BID [facility] Stop: 08/06/24 08:59 Last Admin: 08/09/23 08:49 Dose: 250 mg Levothyroxine Sodium (Levothyroxine 150 Mcg Tablet) 150 mcg PO DAILY@0630 [facility] [facility] Stop: 08/06/24 06:29 Last Admin: 08/09/23 06:00 Dose: 150 mcg Oxcarbazepine (Oxcarbazepine 150 Mg Tablet) 450 mg PO TID [facility] Stop: 08/06/24 08:59 Last Admin: 08/09/23 08:47 Dose: 450 mg Prednisone (Prednisone 20 Mg Tablet) 30 mg PO DAILY [facility]; Taper Stop: 08/21/23 08:59 Last Admin: [...] signed by Joni Davila MD> 08/09/23 1108 [facility] Work Phone: 1([phone]) 937-898406-03-2024 Progress note Author Luke Mcguire [facility] August 08, 2023 2:59pm Note Date/Time August 08, 2023 3:00p [facility] ENTER [address] [place] [address] Hospitalist Progress Note Signed Patient: Conchis Charles MR#: [id number] 826 : 1955 Acct:[id number] Age/Sex: 68 / F Adm Date: 4 Loc: 4 Room: 5K4792-9 Type: ADM IN Attending Dr: Luke Mcguire [...] 1,000 Ml IV 08/06/24 03:14 75 mls/hr .[id number] ANUSHA Administration Insulin Aspart 0 units 08/07/23 [...] Tablet PO 08/06/24 08:59 450 mg TID ANSUHA Administration Prednisone 40 mg 08/07/23 09:00 08/08/23 [...] signed by Luke Mcguire MD> 08/08/23 1459 [facility] Work Phone: 1(108) 847-976206-03-2024 Progress note Author Joni Davila [facility] August 08, 2023 11:38am Note Date/Time August 08, 2023 11:38 am [facility] ENTER [address] [place], [place] [id number] Nephrology Progress Note Signed Patient: Conchis Charles MR#: [id number] 826 : 1955 Acct:[id number] Age/Sex: 68 / F Adm Date: 4 Loc: 4 Room: 7L6448-1 Type: ADM IN Attending Dr: Luke Mcguire MD Copies to: ~ Date of Service: 08/08/2023 Subjective Subjective Narrative: Ms. Charles is a 68-year-old white male was transferred from [facility] for UMM and hypercalcemia creatinine 2.2, BUN 67 and calcium 14.2 mg/dL. Patient has baseline creatinine around 1 mg/dL. The patient was just discharged from [facility] on July 29 after short admission for COPD exacerbation and pneumonia. During that admission she had UMM related to urine retention that improved after insertion of Hanson catheter that was removed at the time of discharge withsuccessful void trial. Initially she was on IV fluid however it was complicatedby CHF and she was given furosemide before discharge. [facility] 0.9 and calcium 9 mg/dL. Patient presented to [facility] with generalized weakness, general compartments, shortness of [...] 100 Mg Capsule) 100 mg PO DAILY [facility] Stop: 08/06/24 08:59 Last Admin: 08/08/23 08:13 Dose: 100 mg Aspirin (Aspirin 81 Mg Tab.Chew) 81 mg PO DAILY [facility] Stop: 08/06/24 08:59 Last Admin: 08/08/23 08:12 Dose: 81 mg Atorvastatin Calcium (Atorvastatin 40 Mg Tablet) 40 mg PO DAILY [facility] Stop: 08/06/24 08:59 Last Admin: 08/08/23 08:12 Dose: 40 mg Dextrose (Dextrose 50% In Water 25 Gm/50 Ml Syringe) 0 gm IV-PUSH PRN PRN PRN Reason: Hypoglycemia Stop: 08/06/24 00:42 Glucose (Dextrose 40% Gel 15 Gm Tube) 0 gm PO PRN PRN PRN Reason: Hypoglycemia Stop: 08/06/24 00:42 Heparin Sodium (Porcine) (Heparin 5,000 Unit/Ml Vial) 5,000 unit SUBCUT Q8HR [facility] Stop: 08/06/24 05:59 Last Admin: 08/08/23 05:21 Dose: 5,000 unit Ceftriaxone Sodium (Rocephin) 1 gm in 50 mls @ 100 mls/hr IV Q24H [facility] Last Admin: 08/08/23 09:24 Dose: 100 mls/hr Doxycycline Hyclate (Doxy 100) 100 mg in 100 mls @ 100 mls/hr IV Q12H [facility] Last Admin: 08/08/23 10:32 Dose: 100 mls/hr Sodium Chloride (0.9% Sodium Chloride 1,000 Ml) 1,000 mls @ 75 mls/hr IV .[id number] [facility] Stop: 08/06/24 03:14 Last Admin: 08/08/23 09:11 Dose: 75 mls/hr Insulin Aspart (Insulin Aspart 300 Units/3 Ml Insuln.Pen) 0 units SUBCUT TID.WM.HS [facility]; Protocol Stop: 08/06/24 07:59 Last Admin: 08/08/23 08:11 Dose: Not Given Levetiracetam (Levetiracetam 250 Mg Tablet) 250 mg PO BID [facility] Stop: 08/06/24 08:59 Last Admin: 08/08/23 08:13 Dose: 250 mg Levothyroxine Sodium (Levothyroxine 150 Mcg Tablet) 150 mcg PO DAILY@0630 [facility] Stop: 08/06/24 06:29 Last Admin: 08/08/23 06:11 Dose: Not Given Oxcarbazepine (Oxcarbazepine 150 Mg Tablet) 450 mg PO TID [facility] Stop: 08/06/24 08:59 Last Admin: 08/08/23 08:13 Dose: 450 mg Prednisone (Prednisone 20 Mg Tablet) 40 mg PO DAILY [facility]; Taper Stop: 08/21/23 08:59 Last Admin: 08/08/23 08:11 Dose: 40 mg Pregabalin (Pregabalin 100 Mg Capsule) 200 mg PO TID [facility] Stop: 08/06/24 21:59 Last Admin: 08/08/23 [...] <Electronically signed by Joni Davila MD> 08/08/23 1134 [facility] Work Phone: 1(252) [phone] Progress note Author Ash Alvarenga [facility] August 07, 2023 4:27pm Note Date/Time August 07, 2023 4:27p maliha [facility] ENTER [address] [place] [address] Hospitalist Progress Note Signed Patient: Conchis Charles MR#: [id number] 826 : 1955 Acct:[id number] Age/Sex: 68 / F Adm Date: 4 Loc: 4 Room: [address] [place] [address] Type: ADM IN Attending Dr: Ash Alvarenga [...] year old F who was transferred from [facility] here for UMM and hypercalcemia and [...] DILMA inhibitor and Lasix at home. At [place], found to have BUN 67, Cr 2.2, [...] Vial SUBCUT 08/06/24 05:59 5,000 unit Q8HR ANUHSA Administration Ceftriaxone Sodium 1 gm in 50 mls @ 100 mls/hr 08/07/23 10:00 08/07/23 09:48 Rocephin IV 100 mls/hr Q24H ANUSHA Administration Doxycycline Hyclate 100 mg in 100 mls @ 100 mls/hr 08/07/23 10:30 08/07/23 10:44 Doxy 100 IV 100 mls/hr Q12H ANUSHA Administration Sodium Chloride 1,000 mls @ 75 mls/hr 08/07/23 03:15 08/07/23 13:45 0.9% Sodium Chloride 1,000 Ml IV 08/06/24 03:14 75 mls/hr .[id number] ANUSHA Administration Insulin Aspart 0 units 08/07/23 08:00 08/07/23 13:28 Insulin Aspart 300 Units/3 Ml Insuln.Pen SUBCUT 08/06/24 07:59 Not Given TID.WM.HS [facility] Protocol Levetiracetam 250 mg 08/07/23 09:00 [...] now and repeat in am. -Cr at [facility] 2.2, BUN 67, Ca 14.2. K 4.5. [...] heparin Code status: Full Documented By: Ash Alvarenga MD 08/07/23 1626 Signed By: <Electronically signed by Ash Alvarenga MD> 08/07/23 1627 [facility] Work Phone: 1(675) [phone] Consult note Author Keena Kern [facility] August 07, 2023 12:43pm Note Date/Time August 07, 2023 12:20 pm [facility] ENTER [address] [place], [place] [id number] Nephrology Consult Note Signed Patient: Conchis Charles MR#: [id number] 826 : 1955 Acct:[id number] Age/Sex: 68 / F Adm Date: 4 Loc: Room: [address] [place] [address] Type: ADM IN Attending Dr: Ash Alvarenga MD Copies to: DO Keena Monzon MD Mushtaq Mahmood, MD~ Providers Consult Date: 08/07/23 Requesting Provider: Ash Alvarenga MD Primary Care Provider: Neto Arauz DO HPI Reason for Consult: Hypercalcemia and UMM on admission History of Present Illness: Ms. Charles is a 68-year-old white male was transferred from [facility] for UMM and hypercalcemia creatinine 2.2, BUN 67 and calcium 14.2 mg/dL. Patient has baseline creatinine around 1 mg/dL. The patient was just discharged from [facility] on July 29 after short admission for COPD exacerbation and pneumonia. During that admission she had UMM related to urine retention that improved after insertion of Hanson catheter that was removed at the time of discharge withsuccessful void trial. Initially she was on IV fluid however it was complicatedby CHF and she was given furosemide before discharge. [facility] with [facility] 0.9 and calcium 9 mg/dL. Patient presented to [facility] with generalized weakness, general compartments, shortness of [...] negative unless noted below or in HPI [facility] Medical History Diabetes Hypothyroidism Hyperlipidemia Rupture Achilles [...] 81 Mg Tab.Chew) 81 mg PO DAILY [facility] Stop: 08/06/24 08:59 Last Admin: 08/07/23 09:47 Dose: 81 mg Atorvastatin Calcium (Atorvastatin 40 Mg Tablet) 40 mg PO DAILY [facility] Stop: 08/06/24 08:59 Last Admin: 08/07/23 09:47 Dose: 40 mg Dextrose (Dextrose 50% In Water 25 Gm/50 Ml Syringe) 0 gm IV-PUSH PRN PRN PRN Reason: Hypoglycemia Stop: 08/06/24 00:42 Glucose (Dextrose 40% Gel 15 Gm Tube) 0 gm PO PRN PRN PRN Reason: Hypoglycemia Stop: 08/06/24 00:42 Heparin Sodium (Porcine) (Heparin 5,000 Unit/Ml Vial) 5,000 unit SUBCUT Q8HR [facility] Stop: 08/06/24 05:59 Last Admin: 08/07/23 06:01 Dose: 5,000 unit Ceftriaxone Sodium (Rocephin) 1 gm in 50 mls @ 100 mls/hr IV Q24H [facility] Last Admin: 08/07/23 09:48 Dose: 100 mls/hr Doxycycline Hyclate (Doxy 100) 100 mg in 100 mls @ 100 mls/hr IV Q12H [facility] Last Admin: 08/07/23 10:44 Dose: 100 mls/hr Sodium Chloride (0.9% Sodium Chloride 1,000 Ml) 1,000 mls @ 100 mls/hr IV .[id number] Stop: 08/06/24 03:14 Last Admin: 08/07/23 04:05 Dose: 100 mls/hr Insulin Aspart (Insulin Aspart 300 Units/3 Ml Insuln.Pen) 0 units SUBCUT TID..[facility]; Protocol Stop: 08/06/24 07:59 Last Admin: 08/07/23 09:44 Dose: Not Given Levetiracetam (Levetiracetam 250 Mg Tablet) 250 mg PO BID [facility] Stop: 08/06/24 08:59 Last Admin: 08/07/23 09:46 Dose: 250 mg Levothyroxine Sodium (Levothyroxine 150 Mcg Tablet) 150 mcg PO DAILY@0630 [facility] Stop: 08/06/24 06:29 Last Admin: 08/07/23 06:01 Dose: 150 mcg Oxcarbazepine (Oxcarbazepine 150 Mg Tablet) 450 mg PO TID [facility] Stop: 08/06/24 08:59 Last Admin: 08/07/23 09:47 Dose: 450 mg Prednisone (Prednisone 20 Mg Tablet) 40 mg PO DAILY [facility]; Taper Stop: 08/21/23 08:59 Last Admin: [...] Appearance Clear Urine pH 6.5 Ur Specific Morton 1.012 Urine Protein Negative Urine Glucose (UA) [...] Cristina Hathaway M.D.08/07/2023 8:17 AM Dictation Location: [place] [address] Renal Ultrasound 08/07/23 05:00 IMPRESSION: No hydronephrosis or mass. Impression dictated by: Ana Cristina Hathaway M.D.08/07/2023 10:27 AM Dictation Location: [place] [address] Any impression(s) listed above is documentation that [...] <Electronically signed by MD Keena Kern> 08/07/23 5669 [facility] Work Phone: 1(332) 633-412006-02-2024 History and physical note Author Frank Hudson [facility] August 07, 2023 1:15am Note Date/Time August 07, 2023 12:45 am [facility] ENTER [address] [place] [address] Hospitalist H&P Signed Patient: Conchis Charles MR#: [id number] 826 : 1955 Acct:[id number] Age/Sex: 68 / F Adm Date: 4 Loc: Room: [address] [place] [address] Type: ADM IN Attending Dr: Frank Hudson MD Copies to: Neto Arauz,DO Frank Hudson MD~ HPI DATE OF EXAMINATION: 08/07/23 CHIEF COMPLAINT: Weakness HISTORY OF PRESENT ILLNESS: Patient is a 68 year old F who was transferred from [facility] here for UMM and hypercalcemia and [...] DILMA inhibitor and Lasix at home. At [place], found to have BUN 67, Cr 2.2, [...] except as mentioned elsewhere in the documentation [facility] Medical History Diabetes Hypothyroidism Hyperlipidemia Rupture Achilles [...] signed by Frank Hudson MD> 08/07/23 0115 [facility] Work Phone: 1(373) 417-654305-24-2024 Progress note Author Jaylan Child [facility] July 29, 2023 1:09pm Note Date/Time July 29, 2023 1:09p maliha [facility] ENTER [address] [place] [address] Hospitalist Progress Note Signed Patient: Conchis Charles MR#: [id number] 826 : 1955 Acct:[id number] Age/Sex: 68 / F Adm Date: 4 Loc: Room: [address] [place] [address] Type: ADM IN Attending Dr: Jaylan Child [...] Oil 1,000 mg 07/27/23 09:00 07/29/23 09:46 Pierz-3/Fish Oil 1,000 Mg Capsule PO 07/26/24 08:59 [...] Ml Insuln.Pen SUBCUT 07/25/24 07:59 Not Given TID.WM.[facility] Protocol Levetiracetam 250 mg 07/26/23 21:00 07/29/23 [...] failure: (4) Urinary retention: (5) Type 2 PA (myocardial infarction): (6) Smoker: (7) Sleep apnea: [...] 0 -Supplemental O2 as needed -DuoNejulianna scheduled -Telephone Diaphragm Assembler on smoking cessation UMM ? Held home [...] signed by Jaylan Child DO> 07/29/23 1309 [facility] Work Phone: 1(931) 197-252905-23-2024 Progress note Author Jaylan Child [facility] July 28, 2023 12:06pm Note Date/Time July 28, 2023 12:03 pm [facility] ENTER [address] [place] [address] Hospitalist Progress Note Signed Patient: Conchis Charles MR#: [id number] 826 : 1955 Acct:[id number] Age/Sex: 68 / F Adm Date: 4 Loc: Room: [address] [place] [address] Type: ADM IN Attending Dr: Jaylan Child [...] Oil 1,000 mg 07/27/23 09:00 07/28/23 08:16 Pierz-3/Fish Oil 1,000 Mg Capsule PO 07/26/24 08:59 [...] Insuln.Pen SUBCUT 07/25/24 07:59 Not Given TID.WM.HS [facility] Protocol Levetiracetam 250 mg 07/26/23 21:00 [...] failure: (4) Urinary retention: (5) Type 2 PA (myocardial infarction): (6) Smoker: (7) Sleep apnea: [...] 0 -Supplemental O2 as needed -DuoNebs scheduled -Telephone Diaphragm Assembler on smoking cessation Troponin elevation ?Discontinue heparin [...] signed by Jaylan Child DO> 07/28/23 1206 [facility] Work Phone: 1(934) 909-169605-22-2024 Progress note Author Jaylan Child [facility] July 27, 2023 12:42pm Note Date/Time July 27, 2023 12:42 pm [facility] ENTER [address] [place] [address] Hospitalist Progress Note Signed Patient: Best,Conchis M MR#: [id number] 826 : 1955 Acct:[id number] Age/Sex: 68 / F Adm Date: 4 Loc: 4 Room: [address] [place] [address] Type: ADM IN Attending Dr: Jaylan Child [...] Oil 1,000 mg 07/27/23 09:00 07/27/23 08:35 Pierz-3/Fish Oil 1,000 Mg Capsule PO 07/26/24 08:59 [...] failure: (4) Urinary retention: (5) Type 2 PA (myocardial infarction): (6) Smoker: (7) Sleep apnea: [...] 0 -Supplemental O2 as needed -DuoNebs scheduled -Telephone Diaphragm Assembler on smoking cessation Troponin elevation ?Discontinue heparin [...] signed by Jaylan Child DO> 07/27/23 1242 [facility] Work Phone: 1(113) 408-178005-21-2024 Consult note Author Ciro Galdamez [facility] July 26, 2023 12:58pm Note Date/Time July 26, 2023 12:17 pm [facility] ENTER [address] [place] [address] Cardiology Consult Note Signed Patient: Conchis Charles MR#: [id number] 826 : 1955 Acct:[id number] Age/Sex: 68 / F Adm Date: 4 Loc: Room: [address] [place] [address] Type: ADM IN Attending Dr: Jaylan Child DO Copies to: DO Jaylan Monzon DO W Scott Sheldon, DO~ Cardiology HPI History of Present Illness Consult Date: 07/26/23 Reason for Consult: Elevated troponins HPI: Ms. Charles is a 68 year old female seen in cardiology consultation at request the hospitalist and in conjunction with first-year medical technologist hematology Dr. Ramsey for mildly elevated troponin., We [...] 65%. Patient is not seen consistently by chief ultrasound technologist. Initial troponin was 68.6, this morning at [...] negative unless noted below or in HPI [facility] Medical History (Updated 07/26/23 @ 12:57 by [...] mcg/actuation aerosol inhaler (ProAir HFA) 1 inh [id number] 06/24/23 [History Confirmed 07/26/23] alpha lipoic acid [...] 07/26/23] dextromethorphan-guaifenesin 30 mg-600 mg tablet extended [id number] hr 1 tab PO DAILY PRN cough [...] (Auto) 0.8 L 0.2 L (1.00-4.8) x10E3/uL Ware # (Auto) 0.6 0.2 (0.0-0.8) x10E3/uL Eos [...] ml @ 200 mls/hr IV ONCE ONE Rx#:[id number] Sodium Chloride 0.9% 1,000 ml 1 1000 / 1000 ,000 ml @ 999 mls/hr IV .Q1H1M ONE Rx#:[id number] [id number] 2GM-*NS* 2 gm In 50 50 / 50 ml @ 100 mls/hr IV ONCE ONE Rx #:[id number] Oral 0 / 0 Output: Urine Amount [...] delay A&P - Cardiology (1) Type 2 PA (myocardial infarction): Code(s): I21.A1 - Myocardial infarction [...] <Electronically signed by Ciro Galdamez DO> 07/26/23 8065 [facility] Work Phone: 1(789) 388-483005-21-2024 Progress note Author Jaylan Child [facility] July 26, 2023 12:37pm Note Date/Time July 26, 2023 12:37 pm [facility] ENTER [address] [place] [address] Hospitalist Progress Note Signed Patient: Conchis Charles MR#: [id number] 826 : 1955 Acct:[id number] Age/Sex: 68 / F Adm Date: 4 Loc: Room: [address] [place] [address] Type: ADM IN Attending Dr: Jaylan Child [...] Insuln.Pen SUBCUT 07/25/24 07:59 Not Given TID.WM.[facility] Protocol Methylprednisolone Sodium Succinate 20 mg [...] Syringe IV-PUSH 07/25/24 05:59 Not Given QSHIFT [facility] A&P - Hospitalist Assessment/Plan (1) Sepsis: (2) COPD exacerbation: (3) Acute kidney failure: (4) Urinary retention: (5) Type 2 PA (myocardial infarction): (6) Smoker: (7) Sleep apnea: (8) Hypothyroidism: (9) Hyperlipidemia: Plan Sepsis Acute cystitis Etiology appears to be UTI versus respiratory infection -Start IV ceftriaxone ?She has been afebrile since admission -Follow-up urine, blood cultures COPD exacerbation Acute on chronic hypoxic respiratory failure -IV Solu-Medrol -Supplemental O2 as needed -DuoNebs scheduled -Telephone Diaphragm Assembler on smoking cessation Troponin elevation ?Discontinue heparin [...] signed by Jaylan Child DO> 07/26/23 1237 [facility] Work Phone: 1(825) 889-387305-21-2024 History and physical note Author Mejia Aaron [facility] July 26, 2023 8:13am Note Date/Time July 26, 2023 7:44a m [facility] ENTER [address] [place] [address] Hospitalist H&P Signed Patient: Conchis Charles MR#: [id number] 826 : 1955 Acct:[id number] Age/Sex: 68 / F Adm Date: 4 Loc: Room: [address] [place] [address] Type: ADM IN Attending Dr: Jaylan Child [...] for that which is noted above in [facility] Medical History (Updated 07/26/23 @ 08:06 by [...] mcg/actuation aerosol inhaler (ProAir HFA) 1 inh [id number] 06/24/23 [History Confirmed 06/24/23] alpha lipoic acid [...] 06/24/23] dextromethorphan-guaifenesin 30 mg-600 mg tablet extended [id number] hr tab PO 06/24/23 [History Confirmed 06/24/23] [...] % (Auto) 3.2 % (.) 07/26/23 02:02 Ware % (Auto) 3.2 % (.) 07/26/23 02:02 Eos % (Auto) 0.0 % (.) 07/26/23 02:02 Baso % (Auto) 1.1 % (.) 07/26/23 02:02 Nucleat RBC Rel Count 0.1 /100 WBC (0-0.5) 07/26/23 02:02 Neut # (Auto) 6.3 x10E3/uL (1.8-7.7) 07/26/23 02:02 Lymph # (Auto) 0.2 x10E3/uL (1.00-4.8) L 07/26/23 02:02 Ware # (Auto) 0.2 x10E3/uL (0.0-0.8) 07/26/23 02:02 [...] pH 5.5 (5.0-9.0) 07/26/23 04:29 Ur Specific Morton 1.014 (1.001-1.030) 07/26/23 04:29 Urine Protein Trace [...] failure: (4) Urinary retention: (5) Type 2 PA (myocardial infarction): (6) Smoker: (7) Sleep apnea: (8) Hypothyroidism: (9) Hyperlipidemia: Plan Sepsis Acute cystitis Etiology appears to be UTI versus respiratory infection -Start IV ceftriaxone and azithromycin -Monitor fever curve, WBC, other sepsis parameters -Follow-up urine, blood cultures COPD exacerbation Acute on chronic hypoxic respiratory failure -IV Solu-Medrol -Supplemental O2 as needed -Janie scheduled -Telephone Diaphragm Assembler on smoking cessation Troponin elevation ED staff [...] signed by Mejia Aaron MD> 07/26/23 0813 [facility] Work Phone: 1(180) [phone] Evaluation note* Encounter Date Diagnosis Assessment Notes Treatment Notes Treatment Clinical Notes Feb, COPD exacerbation (ICD-10 - J44.1) [facility] Other 12-28-2023 Evaluation note* Encounter Date Diagnosis [...] treatments as discussed and offered referral to antisqueak chalker. She declined the referral. Feb, Diarrhea, unspecified [...] o2 at all times. Offered referral to antisqueak chalker however she refused. Feb, Cigarette nicotine dependence [...] disorder (ICD-10 - G40.909) Follows with neurologist. [facility] Other 12-19-2023 Evaluation note* Encounter Date Diagnosis Assessment Notes Treatment Notes Treatment Clinical Notes Feb, Chronic obstructive pulmonary disease, unspecified COPD type (ICD-10 - J44.9) [facility] Other 12-12-2023 Evaluation note* Encounter Date Diagnosis Assessment Notes Treatment Notes Treatment Clinical Notes Feb, Hypertension (ICD-10 - I10) [facility] Response got Denied on 2023-02-15 16:12:39 for 'Potassium Chloride ER 20 MEQ Tablet Extended Release'Pharmacy Notes: Prescription not found. Contact Pharmacy by other means [facility] Other 10-30-2023 Evaluation note* Encounter Date Diagnosis Assessment Notes Treatment Notes Treatment Clinical Notes Dec, Hypothyroidism (ICD-10 - E03.9) [facility] Other 06-28-2023 Evaluation note* Encounter Date Diagnosis Assessment Notes Treatment Notes Treatment Clinical Notes Aug, Neuropathy (ICD-10 - G62.9) [facility] Other 06-26-2023 [facility] Progress note Author José Luis Fuentes [facility] August 30, 2022 1:33pm Note Date/Time August 30, 2022 1:34 pm [facility] EN[facility] [address] [place] [address] Hospitalist Progress Note Signed Patient: Conchis Charles MR#: [id number] 826 : 1955 Acct:[id number] Age/Sex: 67 / F Adm Date: 3 Loc: Room: [address] [place] [address] Type: ADM IN Attending Dr: José Luis [...] Oil 1,000 mg 08/29/22 09:00 08/29/22 08:48 Pierz-3/Fish Oil 1,000 Mg Capsule PO 08/29/23 08:59 [...] signed by José Luis Fuentes MD> 08/30/223 [facility] Work Phone: 1([phone]) 713-223906-26-2023 Evaluation note* Encounter Date Diagnosis Assessment Notes Treatment Notes Treatment Clinical Notes Aug, Neuropathy (ICD-10 - G62.9) [facility] Other 06-26-2023 Hospital Discharge instructionsAmbulatory Orders* Initiate Home Health Time Frame: 08/30/22, Location: Determined By Patient Additional Instructions Continue use of oxygen as per chronic orders. PT to eval and treat. DISCHARGE INSTRUCTIONS FOR CARDIAC ASSEMBLER FOR PULLER OVER MACHINE PHONE NUMBER OF YOUR PHYSICIAN: [phone] PROCEDURE: Heart Cath The following instructions have [...] cold, numb, blue or white, call the chief ultrasound technologist immediately. 4. ACTIVITY: You are advised to [...] bottle, follow the instructions on the bottle. [facility] is not responsible for incorrect prescription information provided by the patient during their visit. Do not stop your medications without consulting your health care provider. Please take the list with you to your next doctor's appointment.[facility] Work Phone: 1(842) 876-602806-25-2023 Consult note Author Ferdinand Norris [facility] August 29, 2022 4:12pm Note Date/Time August 29, 2022 4:12 pm [facility] EN[facility] [address] [place] [address] Cardiology Consult Note Signed Patient: Conchis Charles MR#: [id number] 826 : 1955 Acct:[id number] Age/Sex: 67 / F Adm Date: 3 Loc: Room: [address] [place] [address] Type: ADM INOo Attending Dr: Lucian Bruno [...] tosmoke and was not seen by a chief ultrasound technologist on a regular basis. Risk factor management [...] PO DAILY 07/17/17 [History Confirmed 08/28/22] fish [id number] C-vit E 2,000 mg-650 mg-12 mg/2.5 g [...] Code(s): I25.10 - Atherosclerotic heart disease of [place] coronary artery without angina pectoris (2) Anginal [...] <Electronically signed by MD Ferdinand Norris> 08/29/22 9111 [facility] Work Phone: 1([phone]) 184-874306-25-2023 Progress note Author Lucian Bruno [facility] August 29, 2022 2:42pm Note Date/Time August 29, 2022 2:42 pm [facility] ENTER [address] [place] [address] Hospitalist Progress Note Signed Patient: Conchis Charles MR#: [id number] 826 : 1955 Acct:[id number] Age/Sex: 67 / F Adm Date: 3 Loc: Room: [address] [place] [address] Type: ADM INOo Attending Dr: Lucian Bruno [...] Oil 1,000 mg 08/29/22 09:00 08/29/22 08:48 Pierz-3/Fish Oil 1,000 Mg Capsule PO 08/29/23 08:59 [...] signed by Lucian Bruno DO> 08/29/22 1442 [facility] Work Phone: 1(830) 215-443206-24-2023 History and physical note Author Lucian Bruno [facility] August 28, 2022 7:39pm Note Date/Time August 28, 2022 7:32 pm [facility] [address] [place] [address] Hospitalist H&P Signed Patient: Conchis Charles MR#: [id number] 826 : 1955 Acct:[id number] Age/Sex: 67 / F Adm Date: 3 Loc: Room: [address] [place] [address] Type: ADM INOo Attending Dr: Lucian Bruno [...] PO DAILY 07/17/17 [History Confirmed 08/28/22] fish [id number] C-vit E 2,000 mg-650 mg-12 mg/2.5 g [...] % (Auto) 13.8 % (.) 08/28/22 14:08 Ware % (Auto) 7.2 % (.) 08/28/22 14:08 Eos % (Auto) 0.3 % (.) 08/28/22 14:08 Baso % (Auto) 0.6 % (.) 08/28/22 14:08 Nucleat RBC Rel Count 0.1 /100 WBC (0-0.5) 08/28/22 14:08 Neut # (Auto) 6.4 x10E3/uL (1.8-7.7) 08/28/22 14:08 Lymph # (Auto) 1.1 x10E3/uL (1.00-4.8) 08/28/22 14:08 Ware # (Auto) 0.6 x10E3/uL (0.0-0.8) 08/28/22 14:08 [...] <Electronically signed by Lucian Bruno DO> 08/28/221938 [facility] Work Phone: 1(256) 418-861706-21-2023 Evaluation note* Encounter Date Diagnosis Assessment Notes Treatment Notes Treatment Clinical Notes Aug, Neuropathy (ICD-10 - G62.9) [facility] Other 06-07-2023 Evaluation note* Encounter Date Diagnosis Assessment Notes Treatment Notes Treatment Clinical Notes Aug, Neuropathy (ICD-10 - G62.9) Aug, Hypertension (ICD-10 - I10) Aug, Hyperlipidemia (ICD-10 - E78.5) Aug, Diabetes (ICD-10 - E11.9) [facility] Other 04-25-2023 Evaluation note* Encounter Date Diagnosis [...] is to continue with the above inhaler. [facility] Other 04-20-2023 Evaluation note* Encounter Date Diagnosis Assessment Notes Treatment Notes Treatment Clinical Notes Jun, Hypertension (ICD-10 - I10) [facility] Other 04-14-2023 Evaluation note* Encounter Date Diagnosis Assessment Notes Treatment Notes Treatment Clinical Notes Jun, Neuropathy (ICD-10 - G62.9) [facility] Other 01-17-2023 Evaluation note* Encounter Date Diagnosis Assessment Notes Treatment Notes Treatment Clinical Notes Mar, Neuropathy (ICD-10 - G62.9) [facility] Other 01-09-2023 Evaluation note* Encounter Date Diagnosis Assessment Notes Treatment Notes Treatment Clinical Notes Mar, Hypertension (ICD-10 - I10) Mar, Hyperlipidemia (ICD-10 - E78.5) [facility] Other 01-06-2023 Evaluation note* Encounter Date Diagnosis Assessment Notes Treatment Notes Treatment Clinical Notes Mar, Hypertension (ICD-10 - I10) [facility] Other 01-02-2023 Evaluation note* Encounter Date Diagnosis Assessment Notes Treatment Notes Treatment Clinical Notes Mar, Diabetes (ICD-10 - E11.9) [facility] Other 12-29-2022 Evaluation note* Encounter Date Diagnosis [...] keep appointment with Dr. Reyes next week. [facility] Other 11-18-2022 Evaluation note* Encounter Date Diagnosis Assessment Notes Treatment Notes Treatment Clinical Notes Jan, COPD exacerbation (ICD-10 - J44.1) Jan, Chronic bronchitis with COPD (chronic obstructive pulmonary disease) (ICD-10 - J44.9) [facility] Other 10-27-2022 Evaluation note* Encounter Date Diagnosis [...] - E11.9) Dec, Hyperlipidemia (ICD-10 - E78.5) [facility] Other 10-03-2022 Evaluation note* Encounter Date Diagnosis Assessment Notes Treatment Notes Treatment Clinical Notes Dec, Hyperlipidemia (ICD-10 - E78.5) Dec, Chronic bronchitis with COPD (chronic obstructive pulmonary disease) (ICD-10 - J44.9) Dec, Hypertension (ICD-10 - I10) [facility] Other 07-14-2022 Evaluation note* Encounter Date Diagnosis [...] is to f/u with neurology as scheduled. [facility] Other 07-05-2022 Evaluation note* Encounter Date Diagnosis Assessment Notes Treatment Notes Treatment Clinical Notes Sep, Hypertension (ICD-10 - I10) [facility] Other 04-22-2022 Evaluation note* Encounter Date Diagnosis Assessment Notes Treatment Notes Treatment Clinical Notes Jun, Bronchitis (ICD-10 - J40) [facility] Other 04-15-2022 Evaluation note* Encounter Date Diagnosis Assessment Notes Treatment Notes Treatment Clinical Notes Jun, Neuropathy (ICD-10 - G62.9) [facility] Other 03-29-2022 Evaluation note* Encounter Date Diagnosis [...] - E78.5) Blood work ordered for September. [facility] Other 03-04-2022 Evaluation note* Encounter Date Diagnosis Assessment Notes Treatment Notes Treatment Clinical Notes May, Chronic bronchitis with COPD (chronic obstructive pulmonary disease) (ICD-10 - J44.9) May, Hypertension (ICD-10 - I10) May, Diabetes (ICD-10 - E11.9) [facility] Other 12-16-2021 Evaluation note* Encounter Date Diagnosis [...] J40) I did prescribe the above medications. [facility] Other 11-22-2021 Evaluation note* Encounter Date Diagnosis Assessment Notes Treatment Notes Treatment Clinical Notes Jan, Diabetes (ICD-10 - E11.9) [facility] Other 11-11-2021 Evaluation note* Encounter Date Diagnosis [...] continue to follow with [facility] as scheduled. [facility] Other 10-26-2021 Evaluation note* Encounter Date Diagnosis [...] Hyperlipidemia (ICD-10 - E78.5) Blood work ordered. [facility] Other 10-26-2021 Evaluation note* Encounter Date Diagnosis Assessment Notes Treatment Notes Treatment Clinical Notes Dec, Neuropathy (ICD-10 - G62.9) [facility] Other 05-28-2014 History general Narrative - Reported* Type Description Date Medical History achillies lengthening Medical History foot ulcer Medical History 08/01/13 Labs [facility] Medical History mammogram 08/07/[address] [...] 05/06 and 07/2019 Hospitalization History orbital cellulitis; [facility] 10/2014 Hospitalization History SOB/Cough; [facility] 2008 Hospitalization History [facility]; COPD exacerbation 07/03/16 [facility] Other 05-28-2014 History general Narrative - Reported* Type Description Date Medical History achillies lengthening Medical History foot ulcer Medical History 08/01/13 Labs [facility] Medical History mammogram 08/07/[address] [...] cardiac cath 09/01/22 Hospitalization History orbital cellulitis; [facility] 10/2014 Hospitalization History SOB/Cough; [facility] 2008 Hospitalization History [facility]; COPD exacerbation 07/03/16 [facility] Other Consult note Author W Robel Galdamez [facility] July 26, 2023 12:58pm Note Date/Time July 26, 2023 12:17 pm [facility] [address] [place] [address] Cardiology Consult Note Signed Patient: Conchis Charles MR#: [id number] 826 : 1955 Acct:[id number] Age/Sex: 68 / F Adm Date: 4 Loc: Room: [address] [place] [address] Type: ADM IN Attending Dr: Jaylan Child DO Copies to: Neto Arauz,DO Jaylan Child, DO Ciro Galdamez DO~ Cardiology HPI History of Present Illness Consult Date: 07/26/23 Reason for Consult: Elevated troponins HPI: Ms. Charles is a 68 year old female seen in cardiology consultation at request the hospitalist and in conjunction with first-year medical technologist hematology Dr. Ramsey for mildly elevated troponin., We [...] 65%. Patient is not seen consistently by chief ultrasound technologist. Initial troponin was 68.6, this morning at [...] negative unless noted below or in HPI [facility] Medical History (Updated 07/26/23 @ 12:57 by [...] mcg/actuation aerosol inhaler (ProAir HFA) 1 inh [id number] 06/24/23 [History Confirmed 07/26/23] alpha lipoic acid [...] 07/26/23] dextromethorphan-guaifenesin 30 mg-600 mg tablet extended esveodc69 hr 1 tab PO DAILY PRN cough [...] (Auto) 0.8 L 0.2 L (1.00-4.8) x10E3/uL Ware # (Auto) 0.6 0.2 (0.0-0.8) x10E3/uL Eos [...] ml @ 200 mls/hr IV ONCE ONE Rx#:[id number] Sodium Chloride 0.9% 1,000 ml 1 1000 / 1000 ,000 ml @ 999 mls/hr IV .Q1H1M ONE Rx#:[id number] cefTRIAXone 2GM-*NS* 2 gm In 50 50 / 50 ml @ 100 mls/hr IV ONCE ONE Rx #:[id number] Oral 0 / 0 Output: Urine Amount [...] delay A&P - Cardiology (1) Type 2 PA (myocardial infarction): Code(s): I21.A1 - Myocardial infarction [...] signed by Ciro Galdamez, > 07/26/23 1258 [facility] Work Phone: Evaluation + Plan note No data available for this section [facility] evaluation noteNo InformationNort [employer] Other Evaluation note* Diagnosis Onset Date Resolution Status Acute electrocardiogram changes acute Chest pain acute Elevated troponin acute [facility] Work Phone: Evaluation note* Diagnosis Onset Date Resolution Status Abnormal EKG acute Acute electrocardiogram changes acute Anginal equivalent acute Chest pain acute Coronary artery disease acut e Elevated troponin acute [facility] Work Phone: Evaluation noteNo assessment information available [facility] Work Phone: Evalulcuet note* Diagnosis Onset Date Resolution Status Acute exacerbation of chroni c obstructive pulmonary disease acute Acute kidney failure acute Acute non-ST elevation myocardial infarction (NSTEMI) acute [facility] Work Phone: Evaluation note* Diagnosis Onset Date Resolution Status COPD exacerbation acute Acute kidney failure acute Acute non-ST elevation myocardial infarction (NSTEMI) acute Diabetes acute Hyperlipidemia acute Hypothyroidism acute Sepsis acute Sleep apnea acute Smoker acute Type 2 PA (myocardial infarction) acute Urinary retention acute UTI (urinary tract infection) acute [facility] Work Phone: Evaluation note* Diagnosis Onset Date Resolution Status Sleep apnea acute Smoker acute COPD exacerbation resolved Acute kidney failure resolve d Acute non-ST elevation myocardial infarction (NSTEMI) resolved Sepsis resolved Type 2 PA (myocardial infarction) resolved Urinary retention resolved UTI (urinary tract infection) resolved UMM (acute kidney injury) ac kristofer COPD (chronic obstructive pulmonary disease) acute COPD exacerbation acute History of parathyroidectomy acute Hypercalcemia acute Pneumonia acute [facility] Work Phone: Evaluation note* Diagnosis Coronary artery disease involving [place] coronary artery of [place] heart without angina pectoris- Primary Essential hypertension Unspecified essential hypertension Mixed hyperlipidemia Diabetes mellitus type II, non insulin dependent (Multi) Type II or unspecified type diabetes mellitus without mention of complication, not stated as uncontrolled BMI 27.0-27.9,adult Chronic obstructive pulmonary disease, unspecified COPD type (Multi) Former smoker Personal history of tobacco use, presenting hazards to health documented in this encounter [facility] Work Phone: Evaluation note* Diagnosis Onset Date Resolution Status Sleep apnea acute Smoker acute COPD exacerbation resolved Acute kidney failure resolve d Acute non-ST elevation myocardial infarction (NSTEMI) resolved Sepsis resolved Type 2 PA (myocardial infarction) resolved Urinary retention resolved UTI (urinary tract infection) resolved UMM (acute kidney injury) re solved UMM (acute kidney injury) re solved [facility] Work Phone: Evaluation note* Diagnosis Onset Date Resolution Status Sleep apnea acute Smoker acute COPD exacerbation resolved Acute kidney failure resolve d Acute non-ST elevation myocardial infarction (NSTEMI) resolved Sepsis resolved Type 2 PA (myocardial infarction) resolved Urinary retention resolved UTI (urinary tract infection) resolved UMM (acute kidney injury) re solved UMM (acute kidney injury) re solved COPD (chronic obstructive pulmonary disease) acute Oxygen dependent acute [facility] Work Phone: Evaluation note* Diagnosis Onset Date Resolution Status Hypothyroidism acute Sleep apnea acute Smoker acute COPD exacerbation resolved Acute kidney failure resolve d Acute non-ST elevation myocardial infarction (NSTEMI) resolved Sepsis resolved Type 2 PA (myocardial infarction) resolved Urinary retention resolved UTI (urinary tract infection) resolved Hypercalcemia acute UMM (acute kidney injury) re solved Hypercalcemia acute UMM (acute kidney injury) re solved COPD (chronic obstructive pulmonary disease) acute Oxygen dependent acute COPD (chronic obstructive pulmonary disease) acute Hypercalcemia acute Hypothyroidism acute Other hyperlipidemia acute Pneumonia due to COVID-19 virus acute Renal insufficiency acute [facility] Work Phone: Evaluation note* Diagnosis Onset Date Resolution Status Hypothyroidism acute Sleep apnea acute Smoker acute COPD exacerbation resolved Acute kidney failure resolve d Acute non-ST elevation myocardial infarction (NSTEMI) resolved Sepsis resolved Type 2 PA (myocardial infarction) resolved Urinary retention resolved UTI (urinary tract infection) resolved Hypercalcemia acute UMM (acute kidney injury) re solved Hypercalcemia acute UMM (acute kidney injury) re solved COPD (chronic obstructive pulmonary disease) acute Oxygen dependent acute COPD (chronic obstructive pulmonary disease) acute Hypercalcemia acute Hypothyroidism acute Neuropathy acute Nicotine dependence acute Other hyperlipidemia acute Pneumonia due to COVID-19 virus acute Renal insufficiency acute [facility] Work Phone: Evaluation note* Diagnosis [...] pneumonia) acute Elevated troponin acute Sepsis acute [facility] Work Phone: Evaluation note* Diagnosis [...] acute Sepsis acute Shortness of breath acute [facility] Work Phone: Evaluation note* Diagnosis Neuropathy Mononeuritis of unspecified site [facility] Diagnosis Coronary artery disease involving [place] coronary artery of [place] heart without angina pectoris- Primary Essential hypertension [...] hazards to health documented in this encounter [facility] Work Phone: History and physical note Author Mejia Aaron [facility] July 26, 2023 8:13am Note Date/Time July 26, 2023 7:44a m [facility] [address] [place] [address] Hospitalist H&P Signed Patient: Conchis Charles MR#: [id number] 826 : 1955 Acct:[id number] Age/Sex: 68 / F Adm Date: 4 Loc: Room: [address] [place] [address] Type: ADM IN Attending Dr: Jaylan Child [...] for that which is noted above in [facility] Medical History (Updated 07/26/23 @ 08:06 by [...] mcg/actuation aerosol inhaler (ProAir HFA) 1 inh [id number] 06/24/23 [History Confirmed 06/24/23] alpha lipoic acid [...] 06/24/23] dextromethorphan-guaifenesin 30 mg-600 mg tablet extended atvizxs27 hr tab PO 06/24/23 [History Confirmed 06/24/23] [...] % (Auto) 3.2 % (.) 07/26/23 02:02 Ware % (Auto) 3.2 % (.) 07/26/23 02:02 Eos % (Auto) 0.0 % (.) 07/26/23 02:02 Baso % (Auto) 1.1 % (.) 07/26/23 02:02 Nucleat RBC Rel Count 0.1 /100 WBC (0-0.5) 07/26/23 02:02 Neut # (Auto) 6.3 x10E3/uL (1.8-7.7) 07/26/23 02:02 Lymph # (Auto) 0.2 x10E3/uL (1.00-4.8) L 07/26/23 02:02 Ware # (Auto) 0.2 x10E3/uL (0.0-0.8) 07/26/23 02:02 [...] pH 5.5 (5.0-9.0) 07/26/23 04:29 Ur Specific Morton 1.014 (1.001-1.030) 07/26/23 04:29 Urine Protein Trace [...] failure: (4) Urinary retention: (5) Type 2 PA (myocardial infarction): (6) Smoker: (7) Sleep apnea: (8) Hypothyroidism: (9) Hyperlipidemia: Plan Sepsis Acute cystitis Etiology appears to be UTI versus respiratory infection -Start IV ceftriaxone and azithromycin -Monitor fever curve, WBC, other sepsis parameters -Follow-up urine, blood cultures COPD exacerbation Acute on chronic hypoxic respiratory failure -IV Solu-Medrol -Supplemental O2 as needed -DuoNebs scheduled -Telephone Diaphragm Assembler on smoking cessation Troponin elevation ED staff [...] signed by Mejia Aaron MD> 07/26/23 0813 [facility] Work Phone: Hospital Discharge instructions Additional Instructions Follow-up with your primary care doctor Return to ED if develop worsening symptoms or [facility] Work Phone: Hospital Discharge instructions Additional Instructions [facility] Facility to manage care: - Full code - PT/OT eval and treat - Routine vital signs - Fingerstick blood sugar ACHS - Intermittent feeding supervision - Oxygen at 3L per nasal cannula, titrate as needed to keep pox > 90% [facility] Work Phone: Hospital Discharge instructions Additional Instructions Continue current meds Follow-up with your private physician [facility] if [facility] are [facility] Work Phone: Hospital Discharge instructions Additional Instructions SNF TO MANAGE: PT/OT to eval and treat Monitor VS per protocol Monitor daily weights Monitor Respiratory and Cardiac assessments--Respiratory failure, COPD, CHF Monitor Cardiac assessment--Elevated troponin Oxygen currently at 5l per NC Maintain high risk fall precautions Please follow and provide education on CHF instructions [facility] Work Phone: Progress note Author Jaylan Child [facility] July 26, 2023 12:37pm Note Date/Time July 26, 2023 12:37 pm [facility] [address] [place] [address] Hospitalist Progress Note Signed Patient: Conchis Charles MR#: [id number] 826 : 1955 Acct:[id number] Age/Sex: 68 / F Adm Date: 4 Loc: Room: [address] [place] [address] Type: ADM IN Attending Dr: Jaylan Child [...] failure: (4) Urinary retention: (5) Type 2 PA (myocardial infarction): (6) Smoker: (7) Sleep apnea: (8) Hypothyroidism: (9) Hyperlipidemia: Plan Sepsis Acute cystitis Etiology appears to be UTI versus respiratory infection -Start IV ceftriaxone ?She has been afebrile since admission -Follow-up urine, blood cultures COPD exacerbation Acute on chronic hypoxic respiratory failure -IV Solu-Medrol -Supplemental O2 as needed -DuoNebs scheduled -Telephone Diaphragm Assembler on smoking cessation Troponin elevation ?Discontinue heparin [...] signed by Jaylan Child, > 07/26/23 1237 [facility] Work Phone: Progress note Author Jaylan Child [facility] July 27, 2023 12:42pm Note Date/Time July 27, 2023 12:42 pm [facility] [address] [place] [address] Hospitalist Progress Note Signed Patient: Conchis Charles MR#: [id number] 826 : 1955 Acct:[id number] Age/Sex: 68 / F Adm Date: 4 Loc: Room: [address] [place] [address] Type: ADM IN Attending Dr: Jaylan Child [...] Oil 1,000 mg 07/27/23 09:00 07/27/23 08:35 Pierz-3/Fish Oil 1,000 Mg Capsule PO 07/26/24 08:59 [...] failure: (4) Urinary retention: (5) Type 2 PA (myocardial infarction): (6) Smoker: (7) Sleep apnea: [...] 0 -Supplemental O2 as needed -Janie scheduled -Telephone Diaphragm Assembler on smoking cessation Troponin elevation ?Discontinue heparin [...] signed by Jaylan Child DO> 07/27/23 1242 [facility] Work Phone: Progress note Author Jaylan Child [facility] July 28, 2023 12:06pm Note Date/Time July 28, 2023 12:03 pm [facility] [address] [place] [address] Hospitalist Progress Note Signed Patient: Conchis Chalres MR#: [id number] 826 : 1955 Acct:[id number] Age/Sex: 68 / F Adm Date: 4 Loc: Room: [address] [place] [address] Type: ADM IN Attending Dr: Jaylan Child [...] Oil 1,000 mg 07/27/23 09:00 07/28/23 08:16 Pierz-3/Fish Oil 1,000 Mg Capsule PO 07/26/24 08:59 [...] Insuln.Pen SUBCUT 07/25/24 07:59 Not Given TID.WM.HS [facility] Protocol Levetiracetam 250 mg 07/26/23 21:00 [...] failure: (4) Urinary retention: (5) Type 2 PA (myocardial infarction): (6) Smoker: (7) Sleep apnea: [...] 0 -Supplemental O2 as needed -DuoNebs scheduled -Telephone Diaphragm Assembler on smoking cessation Troponin elevation ?Discontinue heparin [...] signed by Jaylan Child DO> 07/28/23 1206 [facility] Work Phone: Progress note Author Jaylan Child [facility] July 29, 2023 1:09pm Note Date/Time July 29, 2023 1:09p maliha [facility] [address] [place] [address] Hospitalist Progress Note Signed Patient: Conchis Charles MR#: [id number] 826 : 1955 Acct:[id number] Age/Sex: 68 / F Adm Date: 4 Loc: Room: [address] [place] [address] Type: ADM IN Attending Dr: Jaylan Child [...] Oil 1,000 mg 07/27/23 09:00 07/29/23 09:46 Pierz-3/Fish Oil 1,000 Mg Capsule PO 07/26/24 08:59 [...] Insuln.Pen SUBCUT 07/25/24 07:59 Not Given TID.WM.[facility] Protocol Levetiracetam 250 mg 07/26/23 21:00 [...] failure: (4) Urinary retention: (5) Type 2 PA (myocardial infarction): (6) Smoker: (7) Sleep apnea: [...] 0 -Supplemental O2 as needed -Janie scheduled -Telephone Diaphragm Assembler on smoking cessation UMM ? Held home [...] signed by Jaylan Child, > 07/29/23 1309 [facility] Work Phone: Progress note Author Joni Garciaalva [facility] August 11, 2023 1:37pm Note Date/Time August 11, 2023 1:37p m [facility] [address] [place] [address] Nephrology Progress Note Signed Patient: Conchis Charles MR#: [id number] 826 : 1955 Acct:[id number] Age/Sex: 68 / F Adm Date: 4 Loc: Room: 3C4944-1 Type: ADM IN Attending Dr: Frank Hudson MD Copies to: ~ Date of Service: 08/11/2023 Subjective Subjective Narrative: Ms. Charles is a 68-year-old white male was transferred from [facility] for UMM and hypercalcemia creatinine 2.2, BUN 67 and calcium 14.2 mg/dL. Patient has baseline creatinine around 1 mg/dL. The patient was just discharged from [facility] on July 29 after short admission for COPD exacerbation and pneumonia. During that admission she had UMM related to urine retention that improved after insertion of Hanson catheter that was removed at the time of discharge withsuccessful void trial. Initially she was on IV fluid however it was complicatedby CHF and she was given furosemide before discharge. [facility] 0.9 and calcium 9 mg/dL. Patient presented to [facility] with generalized weakness, general compartments, shortness of [...] 5 Mg Tablet) 5 mg PO DAILY [facility] Stop: 08/07/24 11:39 Last Admin: 08/11/23 09:52 Dose: 5 mg Aspirin (Aspirin 81 Mg Tab.Chew) 81 mg PO DAILY [facility] Stop: 08/06/24 08:59 Last Admin: 08/11/23 09:53 Dose: 81 mg Atorvastatin Calcium (Atorvastatin 40 Mg Tablet) 40 mg PO DAILY [facility] Stop: 08/06/24 08:59 Last Admin: 08/11/23 [...] 5,000 Unit/Ml Vial) 5,000 unit SUBCUT Q8HR [facility] Stop: 08/06/24 05:59 Last Admin: 08/11/23 08:09 Dose: 5,000 unit Levofloxacin (Levaquin) 750 mg in 150 mls @ 100 mls/hr IV Q48H [facility] Last Admin: 08/10/23 12:43 Dose: 100 mls/hr Insulin Aspart (Insulin Aspart 300 Units/3 Ml Insuln.Pen) 0 units SUBCUT TID..[facility]; Protocol Stop: 08/06/24 07:59 Last Admin: 08/11/23 09:28 Dose: Not Given Levetiracetam (Levetiracetam 250 Mg Tablet) 250 mg PO BID [facility] Stop: 08/06/24 08:59 Last Admin: 08/11/23 09:53 Dose: 250 mg Levothyroxine Sodium (Levothyroxine 150 Mcg Tablet) 150 mcg PO DAILY@0630 [facility] Stop: 08/06/24 06:29 Last Admin: 08/11/23 08:07 Dose: 150 mcg Oxcarbazepine (Oxcarbazepine 150 Mg Tablet) 450 mg PO TID [facility] Stop: 08/06/24 08:59 Last Admin: 08/11/23 [...] Cristina Hathaway M.D.08/10/2023 5:45 PM Dictation Location: [place] [address] Any impression(s) listed above is documentation that [...] signed by Joni Davila MD> 08/11/23 1337 [facility] Work Phone: Progress note No data available for this section [facility] Summary Purpose Family History No Family [...] Hypothyroidism Sepsis Sleep apnea Smoker Type 2 PA (myocardial infarction) Urinary retention UTI (urinary tract infection) Chief Complaint Amb Documentation sob Hypercalcemia UMM pneumonia Hypercalcemia UMM pneumonia Reason for Visit Sleep apnea Smoker COPD exacerbation Acute kidney failure Acute non-ST elevation myocardial infarction (NSTEMI) Sepsis Type 2 PA (myocardial infarction) Urinary retention UTI (urinary tract infection) UMM (acute kidney injury) COPD (chronic obstructive pulmonary disease) COPD exacerbation History of parathyroidectomy Hypercalcemia Pneumonia Chief Complaint Amb Documentation sob Hypercalcemia UMM pneumonia Hypercalcemia UMM pneumonia RENAL HOSP F/U Reason for Visit Sleep apnea Smoker COPD exacerbation Acute kidney failure Acute non-ST elevation myocardial infarction (NSTEMI) Sepsis Type 2 PA (myocardial infarction) Urinary retention UTI (urinary tract infection) UMM (acute kidney injury) COPD (chronic obstructive pulmonary disease) COPD exacerbation History of parathyroidectomy Hypercalcemia Pneumonia Chief Complaint sob Hypercalcemia UMM pneumonia Hypercalcemia UMM pneumonia RENAL HOSP F/U j96.21 j44.1 j96.21 j44.1 Reason for Visit Sleep apnea Smoker COPD exacerbation Acute kidney failure Acute non-ST elevation myocardial infarction (NSTEMI) Sepsis Type 2 PA (myocardial infarction) Urinary retention UTI (urinary tract infection) UMM (acute kidney injury) UMM (acute kidney injury) Chief Complaint sob Hypercalcemia UMM pneumonia Hypercalcemia UMM pneumonia RENAL HOSP F/U j96.21 j44.1 j96.21 j44.1 Amb Documentation Ref: Dr. Garcia COPD and SOB Reason for Visit Sleep apnea Smoker COPD exacerbation Acute kidney failure Acute non-ST elevation myocardial infarction (NSTEMI) Sepsis Type 2 PA (myocardial infarction) Urinary retention UTI (urinary tract [...] elevation myocardial infarction (NSTEMI) Sepsis Type 2 PA (myocardial infarction) Urinary retention UTI (urinary tract [...] elevation myocardial infarction (NSTEMI) Sepsis Type 2 PA (myocardial infarction) Urinary retention UTI (urinary tract [...] mo f/u COPD January 24, 2024 10:39am Hosp/[facility] f/u/HOSP BED DOCUMENTATION January 25, 2024 10:32am Reason for Visit Admit Date Acute exacerbation of chroni c obstructive pulmonary disease November 18, 2023 2:31pm [facility] 2:31pm COPD (chronic obstructive pulmonary dise [...] mo f/u COPD January 24, 2024 10:39am Hosp/[facility] f/u/HOSP BED DOCUMENTATION January 25, 2024 10:32am [...] 2024 8:18pm Acute cystitis with positive culture, [facility] hematuria February 29, 2024 8:18pm Acute [...] mo f/u COPD January 24, 2024 10:39am Hosp/[facility] f/u/HOSP BED DOCUMENTATION January 25, 2024 10:32am [...] and content) DATE CREATED AUTHOR 03/24/2021 [facility] DATE CREATED AUTHOR AUTHOR'S ORGANIZ ATION 09/01/2022 [facility] ical Center DATE CREATED AUTHOR AUTHOR'S ORGANIZ ATION 10/18/2023 [facility] EPIC DATE CREATED AUTHOR AUTHOR'S ORGANIZ ATION 01/08/2024 [facility] DATE CREATED AUTHOR AUTHOR'S ORGANIZ ATION 02/05/2024 [facility] DATE CREATED AUTHOR AUTHOR'S ORGANIZ ATION 03/24/[address] [facility] ical Center DATE CREATED AUTHOR AUTHOR'S ORGANIZ ATION 03/30/2024 [facility] REASON FOR VISIT (unrecogniz ed section and content) Reason Comments Follow-up [facility] 07/27/23 Reason Comments Med Refill Reason Comments Follow-up [facility] ER 11/20 Care Teams (unrecognized sec tion and content) Team Status: Active Member Role Status Dates Adán Arthur , DO Primary Care Provider Active Team Status: Active Member Role Status Dates Nteo Arauz DO Primary Care Provide r, Attending [...] Emergency Provider Active Start: March 24, 2024 Aádn Arthur DO Primary Care Provider [...] Status: Active Member Role Status Dates Sandor Mcdfufie DO Emergency Provider Active Start: November 19, [...] Adán Arthur DO Primary Care Provi sal, Other Provider Active Start: September 26, 2023 Roberto Singh MD Attending Provider Active Start: September 26, 2023 Team Status: Active Member Role Status Dates Adán Arthur DO Primary Care Provider Active Start: October 05, 2023 Nova Rucker LPN Attending Provider Active Sta rt: October 05, 2023 Team Status: Inactive Member Role Status Dates Kaleigh Nation APRN [facility] Attending Provider Active Start: October 11, 2023 [...] rt: June 24, 2023 Nova Veverka , CELL INSPECTOR Attending Provider Active Sta rt: June 24, 2023 Team Status: Active Member Role Status Dates Neto Arauz DO Primary Care Provider Active Sta rt: July 26, 2023 Saturnino Cortés MD Emergency Provider Active Start: July 26, 2023 Mjeia Aaron MD Admit Provide r, Attending Provider [...] Other Provider Active Start: August 07, 2023 Inside Polisher Relationship Specialty Start Date End Date Neto Arauz DO [facility] [place] [address] PCP - General Family Medicine 08/22/23 Team [...] Attending Provider Active Start: November 18, 2023 Inside Polisher Relationship Specialty Start Date End Date Neto Arauz DO [address] [place] [address] PCP - General Family Medicine 08/22/23 Team [...] March 24, 2024 End: March 28, 2024 Adán Arthur DO Primary Care Provider Active Start: March 24, 2024 End: March 28, 2024 Mejai Aaron MD Admit Provider Active Start: March [...] BE BASED ON THE PRIMARY CLINICAL RECORDS. [employer] [facility]. provides no warranty or guarantee of the accuracy or completeness of information in this document.
--- NOTE | 2024-05-06 12:48 | ED_ITS ---
HPI HPI - Neck Pain/Injury General Chief Complaint: Neck Pain/Injury Stated Complaint: WEAKNESS Time Seen by Provider: 05/06/24 12:41 Source: patient Mode of arrival: ambulance History of Present Illness HPI Narrative: cc = neck pain Pt sent over from the [place] after she developed pain in the posterior neck. She denied any fall or injury and the NH did not report any fall or injury. She said that the pain developed a few days ago and extends toward the upper posterior shoulders/trapezius and the upper back. NH reported that they gave her ativan this morning when she was anxious but has not given her anything for the pain. I saw her last week and diagnosed her with pneumonia. She said that her symptoms are all gone for that . Related Data Home Medications ?Medication ?Instructions ?Recorded ?Confirmed alpha lipoic acid 600 mg capsule 200 mg PO DAILY 08/06/23 05/06/24 amantadine HCl 100 mg tablet 100 mg PO DAILY 08/06/23 05/06/24 aspirin 81 mg capsule 81 mg PO DAILY 08/06/23 05/06/24 atorvastatin 40 mg tablet 40 mg PO BEDTIME 08/06/23 05/06/24 cetirizine 10 mg tablet (24Hour 10 mg PO DAILY allergy symptoms 08/06/2305/01 Allergy) furosemide 40 mg tablet (Lasix) 40 mg PO DAILY 08/06/23 05/06/24 levetiracetam 250 mg tablet 250 mg PO BID 08/06/23 05/06/24 (Keppra) levothyroxine 150 mcg capsule 150 mcg PO DAILY 08/06/23 05/06/24 omega-3 fatty acids 1,000 mg PO DAILY 08/06/23 05/06/24 oxcarbazepine 300 mg tablet 450 mg PO TID 08/06/23 05/06/24 guaifenesin 600 mg tablet, 600 mg PO BID PRN cough 09/15/23 05/06/24 extended release 12 hr (Mucinex) pregabalin 100 mg capsule (Lyrica) 200 mg PO TID 09/15/23 05/06/24 acetaminophen 325 mg tablet (Aphen) 650 mg PO Q6H PRN pain 09/16/23 05/06/24 albuterol sulfate 2.5 mg/3 mL 2.5 mg inhalation Q3H PRN 05/06/24 05/06/24 (0.083 %) solution for nebulization shortness of breath or wheezing albuterol sulfate 90 mcg/actuation 2 puff inhalation Q8H PRN 05/06/24 05/06/24 aerosol inhaler shortness of breath or wheezing carvedilol 3.125 mg tablet 3.125 mg PO BID 05/06/24 05/06/24 cyclobenzaprine 10 mg tablet 10 mg PO BEDTIME PRN pain 05/06/24 05/06/24 fluticasone fur. 200 mcg-umeclid 1 inh inhalation DAILY 05/06/24 05/06/24 62.5 mcg-vilant 25 mcg inhalat.powder (Trelegy Ellipta) lorazepam 0.5 mg tablet 0.5 mg PO BID PRN anxiety 05/06/24 05/06/24 metoclopramide HCl 5 mg tablet 5 mg PO BID 05/06/24 05/06/24 (Reglan) ropinirole 1 mg tablet 1 mg PO BEDTIME 05/06/24 05/06/24 Previous Rx's ?Medication ?Instructions ?Recorded tramadol 50 mg tablet 50 mg PO Q8H PRN pain #14 tabs 05/06/24 Allergies Allergy/AdvReac Type Severity Reaction Status Date / Time Penicillins Allergy Severe Verified 08/06/23 17:57 Sulfa (Sulfonamide AdvReac Unknown Verified 08/06/23 19:01 Antibiotics) Opioid HPI Opioid Management Most Recent Opioid Data: Last Pain Scale 7 05/06/24 13:16 05/06/24 Last MAR Pain Assessment 05/06/24 13:16 Last ORT Total Score 7 09/17/23 16:04 09/17/23 Last ORT Risk Category Moderate Risk 09/17/23 16:04 09/17/23 [facility] Medical History Chronic kidney disease ?N18.9 - Chronic kidney disease, unspecified (ICD-10) Pneumonia ?J18.9 - Pneumonia, unspecified organism (ICD-10) Acute respiratory distress ?R06.03 - Acute respiratory distress (ICD-10) Asthma exacerbation in COPD ?J44.1 - Chronic obstructive pulmonary disease with (acute) exacerbation (ICD-10) ?J45.901 - Unspecified asthma with (acute) exacerbation (ICD-10) COVID-19 ?U07.1 - COVID-19 (ICD-10) CKD stage 3b, GFR 30-44 ml/min ?N18.32 - Chronic kidney disease, stage 3b (ICD-10) CAD (coronary artery disease) ?I25.10 - Atherosclerotic heart disease of [place] coronary artery without angina pectoris (ICD-10) Hypertension ?I10 - Essential (primary) hypertension (ICD-10) Type 2 diabetes mellitus ?E11.9 - Type 2 diabetes mellitus without complications (ICD-10) Chronic hypoxic respiratory failure ?J96.11 - Chronic respiratory failure with hypoxia (ICD-10) Acute kidney injury ?N17.9 - Acute kidney failure, unspecified (ICD-10) COPD (chronic obstructive pulmonary disease) ?J44.9 - Chronic obstructive pulmonary disease, unspecified (ICD-10) Hypercalcemia ?E83.52 - Hypercalcemia (ICD-10) Right lower lobe pneumonia ?J18.9 - Pneumonia, unspecified organism (ICD-10) Hypotension ?I95.9 - Hypotension, unspecified (ICD-10) Respiratory failure ?J96.90 - Respiratory failure, unspecified, unspecified whether with hypoxia or hypercapnia (ICD-10) Nonrheumatic aortic (valve) insufficiency ?I35.1 - Nonrheumatic aortic (valve) insufficiency (ICD-10) Nausea ?R11.0 - Nausea (ICD-10) Weakness ?R53.1 - Weakness (ICD-10) Cough ?R05.9 - Cough, unspecified (ICD-10) Wheezing ?R06.2 - Wheezing (ICD-10) Shortness of breath ?R06.02 - Shortness of breath (ICD-10) Urinary retention ?R33.9 - Retention of urine, unspecified (ICD-10) Acute respiratory distress ?R06.03 - Acute respiratory distress (ICD-10) Sleep apnea ?G47.30 - Sleep apnea, unspecified (ICD-10) Vitamin D deficiency ?E55.9 - Vitamin D deficiency, unspecified (ICD-10) Hyperlipidemia ?E78.5 - Hyperlipidemia, unspecified (ICD-10) Hypothyroidism ?E03.9 - Hypothyroidism, unspecified (ICD-10) Neuropathy ?G62.9 - Polyneuropathy, unspecified (ICD-10) Myocardial infarction type 2 ?I21.A1 - Myocardial infarction type 2 (ICD-10) Acute kidney failure ?N17.9 - Acute kidney failure, unspecified (ICD-10) Pneumonia ?J18.9 - Pneumonia, unspecified organism (ICD-10) Acute cystitis without hematuria ?N30.00 - Acute cystitis without hematuria (ICD-10) Sepsis ?A41.9 - Sepsis, unspecified organism (ICD-10) Surgical History Hx of cholecystectomy ?Z90.49 - Acquired absence of other specified parts of digestive tract (ICD- 10) H/O foot surgery ?Z98.890 - Other specified postprocedural states (ICD-10) H/O right heart catheterization ?Z98.890 - Other specified postprocedural states (ICD-10) H/O: hysterectomy ?Z90.710 - Acquired absence of both cervix and uterus (ICD-10) Previous back surgery ?Z98.890 - Other specified postprocedural states (ICD-10) History of hip surgery ?Z98.890 - Other specified postprocedural states (ICD-10) Family History Mother Family history of CHF (congestive heart failure) Family history of COPD (chronic obstructive pulmonary disease) Family history of cancer Family history of hypertension Family history of myocardial infarction Social History Within the past year, how often did you have a drink containing alcohol: never Score interpretation: A score less than 3 is consistent with normal alcohol consumption. Smoking status: Former smoker Non-prescribed substance use: denies use Previous occupational history: retired Highest level of school completed/degree received: some college, no degree Are you now , , , , never or living with a partner: In a typical week, how many times do you talk on the telephone with family, friends, or neighbors: 3 or more times per week How often do you get together with friends or relatives: 3 or more times per week How often do you attend catholic or adventism services: never Do you belong to any clubs or organizations such as catholic groups unions, fraternal or athletic groups, or school groups: no Total score: 1 Score interpretation: A score of less than or equal to 1 indicates the most socially isolated. Little interest or pleasure in doing things: not at all Feeling down, depressed, or hopeless: not at all Feel stressed/tense/nervous/anxious/difficulty sleeping: not at all Do you think of yourself as: straight/heterosexual Gender Identity: female Exam Narrative Exam Narrative: Nurses note and vital signs reviewed and patient is not hypoxic. She wears 6 L/min nasal cannula oxygen afebrile General: The patient appears well and in no apparent distress. Patient is res ting comfortably on cart. GCS = 15. Skin: Warm, dry, no pallor noted. Head: Normocephalic, atraumatic Neck: Supple, trachea mid-line, no lymphadenopathy. Decreased range of motion, especially right and left rotation, secondary to the pain. She has diffuse bilateral soft tissue cervical paraspinal tenderness. The patient has no midline bony cervical tenderness noted Eyes: PERRLA, EOMI ENT: Both EACs still have wax in them -I cannot visualize the TMs due to the wax Cardiovascular: Regular Rate and Rhythm Respiratory: Patient is in no distress, no accessory muscle use, lungs are clear to auscultation, no wheezing, rales or rhonchi Back: No thoracic vertebral or lumbar vertebral tenderness to palpation. No scapular tenderness. Although she localizes pain to the superior right and left trapezius, she has no tenderness or spasm there. Musculoskeletal: no sign of long bone fracture. Moves all upper extremities without difficulty and with expected strength Neurological: A&O x4, normal equal meal miller strength, normal finger to nose, normal speech, normal coordination, normal motor, normal sensory. Psychiatric: Cooperative Constitutional Vital Signs, click to edit/add: Last Vital Signs Temp 98.8 F 05/06/24 12:39 Pulse 74 05/06/24 12:39 Resp 22 H 05/06/24 12:39 BP 166/54 H 05/06/24 12:39 Pulse Ox 93 L 05/06/24 12:39 O2 Del Method Nasal Cannula 05/06/24 12:39 O2 Flow Rate 6 05/06/24 12:39 Course Vital Signs Vital signs: Vital Signs Temperature 98.8 F 05/06/24 12:39 Pulse Rate 74 05/06/24 12:39 Respiratory Rate 22 H 05/06/24 12:39 Blood Pressure 166/54 H 05/06/24 12:39 Pulse Oximetry 93 L 05/06/24 12:39 Oxygen Delivery Method Nasal Cannula 05/06/24 12:39 Oxygen Delivery Flow Rate 6 05/06/24 12:39 Temperature 98.8 F 05/06/24 12:39 Pulse Rate 74 05/06/24 12:39 Respiratory Rate 22 H 05/06/24 12:39 Blood Pressure 166/54 H 05/06/24 12:39 Pulse Oximetry 93 L 05/06/24 12:39 Oxygen Delivery Method Nasal Cannula 05/06/24 12:39 Oxygen Delivery Flow Rate 6 05/06/24 12:39 MDM - Neck Pain/Injury MDM Narrative Medical decision making narrative: The patient was sent for noncontrast CT scan of the cervical spine and was given Ultram and Robaxin while in the emergency department. CT, per radiologist, did not reveal any worrisome findings. The patient felt better after ED treatment and was discharged back [place] the [place] with prescription for low dose ultram to take for the next few days. Imaging Data ct cervical: Attestation: I have reviewed the pertinent imaging results. Radiologist's impression: ITS Impressions Cervical Spine CT 05/06/24 12:47 IMPRESSION: NO CERVICAL SPINE FRACTURE. MODERATELY SEVERE SPONDYLOSIS C4-T2. EMPHYSEMA. Impression dictated by: Rizwan Crump Jr., D.O.05/06/2024 1:26 PM Dictation Location: [facility] Electronically authenticated by: [id number] Y Date: 05/06/2024 13:26 Discharge Plan Discharge Chief Complaint: Neck Pain/Injury Clinical Impression: Strain of neck muscle, Acute neck pain Patient Disposition: Home, Self-Care Time of Disposition Decision: 13:45 Prescriptions / Home Meds: New tramadol 50 mg tablet 50 mg PO Q8H PRN (Reason: pain) Qty: 14 0RF No Action amantadine HCl 100 mg tablet 100 mg PO DAILY atorvastatin 40 mg tablet 40 mg PO BEDTIME alpha lipoic acid 600 mg capsule 200 mg PO DAILY aspirin 81 mg capsule 81 mg PO DAILY levetiracetam [Keppra] 250 mg tablet 250 mg PO BID levothyroxine 150 mcg capsule 150 mcg PO DAILY omega-3 fatty acids Capsule 1,000 mg PO DAILY oxcarbazepine 300 mg tablet 450 mg PO TID cetirizine [24Hour Allergy] 10 mg tablet 10 mg PO DAILY furosemide [Lasix] 40 mg tablet 40 mg PO DAILY albuterol sulfate 2.5 mg /3 mL (0.083 %) solution for nebulization 2.5 mg inhalation Q3H PRN (Reason: shortness of breath or wheezing) albuterol sulfate 90 mcg/actuation HFA aerosol inhaler 2 puff INHALATION Q8H PRN (Reason: shortness of breath or wheezing) cyclobenzaprine 10 mg tablet 10 mg PO BEDTIME PRN (Reason: pain) lorazepam 0.5 mg tablet 0.5 mg PO BID PRN (Reason: anxiety) carvedilol 3.125 mg tablet 3.125 mg PO BID Rx Instructions: must administer with a meal/food metoclopramide HCl [Reglan] 5 mg tablet 5 mg PO BID ropinirole 1 mg tablet 1 mg PO BEDTIME Trelegy Ellipta 200-62.5-25 mcg blister with device 1 inh inhalation DAILY pregabalin [Lyrica] 100 mg capsule 200 mg PO TID guaifenesin [Mucinex] 600 mg tablet extended release 12hr 600 mg PO BID PRN (Reason: cough) acetaminophen [Aphen] 325 mg tablet 650 mg PO Q6H PRN (Reason: pain) Print Language: [place] Verde[place] Instructions: Cervical Strain (ED), Acute Neck Pain (ED) Referrals: SONG DICKENS DO [Primary Care Provider] - 1 week
[2024-05-06] MEDS: TRAMADOL HCL 50 MG TABLET 100 MG PO (13:16)
[2024-05-06] MEDS: METHOCARBAMOL 500 MG TABLET 1000 MG PO (13:17)
[2024-05-06 15:15] VITALS: PULSE 89; O2SAT 94
== END 2024-05-06 15:17 | disposition home or self-care (01) ==
PROVIDERS: Emergency Provider Emergency Medicine; PCP Family Medicine
DX: S16.1XXA Strain of muscle, fascia and tendon at neck level, initial encounter (principal); M54.2 Cervicalgia; X58.XXXA Exposure to other specified factors, initial encounter; Z87.01 Personal history of pneumonia (recurrent); Z90.49 Acquired absence of other specified parts of digestive tract; Z90.710 Acquired absence of both cervix and uterus; Z87.891 Personal history of nicotine dependence; Z99.81 Dependence on supplemental oxygen
CPT/HCPCS: 72125; 99284